=== PATIENT | male | born 1965 | race Caucasian/White ===

== ENCOUNTER 2019-10-01 22:22 | Emergency (ER) | payer MEDICARE, MEDICAID, SELFPAY ==
--- NOTE | ~2019-10-01 | XR_ITS ---
EXAMINATION: XR chest 2V DATE: 10/01/2019 23:36 INDICATION: Chest pain. TECHNIQUE: Frontal and lateral views of the chest were obtained on 3 radiographs. COMPARISON: CT abdomen and pelvis 02/18/2015 FINDINGS: The chest demonstrates clear lungs without pneumonia, pleural effusion, or pneumothorax. Th e heart size is normal. There are changes of anterior fusion procedure in cervical spine. IMPRESSION: 1. No acute cardiopulmonary disease. Reviewed, dictated and finalized at location A.
--- NOTE | 2019-10-01 22:44 | ECG_ITS ---
Measurements Intervals [place] Rate: 89 P: 255 [place]: 119 QRS: 75 QRSD: 94 T: 70 QT: 369 QTc: 450 Interpretive Statements ECTOPIC ATRIAL RHYTHM INCOMPLETE RIGHT BUNDLE BRANCH BLOCK NONSPECIFIC T-WAVE ABNORMALITY- LATERAL LEADS ABNORMAL ECG Electronically Signed On 10-03-2019 7:38:43 CDT by David Stokes D.O.
[2019-10-01 22:50] VITALS: BP 125/81; PULSE 89; RESP 16; TEMP 36.7; O2SAT 97
[2019-10-01] MEDS: ASPIRIN 81 MG CHEWABLE TABLET 324 MG PO (23:14)
[2019-10-01] MEDS: ONDANSETRON INJ 4 MG/2 ML VIAL IV PUSH (23:14)
[2019-10-01 23:23] LABS: D Dimer 0.19 mg/L (0.19-0.50); Partial Thromboplastin Time 24.5 SEC (22.3-31.6); Prothrombin Time 10.7 Seconds (9.64-11.0)
[2019-10-01 23:25] LABS: Lactic Acid 1.3 mmol/L (0.4-2.0)
[2019-10-01 23:26] LABS: BNP < 5.0 pg/mL (0-100)
[2019-10-01] MEDS: MORPHINE SULFATE 4 MG/ML INJ IV PUSH (23:32)
[2019-10-01 23:33] LABS: Alanine Aminotransferase 44 U/L (16-63); Albumin Level 3.4 g/dL (3.4-5.0); Alkaline Phosphatase 80 U/L (46-116); Anion Gap 10.8 mmol/L (7-16); Aspartate Amino Transferase 29 U/L (15-37); Bilirubin,Total 0.4 mg/dL (0.00-1.00); Blood Urea Nitrogen 18 mg/dL (7-18); CRP 0.3 mg/dL (0.0-0.9); Carbon Dioxide 30 mmol/L (21-32); Chloride 101 mmol/L (98-108); Estimated Glomerular Filt Rate > 60; Glucose 102 mg/dL (70-99); Lipase 163 U/L (73-393); Magnesium 1.8 mg/dL (1.8-2.4); Osmolality Calculated 287 mOsm/kg (285-295); Potassium 3.8 mmol/L (3.5-5.1); Sodium 138 mmol/L (136-145); Thyroid Stimulating Hormone 2.29 uIU/mL (0.36-3.74); Total Protein 7.4 g/dL (6.4-8.2); Troponin I < 0.02 ng/mL (0.00-0.056)
--- NOTE | 2019-10-01 23:35 | PC.NURSE ---
pt to xray via wheelchair
[2019-10-01 23:38] VITALS: PULSE 89
[2019-10-01] MEDS: KETOROLAC 30 MG/ML VIAL (*BKC) IV PUSH (23:58)
[2019-10-02 00:01] VITALS: BP 140/90; PULSE 93; RESP 18; TEMP 37.1; O2SAT 98
--- NOTE | 2019-10-02 00:04 | ED.CHESTPAIN ---
HPI - Chest Pain General Chief Complaint: Chest Pain Stated Complaint: chest pain Source: patient Mode of arrival: ambulatory Limitations: no limitations History of Present Illness HPI narrative: this is a 54-year-old gentleman that presents with chest pain atypical in nature with no radiation sharp with deep inspiration he rates at a 9/10 that started about 5 this afternoon in constant does not radiate to his back there is no diaphoresis no abdominal pain no nausea or vomiting no diarrhea constipation. There is no family history of heart disease patient does not have a personal history of heart disease, does have history of hyperlipidemia anxiety depression hypothyroidism. MD complaint: chest pain Onset (ago): hour(s) Timing of current episode: constant Prior episodes: No Onset: other ( With deep inspiration) Pain location: left chest Pain radiation: none Severity: moderate Pain scale (0-10): 9 Quality: sharp Relieving factors: medication-other Exacerbating factors: inspiration Related Data Home Medications Medication Instructions Recorded Confirmed cyclobenzaprine 10 mg PO TID PRN 10/01/19 10/01/19 epinephrine 0.3 ml IM PRN PRN 10/01/19 10/01/19 escitalopram oxalate 20 mg PO DAILY 10/01/19 10/01/19 hydrocodone-acetaminophen 1 tablet PO TID PRN 10/01/19 10/01/19 levothyroxine 75 mcg PO DAILY 10/01/19 10/01/19 olanzapine 20 mg PO DAILY 10/01/19 10/01/19 Allergies Allergy/AdvReac Type Severity Reaction Status Date / Time gabapentin AdvReac Intermediate Confusion Verified 09/25/17 13:24 Bumble Bee Allergy Severe Anaphylactic Uncoded 09/25/17 13:23 Shock Review of Systems Review of Systems: All systems reviewed & are unremarkable except as noted in HPI and below [facility] Past Medical History Medical History Depression HLD (hyperlipidemia) Hypothyroidism (acquired) Exam Const: General: no acute distress and alert Orientation/consciousness: patient oriented x3 HENMT: Head: normal to inspection Eyes: Conjunctivae: conjunctivae normal Pupils: Equal, round and reactive pupils present EOM: EOMs intact bilaterally Neck: Neck: normal visual inspection, no lymphadenopathy and no meningeal signs Chest: Chest palpation & inspection: normal inspection of the chest Resp: Effort & Inspection: normal respiratory effort Auscultation: clear to auscultation bilaterally Cardio: Rate: regular rate Rhythm: regular rhythm GI: Auscultation: normal bowel sounds Back/Spine/Pelvis: Back: no CVA tenderness Skin: General skin exam: normal color Rashes: no rashes Neuro: General: patient oriented x3 and moves all extremities Extrem: General: normal to inspection Course Course Emergency Course: after receiving 4 mg morphine the patient's pain level is ease to F 5/10 from a 11/30 and offered 30 mg IV Toradol. Patient is more comfortable no acute distress with some no shortness of breath no diaphoresis no nausea vomiting. Vital Signs Vital signs: Vital Signs Temperature 36.7 C 10/01/19 22:50 Pulse Rate 89 10/01/19 22:50 Respiratory Rate 16 10/01/19 22:50 Blood Pressure 125/81 10/01/19 22:50 Pulse Oximetry 97 10/01/19 22:50 Temperature 37.1 C 10/02/19 00:01 Pulse Rate 93 10/02/19 00:01 Respiratory Rate 18 10/02/19 00:01 Blood Pressure 140/90 10/02/19 00:01 Pulse Oximetry 98 10/02/19 00:01 MDM - Chest Pain Lab Data Attestation: I reviewed the patient's lab results. Result diagrams: 10/01/19 23:01 Labs: Lab Results 10/01/19 10/01/19 10/01/19 Range/Units 23:01 23:01 23:01 PT 10.7 (9.64-11.0) Seconds INR 1.0 APTT 24.5 (22.3-31.6) SEC D-Dimer 0.19 (0.19-0.50) mg/L Sodium 138 (136-145) mmol/L Potassium 3.8 (3.5-5.1) mmol/L Chloride 101 (98-108) mmol/L Carbon Dioxide 30 (21-32) mmol/L Anion Gap 10.8 (7-16) mmol/L BUN 18 (7-18) mg/dL Creatinine
[2019-10-02 00:09] VITALS: PULSE 73
[2019-10-02 00:14] LABS: Add Urine Microscopic? NO; Appearance Urine Clear (Clear); Bilirubin Urine Negative (Negative); Blood Urine Negative (Negative); Color Urine Yellow (Yellow); Glucose Urine UA Negative (Negative); Ketones Urine Negative (Negative); Leukocyte Esterase Ur Negative (Negative); Nitrate Urine Negative (Negative); Protein Urine Negative (Negative); Urobilinogen Urine 0.2 mg/dL (0.2-1.0); pH Urine 6.5 (5.0-8.0)
[2019-10-02 00:27] VITALS: BP 123/74; PULSE 78; RESP 20; TEMP 37.1; O2SAT 98
== END 2019-10-02 00:34 | disposition home or self-care (01) ==
PROVIDERS: Emergency Provider Emergency Medicine; PCP Physician Assistant
DX: R07.89 Other chest pain (principal); R09.1 Pleurisy; E78.5 Hyperlipidemia, unspecified; E03.9 Hypothyroidism, unspecified
CPT/HCPCS: 36415; 71046; 80053; 81003; 83605; 83690; 83735; 83880; 84443; 84484; 85380; 85610; 85730; 86140; 93005; 96374; 96375; 99284; A9270; J1885; J2270; J2405

== ENCOUNTER 2020-03-01 18:36 | Emergency (ER) | payer MEDICARE, MEDICAID, SELFPAY ==
--- NOTE | ~2020-03-01 | XR_ITS ---
EXAMINATION: XR foot LT 2V INDICATION: Left foot pain TECHNIQUE: Two views of the left foot are obtained. COMPARISON: 12/10/2018 FINDINGS: Previously identified orthopedic hardware has been largely removed. A retained screw fragme nt is seen in the calcaneus. 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 No acute fracture is identified. The soft tissues are unremarkable. IMPRESSION: 1. No acute osseous abnormality. Reviewed, dictated and finalized at location A. NERY OPERATOR [employer]
--- NOTE | ~2020-03-01 | XR_ITS ---
EXAMINATION: XR ankle LT 2V DATE: 03/01/2020 19:59 INDICATION: Left ankle pain TECHNIQUE: Two views of the left ankle are obtained.. COMPARISON: 12/10/2018 FINDINGS: There has been interval removal of much of the previously identified orthopedic hardware. A screw fragment persists in the calcaneus. There is severe chronic posttraumatic arthritis of the pro ximal and midfoot. No definite acute abnormality is identified. IMPRESSION: 1. No acute osseous abnormality. Reviewed, dictated and finalized at location A. UCTION OPERATOR
[2020-03-01 19:38] VITALS: BP 166/89; PULSE 82; RESP 18; TEMP 37.1; O2SAT 98
--- NOTE | 2020-03-01 20:23 | ED.LOWEXIN ---
HPI - Extremity Injury (Lower) General Chief Complaint: Extremity Injury, Lower Stated Complaint: ankle pain Source: patient Mode of arrival: ambulatory Limitations: no limitations History of Present Illness HPI Narrative: This is a 54-year-old gentleman with a history of some left ankle pain and foot pain after he inverted it approximately 1 to 2 days ago did not try anything [id number] for pain and there is some mild swelling and bruising on the lateral aspect of his left ankle and foot but has good pedal pulses and good range of note motion in his foot and ankle with a tenderness with palpation with no numbness or tingling. complaint: ankle injury and foot injury Onset (ago): day(s) Type of Injury: inversion Place: home Severity: moderate Severity scale (1-10): 6 Relieving factors: nothing Exacerbating factors: weight bearing and movement Other symptoms: none Related Data Home Medications Medication Instructions Recorded Confirmed cyclobenzaprine 10 mg PO TID PRN 10/01/19 10/01/19 epinephrine 0.3 ml IM PRN PRN 10/01/19 10/01/19 escitalopram oxalate 20 mg PO DAILY 10/01/19 10/01/19 hydrocodone-acetaminophen 1 tablet PO TID PRN 10/01/19 10/01/19 levothyroxine 75 mcg PO DAILY 10/01/19 10/01/19 olanzapine 20 mg PO DAILY 10/01/19 10/01/19 Allergies Allergy/AdvReac Type Severity Reaction Status Date / Time gabapentin AdvReac Intermediate Confusion Verified 09/25/17 13:24 Bumble Bee Allergy Severe Anaphylactic Uncoded 09/25/17 13:23 Shock Review of Systems Review of Systems: All systems reviewed & are unremarkable except as noted in HPI and below [facility] Past Medical History Medical History (Updated 03/01/20 @ 20:27 by Paul Francois MD) Depression HLD (hyperlipidemia) Hypothyroidism (acquired) Exam Const: General: no acute distress and alert Orientation/consciousness: patient oriented x3 HENMT: Head: normal to inspection Eyes: Conjunctivae: conjunctivae normal Pupils: Equal, round and reactive pupils present Neck: Neck: normal visual inspection, no lymphadenopathy and no meningeal signs Chest: Chest palpation & inspection: normal inspection of the chest Resp: Effort & Inspection: normal respiratory effort Auscultation: clear to auscultation bilaterally Cardio: Rate: regular rate Rhythm: regular rhythm GI: GI Palp: Yes Soft to palpation Auscultation: normal bowel sounds Back/Spine/Pelvis: Back: no CVA tenderness Skin: General skin exam: normal color Other: Bruising and mild swelling in the lateral malleoli of his left ankle and foot Neuro: General: patient oriented x3 Extrem: Other: tenderness in the lateral malleoli of his left ankle Psych: Mental Status: mental status grossly normal Affect: normal affect Course Course Emergency Course: patient given pain medication pain has improved, reviewed x-rays with the patient mention the were no fractures and to follow-up with primary ca Vital Signs Vital signs: Vital Signs Temperature 37.1 C 03/01/20 19:38 Pulse Rate 82 03/01/20 19:38 Respiratory Rate 18 03/01/20 19:38 Blood Pressure 166/89 H 03/01/20 19:38 Pulse Oximetry 98 03/01/20 19:38 Temperature 37.1 C 03/01/20 19:38 Pulse Rate 82 03/01/20 19:38 Respiratory Rate 18 03/01/20 19:38 Blood Pressure 166/89 H 03/01/20 19:38 Pulse Oximetry 98 03/01/20 19:38 Critical Care Time Critical Care Time Critical Care Time: No Discharge Plan Discharge Clinical Impression: Ankle sprain and strain Patient Disposition: Home, Self-Care Condition: Stable Instructions: Antibiotic Form, Ankle Sprain (ED) Additional Instructions: take medicine as prescribed and follow-up with primary care physician within 1 to 2 weeks further evaluation and treatment Prescriptions: New naproxen 500 mg tablet 500 mg PO BID Qty: 14 RF: 0 No Action cyclobenzaprine 10 mg tablet 10 mg PO TID PRN (Reason: Pain) RF: 0 hydrocodone-
[2020-03-01] MEDS: KETOROLAC (*BKC) 60 MG/2 ML VIAL IM (20:35)
== END 2020-03-01 21:00 | disposition home or self-care (01) ==
PROVIDERS: Emergency Provider Emergency Medicine; PCP Physician Assistant
DX: S93.402A Sprain of unspecified ligament of left ankle, initial encounter (principal)
CPT/HCPCS: 73600; 73620; 96372; 99283; J1885

== ENCOUNTER 2020-03-08 13:39 | Outpatient (CLI) | payer MEDICARE, MEDICAID, SELFPAY ==
--- NOTE | 2020-03-08 15:00 | NEURO_ITS ---
Impression: # Complains of numbness and weakness of upper extremities. # No Carpal Tunnel Syndrome. # No ulnar neuropathy. # Normal nerve conduction study. # Normal needle/EMG exam. # Clinical correlation recommended. Nerve Conduction Studies Anti Sensory Summary Table Stim Site NR Peak (ms) P-T Amp (?V) Site1 Site2 Delta-P (ms) Dist (cm) Roberto (m/s) Left Median Anti Sensory (2-3nd Digit) Wrist 2.9 34.9 Wrist 2-3nd Digit 2.9 14.0 48 Wrist 2.9 27.7 Wrist 2-3nd Digit 2.9 14.0 48 Right Median Anti Sensory (2-3nd Digit) Wrist 2.9 38.0 Wrist 2-3nd Digit 2.9 14.0 48 Wrist 2.9 39.5 Wrist 2-3nd Digit 2.9 14.0 48 Left Radial Anti Sensory (Base 1st Digit) Wrist 2.3 14.5 Wrist Base 1st Digit 2.3 0.0 Right Radial Anti Sensory (Base 1st Digit) Wrist 3.1 5.6 Wrist Base 1st Digit 3.1 0.0 Left Ulnar Anti Sensory (5th Digit) Wrist 2.7 41.5 Wrist 5th Digit 2.7 14.0 52 Right Ulnar Anti Sensory (5th Digit) Wrist 2.5 26.5 Wrist 5th Digit 2.5 14.0 56 Motor Summary Table Stim Site NR Onset (ms) O-P Amp (mV) Site1 Site2 Delta-0 (ms) Dist (cm) Roberto (m/s) Left Median Motor (Abd Poll Brev) Wrist 3.0 6.0 Elbow Wrist 5.2 30.0 58 Elbow 8.2 4.6 Right Median Motor (Abd Poll Brev) Wrist 3.5 2.8 Elbow Wrist 5.0 29.0 58 Elbow 8.5 1.6 Left Ulnar Motor (Abd Dig Minimi) Wrist 2.2 8.2 A Elbow Wrist 5.9 33.0 56 A Elbow 8.1 6.3 Right Ulnar Motor (Abd Dig Minimi) Wrist 2.6 4.7 A Elbow Wrist 5.5 31.0 56 A Elbow 8.1 3.9 F Wave Studies NR F-Lat (ms) L-R F-Lat (ms) Left Median (Mrkrs) (Abd Poll Brev) 28.79 0.85 Right Median (Mrkrs) (Abd Poll Brev) 29.64 0.85 Left Ulnar (Mrkrs) (Abd Dig Min) 28.23 0.12 Right Ulnar (Mrkrs) (Abd Dig Min) 28.34 0.12 EMG Side Muscle Nerve Root Ins Act Fibs Amp Dur Recrt Comment Right 1stDorInt Ulnar C8-T1 Nml Nml Nml Nml Nml Right Ext Indicis Radial (Post Int) C7-8 Nml Nml Nml Nml Nml Right Ext Digitorum Radial (Post Int) C7-8 Nml Nml Nml Nml Nml Right BrachioRad Radial C5-6 Nml Nml Nml Nml Nml Right PronatorTeres Median C6-7 Nml Nml Nml Nml Nml Right Abd Poll Brev Median C8-T1 Nml Nml Nml Nml Nml Left 1stDorInt Ulnar C8-T1 Nml Nml Nml Nml Nml Left Ext Indicis Radial (Post Int) C7-8 Nml Nml Nml Nml Nml Left Ext Digitorum Radial (Post Int) C7-8 Nml Nml Nml Nml Nml Left BrachioRad Radial C5-6 Nml Nml Nml Nml Nml Left PronatorTeres Median C6-7 Nml Nml Nml Nml Nml Left Abd Poll Brev Median C8-T1 Nml Nml Nml Nml Nml MTDD
== END 2020-03-08 13:40 | disposition home or self-care (01) ==
PROVIDERS: PCP Physician Assistant; Visit Provider Psychiatry & Neurology Neurology
DX: M62.9 Disorder of muscle, unspecified (principal)
CPT/HCPCS: 95886; 95911

== ENCOUNTER 2021-04-22 23:08 | Emergency (ER) | payer MEDICARE, MEDICAID, SELFPAY ==
--- NOTE | ~2021-04-22 | XR_ITS ---
EXAMINATION: XR chest 1V portable EXAM DATE: 04/22/2021 23:53 INDICATION: dyspnea,PUI COVID19, cough, fatigue. TECHNIQUE: Portable AP frontal chest x-ray was obtained. Comparison is made to prior examination from 10/01/2019. FINDINGS: Small amount of left basilar opacities, appearance most consistent with subsegmental atelec tasis. The lungs are otherwise clear. There are no pleural effusions. The cardiomediastinal silhoue tte is within normal limits. There is no pneumothorax suspected. The bones and soft tissues are unr emarkable. IMPRESSION: Small amount of left basilar opacities, appearance most consistent with subsegmental atel ectasis. Reviewed, dictated and finalized at location G. IT PRODUCT ANALYST IMPRESSION: Small amount of left basilar opacities, appearance most consistent with subsegmental atelectasis.
[2021-04-22 23:18] VITALS: BP 108/59; PULSE 69; RESP 18; TEMP 36.6; O2SAT 98
[2021-04-23] MEDS: SODIUM CHLORIDE 0.9% IV 1,000 ML 999 ML IV CONT (00:08)
[2021-04-23] MEDS: ACETAMINOPHEN 500 MG TABLET 1000 MG PO (00:08)
--- NOTE | 2021-04-23 00:34 | ED.GENADULT ---
HPI - General Adult General Chief complaint: Unspecified Stated complaint: SOB Time Seen by Provider: 04/23/21 00:34 Source: patient History of Present Illness HPI narrative: this is a 55-year-old gentleman presents with body aches nasal congestion with fever chills, and vaccinated for COVID currently no shortness of breath no nausea vomiting no abdominal pain no chest pain no diarrhea or constipation. Onset (ago): day(s) Severity: mild and moderate Related Data Home Medications Medication Instructions Recorded Confirmed epinephrine 0.3 ml IM PRN PRN 10/01/19 04/22/21 escitalopram oxalate 20 mg PO DAILY 10/01/19 04/22/21 levothyroxine 75 mcg PO DAILY 10/01/19 04/22/21 olanzapine 20 mg PO DAILY 10/01/19 04/22/21 lithium carbonate 150 mg capsule 150 mg PO QID 09/11/20 04/22/21 Allergies Allergy/AdvReac Type Severity Reaction Status Date / Time gabapentin AdvReac Intermediate Confusion Verified 04/22/21 23:17 Bumble Bee Allergy Severe Anaphylactic Uncoded 02/20/21 15:53 Shock Review of Systems Review of Systems: All systems reviewed & are unremarkable except as noted in HPI and below PMFSH Past Medical History Medical History Depression HLD (hyperlipidemia) Hypothyroidism (acquired) Surgical History Surgical History H/O arthrodesis Social History Social History Smoking status: Never smoker Alcohol intake: never Exam Const: General: cooperative, healthy appearing, comfortable, no acute distress and well developed HENMT: Head: normal to inspection Ears: hearing grossly normal bilaterally General nose exam: Normal external nose present Face and sinus: normal facial exam Mouth: Yes Normal oral and palatal mucosa present Throat: posterior oropharynx normal Eyes: General: appearance normal, both eyes and all related structures Conjunctivae: conjunctivae normal Sclera: sclerae normal Pupils: Equal, round and reactive pupils present Neck: Neck: normal visual inspection, full ROM, no lymphadenopathy and no meningeal signs Chest: Chest palpation & inspection: normal inspection of the chest Resp: Effort & Inspection: normal respiratory effort and able to speak in complete sentences Auscultation: clear to auscultation bilaterally Cardio: Jugular venous distension: no JVD Palpation: normal PMI Rate: regular rate Rhythm: regular rhythm GI: Inspection: normal to inspection Back/Spine/Pelvis: Back: no CVA tenderness Skin: General skin exam: normal color and no rashes or lesions noted Neuro: General: oriented to person, oriented to place and oriented to time Extrem: General: normal to inspection and full ROM Right lower extremity: normal to inspection Left lower extremity: normal to inspection Psych: Appearance: grossly normal and well kempt Course Course Emergency Course: Labs reviewed x-rays reviewed and t positive for COVID, patient received IV fluids and Tylenol. Vital Signs Vital signs: Vital Signs Temperature 36.6 C 04/22/21 23:18 Pulse Rate 69 04/22/21 23:18 Respiratory Rate 04/22/21 23:18 Blood Pressure 108/59 L 04/22/21 23:18 Pulse Oximetry 98 04/22/21 23:18 Temperature 36.6 C 04/22/21 23:18 Pulse Rate 69 04/22/21 23:18 Respiratory Rate 04/22/21 23:18 Blood Pressure 108/59 L 04/22/21 23:18 Pulse Oximetry 98 04/22/21 23:18 Medical Decision Making Vital Signs Vital Signs: Vital Signs Temperature 36.6 C 04/22/21 23:18 Pulse Rate 04/22/21 23:18 Respiratory Rate 04/22/21 23:18 Blood Pressure 108/59 L 04/22/21 23:18 Pulse Oximetry 98 04/22/21 23:18 Temperature 36.6 C 04/22/21 23:18 Pulse Rate 04/22/21 23:18 Respiratory Rate 04/22/21 23:18 Blood Pressure 108/59 L 04/22/21 23:18 Pulse Oximetry 98 04/22/21 23:18 Lab Da
[2021-04-23 00:39] LABS: Basophils Absolute Auto 0.02 K/mm3 (0.00-0.10); Basophils Percent Auto 0.4 % (0.0-1.0); Eosinophils Absolute Auto 0.23 K/mm3 (0.02-0.50); Eosinophils Percent Auto 4.2 % (1.0-6.0); Hematocrit 37.1 % (40.0-54.0); Hemoglobin 12.1 g/dL (14.0-18.0); Immature Granulocyte Absolute 0.03 K/mm3 (0.00-0.00); Immature Granulocyte Percent A 0.5 % (0.0-0.0); Immature Platelet Fraction Pct 7.9 % (1.0-7.0); Lymphocytes Absolute Auto 1.77 K/mm3 (1.10-4.50); Lymphocytes Percent Auto 32.2 % (18.0-42.0); Mean Corpuscular HGB Conc 32.6 g/dL (32.0-36.0); Mean Corpuscular Volume 95.1 fL (78.0-102.0); Mean Platelet Volume 12.4 fl (8.7-11.0); Monocytes Absolute Auto 0.73 K/mm3 (0.10-0.90); Monocytes Percent Auto 13.3 % (2.0-11.0); Neutrophils Absolute Auto 2.7 K/mm3 (1.7-7.2); Neutrophils Percent Auto 49.4 % (50.0-70.0); Red Cell Distribution Width 12.4 % (11.6-14.4); White Blood Count 5.5 K/mm3 (4.8-10.8)
[2021-04-23 01:05] LABS: Platelet Count Result 72 K/mm3 (150-420)
[2021-04-23 01:09] LABS: Influenza A QL RT-PCR Negative (Negative); Influenza B QL RT-PCR Negative (Negative); SARS-CoV-2 RNA PCR Positive (Negative)
[2021-04-23 01:16] LABS: Alanine Aminotransferase 30 U/L (16-63); Albumin Level 3.9 g/dL (3.4-5.0); Alkaline Phosphatase 135 U/L (46-116); Anion Gap 10 mmol/L (8-16); Aspartate Amino Transferase 24 U/L (15-37); Bilirubin,Total 0.3 mg/dL (0.00-1.00); Blood Urea Nitrogen 24 mg/dL (7-18); Calcium 8.8 mg/dL (8.5-10.1); Carbon Dioxide 21 mmol/L (21-32); Chloride 99 mmol/L (98-108); Estimated CRCL calculation 50 ml/min; Estimated Glomerular Filt Rate 42; Glucose 84 mg/dL (70-99); Osmolality Calculated 273 mOsm/kg (285-295); Potassium 4.2 mmol/L (3.5-5.1); Sodium 130 mmol/L (136-145); Total Protein 7.6 g/dL (6.4-8.2)
[2021-04-23 01:20] LABS: Add Urine Microscopic? NO; Appearance Urine Clear (Clear); Bilirubin Urine Negative (Negative); Blood Urine Negative (Negative); Color Urine Light Yellow (Yellow); Glucose Urine UA Negative (Negative); Ketones Urine Negative (Negative); Leukocyte Esterase Ur Negative (Negative); Nitrate Urine Negative (Negative); Protein Urine Negative (Negative); Specific Grav Ur <= 1.005 (1.010-1.020); Urobilinogen Urine 0.2 mg/dL (0.2-1.0)
[2021-04-23 01:58] VITALS: BP 110/78; PULSE 64; RESP 16; TEMP 36.7; O2SAT 99
== END 2021-04-23 02:00 | disposition home or self-care (01) ==
PROVIDERS: Emergency Provider Emergency Medicine; PCP Physician Assistant
DX: U07.1 COVID-19 (principal); E78.5 Hyperlipidemia, unspecified; E03.9 Hypothyroidism, unspecified
CPT/HCPCS: 36415; 36600; 71045; 80053; 81003; 85025; 85055; 87502; 96360; 96361; 99283; C9803; J7030; U0003; U0005

== ENCOUNTER 2021-04-30 16:12 | Inpatient (IN) | payer MEDICARE, MEDICAID, SELFPAY ==
[2021-04-30] VITALS (8 sets, daily range): BP systolic 89–111; BP diastolic 43–59; PULSE 65–79; RESP 16–22; TEMP 36.4–37.4; O2SAT 97–100; BMI 26.8
--- NOTE | ~2021-04-30 | XR_ITS ---
EXAMINATION: XR chest 1V portable DATE: 04/30/2021 18:05 INDICATION: Central chest pain. Weakness. TECHNIQUE: A single frontal view of the chest was obtained. COMPARISON: Chest single view 04/22/2021, CT abdomen and pelvis 02/18/2015 FINDINGS: There is mild atelectasis at left lung base. No pleural effusion or pneumothorax. The heart size is normal. There are changes of anterior fusion procedure in cervical spine. IMPRESSION: 1. Mild atelectasis at left lung base. Reviewed, dictated and finalized at location A. LAYER DRAINAGE
--- NOTE | ~2021-04-30 | XR_ITS ---
EXAMINATION: XR chest 1V portable DATE: 05/01/2021 16:39 INDICATION: Syncope. COVID-19 positive. TECHNIQUE: A single frontal view of the chest was obtained. COMPARISON: Chest single view 04/30/2021, CT abdomen and pelvis 02/18/2015 FINDINGS: There are airspace opacities at left lung base. No pleural effusion or pneumothorax. The he art size is normal. IMPRESSION: 1. Stable airspace opacities at left lung base, consistent with atelectasis or less likely pneumonia. Reviewed, dictated and finalized at location E. TYPE ARTIST
--- NOTE | ~2021-04-30 | CT_ITS ---
EXAMINATION: CT brain wo con EXAM DATE: 05/01/2021 10:27 INDICATION: Cognitively AMS, delayed and slurred speech, hand tremors . TECHNIQUE: Spiral CT of the head was performed without contrast. Axial, coronal and sagittal images were reviewed. The dose-length product (DLP) for this examination was 605.33 mGy-cm. The exposure w as tailored according to patient size, and iterative reconstruction (ASIR) was used as additional dos e reduction technique. There is no prior study for comparison. FINDINGS: There is no acute intraparenchymal hemorrhage. No evidence of intraparenchymal brain mass lesion. No evidence of acute infarction. There is no mass effect or midline shift. The ventricles are normal in size. There are no extra-axial collections. There are no acute calvarial fractures. T he orbits are unremarkable. Soft tissue is unremarkable. The visualized sinuses and mastoid air william ls are well aerated. IMPRESSION: No acute intracranial findings. Reviewed, dictated and finalized at location B. AI CULTURIST
--- NOTE | 2021-04-30 16:17 | ED.WEAKNESS ---
HPI - Weakness General Chief complaint: Syncope Stated complaint: AMB Time Seen by Provider: 04/30/21 16:24 Source: patient Mode of arrival: EMS Limitations: no limitations History of Present Illness HPI Narrative: 53-year-old man history of hyperlipidemia brought to the emergency department by EMS after his called 911 because he was weak and falling. Patient states that he did not lose consciousness has had several falls over the last few days due to weakness. He was diagnosed with COVID 1 week ago. He also stated that his blood oxygen levels at home were low. he states that he has been having some intermittent chest pressure over the last 2 days. He denies vomiting, diarrhea, seizures, shortness of breath. He had left calcaneal surgery 1 month ago. MD Complaint: generalized weakness and lack of energy Onset (ago): day(s) (2) Duration: constant and progressively worsening Location: generalized Migration: none Severity: moderate Quality: other (pressure) Relieving factors: none Exacerbating factors: none Context: recent illness Associated symptoms: chest pain Related Data Home Medications Medication Instructions Recorded Confirmed epinephrine 0.3 ml IM PRN PRN 10/01/19 04/30/21 escitalopram oxalate 20 mg PO DAILY 10/01/19 04/30/21 levothyroxine 75 mcg PO DAILY 10/01/19 04/30/21 olanzapine 20 mg PO DAILY 10/01/19 04/30/21 lithium carbonate 150 mg capsule 150 mg PO QID 09/11/20 04/30/21 amlodipine 5 mg PO DAILY 04/30/21 04/30/21 lisinopril 20 mg PO DAILY 04/30/21 04/30/21 Allergies Allergy/AdvReac Type Severity Reaction Status Date / Time gabapentin AdvReac Intermediate Confusion Verified 04/30/21 16:29 Bumble Bee Allergy Severe Anaphylactic Uncoded 04/30/21 16:29 Shock Review of Systems Review of Systems: All systems reviewed & are unremarkable except as noted in HPI and below Constitutional: Constitutional: Denies chills, Reports fatigue, Denies fever(s) and Reports weakness Eyes: Eyes: Denies change in vision ENT: Denies nasal congestion and Denies sore throat Cardiovascular: Cardiovascular: Reports chest pain and Denies radiating jaw, neck or arm pain Respiratory: Respiratory: Denies cough, Denies dyspnea and Denies wheezing Gastrointestinal: Gastrointestinal: Denies abdominal pain, Denies diarrhea, Denies nausea and Denies vomiting Musculoskeletal: Musculoskeletal: Reports back pain (chronic cervical pain), Reports arthralgias and Denies joint swelling Integumentary/Breasts: Skin/Breast: Denies pruritus, Denies erythema and Denies rash Neurologic: Denies vertigo, Reports dizziness, Denies syncope and Reports weakness PMFSH Past Medical History Medical History Depression HLD (hyperlipidemia) Hypothyroidism (acquired) Surgical History Surgical History H/O arthrodesis Social History Social History Smoking status: Never smoker Alcohol intake: never Exam Const: General: alert and ill appearing (mild) acutely Nutritional Appearance: well nourished Orientation/consciousness: patient oriented x3 Limitations: no limitations Other: for [id number] acute distress. HENMT: Head: normal to inspection Ears: external ears normal, TM's normal bilaterally and EAC's normal General nose exam: Normal nares present Face and sinus: normal facial exam Mouth: Yes moist mucous membranes Throat: posterior oropharynx normal Eyes: Conjunctivae: conjunctivae normal Pupils: Equal, round and reactive pupils present EOM: EOMs intact bilaterally Resp: Effort & Inspection: normal respiratory effort and not labored Auscultation: clear to auscultation bilaterally, no rales, no rhonchi and no wheezes Cardio: Rate: regular rate Rhythm: regular rhythm Heart sounds: no murmurs GI: GI Palp: Yes Soft to palpation and No Tendernes
--- NOTE | 2021-04-30 16:19 | ECG_ITS ---
Measurements Intervals [place] Rate: 66 P: 60 [place]: 172 QRS: 68 QRSD: 95 T: 41 QT: 420 QTc: 441 Interpretive Statements SINUS RHYTHM INCOMPLETE RIGHT BUNDLE BRANCH BLOCK BASELINE ARTIFACT- I, II, AVR, AVL, AVF, V1-V6 BORDERLINE ECG Electronically Signed On 04-30-2021 16:48:08 ENGLISH PROFESSOR by David Stokes D.O.
[2021-04-30] MEDS: SODIUM CHLORIDE 0.9% IV 1,000 ML 999 ML IV CONT (16:40)
[2021-04-30 16:58] LABS: Basophils Absolute Auto 0.04 K/mm3 (0.00-0.10); Basophils Percent Auto 0.3 % (0.0-1.0); Eosinophils Absolute Auto 0.57 K/mm3 (0.02-0.50); Eosinophils Percent Auto 4.2 % (1.0-6.0); Hematocrit 35.1 % (40.0-54.0); Hemoglobin 11.4 g/dL (14.0-18.0); Immature Granulocyte Absolute 0.05 K/mm3 (0.00-0.00); Immature Granulocyte Percent A 0.4 % (0.0-0.0); Lymphocytes Percent Auto 12.4 % (18.0-42.0); Mean Corpuscular HGB Conc 32.5 g/dL (32.0-36.0); Mean Corpuscular Hemoglobin 31.2 pg (27.0-31.0); Mean Corpuscular Volume 96.2 fL (78.0-102.0); Mean Platelet Volume 11.8 fl (8.7-11.0); Monocytes Percent Auto 7.3 % (2.0-11.0); Neutrophils Absolute Auto 10.4 K/mm3 (1.7-7.2); Neutrophils Percent Auto 75.4 % (50.0-70.0); Platelet Count Result 252 K/mm3 (150-420); Red Blood Count 3.65 M/mm3 (4.70-6.10); Red Cell Distribution Width 12.4 % (11.6-14.4); White Blood Count 13.7 K/mm3 (4.8-10.8)
[2021-04-30] MEDS: ASPIRIN 81 MG CHEWABLE TABLET 243 MG PO (16:58)
[2021-04-30] MEDS: ONDANSETRON INJ 4 MG/2 ML VIAL IV PUSH (16:58)
--- NOTE | 2021-04-30 17:04 | PC.NURSE ---
Pt attempted to urinate. Pt unable to at this time. Will attempt again
[2021-04-30 17:18] LABS: D Dimer 0.32 mg/L (0.19-0.50); INR 1.1; Partial Thromboplastin Time 23.4 SEC (23.90-30.70); Prothrombin Time 11.2 Seconds (9.50-12.10)
[2021-04-30 17:50] LABS: Alanine Aminotransferase 20 U/L (16-63); Albumin Level 3.8 g/dL (3.4-5.0); Alkaline Phosphatase 160 U/L (46-116); Anion Gap 11 mmol/L (8-16); Aspartate Amino Transferase 15 U/L (15-37); Bilirubin,Total 0.4 mg/dL (0.00-1.00); Blood Urea Nitrogen 40 mg/dL (7-18); Calcium 9.3 mg/dL (8.5-10.1); Carbon Dioxide 23 mmol/L (21-32); Chloride 98 mmol/L (98-108); Estimated CRCL calculation 17 ml/min; Estimated Glomerular Filt Rate 12; Glucose 92 mg/dL (70-99); Osmolality Calculated 283 mOsm/kg (285-295); Potassium 4.6 mmol/L (3.5-5.1); Sodium 132 mmol/L (136-145); Total Protein 7.3 g/dL (6.4-8.2); Troponin I 5.5 ng/L (0.00-60.4)
--- NOTE | 2021-04-30 17:58 | PC.NURSE ---
Pt stood next to stretcher to attempt to urinate. Pt still unable to urinate but RN noted less tremors and pt was able to stand longer.
[2021-04-30 18:00] LABS: Magnesium 2.5 mg/dL (1.8-2.4)
--- NOTE | 2021-04-30 18:03 | PC.NURSE ---
ERP made aware of pts elevated Cretinine level.
--- NOTE | 2021-04-30 19:13 | PC.NURSE ---
Pt provided dinner for tonight. Pt aware waiting to give report. Pts was updated on plan for admission.
[2021-04-30 19:34] LABS: Add Urine Microscopic? NO; Appearance Urine Clear (Clear); Bilirubin Urine Negative (Negative); Blood Urine Negative (Negative); Color Urine Light Yellow (Yellow); Glucose Urine UA Negative (Negative); Ketones Urine Negative (Negative); Leukocyte Esterase Ur Negative (Negative); Nitrate Urine Negative (Negative); Protein Urine Negative (Negative); Specific Grav Ur <= 1.005 (1.010-1.020); Urobilinogen Urine 0.2 mg/dL (0.2-1.0); pH Urine 5.5 (5.0-8.0)
[2021-04-30] MEDS: OLANZapine 5 MG TABLET 20 MG PO (21:15)
[2021-04-30] MEDS: BACLOFEN 10 MG TABLET PO (21:23)
[2021-04-30] MEDS: DEXTROSE 5%/0.9% SOD CHL 1,000 ML 125 ML IV CONT (21:24)
[2021-04-30] MEDS: HYDROcodone/acetaminophen (*CRX) 10-325 MG TABLET 1 TAB PO (21:24)
[2021-04-30 23:03] LABS: Basophils Absolute Auto 0.03 K/mm3 (0.00-0.10); Basophils Percent Auto 0.3 % (0.0-1.0); Eosinophils Absolute Auto 0.51 K/mm3 (0.02-0.50); Eosinophils Percent Auto 4.5 % (1.0-6.0); Hematocrit 29.5 % (40.0-54.0); Hemoglobin 9.8 g/dL (14.0-18.0); Immature Granulocyte Absolute 0.05 K/mm3 (0.00-0.00); Immature Granulocyte Percent A 0.4 % (0.0-0.0); Lymphocytes Absolute Auto 1.99 K/mm3 (1.10-4.50); Lymphocytes Percent Auto 17.7 % (18.0-42.0); Mean Corpuscular HGB Conc 33.2 g/dL (32.0-36.0); Mean Corpuscular Hemoglobin 31.4 pg (27.0-31.0); Mean Corpuscular Volume 94.6 fL (78.0-102.0); Mean Platelet Volume 11.4 fl (8.7-11.0); Neutrophils Absolute Auto 7.8 K/mm3 (1.7-7.2); Neutrophils Percent Auto 69.1 % (50.0-70.0); Platelet Count Result 212 K/mm3 (150-420); Red Blood Count 3.12 M/mm3 (4.70-6.10); Red Cell Distribution Width 12.2 % (11.6-14.4); White Blood Count 11.3 K/mm3 (4.8-10.8)
[2021-04-30 23:24] LABS: Troponin I 5.9 ng/L (0.00-60.4)
[2021-05-01] VITALS (15 sets, daily range): BP systolic 60–103; BP diastolic 38–72; PULSE 55–73; RESP 18–21; TEMP 36.1–37; O2SAT 93–99
[2021-05-01] MEDS: DEXTROSE 5%/0.9% SOD CHL 1,000 ML 125 ML IV CONT (05:38)
[2021-05-01] MEDS: LEVOTHYROXINE SODIUM 75 MCG TABLET PO (05:38)
[2021-05-01 06:54] LABS: Hemoglobin 11.3 g/dL (14.0-18.0); Red Blood Count 3.64 M/mm3 (4.70-6.10)
[2021-05-01 06:55] LABS: Basophils Percent Auto 0.4 % (0.0-1.0); Eosinophils Percent Auto 5.1 % (1.0-6.0); Hematocrit 35.1 % (40.0-54.0); Immature Granulocyte Absolute 0.04 K/mm3 (0.00-0.00); Immature Granulocyte Percent A 0.4 % (0.0-0.0); Mean Corpuscular HGB Conc 32.2 g/dL (32.0-36.0); Mean Corpuscular Volume 96.4 fL (78.0-102.0); Mean Platelet Volume 12.2 fl (8.7-11.0); Monocytes Percent Auto 7.8 % (2.0-11.0); Neutrophils Percent Auto 65.3 % (50.0-70.0); Platelet Count Result 244 K/mm3 (150-420); Red Cell Distribution Width 12.3 % (11.6-14.4)
[2021-05-01 06:56] LABS: Basophils Absolute Auto 0.04 K/mm3 (0.00-0.10); Eosinophils Absolute Auto 0.56 K/mm3 (0.02-0.50); Lymphocytes Absolute Auto 2.31 K/mm3 (1.10-4.50); Monocytes Absolute Auto 0.86 K/mm3 (0.10-0.90); Neutrophils Absolute Auto 7.2 K/mm3 (1.7-7.2)
[2021-05-01 07:01] LABS: Alanine Aminotransferase 16 U/L (16-63); Albumin Level 3.5 g/dL (3.4-5.0); Alkaline Phosphatase 153 U/L (46-116); Anion Gap 11 mmol/L (8-16); Aspartate Amino Transferase 14 U/L (15-37); Bilirubin,Total 0.4 mg/dL (0.00-1.00); Blood Urea Nitrogen 36 mg/dL (7-18); Calcium 8.9 mg/dL (8.5-10.1); Carbon Dioxide 22 mmol/L (21-32); Chloride 102 mmol/L (98-108); Estimated CRCL calculation 22 ml/min; Estimated Glomerular Filt Rate 17; Glucose 89 mg/dL (70-99); Magnesium 2.7 mg/dL (1.8-2.4); Osmolality Calculated 287 mOsm/kg (285-295); Potassium 3.7 mmol/L (3.5-5.1); Sodium 135 mmol/L (136-145); Total Protein 6.9 g/dL (6.4-8.2)
[2021-05-01] MEDS: SODIUM CHLORIDE 0.9% IV 1,000 ML 999 ML IV CONT (08:05)
[2021-05-01] MEDS: NALOXONE HCL 0.4 MG/ML VIAL IV PUSH (08:15)
[2021-05-01] MEDS: LORazepam INJ (*CRX) 2 MG/ML VIAL 1 MG IV PUSH (08:50)
[2021-05-01 09:19] LABS: Hematocrit 32.9 % (40.0-54.0); Hemoglobin 10.9 g/dL (14.0-18.0); Mean Corpuscular HGB Conc 33.1 g/dL (32.0-36.0); Mean Corpuscular Hemoglobin 31.8 pg (27.0-31.0); Mean Corpuscular Volume 95.9 fL (78.0-102.0); Mean Platelet Volume 12.4 fl (8.7-11.0); Platelet Count Result 206 K/mm3 (150-420); Red Blood Count 3.43 M/mm3 (4.70-6.10); Red Cell Distribution Width 12.3 % (11.6-14.4); White Blood Count 11.7 K/mm3 (4.8-10.8)
[2021-05-01 09:32] LABS: Alanine Aminotransferase 19 U/L (16-63); Albumin Level 3.5 g/dL (3.4-5.0); Alkaline Phosphatase 148 U/L (46-116); Anion Gap 10 mmol/L (8-16); Aspartate Amino Transferase 17 U/L (15-37); Bilirubin,Total 0.3 mg/dL (0.00-1.00); Blood Urea Nitrogen 34 mg/dL (7-18); Carbon Dioxide 22 mmol/L (21-32); Chloride 104 mmol/L (98-108); Estimated CRCL calculation 23 ml/min; Estimated Glomerular Filt Rate 17; Glucose 103 mg/dL (70-99); Osmolality Calculated 289 mOsm/kg (285-295); Potassium 4.2 mmol/L (3.5-5.1); Sodium 136 mmol/L (136-145); Total Protein 6.8 g/dL (6.4-8.2)
[2021-05-01 09:38] LABS: Magnesium 2.7 mg/dL (1.8-2.4)
[2021-05-01] MEDS: PANTOPRAZOLE SODIUM IV 40 MG VIAL IV PUSH (11:16)
[2021-05-01] MEDS: ENOXAPARIN 30 MG/0.3 ML SYRINGE SUB-Q (11:16)
[2021-05-01] MEDS: BACLOFEN 10 MG TABLET PO (13:23)
[2021-05-01 13:42] LABS: Lactic Acid Reflex 0.6 mmol/L (0.4-2.0)
[2021-05-01 13:49] LABS: NT Pro B Type Natriuretic Pept 72 pg/mL (0-125); Troponin I 5.3 ng/L (0.00-60.4)
[2021-05-01 13:57] LABS: Free T4 Free Thyroxine Reflex 1.14 ng/dL (0.76-1.46); Thyroid Stimulating Hormone Reflex 4.15 u/IU/mL (0.36-3.74)
[2021-05-01 14:24] LABS: Base Excess ABG -2.2 mmol/L (0-2); HCO3 ABG 22.5 mmol/L (23-29); Oxygen Content ABG 14.2 %vol (16.0-22.0); Oxygen Saturation ABG 94.5 % (95-97); Oxyhemoglobin 93.9 % (94-100); PCO2 ABG 38.2 mmHg (35-45); PO2 ABG 75.6 mmHg (80-90); Total Hemoglobin 10.7 g/dL (12.0-18.0); pH ABG 7.39 (7.35-7.45)
[2021-05-01 14:25] LABS: Device ROOM AIR; Modified Allen's Test Pass; Site Drawn RIGHT RADIAL
[2021-05-01 14:28] LABS: Amphetamine Screen Urine Negative (Negative); Barbiturate Screen Urine Negative (Negative); Benzodiazepines Screen Urine Negative (Negative); Cannabinoid Screen Urine Negative (Negative); Cocaine Screen Urine Negative (Negative); Methadone Screen Urine Negative (Negative); Opiate Screen Urine Positive (Negative); Phencyclidine Screen Urine Negative (Negative)
[2021-05-01 14:55] LABS: Ammonia 18 umol/L (11-32)
[2021-05-01 15:22] LABS: Vitamin B12 291 pg/mL (193-986)
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
--- NOTE | 2021-05-01 17:30 | PC.NURSE ---
Called report to [facility]. Spoke with RENUKA Chin. All questions answered.
--- NOTE | 2021-05-01 17:42 | ECG_ITS ---
Measurements Intervals [place] Rate: 69 P: [place]: 0 QRS: 71 QRSD: 103 T: 39 QT: 424 QTc: 455 Interpretive Statements SINUS OR ECTOPIC ATRIAL RHYTHM BASELINE ARTIFACT- II, III, AVL AVF, V4 BORDERLINE ECG Electronically Signed On 05-01-2021 19:49:47 CLINICAL TRIALS ASSISTANT by David Stokes D.O.
--- NOTE | 2021-05-01 18:10 | PC.NURSE ---
Report given to AAS. All questions answered. Pt assisted to stretcher for transfer to [facility] ICU Bed4.
[2021-05-03 10:06] LABS: Lithium 2.54 mmol/L (0.60-1.20)
== END 2021-05-01 18:10 | disposition short-term general hospital (02) | DRG 682 ==
LOC: CHSED 16:14 → CHS2ND 18:36
PROVIDERS: Nurse Practitioner; Nurse Practitioner Family; Admitting Provider Emergency Medicine; Emergency Provider Emergency Medicine; PCP Physician Assistant; Visit Provider Emergency Medicine
DX: N17.9 Acute kidney failure, unspecified (principal); U07.1 COVID-19; R07.89 Other chest pain; E86.1 Hypovolemia; Z98.1 Arthrodesis status; R53.1 Weakness; I95.9 Hypotension, unspecified; E83.41 Hypermagnesemia; E78.5 Hyperlipidemia, unspecified; E03.9 Hypothyroidism, unspecified; F32.A Depression, unspecified; N19 Unspecified kidney failure
CPT/HCPCS: 36415; 36600; 70450; 71045; 80053; 80178; 80307; 81003; 82140; 82607; 82805; 83605; 83735; 83880; 84439; 84443; 84484; 85025; 85027; 85380; 85610; 85730; 87040; 93005; 96361; 96374; 99285; A9270; C9113; J1650; J2060; J2310; J2405; J7030; J7042

== ENCOUNTER 2021-05-01 20:32 | Inpatient (IN) | payer MEDICARE, MEDICAID, SELFPAY ==
--- NOTE | ~2021-05-01 | US_ITS ---
EXAMINATION: US renal BI DATE: 05/02/2021 10:48 INDICATION: Acute kidney injury TECHNIQUE: Multiple ultrasound grayscale images of the kidneys were obtained. COMPARISON: 02/18/2015 FINDINGS: The right kidney measures 10.4 x 5.7 x 6.4 cm. The left kidney measures 10.5 x 5.8 x 6.2 cm. The kidn eys demonstrate normal echogenicity. There is no hydronephrosis in either kidney. No stones identifi ed. The bladder is decompressed around a Dejesus catheter which limits evaluation. IMPRESSION: 1. Normal kidneys without hydronephrosis. Reviewed, dictated and finalized at location A. DELIVERY DRIVER
--- NOTE | 2021-05-01 18:51 | PC.NURSE ---
This patient, Baljeet Herman, was admitted to Intensive Care Unit-4 at 18:51. Patient/family oriented to hospital policies and general routines including ID bracelet, bed and alarms, visiting hours, pain management, procedures, bathroom and other care routines, personal items, smoking policy, room service/diet, and visiting hours. Information on how to activate the Rapid Response Team has been discussed. Patient/Family are encouraged to report perceived risks to care and to ask questions if they do not understand what they are told or what they should do.
[2021-05-01 19:51] VITALS: BMI 20.1
[2021-05-01 20:00] VITALS: BP 116/63; PULSE 69; PULSE 88; RESP 18; TEMP 37.1; O2SAT 100
--- NOTE | 2021-05-01 20:30 | PM.IMHP ---
H&P: HPI History of Present Illness Date/Time: 05/01/21 18:30 Chief Complaint: Acute kidney injury, confusion, hypotension. Narrative: This is a 55-year-old male with history of colon cancer, hypertension, hyperlipidemia, hypothyroidism, chronic pain syndrome on long-term opiates, and bipolar disorder who is being directly admitted from the medical floor at the [facility] for further treatment and evaluation of acute kidney injury, confusion, and hypotension. He was diagnosed with COVID-19 on 04/23/2021 after presenting to an outside ER with several days body aches, congestion, fever, and chills. BUN and creatinine at that time were 24 and 1.69 respectively for which he was hydrated and discharged home. Unfortunately since that time his appetite and oral intake has been poor because everything tastes like metal. The past several days he has felt extremely weak, lightheaded, and dizzy and last evening he had a near syncopal episode and was seen again in the ER where he was found to have worsening renal function with a creatinine of 4.93. He was admitted to the medical floor and was started on IV fluids with improvement in his labs this morning but on morning rounds he was reportedly lethargic, hypotensive, and confused. He received hydrocodone along with baclofen and trazodone last evening and thus he was given a dose of Narcan and IV fluid bolus with some improvement. I was called about a possible transfer at that time and upon reviewing the patient's chart, it was felt that he would benefit from continued IV fluid rehydration and that he could probably remain at that facility. A few hours thereafter I received a phone call that a rapid response had been called on the patient due to hypotension with systolic blood pressures in the 60s and that he was going to be started on vasopressors. I was also told that his heart rate was in the 30s and their intention was to put him on temporary pacers. Dr. Waterman discussed the case with the provider from the outside facility and he accepted transfer to the ICU. I saw the patient on arrival to the ICU and he is alert and oriented x4 with the following vital signs: Temperature 98.7?, blood pressure 116/63, pulse 88, respiratory rate 18, SpO2 100% on room air. He seems mildly ill and a bit anxious. He has some tremors in the upper extremities which apparently has been evaluated by a neurologist in the past though he feels he has more tremulous than usual. With further questioning he mentions that his pain management physician has been trying to get him off of hydrocodone and that he has had a significant decrease, now taking 10 mg, 3 times a day though he continues to take baclofen 10 mg, 3 times a day. He has a history of alcohol and drug abuse but has been sober for over 12 years. he has not had a recent fever to his knowledge. He denies headache, auditory and visual changes, vertigo, focal weakness, paresthesias, chest pain, pleuritic pain, shortness of breath, abdominal pain, nausea, vomiting, diarrhea, and dysuria. He has not noticed a significant decrease in urine output. He has prescriptions for naproxen 500 mg twice daily but he denies taking more than prescribed. Review of Systems Review of Systems: 12 systems were reviewed and are negative except for as per HPI. [facility] Past Medical History Medical History (Updated 05/02/21 @ 00:06 by Britt Bhatia PA-C) Bipolar disorder Cervical radiculopathy Chronic pain syndrome Chronic prescription opiate use Colon cancer Status post partial colectomy. COVID-19 (04/24/21) Depression Hyperlipidemia Hypertension Hypothyroidism Surgical History Surgical History (Updated 05/01/21 @ 21:38 by Britt Bhatia PA-C) History of appendectomy History of arthroscopy of right shoulder History of cervical spinal surgery History of inguinal hernia repair History of nasal surgery History of partial colectomy History of repair of left rotator cuff History of
--- NOTE | 2021-05-01 20:32 | PCCCNOTE ---
Called Minoo KELLY about direct admission, confirmed Inpatient order to ICU under Sofia, Order placed
[2021-05-01] MEDS: LACTATED RINGERS 1,000 ML 100 ML IV CONT (21:15)
[2021-05-01 22:00] VITALS: PULSE 73
[2021-05-01] MEDS: HYDROcodone/acetaminophen (*CRX) 10-325 MG TABLET 1 TAB PO (22:20)
[2021-05-01] MEDS: LITHIUM CARBONATE 300 MG CAPSULE PO (22:21)
--- NOTE | 2021-05-01 22:56 | PC.NURSE ---
21:0 Patients , Amy, called. She was updated on patient's condition, and all questions answered. She will check on patient in the a.m.
--- NOTE | 2021-05-01 22:56 | PC.NURSE ---
22:30 This RN given critical lab value by Yessica GRAYSON. Discussed with charge nurse, Christopher GRAYSON, and was advised to notify physician in a.m. upon his arrival. Will continue to monitor patient's condition.
--- NOTE | 2021-05-01 23:00 | PC.NURSE ---
Addendum entered by León Durbin RN 05/02/21 00:26: 00:05 Attempted to call EFRAIN De La Torre, back as requested. No answer, but pacu nurse is aware of patient's lithium level. Will continue to monitor. Addendum entered by León Durbin RN 05/02/21 00:23: 23:45 EFRAIN De La Torre, called to discuss changing patient's fluids as well as lithium level. Requested this RN contact Dr. Waterman. This was done, and patient's lithium level discussed as well as patient being bradycardic while sleeping. No new orders at this time. Will continue to monitor patient. Original Note: 21:34 Tobacco Sprayer contacted regarding patient's home medications. New orders carried out.
[2021-05-02] VITALS (13 sets, daily range): BP systolic 94–132; BP diastolic 61–73; PULSE 51–97; RESP 14–20; TEMP 36.5–37.2; O2SAT 100
[2021-05-02] MEDS: LACTATED RINGERS 1,000 ML 100 ML IV CONT (05:01)
[2021-05-02] MEDS: HYDROcodone/acetaminophen (*CRX) 10-325 MG TABLET 1 TAB PO (05:02)
[2021-05-02] MEDS: LEVOTHYROXINE SODIUM 75 MCG TABLET PO (05:32)
--- NOTE | 2021-05-02 06:05 | ECG_ITS ---
Measurements Intervals [place] Rate: 62 P: 71 DE: 193 QRS: 77 QRSD: 101 T: 27 QT: 420 QTc: 429 Interpretive Statements SINUS RHYTHM WITH SINUS ARRHYTHMIA BORDERLINE T WAVE ABNORMALITY- INFERIOR LEADS BASELINE ARTIFACT- I, II, III, V2-V4 BORDERLINE ECG Electronically Signed On 05-02-2021 11:33:53 MATERIALS CLERK by David Stokes D.O.
--- NOTE | 2021-05-02 06:30 | PC.NURSE ---
06:00 Patient's heart rate dropped into upper 30s with irregular rhythm. EKG performed. No new orders at this time. Will continue to monitor.
[2021-05-02 06:48] LABS: Basophils Absolute Auto 0.1 K/mm3 (0.0-0.1); Basophils Percent Auto 0.4 % (0.2-1.2); Eosinophils Absolute Auto 0.5 K/mm3 (0-0.3); Hemoglobin 10.6 g/dL (14.0-18.0); Immature Granulocyte Absolute 0.05 K/mm3 (0.00-0.031); Immature Granulocyte Percent A 0.4 % (0-0.5); Lymphocytes Absolute Auto 2.49 K/mm3 (0.9-3.2); Lymphocytes Percent Auto 20.8 % (18.3-44.2); Mean Corpuscular HGB Conc 31.2 g/dl (32-36); Mean Corpuscular Hemoglobin 31.1 pg (26-34); Mean Corpuscular Volume 99.7 fl (80-100); Mean Platelet Volume 12.5 fl (7.4-10.4); Monocytes Absolute Auto 1.2 K/mm3 (0.1-0.6); Monocytes Percent Auto 10.1 % (2.6-8.5); Neutrophils Absolute Auto 7.7 K/mm3 (1.3-6.7); Neutrophils Percent Auto 64.3 % (45.5-73.1); Platelet Count Result 173 k/mm3 (150-375); Red Blood Count 3.41 M/mm3 (4.6-6.20); Red Cell Distribution Width 12.8 % (11.5-14.5)
[2021-05-02 06:59] LABS: Alanine Aminotransferase 20 U/L (4-50); Albumin Level 3.1 g/dL (3.5-5.1); Alkaline Phosphatase 118 U/L (38-126); Anion Gap 2 mmol/L (8-16); Aspartate Amino Transferase 26 U/L (17-59); Bilirubin,Total 0.3 mg/dL (0.2-1.3); Blood Urea Nitrogen 17 mg/dL (9-20); Calcium 8.8 mg/dL (8.4-10.2); Carbon Dioxide 20 mmol/L (22-30); Chloride 117 mmol/L (98-107); Creatine Kinase 42 U/L (55-170); Estimated CRCL calculation 46 ml/min; Estimated Glomerular Filt Rate 45; Glucose 103 mg/dL (65-110); Magnesium 2.3 mg/dL (1.6-2.3); Potassium 4.7 mmol/L (3.4-5.0); Sodium 139 mmol/L (137-145)
[2021-05-02 07:15] LABS: Lithium 2.1 mmol/L (0.6-1.2)
[2021-05-02 07:38] LABS: Acanthocytes 1+ (NORMAL); Ovalocytes 1+ (NORMAL); Platelet Estimate Adequate (Adequate)
--- NOTE | 2021-05-02 08:16 | PM.CNNEP ---
Assessment and Plan Assessment and plan (1) Acute renal failure: Code(s): N17.9 - Acute kidney failure, unspecified Status: Acute Assessment and Plan: The patient has acute kidney injury. By history he apparently has been dehydrated. His blood pressure was on the low side. His heart rate was also low. In addition he was taking Naprosyn at home. I suspect that most of this is pre renal. He did receive some IV fluids and his creatinine is down to 1.6 today. Will check urine electrolytes and a renal ultrasound to make sure nothing else is going on. We can also check a CPK. I agree with continuing IV fluids. He is getting LR at 150 an hour. Will continue the IV fluids and repeat labs later today. (2) [place] toxicity: Code(s): T56.891A - Toxic effect of other metals, accidental (unintentional), initial encounter Status: Acute Assessment and Plan: The patient's lithium level is high. He probably had a high creatinine at home before he went in to the emergency room in [place]. He also had a mildly high creatinine on the was when he was in the ER there. Some most likely this is retention of lithium due to the renal insufficiency. His level is 2.1 today. He does have some lethargy however he also has COVID and is dehydrated so I do not think this gives us enough indication that we should do dialysis to bring the lithium level down. Will check another level this afternoon and make sure we are okay. At this point we can check a lithium level this afternoon and see how he is doing. (3) Hypertension: Code(s): I10 - Essential (primary) hypertension Status: Acute Assessment and Plan: Blood pressure meds are on hold. (4) COVID-19: Onset Date: 04/24/21 Code(s): U07.1 - COVID-19 Status: Acute Assessment and Plan: He is not on oxygen right now. Very few symptoms. (5) Normocytic anemia: Code(s): D64.9 - Anemia, unspecified Status: Acute Assessment and Plan: Hemoglobin is on the low side This is probably from renal insufficiency plus his current illness. No need for EPO at this point. (6) Bipolar disorder: Code(s): F31.9 - Bipolar disorder, unspecified Status: Acute Assessment and Plan: On meds. Fairly well compensated. (7) Hypothyroidism: Code(s): E03.9 - Hypothyroidism, unspecified Status: Acute Assessment and Plan: He is on levothyroxine supplements (8) Chronic pain syndrome: Code(s): G89.4 - Chronic pain syndrome Status: Acute (9) Hyperlipidemia: Code(s): E78.5 - Hyperlipidemia, unspecified Status: Acute Assessment and Plan: Not on a statin at home. History of Present Illness Reason for Consult Consult date: 05/02/21 Chief Complaint Chief complaint: shock, AMS, ADILENE History of Present Illness Narrative: Radha is a very pleasant 55-year-old gentleman who has multiple medical problems including hypertension, bipolar disorder, hypothyroidism, colon cancer, hyperlipidemia, chronic pain syndrome. The patient went into started hospital because of Recurrent syncopal spells.. Also had a mild cough. He had been tested for COVID a week before that and was positive and was staying at home. His oxygen saturation home had been normal and sometimes low apparently. He was admitted. His blood pressure is a bit low. His heart rate was low as well. His creatinine was above 4 on admission. Over the next couple days he was treated supportively his creatinine came down to 3.9. His mental status continued to be suboptimal and so he was transferred to [place]. Here he was evaluated. His felt to be dehydrated. He was given some IV fluids and his creatinine improved to 1.6. His blood pressure is a little bit better. He is still a bit sleepy but can give a history. He denies any chest pain or shortness of breath. Has a little bit of a cough. His no ENT
--- NOTE | 2021-05-02 11:11 | WPDCNINT ---
Forensic Sergeant Consult Note Consult date: 05/02/21 Time Seen: 07:01 Reason for consult: Acute kidney injury, confusion, hypotension HPI: Baljeet Herman is a 55 year old male with significant past medical history of bipolar disorder, cervical radiculopathy, chronic pain syndrome, chronic opiate usage, colon cancer status post partial colectomy, COVID-19 04/24/2021, depression, hyperlipidemia, hypertension, hypothyroidism was a direct admit to the ICU from [facility] from their medical floor, for possible hypotension, acute kidney injury, near syncopal episodeor [facility] Past Medical History Medical History Bipolar disorder Cervical radiculopathy Chronic pain syndrome Chronic prescription opiate use Colon cancer Status post partial colectomy. COVID-19 (04/24/21) Depression Hyperlipidemia Hypertension Hypothyroidism Surgical History Surgical History History of appendectomy History of arthroscopy of right shoulder History of cervical spinal surgery History of inguinal hernia repair History of nasal surgery History of partial colectomy History of repair of left rotator cuff History of tonsillectomy Status post left foot surgery Family History Family History Other Cardiac arrest Cirrhosis of liver Social History Social History Social History: The patient lives in [place] with his and family. Nonsmoker. History of alcohol and drug use, clean for 12 years. 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 He designates his , Amy Herman, as his surrogate decision maker. Code status: Full code. Meds Home Medications and Allergies Home Medications Medication Instructions Recorded Confirmed Type epinephrine 0.3 ml IM PRN PRN 10/01/19 05/01/21 History escitalopram oxalate 20 mg PO DAILY 10/01/19 05/01/21 History levothyroxine 75 mcg PO DAILY 10/01/19 05/01/21 History olanzapine 20 mg PO HS 10/01/19 05/01/21 History lithium carbonate 150 mg capsule 300 mg PO BID 09/11/20 05/01/21 History baclofen 10 mg tablet 10 mg PO TID #90 tablet 01/25/21 05/01/21 Rx hydrocodone 10 mg-acetaminophen 1 tablet PO Q4-6H PRN #175 tablet 02/04/21 05/01/21 Rx 325 mg tablet albuterol sulfate [ProAir HFA] 2 puff INHALATION QID PRN #6.7 g 04/23/21 05/01/21 Rx amlodipine 5 mg PO DAILY 04/30/21 05/01/21 History lisinopril 20 mg PO DAILY 04/30/21 05/01/21 History naproxen 500 mg PO BID PRN 05/01/21 05/01/21 History Allergies Allergy/AdvReac Type Severity Reaction Status Date / Time gabapentin AdvReac Intermediate Confusion Verified 04/30/21 16:29 Bumble Bee Allergy Severe Anaphylactic Uncoded 04/30/21 16:29 Shock Vital Signs Vital Signs - 24 hr 05/01/21 20:00 05/01/21 22:00 05/02/21 00:00 Temperature 98.7 F 98.9 F Pulse Rate 88 73 55 L Pulse Rate [Monitor] 69 51 L Respiratory Rate 18 14 Blood Pressure 116/63 99/62 L Pulse Oximetry 100 100 05/02/21 02:00 05/02/21 04:00 05/02/21 06:00 Temperature 98.4 F Pulse Rate 63 67 67 Pulse Rate [Monitor] 67 Respiratory Rate 16 Blood Pressure 115/73 Pulse Oximetry 100 05/02/21 08:00 Temperature 98.4 F Pulse Rate 60 Pulse Rate [Monitor] Respiratory Rate 16 Blood Pressure 117/65 Pulse Oximetry 100 Results Labs CBC & Chem 7: 05/02/21 06:27 05/02/21 06:27 Labs: Short CBC 05/02/21 Range/Units 06:27 WBC 12.0 H (4.5-10.0) K/mm3 Hgb 10.6 L (14.0-18.0) g/dL Hct 34.0 L (42.0-52.0) % Plt Count 173 (150-375) k/mm3 [facility] 05/02/21 06:27 Sodium 139 Potassium 4.7 Chloride 117 H Carbon Dioxide 20 L BUN 17 Creatinine 1.60 H Glucose 103 Calcium 8.8 Cardiac Enzymes 05/02/21 Range/Units 06:27 Total Creatine Kinase 42 L (55-170) U/L Live
--- NOTE | 2021-05-02 11:17 | WPDNEURCNPN ---
Assessment and Plan Additional Plan 1 encephalopathy 2 acute renal injury 3 hypertension 4 acute COVID-19 5 bipolar disorder 6 chronic pain syndrome. At this stage patient is easily arousable easily recognized the physician and has no focal neurological deficit general treatment will be continued as such, CT scan of the head been done with no evidence of space-occupying lesion or bleed Consult date: 05/02/21 HPI: Baljeet Herman is a 55 year old male has been admitted to the [facility] through the emergency room, the ongoing history of 1. Answer of the colon 2. Hypertension 3. Hyperlipidemia 4. Hypothyroidism and 5. Chronic pain syndrome 6. Bipolar disorder patient was admitted directly to the medical floor from the [facility] for further treatment and evaluation for the complaints of acute kidney injury with increasing confusion and hypotension he was also diagnosed to have COVID-19 on April 23, 2021 after presenting to an outside ER with several days complained of body aches congestion fever and chills his BUN creatinine at the time was 24 and 1.69 respectively for which he was hydrated and discharged home since that time unfortunately his appetite and oral intake was poor because everything tasted like metal and over the last several days he became extremely weak lightheaded dizzy and had a near syncopal episode he was seen in the emergency room again and was found to have worsening renal function with creatinine of 4.93 and he was admitted to the medical floor started IV fluids with some improvement is lab but he was again increasing lethargic hypotensive and confused he received hydrocodone along with baclofen and trazodone evening before and also was given a dose of Narcan and IV fluids with some improvement he was transferred here from the other hospital a rapid response was called before he was transferred because of hypotensive episode when his heart rate was dropping to 30s he was accepted to be transferred to our ICU here by the time he came here he was awake alert oriented, afebrile with blood pressure stable and SpO2 100% on room air but he appeared anxious and a a with tremors of the upper extremities he is taking hydrocodone 10 mg 3 times a day though he was continued on baclofen 10 mg 3 times a day by his physician has had no recent fever or any other general symptomatology. Carries the diagnosis of bipolar disorder with cervical radiculopathy chronic pain syndrome carcinoma of the colon status post partial colectomy COVID-19 diagnosed on 05/14 and hyperlipidemia and hypertension and hypothyroidism has had multiple surgeries including appendix to dc cervical spine surgery partial collect repair of the left rotator cough and left foot surgery Review of Systems Review of Systems: All systems reviewed & are unremarkable except as noted in HPI and below PMFSH Past Medical History Medical History Bipolar disorder Cervical radiculopathy Chronic pain syndrome Chronic prescription opiate use Colon cancer Status post partial colectomy. COVID-19 (04/24/21) Depression Hyperlipidemia Hypertension Hypothyroidism Surgical History Surgical History History of appendectomy History of arthroscopy of right shoulder History of cervical spinal surgery History of inguinal hernia repair History of nasal surgery History of partial colectomy History of repair of left rotator cuff History of tonsillectomy Status post left foot surgery Family History Family History Other Cardiac arrest Cirrhosis of liver Social History Social History Social History: The patient lives in [place] with his and family. Nonsmoker. History of alcohol and drug use, clean for 12 years. 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
--- NOTE | 2021-05-02 13:44 | PM.IMPN ---
Progress Note: A&P Assessment and Plan (1) Acute renal failure: Code(s): N17.9 - Acute kidney failure, unspecified Status: Acute Assessment and Plan: Acute kidney injury likely due to hypovolemia secondary to decreased p.o. intake. Patient also on lisinopril naproxen at home which have currently on hold -appreciate nephrology following the patient -BUN and creatinine have improved significantly, patient has had adequate urine output, will continue to monitor urine output, renal function electrolytes -renal ultrasound shows normal kidneys without hydronephrosis. (2) [place] toxicity: Code(s): T56.891A - Toxic effect of other metals, accidental (unintentional), initial encounter Status: Acute Assessment and Plan: Continue levels elevated, likely related to acute kidney injury, elevated creatinine. -lithium levels 2.1 this morning, continue IV fluids -recheck lithium level this afternoon -appreciate nephrology following the patient (3) Normocytic anemia: Code(s): D64.9 - Anemia, unspecified Status: Acute Assessment and Plan: Check iron studies and monitor. (4) Hypothyroidism: Code(s): E03.9 - Hypothyroidism, unspecified Status: Acute Assessment and Plan: Continue levothyroxine. TSH today was a bit elevated 4.15 but T4 was within normal limits at 1.14. (5) Bipolar disorder: Code(s): F31.9 - Bipolar disorder, unspecified Status: Acute Assessment and Plan: Continue olanzapine at bedtime. [place] on hold as detailed above. (6) COVID-19: Onset Date: 04/24/21 Code(s): U07.1 - COVID-19 Status: Acute Assessment and Plan: Patient tested positive on 04/23/2021 after having several days of symptoms. -currently on room air with adequate O2 sats (7) Hypertension: Code(s): I10 - Essential (primary) hypertension Status: Acute Assessment and Plan: Antihypertensives on hold given soft blood pressures throughout the day. (8) Chronic pain syndrome: Code(s): G89.4 - Chronic pain syndrome Status: Acute Assessment and Plan: Patient is slightly lethargic, will hold narcotics. Decrease baclofen dose by half and switch to p.r.n. given renal failure. 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 Hold for now (10) Confusion: Code(s): R41.0 - Disorientation, unspecified Status: Acute Assessment and Plan: Likely related to infection, renal failure, and lithium toxicity. He is alert and oriented x4 at the time my evaluation. Additional Plan Code status: Full code This dictation may have been done utilizing a voice recognition system. Attempts have been made to correct errors. However, there may be uncorrected grammatical, spelling, and recognition errors present. Due to a high probability of clinically significant, life threatening deterioration, the patient required my highest level of preparedness to intervene emergently and I personally spent this critical care time directly and personally managing the patient. This critical care time included obtaining a history; examining the patient; pulse oximetry; ordering and review of studies; arranging urgent treatment with development of a management plan; evaluation of patient's response to treatment; frequent reassessment; and discussions with other providers. It was exclusive of separately billable procedures and treating other patients and teaching time. Please see Assessment and Plan section and the rest of the note for further information on patient assessment and treatment Subjective Date/time seen: 05/02/21 13:44 Interval history: 55-year-old gentleman with history of colon can
[2021-05-02] MEDS: LACTATED RINGERS 1,000 ML 150 ML IV CONT (14:19)
[2021-05-02] MEDS: ACETAMINOPHEN 325 MG TABLET 650 MG PO (21:09)
[2021-05-02] MEDS: OLANZapine 5 MG TABLET 20 MG PO (21:32)
[2021-05-03] VITALS (15 sets, daily range): BP systolic 108–167; BP diastolic 59–80; PULSE 61–101; RESP 18–22; TEMP 35.6–36.9; O2SAT 96–100
[2021-05-03] MEDS: LACTATED RINGERS 1,000 ML 150 ML IV CONT ×2 (01:32→09:11)
[2021-05-03] MEDS: LEVOTHYROXINE SODIUM 75 MCG TABLET PO (06:19)
[2021-05-03 07:39] LABS: Lithium 1.5 mmol/L (0.6-1.2)
[2021-05-03] MEDS: ACETAMINOPHEN 325 MG TABLET 650 MG PO (09:16)
--- NOTE | 2021-05-03 11:11 | PM.IMPN ---
Progress Note: A&P Assessment and Plan (1) [place] toxicity: Code(s): T56.891A - Toxic effect of other metals, accidental (unintentional), initial encounter Status: Acute (2) Confusion: Code(s): R41.0 - Disorientation, unspecified Status: Acute (3) Hypertension: Code(s): I10 - Essential (primary) hypertension Status: Acute (4) COVID-19: Onset Date: 04/24/21 Code(s): U07.1 - COVID-19 Status: Acute (5) Normocytic anemia: Code(s): D64.9 - Anemia, unspecified Status: Acute (6) Cervical radiculopathy: Code(s): M54.12 - Radiculopathy, cervical region Status: Acute (7) Bipolar disorder: Code(s): F31.9 - Bipolar disorder, unspecified Status: Acute (8) Hypothyroidism: Code(s): E03.9 - Hypothyroidism, unspecified Status: Acute (9) Chronic prescription opiate use: Code(s): Z79.891 - care home (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) use of opiate analgesic Status: Acute (10) Chronic pain syndrome: Code(s): G89.4 - Chronic pain syndrome Status: Acute (11) Acute renal failure: Code(s): N17.9 - Acute kidney failure, unspecified Status: Acute Additional Plan 05/03/21 renal function improving lithium level down trending COVID recent infection on RA hydralazine for elevated BP pt upset reports manic episode is starting and he is getting angry wants pain pill, sleep aid, olanzapine anticipate dc on home med regimen in 24-48hrs Subjective Date/time seen: 05/03/21 11:11 pt upset reports manic episode is starting and he is getting angry wants pain pill, sleep aid, olanzapine Exam Narrative: General: Patient is awake, tremulous, in no acute distress HEENT: Pupils equal and reactive, sclera is clear, moist oral mucosa Neck: Supple Respiratory: Clear to auscultation bilaterally, decreased at bases Cardiac: sinus rhythm, rate controlled Abdomen: soft, nontender, non distended. normoactive bowel sounds Extremities: No edema, no cyanosis, pedal pulses are intact Neuro: Patient is awake, alert oriented, follows simple commands, patient is tremulous Skin: Intact, warm and dry Psych: Anxious but cooperative able to be reoriented Objective Data Vital Signs Vital Signs: Vital Signs - 24 hr 05/02/21 12:00 05/02/21 14:00 05/02/21 16:00 Temperature 98 F Pulse Rate 71 65 76 Pulse Rate [Monitor] 71 Respiratory Rate 16 18 Blood Pressure 123/69 120/67 Pulse Oximetry 100 100 05/02/21 18:00 05/02/21 18:47 05/02/21 20:00 Temperature 97.7 F 98.3 F Pulse Rate 70 76 72 Pulse Rate [Monitor] 80 Respiratory Rate 16 20 Blood Pressure 116/66 126/68 Pulse Oximetry 100 100 05/02/21 22:00 05/03/21 00:00 05/03/21 02:00 Temperature 98.2 F Pulse Rate 76 77 72 Pulse Rate [Monitor] 77 Respiratory Rate 20 Blood Pressure 140/64 Pulse Oximetry 97 05/03/21 04:00 05/03/21 05:22 05/03/21 06:00 Temperature 98.4 F Pulse Rate 74 63 Pulse Rate [Monitor] 74 Respiratory Rate 18 Blood Pressure 124/59 L 152/78 H Pulse Oximetry 99 05/03/21 08:00 Temperature 98.1 F Pulse Rate 101 H Pulse Rate [Monitor] Respiratory Rate 18 Blood Pressure 167/80 H Pulse Oximetry 96 Intake/Output Intake/Output: Intake & Output 04/30/21 05/01/21 05/02/21 05/03/21 23:59 23:59 23:59 23:59 Intake Total 480 3760 2940 Output Total 1650 2130 1700 Balance -1170 1630 1240 Meds/Results Medications: Active Medications Generic Name Dose Route Start Last Admin Trade Name Freq PRN Reason Stop Dose Admin Acetaminophen 650 mg 05/01/21 21:08 05/03/21 09:16 Acetaminophen 325 Mg Tablet PO 650 mg Q4H PRN Administration Mild Pain (1-3) or Fever Hydrocodone Bitart/Acetaminophen 1 tab 05/02/21 00:13 05/02/21 05:02 Hydrocodone/Acetaminophen (*Crx) 10-325 Mg Tablet PO 1 tab Q6H PRN Administration pain (scale score 7-10) Albuterol 2 puff 05/02/21 00:13
[2021-05-03 12:14] LABS: Albumin Level 3.6 g/dL (3.5-5.1); Anion Gap 3 mmol/L (8-16); Blood Urea Nitrogen 8 mg/dL (9-20); Calcium 9.1 mg/dL (8.4-10.2); Carbon Dioxide 24 mmol/L (22-30); Chloride 108 mmol/L (98-107); Estimated CRCL calculation 60 ml/min; Estimated Glomerular Filt Rate > 60; Glucose 127 mg/dL (65-110); Phosphorus 3.3 mg/dL (2.5-4.5); Potassium 3.8 mmol/L (3.4-5.0); Sodium 135 mmol/L (137-145)
--- NOTE | 2021-05-03 12:22 | PM.PNNEP ---
Progress Note: A&P Assessment and Plan (1) Acute renal failure: Code(s): N17.9 - Acute kidney failure, unspecified Status: Acute Assessment and Plan: resolving due to several issues: pre renal factors/volume depletion hypotension NSAID use prior to admission SIMON-I use prior to admission evaluation to date: renal ultrasound normal CPK low urine electrolytes were not done creatinine continue to improve slowly wean off IVFs as oral intake improves (2) [place] toxicity: Code(s): T56.891A - Toxic effect of other metals, accidental (unintentional), initial encounter Status: Acute Assessment and Plan: slowly improving with ongoing interventions presumably due to #1 follow trend of repeat levels (3) Hypertension: Code(s): I10 - Essential (primary) hypertension Status: Acute Assessment and Plan: BP flucutationg slowly re-introduce home meds as tolerated would hold SIMON-I for now until renal function normalizes completely (4) COVID-19: Onset Date: 04/24/21 Code(s): U07.1 - COVID-19 Status: Acute Assessment and Plan: minimal symptoms no evidence of hypoxia continue supportice therapy (5) Normocytic anemia: Code(s): D64.9 - Anemia, unspecified Status: Acute Assessment and Plan: H/H on the lower side presumably from [place] and acute illness follow trend (6) Bipolar disorder: Code(s): F31.9 - Bipolar disorder, unspecified Status: Acute Assessment and Plan: appears stable Not much else to add -- will continue to follow from a distance. Subjective Date/time seen: 05/03/21 12:22 Chart reviewed - assuming care from Dr. Arizmendi; transferred out of ICU; continues to make good urine output with ongoing improvement in his renal function noted by labs today; lithium level is slowly improving as well; no apparent distress noted; no issues/events overnight or earlier this AM. Exam Narrative: General: WD/WN male in NAD Heart: normal S1 and S2; no rub Lungs: clear to auscultation Abdomen: soft, nontender, nondistended, positive bowel sounds Extremities: no cyanosis or clubbing; no edema Skin: warm and dry Objective Data Vital Signs Vital Signs: Vital Signs Temp Pulse Pulse Resp BP Pulse Ox 05/03/21 12:00 36.8 C 67 22 H 108/61 100 05/03/21 10:00 75 05/03/21 08:00 36.7 C 71 18 167/80 H 96 05/03/21 06:00 63 05/03/21 05:22 152/78 H 05/03/21 04:00 36.9 C 74 74 18 124/59 L 99 05/03/21 02:00 72 05/03/21 00:00 36.8 C 77 77 20 140/64 97 05/02/21 22:00 76 05/02/21 20:00 36.8 C 72 80 20 126/68 100 05/02/21 18:47 36.5 C 76 16 116/66 100 05/02/21 18:00 70 05/02/21 16:00 76 18 120/67 100 Intake/Output Intake/Output: Intake & Output 04/30/21 05/01/21 05/02/21 05/03/21 23:59 23:59 23:59 23:59 Intake Total 480 3760 2940 Output Total 1650 2130 2150 Balance -1170 1630 790 Meds/Results Medications: Active Medications Generic Name Dose Route Start Last Admin Trade Name Freq PRN Reason Stop Dose Admin Acetaminophen 650 mg 05/01/21 21:08 05/03/21 09:16 Acetaminophen 325 Mg Tablet PO 650 mg Q4H PRN Administration Mild Pain (1-3) or Fever Hydrocodone Bitart/Acetaminophen 1 tab 05/02/21 00:13 05/02/21 05:02 Hydrocodone/Acetaminophen (*Crx) 10-325 Mg Tablet PO 1 tab Q6H PRN Administration pain (scale score 7-10) Albuterol 2 puff 05/02/21 00:13 Albuterol Sulfate (*Sp) Aerosol 1 Puff INHALATION QID PRN shortness of breath or wheezing Baclofen 5 mg 05/02/21 00:13 Baclofen 5 Mg Tablet PO BID PRN muscle spasms Hydralazine HCl 25 mg 05/03/21 11:15 Hydralazine Hcl 25 Mg Tablet PO QID PRN Hypertension SBP > 140 Lactated Ringer's 1,000 mls @ 150 mls/hr 05/01/21 21:10 05/03/21 09:11 Lr
--- NOTE | 2021-05-03 12:22 | P.PNNP_ITS ---
Progress Note: A&P Assessment and Plan (1) Acute renal failure: Code(s): N17.9 - Acute kidney failure, unspecified Status: Acute Assessment and Plan: * resolving * due to several issues: * pre renal factors/volume depletion * hypotension * NSAID use prior to admission * SIMON-I use prior to admission * evaluation to date: * renal ultrasound normal * CPK low * urine electrolytes were not done * creatinine continue to improve * slowly wean off IVFs as oral intake improves (2) [place] toxicity: Code(s): T56.891A - Toxic effect of other metals, accidental (unintentional), initial encounter Status: Acute Assessment and Plan: * slowly improving with ongoing interventions * presumably due to #1 * follow trend of repeat levels (3) Hypertension: Code(s): I10 - Essential (primary) hypertension Status: Acute Assessment and Plan: * BP flucutationg * slowly re-introduce home meds as tolerated * would hold SIMON-I for now until renal function normalizes completely (4) COVID-19: Onset Date: 04/24/21 Code(s): U07.1 - COVID-19 Status: Acute Assessment and Plan: * minimal symptoms * no evidence of hypoxia * continue supportice therapy (5) Normocytic anemia: Code(s): D64.9 - Anemia, unspecified Status: Acute Assessment and Plan: * H/H on the lower side * presumably from [place] and acute illness * follow trend (6) Bipolar disorder: Code(s): F31.9 - Bipolar disorder, unspecified Status: Acute Assessment and Plan: * appears stable Not much else to add -- will continue to follow from a distance. Subjective Date/time seen: 05/03/21 12:22 Chart reviewed - assuming care from Dr. Arizmendi; transferred out of ICU; continues to make good urine output with ongoing improvement in his renal function noted by labs today; lithium level is slowly improving as well; no apparent distress noted; no issues/events overnight or earlier this AM. Exam Narrative: General: WD/WN male in NAD Heart: normal S1 and S2; no rub Lungs: clear to auscultation Abdomen: soft, nontender, nondistended, positive bowel sounds Extremities: no cyanosis or clubbing; no edema Skin: warm and dry Objective Data Vital Signs Vital Signs: Vital Signs Temp Pulse Pulse Resp BP Pulse Ox 05/03/21 12:00 36.8 C 67 22 H 108/61 100 05/03/21 10:00 75 05/03/21 08:00 36.7 C 71 18 167/80 H 96 05/03/21 06:00 63 05/03/21 05:22 152/78 H 05/03/21 04:00 36.9 C 74 74 18 124/59 L 99 05/03/21 02:00 72 05/03/21 00:00 36.8 C 77 77 20 140/64 97 05/02/21 22:00 76 05/02/21 20:00 36.8 C 72 80 20 126/68 100 05/02/21 18:47 36.5 C 76 16 116/66 100 05/02/21 18:00 70 05/02/21 16:00 76 18 120/67 100 Intake/Output Intake/Output: Intake & Output 04/30/21 05/01/21 05/02/21 05/03/21 23:59 23:59 23:59 23:59 Intake Total 480 3760 2940 Output Total 1650 2130 2150 Balance -1170 1630 790 Meds/Results Medications: Active Medications Generic Name Dose Route Start Last Admin Trade Name Freq PRN Reason S
[2021-05-03] MEDS: LACTATED RINGERS 1,000 ML 75 ML IV CONT (17:16)
[2021-05-03] MEDS: OLANZapine 5 MG TABLET 20 MG PO (20:10)
[2021-05-03] MEDS: MELATONIN 5 MG TABLET PO (20:10)
[2021-05-04] VITALS (8 sets, daily range): BP systolic 119–142; BP diastolic 60–72; PULSE 64–80; RESP 18–20; TEMP 36.8–36.9; O2SAT 98–100
[2021-05-04] MEDS: HYDROcodone/acetaminophen (*CRX) 10-325 MG TABLET 1 TAB PO ×2 (04:14→09:54)
[2021-05-04 05:04] LABS: Albumin Level 3.1 g/dL (3.5-5.1); Anion Gap 4 mmol/L (8-16); Blood Urea Nitrogen 8 mg/dL (9-20); Calcium 8.9 mg/dL (8.4-10.2); Carbon Dioxide 22 mmol/L (22-30); Chloride 109 mmol/L (98-107); Estimated CRCL calculation 65 ml/min; Estimated Glomerular Filt Rate > 60; Glucose 92 mg/dL (65-110); Magnesium 1.4 mg/dL (1.6-2.3); Phosphorus 3.7 mg/dL (2.5-4.5); Potassium 3.5 mmol/L (3.4-5.0); Sodium 135 mmol/L (137-145)
[2021-05-04] MEDS: LACTATED RINGERS 1,000 ML 75 ML IV CONT ×2 (06:34→08:16)
[2021-05-04] MEDS: LEVOTHYROXINE SODIUM 75 MCG TABLET PO (06:34)
[2021-05-04] MEDS: ESCITALOPRAM OXALATE 10 MG TABLET 20 MG PO (08:18)
[2021-05-04] MEDS: amLODIPine BESYLATE 5 MG TABLET PO (08:19)
[2021-05-04 09:04] LABS: Lithium 1.1 mmol/L (0.6-1.2)
--- NOTE | 2021-05-04 10:32 | PM.DS ---
DS: Admitting Diagnosis Discharge Date 05/04/21 Admitting Diagnosis (1) Acute renal failure: Code(s): N17.9 - Acute kidney failure, unspecified Status: Acute Assessment and Plan: The patient has acute renal failure, likely due to hypovolemia from dehydration due to poor oral intake. He is also on lisinopril and naproxen at home. Creatinine has improved with IV fluids. We will continue with IV fluid rehydration with close monitoring of I/O. Renal ultrasound ordered for a.m. Nephrology was consulted by the outside facility and their input is appreciated. (2) [place] toxicity: Code(s): T56.891A - Toxic effect of other metals, accidental (unintentional), initial encounter Status: Acute Assessment and Plan: Patient reports not having taken his lithium for a couple of days and despite this his level is elevated 2.0. He reportedly was showing some signs of confusion and bradycardia at the outside hospital though he is alert and oriented x4 at the time my evaluation. He is a bit fidgety, however. Will hold lithium given renal failure and continue hydration overnight. Recheck in a.m. (3) Normocytic anemia: Code(s): D64.9 - Anemia, unspecified Status: Acute Assessment and Plan: Check iron studies and monitor. (4) Hypothyroidism: Code(s): E03.9 - Hypothyroidism, unspecified Status: Acute Assessment and Plan: Continue levothyroxine. TSH today was a bit elevated 4.15 but T4 was within normal limits at 1.14. (5) Bipolar disorder: Code(s): F31.9 - Bipolar disorder, unspecified Status: Acute Assessment and Plan: Continue olanzapine at bedtime. [place] on hold as detailed above. (6) COVID-19: Onset Date: 04/24/21 Code(s): U07.1 - COVID-19 Status: Acute Assessment and Plan: Patient tested positive on 04/23/2021 after having several days of symptoms. (7) Hypertension: Code(s): I10 - Essential (primary) hypertension Status: Acute Assessment and Plan: Antihypertensives on hold given soft blood pressures throughout the day. (8) Chronic pain syndrome: Code(s): G89.4 - Chronic pain syndrome Status: Acute Assessment and Plan: Continue hydrocodone p.r.n.. Decrease baclofen dose by half and switch to p.r.n. given renal failure. (9) Chronic prescription opiate use: Code(s): Z79.891 - retirement (current) use of opiate analgesic Status: Acute Assessment and Plan: Patient has been on hydrocodone for many years and has tapered down to 10 mg 3 times daily. (10) Confusion: Code(s): R41.0 - Disorientation, unspecified Status: Acute Assessment and Plan: Likely related to infection, renal failure, and lithium toxicity. He is alert and oriented x4 at the time my evaluation. DS: Discharge Diagnosis Discharge Diagnosis (1) [place] toxicity: Code(s): T56.891A - Toxic effect of other metals, accidental (unintentional), initial encounter Status: Acute (2) Confusion: Code(s): R41.0 - Disorientation, unspecified Status: Acute (3) Hypertension: Code(s): I10 - Essential (primary) hypertension Status: Acute (4) Acute renal failure: Code(s): N17.9 - Acute kidney failure, unspecified Status: Acute (5) Hypermagnesemia: Code(s): E83.41 - Hypermagnesemia Status: Acute (6) Hyperlipidemia: Code(s): E78.5 - Hyperlipidemia, unspecified Status: Acute (7) Chronic pain syndrome: Code(s): G89.4 - Chronic pain syndrome Status: Acute (8) Chronic prescription opiate use: Code(s): Z79.891 - retirement (current) use of opiate analgesic Status: Acute (9) Hypothyroidism: Code(s): E03.9 - Hypothyroidism, unspecified Status: Acute (10) Bipolar disorder: Code(s): F31.9 - Bipolar disorder, unspecified Status: Acute (11) Norm
--- NOTE | 2021-05-04 10:34 | P.PNNP_ITS ---
Progress Note: A&P Assessment and Plan (1) Acute renal failure: Code(s): N17.9 - Acute kidney failure, unspecified Status: Acute Assessment and Plan: * resolved * due to several issues: * pre renal factors/volume depletion * hypotension * NSAID use prior to admission * SIMON-I use prior to admission * evaluation to date: * renal ultrasound normal * CPK low * urine electrolytes were not done * creatinine is now normal. * Renal will sign off. (2) [place] toxicity: Code(s): T56.891A - Toxic effect of other metals, accidental (unintentional), initial encounter Status: Acute Assessment and Plan: * Level back down to normal (3) Hypertension: Code(s): I10 - Essential (primary) hypertension Status: Acute Assessment and Plan: * BP flucutationg * slowly re-introduce home meds as tolerated * would hold SIMON-I for now until renal function normalizes completely (4) COVID-19: Onset Date: 04/24/21 Code(s): U07.1 - COVID-19 Status: Acute Assessment and Plan: * minimal symptoms * no evidence of hypoxia * continue supportice therapy (5) Normocytic anemia: Code(s): D64.9 - Anemia, unspecified Status: Acute Assessment and Plan: * H/H on the lower side * presumably from [place]IL[place] and acute illness * follow trend (6) Bipolar disorder: Code(s): F31.9 - Bipolar disorder, unspecified Status: Acute Assessment and Plan: * appears stable Subjective Date/time seen: 05/04/21 10:34 Interval history: patient feels okay. He is eager for discharge. Exam Narrative: General: WD/WN male in NAD Heart: normal S1 and S2; no rub or subcu nodules Lungs: clear to auscultation Abdomen: soft, nontender, nondistended, positive bowel sounds Extremities: no cyanosis or clubbing; no edema Skin: No rash Objective Data Vital Signs Vital Signs: Vital Signs - 24 hr 05/03/21 12:00 05/03/21 14:00 05/03/21 16:00 Temperature 36.8 C Pulse Rate 71 70 70 Respiratory Rate 22 H Blood Pressure 108/61 Pulse Oximetry 100 05/03/21 17:16 05/03/21 18:00 05/03/21 20:00 Temperature 35.6 C L Pulse Rate 72 80 75 Respiratory Rate 20 Blood Pressure 114/69 Pulse Oximetry 100 05/03/21 20:24 05/03/21 22:00 05/04/21 00:00 Temperature 36.1 C L 36.9 C Pulse Rate 81 74 76 Respiratory Rate 20 20 Blood Pressure 130/66 137/64 Pulse Oximetry 99 98 05/04/21 02:00 05/04/21 04:00 05/04/21 05:42 Temperature 36.8 C Pulse Rate 67 73 Respiratory Rate 18 Blood Pressure 142/69 H 138/65 Pulse Oximetry 100 05/04/21 06:00 05/04/21 08:00 Temperature 36.8 C Pulse Rate 64 68 Respiratory Rate 18 Blood Pressure 119/72 Pulse Oximetry 100 Intake/Output Intake/Output: Intake & Output 05/01/21 05/02/21 05/03/21 05/04/21 23:59 23:59 23:59 23:59 Intake Total 480 3760 4180 2980 Output Total 1650 2130 3550 2900 Balance -1170 1630 630 80 Meds/Results Medications:
--- NOTE | 2021-05-04 10:34 | PM.PNNEP ---
Progress Note: A&P Assessment and Plan (1) Acute renal failure: Code(s): N17.9 - Acute kidney failure, unspecified Status: Acute Assessment and Plan: resolved due to several issues: pre renal factors/volume depletion hypotension NSAID use prior to admission SIMON-I use prior to admission evaluation to date: renal ultrasound normal CPK low urine electrolytes were not done creatinine is now normal. Renal will sign off. (2) [place] toxicity: Code(s): T56.891A - Toxic effect of other metals, accidental (unintentional), initial encounter Status: Acute Assessment and Plan: Level back down to normal (3) Hypertension: Code(s): I10 - Essential (primary) hypertension Status: Acute Assessment and Plan: BP flucutationg slowly re-introduce home meds as tolerated would hold SIMON-I for now until renal function normalizes completely (4) COVID-19: Onset Date: 04/24/21 Code(s): U07.1 - COVID-19 Status: Acute Assessment and Plan: minimal symptoms no evidence of hypoxia continue supportice therapy (5) Normocytic anemia: Code(s): D64.9 - Anemia, unspecified Status: Acute Assessment and Plan: H/H on the lower side presumably from [place]IL[place] and acute illness follow trend (6) Bipolar disorder: Code(s): F31.9 - Bipolar disorder, unspecified Status: Acute Assessment and Plan: appears stable Subjective Date/time seen: 05/04/21 10:34 Interval history: patient feels okay. He is eager for discharge. Exam Narrative: General: WD/WN male in NAD Heart: normal S1 and S2; no rub or subcu nodules Lungs: clear to auscultation Abdomen: soft, nontender, nondistended, positive bowel sounds Extremities: no cyanosis or clubbing; no edema Skin: No rash Objective Data Vital Signs Vital Signs: Vital Signs - 24 hr 05/03/21 12:00 05/03/21 14:00 05/03/21 16:00 Temperature 36.8 C Pulse Rate 71 70 70 Respiratory Rate 22 H Blood Pressure 108/61 Pulse Oximetry 100 05/03/21 17:16 05/03/21 18:00 05/03/21 20:00 Temperature 35.6 C L Pulse Rate 72 80 75 Respiratory Rate 20 Blood Pressure 114/69 Pulse Oximetry 100 05/03/21 20:24 05/03/21 22:00 05/04/21 00:00 Temperature 36.1 C L 36.9 C Pulse Rate 81 74 76 Respiratory Rate 20 20 Blood Pressure 130/66 137/64 Pulse Oximetry 99 98 05/04/21 02:00 05/04/21 04:00 05/04/21 05:42 Temperature 36.8 C Pulse Rate 67 73 Respiratory Rate 18 Blood Pressure 142/69 H 138/65 Pulse Oximetry 100 05/04/21 06:00 05/04/21 08:00 Temperature 36.8 C Pulse Rate 64 68 Respiratory Rate 18 Blood Pressure 119/72 Pulse Oximetry 100 Intake/Output Intake/Output: Intake & Output 05/01/21 05/02/21 05/03/21 05/04/21 23:59 23:59 23:59 23:59 Intake Total 480 3760 4180 2980 Output Total 1650 2130 3550 2900 Balance -1170 1630 630 80 Meds/Results Medications: Active Medications Generic Name Dose Route Start Last Admin Trade Name Freq PRN Reason Stop Dose Admin Acetaminophen 650 mg 05/01/21 21:08 05/03/21 09:16 Acetaminophen 325 Mg Tablet PO 650 mg Q4H PRN Administration Mild Pain (1-3) or Fever Hydrocodone Bitart/Acetaminophen 1 tab 05/02/21 00:13 05/04/21 09:54 Hydrocodone/Acetaminophen (*Crx) 10-325 Mg Tablet PO 1 tab Q6H PRN Administration pain (scale score 7-10) Albuterol 2 puff 05/02/21 00:13 Albuterol Sulfate (*Sp) Aerosol 1 Puff INHALATION QID PRN shortness of breath or wheezing Amlodipine Besylate 5 mg 05/04/21 09:00 05/04/21 08:19 Amlodipine Besylate 5 Mg Tablet PO 5 mg DAILY PATIENCE Administration Baclofen 5 mg 05/02/21 00:13 Baclofen 5 Mg Tablet PO BID PRN muscle spasms Escitalopram Oxalate 20 mg 05/04/21 09:00 05/04/21 08:18 Escitalopram Oxalate 10 Mg Tablet PO 20 mg DAILY PATIENCE Administratio
[2021-05-04] MEDS: POTASSIUM CHLORIDE 20 MEQ PACKET (FOR LIQUID) 40 MEQ PO (10:56)
[2021-05-04] MEDS: MAGNESIUM SULF 2 GM/WATER 50ML 2 GM/50 ML BAG IVPB (10:56)
--- NOTE | 2021-05-04 13:48 | WPDNEURCNPN ---
Assessment and Plan Additional Plan tremor left more than right with negative CT scan of the head, not parkinsonian, mostly action will be treated as an outpatient Consult date: 05/04/21 HPI: Baljeet Herman is a 55 year old male with improving encephalopathy in addition to underlying acute renal insufficiency, hypertension, acute COVID ,bipolar disorder with chronic pain syndrome, developed significant action tremor Review of Systems Review of Systems: All systems reviewed & are unremarkable except as noted in HPI and below PMFSH Past Medical History Medical History Bipolar disorder Cervical radiculopathy Chronic pain syndrome Chronic prescription opiate use Colon cancer Status post partial colectomy. COVID-19 (04/24/21) Depression Hyperlipidemia Hypertension Hypothyroidism Surgical History Surgical History History of appendectomy History of arthroscopy of right shoulder History of cervical spinal surgery History of inguinal hernia repair History of nasal surgery History of partial colectomy History of repair of left rotator cuff History of tonsillectomy Status post left foot surgery Family History Family History Other Cardiac arrest Cirrhosis of liver Social History Social History Social History: The patient lives in [place] with his and family. Nonsmoker. History of alcohol and drug use, clean for 12 years. 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 He designates his , Amy Herman, as his surrogate decision maker. Code status: Full code. Meds Home Medications and Allergies Home Medications Medication Instructions Recorded Confirmed Type epinephrine 0.3 ml IM PRN PRN 10/01/19 05/01/21 History escitalopram oxalate 20 mg PO DAILY 10/01/19 05/01/21 History levothyroxine 75 mcg PO DAILY 10/01/19 05/01/21 History olanzapine 20 mg PO HS 10/01/19 05/01/21 History lithium carbonate 150 mg capsule 300 mg PO BID 09/11/20 05/01/21 History baclofen 10 mg tablet 10 mg PO TID #90 tablet 01/25/21 05/01/21 Rx hydrocodone 10 mg-acetaminophen 1 tablet PO Q4-6H PRN #175 tablet 02/04/21 05/01/21 Rx 325 mg tablet albuterol sulfate [ProAir HFA] 2 puff INHALATION QID PRN #6.7 g 04/23/21 05/01/21 Rx amlodipine 5 mg PO DAILY 04/30/21 05/01/21 History lisinopril 20 mg PO DAILY 04/30/21 05/01/21 History naproxen 500 mg PO BID PRN 05/01/21 05/01/21 History Allergies Allergy/AdvReac Type Severity Reaction Status Date / Time gabapentin AdvReac Intermediate Confusion Verified 04/30/21 16:29 Bumble Bee Allergy Severe Anaphylactic Uncoded 04/30/21 16:29 Shock Vital Signs Vital Signs - 24 hr 05/03/21 14:00 05/03/21 16:00 05/03/21 17:16 Temperature 35.6 C L Pulse Rate 70 70 72 Respiratory Rate 20 Blood Pressure 114/69 Pulse Oximetry 100 05/03/21 18:00 05/03/21 20:00 05/03/21 20:24 Temperature 36.1 C L Pulse Rate 80 75 81 Respiratory Rate 20 Blood Pressure 130/66 Pulse Oximetry 99 05/03/21 22:00 05/04/21 00:00 05/04/21 02:00 Temperature 36.9 C Pulse Rate 74 76 67 Respiratory Rate 20 Blood Pressure 137/64 Pulse Oximetry 98 05/04/21 04:00 05/04/21 05:42 05/04/21 06:00 Temperature 36.8 C Pulse Rate 73 64 Respiratory Rate 18 Blood Pressure 142/69 H 138/65 Pulse Oximetry 100 05/04/21 08:00 05/04/21 10:00 05/04/21 12:00 Temperature 36.8 C 36.8 C Pulse Rate 77 72 68 Respiratory Rate 18 18 Blood Pressure 119/72 130/64 Pulse Oximetry 100 100 Results Labs CBC & Chem 7: 05/02/21 06:27 05/04/21 04:01 Labs: BMP 05/04/21 04:01 Sodium 135 L Potassium 3.5 Chloride 109 H Carbon Dioxide 22 BUN 8 L Creatinine 1.10 Glucose 92 Calcium 8.9 Liver Function 05/04/21 Range/Units 0
== END 2021-05-04 15:30 | disposition home or self-care (01) | DRG 682 ==
LOC: ANHICU 05-02 14:51 → ANHIMU 05-04 10:31 → ANHICU 05-07 10:31 → ANHIMU 05-07 10:31
PROVIDERS: Internal Medicine; Internal Medicine Nephrology; Physician Assistant; Admitting Provider Internal Medicine; PCP Physician Assistant; Visit Provider Hospitalist
DX: N17.9 Acute kidney failure, unspecified (principal); U07.1 COVID-19; T43.592A Poisoning by other antipsychotics and neuroleptics, intentional self-harm, initial encounter; R41.0 Disorientation, unspecified; E86.0 Dehydration; E86.1 Hypovolemia; D64.9 Anemia, unspecified; F31.9 Bipolar disorder, unspecified; E03.9 Hypothyroidism, unspecified; E83.41 Hypermagnesemia; I95.9 Hypotension, unspecified; M54.12 Radiculopathy, cervical region; E78.5 Hyperlipidemia, unspecified; I10 Essential (primary) hypertension; Z79.891 Long term (current) use of opiate analgesic; Z85.038 Personal history of other malignant neoplasm of large intestine; Z90.49 Acquired absence of other specified parts of digestive tract
CPT/HCPCS: 36415; 36569; 76775; 80053; 80069; 80178; 82550; 83735; 85025; 85055; 93005; A9270; C1751; J3475; J7120

== ENCOUNTER 2021-05-20 12:09 | Observation (INO) | payer MEDICARE, MEDICAID, SELFPAY ==
[2021-05-20] VITALS (33 sets, daily range): BP systolic 110–153; BP diastolic 66–92; PULSE 59–83; RESP 12–18; TEMP 36.4–36.9; O2SAT 96–100; BMI 28.0
--- NOTE | ~2021-05-20 | XR_ITS ---
EXAMINATION: XR chest 1V EXAM DATE: 05/20/2021 14:01 INDICATION: Syncope, Sob, Dizzy For 2 Weeks. Fall . TECHNIQUE: Portable AP frontal chest x-ray was obtained. Comparison is made to prior examination from 05/01/2021. FINDINGS: The lungs are clear. There are no pleural effusions. The cardiomediastinal silhouette is within normal limits. There is no pneumothorax suspected. The bones and soft tissues are unremarkab le. Cervical fusion hardware. There is no significant interval change. IMPRESSION: No acute cardiopulmonary findings. Reviewed, dictated and finalized at location B. DRYER
--- NOTE | ~2021-05-20 | CT_ITS ---
EXAMINATION: CT brain wo con, CT cervical spine wo con EXAM DATE: 05/20/2021 13:56 INDICATION: Fall, left forehead pain, injury. Loss of consciousness. Dizziness. Colon cancer. TECHNIQUE: Spiral CT of the head was performed without contrast. Axial, coronal and sagittal images were reviewed. Spiral CT of the cervical spine was performed without contrast. Axial images were rev iewed. Coronal and sagittal reformatted images were also reviewed. The dose-length product (DLP) fo r this examination was 605.33 (accession [id number]), 419.25 (accession [id number]) mGy-cm. The exposure was tailored according to patient size, and iterative reconstruction (ASIR) was used as additional dose reduction technique. Comparison is made to prior examination from 05/01/2021. FINDINGS: HEAD CT: There is no acute intraparenchymal hemorrhage. No evidence of intraparenchymal brain mass l esion. No evidence of acute infarction. There is no mass effect or midline shift. There is no obstru ctive hydrocephalus suspected. There are no extra-axial collections. There are no acute calvarial f ractures. The orbits are unremarkable. Soft tissue is unremarkable. Mild ethmoid mucoperiosteal th ickening. CERVICAL CT: C5-7 cervical fusion. Moderate to severe C4-5 disc disease, moderate at C3-4 and C7-T1. Moderate to severe bilateral neural foraminal stenosis at C3-4 and on the left at C4-5. There is no e vidence of acute cervical fracture. The odontoid process is intact. Pre-dens space is normal. Prev ertebral soft tissue is normal. There are no soft tissue abnormalities identified. There is no disc space widening or traumatic vertebral body subluxation suspected. Vertebral body and disc heights a re well-maintained. A detailed level by level evaluation of spondylosis can be added as addendum if requested. IMPRESSION: No acute intracranial findings or cervical fracture. Reviewed, dictated and finalized at location B. POLICE IMPRESSION: No acute intracranial findings or cervical fracture.
--- NOTE | ~2021-05-20 | MR_ITS ---
EXAMINATION: MR abdomen wo/w con DATE: 05/22/2021 10:37 INDICATION: Abnormal liver function tests. Liver mass. TECHNIQUE: Magnetic resonance imaging (MRI) of the abdomen was performed without and with 18 mL Multi Carole intravenous contrast. Sequences included coronal T2-weighted FS FSE, coronal and axial FS FIEST A, axial T2-weighted FSE, coronal LAVA-flex, axial STIR FSE, axial DWI, axial dual-echo T1-weighted F SPGR, and axial LAVA. Postcontrast sequences included coronal LAVA-flex and a time course of axial LA VA. COMPARISON: Ultrasound 05/21/2021, CT abdomen and pelvis 02/18/2015 FINDINGS: There is a trace left pleural effusion. There are 1.9 and 1.0 cm hypoenhancing masses at the junction of segments VII and VIII of the liver suspicious for metastatic disease. There is a 1.4 cm hyperenha ncing mass in segment of the liver, which may be benign or less likely malignant. There are multip le masses scattered in the liver measuring up to 5 mm seen on diffusion-weighted imaging, which are i ndeterminate for metastatic disease. The gallbladder, spleen, and adrenal glands are normal. Pancreas divisum is noted. There are cysts in the kidneys measuring up to 1.1 cm on the right. There are no d ilated loops of bowel. There are no pathologically enlarged lymph nodes. There is no free intraperito garland fluid. IMPRESSION: 1. Liver masses suspicious for metastatic disease. The position of the largest mass at the liver dome makes percutaneous biopsy difficult. Reviewed, dictated and finalized at location A. PULLER
--- NOTE | ~2021-05-20 | US_ITS ---
EXAMINATION: US right upper quadrant DATE: 05/21/2021 08:17 INDICATION: Abnormal liver function tests. TECHNIQUE: Multiple grayscale and Doppler ultrasound images of the abdomen were obtained. COMPARISON: Abdomen ultrasound 04/20/15, CT abdomen and pelvis 02/18/2015 FINDINGS: The portions of the head, body, and tail of the pancreas are normal. There is a 1.2 cm hypo echoic mass in the liver. No liver surface nodularity. There is normal flow in main portal vein. The gallbladder is normal in size. No gallstones or gallbladder wall thickening. There was no sonographic Phan sign. The common duct is normal measures 5 mm. IMPRESSION: 1. 1.2 cm liver mass, which may be benign or less likely malignant. Abdomen MRI without and with cont rast is recommended. Reviewed, dictated and finalized at location A. KILN WORKER HELPER IMPRESSION: 1. 1.2 cm liver mass, which may be benign or less likely malignant. Abdomen MRI without and with contrast is recommended.
--- NOTE | 2021-05-20 12:12 | ECG_ITS ---
Measurements Intervals [place] Rate: 68 P: SC: 0 QRS: 62 QRSD: 97 T: 40 QT: 426 QTc: 454 Interpretive Statements SINUS RHYTHM FREQUENT ATRIAL PREMATURE COMPLEXES INCOMPLETE RIGHT BUNDLE BRANCH BLOCK BASELINE WANDER- AVR, AVL, AVF ABNORMAL ECG Electronically Signed On 05-20-2021 13:00:17 [employer] by David Stokes D.O.
[2021-05-20 12:37] LABS: Basophils Percent Auto 0.6 % (0.2-1.2); Eosinophils Absolute Auto 0.5 K/mm3 (0-0.3); Eosinophils Percent Auto 7.7 % (0-4.4); Hematocrit 33.8 % (42.0-52.0); Hemoglobin 11.1 g/dL (14.0-18.0); Immature Granulocyte Absolute 0.04 K/mm3 (0.00-0.031); Immature Granulocyte Percent A 0.6 % (0-0.5); Lymphocytes Percent Auto 21.7 % (18.3-44.2); Mean Corpuscular HGB Conc 32.8 g/dl (32-36); Mean Corpuscular Hemoglobin 31.5 pg (26-34); Mean Platelet Volume 11.2 fl (7.4-10.4); Monocytes Absolute Auto 0.9 K/mm3 (0.1-0.6); Monocytes Percent Auto 12.7 % (2.6-8.5); Neutrophils Absolute Auto 3.9 K/mm3 (1.3-6.7); Neutrophils Percent Auto 56.7 % (45.5-73.1); Platelet Count Result 226 k/mm3 (150-375); Red Blood Count 3.52 M/mm3 (4.6-6.20); Red Cell Distribution Width 13.2 % (11.5-14.5); White Blood Count 6.9 K/mm3 (4.5-10.0)
[2021-05-20 12:50] LABS: Alanine Aminotransferase 215 U/L (4-50); Albumin Level 4.1 g/dL (3.5-5.1); Alkaline Phosphatase 140 U/L (38-126); Anion Gap 10 mmol/L (8-16); Aspartate Amino Transferase 238 U/L (17-59); Bilirubin,Total 0.2 mg/dL (0.2-1.3); Blood Urea Nitrogen 7 mg/dL (9-20); Calcium 8.9 mg/dL (8.4-10.2); Carbon Dioxide 24 mmol/L (22-30); Chloride 104 mmol/L (98-107); Estimated CRCL calculation 101 ml/min; Estimated Glomerular Filt Rate > 60; Glucose 125 mg/dL (65-110); Potassium 3.8 mmol/L (3.4-5.0); Sodium 138 mmol/L (137-145)
[2021-05-20 12:51] LABS: Lithium 0.8 mmol/L (0.6-1.2)
[2021-05-20 13:30] LABS: Creatine Kinase 55 U/L (55-170)
--- NOTE | 2021-05-20 13:41 | ED.SYNCOPE ---
HPI - Syncope General Chief Complaint: Syncope Stated Complaint: syncope Time Seen by Provider: 05/20/21 13:09 Source: patient and EMS Mode of arrival: EMS Limitations: no limitations History of Present Illness HPI narrative: Patient is 55 years old white male came to the emergency room with his because of syncope twice today. Patient reports while trying to sit up from a recliner fell forward and was unconscious for few seconds. Patient had similar symptoms again while trying to get out of bed in the standing position. His is telling me that patient been having this passing out since he got discharged from our hospital 2 weeks ago. Currently patient main complaint is neck pain which is chronic. History of bipolar chronic pain, been managed by pain management physician. Patient denies any fever, chills, nausea, vomiting, chest pain, shortness of breath, head pain. Related Data Home Medications Medication Instructions Recorded Confirmed epinephrine 0.3 ml IM PRN PRN 10/01/19 05/01/21 escitalopram oxalate 20 mg PO DAILY 10/01/19 05/01/21 levothyroxine 75 mcg PO DAILY 10/01/19 05/01/21 olanzapine 20 mg PO HS 10/01/19 05/01/21 lithium carbonate 150 mg capsule 300 mg PO BID 09/11/20 05/01/21 amlodipine 5 mg PO DAILY 04/30/21 05/01/21 lisinopril 20 mg PO DAILY 04/30/21 05/01/21 naproxen 500 mg PO BID PRN 05/01/21 05/01/21 Allergies Allergy/AdvReac Type Severity Reaction Status Date / Time gabapentin AdvReac Intermediate Confusion Verified 04/30/21 16:29 Bumble Bee Allergy Severe Anaphylactic Uncoded 04/30/21 16:29 Shock Review of Systems Review of Systems: CONSTITUTIONAL: Denies fever, chills, or sweats. EYES: Denies visual changes, redness, or discharge. ENT: Denies rhinorrhea, congestion, sore throat, or otalgia. CARDIOVASCULAR: Denies chest pain, palpitations, or edema. RESPIRATORY: Denies cough or dyspnea. GASTROINTESTINAL: Denies abdominal pain, nausea, vomiting, or diarrhea. GENITOURINARY: Denies dysuria or hematuria. SKIN: Denies rash or itching. MUSCULOSKELETAL: Denies back pain, joint pain, or myalgia. NEUROLOGIC: Denies headache, numbness, or weakness. PSYCHIATRIC: Denies anxiety or depression. [facility] Past Medical History Medical History Bipolar disorder Cervical radiculopathy Chronic pain syndrome Chronic prescription opiate use Colon cancer Status post partial colectomy. COVID-19 (04/24/21) Depression Hyperlipidemia Hypertension Hypothyroidism Surgical History Surgical History History of appendectomy History of arthroscopy of right shoulder History of cervical spinal surgery History of inguinal hernia repair History of nasal surgery History of partial colectomy History of repair of left rotator cuff History of tonsillectomy Status post left foot surgery Family History Family History Other Cardiac arrest Cirrhosis of liver Social History Social History Social History: The patient lives in [place] with his and family. Nonsmoker. History of alcohol and drug use, clean for 12 years. 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 He designates his , Amy Herman, as his surrogate decision maker. Code status: Full code. Exam Narrative: General appearance: Well-developed, well-nourished Skin: Normal color Head: Normocephalic, nontraumatic Eyes: Clear conjunctiva ENT: Oropharynx normal, ears normal, nose normal Neck: Supple, nontender Chest and respiratory: Airway patent, no respiratory distress, no accessory muscle use Heart: Regular rate/rhythm Abdomen: Soft, nontender, no organomegaly, quiet bowel sounds Vascular: Normal peripheral pulses, normal capillary refill. Musculoskeletal: Normal range of motion, nontender back Neurologic: Alert and oriented ?3, C
[2021-05-20 13:59] LABS: Add Urine Microscopic? NO; Appearance Urine Clear (Clear); Bilirubin Urine Negative (Negative); Blood Urine Negative (Negative); Color Urine Colorless (Yellow); Glucose Urine UA Negative (Negative); Ketones Urine Negative (Negative); Leukocyte Esterase Ur Negative LEU/UL (Negative); Nitrate Urine Negative (Negative); Protein Urine Negative (Negative); Urobilinogen Urine Negative mg/dL (<2.0)
[2021-05-20 14:15] LABS: Specific Grav Ur 1.001 (1.001-1.035)
[2021-05-20 14:18] LABS: Barbiturate Screen Urine Negative (Negative); Benzodiazepines Screen Urine Negative (Negative)
[2021-05-20 14:27] LABS: Amphetamine Screen Urine Negative (Negative); Cannabinoid Screen Urine Negative (Negative); Cocaine Screen Urine Negative (Negative); Methadone Screen Urine Negative (Negative); Opiate Screen Urine Positive (Negative); Phencyclidine Screen Urine Negative (Negative)
--- NOTE | 2021-05-20 18:34 | ADMGEN ---
This patient, Baljeet Herman, was admitted to Medical Room 347-. Patient/family oriented to hospital policies and general routines including ID bracelet, bed and alarms, visiting hours, pain management, procedures, bathroom and other care routines, personal items, smoking policy, room service/diet, and visiting hours. Information on how to activate the Rapid Response Team has been discussed. Patient/Family are encouraged to report perceived risks to care and to ask questions if they do not understand what they are told or what they should do.
[2021-05-20 19:25] LABS: Hepatitis B Surface Antigen Negative (Negative)
[2021-05-20 19:31] LABS: HAV RESULT Negative (Negative); Hepatitis B Core IgM Result Negative (Negative)
[2021-05-20 19:42] LABS: Hepatitis C Virus Antibody Negative (Negative)
[2021-05-20] MEDS: SODIUM CHLORIDE 0.9% IV 1,000 ML 125 ML IV CONT (19:50)
[2021-05-20 22:04] LABS: Ethanol < 10 mg/dL (<10)
--- NOTE | 2021-05-20 23:12 | PM.IMHP ---
H&P: HPI History of Present Illness Date/Time: 05/20/21 22:30 Chief Complaint: falling out Narrative: 55-year-old male with past medical history of bipolar disorder, hypertension, chronic opiate use, and distant history of drug abuse and alcohol abuse who presented to the ER from home after several episodes of syncope. The patient had been admitted to the hospital 05/01/2021 through 05/04/2021 due to dehydration, acute kidney injury and lithium toxicity. He had had some episodes of syncope at that time due to hypotension from hypovolemia Associated with decreased oral intake from his COVID-19 infection on the 23 of April. At the outside hospital they had mention the patient had some bradycardia but during his entire stay at our facility his heart rate would only drop in the 50s while he was asleep. the patient reports that he had 3 episodes of syncope today. The 1st 1 was when he went to get up out of bed. He stood up and made 1 step he started developing tunnel vision and passed out. He hit his right forehead. He does not know how long he was out he assumes it was a couple of minutes but he did not ask his how long he was unconscious. He stated later in the day he was playing with his foster son. He was sitting in the chair and was bent forward while he was playing with a child. He again felt lightheaded and had some tunnel vision and passed out hitting his right forehead. He stated at later in the day he was waiting in the car while his was in the store. When she came out of the store he was unconscious. He states that he could actually hear his talking to him but it took him limited HER2 to respond appropriately. He denies having any loss of bowel or bladder control. He denies having any abdominal pain, nausea or vomiting. He is still on chronic pain medications with [place] but his pain management doctor has cut his [place] down to 1 tablet every 12 hours. He denies any recent alcohol use. In the ER his LFTs were noted to be elevated. He denies any recent medication changes but had been on olanzapine since June. During his last hospitalization he was mildly lithium toxic but there is resolved after IV fluid hydration and normalization of his kidney function. His lithium level today was normal. He has not had any recent travel or GI illness. He denies any fevers or chills. He denies any palpitations or chest pain. He has no evidence of arrhythmia on EKG from ER or on telemetry. orthostatic vital signs performed in the ER were negative but the patient did complain of dizziness with standing. Review of Systems Review of Systems: 12 systems were reviewed with pertinent positives and negatives per HPI. Except as documented in the HPI, all other systems were reviewed and are negative. [facility] Past Medical History Medical History Bipolar disorder Cervical radiculopathy Chronic pain syndrome Chronic prescription opiate use Colon cancer Status post partial colectomy. COVID-19 (04/24/21) Depression Hyperlipidemia Hypertension Hypothyroidism Surgical History Surgical History History of appendectomy History of arthroscopy of right shoulder History of cervical spinal surgery History of inguinal hernia repair History of nasal surgery History of partial colectomy History of repair of left rotator cuff History of tonsillectomy Status post left foot surgery Family History Family History Other Cardiac arrest Cirrhosis of liver Social History Social History (Updated 05/20/21 @ 23:26 by Anne Marie Chavez DO) Social History: The patient lives in [place] with his and family. They have 2 children who are in her 20s and they have Severo foster son who is [id number]. History of alcohol and drug use, clean for 12 years. he is currently unemployed but donato
[2021-05-20] MEDS: LITHIUM CARBONATE 300 MG CAPSULE PO (23:23)
[2021-05-20] MEDS: BACLOFEN 10 MG TABLET PO (23:23)
[2021-05-21] VITALS (13 sets, daily range): BP systolic 106–145; BP diastolic 41–83; PULSE 54–77; RESP 12–18; TEMP 36.3–36.8; O2SAT 97–99
--- NOTE | 2021-05-21 | ECHO_ITS ---
Patient Info Name: Baljeet Herman Age: 55 years : 1965 Gender: Male Ht: 72 in Wt: 207 lbs BSA: 2.20 m2 HR: 57 bpm BP: 122 / 66 mmHg Heart Rhythm: Sinus Rhythm Technical Quality: Fair Exam Date: 05/21/2021 9:39 AM Exam Location: [facility] Card Pulmonary Patient Status: Inpatient Admit Date: 05/20/2021 Staff Ordering Physician: Anne Marie Chavez DO Primer Boxer: Jovanna Saldaña RDCS Attending Provider: Marcus Zuniga MD Referring Physician: Kathy PURVIS; Exam Type: CA echo dop color flow w con Study Info Indications - syncope Complete two-dimensional, color flow and Doppler transthoracic echocardiogram is performed with contrast to opacify the left ventricle and to improve the deliniation of the left ventricle endocardial borders. Contrast/Agitated Saline Contrast/Ag. Saline: Definity Amount: 2.00 ml Administered By: Jovanna Saldaña RDCS Existing IV Access: Yes IV Access Condition: patent with no signs of infiltration Summary 1. LV size is at upper limits of normal, normal LV size thickness, normal LV systolic function, ejection fraction about 70%. Normal diastolic function. Trivial mitral regurgitation. Aortic valve appears normal without hemodynamically significant stenosis. Mild pulmonary hypertension, RVSP 44 mmHg. Sinus rhythm. Left Ventricle Left ventricular chamber dimension is mildly enlarged. Left ventricular systolic function is normal, estimated at 65-70%. There is no increased left ventricular wall thickness. The left ventricular diastolic function is normal. Right Ventricle Right ventricular chamber dimension is normal. Left Atria Left atrial chamber dimension is normal. Aortic Valve The aortic valve is normal. Pulmonic Valve The pulmonic valve is not well visualized. Mitral Valve The mitral valve has normal leaflets. There is trace mitral valve regurgitation. Tricuspid Valve The tricuspid valve leaflets are normal. Mild pulmonary hypertension, estimated pulmonary arterial systolic pressure is 44 mmHg. Pericardium/Pleural The pericardium appears epicardial fat pad. Inferior Vena Cava Normal inferior vena cava with >50% collapse upon inspiration consistent with normal right atrial pressure, 10 mmHg. Aorta The aortic root size at the sinus of Valsalva is normal. Left Ventricular Outflow Tract Name Value Normal LVOT 2D LVOT Diameter 2.01 cm LVOT Doppler LVOT Peak Gradient 5 mmHg LVOT Mean Gradient 2 mmHg LVOT VTI 19.86 cm LVOT VTI/AV VTI Ratio 0.58 LVOT Stroke Volume 62.87 ml LVOT CO 4.88 l/min LVOT CI 2.22 L/min/m2 Pulmonic Valve Name Value Normal RVOT Doppler
[2021-05-21] MEDS: IBUPROFEN 600 MG TABLET PO ×2 (03:12→20:27)
[2021-05-21] MEDS: LEVOTHYROXINE SODIUM 75 MCG TABLET PO (05:52)
[2021-05-21 07:40] LABS: Alanine Aminotransferase 199 U/L (4-50); Albumin Level 3.8 g/dL (3.5-5.1); Alkaline Phosphatase 138 U/L (38-126); Anion Gap 5 mmol/L (8-16); Aspartate Amino Transferase 158 U/L (17-59); Bilirubin,Total 0.3 mg/dL (0.2-1.3); Blood Urea Nitrogen 8 mg/dL (9-20); Calcium 8.9 mg/dL (8.4-10.2); Carbon Dioxide 27 mmol/L (22-30); Chloride 107 mmol/L (98-107); Estimated CRCL calculation 90 ml/min; Estimated Glomerular Filt Rate > 60; Glucose 103 mg/dL (65-110); Potassium 4.1 mmol/L (3.4-5.0); Sodium 139 mmol/L (137-145)
[2021-05-21] MEDS: ATORVASTATIN 40 MG TABLET PO (08:30)
[2021-05-21] MEDS: amLODIPine BESYLATE 5 MG TABLET PO (08:30)
[2021-05-21] MEDS: VENLAFAXINE HCL XR 75 MG CAP.ER.24H 150 MG PO (08:30)
[2021-05-21] MEDS: BACLOFEN 10 MG TABLET PO ×2 (08:30→17:39)
[2021-05-21] MEDS: LITHIUM CARBONATE 300 MG CAPSULE PO ×2 (08:30→17:39)
[2021-05-21] MEDS: lisinopriL 20 MG TABLET PO (08:31)
[2021-05-21] MEDS: HYDROcodone/acetaminophen (*CRX) 10-325 MG TABLET 1 TAB PO ×2 (08:39→17:39)
[2021-05-21] MEDS: PERFLUTREN LIPID MICROSPHERES 1.5 ML VIAL DILUTED TO 10 ML TOTAL VOLUME IV PUSH (10:21)
--- NOTE | 2021-05-21 10:21 | IVDEFINITY ---
Prior to administration of IV Definity the patient was educated on the risks and benefits of the imaging enhancing agent including potential adverse side effects. The patient verbalized understanding. Allergies were verified. No exclusion criteria were identified and at least one of the following inclusion criteria were met: 1) physician request, 2) patient technically difficult to image (per the [place] [employer] Echocardi[employer] guidelines of two or more segments not discernable within the apical view), or 3) questionable left ventricular function. ?
--- NOTE | 2021-05-21 12:17 | PC.NURSE ---
On 05/21/21, the student, Mor Robison, provided care and completed [facility] documentation on this patient. I have reviewed the student's documentation and agree with the findings.
--- NOTE | 2021-05-21 16:50 | PM.IMPN ---
Progress Note: A&P Assessment and Plan (1) Syncope and collapse: Code(s): R55 - Syncope and collapse Status: Acute (2) Elevated liver enzymes: Code(s): R74.8 - Abnormal levels of other serum enzymes Status: Acute (3) Chronic pain: Qualifiers: Chronic pain type: other chronic pain Qualified Code(s): G89.29 - Other chronic pain Code(s): G89.29 - Other chronic pain Status: Acute (4) Bipolar 1 disorder: Code(s): F31.9 - Bipolar disorder, unspecified Status: Acute Additional Plan the patient had heaves having recurrent syncope. Orthostatic vital signs were negative. Patient has not had any evidence of cardiac arrhythmia. He did have borderline bradycardia when he was asleep in at times of rest but is in the hospital last time. He is not bradycardic currently. Causes for syncope could be cardiac in nature versus psychogenic. He has been placed on fall precautions. He is on olanzapine which can be associated with increased syncopal events. olanzapine can also be associated with the elevated transaminases. Will hold the patient's olanzapine for the short-term. Will order right upper quadrant ultrasound of further evaluate patient's elevated LFTs. His acute hepatitis panel in the ER was negative. The patient does take [place] but is down to 2 tablets a day I would not anticipate this causing patient's elevated LFTs. gastroenterology has been consulted for further recommendations. Given the patient's relatively toe dose of [place] will continue this at this time. Will also continue his home baclofen. Will continue patient's home lithium. His lithium level is normal at this time. Patient has been admitted as observation status. 05/21/2021 Interval history: patient remains clinically stable he has no new complaints will continue to monitor have a PT OT evaluate the patient for any syncopal episode with activity, patient cardiac echo essentially normal with normal ejection fraction as well as diastolic, patient with elevated transaminase etiology uncertain possibly drug related, acute hepatitis panel is negative to further evaluate patient had a right upper quadrant ultrasound it showed 1.2 cm liver mass, which may be benign or less likely malignant. Abdomen MRI without and with contrast is recommended. to further evaluate will do the abdominal MRI. will continue to monitor and further recommendation to. Subjective Date/time seen: 05/21/21 16:50 HPI-Narrative Plan : 55-year-old male with past medical history of bipolar disorder, hypertension, chronic opiate use, and distant history of drug abuse and alcohol abuse who presented to the ER from home after several episodes of syncope. The patient had been admitted to the hospital 05/01/2021 through 05/04/2021 due to dehydration, acute kidney injury and lithium toxicity. He had had some episodes of syncope at that time due to hypotension from hypovolemia Associated with decreased oral intake from his COVID-19 infection on the 23 of April. At the outside hospital they had mention the patient had some bradycardia but during his entire stay at our facility his heart rate would only drop in the 50s while he was asleep. the patient reports that he had 3 episodes of syncope today. The 1st 1 was when he went to get up out of bed. He stood up and made 1 step he started developing tunnel vision and passed out. He hit his right forehead. He does not know how long he was out he assumes it was a couple of minutes but he did not ask his how long he was unconscious. He stated later in the day he was playing with his foster son. He was sitting in the chair and was bent forward while he was playing with a child. He again felt lightheaded and had some tunnel vision and passed out hitting his right forehead. He stated at later in the day he was waiting in the car while his was in the store. When she came out of the store he was unconscio
--- NOTE | 2021-05-21 17:49 | WPDGICN ---
Assessment and Plan Assessment and plan (1) Elevated liver enzymes: Code(s): R74.8 - Abnormal levels of other serum enzymes Status: Acute Assessment and Plan: this is a new finding and in the setting of passing out (trending down), had previous episodes with hypovolemia and also COVID infection last month noted liver lesion but probably is benign, will get MRI to confirm (no signs of cirrhosis), also get AFP level hepatitis panel negative (2) Syncope and collapse: Code(s): R55 - Syncope and collapse Status: Acute Assessment and Plan: work up by primary (3) Opiate dependence: Qualifiers: Substance use status: with unspecified opioid-induced disorder Qualified Code(s): F11.29 - Opioid dependence with unspecified opioid-induced disorder Code(s): F11.20 - Opioid dependence, uncomplicated Status: Acute (4) Bipolar 1 disorder: Code(s): F31.9 - Bipolar disorder, unspecified Status: Acute (5) Liver lesion: Code(s): K76.9 - Liver disease, unspecified Status: Acute Assessment and Plan: mri liver (6) Chronic pain: Qualifiers: Chronic pain type: other chronic pain Qualified Code(s): G89.29 - Other chronic pain Code(s): G89.29 - Other chronic pain Status: Acute GI Consult Note Consult date/time: 05/21/21 17:49 Reason for consult: elevated liver enzymes, liver lesion HPI: Baljeet Herman is a 55 year old male with past medical history of bipolar disorder on meds, hypertension, chronic opiate use, and distant history of drug abuse and alcohol abuse who came to the ER from home after several episodes of syncope. He has been admitted to the hospital 05/01/2021 through 05/04/2021 due to dehydration, acute kidney injury and lithium toxicity and had previous episodes of syncope probably due to hypotension and dehydration, also had COVID-19 infection on the 23 of April. He is been admitted this time for another episode of syncope, says that was sitting in the chair then bent forward and felt lightheaded with tunnel vision and passed out. Blood work showed transaminases in 200's which is a new finding, bili, platelets and renal function normal. He denies history of liver disease. Then had abdominal ultrasound reviewed and showed 1.2 cm liver mass, which may be benign or less likely malignant. Hepatitis panel negative Review of Systems Constitutional: Constitutional: Denies chills Eyes: Eyes: Reports no additional eye complaints ENT: Reports Normal hearing present Cardiovascular: Cardiovascular: Denies chest pain Respiratory: Respiratory: Denies dyspnea Gastrointestinal: Gastrointestinal: Denies abdominal pain and Denies nausea Genitourinary: Genitourinary: Denies dysuria Musculoskeletal: Musculoskeletal: Denies neck pain Integumentary/Breasts: Skin/Breast: Denies dry skin Neurologic: Comments: passing out Psychiatric: Psychiatric: Reports anxiety PMFSH Past Medical History Medical History (Updated 05/21/21 @ 17:55 by Jack Frias MD) Bipolar disorder Cervical radiculopathy Chronic pain syndrome Chronic prescription opiate use Colon cancer Status post partial colectomy. COVID-19 (04/24/21) Depression Hyperlipidemia Hypertension Hypothyroidism Liver lesion Surgical History Surgical History History of appendectomy History of arthroscopy of right shoulder History of cervical spinal surgery History of inguinal hernia repair History of nasal surgery History of partial colectomy History of repair of left rotator cuff History of tonsillectomy Status post left foot surgery Family History Family History Other Cardiac arrest Cirrhosis of liver Social History Social History (Updated 05/20/21 @ 23:26 by Anne Marie Chavez DO) Social History: The patient lives in [facility]
[2021-05-22] VITALS (10 sets, daily range): BP systolic 93–126; BP diastolic 53–86; PULSE 56–69; RESP 18; TEMP 35.9–36.7; O2SAT 97–99
[2021-05-22] MEDS: LEVOTHYROXINE SODIUM 75 MCG TABLET PO (06:14)
[2021-05-22] MEDS: HYDROcodone/acetaminophen (*CRX) 10-325 MG TABLET 1 TAB PO ×2 (08:35→17:08)
[2021-05-22] MEDS: LITHIUM CARBONATE 300 MG CAPSULE PO ×2 (08:36→17:09)
[2021-05-22] MEDS: VENLAFAXINE HCL XR 75 MG CAP.ER.24H 150 MG PO (08:36)
[2021-05-22] MEDS: ATORVASTATIN 40 MG TABLET PO (08:36)
[2021-05-22] MEDS: BACLOFEN 10 MG TABLET PO ×2 (08:36→17:09)
[2021-05-22] MEDS: amLODIPine BESYLATE 5 MG TABLET PO (08:36)
[2021-05-22] MEDS: lisinopriL 20 MG TABLET PO (08:36)
[2021-05-22 09:41] LABS: Hematocrit 33.3 % (42.0-52.0); Hemoglobin 10.8 g/dL (14.0-18.0); Mean Corpuscular HGB Conc 32.4 g/dl (32-36); Mean Corpuscular Hemoglobin 31.1 pg (26-34); Mean Platelet Volume 11.7 fl (7.4-10.4); Platelet Count Result 208 k/mm3 (150-375); Red Blood Count 3.47 M/mm3 (4.6-6.20); Red Cell Distribution Width 13.3 % (11.5-14.5); White Blood Count 7.5 K/mm3 (4.5-10.0)
[2021-05-22 09:47] LABS: Alanine Aminotransferase 139 U/L (4-50); Albumin Level 3.7 g/dL (3.5-5.1); Alkaline Phosphatase 113 U/L (38-126); Anion Gap 6 mmol/L (8-16); Aspartate Amino Transferase 89 U/L (17-59); Bilirubin,Total 0.4 mg/dL (0.2-1.3); Blood Urea Nitrogen 11 mg/dL (9-20); Calcium 8.8 mg/dL (8.4-10.2); Carbon Dioxide 25 mmol/L (22-30); Chloride 105 mmol/L (98-107); Estimated CRCL calculation 101 ml/min; Estimated Glomerular Filt Rate > 60; Glucose 154 mg/dL (65-110); Magnesium 1.8 mg/dL (1.6-2.3); Potassium 3.9 mmol/L (3.4-5.0); Sodium 136 mmol/L (137-145)
[2021-05-22] MEDS: LORazepam (*CRX) 1 MG TABLET PO (12:07)
--- NOTE | 2021-05-22 13:01 | PDONCCN ---
HPI - Date of Consult Date/Time: 05/22/21 13:01 Requesting Physician: Marcus Zuniga MD Primary Care Provider: Kevin Meyer, PA - Consult Narrative Reason for consult: Metastatic cancer Narrative: Baljeet Herman is a 55 year old male with history of colon cancer diagnosed 5 years ago status post resection. He has at least stage III disease with 12/08 lymph node positive for malignancy. Patient did not receive any chemotherapy treatment. Patient was seen by Dr. Medellin initially. Now he has been followed up by oncologist at [facility]. Patient now came into the hospital with history of passing out and fall. He is complaining of tiredness and fatigue. He denies any abdominal pain. Denies any melena hematochezia. No nausea vomiting. Denies any recent weight loss. Abdominal MRI showed liver masses suspicious for metastatic disease. Head CT showed came back with no intracranial findings. Denies any other complaints. Review of Systems - Review of Systems All systems reviewed & are unremarkable except as noted in HPI and bel - Neurologic Reports hearing normal [facility] Medical History: Medical History (Last Updated 05/21/21 @ 17:55 by Jack Frias MD) Bipolar disorder Cervical radiculopathy Chronic pain syndrome Chronic prescription opiate use Colon cancer Status post partial colectomy. COVID-19 Onset Date: 04/24/21 Depression Hyperlipidemia Hypertension Hypothyroidism Liver lesion Surgical History: Surgical History (Last Reviewed 05/20/21 @ 23:24 by Anne Marie Chavez DO) History of appendectomy History of arthroscopy of right shoulder History of cervical spinal surgery History of inguinal hernia repair History of nasal surgery History of partial colectomy History of repair of left rotator cuff History of tonsillectomy Status post left foot surgery Family History: Family History (Last Reviewed 05/20/21 @ 23:24 by Anne Marie Chavez DO) Other Cardiac arrest Cirrhosis of liver - Social History Social History: Social History (Last Updated 05/20/21 @ 23:26 by Anne Marie Chavez DO) Alcohol Use: Alcohol intake: never Substance Use: Substance use: current Substance use type: painkillers Last use: 05/20/21 Others: Spiritual care concerns: No Smoking Status: Smoking status: Former smoker Smoking Pack-years: Smoking packs per day: 1 Smoking cigarettes per day: 20.0 Meds Home Medications Medication Instructions Recorded Confirmed Type levothyroxine 75 mcg PO DAILY 10/01/19 05/20/21 History olanzapine 20 mg PO HS 10/01/19 05/20/21 History lithium carbonate 150 mg capsule 300 mg PO BID 09/11/20 05/20/21 History amlodipine 5 mg PO DAILY 04/30/21 05/20/21 History lisinopril 20 mg PO DAILY 04/30/21 05/20/21 History atorvastatin 40 mg DAILY 05/20/21 05/20/21 History baclofen 10 mg PO BID 05/20/21 05/20/21 History hydrocodone-acetaminophen 1 tablet PO BID PRN 05/20/21 05/20/21 History lorazepam 1 mg DAILY PRN 05/20/21 05/20/21 History venlafaxine 150 mg PO DAILY 05/20/21 05/20/21 History Allergies Allergy/AdvReac Type Severity Reaction Status Date / Time gabapentin AdvReac Intermediate Confusion Verified 04/30/21 16:29 Bumble Bee Allergy Severe Anaphylactic Uncoded 04/30/21 16:29 Shock Results - Labs CBC & Chem 7: 05/22/21 09:22 05/22/21 09:22 Labs: Short CBC 05/22/21 Range/Units 09:22 WBC 7.5 (4.5-10.0) K/mm3 Hgb 10.8 L (14.0-18.0) g/dL Hct 33.3 L (42.0-52.0) % Plt Count 208 (150-375) k/mm3 BMP 05/22/21 09:22 Sodium 136 L Potassium 3.9 Chloride 105 Carbon Dioxide 25 BUN 11 Creatinine 0.80 Glucose 154 H Calcium 8.8 Liver Function 05/22/21 Range/Units 09:22 Total Bilirubin 0.4 (0.2-1.3) mg/dL AST 89 H (17-59) U/L ALT 139 H (4-50) U/L Alkaline Phosphatase 113 (38-126) U/L Albumin 3.7 (3.5-5.1) g/dL
[2021-05-22 14:10] LABS: Carcinoembryonic Antigen 0.6 ng/mL (0.0-3.0)
--- NOTE | 2021-05-22 15:46 | PM.DS ---
DS: Admitting Diagnosis Discharge Date 05/22/2021 Admitting Diagnosis Falling out. DS: Discharge Diagnosis Discharge Diagnosis (1) Syncope and collapse: Code(s): R55 - Syncope and collapse Status: Acute (2) Elevated liver enzymes: Code(s): R74.8 - Abnormal levels of other serum enzymes Status: Acute (3) Chronic pain: Qualifiers: Chronic pain type: other chronic pain Qualified Code(s): G89.29 - Other chronic pain Code(s): G89.29 - Other chronic pain Status: Acute (4) Bipolar 1 disorder: Code(s): F31.9 - Bipolar disorder, unspecified Status: Acute DS: Summary Hospital Course Reason for hospitalization: Chief Complaint: falling out Narrative: 55-year-old male with past medical history of bipolar disorder, hypertension, chronic opiate use, and distant history of drug abuse and alcohol abuse who presented to the ER from home after several episodes of syncope. The patient had been admitted to the hospital 05/01/2021 through 05/04/2021 due to dehydration, acute kidney injury and lithium toxicity. He had had some episodes of syncope at that time due to hypotension from hypovolemia Associated with decreased oral intake from his COVID-19 infection on the 23 of April. At the outside hospital they had mention the patient had some bradycardia but during his entire stay at our facility his heart rate would only drop in the 50s while he was asleep. the patient reports that he had 3 episodes of syncope today. The 1st 1 was when he went to get up out of bed. He stood up and made 1 step he started developing tunnel vision and passed out. He hit his right forehead. He does not know how long he was out he assumes it was a couple of minutes but he did not ask his how long he was unconscious. He stated later in the day he was playing with his foster son. He was sitting in the chair and was bent forward while he was playing with a child. He again felt lightheaded and had some tunnel vision and passed out hitting his right forehead. He stated at later in the day he was waiting in the car while his was in the store. When she came out of the store he was unconscious. He states that he could actually hear his talking to him but it took him limited HER2 to respond appropriately. He denies having any loss of bowel or bladder control. He denies having any abdominal pain, nausea or vomiting. He is still on chronic pain medications with G[place] but his pain management doctor has cut his Guthrie down to 1 tablet every 12 hours. He denies any recent alcohol use. In the ER his LFTs were noted to be elevated. He denies any recent medication changes but had been on olanzapine since June. During his last hospitalization he was mildly lithium toxic but there is resolved after IV fluid hydration and normalization of his kidney function. His lithium level today was normal. He has not had any recent travel or GI illness. He denies any fevers or chills. He denies any palpitations or chest pain. He has no evidence of arrhythmia on EKG from ER or on telemetry. orthostatic vital signs performed in the ER were negative but the patient did complain of dizziness with standing. Hospital Course: the patient had heaves having recurrent syncope. Orthostatic vital signs were negative. Patient has not had any evidence of cardiac arrhythmia. He did have borderline bradycardia when he was asleep in at times of rest but is in the hospital last time. He is not bradycardic currently. Causes for syncope could be cardiac in nature versus psychogenic. He has been placed on fall precautions. He is on olanzapine which can be associated with increased syncopal events. olanzapine can also be associated with the elevated transaminases. Will hold the patient's olanzapine for the short-term. Will order right upper quadrant ultrasound of further evaluate patient's elevated LFTs. His acute hepatitis panel in the ER
--- NOTE | 2021-05-22 16:14 | PC.NURSE ---
Pt took shower today 05/22 and yesterday 05/21. Pt was sitting in shower chair the entire time during shower and an aide was in the bathroom with pt the entire time during shower. pt is a very high fall risk.
--- NOTE | 2021-05-22 16:26 | WPDGIPROGNO ---
Progress Note: A&P Assessment and Plan (1) Liver metastases: Code(s): C78.7 - Secondary malignant neoplasm of liver and intrahepatic bile duct Status: Acute Assessment and Plan: this is highly consistent with liver mets and probably could be from colon cancer- treated with surgery about 5 years ago. he was evaluated by oncology and will complete work up and potential treatment as outpatient, probably will need PET scan his GI is Dr Pitts at [facility] (2) Elevated liver enzymes: Code(s): R74.8 - Abnormal levels of other serum enzymes Status: Acute Assessment and Plan: explained by abnormal finding liver by MRI (3) Syncope and collapse: Code(s): R55 - Syncope and collapse Status: Acute (4) Bipolar 1 disorder: Code(s): F31.9 - Bipolar disorder, unspecified Status: Acute (5) Colon cancer: Code(s): C18.9 - Malignant neoplasm of colon, unspecified Status: Inactive Assessment and Plan: he says that had colonoscopy after surgery and supposedly to have another one as outpatient at [facility] but now with possible liver mets Subjective Date/time seen: 05/22/21 16:26 Interval history: MRI showed several lesions in liver consistent with metastatic disease. Patient says that had colon cancer about 5 years ago treated with surgery and did not require chemotherapy. Review of Systems Review of Systems: All systems reviewed & are unremarkable except as noted in HPI and below Exam Const: General: comfortable and no acute distress HENMT: General nose exam: Normal nares present Eyes: General: appearance normal, both eyes and all related structures Neck: Neck: no JVD Resp: Auscultation: clear to auscultation bilaterally Cardio: Rate: regular rate Rhythm: regular rhythm GI: Inspection: non-distended GI Palp: Yes Soft to palpation and No Tenderness to palpation present (GI) Auscultation: normal bowel sounds Skin: General skin exam: normal color Neuro: General: gait normal Speech: normal speech Extrem: General: normal to inspection Psych: Mental Status: mental status grossly normal Objective Data Vital Signs Vital Signs: Vital Signs - 24 hr 05/21/21 20:00 05/21/21 23:37 05/22/21 00:00 Temperature Pulse Rate 54 L 63 Respiratory Rate Blood Pressure Pulse Oximetry 98 05/22/21 00:18 05/22/21 04:00 05/22/21 06:37 Temperature 98.1 F 97.6 F Pulse Rate 57 L 56 L 60 Respiratory Rate 18 18 Blood Pressure 103/53 L 122/55 L Pulse Oximetry 99 97 05/22/21 08:15 05/22/21 11:23 05/22/21 12:00 Temperature Pulse Rate 69 64 Respiratory Rate Blood Pressure Pulse Oximetry 97 05/22/21 14:00 05/22/21 14:02 05/22/21 14:04 Temperature 96.7 F L Pulse Rate 62 61 64 Respiratory Rate 18 Blood Pressure 94/59 L 93/55 L 126/86 Pulse Oximetry 98 Intake/Output Intake/Output: Intake & Output 05/19/21 05/20/21 05/21/21 05/22/21 23:59 23:59 23:59 23:59 Intake Total 1502 1848 1910 Output Total 1700 3000 925 Balance -198 -1152 985 Meds/Results Medications: Active Medications Generic Name Dose Route Start Last Admin Trade Name Freq PRN Reason Stop Dose Admin Hydrocodone Bitart/Acetaminophen 1 tab 05/20/21 23:29 05/22/21 08:35 Hydrocodone/Acetaminophen (*Crx) 10-325 Mg Tablet PO 1 tab BID PRN Administration pain (scale score 7-10) Amlodipine Besylate 5 mg 05/21/21 09:00 05/22/21 08:36 Amlodipine Besylate 5 Mg Tablet PO 5 mg DAILY PATIENCE Administration Atorvastatin Calcium 40 mg 05/21/21 09:00 05/22/21 08:36 Atorvastatin 40 Mg Tablet PO 40 mg DAILY PATIENCE Administration Baclofen 10 mg 05/20/21 23:10 05/22/21 08:36 Baclofen 10 Mg Tablet PO 10 mg BID PATIENCE Administration Ibuprofen 600 mg 05/21/21 02:31 05/21/21 20:27 Ibuprofen 600 Mg Tablet PO 600 mg Q6H PRN Administration Pain Rated 1-3 Levothyroxine Sodium 75 mcg 05/21/21 06:30
[2021-05-22 18:51] LABS: Carcinoembryonic Antigen 0.8 ng/mL (0.0-3.0)
[2021-05-27 18:21] LABS: Alpha Fetoprotein Tumor Marker 1.9 ng/mL (<6.1)
== END 2021-05-22 18:24 | disposition home or self-care (01) ==
LOC: ANHED 16:22 → ANH3MED 17:31
PROVIDERS: Internal Medicine; Internal Medicine Gastroenterology; Internal Medicine Hematology & Oncology; Admitting Provider Internal Medicine; Emergency Provider Emergency Medicine; PCP Physician Assistant; Visit Provider Family Medicine
DX: C78.7 Secondary malignant neoplasm of liver and intrahepatic bile duct (principal); R55 Syncope and collapse; R74.8 Abnormal levels of other serum enzymes; R92.8 Other abnormal and inconclusive findings on diagnostic imaging of breast; I10 Essential (primary) hypertension; E03.9 Hypothyroidism, unspecified; M54.2 Cervicalgia; G89.29 Other chronic pain; M54.12 Radiculopathy, cervical region; F31.9 Bipolar disorder, unspecified; F11.20 Opioid dependence, uncomplicated; Z85.038 Personal history of other malignant neoplasm of large intestine; Z90.49 Acquired absence of other specified parts of digestive tract
CPT/HCPCS: 36415; 70450; 71045; 72125; 74183; 76705; 80053; 80074; 80178; 80307; 81003; 82105; 82378; 82550; 83735; 85025; 85027; 93005; 96361; 96374; 99285; A9270; A9577; C8929; G0378; J7030; Q9957

== ENCOUNTER 2021-05-31 14:37 | Outpatient (CLI) | payer MEDICARE, MEDICAID, SELFPAY ==
[2021-05-31 14:53] LABS: Basophils Absolute Auto 0.1 K/mm3 (0.0-0.1); Basophils Percent Auto 0.5 % (0.2-1.2); Eosinophils Absolute Auto 0.6 K/mm3 (0-0.3); Eosinophils Percent Auto 6.5 % (0-4.4); Hematocrit 37.1 % (42.0-52.0); Immature Granulocyte Absolute 0.02 K/mm3 (0.00-0.031); Immature Granulocyte Percent A 0.2 % (0-0.5); Lymphocytes Absolute Auto 2.22 K/mm3 (0.9-3.2); Mean Corpuscular HGB Conc 32.3 g/dl (32-36); Mean Corpuscular Hemoglobin 31.3 pg (26-34); Mean Corpuscular Volume 96.6 fl (80-100); Mean Platelet Volume 10.5 fl (7.4-10.4); Monocytes Absolute Auto 0.9 K/mm3 (0.1-0.6); Monocytes Percent Auto 10.1 % (2.6-8.5); Neutrophils Absolute Auto 5.4 K/mm3 (1.3-6.7); Neutrophils Percent Auto 58.7 % (45.5-73.1); Platelet Count Result 269 k/mm3 (150-375); Red Blood Count 3.84 M/mm3 (4.6-6.20); White Blood Count 9.2 K/mm3 (4.5-10.0)
[2021-05-31 16:03] LABS: Alanine Aminotransferase 60 U/L (4-50); Albumin Level 4.6 g/dL (3.5-5.1); Alkaline Phosphatase 119 U/L (38-126); Anion Gap 7 mmol/L (8-16); Aspartate Amino Transferase 36 U/L (17-59); Bilirubin,Total 0.5 mg/dL (0.2-1.3); Blood Urea Nitrogen 6 mg/dL (9-20); Calcium 9.2 mg/dL (8.4-10.2); Carbon Dioxide 28 mmol/L (22-30); Chloride 101 mmol/L (98-107); Estimated Glomerular Filt Rate > 60; Glucose 103 mg/dL (65-110); Potassium 3.5 mmol/L (3.4-5.0); Sodium 136 mmol/L (137-145)
== END 2021-05-31 14:38 | disposition home or self-care (01) ==
LOC: ANHLAB 14:40
PROVIDERS: PCP Physician Assistant; Visit Provider Internal Medicine Hematology & Oncology
DX: C18.9 Malignant neoplasm of colon, unspecified (principal)
CPT/HCPCS: 36415; 80053; 85025

== ENCOUNTER 2021-06-18 14:14 | Emergency (ER) | payer MEDICARE, MEDICAID, SELFPAY ==
--- NOTE | ~2021-06-18 | XR_ITS ---
EXAMINATION: XR chest 1V DATE: 06/18/2021 16:47 INDICATION: Syncope. TECHNIQUE: A single frontal view of the chest was obtained. COMPARISON: Chest single view 05/20/2021 FINDINGS: There is mild atelectasis in left lower lung zone. No pleural effusion or pneumothorax. The heart size is normal. There are changes of anterior fusion procedure in cervical spine. IMPRESSION: 1. Mild atelectasis in left lower lung zone. Reviewed, dictated and finalized at location A.
--- NOTE | ~2021-06-18 | CT_ITS ---
EXAMINATION: CT brain wo con DATE: 06/18/2021 16:44 INDICATION: Syncope. TECHNIQUE: Computed tomography (CT) of the head was performed without intravenous contrast. The mA wa s adjusted according to patient size. Iterative reconstruction technique was employed. The dose-lengt h product was 605.33 mGy-cm. COMPARISON: Head CT 05/20/2021 FINDINGS: There is no intracranial hemorrhage, acute infarction, or abnormal intracranial mass lesion . The ventricles are normal in size. The orbits are normal. There is mucosal thickening in the parana genie sinuses. The mastoid air cells are normal. IMPRESSION: 1. Normal brain. Reviewed, dictated and finalized at location A. IMPRESSION: 1. Normal brain.
[2021-06-18 14:22] VITALS: BP 136/90; PULSE 73; RESP 20; TEMP 37.6; O2SAT 100
--- NOTE | 2021-06-18 16:27 | ECG_ITS ---
Measurements Intervals [place] Rate: 60 P: 47 MA: 151 QRS: 65 QRSD: 96 T: 49 QT: 435 QTc: 437 Interpretive Statements SINUS RHYTHM POSSIBLE RIGHT VENTRICULAR CONDUCTION DELAY [RSR (QR) IN V1/V2] NONSPECIFIC T-WAVE ABNORMALITY COMPARED TO ECG 05/20/2021 12:21:27 NO SIGNIFICANT DIFFERENCE Electronically Signed On 06-18-2021 17:44:11 CDT by Paul Aguilar M.D.
--- NOTE | 2021-06-18 16:31 | ED.GENADULT ---
HPI - General Adult General Chief complaint: Unspecified Stated complaint: syncope Time Seen by Provider: 06/18/21 16:22 Source: patient Mode of arrival: ambulatory Limitations: no limitations History of Present Illness HPI narrative: Patient is a 56-year-old male brought in by family due to falling out spells at home x1 month. Patient was seen here twice for similar complaints, had a full work-up done, was diagnosed with psychogenic versus cardiogenic cause of his syncopal episodes. Family also states that patient had a full work-up at [facility], they did not find anything as the cause of his syncopal episodes. states that patient had an EEG, tilt table test, echo, CT, and MRI and still could not find what is causing syncopal episodes. Patient denies any chest pain, shortness of breath, abdominal pain, nausea, vomiting, diarrhea, diaphoresis, fever or chills. Related Data Home Medications Medication Instructions Recorded Confirmed levothyroxine 75 mcg PO DAILY 10/01/19 06/18/21 lithium carbonate 150 mg capsule 300 mg PO BID 09/11/20 06/18/21 atorvastatin 40 mg DAILY 05/20/21 06/18/21 hydrocodone-acetaminophen 1 tablet PO BID PRN 05/20/21 06/18/21 lorazepam 1 mg DAILY PRN 05/20/21 06/18/21 venlafaxine 150 mg PO DAILY 05/20/21 06/18/21 aspirin [Baby Aspirin] 81 mg PO DAILY 06/18/21 06/18/21 lamotrigine 25 mg PO DAILY 06/18/21 06/18/21 olanzapine 5 mg PO HS 06/18/21 06/18/21 Allergies Allergy/AdvReac Type Severity Reaction Status Date / Time gabapentin AdvReac Intermediate Confusion Verified 06/18/21 15:38 Bumble Bee Allergy Severe Anaphylactic Uncoded 06/18/21 15:38 Shock PMFSH Past Medical History Medical History (Updated 06/18/21 @ 18:10 by León Allen MD) Bipolar disorder Cervical radiculopathy Chronic pain syndrome Chronic prescription opiate use Colon cancer Status post partial colectomy. COVID-19 (04/24/21) Depression Hyperlipidemia Hypertension Hypothyroidism Liver lesion Liver metastases Surgical History Surgical History (Updated 05/22/21 @ 13:05 by Jorden Serrano MD) History of appendectomy History of arthroscopy of right shoulder History of cervical spinal surgery History of inguinal hernia repair History of nasal surgery History of partial colectomy History of repair of left rotator cuff History of tonsillectomy Status post left foot surgery Family History Family History Other Cardiac arrest Cirrhosis of liver Social History Social History (Updated 05/20/21 @ 23:26 by Anne Marie Chavez DO) Social History: The patient lives in [place] with his and family. They have 2 children who are in her 20s and they have Severo foster son who is [id number]. History of alcohol and drug use, clean for 12 years. 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 he has 20% disability from the [employer]. he served in the [employer] during [employer]. He designates his , Amy Herman, as his surrogate decision maker. Code status: Full code. Smoking packs per day: 1 Smoking cigarettes per day: 20.0 Smoking status: Former smoker Alcohol intake: never Substance use: current Substance use type: painkillers Last use: 05/20/21 Spiritual care concerns: No Exam Const: General: cooperative, comfortable, no acute distress, well developed, alert and awake; No confusion Orientation/consciousness: oriented to person, oriented to place, oriented to time, patient oriented x3 and No confusion Limitations: no limitations HENMT: Head: normal to inspection, normocephalic and atraumatic Ears: hearing grossly normal bilaterally, TM normal on the right and TM normal on the left General nose exam: Normal external nose present, Normal nares present and No nasal discharge present Face and sinus: normal facial exam Mouth: Yes Normal oral and palatal mucosa present, Yes lip normal, Yes tongue normal and Yes orophar
[2021-06-18 16:34] VITALS: BP 136/83; PULSE 63; PULSE 73; RESP 19; O2SAT 98
[2021-06-18 17:11] LABS: Basophils Absolute Auto 0.1 K/mm3 (0.0-0.1); Basophils Percent Auto 0.4 % (0.2-1.2); Eosinophils Absolute Auto 0.6 K/mm3 (0-0.3); Eosinophils Percent Auto 5.5 % (0-4.4); Hematocrit 37.4 % (42.0-52.0); Hemoglobin 12.1 g/dL (14.0-18.0); Immature Granulocyte Absolute 0.03 K/mm3 (0.00-0.031); Immature Granulocyte Percent A 0.3 % (0-0.5); Lymphocytes Absolute Auto 1.34 K/mm3 (0.9-3.2); Lymphocytes Percent Auto 11.6 % (18.3-44.2); Mean Corpuscular HGB Conc 32.4 g/dl (32-36); Mean Corpuscular Hemoglobin 30.9 pg (26-34); Mean Corpuscular Volume 95.4 fl (80-100); Monocytes Absolute Auto 1.5 K/mm3 (0.1-0.6); Monocytes Percent Auto 12.7 % (2.6-8.5); Neutrophils Percent Auto 69.5 % (45.5-73.1); Platelet Count Result 263 k/mm3 (150-375); Red Blood Count 3.92 M/mm3 (4.6-6.20); Red Cell Distribution Width 13.3 % (11.5-14.5); White Blood Count 11.6 K/mm3 (4.5-10.0)
[2021-06-18 17:21] LABS: Alanine Aminotransferase 327 U/L (4-50); Albumin Level 4.4 g/dL (3.5-5.1); Alkaline Phosphatase 455 U/L (38-126); Anion Gap 8 mmol/L (8-16); Aspartate Amino Transferase 202 U/L (17-59); Bilirubin,Total 3.5 mg/dL (0.2-1.3); Blood Urea Nitrogen 6 mg/dL (9-20); Calcium 9.1 mg/dL (8.4-10.2); Carbon Dioxide 24 mmol/L (22-30); Chloride 104 mmol/L (98-107); Estimated CRCL calculation 100 ml/min; Estimated Glomerular Filt Rate > 60; Glucose 120 mg/dL (65-110); Potassium 3.7 mmol/L (3.4-5.0); Sodium 136 mmol/L (137-145)
[2021-06-18 17:30] VITALS: BP 136/84; PULSE 63; RESP 19; O2SAT 98
[2021-06-18 17:33] LABS: Troponin I < 0.012 ng/mL (0.000-0.034)
[2021-06-18 18:26] VITALS: BP 141/87; PULSE 61; RESP 14; O2SAT 99
== END 2021-06-18 18:15 | disposition home or self-care (01) ==
PROVIDERS: Emergency Provider Emergency Medicine; PCP Physician Assistant
DX: R55 Syncope and collapse (principal); K76.9 Liver disease, unspecified; R74.01 Elevation of levels of liver transaminase levels; E78.5 Hyperlipidemia, unspecified; I10 Essential (primary) hypertension; E03.9 Hypothyroidism, unspecified; G89.4 Chronic pain syndrome; F31.9 Bipolar disorder, unspecified; Z86.16 Personal history of COVID-19; Z85.038 Personal history of other malignant neoplasm of large intestine; Z90.49 Acquired absence of other specified parts of digestive tract; Z79.82 Long term (current) use of aspirin; Z87.891 Personal history of nicotine dependence; R94.31 Abnormal electrocardiogram [ECG] [EKG]
CPT/HCPCS: 36415; 70450; 71045; 80053; 84484; 85025; 93005; 99284

== ENCOUNTER 2021-06-25 12:46 | Emergency (ER) | payer MEDICARE, MEDICAID, SELFPAY ==
--- NOTE | ~2021-06-25 | XR_ITS ---
EXAMINATION: XR chest 1V portable DATE: 06/25/2021 14:54 INDICATION: Syncope. TECHNIQUE: A single frontal view of the chest was obtained. COMPARISON: Chest single view 06/18/2021 FINDINGS: The chest demonstrates clear lungs without pneumonia, pleural effusion, or pneumothorax. Th e heart size is normal. There are changes of anterior fusion procedure in cervical spine. IMPRESSION: 1. No acute cardiopulmonary disease. Reviewed, dictated and finalized at location A.
--- NOTE | 2021-06-25 13:03 | ECG_ITS ---
Measurements Intervals Sims Rate: 62 P: 256 RI: 142 QRS: 71 QRSD: 90 T: 55 QT: 429 QTc: 439 Interpretive Statements ECTOPIC ATRIAL RHYTHM ABNORMAL RHYTHM ECG COMPARED TO ECG 06/18/2021 17:13:32 ECTOPIC ATRIAL RHYTHM NOW PRESENT Electronically Signed On 06-26-2021 14:16:11 CDT by Solange Fernandez M.D.
[2021-06-25 13:07] VITALS: BP 136/106; PULSE 66; RESP 18; TEMP 37.3; O2SAT 100
--- NOTE | 2021-06-25 13:28 | PC.NURSE ---
Patient just had syncopal episode in the waiting room. Pt had pulse, bradycardic upon palpation. RN obtained VS machine, pt then awoke, appeared very pale, BP 140/76 and HR 68 and regular on monitor. generating station mechanic notified for room placement.
[2021-06-25 13:29] VITALS: BP 140/76; PULSE 68; RESP 17; O2SAT 100
--- NOTE | 2021-06-25 14:00 | ED.SYNCOPE ---
HPI - Syncope General Chief Complaint: Syncope Stated Complaint: syncope Time Seen by Provider: 06/25/21 13:46 Source: patient and family Mode of arrival: ambulatory Limitations: no limitations History of Present Illness HPI narrative: 56-year-old male brought into the emergency room is calmly by his . He comes in secondary recurrent syncopal episodes. Is been going on for several weeks. Is been admitted a couple times for this with no clear-cut etiology. I she went to [facility] and was admitted there and was on EEG for 2 days with no seizure activity noted. Began having problems when he had cope with the first of the year. He has had multiple syncopal episodes some of which she is sitting or lying other episodes when he standing. Does not sound like he is ever had a Holter monitor. His states that when he passes out he gets very cold and clammy and his heart rate will drop into the 40s. Denies any chest pain or shortness of breath. Also having some problems with his liver with some lesions noted they are due to have a biopsy of his liver tomorrow. Related Data Home Medications Medication Instructions Recorded Confirmed levothyroxine 75 mcg PO DAILY 10/01/19 06/18/21 lithium carbonate 150 mg capsule 300 mg PO BID 09/11/20 06/18/21 atorvastatin 40 mg DAILY 05/20/21 06/18/21 hydrocodone-acetaminophen 1 tablet PO BID PRN 05/20/21 06/18/21 lorazepam 1 mg DAILY PRN 05/20/21 06/18/21 venlafaxine 150 mg PO DAILY 05/20/21 06/18/21 aspirin [Baby Aspirin] 81 mg PO DAILY 06/18/21 06/18/21 lamotrigine 25 mg PO DAILY 06/18/21 06/18/21 olanzapine 5 mg PO HS 06/18/21 06/18/21 Allergies Allergy/AdvReac Type Severity Reaction Status Date / Time gabapentin AdvReac Intermediate Confusion Verified 06/18/21 15:38 Bumble Bee Allergy Severe Anaphylactic Uncoded 06/18/21 15:38 Shock Review of Systems Review of Systems: CONSTITUTIONAL: Denies fever, chills, or sweats. EYES: Denies visual changes, redness, or discharge. ENT: Denies rhinorrhea, congestion, sore throat, or otalgia. CARDIOVASCULAR: Denies chest pain, palpitations, or edema. RESPIRATORY: Denies cough or dyspnea. GASTROINTESTINAL: Denies abdominal pain, nausea, vomiting, or diarrhea. GENITOURINARY: Denies dysuria or hematuria. SKIN: Denies rash or itching. MUSCULOSKELETAL: Denies back pain, joint pain, or myalgia. NEUROLOGIC: Denies headache, numbness, or weakness. PSYCHIATRIC: Denies anxiety or depression. [facility] Past Medical History Medical History Bipolar disorder Cervical radiculopathy Chronic pain syndrome Chronic prescription opiate use Colon cancer Status post partial colectomy. COVID-19 (04/24/21) Depression Hyperlipidemia Hypertension Hypothyroidism Liver lesion Liver metastases Surgical History Surgical History History of appendectomy History of arthroscopy of right shoulder History of cervical spinal surgery History of inguinal hernia repair History of nasal surgery History of partial colectomy History of repair of left rotator cuff History of tonsillectomy Status post left foot surgery Family History Family History Other Cardiac arrest Cirrhosis of liver Social History Social History Social History: The patient lives in [place] with his and family. They have 2 children who are in her 20s and they have Severo foster son who is [id number]. History of alcohol and drug use, clean for 12 years. 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 he has 20% disability from the [employer]. he served in the [employer] during [employer]. He designates his , Amy Herman, as his surrogate decision maker. Code status: Full code. Smoking packs per day: 1 Smoking cigarettes per day: 20.0 Smoking status: Form
[2021-06-25 14:28] LABS: Add Urine Microscopic? YES; Appearance Urine Clear (Clear); Bilirubin Urine Negative (Negative); Blood Urine 1+ (Negative); Color Urine Colorless (Yellow); Glucose Urine UA Negative (Negative); Ketones Urine Negative (Negative); Leukocyte Esterase Ur Negative LEU/UL (Negative); Nitrate Urine Negative (Negative); Protein Urine Negative (Negative); Urobilinogen Urine Negative mg/dL (<2.0); WBC Urine 0-3 /hpf
[2021-06-25 14:47] LABS: Basophils Absolute Auto 0.1 K/mm3 (0.0-0.1); Basophils Percent Auto 0.8 % (0.2-1.2); Eosinophils Absolute Auto 0.4 K/mm3 (0-0.3); Hematocrit 35.9 % (42.0-52.0); Hemoglobin 11.8 g/dL (14.0-18.0); Immature Granulocyte Absolute 0.04 K/mm3 (0.00-0.031); Immature Granulocyte Percent A 0.4 % (0-0.5); Lymphocytes Absolute Auto 2.33 K/mm3 (0.9-3.2); Lymphocytes Percent Auto 25.1 % (18.3-44.2); Mean Corpuscular HGB Conc 32.9 g/dl (32-36); Mean Corpuscular Hemoglobin 31.4 pg (26-34); Mean Corpuscular Volume 95.5 fl (80-100); Mean Platelet Volume 10.5 fl (7.4-10.4); Monocytes Absolute Auto 0.8 K/mm3 (0.1-0.6); Monocytes Percent Auto 8.4 % (2.6-8.5); Neutrophils Absolute Auto 5.7 K/mm3 (1.3-6.7); Neutrophils Percent Auto 61.3 % (45.5-73.1); Platelet Count Result 378 k/mm3 (150-375); Red Blood Count 3.76 M/mm3 (4.6-6.20); Red Cell Distribution Width 12.7 % (11.5-14.5); White Blood Count 9.3 K/mm3 (4.5-10.0)
[2021-06-25 14:49] LABS: Specific Grav Ur 1.001 (1.001-1.035)
[2021-06-25 14:57] LABS: Partial Thromboplastin Time 22.6 SECONDS (22.3-36.8); Prothrombin Time 12.5 Seconds (11.1-14.7)
[2021-06-25 14:58] LABS: Ammonia < 9 umol/L (9-30)
[2021-06-25 14:59] LABS: Alanine Aminotransferase 108 U/L (4-50); Albumin Level 4.2 g/dL (3.5-5.1); Alkaline Phosphatase 350 U/L (38-126); Anion Gap 8 mmol/L (8-16); Aspartate Amino Transferase 64 U/L (17-59); Bilirubin,Total 0.6 mg/dL (0.2-1.3); Blood Urea Nitrogen 10 mg/dL (9-20); Calcium 9.1 mg/dL (8.4-10.2); Carbon Dioxide 24 mmol/L (22-30); Chloride 105 mmol/L (98-107); Estimated CRCL calculation 113 ml/min; Estimated Glomerular Filt Rate > 60; Glucose 98 mg/dL (65-110); Potassium 3.6 mmol/L (3.4-5.0); Sodium 137 mmol/L (137-145)
--- NOTE | 2021-06-25 15:10 | PC.NURSE ---
Per female in pts room, had episode of passing out again and was unresponsive to her stimuli. This RN and Emerald Renee RN checked tele monitor pt was on and noted no changes during duration of stay. HR remained 60s and NSR. EDP made aware, pt continues to be on cafeteria monitor and is Alert and [place] at this time w/ VSS.
[2021-06-25 15:11] LABS: Troponin I < 0.012 ng/mL (0.000-0.034)
[2021-06-25 15:15] VITALS: BP 149/77; PULSE 63; RESP 19; O2SAT 100
[2021-06-25 16:16] VITALS: BP 135/86; PULSE 66; RESP 16
[2021-06-25 16:46] VITALS: BP 145/81; PULSE 63; RESP 16
== END 2021-06-25 16:46 | disposition home or self-care (01) ==
PROVIDERS: Emergency Medicine; Emergency Provider Emergency Medicine; PCP Physician Assistant
DX: R55 Syncope and collapse (principal); F31.9 Bipolar disorder, unspecified; G89.4 Chronic pain syndrome; E78.5 Hyperlipidemia, unspecified; I10 Essential (primary) hypertension; E03.9 Hypothyroidism, unspecified; Z85.038 Personal history of other malignant neoplasm of large intestine; Z90.49 Acquired absence of other specified parts of digestive tract; Z86.16 Personal history of COVID-19; Z87.891 Personal history of nicotine dependence
CPT/HCPCS: 36415; 71045; 80053; 81001; 82140; 84484; 85025; 85610; 85730; 93005; 99284

== ENCOUNTER 2021-06-26 08:35 | Outpatient (CLI) | payer MEDICARE, MEDICAID, SELFPAY ==
[2021-06-18 15:45] VITALS: BMI 26.8
--- NOTE | 2021-06-18 15:51 | PC.NURSE ---
Pre Radiology instructions Report to the Outpatient Waiting Room, entrance under the green pavilion located off [facility], at time 0830 on date 06/26/21. Procedure Time: 1030. One visitor will be allowed to accompany the patient into the hospital. The visitor will be instructed to remain with patient at all times or leave the building. We will allow the visitor to come back to the postoperative area when patient is ready. You and your visitor will be asked a series of questions to screen for COVID 19 for your protection. A mask is required within the hospital. Pre-procedure COVID Testing Requirements: No COVID Test needed if: (proof is required; if not received patient will have Rapid Test prior to entry)- Patient has received COVID Vaccine at least 14 days prior to procedure date or- Patient has positive COVID test result within last 90 days of procedure date. COVID Test needed if above criteria is not met Patients are to have no food or drink 6 hours prior to procedure time Driving will be restricted after the procedure, you must have a person to drive you home. Labs will be drawn in preop area and once reviewed, you will be taken to radiology area for procedure. When the procedure is completed, you will be taken to outpatient where you will be monitored for several hours. You may have one visitor in this area. Other than holding anti-coagulants, patient may take other medication(s) as scheduled. Prior to your appointment date patients are instructed to hold anti-coagulants after discussing with ordering provider to stop. If unable to discontinue anti-coagulants please notify radiologist. No aspirin or warfarin (Coumadin) for 7 days prior to the procedure. No clopidogrel (Plavix), ticagrelor (Brilinta), prasugrel (Effient) or dabigatran (Pradaxa) for 5 days prior to the procedure. No rivaroxaban (Xarelto), apixaban (Eliquis), dipyridamole (Aggrenox or Persantine) or cilostazol (Pletal) for 2 days prior to the procedure. Medications to discontinue per physician: ASPIRIN Date to take last dose: 06/18/21 Please leave all valuables, including medications, at home the day of procedure. The hospital will not accept responsibility for valuables. Wear comfortable, loose fitting clothing. Follow any additional instructions given to you from ordering provider. Telephone instructions given to and asked if any additional questions and then verbalized understanding. Patient advised to call scheduling provider office or registration scheduling [phone] if any additional questions.
[2021-06-26] VITALS (11 sets, daily range): BP systolic 113–144; BP diastolic 61–79; PULSE 57–67; RESP 14–18; TEMP 36.3; O2SAT 98–100
--- NOTE | ~2021-06-26 | US_ITS ---
EXAMINATION: US biopsy liver DATE: 06/26/2021 10:27 INDICATION: Liver mass. Malignant neoplasm of colon. TECHNIQUE: The procedure including the risks, benefits, and alternatives was discussed with the patie nt. Risks discussed included bleeding and infection. The patient understood the risks and agreed to p roceed. The skin overlying the liver was prepped and draped in usual sterile fashion. Anesthetic was administered with 1% lidocaine subcutaneously. An 18 gauge core biopsy needle was then used to obta in 4 core biopsy specimens under continuous sonographic guidance. The entry site was cleaned and dres sed. There were no immediate complications. FINDINGS: Ultrasound images demonstrate the needle in a 1.9 cm mass in right hepatic lobe. IMPRESSION: 1. Ultrasound-guided core needle biopsy of a liver mass. Reviewed, dictated and finalized at location A.
--- NOTE | 2021-06-26 11:56 | SUR.PHASEII ---
1150 rn notified by patients that patient was having a syncopal episode while in the chair. patient was arousable after about 30 seconds, vital signs stable during the event. dr wilson notified(vm left)
== END 2021-06-26 14:31 | disposition home or self-care (01) ==
PROVIDERS: PCP Physician Assistant; Referring Provider Internal Medicine Hematology & Oncology; Visit Provider Radiology Diagnostic Radiology
PROC: BF45ZZZ Ultrasonography of Liver (ICD-10-PCS; CPT 47000; principal; 2021-06-26 10:30)
DX: C18.9 Malignant neoplasm of colon, unspecified (principal)
CPT/HCPCS: 47000; 76942; 88307; 88342

== ENCOUNTER 2021-08-20 08:39 | Outpatient (CLI) | payer MEDICARE, MEDICAID, SELFPAY ==
--- NOTE | 2021-08-20 11:00 | NEURO_ITS ---
Impression: # Complains of numbness of upper and lower extremities. # Bilateral ulnar neuropathy across the elbows. # Subtle right Carpal Tunnel Syndrome. # Normal nerve conduction study in lower extremities. # Normal needle/EMG exam. Nerve Conduction Studies Anti Sensory Summary Table Stim Site NR Peak (ms) P-T Amp (?V) Site1 Site2 Delta-P (ms) Dist (cm) Roberto (m/s) Left Median Anti Sensory (2-3nd Digit) Wrist 3.0 46.7 Wrist 2-3nd Digit 3.0 14.0 47 Wrist 3.0 56.4 Wrist 2-3nd Digit 3.0 14.0 47 Right Median Anti Sensory (2-3nd Digit) Wrist 3.2 30.9 Wrist 2-3nd Digit 3.2 14.0 44 Wrist 3.1 65.5 Wrist 2-3nd Digit 3.2 14.0 44 Left Radial Anti Sensory (Base 1st Digit) Wrist 2.3 33.3 Wrist Base 1st Digit 2.3 0.0 Right Radial Anti Sensory (Base 1st Digit) Wrist 3.2 12.3 Wrist Base 1st Digit 3.2 0.0 Left Sup Fibular Anti Sensory (Ant Lat Mall) 14 cm 3.3 17.0 14 cm Ant Lat Mall 3.3 16.0 48 Right Sup Fibular Anti Sensory (Ant Lat Mall) 14 cm 3.5 13.6 14 cm Ant Lat Mall 3.5 16.0 46 Left Sural Anti Sensory (Lat Mall) Calf 3.7 10.4 Calf Lat Mall 3.7 16.0 43 Right Sural Anti Sensory (Lat Mall) Calf 3.5 6.9 Calf Lat Mall 3.5 16.0 46 Left Ulnar Anti Sensory (5th Digit) Wrist 2.8 31.8 Wrist 5th Digit 2.8 14.0 50 Right Ulnar Anti Sensory (5th Digit) Wrist 2.9 12.3 Wrist 5th Digit 2.9 14.0 48 Motor Summary Table Stim Site NR Onset (ms) O-P Amp (mV) Site1 Site2 Delta-0 (ms) Dist (cm) Roberto (m/s) Left Median Motor (Abd Poll Brev) Wrist 3.0 5.6 Elbow Wrist 5.4 30.0 56 Elbow 8.4 3.0 Right Median Motor (Abd Poll Brev) Wrist 4.1 3.6 Elbow Wrist 5.3 30.0 57 Elbow 9.4 3.0 Left Peroneal Motor (Vastus Med) Ankle 4.6 2.7 Popit Ankle 8.5 41.0 48 Popit 13.1 1.8 Right Peroneal Motor (Vastus Med) Ankle 4.3 5.1 Popit Ankle 8.4 39.0 46 Popit 12.7 2.9 Left Tibial Motor (Abd Gutierrez Brev) Ankle 4.7 0.6 Knee Ankle 10.3 45.0 44 Knee 15.0 0.7 Right Tibial Motor (Abd Gutierrez Brev) Ankle 5.0 2.3 Knee Ankle 9.6 43.0 45 Knee 14.6 2.1 Left Ulnar Motor (Abd Dig Minimi) Wrist 2.5 6.8 A Elbow Wrist 6.6 33.0 50 A Elbow 9.1 6.3 B Elbow Wrist 4.5 23.0 51 B Elbow 7.0 4.8 Right Ulnar Motor (Abd Dig Minimi) Wrist 3.0 5.6 A Elbow Wrist 6.5 31.0 48 A Elbow 9.5 4.6 B Elbow Wrist 3.4 21.0 62 B Elbow 6.4 4.6 F Wave Studies NR F-Lat (ms) L-R F-Lat (ms) Left Median (Mrkrs) (Abd Poll Brev) 30.84 0.74 Right Median (Mrkrs) (Abd Poll Brev) 31.58 0.74 Left Peroneal (Mrkrs) (EDB) 57.59 1.10 Right Peroneal (Mrkrs) (EDB) 56.49 1.10 Left Tibial (Mrkrs) (Abd Hallucis) 57.58 1.64 Right Tibial (Mrkrs) (Abd Hallucis) 55.95 1.64 Left Ulnar (Mrkrs) (Abd Dig Min) 31.15 0.17 Right Ulnar (Mrkrs) (Abd Dig Min) 30.98 0.17 EMG Side Muscle Nerve Root Ins Act Fibs Amp Dur Recrt Comment Right 1stDorInt Ulnar C8-T1 Nml Nml Nml Nml Nml Right Ext Indicis Radial (Post Int) C7-8 Nml Nml Nml Nml Nml Right Ext Digitorum Radial (Post Int) C7-8 Nml Nml Nml Nml Nml Right BrachioRad Radial C5-6 Nml Nml Nml Nml Nml Right PronatorTeres Median C6-7 Nml Nml Nml Nml Nml Right Abd
== END 2021-08-20 08:40 | disposition home or self-care (01) ==
PROVIDERS: PCP Physician Assistant; Visit Provider Psychiatry & Neurology Neurology
DX: R55 Syncope and collapse (principal); R53.1 Weakness; G62.9 Polyneuropathy, unspecified; G56.23 Lesion of ulnar nerve, bilateral upper limbs; G56.01 Carpal tunnel syndrome, right upper limb
CPT/HCPCS: 95886; 95913

== ENCOUNTER 2021-10-03 14:11 | Outpatient (CLI) | payer MEDICARE, MEDICAID, SELFPAY ==
[2021-10-03 14:47] LABS: Basophils Absolute Auto 0.1 K/mm3 (0.0-0.1); Basophils Percent Auto 0.6 % (0.2-1.2); Eosinophils Absolute Auto 0.3 K/mm3 (0-0.3); Eosinophils Percent Auto 2.7 % (0-4.4); Hematocrit 44.2 % (42.0-52.0); Immature Granulocyte Absolute 0.04 K/mm3 (0.00-0.031); Immature Granulocyte Percent A 0.3 % (0-0.5); Lymphocytes Absolute Auto 2.62 K/mm3 (0.9-3.2); Lymphocytes Percent Auto 22.4 % (18.3-44.2); Mean Corpuscular HGB Conc 33.9 g/dl (32-36); Mean Corpuscular Hemoglobin 30.2 pg (26-34); Mean Corpuscular Volume 89.1 fl (80-100); Mean Platelet Volume 10.2 fl (7.4-10.4); Monocytes Percent Auto 8.5 % (2.6-8.5); Neutrophils Absolute Auto 7.7 K/mm3 (1.3-6.7); Neutrophils Percent Auto 65.5 % (45.5-73.1); Platelet Count Result 370 k/mm3 (150-375); Red Blood Count 4.96 M/mm3 (4.6-6.20); Red Cell Distribution Width 13.2 % (11.5-14.5); White Blood Count 11.7 K/mm3 (4.5-10.0)
[2021-10-03 15:29] LABS: Alanine Aminotransferase 29 U/L (6-50); Albumin Level 4.7 g/dL (3.5-5.1); Alkaline Phosphatase 103 U/L (38-126); Anion Gap 9 mmol/L (8-16); Aspartate Amino Transferase 27 U/L (17-59); Bilirubin,Total 0.4 mg/dL (0.2-1.3); Blood Urea Nitrogen 10 mg/dL (9-20); Calcium 9.6 mg/dL (8.4-10.2); Carbon Dioxide 31 mmol/L (22-30); Chloride 98 mmol/L (98-107); Estimated Glomerular Filt Rate > 60; Glucose 153 mg/dL (65-110); Potassium 3.8 mmol/L (3.4-5.0); Sodium 138 mmol/L (137-145)
[2021-10-07 21:36] LABS: EBV Nuclear Ab Antibody >600.00 U/mL (<18.00); EBV Nuclear Ab Interpretation Past; EBV Virus Capsid Ag IgG Ab >750.00 U/mL (<18.00); EBV Virus Capsid Ag IgM Ab <36.00 U/mL (<36.00)
[2021-10-07 23:16] LABS: Vitamin D 1,25 (OH)2 Total 61 pg/mL (18-72); Vitamin D2 1,25 (OH)2 <8 pg/mL; Vitamin D3 1,25 (OH)2 61 pg/mL
[2021-10-15 15:41] LABS: Serotonin 60 ng/mL (56-244)
== END 2021-10-03 14:12 | disposition home or self-care (01) ==
PROVIDERS: PCP Physician Assistant; Visit Provider Internal Medicine Hematology & Oncology
DX: U09.9 Post COVID-19 condition, unspecified (principal); C7A.022 Malignant carcinoid tumor of the ascending colon
CPT/HCPCS: 36415; 80053; 82652; 84260; 85025; 86316; 86664; 86665

== ENCOUNTER 2021-10-24 16:27 | Emergency (ER) | payer MEDICARE, MEDICAID, SELFPAY ==
--- NOTE | 2021-10-24 16:57 | ED.GENADULT ---
HPI - General Adult General Chief complaint: Weakness Stated complaint: Sore Throat/Nausea Time Seen by Provider: 10/24/21 16:58 Mode of arrival: ambulatory Limitations: no limitations History of Present Illness HPI narrative: 56 year old male who presents to express care with complaint of being weak, having some nausea and vomiting and also sore throat worse since Thursday. Patient has history of colon cancer with metastasis to liver and recently on the 07 of October had Y90 mapping at [facility] and then had bead implants done on the . Patient states that they told him he wouldn't feel well but he reports that his appetite is decreased and his oral intake also, feels weak and has sore throat with yellow productive cough. Patient is pale grayish color with blood pressure 90/70 which patient states is decreased for him, reports that he does not feel dizzy. Patient states that he hasnot had a fever that he is aware of or any chills or sweats, does report generalized aching MD complaint: weakness, nausea and vomiting, sore throat, productive cough. Onset (ago): day(s) (increased past 2 days) Severity scale (1-10): 10 Related Data Home Medications Medication Instructions Recorded Confirmed levothyroxine 75 mcg tablet 75 mcg PO DAILY 10/01/19 10/10/21 lorazepam 1 mg tablet 1 mg DAILY PRN anxiety 05/20/21 10/10/21 aspirin 81 mg chewable tablet 81 mg PO DAILY 06/18/21 10/10/21 lamotrigine 25 mg tablet 25 mg PO DAILY 06/18/21 10/10/21 tramadol 50 mg tablet 50 mg PO Q4H PRN pain 09/12/21 10/10/21 Allergies Allergy/AdvReac Type Severity Reaction Status Date / Time gabapentin AdvReac Intermediate Confusion Verified 10/10/21 10:18 Bumble Bee Allergy Severe Anaphylactic Uncoded 10/10/21 10:18 Shock Review of Systems Review of Systems: CONSTITUTIONAL: Denies known fever, chills, or sweats. EYES: Denies visual changes, redness, or discharge. ENT: Denies rhinorrhea, congestion,positive for sore throat, no otalgia. CARDIOVASCULAR: Denies chest pain, palpitations, or edema. RESPIRATORY: Positive for productive cough denies dyspnea, reports weakness and body aches. GASTROINTESTINAL: Denies abdominal pain, nausea, vomiting, or diarrhea. GENITOURINARY: Denies dysuria or hematuria. SKIN: Denies rash or itching. MUSCULOSKELETAL: Denies back pain, joint pain, body aches NEUROLOGIC: Denies headache, numbness, or weakness. PSYCHIATRIC: Positive for anxiety or depression. All systems reviewed & are unremarkable except as noted in HPI and below PMFSH Past Medical History Medical History Bipolar disorder Cervical radiculopathy Chronic pain syndrome Chronic prescription opiate use Colon cancer Status post partial colectomy. COVID-19 (04/24/21) Depression Hyperlipidemia Hypertension Hypothyroidism Liver lesion Liver metastases Surgical History Surgical History History of appendectomy History of arthroscopy of right shoulder History of cervical spinal surgery History of inguinal hernia repair History of nasal surgery History of partial colectomy History of repair of left rotator cuff History of tonsillectomy Status post left foot surgery Family History Family History Other Cardiac arrest Cirrhosis of liver Social History Social History Social History: The patient lives in [place] with his and family. They have 2 children who are in her 20s and they have Severo foster son who is [id number]. History of alcohol and drug use, clean for 12 years. 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 he has 20% disability from the [employer]. he served in the [employer] during [employer]. He designates his , Amy Herman, as his surrogate decision maker. Code status: Full code. Smoking packs per day: 0.5 Smoking cigarettes per day: 10.
[2021-10-24 16:58] VITALS: BP 96/71; PULSE 78; RESP 20; TEMP 37.3; O2SAT 99
== END 2021-10-24 17:00 | disposition short-term general hospital (02) ==
PROVIDERS: Emergency Provider Registered Nurse; PCP Physician Assistant
DX: R53.1 Weakness (principal); J02.9 Acute pharyngitis, unspecified; R05.9 Cough, unspecified; C78.7 Secondary malignant neoplasm of liver and intrahepatic bile duct; Z85.038 Personal history of other malignant neoplasm of large intestine; E78.5 Hyperlipidemia, unspecified; I10 Essential (primary) hypertension; E03.9 Hypothyroidism, unspecified; F31.9 Bipolar disorder, unspecified; Z79.82 Long term (current) use of aspirin; Z87.891 Personal history of nicotine dependence
CPT/HCPCS: 99212; G0463

== ENCOUNTER 2021-11-15 22:51 | Emergency (ER) | payer MEDICARE, MEDICAID, SELFPAY ==
--- NOTE | ~2021-11-15 | CT_ITS ---
EXAMINATION: CT abdomen pelvis wo con DATE: 11/15/2021 23:31 INDICATION: Right flank pain TECHNIQUE: Computed tomography (CT) of the abdomen and pelvis was performed without intravenous contr ast. The dose-length product (DLP) was 275.22 mGy-cm. Automated exposure control and iterative recons truction technique were employed. COMPARISON: 02/18/2015 FINDINGS: Minimal dependent atelectasis is present in the lung bases. The heart size is normal. The l iver, spleen, pancreas, gallbladder, and adrenal glands are normal. The left kidney is unremarkable. Nonobstructing stones of the right kidney measure up to 10 mm. No pathologically enlarged abdominal o r pelvic lymph nodes are identified. There is no free intraperitoneal gas or evidence of bowel obstru ction. A moderate volume of colonic stool is present. There is mild wall thickening of the urinary bl adder. There are bilateral L5 pars defects with 4 mm of anterolisthesis of L5 on S1. IMPRESSION: 1. Nonobstructing right nephrolithiasis. 2. Mild wall thickening of the urinary bladder which could be due to incomplete distention versus cys titis. Reviewed, dictated and finalized at location A. IMPRESSION: 1. Nonobstructing right nephrolithiasis. 2. Mild wall thickening of the urinary bladder which could be due to incomplete distention versus cystitis.
[2021-11-15 22:54] VITALS: BP 130/85; PULSE 66; RESP 16; TEMP 36; O2SAT 97
--- NOTE | 2021-11-15 23:00 | ED.ABDPAIN ---
HPI - Abdominal Pain General Chief Complaint: Abdominal Pain Stated Complaint: abd pain, difficulty urinating, frequency Time Seen by Provider: 11/15/21 22:55 Source: patient and RN notes reviewed Mode of arrival: ambulatory Limitations: no limitations History of Present Illness HPI narrative: patient had a kidney stone 2 mm in size which he says is not passed yet. He still having pain in his right lower quadrant down into his groin towards his right scrotum. He states he denies any dysuria. He is having increased frequency. MD elicited complaint: abdominal pain Pertinent past history: kidney stones Onset (ago): week(s) (3) Pain Consistency: constant Location: RLQ and groin Severity: moderate Quality: aching and dull Migration to: no migration Exacerbating factors: nothing Relieving factors: movement Context: confirms history of similar episodes Associated symptoms: denies other symptoms Related Data Home Medications Medication Instructions Recorded Confirmed levothyroxine 75 mcg tablet 75 mcg PO DAILY 10/01/19 11/15/21 lorazepam 1 mg tablet 1 mg DAILY PRN anxiety 05/20/21 11/15/21 lamotrigine 25 mg tablet 25 mg PO DAILY 06/18/21 11/15/21 tramadol 50 mg tablet 50 mg PO Q4H PRN pain 09/12/21 11/15/21 amlodipine 10 mg tablet 10 mg PO DIRECTED 11/15/21 11/15/21 venlafaxine 150 mg 150 mg PO DIRECTED 11/15/21 11/15/21 capsule,extended release 24 hr Allergies Allergy/AdvReac Type Severity Reaction Status Date / Time gabapentin AdvReac Intermediate Confusion Verified 11/15/21 23:10 Bumble Bee Allergy Severe Anaphylactic Uncoded 11/07/21 09:59 Shock Review of Systems Review of Systems: All systems reviewed & are unremarkable except as noted in HPI and below Constitutional: Constitutional: Denies chills and Denies fever(s) PMFSH Past Medical History Medical History Bipolar disorder Cervical radiculopathy Chronic pain syndrome Chronic prescription opiate use Colon cancer Status post partial colectomy. COVID-19 (04/24/21) Depression Hyperlipidemia Hypertension Hypothyroidism Liver lesion Liver metastases Surgical History Surgical History History of appendectomy History of arthroscopy of right shoulder History of cervical spinal surgery History of inguinal hernia repair History of nasal surgery History of partial colectomy History of repair of left rotator cuff History of tonsillectomy Status post left foot surgery Family History Family History Other Cardiac arrest Cirrhosis of liver Social History Social History Social History: The patient lives in [place] with his and family. They have 2 children who are in her 20s and they have Severo foster son who is [id number]. History of alcohol and drug use, clean for 12 years. 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 he served in the [employer] during [employer]. He designates his , Amy Herman, as his surrogate decision maker. Code status: Full code. Smoking packs per day: 0.5 Smoking cigarettes per day: 10.0 Years smoked: 13 Smoking pack-years: 6.50 Smoking status: Former smoker Tobacco type: cigarettes Alcohol intake: never Substance use: current Substance use type: painkillers Last use: 05/20/21 Spiritual care concerns: No Exam Const: General: healthy appearing, no acute distress, alert and ill appearing chronically Nutritional Appearance: well nourished Orientation/consciousness: patient oriented x3 Limitations: no limitations HENMT: Head: normal to inspection Ears: external ears normal Eyes: Conjunctivae: conjunctivae normal Pupils: Equal, round and reactive pupils present EOM: EOMs intact bilaterally Neck: Neck: normal visual insp
[2021-11-15] MEDS: KETOROLAC 30 MG/ML VIAL (*BKC) IM (23:08)
[2021-11-15 23:15] LABS: Hematocrit 36.7 % (40.0-54.0); Hemoglobin 12.6 g/dL (14.0-18.0); Mean Corpuscular HGB Conc 34.3 g/dL (32.0-36.0); Mean Corpuscular Hemoglobin 31.1 pg (27.0-31.0); Mean Corpuscular Volume 90.6 fL (78.0-102.0); Mean Platelet Volume 10.7 fl (8.7-11.0); Platelet Count Result 256 K/mm3 (150-420); Red Blood Count 4.05 M/mm3 (4.70-6.10); Red Cell Distribution Width 12.9 % (11.6-14.4); White Blood Count 8.2 K/mm3 (4.8-10.8)
[2021-11-15 23:25] LABS: Anion Gap 6 mmol/L (8-16); Blood Urea Nitrogen 10 mg/dL (7-18); Calcium 9.1 mg/dL (8.5-10.1); Carbon Dioxide 28 mmol/L (21-32); Chloride 98 mmol/L (98-108); Estimated Glomerular Filt Rate > 60; Glucose 103 mg/dL (70-99); Osmolality Calculated 273 mOsm/kg (285-295); Potassium 3.8 mmol/L (3.5-5.1); Sodium 132 mmol/L (136-145)
[2021-11-15 23:55] LABS: Appearance Urine Clear (Clear); Bilirubin Urine Negative (Negative); Color Urine Yellow (Yellow); Glucose Urine UA Negative (Negative); Ketones Urine Trace (Negative); Leukocyte Esterase Ur 1+ (Negative); Nitrate Urine Negative (Negative); Protein Urine 1+ (Negative); Specific Grav Ur 1.015 (1.010-1.020)
[2021-11-16] LABS: Add Urine Microscopic? YES; Bacteria Urine 1+ /hpf; Blood Urine Trace-Intact (Negative); Mucus Urine Moderate /lpf; RBC Urine 0-2 /hpf (0-2); Squamous Epithelial Cell Urine Rare /hpf (Few)
[2021-11-16] MEDS: SULFAMETHOXAZOLE/TRIMETHOPRIM 800/160 MG DS TABLET 1 TAB PO (00:35)
[2021-11-16 00:37] VITALS: BP 135/89; PULSE 58; RESP 16; TEMP 36; O2SAT 97
== END 2021-11-16 00:40 | disposition home or self-care (01) ==
PROVIDERS: Emergency Provider Emergency Medicine; PCP Physician Assistant
DX: N39.0 Urinary tract infection, site not specified (principal)
CPT/HCPCS: 36415; 74176; 80048; 81001; 85027; 96372; 99284; A9270; J1885

== ENCOUNTER 2022-01-30 14:43 | Emergency (ER) | payer MEDICARE, MEDICAID, SELFPAY ==
[2022-01-30 14:44] VITALS: BP 146/85; PULSE 61; RESP 16; TEMP 36.2; O2SAT 98
[2022-01-30 14:45] VITALS: BP 146/85; PULSE 61; RESP 18; TEMP 36.2; O2SAT 98
[2022-01-30 14:57] VITALS: BP 146/85; PULSE 61; RESP 16; TEMP 36.2; O2SAT 98
--- NOTE | 2022-01-30 14:58 | ED.BACK ---
HPI - Back Pain/Injury General Chief Complaint: Back Pain/Injury Stated Complaint: Back and knee pain for 2 weeks Time Seen by Provider: 01/30/22 14:47 Source: patient Mode of arrival: ambulatory Limitations: no limitations History of Present Illness HPI Narrative: this is a 56-year-old gentleman presents with back pain it is right lower lumbar pain radiating into his right upper leg with some tingling, has good range of motion no known injuries no saddle paresthesias no fever chills no bowel or bladder dysfunction. Rates his pain about an 8/10 and tried calling his primary that has no appointment for 2 weeks. MD elicited complaint: back pain Onset (ago): week(s) Timing: intermittent Severity: moderate Pain scale (0-10): 8 Quality: aching and tingling Location: lumbar spine Radiation: right upper leg Exacerbating factors: immobilization Relieving factors: movement Related Data Home Medications Medication Instructions Recorded Confirmed levothyroxine 75 mcg tablet 75 mcg PO DAILY 10/01/19 01/30/22 venlafaxine 150 mg 150 mg PO DIRECTED 11/15/21 01/30/22 capsule,extended release 24 hr quetiapine 25 mg tablet (Seroquel) 25 mg PO HS 01/02/22 01/30/22 Allergies Allergy/AdvReac Type Severity Reaction Status Date / Time gabapentin AdvReac Intermediate Confusion Verified 01/30/22 14:54 Bumble Bee Allergy Severe Anaphylactic Uncoded 01/30/22 09:46 Shock Review of Systems Review of Systems: All systems reviewed & are unremarkable except as noted in HPI and below PMFSH Past Medical History Medical History Bipolar disorder Cervical radiculopathy Chronic pain syndrome Chronic prescription opiate use Colon cancer Status post partial colectomy. COVID-19 (04/24/21) Depression Hyperlipidemia Hypertension Hypothyroidism Liver lesion Liver metastases Surgical History Surgical History History of appendectomy History of arthroscopy of right shoulder History of cervical spinal surgery History of inguinal hernia repair History of nasal surgery History of partial colectomy History of repair of left rotator cuff History of tonsillectomy Status post left foot surgery Family History Family History Other Cardiac arrest Cirrhosis of liver Social History Social History Social History: The patient lives in [place] with his and family. They have 2 children who are in her 20s and they have Severo foster son who is [id number]. History of alcohol and drug use, clean for 12 years. 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 he has 20% disability from the [employer]. he served in the [employer] during [employer]. He designates his , Amy Herman, as his surrogate decision maker. Code status: Full code. Smoking packs per day: 0.5 Smoking cigarettes per day: 10.0 Years smoked: 13 Smoking pack-years: 6.50 Smoking status: Former smoker Tobacco type: cigarettes Alcohol intake: never Substance use: current Substance use type: painkillers Last use: 05/20/21 Spiritual care concerns: No Exam Const: General: healthy appearing Nutritional Appearance: well nourished Orientation/consciousness: patient oriented x3 Limitations: no limitations HENMT: Head: normal to inspection Face/Nose/Sinus: Normal external nose present Eyes: Conjunctivae: conjunctivae normal Pupils: Equal, round and reactive pupils present EOM: EOMs intact bilaterally Neck: Neck: normal visual inspection, no lymphadenopathy and no meningeal signs Chest: Chest palpation & inspection: normal inspection of the chest Resp: Effort & Inspection: normal respiratory effort Auscultation: clear to auscultation bilaterally Cardio: Rate: regular rate Rhythm: regular rhythm GI: Auscultation: nor
[2022-01-30] MEDS: KETOROLAC (*BKC) 60 MG/2 ML VIAL IM (15:21)
[2022-01-30] MEDS: ORPHENADRINE CITRATE 30 MG/ML 2 ML VIAL 60 MG IM (15:23)
== END 2022-01-30 15:30 | disposition home or self-care (01) ==
LOC: CHSED 15:13
PROVIDERS: Emergency Provider Emergency Medicine; PCP Physician Assistant
DX: M54.30 Sciatica, unspecified side (principal)
CPT/HCPCS: 96372; 99284; J1885; J2360

== ENCOUNTER 2022-04-02 20:40 | Emergency (ER) | payer MEDICARE, MEDICAID, SELFPAY ==
[2022-04-02 20:40] VITALS: BP 156/89; PULSE 76; RESP 18; O2SAT 99
[2022-04-02 20:49] VITALS: BP 127/79; PULSE 114; RESP 18; TEMP 36.6; O2SAT 99
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
[2022-04-02] MEDS: ORPHENADRINE CITRATE 30 MG/ML 2 ML VIAL 60 MG IM (21:16)
[2022-04-02] MEDS: KETOROLAC (*BKC) 60 MG/2 ML VIAL IM (21:17)
[2022-04-02 21:39] VITALS: BP 144/84; PULSE 78; RESP 18; O2SAT 99
== END 2022-04-02 21:48 | disposition home or self-care (01) ==
PROVIDERS: Emergency Provider Emergency Medicine; PCP Physician Assistant
DX: M54.6 Pain in thoracic spine (principal); G89.4 Chronic pain syndrome; I10 Essential (primary) hypertension; E78.5 Hyperlipidemia, unspecified; E03.9 Hypothyroidism, unspecified; F31.9 Bipolar disorder, unspecified; Z87.891 Personal history of nicotine dependence
CPT/HCPCS: 96372; 99284; J1100; J1885; J2360

== ENCOUNTER 2022-05-12 16:36 | Emergency (ER) | payer MEDICARE, MEDICAID, SELFPAY ==
--- NOTE | ~2022-05-12 | XR_ITS ---
EXAMINATION: XR elbow LT min 3V DATE: 05/12/2022 18:08 INDICATION: Left elbow injury. TECHNIQUE: 4 views of left elbow were obtained. COMPARISON: None. FINDINGS: Bone alignment is normal. No fracture. Joint spaces are normal. No elbow joint effusion. IMPRESSION: 1. No fracture. Reviewed, dictated and finalized at location A. RUMENT AND CONTROL SERVICE PERSON IMPRESSION: 1. No fracture.
--- NOTE | ~2022-05-12 | CT_ITS ---
EXAMINATION: CT brain wo con DATE: 05/12/2022 18:10 INDICATION: Head injury. TECHNIQUE: Computed tomography (CT) of the head was performed without intravenous contrast. The mA wa s adjusted according to patient size. Iterative reconstruction technique was employed. The dose-lengt h product was 605.33 mGy-cm. COMPARISON: Head CT 06/18/2021 FINDINGS: There is no intracranial hemorrhage, acute infarction, or abnormal intracranial mass lesion . The ventricles are normal in size. The orbits are normal. There is mucosal thickening in the parana genie sinuses. There is fluid in left maxillary sinus. The mastoid air cells are normal. IMPRESSION: 1. Normal brain. Reviewed, dictated and finalized at location A. LOPMENT ADMINISTRATOR IMPRESSION: 1. Normal brain.
[2022-05-12 16:36] VITALS: BP 180/97; PULSE 66; RESP 18; TEMP 36.7; O2SAT 98
[2022-05-12 16:40] VITALS: BP 180/87; PULSE 66; RESP 16; TEMP 36.6; O2SAT 97
[2022-05-12 16:54] VITALS: BP 180/97; PULSE 66; RESP 18; TEMP 36.7; O2SAT 98
--- NOTE | 2022-05-12 16:56 | ED.FALL ---
HPI - Fall General Chief Complaint: Extremity Injury, Upper Stated Complaint: left elbow pain/ fall Time Seen by Provider: 05/12/22 16:56 Source: patient Mode of arrival: ambulatory History of Present Illness HPI Narrative: 56-year-old male with bipolar 1, hypothyroidism chronic, chronic opiate use, colon cancer status post colectomy, neuroendocrine tumor of liver, was diagnosed with COVID 3 days ago and is currently on Paxil of it. He presents to the ER after a fall last night after taking Ambien when he sustained -- 2 cm laceration of the left elbow. pain left elbow with decreased range of motion -- right forehead abrasion probably related to the fall. The patient denied any loss of consciousness. he denies any neck pain. no other injuries noted no cough, sputum production or shortness of breath MD complaint: fall Onset (ago): day(s) ( fell last night) Fall from: standing Fall witnessed: no Place fall occurred: home Loss of consciousness: none Prolonged down time: no Context: tripped/slipped ( tripped over his dog.) Location of injury: head and other ( Left elbow) Location of injury - extremities: Left: elbow Related Data Home Medications Medication Instructions Recorded Confirmed levothyroxine 75 mcg tablet 75 mcg PO DAILY 10/01/19 05/12/22 venlafaxine 150 mg 150 mg PO DIRECTED 11/15/21 05/12/22 capsule,extended release 24 hr quetiapine 25 mg tablet (Seroquel) 25 mg PO HS 01/02/22 05/12/22 lorazepam 1 mg capsule,extended 1 mg PO DAILY 02/27/22 05/12/22 release 24 hr (Loreev XR) prazosin 1 mg capsule 1 mg PO DAILY 02/27/22 05/12/22 trazodone 50 mg tablet 50 mg PO HS 03/27/22 05/12/22 Allergies Allergy/AdvReac Type Severity Reaction Status Date / Time gabapentin AdvReac Intermediate Confusion Verified 05/12/22 16:49 Bumble Bee Allergy Severe Anaphylactic Uncoded 04/24/22 09:32 Shock Review of Systems Review of Systems: All systems reviewed & are unremarkable except as noted in HPI and below Constitutional: Constitutional: Reports as per HPI and Reports no additional constitutional complaints Eyes: Eyes: Reports as per HPI and Reports no additional eye complaints ENT: Reports system reviewed and no additional complaints, except as documented and Reports as per HPI Cardiovascular: Cardiovascular: Reports as per HPI and Reports no additional cardiovascular complaints Respiratory: Respiratory: Reports as per HPI and Reports no additional respiratory complaints Comments: Denied any respiratory symptoms. Gastrointestinal: Gastrointestinal: Reports as per HPI and Reports no additional gastrointestinal complaints Genitourinary: Genitourinary: Reports no additional male genitourinary complaints and Reports as per HPI Musculoskeletal: Musculoskeletal: Reports no additional musculoskeletal complaints and Reports as per HPI Comments: Left elbow pain with decreased range of motion. Integumentary/Breasts: Skin/Breast: Reports system reviewed and no additional complaints, except as docu and Reports as per HPI Comments: Left elbow laceration measuring 2 cm. Full-thickness laceration. Neurologic: Reports system reviewed and no additional complaints, except as documented and Reports as per HPI Psychiatric: Psychiatric: Reports no additional psychiatric complaints and Reports as per HPI Endocrine: Endocrine: Reports no additional endocrine complaints and Reports as per HPI Hematologic/Lymphatic: Hematologic/Lymphatic: Reports no additional hematologic/lymphatic complaints and Reports as per HPI Allergic/Immunologic: Allergic/Immunologic: Reports no additional allergic/immunologic complaints and Reports as per HPI [facility] Past Medical History Medical History Bipolar disorder Cervical radiculopathy Chronic pain syndrome Chronic prescription opiate use Colon cancer Status post partial colectomy. COVID-19 (04/24/21) Depression Hyperlipide
[2022-05-12] MEDS: TETANUS,DIPHTHERIA,AC PERTUSSIS ADULT 0.5 ML (ADACEL) IM (17:24)
[2022-05-12] MEDS: KETOROLAC 30 MG/ML VIAL (*BKC) IM (17:25)
[2022-05-12 17:30] VITALS: BP 170/80; PULSE 63; RESP 16; O2SAT 97
[2022-05-12 18:20] VITALS: BP 162/78; PULSE 69; RESP 16; TEMP 36.7; O2SAT 98
== END 2022-05-12 18:25 | disposition home or self-care (01) ==
PROVIDERS: Emergency Provider Internal Medicine Critical Care Medicine; PCP Physician Assistant
DX: S51.012A Laceration without foreign body of left elbow, initial encounter (principal); E03.9 Hypothyroidism, unspecified; E78.5 Hyperlipidemia, unspecified; I10 Essential (primary) hypertension; Z87.891 Personal history of nicotine dependence; Z85.038 Personal history of other malignant neoplasm of large intestine; Z23 Encounter for immunization; W01.0XXA Fall on same level from slipping, tripping and stumbling without subsequent striking against object, initial encounter
CPT/HCPCS: 70450; 73080; 90471; 90715; 96372; 99284; J1885

== ENCOUNTER 2022-06-20 18:38 | Emergency (ER) | payer MEDICARE, MEDICAID, SELFPAY ==
[2022-06-20 18:41] VITALS: BP 144/79; PULSE 86; RESP 18; TEMP 36.8; O2SAT 99
[2022-06-20] MEDS: NAPROXEN 250 MG TABLET 500 MG PO (19:55)
[2022-06-20] MEDS: SULFAMETHOXAZOLE/TRIMETHOPRIM 800/160 MG DS TABLET 1 TAB PO (19:56)
[2022-06-20 20:13] VITALS: BP 133/88; PULSE 66; RESP 12; O2SAT 99
--- NOTE | 2022-06-20 22:53 | PC.NURSE ---
After discharge, pt called ED c/o Itchiness and Hives. MD aware and pt instructed to take some Benadryl and come back in if his sx persisted or got any worse. Pt prescription changed from Septra to Clindamycin.
--- NOTE | 2022-06-21 06:16 | ED.UPPEXIN ---
HPI - Extremity Injury (Upper) General Chief Complaint: Extremity Injury, Upper Stated Complaint: Left elbow injury Time Seen by Provider: 06/20/22 19:18 Source: patient Mode of arrival: ambulatory Limitations: no limitations History of Present Illness HPI narrative: 57-year-old gentleman reports 2 days of increasing pain and redness to left elbow. Fell and cut this area in April of this year. Had been healing well until this point. Also reports swelling and fever. Only minimal improvement with Tylenol. Related Data Home Medications Medication Instructions Recorded Confirmed levothyroxine 75 mcg tablet 75 mcg PO DAILY 10/01/19 06/19/22 venlafaxine 150 mg 150 mg PO DIRECTED 11/15/21 06/19/22 capsule,extended release 24 hr quetiapine 25 mg tablet (Seroquel) 25 mg PO HS 01/02/22 06/19/22 lorazepam 1 mg capsule,extended 1 mg PO DAILY 02/27/22 06/19/22 release 24 hr (Loreev XR) prazosin 1 mg capsule 1 mg PO DAILY 02/27/22 06/19/22 trazodone 50 mg tablet 50 mg PO HS 03/27/22 06/19/22 Allergies Allergy/AdvReac Type Severity Reaction Status Date / Time sulfamethoxazole Allergy Hives Verified 06/20/22 22:55 [From Novra] trimethoprim [From Novra] Allergy Hives Verified 06/20/22 22:55 gabapentin AdvReac Intermediate Confusion Verified 06/20/22 19:05 Bumble Bee Allergy Severe Anaphylactic Uncoded 06/20/22 19:05 Shock Review of Systems Review of Systems: All systems reviewed & are unremarkable except as noted in HPI and below Constitutional: Constitutional: Reports chills and Denies fatigue PMFSH Past Medical History Medical History Bipolar disorder Cervical radiculopathy Chronic pain syndrome Chronic prescription opiate use Colon cancer Status post partial colectomy. COVID-19 (04/24/21) Depression Hyperlipidemia Hypertension Hypothyroidism Liver lesion Liver metastases Surgical History Surgical History History of appendectomy History of arthroscopy of right shoulder History of cervical spinal surgery History of inguinal hernia repair History of nasal surgery History of partial colectomy History of repair of left rotator cuff History of tonsillectomy Status post left foot surgery Family History Family History Other Cardiac arrest Cirrhosis of liver Social History Social History Social History: The patient lives in [place] with his and family. They have 2 children who are in her 20s and they have Severo foster son who is [id number]. History of alcohol and drug use, clean for 12 years. 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 he has 20% disability from the [employer]. he served in the [employer] during [employer]. He designates his , Amy Herman, as his surrogate decision maker. Code status: Full code. Smoking packs per day: 0.5 Smoking cigarettes per day: 10.0 Years smoked: 13 Smoking pack-years: 6.50 Smoking status: Former smoker Tobacco type: cigarettes Alcohol intake: never Substance use: current Substance use type: painkillers Last use: 05/20/21 Spiritual care concerns: No Exam Const: General: healthy appearing Nutritional Appearance: well nourished Limitations: no limitations HENMT: Head: normal to inspection Ears: external ears normal Face and sinus: normal facial exam Eyes: Conjunctivae: conjunctivae normal Neck: Neck: normal visual inspection Chest: Chest palpation & inspection: normal inspection of the chest Resp: Effort & Inspection: normal respiratory effort GI: Inspection: non-distended Back/Spine/Pelvis: Back: no CVA tenderness Skin: General skin exam: normal color Neuro: General: moves all extremities and no focal motor deficits Speech: normal speech Gait exam (Neuro): Normal gait
== END 2022-06-20 20:14 | disposition home or self-care (01) ==
PROVIDERS: Emergency Provider Family Medicine; PCP Physician Assistant
DX: M71.022 Abscess of bursa, left elbow (principal); C78.7 Secondary malignant neoplasm of liver and intrahepatic bile duct; I10 Essential (primary) hypertension; E78.5 Hyperlipidemia, unspecified; E03.9 Hypothyroidism, unspecified; G89.29 Other chronic pain; M54.12 Radiculopathy, cervical region; F31.9 Bipolar disorder, unspecified; Z85.038 Personal history of other malignant neoplasm of large intestine; Z79.891 Long term (current) use of opiate analgesic; Z87.891 Personal history of nicotine dependence
CPT/HCPCS: 99283; A9270

== ENCOUNTER 2023-05-04 09:00 | Outpatient (CLI) | payer MEDICARE, MEDICAID, SELFPAY ==
--- NOTE | ~2023-05-04 | CT_ITS ---
CT of the Abdomen and Pelvis: Indication: Carcinoid tumor Technique: 2.5 mm axial scans were obtained through the abdomen and pelvis following intravenous adm inistration of 100 cc of Omnipaque 350. Dose reduction technique was used on this scan by utilizing a utomated exposure control and iterative reconstruction technique. The dose-length product (DLP) was 1 294.83 mGy-cm. COMPARISON: 11/15/2021 Findings: Scans through the lung bases are unremarkable. There is probable fatty infiltration of liver. The spleen, pancreas, gallbladder, adrenals and left k idney are within normal limits. Stable right renal stones within a right renal cyst or focally dilate d calyx. No evidence of aortic aneurysm. No lymphadenopathy. No bowel obstruction or bowel wall thickening. There is no evidence to suggest acute appendicitis. Images through the pelvis were performed. Urinary bladder unremarkable. No pelvic mass seen. No ascit es. There are bilateral L5 pars interarticularis defects, without subluxation. Impression: No evidence for active malignancy or metastatic disease. Fatty infiltration of liver. Stable right renal stones within the right renal cyst or dilated calyx. Reviewed, dictated and finalized at location . ER [facility] Impression: No evidence for active malignancy or metastatic disease. Fatty infiltration of liver. Stable right renal stones within the right renal cyst or dilated calyx.
[2023-05-04 09:22] LABS: Estimated Glomerular Filt Rate > 60
== END 2023-05-04 09:01 | disposition home or self-care (01) ==
PROVIDERS: PCP Physician Assistant; Visit Provider Internal Medicine Hematology & Oncology
DX: C7A.022 Malignant carcinoid tumor of the ascending colon (principal)
CPT/HCPCS: 74177; Q9967

== ENCOUNTER 2023-05-17 21:23 | Emergency (ER) | payer MEDICARE, MEDICAID, SELFPAY ==
[2023-05-17 21:25] VITALS: BP 175/88; PULSE 83; RESP 20; TEMP 36.8; O2SAT 96
--- NOTE | 2023-05-17 21:27 | ED.BACK ---
HPI - Back Pain/Injury General Chief Complaint: Back Pain/Injury Stated Complaint: Back Pain Time Seen by Provider: 05/17/23 21:26 Source: patient Mode of arrival: ambulatory Limitations: no limitations History of Present Illness HPI Narrative: patient is a 57-year-old male with known lumbar spine fractures and lumbar disc disease. He has gotten shots in his lumbar spine recently. He is on pain management with Percocet 5 mg. He is here with a left-sided sciatic type pain and lower back pain. He was walking his dog in the last 24 hours and that made it worse. He typically has it on the right side. patient has not taken his lorazepam today at this point and we told him not to take it as we are going to give him Valium. MD elicited complaint: back pain Pertinent past history: prior back pain, back surgery ( Planned soon) and arthritis Onset (ago): day(s) (1) Timing: constant Severity: severe Pain scale (0-10): 8 Similar Symptoms Previously: Yes ( typically the pain is on the opposite side however) Quality: sharp Location: lumbar spine and left lower back Radiation: buttocks ( left side) and left upper leg Exacerbating factors: movement and walking Relieving factors: none Context: turning/twisting ( patient was walking the dog and the dog ran to catch a squirrel and that caused the back to worsen specifically on the left side) Associated symptoms: difficulty walking Treatments prior to arrival: cold therapy, heat therapy, NSAIDS, acetaminophen and prescription analgesics Work related injury: No Related Data Home Medications Medication Instructions Recorded Confirmed levothyroxine 75 mcg tablet 75 mcg PO DAILY 10/01/19 04/24/23 venlafaxine 150 mg 150 mg PO DIRECTED 11/15/21 04/24/23 capsule,extended release 24 hr quetiapine 25 mg tablet (Seroquel) 25 mg PO HS 01/02/22 04/24/23 lorazepam 1 mg capsule,extended 1 mg PO DAILY 02/27/22 04/24/23 release 24 hr (Loreev XR) prazosin 1 mg capsule 1 mg PO DAILY 02/27/22 04/24/23 amitriptyline 10 mg PO BID 09/11/22 04/24/23 oxycodone 5 mg tablet 5 mg PO Q6H PRN Pain, Moderate 01/29/23 04/24/23 Allergies Allergy/AdvReac Type Severity Reaction Status Date / Time sulfamethoxazole Allergy Hives Verified 04/24/23 13:26 [From ] trimethoprim [From ] Allergy Hives Verified 04/24/23 13:26 gabapentin AdvReac Intermediate Confusion Verified 04/24/23 13:26 Bumble Bee Allergy Severe Anaphylactic Uncoded 04/24/23 13:26 Shock Review of Systems Review of Systems: All systems reviewed & are unremarkable except as noted in HPI and below Constitutional: Constitutional: Reports no additional constitutional complaints Eyes: Eyes: Reports no additional eye complaints ENT: Reports system reviewed and no additional complaints, except as documented Cardiovascular: Cardiovascular: Reports no additional cardiovascular complaints Respiratory: Respiratory: Reports no additional respiratory complaints Gastrointestinal: Gastrointestinal: Reports no additional gastrointestinal complaints Genitourinary: Genitourinary: Reports no additional male genitourinary complaints Musculoskeletal: Musculoskeletal: Reports no additional musculoskeletal complaints Integumentary/Breasts: Skin/Breast: Reports system reviewed and no additional complaints, except as docu Neurologic: Reports system reviewed and no additional complaints, except as documented Psychiatric: Psychiatric: Reports no additional psychiatric complaints Endocrine: Endocrine: Reports no additional endocrine complaints Hematologic/Lymphatic: Hematologic/Lymphatic: Reports no additional hematologic/lymphatic complaints Allergic/Immunologic: Allergic/Immunologic: Reports no additional allergic/immunologic complaints PMFSH Past Medical History Medical History Bipolar disorder Cervical radiculopathy Chronic pain syndrome Chronic prescription opiate use Colon ca
[2023-05-17] MEDS: diazePAM (*CRX) 5 MG TABLET PO (21:37)
[2023-05-17] MEDS: methylPREDNISolone SOD SUCC 125 MG VIAL IM (21:37)
[2023-05-17 22:06] VITALS: BP 145/75; PULSE 82; RESP 18; O2SAT 99
== END 2023-05-17 22:06 | disposition home or self-care (01) ==
PROVIDERS: Emergency Provider Emergency Medicine; PCP Physician Assistant
DX: M54.16 Radiculopathy, lumbar region (principal); I10 Essential (primary) hypertension; E03.9 Hypothyroidism, unspecified; E78.5 Hyperlipidemia, unspecified; Z87.891 Personal history of nicotine dependence
CPT/HCPCS: 96372; 99283; A9270; J2930

== ENCOUNTER 2023-06-06 22:02 | Emergency (ER) | payer MEDICARE, MEDICAID, SELFPAY ==
--- NOTE | ~2023-06-06 | XR_ITS ---
EXAMINATION: XR chest 1V portable DATE: 06/06/2023 22:27 INDICATION: Shortness of breath, fever and body aches TECHNIQUE: frontal view of the chest was obtained. COMPARISON: Chest radiograph dated 06/25/2021 FINDINGS: Elevation left hemidiaphragm with mild left basilar atelectasis. Prominent bilateral pericardial fat pads. No other airspace opacities, pulmonary edema, pleural effusion or pneumothorax. Heart size is n ormal. Lower cervical anterior spinal fusion with anterior plate and screw fixation. IMPRESSION: 1. Elevation of the left hemidiaphragm with mild left basilar atelectasis. Reviewed, dictated and finalized at location A.
[2023-06-06 22:09] VITALS: BP 187/94; PULSE 97; RESP 20; TEMP 38.4; O2SAT 97
[2023-06-06] MEDS: ONDANSETRON INJ 4 MG/2 ML VIAL IV PUSH (22:47)
[2023-06-06] MEDS: SODIUM CHLORIDE 0.9% IV 1,000 ML 999 ML IV CONT (22:47)
[2023-06-06] MEDS: KETOROLAC 30 MG/ML VIAL (*BKC) IV PUSH (22:47)
[2023-06-06 22:54] LABS: Basophils Absolute Auto 0.03 K/mm3 (0.00-0.10); Basophils Percent Auto 0.4 % (0.0-1.0); Eosinophils Absolute Auto 0.09 K/mm3 (0.02-0.50); Eosinophils Percent Auto 1.1 % (1.0-6.0); Hematocrit 39.3 % (40.0-54.0); Immature Granulocyte Absolute 0.04 K/mm3 (0.00-0.00); Immature Granulocyte Percent A 0.5 % (0.0-0.0); Lymphocytes Absolute Auto 0.61 K/mm3 (1.10-4.50); Lymphocytes Percent Auto 7.7 % (18.0-42.0); Mean Corpuscular HGB Conc 33.1 g/dL (32-36); Mean Corpuscular Hemoglobin 31.3 pg (27.0-31.0); Mean Corpuscular Volume 94.7 fL (78.0-102.0); Mean Platelet Volume 10.2 fl (8.7-11.0); Monocytes Absolute Auto 0.68 K/mm3 (0.10-0.90); Monocytes Percent Auto 8.6 % (2.0-11.0); Neutrophils Absolute Auto 6.44 K/mm3 (1.70-7.20); Neutrophils Percent Auto 81.7 % (50.0-70.0); Platelet Count Result 190 K/mm3 (150-420); Red Blood Count 4.15 M/mm3 (4.70-6.10); White Blood Count 7.9 K/mm3 (4.8-10.8)
--- NOTE | 2023-06-06 23:00 | PC.NURSE ---
Pt c/o continued 10/10 pain after administration of IV Toradol. Dr. Francois aware. Verbal orders received for a one time dose of 2mg morphine IV push, now.
[2023-06-06 23:02] LABS: SARS-CoV-2 RNA PCR Negative (Negative)
[2023-06-06] MEDS: MORPHINE SULFATE (*CRX) 2 MG/ML INJ IV PUSH (23:04)
[2023-06-06 23:12] LABS: Alanine Aminotransferase 58 U/L (16-63); Albumin Level 3.5 g/dL (3.4-5.0); Alkaline Phosphatase 97 U/L (46-116); Anion Gap 10 mmol/L (8-16); Aspartate Amino Transferase 36 U/L (15-37); Bilirubin,Total 0.5 mg/dL (0.00-1.00); Blood Urea Nitrogen 8 mg/dL (7-18); Calcium 8.6 mg/dL (8.5-10.1); Carbon Dioxide 28 mmol/L (21-32); Chloride 102 mmol/L (98-108); Estimated CRCL calculation 73 ml/min; Estimated Glomerular Filt Rate 59; Glucose 112 mg/dL (70-99); Osmolality Calculated 289 mOsm/kg (285-295); Potassium 3.6 mmol/L (3.5-5.1); Sodium 140 mmol/L (136-145)
[2023-06-06 23:17] LABS: Influenza A QL RT-PCR Negative (Negative); Influenza B QL RT-PCR Negative (Negative); RSV RNA, RT-PCR Negative (Negative)
[2023-06-06 23:20] VITALS: RESP 18; TEMP 36.8
--- NOTE | 2023-06-06 23:22 | ED.FEVER ---
HPI - Fever General Chief Complaint: Fever Stated Complaint: Fever, Body aches Source: patient Mode of arrival: ambulatory Limitations: no limitations History of Present Illness HPI Narrative: this is a 57-year-old male presents with some cough and congestion with fever, temperature of 101? cough is nonproductive does have some weakness and has chronic back pain and is currently having pain in his lumbar spine with radiation to his right lower leg typical of his sciatica. Otherwise no chest pain, does have some nausea with no vomiting no abdominal pain no dysuria. MD elicited complaint: fever and weakness Onset (ago): hour(s) Related Data Home Medications Medication Instructions Recorded Confirmed levothyroxine 75 mcg tablet 75 mcg PO DAILY 10/01/19 05/22/23 venlafaxine 150 mg 150 mg PO DIRECTED 11/15/21 05/22/23 capsule,extended release 24 hr quetiapine 25 mg tablet (Seroquel) 25 mg PO HS 01/02/22 05/22/23 lorazepam 1 mg capsule,extended 1 mg PO DAILY 02/27/22 05/22/23 release 24 hr (Loreev XR) prazosin 1 mg capsule 1 mg PO DAILY 02/27/22 05/22/23 amitriptyline 10 mg PO BID 09/11/22 05/22/23 oxycodone 5 mg tablet 5 mg PO Q6H PRN Pain, Moderate 01/29/23 05/22/23 Allergies Allergy/AdvReac Type Severity Reaction Status Date / Time sulfamethoxazole Allergy Hives Verified 06/06/23 22:50 [From Septra] trimethoprim [From Septra] Allergy Hives Verified 06/06/23 22:50 gabapentin AdvReac Intermediate Confusion Verified 06/06/23 22:50 acetaminophen [From Tylenol] AdvReac Other Verified 06/06/23 22:50 Bumble Bee Allergy Severe Anaphylactic Uncoded 06/06/23 22:50 Shock Review of Systems Review of Systems: All systems reviewed & are unremarkable except as noted in HPI and below PMFSH Past Medical History Medical History Bipolar disorder Cervical radiculopathy Chronic pain syndrome Chronic prescription opiate use Colon cancer Status post partial colectomy. COVID-19 (04/24/21) Depression Hyperlipidemia Hypertension Hypothyroidism Liver lesion Liver metastases Surgical History Surgical History History of appendectomy History of arthroscopy of right shoulder History of cervical spinal surgery History of inguinal hernia repair History of nasal surgery History of partial colectomy History of repair of left rotator cuff History of tonsillectomy Status post left foot surgery Family History Family History Other Cardiac arrest Cirrhosis of liver Social History Social History Social History: The patient lives in [place] with his and family. They have 2 children who are in her 20s and they have Severo foster son who is [id number]. History of alcohol and drug use, clean for 12 years. 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 he has 20% disability from the [employer]. he served in the [employer] during [employer]. He designates his , Amy Herman, as his surrogate decision maker. Code status: Full code. Smoking packs per day: 0.5 Smoking cigarettes per day: 10.0 Years smoked: 13 Smoking pack-years: 6.50 Smoking status: Former smoker Tobacco type: cigarettes Alcohol intake: never Substance use: current Substance use type: painkillers Last use: 05/20/21 Spiritual care concerns: No Exam Const: General: no acute distress Nutritional Appearance: well nourished Orientation/consciousness: patient oriented x3 Limitations: no limitations HENMT: Head: normal to inspection Eyes: Conjunctivae: conjunctivae normal Pupils: Equal, round and reactive pupils present Neck: Neck: normal visual inspection, no lymphadenopathy and no meningeal signs Chest: Chest palpation & inspection: normal inspection of the chest Resp: Effort & Inspection:
[2023-06-06 23:56] VITALS: BP 141/78; PULSE 71; RESP 18; TEMP 37.4; O2SAT 97
== END 2023-06-07 00:15 | disposition home or self-care (01) ==
PROVIDERS: Emergency Provider Emergency Medicine; PCP Physician Assistant
DX: J06.9 Acute upper respiratory infection, unspecified (principal); M54.31 Sciatica, right side; I10 Essential (primary) hypertension; E78.5 Hyperlipidemia, unspecified; E03.9 Hypothyroidism, unspecified; Z87.891 Personal history of nicotine dependence; Z20.822 Contact with and (suspected) exposure to COVID-19
CPT/HCPCS: 36415; 71045; 80053; 85025; 87637; 96361; 96365; 96375; 99284; J0696; J1885; J2270; J2405; J7030

== ENCOUNTER 2023-07-27 11:41 | Emergency (ER) | payer MEDICARE, MEDICAID, SELFPAY ==
[2023-07-27 11:41] VITALS: BP 133/66; PULSE 79; RESP 18; TEMP 36.8; O2SAT 97
--- NOTE | 2023-07-27 12:05 | PC.NURSE ---
WAS ABLE TO PULL UP PT LAB WORK FROM TODAY, K+ WAS 3.0. ERP IS AWARE
[2023-07-27 12:15] VITALS: BP 133/72; PULSE 72; RESP 15; RESP 19; TEMP 36.9; O2SAT 98
--- NOTE | 2023-07-27 12:18 | ED.GENADULT ---
HPI - General Adult General Chief complaint: Recheck/Abnormal Lab/Rx Stated complaint: Low potassium Time Seen by Provider: 07/27/23 11:50 Source: patient History of Present Illness HPI narrative: PATIENT IS SCHEDULED FOR BACK SURGERY ON July, PRE UP BLOOD WORKUP TODAY SHOWED POTASSIUM OF 3.0, PATIENT WAS COLD TO GO TO THE EMERGENCY ROOM IMMEDIATELY FOR CRITICAL POTASSIUM LEVEL. PATIENT IS ASYMPTOMATIC. Related Data Home Medications Medication Instructions Recorded Confirmed levothyroxine 75 mcg tablet 75 mcg PO DAILY 10/01/19 07/24/23 venlafaxine 150 mg 150 mg PO DIRECTED 11/15/21 07/24/23 capsule,extended release 24 hr quetiapine 25 mg tablet (Seroquel) 25 mg PO HS 01/02/22 07/24/23 lorazepam 1 mg capsule,extended 1 mg PO DAILY 02/27/22 07/24/23 release 24 hr (Loreev XR) prazosin 1 mg capsule 1 mg PO DAILY 02/27/22 07/24/23 amitriptyline 10 mg PO BID 09/11/22 07/24/23 oxycodone 5 mg tablet 5 mg PO Q6H PRN Pain, Moderate 01/29/23 07/24/23 Allergies Allergy/AdvReac Type Severity Reaction Status Date / Time sulfamethoxazole Allergy Hives Verified 07/24/23 12:57 [From Septra] trimethoprim [From Septra] Allergy Hives Verified 07/24/23 12:57 gabapentin AdvReac Intermediate Confusion Verified 07/24/23 12:57 acetaminophen [From Tylenol] AdvReac Other Verified 07/24/23 12:57 Bumble Bee Allergy Severe Anaphylactic Uncoded 07/24/23 12:57 Shock Review of Systems Review of Systems: All systems reviewed & are unremarkable except as noted in HPI and below PMFSH Past Medical History Medical History Bipolar disorder Cervical radiculopathy Chronic pain syndrome Chronic prescription opiate use Colon cancer Status post partial colectomy. COVID-19 (04/24/21) Depression Hyperlipidemia Hypertension Hypothyroidism Liver lesion Liver metastases Surgical History Surgical History History of appendectomy History of arthroscopy of right shoulder History of cervical spinal surgery History of inguinal hernia repair History of nasal surgery History of partial colectomy History of repair of left rotator cuff History of tonsillectomy Status post left foot surgery Family History Family History Other Cardiac arrest Cirrhosis of liver Social History Social History Social History: The patient lives in [place] with his and family. They have 2 children who are in her 20s and they have Severo foster son who is [id number]. History of alcohol and drug use, clean for 12 years. 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 he has 20% disability from the [employer]. he served in the [employer] during [employer]. He designates his , Amy Herman, as his surrogate decision maker. Code status: Full code. Smoking packs per day: 0.5 Smoking cigarettes per day: 10.0 Years smoked: 13 Smoking pack-years: 6.50 Smoking status: Former smoker Tobacco type: cigarettes Alcohol intake: never Substance use: current Substance use type: painkillers Last use: 05/20/21 Spiritual care concerns: No Exam Narrative: GENERAL APPEARANCE: WELL-DEVELOPED, WELL-NOURISHED SKIN: NORMAL COLOR HEAD: NORMOCEPHALIC, NONTRAUMATIC EYES: CLEAR CONJUNCTIVA ENT: OROPHARYNX NORMAL, EARS NORMAL, NOSE NORMAL NECK: SUPPLE, NONTENDER CHEST AND RESPIRATORY: AIRWAY PATENT, NO RESPIRATORY DISTRESS, NO ACCESSORY MUSCLE USE HEART: REGULAR RATE/RHYTHM ABDOMEN: SOFT, NONTENDER, NO ORGANOMEGALY, QUIET BOWEL SOUNDS VASCULAR: NORMAL PERIPHERAL PULSES, NORMAL CAPILLARY REFILL. MUSCULOSKELETAL: NORMAL RANGE OF MOTION, NONTENDER BACK NEUROLOGIC: ALERT AND ORIENTED ?3, SEWER DIGGER IS NORMAL TESTED, NO GROSS MOTOR DEFICIT
[2023-07-27] MEDS: POTASSIUM CHLORIDE 20 MEQ ER TABLET 40 MEQ PO (12:24)
[2023-07-27 12:50] VITALS: BP 130/67; PULSE 70; RESP 18; O2SAT 98
== END 2023-07-27 12:50 | disposition home or self-care (01) ==
PROVIDERS: Emergency Provider Emergency Medicine; PCP Physician Assistant
DX: E87.6 Hypokalemia (principal); F31.9 Bipolar disorder, unspecified; E78.5 Hyperlipidemia, unspecified; I10 Essential (primary) hypertension; E03.9 Hypothyroidism, unspecified; Z85.038 Personal history of other malignant neoplasm of large intestine; Z85.05 Personal history of malignant neoplasm of liver; Z87.891 Personal history of nicotine dependence
CPT/HCPCS: 99283; A9270

== ENCOUNTER 2023-07-30 05:33 | Emergency (ER) | payer MEDICARE, MEDICAID, SELFPAY ==
--- NOTE | ~2023-07-30 | CT_ITS ---
Non-contrast Head CT History: Unresponsive COMPARISON: 05/12/2022 Technique: Axial non-contrast imaging of the brain was performed. Dose reduction technique was used on this scan by utilizing automated exposure control and iterative reconstruction technique. The dose -length product (DLP) was 756.67 mGy-cm. Findings: There is no evidence of intracranial hemorrhage, mass lesion, or acute infarct. Brain par enchyma appears normal. The ventricles and subarachnoid spaces are normal in size. The calvarium ap pears normal. There is mild right maxillary sinus disease. The remaining visualized paranasal sinuses and mastoid air cells are clear. Impression: No intracranial abnormality seen. Mild right maxillary sinus disease. Reviewed, dictated and finalized at location . Impression: No intracranial abnormality seen. Mild right maxillary sinus disease.
--- NOTE | ~2023-07-30 | XR_ITS ---
Portable chest x-ray Comparison: 06/06/2023 Clinical History: Unresponsive Findings: There is linear left basilar scarring or atelectasis. Right lung clear. Cardiomediastinal silhouette is stable. Bones and soft tissues are unremarkable. Impression: Linear left basilar scarring or atelectasis, otherwise clear lungs. Reviewed, dictated and finalized at location . Impression: Linear left basilar scarring or atelectasis, otherwise clear lungs.
[2023-07-30 05:33] VITALS: BP 126/80; BP 128/79; PULSE 67; PULSE 70; RESP 19; TEMP 36.6; O2SAT 93; O2SAT 94
--- NOTE | 2023-07-30 05:38 | ECG_ITS ---
SEE SCANNED COPY FOR CONFIRMED REPORT MTDD
--- NOTE | 2023-07-30 05:41 | ED.AMS ---
HPI - Altered Mental Status General Chief Complaint: Altered Mental Status Stated Complaint: unresponsive Time Seen by Provider: 07/30/23 05:38 Source: EMS Mode of arrival: EMS Limitations: altered mental status History of Present Illness HPI narrative: 48 year old male arrives to the Emergency Department via EMS. Initial EMS call heard was CPR in progress. Apparently patient was unresponsive and was performing CPR until EMS arrived. BLS unit initially assessed and turned over to ACLS unit. Patient had pulse with decreased respirations per EMS. His accu check glucose was 148. He was given Narcan 2 mg IM and 2 mg IV. Patient responds to his name and sternal rubbing on arrival. He asks where he is at and is lethargic and unable to give any history. His medication bag is reviewed and includes Zyprexa, Lorazepam, Valium, Effexor. Review of recent ED visit [07/27/23] show home meds also to include Seroquel, Amitriptyline and Oxycodone. MD complaint: altered mental status and decreased responsiveness Onset (ago): minute(s) (unknown initial onset) Severity: severe Consistency of symptoms: constant Context: change in medication (multiple medication that may cause depressed mental status) Treatments prior to arrival: IV fluid, oxygen and other (Narcan) Related Data Home Medications Medication Instructions Recorded Confirmed levothyroxine 75 mcg tablet 75 mcg PO DAILY 10/01/19 07/30/23 (Synthroid) venlafaxine 150 mg 150 mg PO DIRECTED 11/15/21 07/30/23 capsule,extended release 24 hr (Effexor XR) lorazepam 1 mg capsule,extended 1 mg PO DAILY PRN Anxiety 02/27/22 07/30/23 release 24 hr (Loreev XR) prazosin 1 mg capsule 2 mg PO DAILY 02/27/22 07/30/23 B Complex-Vitamin B12 240 mcg PO PRN PRN as needed. 07/30/23 07/30/23 amlodipine 10 mg tablet (Norvasc) 10 mg PO DAILY 07/30/23 07/30/23 diazepam 2 mg tablet (Valium) 1 mg PO PRN PRN panic and insomnia 07/30/23 07/30/23 gabapentin 100 mg capsule 200 mg PO BID 07/30/23 07/30/23 (Neurontin) lamotrigine 100 mg tablet 200 mg PO DAILY 07/30/23 07/30/23 (Lamictal) meloxicam 7.5 mg tablet 7.5 mg PO DAILY 07/30/23 07/30/23 olanzapine 10 mg tablet (Zyprexa) 12.5 mg PO HS 07/30/23 07/30/23 olanzapine 15 mg tablet (Zyprexa) 15 mg PO DAILY 07/30/23 07/30/23 potassium chloride 20 mEq oral 40 meq PO BID 07/30/23 07/30/23 packet (Klor-Con) pregabalin 75 mg capsule (Lyrica) 75 mg PO BID 07/30/23 07/30/23 rosuvastatin 20 mg tablet (Crestor) 20 mg PO DAILY 07/30/23 07/30/23 Allergies Allergy/AdvReac Type Severity Reaction Status Date / Time sulfamethoxazole Allergy Hives Verified 07/27/23 12:31 [From Novra] trimethoprim [From Septra] Allergy Hives Verified 07/27/23 12:31 gabapentin AdvReac Intermediate Confusion Verified 07/27/23 12:31 acetaminophen [From Tylenol] AdvReac Other Verified 07/27/23 12:31 Bumble Bee Allergy Severe Anaphylactic Uncoded 07/27/23 12:31 Shock Review of Systems Review of Systems: ROS unobtainable: Yes unobtainable due to medical condition and unobtainable due to mental status PMFSH Past Medical History Medical History Bipolar disorder Cervical radiculopathy Chronic pain syndrome Chronic prescription opiate use Colon cancer Status post partial colectomy. COVID-19 (04/24/21) Depression Hyperlipidemia Hypertension Hypothyroidism Liver lesion Liver metastases Surgical History Surgical History History of appendectomy History of arthroscopy of right shoulder History of cervical spinal surgery History of inguinal hernia repair History of nasal surgery History of partial colectomy History of repair of left rotator cuff History of tonsillectomy Status post left foot surgery Family History Family History Other Cardiac arrest Cirrhosis of liver Social History
[2023-07-30 05:54] LABS: Basophils Absolute Auto 0.04 K/mm3 (0.00-0.10); Basophils Percent Auto 0.7 % (0.0-1.0); Eosinophils Absolute Auto 0.27 K/mm3 (0.02-0.50); Eosinophils Percent Auto 4.9 % (1.0-6.0); Hematocrit 38.2 % (40.0-54.0); Hemoglobin 12.8 g/dL (14.0-18.0); Immature Granulocyte Absolute 0.03 K/mm3 (0.00-0.00); Immature Granulocyte Percent A 0.5 % (0.0-0.0); Lymphocytes Absolute Auto 1.19 K/mm3 (1.10-4.50); Lymphocytes Percent Auto 21.4 % (18.0-42.0); Mean Corpuscular HGB Conc 33.5 g/dL (32-36); Mean Corpuscular Hemoglobin 30.7 pg (27.0-31.0); Mean Corpuscular Volume 91.6 fL (78.0-102.0); Mean Platelet Volume 10.6 fl (8.7-11.0); Monocytes Absolute Auto 0.81 K/mm3 (0.10-0.90); Monocytes Percent Auto 14.6 % (2.0-11.0); Neutrophils Absolute Auto 3.22 K/mm3 (1.70-7.20); Neutrophils Percent Auto 57.9 % (50.0-70.0); Platelet Count Result 213 K/mm3 (150-420); Red Blood Count 4.17 M/mm3 (4.70-6.10); Red Cell Distribution Width 13.2 % (11.6-14.4); White Blood Count 5.6 K/mm3 (4.8-10.8)
[2023-07-30 06:09] LABS: Alanine Aminotransferase 80 U/L (16-63); Albumin Level 3.3 g/dL (3.4-5.0); Alkaline Phosphatase 101 U/L (46-116); Anion Gap 8 mmol/L (4-12); Aspartate Amino Transferase 53 U/L (15-37); Bilirubin,Total 0.3 mg/dL (0.00-1.00); Blood Urea Nitrogen 11 mg/dL (7-18); Calcium 8.5 mg/dL (8.5-10.1); Carbon Dioxide 31 mmol/L (21-32); Chloride 102 mmol/L (98-108); Estimated Glomerular Filt Rate > 60; Glucose 129 mg/dL (70-99); Osmolality Calculated 293 mOsm/kg (285-295); Potassium 3.3 mmol/L (3.5-5.1); Sodium 141 mmol/L (136-145); Total Protein 6.8 g/dL (6.4-8.2); Troponin I 17.7 ng/L (0.00-60.4)
[2023-07-30 06:12] LABS: Lactic Acid Reflex 0.8 mmol/L (0.4-2.0)
[2023-07-30 07:00] VITALS: PULSE 85
[2023-07-30 07:15] VITALS: BP 128/79; RESP 20; TEMP 36.9; O2SAT 94
--- NOTE | 2023-07-30 07:15 | PC.NURSE ---
report from lona fuentes. resumed care. introduced self to pt and . pt informed of need for urine. pt sitting up in cot attempting to urinate in the urinal. at bedside.
[2023-07-30 07:35] LABS: Appearance Urine Clear (Clear); Bilirubin Urine Negative (Negative); Blood Urine Negative (Negative); Color Urine Light Yellow (Yellow); Glucose Urine UA Negative (Negative); Ketones Urine Negative (Negative); Leukocyte Esterase Ur Negative (Negative); Nitrate Urine Negative (Negative); Protein Urine Negative (Negative); Specific Grav Ur 1.015 (1.010-1.020); Urobilinogen Urine 0.2 mg/dL (0.2-1.0)
[2023-07-30 07:38] LABS: Add Urine Microscopic? NO
[2023-07-30 07:41] LABS: Amphetamine Screen Urine Negative (Negative); Barbiturate Screen Urine Negative (Negative); Benzodiazepines Screen Urine Positive (Negative); Cannabinoid Screen Urine Negative (Negative); Cocaine Screen Urine Negative (Negative); Methadone Screen Urine Negative (Negative); Opiate Screen Urine Negative (Negative); Phencyclidine Screen Urine Negative (Negative)
[2023-08-25 00:53] LABS: Glucose Point of Care 126 mg/dl (65-105)
== END 2023-07-30 08:40 | disposition home or self-care (01) ==
PROVIDERS: Emergency Medicine; Emergency Provider Emergency Medicine; PCP Physician Assistant
DX: R41.82 Altered mental status, unspecified (principal); I10 Essential (primary) hypertension; E78.5 Hyperlipidemia, unspecified; E03.9 Hypothyroidism, unspecified; F31.9 Bipolar disorder, unspecified; G89.4 Chronic pain syndrome; Z85.038 Personal history of other malignant neoplasm of large intestine; Z85.05 Personal history of malignant neoplasm of liver; Z90.49 Acquired absence of other specified parts of digestive tract; Z87.891 Personal history of nicotine dependence
CPT/HCPCS: 36415; 70450; 71045; 80053; 80307; 81003; 82948; 83605; 84484; 85025; 93005; 99284

== ENCOUNTER 2023-08-14 14:12 | Inpatient (IN) | payer MEDICARE, MEDICAID, SELFPAY ==
[2023-08-14 14:15] VITALS: BMI 32.2
--- NOTE | 2023-08-14 14:15 | ADMGEN ---
This patient, Baljeet Herman, was admitted to 2nd Floor Room 204-1. Patient/family oriented to hospital policies and general routines including ID bracelet, bed and alarms, visiting hours, pain management, procedures, bathroom and other care routines, personal items, smoking policy, room service/diet, and visiting hours. Information on how to activate the Rapid Response Team has been discussed. Patient/Family are encouraged to report perceived risks to care and to ask questions if they do not understand what they are told or what they should do.
--- OUTSIDE RECORDS SUMMARY | 2023-08-14 14:20 | XMS_ITS | Clinical Summary ---
Author Name Unknown Address [address], [place] Phone Organization [facility] Address [address], [place] Phone Care Team Providers Care Piano Case And Bench Assembler Name Role Phone Unavailable Unavailable Unavailable Reason for Visit and Chief Complaint The Chief Complaint is: F/U RT SI JOIN DONE ON 05-07-22 100% 1 MONTH AND HALF AND NOW IT IS ABOUT 60% RELIEF STILL NOTHING LIKE IT WAS BEFORE NOW IT IS HURTING ABOUT THE WAIST LINE BOTH SIDES . RT SIDE IS WORSE THAN THE LEFT. ~RT KNEE CHRONIC TENDONITIS PT TWISTED IT AND HURTS INNER SIDE OF KNEE ~THE PHYSICIAN STATED THAT HE WOULD NOT BE ABLE TO DO ANY THING FOR ~NECK IS HURTING RT SIDE FEELS LIKE THERE IS A KNOT IN THERE. HAVING DIFFICULTY TURNING HEAD ~PT IS WHATING TO DISCUSS THE NEXWAVE Plan of Treatment Referrals To Diagnosis Pain Management [facility] - [address] [place] [address] - Other spondylosis, lumbosacral region Note: Bilateral L3, L4, L5 m edial branch/dorsal ramus blocks (#1) with fluoroscopy.No blood thinners. Hold ASA x 3 days. not diabetic. No PIV/Abx.Schedule following recovery from left olecranon bursa I&D.F/U in 7-10 days. Education and Decision Aids were provided during visit for: Pill Count: Patient did not bring pain medication to appointment for pill count, per policy. Advised in order to continue to safely prescribe opioids, medication must be brought to each appointment Last Documented On 3 3:18PM ; [facility] Pill Count: 74 Appropriate
--- OUTSIDE RECORDS SUMMARY | 2023-08-14 14:20 | XMS_ITS ---
Author Name Unknown Address [address] [place], [place] Phone Organization [facility] Address [address], [place] Phone Care Team Providers Care Engineer Assistant Name Role Phone Unavailable Unavailable Unavailable Plan of Treatment Referrals To Diagnosis Pain Management TOM HAMILTON MD - [facility] - [address], [place] - Other spondylosis, lumbosacral region Note: Bilateral L3, L$, L5 m edial branch blocks (#1) with Fluoroscopy.Hold ASA x 3 days. No Blood Thinners. No PIV/Abx. Education and Decision Aids were provided during visit for: Pill Count: Patient did not bring pain medication to appointment for pill count, per policy. Advised in order to continue to safely prescribe opioids, medication must be brought to each appointment Last Documented On 3 3:18PM ; [facility] Pill Count: 74 Appropriate Last Documented
--- OUTSIDE RECORDS SUMMARY | 2023-08-14 14:20 | XMS_ITS ---
Care Plan - [facility] Created on: August 14, 2023 AILEEN HERMAN : 1965 Sex: Male Author Name Unknown Address [address] [place] [address] Phone Organization [facility] Address [address] [place] [address] Phone Care Team Providers Care Benefits Counselor Name Role Phone Unavailable Unavailable Unavailable
--- OUTSIDE RECORDS SUMMARY | 2023-08-14 14:20 | XMS_ITS | Clinical Summary ---
Author Name Unknown Address [address] [place] [address] Phone Organization [facility] Address [address] [place] [address] Phone Care Team Providers Care Soft Tile Setter Name Role Phone Unavailable Unavailable Unavailable Reason for Visit and Chief Complaint CANCELLED Plan of Treatment No Plan of Treatment Recorded Assessments Includes: Assessments from this encounter No Assessments Recorded Medical Equipment - Implanted Devices Includes: Current Devices No Medical Equipment Recorded Medications Includes: Medications discussed during this encounter and other current Medications Current Medications (continue as prescribed) Ambien 10 MG Oral Tablet 05/29/2022 Provider: Diagnosis: Pregabalin 50 MG Oral Capsule 05/01/2022 Provider: Diagnosis: 50mg BID Rimegepant Sulfate 75 MG Oral Tablet Disintegrating Provider: Diagnosis: 75mg daily prn for migraine FENTON traMADol HCl 50 MG Oral Tablet 05/01/2022 Provider: Diagnosis: 1 tab po q 6 hrs prn
--- OUTSIDE RECORDS SUMMARY | 2023-08-14 14:20 | XMS_ITS | Clinical Summary ---
Author Name Unknown Address [address] [place] [address] Phone Organization [facility] Address [address] [place] [address] Phone Care Team Providers Care Billing Machine Operator Name Role Phone Unavailable Unavailable Unavailable Reason for Visit and Chief Complaint POST PROCEDURE PHONE CALL Plan of Treatment No Plan of Treatment [...]
--- OUTSIDE RECORDS SUMMARY | 2023-08-14 14:21 | XMS_ITS | Clinical Summary ---
Author Name Unknown Address [address], [place] Phone Organization [facility] Address [address], [place] Phone Care Team Providers Care Fork Assembler Name Role Phone Unavailable Unavailable Unavailable Reason for Visit and Chief Complaint The Chief Complaint is: F/U RT SI JOINT INJ DONE ON 05-07-22 95% BUTTOCK IS NOT BOTHERING HIM . ~NEW PROBLEM LOWER BACK ABOVE WAIST LINE AND NECK PAIN HAS KNOT ON IT. ~NECK HURTS INBETWEEN SHOULDER BLADES CAN NOT GO BACK WITH HIS HEAD OR SIDE TO SIDE ~LT ANKLE IS BOTHERING HIM WELL. ~STARTED TWODAYS AGO. BEEN DOING ALOT OF CLEANING RE ORANZING THINGS. NOT GETTING ENOUGH REST. ~INTERESTED IN INJECTIONS ~HAS USED LIDICAINE PATCHES ICE HEAT TRAMADOL NOT HELPING ALSO SOLANPAS AND VOLTARAN Plan of Treatment Referrals To Diagnosis Pain Management TOM HAMILTON MD - [facility] - [address] [place] [address] - Pain in left ankle and joints of left foot Note: Left ankle steroid inj ection w/ ultrasound,PErformed same day.F/U in 1 month. Education and Decision Aids were provided during visit for: Pill Count: Patient did not bring pain medication to appointment for pill count, per policy. Advised in order to continue to safely prescribe opioids, medication must be brought to each appointment Last Documented On 3 9:33AM ; [facility] Pill Count: 74 Appropriate Last Documented On 3 9:33AM ; [facility]
--- OUTSIDE RECORDS SUMMARY | 2023-08-14 14:21 | XMS_ITS | Clinical Summary ---
Author Name Unknown Address [address] [place] [address] Phone Organization [facility] Address [address] [place] [address] Phone Care Team Providers Care Assembler Movement Name Role Phone Unavailable Unavailable Unavailable Reason for Visit and Chief Complaint RX ISSUE/REFILL Plan of Treatment No Plan of Treatment [...]
[2023-08-14 14:30] VITALS: BP 149/85; PULSE 85; RESP 17; TEMP 37; O2SAT 95
--- NOTE | 2023-08-14 14:30 | PC.NURSE ---
Pt has surgical site on abdomen and three surgical sites on lower back. Per Nurse at [facility], the dressings are to only be changed if over 50% saturated. Minimal drainage noted on dressings. Assessment of incision unable to be obtained without removing dressings.
[2023-08-14] MEDS: SENNA/DOCUSATE SODIUM TABLET 1 TAB PO (17:34)
[2023-08-14] MEDS: PREGABALIN (*CRX) 50 MG CAPSULE PO (17:34)
[2023-08-14] MEDS: PREGABALIN (*CRX) 25 MG CAPSULE PO (17:34)
[2023-08-14] MEDS: POTASSIUM CHLORIDE 20 MEQ PACKET (FOR LIQUID) 40 MEQ PO (17:35)
[2023-08-14] MEDS: DOXYCYCLINE HYCLATE 100 MG TABLET PO (17:35)
[2023-08-14] MEDS: polyethylene glycoL 3350 17 GM POWD.PACK PO (17:35)
[2023-08-14] MEDS: oxyCODONE HCL (*CRX) 5 MG TAB IR PO (17:38)
[2023-08-14] MEDS: CALCIUM/VITAMIN D 250 MG/3.125 MCG (125 I.U.) TABLET 1 TABLET PO (17:55)
--- NOTE | 2023-08-14 20:17 | PC.NURSE ---
Patient sitting on side of bed visiting with his and son. Patient is alert and oriented. Able to stand and turn to look out window. Call light and belongings within reach. Nurse explained to patient and how the therapy program works. Both patient and visitors stated understanding.
[2023-08-14] MEDS: PRAZOSIN HCL 1 MG CAPSULE 2 MG PO (21:11)
[2023-08-14] MEDS: OLANZapine DISPERTAB 5 MG PO (21:12)
[2023-08-14] MEDS: ORPHENADRINE CITRATE 100 MG TABLET.ER PO (21:13)
[2023-08-14] MEDS: diazePAM (*CRX) 2 MG TABLET 1 MG PO (21:31)
[2023-08-15] MEDS: oxyCODONE HCL (*CRX) 5 MG TAB IR 10 MG PO ×4 (03:39→19:02)
[2023-08-15] MEDS: DOXYCYCLINE HYCLATE 100 MG TABLET PO ×2 (05:54→17:54)
[2023-08-15] MEDS: LEVOTHYROXINE SODIUM 75 MCG TABLET PO (05:54)
--- NOTE | 2023-08-15 06:36 | PC.NURSE ---
Patient up in mauro with brace on, using walker, stand by assist, tolerated well
--- NOTE | 2023-08-15 07:29 | PM.IMHP ---
H&P: HPI History of Present Illness Date/Time: 08/15/23 07:29 Chief Complaint: Back surgery l5-S1 Fusion Narrative: This is a 58 year old male that has had back surgery who has a past medical history of Cancer with liver Mets. Patient is a bipolar with an extensive history dealing with this. Patient is here for therapy to get stronger and pain control. Patient seen therapy and infroms me it was painful but went well . I did review some of his past notes and he is being followed by Dr. Blanco for his cancer and he has informed me he get monthly injection for this and labs . Physical therapy and occupational therapy will continue to work with him until he is safe for discharge. Review of Systems Review of Systems: back surgery and pain All systems reviewed & are unremarkable except as noted in HPI and below PMFSH Past Medical History Medical History Bipolar disorder Cervical radiculopathy Chronic pain syndrome Chronic prescription opiate use Colon cancer Status post partial colectomy. COVID-19 (04/24/21) Depression Hyperlipidemia Hypertension Hypothyroidism Liver lesion Liver metastases Surgical History Surgical History History of appendectomy History of arthroscopy of right shoulder History of cervical spinal surgery History of inguinal hernia repair History of nasal surgery History of partial colectomy History of repair of left rotator cuff History of tonsillectomy Status post left foot surgery Family History Family History Other Cardiac arrest Cirrhosis of liver Social History Social History Social History: The patient lives in [place] with his and family. They have 2 children who are in her 20s and they have Severo foster son who is [id number]. History of alcohol and drug use, clean for 12 years. 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 he has 20% disability from the [facility]. he served in the [employer] during [employer]. He designates his , Amy Herman, as his surrogate decision maker. Code status: Full code. Smoking packs per day: 0.5 Smoking cigarettes per day: 10.0 Years smoked: 13 Smoking pack-years: 6.50 Smoking status: Former smoker Tobacco type: cigarettes Alcohol intake: never Substance use: never Last use: 05/20/21 Do You Feel Safe in your Home?: Yes Lack of Transportation: No Lack of Food: Never True Current Housing: I Have Housing Concerned About Future Housing: No Difficulty Paying Gas/Electric Bills: No Difficulty Paying for Meds: No Currently Unemployed: No Education: Decline to Answer Difficulty w/ Childcare or Family Care: No Spiritual care concerns: No Meds Home Medications and Allergies Home Medications Medication Instructions Recorded Confirmed Type levothyroxine 75 mcg tablet 75 mcg PO DAILY 10/01/19 08/14/23 History (Synthroid) venlafaxine 150 mg 150 mg PO DAILY 11/15/21 08/14/23 History capsule,extended release 24 hr (Effexor XR) lorazepam 1 mg capsule,extended 1 mg PO DAILY PRN Anxiety 02/27/22 08/14/23 History release 24 hr (Loreev XR) prazosin 1 mg capsule 2 mg PO HS 02/27/22 08/14/23 History B Complex-Vitamin B12 240 mcg PO PRN PRN as needed. 07/30/23 08/14/23 History lamotrigine 100 mg tablet 200 mg PO DAILY 07/30/23 08/14/23 History (Lamictal) potassium chloride 20 mEq oral 40 meq PO BID 07/30/23 08/14/23 History packet (Klor-Con) pregabalin 75 mg capsule (Lyrica) 75 mg PO BID 07/30/23 08/14/23 History rosuvastatin 20 mg tablet (Crestor) 20 mg PO DAILY 07/30/23 08/14/23 History amlodipine 10 mg tablet 10 mg PO DAILY 08/14/23 08/14/23 History cholecalciferol (vitamin D3) 125 125 mcg PO DAILY 08/14/23 08/14/23 History mcg (5,000 unit) capsule diazepam 2
[2023-08-15 08:00] VITALS: BP 149/87; PULSE 76; RESP 18; TEMP 36.7; O2SAT 93
--- NOTE | 2023-08-15 08:45 | PC.NURSE ---
Patient ambulated out of room with walker, walked down hallway to nurses station and stated he wanted to gop for a walk. SN informed him he has not been cleared by therapy to be independent in hallway amd then escorted him for his walk.
[2023-08-15] MEDS: POTASSIUM CHLORIDE 20 MEQ PACKET (FOR LIQUID) 40 MEQ PO ×2 (08:59→17:53)
[2023-08-15] MEDS: GABAPENTIN 100 MG CAPSULE 200 MG PO ×2 (09:00→20:34)
[2023-08-15] MEDS: lamoTRIgine 100 MG TABLET 200 MG PO (09:00)
[2023-08-15] MEDS: PREGABALIN (*CRX) 25 MG CAPSULE PO ×2 (09:00→20:35)
[2023-08-15] MEDS: PREGABALIN (*CRX) 50 MG CAPSULE PO ×2 (09:00→20:34)
[2023-08-15] MEDS: VENLAFAXINE HCL XR 75 MG CAP.ER.24H 150 MG PO (09:00)
[2023-08-15] MEDS: CALCIUM/VITAMIN D 250 MG/3.125 MCG (125 I.U.) TABLET 1 TABLET PO ×2 (09:01→17:53)
[2023-08-15] MEDS: amLODIPine BESYLATE 5 MG TABLET 10 MG PO (09:01)
--- NOTE | 2023-08-15 09:20 | PC.NURSE ---
Patient up in room walking with walker independently. Reinforced fall precautions with patient
--- NOTE | 2023-08-15 11:35 | PC.NURSE ---
Patient up ambulating in room without back brace on and not using walker. Reminded patient of safety goals.
[2023-08-15 16:00] VITALS: BP 148/86; PULSE 81; RESP 18; TEMP 36.6; O2SAT 94
--- NOTE | 2023-08-15 16:00 | PC.NURSE ---
Patient ambulated to desk, back brace on, using walker. Reminded to use call light.
[2023-08-15 20:00] VITALS: PULSE 81; RESP 18; O2SAT 94
[2023-08-15] MEDS: hydrOXYzine HCL 25 MG TABLET PO (20:32)
[2023-08-15] MEDS: PRAZOSIN HCL 1 MG CAPSULE 2 MG PO (20:32)
[2023-08-15] MEDS: ORPHENADRINE CITRATE 100 MG TABLET.ER PO (20:33)
[2023-08-15] MEDS: diazePAM (*CRX) 2 MG TABLET 1 MG PO (20:33)
[2023-08-15] MEDS: OLANZapine DISPERTAB 5 MG PO (20:34)
[2023-08-16] VITALS: BP 140/82; PULSE 74; RESP 17; TEMP 36.8; O2SAT 98
[2023-08-16] MEDS: oxyCODONE HCL (*CRX) 5 MG TAB IR 10 MG PO ×5 (03:15→21:27)
[2023-08-16] MEDS: DOXYCYCLINE HYCLATE 100 MG TABLET PO (06:44)
[2023-08-16] MEDS: LEVOTHYROXINE SODIUM 75 MCG TABLET PO (06:44)
[2023-08-16 08:00] VITALS: BP 111/70; PULSE 68; RESP 16; TEMP 37; O2SAT 94
[2023-08-16] MEDS: POTASSIUM CHLORIDE 20 MEQ ER TABLET 40 MEQ PO ×2 (08:57→17:28)
[2023-08-16] MEDS: lamoTRIgine 100 MG TABLET 200 MG PO (08:58)
[2023-08-16] MEDS: GABAPENTIN 100 MG CAPSULE 200 MG PO ×2 (08:58→21:27)
[2023-08-16] MEDS: PREGABALIN (*CRX) 50 MG CAPSULE PO ×2 (08:58→21:26)
[2023-08-16] MEDS: PREGABALIN (*CRX) 25 MG CAPSULE PO ×2 (08:58→21:26)
[2023-08-16] MEDS: CALCIUM/VITAMIN D 250 MG/3.125 MCG (125 I.U.) TABLET 1 TABLET PO ×2 (08:58→17:28)
[2023-08-16] MEDS: VENLAFAXINE HCL XR 75 MG CAP.ER.24H 150 MG PO (08:58)
[2023-08-16] MEDS: amLODIPine BESYLATE 5 MG TABLET 10 MG PO (08:58)
--- NOTE | 2023-08-16 10:18 | PHAR ---
VERIFIED PT.'S HOME MED [Loreev Xr] 1 mg capsule,extended release 24hr) 1 PO DAILY PRN ANXIETY
--- NOTE | 2023-08-16 15:05 | PM.EVENT ---
Event Note Event Note Event Note: Medication adjustments made, wound care instructions clarified and Resuscitation status addressed. Patient awake and alert despite numerous medications capable of contributing to depressed level of consciousness. Patient ambulatory to the nursing station several times throughout the day. Worked well with therapy. [id number]
[2023-08-16 16:00] VITALS: BP 153/77; PULSE 87; RESP 18; TEMP 36.6; O2SAT 94
[2023-08-16] MEDS: hydrOXYzine HCL 25 MG TABLET PO ×2 (17:28→22:42)
[2023-08-16 20:00] VITALS: PULSE 87; RESP 18; O2SAT 94
[2023-08-16] MEDS: ORPHENADRINE CITRATE 100 MG TABLET.ER PO (21:26)
[2023-08-16] MEDS: PRAZOSIN HCL 1 MG CAPSULE 2 MG PO (21:27)
[2023-08-16] MEDS: OLANZapine DISPERTAB 5 MG PO (21:27)
[2023-08-17] VITALS: BP 135/63; PULSE 81; RESP 17; TEMP 37; O2SAT 97
[2023-08-17] MEDS: LEVOTHYROXINE SODIUM 75 MCG TABLET PO (05:21)
[2023-08-17] MEDS: oxyCODONE HCL (*CRX) 5 MG TAB IR 10 MG PO ×4 (05:22→19:01)
[2023-08-17 05:52] LABS: Alanine Aminotransferase 45 U/L (16-63); Albumin Level 3.1 g/dL (3.4-5.0); Alkaline Phosphatase 112 U/L (46-116); Anion Gap 8 mmol/L (4-12); Aspartate Amino Transferase 37 U/L (15-37); Bilirubin,Total 0.5 mg/dL (0.00-1.00); Blood Urea Nitrogen 10 mg/dL (7-18); Carbon Dioxide 29 mmol/L (21-32); Chloride 99 mmol/L (98-108); Glucose 106 mg/dL (70-99); Magnesium 2.1 mg/dL (1.8-2.4); Osmolality Calculated 281 mOsm/kg (285-295); Phosphorus 4.3 mg/dL (2.6-4.7); Potassium 4.5 mmol/L (3.5-5.1); Sodium 136 mmol/L (136-145); Total Protein 6.5 g/dL (6.4-8.2)
[2023-08-17 06:03] LABS: Calcium 8.8 mg/dL (8.5-10.1); Estimated CRCL calculation 94 ml/min; Estimated Glomerular Filt Rate > 60
[2023-08-17 06:22] LABS: Basophils Absolute Auto 0.08 K/mm3 (0.00-0.10); Basophils Percent Auto 1.1 % (0.0-1.0); Eosinophils Absolute Auto 0.37 K/mm3 (0.02-0.50); Eosinophils Percent Auto 4.9 % (1.0-6.0); Hematocrit 37.1 % (40.0-54.0); Hemoglobin 11.7 g/dL (14.0-18.0); Immature Granulocyte Absolute 0.17 K/mm3 (0.00-0.00); Immature Granulocyte Percent A 2.3 % (0.0-0.0); Lymphocytes Absolute Auto 1.28 K/mm3 (1.10-4.50); Lymphocytes Percent Auto 17.1 % (18.0-42.0); Mean Corpuscular HGB Conc 31.5 g/dL (32-36); Mean Corpuscular Hemoglobin 31.1 pg (27.0-31.0); Mean Corpuscular Volume 98.7 fL (78.0-102.0); Mean Platelet Volume 10.2 fl (8.7-11.0); Monocytes Absolute Auto 1.05 K/mm3 (0.10-0.90); Neutrophils Absolute Auto 4.55 K/mm3 (1.70-7.20); Neutrophils Percent Auto 60.6 % (50.0-70.0); Platelet Count Result 250 K/mm3 (150-420); Red Blood Count 3.76 M/mm3 (4.70-6.10); Red Cell Distribution Width 13.3 % (11.6-14.4); White Blood Count 7.5 K/mm3 (4.8-10.8)
[2023-08-17 08:00] VITALS: BP 144/77; PULSE 79; RESP 18; TEMP 36.2; O2SAT 94
[2023-08-17] MEDS: POTASSIUM CHLORIDE 20 MEQ ER TABLET 40 MEQ PO ×2 (08:55→17:50)
[2023-08-17] MEDS: VENLAFAXINE HCL XR 75 MG CAP.ER.24H 150 MG PO (08:55)
[2023-08-17] MEDS: PREGABALIN (*CRX) 25 MG CAPSULE PO ×2 (09:28→21:38)
[2023-08-17] MEDS: CALCIUM/VITAMIN D 250 MG/3.125 MCG (125 I.U.) TABLET 1 TABLET PO ×2 (09:28→17:50)
[2023-08-17] MEDS: lamoTRIgine 100 MG TABLET 200 MG PO (09:29)
[2023-08-17] MEDS: amLODIPine BESYLATE 5 MG TABLET 10 MG PO (09:29)
[2023-08-17] MEDS: PREGABALIN (*CRX) 50 MG CAPSULE PO ×2 (09:29→21:38)
[2023-08-17] MEDS: GABAPENTIN 100 MG CAPSULE 200 MG PO ×2 (09:30→21:38)
[2023-08-17] MEDS: hydrOXYzine HCL 25 MG TABLET PO (09:30)
[2023-08-17 16:00] VITALS: BP 151/87; PULSE 89; RESP 20; TEMP 36; O2SAT 94
[2023-08-17 20:00] VITALS: PULSE 89; RESP 20; O2SAT 94
[2023-08-17] MEDS: PRAZOSIN HCL 1 MG CAPSULE 2 MG PO (21:38)
[2023-08-17] MEDS: OLANZapine DISPERTAB 5 MG PO (21:38)
[2023-08-17] MEDS: ORPHENADRINE CITRATE 100 MG TABLET.ER PO (21:40)
[2023-08-17] MEDS: diazePAM (*CRX) 2 MG TABLET 1 MG PO (21:42)
[2023-08-17 23:59] VITALS: BP 140/68; PULSE 79; RESP 17; TEMP 36.9; O2SAT 95
[2023-08-18] MEDS: oxyCODONE HCL (*CRX) 5 MG TAB IR 10 MG PO (06:05)
[2023-08-18] MEDS: LEVOTHYROXINE SODIUM 75 MCG TABLET PO (06:05)
--- NOTE | 2023-08-18 07:51 | PM.DS ---
DS: Admitting Diagnosis Discharge Date 08/18/2023 Admitting Diagnosis Spinal fusion , Weakness DS: Discharge Diagnosis Discharge Diagnosis (1) Back pain with history of spinal surgery: Code(s): M54.9 - Dorsalgia, unspecified; Z98.890 - Other specified postprocedural states Status: Acute Assessment and Plan: Patient has bandage with drainage on abd and on back Prn pain medication Continue to work with therapy Take stool softener Follow up with neurosurgeon Weakness and dibality Weekly labs . Patient up walking by himself and anxious to leave therpay he is independant (2) Liver metastases: Code(s): C78.7 - Secondary malignant neoplasm of liver and intrahepatic bile duct Status: Acute Assessment and Plan: see#1 (3) Neuroendocrine cancer: Code(s): C7A.8 - Other malignant neuroendocrine tumors Status: Acute Assessment and Plan: Injections monthly DR Blanco is his oncologist. (4) Hypertension: Code(s): I10 - Essential (primary) hypertension Status: Acute (5) Bipolar 1 disorder: Code(s): F31.9 - Bipolar disorder, unspecified Status: Acute Assessment and Plan: continue home medication (6) Liver lesion: Code(s): K76.9 - Liver disease, unspecified Status: Acute (7) Opiate dependence: Qualifiers: Substance use status: with unspecified opioid-induced disorder Qualified Code(s): F11.29 - Opioid dependence with unspecified opioid-induced disorder Code(s): F11.20 - Opioid dependence, uncomplicated Status: Acute Assessment and Plan: PRN pain medication narcan as needed DS: Summary Hospital Course Reason for hospitalization: Swing , spinal fusion , Weakness Hospital Course: This is a 58 year old male that presented for a Swing bed originally a mod assist was seen by therapy where he was up walking to the bathroom by himself in the hallways ambulating without any assistive devices. I have examined patient today who is requesting to be discharged as he lives at home with his son and . Patient has dressed him self and his only concerns is his swollen feet although he has not been elevating them at all . I have order Amado Hose for him to wear patient was able to lift his feet onto the bed and show me. There is about 1+ edema noted. NO shortness of breath minimal amount of pain and he feel like it is bearable that he is ready for discharge. At this time I have spoke with physical theapy who is in agreement that he is safe for discharge. Time Spent with Patient Time attestation: Total time spent providing and/or coordinating discharge services: Exam Const: General: comfortable, no acute distress and uncomfortable (with movement ) Eyes: General: appearance normal, both eyes and all related structures Resp: Effort & Inspection: normal respiratory effort Auscultation: clear to auscultation bilaterally Cardio: Rate: regular rate Rhythm: regular rhythm GI: Inspection: distended Other: erythema around bandage some drainage noted on the bandage. Skin: General skin exam: normal color Extrem: General: normal to inspection Psych: Affect: normal affect Discharge Plan Discharge Attending physician on discharge: Miguel Angel Black Discharging Clinician: Norah Phelan Anticipated Discharge Date/Time: 08/18/23 07:42 Patient Disposition: Home, Self-Care Activity: july shower Diet: as tolerated and heart healthy Wound Care Instructions: follow printed instructions Discharge Instructions: Drink plenty of flids Patient Instructions: Antibiotic Form, Anterior Posterior Spinal Fusion (DC), Bipolar Disorder (DC), Weakness (DC), Lumbar Spinal Fusion (DC) Stand Alone Forms: General Discharge Information Follow-up/Referrals: UNKNOWN,DOCTOR [Primary Care Provider] - (Follow up With Dr. Saldana on the 19 of September ) Discharge Medications: New gabape
[2023-08-18 08:00] VITALS: BP 133/72; PULSE 77; RESP 18; TEMP 36.6; O2SAT 92
[2023-08-18] MEDS: polyethylene glycoL 3350 17 GM POWD.PACK PO (08:37)
[2023-08-18] MEDS: SENNA/DOCUSATE SODIUM TABLET 1 TAB PO (08:38)
[2023-08-18] MEDS: PREGABALIN (*CRX) 50 MG CAPSULE PO (08:38)
[2023-08-18] MEDS: CALCIUM/VITAMIN D 250 MG/3.125 MCG (125 I.U.) TABLET 1 TABLET PO (08:38)
[2023-08-18] MEDS: POTASSIUM CHLORIDE 20 MEQ ER TABLET 40 MEQ PO (08:38)
[2023-08-18] MEDS: GABAPENTIN 100 MG CAPSULE 200 MG PO (08:38)
[2023-08-18] MEDS: VENLAFAXINE HCL XR 75 MG CAP.ER.24H 150 MG PO (08:38)
[2023-08-18] MEDS: PREGABALIN (*CRX) 25 MG CAPSULE PO (08:39)
[2023-08-18] MEDS: amLODIPine BESYLATE 5 MG TABLET 10 MG PO (08:39)
[2023-08-18] MEDS: lamoTRIgine 100 MG TABLET 200 MG PO (08:39)
--- NOTE | 2023-08-18 11:05 | PC.NURSE ---
Discharge instructions reviewed with patient. All questions answered. Pt awaiting ride.
--- NOTE | 2023-08-25 09:07 | PC.NURSE ---
discharge call back complete, doing well, just a little sore, no questions
== END 2023-08-18 11:05 | disposition home or self-care (01) | DRG 560 ==
PROVIDERS: Nurse Practitioner; Admitting Provider Internal Medicine; Visit Provider Internal Medicine
DX: Z47.89 Encounter for other orthopedic aftercare (principal); C78.7 Secondary malignant neoplasm of liver and intrahepatic bile duct; C7A.8 Other malignant neuroendocrine tumors; Z98.1 Arthrodesis status; I10 Essential (primary) hypertension; E78.5 Hyperlipidemia, unspecified; E03.9 Hypothyroidism, unspecified; M54.12 Radiculopathy, cervical region; F31.9 Bipolar disorder, unspecified; Z79.891 Long term (current) use of opiate analgesic; Z85.038 Personal history of other malignant neoplasm of large intestine; Z87.891 Personal history of nicotine dependence
CPT/HCPCS: 36415; 80053; 83735; 84100; 85025; 97110; 97161; 97166; 97530; 97535; A9270

== ENCOUNTER 2023-12-10 12:35 | Outpatient (CLI) | payer MEDICARE, MEDICAID, SELFPAY ==
--- NOTE | ~2023-12-10 | CT_ITS ---
EXAMINATION: CT abdomen pelvis w con DATE: 12/10/2023 13:40 INDICATION: Malignant carcinoid tumor of ascending colon. TECHNIQUE: Computed tomography (CT) of the abdomen and pelvis was performed with 100 mL Omnipaque 350 intravenous contrast. Automated exposure control and iterative reconstruction technique were employe d. The dose-length product was 1192.80 mGy-cm. COMPARISON: CT abdomen and pelvis 05/04/2023 FINDINGS: The visualized portions of the lung bases demonstrate mild atelectasis. No pleural effusion . The heart size is normal. No pericardial effusion. There is volume loss of right hepatic lobe. The gallbladder, spleen, pancreas, and adrenal glands are normal. There are cysts in the kidneys measurin g up to 13 mm on the right. There are multiple stones in right kidney measuring up to 5 mm. There is an umbilical hernia containing fat. There is diverticulosis of the colon without evidence of divertic ulitis. There are changes of ileocolic anastomosis. There are no pathologically enlarged lymph nodes. There is no free intraperitoneal fluid. There are changes of anterior and posterior fusion procedure s at L5-S1. There is mild thoracic and lumbar spondylosis. There is mild chronic height loss of multi ple vertebral bodies. IMPRESSION: 1. No evidence of metastatic disease. Reviewed, dictated and finalized at location A.
== END 2023-12-10 12:36 | disposition home or self-care (01) ==
PROVIDERS: PCP Physician Assistant; Visit Provider Internal Medicine Hematology & Oncology
DX: C7A.022 Malignant carcinoid tumor of the ascending colon (principal)
CPT/HCPCS: 74177; 96372; J2353; Q9967

== ENCOUNTER 2024-07-04 09:02 | Emergency (ER) | payer MEDICARE, MEDICAID, SELFPAY ==
[2024-07-04] VITALS (10 sets, daily range): BP systolic 122–149; BP diastolic 68–91; PULSE 75–99; RESP 17–27; TEMP 36.3–36.7; O2SAT 92–100
--- NOTE | ~2024-07-04 | XR_ITS ---
CHEST RADIOGRAPH, PA AND LATERAL CLINICAL HISTORY: sob with cough times 5 days . COMPARISON: 07/30/2023 TECHNIQUE: PA and lateral views of the chest. FINDINGS The cardiomediastinal silhouette is unremarkable. Significant peribronchial thickening is identified, an interval change from prior. Likely unrelated to patient's presenting symptoms is a retro-sternal density, for which cross-section al imaging is suggested. This may simply represent pericardial fat and scar, however, cross-sectional imaging is recommended f or confirmation almost no prior cross-sectional imaging was this is far cranial. IMPRESSION: Peribronchial thickening, without focal infiltrate or effusion. Likely unrelated to patient's presenting symptoms is a retrosternal density for which cross-sectional imaging (noncontrast enhanced CT examination of the chest) is suggested for further evaluation. Reviewed, dictated and finalized at location A. IMPRESSION: Peribronchial thickening, without focal infiltrate or effusion. Likely unrelated to patient's presenting symptoms is a retrosternal density for which cross-sectional imaging (noncontrast enhanced CT examination of the ches t) is suggested for further evaluation.
--- NOTE | ~2024-07-04 | CT_ITS ---
CT Scan of the Chest without Contrast: Clinical Indication: Cough Technique: Contiguous sections were acquired throughout the chest without intravenous contrast. Dose reduction technique was used on this scan by utilizing automated exposure control and iterative recon struction technique. The dose-length product (DLP) was 218.10 mGy-cm. Findings: There is no evidence of any significant mediastinal, hilar or axillary lymphadenopathy. The mediastin al soft tissues appear normal. There is no evidence of pleural or pericardial effusion. 3 mm right upper lobe pulmonary nodule noted (axial image 53, 47). Probable minimal tree-in-bud opaci ties in the central right upper lobe. 4 mm right middle lobe pulmonary nodule present (axial image 76 ). 4 mm right lower lobe nodule present (axial image 81). Images through the upper abdomen reveal no abnormalities. Impression: Subcentimeter pulmonary nodules in the right lung, as above. Suspected minimal small airways infectio n in the central right upper lobe. Reviewed, dictated and finalized at location . Impression: Subcentimeter pulmonary nodules in the right lung, as above. Suspected minimal small airways infection in the central right upper lobe.
--- NOTE | 2024-07-04 09:10 | ECG_ITS ---
Test Date: 2024-07-04 09:25:18 Measurements Intervals [place] Rate: 82 P: 68 MI: 146 QRS: 80 QRSD: 89 T: 36 QT: 389 QTc: 456 Interpretive Statements SINUS RHYTHM POSSIBLE RIGHT VENTRICULAR CONDUCTION DELAY BORDERLINE ST-T WAVE ABNORMALITY- INFERIOR LEADS BASELINE ARTIFACT- I, II, III, AVR, AVF, V4-V6 BORDERLINE ECG No previous ECG available for comparison Electronically Signed On 07-04-2024 10:33:28 CDT by David Stokes D.O.
--- NOTE | 2024-07-04 09:14 | ED.SOB ---
HPI - SOB/Dyspnea General Chief Complaint: Shortness of Breath/Dyspnea Stated Complaint: COUGH Time Seen by Provider: 07/04/24 09:10 History of Present Illness HPI Narrative: Pt presents with cough and SOB since last night. Pt denies fever or CP. Pt says cough is productive of white sputum. Pt has no Hx of COPD or CHF but vapes and smokes cannabis. Pt has not been around anyone ill. Related Data Home Medications ?Medication ?Instructions ?Recorded ?Confirmed ?Last Taken ?Type levothyroxine 75 mcg tablet 75 mcg PO DAILY 10/01/19 02/10/24 Unknown History (Synthroid) venlafaxine 150 mg 150 mg PO DAILY 11/15/21 02/10/24 08/14/23 09:10 History capsule,extended release 24 hr (Effexor XR) lorazepam 1 mg capsule,extended 1 mg PO DAILY PRN Anxiety 02/27/22 02/10/24 Unknown History release 24 hr (Loreev XR) prazosin 1 mg capsule 2 mg PO HS 02/27/22 02/10/24 Unknown History B Complex-Vitamin B12 240 mcg PO PRN PRN as needed. 07/30/23 02/10/24 Unknown History lamotrigine 100 mg tablet 200 mg PO DAILY 07/30/23 02/10/24 Unknown History (Lamictal) potassium chloride 20 mEq oral 40 meq PO BID 07/30/23 02/10/24 Unknown History packet (Klor-Con) pregabalin 75 mg capsule (Lyrica) 75 mg PO BID 07/30/23 02/10/24 Unknown History rosuvastatin 20 mg tablet (Crestor) 20 mg PO DAILY 07/30/23 02/10/24 Unknown History amlodipine 10 mg tablet 10 mg PO DAILY 08/14/23 02/10/24 08/14/23 09:00 History cholecalciferol (vitamin D3) 125 125 mcg PO DAILY 08/14/23 02/10/24 Unknown History mcg (5,000 unit) capsule diazepam 2 mg tablet 1 mg PO HS PRN Anxiety 08/14/23 02/10/24 Unknown History epinephrine 0.3 mg/0.3 mL 0.3 mg IM ONCE PRN Anaphylaxis 08/14/23 02/10/24 Unknown History injection syringe naloxone 4 mg/actuation nasal spray 4 mg intranasal Q2-3M PRN overdose 08/14/23 02/10/24 Unknown History octreotide acetate 100 mcg/mL (1 100 mcg subcut MONTHLY 08/14/23 02/10/24 Unknown History mL) injection syringe olanzapine 5 mg tablet (Zyprexa) 5 mg PO HS 08/14/23 02/10/24 Unknown History ondansetron HCl 4 mg tablet 4 mg PO Q6H PRN Nausea 08/14/23 02/10/24 Unknown History orphenadrine citrate 100 mg 100 mg PO Q12H PRN Muscle Spasm 08/14/23 02/10/24 Unknown History tablet,extended release oxycodone 5 mg tablet 10 mg PO Q4H PRN Pain 08/14/23 02/10/24 08/14/23 09:25 History polyethylene glycol 3350 17 gram 17 g PO BID 08/14/23 02/10/24 08/14/23 09:00 History oral powder packet (Miralax) rimegepant 75 mg disintegrating 75 mg PO DAILY PRN Migraine 08/14/23 02/10/24 Unknown History tablet Headache sennosides 8.6 mg-docusate sodium 1 tablet PO BID 08/14/23 02/10/24 Unknown History 50 mg tablet (Senna with Docusate Sodium) Allergies Allergy/AdvReac Type Severity Reaction Status Date / Time sulfamethoxazole (From Allergy Hives Verified 06/17/24 12:45 Septra) trimethoprim (From Septra) Allergy Hives Verified 06/17/24 12:45 acetaminophen (From Tylenol) AdvReac Other Verified 06/17/24 12:45 Bumble Bee Allergy Severe Anaphylactic Uncoded 06/17/24 12:45 Shock Review of Systems Review of Systems: All systems reviewed & are unremarkable except as noted in HPI and below PMFSH Past Medical History Medical History Bipolar disorder Cervical radiculopathy Chronic pain syndrome Chronic prescription opiate use Colon cancer Status post partial colectomy. COVID-19 (04/24/21) Depression Hyperlipidemia Hypertension Hypothyroidism Liver lesion Liver metastases Surgical History Surgical History History of appendectomy History of arthroscopy of right shoulder History of cervical spinal surgery History of inguinal hernia repair History of nasal surgery History of partial colectomy History of repair of left rotator cuff History of tonsillectomy Status post left foot surgery Family History Family History Other Cardiac arrest Cirrhosis of liver Social History Social History Social History: The patient lives in [place] with his and family. They have 2 children who are in her 20s and they have Severo foster son who is [id number]. History of alcohol and drug use, clean for 12 years. 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 he has 20% disability from the [employer]. he served in the [employer] during [employer]. He designates his , Amy Herman, as his surrogate decision maker. Code status: Full code. Smoking packs per day: 0.5 Smoking cigarettes per day: 10.0 Years smoked: 13 Smoking pack-years: 6.50 Smoking status: Former smoker Tobacco type: cigarettes Alcohol intake: never Substance use: never Last use: 05/20/21 Do You Feel Safe in your Home?: Yes Lack of Transportation: No Lack of Food: Never True Current Housing: I Have Housing Concerned About Future Housing: No Difficulty Paying Gas/Electric Bills: No Difficulty Paying for Meds: No Currently Unemployed: No Education: Decline to Answer Difficulty w/ Childcare or Family Care: No Spiritual care concerns: No Exam Const: General: healthy appearing and no acute distress Nutritional Appearance: well nourished Orientation/consciousness: patient oriented x3 Limitations: no limitations Chest: Chest palpation & inspection: normal inspection of the chest Resp: Effort & Inspection: normal respiratory effort Auscultation: wheezes Cardio: Rate: regular rate Rhythm: regular rhythm GI: GI Palp: Yes Soft to palpation and No Tenderness to palpation present (GI) Auscultation: normal bowel sounds Skin: General skin exam: normal color Rashes: no rashes Wounds: no wounds Neuro: General: patient oriented x3, moves all extremities, no meningeal signs and no focal motor deficits Speech: normal speech Extrem: General: normal to inspection and no clubbing, cyanosis or edema Psych: Mental Status: mental status grossly normal Affect: normal affect Attitude: cooperative Course Vital Signs Vital signs: Vital Signs Temperature 97.4 F L 07/04/24 09:02 Pulse Rate 82 07/04/24 09:02 Respiratory Rate 20 07/04/24 09:02 Blood Pressure 126/80 07/04/24 09:02 Pulse Oximetry 92 07/04/24 09:02 Oxygen Delivery Room Air 07/04/24 09:02 Temperature 97.4 F L 07/04/24 09:02 Pulse Rate 78 07/04/24 09:51 Respiratory Rate 20 07/04/24 09:51 Blood Pressure 138/74 07/04/24 09:45 Pulse Oximetry 100 07/04/24 09:51 Oxygen Delivery Room Air 07/04/24 09:10 MDM - SOB/Dyspnea MDM Narrative Medical decision making narrative: Pt presents with cough and SOB. DDx includes pneumonia, COPD (although not diagnosed), chf, asthma, cad among others doubt PE as pt is wheezing. will get ekg cxr and labs. cxr shows area behind heart that needed a non contrast ct. showed nodules. pt needs to follow up with PCP for further work up and tracking of these. pt has some small airway inflammation. will put on z pack, prednisone, albuterol mdi and robitussin ac Lab Data 07/04/24 09:31 07/04/24 09:31 Labs: Lab Results 07/04/24 07/04/24 Range/Units 09:11 09:31 WBC 5.8 (4.8-10.8) K/mm3 RBC 4.65 L (4.70-6.10) M/mm3 Hgb 14.0 (14.0-18.0) g/dL Hct 41.7 (40.0-54.0) % MCV 89.7 (78.0-102.0) fL MCH 30.1 (27.0-31.0) pg MCHC 33.6 (32-36) g/dL RDW 13.7 (11.6-14.4) % Plt Count 203 (150-420) K/mm3 MPV 11.3 H (8.7-11.0) fl Immature Gran % (Auto) Not Reportable Neut % (Auto) Not Reportable Lymph % (Auto) Not Reportable [place] % (Auto) Not Reportable Eos % (Auto) Not Reportable Baso % (Auto) Not Reportable Lymph # (Auto) Not Reportable [place] # (Auto) Not Reportable Eos # (Auto) Not Reportable Baso # (Auto) Not Reportable Abs Immat Gran (auto) Not Reportable Absolute Neuts (auto) Not Reportable Absolute Nucleated RBC Not Reportable Total Counted 100 Neutrophils % (Manual) 62 (46-73) % Band Neutrophils % 0 (0-6) % Lymphocytes % (Manual) 20 (18-44) % Monocytes % (Manual) 14 H (3-9) % Eosinophils % (Manual) 4 (1-6) % Nucleated RBC % Not Reportable Abs Neuts (Manual) 3.59 (1.3-6.7) K/mm3 Abs Lymphs (Manual) 1.16 (1.1-4.5) K/mm3 Abs Monocytes (Manual) 0.81 (0.1-0.90) K/mm3 Absolute Eos (Manual) 0.23 (0.02-0.50) K/mm3 Platelet Estimate Adequate (Adequate) Schistocytes Not Reportable Sodium 143 (136-145) mmol/L Potassium 3.6 (3.5-5.1) mmol/L Chloride 104 (98-108) mmol/L Carbon Dioxide 28 (21-32) mmol/L Anion Gap 11 (4-12) mmol/L BUN 7 (7-18) mg/dL Creatinine 1.25 (0.70-1.30) mg/dL Estim Creat Clear Calc 63 ml/min Estimated GFR 59 (59 - ) Glucose 108 H (70-99) mg/dL Calculated Osmolality 295 (285-295) mOsm/kg Calcium 9.0 (8.5-10.1) mg/dL Magnesium 1.7 L (1.8-2.4) mg/dL Total Bilirubin 0.4 (0.00-1.00) mg/dL AST 26 (15-37) U/L ALT 24 (16-63) U/L Alkaline Phosphatase 136 H (46-116) U/L Troponin I 10.5 (0.00-60.4) ng/L NT-Pro-B Natriuret Pep 18 (0-125) pg/mL Total Protein 7.5 (6.4-8.2) g/dL Albumin 3.6 (3.4-5.0) g/dL Influenza A (RT-PCR) Negative (Negative) Influenza B (RT-PCR) Negative (Negative) RSV (RT-PCR) Negative (Negative) SARS-CoV-2 RNA (RT-PCR) Negative (Negative) Discharge Plan Discharge Clinical Impression: Bronchitis Patient Disposition: Home Condition: Stable Instructions: Antibiotic Form, Acute Bronchitis (ED) Patient Language: Amharic Prescriptions: New azithromycin [Zithromax Z-Lizandro] 250 mg tablet See Rx Instructions .ROUTE .COMPLEX Qty: 6 0RF Rx Instructions: For 250 mg dose pack: take 500 mg today (day 1), then 250 mg for 4 days (days 2-5) prednisone 50 mg tablet 50 mg PO DAILY Qty: 5 0RF albuterol sulfate [Ventolin HFA] 90 mcg/actuation HFA aerosol inhaler 2 puff inhalation QID PRN (Reason: shortness of breath or wheezing) Qty: 8.5 0RF codeine-guaifenesin [G Tussin AC] 10-100 mg/5 mL liquid 5 ml PO Q6H PRN (Reason: cough) Qty: 120 0RF No Action levothyroxine [Synthroid] 75 mcg tablet 75 mcg PO DAILY venlafaxine [Effexor XR] 150 mg capsule,extended release 24hr 150 mg PO DAILY B Complex-Vitamin B12 240 mcg PO PRN PRN (Reason: as needed.) Patient Comments: . Rx Instructions: dish stacker 2 chew with B2 10,000% lamotrigine [Lamictal] 100 mg tablet 200 mg PO DAILY rosuvastatin [Crestor] 20 mg tablet 20 mg PO DAILY pregabalin [Lyrica] 75 mg capsule 75 mg PO BID potassium chloride [Klor-Con] 20 mEq packet 40 meq PO BID Rx Instructions: take 2 tablets by mouth twice a day for 3 days naloxone 4 mg/actuation [place],Non-Aerosol 4 mg INTRANASAL Q2-3M PRN (Reason: overdose) Rx Instructions: spray 1 dose into ONE nostril; alternate nostrils w each dose until help arrives oxycodone 5 mg Tablet 10 mg PO Q4H PRN (Reason: Pain) olanzapine [Zyprexa] 5 mg Tablet 5 mg PO HS orphenadrine citrate 100 mg Tablet Extended Release 100 mg PO Q12H PRN (Reason: Muscle Spasm) polyethylene glycol 3350 [Miralax] 17 gram Powder In Packet 17 g PO BID sennosides-docusate sodium [Senna with Docusate Sodium] 8.6-50 mg Tablet 1 tablet PO BID cholecalciferol (vitamin D3) 125 mcg (5,000 unit) Capsule 125 mcg PO DAILY amlodipine 10 mg Tablet 10 mg PO DAILY Patient Comments: ............. epinephrine 0.3 mg/0.3 mL Syringe 0.3 mg IM ONCE PRN (Reason: Anaphylaxis) Rx Instructions: as a single dose; may repeat once octreotide acetate 100 mcg/mL (1 mL) Syringe 100 mcg SUBCUT MONTHLY Rx Instructions: every 30 days ondansetron HCl 4 mg Tablet 4 mg PO Q6H PRN (Reason: Nausea) rimegepant 75 mg Tablet,Disintegrating 75 mg PO DAILY PRN (Reason: Migraine Headache) diazepam 2 mg Tablet 1 mg PO HS PRN (Reason: Anxiety) gabapentin 100 mg Capsule 200 mg PO Q12HR Qty: 120 0RF Loreev XR 1 mg capsule,extended release 24hr 1 mg PO DAILY PRN (Reason: Anxiety) prazosin 1 mg capsule 2 mg PO HS Follow-up/Referrals: Betsy,EFRAIN Smith [Primary Care Provider] -
[2024-07-04] MEDS: IPRATROPIUM 0.5 MG/ALBUTEROL SULFATE 2.5 MG AMPUL.NEB 3 ML INHALATION ×3 (09:24→09:47)
[2024-07-04 09:36] LABS: Hematocrit 41.7 % (40.0-54.0); Mean Corpuscular HGB Conc 33.6 g/dL (32-36); Mean Corpuscular Hemoglobin 30.1 pg (27.0-31.0); Mean Corpuscular Volume 89.7 fL (78.0-102.0); Mean Platelet Volume 11.3 fl (8.7-11.0); Platelet Count Result 203 K/mm3 (150-420); Red Blood Count 4.65 M/mm3 (4.70-6.10); Red Cell Distribution Width 13.7 % (11.6-14.4); White Blood Count 5.8 K/mm3 (4.8-10.8)
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
--- OUTSIDE RECORDS SUMMARY | 2024-07-04 09:44 | XMS_ITS | Clinical Summary ---
Author Organization [facility] Facility Address [address] [address] Care Team Providers Care Social Service Agency Director Name Role Phone Kevin Meyer Primary Care Provider [phone] Allergies Active Allergy Reactions Criticality Noted Date Comments Gabapentin Other (see comments) 05/09/2015 Medications * This document contains information received from the source organization and may not represent a complete record from that organization. aspirin 81 MG tablet Take 1 tablet by mouth 1 (one) time each day Active benztropine (COGENTIN) 0.5 MG tablet Take 1 tablet by mouth 2 (two) times a day 05/04/2015 Active cyclobenzaprine (FLEXERIL) 10 MG tablet Take 1 tablet by mouth 1 (one) time each day 03/12/2015 Active divalproex (DEPAKOTE) 500 MG 24 hr tablet Take 2 tablets by mouth 1 (one) time each day Active escitalopram (LEXAPRO) 20 MG tablet Take 1 tablet by mouth 1 (one) time each day Active fenofibrate micronized (LOFIBRA) 134 MG capsule Take 1 capsule by mouth 1 (one) time each day Active HYDROcodone-kan taminophen (VICODIN) 10-300 MG per tablet Take 1 tablet by mouth every 4 (four) hours if needed Active levothyroxine (SYNTHROID, LEVOTHROID) 75 MCG tablet Take 1 tablet by mouth 1 (one) time each day 04/24/2015 Active OLANZapine (ZyPREXA) 20 MG tablet Take 1 tablet by mouth 1 (one) time each day 04/08/2015 Active Cetirizine HCl (ZyrTEC ALLERGY) 10 MG capsule Take 1 capsule by mouth 1 (one) time each day Active Active Problems Problem Noted Date Diagnosed Date Anemia 12/23/2018 Hyperlipidemia 12/23/2018 Renal stone 12/23/2018 Resolved Problems Problem Noted Date Diagnosed Date Resolved Date Chronic kidney disease stage 3 12/23/2018 12/29/2018 Immunizations Immunization Administration Dates Next Due Influenza TIV (IM) 03/08/2015 Pneumococcal Polysaccharide 03/08/2015 Family History Relation Status Comments Father Mother Social History Tobacco Use Types Packs/Day Years Used Date Smoking Tobacco: Former Cigarettes Q uit: 2008 Smokeless Tobacco: Never Comments:Smoking History Inf o:Every day Alcohol Use Standard Drinks/Week Comments Never 0 (1 standard drink = 0.6 oz pure alcohol) Alcoholic Drinks/day: Occasional social drink AUDIT-C Answer Date Recorded Frequency of Alcohol Consumption Never 01/03/2020 Average Number of Drinks Not on file 020 Frequency of Binge Drinking Not on file 12/21 Sex and Gender Information Value Date Recorded Sex Assigned at Not on file Legal Sex Male 6:10 PM EDT Gender Identity Not on file Sexual Orientation Not on file Last Filed Vital Signs Vital Sign Reading Time Taken Comments Blood Pressure 110/60 01/03/2020 11:56 AM CDT Pulse 81 01/03/2020 11:56 AM CDT Temperature 36.4 C (97.6 F) 01/03/2020 11:56 AM CDT Respiratory Rate 16 12/30/2017 11:00 AM CDT Oxygen Saturation 94% 01/03/2020 11:56 AM CDT Inhaled Oxygen Concentration - - Weight 96.2 kg (212 lb) 01/03/2020 11:56 AM CDT Height 182.9 cm (6') 01/03/2020 11:56 AM CDT Body Mass Index 28.75 01/03/2020 11:56 AM CDT Plan of Treatment Health Maintenance Due Date Last Done Comments Hepatitis B Vaccine (1 of 3 - 19+ 3-dose series) 1985 Colorectal Cancer Screening: Annual FOBT 06/17/2015 Colorectal Cancer Screening: Colonoscopy 06/17/2015 Colorectal Cancer Screening: Sigmoidoscopy 06/17/2015 Pneumococcal Vaccine: 50+ Ye ars (2 of 2 - PCV) 03/08/2016 03/08/2015 Influenza Vaccine (Season Ended) 2024 01/06/2019, 01/03/2019, 01/28/2018, Additional history exists Pneumococcal Vaccine: Peds ( 0 to 5 Years) and At-Risk Patients (6 to 49 Years) Discontinued 03/08/2015 Insurance Medicare Medicaid [place] Care Teams Social Service Agency Director Relationship Specialty Start Date End Date Kevin Meyer PA [address] [place] [address] PCP - General Internal Medicine 10/20/18
--- OUTSIDE RECORDS SUMMARY | 2024-07-04 09:44 | XMS_ITS ---
Author Organization Unknown Address [address] [place], [place] [id number] Phone Care Team Providers Care Machinery Erector Name Role Phone LIBRA AMINA Attending Unavailable SUYAPA YIN Primary Unavailable Immunization Immunization Date Status Additional Notes Code Code System pneumococcal polysaccharide PPV23 03/08/2015 Completed 33 CVX influenza, unspecified formulation 01/03/2020 Completed 88 CVX Tdap 05/12/2022 Completed 115 CVX Influenza, split virus, trivalent, preservative 03/08/2015 Completed 141 CVX Influenza, split virus, quadrivalent, PF 01/05/2014 Completed 150 CVX Influenza, split virus, quadrivalent, PF 01/28/2018 Completed 150 CVX Influenza, split virus, quadrivalent, PF 05/28/2021 Completed 150 CVX Influenza, split virus, quadrivalent, preservative 02/05/2015 Completed 158 C VX Influenza, split virus, quadrivalent, preservative 01/07/2017 Completed 158 C VX Influenza, split virus, quadrivalent, preservative 01/06/2019 Completed 158 C VX Influenza, split virus, quadrivalent, preservative 01/09/2020 Completed 158 C VX Influenza, MDCK, quadrivalen t, PF 01/09/2022 Completed 171 CVX zoster recombinant 08/28/2020 Completed 187 CVX zoster recombinant 10/30/2020 Completed 187 CVX Results CBC W/ DIFF - Collect Date/T nadia: 08/05/2023 10:34 [facility] ID: [id number] [place], [place], [id number] LOINC: 24726-7 Test Value Unit Reference Range Code Code System Flag WBC 7.5 10^3uL L=4.8 H=10.8 RBC 4.53 10^6uL L=4.60 H=6.20 L HEMOGLOBIN 14.1 g/dL L=14.0 H=18.0 718-7 LOINC HEMATOCRIT 41.5 VOL% L=42.0 H=52.0 4544-3 LOINC L MCV 91.6 fL L=80.0 H=94.0 MCH 31.1 pg L=27.0 H=32.0 MCHC 34.0 g/dL L=32.0 H=36.0 PLATELETS 242 10^3uL L=100 H=400 48989-5 LOINC RDW 13.1 % L=11.7 H=15.5 %GRAN 64.6 % L=40.0 H=70.0 46355-5 LOINC %LYMPH 18.1 % L=20.0 H=45.0 736-9 LOINC L %MONO 11.6 % L=2.0 H=10.0 46105-3 LOINC H %EOS 3.6 % L=0.0 H=6.0 713-8 LOINC %BASO 0.8 % L=0.0 H=3.0 706-2 LOINC #NEUT 4.9 10^3uL L=1.9 H=7.6 16892-5 LOINC #LYMPH 1.4 10^3uL L=0.9 H=4.9 47217-6 LOINC #MONO 0.9 10^3uL L=0.1 H=0.9 12359-9 LOINC #EOS 0.3 10^3uL L=0.0 H=0.6 712-0 LOINC #BASO 0.06 10^3uL L=0.00 H=0.10 83072-4 LOINC #IM GRANS 0.1 10^3uL L=0.0 H=7.0 06187-8 LOINC %IM GRANS 1.3 % L=0.0 H=5.0 73926-7 LOINC %NRB 0.0 L=0.0 H=0.2 36377-8 LOINC #NRB 0.000 L=0.000 H=0.012 42089-8 LOINC MANUAL DIFF NOT INDICATED RBC MORPH NOT INDICATED HGB A1C -GLYCOHEMOGLOBIN - C ollect Date/Time: 08/05/2023 10:34 [facility] ID: [id number] [place], [place], [id number] LOINC: 4548-4 Test Value Unit Reference Range Code Code System Flag HGBA1C 5.9 % 4548-4 LOINC LIVER PROFILE - Collect Date /Time: 08/05/2023 10:34 [facility] ID: [id number] [place], [place], [id number] LOINC: 09794-0 Test Value Unit Reference Range Code Code System Flag ALT 84 U/L L=9 H=72 1742-6 LOINC H AST 71 U/L L=15 H=46 1920-8 LOINC H ALKALINE PHOS 101 U/L L=38 H=126 6768-6 LOINC TOTAL PROTEIN 7.9 g/L L=6.3 H=8.2 2885-2 LOINC TOTAL BILI 0.5 mg/dL L=0.2 H=1.3 1975-2 LOINC DIRECT BILI 0.0 mg/dL L=0.0 H=0.3 1967-7 LOINC INDIRECT BILI 0.30 mg/dL L=0.00 H=1.10 1971-1 LOINC ALBUMIN 4.4 G/dL L=3.5 H=5.0 1751-7 LOINC LIPID PANEL - Collect Date/T nadia: 08/05/2023 10:34 [facility] ID: [id number] [place], [place], [id number] LOINC: 30921-7 Test Value Unit Reference Range Code Code System Flag FASTING NO CHOLESTEROL 256 mg/dL L=0 H=200 2093-3 LOINC H TRIGLYCERIDE 175 mg/dL L=0 H=150 2571-8 LOINC H HDL 52 mg/dL L=40 H=60 2085-9 LOINC LDL 156 mg/dL 2088-1 LOINC SEROTONIN - Collect Date/Lux e: 08/05/2023 10:34 [facility] ID: [id number] [place], [place], [id number] LOINC: 46060-0 Test Value Unit Reference Range Code Code System Flag Serotonin, Serum 18 31-207 37739-3 LOINC L BASIC METABOLIC PANEL - Jairo ect Date/Time: 08/05/2023 10:34 [facility] ID: [id number] [place], [place], [id number] LOINC: 00911-1 Test Value Unit Reference Range Code Code System Flag FASTING NO BUN 11 mg/dL L=7 H=20 3094-0 LOINC CREATININE 1.20 mg/dL L=0.66 H=1.25 2160-0 LOINC GLUCOSE 113 mg/dL L=74 H=106 2345-7 LOINC H CALCIUM 9.3 mg/dL L=8.3 H=10.5 52929-4 LOINC SODIUM 132 mmol/L L=132 H=144 2951-2 LOINC POTASSIUM 3.9 mmol/L L=3.5 H=5.1 2823-3 LOINC CHLORIDE 94 mmol/L L=98 H=107 2075-0 LOINC L CO2 31.0 mmol/L L=22.0 H=30.0 8-9 LOINC H ANION GAP 11 L=10 H=20 11682-8 LOINC BUN/CREAT 9.2 3097-3 LOINC AGE 58 05990-0 LOINC eGFR NON-AFR 66 ml/min eGFR AFR AMER 80 ml/min Social History Type Status Start Date End Date Code Code Syst em Smoking History Never smoker (Never Smoked) 156299684 SNOMED CT Sex Male Hospital Discharge Instructions Should you have any questions prior to discharge, please contact a member of your healthcare team. If you have left the hospital and have any questions, please contact your primary care physician. Reason For Referral No Data Found Plan of Treatment No Data Found Encounters Encounter Diagnosis Start Date Code Code Sys tem Bipolar II disorder 08/05/2023 SNOMED-C T Personal Care Team Section Performer Name Performer Role Active Date Inactive ANNAMARIA Gutierrez PCP - Primary care physician 2021-08-14
--- OUTSIDE RECORDS SUMMARY | 2024-07-04 09:44 | XMS_ITS | Clinical Summary ---
Author Organization [facility] Address [address], [place] Phone Care Team Providers Care Bingo Manager Name Role Phone Unavailable Unavailable Unavailable Reason [...] AND HURTS INNER SIDE OF KNEE ~THE PRESCRIPTIONIST STATED THAT HE WOULD NOT BE ABLE TO DO ANY THING FOR ~NECK IS HURTING RT SIDE FEELS LIKE THERE IS A KNOT IN THERE. HAVING DIFFICULTY TURNING HEAD ~PT IS WHATING TO DISCUSS THE NEXWAVE Plan of Treatment Referrals To Diagnosis Pain Management [facility] - [address] [place] [address] - Other spondylosis, lumbosacral region Note: Bilateral L3, L4, L5 m edial branch/dorsal ramus blocks (#1) with fluoroscopy.No blood thinners. Hold ASA x 3 days. not diabetic. No PIV/Abx.Schedule following recovery from left olecranon bursa I&D.F/U in 7-10 days. Last Documented On 3 2:11PM ; [facility] Education and Decision Aids were provided during visit for: Pill Count: Patient did not bring pain medication to appointment for pill count, per policy. Advised in order to continue to safely prescribe opioids, medication must be brought to each appointment Last Documented On 3 3:18PM ; [facility] Pill Count: 74 Appropriate Last Documented On 3:18PM ; [facility] Assessments Includes: Assessments from this encounter Findings - [K59.03 - Drug induced constipation] Drug-induced constipation - Last Documented On 07/03/2022 9:46AM ; [facility] - [M19.072 - Primary osteoarthritis, left ankle and foot] Osteoarthritis of left ankle - Last Documented On 07/03/2022 9:46AM ; [facility] - [M46.1 - Sacroiliitis, not elsewhere classified] Right sacroiliitis - Last Documented On 07/03/2022 9:46AM ; [facility] - [M25.519 - Pain in unspecified shoulder] Arthralgia of bilateral shoulder region - Last Documented On 07/03/2022 9:46AM ; [facility] - [M25.561 - Pain in right knee] Arthralgia of the right knee/patella/tibia/fibula - Last Documented On 07/03/2022 9:46AM ; [facility] - [M25.562 - Pain in left knee] Arthralgia of the left knee/patella/tibia/fibula - Last Documented On 07/03/2022 9:46AM ; [facility] - [M25.559 - Pain in unspecified hip] Hip pain - Last Documented On 07/03/2022 9:46AM ; [facility] - [M25.572 - Pain in left ankle and joints of left foot] Arthralgia of left ankle - Last Documented On 07/03/2022 9:46AM ; [facility] - [M25.572 - Pain in left ankle and joints of left foot] Arthralgia of the left ankle/foot - Last Documented On 07/03/2022 9:46AM ; [facility] - [M54.9 - Dorsalgia, unspecified] DORSALGIA - Last Documented On 07/03/2022 9:46AM ; [facility] - [M96.1 - Postlaminectomy syndrome, not elsewhere classified] Cervical postlaminectomy syndrome - Last Documented On 07/03/2022 9:46AM ; [facility] - [M47.892 - Other spondylosis, cervical region] Cervical spondylosis - Last Documented On 07/03/2022 9:46AM ; [facility] - [M47.897 - Other spondylosis, lumbosacral region] Lumbosacral spondylosis - Last Documented On 07/03/2022 9:46AM ; [facility] - [M54.2 - Cervicalgia] Cervicalgia - Last Documented On 07/03/2022 9:46AM ; [facility] - [M54.13 - Radiculopathy, cervicothoracic region] Cervicothoracic radiculopathy - Last Documented On 07/03/2022 9:46AM ; [facility] - [M54.17 - Radiculopathy, lumbosacral region] Lumbosacral radiculopathy - Last Documented On 07/03/2022 9:46AM ; [facility] - [M62.830 - Muscle spasm of back] Muscle spasm of back - Last Documented On 07/03/2022 9:46AM ; [facility] - [F11.20 - Opioid dependence, uncomplicated] Opioid dependence with continuous use - Last Documented On 07/03/2022 9:46AM ; [facility] - [F31.9 - Bipolar disorder, unspecified] Bipolar disorder NOS - Last Documented On 07/03/2022 9:46AM ; [facility] - [F43.12 - Post-traumatic stress disorder, chronic] Chronic post-traumatic stress disorder following combat - Last Documented On 07/03/2022 9:46AM ; [facility] - [G89.4 - Chronic pain syndrome] Chronic pain syndrome - Last Documented On 07/03/2022 9:46AM ; [facility] - [Z79.891 - correction (current) use of opiate analgesic] correction use of opiate analgesic - Last Documented On 07/03/2022 9:46AM ; [facility] Instructions Includes: Instructions from this encounter Education and Decision Aids were provided during visit for: Pill Count: Patient did not bring pain medication to appointment for pill count, per policy. Advised in order to continue to safely prescribe opioids, medication must be brought to each appointment Last Documented On 3 3:18PM ; [facility] Pill Count: 74 Appropriate Last Documented On 3 3:18PM ; [facility] Medical Equipment - Implanted Devices Includes: Current Devices No Medical Equipment Recorded Medications Includes: Medications discussed during this encounter and other current Medications Current Medications (continue as prescribed) Ambien 10 MG Oral Tablet 05/29/2022 Provider: Diagnosis: Last Documented On 05/29/2022 9:44AM By Ar COX ; [facility] Pregabalin 50 MG Oral Capsule 05/01/2022 Provider: Diagnosis: 50mg BID Last Documented On 05/01/2022 1:59PM By Frieda Britt RN ; [facility] Rimegepant Sulfate 75 MG Oral Tablet Disintegrating Provider: Diagnosis: 75mg daily prn for migraine [place] Last Documented On 05/01/2022 2:00PM By Freida Britt RN ; [facility] traMADol HCl 50 MG Oral Tablet 05/01/2022 Provider: Diagnosis: 1 tab po q 6 hrs prn Last Documented On 05/01/2022 2:01PM By Freida Britt RN ; [facility] Effexor XR 150 MG Oral Capsule Extended Release 24 Alexandra r 05/01/2022 Provider: Diagnosis: 1 daily Last Documented On 05/01/2022 2:02PM By Freida Britt RN ; [facility] rOPINIRole HCl 1 MG Oral Tablet 05/01/2022 Provider: Diagnosis: TID prn Last Documented On 05/01/2022 2:02PM By Freida Britt RN ; [facility] Prazosin HCl 1 MG Oral Capsule 05/01/2022 Provider: Diagnosis: Last Documented On 05/01/2022 1:59PM By Freida Britt RN ; [facility] QUEtiapine Fumarate 100 MG Oral Tablet 05/01/2022 Pr ovider: Diagnosis: Last Documented On 05/01/2022 1:58PM By Freida Britt RN ; [facility] Cyclobenzaprine HCl 10 MG Oral Tablet 05/01/2022 Pro vider: Diagnosis: 1 tab po TID prn for muscle spasms Last Documented On 05/01/2022 1:58PM By Freida Britt RN ; [facility] Loreev XR 1 MG Oral Capsule ER 24 Hour Sprinkle 2022 Provider: Diagnosis: Last Documented On 05/01/2022 1:35PM By Ar COX ; [facility] Venlafaxine HCl ER 150 MG Or al Capsule Extended Release 24 Hour 02/28/2021 Provider: Diagnosis: Last Documented On 02/28/2021 9:15AM By Ar COX ; [facility] Levothyroxine Sodium 75 MCG Oral Capsule 02/28/2021 Provider: Diagnosis: Last Documented On 02/28/2021 9:14AM By Ar COX ; [facility] Past Medications on file Cyclobenzaprine HCl 10 MG Oral Tablet 06/20/2022 - 06/25/2022 Provider: NALDO BETH MD Diagnosis: Dorsalgia, unspecified 1 tab po TID prn for muscle spasms Last Documented On 06/20/2022 12:32PM By Naldo Beth MD ; [facility] Medications Administered Includes: Administered Medications from this encounter No Administered Medications Recorded Vital Signs Includes: Vital Signs from this encounter Vital Name 07/02/2022 03:32P Blood Pressure Sitting R 141/88 BP Cuff Size Regular Pulse Rate-Sitting (bpm) 73 Temp-Oral (F) 98.2 Weight (lb) 207 Pain Level 7 Oxygen Saturation (%) 96 Last Documented: On 07/02/2022 3:33PM ; [facility] Results Includes: Results discussed during this encounter No Results Recorded For Specified Dates History of Present Illness Includes: History of Present Illness from this encounter HPI PHQ-9 Score: 3 Date:05-29-22BPI Score: Date:MiDAS Score: Date:SOAPP-R Score: 9 LOW Date: [id number] Location: bilateral neck,back knee ltfootQuality: deep aching, sharp with activityRadiation: neck to upper shoulder, occiput, buttock, calfSeverity: moderate to severeTiming: continuous, worse with activity, movement and weight-bearingAssociated Sx: stiffness, reduced ROM, headaches, constipation, sedation from opioidsAggravating Factors:standing, cannot walk for a long distance , turning head,Alleviating Factors. pain medication makes it tolerable since 1992 (Dr. Larry Henderson)Past Tx: surgeries x3 left ankle, oral opioids, no benefit from cyclobenzaprine, lyrica, trazadone, naproxen/ibuprofen; some benefit from baclofen, minimal benefit from topical diclofenac, left ankle steroid injections, tramadol, naproxen AILEEN HURD is a 57 year old male. - Allergy list reviewed - Problem list reviewed - Medication reconciliation performed - Medication list reviewed - Prescription Drug Monitoring Program website checked. 04-06-2021 - How much of the medication are you taking a day? 3 a day - Last dose of medication? 8 A.M - Pain comes/goes - Primary pain location Ankle left - Primary pain duration Not long medication helps tremendously - Secondary pain duration same as above - Secondary pain location Neck/ back - Pain is throbbing - Pain is dull, aching - Relieved by medication - Relieved by repositioning - Pain aggravated going down stairs - Pain aggravated going up stairs - Pain aggravated by walking - Pain aggrated by coughing/sneezing - Pain aggravated bending - Neck pain radiating to both sides - Pain radiates in left foot - Last drug screen appropriate 02-28-21 Discussion: Patient returns in follow-up stating that he continues to benefit from previous right SI joint steroid injection. Although he is 95% better his last visit he now states he is more like 40 to 50% improved. We will continue to monitor and can consider repeating SI joint steroid injections in the future if necessary as pain returns. He does understand that steroid injections are likely temporary especially in the face of chronic joint arthropathy. His complaints today however are more consistent with lumbar facet syndrome as he describes bilateral lumbosacral back pain is axial in nature worse, worse with extension or twisting. He is tender over the facets with positive facet loading maneuver bilaterally. He is known facet arthropathy on imaging examination and the possibility of medial branch blocks with progression to thermal RF ablation has been discussed with this patient in detail in the past. He would now like to proceed. He is notably limited in his ability to function and finds it difficult to keep up with his family with basic activities. He is significantly anxious with a diagnosis of PTSD which does plan to the severity of his pain, his tolerance and his perceived level of dysfunction. I do not think he is a strong candidate for opioid analgesics although he is taking tramadol chronically now for a relatively recently diagnosed liver tumor prescribed by his sole layer/oncologist. He has shown no evidence of diversion, misuse or abuse based on the [facility] website. Patient also describes significant knee pain and is requesting injections for the right knee. He also describes bilateral neck pain right greater than left and is requesting treatment for this. We discussed appropriate options including lumbar oral and/or cervical medial branch blocks with progression to thermal RF ablation. We discussed knee steroid injection, Visco supplementation injections and possible genicular nerve block with progression to thermal RF ablation. However, the patient is currently suffering from infected left likely not bursa is on chronic antibiotic therapy. He has a planned debridement of the left olecranon bursa in the near future. There is some question whether not this would require secondary closure with packing and dressing changes of the next 6 weeks which does expose them to the possibility of bacteremia making neuraxial injections a little less appropriate in the short term. However, if primary closure is performed he would be able to pursue interventional therapies much sooner. Patient will call us once he knows for certain we can then move forward. He elected began with the low back as this is the most limiting to him. We can certainly consider treatment for the neck in the future should his pain persist as well as right knee. He understands that we cannot do multiple treatments on the same day. Risk and benefits and alternatives the above treatment options were discussed in detail the patient who expressed explicit understanding and consent to proceed. Questions were elicited, asked and answered the best of our ability and to his satisfaction today. [place] prescription monitoring database was reviewed and found to be appropriate as above.Patient will follow-up in 3 months or sooner should we obtain appropriate authorization to move forward with treatment for his lumbar facet syndrome. PRIOR VISIT (05/29/22): Patient returns in follow-up after undergoing right SI joint steroid injection. Several days after the procedure will be performed our immediate postprocedure phone call, the patient indicated he is not benefiting at all from the injection. However, now states he is 95% better the right SI and complains of no pain in the right buttock. He does however complain of significant pain in the neck and low back with palpable knots. He indicates that this is related to increased activity at home (patient has apparently been participating in projects at home that involved extensive lifting carrying and moving moderate to heavy objects). He indicates that this is been going for the past 2 days. He also indicates that his anxiety levels and restless leg symptoms have been increased. He has been unable to sleep well in the evenings as a result. Combination of these few things have resulted in significant increase in his neck and low back symptoms. I've encouraged him to continue home exercises, moderate his activity to avoid excessive lifting or repetitive activities during each day but rather spread this out over the course of several days. I've encouraged him to attempt relaxation techniques at night in an effort to reduce anxiety and allow for better sleep. We discussed appropriate sleep hygiene principles as well as appropriate positioning to limit stress on the neck and low back when sleep. We discussed at length topical analgesics, massage and consideration of additional physical therapy in the future should pain persist. However, given the fact that his symptoms and only been elevated for the past couple of days I would avoid any additional interventions. I do not think any additional imaging would be necessary. We'll see him back in one month. If at that time he continues to have increased neck and low back pain he may be candidate for consideration of physical therapy and or medial branch blocks with progression to thermal radio for consideration for both the back in the neck. Of note, MRI was performed of his low back in the recent past since his last visit. This shows multilevel degenerative change but mostly mild to moderate in nature. Most prominent findings include mild to moderate facet arthropathy bilaterally at multiple levels, greatest at the lowest lumbar levels. There is some mild foraminal and central canal stenosis but this is minimal. There is no evidence of direct nerve root compression. Of note, the patient is having increased left ankle pain. He is had steroid injections of the ankle in the past with benefit. This increased pain is decreasing his ability to stand walk climb stairs. He is requesting repeat steroid injection today. Risk and benefits and alternatives the above procedure were discussed in detail the patient who expressed explicit understanding and consent to proceed. Questions were elicited, asked and answered the best of our ability to his satisfaction today. [place] prescription monitoring database was reviewed and found to be appropriate. No urine drug screen was performed today. Patient tolerated the left ankle injection under ultrasound guidance well today. PRIOR VISIT (05/01/22): Patient returns in follow-up over a year since last seen. Apparently his insurance changed to [employer] which was not accepted by this hospital and he was forced to seek care elsewhere. He was eventually seen by [facility] (Dr. Wiley) where he underwent physical therapy in the left ankle injection. He denies much benefit from ankle injection and decided that physical therapy was too uncomfortable to continue. This is after 3 to 4 visits. As a result, he discontinued treatment there and change his insurance to [facility]. Apparently he elected to return to our office for ongoing management of his chronic low back pain. However, his symptoms have somewhat changed since last seen based on our records. We will [facility] to confirm, however he now complains primarily of buttock pain with radiation to the lateral thigh with what he describes as numbness and tingling on occasion. This does not go past the knee. It is painful with her he sitting or standing. He denies significant increased pain with transitioning. He will have increased pain with weight-bearing but also with any activity. When he was last seen, he was primarily complain of axial back pain and was originally scheduled for a trial of medial branch blocks with progression to thermal RF ablation. Currently however his pain seems to localized to the right SI joint. There is evidence of significant lumbosacral degeneration on previous MRI and some neural foraminal stenosis throughout the lumbar spine secondary to facet hypertrophy, mild to moderate nature, as of March 27, 2021. Given the lack of obvious nerve root compromise on MRI from 2021, it appears more likely that the patient's pain is coming from a true sacroiliitis which is supported by examination. However, given the description of sensory change, we may need to repeat his MRI to fully evaluate for new disc injury that would result in the sudden onset of radicular symptoms in the right lower extremity. Will start with x-rays of the right hip and SI joint as well as the low back. We will consider MRI of the lumbar spine in the future depending upon results. In the meantime will schedule the patient for right SI joint steroid injection for greater control of what appears to be in acute sacroiliitis. Of note today he is grimacing throughout the entire visit and when we complete the examination he appears exceptionally painful will not sit. However, as we conclude the today's visit, he became instantly much more mobile and able to freely move without outward signs of discomfort. This has been somewhat concerned over the possibility of malingering or other psychological underlay. Regardless, he did ask for medications today but was accepting of [id number] analgesics, topical Voltaren and oral Tylenol until such time as we can get him scheduled for right SI joint injection. Additionally, x-rays of the hips and SI joint performed today were personally reviewed after the patient left the office. These were completely normal. Old x-ray from March 2021 did reveal pars defect bilaterally which could predispose the patient to spondylolisthesis and resultant foraminal or central canal stenosis. I believe MRI would be reasonable to perform as a result. We will schedule this. In the meantime I'll have him to spit in physical therapy and undergo right SI joint injection for both diagnostic and therapeutic purposes. If ineffective, depending upon MRI results, consider trial of transforaminal epidural steroid injections for possible lumbosacral radiculopathy. Of note, explained the patient once again today that given his chronic use of long-acting benzodiazepines in combination with a diagnosis of bipolar one disorder and PTSD as well as a history of constipation and other side effects from use of opioid analgesics in the past I believe he is a high risk patient for potential opioid overdose and or other complications and I would not continue him on short acting medications at this point. Of note, he has been recently diagnosed with neuroendocrine tumors and is on our treated side therapy. Apparently he was developing some pain in the right liver as a result and was put on tramadol, a continuous and chronic prescription prescribed by his oncologist. According to the patient he is used all this medication is not had refilled since March. He is not intend to have refilled either. Will continue to monitor his [place] prescription database but this does all appear to be consistent based upon the report reviewed today. Risk and benefits and alternatives the above procedures were discussed in detail with the patient who expressed explicit understanding and consent to proceed. Questions were elicited, asked and answered the best of our ability and to his satisfaction today. [place] prescription monitoring database was reviewed and found to be appropriate. PRIOR VISIT (04/11/21): Patient returns 4 to 6 weeks after initial visit to discuss imaging results and overall tolerance to opioid wean. Patient is now taking 3 hydrocodone daily since his last refill on April 06, 2021. He believes is doing well although he does note increased low back and left foot pain still writing this at approximately 8/10 in intensity. He is downgraded from cast to a boot on his left foot and is no ambulating with moderate difficulty as a result. This hasn't mildly aggravated his low back pain. Imaging of his low back pain including x-ray from March 27, 2021 which shows bilateral L5 pars defect moderate mid to lower facet joint hypertrophy and disc space height loss from L2 down. MRI also reveals degenerative disc disease from L2 through L5 including a apparently stable L4 - 5 disc bulge with small annular tear some 2018 and mild to moderate neural foraminal stenosis secondary to facet joint hypertrophy at the mid to lower levels of the spine. His pain is primarily left greater than right low back in the lumbosacral region worse with extension bending and twisting consistent with a lumbar facet syndrome. Although he is reluctant to consider interventions, today he is willing to proceed after some degree of reassurance. I recommend bilateral L3, L4, L5 medial branch blocks times 2 with progression to thermal radiofrequency ablation given his moderate to severe chronic pain resistant to aggressive conservative therapy of the past several years limiting his work tolerance, activities of daily living and functional capacity. I've also recommended cognitive behavioral therapy. He has significant psychological underlay including PTSD, anxiety and depression. He would benefit from CBT especially in conjunction with his ongoing medical management for depression. I've recommended Dr. Anne Marie Lobo in [place]. He is willing to make this drive or possibly visit via telehealth as needed to obtain this level of care. I'll see the patient back 7 to 10 days after his 1st of medial branch blocks to assess and to plan next steps. In the meantime, he does not need to refill of his opioid analgesics. These will need to be refill at a reduced dose (1 PO BID) at the time of his next refill in April. [place] prescription monitoring database was reviewed and found to be appropriate. Urine drug screen from previous visit was within normal limits. No repeat drug screen was performed today. Patient was seen today for two chronic unstable conditions of the cervical spine, 3 chronic unstable conditions of the lumbar spine, one chronic unstable condition of the left ankle, one chronic unstable condition of the major joints in the context of multiple complicating systemic pathology's (bipolar one disorder, PTSD, obstructive sleep apnea, gastritis, osteoarthritis). Multiple documents reviewed in combination with today's evaluation including outside medical records, online prescription monitoring database entries, patient self-report questionnaires, laboratory data, radiologic imaging. Significant social barriers exist to compliance resulting in limited prognosis. Patient is at high risk for physical dysfunction and morbidity in the absence of treatment. Patient is on medications with high risk of toxicity requiring frequent monitoring. PRIOR VISIT: Patient is a 65-year-old male, ex- who suffers from bipolar one disorder and PTSD but has been treated chronically for bilateral neck, low back and left ankle pain since 1992. Although he is had a single steroid injection of the left ankle, he is been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 exposure. He may benefit from consideration of genicular nerve blocks of the right knee prior to undergoing water cooled thermal RF ablation here as well. Patient is open to all treatment options. He will call shortly after undergoing left olecranon bursa debridement. If this is closed primarily may be able to move forward quickly with consideration of treatment for low back pain. However, if he is going to have to leave this open packet we would wish to hold off until this is fully healed. He expressed understanding and agreement. Risk and benefits and alternatives the procedure were discussed in detail the patient who expressed explicit understanding and consent to proceed. Questions were elicited, asked and answered the best of our ability and to his satisfaction today. [place] prescription monitoring database was reviewed and found to be appropriate. Plan StartCited - Other spondylosis, lumbosacral region Referral: Pain Management Instructions: Bilateral L3, L4, L5 medial branch/dorsal ramus blocks (#1) with fluoroscopy. No blood thinners. Hold ASA x 3 days. not diabetic. No PIV/Abx. Schedule following recovery from left olecranon bursa I&D. F/U in 7-10 days. EndCited Practice Management Use of tobacco assessment performed Falls risk assessment not documented system reason Review of medications documented; Standardized depression screening: negative for symptoms and for adult impression and score one. A total of 42 minutes were spent on this patient's evaluation, as above, with greater than 50% of this time spent in direct [id number] counseling and coordination of care. Results of this interaction were communicated directly to the patient's referring and/or primary care provider. All imaging studies and test results discussed in the above document were personally reviewed and evaluated by the performing provider. For all patients on acute or chronic opioids, ongoing need for opioid analgesia is assessed at each visit with consideration of discontinuation or wean to lowest effective dose when possible and appropriate. Contents of this document have been edited for correctness, but may be subject to typographical or bindery machine setter/set up operator errors. Verify all diagnoses, medications, dosages, and patient instructions with patient and/or the originator of this document. Health Reminders - Assess Tobacco Use satisfied 07/02/2022. - Depression Screening satisfied 07/02/2022. - Follow up plan for Depression Screening satisfied 07/02/2022.
--- OUTSIDE RECORDS SUMMARY | 2024-07-04 09:44 | XMS_ITS ---
Author Organization Unknown Address [address] [place] [phone] Phone Care Team Providers Care Gericare Aide Teacher Name Role Phone ROBBIE CEJA Attending Unavailable SUYAPA YIN Primary Unavailable Immunization [...] CVX zoster recombinant 10/30/2020 Completed 187 CVX Social History Type Status Start Date End Date Code Code Syst em Smoking History Never smoker (Never Smoked) [id number] SNOMED CT Sex Male Hospital Discharge Instructions Should you have any questions prior to discharge, please contact a member of your healthcare team. If you have left the hospital and have any questions, please contact your primary care physician. Reason For Referral No Data Found Plan of Treatment No Data Found Encounters Encounter Diagnosis Start Date Code Code Sys tem Sprain of sacroiliac joint, initial encounter 06/25/19 24 SNOMED-CT Personal Care Team Section Performer Name Performer Role Active Date Inactive ANNAMARIA Gutierrez PCP - Primary care physician 2021-08-14
--- OUTSIDE RECORDS SUMMARY | 2024-07-04 09:44 | XMS_ITS | Clinical Summary ---
Author Organization [facility] Address [address] [place] [address] Phone Care Team Providers Care Veneer Puller Name Role Phone Unavailable Unavailable Unavailable Reason [...] On 05/29/2022 9:44AM By Ar COX ; [facility] Pregabalin 50 MG Oral Capsule 05/01/2022 Provider: Diagnosis: 50mg BID Last Documented On 05/01/2022 1:59PM By Freida Britt RN ; [facility] Rimegepant Sulfate 75 MG Oral Tablet Disintegrating Provider: Diagnosis: 75mg daily prn for migraine [place] Last Documented On 05/01/2022 2:00PM By Freida Britt RN ; [facility] traMADol HCl 50 MG Oral Tablet 05/01/2022 Provider: Diagnosis: 1 tab po q 6 hrs prn Last Documented On 05/01/2022 2:01PM By Freida Britt RN ; [facility] Effexor XR 150 MG Oral Capsule Extended Release 24 Alexandra r 05/01/2022 Provider: Diagnosis: 1 daily Last Documented On 05/01/2022 2:02PM By Freida Britt RN ; [facility] rOPINIRole HCl 1 MG Oral Tablet 05/01/2022 Provider: Diagnosis: TID prn Last Documented On 05/01/2022 2:02PM By Freida Britt RN ; [facility] Prazosin HCl 1 MG Oral Capsule 05/01/2022 Provider: Diagnosis: Last Documented On 05/01/2022 1:59PM By Freida Britt RN ; [facility] QUEtiapine Fumarate 100 MG Oral Tablet 05/01/2022 Pr ovider: Diagnosis: Last Documented On 05/01/2022 1:58PM By Freida Britt RN ; [facility] Cyclobenzaprine HCl 10 MG Oral Tablet 05/01/2022 Pro vider: Diagnosis: 1 tab po TID prn for muscle spasms Last Documented On 05/01/2022 1:58PM By Freida Britt RN ; [facility] Loreev XR 1 MG Oral Capsule ER 24 Hour Sprinkle 2022 Provider: Diagnosis: Last Documented On 05/01/2022 1:35PM By Ar COX ; [facility] Venlafaxine HCl ER 150 MG Or al Capsule Extended Release 24 Hour 02/28/2021 Provider: Diagnosis: Last Documented On 02/28/2021 9:15AM By Ar COX ; [facility] Levothyroxine Sodium 75 MCG Oral Capsule 02/28/2021 Provider: Diagnosis: Last Documented On 02/28/2021 9:14AM By Ar COX ; [facility] Past Medications on file Cyclobenzaprine HCl 10 MG Oral Tablet 06/20/2022 - 06/25/2022 Provider: NALDO BETH MD Diagnosis: Dorsalgia, unspecified 1 tab po TID prn for muscle spasms Last Documented On 06/20/2022 12:32PM By Naldo Beth MD ; [facility] Medications Administered Includes: Administered Medications from this encounter No Administered Medications Recorded Results Includes: Results discussed during this encounter No Results Recorded For Specified Dates History of Present Illness Includes: History of Present Illness from this encounter No History of Present Illness Recorded Social History Description Last Updated Tobacco non-user 02/28/2021 Last Documented On 3 1:08PM ; [facility] No recent change in sleep 02/28/2021 Last Documented On 3 1:08PM ; [facility] [PHQ-2] Patient Health Questionnaire 2 i tem total score: 8 (Scale: 0-6) 02/28/2021 Last Documented On 3 1:08PM ; [facility] Difficulty walking 02/28/2021 Last Documented On 3 1:08PM ; [facility] No consumption of alcohol 02/28/2021 Last Documented On 3 1:08PM ; [facility] Not using drugs 02/28/2021 Last Documented On 3 1:08PM ; [facility] Smoking Status Unknown Procedures and Surgical History Surgical History Last Updated No Pacemaker 02/28/2021 Last Documented On 3 1:08PM ; [facility] Medical History Includes: Medical History addressed during this encounter Description Last Updated Blood pressure was high 02/28/2021 Last Documented On 3 1:08PM ; [facility] Hypertension 02/28/2021 Last Documented On 3 1:08PM ; [facility] No exposure to a contagious disease 11/2020 Last Documented On 3 1:08PM ; [facility] No previous psychiatric treatment 2020 Last Documented On 3 1:08PM ; [facility] Not taking OTC medications 02/28/2021 Last Documented On 3 1:08PM ; [facility] Taking medication for high blood pressur e 02/28/2021 Last Documented On 3 1:08PM ; [facility] property caretaker 02/28/2021 Last Documented On 3 1:08PM ; [facility] Currently wearing eyeglasses 02/28/2021 Last Documented On 3 1:08PM ; [facility] Injection/Nerve blocks 02/28/2021 Last Documented On 3 1:08PM ; [facility] Moderate to severe pain 02/28/2021 Last Documented On 3 1:08PM ; [facility] No Pain Pump 02/28/2021 Last Documented On 3 1:08PM ; [facility] No Spinal cord stimulator 02/28/2021 Last Documented On 3 1:08PM ; [facility] Other method: 02/28/2021 Last Documented On 3 1:08PM ; [facility] Physical therapy 02/28/2021 Last Documented On 3 1:08PM ; [facility] Please list all illnesses/co nditions you have been diagnosed with: Bi polar manic depressed colon cancer 02/28/2021 Last Documented On 3 1:08PM ; [facility] Please list all surgeries: Dec colos gabby Apr 2015 ankle Jan 2021 ankle 02/28/2021 Last Documented On 3 1:08PM ; [facility] Surgery 02/28/2021 Last Documented On 3 1:08PM ; [facility] Uses a cane for support 02/28/2021 Last Documented On 3 1:08PM ; [facility] Uses a Knee Brace 02/28/2021 Last Documented On 3 1:08PM ; [facility] Family History Includes: Family History addressed during this encounter Description Last Updated Fraternal history of Arthritis 1 Last Documented On 3 1:08PM ; [facility] Maternal history of family history of is chemic heart disease 02/28/2021 Last Documented On 3 1:08PM ; [facility] Reported family history of seizures 11/2020 Last Documented On 3 1:08PM ; [facility] Review of Systems Includes: Review of Systems from this encounter No Review of Systems Recorded Mental Status Includes: Mental Status from this encounter No Mental Status Recorded Functional Status Includes: Functional Status from this encounter No Functional Status Recorded Physical Exam Includes: Physical Exam from this encounter No Physical Exam Recorded Allergies Includes: Active Allergies Substance Type Reaction Onset Date Resolved Date Statu s Gabapentin Allergy 05/01/2022 Active Last Documented On 07/02/2022 3:31PM ; [facility] Note: Blurred vision BEES Allergy 05/01/2022 Active Last Documented On 3 3:31PM ; [facility] Bactrim Allergy Skin Rashes / Eruption of skin 3 Active Last Documented On 3 3:31PM ; [facility] Encounters Encounter Provider Location Date Check-In Time Check-Out Time Diagnosis POST PROCEDURE PHONE CALL NALDO BETH MD 08/01/2022 1:07PM 11:59PM Insurance Includes: Active Insurance Policies Plan Name Member ID Group # Subscriber Relationship Effect vini Dates 1 - [facility] [id number] AILEEN HURD Self 2 - MEDICAID OF [place] MEDICARE SECOND [id number] AILEEN HURD Self Clinical Notes Includes: Clinical Notes from this encounter * Progress note Date Encounter Last Documented by 08/01/2022 POST PROCEDURE PHONE CALL Last d ocumented on 08/01/2022; 1:10 PM, Freida Britt RN; [facility] Top of Document Post-Procedural Patient Screening Questionnaire Date of Procedure: 07/30/22 Procedure:Bilateral L3, L4, L5 medial branch block 1. How have you felt since your last procedure? Pain decreased to 3-4 from 10 the day of procedure and pain has remained low since. Improved Same Worse 2. Pain level prior to procedure? 09/29 3. Pain level currently? 06/30 4. How long after procedure did symptoms begin? Denies Same pain but worse New Symptoms ? If new, describe: Improving Staying the same Getting worse 5. Any post procedure issues with injection? Denies Heat Swelling Soreness Redness Streaking Injection site pain Bleeding Discharge/Drainage 6. Are you experiencing new numbness in the groin or saddle area? Yes No 7.New loss of bowel or bladder control? Yes No 8. Are you having any of the following symptoms? Denies Fever Chills Night Sweats Rigors/Shaking Chills Headaches Neck Stiffness Sensitivity to sound New muscle pain/Stiffness Weakness Nausea Vomiting Diarrhea Dizziness Rash Flushing Mood Irritability Blood Pressure changes Blood sugar changes Completed by Eli Britt RN on 08/01/22 Current Medication - Ambien 10 MG Oral [...] Past Medical/Surgical History Reported: Surgery, Injection/Nerve blocks, property caretaker, 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 seizures Maternal: Ischemic heart disease Fraternal: Arthritis Health Reminders - Assess Need for CT Lung Screen satisfied 08/01/2022. - Assess Tobacco Use satisfied 08/01/2022.
--- OUTSIDE RECORDS SUMMARY | 2024-07-04 09:44 | XMS_ITS | Encounter Summary ---
Author Organization [facility] Healthcare Address [address] [place] [address] Care Team Providers Care Data Processing Manager Name Role Phone Kevin Meyer Primary Care Provider [phone] Kevin Meyer Unavailable [phone] Benja Esetban MD Unavailable [phone] Samy Bravo MD PhD Unavailable [phone] Vivian Horn RN Unavailable [phone] Encounter Details Date Type Department Care Team (Late st Contact Info) Description 09/04/2020 Telephone [facility] [address] [place] [address] Dorothy Case, RT Social History Tobacco Use Types Packs/Day Years Used Date Smoking Tobacco: Former Cigarettes 0.5 23 1 985 - 2008 Smokeless Tobacco: Never Comments:Ecig (no nicotine) Alcohol Use Standard Drinks/Week Comments No 0 (1 standard drink = 0.6 oz pure alcohol) Pt used to drink heavily > 10 years ago. Humiliation, Afraid, Rape, and Kick questionnair e Answer Date Recorded Within the last year, have y ou been afraid of your partner or ex-partner? Patient declined 04/03/2020 Within the last year, have y ou been humiliated or emotionally abused in other ways by your partner or ex-partner? Patient declined 04/03/2020 Within the last year, have y ou been kicked, hit, slapped, or otherwise physically hurt by your partner or ex-partner? Patient declined 04/03/2020 Within the last year, have y ou been raped or forced to have any kind of sexual activity by your partner or ex-partner? Patient declined 04/03/2020 Social Connection and Isolation Panel [NHANES] A nswer Date Recorded In a typical week, how many times do you talk on the phone with family, friends, or neighbors? Patient declined 04/03/2020 How often do you get togethe r with friends or relatives? Patient declined 04/03/2020 How often do you attend jewish or restoration serv ices? Patient declined 04/03/2020 Do you belong to any clubs o r organizations such as jewish groups, unions, fraternal or athletic groups, or school groups? Patient declined 04/03/2020 How often do you attend meet ings of the clubs or organizations you belong to? Patient declined 04/03/2020 Are you , , di vorced, , never , or living with a partner? Patient declined 04/03/2020 Overall Financial Resource Strain (CARDIA) Answe r Date Recorded How hard is it for you to pa y for the very basics like food, housing, medical care, and heating? Patient declined 04/03/2020 PHQ-2 Answer Date Recorded PHQ-2 Total Score 4 04/03/2020 [facility] - Occupational Stress Questionnaire Answer Date Recorded Do you feel stress - tense, restless, nervous, or anxious, or unable to sleep at night because your mind is troubled all the time - these days? Patient declined 04/03/2020 Exercise Vital Sign Answer Date Recorde d On average, how many days pe r week do you engage in moderate to strenuous exercise (like a brisk walk)? Patient declined On average, how many minutes do you engage in exercise at this level? Patient declined 04/03/2020 Hunger Vital Sign Answer Date Recorded Within the past 12 months, y ou worried that your food would run out before you got the money to buy more. Patient declined Within the past 12 months, t he food you bought just didn't last and you didn't have money to get more. Patient declined 02/2021 PRAPARE - Transportation Answer Date Re corded In the past 12 months, has l ack of transportation kept you from medical appointments or from getting medications? Patient declined 04/03/2020 In the past 12 months, has l ack of transportation kept you from meetings, work, or from getting things needed for daily living? Patient declined 04/03/2020 Housing Stability Vital Sign Answer Conner e Recorded In the last 12 months, was t here a time when you were not able to pay the mortgage or rent on time? Patient refused 04/03/19 21 Number of Places Lived in the Last Year Not on f ile 04/03/2020 In the last 12 months, was t here a time when you did not have a steady place to sleep or slept in a group home (including now)? 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 SCHOOL CROSSING GUARD Gender Identity Male 03/26/2021 11:53 AM SCHOOL CROSSING GUARD Sexual Orientation Choose not to disclose 2021 11:53 AM SCHOOL CROSSING GUARD Occupation Industry Job Start Date Job End Date disabled Not on file Not on file Not on file documented as of this encounter Plan of Treatment Not on file documented as of this encounter Visit Diagnoses Not on filedocumented in this encounter Care Teams Data Processing Manager Relationship Specialty Start Date End Date Kevin Meyer PA [address] [place] [address] PCP - General 03/23/19 Kevin Meyer PA [address] [place] [address] 03/23/19 Benja Esteban MD [address] [place] [address] Medical Oncologist/Public Health Microbiologist Hematology and Oncology 02/28/20 Samy Bravo MD PhD [address] [place] [address] Resident Psychiatry 05/31/20 09/17/20 Vivian Horn, RN [address] [address] [employer] Outpatient Cushion Gum Applicator 02/01/21 02/28/21 documented as of this encounter
--- OUTSIDE RECORDS SUMMARY | 2024-07-04 09:45 | XMS_ITS | Encounter Summary ---
Author Organization [facility] Address [address] [place] [address] Phone Care Team Providers Care Cottage Master Name Role Phone Kevin Meyer Primary Care Provider [phone] Amy Allen APRN, HOME ENERGY CONSULTANT SUPERVISOR Unavailable + [phone] Dawit MARISCAL MD, Courtney Unavailable [phone] Brad Bone MD Unavailable [phone] Vanda Jimenez APRN, HOME ENERGY CONSULTANT SUPERVISOR Unavailable Min Mario MD Unavailable Encounter Details Date Type Department Care Team (Late st Contact Info) Description 06/30/2024 Results Follow-Up [facility] [address] [place] [address] Min Mario MD [address], [address] [address] Social History Tobacco Use Types Packs/Day Years Used Date Smoking Tobacco: Former Cigarettes Q uit: 05/09/2007 Smokeless Tobacco: Never Alcohol Use Standard Drinks/Week Comments No 0 (1 standard drink = 0.6 oz pur e alcohol) Sexually Active Control Partners Comments Not Currently Female Sex and Gender Information Value Date Recorded Sex Assigned at Not on file Legal Sex Male 10:27 PM CDT Gender Identity Not on file Sexual Orientation Not on file documented as of this encounter Progress Notes * Min Mario MD - 06/30/2024 3:37 PM CDT Urine culture 06/23/2024 = mixed growth. KUB 06/24/2024 = no stone seen per official report. Await CT urogram as I saw possible right renal stones. documented in this encounter Plan of Treatment Upcoming Encounters Date Type Department Care Team (Late st Contact Info) Description 07/15/2024 9:30 AM CDT Appointment [facility] [address] [place] [phone] Min Mario MD [address] [facility] [address] [place] [address] Discharge Disposition: Discharged to home or Selfcare 07/21/2024 9:30 AM CDT Procedure Visit [facility] [address] [place] [phone] Min Mario MD [address] [facility] [address] [place] [address] documented as of this encounter Visit Diagnoses Not on filedocumented in this encounter Care Teams Cottage Master Relationship Specialty Start Date End Date Kevin Meyer PAC [address] [place] [id number] PCP - General Physician Sheetfed Press Operator 07/15/17 Amy Allen, SCAFFOLDING HELPER, HOME ENERGY CONSULTANT SUPERVISOR [address] [facility] [place] [facility] [place] [address] [place] [address] Nurse Practitioner Cardiology 01/27/23 Merlene Pastor III, MD [address] [place] [address] Consulting Physician Urology 10/28/21 Brad Bone MD [address] [place] [address] Consulting Physician Neurology 09/04/22 Vanda Jimenez APRN, HOME ENERGY CONSULTANT SUPERVISOR [address] [place] [address] Nurse Practitioner Advanced Practice Nurse 07/31/22 Min Mario MD [address] [address] Consulting Physician Urology 12/17/23 documented as of this encounter
--- OUTSIDE RECORDS SUMMARY | 2024-07-04 09:45 | XMS_ITS ---
Author Organization [facility] Address [address] [place] [address] Phone Care Team Providers Care Railroad Crossing Protection Maintainer Name Role Phone Flaquitamike Kevin LU Primary Care Provider [phone] Amy Allen APRN, PUNCH FINISHER Unavailable + [phone] Dawit MARISCAL MD, Courtney Unavailable [phone] Brad Bone MD Unavailable [phone] Vanda Jimenez APRN, PUNCH FINISHER Unavailable Min Mario MD Unavailable Jose Chronic Condition Monitoring Status:Enrolled (Active) Start date:04/20/2024 Enrollment date:04/20/2024 Related social drivers of health:Intimate Partner Violence, Social Connections, Alcohol Use, Tobacco Use, Financial Resource Strain,Depression, Stress, Physical Activity, Food Insecurity, Transportation Needs, Housing Stability, Utilities Continued Care and Services Coordination
--- OUTSIDE RECORDS SUMMARY | 2024-07-04 09:45 | XMS_ITS | Encounter Summary ---
Author Organization [facility] Address [address] [facility] [address] [place] [address] Phone Care Team Providers Care Certified Ophthalmic Technician Name Role Phone Kevin Meyer Primary Care Provider [phone] Kevin Meyer Primary Care Provider [phone] Kevin Meyer Unavailable [phone] Benja Esteban MD Unavailable [phone] Samy Bravo MD PhD Unavailable [phone] Vivian Horn RN Unavailable [phone] Encounter Details Date Type Department Care Team (Late st Contact Info) Description 05/20/2017 Orders Only [facility] ProviderEstefania MD [address] [place] [address] Social History Tobacco Use Types Packs/Day Years Used Date Smoking Tobacco: Former Smokeless Tobacco: Never Alcohol Use Standard Drinks/Week Comments No 0 (1 standard drink = 0.6 oz pur e alcohol) Sex and Gender Information Value Date Recorded Sex Assigned at Not on file Legal Sex Male 3:25 AM ENGINEERING MANAGER ELECTRONICS Gender Identity Male 03/26/2021 11:53 AM ENGINEERING MANAGER ELECTRONICS Sexual Orientation Choose not to disclose 2021 11:53 AM ENGINEERING MANAGER ELECTRONICS documented as of this encounter Plan of Treatment Not on file documented as of this encounter Procedures Procedure Name Priority Date/Time Associated Diagnosis Comments DISCHARGE LABORATORY CUMULATIVE REPORT 05/20/2017 12:00 AM ENGINEERING MANAGER ELECTRONICS documented in this encounter Results * DISCHARGE LABORATORY CUMULATIVE REPORT (05/20/2017 12:00 AM ENGINEERING MANAGER ELECTRONICS) Narrative 05/20/2017 12:00 AM ENGINEERING MANAGER ELECTRONICS Ordered by an unspecified provider. us Historical Provider LAB BLOOD ORDERABLES Elena l Result documented in this encounter Visit Diagnoses Not on filedocumented in this encounter Care Teams Certified Ophthalmic Technician Relationship Specialty Start Date End Date Kevin Meyer PA [address] [place] [address] PCP - General 08/13/16 03/22/19 Kevin Meyer PA [address] [place] [address] PCP - General 03/23/19 Kevin Meyer PA [address] [place] [address] 03/23/19 Benja Esteban MD [address] [place] [address] Medical Oncologist/Brass Buffer Hematology and Oncology 02/28/20 Samy Bravo MD PhD [address] [place] [address] Resident Psychiatry 05/31/20 09/17/20 Vivian Horn, RN [address] [address] SHOP Outpatient Metal Container Maker 02/01/21 02/28/21 documented as of this encounter
--- OUTSIDE RECORDS SUMMARY | 2024-07-04 09:45 | XMS_ITS | Encounter Summary ---
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) Social History Tobacco Use Types Packs/Day Years Used Date Smoking Tobacco: Former Cigarettes 0.5 20 0 05/12/1987 - 05/12/2007 Smokeless Tobacco: Never Alcohol Use Standard Drinks/Week Comments Not Currently 0 (1 standard drink = 0.6 oz pur e alcohol) Sex and Gender Information Value Date Recorded Sex Assigned at Not on file Legal Sex Male 10:45 PM CDT Gender Identity Not on file Sexual Orientation Not on file documented as of this encounter Plan of Treatment Upcoming Encounters Date Type Department Care Team (Late st Contact Info) Description 07/05/2024 2:15 PM CDT Office Visit [facility] Oncology and Hematology [address] [place] [address] Jorden Serrano MD [address] [place] [address] documented as of this encounter Visit Diagnoses Diagnosis Benign hypertension Essential hypertension, benign 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
--- OUTSIDE RECORDS SUMMARY | 2024-07-04 09:45 | XMS_ITS | Clinical Summary ---
Author Organization [facility] Address [address] [place] [address] Phone Care Team Providers Care Boarding Kennel Or Cattery Operator Name Role Phone Kevin Meyer Primary Care Provider [phone] Amy Allen APRN, SOLDERING MACHINE OPERATOR AUTOMATIC Unavailable + [phone] Dawit MARISCAL MD, Courtney Unavailable [phone] Brad Bone MD Unavailable [phone] Vanda Jimenez APRN, SOLDERING MACHINE OPERATOR AUTOMATIC Unavailable Min Mario MD Unavailable Allergies Active Allergy Reactions Criticality Noted Date Comments Acetaminophen Other (see Comments) High 07/02/2022 Patient requires vicoprofen due to history of liver cancer Bee Venom Anaphylaxis High 05/09/2015 Gabapentin Other (see Comments) 05/09/2015 Blurred vision Ibuprofen Other (see Comments) 12/17/2023 Doesn't remember what happens when he takes it Sulfamethoxazole-Trimet hoprim Rash,Hives 06/23/2022 Medications venlafaxine (EFFEXOR-XR) 150 MG CAPSULE SR 24 HR Take 150 mg by mouth daily. Active levothyroxine (SYNTHROID) 75 MCG Tablet Take 1 Tablet by mouth every morning. 90 Tablet 07/26/19 22 Active EPINEPHrine (EPIPEN) 0.3 MG/0.3ML Solution Auto-injector INJECT 0.3 MILLILITER (0.3 MG) BY INTRAMUSCULAR ROUTE ONCE NEEDED FOR ANAPHYLAXIS 09/24/19 Active Nurtec 75 MG TABLET DISPERSIBLE TAKE 1 TABLET ONCE NEEDED FOR MIGRAINE HEADACHE A SINGLE DOSE MAX OF 1 PER DAY 09/24/19 22 Active prazosin (MINIPRESS) 2 MG Capsule nightly. 05/05/19 23 Active diazePAM (VALIUM) 2 MG Tablet Take 1 mg by mouth nightly. 02/04/20 23 Active amLODIPine (NORVASC) 2.5 MG Tablet Take 1 Tablet by mouth daily. 90 Tablet 3 02/19/20 23 Active Additional Information Patient taking differently: 10 mgOralNIGHTLY, Reported on 06/23/2024 pregabalin (LYRICA) 75 MG Capsule Take 75 mg by mouth every morning. Active LORazepam ER (Loreev XR) 1 MG Capsule ER 24 Hour SprinkleIndica tions:Anxiety Take 1 Capsule by mouth every morning. Indications: Feeling Anxious 12/17/19 22 Active octreotide (SandoSTATIN) 100 MCG/ML Solution 100 mcg by Intravenous route every 30 days. Active oxyCODONE (ROXICODONE) 5 MG Tablet Take 5 mg by mouth every 6 hours as needed for Pain. 02/18/20 23 Active ondansetron (Zofran) 4 MG Tablet Take 1 Tablet by mouth every 6 hours as needed for Nausea - 1st line. 15 Tablet 1 12/28/19 24 Active Vraylar 1.5 MG Capsule Active hydroCHLOROthi azide 25 MG Tablet Take 25 mg by mouth. 12/23/19 24 Active OLANZapine (ZYPREXA) 5 MG Tablet nightly. 01/05/20 24 Active modafinil (PROVIGIL) 100 MG Tablet Active ondansetron (Zofran) 4 MG Tablet Take 1 Tablet by mouth every 4 hours as needed for Nausea - 1st line. 60 Tablet 1 01/25/20 24 Active pantoprazole (PROTONIX) 40 MG Tablet Delayed Response TAKE 1 TABLET BY MOUTH DAILY. 90 Tablet 1 06/23/19 25 Active pantoprazole (PROTONIX) 40 MG Tablet Delayed Response Take 1 Tablet by mouth daily. 90 Tablet 1 12/28/19 24 2024 Discontinued cephALEXin (KEFLEX) 500 MG Capsule Take 1 Capsule by mouth 3 times daily for 7 days. 21 Capsule 06/24/19 25 2024 Active Problems Problem Noted Date Diagnosed Date Chest pain 02/19/2023 Fatigue due to excessive exertion 02/19/2023 Abnormal echocardiogram 02/19/2023 Neuroendocrine carcinoma metastatic to liver 06/2021 Primary hypertension 07/24/2021 Syncope 07/22/2021 Anxiety 07/22/2021 Pneumonia due to COVID-19 virus 07/22/2021 Carcinoid tumor 07/22/2021 Liver lesion 07/22/2021 Hypothyroid 07/22/2021 Bipolar 1 disorder 05/14/2015 Posttraumatic stress disorder 05/14/2015 Marijuana abuse 05/14/2015 Encounters Date Type Department Care Team Description 06/30/2024 Results Follow-Up [facility] PHYSICIAN [facility] UROLOGY [address] [place] [address] Min Mario MD 06/30/2024 Results Follow-Up [facility] UROLOGY [address] [place] [address] Min Mario MD 06/23/2024 9:30 AM CDT Office Visit [facility] UROLOGY [address] [place] [address] Min Mario MD Kidney stone (Primary Dx); Urinary tract infection with hematuria, site unspecified; Acute cystitis with hematuria Discharge Disposition: Discharged to home or Selfcare 06/22/[facility] [place] [address] Vanda Jimenez APRN, JUANCHO Medication Refill 06/22/2024 Travel 06/20/2024 8:35 AM CDT - 06/20/2024 11:59 PM CDT Hospital Encounter [facility] Diagnostic Radiology [address] [place] [address] Min Mario MD Discharge Disposition: Discharged to home or Selfcare 06/20/2024 Travel 06/10/2024 Telephone [facility] - Gastroenter[facility] [address] [place] [address] Vanda Jimenez APRN, SOLDERING MACHINE OPERATOR AUTOMATIC from Last 3 Months Immunizations Immunization Administration Dates Next Due H1N1 Flu, Unspecified Formulation 06/04/2009 Influenza Vaccine less than 3 yrs 03/08/2015 Influenza Vaccine, MDCK,quad rivalent, pres free 01/09/2022 Influenza Vaccine, Quadrivalent, PF 10/2021,01/03/2019,01/28/2018,2013 Influenza Vaccine,unspecifie d Formulation 01/03/2020,04/29/2013,02/05/2012,2010,01/22/2010,12/13/2008,12/24/2006 Influenza, Injectable, Quadrivalent 12/21,01/06/2019,01/07/2017,2014 Influenza, Seasonal, Injecta ble, Undefined 03/08/2015 Pneumococcal Vaccine Adult - 23 Valent 03/08/2015 TB Skin Test 06/04/2015,05/27/2015,05/25/2015 TDAP Vaccine 05/12/2022,04/29/2013 Zoster Vaccine Recombinant 10/30/2020,08/28/2020 Zoster, Unspecified Formulation 08/28/2020 Family History Medical History Relation Name Comments Asthma Mother Congestive Heart Failure Mother Heart Attack Mother Relation Name Status Comments Father Mother Social History Tobacco Use Types Packs/Day Years Used Date Smoking Tobacco: Former Cigarettes Q uit: 05/09/2007 Smokeless Tobacco: Never Tobacco Cessation:Counseling Given: Not Answered Alcohol Use Standard Drinks/Week Comments No 0 [...] Sign Reading Time Taken Comments Blood Pressure 116/73 06/23/2024 9:24 AM CDT Pulse 77 06/23/2024 9:24 AM CDT Temperature 36 C (96.8 F) 01/12/2024 8:32 AM CDT Respiratory Rate 14 06/23/2024 9:24 AM CDT Oxygen Saturation 96% 06/23/2024 9:24 AM CDT Inhaled Oxygen Concentration - - Weight 89.4 kg (197 lb) 06/23/2024 9:24 AM CDT Height 182.9 cm (6') 06/23/2024 9:24 AM CDT Body Mass Index 26.72 06/23/2024 9:24 AM CDT Plan of Treatment Upcoming Encounters Date Type Department Care Team (Late st Contact Info) Description 07/15/2024 9:30 AM CDT Appointment [facility] [address] [place] [address] Min Mario MD #[address] [address] Discharge Disposition: Discharged to home or Selfcare 07/21/2024 9:30 AM CDT Procedure Visit [facility] UROLOGY #[address] [place] [address] Min Mario MD #[address] [address] Health Maintenance Due Date Last Done Comments Hepatitis C Virus (HCV) Screening 1966 SARS-COV-2 Immunization (#1) 06/17/1971 Hepatitis B Immunization (1 of 3 - 19+ 3-dose series) 1985 Pneumococcal Immunization (50+ years) (2 of 2 - PCV) 03/08/2016 03/08/2015 Cologuard 2016 Immunochemical Fecal Occult Blood 2016 PSA Discussion 2021 Influenza Immunization (Season Ended) 2024 01/09/2022, 05/28/2021, 01/09/2020, Additional history exists Colonoscopy 08/06/2025 08/06/2022, 07/08/2021 Colorectal Cancer Screening 08/06/2025 Td Immunization Every 10 Years (Adults With 1 Tdap) 05/12/2032 05/12/2022, 04/29/2013 Respiratory Syncytial Virus (RSV) Immunization (Adult) (1 - 1-dose 75+ series) 2041 08/06/2022, 07/08/2021 Pneumococcal Immunization Combined Discontinued 03/08/2015 Zoster Immunization Completed 10/30/2020, 08/28/2020, 08/28/2020 DTaP/Tdap/Td Immunization Discontinued 05/12/2022, 09/2013 TdaP Immunization Discontinued 05/12/2022, 04/29/2013 Meningococcal Immunization (ACWY) Aged Out No longer eligible based on patient's age to complete this topic Rotavirus Immunization Aged Out No lo nger eligible based on patient's age to complete this topic Procedures Procedure Name Priority Date/Time Associated Diagnosis Comments CULTURE, URINE Routine 06/23/2024 10:11 AM CDT Kidney stone POCT UA AUTOMATED W/O MICRO Routine 06/23/2024 9:24 AM CDT Kidney stone XR ABDOMEN KUB FLAT PLATE Routine 06/20/2024 8:48 AM CDT Kidney stone from Last 3 Months Results * CULTURE, URINE (06/23/2024 10:11 AM CDT) Pathologist [facility] CULTURE RESULTS Mixed Growth of One or More Distal Urethral Contaminants 06/24/2024 11:25 PM CDT [facility] Culture URINE SPECIMEN OBTAINED BY CLEAN CATCH PROCEDURE / Unknown Non-Phlebotomy Collection / Unknown 06/23/2024 10:11 AM CDT 06/23/2024 10:11 AM CDT us Min Mario MD MICROBIOLOGY - GENERAL ORDERABLE S Final Result [facility] [address] [place] [address], * (ABNORMAL) POCT UA AUTOMATED W/O MICRO (06/23/2024 9:24 AM CDT) POC UA SPECIFIC GRAVITY 1.020 URINE PH 7.0 5.0 - 9.0 POC URINE LEUKOCYTES 75 /uL(A) Negative Malgorzata/uL POC URINE NITRITE Positive(A) Negative POC URINE PROTEIN Trace(A) Negative mg/dL POC URINE GLUCOSE Norm Negative, Norm mg/dL POC URINE KETONE Negative Negative mg/dL POC URINE UROBILINOGEN Norm Norm, 0.2 E.U./dL (mg/dL), 1 E.U./dL (mg/dL) POC URINE BILIRUBIN Negative Negative mg/dL POC URINE BLOOD INSTRUMENT 250 Jose Antonio/uL(A) Negative Jose Antonio/uL POC URINE COLOR [place] POC URINE CLARITY Clear Urine 06/23/2024 9:24 AM CDT us Min Mario MD POINT OF CARE TESTING (MANUAL) F inal Result * XR ABDOMEN KUB FLAT PLATE (06/20/2024 8:48 AM CDT) Anatomical Region Laterality Modality Abdomen N/A Digital Radiogra phy 06/24/2024 10:4 3 PM CDT Impressions 06/24/2024 10:45 PM CDT IMPRESSION: No acute abnormality Narrative 06/24/2024 10:45 PM CDT EXAM DESCRIPTION: XR ABDOMEN KUB FLAT PLATE REASON FOR STUDY: Left low back pain with urinary frequency x 2 months worse x 2 weeks- Hx colon cancer with mets to liver with radiation bead treatment, appendectomy, cholecystectomy TECHNIQUE: 2 radiographic view of the abdomen. COMPARISON: None FINDINGS: BOWEL: Nonobstructive gas pattern. SOFT TISSUES: No abnormal calcifications. LINES/TUBES: None. BONES: No acute osseous abnormality. Surgical fusion at L5-S1 is noted. THIS IS AN ELECTRONICALLY VERIFIED FINAL REPORT 06/24/2024 10:43 PM - Electronically signed by Iker Curiel M.D. KH: [email or web address] Report ID: [id number] Reading Location: [id number] Procedure Note Iker Curiel MD - 06/24/2024 EXAM DESCRIPTION: XR ABDOMEN KUB FLAT PLATE REASON FOR STUDY: Left low back pain with urinary frequency x 2 months worse x 2 weeks- Hx colon cancer with mets to liver with radiation bead treatment, appendectomy, cholecystectomy TECHNIQUE: 2 radiographic view of the abdomen. COMPARISON: None FINDINGS: BOWEL: Nonobstructive gas pattern. SOFT TISSUES: No abnormal calcifications. LINES/TUBES: None. BONES: No acute osseous abnormality. Surgical fusion at L5-S1 is noted. THIS IS AN ELECTRONICALLY VERIFIED FINAL REPORT 06/24/2024 10:43 PM - Electronically signed by Iker Curiel M.D. KH: [id number] Report ID: [id number] Reading Location: [place] [address] IMPRESSION: No acute abnormality Min Mario MD IMG DIAGNOSTIC ORDERABLES Final Result from Last 3 Months Insurance [place], [place] [id number] MEDICARE C [employer] [place] Advance Directives * Full Code (Latest Code Status on File) Date Activated Date Inactivated Comments 07/22/2021 11:01 PM 07/24/2021 6:15 PM CPR-Full Oralia tment: FULL ARREST: Attempt Resuscitation/CPR wit intubation and mechanical ventilation. PRE-ARREST: Use entire range of life support measures to stabilize the patient. * Full Code Date Activated Date Inactivated Comments 05/24/2015 3:30 PM 06/07/2015 12:16 PM Full Code: FULL ARREST: Attempt Resuscitation/CPR and use intubation and mechanical ventilation as indicated. PRE-ARREST: Use all measures to stabilize patient. * Full Code Date Activated Date Inactivated Comments 05/09/2015 10:22 PM 05/23/2015 8:02 AM Full Code: FULL ARREST: Attempt Resuscitation/CPR and use intubation and mechanical ventilation as indicated. PRE-ARREST: Use all measures to stabilize patient. Care Teams Boarding Kennel Or Cattery Operator Relationship Specialty Start Date End Date Kevin Meyer PAC [address] [place] [place] [address] PCP - General Physician Reclamation Furnace Operator 07/15/17 Amy Allen, BILINGUAL BRANCH MANAGER, SOLDERING MACHINE OPERATOR AUTOMATIC [address]2 [facility], [address] [place] [address] Nurse Practitioner Cardiology 01/27/23 Merlene Pastor III, MD #2 [place] [address] Consulting Physician Urology 10/28/21 Brad Bone MD #2 [place] [address] Consulting Physician Neurology 09/04/22 Vanda Jimenez APRN, SOLDERING MACHINE OPERATOR AUTOMATIC #2 [place] [address] Nurse Practitioner Advanced Practice Nurse 07/31/22 Min Mario MD #[address] [address] Consulting Physician Urology 12/17/23
--- OUTSIDE RECORDS SUMMARY | 2024-07-04 09:45 | XMS_ITS | CONTINUITY OF CARE DOCUMENT ---
Author Name linda mckeon Address Unknown Organization [facility] Address [address] [place] [address] [address] [place] [address] Phone [phone] Care Team Providers Care Travel Agent Name Role Phone Marlo HERNANDES, Eli Unavailable BETSY REYNA MD Unavailable [phone] INSURANCE PROVIDERS Payer name Policy type / Coverage type [place] red republican ID [employer] AND FAMILY SERVICES Medicaid 0 [id number] [place] Medicare [id number]
--- OUTSIDE RECORDS SUMMARY | 2024-07-04 09:45 | XMS_ITS | Encounter Summary ---
Author Organization [facility] Address [address] [facility] [place] [address] Phone Care Team Providers Care Shingle Trimmer Name Role Phone Kevin Meyer Primary Care Provider [phone] Amy Allen APRN, FOOD SERVICE DRIVER Unavailable + [phone] Dawit MARISCAL MD, Courtney Unavailable [phone] Brad Bone MD Unavailable [phone] Vanda Jimenez APRN, FOOD SERVICE DRIVER Unavailable Min Mario MD Unavailable Reason for Visit * Reason Comments Medication Refill Encounter Details Date Type Department Care Team (Late st Contact Info) Description 06/22/2024 Refill [facility] #2 [place] [address] Vanda Jimenez APRN, FOOD SERVICE DRIVER [address] [place] [address] Medication Refill Social History Tobacco Use Types Packs/Day Years [...] on file documented as of this encounter Miscellaneous Notes * Telephone Encounter - Raisa Rader RN - 06/22/2024 12:52 PM CDT Medication [facility] and [facility] standing order for pediatric and adult patients. documented in this encounter Plan of Treatment Upcoming Encounters Date Type Department Care Team (Late st Contact Info) Description 07/15/2024 9:30 AM CDT Appointment [facility] [address] [place] [address] Min Mario MD #2 [facility] [address] [place] [address] Discharge Disposition: Discharged to home or Selfcare 07/21/2024 9:30 AM CDT Procedure Visit [facility] UR[facility]Y #2 [place] [address] Min Mario MD #2 [facility] [address] [place] [address] documented as of this encounter Visit Diagnoses Not on filedocumented in this encounter Care Teams Shingle Trimmer Relationship Specialty Start Date End Date Kevin Meyer PAC [address] [place] [address] PCP - General Physician Manager Chemistry 07/15/17 Amy Allen APRN, FOOD SERVICE DRIVER #[facility] [address] [place] [address] Nurse Practitioner Cardiology 01/27/23 Merlene Pastor III, MD #2 [place] [address] Consulting Physician Urology 10/28/21 Brad Bone MD #2 [place] [address] Consulting Physician Neurology 09/04/22 Vanda Jimenez APRN, FOOD SERVICE DRIVER #[address] [place] [address] Nurse Practitioner Advanced Practice Nurse 07/31/22 Min Mario MD #[address] [address] Consulting Physician Urology 12/17/23 documented as of this encounter
--- OUTSIDE RECORDS SUMMARY | 2024-07-04 09:45 | XMS_ITS | Encounter Summary ---
Author Organization [facility] Address [address] [place] [address] Phone Care Team Providers Care Flume Maker Name Role Phone Kevin Meyer Primary Care Provider [phone] Amy Allen APRN, JOINER APPRENTICE Unavailable + [phone] Dawit MARISCAL MD, Courtney Unavailable [phone] Brad Bone MD Unavailable [phone] Vanda Jiemnez APRN, JOINER APPRENTICE Unavailable Min Mario MD Unavailable Encounter Details Date Type Department Care Team (Late st Contact Info) Description 06/30/2024 Results Follow-Up [facility] [address] [place] [address] Min Mario MD #[address], [address] [address] Social History Tobacco Use Types Packs/Day Years [...] Notes * Min Mario MD - 06/30/2024 3:36 PM CDT Urine culture 06/23/2024 = mixed growth. KUB 06/24/2024 = no stone seen per official report. Await CT urogram as I saw possible right renal stones. documented in this encounter Miscellaneous Notes * Telephone Encounter - Min Mario MD - 06/30/2024 3:35 PM CDT Urine culture 06/23/2024 = mixed growth. KUB 06/24/2024 = no stone seen per official report. Await CT urogram as I saw possible right renal stones. documented in this encounter Plan of Treatment Upcoming Encounters Date Type Department Care Team (Late st Contact Info) Description 07/15/2024 9:30 AM CDT Appointment [facility] [address] [place] [address] Min Mario MD #[address] [address] Discharge Disposition: Discharged to home or Selfcare 07/21/2024 9:30 AM CDT Procedure Visit [facility] [address] [place] [address] Min Maroi MD #[address] [address] documented as of this encounter Visit Diagnoses Not on filedocumented in this encounter Care Teams Flume Maker Relationship Specialty Start Date End Date Kevin Meyer, [facility] [address] [place] [address] PCP - General Physician Inspector [employer] 07/15/17 Amy Allen APRN, JOINER APPRENTICE #2 [facility] [address] [place] [address] Nurse Practitioner Cardiology 01/27/23 Merlene Pastor III, MD #[address] [place] [address] Consulting Physician Urology 10/28/21 Brad Bone MD [address] [place] [address] Consulting Physician Neurology 09/04/22 Vanda Jimenez APRN, JOINER APPRENTICE #[address] [place] [address] Nurse Practitioner Advanced Practice Nurse 07/31/22 Min Mario MD #[address] [address] Consulting Physician Urology 12/17/23 documented as of this encounter
--- OUTSIDE RECORDS SUMMARY | 2024-07-04 09:45 | XMS_ITS ---
Author Organization Unknown Address [address] [place], [place] [id number] Phone Care Team Providers Care Community Relations Officer Name Role Phone TONYA Forrest Attending Unavailable SUYAPA YIN Primary Unavailable Immunization [...] CBC W/ DIFF - Collect Date/T nadia: 01/26/2023 15:30 [facility] ID: [id number] [address] [place], [place], [id number] LOINC: 78125-6 Test Value Unit Reference Range Code Code System Flag WBC 10.1 10^3uL L=4.8 H=10.8 RBC 4.22 10^6uL L=4.60 H=6.20 L HEMOGLOBIN 13.5 g/dL L=14.0 H=18.0 718-7 LOINC L HEMATOCRIT 39.3 VOL% L=42.0 H=52.0 4544-3 LOINC L MCV 93.1 fL L=80.0 H=94.0 MCH 32.0 pg L=27.0 H=32.0 MCHC 34.4 g/dL L=32.0 H=36.0 PLATELETS 227 10^3uL L=100 H=400 58448-4 LOINC RDW 12.7 % L=11.7 H=15.5 %GRAN 72.5 % L=40.0 H=70.0 88996-2 LOINC H %LYMPH 12.1 % L=20.0 H=45.0 736-9 LOINC L %MONO 11.1 % L=2.0 H=10.0 35546-1 LOINC H %EOS 3.2 % L=0.0 H=6.0 713-8 LOINC %BASO 0.5 % L=0.0 H=3.0 706-2 LOINC #NEUT 7.3 10^3uL L=1.9 H=7.6 58674-7 LOINC #LYMPH 1.2 10^3uL L=0.9 H=4.9 70181-1 LOINC #MONO 1.1 10^3uL L=0.1 H=0.9 03171-6 LOINC H #EOS 0.3 10^3uL L=0.0 H=0.6 712-0 LOINC #BASO 0.05 10^3uL L=0.00 H=0.10 31864-7 LOINC #IM GRANS 0.1 10^3uL L=0.0 H=7.0 16034-3 LOINC %IM GRANS 0.6 % L=0.0 H=5.0 40866-3 LOINC %NRB 0.0 L=0.0 H=0.2 39182-4 LOINC #NRB 0.000 L=0.000 H=0.012 80449-0 LOINC MANUAL DIFF NOT INDICATED RBC MORPH NOT INDICATED COMPREHENSIVE METABOLIC PANE L - Collect Date/Time: 01/26/2023 15:30 [facility] ID: [id number] [address] [place], [place], [id number] LOINC: 76083-7 Test Value Unit Reference Range Code Code System Flag FASTING UNKNOWN BUN 11 mg/dL L=7 H=20 3094-0 LOINC CREATININE 1.20 mg/dL L=0.66 H=1.25 2160-0 LOINC GLUCOSE 97 mg/dL L=74 H=106 2345-7 LOINC SODIUM 131 mmol/L L=132 H=144 2951-2 LOINC L POTASSIUM 4.0 mmol/L L=3.5 H=5.1 2823-3 LOINC CHLORIDE 95 mmol/L L=98 H=107 2075-0 LOINC L CO2 27.0 mmol/L L=22.0 H=30.0 2028-9 LOINC ANION GAP 13 L=10 H=20 44359-6 LOINC OSMOLALITY 271 mOs/kG L=280 H=296 60277-7 LOINC L BUN/CREAT 9.2 3097-3 LOINC CALCIUM 9.4 mg/dL L=8.3 H=10.5 10863-0 LOINC AST 29 U/L L=15 H=46 1920-8 LOINC ALT 33 U/L L=9 H=72 1742-6 LOINC ALKALINE PHOS 115 U/L L=38 H=126 6768-6 LOINC TOTAL BILI 0.6 mg/dL L=0.2 H=1.3 1975-2 LOINC ALBUMIN 4.5 G/dL L=3.5 H=5.0 1751-7 LOINC TOTAL PROTEIN 8.1 g/L L=6.3 H=8.2 2885-2 LOINC A/G RATIO 1.3 09376-7 LOINC AGE 57 [address]-5 LOINC eGFR NON-AFR 67 ml/min eGFR AFR AMER 81 ml/min URINALYSIS w/Microscopy/C&S if indicated - Collect Date/Time: 01/26/2023 14:34 [facility] ID: [id number] [address] [place], [place], [id number] LOINC: 38492-7 Test Value Unit Reference Range Code Code System Flag UR SOURCE UNKNOWN 73846-3 LOINC COLOR LT YELLOW YELLOW 5778-6 LOINC CLARITY CLEAR CLEAR 47531-0 LOINC SPEC GRAVITY <=1.005 1.000-1.030 5811-5 LOINC PH 5.5 5.0 - 6.5 5803-2 LOINC LEUK EST NEGATIVE NEGATIVE 5799-2 LOINC NITRATE NEGATIVE NEGATIVE PROTEIN NEGATIVE NEGATIVE 5804-0 LOINC GLUCOSE NEGATIVE NEGATIVE 90704-0 LOINC KETONES NEGATIVE NEGATIVE 33014-2 LOINC UROBILINOGEN 0.2 NEGATIVE 5818-0 LOINC BILIRUBIN NEGATIVE NEGATIVE 25083-0 LOINC BLOOD NEGATIVE NEGATIVE 53025-8 LOINC WBC 0-2 0 - 2 76473-9 LOINC RBC 0-2 0 - 2 56524-0 LOINC EPITHELIAL RARE RARE-FEW 88778-5 LOINC BACTERIA NONE SEEN NONE SEEN 89233-5 LOINC MUCUS NONE SEEN NONE SEEN 8247-9 LOINC YEAST NOT PRESENT NOT PRESENT 04337-6 LOINC CASTS NONE SEEN 05548-4 LOINC CRYSTALS NONE SEEN 07852-3 LOINC CULTURE? NO 8251-1 LOINC DIAGNOSIS N/A CT ABD/PEL W/ CONTRAST - Com pleted: 01/26/2023 16:32 LOINC: 51264-6 EXAM DESCRIPTION: CT ABD/PEL W/ CONTRAST REASON FOR STUDY: hx of tumors on liver back pain today hx of appendix, hernia and removal of cancer mass in abdomen no radiation or chemo Duration: today TECHNIQUE: CT scan of the abdomen and pelvis performed with intravenous and without oral contrast using helical scanning technique with dynamic intravenous contrast injection. Reconstructed coronal and sagittal MPR images reviewed. All images stored on PACS. Automated exposure control was used as a dose optimization technique for this examination. CONTRAST TYPE/DOSE: 100 of [id number] injected via lac COMPARISON: None available on PACS at the time of interpretation. REFERENCE: Per ACR white paper recommendations, unless otherwise specified no follow-up imaging is recommended for incidental renal and adrenal lesions per consensus recommendations based on imaging criteria. Further lab evaluation could be pursued based on clinical findings. FINDINGS: LOWER CHEST: Mild dependent atelectasis. Visualized portions of the lungs are otherwise clear. LIVER: There are linear hyperdensities segment 7 of the liver corresponding to area attributed to post embolization change on prior CT report dated 10/06/2022. There is a 4 mm hypodense focus at the posterior aspect segment 7. No other focal liver lesion is evident. GALLBLADDER: Unremarkable. BILE DUCTS: No intrahepatic or extrahepatic ductal dilatation. SPLEEN: Normal size. No focal lesions. PANCREAS: Partially fatty replaced. No identified cystic or solid masses. No significant calcifications. No adjacent inflammation or peripancreatic fluid collections. Pancreatic duct not dilated. ADRENALS: Normal. KIDNEYS/URINARY TRACT: There is a 1.1 cm hypodense cystic focus at the inferior polar region of the right kidney with adjacent parenchymal calcification measuring 10 mm. There are small subcentimeter cysts at the inferior polar region of the left kidney. No other focal renal lesion is evident. There is mild nonspecific perinephric fat stranding bilaterally. No hydronephrosis or ureterolithiasis is evident. Urinary bladder is unremarkable. GI: There are few scattered diverticula within the large bowel without adjacent inflammation to suggest diverticulitis. Appendix appears to be absent. Small bowel appears within normal limits. PERITONEUM: No ascites or free air. RETROPERITONEUM: No mass or adenopathy. REPRODUCTIVE: No significant abnormality. VASCULATURE: No abdominal aortic aneurysm. MUSCULOSKELETAL: No suspicious abnormality identified. OTHER: No other abnormality. IMPRESSION: 1. Evidence of acute intra-or intrapelvic abnormality. 2. Right renal cyst with adjacent calculus or complex cystic lesion. This appears similar to previous exam dated 10/06/2022 by description. However, images were unavailable in PACs for comparison at the time of interpretation. 3. Linear hyperdensities in the right lobe of the liver in segment 7 in keeping with history of prior embolization. 4. Mild colonic diverticulosis. THIS IS AN ELECTRONICALLY VERIFIED FINAL REPORT 01/26/2023 4:50 PM - Electronically signed by Paul Wetzel M.D., D.O. Paul Wetzel M.D., D.O. MW: [id number] Report ID: [id number] Reading Location: [id number] Social History Type Status Start Date End Date Code Code Syst em Smoking History Never smoker (Never Smoked) 821969251 SNOMED CT Sex Male Hospital Discharge Instructions Should you have any questions prior to discharge, please contact a member of your healthcare team. If you have left the hospital and have any questions, please contact your primary care physician. Reason For Referral No Data Found Plan of Treatment No Data Found Encounters Encounter Diagnosis Start Date Code Code Sys tem Low back pain, unspecified 01/26/2023 S NOMED-CT Personal Care Team Section Performer Name Performer Role Active Date Inactive Da ANNAMARIA Murphy PCP - Primary care physician 2021-08-14 Imaging Narrative Notes
--- OUTSIDE RECORDS SUMMARY | 2024-07-04 09:45 | XMS_ITS | Clinical Summary ---
Author Organization [facility] Address [address] [place] [address] Care Team Providers Care Assembler Flexible Leads Name Role Phone Kevin Meyer Primary Care Provider [phone] Source Comments [facility],non-owned Affiliates and Associated Physician Practices is amultiple site organization consisting of ambulatory clinics and hospital sitesin [place], [place], [place] and [place]. This disclosure is being madepursuant to the Care Everywhere program and may not contain all information available regarding this patient. Last updated 17.[facility] Allergies Active Allergy Reactions Criticality Noted Date Comments Bee Venom Anaphylaxis High 06/22/2006 Gabapentin Vision Changes 08/07/2021 Blurred vision Medications * Be aware that medications may not be up to date on this document. Alwaysverify current medications with the patient. levothyroxine (SYNTHROID) 75 MCG tablet Take 1 (one) tablet by mouth once daily Active amLODIPine (NORVASC) 10 MG tablet Take 10 mg by mouth once daily 2 Active lamoTRIgine (LAMICTAL) 50 MG TABS Take 50 mg by mouth at bedtime 2 Active LORazepam (ATIVAN) 0.5 MG tablet Take 0.5 mg by mouth as needed 2 Active NURTEC 75 MG tablet Take 75 mg by mouth as needed One tablet daily, every 2 to 3 days 2 Active traMADol (ULTRAM) 50 MG tablet Take 1 (one) tablet by mouth every 6 hours as needed 2 Active venlafaxine XR 24hr (EFFEXOR XR) 150 MG capsule Take 1 (one) capsule by mouth once daily 1 Active OCTREOTIDE ACETATE IJ 1 Dose by Injection route every 30 days Active ondansetron (ZOFRAN) 4 MG tablet Take 1 (one) tablet by mouth every 6 hours as needed for Nausea/Vomiting 30 tablet 2 Active Additional Information Patient not taking.Reported on 01/15/2022 LORazepam ER (Loreev XR) 1 MG CS24 Take 1 mg by mouth once daily 2 Active QUEtiapine (SEROquel) 100 MG tablet Take 1 (one) tablet by mouth at bedtime Active prazosin (Minipress) 1 MG capsule Take 1 (one) capsule by mouth at bedtime Active traZODone (Desyrel) 25 mg TABS Take 1 (one) Half Tablet by mouth at bedtime Active pregabalin (Lyrica) 75 MG capsule Take 1 (one) capsule by mouth 2 times daily Active rOPINIRole (Requip) 1 MG tablet Take 0.5 (one-half) tablet by mouth at bedtime 3 Active Social History Tobacco Use Types Packs/Day Years Used Date Smoking Tobacco: Former Cigarettes Q uit: 12/22/2007 Smokeless Tobacco: Never Tobacco Cessation:Counseling Given: Not Answered Alcohol Use Standard Drinks/Week Comments Not Currently 0 (1 standard drink = 0.6 oz pur e alcohol) h/o alcoholism -- quit 2014 AUDIT-C Answer Date Recorded Q1: How often do you have a drink containing alc ohol? Never 10/15/2021 Average Number of Drinks Not on file 022 Q3: How often do you have si x or more drinks on one occasion? Never 10/15/2021 Sex and Gender Information Value Date Recorded Sex Assigned at Not on file Legal Sex Male 4:24 AM MACHINE CLERICAL VERIFIER Gender Identity Not on file Sexual Orientation Not on file Last Filed Vital Signs Vital Sign Reading Time Taken Comments Blood Pressure 134/79 04/23/2022 1:34 PM MACHINE CLERICAL VERIFIER Pulse 62 04/23/2022 1:34 PM MACHINE CLERICAL VERIFIER Temperature 36.4 C (97.5 F) 04/23/2022 1:34 PM MACHINE CLERICAL VERIFIER Respiratory Rate 18 10/15/2021 6:45 PM CDT Oxygen Saturation 100% 04/23/2022 1:34 PM MACHINE CLERICAL VERIFIER Inhaled Oxygen Concentration - - Weight 94.3 kg (208 lb) 04/23/2022 1:34 PM MACHINE CLERICAL VERIFIER Height 182.9 cm (6') 10/15/2021 7:20 AM CDT Body Mass Index 28.21 10/15/2021 7:20 AM CDT Plan of Treatment Health Maintenance Due Date Last Done Comments COLOGUARD (AGES 45-75) - COLON CA SCREENING 1966 COLON MONITORING 1966 COLONOSCOPY - COLON CA SCREENING 1966 CT COLONOGRAPHY - COLON CA SCREENING 1966 Colorectal Cancer Screening 1966 FIT - COLON CA SCREENING 1966 FLEX SIG - COLON CA SCREENING 1966 LIPID TESTING 1966 HIV SCREENING 1981 HEPATITIS C SCREENING 06/11/1984 DTAP/TDAP/TD VACCINES (1 - Tdap) 1985 HEPATITIS B VACCINE (1 of 3 - 19+ 3-dose series) 1985 PNEUMOCOCCAL VACCINE 50+ (1 of 1 - PCV) 2016 ZOSTER VACCINE (1 of 2) 2016 COVID-19 VACCINE (1 - season) 2023 DEPRESSION SCREENING 03/23/2024 MEDICARE AWV CALENDAR YEAR 2024 INFLUENZA VACCINE (Season Ended) 2024 05/28/2021, 01/09/2020, 01/03/2020, Additional history exists SCREENING FOR DIABETES 04/23/2025 04/23/2022, 2021 HIB VACCINE Aged Out No longer eligi ble based on patient's age to complete this topic HPV VACCINE Aged Out No longer eligi ble based on patient's age to complete this topic MENINGOCOCCAL (Group B) VACCINE SHARED DECISION-MAKING Aged Out No longer eligible based on patient's age to complete this topic MENINGOCOCCAL GROUPS A/C/Y/W VACCINE Aged Out No longer eligible based on patient's age to complete this topic Procedures Procedure Name Priority Date/Time Associated Diagnosis Comments COMPREHENSIVE METABOLIC PANEL Routine 04/23/2022 11:02 AM MACHINE CLERICAL VERIFIER Neuroendocrine carcinoma metastatic to liver from Last 3 Months or Most Recently Relevant to Health Maintenance Results * (ABNORMAL) COMPREHENSIVE METABOLIC PANEL (04/23/2022 11:02 AM [facility]) BUN 14 7 - 26 mg/dL 04/23/2022 11:56 AM [facility] Creatinine 0.81 0.71 - 1.16 mg/dL 04/23/2022 11:56 AM [facility] Sodium 136 136 - 145 mmol/L 04/23/2022 11:56 AM [facility] Potassium 3.9 3.5 - 4.5 mmol/L 04/23/2022 11:56 AM [facility] Chloride 102 98 - 107 mmol/L 04/23/2022 11:56 AM [facility] CO2 23 22 - 29 mmol/L 04/23/2022 11:56 AM [facility] Glucose 117(H) 70 - 115 mg/dL 04/23/2022 11:56 AM [facility] Calcium 9.1 8.4 - 10.2 mg/dL 04/23/2022 11:56 AM [facility] Protein Total 7.0 6.0 - 8.3 g/dL 04/23/2022 11:56 AM [facility] Albumin 3.8 3.4 - 5.0 g/dL 04/23/2022 11:56 AM [facility] Bilirubin Total 0.4 0.2 - 1.2 mg/dL 04/23/2022 11:56 AM [facility] Alkaline Phosphatase 112 40 - 150 U/L 04/23/2022 11:56 AM [facility] ALT 62(H) 5 - 55 U/L 04/23/2022 11:56 AM [facility] AST 31 5 - 34 U/L 04/23/2022 11:56 AM [facility] Anion Gap 15 8 - 18 04/23/2022 11:56 AM [facility] BUN/Creatinine Ratio 17 7 - 23 04/23/2022 11:56 AM [facility] Osmolality Calculated 284 270 - 300 mOsm/kg 04/23/2022 11:56 AM [facility] Albumin/Globulin Ratio 1.2 1.1 - 2.3 04/23/2022 11:56 AM MACHINE CLERICAL VERIFIER [facility] eGFR by CKD-EPI >90 >=90 mL/min/1.7 3 m2 04/23/2022 11:56 AM [facility] Blood BLOOD SPECIMEN / Unknown Lab Venipuncture / Unknown 04/23/2022 11:02 AM MACHINE CLERICAL VERIFIER 04/23/2022 11:31 AM MACHINE CLERICAL VERIFIER Blair Le MD LAB - CHEMISTRY ORDERABLES Final Result [facility] [address] [place] [address], [facility] [phone] from Last 3 Months or Most Recently Relevant to Health Maintenance Insurance MEDICAID - OUT OF STATE MEDICAID - [place] UHC MANAGED MEDICARE ADV Care Teams Assembler Flexible Leads Relationship Specialty Start Date End Date Kevin Meyer PA [address] [place] [address] PCP - General 06/28/21
--- OUTSIDE RECORDS SUMMARY | 2024-07-04 09:45 | XMS_ITS | Clinical Summary ---
Author Organization [facility] naima [facility] Address [address] [place] [address] Care Team Providers Care Physical Medicine Teacher Name Role Phone Kevin Meyer Primary Care Provider [phone] Allergies Active Allergy Reactions Criticality Noted Date Comments Bee Venom Protein (Honey Bee) Anaphylaxis High 06/22 Venom-Honey Bee Anaphylaxis High 05/09/2015 Medications levothyroxine 75 mcg tablet Take 75 mcg by mouth daily. Active EPINEPHrine (EPIPEN) 0.3 mg/0.3 mL Auto-Injector INJECT 0.3 MILLILITER (0.3 MG) BY INTRAMUSCULAR ROUTE ONCE NEEDED FOR ANAPHYLAXIS 2 Active rimegepant (Nurtec ODT) 75 mg Tablet, Rapid Dissolve Take 75 mg by mouth. 2 Active LORazepam (Loreev XR) 1 mg Capsule, Sust. Release 24HR Loreev XR 1 mg capsule,extended release 2 Active venlafaxine (EFFEXOR XR) 150 mg Extended Release 24 hour capsule Take 150 mg by mouth daily. 1 Active diazePAM (VALIUM) 2 mg tablet Take 1 mg by mouth 1 time daily as needed. 3 Active OLANZapine (ZyPREXA) 2.5 mg tablet 4 Active Vraylar 1.5 mg Capsule capsule Take 1.5 mg by mouth daily. 4 Active naloxone (NARCAN) 4 mg/spray Jerome, Non-Aerosol EMERGENCY USE ONLY: Administer 1 spray (4 mg) in one nostril one time. May repeat in alternating nostrils every 2-3 min until responsive or EMS arrives. 2 Each 3 4 Active modafiniL (PROVIGIL) 100 mg Tablet Take 100 mg by mouth daily. 4 Active potassium chloride (KLOR-CON M20) 20 mEq Extended Release tablet TAKE 1 TABLET BY MOUTH DAILY. 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 Max Daily Amount: 20 mg 90 Tablet 5 Active Active Problems Problem Noted Date Diagnosed Date Malignant carcinoid tumor 07/01/2021 Overview (07/10/2021): 2014 - Had resection of a large carcinoid tumor of ascending colon with lymph node involvement and end-to-end anastomosis. He was not given any adjuvant treatment. 06/2021 - Metastatic low-grade neuroendocrine tumor status post ultrasound-guided liver biopsy done on June 26, 2021 that showed 1.9 cm mass in the right hepatic lobe. 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 I explained that he will need PET neuroendocrine tumor scan to assess the true extent of disease spread. Should he have limited disease only, he may be a candidate for cryoablation or radiofrequency ablation. If he has significant disease burden, he will be a candidate for PRRT therapy, but unfortunately it is not offered at [facility] and he will have to go to [facility] cancer perrin. He thinks that his insurance may not be accepted at [facility] but we will try and get an appointment there. He has no signs or symptoms of carcinoid syndrome at this time. Once the liver directed therapy is completed, he may be a candidate for Sandostatin injections monthly which can be done locally through Dr. Serrano's office. I did not give him a follow-up appointment as he will follow-up with Dr. Serrano. Reassured him that with minimal tumor burden, his overall prognosis is decent. They both verbalized understanding of today's discussion, were satisfied with the office visit, and had no further questions. 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) 06/21/2024 Orders Only [facility] - [place] [address] [place] [id number] Jorden Serrano MD 06/20/2024 Orders Only [facility] - [place] [address] [place] [id number] Jorden Serrano MD Benign hypertension; 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) 06/08/2024 External Device Data STL ABSTRACTION Provider, Abstract 06/06/2024 Orders Only [facility] - [place] [address] [place] [address] Jorden Serrano MD Benign hypertension; 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) 06/03/2024 Refill [facility] - [place] [address] [place] [id number] Jorden Serrano MD 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) 05/31/2024 External Device Data STL ABSTRACTION Provider, Abstract 05/31/2024 External Device Data STL ABSTRACTION Provider, Abstract 05/28/2024 External Device Data STL ABSTRACTION Provider, Abstract 05/27/2024 External Device Data STL ABSTRACTION Provider, Abstract 05/23/2024 Orders Only [facility] [place] [address] [place] [id number] Jorden Serrano MD Benign hypertension; 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) 05/17/2024 External Device Data STL ABSTRACTION Provider, Abstract 05/09/2024 Refill [facility] [address] [place] [phone] Jorden Serrano MD 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) 05/09/2024 Orders Only [facility] [address] [place] [address] Jorden Serrano MD Benign hypertension; 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) 05/03/2024 External Device Data STL ABSTRACTION Provider, Abstract 04/25/2024 Orders Only [facility] [address] [place] [id number] Jorden Serrano MD Benign hypertension; 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) 04/11/2024 Orders Only [facility] [place] [address] [place] [phone] Jorden Serrano MD Benign hypertension; 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) 04/07/2024 Refill [facility] [address] [place] [id number] Jorden Serrano MD 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) from Last 3 Months Family History Medical History Relation Name Comments No Known Problems Other Relation Name Status Comments Other Social History Tobacco Use Types Packs/Day Years Used Date Smoking Tobacco: Former Cigarettes 0.5 20 0 05/12/1987 - 05/12/2007 Smokeless Tobacco: Never Tobacco Cessation:Counseling Given: Not [...] Sign Reading Time Taken Comments Blood Pressure 117/63 03/08/2024 9:09 AM CLINICAL OPERATIONS LEADER Pulse 81 03/08/2024 9:09 AM CLINICAL OPERATIONS LEADER Temperature 36.6 C (97.8 F) 03/08/2024 9:09 AM CLINICAL OPERATIONS LEADER Respiratory Rate 16 03/08/2024 9:09 AM CLINICAL OPERATIONS LEADER Oxygen Saturation 96% 03/08/2024 9:09 AM CLINICAL OPERATIONS LEADER Inhaled Oxygen Concentration - - Weight 95.3 kg (210 lb) 03/08/2024 9:09 AM CLINICAL OPERATIONS LEADER Height 182.9 cm (6') 12/05/2021 8:44 AM CDT Body Mass Index 28.48 12/05/2021 8:44 AM CDT Plan of Treatment Upcoming Encounters Date Type Department Care Team (Late st Contact Info) Description 07/05/2024 2:15 PM CDT Office Visit [facility] [address] [facility] [address] [place] [address] Jorden Serrano MD [address] [facility] [address] [place] [address] Health Maintenance Due Date Last Done Comments Pre-Diabetes and Diabetes Screening 1965 HEPATITIS B VACCINES (1 of 3 - 19+ 3-dose series) 1985 INFLUENZA VACCINE (#1) 2023 2, 05/28/2021, 05/28/2021, Additional history exists DTAP/TDAP/TD VACCINES (3 - T d or Tdap) 05/12/2032 05/12/2022, 04/29/2013 ZOSTER VACCINE Completed 10/30/2020, 08/28/2020 COLORECTAL SCREENING Discontinued 07/02/2021, 11/18/2017, 01/04/2016, Additional history exists Colorectal Cancer Screening Discontinued Abdominal Aortic Aneurysm (A AA) Screening Completed 10/06/2022, 05/30/2022, 10/24/2021 FIT-DNA Q 3 years Discontinued FIT/FOBT Q 1 year Discontinued Flex Sig/CT Colonography Q 5 years Discontinued Procedures Procedure Name Priority Date/Time Associated Diagnosis Comments COMPREHENSIVE METABOLIC PANEL Routine 06/17/2024 4:21 PM CDT CBC MIXED CELL DIFFERENTIAL Routine 06/17/2024 7:40 AM CDT HX COLONOSCOPY Routine 07/02/2021 from Last 3 Months or Most Recently Relevant to Health Maintenance Results * COMPREHENSIVE METABOLIC PANEL (06/17/2024 4:21 PM CDT) Blood Jorden Serrano MD CHEMISTRY ORDERABLES Final Resu lt * CBC MIXED CELL DIFFERENTIAL (06/17/2024 7:40 AM CDT) Blood Jorden Serrano MD HEMATOLOGY ORDERABLES Final Res ult * HX COLONOSCOPY (07/02/2021) us Abstract Provider GENERIC SURGICAL HISTORY Final Result from Last 3 Months or Most Recently Relevant to Health Maintenance Insurance MEDICAID [place] [address] [id number] Care Teams Physical Medicine Teacher Relationship Specialty Start Date End Date Kevin Meyer PA [address] [place] [address] PCP - General Physician Rn Peritoneal Dialysis 05/31/21
--- OUTSIDE RECORDS SUMMARY | 2024-07-04 09:45 | XMS_ITS | Clinical Summary ---
Author Organization 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 traMADol HCl 50 MG Oral Tablet 05/01/2022 Provider: Diagnosis: 1 tab po q 6 hrs prn Last Documented On 05/01/2022 2:01PM By Freida Britt RN ; [facility] Effexor XR 150 MG Oral Capsule Extended Release 24 Alexandra r 05/01/2022 Provider: Diagnosis: 1 daily Last Documented On 05/01/2022 2:02PM By Freida Britt RN ; [facility] rOPINIRole HCl 1 MG Oral Tablet 05/01/2022 Provider: Diagnosis: TID prn Last Documented On 05/01/2022 2:02PM By Freida Britt RN ; [facility] Prazosin HCl 1 MG Oral Capsule 05/01/2022 Provider: Diagnosis: Last Documented On 05/01/2022 1:59PM By Freida Britt RN ; [facility] QUEtiapine Fumarate 100 MG Oral Tablet 05/01/2022 Pr ovider: Diagnosis: Last Documented On 05/01/2022 1:58PM By Freida Britt RN ; [facility] Cyclobenzaprine HCl 10 MG Oral Tablet 05/01/2022 Pro vider: Diagnosis: 1 tab po TID prn for muscle spasms Last Documented On 05/01/2022 1:58PM By Freida Britt RN ; [facility] Loreev XR 1 MG Oral Capsule ER 24 Hour Sprinkle 2022 Provider: Diagnosis: Last Documented On 05/01/2022 1:35PM By Ar COX ; [facility] Venlafaxine HCl ER 150 MG Or al Capsule Extended Release 24 Hour 02/28/2021 Provider: Diagnosis: Last Documented On 02/28/2021 9:15AM By Ar COX ; [facility] Levothyroxine Sodium 75 MCG Oral Capsule 02/28/2021 Provider: Diagnosis: Last Documented On 02/28/2021 9:14AM By Ar COX ; [facility] Past Medications on file Cyclobenzaprine HCl 10 MG Oral Tablet 06/20/2022 - 06/25/2022 Provider: NALDO BETH MD Diagnosis: Dorsalgia, unspecified 1 tab po TID prn for muscle spasms Last Documented On 06/20/2022 12:32PM By Naldo Beth MD ; [facility] Medications Administered Includes: Administered Medications from this encounter No Administered Medications Recorded Results Includes: Results discussed during this encounter No Results Recorded For Specified Dates History of Present Illness Includes: History of Present Illness from this encounter HPI Patient presented today to the waiting room with frequent dry heaving and retching although afebrile. He claims that this is related to his diffuse all over pain. Given his demeanor and given his obvious extremities, there is little I can offer him today to treat his underlying symptoms. He is not a candidate for opioids in my opinion given history of significant psychological comorbidities and elevated risk of abuse/misuse. However, he is getting significant number of opioids through his oncologist as well as multiple other sources including upwards of 145 tablets in the last 30 days from multiple sources (he is getting this refilled several times through on orthopedist in [place], [place] as well as an oncologist in [place], [place]) and has refilled at multiple pharmacies despite being under in agreement with us advising against both. Of note, his last refill was just 2 days ago for total 30 tablets from his oncologist. Certainly, he states that these medications do not help him at all even though he continues to seek them out and refill them taking at least 4-5 tabs peer day. As a result, my concern this is either medication seeking secondary to uncontrolled pain related to his cancer diagnosis or an active opioid toxicity (although there is no evidence of respiratory depression or sedation) versus an active opioid abuse cycle with doctor shopping. Either way, I recommended the patient be seen in the emergency department to rule out any acute viral or other infectious pathology vs opioid toxicity or a worsening of his underlying liver diagnosis. Recommend the patient follow-up with his oncologist to further evaluate his liver tumor diagnosis on his overall symptoms including severe nausea and vomiting and uncontrolled diffuse pain. Recommend continued evaluation through his psychiatrist for his psychological comorbidities as well as his elevated risk of opioid abuse or addiction. I recommend against focal interventional therapies until the above issues have stabilized. Therefore, I refer the patient back to his oncologist and will defer to this physician regarding the continuation of his opioids. I will subsequently discharge the patient for my clinic at this time. Of note, despite complaints of severe diffuse head to toe pain, he indicates today that the lumbar medial branch blocks are provided him several weeks ago, from which he is following up, helped him tremendously. Certainly his current presentation completely belies any evidence of progressive improvement and I do not believe that continuing to address focal low back pain is going to have a significant impact on his overall level of function, pain control or result in reduced opioid consumption. Given his high risk status, the violation of his opioid agreement, his continued access to large amounts of opioid analgesics from multiple physicians and filled at multiple pharmacies despite my recommendations against the the above has me concerned about an ongoing prescription opioid abuse cycle. Given his display today and continued pressure for any kind of pain control ' with pain behaviors and subjective symptoms far out of proportion to any underlying findings on imaging or exam, I am highly concerned about this patient's ongoing opioid use and continue to recommend against treatment of his chronic pain with these medications. However, he has an apparent liver diagnosis as well as an orthopedic diagnosis all which other physicians think warrant continued opioid use. As a result, I will defer to them as I have a different opinion. Regardless, it is very little else I can offer him to our office until his other issues have become stabilized. As above, will discharge the patient at this time defer him to his oncologist on orthopedist for additional evaluation treatment. Social History Description Last Updated Tobacco non-user 02/28/2021 Last Documented On 3 2:32PM ; [facility] No recent change in sleep 02/28/2021 Last Documented On 3 2:32PM ; [facility] [PHQ-2] Patient Health Questionnaire 2 i tem total score: 8 (Scale: 0-6) 02/28/2021 Last Documented On 3 2:32PM ; [facility] Difficulty walking 02/28/2021 Last Documented On 3 2:32PM ; [facility] No consumption of alcohol 02/28/2021 Last Documented On 3 2:32PM ; [facility] Not using drugs 02/28/2021 Last Documented On 3 2:32PM ; [facility] Smoking Status Unknown Procedures and Surgical History Surgical History Last Updated No Pacemaker 02/28/2021 Last Documented On 3 2:32PM ; [facility] Medical History Includes: Medical History addressed during this encounter Description Last Updated Blood pressure was high 02/28/2021 Last Documented On 3 2:32PM ; [facility] Hypertension 02/28/2021 Last Documented On 3 2:32PM ; [facility] No exposure to a contagious disease 11/2020 Last Documented On 3 2:32PM ; [facility] No previous psychiatric treatment 2020 Last Documented On 3 2:32PM ; [facility] Not taking OTC medications 02/28/2021 Last Documented On 3 2:32PM ; [facility] Taking medication for high blood pressur e 02/28/2021 Last Documented On 3 2:32PM ; 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 Other method: 02/28/2021 Last Documented On 3 2:32PM ; [facility] Physical therapy 02/28/2021 Last Documented On 3 2:32PM ; [facility] Please list all illnesses/co nditions you have been diagnosed with: Bi polar manic depressed colon cancer 02/28/2021 Last Documented On 3 2:32PM ; [facility] Please list all surgeries: Dec colos gabby Apr 2015 ankle Jan 2021 ankle 02/28/2021 Last Documented On 3 2:32PM ; [facility] Surgery 02/28/2021 Last Documented On 3 2:32PM ; [facility] Uses a cane for support 02/28/2021 Last Documented On 3 2:32PM ; [facility] Uses a Knee Brace 02/28/2021 Last Documented On 3 2:32PM ; [facility] Family History Includes: Family History addressed during this encounter Description Last Updated Fraternal history of Arthritis 1 Last Documented On 3 2:32PM ; [facility] Maternal history of family history of is chemic heart disease 02/28/2021 Last Documented On 3 2:32PM ; [facility] Reported family history of seizures 11/2020 Last Documented On 3 2:32PM ; [facility] Review of Systems Includes: [...] Active Last Documented On 07/02/2022 3:31PM ; [facility] Note: Blurred vision BEES Allergy 05/01/2022 Active Last Documented On 3 3:31PM ; [facility] Bactrim Allergy Skin Rashes / Eruption of skin 3 Active Last Documented On 3 3:31PM ; [facility] Encounters Encounter Provider Location Date Check-In Time Check-Out Time Diagnosis CANCELLED NALDO BETH MD [facility] 08/13/2022 2:15PM 11:59PM Insurance Includes: Active Insurance Policies Plan Name Member ID Group # Subscriber Relationship Effect vini Dates 1 - [facility] [id number] AILEEN HURD Self 2 - [employer] [place] MED[employer]ARE [employer]OND [id number] AILEEN HURD Self Clinical Notes Includes: Clinical Notes from this encounter * Progress note Date Encounter Last Documented by 08/13/2022 CANCELLED Last documented on 11/07/2022; 2:40 PM, NALDO BETH MD; [facility] History of Present Illness Patient presented today to the waiting room with frequent dry heaving and retching although afebrile. He claims that this is related to his diffuse all over pain. Given his demeanor and given his obvious extremities, there is little I can offer him today to treat his underlying symptoms. He is not a candidate for opioids in my opinion given history of significant psychological comorbidities and elevated risk of abuse/misuse. However, he is getting significant number of opioids through his oncologist as well as multiple other sources including upwards of 145 tablets in the last 30 days from multiple sources (he is getting this refilled several times through on orthopedist in [place], [place] as well as an oncologist in [place], [place]) and has refilled at multiple pharmacies despite being under in agreement with us advising against both. Of note, his last refill was just 2 days ago for total 30 tablets from his oncologist. Certainly, he states that these medications do not help him at all even though he continues to seek them out and refill them taking at least 4-5 tabs peer day. As a result, my concern this is either medication seeking secondary to uncontrolled pain related to his cancer diagnosis or an active opioid toxicity (although there is no evidence of respiratory depression or sedation) versus an active opioid abuse cycle with doctor shopping. Either way, I recommended the patient be seen in the emergency department to rule out any acute viral or other infectious pathology vs opioid toxicity or a worsening of his underlying liver diagnosis. Recommend the patient follow-up with his oncologist to further evaluate his liver tumor diagnosis on his overall symptoms including severe nausea and vomiting and uncontrolled diffuse pain. Recommend continued evaluation through his psychiatrist for his psychological comorbidities as well as his elevated risk of opioid abuse or addiction. I recommend against focal interventional therapies until the above issues have stabilized. Therefore, I refer the patient back to his oncologist and will defer to this physician regarding the continuation of his opioids. I will subsequently discharge the patient for my clinic at this time. Of note, despite complaints of severe diffuse head to toe pain, he indicates today that the lumbar medial branch blocks are provided him several weeks ago, from which he is following up, helped him tremendously. Certainly his current presentation completely belies any evidence of progressive improvement and I do not believe that continuing to address focal low back pain is going to have a significant impact on his overall level of function, pain control or result in reduced opioid consumption. Given his high risk status, the violation of his opioid agreement, his continued access to large amounts of opioid analgesics from multiple physicians and filled at multiple pharmacies despite my recommendations against the the above has me concerned about an ongoing prescription opioid abuse cycle. Given his display today and continued pressure for any kind of pain control ' with pain behaviors and subjective symptoms far out of proportion to any underlying findings on imaging or exam, I am highly concerned about this patient's ongoing opioid use and continue to recommend against treatment of his chronic pain with these medications. However, he has an apparent liver diagnosis as well as an orthopedic diagnosis all which other physicians think warrant continued opioid use. As a result, I will defer to them as I have a different opinion. Regardless, it is very little else I can offer him to our office until his other issues have become stabilized. As above, will discharge the patient at this time defer him to his oncologist on orthopedist for additional evaluation treatment. 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 - Assess Tobacco Use satisfied 08/13/2022.
--- OUTSIDE RECORDS SUMMARY | 2024-07-04 09:46 | XMS_ITS | Clinical Summary ---
Author Organization [facility] Address [address] [place] [address] Care Team Providers Care Manager Plant Name Role Phone Kevin Meyer Primary Care Provider [phone] Kevin Meyer Unavailable [phone] Benja Esteban MD Unavailable [phone] Allergies Active Allergy Reactions Criticality Noted Date Comments Acetaminophen Other (See comments) High 07/02/2022 Patient requires vicoprofen due to history of liver cancer Patient requires vicoprofen due to history of liver cancer Gabapentin Vision changes Medium Blurred Ibuprofen Other (See comments) Low 11/18/2023 Doesn't remember what happens when he takes it Sulfamethoxazole-Trimet hoprim Hives,Rash Medium 06/23/2022 Venom-Honey Bee Anaphylaxis High Medications EPINEPHrine (EPIPEN 2-ROSENDO) 0.3 mg/0.3 mL auto-injection syringeIndicat ions:Anaphylax is EpiPen 2-Rosendo 0.3 mg/0.3 mL injection, auto-injector INJECT 0.3 MILLILITER (0.3 MG) BY INTRAMUSCULAR ROUTE ONCE NEEDED FOR ANAPHYLAXIS Active levothyroxine (SYNTHROID, LEVOTHROID) 75 mcg tabletIndicati ons:hypothyroi dism Take 1 tablet (75 mcg total) 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 before breakfast Active venlafaxine XR (EFFEXOR-XR) 150 mg 24 hr capsuleIndicat ions:major depressive disorder Take 1 capsule (150 mg total) by mouth daily with breakfast 30 capsule 11 1 Active oxyCODONE (ROXICODONE) 5 mg immediate release tabletIndicati ons:Pain Take 1 tablet (5 mg total) by mouth every 6 (six) hours as needed for pain 30 tablet 1 Active hydroCHLOROthi azide (HYDRODIURIL) 25 mg tablet Take by mouth daily 4 Active ondansetron (ZOFRAN) 4 mg tablet Take 1 tablet (4 mg total) by mouth every 8 (eight) hours as needed [address] (PROTONIX) 40 mg EC tablet Take 1 tablet (40 mg total) by mouth daily 4 Active prazosin (MINIPRESS) 2 mg capsule Take 1 capsule (2 mg total) by mouth nightly 4 Active pregabalin (LYRICA) 75 mg capsule Take 1 capsule (75 mg total) by mouth 2 (two) times a day 4 Active calcium carbonate-joao min D3 1,500 mg (600mg elemental) -800 unit per tablet Take 600 mg by mouth 2 (two) times a day 4 Active cyanocobalamin (Vitamin B-12) 1,000 mcg tablet Take 1 tablet (1,000 mcg total) by mouth daily 4 Active fluticasone propionate (FLONASE) 50 mcg/actuation nasal spray fluticasone propionate 50 mcg/actuation nasal spray,suspension SPRAY 1 SPRAY BY INTRANASAL ROUTE EVERY DAY Active modafiniL (PROVIGIL) 100 mg tablet Take 1 tablet (100 mg total) by mouth daily 4 Active octreotide (SandoSTATIN) 100 mcg/mL injection Infuse 1 mL (100 mcg total) into a venous catheter every 30 (thirty) days Active potassium chloride ER 20 mEq CR tablet Take 1 tablet (20 mEq total) by mouth daily 4 Active amLODIPine (NORVASC) 10 mg tablet 4 Active Loreev XR 1 mg capsule,extend ed release 24hr daily 4 Active OLANZapine (ZyPREXA) 5 mg tablet Take 1 tablet (5 mg total) by mouth nightly 4 Active cariprazine (Vraylar) 1.5 mg capsule capsule Take 1 capsule (1.5 mg total) by mouth daily Active diazePAM (VALIUM) 2 mg tablet Take 0.5 tablets (1 mg total) by mouth nightly as needed for anxiety Active oxyCODONE (ROXICODONE) 5 mg immediate release tabletIndicati ons:Pain Take 1 tablet (5 mg total) by mouth every 8 (eight) hours as needed for pain 20 tablet 4 Active Active Problems Problem Noted Date Diagnosed Date Knee pain 02/13/2021 Malignant neoplasm of colon 02/13/2021 Essential hypertension 01/16/2021 Cervical radiculopathy 01/15/2021 Personal history of other ma lignant neoplasm of large intestine 12/17/2020 Overview (12/17/2020): Added automatically from request for surgery [id number] 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/13/2020 Overview (12/13/2020): Added automatically from request for surgery [id number] Malignant carcinoid tumor of the ileum Stimulant use disorder 05/31/2020 Severe alcohol use disorder 05/31/2020 PTSD (post-traumatic stress disorder) 05/31/2020 Chronic bilateral low back pain without sciatica 04/07/2020 Assessment & Plan (05/04/2020 12:54 PM SPORTS PHYSIOTHERAPIST): - flexeril 10mg TID PRN - [place] 10mg q4 PRN - lidocaine patch daily - avoid IV ketorelac and NSAIDs with starting lithium - heating packs Assessment & Plan (05/03/2020 9:56 AM SPORTS PHYSIOTHERAPIST): - flexeril 10mg TID PRN - [place] 10mg q4 PRN - lidocaine patch daily - avoid IV ketorelac and NSAIDs with starting lithium - heating packs Assessment & Plan (05/02/2020 11:56 AM SPORTS PHYSIOTHERAPIST): - flexeril 10mg TID PRN - [place] 10mg q4 PRN - lidocaine patch daily - avoid IV ketorelac and NSAIDs with starting lithium - heating packs Assessment & Plan (05/01/2020 10:58 AM SPORTS PHYSIOTHERAPIST): - flexeril 10mg TID PRN - [place] 10mg q4 PRN - lidocaine patch daily - avoid IV ketorelac and NSAIDs with starting lithium - heating pads Assessment & Plan (04/30/2020 12:17 PM SPORTS PHYSIOTHERAPIST): - flexeril 10mg TID PRN - [place] 10mg q4 PRN - lidocaine patch daily - avoid IV ketorelac and NSAIDs with starting lithium - heating pads Assessment & Plan (04/28/2020 8:01 AM SPORTS PHYSIOTHERAPIST): - flexeril 10mg TID PRN - [place] 10mg q4 PRN - lidocaine patch daily - avoid IV ketorelac and NSAIDs with starting lithium - heating pads Assessment & Plan (04/27/2020 8:47 AM SPORTS PHYSIOTHERAPIST): - flexeril 10mg TID PRN - [place] 10mg q4 PRN - lidocaine patch daily - avoid IV ketorelac and NSAIDs given ADILENE - heating pads Assessment & Plan (04/26/2020 10:11 AM SPORTS PHYSIOTHERAPIST): - flexeril 10mg TID PRN - [place] 10mg q4 PRN - lidocaine patch daily - avoid IV ketorelac and NSAIDs given ADILENE - heating pads Assessment & Plan (04/25/2020 9:45 AM SPORTS PHYSIOTHERAPIST): - flexeril 10mg TID PRN - [place] 10mg q4 PRN - lidocaine patch daily - avoid IV ketorelac and NSAIDs given ADILENE - heating pads Assessment & Plan (04/24/2020 9:49 AM SPORTS PHYSIOTHERAPIST): - flexeril 10mg TID PRN - [place] 10mg q4 PRN - lidocaine patch daily - avoid IV ketorelac and NSAIDs given ADILENE - heating pads Assessment & Plan (04/23/2020 10:21 AM SPORTS PHYSIOTHERAPIST): - flexeril 10mg TID PRN - [place] 10mg q4 PRN - lidocaine patch daily - avoid IV ketorelac and NSAIDs given ADILENE - heating pads Assessment & Plan (04/21/2020 8:38 AM SPORTS PHYSIOTHERAPIST): - flexeril 10mg TID PRN - [place] 10mg q4 PRN - lidocaine patch daily - avoid IV ketorelac and NSAIDs given ADILENE - heating pads Assessment & Plan (04/20/2020 12:05 PM SPORTS PHYSIOTHERAPIST): - flexeril 10mg TID PRN - [place] 10mg q4 PRN - lidocaine patch daily - avoid IV ketorelac and NSAIDs given ADILENE - heating pads Assessment & Plan (04/19/2020 9:46 AM SPORTS PHYSIOTHERAPIST): - flexeril 10mg TID PRN - NOR[place] 10mg q4 PRN - lidocaine patch daily - avoid IV ketorelac and NSAIDs given ADILENE - heating pads Assessment & Plan (04/18/2020 10:09 AM SPORTS PHYSIOTHERAPIST): - flexeril 10mg TID PRN - [place] 10mg q4 PRN - lidocaine patch daily - avoid IV ketorelac and NSAIDs given ADILENE - heating pads Assessment & Plan (04/17/2020 9:31 AM SPORTS PHYSIOTHERAPIST): - flexeril 10mg TID PRN - [place] 10mg q4 PRN - lidocaine patch daily - avoid IV ketorelac and NSAIDs given ADILENE - heating pads Assessment & Plan (04/16/2020 11:51 AM SPORTS PHYSIOTHERAPIST): - flexeril 10mg TID PRN - [place] 10mg q4 PRN - lidocaine patch daily - avoid IV ketorelac and NSAIDs given ADILENE - heating pads Assessment & Plan (04/14/2020 9:57 AM SPORTS PHYSIOTHERAPIST): - flexeril 10mg TID PRN - NORCO 10mg q4 PRN - lidocaine patch daily - avoid IV ketorelac and NSAIDs given ADILENE - heating pads Assessment & Plan (04/10/2020 10:04 PM SPORTS PHYSIOTHERAPIST): - flexeril 10mg TID PRN - [place] 10mg q4 PRN - lidocaine patch daily - avoid IV ketorelac and NSAIDs given ADILENE - heating pads Assessment & Plan (04/08/2020 3:23 PM SPORTS PHYSIOTHERAPIST): Patient endorsing exacerbation of chronic back pain and left ankle pain (had previous traumatic injury, required surgery). No other red flag symptoms/signs. Reports he has received injections in the past. No weakness on exam, just some limitations 2/2 pain. Negative passive leg raise bilaterally, just c/o tightness in back and buttock. Some lumbar and sacral tenderness with paraspinal tenderness as well. -Continue PRN norco, flexeril; IV ketorolac x 1 on 04/08 for pain, will try and limit use to avoid ADILENE -Lidocaine patch to back -PT Assessment & Plan (04/07/2020 6:23 AM SPORTS PHYSIOTHERAPIST): Patient endorsing exacerbation of chronic back pain and left ankle pain (had previous traumatic injury, required surgery). No other red flag symptoms/signs. Reports he has received injections in the past -Continue PRN norco, flexeril -Lidocaine patch to back -PT Depressive disorder 04/03/2020 Assessment & Plan (05/04/2020 12:54 PM SPORTS PHYSIOTHERAPIST): 54yo M with reported history of bipolar depression/PTSD here with recurrent depressive episode and SI. 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 FOT goal directed and logical. Olanzapine started and titrated up to 20mg nightly. Venlafaxine XR was started cross tapered with Escitalopram (discontinued 04/11) and was titrated up to 150mg daily 04/11. Current medication regimen will be continued, no active SI. Tolerating ECT without major complications, side effects of mild headache and muscle pain. On exam patient with improved mood and more bright. Plan to discharge patient 05/04. [place] augmentation started with moderate improvements seen in depressive symptoms with ECT, titrated to 300 mg BID with level 0.6. - Continue OLANZapine, 20 mg, oral, Nightly, for depression - Continue Venlafaxine XR 150 mg PO daily, for depression - Continue lithium to 300 mg BID - [place] level 0.6 on 05/03 - This is lower than typical target range, but since being used as augmentation, and being cautious with concurrent ECT, will continue lithium 300 mg BID at discharge, especially since ECT will be continued on a maintenance basis. - ECT MWF, restarted 04/13, for refractory depression - patient interested in continuing maintenance at discharge, so have messaged billing and scheduling to arrange this. Letter provided to patient stating that he needs to return weekly for procedure. - Plan for discharge home after ECT today 05/04 Assessment & Plan (05/03/2020 9:56 AM SPORTS PHYSIOTHERAPIST): 54yo M with reported history of bipolar depression/PTSD here with recurrent depressive episode and SI. 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 FOT goal directed and logical. Olanzapine started and titrated up to 20mg nightly. Venlafaxine XR was started cross tapered with Escitalopram (discontinued 04/11) and was titrated up to 150mg daily 04/11. Current medication regimen will be continued, no active SI. Tolerating ECT without major complications, side effects of mild headache and muscle pain. On exam patient with improved mood and more bright. Plan to discharge patient 05/04. [place] augmentation started with moderate improvements seen in depressive symptoms with ECT, titrated to 300 mg BID with level 0.6. - Continue OLANZapine, 20 mg, oral, Nightly, for depression - Continue Venlafaxine XR 150 mg PO daily, for depression - Continue lithium to 300 mg BID - [place] level 0.6 on 05/03 - This is lower than typical target range, but since being used as augmentation, and being cautious with concurrent ECT, will continue lithium 300 mg BID at discharge, especially since ECT will be continued on a maintenance basis. - ECT MWF, restarted 04/13, for refractory depression - patient interested in continuing maintenance at discharge, so have messaged billing and scheduling to arrange this - Plan for discharge home after ECT Thursday 05/04 with family (needs transportation arranged as he has a foster child and family cannot leave [place] without permission) Assessment & Plan (05/02/2020 11:56 AM SPORTS PHYSIOTHERAPIST): 54yo M with reported history of bipolar depression/PTSD here with recurrent depressive episode and SI. 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 On exam patient was remains restricted. FOT goal directed and logical. Olanzapine started and titrated up to 20mg nightly. Venlafaxine XR was started cross tapered with Escitalopram (discontinued 04/11) and was titrated up to 150mg daily 04/11. Current medication regimen will be continued, no active SI. Tolerating ECT without major complications, side effects of mild headache and muscle pain. Plan to discharge patient 05/04. Starting lithium augmentation with only moderate improvements seen in depressive symptoms with ECT, plan to titrate as able this week. - Continue OLANZapine, 20 mg, oral, Nightly, for depression - Continue Venlafaxine XR 150 mg PO daily, for depression - Continue lithium to 300 mg BID, lithium level tomorrow morning (cautious with lithium in combination with ECT) - ECT MWF, restarted 04/13, for refractory depression - Plan for discharge home after ECT Thursday 05/04 with family (needs transportation arranged as he has a foster child and family cannot leave [place] without permission) Assessment & Plan (05/01/2020 10:58 AM SPORTS PHYSIOTHERAPIST): 54yo M with reported history of bipolar depression/PTSD here with recurrent depressive episode and SI. 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 On exam patient was remains restricted. FOT goal directed and logical. Passive SI, though continues reporting fewer thoughts of suicide and improvements in mood. Earlier this admission had Depakote down titrated and discontinued. Olanzapine started and titrated up to 20mg nightly. Venlafaxine XR was started cross tapered with Escitalopram (discontinued 04/11) and was titrated up to 150mg daily 04/11. Current medication regimen will be continued, no active SI, has had decreased mood and affect more flat and dysthymic, ECT team increased the charge to 100% with some improvements, will continue to monitor. Tolerating ECT without major complications, side effects of mild headache and muscle pain. Plan to discharge patient 2. Starting lithium augmentation with only moderate improvements seen in depressive symptoms with ECT, plan to titrate as able this week. - Continue OLANZapine, 20 mg, oral, Nightly, for depression - Continue Venlafaxine XR 150 mg PO daily, for depression - Increase lithium to 300 mg BID - ECT MWF, restarted 04/13, for refractory depression - Plan for discharge home after ECT Thursday with family Assessment & Plan (04/30/2020 12:17 PM SPORTS PHYSIOTHERAPIST): 54yo M with reported history of bipolar depression/PTSD here with recurrent depressive episode and SI. 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 On exam patient was remains restricted. FOT goal directed and logical. Passive SI, though continues reporting fewer thoughts of suicide and improvements in mood. Earlier this admission had Depakote down titrated and discontinued. Olanzapine started and titrated up to 20mg nightly. Venlafaxine XR was started cross tapered with Escitalopram (discontinued 04/11) and was titrated up to 150mg daily 04/11. Current medication regimen will be continued, no active SI, has had decreased mood and affect more flat and dysthymic, ECT team increased the charge to 100% with some improvements, will continue to monitor. Tolerating ECT without major complications, side effects of mild headache and muscle pain. Plan to discharge patient 05/04. Starting lithium augmentation with only moderate improvements seen in depressive symptoms with ECT, plan to up titrate next week. - Continue OLANZapine, 20 mg, oral, Nightly, for depression - Continue Venlafaxine XR 150 mg PO daily, for depression - Start lithium 300mg, increase to 300 mg BID tonight - ECT MWF, restarted 04/13, for refractory depression - Plan for discharge home after ECT Thursday with family Assessment & Plan (04/28/2020 8:02 AM SPORTS PHYSIOTHERAPIST): 54yo M with reported history of bipolar depression/PTSD here with recurrent depressive episode and SI. 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 On exam patient was remains restricted. FOT goal directed and logical. Passive SI, though continues reporting fewer thoughts of suicide and improvements in mood. Earlier this admission had Depakote down titrated and discontinued. Olanzapine started and titrated up to 20mg nightly. Venlafaxine XR was started cross tapered with Escitalopram (discontinued 04/11) and was titrated up to 150mg daily 04/11. Current medication regimen will be continued, no active SI, has had decreased mood and affect more flat and dysthymic, ECT team increased the charge to 100% with some improvements, will continue to monitor. Tolerating ECT without major complications, side effects of mild headache and muscle pain. Plan to discharge patient 05/04. Starting lithium augmentation with only moderate improvements seen in depressive symptoms with ECT, plan to up titrate next week. - Continue OLANZapine, 20 mg, oral, Nightly, for depression - Continue Venlafaxine XR 150 mg PO daily, for depression - Start lithium 300mg nightly - ECT MW, restarted 04/13, for refractory depression Assessment & Plan (04/27/2020 8:47 AM SPORTS PHYSIOTHERAPIST): 54yo M with reported history of bipolar depression/PTSD here with recurrent depressive episode and SI. 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 On exam patient was remains restricted. FOT goal directed and logical. Passive SI, though continues reporting fewer thoughts of suicide and improvements in mood. Earlier this admission had Depakote down titrated and discontinued. Olanzapine started and titrated up to 20mg nightly. Venlafaxine XR was started cross tapered with Escitalopram (discontinued 04/11) and was titrated up to 150mg daily 04/11. Current medication regimen will be continued, no active SI, has had decreased mood and affect more flat and dysthymic, ECT team increased the charge to 100% with only minimal improvements, will continue to monitor. Will not be starting lithium augmentation with patient's chronic back pain and likely NSAID use in the future. Tolerating ECT without major complications, side effects of mild headache and muscle pain. Plan to discharge patient 05/04. - Continue OLANZapine, 20 mg, oral, Nightly, for depression - Continue Venlafaxine XR 150 mg PO daily, for depression - ECT MWF, restarted 04/13, for refractory depression Assessment & Plan (04/26/2020 10:11 AM SPORTS PHYSIOTHERAPIST): 54yo M with reported history of bipolar depression/PTSD here with recurrent depressive episode and SI. 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 On exam patient was restricted and flat. FOT goal directed and logical. Passive SI, though continues reporting fewer thoughts of suicide and improvements in mood. Earlier this admission had Depakote down titrated and discontinued. Olanzapine started and titrated up to 20mg nightly. Venlafaxine XR was started cross tapered with Escitalopram (discontinued 04/11) and was titrated up to 150mg daily 04/11. Current medication regimen will be continued, no active SI, has had decreased mood and affect more flat and dysthymic, ECT team increased the charge to 100% with only minimal improvements, will continue to monitor. Li augmentation has been discussed with patient, he is amenable to trying this if indicated later this week if further stabilization of mood and effect isn't seen. Tolerating ECT without major complications, side effects of mild headache and muscle pain. - Continue OLANZapine, 20 mg, oral, Nightly, for depression - Continue Venlafaxine XR 150 mg PO daily, for depression - ECT MWF, restarted 04/13, for refractory depression Assessment & Plan (04/25/2020 9:47 AM SPORTS PHYSIOTHERAPIST): 54yo M with reported history of bipolar depression/PTSD here with recurrent depressive episode and SI. 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 On exam patient was restricted and flat. FOT goal directed and logical. Passive SI, though continues reporting fewer thoughts of suicide and improvements in mood. Earlier this admission had Depakote down titrated and discontinued. Olanzapine started and titrated up to 20mg nightly. Venlafaxine XR was started cross tapered with Escitalopram (discontinued 04/11) and was titrated up to 150mg daily 04/11. Current medication regimen will be continued, no active SI, has had decreased mood and affect more flat and dysthymic, ECT team increased the charge to 100% with only minimal improvements, will continue to monitor. Li augmentation has been discussed with patient, he is amenable to trying this if indicated later this week if further stabilization of mood and effect isn't seen. Tolerating ECT without major complications, side effects of mild headache and muscle pain. - Continue OLANZapine, 20 mg, oral, Nightly, for depression - Continue Venlafaxine XR 150 mg PO daily, for depression - ECT MWF, restarted 04/13, for refractory depression Assessment & Plan (04/24/2020 9:48 AM SPORTS PHYSIOTHERAPIST): 54yo M with reported history of bipolar depression/PTSD here with recurrent depressive episode and SI. 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 On exam patient was restricted, not as flat as previous days. FOT goal directed and logical. Passive SI, though reporting fewer thoughts of suicide and improvements in mood. Earlier this admission had Depakote down titrated and discontinued. Olanzapine started and titrated up to 20mg nightly. Venlafaxine XR was started cross tapered with Escitalopram (discontinued 04/11) and was titrated up to 150mg daily 04/11. Current medication regimen will be continued, no active SI, has had decreased mood and affect more flat and dysthymic, ECT team increased the charge to 100% with only minimal improvements, will continue to monitor. Consider medication changes and addition of lithium on 04/23 if patient does not improve with further ECT. Li augmentation has been discussed with patient, he is amenable to trying this if indicated later this week. Will plan on starting lithium at the end of this week and up titrating medication before he is discharged. Tolerating ECT without major complications, side effects of mild headache and muscle pain. - Continue OLANZapine, 20 mg, oral, Nightly, for depression - Continue Venlafaxine XR 150 mg PO daily, for depression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 hyperthyroidism for several years. He is currently treated on levothyroxine 75 mcg daily. - Repeat TFT tests in 6 weeks - continue levothyroxine 75 mcg daily Assessment & Plan (04/18/2020 10:09 AM SPORTS PHYSIOTHERAPIST): Patient carries a diagnosis of hyperthyroidism for several years. He is currently treated on levothyroxine 75 mcg daily. - Repeat TFT tests in 6 weeks - continue levothyroxine 75 mcg daily Assessment & Plan (04/17/2020 9:31 AM SPORTS PHYSIOTHERAPIST): Patient carries a diagnosis of hyperthyroidism for several years. He is currently treated on levothyroxine 75 mcg daily. - Repeat TFT tests in 6 weeks - continue levothyroxine 75 mcg daily Assessment & Plan (04/16/2020 11:51 AM SPORTS PHYSIOTHERAPIST): Patient carries a diagnosis of hyperthyroidism for several years. He is currently treated on levothyroxine 75 mcg daily. - Repeat TFT tests in 6 weeks - continue levothyroxine 75 mcg daily Assessment & Plan (04/14/2020 9:57 AM SPORTS PHYSIOTHERAPIST): Patient carries a diagnosis of hyperthyroidism for several years. He is currently treated on levothyroxine 75 mcg daily. - Repeat TFT tests in 6 weeks - continue levothyroxine 75 mcg daily Assessment & Plan (04/10/2020 3:25 PM SPORTS PHYSIOTHERAPIST): 04/02: TSH 6.49, T4 WNL at 1.38 Continue synthroid 75mcg; repeat TFTs 6-8 weeks Assessment & Plan (04/08/2020 3:17 PM SPORTS PHYSIOTHERAPIST): 04/02: TSH 6.49, T4 WNL at 1.38 Continue synthroid 75mcg; repeat TFTs 6-8 weeks Assessment & Plan (04/07/2020 6:16 AM SPORTS PHYSIOTHERAPIST): 04/02: TSH 6.49, T4 WNL at 1.38 Continue synthroid 75mcg; repeat TFTs 6-8 weeks Assessment & Plan (04/10/2020 9:35 PM SPORTS PHYSIOTHERAPIST): Patient carries a diagnosis of hyperthyroidism for several years. He is currently treated on levothyroxine 75 mcg daily. - Repeat TFT tests in 6 weeks - continue levothyroxine 75 mcg daily Hyperlipemia 04/03/2020 Assessment & Plan (05/04/2020 12:55 PM SPORTS PHYSIOTHERAPIST): Has a stated history of hyperlipidemia has been stably treated with atorvastatin 40 mg daily for many years. Patient's LDL low on lipid panel. Notable elevated triglycerides but not fasting sample. - atorvastatin 40 mg daily - fenofibrate 145mg daily Assessment & Plan (05/03/2020 9:56 AM SPORTS PHYSIOTHERAPIST): Has a stated history of hyperlipidemia has been stably treated with atorvastatin 40 mg daily for many years. Patient's LDL low on lipid panel. Notable elevated triglycerides but not fasting sample. - atorvastatin 40 mg daily - fenofibrate 145mg daily Assessment & Plan (05/02/2020 11:57 AM SPORTS PHYSIOTHERAPIST): Has a stated history of hyperlipidemia has been stably treated with atorvastatin 40 mg daily for many years. Patient's LDL low on lipid panel. Notable elevated triglycerides but not fasting sample. - atorvastatin 40 mg daily - fenofibrate 145mg daily Assessment & Plan (05/01/2020 10:58 AM SPORTS PHYSIOTHERAPIST): Has a stated history of hyperlipidemia has been stably treated with atorvastatin 40 mg daily for many years. Patient's LDL low on lipid panel. Notable elevated triglycerides but not fasting sample. - atorvastatin 40 mg daily - tricor 145mg daily Assessment & Plan (04/30/2020 12:17 PM SPORTS PHYSIOTHERAPIST): Has a stated history of hyperlipidemia has been stably treated with atorvastatin 40 mg daily for many years. Patient's LDL low on lipid panel. Notable elevated triglycerides but not fasting sample. - atorvastatin 40 mg daily - tricor 145mg daily Assessment & Plan (04/28/2020 8:01 AM SPORTS PHYSIOTHERAPIST): Has a stated history of hyperlipidemia has been stably treated with atorvastatin 40 mg daily for many years. Patient's LDL low on lipid panel. Notable elevated triglycerides but not fasting sample. - atorvastatin 40 mg daily - tricor 145mg daily Assessment & Plan (04/27/2020 8:47 AM SPORTS PHYSIOTHERAPIST): Has a stated history of hyperlipidemia has been stably treated with atorvastatin 40 mg daily for many years. Patient's LDL low on lipid panel. Notable elevated triglycerides but not fasting sample. - atorvastatin 40 mg daily - tricor 145mg daily Assessment & Plan (04/26/2020 10:11 AM SPORTS PHYSIOTHERAPIST): Has a stated history of hyperlipidemia has been stably treated with atorvastatin 40 mg daily for many years. Patient's LDL low on lipid panel. Notable elevated triglycerides but not fasting sample. - atorvastatin 40 mg daily - tricor 145mg daily Assessment & Plan (04/25/2020 9:45 AM SPORTS PHYSIOTHERAPIST): Has a stated history of hyperlipidemia has been stably treated with atorvastatin 40 mg daily for many years. Patient's LDL low on lipid panel. Notable elevated triglycerides but not fasting sample. Increased to 80mg daily on 04/08 iso of concern for NSTEMI. Last hospitalist note says to Continue 40mg - Decreased atorvastatin 80->40 mg daily - tricor 145mg daily Assessment & Plan (04/24/2020 9:48 AM SPORTS PHYSIOTHERAPIST): Has a stated history of hyperlipidemia has been stably treated with atorvastatin 40 mg daily for many years. Patient's LDL low on lipid panel. Notable elevated triglycerides but not fasting sample. Increased to 80mg daily on 04/08 iso of concern for NSTEMI. Last hospitalist note says to Continue 40mg - Decreased atorvastatin 80->40 mg daily - tricor 145mg daily Assessment & Plan (04/23/2020 10:21 AM SPORTS PHYSIOTHERAPIST): Has a stated history of hyperlipidemia has been stably treated with atorvastatin 40 mg daily for many years. Patient's LDL low on lipid panel. Notable elevated triglycerides but not fasting sample. Increased to 80mg daily on 04/08 iso of concern for NSTEMI. Last hospitalist note says to Continue 40mg - Decreased atorvastatin 80->40 mg daily - tricor 145mg daily Assessment & Plan (04/21/2020 8:38 AM SPORTS PHYSIOTHERAPIST): Has a stated history of hyperlipidemia has been stably treated with atorvastatin 40 mg daily for many years. Patient's LDL low on lipid panel. Notable elevated triglycerides but not fasting sample. Increased to 80mg daily on 04/08 iso of concern for NSTEMI. Last hospitalist note says to Continue 40mg - Decreased atorvastatin 80->40 mg daily - tricor 145mg daily Assessment & Plan (04/20/2020 12:05 PM SPORTS PHYSIOTHERAPIST): Has a stated history of hyperlipidemia has been stably treated with atorvastatin 40 mg daily for many years. Patient's LDL low on lipid panel. Notable elevated triglycerides but not fasting sample. Increased to 80mg daily on 1/17 iso of concern for NSTEMI. Last hospitalist note says to Continue 40mg - Decreased atorvastatin 80->40 mg daily - tricor 145mg daily Assessment & Plan (04/19/2020 9:46 AM SPORTS PHYSIOTHERAPIST): Has a stated history of hyperlipidemia has been stably treated with atorvastatin 40 mg daily for many years. Patient's LDL low on lipid panel. Notable elevated triglycerides but not fasting sample. Increased to 80mg daily on 04/08 iso of concern for NSTEMI. Last hospitalist note says to Continue 40mg - Decreased atorvastatin 80->40 mg daily - tricor 145mg daily Assessment & Plan (04/18/2020 10:09 AM SPORTS PHYSIOTHERAPIST): Has a stated history of hyperlipidemia has been stably treated with atorvastatin 40 mg daily for many years. Patient's LDL low on lipid panel. Notable elevated triglycerides but not fasting sample. Increased to 80mg daily on 04/08 iso of concern for NSTEMI. Last hospitalist note says to Continue 40mg - Decreased atorvastatin 80->40 mg daily - tricor 145mg daily Assessment & Plan (04/17/2020 9:31 AM SPORTS PHYSIOTHERAPIST): Has a stated history of hyperlipidemia has been stably treated with atorvastatin 40 mg daily for many years. Patient's LDL low on lipid panel. Notable elevated triglycerides but not fasting sample. Increased to 80mg daily on 04/08 iso of concern for NSTEMI. Last hospitalist note says to Continue 40mg - Decrease atorvastatin 80->40 mg daily - tricor 145mg daily Assessment & Plan (04/16/2020 11:51 AM SPORTS PHYSIOTHERAPIST): Has a stated history of hyperlipidemia has been stably treated with atorvastatin 40 mg daily for many years. Patient's LDL low on lipid panel. Notable elevated triglycerides but not fasting sample. Increased to 80mg daily on 04/08 iso of concern for NSTEMI. Last hospitalist note says to Continue 40mg - Decrease atorvastatin 80->40 mg daily - tricor 145mg daily Assessment & Plan (04/14/2020 9:56 AM SPORTS PHYSIOTHERAPIST): Has a stated history of hyperlipidemia has been stably treated with atorvastatin 40 mg daily for many years. Patient's LDL low on lipid panel. Notable elevated triglycerides but not fasting sample. Increased to 80mg daily on 04/08 iso of concern for NSTEMI. Last hospitalist note says to Continue 40mg - Decrease atorvastatin 80->40 mg daily - tricor 145mg daily Assessment & Plan (04/13/2020 9:46 AM SPORTS PHYSIOTHERAPIST): Has a stated history of hyperlipidemia has been stably treated with atorvastatin 40 mg daily for many years. Patient's LDL low on lipid panel. Notable elevated triglycerides but not fasting sample. Increased to 80mg daily on 04/08 iso of concern for NSTEMI. Last hospitalist note says to Continue 40mg - Decrease atorvastatin 80->40 mg daily - tricor 145mg daily Assessment & Plan (04/10/2020 3:25 PM SPORTS PHYSIOTHERAPIST): Continue atorvastatin 40 Assessment & Plan (04/08/2020 3:17 PM SPORTS PHYSIOTHERAPIST): Continue atorvastatin 40 Assessment & Plan (04/07/2020 6:15 AM SPORTS PHYSIOTHERAPIST): Continue atorvastatin 40 Assessment & Plan (04/12/2020 9:03 AM SPORTS PHYSIOTHERAPIST): Has a stated history of hyperlipidemia has been stably treated with atorvastatin 40 mg daily for many years. Patient's LDL low on lipid panel. Notable elevated triglycerides but not fasting sample. Increased to 80mg daily on 04/08 iso of concern for NSTEMI. Last hospitalist note says to Continue 40mg - Decrease atorvastatin 80->40 mg daily - discontinue omega 3 fish oil - tricor 145mg daily Umbilical hernia without obstruction and without gangrene 08/31/2018 Overview (08/31/2018): Added automatically from request for surgery [id number] Assessment & Plan (09/06/2018 12:49 PM CDT): The procedure along with the risks, benefits, and post operative period was discussed with the patient and his significant other, to which they agree. Will schedule with concurrent ventral incisional hernia. History of removal of retained hardware 01/23/20 16 History of surgery 01/23/2016 Fracture of calcaneus 07/25/2015 Fracture of navicular bone of foot 05/15/2015 Mass of colon 12/22/2013 Overview (06/26/2016): Mass of colon Severe episode of recurrent major depressive disorder, without psychotic features Resolved Problems Problem Noted Date Diagnosed Date Resolved Date Gallstones 03/10/2024 04/08/2024 ADILENE (acute kidney injury) 04/10/2020 Assessment & Plan (05/04/2020 12:55 PM SPORTS PHYSIOTHERAPIST): Cr 1.3 -> 1.22 resolving. Baseline <1. - encourage fluids - avoid nephrotoxic meds Assessment & Plan (05/03/2020 9:56 AM SPORTS PHYSIOTHERAPIST): Cr 1.3 -> 1.22 resolving. Baseline <1. - encourage fluids - avoid nephrotoxic meds Assessment & Plan (05/02/2020 11:57 AM SPORTS PHYSIOTHERAPIST): Cr 1.3 -> 1.22 resolving. Baseline <1. - encourage fluids - avoid nephrotoxic meds Assessment & Plan (05/01/2020 10:58 AM SPORTS PHYSIOTHERAPIST): Cr 1.3 -> 1.22 resolving. Baseline <1. - encourage fluids - avoid nephrotoxic meds Assessment & Plan (04/19/2020 9:46 AM SPORTS PHYSIOTHERAPIST): Cr 1.3 -> 1.22 resolving. Baseline <1. - encourage fluids - avoid nephrotoxic meds Assessment & Plan (04/18/2020 10:09 AM SPORTS PHYSIOTHERAPIST): Cr 1.3 -> 1.22 resolving. Baseline <1. - encourage fluids - avoid nephrotoxic meds Assessment & Plan (04/16/2020 11:51 AM SPORTS PHYSIOTHERAPIST): Cr 1.3 -> 1.22 resolving. Baseline <1. - encourage fluids - avoid nephrotoxic meds Assessment & Plan (04/14/2020 9:57 AM SPORTS PHYSIOTHERAPIST): Cr 1.3 -> 1.22 resolving. Baseline <1. - encourage fluids - avoid nephrotoxic meds Assessment & Plan (04/13/2020 9:47 AM SPORTS PHYSIOTHERAPIST): Cr 1.3 -> 1.22 resolving. Baseline <1. - encourage fluids - avoid nephrotoxic meds Assessment & Plan (04/12/2020 9:04 AM SPORTS PHYSIOTHERAPIST): Cr 1.3 -> 1.22 resolving. Baseline <1. - encourage fluids - avoid nephrotoxic meds Diarrhea 04/10/2020 04/20/2020 Assessment & Plan (05/04/2020 12:55 PM SPORTS PHYSIOTHERAPIST): Patient recently had constipation, was treated with BID miralax and senna- docusate. Was having diarrhea last week so scheduled bowel regimen discontinued. - discontinued daily senna-docusate - miralax PRN Assessment & Plan (05/03/2020 9:56 AM SPORTS PHYSIOTHERAPIST): Patient recently had constipation, was treated with BID miralax and senna- docusate. Was having diarrhea last week so scheduled bowel regimen discontinued. - discontinued daily senna-docusate - miralax PRN Assessment & Plan (05/01/2020 10:59 AM SPORTS PHYSIOTHERAPIST): Patient recently had constipation, was treated with BID miralax and senna- docusate. Was having diarrhea last week so scheduled bowel regimen discontinued. - discontinued daily senna-docusate - miralax PRN Assessment & Plan (04/19/2020 9:47 AM SPORTS PHYSIOTHERAPIST): Patient recently had constipation, was treated with BID miralax and senna- docusate. Was having diarrhea last week so scheduled bowel regimen discontinued. - discontinued daily senna-docusate - miralax PRN Assessment & Plan (04/16/2020 11:52 AM SPORTS PHYSIOTHERAPIST): Patient recently had constipation, was treated with BID miralax and senna- docusate. Was having diarrhea last week so scheduled bowel regimen discontinued. - discontinue daily senna-docusate - miralax PRN Assessment & Plan (04/14/2020 9:57 AM SPORTS PHYSIOTHERAPIST): Patient recently had constipation, was treated with BID miralax and senna- docusate. Endorsing nonbloody diarrhea for last 2 days. - discontinue daily senna-docusate - miralax PRN Assessment & Plan (04/10/2020 10:09 PM SPORTS PHYSIOTHERAPIST): Patient recently had constipation, was treated with BID miralax and senna- docusate. Endorsing nonbloody diarrhea for last 2 days. - discontinue daily senna-docusate - miralax PRN Ventral hernia without obstr uction or gangrene 08/31/2018 04/20/2020 Overview (08/31/2018): Added automatically from request for surgery [id number] Assessment & Plan (09/06/2018 12:51 PM CDT): The procedure along with the risks, benefits, and post operative period were discussed with the patient and his significant other who agree. 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 Gallstones (Primary Dx) from Last 3 Months Immunizations Immunization Administration Dates Next Due Influenza, Quadrivalent, Spl it, Intramuscular 01/09/2020,01/09/2020,01/06/2019,01/06,01/06/2019,01/07/2017,01/07/2017 ,01/07/2017,02/05/2015,02/05/2015,01/21 Influenza, Quadrivalent, Spl it, Preservative Free, Intramuscular 01/03/2019,01/28/2018,01/28/2018,01/28,01/05/2014 Influenza, Trivalent, IM (MDV) 03/08/2015,2014 Influenza, Unspecified 01/03/2020,01/03/2020, Pneumococcal Polysaccharide PPV23 03/08/2015,,03/08/2015 ZOSTER Recombinant 08/28/2020 Zoster, unspecified 08/28/2020 Surgical History Surgery Date Site/Laterality Comments OTHER SURGICAL HISTORY cervical disc surgery OTHER SURGICAL HISTORY Bilateral rotary cuff X2 OTHER SURGICAL HISTORY R knee X2 orthoscopy TONSILLECTOMY OTHER SURGICAL HISTORY 03/23/2013 - 03/22/2014 [place] Lap R colectomy APPENDECTOMY RIGHT COLECTOMY 01/03/2014 COLONOSCOPY 01/04/2016 POLYPECTOMY FOOT SURGERY Left Reconstruction of fracture SEPTOPLASTY HERNIA REPAIR 08/21/2018 - 09/19/2018 x2 KNEE SURGERY Left FLUORO GUIDED INJECTION ANKL E LEFT 09/06/2020 Left OTHER SURGICAL HISTORY Cancerous Tumors removed from liver CHOLECYSTECTOMY 03/11/2024 Medical History Medical History Date Comments Disorder of thyroid 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 Never been admitted, in ICU, or on a vent related to this Smoking previous Nephrolithiasis Depression Sleep apnea last sleep study 2015; Patient cannot get used to CPAP Hard to intubate 03/10/2019 limited mouth o pening, limited mandibular protrusion and protruding incisors/overbit - video laryngoscopy used Family History Medical History Relation Name Comments Bipolar disorder Brother Cirrhosis Father Heart failure Half-Sister Alcohol abuse Mother Asthma Mother Heart attack Mother Lung cancer Other 1 Family history of Cancer, lung; Asthma Other 2 Family history of Asthma; Coronary artery disease Other 3 Fami ly history of Coronary artery disease; Anesthesia problems Neg Hx Relation Name Status Comments Brother Father Half-Sister Mother Other 1 Other 2 Other 3 Social History Tobacco Use Types Packs/Day Years Used Date Smoking Tobacco: Former Cigarettes 0.5 23 1 985 - 2008 Smokeless Tobacco: Never Tobacco Cessation:Counseling Given: Not Answered Comments:Ecig (no nicotine) Alcohol Use Standard Drinks/Week [...] ex-partner? Patient declined 04/03/2020 Social Connection and Isolat ion Panel [NHANES] Answer Date Recorded In a typical week, how many times do you talk on the phone with family, friends, or neighbors? Three times a week 02/01/2021 How often do you get togethe r with friends or relatives? Three times a week 02/01/2021 How often do you attend [facility] or spiritism services? More than 4 times per year 02/01/2021 Do you belong to any clubs o r organizations such as zoroastrian groups, unions, fraternal or athletic groups, or school groups? No 02/01/2021 How often do you attend meet ings of the clubs or organizations you belong to? Never 02/01/2021 Are you , , di vorced, , never , or living with a partner? 02/01/2021 AUDIT-C Answer Date Recorded Frequency of Alcohol Consumption Not on file 03/10/2024 Q2: How many drinks containi ng alcohol do you have on a typical day when you are drinking? Patient does not drink Frequency of Binge Drinking Not on file 02/20 Overall Financial Resource Strain (CARDIA) Answe r Date Recorded How hard is it for you to pa y for the very basics like food, housing, medical care, and heating? Not very hard 02/01/2021 PHQ-2 Answer Date Recorded PHQ-2 Total Score 4 04/03/2020 [facility] [place] [facility] - Occupational Stress [...] you got the money to buy more. Never true 02/02/20 21 Within the past 12 months, t he food you bought just didn't last and you didn't have money to get more. Never true 02/01/2021 PRAPARE - Transportation Answer Date Re corded In the past 12 months, has l ack of transportation kept you from medical appointments or from getting medications? No 01/21 In the past 12 months, has l ack of transportation kept you from meetings, work, or from getting things needed for daily living? No 02/01/2021 Housing Stability Vital Sign Answer Conner e Recorded In the last 12 months, was t here a time when you were not able to pay the mortgage or rent on time? No 02/01/2021 In the last 12 months, how many places have you lived? 1 02/01/2021 In the last 12 months, was t here a time when you did not have a steady place to sleep or slept in a longterm (including now)? No 02/01/2021 Personal Safety Answer Date Recorded Have you ever been in or are you currently in a harmful physical or emotional relationship or is someone making you feel afraid or unsafe? Denies 03/11/2024 Sex and Gender Information Value Date Recorded Sex Assigned at Not on file Legal Sex Male 3:25 AM SPORTS PHYSIOTHERAPIST Gender Identity Male 03/26/2021 11:53 AM SPORTS PHYSIOTHERAPIST Sexual Orientation Choose not to disclose 2021 11:53 AM SPORTS PHYSIOTHERAPIST Occupation Industry Job Start Date Job End Date disabled Not on file Not on file Not on file Obstetrics History Last Filed Vital Signs Vital Sign Reading Time Taken Comments Blood Pressure 126/74 04/06/2024 9:02 AM SPORTS PHYSIOTHERAPIST Pulse 68 04/06/2024 9:02 AM SPORTS PHYSIOTHERAPIST Temperature 36.2 C (97.1 F) 04/06/2024 9:02 AM SPORTS PHYSIOTHERAPIST Respiratory Rate 16 03/11/2024 4:45 PM SPORTS PHYSIOTHERAPIST Oxygen Saturation 95% 04/06/2024 9:02 AM SPORTS PHYSIOTHERAPIST Inhaled Oxygen Concentration - - Weight 97.3 kg (214 lb 9.6 oz) 04/06/2024 9:02 A M SPORTS PHYSIOTHERAPIST Height 182.9 cm (6') 04/06/2024 9:02 AM SPORTS PHYSIOTHERAPIST Body Mass Index 29.1 04/06/2024 9:02 AM SPORTS PHYSIOTHERAPIST Plan of Treatment Health Maintenance Due Date Last Done Comments Hepatitis C Screening 1966 Hepatitis B Screening 1984 Regular Well Visit/Exam 18-64 1984 Pneumococcal vaccine <65 (3 of 3 - PCV) 03/08/2016 03/08/2015, 03/08/2015, 03/08/2015 Depression Screening 04/03/2021 04/03/2020, 04/03/19 21 Prostate Cancer Screening-PSA 12/19/2021 12/20/2019, 12/29/2018 Influenza Vaccine (#1) 2023 2, 05/28/2021, 01/09/2020, Additional history exists Colon Cancer Screening-Colonoscopy 11/19/2027 11/18/2017, 11/26/2016, 01/04/2016, Additional history exists DTaP/Tdap/Td Vaccine (3 - Td or Tdap) 05/12/2032 05/12/2022, 04/29/2013 Colon Cancer Screening-CT Colonography Discontinued 11/18/2017, 11/26/2016, 01/04/2016, Additional history exists Colon Cancer Screening-DNA Stool Discontinued 11/18/2017, 11/26/2016, 01/04/2016, Additional history exists Colon Cancer Screening-FIT Discontinued 11/18, 11/26/2016, 01/04/2016, Additional history exists Colon Cancer Screening-Sigmoidoscopy Discontinued 11/18/2017, 11/26/2016, 01/04/2016, Additional history exists Zoster Vaccine Completed 10/30/2020, 10/2020, 08/28/2020 Medical Devices Implanted Type Area Corporate [employer] Analyst Device Identifier Shelf Expiration Date Model / Serial / Lot [employer] Inc/Eda Gallego [id number] Ventralight St Sepra 4.5in Uncoated Monofilament Lightweight - [id number] Implanted:Qty: 1 on 09/09/2018 by Xavier Aviles MD at [facility] N/A: Abdomen [employer] Inc/C R Bard 12/19/2019 [id number] / / [id number] Really Simple Inc [id number] Mini Ignite Power Mix Injectable Graft 4ml Synthetic Tissue - [id number] - [id number] Implanted:Qty: 1 on 01/29/2021 by Don Kevin MD at [facility] Advanced [facility] [employer] 07/08/2023 [id number] / [id number] / [employer] [id number] Medline Unite 7mm 6.5mm 80mm 16mm Cannulated Color Coded Headless - [id number] Implanted:Qty: 1 on 01/29/2021 by Don Kevin MD at [facility] Left: Foot Medline [employer] [id number] / / Med[employer] Inc [id number] Medline Unite 6.5mm 90mm 16mm Cannulated Color Coded Headless - [id number] Implanted:Qty: 1 on 01/29/2021 by Don Kevin MD at [facility] Left: Foot [employer] [id number] / / [employer] [id number] Screw Bone L50mm Od4.5mm Foot Ankle Cannulated Color Coded Osteotomy - [id number] Implanted:Qty: 1 on 01/29/2021 by Don Kevin MD at [facility] Advanced [facility] Left: Foot [employer] [id number] / / 20x20 Nitnol Staple Implanted:Qty: 1 on 01/29/2021 by Don Kevin MD at [facility] Left: Foot [employer] Inc Description:[id number] [employer] Inc [id number] Bit 3.3mm Drill Cannulated Ao Quick Connect Color Coded - [id number] Implanted:Qty: 1 on 01/29/2021 by Don Kevin MD at [facility] Left: Foot [employer] [id number] / / Procedures Procedure Name Priority Date/Time Associated Diagnosis Comments PSA SCREEN Routine 12/20/2019 2:31 PM CDT COLONOSCOPY 11/18/2017 7:41 AM CDT from Last 3 Months or Most Recently Relevant to Health Maintenance Results * PSA screen (12/20/2019 2:31 PM CDT) PSA-Total 0.53 <=3.90 ng/mL YULY HUNTER ([place]) Comment: Interpretive Data AGE SEX REFERENCE INTERVAL 0 minutes-150 years Female None 0 minutes-49 years Male None 50-59 years Male 0-3.90 60-69 years Male 0-5.40 70-79 years Male 0-6.20 80-150 years Male 0-6.20 Current interpretive data last revised 2018. Testing performed by: [facility], [address] [place], [place] [id number]., [facility] Blood specimen (specimen) 12/20/2019 2:31 PM CDT 12/20/2019 6:54 PM CDT us Raoul Best MD LAB BLOOD ORDERABLES Final Re sult YULY ELSA (SAIMA) [facility] [place] [address] * COLONOSCOPY (11/18/2017 7:41 AM CDT) Anatomical Region Laterality Modality Other Narrative Procedure Note Alexander Pitts MD - 11/18/2017 7:41 AM CDT [facility] Patient Name: Baljeet Herman Procedure Date: 11/18/2017 7:41 AM Date of : 1965 Admit Type: Outpatient Age: 52 Gender: Male Attending MD: Alexander Ptits MD Room: [facility] ENDOSCOPY ROOM 2 Note Status: Finalized Patient Profile: 52 WM, h/o carcinoid colon cancer. had recent issues with constipation. Procedure: Colonoscopy Indications: High risk colon cancer surveillance: Personalhistory of colon cancer Referring MD: EFRAIN Burris Providers: Alexander Pitts MD Impression: - The entire examined colon is normal. - No specimens collected. Recommendation: - Discharge patient to home. - Repeat colonoscopy in 3 years for surveillance. Medicines: Monitored Anesthesia Care Complications: No immediate complications. Estimated Blood Loss: Estimated blood loss: none. Procedure: Pre-Anesthesia Assessment: - Prior to the procedure, a History and Physical was performed, and patient medications and allergieswere reviewed. The patient's tolerance of previous anesthesia was also reviewed. The risks and benefitsof the procedure and the sedation options and riskswere discussed with the patient. All questions were answered, and informed consent was obtained. Prior Anticoagulants: The patient has taken no previous anticoagulant or antiplatelet agents. ASA Grade Assessment: II - A patient with mild systemicdisease. After reviewing the risks and benefits, the patientwas deemed in satisfactory condition to undergo the procedure. The benefits, risks and alternatives of theprocedure and sedation were discussed and informed consent was obtained. All questions were answered. Please referto the signed informed consent document in the medical record. The scope was passed under direct vision.The Pediatric Colonoscope PCF-H190L [id number] was introduced through the anus and advanced to the the anastomosis. The colonoscopy was performed without difficulty. The patient tolerated the procedurewell. The quality of the bowel preparation was good. Findings: The perianal and digital rectal examinations were normal. The anastomosis site appeared normal and intact. The colon (entire examined portion) appeared normal. Retroflexion in the rectum showed small hemorrhoids. Electronically signed by Alexander Pitts M.D. Alexander Pitts MD 11/18/2017 8:53:35 AM Number of Addenda: 0 Note Initiated On: 11/18/2017 7:41 AM Procedure Code(s): --- Professional --- G0105, Colorectal cancer screening; colonoscopy on individual at high risk Diagnosis Code(s): --- Professional --- Z85.038, Personal history of other malignant neoplasm of largeintestine CPT copyright 2017 [employer]. All rights reserved. The codes documented in this report are preliminary and upon broach operator reviewmay be revised to meet current compliance requirements. Recognized by the [employer] for promoting quality in endoscopy Alexander Pitts MD ENDOSCOPY PROCEDURES Final Result from Last 3 Months or Most Recently Relevant to Health Maintenance Insurance MEDICARE IDPA IDPA [facility] MEDICARE ADVANTAGE [facility] MEDICARE ADVANTAGE IDPA Advance Directives For more information, please contact: [phone] Documents on File Type Date Recorded Patient Plane Captain Expl anation ADVANCE DIRECTIVE 03/10/2019 8:47 AM John r of Lime Supervisor-Medical * Full Code (Latest Code Status on File) Date Activated Date Inactivated Comments 01/29/2021 3:28 PM 01/31/2021 2:51 PM * Full Code Date Activated Date Inactivated Comments 05/31/2020 6:09 AM 06/01/2020 4:56 AM * Full Code Date Activated Date Inactivated Comments 05/24/2020 6:14 AM 05/25/2020 4:56 AM * Full Code Date Activated Date Inactivated Comments 05/17/2020 5:58 AM 05/18/2020 4:56 AM * Full Code Date Activated Date Inactivated Comments 05/10/2020 9:14 AM 05/11/2020 5:01 AM Care Teams Manager Plant Relationship Specialty Start Date End Date Kevin Meyer PA [address] [place] [address] PCP - General 03/23/19 Kevin Meyer PA [address] [place] [address] 03/23/19 Benja Esteban MD [address] [place] [address] Medical Oncologist/Endoscopy Tech Hematology and Oncology 02/28/20
--- OUTSIDE RECORDS SUMMARY | 2024-07-04 09:46 | XMS_ITS ---
Author Organization Unknown Address [address] [place] [phone] Phone Care Team Providers Care Net Coordinator Name Role Phone VIOLIN REPAIRER PHYLLIS Attending Unavailable SUYAPA YIN Primary Unavailable Immunization [...] zoster recombinant 10/30/2020 Completed 187 CVX Results MRI UE JOINT WO CONTRAST - C ompleted: 02/18/2023 14:18 LOINC: ADDENDUM REPORT: ADDENDUM: This addendum report supersedes the original report dated 02/18/2023. The purpose of this exam is to correct the laterality of the technique and impression. TECHNIQUE: Multiplanar, multisequence MRI of the left elbow was performed without contrast. IMPRESSION: ? ? Mild to moderate olecranon bursitis with dorsal soft tissue defect and induration of the surrounding subcutaneous tissues. Findings raise suspicion for septic bursitis. There is extension down to the olecranon with a focal area of abnormal marrow signal at the margin, suspicious for acute osteomyelitis. ? ? Mild insertional left triceps tendinopathy. ? ? Small right elbow effusion. ? ? Focal enlargement increased signal of the ulnar nerve as it courses through the cubital tunnel, which can be associated with ulnar neuropathy. END OF ADDENDUM REPORT EXAM DESCRIPTION: MRI UE JOINT WO CONTRAST REASON FOR STUDY: Left elbow MRI wo contrast. S/P left elbow bursal surgery in June 2022; wound took c.3 months to heal and everything seemed normal until the pt was awakened from his sleep 2-3 wks ago by intense left elbow pain; joint area is puffy, erythematic, warm to the touch, and very sensitive, now; provider concerned regarding possible osteomyelitis. No non-nosocomial trauma noted. Duration: 2-3 weeks. Previous Surgery: BURSA REMOVED c.7 MONTHS AGO. TECHNIQUE: Multiplanar, multisequence MRI of the right elbow was performed without contrast. COMPARISON: None available FINDINGS: On this non-arthrographic evaluation, the ulnar collateral, radial collateral, lateral ulnar collateral and annular ligaments are intact. There are no fractures. Alignment is normal. The joint spaces are normal. Small elbow effusion is present. The biceps and brachialis tendons are intact. There is no evidence of bicipitoradial bursitis. There is mild insertional triceps tendinopathy. The common flexor and common extensor tendon origins are normal. There is focal enlargement increased signal of the ulnar nerve as it courses through the cubital tunnel. The median and radial nerves appear normal in course and morphology. There is [id number] olecranon bursitis with a dorsal soft tissue defect. There is induration of the surrounding subcutaneous tissues. There is extension down to the olecranon with a focal area of abnormal marrow signal at the margin. IMPRESSION: ? ? Mild to moderate olecranon bursitis with dorsal soft tissue defect and induration of the surrounding subcutaneous tissues. Findings raise suspicion for septic bursitis. There is extension down to the olecranon with a focal area of abnormal marrow signal at the margin, suspicious for acute osteomyelitis. ? ? Mild insertional right triceps tendinopathy. ? ? Small right elbow effusion. ? ? Focal enlargement increased signal of the ulnar nerve as it courses through the cubital tunnel, which can be associated with ulnar neuropathy. THIS IS AN ELECTRONICALLY VERIFIED FINAL REPORT 02/18/2023 2:15 PM - Electronically signed by Paul Valencia M.D. MF: [email or web address] Report ID: [id number] Reading Location: [id number] THIS IS AN ELECTRONICALLY VERIFIED FINAL REPORT 02/26/2023 10:28 AM ? Addendum Electronically signed by Paul Valencia M.D. MF: [email or web address] Report ID: [id number] Reading Location: [id number] Social History Type Status Start Date End Date Code Code Syst em Smoking History Never smoker (Never Smoked) [id number] SNOMED CT Sex Male Hospital Discharge Instructions Should you have any questions prior to discharge, please contact a member of your healthcare team. If you have left the hospital and have any questions, please contact your primary care physician. Reason For Referral No Data Found Plan of Treatment No Data Found Encounters Encounter Diagnosis Start Date Code Code Sys tem Osteomyelitis, unspecified 02/18/2023 S NOMED-CT Personal Care Team Section Performer Name Performer Role Active Date Inactive ANNAMARIA Gutierrez PCP - Primary care physician 2021-08-14 Imaging Narrative Notes
--- OUTSIDE RECORDS SUMMARY | 2024-07-04 09:46 | XMS_ITS | Encounter Summary ---
Author Organization [facility] Address [address] [place] [place] [address] Phone Care Team Providers Care Ring Sewer Name Role Phone Kevin Meyer Primary Care Provider [phone] Amy Allen APRN, INSIGHTS STRATEGIST Unavailable + [phone] Dawit MARISCAL MD, Courtney Unavailable [phone] Brad Bone MD Unavailable [phone] Vanda Jimenez APRN, INSIGHTS STRATEGIST Unavailable Min Mario MD Unavailable Encounter Details Date Type Department Care Team (Latest Contact Info) Description 02/25/2023 Transcribe Orders [facility] Preop[facility]Pac[facility] [address] [place] [address] Tavo Polo MD PhD #[address] [place] [address] Abnormal echocardiogram (Primary Dx); Preprocedural cardiovascular examination Social History Tobacco Use Types Packs/Day Years [...] Info) Description 07/15/2024 9:30 AM CDT [facility]ointment [facility] [address] [place] [address] Min Mario MD #[address] [address] Discharge Disposition: Discharged to home or Selfcare 07/21/2024 9:30 AM CDT Procedure Visit [facility] #[address] [place] [address] Min Mario MD #[address] [address] documented as of this encounter Results * (ABNORMAL) BASIC METABOLIC PANEL W/ CALCIUM TOTAL (04/16/2023 3:23 PM STAMP ANALYST) SODIUM 137 136 - 145 mmol/L 04/16/2023 5:06 PM [facility] POTASSIUM 3.5 3.5 - 5.1 mmol/L 04/16/2023 5:06 PM STAMP ANALYST [facility] CHLORIDE 100 98 - 107 mmol/L 04/16/2023 5:06 PM STAMP ANALYST [facility] CO2, VENOUS 29 22 - 30 mmol/L 04/16/2023 5:06 PM STAMP ANALYST [facility] ANION GAP 11.5 <18.0 mmol/L 04/16/2023 5:06 PM [facility] GLUCOSE 92 70 - 99 mg/dL 04/16/2023 5:06 PM [facility] BUN 7(L) 8 - 26 mg/dL 04/16/2023 5:06 PM [facility] CREATININE, BLOOD 1.00 0.70 - 1.30 mg/dL 04/16/2023 5:06 PM [facility] BUN/CREATININE RATIO 7(L) 12 - 20 ratio 04/16/2023 5:06 PM [facility] CALCIUM 9.1 8.7 - 10.5 mg/dL 04/16/2023 5:06 PM [facility] IS THE PATIENT REQUIRED TO BE FASTING? No 04/16/2023 5:06 PM STAMP ANALYST [facility] GFR, ESTIMATED >60 >=60 04/16/2023 5:06 PM [facility] Comment: Creatinine Clearance is the preferred criteria for selecting drug dose adjustments in renally impaired patients. The GFR is provided as additional pertinent clinical information. GFR is reported in mL/min/1.73 sq m. Calculation based on the Chronic Kidney Disease Epidemiology Collaboration (CKD- EPI) equation refit without adjustment for race. GFR, EST. >60 >=60 024 5:06 PM [facility] GFR, EST. NONAFRICAN >60 >=60 04/16/2023 5:06 PM [facility] Blood Venipuncture / Unknown 04/16/2023 3:23 PM STAMP ANALYST 04/16/2023 4:25 PM STAMP ANALYST us Tavo Polo MD PhD CHEMISTRY ORDERABLES Final Result [facility] [address] [place] [address] documented in this encounter Visit Diagnoses Diagnosis Abnormal echocardiogram- Primary Nonspecific (abnormal) findings on radiological and other examination of other intrathoracic organs Preprocedural cardiovascular examination Pre-operative cardiovascular examination documented in this encounter Care Teams Ring Sewer Relationship Specialty Start Date End Date Kevin Meyer PAC [address] [place] [address] PCP - General Physician Satellite Dish Technician 07/15/17 Amy Allen APRN, INSIGHTS STRATEGIST #[facility] [address] [place] [address] Nurse Practitioner Cardiology 01/27/23 Merlene Pastor III, MD #[address] [place] [address] Consulting Physician Urology 10/28/21 Brad Bone MD [address] [place] [id number] Consulting Physician Neurology 09/04/22 Vanda Jimenez APRN, INSIGHTS STRATEGIST [address] [place] [address] Nurse Practitioner Advanced Practice Nurse 07/31/22 Min Mario MD #[address] [address] Consulting Physician Urology 12/17/23 documented as of this encounter
--- OUTSIDE RECORDS SUMMARY | 2024-07-04 09:46 | XMS_ITS ---
Care Plan - [facility] Created on: July 04, 2024 AILEEN HERMAN Sujatha : 1965 Sex: Male Author Organization [facility] Address [address] [place] [address] Phone Care Team Providers Care Sales And Service Associate Name Role Phone Unavailable Unavailable Unavailable
--- OUTSIDE RECORDS SUMMARY | 2024-07-04 09:46 | XMS_ITS | Clinical Summary ---
Author Organization [facility] Address [address] [place] [address] Phone Care Team Providers Care Leaf Binner Name Role Phone Unavailable Unavailable Unavailable Reason [...] On 05/29/2022 9:44AM By Ar COX ; [facility] Pregabalin 50 MG Oral Capsule 05/01/2022 Provider: Diagnosis: 50mg BID Last Documented On 05/01/2022 1:59PM By Freida Britt RN ; [facility] Rimegepant Sulfate 75 MG Oral Tablet Disintegrating Provider: Diagnosis: 75mg daily prn for migraine FENTON Last Documented On 05/01/2022 2:00PM By Freida Britt RN ; [facility] traMADol HCl 50 MG Oral Tablet 05/01/2022 Provider: Diagnosis: 1 tab po q 6 hrs prn Last Documented On 05/01/2022 2:01PM By Freida Britt RN ; [facility] Effexor XR 150 MG Oral Capsule Extended Release 24 Alexandra r 05/01/2022 Provider: Diagnosis: 1 daily Last Documented On 05/01/2022 2:02PM By Freida Britt RN ; [facility] rOPINIRole HCl 1 MG Oral Tablet 05/01/2022 Provider: Diagnosis: TID prn Last Documented On 05/01/2022 2:02PM By Freida Britt RN ; [facility] Prazosin HCl 1 MG Oral Capsule 05/01/2022 Provider: Diagnosis: Last Documented On 05/01/2022 1:59PM By Freida Britt RN ; [facility] QUEtiapine Fumarate 100 MG Oral Tablet 05/01/2022 Pr ovider: Diagnosis: Last Documented On 05/01/2022 1:58PM By Freida Britt RN ; [facility] Cyclobenzaprine HCl 10 MG Oral Tablet 05/01/2022 Pro vider: Diagnosis: 1 tab po TID prn for muscle spasms Last Documented On 05/01/2022 1:58PM By Freida Britt RN ; [facility] Loreev XR 1 MG Oral Capsule ER 24 Hour Sprinkle 2022 Provider: Diagnosis: Last Documented On 05/01/2022 1:35PM By Ar COX ; [facility] Venlafaxine HCl ER 150 MG Or al Capsule Extended Release 24 Hour 02/28/2021 Provider: Diagnosis: Last Documented On 02/28/2021 9:15AM By Ar COX ; [facility] Levothyroxine Sodium 75 MCG Oral Capsule 02/28/2021 Provider: Diagnosis: Last Documented On 02/28/2021 9:14AM By Ar COX ; [facility] Past Medications on file Cyclobenzaprine HCl 10 MG Oral Tablet 06/20/2022 - 06/25/2022 Provider: NALDO BETH MD Diagnosis: Dorsalgia, unspecified 1 tab po TID prn for muscle spasms Last Documented On 06/20/2022 12:32PM By Naldo Beth MD ; [facility] Medications Administered Includes: Administered Medications from this encounter No Administered Medications Recorded Results Includes: Results discussed during this encounter No Results Recorded For Specified Dates History of Present Illness Includes: History of Present Illness from this encounter LOTTIE HURD is a 57 year old male. Pharmacy name:~location: [facility]. Social History Description Last Updated Tobacco non-user 02/28/2021 Last Documented On 11:01AM ; [facility] No recent change in sleep 02/28/2021 Last Documented On 3 11:01AM ; [facility] [PHQ-2] Patient Health Questionnaire 2 i tem total score: 8 (Scale: 0-6) 02/28/2021 Last Documented On 3 11:01AM ; [facility] Difficulty walking 02/28/2021 Last Documented On 3 11:01AM ; [facility] No consumption of alcohol 02/28/2021 Last Documented On 3 11:01AM ; [facility] Not using drugs 02/28/2021 Last Documented On 3 11:01AM ; [facility] Smoking Status Unknown Procedures and Surgical History Surgical History Last Updated No Pacemaker 02/28/2021 Last Documented On 3 11:01AM ; [facility] Medical History Includes: Medical History addressed during this encounter Description Last Updated Blood pressure was high 02/28/2021 Last Documented On 3 11:01AM ; [facility] Hypertension 02/28/2021 Last Documented On 3 11:01AM ; [facility] No exposure to a contagious disease 11/2020 Last Documented On 3 11:01AM ; [facility] No previous psychiatric treatment 2020 Last Documented On 3 11:01AM ; [facility] Not taking OTC medications 02/28/2021 Last Documented On 3 11:01AM ; [facility] Taking medication for high blood pressur e 02/28/2021 Last Documented On 3 11:01AM ; [facility] progressive care unit registered nurse 02/28/2021 Last Documented On 3 11:01AM ; [facility] Currently wearing eyeglasses 02/28/2021 Last Documented On 3 11:01AM ; [facility] Injection/Nerve blocks 02/28/2021 Last Documented On 3 11:01AM ; [facility] Moderate to severe pain 02/28/2021 Last Documented On 3 11:01AM ; [facility] No Pain Pump 02/28/2021 Last Documented On 3 11:01AM ; [facility] No Spinal cord stimulator 02/28/2021 Last Documented On 3 11:01AM ; [facility] Other method: 02/28/2021 Last Documented On 3 11:01AM ; [facility] Physical therapy 02/28/2021 Last Documented On 3 11:01AM ; [facility] Please list all illnesses/co nditions you have been diagnosed with: Bi polar manic depressed colon cancer 02/28/2021 Last Documented On 3 11:01AM ; [facility] Please list all surgeries: Dec colos gabby Apr 2015 ankle Jan 2021 ankle 02/28/2021 Last Documented On 3 11:01AM ; [facility] Surgery 02/28/2021 Last Documented On 3 11:01AM ; [facility] Uses a cane for support 02/28/2021 Last Documented On 3 11:01AM ; [facility] Uses a Knee Brace 02/28/2021 Last Documented On 3 11:01AM ; [facility] Family History Includes: Family History addressed during this encounter Description Last Updated Fraternal history of Arthritis Last Documented On 3 11:01AM ; [facility] Maternal history of family history of is chemic heart disease 02/28/2021 Last Documented On 3 11:01AM ; [facility] Reported family history of seizures 11/2020 Last Documented On 3 11:01AM ; [facility] Review of Systems Includes: Review of Systems [...] Active Last Documented On 07/02/2022 3:31PM ; [facility] Note: Blurred vision BEES Allergy 05/01/2022 Active Last Documented On 3 3:31PM ; [facility] Bactrim Allergy Skin Rashes / Eruption of skin 3 Active Last Documented On 3 3:31PM ; [facility] Encounters Encounter Provider Location Date Check-In Time Check-Out Time Diagnosis RX ISSUE/REFILL NALDO BETH MD 06/19/2022 11:01AM 11:59PM Insurance Includes: Active Insurance Policies Plan Name Member ID Group # Subscriber Relationship Effect vini Dates 1 - [facility] [id number] AILEEN HURD Self 2 - [employer] [place] MEDICARE SECOND [id number] AILEEN HURD Self Clinical Notes Includes: Clinical Notes from this encounter * Progress note Date Encounter Last Documented by 06/19/2022 RX ISSUE/REFILL Last documented on 06/19/2022; 5:11 PM, NALDO BETH MD; [facility] Chief Complaint Phone Call - Chief Concern: reason for call: Patient called into the office c/o increased pain in the neck and shoulders and now new pain in bilateral knees. Patient reports this pain as tense muscles almost. He has in the past taken Flexeril and this has helped. He is wanting to know if he could try this again? He is also using, Voltaren gel, Ice, and Tramadol, but they are no longer working for the pain. Next f/u apt is on 07/02/22 pt phone # for return call: [phone] date/initials: 06/19/22. History of Present Illness AILEEN HURD is a 57 year old male. Pharmacy name:~location: [facility]. Current Medication - Ambien 10 MG Oral [...] Past Medical/Surgical History Reported: Surgery, Injection/Nerve blocks, progressive care unit registered nurse, 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 total score: 8 (Scale: 0-6). Allergies - BEES - Gabapentin Family History Reported family history of seizures Maternal: Ischemic heart disease Fraternal: Arthritis Plan StartCited - Other *CARMEN yes patient can try flexeril of not . EndCited Health Reminders - Assess Tobacco Use satisfied 06/19/2022.
--- OUTSIDE RECORDS SUMMARY | 2024-07-04 09:46 | XMS_ITS | Encounter Summary ---
Author Organization [facility] Address [facility] [place] [address] Care Team Providers Care Felt Hooker Name Role Phone None, Provider Primary Care Provider Kevin Hassan Primary Care Provider [phone] Encounter Details Date Type Department Care Team (Late st Contact Info) Description 08/28/2018 Abstract [facility] CONVERSION [address] [place] [address] , Generic Conversion, Social History Tobacco Use Types Packs/Day Years Used Date Smoking Tobacco: Never Assessed Sex and Gender Information Value Date Recorded Sex Assigned at Male 06/30/2024 12:49 PM CDT Legal Sex Male 7:14 PM CDT Gender Identity Not on file Sexual Orientation Not on file documented as of this encounter Plan of Treatment Upcoming Encounters Date Type Department Care Team (Latest Contact Info) Description 08/03/2024 10:00 AM CDT Hospital Encounter [facility] [place] [address] [id number] Daniela Henderson MD [facility] [address] [place] [address] 08/03/2024 10:00 AM CDT - 08/03/2024 10:20 AM CDT Surgery [facility] [place] [address] [id number] Daniela Henderson MD [facility] [address] [place] [address] INJECTION TRIGGER POINT - LEFT HARDWARE BLOCKS [id number] 09/01/2024 2:20 PM CDT Office Visit [facility] - [facility] [address] [facility], [address] [place] [address] Mando Rojas MD [address] [place] [address] Scheduled Procedures Name Priority Associated Diagnoses Date/Ti me INJECTION TRIGGER POINT Z98.1 (ICD-10-CM) - S/P lumbar spinal fusion T85.848D (ICD-10-CM) - Pain from implanted hardware, subsequent encounter 08/03/2024 10:00 AM CDT documented as of this encounter Visit Diagnoses Not on filedocumented in this encounter Additional Health Concerns Infection Onset Date Last Indicated Resolved Time MRSA Comment:First negative 07/07/22 Second negative 07/27/23 04/08/2018 04/08/2018 08/11/2023 9:17 A M CDT COVID-19 Rule Out 05/25/2021 05/25/2021 05/25/2021 9:39 PM DITCH CLEANER COVID-19 Rule Out 03/03/2023 03/03/2023 03/04/2023 7:03 PM DITCH CLEANER documented as of this encounter Care Teams Felt Hooker Relationship Specialty Start Date End Date None, Provider, PCP - General 01/10/20 05/27/21 Kevin Meyer PA [address] [place] [address] PCP - General PHYSICIAN TALENT DEVELOPMENT DIRECTOR 05/28/21 documented as of this encounter
--- OUTSIDE RECORDS SUMMARY | 2024-07-04 09:46 | XMS_ITS | Referral Summary ---
Author Organization [facility] Address [address] [place] [address] Care Team Providers Care Component Lab Tech Name Role Phone Kevin Meyer Primary Care Provider [phone] Kevin Meyer Unavailable [phone] Benja Esteban MD Unavailable [phone] Encounters Date Type Department Care Team Description 04/06/2024 9:25 AM DIRECTOR FINANCIAL PLANNING Office Visit [address] [place] [address] EyersKatherine NP Gallstones (Primary Dx) from Last 3 Months Allergies Active Allergy Reactions Criticality Noted Date [...] 1 tablet (75 mcg total) by mouth insurance broker before breakfast Active venlafaxine XR (EFFEXOR-XR) 150 [...] (12/17/2020): Added automatically from request for surgery [id number] 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/13/2020 Overview (12/13/2020): Added automatically from request for surgery [id number] 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 Stimulant use disorder 05/31/2020 Severe alcohol use disorder 05/31/2020 PTSD (post-traumatic stress disorder) 05/31/2020 Chronic bilateral low back pain without sciatica 04/07/2020 Assessment & Plan (05/04/2020 12:54 PM DIRECTOR FINANCIAL PLANNING): - flexeril 10mg TID PRN - [place] 10mg q4 PRN - lidocaine patch daily - avoid IV ketorelac and NSAIDs with starting lithium - heating packs Assessment & Plan (05/03/2020 9:56 AM DIRECTOR FINANCIAL PLANNING): - flexeril 10mg TID PRN - [place] 10mg q4 PRN - lidocaine patch daily - avoid IV ketorelac and NSAIDs with starting lithium - heating packs Assessment & Plan (05/02/2020 11:56 AM DIRECTOR FINANCIAL PLANNING): - flexeril 10mg TID PRN - [place] 10mg q4 PRN - lidocaine patch daily - avoid IV ketorelac and NSAIDs with starting lithium - heating packs Assessment & Plan (05/01/2020 10:58 AM DIRECTOR FINANCIAL PLANNING): - flexeril 10mg TID PRN - NORCO 10mg q4 PRN - lidocaine patch daily - avoid IV ketorelac and NSAIDs with starting lithium - heating pads Assessment & Plan (04/30/2020 12:17 PM DIRECTOR FINANCIAL PLANNING): - flexeril 10mg TID PRN - NORCO 10mg q4 PRN - lidocaine patch daily - avoid IV ketorelac and NSAIDs with starting lithium - heating pads Assessment & Plan (04/28/2020 8:01 AM DIRECTOR FINANCIAL PLANNING): - flexeril 10mg TID PRN - NORCO 10mg q4 PRN - lidocaine patch daily - avoid IV ketorelac and NSAIDs with starting lithium - heating pads Assessment & Plan (04/27/2020 8:47 AM DIRECTOR FINANCIAL PLANNING): - flexeril 10mg TID PRN - NORCO 10mg q4 PRN - lidocaine patch daily - avoid IV ketorelac and NSAIDs given ADILENE - heating pads Assessment & Plan (04/26/2020 10:11 AM DIRECTOR FINANCIAL PLANNING): - flexeril 10mg TID PRN - NOR[place] 10mg q4 PRN - lidocaine patch daily - avoid IV ketorelac and NSAIDs given ADILENE - heating pads Assessment & Plan (04/25/2020 9:45 AM DIRECTOR FINANCIAL PLANNING): - flexeril 10mg TID PRN - NOR[place] 10mg q4 PRN - lidocaine patch daily - avoid IV ketorelac and NSAIDs given ADILENE - heating pads Assessment & Plan (04/24/2020 9:49 AM DIRECTOR FINANCIAL PLANNING): - flexeril 10mg TID PRN - [place] 10mg q4 PRN - lidocaine patch daily - avoid IV ketorelac and NSAIDs given [place]ILENE - heating pads Assessment & Plan (04/23/2020 10:21 AM DIRECTOR FINANCIAL PLANNING): - flexeril 10mg TID PRN - NORCO 10mg q4 PRN - lidocaine patch daily - avoid IV ketorelac and NSAIDs given ADILENE - heating pads Assessment & Plan (04/21/2020 8:38 AM DIRECTOR FINANCIAL PLANNING): - flexeril 10mg TID PRN - NORCO 10mg q4 PRN - lidocaine patch daily - avoid IV ketorelac and NSAIDs given ADILENE - heating pads Assessment & Plan (04/20/2020 12:05 PM DIRECTOR FINANCIAL PLANNING): - flexeril 10mg TID PRN - NOR[place] 10mg q4 PRN - lidocaine patch daily - avoid IV ketorelac and NSAIDs given ADILENE - heating pads Assessment & Plan (04/19/2020 9:46 AM DIRECTOR FINANCIAL PLANNING): - flexeril 10mg TID PRN - [place] 10mg q4 PRN - lidocaine patch daily - avoid IV ketorelac and NSAIDs given ADILENE - heating pads Assessment & Plan (04/18/2020 10:09 AM DIRECTOR FINANCIAL PLANNING): - flexeril 10mg TID PRN - NORCO 10mg q4 PRN - lidocaine patch daily - avoid IV ketorelac and NSAIDs given ADILENE - heating pads Assessment & Plan (04/17/2020 9:31 AM DIRECTOR FINANCIAL PLANNING): - flexeril 10mg TID PRN - NOR[place] 10mg q4 PRN - lidocaine patch daily - avoid IV ketorelac and NSAIDs given ADILENE - heating pads Assessment & Plan (04/16/2020 11:51 AM DIRECTOR FINANCIAL PLANNING): - flexeril 10mg TID PRN - NORCO 10mg q4 PRN - lidocaine patch daily - avoid IV ketorelac and NSAIDs given ADILENE - heating pads Assessment & Plan (04/14/2020 9:57 AM DIRECTOR FINANCIAL PLANNING): - flexeril 10mg TID PRN - NORCO 10mg q4 PRN - lidocaine patch daily - avoid IV ketorelac and NSAIDs given ADILENE - heating pads Assessment & Plan (04/10/2020 10:04 PM DIRECTOR FINANCIAL PLANNING): - flexeril 10mg TID PRN - NORCO 10mg q4 PRN - lidocaine patch daily - avoid IV ketorelac and NSAIDs given ADILENE - heating pads Assessment & Plan (04/08/2020 3:23 PM DIRECTOR FINANCIAL PLANNING): Patient endorsing exacerbation of chronic back pain [...] -PT Assessment & Plan (04/07/2020 6:23 AM DIRECTOR FINANCIAL PLANNING): Patient endorsing exacerbation of chronic back pain and left ankle pain (had previous traumatic injury, required surgery). No other red flag symptoms/signs. Reports he has received injections in the past -Continue PRN norco, flexeril -Lidocaine patch to back -PT Depressive disorder 04/03/2020 Assessment & Plan (05/04/2020 12:54 PM DIRECTOR FINANCIAL PLANNING): 54yo M with reported history of bipolar [...] more bright. Plan to discharge patient 05/04. Bronson augmentation started with moderate improvements seen in depressive symptoms with ECT, titrated to 300 mg BID with level 0.6. - Continue OLANZapine, 20 mg, oral, Nightly, for depression - Continue Venlafaxine XR 150 mg PO daily, for depression - Continue lithium to 300 mg BID - Bronson level 0.6 on 05/03 - This is [...] 05/04 Assessment & Plan (05/03/2020 9:56 AM DIRECTOR FINANCIAL PLANNING): 54yo M with reported history of bipolar [...] more bright. Plan to discharge patient 05/04. Bronson augmentation started with moderate improvements seen in depressive symptoms with ECT, titrated to 300 mg BID with level 0.6. - Continue OLANZapine, 20 mg, oral, Nightly, for depression - Continue Venlafaxine XR 150 mg PO daily, for depression - Continue lithium to 300 mg BID - Bronson level 0.6 on 05/03 - This is [...] permission) Assessment & Plan (05/02/2020 11:56 AM DIRECTOR FINANCIAL PLANNING): 54yo M with reported history of bipolar [...] permission) Assessment & Plan (05/01/2020 10:58 AM DIRECTOR FINANCIAL PLANNING): 54yo M with reported history of bipolar [...] family Assessment & Plan (04/30/2020 12:17 PM DIRECTOR FINANCIAL PLANNING): 54yo M with reported history of bipolar [...] family Assessment & Plan (04/28/2020 8:02 AM DIRECTOR FINANCIAL PLANNING): 54yo M with reported history of bipolar [...] - Start lithium 300mg nightly - ECT MWF, restarted 04/13, for refractory depression Assessment & Plan (04/27/2020 8:47 AM DIRECTOR FINANCIAL PLANNING): 54yo M with reported history of bipolar [...] depression Assessment & Plan (04/26/2020 10:11 AM DIRECTOR FINANCIAL PLANNING): 54yo M with reported history of bipolar [...] depression Assessment & Plan (04/25/2020 9:47 AM DIRECTOR FINANCIAL PLANNING): 54yo M with reported history of bipolar [...] depression Assessment & Plan (04/24/2020 9:48 AM DIRECTOR FINANCIAL PLANNING): 54yo M with reported history of bipolar [...] depression Assessment & Plan (04/23/2020 10:21 AM DIRECTOR FINANCIAL PLANNING): 54yo M with reported history of bipolar [...] medication changes and addition of lithium on 2 if patient does not improve with further [...] depression Assessment & Plan (04/21/2020 8:36 AM DIRECTOR FINANCIAL PLANNING): 54yo M with reported history of bipolar [...] depression Assessment & Plan (04/20/2020 12:05 PM DIRECTOR FINANCIAL PLANNING): 54yo M with reported history of bipolar [...] depression Assessment & Plan (04/19/2020 9:48 AM DIRECTOR FINANCIAL PLANNING): 54yo M with reported history of bipolar [...] depression Assessment & Plan (04/18/2020 10:08 AM DIRECTOR FINANCIAL PLANNING): 54yo M with reported history of bipolar [...] depression Assessment & Plan (04/17/2020 9:32 AM DIRECTOR FINANCIAL PLANNING): 54yo M with reported history of bipolar [...] depression Assessment & Plan (04/16/2020 11:49 AM DIRECTOR FINANCIAL PLANNING): 54yo M with reported history of bipolar [...] depression Assessment & Plan (04/14/2020 9:56 AM DIRECTOR FINANCIAL PLANNING): 54yo M with reported history of bipolar [...] depression Assessment & Plan (04/13/2020 9:46 AM DIRECTOR FINANCIAL PLANNING): 54yo M with reported history of bipolar [...] for ECT by cardiology, no diagnosis of ischemia/MD, no focal wall movement abnormalities on echo, [...] procedure Assessment & Plan (04/10/2020 3:25 PM DIRECTOR FINANCIAL PLANNING): Presented to ED 04/02 with suicidal ideation, depression. Initially admitted to psychiatry for medication adjustment, received ECT x1 04/06 -Continue current meds: lexapro 5, effexor 112.5, olanzapine 20mg QHS - If COVID test is negative, transfer to Psychiatry floor. Assessment & Plan (04/08/2020 3:24 PM DIRECTOR FINANCIAL PLANNING): Presented to ED 04/02 with suicidal ideation, depression. Initially admitted to psychiatry for medication adjustment, received ECT x1 04/06 -Psych consulted upon transfer to medicine but are following only peripherally over the weekend -Continue current meds: lexapro 5, effexor 112.5, olanzapine 20mg QHS -Psychiatry recommending discontinuing suicide precautions with 1:1 sitter Assessment & Plan (04/07/2020 6:14 AM DIRECTOR FINANCIAL PLANNING): Presented to ED 04/02 with suicidal ideation, depression. Initially admitted to psychiatry for medication adjustment, received ECT x1 04/06 -Psych c/s upon transfer -Continue current meds: lexapro 5, effexor 112.5, olanzapine 20mg QHS -Suicide precautions, 1:1 sitter Assessment & Plan (04/12/2020 9:11 AM DIRECTOR FINANCIAL PLANNING): 54yo M with reported history of bipolar [...] for ECT by cardiology, no diagnosis of ischemia/MD, no focal wall movement abnormalities on echo, [...] midnight Assessment & Plan (04/03/2020 2:04 PM DIRECTOR FINANCIAL PLANNING): 54yo M with reported history of bipolar [...] interested in ECT, will facilitate transfer to [facility] to facilitate ECT consult Uptitrate SSRI and otherwise continue home depakote and zyprexa (pt reports taking these medications daily for past several yrs) PRNs agitation and comfort Milieu, supportive, and group therapy Apprec SW intervention Obtain collateral Full code Dispo: home with GERD (gastroesophageal reflux disease) Assessment & Plan (05/04/2020 12:54 PM DIRECTOR FINANCIAL PLANNING): Patient has a long history of GERD. - Protonix 40 mg daily Assessment & Plan (05/03/2020 9:56 AM DIRECTOR FINANCIAL PLANNING): Patient has a long history of GERD. - Protonix 40 mg daily Assessment & Plan (05/02/2020 11:57 AM DIRECTOR FINANCIAL PLANNING): Patient has a long history of GERD. - Protonix 40 mg daily Assessment & Plan (05/01/2020 10:58 AM DIRECTOR FINANCIAL PLANNING): Patient has a long history of GERD. - Protonix 40 mg daily Assessment & Plan (04/30/2020 12:17 PM DIRECTOR FINANCIAL PLANNING): Patient has a long history of GERD. - Protonix 40 mg daily Assessment & Plan (04/28/2020 8:00 AM DIRECTOR FINANCIAL PLANNING): Patient has a long history of GERD. -Protonix 40 mg daily Assessment & Plan (04/27/2020 8:47 AM DIRECTOR FINANCIAL PLANNING): Patient has a long history of GERD. -Protonix 40 mg daily Assessment & Plan (04/26/2020 10:11 AM DIRECTOR FINANCIAL PLANNING): Patient has a long history of GERD. -Protonix 40 mg daily Assessment & Plan (04/25/2020 9:45 AM DIRECTOR FINANCIAL PLANNING): Patient has a long history of GERD. -Protonix 40 mg daily Assessment & Plan (04/24/2020 9:48 AM DIRECTOR FINANCIAL PLANNING): Patient has a long history of GERD. -Protonix 40 mg daily Assessment & Plan (04/23/2020 10:21 AM DIRECTOR FINANCIAL PLANNING): Patient has a long history of GERD. -Protonix 40 mg daily Assessment & Plan (04/21/2020 8:37 AM DIRECTOR FINANCIAL PLANNING): Patient has a long history of GERD. -Protonix 40 mg daily Assessment & Plan (04/20/2020 12:05 PM DIRECTOR FINANCIAL PLANNING): Patient has a long history of GERD. -Protonix 40 mg daily Assessment & Plan (04/19/2020 9:46 AM DIRECTOR FINANCIAL PLANNING): Patient has a long history of GERD. -Protonix 40 mg daily Assessment & Plan (04/18/2020 10:09 AM DIRECTOR FINANCIAL PLANNING): Patient has a long history of GERD. -Protonix 40 mg daily Assessment & Plan (04/17/2020 9:31 AM DIRECTOR FINANCIAL PLANNING): Patient has a long history of GERD. -Protonix 40 mg daily Assessment & Plan (04/16/2020 11:51 AM DIRECTOR FINANCIAL PLANNING): Patient has a long history of GERD. -Protonix 40 mg daily Assessment & Plan (04/14/2020 9:56 AM DIRECTOR FINANCIAL PLANNING): Patient has a long history of GERD. -Protonix 40 mg daily Assessment & Plan (04/10/2020 3:25 PM DIRECTOR FINANCIAL PLANNING): Continue pantoprazole Assessment & Plan (04/08/2020 3:17 PM DIRECTOR FINANCIAL PLANNING): Continue pantoprazole Assessment & Plan (04/07/2020 6:15 AM DIRECTOR FINANCIAL PLANNING): Continue pantoprazole Assessment & Plan (04/03/2020 5:54 PM DIRECTOR FINANCIAL PLANNING): Patient has a long history of GERD. -Protonix 40 mg daily Hypothyroidism 04/03/2020 Assessment & Plan (05/04/2020 12:54 PM DIRECTOR FINANCIAL PLANNING): Patient carries a diagnosis of hypothyroidism for several years. He is currently treated on levothyroxine 75 mcg daily. - Repeat TFT tests in 6 weeks - continue levothyroxine 75 mcg daily Assessment & Plan (05/03/2020 9:56 AM DIRECTOR FINANCIAL PLANNING): Patient carries a diagnosis of hypothyroidism for several years. He is currently treated on levothyroxine 75 mcg daily. - Repeat TFT tests in 6 weeks - continue levothyroxine 75 mcg daily Assessment & Plan (05/02/2020 11:57 AM DIRECTOR FINANCIAL PLANNING): Patient carries a diagnosis of hyperthyroidism for several years. He is currently treated on levothyroxine 75 mcg daily. - Repeat TFT tests in 6 weeks - continue levothyroxine 75 mcg daily Assessment & Plan (05/01/2020 10:58 AM DIRECTOR FINANCIAL PLANNING): Patient carries a diagnosis of hyperthyroidism for several years. He is currently treated on levothyroxine 75 mcg daily. - Repeat TFT tests in 6 weeks - continue levothyroxine 75 mcg daily Assessment & Plan (04/30/2020 12:17 PM DIRECTOR FINANCIAL PLANNING): Patient carries a diagnosis of hyperthyroidism for several years. He is currently treated on levothyroxine 75 mcg daily. - Repeat TFT tests in 6 weeks - continue levothyroxine 75 mcg daily Assessment & Plan (04/28/2020 8:00 AM DIRECTOR FINANCIAL PLANNING): Patient carries a diagnosis of hyperthyroidism for several years. He is currently treated on levothyroxine 75 mcg daily. - Repeat TFT tests in 6 weeks - continue levothyroxine 75 mcg daily Assessment & Plan (04/27/2020 8:47 AM DIRECTOR FINANCIAL PLANNING): Patient carries a diagnosis of hyperthyroidism for several years. He is currently treated on levothyroxine 75 mcg daily. - Repeat TFT tests in 6 weeks - continue levothyroxine 75 mcg daily Assessment & Plan (04/26/2020 10:11 AM DIRECTOR FINANCIAL PLANNING): Patient carries a diagnosis of hyperthyroidism for several years. He is currently treated on levothyroxine 75 mcg daily. - Repeat TFT tests in 6 weeks - continue levothyroxine 75 mcg daily Assessment & Plan (04/25/2020 9:45 AM DIRECTOR FINANCIAL PLANNING): Patient carries a diagnosis of hyperthyroidism for several years. He is currently treated on levothyroxine 75 mcg daily. - Repeat TFT tests in 6 weeks - continue levothyroxine 75 mcg daily Assessment & Plan (04/24/2020 9:48 AM DIRECTOR FINANCIAL PLANNING): Patient carries a diagnosis of hyperthyroidism for several years. He is currently treated on levothyroxine 75 mcg daily. - Repeat TFT tests in 6 weeks - continue levothyroxine 75 mcg daily Assessment & Plan (04/23/2020 10:21 AM DIRECTOR FINANCIAL PLANNING): Patient carries a diagnosis of hyperthyroidism for several years. He is currently treated on levothyroxine 75 mcg daily. - Repeat TFT tests in 6 weeks - continue levothyroxine 75 mcg daily Assessment & Plan (04/21/2020 8:37 AM DIRECTOR FINANCIAL PLANNING): Patient carries a diagnosis of hyperthyroidism for several years. He is currently treated on levothyroxine 75 mcg daily. - Repeat TFT tests in 6 weeks - continue levothyroxine 75 mcg daily Assessment & Plan (04/20/2020 12:05 PM DIRECTOR FINANCIAL PLANNING): Patient carries a diagnosis of hyperthyroidism for several years. He is currently treated on levothyroxine 75 mcg daily. - Repeat TFT tests in 6 weeks - continue levothyroxine 75 mcg daily Assessment & Plan (04/19/2020 9:46 AM DIRECTOR FINANCIAL PLANNING): Patient carries a diagnosis of hyperthyroidism for several years. He is currently treated on levothyroxine 75 mcg daily. - Repeat TFT tests in 6 weeks - continue levothyroxine 75 mcg daily Assessment & Plan (04/18/2020 10:09 AM DIRECTOR FINANCIAL PLANNING): Patient carries a diagnosis of hyperthyroidism for several years. He is currently treated on levothyroxine 75 mcg daily. - Repeat TFT tests in 6 weeks - continue levothyroxine 75 mcg daily Assessment & Plan (04/17/2020 9:31 AM DIRECTOR FINANCIAL PLANNING): Patient carries a diagnosis of hyperthyroidism for several years. He is currently treated on levothyroxine 75 mcg daily. - Repeat TFT tests in 6 weeks - continue levothyroxine 75 mcg daily Assessment & Plan (04/16/2020 11:51 AM DIRECTOR FINANCIAL PLANNING): Patient carries a diagnosis of hyperthyroidism for several years. He is currently treated on levothyroxine 75 mcg daily. - Repeat TFT tests in 6 weeks - continue levothyroxine 75 mcg daily Assessment & Plan (04/14/2020 9:57 AM DIRECTOR FINANCIAL PLANNING): Patient carries a diagnosis of hyperthyroidism for several years. He is currently treated on levothyroxine 75 mcg daily. - Repeat TFT tests in 6 weeks - continue levothyroxine 75 mcg daily Assessment & Plan (04/10/2020 3:25 PM DIRECTOR FINANCIAL PLANNING): 04/02: TSH 6.49, T4 WNL at 1.38 Continue synthroid 75mcg; repeat TFTs 6-8 weeks Assessment & Plan (04/08/2020 3:17 PM DIRECTOR FINANCIAL PLANNING): 04/02: TSH 6.49, T4 WNL at 1.38 Continue synthroid 75mcg; repeat TFTs 6-8 weeks Assessment & Plan (04/07/2020 6:16 AM DIRECTOR FINANCIAL PLANNING): 04/02: TSH 6.49, T4 WNL at 1.38 Continue synthroid 75mcg; repeat TFTs 6-8 weeks Assessment & Plan (04/10/2020 9:35 PM DIRECTOR FINANCIAL PLANNING): Patient carries a diagnosis of hyperthyroidism for several years. He is currently treated on levothyroxine 75 mcg daily. - Repeat TFT tests in 6 weeks - continue levothyroxine 75 mcg daily Hyperlipemia 04/03/2020 Assessment & Plan (05/04/2020 12:55 PM DIRECTOR FINANCIAL PLANNING): Has a stated history of hyperlipidemia has been stably treated with atorvastatin 40 mg daily for many years. Patient's LDL low on lipid panel. Notable elevated triglycerides but not fasting sample. - atorvastatin 40 mg daily - fenofibrate 145mg daily Assessment & Plan (05/03/2020 9:56 AM DIRECTOR FINANCIAL PLANNING): Has a stated history of hyperlipidemia has been stably treated with atorvastatin 40 mg daily for many years. Patient's LDL low on lipid panel. Notable elevated triglycerides but not fasting sample. - atorvastatin 40 mg daily - fenofibrate 145mg daily Assessment & Plan (05/02/2020 11:57 AM DIRECTOR FINANCIAL PLANNING): Has a stated history of hyperlipidemia has been stably treated with atorvastatin 40 mg daily for many years. Patient's LDL low on lipid panel. Notable elevated triglycerides but not fasting sample. - atorvastatin 40 mg daily - fenofibrate 145mg daily Assessment & Plan (05/01/2020 10:58 AM DIRECTOR FINANCIAL PLANNING): Has a stated history of hyperlipidemia has been stably treated with atorvastatin 40 mg daily for many years. Patient's LDL low on lipid panel. Notable elevated triglycerides but not fasting sample. - atorvastatin 40 mg daily - tricor 145mg daily Assessment & Plan (04/30/2020 12:17 PM DIRECTOR FINANCIAL PLANNING): Has a stated history of hyperlipidemia has been stably treated with atorvastatin 40 mg daily for many years. Patient's LDL low on lipid panel. Notable elevated triglycerides but not fasting sample. - atorvastatin 40 mg daily - tricor 145mg daily Assessment & Plan (04/28/2020 8:01 AM DIRECTOR FINANCIAL PLANNING): Has a stated history of hyperlipidemia has been stably treated with atorvastatin 40 mg daily for many years. Patient's LDL low on lipid panel. Notable elevated triglycerides but not fasting sample. - atorvastatin 40 mg daily - tricor 145mg daily Assessment & Plan (04/27/2020 8:47 AM DIRECTOR FINANCIAL PLANNING): Has a stated history of hyperlipidemia has been stably treated with atorvastatin 40 mg daily for many years. Patient's LDL low on lipid panel. Notable elevated triglycerides but not fasting sample. - atorvastatin 40 mg daily - tricor 145mg daily Assessment & Plan (04/26/2020 10:11 AM DIRECTOR FINANCIAL PLANNING): Has a stated history of hyperlipidemia has been stably treated with atorvastatin 40 mg daily for many years. Patient's LDL low on lipid panel. Notable elevated triglycerides but not fasting sample. - atorvastatin 40 mg daily - tricor 145mg daily Assessment & Plan (04/25/2020 9:45 AM DIRECTOR FINANCIAL PLANNING): Has a stated history of hyperlipidemia has [...] daily Assessment & Plan (04/24/2020 9:48 AM DIRECTOR FINANCIAL PLANNING): Has a stated history of hyperlipidemia has [...] daily Assessment & Plan (04/23/2020 10:21 AM DIRECTOR FINANCIAL PLANNING): Has a stated history of hyperlipidemia has [...] daily Assessment & Plan (04/21/2020 8:38 AM DIRECTOR FINANCIAL PLANNING): Has a stated history of hyperlipidemia has [...] daily Assessment & Plan (04/20/2020 12:05 PM DIRECTOR FINANCIAL PLANNING): Has a stated history of hyperlipidemia has [...] daily Assessment & Plan (04/19/2020 9:46 AM DIRECTOR FINANCIAL PLANNING): Has a stated history of hyperlipidemia has [...] daily Assessment & Plan (04/18/2020 10:09 AM DIRECTOR FINANCIAL PLANNING): Has a stated history of hyperlipidemia has [...] daily Assessment & Plan (04/17/2020 9:31 AM DIRECTOR FINANCIAL PLANNING): Has a stated history of hyperlipidemia has [...] daily Assessment & Plan (04/16/2020 11:51 AM DIRECTOR FINANCIAL PLANNING): Has a stated history of hyperlipidemia has [...] daily Assessment & Plan (04/14/2020 9:56 AM DIRECTOR FINANCIAL PLANNING): Has a stated history of hyperlipidemia has [...] daily Assessment & Plan (04/13/2020 9:46 AM DIRECTOR FINANCIAL PLANNING): Has a stated history of hyperlipidemia has [...] daily Assessment & Plan (04/10/2020 3:25 PM DIRECTOR FINANCIAL PLANNING): Continue atorvastatin 40 Assessment & Plan (04/08/2020 3:17 PM DIRECTOR FINANCIAL PLANNING): Continue atorvastatin 40 Assessment & Plan (04/07/2020 6:15 AM DIRECTOR FINANCIAL PLANNING): Continue atorvastatin 40 Assessment & Plan (04/12/2020 9:03 AM DIRECTOR FINANCIAL PLANNING): Has a stated history of hyperlipidemia has [...] (08/31/2018): Added automatically from request for surgery [id number] Assessment & Plan (09/06/2018 12:49 PM CDT): [...] 04/10/2020 Assessment & Plan (05/04/2020 12:55 PM DIRECTOR FINANCIAL PLANNING): Cr 1.3 -> 1.22 resolving. Baseline <1. - encourage fluids - avoid nephrotoxic meds Assessment & Plan (05/03/2020 9:56 AM DIRECTOR FINANCIAL PLANNING): Cr 1.3 -> 1.22 resolving. Baseline <1. - encourage fluids - avoid nephrotoxic meds Assessment & Plan (05/02/2020 11:57 AM DIRECTOR FINANCIAL PLANNING): Cr 1.3 -> 1.22 resolving. Baseline <1. - encourage fluids - avoid nephrotoxic meds Assessment & Plan (05/01/2020 10:58 AM DIRECTOR FINANCIAL PLANNING): Cr 1.3 -> 1.22 resolving. Baseline <1. - encourage fluids - avoid nephrotoxic meds Assessment & Plan (04/19/2020 9:46 AM DIRECTOR FINANCIAL PLANNING): Cr 1.3 -> 1.22 resolving. Baseline <1. - encourage fluids - avoid nephrotoxic meds Assessment & Plan (04/18/2020 10:09 AM DIRECTOR FINANCIAL PLANNING): Cr 1.3 -> 1.22 resolving. Baseline <1. - encourage fluids - avoid nephrotoxic meds Assessment & Plan (04/16/2020 11:51 AM DIRECTOR FINANCIAL PLANNING): Cr 1.3 -> 1.22 resolving. Baseline <1. - encourage fluids - avoid nephrotoxic meds Assessment & Plan (04/14/2020 9:57 AM DIRECTOR FINANCIAL PLANNING): Cr 1.3 -> 1.22 resolving. Baseline <1. - encourage fluids - avoid nephrotoxic meds Assessment & Plan (04/13/2020 9:47 AM DIRECTOR FINANCIAL PLANNING): Cr 1.3 -> 1.22 resolving. Baseline <1. - encourage fluids - avoid nephrotoxic meds Assessment & Plan (04/12/2020 9:04 AM DIRECTOR FINANCIAL PLANNING): Cr 1.3 -> 1.22 resolving. Baseline <1. - encourage fluids - avoid nephrotoxic meds Diarrhea 04/10/2020 04/20/2020 Assessment & Plan (05/04/2020 12:55 PM DIRECTOR FINANCIAL PLANNING): Patient recently had constipation, was treated with BID miralax and senna- docusate. Was having diarrhea last week so scheduled bowel regimen discontinued. - discontinued daily senna-docusate - miralax PRN Assessment & Plan (05/03/2020 9:56 AM DIRECTOR FINANCIAL PLANNING): Patient recently had constipation, was treated with BID miralax and senna- docusate. Was having diarrhea last week so scheduled bowel regimen discontinued. - discontinued daily senna-docusate - miralax PRN Assessment & Plan (05/01/2020 10:59 AM DIRECTOR FINANCIAL PLANNING): Patient recently had constipation, was treated with BID miralax and senna- docusate. Was having diarrhea last week so scheduled bowel regimen discontinued. - discontinued daily senna-docusate - miralax PRN Assessment & Plan (04/19/2020 9:47 AM DIRECTOR FINANCIAL PLANNING): Patient recently had constipation, was treated with BID miralax and senna- docusate. Was having diarrhea last week so scheduled bowel regimen discontinued. - discontinued daily senna-docusate - miralax PRN Assessment & Plan (04/16/2020 11:52 AM DIRECTOR FINANCIAL PLANNING): Patient recently had constipation, was treated with BID miralax and senna- docusate. Was having diarrhea last week so scheduled bowel regimen discontinued. - discontinue daily senna-docusate - miralax PRN Assessment & Plan (04/14/2020 9:57 AM DIRECTOR FINANCIAL PLANNING): Patient recently had constipation, was treated with BID miralax and senna- docusate. Endorsing nonbloody diarrhea for last 2 days. - discontinue daily senna-docusate - miralax PRN Assessment & Plan (04/10/2020 10:09 PM DIRECTOR FINANCIAL PLANNING): Patient recently had constipation, was treated with BID miralax and senna- docusate. Endorsing nonbloody diarrhea for last 2 days. - discontinue daily senna-docusate - miralax PRN Ventral hernia without obstr uction or gangrene 08/31/2018 04/20/2020 Overview (08/31/2018): Added automatically from request for surgery [id number] Assessment & Plan (09/06/2018 12:51 PM CDT): The procedure along with the risks, benefits, and post operative period were discussed with the patient and his significant other who agree. Fracture of navicular bone of foot 05/16/2015 04/20/2020 Immunizations Immunization Administration Dates Next Due Influenza, Quadrivalent, Spl it, Intramuscular 01/09/2020,01/09/2020,01/06/2019,01/06,01/06/2019,01/07/2017,01/07/2017 ,01/07/2017,02/05/2015,02/05/2015,01/21 Influenza, Quadrivalent, Spl it, Preservative Free, Intramuscular 01/03/2019,01/28/2018,01/28/2018,01/28,01/05/2014 Influenza, Trivalent, IM (MDV) 03/08/2015,2014 Influenza, Unspecified 01/03/2020,01/03/2020, Pneumococcal Polysaccharide PPV23 03/08/2015,,03/08/2015 ZOSTER Recombinant 08/28/2020 Zoster, unspecified 08/28/2020 Social History Tobacco Use Types Packs/Day Years Used Date Smoking Tobacco: Former Cigarettes 0.5 23 1 985 - 2007 Smokeless Tobacco: Never Tobacco Cessation:Counseling Given: Not [...] week 02/01/2021 How often do you attend chur ch or sabianist services? More than 4 times per year 02/01/2021 Do you belong to any clubs o r organizations such as pentecostalism groups, unions, fraternal or athletic groups, or [...] Date Recorded PHQ-2 Total Score 4 04/03/2020 [facility] - Occupational Stress [...] place to sleep or slept in a jail (including now)? No 02/01/2021 Personal Safety Answer Date Recorded Have you ever been in or are you currently in a harmful physical or emotional relationship or is someone making you feel afraid or unsafe? Denies 03/11/2024 Sex and Gender Information Value Date Recorded Sex Assigned at Not on file Legal Sex Male 3:25 AM DIRECTOR FINANCIAL PLANNING Gender Identity Male 03/26/2021 11:53 AM DIRECTOR FINANCIAL PLANNING Sexual Orientation Choose not to disclose 2021 11:53 AM DIRECTOR FINANCIAL PLANNING Occupation Industry Job Start Date Job End Date disabled Not on file Not on file Not on file Last Filed Vital Signs Vital Sign Reading Time Taken Comments Blood Pressure 126/74 04/06/2024 9:02 AM DIRECTOR FINANCIAL PLANNING Pulse 68 04/06/2024 9:02 AM DIRECTOR FINANCIAL PLANNING Temperature 36.2 C (97.1 F) 04/06/2024 9:02 AM DIRECTOR FINANCIAL PLANNING Respiratory Rate 16 03/11/2024 4:45 PM DIRECTOR FINANCIAL PLANNING Oxygen Saturation 95% 04/06/2024 9:02 AM DIRECTOR FINANCIAL PLANNING Inhaled Oxygen Concentration - - Weight 97.3 kg (214 lb 9.6 oz) 04/06/2024 9:02 A M DIRECTOR FINANCIAL PLANNING Height 182.9 cm (6') 04/06/2024 9:02 AM DIRECTOR FINANCIAL PLANNING Body Mass Index 29.1 04/06/2024 9:02 AM DIRECTOR FINANCIAL PLANNING Plan of Treatment Not on file Medical Devices Implanted Type Area Director Airport Device Identifier Shelf Expiration Date Model / Serial / Lot [employer]/C R Bard [id number] Ventralight St Sepra 4.5in Uncoated Monofilament Lightweight - [id number] Implanted:Qty: 1 on 09/09/2018 by Xavier Aviles MD at [facility] N/A: Abdomen [employer]/C R Bard 12/19/2019 [id number] / / [id number] Terrajoule [id number] Mini Ignite Power Mix Injectable Graft 4ml Synthetic Tissue - [id number] - [id number] Implanted:Qty: 1 on 01/29/2021 by Don Kevin MD at [facility] Terrajoule 07/08/2023 [id number] / [id number] / Essential Medical [id number] [employer] Unite 7mm 6.5mm 80mm 16mm Cannulated Color Coded Headless - [id number] Implanted:Qty: 1 on 01/29/2021 by Don Kevin MD at [facility] Left: Foot Medline Sal[employer] [id number] / / [employer] [id number] Medline Unite 6.5mm 90mm 16mm Cannulated Color Coded Headless - [id number] Implanted:Qty: 1 on 01/29/2021 by Don Kevin MD at [facility] Left: Foot [employer] [id number] / / [employer] [id number] Screw Bone L50mm Od4.5mm Foot Ankle Cannulated Color Coded Osteotomy - [id number] Implanted:Qty: 1 on 01/29/2021 by Don Kevin MD at [facility] Left: Foot [employer] [id number] / / 20x20 Nitnol Staple Implanted:Qty: 1 on 01/29/2021 by Don Kevin MD at [facility] Left: Foot [employer] Description:[id number] [employer] [id number] Bit 3.3mm Drill Cannulated Ao Quick Connect Color Coded - [id number] Implanted:Qty: 1 on 01/29/2021 by Don Kevin MD at [facility] Left: Foot [employer] [id number] / / Procedures Procedure Name Priority Date/Time Associated Diagnosis Comments PSA SCREEN Routine 12/20/2019 2:31 PM CDT COLONOSCOPY 11/18/2017 7:41 AM CDT from Last 3 Months or Most Recently Relevant to Health Maintenance Results * PSA screen (12/20/2019 2:31 PM CDT) PSA-Total 0.53 <=3.90 ng/mL YULY HUNTER (SAIMA) Comment: Interpretive Data AGE SEX REFERENCE INTERVAL 0 minutes-150 years Female None 0 minutes-49 years Male None 50-59 years Male 0-3.90 60-69 years Male 0-5.40 70-79 years Male 0-6.20 80-150 years Male 0-6.20 Current interpretive data last revised 2018. Testing performed by: [facility], [address] [place] [address], [place]., [address] Blood specimen (specimen) 12/20/2019 2:31 PM CDT 12/20/2019 6:54 PM CDT us Raoul Best MD LAB BLOOD ORDERABLES Final Re sult YULY [facility]) 1 [facility] Department of Laboratories [place], [place] [id number] * COLONOSCOPY (11/18/2017 7:41 AM CDT) Anatomical Region Laterality Modality Other Narrative Procedure Note Alexander Pitts MD - 11/18/2017 7:41 AM CDT [facility] Patient Name: Baljeet Herman Procedure Date: 11/18/2017 7:41 AM Date of : 1965 Admit Type: Outpatient Age: 52 Gender: Male Attending MD: Alexander Pitts MD Room: [facility] ENDOSCOPY ROOM 2 Note Status: Finalized Patient [...] passed under direct vision.The Pediatric Colonoscope PCF-H190L [id number] was introduced through the anus and advanced [...] malignant neoplasm of largeintestine CPT copyright 2017 [employer]. All rights reserved. The codes documented in this report are preliminary and upon director of manufacturing reviewmay be revised to meet current compliance requirements. Recognized by the [place] [employer] for promoting quality in endoscopy Alexander Pitts MD ENDOSCOPY PROCEDURES Final Result from Last 3 Months or Most Recently Relevant to Health Maintenance Insurance MEDICARE IDPA IDAZ [facility] MEDICARE ADVANTAGE [facility] MEDICARE ADVANTAGE IDPA Advance Directives For more information, please contact: [phone] Documents on File Type Date Recorded Patient Community Coordinator For [employer] Expl anation ADVANCE DIRECTIVE 03/10/2019 8:47 AM [employer] * Full Code (Latest Code Status on [...] 9:14 AM 05/11/2020 5:01 AM Care Teams Component Lab Tech Relationship Specialty Start Date End Date Kevin Meyer PA [address] [place] [address] PCP - General 03/23/19 Kevin Meyer PA [address] [place] [address] 03/23/19 Benja Esteban MD [address] [place] [address] Medical Oncologist/Travel Guide Hematology and Oncology 02/28/20
--- OUTSIDE RECORDS SUMMARY | 2024-07-04 09:47 | XMS_ITS ---
Author Organization [facility] Address [address] [place] [address] Phone Care Team Providers Care Connection Worker Name Role Phone Unavailable Unavailable Unavailable Plan of Treatment Referrals To Diagnosis Pain Management TOM BETH MD - [address] [id number] - Other spondylosis, lumbosacral region Note: Bilateral L3, L$, L5 m edial branch blocks (#1) with Fluoroscopy.Hold ASA x 3 days. No Blood Thinners. No PIV/Abx. Last Documented On 2 10:49AM ; [facility] Psychologist Anne Marie Lobo MD Chronic pain s yndrome Note: Evaluation: CBT/OBT fo r Chronic Pain Syndrome, PTSD, Depression w/ Anxiety on meds Last Documented On 2 1:51PM ; [facility] Pain Management [address] [address] - Sacroiliitis, not elsewhere classified Note: Right SI joint steroid injection with fluoroscopy.Not diabetic. No blood thinners. No hold ASA/NSAIDs.F/U in 2 weeks. Last Documented On 3 2:48PM ; [facility] Pain Management TOM BETH MD - [address] [id number] - Pain in left ankle and joints of left foot Note: Left ankle steroid inj ection w/ ultrasound,PErformed same day.F/U in 1 month. Last Documented On 3 2:49PM ; [facility] Pain Management [facility] - [address] [place] [address] - Other spondylosis, lumbosacral region Note: Bilateral L3, L4, L5 m edial branch/dorsal ramus blocks (#1) with fluoroscopy.No blood thinners. Hold ASA x 3 days. not diabetic. No PIV/Abx.Schedule following recovery from left olecranon bursa I&D.F/U in 7-10 days. Last Documented On 3 2:11PM ; [facility] Education and Decision Aids were provided during visit for: Pill Count: Patient did not bring pain medication to appointment for pill count, per policy. Advised in order to continue to safely prescribe opioids, medication must be brought to each appointment Last Documented On 3 3:18PM ; [facility] Pill Count: 74 Appropriate Last Documented On 3 3:18PM ; [facility] Pill Count: Patient did not bring pain medication to appointment for pill count, per policy. Advised in order to continue to safely prescribe opioids, medication must be brought to each appointment Last Documented On 3 9:33AM ; [facility] Pill Count: 74 Appropriate Last Documented On 3 9:33AM ; [facility] Pill Count: Patient did not bring pain medication to appointment for pill count, per policy. Advised in order to continue to safely prescribe opioids, medication must be brought to each appointment Last Documented On 3 1:18PM ; [facility] Pill Count: 74 Appropriate Last Documented On 3 1:18PM ; [facility] Pill Count: Patient did not bring pain medication to appointment for pill count, per policy. Advised in order to continue to safely prescribe opioids, medication must be brought to each appointment Last Documented On 2 8:14AM ; [facility] Pill Count: 74 Appropriate Last Documented On 2 8:18AM ; [facility] Pill Count: Patient did not bring pain medication to appointment for pill count, per policy. Advised in order to continue to safely prescribe opioids, medication must be brought to each appointment Last Documented On 1 9:21AM ; [facility] Assessments Includes: Assessments for all patient encounters Findings Encounter Date Arthralgia of bilateral shou lder region PAIN MANAGEMENT FOLLOW UP with TOM BETH MD 07/02/2022 Last Documented On 3 9:46AM ; [facility] Arthralgia of left ankle PAIN MANAGEMENT FOLLOW UP with TOM BETH MD 07/02/2022 Last Documented On 3 9:46AM ; [facility] Arthralgia of the left ankle/foot PAIN M ANAGEMENT FOLLOW UP with TOM BETH MD 07/02/2022 Last Documented On 3 9:46AM ; [facility] Arthralgia of the left knee/patella/tibia/fibula PAIN MANAGEMENT FOLLOW UP with TOM BETH MD 07/02/2022 Last Documented On 3 9:46AM ; [facility] Arthralgia of the right knee/patella/tibia/fibula PAIN MANAGEMENT FOLLOW UP with TOM BETH MD 07/02/2022 Last Documented On 3 9:46AM ; [facility] Bipolar disorder NOS PAIN MANAGEMENT FOLLOW UP w phillip BETH MD 07/02/2022 Last Documented On 3 9:46AM ; [facility] Cervical postlaminectomy syndrome PAIN M ANAGEMENT FOLLOW UP with TOM BETH MD 07/02/2022 Last Documented On 3 9:46AM ; [facility] Cervical spondylosis PAIN MANAGEMENT FOLLOW UP w phillip BETH MD 07/02/2022 Last Documented On 3 9:46AM ; [facility] Cervicalgia PAIN MANAGEMENT FOLLOW UP with Natalie BETH MD 07/02/2022 Last Documented On 3 9:46AM ; [facility] Cervicothoracic radiculopathy PAIN MANAG EMENT FOLLOW UP with TOM BETH MD 07/02/2022 Last Documented On 3 9:46AM ; [facility] Chronic pain syndrome PAIN MANAGEMENT FOLLOW UP with TOM BETH MD 07/02/2022 Last Documented On 3 9:46AM ; [facility] Chronic post-traumatic stres s disorder following combat PAIN MANAGEMENT FOLLOW UP with TOM BETH MD 07/02/2022 Last Documented On 3 9:46AM ; [facility] DORSALGIA PAIN MANAGEMENT FOLLOW UP with Natalie BETH MD 07/02/2022 Last Documented On 3 9:46AM ; [facility] Drug-induced constipation PAIN MANAGEMENT FOLLOW UP with TOM BETH MD 07/02/2022 Last Documented On 3 9:46AM ; [facility] Hip pain PAIN MANAGEMENT FOLLOW UP with Natalie BETH MD 07/02/2022 Last Documented On 3 9:46AM ; [facility] custodial use of opiate analgesic PAIN M ANAGEMENT FOLLOW UP with TOM BETH MD 07/02/2022 Last Documented On 3 9:46AM ; [facility] Lumbosacral radiculopathy PAIN MANAGEMENT FOLLOW UP with TOM BETH MD 07/02/2022 Last Documented On 3 9:46AM ; [facility] Lumbosacral spondylosis PAIN MANAGEMENT FOLLOW U P with TOM BETH MD 07/02/2022 Last Documented On 3 9:46AM ; [facility] Muscle spasm of back PAIN MANAGEMENT FOLLOW UP w phillip BETH MD 07/02/2022 Last Documented On 3 9:46AM ; [facility] Opioid dependence with continuous use PA IN MANAGEMENT FOLLOW UP with TOM BETH MD 07/02/2022 Last Documented On 3 9:46AM ; [facility] Osteoarthritis of left ankle PAIN MANAGE MENT FOLLOW UP with TOM BETH MD 07/02/2022 Last Documented On 3 9:46AM ; [facility] Right sacroiliitis PAIN MANAGEMENT FOLLOW UP wit donato BETH MD 07/02/2022 Last Documented On 3 9:46AM ; [facility] Arthralgia of bilateral shou lder region PAIN MANAGEMENT FOLLOW UP with TOM BETH MD 05/29/2022 Last Documented On 3 1:45PM ; [facility] Arthralgia of left ankle PAIN MANAGEMENT FOLLOW UP with TOM BETH MD 05/29/2022 Last Documented On 3 1:45PM ; [facility] Arthralgia of the left ankle/foot PAIN M ANAGEMENT FOLLOW UP with TOM BETH MD 05/29/2022 Last Documented On 3 1:45PM ; [facility] Arthralgia of the left knee/patella/tibia/fibula PAIN MANAGEMENT FOLLOW UP with TOM BETH MD 05/29/2022 Last Documented On 3 1:45PM ; [facility] Arthralgia of the right knee/patella/tibia/fibula PAIN MANAGEMENT FOLLOW UP with TOM BETH MD 05/29/2022 Last Documented On 3 1:45PM ; [facility] Bipolar disorder NOS PAIN MANAGEMENT FOLLOW UP w phillip BETH MD 05/29/2022 Last Documented On 3 1:45PM ; [facility] Cervical postlaminectomy syndrome PAIN M ANAGEMENT FOLLOW UP with TOM BETH MD 05/29/2022 Last Documented On 3 1:45PM ; [facility] Cervical spondylosis PAIN MANAGEMENT FOLLOW UP w phillip BETH MD 05/29/2022 Last Documented On 3 1:45PM ; [facility] Cervicalgia PAIN MANAGEMENT FOLLOW UP with Natalie BETH MD 05/29/2022 Last Documented On 3 1:45PM ; [facility] Cervicothoracic radiculopathy PAIN MANAG EMENT FOLLOW UP with TOM BETH MD 05/29/2022 Last Documented On 3 1:45PM ; [facility] Chronic pain syndrome PAIN MANAGEMENT FOLLOW UP with TOM BETH MD 05/29/2022 Last Documented On 3 1:45PM ; [facility] Chronic post-traumatic stres s disorder following combat PAIN MANAGEMENT FOLLOW UP with TOM BETH MD 05/29/2022 Last Documented On 3 1:45PM ; [facility] DORSALGIA PAIN MANAGEMENT FOLLOW UP with Natalie BETH MD 05/29/2022 Last Documented On 3 1:45PM ; [facility] Drug-induced constipation PAIN MANAGEMENT FOLLOW UP with TOM BETH MD 05/29/2022 Last Documented On 3 1:45PM ; [facility] Hip pain PAIN MANAGEMENT FOLLOW UP with Natalie BETH MD 05/29/2022 Last Documented On 3 1:45PM ; [facility] custodial use of opiate analgesic PAIN M ANAGEMENT FOLLOW UP with TOM BETH MD 05/29/2022 Last Documented On 3 1:45PM ; [facility] Lumbosacral radiculopathy PAIN MANAGEMENT FOLLOW UP with TOM BETH MD 05/29/2022 Last Documented On 3 1:45PM ; [facility] Lumbosacral spondylosis PAIN MANAGEMENT FOLLOW U P with TOM BETH MD 05/29/2022 Last Documented On 3 1:45PM ; [facility] Muscle spasm of back PAIN MANAGEMENT FOLLOW UP w phillip BETH MD 05/29/2022 Last Documented On 3 1:45PM ; [facility] Opioid dependence with continuous use PA IN MANAGEMENT FOLLOW UP with TOM BETH MD 05/29/2022 Last Documented On 3 1:45PM ; [facility] Osteoarthritis of left ankle PAIN MANAGE MENT FOLLOW UP with TOM BETH MD 05/29/2022 Last Documented On 3 1:45PM ; [facility] Right sacroiliitis PAIN MANAGEMENT FOLLOW UP vishal BETH MD 05/29/2022 Last Documented On 3 1:45PM ; [facility] Arthralgia of bilateral shou lder region PAIN MANAGEMENT FOLLOW UP with TOM BETH MD 05/01/2022 Last Documented On 3 5:46PM ; [facility] Arthralgia of the left ankle/foot PAIN M ANAGEMENT FOLLOW UP with TOM BETH MD 05/01/2022 Last Documented On 3 5:46PM ; [facility] Arthralgia of the left knee/patella/tibia/fibula PAIN MANAGEMENT FOLLOW UP with TOM BETH MD 05/01/2022 Last Documented On 3 5:46PM ; [facility] Arthralgia of the right knee/patella/tibia/fibula PAIN MANAGEMENT FOLLOW UP with TOM BETH MD 05/01/2022 Last Documented On 3 5:46PM ; [facility] Bipolar disorder NOS PAIN MANAGEMENT FOLLOW UP w phillip BETH MD 05/01/2022 Last Documented On 3 5:46PM ; [facility] Cervical postlaminectomy syndrome PAIN M ANAGEMENT FOLLOW UP with TOM BETH MD 05/01/2022 Last Documented On 3 5:46PM ; [facility] Cervical spondylosis PAIN MANAGEMENT FOLLOW UP w phillip BETH MD 05/01/2022 Last Documented On 3 5:46PM ; [facility] Cervicalgia PAIN MANAGEMENT FOLLOW UP with Natalie BETH MD 05/01/2022 Last Documented On 3 5:46PM ; [facility] Cervicothoracic radiculopathy PAIN MANAG EMENT FOLLOW UP with TOM BETH MD 05/01/2022 Last Documented On 3 5:46PM ; [facility] Chronic pain syndrome PAIN MANAGEMENT FOLLOW UP with TOM BETH MD 05/01/2022 Last Documented On 3 5:46PM ; [facility] Chronic post-traumatic stres s disorder following combat PAIN MANAGEMENT FOLLOW UP with TOM BETH MD 05/01/2022 Last Documented On 3 5:46PM ; [facility] DORSALGIA PAIN MANAGEMENT FOLLOW UP with Natalie BETH MD 05/01/2022 Last Documented On 3 5:46PM ; [facility] Drug-induced constipation PAIN MANAGEMENT FOLLOW UP with TOM BETH MD 05/01/2022 Last Documented On 3 5:46PM ; [facility] Hip pain PAIN MANAGEMENT FOLLOW UP with Natalie BETH MD 05/01/2022 Last Documented On 3 5:46PM ; [facility] 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 PAIN M ANAGEMENT FOLLOW UP with TOM BETH MD 05/01/2022 Last Documented On 3 5:46PM ; [facility] Lumbosacral radiculopathy PAIN MANAGEMENT FOLLOW UP with TOM BETH MD 05/01/2022 Last Documented On 3 5:46PM ; [facility] Lumbosacral spondylosis PAIN MANAGEMENT FOLLOW U P with TOM BETH MD 05/01/2022 Last Documented On 3 5:46PM ; [facility] Muscle spasm of back PAIN MANAGEMENT FOLLOW UP w ith TOM BETH MD 05/01/2022 Last Documented On 3 5:46PM ; [facility] Opioid dependence with continuous use PA IN MANAGEMENT FOLLOW UP with TOM BETH MD 05/01/2022 Last Documented On 3 5:46PM ; [facility] Right sacroiliitis PAIN MANAGEMENT FOLLOW UP wit h TOM BETH MD 05/01/2022 Last Documented On 3 5:46PM ; [facility] Arthralgia of bilateral shou lder region PAIN MANAGEMENT FOLLOW UP with TOM BETH MD 04/11/2021 Last Documented On 2 9:22AM ; [facility] Arthralgia of the left ankle/foot PAIN M ANAGEMENT FOLLOW UP with TOM BETH MD 04/11/2021 Last Documented On 2 9:22AM ; [facility] Arthralgia of the left knee/patella/tibia/fibula PAIN MANAGEMENT FOLLOW UP with TOM BETH MD 04/11/2021 Last Documented On 2 9:22AM ; [facility] Arthralgia of the right knee/patella/tibia/fibula PAIN MANAGEMENT FOLLOW UP with TOM BETH MD 04/11/2021 Last Documented On 2 9:22AM ; [facility] Bipolar disorder NOS PAIN MANAGEMENT FOLLOW UP w phillip BETH MD 04/11/2021 Last Documented On 2 9:22AM ; [facility] Cervical postlaminectomy syndrome PAIN M ANAGEMENT FOLLOW UP with TOM BETH MD 04/11/2021 Last Documented On 2 9:22AM ; [facility] Cervical spondylosis PAIN MANAGEMENT FOLLOW UP w phillip BETH MD 04/11/2021 Last Documented On 2 9:22AM ; [facility] Cervicalgia PAIN MANAGEMENT FOLLOW UP with Natalie BETH MD 04/11/2021 Last Documented On 2 9:22AM ; [facility] Cervicothoracic radiculopathy PAIN MANAG EMENT FOLLOW UP with TOM BETH MD 04/11/2021 Last Documented On 2 9:22AM ; [facility] Chronic pain syndrome PAIN MANAGEMENT FOLLOW UP with TOM BETH MD 04/11/2021 Last Documented On 2 9:22AM ; [facility] Chronic post-traumatic stres s disorder following combat PAIN MANAGEMENT FOLLOW UP with TOM BETH MD 04/11/2021 Last Documented On 2 9:22AM ; [facility] DORSALGIA PAIN MANAGEMENT FOLLOW UP with Natalie BETH MD 04/11/2021 Last Documented On 2 9:22AM ; [facility] Drug-induced constipation PAIN MANAGEMENT FOLLOW UP with TOM BETH MD 04/11/2021 Last Documented On 2 9:22AM ; [facility] 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 PAIN M ANAGEMENT FOLLOW UP with TOM BETH MD 04/11/2021 Last Documented On 2 9:22AM ; [facility] Lumbosacral radiculopathy PAIN MANAGEMENT FOLLOW UP with TOM BETH MD 04/11/2021 Last Documented On 2 9:22AM ; [facility] Lumbosacral spondylosis PAIN MANAGEMENT FOLLOW U P with TOM BETH MD 04/11/2021 Last Documented On 2 9:22AM ; [facility] Muscle spasm of back PAIN MANAGEMENT FOLLOW UP w phillip BETH MD 04/11/2021 Last Documented On 2 9:22AM ; [facility] Opioid dependence with continuous use PA IN MANAGEMENT FOLLOW UP with TOM BETH MD 04/11/2021 Last Documented On 2 9:22AM ; [facility] Arthralgia of bilateral shou lder region PAIN MANAGEMENT NEW CONSULT with TOM BETH MD 02/28/2021 Last Documented On 1 1:01PM ; [facility] Arthralgia of the left ankle/foot PAIN M ANAGEMENT NEW CONSULT with TOM BETH MD 02/28/2021 Last Documented On 1 1:01PM ; [facility] Arthralgia of the left knee/patella/tibia/fibula PAIN MANAGEMENT NEW CONSULT with TOM BETH MD 02/28/2021 Last Documented On 1 1:01PM ; [facility] Arthralgia of the right knee/patella/tibia/fibula PAIN MANAGEMENT NEW CONSULT with TOM BETH MD 02/28/2021 Last Documented On 1 1:01PM ; [facility] Bipolar disorder NOS PAIN MANAGEMENT NEW CONSULT with TOM BETH MD 02/28/2021 Last Documented On 1 1:01PM ; [facility] Cervical postlaminectomy syndrome PAIN M ANAGEMENT NEW CONSULT with TOM BETH MD 02/28/2021 Last Documented On 1 1:01PM ; [facility] Cervical spondylosis PAIN MANAGEMENT NEW CONSULT with TOM BETH MD 02/28/2021 Last Documented On 1 1:01PM ; [facility] Cervicalgia PAIN MANAGEMENT NEW CONSULT with TOM BETH MD 02/28/2021 Last Documented On 1 1:01PM ; [facility] Cervicothoracic radiculopathy PAIN MANAG EMENT NEW CONSULT with TOM BETH MD 02/28/2021 Last Documented On 1 1:01PM ; [facility] Chronic pain syndrome PAIN MANAGEMENT NEW CONSUL T with TOM BETH MD 02/28/2021 Last Documented On 1 1:01PM ; [facility] Chronic post-traumatic stres s disorder following combat PAIN MANAGEMENT NEW CONSULT with TOM BETH MD 02/28/2021 Last Documented On 1 1:01PM ; [facility] DORSALGIA PAIN MANAGEMENT NEW CONSULT with TOM BETH MD 02/28/2021 Last Documented On 1 1:01PM ; [facility] Drug-induced constipation PAIN MANAGEMEN T NEW CONSULT with TOM BETH MD 02/28/2021 Last Documented On 1 1:01PM ; [facility] custodial use of opiate analgesic PAIN M ANAGEMENT NEW CONSULT with TOM BETH MD 02/28/2021 Last Documented On 1 1:01PM ; [facility] Lumbosacral radiculopathy PAIN MANAGEMEN T NEW CONSULT with TOM BETH MD 02/28/2021 Last Documented On 1 1:01PM ; [facility] Lumbosacral spondylosis PAIN MANAGEMENT NEW CONS ULT with TOM BETH MD 02/28/2021 Last Documented On 1 1:01PM ; [facility] Muscle spasm of back PAIN MANAGEMENT NEW CONSULT with TOM BETH MD 02/28/2021 Last Documented On 1 1:01PM ; [facility] Opioid dependence with continuous use PA IN MANAGEMENT NEW CONSULT with TOM BETH MD 02/28/2021 Last Documented On 1 1:01PM ; [facility] Instructions Includes: Instructions for all patient encounters Education and Decision Aids were provided during visit for: Pill Count: Patient did not bring pain medication to appointment for pill count, per policy. Advised in order to continue to safely prescribe opioids, medication must be brought to each appointment Last Documented On 3 3:18PM ; [facility] Pill Count: 74 Appropriate Last Documented On 3 3:18PM ; [facility] [facility] Pill Count: Patient did not bring pain medication to appointment for pill count, per policy. Advised in order to continue to safely prescribe opioids, medication must be brought to each appointment Last Documented On 3 9:33AM ; [facility] Pill Count: 74 Appropriate Last Documented On 3 9:33AM ; [facility] Pill Count: Patient did not bring pain medication to appointment for pill count, per policy. Advised in order to continue to safely prescribe opioids, medication must be brought to each appointment Last Documented On 3 1:18PM ; [facility] Pill Count: 74 Appropriate Last Documented On 3 1:18PM ; [facility] Pill Count: Patient did not bring pain medication to appointment for pill count, per policy. Advised in order to continue to safely prescribe opioids, medication must be brought to each appointment Last Documented On 2 8:14AM ; [facility] Pill Count: 74 Appropriate Last Documented On 2 8:18AM ; [facility] Pill Count: Patient did not bring pain medication to appointment for pill count, per policy. Advised in order to continue to safely prescribe opioids, medication must be brought to each appointment Last Documented On 1 9:21AM ; [facility] Medical Equipment - Implanted Devices Includes: Current and historical Devices No Medical Equipment Recorded Medications Includes: Current and historical Medications Current Medications (continue as prescribed) Ambien 10 MG Oral Tablet 05/29/2022 Provider: Diagnosis: Last Documented On 05/29/2022 9:44AM By Ar COX ; [facility] Pregabalin 50 MG Oral Capsule 05/01/2022 Provider: Diagnosis: 50mg BID Last Documented On 05/01/2022 1:59PM By Freida Britt RN ; [facility] Rimegepant Sulfate 75 MG Oral Tablet Disintegrating Provider: Diagnosis: 75mg daily prn for migraine [place] Last Documented On 05/01/2022 2:00PM By Freida Britt RN ; [facility] traMADol HCl 50 MG Oral Tablet 05/01/2022 Provider: Diagnosis: 1 tab po q 6 hrs prn Last Documented On 05/01/2022 2:01PM By Freida Britt RN ; [facility] Effexor XR 150 MG Oral Capsule Extended Release 24 Alexandra r 05/01/2022 Provider: Diagnosis: 1 daily Last Documented On 05/01/2022 2:02PM By Freida Britt RN ; [facility] rOPINIRole HCl 1 MG Oral Tablet 05/01/2022 Provider: Diagnosis: TID prn Last Documented On 05/01/2022 2:02PM By Freida Britt RN ; [facility] Prazosin HCl 1 MG Oral Capsule 05/01/2022 Provider: Diagnosis: Last Documented On 05/01/2022 1:59PM By Freida Britt RN ; [facility] QUEtiapine Fumarate 100 MG Oral Tablet 05/01/2022 Pr ovider: Diagnosis: Last Documented On 05/01/2022 1:58PM By Freida Britt RN ; [facility] Cyclobenzaprine HCl 10 MG Oral Tablet 05/01/2022 Pro vider: Diagnosis: 1 tab po TID prn for muscle spasms Last Documented On 05/01/2022 1:58PM By Freida Britt RN ; [facility] Loreev XR 1 MG Oral Capsule ER 24 Hour Sprinkle 2022 Provider: Diagnosis: Last Documented On 05/01/2022 1:35PM By Ar COX ; [facility] Venlafaxine HCl ER 150 MG Or al Capsule Extended Release 24 Hour 02/28/2021 Provider: Diagnosis: Last Documented On 02/28/2021 9:15AM By Ar COX ; [facility] Levothyroxine Sodium 75 MCG Oral Capsule 02/28/2021 Provider: Diagnosis: Last Documented On 02/28/2021 9:14AM By Ar COX ; [facility] Past Medications on file Cyclobenzaprine HCl 10 MG Oral Tablet 06/20/2022 - 06/25/2022 Provider: TOM BETH MD Diagnosis: Dorsalgia, unspecified 1 tab po TID prn for muscle spasms Last Documented On 06/20/2022 12:32PM By Tom Beth MD ; [facility] traZODone HCl 50 MG Oral Tablet 05/01/2022 - Provider: Diagnosis: 1 tab po at HS Last Documented On 05/29/2022 9:44AM By Ar COX ; [facility] HYDROcodone-Acetaminophen 10 -325 MG Oral Tablet 05/02/2021 - 05/01/2022 Provider: TOM BETH MD Diagnosis: Chronic pain syndrome 1 po q 6-8 hours prn/max 2 tabs per 24 hours Last Documented On 05/01/2022 1:36PM By Ar COX ; [facility] HYDROcodone-Acetaminophen 10 -325 MG Oral Tablet 04/02/2021 - 05/01/2021 Provider: JACOB SCHAFER [facility] Diagnosis: Chronic pain syndrome 1 po q 6-8 hours prn/max 3 per 24 hours Last Documented On 05/02/2021 7:22AM By Tom Beth MD ; [facility] Atorvastatin Calcium 40 MG Oral Tablet 02/28/2021 - Provider: Diagnosis: Last Documented On 05/01/2022 1:34PM By Ar COX ; [facility] Cressey Carbonate 300 MG Oral Tablet 02/28/2021 - 11/2022 Provider: Diagnosis: Last Documented On 05/01/2022 1:35PM By Ar COX ; [facility] amLODIPine Besylate 5 MG Oral Tablet 02/28/2021 - 11/2022 Provider: Diagnosis: Last Documented On 05/01/2022 1:34PM By Ar COX ; [facility] Lisinopril 20 MG Oral Tablet 02/28/2021 - 05/01/2022 P rovider: Diagnosis: Last Documented On 05/01/2022 1:35PM By Ar COX ; [facility] Baclofen 10 MG Oral Tablet 02/28/2021 - 05/01/2022 Pro vider: Diagnosis: Last Documented On 05/01/2022 1:34PM By Ar COX ; [facility] HYDROcodone-Acetaminophen 10-325 MG Oral Tablet 02/28/2021 - 05/01/2022 Provider: Diagnosis: 1 every 4 to 6 hrs as needed Last Documented On 05/01/2022 1:34PM By Ar COX ; [facility] LORazepam 1 MG Oral Tablet 02/28/2021 - 05/01/2022 Pro vider: Diagnosis: 1-3 daily as needed Last Documented On 05/01/2022 1:35PM By Ar COX ; [facility] Adult Aspirin EC Low Strengt h 81 MG Oral Tablet Delayed Release 02/28/2021 - 05/01/2022 Provider: Diagnosis: Last Documented On 05/01/2022 1:34PM By Ar COX ; [facility] HYDROcodone-Acetaminophen 10 -325 MG Oral Tablet 02/28/2021 - 04/02/2021 Provider: TOM BETH MD Diagnosis: Chronic pain syndrome One tablet every 4-6 hours f our times a day as needed pain, max 4 per day Last Documented On 2 5:26PM By JACOB SCHAF[facility] ; [facility] OLANZapine 20 MG Oral Tablet 02/28/2021 - 05/01/2022 P rovider: Diagnosis: 1 hs Last Documented On 05/01/2022 1:36PM By Ar COX ; [facility] Medications Administered Includes: Administered Medications in patient's chart Medications Administered Diagnosis Date Pro vider Sensorcaine 0.5% IJ SOLN 05/29/2022 GABINO BETH MD administered by Dr. Beth Last Documented On 3 11:16AM By Candie Parada RN ; [facility] dexAMETHasone Sodium Phosphate 10 MG/ML IJ SOLN 05/29/2022 TOM BETH MD administered by Dr. Beth Last Documented On 3 11:15AM By Candie Parada RN ; [facility] Sodium Chloride 0.9% IJ SOLN 05/29/2022 TOM BETH MD administered by Dr. Beth for local Last Documented On 3 11:14AM By Candie Parada RN ; [facility] Xylocaine 1% IJ SOLN 05/29/2022 TOM BETH MD administered by Dr. Beth for local Last Documented On 3 11:13AM By Candie Parada RN ; [facility] Results Includes: Results from 07/05/2023 through 07/04/2024 No Results Recorded For Specified Dates History of Present Illness History of Present Illness not supported for this document type No History of Present Illness Recorded Social History Description Last Updated Tobacco non-user 02/28/2021 Last Documented On 1 1:01PM ; [facility] No recent change in sleep 02/28/2021 Last Documented On 1 1:01PM ; [facility] [PHQ-2] Patient Health Questionnaire 2 i tem total score: 8 (Scale: 0-6) 02/28/2021 Last Documented On 1 1:01PM ; [facility] Difficulty walking 02/28/2021 Last Documented On 1 1:01PM ; [facility] No consumption of alcohol 02/28/2021 Last Documented On 1 1:01PM ; [facility] Not using drugs 02/28/2021 Last Documented On 1 1:01PM ; [facility] Smoking Status Unknown Procedures and Surgical History Surgical History Last Updated No Pacemaker 02/28/2021 Last Documented On 1 1:01PM ; [facility] Medical History Includes: Medical History in patient's chart Description Last Updated Blood pressure was high 02/28/2021 Last Documented On 1 1:01PM ; [facility] Hypertension 02/28/2021 Last Documented On 1 1:01PM ; [facility] No exposure to a contagious disease 11/2020 Last Documented On 1 1:01PM ; [facility] No previous psychiatric treatment 2020 Last Documented On 1 1:01PM ; [facility] Not taking OTC medications 02/28/2021 Last Documented On 1 1:01PM ; [facility] Taking medication for high blood pressur e 02/28/2021 Last Documented On 1 1:01PM ; [facility] vision care associate 02/28/2021 Last Documented On 1 1:01PM ; [facility] Currently wearing eyeglasses 02/28/2021 Last Documented On 1 1:01PM ; [facility] Injection/Nerve blocks 02/28/2021 Last Documented On 1 1:01PM ; [facility] Moderate to severe pain 02/28/2021 Last Documented On 1 1:01PM ; [facility] No Pain Pump 02/28/2021 Last Documented On 1 1:01PM ; [facility] No Spinal cord stimulator 02/28/2021 Last Documented On 1 1:01PM ; [facility] Other method: 02/28/2021 Last Documented On 1 1:01PM ; [facility] Physical therapy 02/28/2021 Last Documented On 1 1:01PM ; [facility] Please list all illnesses/co nditions you have been diagnosed with: Bi polar manic depressed colon cancer 02/28/2021 Last Documented On 1 1:01PM ; [facility] Please list all surgeries: Dec colos gabby Apr 2015 ankle Jan 2021 ankle 02/28/2021 Last Documented On 1 1:01PM ; [facility] Surgery 02/28/2021 Last Documented On 1 1:01PM ; [facility] Uses a cane for support 02/28/2021 Last Documented On 1 1:01PM ; [facility] Uses a Knee Brace 02/28/2021 Last Documented On 1 1:01PM ; [facility] Family History Includes: Family History in patient's chart Description Last Updated Fraternal history of Arthritis Last Documented On 1 1:01PM ; [facility] Maternal history of family history of is chemic heart disease 02/28/2021 Last Documented On 1 1:01PM ; [facility] Reported family history of seizures 11/2020 Last Documented On 1 1:01PM ; [facility] Review of Systems Review of Systems not supported for this document type No Review of Systems Recorded Mental Status No Mental Status Recorded Functional Status No Functional Status Recorded Physical Exam Physical Exam not supported for this document type No Physical Exam Recorded Allergies Includes: Active, inactive, and resolved Allergies Substance Type Reaction Onset Date Resolved Date Statu s Gabapentin Allergy 05/01/2022 Active Last Documented On 07/02/2022 3:31PM ; [facility] Note: Blurred vision BEES Allergy 05/01/2022 Active Last Documented On 3 3:31PM ; [facility] Bactrim Allergy Skin Rashes / Eruption of skin 3 Active Last Documented On 3 3:31PM ; [facility] Insurance Includes: Active Insurance Policies Plan Name Member ID Group # Subscriber Relationship Effect vini Dates 1 - [facility] [id number] AILEEN HURD Self 2 - [employer] [place] [employer] [id number] AILEEN Serrano Clinical Notes Includes: Signed Clinical Notes starting from 04/11/2022 No Clinical Notes Recorded
--- OUTSIDE RECORDS SUMMARY | 2024-07-04 09:47 | XMS_ITS | Clinical Summary ---
Author Organization [facility] Address [address] [place] [address] Phone Care Team Providers Care Waiter/Waitress First Class Name Role Phone Unavailable Unavailable Unavailable Reason [...] HEAT TRAMADOL NOT HELPING ALSO SOLANPAS AND VOLTABBY Plan of Treatment Referrals To Diagnosis Pain Management TOM BEHT MD - [facility] - [address] [place] [address] - Pain in left ankle and joints of left foot Note: Left ankle steroid inj ection w/ ultrasound,PErformed same day.F/U in 1 month. Last Documented On 3 2:49PM ; [facility] Education and Decision Aids were provided during visit for: Pill Count: Patient did not bring pain medication to appointment for pill count, per policy. Advised in order to continue to safely prescribe opioids, medication must be brought to each appointment Last Documented On 3 9:33AM ; [facility] Pill Count: 74 Appropriate Last Documented On 3 9:33AM ; [facility] Assessments Includes: Assessments from this encounter Findings - [K59.03 - Drug induced constipation] Drug-induced constipation - Last Documented On 05/29/2022 1:45PM ; [facility] - [M19.072 - Primary osteoarthritis, left ankle and foot] Osteoarthritis of left ankle - Last Documented On 05/29/2022 1:45PM ; [facility] - [M46.1 - Sacroiliitis, not elsewhere classified] Right sacroiliitis - Last Documented On 05/29/2022 1:45PM ; [facility] - [M25.519 - Pain in unspecified shoulder] Arthralgia of bilateral shoulder region - Last Documented On 05/29/2022 1:45PM ; [facility] - [M25.561 - Pain in right knee] Arthralgia of the right knee/patella/tibia/fibula - Last Documented On 05/29/2022 1:45PM ; [facility] - [M25.562 - Pain in left knee] Arthralgia of the left knee/patella/tibia/fibula - Last Documented On 05/29/2022 1:45PM ; [facility] - [M25.559 - Pain in unspecified hip] Hip pain - Last Documented On 05/29/2022 1:45PM ; [facility] - [M25.572 - Pain in left ankle and joints of left foot] Arthralgia of left ankle - Last Documented On 05/29/2022 1:45PM ; [facility] - [M25.572 - Pain in left ankle and joints of left foot] Arthralgia of the left ankle/foot - Last Documented On 05/29/2022 1:45PM ; [facility] - [M54.9 - Dorsalgia, unspecified] DORSALGIA - Last Documented On 05/29/2022 1:45PM ; [facility] - [M96.1 - Postlaminectomy syndrome, not elsewhere classified] Cervical postlaminectomy syndrome - Last Documented On 05/29/2022 1:45PM ; [facility] - [M47.892 - Other spondylosis, cervical region] Cervical spondylosis - Last Documented On 05/29/2022 1:45PM ; [facility] - [M47.897 - Other spondylosis, lumbosacral region] Lumbosacral spondylosis - Last Documented On 05/29/2022 1:45PM ; [facility] - [M54.2 - Cervicalgia] Cervicalgia - Last Documented On 05/29/2022 1:45PM ; [facility] - [M54.13 - Radiculopathy, cervicothoracic region] Cervicothoracic radiculopathy - Last Documented On 05/29/2022 1:45PM ; [facility] - [M54.17 - Radiculopathy, lumbosacral region] Lumbosacral radiculopathy - Last Documented On 05/29/2022 1:45PM ; [facility] - [M62.830 - Muscle spasm of back] Muscle spasm of back - Last Documented On 05/29/2022 1:45PM ; [facility] - [F11.20 - Opioid dependence, uncomplicated] Opioid dependence with continuous use - Last Documented On 05/29/2022 1:45PM ; [facility] - [F31.9 - Bipolar disorder, unspecified] Bipolar disorder NOS - Last Documented On 05/29/2022 1:45PM ; [facility] - [F43.12 - Post-traumatic stress disorder, chronic] Chronic post-traumatic stress disorder following combat - Last Documented On 05/29/2022 1:45PM ; [facility] - [G89.4 - Chronic pain syndrome] Chronic pain syndrome - Last Documented On 05/29/2022 1:45PM ; [facility] - [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 Advised in order to continue to safely prescribe opioids, medication must be brought to each appointment Last Documented On 9:33AM ; [facility] Pill Count: 74 Appropriate Last Documented On 9:33AM ; [facility] Medical Equipment - Implanted Devices Includes: Current Devices No Medical Equipment Recorded Medications Includes: Medications discussed during this encounter and other current Medications Discontinued / Stopped on this date on 05/01/2022 traZODone HCl 50 MG Oral Tablet Provider: Diagnosis: Last Documented On 05/29/2022 9:44AM By Ar COX ; [facility] Current Medications (continue as prescribed) Ambien 10 MG Oral Tablet 05/29/2022 Provider: Diagnosis: Last Documented On 05/29/2022 9:44AM By Ar COX ; [facility] Pregabalin 50 MG Oral Capsule 05/01/2022 Provider: Diagnosis: 50mg BID Last Documented On 05/01/2022 1:59PM By Freida Britt RN ; [facility] Rimegepant Sulfate 75 MG Oral Tablet Disintegrating Provider: Diagnosis: 75mg daily prn for migraine [place] Last Documented On 05/01/2022 2:00PM By Freida Britt RN ; [facility] traMADol HCl 50 MG Oral Tablet 05/01/2022 Provider: Diagnosis: 1 tab po q 6 hrs prn Last Documented On 05/01/2022 2:01PM By Freida Britt RN ; [facility] Effexor XR 150 MG Oral Capsule Extended Release 24 Alexandra r 05/01/2022 Provider: Diagnosis: 1 daily Last Documented On 05/01/2022 2:02PM By Freida Britt RN ; [facility] rOPINIRole HCl 1 MG Oral Tablet 05/01/2022 Provider: Diagnosis: TID prn Last Documented On 05/01/2022 2:02PM By Freida Britt RN ; [facility] Prazosin HCl 1 MG Oral Capsule 05/01/2022 Provider: Diagnosis: Last Documented On 05/01/2022 1:59PM By Freida Britt RN ; [facility] QUEtiapine Fumarate 100 MG Oral Tablet 05/01/2022 Pr ovider: Diagnosis: Last Documented On 05/01/2022 1:58PM By Freida Britt RN ; [facility] Cyclobenzaprine HCl 10 MG Oral Tablet 05/01/2022 Pro vider: Diagnosis: 1 tab po TID prn for muscle spasms Last Documented On 05/01/2022 1:58PM By Freida Britt RN ; [facility] Loreev XR 1 MG Oral Capsule ER 24 Hour Sprinkle 2022 Provider: Diagnosis: Last Documented On 05/01/2022 1:35PM By Ar COX ; [facility] Venlafaxine HCl ER 150 MG Or al Capsule Extended Release 24 Hour 02/28/2021 Provider: Diagnosis: Last Documented On 02/28/2021 9:15AM By Ar COX ; [facility] Levothyroxine Sodium 75 MCG Oral Capsule 02/28/2021 Provider: Diagnosis: Last Documented On 02/28/2021 9:14AM By Ar COX ; [facility] Past Medications on file Cyclobenzaprine HCl 10 MG Oral Tablet 06/20/2022 - 06/25/2022 Provider: TOM BETH MD Diagnosis: Dorsalgia, unspecified 1 tab po TID prn for muscle spasms Last Documented On 06/20/2022 12:32PM By Tom Beth MD ; [facility] Medications Administered Includes: Administered Medications from this encounter Medications Administered Diagnosis Date Pro vider Sensorcaine 0.5% IJ SOLN 05/29/2022 GABINO BETH MD administered by Dr. Beth Last Documented On 3 11:16AM By Candie Parada RN ; [facility] dexAMETHasone Sodium Phosphate 10 MG/ML IJ SOLN 05/29/2022 TOM BETH MD administered by Dr. Beth Last Documented On 3 11:15AM By Candie Parada RN ; [facility] Sodium Chloride 0.9% IJ SOLN 05/29/2022 TOM BETH MD administered by Dr. Beth for local Last Documented On 3 11:14AM By Candie Parada RN ; [facility] Xylocaine 1% IJ SOLN 05/29/2022 TOM BETH MD administered by Dr. Beth for local Last Documented On 3 11:13AM By Candie Parada RN ; [facility] Vital Signs Includes: Vital Signs from this encounter Vital Name 05/29/2022 09:44A Blood Pressure Sitting L 118/70 BP Cuff Size Regular Pulse Rate-Sitting (bpm) 67 Pulse Rhythm Regular Temp-Oral (F) 98.2 Weight (lb) .2 Pain Level 8 Oxygen Saturation (%) 93 Last Documented: On 05/29/2022 9:46AM ; [facility] Results Includes: Results discussed during this encounter No Results Recorded For Specified Dates History of Present Illness Includes: History of Present Illness from this encounter HPI PHQ-9 Score: 3 Date:05-29-22BPI Score: Date:MiDAS Score: Date:SOAPP-R Score: 9 LOW Date: 33-73-80Tthl Location: bilateral neck,back knee ltfootQuality: deep aching, [...] injections, tramadol, naproxen AILEEN HURD is a 56 year old male. - Allergy list reviewed [...] appropriate 02-28-21 Discussion: Patient returns in follow-up after undergoing right [...] of our ability to his satisfaction today. [place] prescription monitoring database was reviewed and found to be appropriate. No urine drug screen was performed today. Patient tolerated the left ankle injection under ultrasound guidance well today. PRIOR VISIT (05/01/22): Patient returns in follow-up over a year since last seen. Apparently his insurance changed to [employer] which was not accepted by this hospital [...] treatment there and change his insurance to [facility]. Apparently he elected to return to our office for ongoing management of his chronic low back pain. However, his symptoms have somewhat changed since last seen based on our records. We will obtain records from [facility] to confirm, however he now complains [...] for medications today but was accepting of [id number] analgesics, topical Voltaren and oral Tylenol until [...] refilled either. Will continue to monitor his [place] prescription database but this does all appear to be consistent based upon the report reviewed today. Risk and benefits and alternatives the above procedures were discussed in detail with the patient who expressed explicit understanding and consent to proceed. Questions were elicited, asked and answered the best of our ability and to his satisfaction today. [place] prescription monitoring database was reviewed and found [...] I've recommended Dr. Anne Marie Lobo in [place]. He is willing to make this drive [...] time of his next refill in April. [place] prescription monitoring database was reviewed and found [...] of his medications. UDS was performed today. [place] prescription monitoring database was reviewed and found [...] Tobacco non-user 02/28/2021 Last Documented On 3 9:32AM ; [facility] No recent change in sleep 02/28/2021 Last Documented On 3 9:32AM ; [facility] [PHQ-2] Patient Health Questionnaire 2 i tem total score: 8 (Scale: 0-6) 02/28/2021 Last Documented On 3 9:32AM ; [facility] Difficulty walking 02/28/2021 Last Documented On 3 9:32AM ; [facility] No consumption of alcohol 02/28/2021 Last Documented On 3 9:32AM ; [facility] Not using drugs 02/28/2021 Last Documented On 3 9:32AM ; [facility] Smoking Status Unknown Procedures and Surgical History Includes: Procedures from this encounter Procedures Code Diagnosis Performing Provider Service L ocation Service Date walker Last Documented On 3 9:33AM ; [facility] use of tobacco assessment performed 1000F Last Documented On 3 9:33AM ; [facility] falls risk assessment not documented [place] 3288F Last Documented On 3 9:33AM ; [facility] review of medications documented 1160F Last Documented On 3 9:33AM ; [facility] assessment of suicide risk performed Last Documented On 3 9:33AM ; [facility] screening for adult depression: impressi on and score seven Last Documented On 3 9:33AM ; [facility] standardized depression screening: posit vini for symptoms Last Documented On 3 9:33AM ; [facility] Clinical summary provided to patient Last Documented On 3 9:33AM ; [facility] SOAPP-R: total score 15 Last Documented On 3 9:33AM ; [facility] SOAPP-R: total score 9 Last Documented On 3 9:33AM ; [facility] Surgical History Last Updated No Pacemaker 02/28/2021 Last Documented On 3 9:32AM ; [facility] Medical History Includes: Medical History addressed during this encounter Description Last Updated Blood pressure was high 02/28/2021 Last Documented On 3 9:32AM ; [facility] Hypertension 02/28/2021 Last Documented On 3 9:32AM ; [facility] No exposure to a contagious disease 11/2020 Last Documented On 3 9:32AM ; [facility] No previous psychiatric treatment 2020 Last Documented On 3 9:32AM ; [facility] Not taking OTC medications 02/28/2021 Last Documented On 3 9:32AM ; [facility] Taking medication for high blood pressur e 02/28/2021 Last Documented On 3 9:32AM ; [facility] 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 Last Documented On 3 9:32AM ; [facility] Currently wearing eyeglasses 02/28/2021 Last Documented On 3 9:32AM ; [facility] Injection/Nerve blocks 02/28/2021 Last Documented On 3 9:32AM ; [facility] Moderate to severe pain 02/28/2021 Last Documented On 3 9:32AM ; [facility] No Pain Pump 02/28/2021 Last Documented On 3 9:32AM ; [facility] No Spinal cord stimulator 02/28/2021 Last Documented On 3 9:32AM ; [facility] Other method: 02/28/2021 Last Documented On 3 9:32AM ; [facility] Physical therapy 02/28/2021 Last Documented On 3 9:32AM ; [facility] Please list all illnesses/co nditions you have been diagnosed with: Bi polar manic depressed colon cancer 02/28/2021 Last Documented On 3 9:32AM ; [facility] Please list all surgeries: Dec frances pierre Apr 2015 ankle Jan 2021 ankle 02/28/2021 Last Documented On 3 9:32AM ; [facility] Surgery 02/28/2021 Last Documented On 3 9:32AM ; [facility] Uses a cane for support 02/28/2021 Last Documented On 3 9:32AM ; [facility] Uses a Knee Brace 02/28/2021 Last Documented On 3 9:32AM ; [facility] Family History Includes: Family History addressed during this encounter Description Last Updated Fraternal history of Arthritis Last Documented On 3 9:32AM ; [facility] Maternal history of family history of is chemic heart disease 02/28/2021 Last Documented On 3 9:32AM ; [facility] Reported family history of seizures 11/2020 Last Documented On 3 9:32AM ; [facility] Review of Systems Includes: Review of Systems [...] Active Last Documented On 07/02/2022 3:31PM ; [facility] Note: Blurred vision BEES Allergy 05/01/2022 Active Last Documented On 3 3:31PM ; [facility] Bactrim Allergy Skin Rashes / Eruption of skin 3 Active Last Documented On 3 3:31PM ; [facility] Encounters Encounter Provider Location Date Check-In Time Check-Out Time Diagnosis PAIN MANAGEMENT FOLLOW UP TOM BETH MD [facility] 023 9:31AM 10:27AM Cervical Spondylosis,Bipola r Disorder Nos,Chronic Pain Syndrome,Cervicalg ia,Postlaminectomy Syndrome Cervical,Opioid Dependence Continuous,Arthral nicolle - Knee / Patella / Tibia / Fibula Right,Arthralgia - Knee / Patella / Tibia / Fibula Left,Arthralgia - Ankle / Foot Left,Spondylosis Lumbosacral Region,Radiculopat hy of Cervicothoracic Region,Radiculopat hy of Lumbosacral Region,Sacroiliiti s Right,Arthralgia - Shoulder Region Bilateral,Constipa tion Drug-induced,Chron ic Post-traumatic Stress Disorder Following Combat,Muscle Spasm of Back,Hip Pain, Unspecified,Cdc Associate Use of Opiate Analgesic,Dorsalgi a,Arthralgia - Left Ankle,Osteoarthrit is Ankle Left Insurance Includes: Active Insurance Policies Plan Name Member ID Group # Subscriber Relationship Effect vini Dates 1 - [facility] [id number] AILEEN Serrano 2 - [employer] [place] MED[employer]ARE SECOND [id number] AILEEN Serrano Clinical Notes Includes: Clinical Notes from this encounter * Progress note Date Encounter Last Documented by 05/29/2022 PAIN MANAGEMENT FOLLOW UP Last d ocumented on 05/29/2022; 1:45 PM, TOM BETH MD; [facility] Chief Complaint The Chief Complaint is: F/U RT SI JOINT INJ DONE ON 05-07-22 95% BUTTOCK IS NOT BOTHERING HIM . NEW PROBLEM LOWER BACK ABOVE WAIST LINE AND NECK PAIN HAS KNOT ON IT. NECK HURTS INBETWEEN SHOULDER BLADES CAN NOT GO BACK WITH HIS HEAD OR SIDE TO SIDE LT ANKLE IS BOTHERING HIM WELL. STARTED TWO DAYS AGO. BEEN DOING ALOT OF CLEANING RE ORANZING THINGS. NOT GETTING ENOUGH REST. INTERESTED IN INJECTIONS HAS USED LIDICAINE PATCHES ICE HEAT TRAMADOL NOT HELPING ALSO SOLANPAS AND VOLTARAN. History of Present Illness PHQ-9 Score: 3 [...] injections, tramadol, naproxen AILEEN HURD is a 56 year old male. - Allergy list reviewed [...] appropriate 02-28-21 Discussion: Patient returns in follow-up after undergoing right [...] of our ability to his satisfaction today. [place] prescription monitoring database was reviewed and found to be appropriate. No urine drug screen was performed today. Patient tolerated the left ankle injection under ultrasound guidance well today. PRIOR VISIT (05/01/22): Patient returns in follow-up over a year since last seen. Apparently his insurance changed to [employer] which was not accepted by this hospital [...] treatment there and change his insurance to [facility]. Apparently he elected to return to our office for ongoing management of his chronic low back pain. However, his symptoms have somewhat changed since last seen based on our records. We will obtain records from [facility] to confirm, however he now complains [...] for medications today but was accepting of kwdn-xkz-aibigur analgesics, topical Voltaren and oral Tylenol until [...] refilled either. Will continue to monitor his [place] prescription database but this does all appear to be consistent based upon the report reviewed today. Risk and benefits and alternatives the above procedures were discussed in detail with the patient who expressed explicit understanding and consent to proceed. Questions were elicited, asked and answered the best of our ability and to his satisfaction today. [place] prescription monitoring database was reviewed and found [...] I've recommended Dr. Anne Marie Lobo in [place]. He is willing to make this drive [...] time of his next refill in April. [place] prescription monitoring database was reviewed and found [...] of his medications. UDS was performed today. 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 Physical Findings - Vitals taken 05/29/2022 09:44 am BP-Sitting L 118/70 mmHg BP Cuff Size Regular Pulse Rate-Sitting 67 bpm Pulse Rhythm Regular Temp-Oral 98.2 F Weight 0 lbs 3.2 oz Pain Level 8 Oxygen Saturation 93 % Psychiatric: PHQ9 score:: Value PHQ9 score: [...] in all extremities. No focal neurologic deficit. [id number] normal bilaterally. Babinski downgoing. Psych: No apparent [...] syndrome] Chronic pain syndrome - [Z79.891 - intermediate (current) use of opiate analgesic] intermediate use of opiate analgesic Therapy - Other Administered 5 mL of Xylocaine 1 % on 05/29/22 09:30a, administered by Dr. Beth for local Administered 5 mL of Sodium Chloride 0.9 % on 05/29/22 09:30a, administered by Dr. Beth for local Administered 1 mL of Dexamethasone Sodium Phosphate 10 MG/ML on 05/29/22 09:30a, administered by Dr. Beth Administered 5 mL of Sensorcaine 0.5 % on 05/29/22 09:30a, administered by Dr. Beth - Assessment of suicide risk performed - Clinical summary provided to patient. - Walker. Counseling/Education - Pill Count: Patient did not bring pain medication to appointment for pill count, per policy. Advised in order to continue to safely prescribe opioids, medication must be brought to each appointment - Pill Count: 74 Appropriate Appropriate wound care, activity restrictions and post-operative instructions were reviewed with the patient and provided in written form at time of discharge. Discussed Continue current opioid therapy with intention to wean to a 4 to 6 week holiday. Patient is tolerating wean well with no evidence of withdrawal. Pain is only moderately aggravated and possibly due to increased activity. Recommend cognitive behavioral therapy. Made this referral today. Recommend medial branch blocks to lower lumbar spine with progression to thermal radiofrequency ablation for improved pain control. Patient will follow-up 7 to 10 days after her initial blocks to discuss results. Patient is due for his next refill mid April. At that time we will reduce him to 2 tablets per day. Current dose of medication is improving function, reducing pain. Risks, benefits and alternatives to opioid analgesics were discussed in detail once again today. Plan StartCited - Pain in left ankle and joints of left foot Referral: Pain Management Instructions: Left ankle steroid injection w/ ultrasound, PErformed same day. F/U in 1 month. EndCited Practice Management Use of tobacco assessment performed Falls risk assessment not documented system reason Review of medications documented; Standardized depression screening: positive for symptoms and for adult impression and score seven. A total of 42 minutes were spent on this patient's evaluation, as above, with greater than 50% of this time spent in direct [id number] counseling and coordination of care. Results of [...] but may be subject to typographical or airflight attendants supervisor errors. Verify all diagnoses, medications, dosages, and patient instructions with patient and/or the originator of this document. Health Reminders - Assess Tobacco Use satisfied 05/29/2022. - Depression Screening satisfied 05/29/2022. - Follow up plan for Depression Screening satisfied 05/29/2022. User Defined 1 LEFT INTRA-ARTICULAR ANKLE STEROID INJECTION UNDER ULTRASOUND GUIDANCE: INFORMED CONSENT: The procedure was described in detail to the patient. Potential benefits, alternatives to the procedure (including doing nothing) and risks associated with the procedure were explained, which included but was not limited to possible serious local or systemic infection, vascular injury, bleeding/bruising, nerve injury leading to altered sensation, numbness, pain and/or paresis/paralysis, deformity, decreased mobility, allergic reaction to medication and/or increase in or failure to treat pain. The patient has also had an explanation of the side effects of corticosteroid including risk of immunosuppression, adrenal supression or elevation of blood pressure and/or blood sugars. Allergies were confirmed. Questions were elicited and the patient has had an opportunity to have all questions answered both on the day of initial consultation and again today. The patient wishes to proceed, believes that the potential for benefit outweighs risk of harm, and has voluntarily signed a procedure specific consent form. DESCRIPTIONS OF PROCEDURE: The patient was placed in the supine position with legs slightly flexed at the knee and made comfortable with pillows under the head, knee and ankles, with the affected extremity additionally flexed at 45 degrees. The region of the lateral malleolus of the LEFT ankle was identified using the linear ultrasound transducer in both the transverse axial and longitudinal views. All major nerves and vessels within the space were identified using colorflow doppler and avoided. Area was cleansed with alcohol, prepared with a 3ml chloraprep applicator and draped in the typical sterile fashion using strict aseptic technique, which was also utilized throughout. No more than 3 mls of 0.5% Lidocaine was used to anesthetize the injection site via infiltration with a 27g 1.25 inch needle after negative aspiration. Following this, a 25 g, 1.25 -inch beveled needle was advanced in plane in the axial position until the appropriate joint space was entered under ultrasound guidance. No parasthesia was elicited. After negative aspiration, a 3ml solution containing 10 mg dexamethasone in 0.5% PF bupivacaine was injected without difficulty. Injectate was visualized entering the appropriate tissue plane under live ultrasonography. The needle was withdrawn completely intact. Sterile bandage was applied. The patient appeared to tolerate the procedure well with no evidence of complication. Images were saved to the patient's chart. Patient was evaluated for an appropriate period of time after the procedure with no evidence of complications and eventually discharged under their own power with instructions to monitor for signs of infection (including but not limited to fever, chills, night sweats, increased pain or reduced motility, redness, swelling, warmth, pain or discharge at the site) and to report immediately to our office or the nearest ED if after hours should these signs and/or symptoms develop. Appropriate post-procedural instructions regarding wound care and activity restrictions, including instructions to avoid stairs/climbing or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
--- OUTSIDE RECORDS SUMMARY | 2024-07-04 09:47 | XMS_ITS | Clinical Summary ---
Author Organization [facility] Address [facility] [place] [address] Care Team Providers Care Radiation Oncology Nurse Name Role Phone Kevin Meyer Primary Care Provider Allergies Active Allergy Reactions Criticality Noted Date Comments Acetaminophen Other (see comment) High 07/02/2022 Patient requires vicoprofen due to history of liver cancer Bee Venom Anaphylaxis High 06/22/2006 Ibuprofen Unknown 11/18/2023 Sulfamethoxazole-Trimet hoprim Hives,Rash Low 06/23/2022 Medications levothyroxine 75 MCG tabletIndications: hypothyroidism Take 1 tablet (75 mcg total) by mouth daily. Indications: hypothyroidism Active rimegepant (NURTEC) 75 MG disintegrating tabletIndications: migraines Nurtec ODT 75 mg disintegrating tablet TAKE 1 TABLET ONCE NEEDED FOR MIGRAINE HEADACHE A SINGLE DOSE MAX OF 1 PER DAY 08/28/19 22 Active venlafaxine XR (EFFEXOR-XR) 150 MG 24 hr capsuleIndications :depression Take 1 capsule (150 mg total) by mouth daily. Indications: depression 05/05/19 23 Active LORazepam ER (LOREEV XR) 1 MG Capsule ER 24 Hour SprinkleIndication s:anxiety/insomnia Take 1 tablet by mouth daily. Indications: anxiety/insomnia 05/05/19 23 Active EPINEPHrine 0.3 MG/0.3ML injectionIndicatio ns:anaphylaxis INJECT 0.3 MILLILITER (0.3 MG) BY INTRAMUSCULAR ROUTE ONCE NEEDED FOR ANAPHYLAXIS Active ondansetron (ZOFRAN-ODT) 4 MG disintegrating tabletIndications: nausea Take 1 tablet (4 mg total) by mouth. Indications: nausea 09/02/19 23 Active octreotide (SANDOSTATIN) 100 MCG/ML SolutionIndication s:antidiarrheal Inject 1 mL (100 mcg total) into the vein every 30 (thirty) days. Indications: antidiarrheal Active DIAZEPAM ORIndications:anxi ety Take 1 mg by mouth nightly as needed. Indications: anxiety 11/04/19 23 Active amLODIPine (NORVASC) 10 MG tabletIndications: hypertension Take 1 tablet (10 mg total) by mouth daily. Indications: hypertension 02/19/20 23 Active pregabalin (LYRICA) 75 MG capsuleIndications :nerve pain Take 1 capsule (75 mg total) by mouth 2 (two) times daily. Indications: nerve pain 03/03/20 23 Active prazosin (MINIPRESS) 2 MG capsule Take 1 capsule (2 mg total) by mouth nightly at bedtime. 04/01/19 24 Active OLANZapine (ZYPREXA) 5 MG tablet Take 1 tablet (5 mg total) by mouth nightly at bedtime. Active oxyCODONE immediate release (ROXICODONE) 5 MG immediate release tabletIndications: Acute Pain < 7 Day Supply Take 2 tablets (10 mg total) by mouth every 4 (four) hours as needed for Pain. Indications: Acute Pain < 7 Day Supply 50 tablet 08/13/19 24 Active calcium, elemental, 600 MG tabletIndications: S/P lumbar fusion Take 1 tablet (600 mg total) by mouth 2 (two) times daily. 60 tablet 4 08/14/19 24 Active vitamin D3, cholecalciferol, 125 mcg capsuleIndications :S/P lumbar fusion Take 1 capsule (5,000 Units total) by mouth daily. 30 capsule 4 08/14/19 24 Active VRAYLAR 1.5 MG capsule Take 1 capsule (1.5 mg total) by mouth daily. 09/17/19 24 Active modafinil (PROVIGIL) 100 MG tablet Take 1 tablet (100 mg total) by mouth daily. 09/30/19 24 Active hydroCHLOROthiazid e (HYDRODIURIL) 25 MG tablet Take 1 tablet (25 mg total) by mouth every morning. 12/23/19 24 Active pantoprazole EC (PROTONIX) 40 MG tablet Take 1 tablet (40 mg total) by mouth daily. 12/28/19 24 Active methylPREDNISolone , ROSENDO, (MEDROL DOSEPAK) 4 MG tabletIndications: S/P lumbar spinal fusion,Fall Follow package directions 1 each 05/18/19 25 Active Active Problems Problem Noted Date Diagnosed Date 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 Lumbar spine instability 08/10/2023 Degenerative disc disease, lumbar 08/10/2023 Spondylolisthesis of lumbar region 08/10/2023 S/P lumbar fusion 08/10/2023 Other osteomyelitis of left ulna (CMS/HCC HHS/HC C) 03/13/2023 Complex tear of medial menis cus of right knee as current injury, subsequent encounter 10/08/2022 Unspecified open wound of left elbow, subsequent encounter 08/11/2022 Septic olecranon bursitis of left elbow 06/24/19 23 Syncope 05/25/2021 Encounters Date Type Department Care Team Description 06/30/2024 1:40 PM CDT [facility] [address], [address] [place] [phone] Mando Rojas MD Follow Up 06/30/2024 12:58 PM CDT - 06/30/2024 11:59 PM CDT Hospital Encounter [facility] [place] [address] Mando Rojas MD Discharge Disposition: Home or Self Care (Routine Discharge) 06/30/2024 Travel 05/19/2024 10:51 AM 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, [address] [place] [address] Mando Rojas MD FYI 05/19/2024 Travel 05/18/2024 [facility] [address], [address] [place] [phone] Jennifer Huang APRN 05/18/2024 Telephone [facility] [place] [facility] [address], [address] [place] [phone] Mando Rojas MD Question from Last 3 Months Immunizations Immunization Administration Dates Next Due Fluzone 6 Months+ Quad (0.5 mL Prefilled Syringe ) 05/28/2021 Family History Medical History Relation Comments Rheumatoid Arthritis Brother 1 Asthma Brother 2 Cirrhosis Father Asthma Mother Heart Disease Mother Hypertension Mother Asthma Sister 1 Relation Status Comments Brother 1 Alive Brother 2 Alive Father Mother Sister 1 Alive Sister 2 Alive Social History Tobacco Use Types Packs/Day Years Used Date Smoking Tobacco: Former Cigarettes 1 24 1 984 - 04/24/2007 Smokeless Tobacco: Former Tobacco Cessation:Counseling Given: Not Answered Comments:No tabbacco use since 2007 Alcohol Use Standard Drinks/Week Comments Not Currently 0 (1 standard drink = 0.6 oz pur e alcohol) Former drinker OASIS D0700: Social Isolation Answer Da te Recorded Frequency of experiencing loneliness or isolatio n Never 04/01/2023 OASIS A1250: Transportation Answer Date Recorded Lack of Transportation (Medical) No 04/01/2023 Lack of Transportation (Non-Medical) No 04/01/2023 Patient Unable or Declines to Respond No 04/01/2023 OASIS B1300: Health Literacy Answer Conner e Recorded Frequency of needing help to read materials from doctor or pharmacy Never 04/01/2023 B1300 Health Literacy Answer Date Recor ded How often do you need to hav e someone help you when you read instructions, pamphlets, or other written material from your doctor or pharmacy? Never 08/10/2023 [facility] Utilities Answer Date Recorded In the past 12 months has th e electric, gas, oil, or water company threatened to shut off services in your home? No 08/10/2023 Humiliation, Afraid, Rape, and Kick questionnair e Answer Date Recorded Within the last year, have y ou been afraid of your partner or ex-partner? No 08/10/2023 Within the last year, have y ou been humiliated or emotionally abused in other ways by your partner or ex-partner? No Within the last year, have y ou been kicked, hit, slapped, or otherwise physically hurt by your partner or ex-partner? No 08/10/2023 Within the last year, have y ou been raped or forced to have any kind of sexual activity by your partner or ex-partner? No 08/10/2023 Overall Financial Resource Strain (CARDIA) Answe r Date Recorded How hard is it for you to pa y for the very basics like food, housing, medical care, and heating? Not hard at all 08/10/2023 [facility] - Occupational Stress Questionnaire Answer Date Recorded Do you feel stress - tense, restless, nervous, or anxious, or unable to sleep at night because your mind is troubled all the time - these days? Not at all 08/10/2023 Exercise Vital Sign Answer Date Recorde d On average, how many days pe r week do you engage in moderate to strenuous exercise (like a brisk walk)? 0 days 08/10/2023 On average, how many minutes do you engage in exercise at this level? 0 min 08/10/2023 Hunger Vital Sign Answer Date Recorded Within the past 12 months, y ou worried that your food would run out before you got the money to buy more. Never true 08/10/19 Within the past 12 months, t he food you bought just didn't last and you didn't have money to get more. Never true 08/10/2023 PRAPARE - Transportation Answer Date Re corded In the past 12 months, has l ack of transportation kept you from medical appointments or from getting medications? No 07/22 In the past 12 months, has l ack of transportation kept you from meetings, work, or from getting things needed for daily living? No 08/10/2023 Housing Stability Vital Sign Answer Conner e Recorded In the last 12 months, was t here a time when you were not able to pay the mortgage or rent on time? No 08/10/2023 In the past 12 months, how m any times have you moved where you were living? 1 08/10/2023 At any time in the past 12 m [facility], were you homeless or living in a long-term (including now)? No 08/10/2023 Sex and Gender Information Value Date Recorded Sex Assigned at Male 06/30/2024 12:49 PM CDT Legal Sex Male 7:14 PM CDT Gender Identity Not on file Sexual Orientation Not on file Last Filed Vital Signs Vital Sign Reading Time Taken Comments Blood Pressure 146/86 06/30/2024 1:52 PM CDT Pulse 72 06/30/2024 1:28 PM CDT Temperature 36.6 C (97.8 F) 06/30/2024 1:28 PM CDT Respiratory Rate 16 06/30/2024 1:28 PM CDT Oxygen Saturation 97% 06/30/2024 1:28 PM CDT Inhaled Oxygen Concentration - - Weight 90.7 kg (200 lb) 06/30/2024 1:28 PM CDT Height 182.9 cm (6') 06/30/2024 1:28 PM CDT Body Mass Index 27.12 06/30/2024 1:28 PM CDT Plan of Treatment Upcoming Encounters Date Type Department Care Team (Latest Contact Info) Description 08/03/2024 10:00 AM CDT Hospital Encounter [facility] [place] [address] [id number] Daniela Henderson MD [address] [address] 08/03/2024 10:00 AM CDT - 08/03/2024 10:20 AM CDT Surgery [facility] [place] [place] [address] [id number] Daniela Henderson MD [address] [address] INJECTION TRIGGER POINT - LEFT HARDWARE BLOCKS L5-S1 09/01/2024 2:20 PM CDT Office Visit [facility] - [address], [address] [place] [phone] Mando Rojas MD [address] [place] [address] Scheduled Procedures Name Priority Associated Diagnoses Date/Ti me INJECTION TRIGGER POINT Z98.1 (ICD-10-CM) - S/P lumbar spinal fusion T85.848D (ICD-10-CM) - Pain from implanted hardware, subsequent encounter 08/03/2024 10:00 AM CDT Health Maintenance Due Date Last Done Comments Colorectal Cancer Screening Colonoscopy (10 Years) 1966 Annual Physical 1969 Hepatitis B Vaccines (1 of 3 - 19+ 3-dose series) 1985 COVID-19 Vaccine (2023-2 5 season) 2023 PHQ-2 (Physician [place]) 03/23/2024 DTaP, Tdap and Td Vaccines ( 3 - Td or Tdap) 05/12/2032 05/12/2022, 04/29/2013 Pneumococcal Vaccine: Pediatrics (0 to 5 Years) and At-Risk Patients (6 to 49 Years) Aged Out 03/08/2015 No longer eligible b ased on patient's age to complete this topic Zoster Vaccines Completed 10/30/2020, 08/28/2020, 08/28/2020 Hepatitis C Completed 09/04/2022 Meningococcal B Vaccine Aged Out No l onger eligible based on patient's age to complete this topic Meningococcal Vaccine Aged Out No ricky jarrett eligible based on patient's age to complete this topic RSV Immunizations Under 20 Months Aged Out No longer eligible b ased on patient's age to complete this topic Goals Goal Patient Goal Type Associated Problems Recent Progress Patient-Stated? Author Family - family caregiver with be involved in care transitions and discharge planning Lifestyle No Oscar Dietrich, RN Medical Devices Implanted Type Area Arts Education Teacher Device Identifier Shelf Expiration Date Model / Serial / Lot Putty [place] Matrix Dbm/Dbf Bone l - [id number] Implanted:Qty : 1 on 08/10/2023 by Mando Rojas MD at [facility] Bone N/A: Spine Lumbar [employer] [id number] 06/09/2025 [id number] / [id number] / . Putty Noemy Matrix Dbm/Dbf Bone [facility] - [id number] Implanted:Qty : 1 on 08/10/2023 by Mando Rojas MD at [facility] Bone N/A: Spine Lumbar [employer] [id number] 06/18/2025 [id number] / [id number] / . Medtronic Anteralign Spinal System Ls Spacer Implanted:Qty : 1 on 08/10/2023 by Mando Rojas MD at [facility] Cage N/A: Spine Lumbar [employer] [id number] 08/02/2029 [id number] / / [id number] Description:L5-S1 37 Mm Plate Implanted:Qty : 1 on 08/10/2023 by Mando Rojas MD at [facility] Plate N/A: Spine Lumbar [employer] . [id number] / / . 4.75 X 30 Mm Rods Implanted:Qty : 2 on 08/10/2023 by Mando Rojas MD at [facility] Andres N/A: Spine Lumbar [employer] . [id number] / / . 7.5 X 40 Mm Screws Implanted:Qty : 4 on 08/10/2023 by Mando Rojas MD at [facility] Screw N/A: Spine Lumbar [employer] . [id number] / / . 6.5 X 30 Mm Screw Implanted:Qty : 4 on 08/10/2023 by Mando Rojas MD at [facility] Screw N/A: Spine Lumbar [employer] . [id number] / / . Graft Soft Tissue 4x4cm [employer] Allograft - [id number] Implanted:Qty : 1 on 08/10/2023 by Mando Rojas MD at [facility] Tissue N/A: Spine Lumbar [employer] 01/20/2028 [id number] / [id number] / Voyager Set Screws Implanted:Qty : 4 on 08/10/2023 by Mando Rojas MD at [facility] N/A: Spine Lumbar [employer] . [id number] / / . Procedures Procedure Name Priority Date/Time Associated Diagnosis Comments XR LUMB SPINE AP+LAT ONLY Routine 06/30/2024 1:15 PM CDT S/P lumbar spinal fusion XR LUMB SPINE AP+LAT ONLY Routine 05/19/2024 11:04 AM DERMATOLOGY SALES REPRESENTATIVE S/P lumbar spinal fusion Fall from Last 3 Months Results * XR LUMB SPINE AP+LAT ONLY (06/30/2024 1:15 PM CDT) Only the most recent of2 resultswithin the time period is included. Anatomical Region Laterality Modality Spine Radiographic Taylor ging 06/30/2024 1:26 PM CDT Impressions 06/30/2024 1:27 PM CDT IMPRESSION: Stable postoperative appearance Ordered By: MANDO ROJAS Interpreted By: Yuriy Childs MD, 06/30/2024 1:26 PM Narrative 06/30/2024 1:27 PM CDT [facility] [address] [place], [place] [address] 2 VIEWS OF THE LUMBAR SPINE Clinical History: Postop fusion Comparison: May 19, 2024 2 views of the lumbar spine demonstrate posterior and anterior interbody fusion of the L5-S1 level. Overall, the hardware is unchanged from previous. There is no evidence of component failure. Normal alignment is evident throughout. The spinous processes are normally aligned. Procedure Note Yuriy Childs MD - 06/30/[address] [address] 2 VIEWS OF THE LUMBAR SPINE Clinical History: Postop fusion Comparison: May 19, 2024 2 views of the lumbar spine demonstrate posterior and anterior interbodyfusion of the L5-S1 level. Overall, the hardware is unchanged fromprevious. There is no evidence of component failure. Normal alignment isevident throughout. The spinous processes are normally aligned. IMPRESSION: Stable postoperative appearance Ordered By: MANDO ROJAS Interpreted By: Yuriy Childs MD, 06/30/2024 1:26 PM Mando Rojas MD GENERAL IMAGING Final Resul t from Last 3 Months Insurance MEDICAID DEPT OF [address] Advance Directives Documents on File Type Date Recorded Patient Hotel Staff Member Expl anation Advance Directives and Living Will 11/14/2022 3:10 PM 03/10/19 DURABLE POW ER OF [employer]ALLOW [employer]ER FOR HEALTH CARE * Full Code (Latest Code Status on File) Date Activated Date Inactivated Comments 08/10/2023 4:08 PM 08/14/2023 3:20 PM * Full Code Date Activated Date Inactivated Comments 03/27/2023 5:58 PM 04/17/2023 9:27 AM * Full Code Date Activated Date Inactivated Comments 03/07/2023 1:56 PM 03/17/2023 10:32 AM * Full Code Date Activated Date Inactivated Comments 05/25/2021 9:34 PM 05/29/2021 7:00 PM Care Teams Radiation Oncology Nurse Relationship Specialty Start Date End Date Kevin Meyer PA [address] [place] [address] PCP - General PHYSICIAN STUDIO CONTROL OPERATOR 05/28/21
--- OUTSIDE RECORDS SUMMARY | 2024-07-04 09:47 | XMS_ITS ---
Author Organization [facility] Address [address] [place] [address] Care Team Providers Care Batch Records Clerk Name Role Phone Kevin Meyer Primary Care Provider [phone] Kevin Meyer Unavailable [phone] Benja Esteban MD Unavailable [phone] Active Problems Problem Noted Date Diagnosed Date Knee pain 02/13/2021 Malignant neoplasm of colon 02/13/2021 Essential hypertension 01/16/2021 Cervical radiculopathy 01/15/2021 Personal history of other ma lignant neoplasm of large intestine 12/17/2020 Overview (12/17/2020): Added automatically from request for surgery [id number] 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/13/2020 Overview (12/13/2020): Added automatically from request for surgery [id number] Malignant carcinoid tumor of the ileum Stimulant use disorder 05/31/2020 Severe alcohol use disorder 05/31/2020 PTSD (post-traumatic stress disorder) 05/31/2020 Chronic bilateral low back pain without sciatica 04/07/2020 Assessment & Plan (05/04/2020 12:54 PM FIREARMS MODEL MAKER): - flexeril 10mg TID PRN - [place]land 10mg q4 PRN - lidocaine patch daily - avoid IV ketorelac and NSAIDs with starting lithium - heating packs Assessment & Plan (05/03/2020 9:56 AM FIREARMS MODEL MAKER): - flexeril 10mg TID PRN - [place]land 10mg q4 PRN - lidocaine patch daily - avoid IV ketorelac and NSAIDs with starting lithium - heating packs Assessment & Plan (05/02/2020 11:56 AM FIREARMS MODEL MAKER): - flexeril 10mg TID PRN - [place]land 10mg q4 PRN - lidocaine patch daily - avoid IV ketorelac and NSAIDs with starting lithium - heating packs Assessment & Plan (05/01/2020 10:58 AM FIREARMS MODEL MAKER): - flexeril 10mg TID PRN - NORCO 10mg q4 PRN - lidocaine patch daily - avoid IV ketorelac and NSAIDs with starting lithium - heating pads Assessment & Plan (04/30/2020 12:17 PM FIREARMS MODEL MAKER): - flexeril 10mg TID PRN - NORCO 10mg q4 PRN - lidocaine patch daily - avoid IV ketorelac and NSAIDs with starting lithium - heating pads Assessment & Plan (04/28/2020 8:01 AM FIREARMS MODEL MAKER): - flexeril 10mg TID PRN - NORCO 10mg q4 PRN - lidocaine patch daily - avoid IV ketorelac and NSAIDs with starting lithium - heating pads Assessment & Plan (04/27/2020 8:47 AM FIREARMS MODEL MAKER): - flexeril 10mg TID PRN - NORCO 10mg q4 PRN - lidocaine patch daily - avoid IV ketorelac and NSAIDs given ADILENE - heating pads Assessment & Plan (04/26/2020 10:11 AM FIREARMS MODEL MAKER): - flexeril 10mg TID PRN - NORCO 10mg q4 PRN - lidocaine patch daily - avoid IV ketorelac and NSAIDs given ADILENE - heating pads Assessment & Plan (04/25/2020 9:45 AM FIREARMS MODEL MAKER): - flexeril 10mg TID PRN - NORCO 10mg q4 PRN - lidocaine patch daily - avoid IV ketorelac and NSAIDs given ADILENE - heating pads Assessment & Plan (04/24/2020 9:49 AM FIREARMS MODEL MAKER): - flexeril 10mg TID PRN - NORCO 10mg q4 PRN - lidocaine patch daily - avoid IV ketorelac and NSAIDs given ADILENE - heating pads Assessment & Plan (04/23/2020 10:21 AM FIREARMS MODEL MAKER): - flexeril 10mg TID PRN - NORCO 10mg q4 PRN - lidocaine patch daily - avoid IV ketorelac and NSAIDs given ADILENE - heating pads Assessment & Plan (04/21/2020 8:38 AM FIREARMS MODEL MAKER): - flexeril 10mg TID PRN - NORCO 10mg q4 PRN - lidocaine patch daily - avoid IV ketorelac and NSAIDs given ADILENE - heating pads Assessment & Plan (04/20/2020 12:05 PM FIREARMS MODEL MAKER): - flexeril 10mg TID PRN - NORCO 10mg q4 PRN - lidocaine patch daily - avoid IV ketorelac and NSAIDs given ADILENE - heating pads Assessment & Plan (04/19/2020 9:46 AM FIREARMS MODEL MAKER): - flexeril 10mg TID PRN - NORCO 10mg q4 PRN - lidocaine patch daily - avoid IV ketorelac and NSAIDs given ADILENE - heating pads Assessment & Plan (04/18/2020 10:09 AM FIREARMS MODEL MAKER): - flexeril 10mg TID PRN - NORCO 10mg q4 PRN - lidocaine patch daily - avoid IV ketorelac and NSAIDs given ADILENE - heating pads Assessment & Plan (04/17/2020 9:31 AM FIREARMS MODEL MAKER): - flexeril 10mg TID PRN - NORCO 10mg q4 PRN - lidocaine patch daily - avoid IV ketorelac and NSAIDs given ADILENE - heating pads Assessment & Plan (04/16/2020 11:51 AM FIREARMS MODEL MAKER): - flexeril 10mg TID PRN - NORCO 10mg q4 PRN - lidocaine patch daily - avoid IV ketorelac and NSAIDs given ADILENE - heating pads Assessment & Plan (04/14/2020 9:57 AM FIREARMS MODEL MAKER): - flexeril 10mg TID PRN - NORCO 10mg q4 PRN - lidocaine patch daily - avoid IV ketorelac and NSAIDs given ADILENE - heating pads Assessment & Plan (04/10/2020 10:04 PM FIREARMS MODEL MAKER): - flexeril 10mg TID PRN - NORCO 10mg q4 PRN - lidocaine patch daily - avoid IV ketorelac and NSAIDs given ADILENE - heating pads Assessment & Plan (04/08/2020 3:23 PM FIREARMS MODEL MAKER): Patient endorsing exacerbation of chronic back pain [...] -PT Assessment & Plan (04/07/2020 6:23 AM FIREARMS MODEL MAKER): Patient endorsing exacerbation of chronic back pain and left ankle pain (had previous traumatic injury, required surgery). No other red flag symptoms/signs. Reports he has received injections in the past -Continue PRN norco, flexeril -Lidocaine patch to back -PT Depressive disorder 04/03/2020 Assessment & Plan (05/04/2020 12:54 PM FIREARMS MODEL MAKER): 54yo M with reported history of bipolar [...] more bright. Plan to discharge patient 05/04. Conception augmentation started with moderate improvements seen in depressive symptoms with ECT, titrated to 300 mg BID with level 0.6. - Continue OLANZapine, 20 mg, oral, Nightly, for depression - Continue Venlafaxine XR 150 mg PO daily, for depression - Continue lithium to 300 mg BID - Conception level 0.6 on 05/03 - This is [...] 05/04 Assessment & Plan (05/03/2020 9:56 AM FIREARMS MODEL MAKER): 54yo M with reported history of bipolar [...] more bright. Plan to discharge patient 05/04. Conception augmentation started with moderate improvements seen in depressive symptoms with ECT, titrated to 300 mg BID with level 0.6. - Continue OLANZapine, 20 mg, oral, Nightly, for depression - Continue Venlafaxine XR 150 mg PO daily, for depression - Continue lithium to 300 mg BID - Conception level 0.6 on 05/03 - This is [...] permission) Assessment & Plan (05/02/2020 11:56 AM FIREARMS MODEL MAKER): 54yo M with reported history of bipolar [...] permission) Assessment & Plan (05/01/2020 10:58 AM FIREARMS MODEL MAKER): 54yo M with reported history of bipolar [...] family Assessment & Plan (04/30/2020 12:17 PM FIREARMS MODEL MAKER): 54yo M with reported history of bipolar [...] and muscle pain. Plan to discharge patient 2/. Starting lithium augmentation with only moderate improvements [...] family Assessment & Plan (04/28/2020 8:02 AM FIREARMS MODEL MAKER): 54yo M with reported history of bipolar [...] and muscle pain. Plan to discharge patient 2/. Starting lithium augmentation with only moderate improvements seen in depressive symptoms with ECT, plan to up titrate next week. - Continue OLANZapine, 20 mg, oral, Nightly, for depression - Continue Venlafaxine XR 150 mg PO daily, for depression - Start lithium 300mg nightly - ECT MWF, restarted 04/13, for refractory depression Assessment & Plan (04/27/2020 8:47 AM FIREARMS MODEL MAKER): 54yo M with reported history of bipolar [...] depression Assessment & Plan (04/26/2020 10:11 AM FIREARMS MODEL MAKER): 54yo M with reported history of bipolar [...] depression Assessment & Plan (04/25/2020 9:47 AM FIREARMS MODEL MAKER): 54yo M with reported history of bipolar [...] depression Assessment & Plan (04/24/2020 9:48 AM FIREARMS MODEL MAKER): 54yo M with reported history of bipolar [...] depression Assessment & Plan (04/23/2020 10:21 AM FIREARMS MODEL MAKER): 54yo M with reported history of bipolar [...] depression Assessment & Plan (04/21/2020 8:36 AM FIREARMS MODEL MAKER): 54yo M with reported history of bipolar [...] depression Assessment & Plan (04/20/2020 12:05 PM FIREARMS MODEL MAKER): 54yo M with reported history of bipolar [...] depression Assessment & Plan (04/19/2020 9:48 AM FIREARMS MODEL MAKER): 54yo M with reported history of bipolar [...] depression Assessment & Plan (04/18/2020 10:08 AM FIREARMS MODEL MAKER): 54yo M with reported history of bipolar [...] depression Assessment & Plan (04/17/2020 9:32 AM FIREARMS MODEL MAKER): 54yo M with reported history of bipolar [...] depression Assessment & Plan (04/16/2020 11:49 AM FIREARMS MODEL MAKER): 54yo M with reported history of bipolar [...] depression Assessment & Plan (04/14/2020 9:56 AM FIREARMS MODEL MAKER): 54yo M with reported history of bipolar [...] depression Assessment & Plan (04/13/2020 9:46 AM FIREARMS MODEL MAKER): 54yo M with reported history of bipolar [...] for ECT by cardiology, no diagnosis of ischemia/CO, no focal wall movement abnormalities on echo, [...] procedure Assessment & Plan (04/10/2020 3:25 PM FIREARMS MODEL MAKER): Presented to ED 04/02 with suicidal ideation, depression. Initially admitted to psychiatry for medication adjustment, received ECT x1 04/06 -Continue current meds: lexapro 5, effexor 112.5, olanzapine 20mg QHS - If COVID test is negative, transfer to Psychiatry floor. Assessment & Plan (04/08/2020 3:24 PM FIREARMS MODEL MAKER): Presented to ED 04/02 with suicidal ideation, depression. Initially admitted to psychiatry for medication adjustment, received ECT x1 04/06 -Psych consulted upon transfer to medicine but are following only peripherally over the weekend -Continue current meds: lexapro 5, effexor 112.5, olanzapine 20mg QHS -Psychiatry recommending discontinuing suicide precautions with 1:1 sitter Assessment & Plan (04/07/2020 6:14 AM FIREARMS MODEL MAKER): Presented to ED 04/02 with suicidal ideation, depression. Initially admitted to psychiatry for medication adjustment, received ECT x1 04/06 -Psych c/s upon transfer -Continue current meds: lexapro 5, effexor 112.5, olanzapine 20mg QHS -Suicide precautions, 1:1 sitter Assessment & Plan (04/12/2020 9:11 AM FIREARMS MODEL MAKER): 54yo M with reported history of bipolar [...] for ECT by cardiology, no diagnosis of ischemia/CO, no focal wall movement abnormalities on echo, [...] midnight Assessment & Plan (04/03/2020 2:04 PM FIREARMS MODEL MAKER): 54yo M with reported history of bipolar [...] interested in ECT, will facilitate transfer to Main to facilitate ECT consult Uptitrate SSRI and otherwise continue home depakote and zyprexa (pt reports taking these medications daily for past several yrs) PRNs agitation and comfort Milieu, supportive, and group therapy Apprec SW intervention Obtain collateral Full code Dispo: home with GERD (gastroesophageal reflux disease) Assessment & Plan (05/04/2020 12:54 PM FIREARMS MODEL MAKER): Patient has a long history of GERD. - Protonix 40 mg daily Assessment & Plan (05/03/2020 9:56 AM FIREARMS MODEL MAKER): Patient has a long history of GERD. - Protonix 40 mg daily Assessment & Plan (05/02/2020 11:57 AM FIREARMS MODEL MAKER): Patient has a long history of GERD. - Protonix 40 mg daily Assessment & Plan (05/01/2020 10:58 AM FIREARMS MODEL MAKER): Patient has a long history of GERD. - Protonix 40 mg daily Assessment & Plan (04/30/2020 12:17 PM FIREARMS MODEL MAKER): Patient has a long history of GERD. - Protonix 40 mg daily Assessment & Plan (04/28/2020 8:00 AM FIREARMS MODEL MAKER): Patient has a long history of GERD. -Protonix 40 mg daily Assessment & Plan (04/27/2020 8:47 AM FIREARMS MODEL MAKER): Patient has a long history of GERD. -Protonix 40 mg daily Assessment & Plan (04/26/2020 10:11 AM FIREARMS MODEL MAKER): Patient has a long history of GERD. -Protonix 40 mg daily Assessment & Plan (04/25/2020 9:45 AM FIREARMS MODEL MAKER): Patient has a long history of GERD. -Protonix 40 mg daily Assessment & Plan (04/24/2020 9:48 AM FIREARMS MODEL MAKER): Patient has a long history of GERD. -Protonix 40 mg daily Assessment & Plan (04/23/2020 10:21 AM FIREARMS MODEL MAKER): Patient has a long history of GERD. -Protonix 40 mg daily Assessment & Plan (04/21/2020 8:37 AM FIREARMS MODEL MAKER): Patient has a long history of GERD. -Protonix 40 mg daily Assessment & Plan (04/20/2020 12:05 PM FIREARMS MODEL MAKER): Patient has a long history of GERD. -Protonix 40 mg daily Assessment & Plan (04/19/2020 9:46 AM FIREARMS MODEL MAKER): Patient has a long history of GERD. -Protonix 40 mg daily Assessment & Plan (04/18/2020 10:09 AM FIREARMS MODEL MAKER): Patient has a long history of GERD. -Protonix 40 mg daily Assessment & Plan (04/17/2020 9:31 AM FIREARMS MODEL MAKER): Patient has a long history of GERD. -Protonix 40 mg daily Assessment & Plan (04/16/2020 11:51 AM FIREARMS MODEL MAKER): Patient has a long history of GERD. -Protonix 40 mg daily Assessment & Plan (04/14/2020 9:56 AM FIREARMS MODEL MAKER): Patient has a long history of GERD. -Protonix 40 mg daily Assessment & Plan (04/10/2020 3:25 PM FIREARMS MODEL MAKER): Continue pantoprazole Assessment & Plan (04/08/2020 3:17 PM FIREARMS MODEL MAKER): Continue pantoprazole Assessment & Plan (04/07/2020 6:15 AM FIREARMS MODEL MAKER): Continue pantoprazole Assessment & Plan (04/03/2020 5:54 PM FIREARMS MODEL MAKER): Patient has a long history of GERD. -Protonix 40 mg daily Hypothyroidism 04/03/2020 Assessment & Plan (05/04/2020 12:54 PM FIREARMS MODEL MAKER): Patient carries a diagnosis of hypothyroidism for several years. He is currently treated on levothyroxine 75 mcg daily. - Repeat TFT tests in 6 weeks - continue levothyroxine 75 mcg daily Assessment & Plan (05/03/2020 9:56 AM FIREARMS MODEL MAKER): Patient carries a diagnosis of hypothyroidism for several years. He is currently treated on levothyroxine 75 mcg daily. - Repeat TFT tests in 6 weeks - continue levothyroxine 75 mcg daily Assessment & Plan (05/02/2020 11:57 AM FIREARMS MODEL MAKER): Patient carries a diagnosis of hyperthyroidism for several years. He is currently treated on levothyroxine 75 mcg daily. - Repeat TFT tests in 6 weeks - continue levothyroxine 75 mcg daily Assessment & Plan (05/01/2020 10:58 AM FIREARMS MODEL MAKER): Patient carries a diagnosis of hyperthyroidism for several years. He is currently treated on levothyroxine 75 mcg daily. - Repeat TFT tests in 6 weeks - continue levothyroxine 75 mcg daily Assessment & Plan (04/30/2020 12:17 PM FIREARMS MODEL MAKER): Patient carries a diagnosis of hyperthyroidism for several years. He is currently treated on levothyroxine 75 mcg daily. - Repeat TFT tests in 6 weeks - continue levothyroxine 75 mcg daily Assessment & Plan (04/28/2020 8:00 AM FIREARMS MODEL MAKER): Patient carries a diagnosis of hyperthyroidism for several years. He is currently treated on levothyroxine 75 mcg daily. - Repeat TFT tests in 6 weeks - continue levothyroxine 75 mcg daily Assessment & Plan (04/27/2020 8:47 AM FIREARMS MODEL MAKER): Patient carries a diagnosis of hyperthyroidism for several years. He is currently treated on levothyroxine 75 mcg daily. - Repeat TFT tests in 6 weeks - continue levothyroxine 75 mcg daily Assessment & Plan (04/26/2020 10:11 AM FIREARMS MODEL MAKER): Patient carries a diagnosis of hyperthyroidism for several years. He is currently treated on levothyroxine 75 mcg daily. - Repeat TFT tests in 6 weeks - continue levothyroxine 75 mcg daily Assessment & Plan (04/25/2020 9:45 AM FIREARMS MODEL MAKER): Patient carries a diagnosis of hyperthyroidism for several years. He is currently treated on levothyroxine 75 mcg daily. - Repeat TFT tests in 6 weeks - continue levothyroxine 75 mcg daily Assessment & Plan (04/24/2020 9:48 AM FIREARMS MODEL MAKER): Patient carries a diagnosis of hyperthyroidism for several years. He is currently treated on levothyroxine 75 mcg daily. - Repeat TFT tests in 6 weeks - continue levothyroxine 75 mcg daily Assessment & Plan (04/23/2020 10:21 AM FIREARMS MODEL MAKER): Patient carries a diagnosis of hyperthyroidism for several years. He is currently treated on levothyroxine 75 mcg daily. - Repeat TFT tests in 6 weeks - continue levothyroxine 75 mcg daily Assessment & Plan (04/21/2020 8:37 AM FIREARMS MODEL MAKER): Patient carries a diagnosis of hyperthyroidism for several years. He is currently treated on levothyroxine 75 mcg daily. - Repeat TFT tests in 6 weeks - continue levothyroxine 75 mcg daily Assessment & Plan (04/20/2020 12:05 PM FIREARMS MODEL MAKER): Patient carries a diagnosis of hyperthyroidism for several years. He is currently treated on levothyroxine 75 mcg daily. - Repeat TFT tests in 6 weeks - continue levothyroxine 75 mcg daily Assessment & Plan (04/19/2020 9:46 AM FIREARMS MODEL MAKER): Patient carries a diagnosis of hyperthyroidism for several years. He is currently treated on levothyroxine 75 mcg daily. - Repeat TFT tests in 6 weeks - continue levothyroxine 75 mcg daily Assessment & Plan (04/18/2020 10:09 AM FIREARMS MODEL MAKER): Patient carries a diagnosis of hyperthyroidism for several years. He is currently treated on levothyroxine 75 mcg daily. - Repeat TFT tests in 6 weeks - continue levothyroxine 75 mcg daily Assessment & Plan (04/17/2020 9:31 AM FIREARMS MODEL MAKER): Patient carries a diagnosis of hyperthyroidism for several years. He is currently treated on levothyroxine 75 mcg daily. - Repeat TFT tests in 6 weeks - continue levothyroxine 75 mcg daily Assessment & Plan (04/16/2020 11:51 AM FIREARMS MODEL MAKER): Patient carries a diagnosis of hyperthyroidism for several years. He is currently treated on levothyroxine 75 mcg daily. - Repeat TFT tests in 6 weeks - continue levothyroxine 75 mcg daily Assessment & Plan (04/14/2020 9:57 AM FIREARMS MODEL MAKER): Patient carries a diagnosis of hyperthyroidism for several years. He is currently treated on levothyroxine 75 mcg daily. - Repeat TFT tests in 6 weeks - continue levothyroxine 75 mcg daily Assessment & Plan (04/10/2020 3:25 PM FIREARMS MODEL MAKER): 04/02: TSH 6.49, T4 WNL at 1.38 Continue synthroid 75mcg; repeat TFTs 6-8 weeks Assessment & Plan (04/08/2020 3:17 PM FIREARMS MODEL MAKER): 04/02: TSH 6.49, T4 WNL at 1.38 Continue synthroid 75mcg; repeat TFTs 6-8 weeks Assessment & Plan (04/07/2020 6:16 AM FIREARMS MODEL MAKER): 04/02: TSH 6.49, T4 WNL at 1.38 Continue synthroid 75mcg; repeat TFTs 6-8 weeks Assessment & Plan (04/10/2020 9:35 PM FIREARMS MODEL MAKER): Patient carries a diagnosis of hyperthyroidism for several years. He is currently treated on levothyroxine 75 mcg daily. - Repeat TFT tests in 6 weeks - continue levothyroxine 75 mcg daily Hyperlipemia 04/03/2020 Assessment & Plan (05/04/2020 12:55 PM FIREARMS MODEL MAKER): Has a stated history of hyperlipidemia has been stably treated with atorvastatin 40 mg daily for many years. Patient's LDL low on lipid panel. Notable elevated triglycerides but not fasting sample. - atorvastatin 40 mg daily - fenofibrate 145mg daily Assessment & Plan (05/03/2020 9:56 AM FIREARMS MODEL MAKER): Has a stated history of hyperlipidemia has been stably treated with atorvastatin 40 mg daily for many years. Patient's LDL low on lipid panel. Notable elevated triglycerides but not fasting sample. - atorvastatin 40 mg daily - fenofibrate 145mg daily Assessment & Plan (05/02/2020 11:57 AM FIREARMS MODEL MAKER): Has a stated history of hyperlipidemia has been stably treated with atorvastatin 40 mg daily for many years. Patient's LDL low on lipid panel. Notable elevated triglycerides but not fasting sample. - atorvastatin 40 mg daily - fenofibrate 145mg daily Assessment & Plan (05/01/2020 10:58 AM FIREARMS MODEL MAKER): Has a stated history of hyperlipidemia has been stably treated with atorvastatin 40 mg daily for many years. Patient's LDL low on lipid panel. Notable elevated triglycerides but not fasting sample. - atorvastatin 40 mg daily - tricor 145mg daily Assessment & Plan (04/30/2020 12:17 PM FIREARMS MODEL MAKER): Has a stated history of hyperlipidemia has been stably treated with atorvastatin 40 mg daily for many years. Patient's LDL low on lipid panel. Notable elevated triglycerides but not fasting sample. - atorvastatin 40 mg daily - tricor 145mg daily Assessment & Plan (04/28/2020 8:01 AM FIREARMS MODEL MAKER): Has a stated history of hyperlipidemia has been stably treated with atorvastatin 40 mg daily for many years. Patient's LDL low on lipid panel. Notable elevated triglycerides but not fasting sample. - atorvastatin 40 mg daily - tricor 145mg daily Assessment & Plan (04/27/2020 8:47 AM FIREARMS MODEL MAKER): Has a stated history of hyperlipidemia has been stably treated with atorvastatin 40 mg daily for many years. Patient's LDL low on lipid panel. Notable elevated triglycerides but not fasting sample. - atorvastatin 40 mg daily - tricor 145mg daily Assessment & Plan (04/26/2020 10:11 AM FIREARMS MODEL MAKER): Has a stated history of hyperlipidemia has been stably treated with atorvastatin 40 mg daily for many years. Patient's LDL low on lipid panel. Notable elevated triglycerides but not fasting sample. - atorvastatin 40 mg daily - tricor 145mg daily Assessment & Plan (04/25/2020 9:45 AM FIREARMS MODEL MAKER): Has a stated history of hyperlipidemia has [...] daily Assessment & Plan (04/24/2020 9:48 AM FIREARMS MODEL MAKER): Has a stated history of hyperlipidemia has [...] daily Assessment & Plan (04/23/2020 10:21 AM FIREARMS MODEL MAKER): Has a stated history of hyperlipidemia has [...] daily Assessment & Plan (04/21/2020 8:38 AM FIREARMS MODEL MAKER): Has a stated history of hyperlipidemia has [...] daily Assessment & Plan (04/20/2020 12:05 PM FIREARMS MODEL MAKER): Has a stated history of hyperlipidemia has [...] daily Assessment & Plan (04/19/2020 9:46 AM FIREARMS MODEL MAKER): Has a stated history of hyperlipidemia has [...] daily Assessment & Plan (04/18/2020 10:09 AM FIREARMS MODEL MAKER): Has a stated history of hyperlipidemia has [...] daily Assessment & Plan (04/17/2020 9:31 AM FIREARMS MODEL MAKER): Has a stated history of hyperlipidemia has [...] daily Assessment & Plan (04/16/2020 11:51 AM FIREARMS MODEL MAKER): Has a stated history of hyperlipidemia has [...] daily Assessment & Plan (04/14/2020 9:56 AM FIREARMS MODEL MAKER): Has a stated history of hyperlipidemia has [...] daily Assessment & Plan (04/13/2020 9:46 AM FIREARMS MODEL MAKER): Has a stated history of hyperlipidemia has [...] daily Assessment & Plan (04/10/2020 3:25 PM FIREARMS MODEL MAKER): Continue atorvastatin 40 Assessment & Plan (04/08/2020 3:17 PM FIREARMS MODEL MAKER): Continue atorvastatin 40 Assessment & Plan (04/07/2020 6:15 AM FIREARMS MODEL MAKER): Continue atorvastatin 40 Assessment & Plan (04/12/2020 9:03 AM FIREARMS MODEL MAKER): Has a stated history of hyperlipidemia has [...] (08/31/2018): Added automatically from request for surgery [id number] Assessment & Plan (09/06/2018 12:49 PM CDT): The procedure along with the risks, benefits, and post operative period was discussed with the patient and his significant other, to which they agree. Will schedule with concurrent ventral incisional hernia. History of removal of retained hardware 01/23/20 History of surgery 01/23/2016 Fracture of calcaneus 07/25/2015 Fracture of navicular bone of foot 05/15/2015 Mass of colon 12/22/2013 Overview (06/26/2016): Mass of colon Severe episode of recurrent major depressive disorder, without psychotic features Current Treatment and Therapy Plans No current plan information found. Other Current Plans ECT THERAPY PLAN* Plan Start Date:04/06/2020 Plan Provider:Libia Gonzalez MD Linked Problems Depressive disorder Treatment Medications No medications scheduled. Past Treatment and Therapy Plans No past plan information found. Lifetime Dose Tracking * Chemical Lifetime Dose Automatic Entry Manual Entr y Fluoro Time 61.13 minutes 61.13 minutes 0 minutes Air kerma at the reference point (Ka,r) 1.58 mGy 1 .58 mGy 0 mGy DLP 704 mGycm 704 mGycm 0 mGycm Resolved Problems Problem Noted Date Diagnosed Date Resolved Date Gallstones 03/10/2024 04/08/2024 ADILENE (acute kidney injury) 04/10/2020 Assessment & Plan (05/04/2020 12:55 PM FIREARMS MODEL MAKER): Cr 1.3 -> 1.22 resolving. Baseline <1. - encourage fluids - avoid nephrotoxic meds Assessment & Plan (05/03/2020 9:56 AM FIREARMS MODEL MAKER): Cr 1.3 -> 1.22 resolving. Baseline <1. - encourage fluids - avoid nephrotoxic meds Assessment & Plan (05/02/2020 11:57 AM [employer]): Cr 1.3 -> 1.22 resolving. Baseline <1. - encourage fluids - avoid nephrotoxic meds Assessment & Plan (05/01/2020 10:58 AM [employer]): Cr 1.3 -> 1.22 resolving. Baseline <1. - encourage fluids - avoid nephrotoxic meds Assessment & Plan (04/19/2020 9:46 AM [employer]): Cr 1.3 -> 1.22 resolving. Baseline <1. - encourage fluids - avoid nephrotoxic meds Assessment & Plan (04/18/2020 10:09 AM [employer]): Cr 1.3 -> 1.22 resolving. Baseline <1. - encourage fluids - avoid nephrotoxic meds Assessment & Plan (04/16/2020 11:51 AM [employer]): Cr 1.3 -> 1.22 resolving. Baseline <1. - encourage fluids - avoid nephrotoxic meds Assessment & Plan (04/14/2020 9:57 AM [employer]): Cr 1.3 -> 1.22 resolving. Baseline <1. - encourage fluids - avoid nephrotoxic meds Assessment & Plan (04/13/2020 9:47 AM [employer]): Cr 1.3 -> 1.22 resolving. Baseline <1. - encourage fluids - avoid nephrotoxic meds Assessment & Plan (04/12/2020 9:04 AM [employer]): Cr 1.3 -> 1.22 resolving. Baseline <1. - encourage fluids - avoid nephrotoxic meds Diarrhea 04/10/2020 04/20/2020 Assessment & Plan (05/04/2020 12:55 PM [employer]): Patient recently had constipation, was treated with BID miralax and senna- docusate. Was having diarrhea last week so scheduled bowel regimen discontinued. - discontinued daily senna-docusate - miralax PRN Assessment & Plan (05/03/2020 9:56 AM [employer]): Patient recently had constipation, was treated with BID miralax and senna- docusate. Was having diarrhea last week so scheduled bowel regimen discontinued. - discontinued daily senna-docusate - miralax PRN Assessment & Plan (05/01/2020 10:59 AM [employer]): Patient recently had constipation, was treated with BID miralax and senna- docusate. Was having diarrhea last week so scheduled bowel regimen discontinued. - discontinued daily senna-docusate - miralax PRN Assessment & Plan (04/19/2020 9:47 AM [employer]): Patient recently had constipation, was treated with BID miralax and senna- docusate. Was having diarrhea last week so scheduled bowel regimen discontinued. - discontinued daily senna-docusate - miralax PRN Assessment & Plan (04/16/2020 11:52 AM [employer]): Patient recently had constipation, was treated with BID miralax and senna- docusate. Was having diarrhea last week so scheduled bowel regimen discontinued. - discontinue daily senna-docusate - miralax PRN Assessment & Plan (04/14/2020 9:57 AM [employer]): Patient recently had constipation, was treated with BID miralax and senna- docusate. Endorsing nonbloody diarrhea for last 2 days. - discontinue daily senna-docusate - miralax PRN Assessment & Plan (04/10/2020 10:09 PM [employer]): Patient recently had constipation, was treated with BID miralax and senna- docusate. Endorsing nonbloody diarrhea for last 2 days. - discontinue daily senna-docusate - miralax PRN Ventral hernia without obstr uction or gangrene 08/31/2018 04/20/2020 Overview (08/31/2018): Added automatically from request for surgery [id number] Assessment & Plan (09/06/2018 12:51 PM CDT): The procedure along with the risks, benefits, and post operative period were discussed with the patient and his significant other who agree. Fracture of navicular bone of foot 05/16/2015 04/20/2020
[2024-07-04 09:54] LABS: Band Neutrophils Percent 0 % (0-6); Lymphocytes Absolute Manual 1.16 K/mm3 (1.1-4.5); Lymphocytes Percent Manual 20 % (18-44); Monocytes Absolute Manual 0.81 K/mm3 (0.1-0.90); Monocytes Percent Manual 14 % (3-9); Neutrophils Absolute Manual 3.59 K/mm3 (1.3-6.7); Neutrophils Percent Manual 62 % (46-73); Total Cells Counted 100
[2024-07-04 09:55] LABS: Eosinophils Absolute Manual 0.23 K/mm3 (0.02-0.50); Eosinophils Percent Manual 4 % (1-6); Platelet Estimate Adequate (Adequate)
--- NOTE | 2024-07-04 09:56 | PC.NURSE ---
Pt leaves with Radiology for CXR
[2024-07-04 09:58] LABS: Alanine Aminotransferase 24 U/L (16-63); Albumin Level 3.6 g/dL (3.4-5.0); Alkaline Phosphatase 136 U/L (46-116); Anion Gap 11 mmol/L (4-12); Aspartate Amino Transferase 26 U/L (15-37); Bilirubin,Total 0.4 mg/dL (0.00-1.00); Blood Urea Nitrogen 7 mg/dL (7-18); Carbon Dioxide 28 mmol/L (21-32); Chloride 104 mmol/L (98-108); Estimated CRCL calculation 63 ml/min; Estimated Glomerular Filt Rate 59; Glucose 108 mg/dL (70-99); Magnesium 1.7 mg/dL (1.8-2.4); NT Pro B Type Natriuretic Pept 18 pg/mL (0-125); Osmolality Calculated 295 mOsm/kg (285-295); Potassium 3.6 mmol/L (3.5-5.1); Sodium 143 mmol/L (136-145); Total Protein 7.5 g/dL (6.4-8.2); Troponin I 10.5 ng/L (0.00-60.4)
[2024-07-04 09:59] LABS: Influenza A QL RT-PCR Negative (Negative); Influenza B QL RT-PCR Negative (Negative); RSV RNA, RT-PCR Negative (Negative); SARS-CoV-2 RNA PCR Negative (Negative)
--- NOTE | 2024-07-04 10:03 | PC.NURSE ---
Pt returns from Xray
--- NOTE | 2024-07-04 11:20 | PC.NURSE ---
Pt leaves with radiology to CT scan
--- NOTE | 2024-07-04 11:35 | PC.NURSE ---
Pt returns from CT scan
--- OUTSIDE RECORDS SUMMARY | 2024-07-04 11:39 | XMS_ITS ---
Author Organization Unknown Address [address] [place], [place] [id number] Phone Care Team Providers Care Irish Moss Operator Name Role Phone LIBRA AMINA Attending Unavailable [...] DIFF - Collect Date/T nadia: 08/05/2023 10:34 [facility] ID: [id number] [place], [place], [id number] LOINC: 67329-0 Test Value Unit Reference Range Code Code System Flag WBC 7.5 10^3uL L=4.8 H=10.8 RBC 4.53 10^6uL L=4.60 H=6.20 L HEMOGLOBIN 14.1 g/dL L=14.0 H=18.0 718-7 LOINC HEMATOCRIT 41.5 VOL% L=42.0 H=52.0 4544-3 LOINC L MCV 91.6 fL L=80.0 H=94.0 MCH 31.1 pg L=27.0 H=32.0 MCHC 34.0 g/dL L=32.0 H=36.0 PLATELETS 242 10^3uL L=100 H=400 05987-0 LOINC RDW 13.1 % L=11.7 H=15.5 %GRAN 64.6 % L=40.0 H=70.0 56635-4 LOINC %LYMPH 18.1 % L=20.0 H=45.0 736-9 LOINC L %MONO 11.6 % L=2.0 H=10.0 15034-9 LOINC H %EOS 3.6 % L=0.0 H=6.0 713-8 LOINC %BASO 0.8 % L=0.0 H=3.0 706-2 LOINC #NEUT 4.9 10^3uL L=1.9 H=7.6 96240-7 LOINC #LYMPH 1.4 10^3uL L=0.9 H=4.9 06969-6 LOINC #MONO 0.9 10^3uL L=0.1 H=0.9 50238-9 LOINC #EOS 0.3 10^3uL L=0.0 H=0.6 712-0 LOINC #BASO 0.06 10^3uL L=0.00 H=0.10 95617-0 LOINC #IM GRANS 0.1 10^3uL L=0.0 H=7.0 40785-7 LOINC %IM GRANS 1.3 % L=0.0 H=5.0 90067-6 LOINC %NRB 0.0 L=0.0 H=0.2 96180-2 LOINC #NRB 0.000 L=0.000 H=0.012 83126-4 LOINC MANUAL DIFF NOT INDICATED RBC MORPH NOT INDICATED HGB A1C -GLYCOHEMOGLOBIN - C ollect Date/Time: 08/05/2023 10:34 [facility] ID: [id number] [place], [id number] LOINC: 4548-4 Test Value Unit Reference Range Code Code System Flag HGBA1C 5.9 % 4548-4 LOINC LIVER PROFILE - Collect Date /Time: 08/05/2023 10:34 [facility] ID: [id number] [place] [address], [id number] LOINC: 76538-8 Test Value Unit Reference Range Code Code System Flag ALT 84 U/L L=9 H=72 1742-6 LOINC H AST 71 U/L L=15 H=46 1920-8 LOINC H ALKALINE PHOS 101 U/L L=38 H=126 6768-6 LOINC TOTAL PROTEIN 7.9 g/L L=6.3 H=8.2 2885-2 LOINC TOTAL BILI 0.5 mg/dL L=0.2 H=1.3 1975-2 LOINC DIRECT BILI 0.0 mg/dL L=0.0 H=0.3 1967-7 LOINC INDIRECT BILI 0.30 mg/dL L=0.00 H=1.10 1970-1 LOINC ALBUMIN 4.4 G/dL L=3.5 H=5.0 175-7 LOINC LIPID PANEL - Collect Date/T nadia: 08/05/2023 10:34 [facility] ID: [id number] [place], [id number] LOINC: 18973-7 Test Value Unit Reference Range Code Code System Flag FASTING NO CHOLESTEROL 256 mg/dL L=0 H=200 3-3 LOINC H TRIGLYCERIDE 175 mg/dL L=0 H=150 2571-8 LOINC H HDL 52 mg/dL L=40 H=60 5-9 LOINC LDL 156 mg/dL 2088-1 LOINC SEROTONIN - Collect Date/Lux e: 08/05/2023 10:34 [facility] ID: [id number] [place], [place], [id number] LOINC: 85863-6 Test Value Unit Reference Range Code Code System Flag Serotonin, Serum 18 31-207 40651-5 LOINC L BASIC METABOLIC PANEL - Jairo ect Date/Time: 08/05/2023 10:34 [facility] ID: [id number] [place], [place], [id number] LOINC: 51369-9 Test Value Unit Reference Range Code Code System Flag FASTING NO BUN 11 mg/dL L=7 H=20 3094-0 LOINC CREATININE 1.20 mg/dL L=0.66 H=1.25 2160-0 LOINC GLUCOSE 113 mg/dL L=74 H=106 2345-7 LOINC H CALCIUM 9.3 mg/dL L=8.3 H=10.5 10121-0 LOINC SODIUM 132 mmol/L L=132 H=144 2951-2 LOINC POTASSIUM 3.9 mmol/L L=3.5 H=5.1 2823-3 LOINC CHLORIDE 94 mmol/L L=98 H=107 2075-0 LOINC L CO2 31.0 mmol/L L=22.0 H=30.0 2028-9 LOINC H ANION GAP 11 L=10 H=20 81091-4 LOINC BUN/CREAT 9.2 3097-3 LOINC AGE 58 93142-3 LOINC eGFR NON-AFR 66 ml/min eGFR AFR AMER 80 ml/min Social History Type Status Start Date End Date Code Code Syst em Smoking History Never smoker (Never Smoked) [id number] SNOMED CT Sex Male Hospital Discharge Instructions [...]
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
--- OUTSIDE RECORDS SUMMARY | 2024-07-04 11:39 | XMS_ITS ---
Author Organization Unknown Address [address] [place] [phone] Phone Care Team Providers Care Door Paneler Name Role Phone ROBBIE CEJA Attending Unavailable [...] em Smoking History Never smoker (Never Smoked) [id number] SNOMED CT Sex Male Hospital Discharge Instructions [...]
--- OUTSIDE RECORDS SUMMARY | 2024-07-04 11:40 | XMS_ITS ---
Author Organization Unknown Address [address] [place], [place] [id number] Phone Care Team Providers Care Process Treater Name Role Phone TONYA Forrest Attending Unavailable [...] DIFF - Collect Date/T nadia: 01/26/2023 15:30 [facility] ID: [id number] [address] [place], [place], [id number] LOINC: 69276-3 Test Value Unit Reference Range Code Code System Flag WBC 10.1 10^3uL L=4.8 H=10.8 RBC 4.22 10^6uL L=4.60 H=6.20 L HEMOGLOBIN 13.5 g/dL L=14.0 H=18.0 718-7 LOINC L HEMATOCRIT 39.3 VOL% L=42.0 H=52.0 4544-3 LOINC L MCV 93.1 fL L=80.0 H=94.0 MCH 32.0 pg L=27.0 H=32.0 MCHC 34.4 g/dL L=32.0 H=36.0 PLATELETS 227 10^3uL L=100 H=400 96157-4 LOINC RDW 12.7 % L=11.7 H=15.5 %GRAN 72.5 % L=40.0 H=70.0 84071-9 LOINC H %LYMPH 12.1 % L=20.0 H=45.0 736-9 LOINC L %MONO 11.1 % L=2.0 H=10.0 20647-9 LOINC H %EOS 3.2 % L=0.0 H=6.0 713-8 LOINC %BASO 0.5 % L=0.0 H=3.0 706-2 LOINC #NEUT 7.3 10^3uL L=1.9 H=7.6 76261-2 LOINC #LYMPH 1.2 10^3uL L=0.9 H=4.9 35597-7 LOINC #MONO 1.1 10^3uL L=0.1 H=0.9 46219-9 LOINC H #EOS 0.3 10^3uL L=0.0 H=0.6 712-0 LOINC #BASO 0.05 10^3uL L=0.00 H=0.10 67092-4 LOINC #IM GRANS 0.1 10^3uL L=0.0 H=7.0 10894-2 LOINC %IM GRANS 0.6 % L=0.0 H=5.0 64216-8 LOINC %NRB 0.0 L=0.0 H=0.2 73153-3 LOINC #NRB 0.000 L=0.000 H=0.012 76186-3 LOINC MANUAL DIFF NOT INDICATED RBC MORPH NOT INDICATED COMPREHENSIVE METABOLIC PANE L - Collect Date/Time: 01/26/2023 15:30 [facility] ID: [id number] [address] [place], [place], [id number] LOINC: 23950-7 Test Value Unit Reference Range Code Code [...] 2028-9 LOINC ANION GAP 13 L=10 H=20 00866-3 LOINC OSMOLALITY 271 mOs/kG L=280 H=296 14491-7 LOINC L BUN/CREAT 9.2 3097-3 LOINC CALCIUM 9.4 mg/dL L=8.3 H=10.5 52170-6 LOINC AST 29 U/L L=15 H=46 1920-8 LOINC ALT 33 U/L L=9 H=72 1742-6 LOINC ALKALINE PHOS 115 U/L L=38 H=126 6768-6 LOINC TOTAL BILI 0.6 mg/dL L=0.2 H=1.3 1975-2 LOINC ALBUMIN 4.5 G/dL L=3.5 H=5.0 1751-7 LOINC TOTAL PROTEIN 8.1 g/L L=6.3 H=8.2 2885-2 LOINC A/G RATIO 1.3 49906-7 LOINC AGE 57 50195-5 LOINC eGFR NON-AFR 67 ml/min eGFR AFR AMER 81 ml/min URINALYSIS w/Microscopy/C&S if indicated - Collect Date/Time: 01/26/2023 14:34 [facility] ID: [id number] [address] [place], [place], [id number] LOINC: 86199-4 Test Value Unit Reference Range Code Code System Flag UR SOURCE UNKNOWN 16300-0 LOINC COLOR LT YELLOW YELLOW 5778-6 LOINC CLARITY CLEAR CLEAR 48803-3 LOINC SPEC GRAVITY <=1.005 1.000-1.030 5811-5 LOINC PH 5.5 5.0 - 6.5 5803-2 LOINC LEUK EST NEGATIVE NEGATIVE 5799-2 LOINC NITRATE NEGATIVE NEGATIVE PROTEIN NEGATIVE NEGATIVE 5804-0 LOINC GLUCOSE NEGATIVE NEGATIVE 50821-9 LOINC KETONES NEGATIVE NEGATIVE 60791-3 LOINC UROBILINOGEN 0.2 NEGATIVE 5818-0 LOINC BILIRUBIN NEGATIVE NEGATIVE 55871-6 LOINC BLOOD NEGATIVE NEGATIVE 71603-5 LOINC WBC 0-2 0 - 2 82553-8 LOINC RBC 0-2 0 - 2 26859-5 LOINC EPITHELIAL RARE RARE-FEW 21496-6 LOINC BACTERIA NONE SEEN NONE SEEN 24004-3 LOINC MUCUS NONE SEEN NONE SEEN 8247-9 LOINC YEAST NOT PRESENT NOT PRESENT 73148-9 LOINC CASTS NONE SEEN 28587-6 LOINC CRYSTALS NONE SEEN 28796-3 LOINC CULTURE? NO 8251-1 LOINC DIAGNOSIS N/A CT ABD/PEL W/ CONTRAST - Com pleted: 01/26/2023 16:32 LOINC: 20405-4 EXAM DESCRIPTION: CT ABD/PEL W/ CONTRAST REASON [...] for this examination. CONTRAST TYPE/DOSE: 100 of [id number] injected via lac COMPARISON: None available on [...] Wetzel M.D., D.O. MW: RAMIRO Report ID: [id number] Reading Location: [id number] Social History Type Status Start Date End Date Code Code Syst em Smoking History Never smoker (Never Smoked) 023932520 SNOMED CT Sex Male Hospital Discharge Instructions [...]
--- OUTSIDE RECORDS SUMMARY | 2024-07-04 11:40 | XMS_ITS ---
Author Organization [facility] Address [address] [place] [address] Phone Care Team Providers Care Manager Wound Care Name Role Phone [place] Kevin LU Primary Care Provider [phone] Amy Allen APRN, CAR SUPERVISOR Unavailable + [phone] Dawit MARISCAL MD, Courtney Unavailable [phone] Brad Bone MD Unavailable [phone] Vanda Jimenez APRN, CAR SUPERVISOR Unavailable Min Mario MD Unavailable Jose Chronic Condition Monitoring Status:Enrolled (Active) Start date:04/20/2024 Enrollment date:04/20/2024 Related social drivers of health:Intimate Partner Violence, Social Connections, Alcohol Use, Tobacco Use, Financial Resource Strain,Depression, Stress, Physical Activity, Food Insecurity, Transportation Needs, Housing Stability, Utilities Continued Care and Services Coordination
--- OUTSIDE RECORDS SUMMARY | 2024-07-04 11:40 | XMS_ITS | Clinical Summary ---
Author Organization [facility] Facility Address [address] [address] Care Team Providers Care Malted Milk Mixer Name Role Phone Kevin Meyer Primary Care Provider [phone] Allergies Active Allergy Reactions Criticality Noted Date [...] 03/08/2015 Insurance Medicare Medicaid [place] Care Teams Malted Milk Mixer Relationship Specialty Start Date End Date Kevin Meyer PA [address] [place] [address] PCP - General Internal Medicine 10/20/18
--- OUTSIDE RECORDS SUMMARY | 2024-07-04 11:40 | XMS_ITS | Encounter Summary ---
Author Organization [facility] Healthcare Address [address] [place] [address] Care Team Providers Care Skeins Yarn Examiner Name Role Phone Kevin Meyer Primary Care Provider [phone] Kevin Meyer Unavailable [phone] Benja Esteban MD Unavailable [phone] Samy Bravo MD PhD Unavailable [phone] Vivian Horn RN Unavailable [phone] Encounter Details Date Type Department Care Team (Late st Contact Info) Description 09/04/2020 Telephone [facility] [address] [place] [address] Dorothy Case, RT Social History [...] declined 04/03/2020 How often do you attend mu-ism or yazidism serv ices? Patient declined 04/03/2020 Do you belong to any clubs o r organizations such as mu-ism groups, unions, fraternal or athletic groups, or [...] Date Recorded PHQ-2 Total Score 4 04/03/2020 [facility] - Occupational Stress [...] place to sleep or slept in a residential (including now)? 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 Gender Identity Male 03/26/2021 11:53 AM CARD DEALER Sexual Orientation Choose not to disclose 2021 11:53 AM CARD DEALER Occupation Industry Job Start Date Job End Date disabled Not on file Not on file Not on file documented as of this encounter Plan of Treatment Not on file documented as of this encounter Visit Diagnoses Not on filedocumented in this encounter Care Teams Skeins Yarn Examiner Relationship Specialty Start Date End Date Kevin Meyer PA [address] [place] [address] PCP - General 03/23/19 Kevin Meyer PA [address] [place] [address] 03/23/19 Benja Esteban MD [address] [place] [address] Medical Oncologist/Earth Science Faculty Member Hematology and Oncology 02/28/20 Samy Bravo MD PhD [address] [place] [address] Resident Psychiatry 05/31/20 09/17/20 Vivian Horn, RN [address] [address] [facility] Outpatient Veneer Production Machine Operator 02/01/21 02/28/21 documented as of this encounter
--- OUTSIDE RECORDS SUMMARY | 2024-07-04 11:40 | XMS_ITS | Clinical Summary ---
Author Organization [facility] Address [address] [place] [address] Phone Care Team Providers Care Mechanical Maintenance Engineer Name Role Phone Unavailable Unavailable Unavailable [...] On 05/29/2022 9:44AM By Ar COX ; [facility] Pregabalin 50 MG Oral Capsule 05/01/2022 Provider: Diagnosis: 50mg BID Last Documented On 05/01/2022 1:59PM By Freida Britt RN ; [facility] Rimegepant Sulfate 75 MG Oral Tablet Disintegrating Provider: Diagnosis: 75mg daily prn for migraine [place] Last Documented On 05/01/2022 2:00PM By Freida Britt RN ; [facility] traMADol HCl 50 MG Oral Tablet 05/01/2022 Provider: Diagnosis: 1 tab po q 6 hrs prn Last Documented On 05/01/2022 2:01PM By Freida Britt RN ; [facility] Effexor XR 150 MG Oral Capsule Extended Release 24 Alexandra r 05/01/2022 Provider: Diagnosis: 1 daily Last Documented On 05/01/2022 2:02PM By Freida Britt RN ; [facility] rOPINIRole HCl 1 MG Oral Tablet 05/01/2022 Provider: Diagnosis: TID prn Last Documented On 05/01/2022 2:02PM By Freida Britt RN ; [facility] Prazosin HCl 1 MG Oral Capsule 05/01/2022 Provider: Diagnosis: Last Documented On 05/01/2022 1:59PM By Freida Britt RN ; [facility] QUEtiapine Fumarate 100 MG Oral Tablet 05/01/2022 Pr ovider: Diagnosis: Last Documented On 05/01/2022 1:58PM By Freida Britt RN ; [facility] Cyclobenzaprine HCl 10 MG Oral Tablet 05/01/2022 Pro vider: Diagnosis: 1 tab po TID prn for muscle spasms Last Documented On 05/01/2022 1:58PM By Freida Britt RN ; [facility] Loreev XR 1 MG Oral Capsule ER 24 Hour Sprinkle 2022 Provider: Diagnosis: Last Documented On 05/01/2022 1:35PM By Ar COX ; [facility] Venlafaxine HCl ER 150 MG Or al Capsule Extended Release 24 Hour 02/28/2021 Provider: Diagnosis: Last Documented On 02/28/2021 9:15AM By Ar COX ; [facility] Levothyroxine Sodium 75 MCG Oral Capsule 02/28/2021 Provider: Diagnosis: Last Documented On 02/28/2021 9:14AM By Ar COX ; [facility] Past Medications on file Cyclobenzaprine HCl 10 MG Oral Tablet 06/20/2022 - 06/25/2022 Provider: NALDO BETH MD Diagnosis: Dorsalgia, unspecified 1 tab po TID prn for muscle spasms Last Documented On 06/20/2022 12:32PM By Naldo Beth MD ; [facility] Medications Administered Includes: Administered Medications from this [...] refilled several times through on orthopedist in [place], [place] as well as an oncologist in [place], [place]) and has refilled at multiple pharmacies [...] Documented On 3 2:32PM ; [facility] No recent change in sleep 02/28/2021 Last Documented On 3 2:32PM ; [facility] [PHQ-2] Patient Health Questionnaire 2 i tem total score: 8 (Scale: 0-6) 02/28/2021 Last Documented On 3 2:32PM ; [facility] Difficulty walking 02/28/2021 Last Documented On 3 2:32PM ; [facility] No consumption of alcohol 02/28/2021 Last Documented On 3 2:32PM ; [facility] Not using drugs 02/28/2021 Last Documented On 3 2:32PM ; [facility] Smoking Status Unknown Procedures and Surgical History Surgical History Last Updated No Pacemaker 02/28/2021 Last Documented On 3 2:32PM ; [facility] Medical History Includes: Medical History addressed during this encounter Description Last Updated Blood pressure was high 02/28/2021 Last Documented On 3 2:32PM ; [facility] Hypertension 02/28/2021 Last Documented On 3 2:32PM ; [facility] No exposure to a contagious disease 11/2020 Last Documented On 3 2:32PM ; [facility] No previous psychiatric treatment 2020 Last Documented On 3 2:32PM ; [facility] Not taking OTC medications 02/28/2021 Last Documented On 3 2:32PM ; [facility] Taking medication for high blood pressur e 02/28/2021 Last Documented On 3 2:32PM ; [facility] 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 02/28/2021 Last Documented On 3 2:32PM ; [facility] Currently wearing eyeglasses 02/28/2021 Last Documented On 3 2:32PM ; [facility] Injection/Nerve blocks 02/28/2021 Last Documented On 3 2:32PM ; [facility] Moderate to severe pain 02/28/2021 Last Documented On 3 2:32PM ; [facility] No Pain Pump 02/28/2021 Last Documented On 3 2:32PM ; [facility] No Spinal cord stimulator 02/28/2021 Last Documented On 3 2:32PM ; [facility] Other method: 02/28/2021 Last Documented On 3 2:32PM ; [facility] Physical therapy 02/28/2021 Last Documented On 3 2:32PM ; [facility] Please list all illnesses/co nditions you have been diagnosed with: Bi polar manic depressed colon cancer 02/28/2021 Last Documented On 3 2:32PM ; [facility] Please list all surgeries: Dec colos gabby Apr 2015 ankle Jan 2021 ankle 02/28/2021 Last Documented On 3 2:32PM ; [facility] Surgery 02/28/2021 Last Documented On 3 2:32PM ; [facility] Uses a cane for support 02/28/2021 Last Documented On 3 2:32PM ; [facility] Uses a Knee Brace 02/28/2021 Last Documented On 3 2:32PM ; [facility] Family History Includes: Family History addressed during this encounter Description Last Updated Fraternal history of Arthritis 1 Last Documented On 3 2:32PM ; [facility] Maternal history of family history of is chemic heart disease 02/28/2021 Last Documented On 3 2:32PM ; [facility] Reported family history of seizures 11/2020 Last Documented On 3 2:32PM ; [facility] Review of Systems Includes: Review of Systems [...] Active Last Documented On 07/02/2022 3:31PM ; [facility] Note: Blurred vision BEES Allergy 05/01/2022 Active Last Documented On 3 3:31PM ; [facility] Bactrim Allergy Skin Rashes / Eruption of skin 3 Active Last Documented On 3 3:31PM ; [facility] Encounters Encounter Provider Location Date Check-In Time Check-Out Time Diagnosis CANCELLED NALDO BETH MD [facility] 08/13/2022 2:15PM 11:59PM Insurance Includes: Active Insurance Policies Plan Name Member ID Group # Subscriber Relationship Effect vini Dates 1 - [facility] [id number] AILEEN HURD Self 2 - [employer] [place] MED[employer]ARE SECOND [id number] AILEEN HURD Self Clinical Notes Includes: Clinical Notes from this encounter * Progress note Date Encounter Last Documented by 08/13/2022 CANCELLED Last documented on 11/07/2022; 2:40 PM, NALDO BETH MD; [facility] History of Present Illness Patient presented today [...] refilled several times through on orthopedist in [place], [place] as well as an oncologist in [place], [place]) and has refilled at multiple pharmacies [...] Past Medical/Surgical History Reported: Surgery, Injection/Nerve blocks, 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
--- OUTSIDE RECORDS SUMMARY | 2024-07-04 11:40 | XMS_ITS | Data Portability ---
Author Organization [facility] DONNElvia Address [address] [place] [address] Care Team Providers Care Manager School Name Role Phone ANNAMARIA MEYER Primary Care Provider Assessment No assessment recorded. Plan of Treatment Reminders Order Date Submit Date Provider Last Modified By Organization Details Last Modified Time Details Appointments None recorded. Lab influenza virus A + B + SARS-CoV-2 (COVID19) Ag panel, rapid IA, upper respiratory specimen 2024 025 [facility] In-Office Order, Internal Use Only DO Not Attach Compendium DO Not Attach Compendium, Do Not Delete/merge, [id number] 15:53:08 influenza virus A + B + SARS-CoV-2 (COVID19) Ag panel, rapid IA, upper respiratory specimen 2023 024 [facility] In-Office Order, Internal Use Only DO Not Attach Compendium DO Not Attach Compendium, Do Not Delete/merge, [id number] 13:15:00 influenza virus A + B + SARS-CoV-2 (COVID19) Ag panel, rapid IA, upper respiratory specimen 2023 024 [facility] In-Office Order, Internal Use Only DO Not Attach Compendium DO Not Attach Compendium, Do Not Delete/merge, [id number] 11:20:24 HbA1c (hemoglobin A1c), blood 2023 024 [facility] In-Office Order, Internal Use Only DO Not Attach Compendium DO Not Attach Compendium, Do Not Delete/merge, [id number] 12:30:08 Referral None recorded. Procedures None recorded. Surgeries None recorded. Imaging None recorded. Medication Orders Tamiflu 75 mg capsule 2024 025 [facility] Martines [facility], [address], [place], [address], 5 15:50:16 hydrocortis one 2.5 % topical cream 2024 025 adam Martines [facility], [address], [place], [address], 5 15:48:51 hydrochloro thiazide 25 mg tablet 2023 024 [facility] Martines [facility], [address], [place], [address], 4 11:17:07 amlodipine 10 mg tablet 2023 024 [facility] Samson Bobbi [facility], [address], [place], [address], 4 10:57:45 EpiPen 2-Lizandro 0.3 mg/0.3 mL injection, auto-inject or 2023 024 [facility] Williamlatonia Bobbi [facility], [address], [place], [address], 4 12:14:33 Patient TargetsNo targets recorded. Patient Instructions Encounter Date Encounter Id Patient Instructions Last Modified By Organization Details Last Modified Time 05/19/2023 [id number] A healthy lifestyle: care instructions jnanney Not available 05/19/2023 12:14:23 abnormal weight gain: care instructions jnanney Not available 05/19/2023 12:14:23 07/14/2023 [id number] cough: care instructions jnanney Not available 07/14/2023 10:47:43 12/23/2023 [id number] A healthy lifestyle: care instructions jnanney Not available 12/23/2023 11:13:35 leg and ankle edema: care instructions jnanney Not available 12/23/2023 11:13:35 learning about high blood pressure jnanney Not available 12/23/2023 11:16:11 05/02/2024 [id number] hemorrhoids: car e instructions jnanney Not available 05/02/2024 15:48:51 A healthy lifestyle: care instructions jnanney Not available 05/02/2024 15:48:51 upper respirator y infection (cold): care instructions jnanney Not available 05/02/2024 15:48:51 Reason for Referral None Reported. Results Created Date Observation Date Name Description Value Unit Range Abnormal Flag Note LastModifiedBy Organization Detail LastModifiedTime 05/19/19 24 05/19/2023 HbA1c (hemo globi n A1c), blood HbA1c 6.1 Not Available In-Office Order Internal Use Only DO Not Attach Compendium DO Not Attach Compendium, Do Not Delete/merge, [id number] 05/19/2023 12:14:03 07/14/19 24 07/14/2023 influ ester virus A + B + SARS- CoV-2 (COVI D19) Ag panel , rapid IA, upper respi rator y speci men Flu A negati ve Not Available In-Office Order Internal Use Only DO Not Attach Compendium DO Not Attach Compendium, Do Not Delete/merge, [id number] 07/14/2023 10:46:50 07/14/19 24 07/14/2023 influ ester virus A + B + SARS- CoV-2 (COVI D19) Ag panel , rapid IA, upper respi rator y speci men Flu B negati ve Not Available In-Office Order Internal Use Only DO Not Attach Compendium DO Not Attach Compendium, Do Not Delete/merge, [id number] 07/14/2023 10:46:50 07/14/19 24 07/14/2023 influ ester virus A + B + SARS- CoV-2 (COVI D19) Ag panel , rapid IA, upper respi rator y speci men Rapid SARS CoV 2 Ag, QL IA, respiratory specimen negati ve Not Available In-Office Order Internal Use Only DO Not Attach Compendium DO Not Attach Compendium, Do Not Delete/merge, [id number] 07/14/2023 10:46:50 07/27/19 24 07/27/2023 Proth rombi n time (PT) prothrombin time (PT) 10.2 text: 10.2 - 12.9 sec PROTI ME 10.2 10.2 - 12.9 SEC 07/26 10:03 AM CDT [facility] Not Available Not Available 05/02/2024 15:05:20 07/27/19 24 07/27/2023 Proth rombi n time (PT) INR in platelet poor plasma by coagulation assay 0.9 INR 0.9 07/26 10:03 AM CDT [facility] Not Available Not Available 05/02/2024 15:05:20 07/27/19 24 07/27/2023 aPTT in Plate let poor plasm a by Coagu latio n assay APTT in platelet poor plasma by coagulation assay 30.4 text: 25.1 - 36.5 sec PTT 30.4 25.1 - 36.5 SEC 07/26 10:03 AM CDT [facility] Not Available Not Available 05/02/2024 15:05:20 07/27/19 24 08/10/2023 Blood type and Indir ect antib remigio scree n panel - Blood ABO and Rh group panel - blood A POSITI VE ABO/R H A POSIT MAYELIN 07/26 10:31 AM CDT [facility] Not Available Not Available 05/02/2024 15:05:20 07/27/19 24 08/10/2023 Blood type and Indir ect antib remigio scree n panel - Blood blood group antibody screen [presence] in serum or plasma NEGATI VE ANTIB REMIGIO SCREE N NEGAT MAYELIN 07/26 10:31 AM CDT [facility] Not Available Not Available 05/02/2024 15:05:20 07/27/19 24 08/10/2023 Blood type and Indir ect antib remigio scree n panel - Blood specimen expiration date of blood 2023,2 359 SAMPL E EXPIR ATION 08/12 ,2359 08/09 7:26 AM CDT [facility] Not Available Not Available 05/02/2024 15:05:20 07/27/19 24 08/10/2023 Blood type and Indir ect antib remigio scree n panel - Blood blood bank comment NO HISTOR Y OF TRANSF USIONS ,PREGN LUIS OR ANTIBO DIES, NEW SPECIM EN NOT NEEDED BB COMME NT NO HISTO RY OF TRANS FUSIO NS,NJ EGNAN CY OR ANTIB ODIES , NEW SPECI MEN NOT NEEDE D 08/09 7:26 AM CDT [facility] Not Available Not Available 05/02/2024 15:05:20 07/27/19 24 07/27/2023 Basic metab olic 2000 panel - Serum or Plasm a glucose [mass/volume ] in serum or plasma 118 text: 70 - 99 mg/dL high GLUCO SE 118 (H) 70 - 99 MG/DL 07/26 10:19 AM CDT [facility] Not Available Not Available 05/02/2024 15:05:20 07/27/19 24 07/27/2023 Basic metab olic 2000 panel - Serum or Plasm a urea nitrogen [mass/volume ] in serum or plasma 11 text: 7 - 18 mg/dL BUN 11 7 - 18 MG/DL 07/26 10:19 AM CDT [facility] Not Available Not Available 05/02/2024 15:05:20 07/27/19 24 07/27/2023 Basic metab olic 2000 panel - Serum or Plasm a creatinine [mass/volume ] in serum or plasma 1.05 text: 0.7 - 1.3 mg/dL CREAT ININE S/P/B 1.05 0.7 - 1.3 MG/DL 07/26 10:19 AM CDT [facility] Not Available Not Available 05/02/2024 15:05:20 07/27/19 24 07/27/2023 Basic metab olic 2000 panel - Serum or Plasm a sodium [moles/volum e] in serum or plasma 136 text: 136 - 145 mmol/L SODIU M S/P/B 136 136 - 145 MMOL/ L 07/26 10:19 AM CDT [facility] Not Available Not Available 05/02/2024 15:05:20 07/27/19 24 07/27/2023 Basic metab olic 1999 panel - Serum or Plasm a potassium [moles/volum e] in serum or plasma 3 text: 3.5 - 5.1 mmol/L critical low POTAS SIUM S/P/B 3.0 (LL) 3.5 - 5.1 MMOL/ L 07/26 10:19 AM CDT [facility] Not Available Not Available 05/02/2024 15:05:20 07/27/19 24 07/27/2023 Basic metab olic 1999 panel - Serum or Plasm a chloride [moles/volum e] in serum or plasma 103 text: 100 - 108 mmol/L CHLOR MATTHEW S/P/B 103 100 - 108 MMOL/ L 07/26 10:19 AM T [facility] Not Available Not Available 05/02/2024 15:05:20 07/27/19 24 07/27/2023 Basic metab olic 1999 panel - Serum or Plasm a carbon dioxide, total [moles/volum e] in serum or plasma 26.2 text: 21 - 32 mmol/L CO2 26.2 21 - 32 MMOL/ L 07/26 10:19 AM T [facility] Not Available Not Available 05/02/2024 15:05:20 07/27/19 24 07/27/2023 Basic metab olic 1999 panel - Serum or Plasm a calcium [mass/volume ] in serum or plasma 9.2 text: 8.5 - 10.1 mg/dL CALCI UM S/P/B 9.2 8.5 - 10.1 MG/DL 07/26 10:19 AM CDT [facility] Not Available Not Available 05/02/2024 15:05:20 07/27/19 24 07/27/2023 Basic metab olic 2000 panel - Serum or Plasm a anion gap in serum or plasma 6.8 text: 5 - 15 mmol/L ANION GAP 6.8 5 - 15 MMOL/ L 07/26 10:19 AM CDT [facility] Not Available Not Available 05/02/2024 15:05:20 07/27/19 24 07/27/2023 Basic metab olic 2000 panel - Serum or Plasm a urea nitrogen/cre atinine [mass ratio] in serum or plasma 10.5 low: 6high: 26 BUN CREAT ININE RATIO 10.5 6 - 26 07/26 10:19 AM CDT [facility] Not Available Not Available 05/02/2024 15:05:20 07/27/19 24 07/27/2023 Basic metab olic 2000 panel - Serum or Plasm a glomerular filtration rate/1.73 sq M.predicted [volume rate/area] in serum, plasma or blood by creatinine-b ased formula (CKD-epi 2020) 83 text: >90 mL/min /1.73 M2 low GFR ESTIM ATE 83 (L) >90 ML/NC N/1.7 3 M2 07/26 10:19 AM CDT [facility] Not Available Not Available 05/02/2024 15:05:20 07/27/19 24 07/27/2023 Basic metab olic 2000 panel - Serum or Plasm a interpretati on and review of laboratory results Abnorm al Not Available Not Available 15:05:20 07/27/19 24 07/27/2023 CBC W Auto Diffe renti al panel - Blood leukocytes [#/volume] in blood by automated count 7.42 text: 4.5 - 11.0 x10'3/ uL WBC 7.42 4.5 - 11.0 x10'3 /uL 07/26 9:40 AM CDT [facility] Not Available Not Available 05/02/2024 15:05:20 07/27/19 24 07/27/2023 CBC W Auto Diffe renti al panel - Blood erythrocytes [#/volume] in blood by automated count 4.11 text: 4.70 - 6.10 x10'6/ uL low RBC 4.11 (L) 4.70 - 6.10 x10'6 /uL 07/26 9:40 AM CDT [facility] Not Available Not Available 05/02/2024 15:05:20 07/27/19 24 07/27/2023 CBC W Auto Diffe renti al panel - Blood hemoglobin [mass/volume ] in blood 13 text: 14.0 - 18.0 g/dL low HGB 13.0 (L) 14.0 - 18.0 G/DL 07/26 9:40 AM CDT [facility] Not Available Not Available 05/02/2024 15:05:20 07/27/19 24 07/27/2023 CBC W Auto Diffe renti al panel - Blood hematocrit [volume fraction] of blood 38.2 % low: 43%hig h: 54% low HCT 38.2 (L) 43.0 - 54.0 % 07/26 9:40 AM CDT [facility] Not Available Not Available 05/02/2024 15:05:20 07/27/19 24 07/27/2023 CBC W Auto Diffe renti al panel - Blood MCV [entitic volume] 92.9 text: 80.0 - 94.0 fL MCV 92.9 80.0 - 94.0 FL 07/26 9:40 AM CDT [facility] Not Available Not Available 05/02/2024 15:05:20 07/27/19 24 07/27/2023 CBC W Auto Diffe renti al panel - Blood MCH [entitic mass] 31.6 pg low: 27pghi gh: 31pg high MCH 31.6 (H) 27.0 - 31.0 PG 07/26 9:40 AM CDT [facility] Not Available Not Available 05/02/2024 15:05:20 07/27/19 24 07/27/2023 CBC W Auto Diffe renti al panel - Blood MCHC [mass/volume ] 34 text: 32.0 - 36.0 g/dL MCHC 34.0 32.0 - 36.0 G/DL 07/26 9:40 AM CDT [facility] Not Available Not Available 05/02/2024 15:05:20 07/27/19 24 07/27/2023 CBC W Auto Diffe renti al panel - Blood erythrocyte distribution width [entitic volume] by automated count 13.4 % low: 11.5%h igh: 14.5% RDW 13.4 11.5 - 14.5 % 07/26 9:40 AM CDT [facility] Not Available Not Available 05/02/2024 15:05:20 07/27/19 24 07/27/2023 CBC W Auto Diffe renti al panel - Blood platelets [#/volume] in blood 213 text: 130 - 400 x10'3/ uL PLT 213 130 - 400 x10'3 /uL 07/26 9:40 AM CDT [facility] Not Available Not Available 05/02/2024 15:05:20 07/27/19 24 07/27/2023 CBC W Auto Diffe renti al panel - Blood platelet mean volume [entitic volume] in blood 10.7 text: 9.3 - 12.2 fL MPV 10.7 9.3 - 12.2 FL 07/26 9:40 AM CDT [facility] Not Available Not Available 05/02/2024 15:05:20 07/27/19 24 07/27/2023 CBC W Auto Diffe renti al panel - Blood differential cell count method - blood AUTOMA TEETEE DIFFER ENTIAL DIFFE RENTI AL TYPE AUTOM ATED DIFFE RENTI AL 07/26 9:40 AM CDT [facility] Not Available Not Available 05/02/2024 15:05:20 07/27/19 24 07/27/2023 CBC W Auto Diffe renti al panel - Blood neutrophils/ 100 leukocytes in blood by automated count 67.6 % NEUTR OPHIL S % 67.6 % 07/26 9:40 AM CDT [facility] Not Available Not Available 05/02/2024 15:05:20 07/27/19 24 07/27/2023 CBC W Auto Diffe renti al panel - Blood lymphocytes/ 100 leukocytes in blood by automated count 16.6 % LYMPH OCYTE S % 16.6 % 07/26 9:40 AM CDT [facility] Not Available Not Available 05/02/2024 15:05:20 07/27/19 24 07/27/2023 CBC W Auto Diffe renti al panel - Blood monocytes/10 0 leukocytes in blood by automated count 11.9 % MONOC YTES % 11.9 % 07/26 9:40 AM CDT [facility] Not Available Not Available 05/02/2024 15:05:20 07/27/19 24 07/27/2023 CBC W Auto Diffe renti al panel - Blood eosinophils/ 100 leukocytes in blood by automated count 3 % EOSIN OPHIL S 3.0 % 07/26 9:40 AM CDT [facility] Not Available Not Available 05/02/2024 15:05:20 07/27/19 24 07/27/2023 CBC W Auto Diffe renti al panel - Blood basophils/10 0 leukocytes in blood by automated count 0.5 % BASOP HILS 0.5 % 07/26 9:40 AM CDT [facility] Not Available Not Available 05/02/2024 15:05:20 07/27/19 24 07/27/2023 CBC W Auto Diffe renti al panel - Blood immature granulocytes /100 leukocytes in blood by automated count 0.4 % IMMAT URE GRANS % 0.4 % 07/26 9:40 AM CDT [facility] Not Available Not Available 05/02/2024 15:05:20 07/27/19 24 07/27/2023 CBC W Auto Diffe renti al panel - Blood neutrophils [#/volume] in blood 5.02 text: 1.80 - 7.70 x10'3/ uL ABS. NEUTR OPHIL S 5.02 1.80 - 7.70 x10'3 /uL 07/26 9:40 AM CDT [facility] Not Available Not Available 05/02/2024 15:05:20 07/27/19 24 07/27/2023 CBC W Auto Diffe renti al panel - Blood lymphocytes [#/volume] in blood 1.23 text: 1.00 - 4.80 x10'3/ uL ABS. LYMPH OCYTE S 1.23 1.00 - 4.80 x10'3 /uL 07/26 9:40 AM CDT [facility] Not Available Not Available 05/02/2024 15:05:20 07/27/19 24 07/27/2023 CBC W Auto Diffe renti al panel - Blood monocytes [#/volume] in blood 0.88 text: 0.30 - 0.82 x10'3/ uL high ABS. MONOC YTES 0.88 (H) 0.30 - 0.82 x10'3 /uL 07/26 9:40 AM CDT [facility] Not Available Not Available 05/02/2024 15:05:20 07/27/19 24 07/27/2023 CBC W Auto Diffe renti al panel - Blood eosinophils [#/volume] in blood 0.22 text: 0.04 - 0.54 x10'3/ uL ABS. EOSIN OPHIL S 0.22 0.04 - 0.54 x10'3 /uL 07/26 9:40 AM CDT [facility] Not Available Not Available 05/02/2024 15:05:20 07/27/19 24 07/27/2023 CBC W Auto Diffe renti al panel - Blood basophils [#/volume] in blood 0.04 text: 0.01 - 0.08 x10'3/ uL ABS. BASOP HILS 0.04 0.01 - 0.08 x10'3 /uL 07/26 9:40 AM CDT [facility] Not Available Not Available 05/02/2024 15:05:20 07/27/19 24 07/27/2023 CBC W Auto Diffe renti al panel - Blood immature granulocytes [#/volume] in blood 0.03 text: 0.00 - 0.49 x10'3/ uL ABS. IMMAT URE GRANU LOCYT ES 0.03 0.00 - 0.49 x10'3 /uL 07/26 9:40 AM CDT [facility] Not Available Not Available 05/02/2024 15:05:20 07/27/19 24 07/27/2023 CBC W Auto Diffe renti al panel - Blood interpretati on and review of laboratory results Abnorm al Not Available Not Available 15:05:20 07/27/19 24 07/28/2023 Methi cilli n resis tant Staph yloco ccus aureu s [Pres ence] in Speci men by Organ is speci fic cultu re specimen source identified NASAL SPEC DESCR IPTIO N NASAL 07/26 8:46 AM CDT [facility] Not Available Not Available 05/02/2024 15:05:20 07/27/19 24 07/28/2023 Methi cilli n resis tant Staph yloco ccus aureu s [Pres ence] in Speci men by Organ is speci fic cultu re service comment NO SPECIA L REQUES T SPECI AL REQUE STS NO SPECI AL REQUE ST 07/26 8:46 AM CDT [facility] Not Available Not Available 05/02/2024 15:05:20 07/27/19 24 07/28/2023 Methi cilli n resis tant Staph yloco ccus aureu s [Pres ence] in Speci men by Organ is speci fic cultu re bacteria identified in specimen by culture NO METHIC ILLIN RESIST ANT STAPHY LOCOCC US AUREUS ISOLAT ED CULTU RE RESUL T NO METHI CILLI N RESIS TANT STAPH YLOCO CCUS AUREU S ISOLA TEETEE 07/27 6:49 AM T [facility] Not Available Not Available 05/02/2024 15:05:20 07/27/19 24 07/27/2023 Urina lysis compl ete W Refle x Cultu re panel - Urine collection method - specimen URINE CLEAN CATCH Speci men Type URINE CLEAN CATCH 07/26 8:50 AM CDT [facility] Not Available Not Available 05/02/2024 15:05:20 07/27/19 24 07/27/2023 Urina lysis compl ete W Refle x Cultu re panel - Urine color of urine COLORL ESS COLOR (U) COLOR LESS 07/26 9:17 AM T [facility] Not Available Not Available 05/02/2024 15:05:20 07/27/19 24 07/27/2023 Urina lysis compl ete W Refle x Cultu re panel - Urine clarity of urine CLEAR TRANS PAREN CY CLEAR 07/26 9:17 AM [facility] Not Available Not Available 05/02/2024 15:05:20 07/27/19 24 07/27/2023 Urina lysis compl ete W Refle x Cultu re panel - Urine specific gravity of urine 1.001 low: 1.001h igh: 1.03 SPECI FIC GRAVI TY (U) 1.001 1.001 - 1.030 07/26 9:17 AM T [facility] Not Available Not Available 05/02/2024 15:05:20 07/27/19 24 07/27/2023 Urina lysis compl ete W Refle x Cultu re panel - Urine pH of urine 6.5 low: 5high: 9 U PH 6.5 5.0 - 9.0 07/26 9:17 AM [facility] Not Available Not Available 05/02/2024 15:05:20 07/27/19 24 07/27/2023 Urina lysis compl ete W Refle x Cultu re panel - Urine leukocytes [#/volume] in urine by test strip NEGATI VE text: negati ve LEUKO CYTES (U) NEGAT MAYELIN NEGAT MAYELIN 07/26 9:17 AM [facility] Not Available Not Available 05/02/2024 15:05:20 07/27/19 24 07/27/2023 Urina lysis compl ete W Refle x Cultu re panel - Urine nitrite [presence] in urine NEGATI VE text: negati ve NITRI CECILIA NEGAT MAYELIN NEGAT MAYELIN 07/26 9:17 AM [facility] Not Available Not Available 05/02/2024 15:05:20 07/27/19 24 07/27/2023 Urina lysis compl ete W Refle x Cultu re panel - Urine protein [mass/volume ] in urine by test strip NEGATI VE text: <30 mg/dL PROTE IN RANDO M (U) NEGAT MAYELIN <30 MG/DL 07/26 9:17 AM [facility] Not Available Not Available 05/02/2024 15:05:20 07/27/19 24 07/27/2023 Urina lysis compl ete W Refle x Cultu re panel - Urine glucose [mass/volume ] in urine NORMAL text: normal mg/dL GLUCO SE (U) PRANAV L PRANAV L MG/DL 07/26 9:17 AM [facility] Not Available Not Available 05/02/2024 15:05:20 07/27/19 24 07/27/2023 Urina lysis compl ete W Refle x Cultu re panel - Urine ketones [mass/volume ] in urine by test strip NEGATI VE text: negati ve mg/dL KETON ES MG/DL (U) NEGAT MAYELIN NEGAT MAYELIN MG/DL 07/26 9:17 AM [facility] Not Available Not Available 05/02/2024 15:05:20 07/27/19 24 07/27/2023 Urina lysis compl ete W Refle x Cultu re panel - Urine urobilinogen [units/volum e] in urine by test strip NORMAL text: normal mg/dL UROBI LINOG EN PRANAV L PRANAV L MG/DL 07/26 9:17 AM T [facility] Not Available Not Available 05/02/2024 15:05:20 07/27/19 24 07/27/2023 Urina lysis compl ete W Refle x Cultu re panel - Urine bilirubin.to aaliyah [mass/volume ] in urine NEGATI VE text: negati ve mg/dL BILIR UBIN (U) NEGAT MAYELIN NEGAT MAYELIN MG/DL 07/26 9:17 AM [facility] Not Available Not Available 05/02/2024 15:05:20 07/27/19 24 07/27/2023 Urina lysis compl ete W Refle x Cultu re panel - Urine erythrocytes [#/volume] in urine by automated test strip NEGATI VE text: negati ve BLOOD (U) NEGAT MAYELIN NEGAT MAYELIN 07/26 9:17 AM [facility] Not Available Not Available 05/02/2024 15:05:20 07/27/19 24 07/27/2023 Urina lysis compl ete W Refle x Cultu re panel - Urine service comment CULTUR E IS NOT INDICA TEETEE CULTU RE & SENSI TIVIT Y INDIC ATED? CULTU RE IS NOT INDIC ATED 07/26 9:17 AM [facility] Not Available Not Available 05/02/2024 15:05:20 07/27/19 24 07/27/2023 Urina lysis compl ete W Refle x Cultu re panel - Urine leukocytes [#/area] in urine sediment by microscopy high power field <1 text: <6 /hpf WBC/H PF <1 <6 /HPF 07/26 9:17 AM CDT [facility] Not Available Not Available 05/02/2024 15:05:20 07/27/19 24 07/27/2023 Urina lysis compl ete W Refle x Cultu re panel - Urine erythrocytes [#/area] in urine sediment by microscopy high power field <1 text: <6 /hpf RBC/H PF <1 <6 /HPF 07/26 9:17 AM CDT [facility] Not Available Not Available 05/02/2024 15:05:20 08/05/19 24 08/05/2023 Basic metab olic 2000 panel - Serum or Plasm a fasting NO FASTI NG NO Not Available Not Available 06/28/2024 18:45:08 08/05/19 24 08/05/2023 Basic metab olic 2000 panel - Serum or Plasm a urea nitrogen [mass/volume ] in serum or plasma 11 mg/dL low: 7mg/dL high: 20mg/d L BUN 11 mg/dL L=7 H=20 3094- 0 LOINC Not Available Not Available 06/28/2024 18:45:08 08/05/19 24 08/05/2023 Basic metab olic 2000 panel - Serum or Plasm a creatinine [mass/volume ] in serum or plasma 1.2 mg/dL low: 0.66mg /dLhig h: 1.25mg /dL CREAT ININE 1.20 mg/dL L=0.6 6 H=1.2 5 2160- 0 LOINC Not Available Not Available 06/28/2024 18:45:08 08/05/19 24 08/05/2023 Basic metab olic 2000 panel - Serum or Plasm a glucose [mass/volume ] in serum or plasma 113 mg/dL low: 74mg/d Lhigh: 106mg/ dL high GLUCO SE 113 mg/dL L=74 H=106 2345- 7 LOINC H Not Available Not Available 06/28/2024 18:45:08 08/05/19 24 08/05/2023 Basic metab olic 2000 panel - Serum or Plasm a calcium [mass/volume ] in serum or plasma 9.3 mg/dL low: 8.3mg/ dLhigh : 10.5mg /dL CALCI UM 9.3 mg/dL L=8.3 H=10. 5 05119 -6 LOINC Not Available Not Available 06/28/2024 18:45:08 08/05/19 24 08/05/2023 Basic [facility] 1999 panel - Serum or Plasm a sodium [moles/volum e] in serum or plasma 132 mmol/ L low: 132mmo l/Lhig h: 144mmo l/L SODIU M 132 mmol/ L L=132 H=144 2951- 2 LOINC Not Available Not Available 06/28/2024 18:45:08 08/05/19 24 08/05/2023 [facility] 1999 panel - Serum or Plasm a potassium [moles/volum e] in serum or plasma 3.9 mmol/ L low: 3.5mmo l/Lhig h: 5.1mmo l/L POTAS SIUM 3.9 mmol/ L L=3.5 H=5.1 2823- 3 LOINC Not Available Not Available 06/28/2024 18:45:08 08/05/19 24 08/05/2023 [facility] 1999 panel - Serum or Plasm a chloride [moles/volum e] in serum or plasma 94 mmol/ L low: 98mmol /Lhigh : 107mmo l/L low CHLOR MATTHEW 94 mmol/ L L=98 H=107 2074- 0 LOINC L Not Available Not Available 06/28/2024 18:45:08 08/05/19 24 08/05/2023 [facility] 1999 panel - Serum or Plasm a carbon dioxide, total [moles/volum e] in serum or plasma 31 mmol/ L low: 22mmol /Lhigh : 30mmol /L high CO2 31.0 mmol/ L L=22. 0 H=30. 0 2027- 9 LOINC H Not Available Not Available 06/28/2024 18:45:08 08/05/19 24 08/05/2023 [facility] 1999 panel - Serum or Plasm a anion gap in serum or plasma by calculation 11 low: 10high : 20 ANION GAP 11 L=10 H=20 93547 -3 LOINC Not Available Not Available 06/28/2024 18:45:08 08/05/19 24 08/05/2023 [facility] 2000 panel - Serum or Plasm a urea nitrogen/cre atinine [mass ratio] in serum or plasma 9.2 BUN/C REAT 9.2 3097- 3 LOINC Not Available Not Available 06/28/2024 18:45:08 08/05/19 24 08/05/2023 Basic metab olic 2000 panel - Serum or Plasm a age - reported 58 AGE 58 45812 -7 LOINC Not Available Not Available 06/28/2024 18:45:08 08/05/19 24 08/05/2023 Basic metab olic 2000 panel - Serum or Plasm a eGFR non-afr 66 mL/mi n eGFR NON-A FR 66 ml/mi n Not Available Not Available 06/28/2024 18:45:08 08/05/19 24 08/05/2023 Basic metab olic 2000 panel - Serum or Plasm a eGFR afr amer 80 mL/mi n eGFR AFR AMER 80 ml/mi n Not Available Not Available 06/28/2024 18:45:08 08/05/19 24 08/05/2023 Serot onin [Mass /volu me] in Serum serotonin [mass/volume ] in serum 18 low Serot onin, Serum 18 31-20 7 15143 -9 LOINC L Not Available Not Available 06/28/2024 18:45:08 08/05/19 24 08/05/2023 Lipid panel with direc t LDL - Serum or Plasm a fasting NO FASTI NG NO Not Available Not Available 06/28/2024 18:45:08 08/05/19 24 08/05/2023 Lipid panel with direc t LDL - Serum or Plasm a cholesterol [mass/volume ] in serum or plasma 256 mg/dL low: 0mg/dL high: 200mg/ dL high JEY STERO L 256 mg/dL L=0 H=200 3- 3 LOINC H Not Available Not Available 06/28/2024 18:45:08 08/05/19 24 08/05/2023 Lipid panel with direc t LDL - Serum or Plasm a triglyceride [mass/volume ] in serum or plasma 175 mg/dL low: 0mg/dL high: 150mg/ dL high TRIGL YCERI DE 175 mg/dL L=0 H=150 2571- 8 LOINC H Not Available Not Available 06/28/2024 18:45:08 08/05/19 24 08/05/2023 Lipid panel with direc t LDL - Serum or Plasm a cholesterol in HDL [mass/volume ] in serum or plasma 52 mg/dL low: 40mg/d Lhigh: 60mg/d L HDL 52 mg/dL L=40 H=60 LOINC Not Available Not Available 06/28/2024 18:45:08 08/05/19 24 08/05/2023 Lipid panel with direc t LDL - Serum or Plasm a cholesterol in LDL [mass/volume ] in serum or plasma 156 mg/dL LDL 156 mg/dL LOINC Not Available Not Available 06/28/2024 18:45:08 08/05/19 24 08/05/2023 Hepat ic funct ion 2000 panel - Serum or Plasm a alanine aminotransfe rase [enzymatic activity/vol ume] in serum or plasma 84 U/L low: 9U/Lhi gh: 72U/L high ALT 84 U/L L=9 H=72 1742- 6 LOINC H Not Available Not Available 06/28/2024 18:45:08 08/05/19 24 08/05/2023 Hepat ic funct ion 1999 panel - Serum or Plasm a aspartate aminotransfe rase [enzymatic activity/vol ume] in serum or plasma 71 U/L low: 15U/Lh igh: 46U/L high AST 71 U/L L=15 H=46 1920- 8 LOINC H Not Available Not Available 06/28/2024 18:45:08 08/05/19 24 08/05/2023 Hepat ic funct ion 2000 panel - Serum or Plasm a alkaline phosphatase [enzymatic activity/vol ume] in serum or plasma 101 U/L low: 38U/Lh igh: 126U/L ALKAL INE PHOS 101 U/L L=38 H=126 6768- 6 LOINC Not Available Not Available 06/28/2024 18:45:08 08/05/19 24 08/05/2023 Hepat ic funct ion 1999 panel - Serum or Plasm a protein [mass/volume ] in serum or plasma 7.9 g/L low: 6.3g/L high: 8.2g/L TOTAL PROTE IN 7.9 g/L L=6.3 H=8.2 2885- 2 LOINC Not Available Not Available 06/28/2024 18:45:08 08/05/19 24 08/05/2023 Hepat ic funct ion 2000 panel - Serum or Plasm a bilirubin.to aaliyah [mass/volume ] in serum or plasma 0.5 mg/dL low: 0.2mg/ dLhigh : 1.3mg/ dL TOTAL BILI 0.5 mg/dL L=0.2 H=1.3 1975- 2 LOINC Not Available Not Available 06/28/2024 18:45:08 08/05/19 24 08/05/2023 Hepat ic funct ion 2000 panel - Serum or Plasm a bilirubin.di rect [mass/volume ] in serum or plasma 0 mg/dL low: 0mg/dL high: 0.3mg/ dL DIREC T BILI 0.0 mg/dL L=0.0 H=0.3 1967- 7 LOINC Not Available Not Available 06/28/2024 18:45:08 08/05/19 24 08/05/2023 Hepat ic funct ion 2000 panel - Serum or Plasm a bilirubin.in direct [mass/volume ] in serum or plasma 0.3 mg/dL low: 0mg/dL high: 1.1mg/ dL INDIR ECT BILI 0.30 mg/dL L=0.0 0 H=1.1 0 1970- LOINC Not Available Not Available 06/28/2024 18:45:08 08/05/19 24 08/05/2023 Hepat ic funct ion 2000 panel - Serum or Plasm a albumin [mass/volume ] in serum or plasma 4.4 g/dL low: 3.5g/d Lhigh: 5g/dL ALBUM IN 4.4 G/dL L=3.5 H=5.0 175- 7 LOINC Not Available Not Available 06/28/2024 18:45:08 08/05/19 24 08/05/2023 Hemog lobin A1c/H emogl obin. total in Blood hemoglobin A1C/hemoglob in.total in blood 5.9 % HGBA1 C 5.9 % 4548- 4 LOINC Not Available Not Available 06/28/2024 18:45:08 08/05/19 24 08/05/2023 CBC W Refle x Manua l Diffe renti al panel - Blood WBC 7.5 10^3u L low: 4.810^ 3uLhig h: 10.810 ^3uL WBC 7.5 10^3u L L=4.8 H=10. 8 Not Available Not Available 06/28/2024 18:45:08 08/05/19 24 08/05/2023 CBC W Refle x Manua l Diffe renti al panel - Blood RBC 4.53 10^6u L low: 4.610^ 6uLhig h: 6.210^ 6uL low RBC 4.53 10^6u L L=4.6 0 H=6.2 0 L Not Available Not Available 06/28/2024 18:45:08 08/05/19 24 08/05/2023 CBC W Refle x Manua l Diffe renti al panel - Blood hemoglobin [mass/volume ] in blood 14.1 g/dL low: 14g/dL high: 18g/dL HEMOG LOBIN 14.1 g/dL L=14. 0 H=18. 0 718-7 LOINC Not Available Not Available 06/28/2024 18:45:08 08/05/19 24 08/05/2023 CBC W Refle x Manua l Diffe renti al panel - Blood hematocrit [volume fraction] of blood by automated count 41.5 vol% low: 42vol% high: 52vol% low HEMAT OCRIT 41.5 VOL% L=42. 0 H=52. 0 4544- 3 LOINC L Not Available Not Available 06/28/2024 18:45:08 08/05/19 24 08/05/2023 CBC W Refle x Manua l Diffe renti al panel - Blood MCV 91.6 fL low: 80fLhi gh: 94fL MCV 91.6 fL L=80. 0 H=94. 0 Not Available Not Available 06/28/2024 18:45:08 08/05/19 24 08/05/2023 CBC W Refle x Manua l Diffe renti al panel - Blood MCH 31.1 pg low: 27pghi gh: 32pg MCH 31.1 pg L=27. 0 H=32. 0 Not Available Not Available 06/28/2024 18:45:08 08/05/19 24 08/05/2023 CBC W Refle x Manua l Diffe renti al panel - Blood MCHC 34 g/dL low: 32g/dL high: 36g/dL MCHC 34.0 g/dL L=32. 0 H=36. 0 Not Available Not Available 06/28/2024 18:45:08 08/05/19 24 08/05/2023 CBC W Refle x Manua l Diffe renti al panel - Blood transfuse leukocyte-po or platelets units [#] 242 10^3u L low: 70309^ 3uLhig h: 82779^ 3uL PLATE LETS 242 10^3u L L=100 H=400 49324 -5 LOINC Not Available Not Available 06/28/2024 18:45:08 08/05/19 24 08/05/2023 CBC W Refle x Manua l Diffe renti al panel - Blood RDW 13.1 % low: 11.7%h igh: 15.5% RDW 13.1 % L=11. 7 H=15. 5 Not Available Not Available 06/28/2024 18:45:08 08/05/19 24 08/05/2023 CBC W Refle x Manua l Diffe renti al panel - Blood granulocytes /leukocytes in blood by automated count 64.6 % low: 40%hig h: 70% %GRAN 64.6 % L=40. 0 H=70. 0 15051 -1 LOINC Not Available Not Available 06/28/2024 18:45:08 08/05/19 24 08/05/2023 CBC W Refle x Manua l Diffe renti al panel - Blood lymphocytes/ leukocytes in blood by automated count 18.1 % low: 20%hig h: 45% low %LYMP H 18.1 % L=20. 0 H=45. 0 736-9 LOINC L Not Available Not Available 06/28/2024 18:45:08 08/05/19 24 08/05/2023 CBC W Refle x Manua l Diffe renti al panel - Blood monocytes [#/volume] in blood 11.6 % low: 2%high : 10% high %MONO 11.6 % L=2.0 H=10. 0 44906 -6 LOINC H Not Available Not Available 06/28/2024 18:45:08 08/05/19 24 08/05/2023 CBC W Refle x Manua l Diffe renti al panel - Blood eosinophils/ leukocytes in blood by automated count 3.6 % low: 0%high : 6% %EOS 3.6 % L=0.0 H=6.0 713-8 LOINC Not Available Not Available 06/28/2024 18:45:08 08/05/19 24 08/05/2023 CBC W Refle x Manua l Diffe renti al panel - Blood basophils/le ukocytes in blood by automated count 0.8 % low: 0%high : 3% %BASO 0.8 % L=0.0 H=3.0 706-2 LOINC Not Available Not Available 06/28/2024 18:45:08 08/05/19 24 08/05/2023 CBC W Refle x Manua l Diffe renti al panel - Blood neutrophils [#/volume] in blood 4.9 10^3u L low: 1.910^ 3uLhig h: 7.610^ 3uL #NEUT 4.9 10^3u L L=1.9 H=7.6 78762 -4 LOINC Not Available Not Available 06/28/2024 18:45:08 08/05/19 24 08/05/2023 CBC W Refle x Manua l Diffe renti al panel - Blood lymphocytes [#/volume] in blood 1.4 10^3u L low: 0.910^ 3uLhig h: 4.910^ 3uL #LYMP H 1.4 10^3u L L=0.9 H=4.9 78265 -7 LOINC Not Available Not Available 06/28/2024 18:45:08 08/05/19 24 08/05/2023 CBC W Refle x Manua l Diffe renti al panel - Blood monocytes [#/volume] in blood 0.9 10^3u L low: 0.110^ 3uLhig h: 0.910^ 3uL #MONO 0.9 10^3u L L=0.1 H=0.9 00522 -6 LOINC Not Available Not Available 06/28/2024 18:45:08 08/05/19 24 08/05/2023 CBC W Refle x Manua l Diffe renti al panel - Blood eosinophils [#/volume] in blood by manual count 0.3 10^3u L low: 010^3u Lhigh: 0.610^ 3uL #EOS 0.3 10^3u L L=0.0 H=0.6 712-0 LOINC Not Available Not Available 06/28/2024 18:45:08 08/05/19 24 08/05/2023 CBC W Refle x Manua l Diffe renti al panel - Blood basophils [#/volume] in blood 0.06 10^3u L low: 010^3u Lhigh: 0.110^ 3uL #BASO 0.06 10^3u L L=0.0 0 H=0.1 0 49475 -0 LOINC Not Available Not Available 06/28/2024 18:45:08 08/05/19 24 08/05/2023 CBC W Refle x Manua l Diffe renti al panel - Blood immature granulocytes [#/volume] in blood 0.1 10^3u L low: 010^3u Lhigh: 710^3u L #IM GRANS 0.1 10^3u L L=0.0 H=7.0 28292 -1 LOINC Not Available Not Available 06/28/2024 18:45:08 08/05/19 24 08/05/2023 CBC W Refle x Manua l Diffe renti al panel - Blood immature granulocytes /leukocytes in blood 1.3 % low: 0%high : 5% %IM GRANS 1.3 % L=0.0 H=5.0 55501 -7 LOINC Not Available Not Available 06/28/2024 18:45:08 08/05/19 24 08/05/2023 CBC W Refle x Manua l Diffe renti al panel - Blood urate [mass/volume ] in 24 hour urine 0.0 low: 0high: 0.2 %NRB 0.0 L=0.0 H=0.2 89451 -1 LOINC Not Available Not Available 06/28/2024 18:45:08 08/05/19 24 08/05/2023 CBC W Refle x Manua l Diffe renti al panel - Blood urate [mass/volume ] in 24 hour urine 0.000 low: 0high: 0.012 #NRB 0.000 L=0.0 00 H=0.0 12 67219 -1 LOINC Not Available Not Available 06/28/2024 18:45:08 08/05/19 24 08/05/2023 CBC W Refle x Manua l Diffe renti al panel - Blood manual diff NOT INDICA TEETEE MANUA L DIFF NOT INDIC ATED Not Available Not Available 06/28/2024 18:45:08 08/05/19 24 08/05/2023 CBC W Refle x Manua l Diffe renti al panel - Blood RBC morph NOT INDICA TEETEE RBC MORPH NOT INDIC ATED Not Available Not Available 06/28/2024 18:45:08 08/10/19 24 08/10/2023 Basic metab olic 2000 panel - Serum or Plasm a glucose [mass/volume ] in serum or plasma 118 text: 70 - 99 mg/dL high GLUCO SE 118 (H) 70 - 99 MG/DL 08/09 6:57 AM CDT [facility] Not Available Not Available 05/02/2024 15:03:19 08/10/19 24 08/10/2023 Basic metab olic 2000 panel - Serum or Plasm a urea nitrogen [mass/volume ] in serum or plasma 17 text: 7 - 18 mg/dL BUN 17 7 - 18 MG/DL 08/09 6:57 AM CDT [facility] Not Available Not Available 05/02/2024 15:03:19 08/10/19 24 08/10/2023 Basic metab olic 2000 panel - Serum or Plasm a creatinine [mass/volume ] in serum or plasma 1.38 text: 0.7 - 1.3 mg/dL high CREAT ININE S/P/B 1.38 (H) 0.7 - 1.3 MG/DL 08/09 6:57 AM CDT [facility] Not Available Not Available 05/02/2024 15:03:19 08/10/19 24 08/10/2023 Basic metab olic 1999 panel - Serum or Plasm a sodium [moles/volum e] in serum or plasma 139 text: 136 - 145 mmol/L SODIU M S/P/B 139 136 - 145 MMOL/ L 08/09 6:57 AM CDT [facility] Not Available Not Available 05/02/2024 15:03:19 08/10/19 24 08/10/2023 Basic metab olic 1999 panel - Serum or Plasm a potassium [moles/volum e] in serum or plasma 3.2 text: 3.5 - 5.1 mmol/L low POTAS SIUM S/P/B 3.2 (L) 3.5 - 5.1 MMOL/ L 08/09 6:57 AM CDT [facility] Not Available Not Available 05/02/2024 15:03:19 08/10/19 24 08/10/2023 Basic metab olic 1999 panel - Serum or Plasm a chloride [moles/volum e] in serum or plasma 107 text: 100 - 108 mmol/L CHLOR MATTHEW S/P/B 107 100 - 108 MMOL/ L 08/09 6:57 AM CDT [facility] Not Available Not Available 05/02/2024 15:03:19 08/10/19 24 08/10/2023 Basic metab olic 1999 panel - Serum or Plasm a carbon dioxide, total [moles/volum e] in serum or plasma 27.5 text: 21 - 32 mmol/L CO2 27.5 21 - 32 MMOL/ L 08/09 6:57 AM CDT [facility] Not Available Not Available 05/02/2024 15:03:19 08/10/19 24 08/10/2023 Basic metab olic 2000 panel - Serum or Plasm a calcium [mass/volume ] in serum or plasma 9.4 text: 8.5 - 10.1 mg/dL CALCI UM S/P/B 9.4 8.5 - 10.1 MG/DL 08/09 6:57 AM CDT [facility] Not Available Not Available 05/02/2024 15:03:08/10/19 24 08/10/2023 Basic metab olic 2000 panel - Serum or Plasm a anion gap in serum or plasma 4.5 text: 5 - 15 mmol/L low ANION GAP 4.5 (L) 5 - 15 MMOL/ L 08/09 6:57 AM CDT [facility] Not Available Not Available 05/02/2024 15:03:08/10/19 24 08/10/2023 Basic metab olic 2000 panel - Serum or Plasm a urea nitrogen/cre atinine [mass ratio] in serum or plasma 12.3 low: 6high: 26 BUN CREAT ININE RATIO 12.3 6 - 26 08/09 6:57 AM CDT [facility] Not Available Not Available 05/02/2024 15:03:08/10/19 24 08/10/2023 Basic metab olic 2000 panel - Serum or Plasm a glomerular filtration rate/1.73 sq M.predicted [volume rate/area] in serum, plasma or blood by creatinine-b ased formula (CKD-epi 2020) 60 text: >90 mL/min /1.73 M2 low GFR ESTIM ATE 60 (L) >90 ML/NC N/1.7 3 M2 08/09 6:57 AM T [facility] Not Available Not Available 05/02/2024 15:03:08/10/19 24 08/10/2023 Basic metab olic 2000 panel - Serum or Plasm a interpretati on and review of laboratory results Abnorm al Not Available Not Available 15:03:08/11/19 24 08/11/2023 CBC W Auto Diffe amy al panel - Blood leukocytes [#/volume] in blood by automated count 18.57 text: 4.5 - 11.0 x10'3/ uL high WBC 18.57 (H) 4.5 - 11.0 x10'3 /uL 08/10 9:12 AM CDT [facility] Not Available Not Available 05/02/2024 15:03:19 08/11/19 24 08/11/2023 CBC W Auto Diffe renti al panel - Blood erythrocytes [#/volume] in blood by automated count 3.88 text: 4.70 - 6.10 x10'6/ uL low RBC 3.88 (L) 4.70 - 6.10 x10'6 /uL 08/10 9:12 AM CDT [facility] Not Available Not Available 05/02/2024 15:03:19 08/11/19 24 08/11/2023 CBC W Auto Diffe renti al panel - Blood hemoglobin [mass/volume ] in blood 12.1 text: 14.0 - 18.0 g/dL low HGB 12.1 (L) 14.0 - 18.0 G/DL 08/10 9:12 AM CDT [facility] Not Available Not Available 05/02/2024 15:03:19 08/11/19 24 08/11/2023 CBC W Auto Diffe renti al panel - Blood hematocrit [volume fraction] of blood 36.7 % low: 43%hig h: 54% low HCT 36.7 (L) 43.0 - 54.0 % 08/10 9:12 AM CDT [facility] Not Available Not Available 05/02/2024 15:03:19 08/11/19 24 08/11/2023 CBC W Auto Diffe renti al panel - Blood MCV [entitic volume] 94.6 text: 80.0 - 94.0 fL high MCV 94.6 (H) 80.0 - 94.0 FL 08/10 9:12 AM CDT [facility] Not Available Not Available 05/02/2024 15:03:19 08/11/19 24 08/11/2023 CBC W Auto Diffe renti al panel - Blood MCH [entitic mass] 31.2 pg low: 27pghi gh: 31pg high MCH 31.2 (H) 27.0 - 31.0 PG 08/10 9:12 AM CDT [facility] Not Available Not Available 05/02/2024 15:03:19 08/11/19 24 08/11/2023 CBC W Auto Diffe renti al panel - Blood MCHC [mass/volume ] 33 text: 32.0 - 36.0 g/dL MCHC 33.0 32.0 - 36.0 G/DL 08/10 9:12 AM CDT [facility] Not Available Not Available 05/02/2024 15:03:08/11/19 24 08/11/2023 CBC W Auto Diffe renti al panel - Blood erythrocyte distribution width [entitic volume] by automated count 13.7 % low: 11.5%h igh: 14.5% RDW 13.7 11.5 - 14.5 % 08/10 9:12 AM CDT [facility] Not Available Not Available 05/02/2024 15:03:19 08/11/19 24 08/11/2023 CBC W Auto Diffe renti al panel - Blood platelets [#/volume] in blood 225 text: 130 - 400 x10'3/ uL PLT 225 130 - 400 x10'3 /uL 08/10 9:12 AM CDT [facility] Not Available Not Available 05/02/2024 15:03:19 08/11/19 24 08/11/2023 CBC W Auto Diffe renti al panel - Blood platelet mean volume [entitic volume] in blood 10.7 text: 9.3 - 12.2 fL MPV 10.7 9.3 - 12.2 FL 08/10 9:12 AM T [facility] Not Available Not Available 05/02/2024 15:03:19 08/11/19 24 08/11/2023 CBC W Auto Diffe renti al panel - Blood differential cell count method - blood MANUAL DIFFER ENTIAL DIFFE RENTI AL TYPE MANUA L DIFFE RENTI AL 08/10 9:36 AM CDT [facility] Not Available Not Available 05/02/2024 15:03:19 08/11/19 24 08/11/2023 CBC W Auto Diffe renti al panel - Blood segmented neutrophils/ 100 leukocytes in blood by manual count 85 % SEG NEUTR OPHIL S 85 % 08/10 9:36 AM CDT [facility] Not Available Not Available 05/02/2024 15:03:19 08/11/19 24 08/11/2023 CBC W Auto Diffe renti al panel - Blood lymphocytes/ 100 leukocytes in blood by manual count 5 % LYMPH OCYTE S 5 % 08/10 9:36 AM CDT [facility] Not Available Not Available 05/02/2024 15:03:19 08/11/19 24 08/11/2023 CBC W Auto Diffe renti al panel - Blood monocytes/10 0 leukocytes in blood by manual count 10 % MONOC YTES 10 % 08/10 9:36 AM CDT [facility] Not Available Not Available 05/02/2024 15:03:19 08/11/19 24 08/11/2023 CBC W Auto Diffe renti al panel - Blood neutrophils [#/volume] in blood 15.78 text: 1.80 - 7.70 x10'3/ uL high ABS. NEUTR OPHIL S 15.78 (H) 1.80 - 7.70 x10'3 /uL 08/10 9:36 AM CDT [facility] Not Available Not Available 05/02/2024 15:03:19 08/11/19 24 08/11/2023 CBC W Auto Diffe renti al panel - Blood lymphocytes [#/volume] in blood 0.93 text: 1.00 - 4.80 x10'3/ uL low ABS. LYMPH OCYTE S 0.93 (L) 1.00 - 4.80 x10'3 /uL 08/10 9:36 AM CDT [facility] Not Available Not Available 05/02/2024 15:03:19 08/11/19 24 08/11/2023 CBC W Auto Diffe renti al panel - Blood monocytes [#/volume] in blood 1.86 text: 0.30 - 0.82 x10'3/ uL high ABS. MONOC YTES 1.86 (H) 0.30 - 0.82 x10'3 /uL 08/10 9:36 AM CDT [facility] Not Available Not Available 05/02/2024 15:03:19 08/11/19 24 08/11/2023 CBC W Auto Diffe renti al panel - Blood erythrocytes [morphology] in blood by automated count RBC MORPHO LOGY APPEAR S NORMAL . SLIDE REVIEW ED. RBC MORPH OLOGY RBC MORPH OLOGY APPEA LACEY ROCK L. SLIDE REVIE WED. 08/10 9:36 AM CDT [facility] Not Available Not Available 05/02/2024 15:03:19 08/11/19 24 08/11/2023 CBC W Auto Diffe renti al panel - Blood platelets [#/volume] in blood by automated count ADEQUA TE PLT EST. ADEQU ATE 08/10 9:36 AM CDT [facility] Not Available Not Available 05/02/2024 15:03:19 08/11/19 24 08/11/2023 CBC W Auto Diffe renti al panel - Blood interpretati on and review of laboratory results Abnorm al Not Available Not Available 15:03:19 08/11/19 24 08/11/2023 Basic metab olic 2000 panel - Serum or Plasm a glucose [mass/volume ] in serum or plasma 110 text: 70 - 99 mg/dL high GLUCO SE 110 (H) 70 - 99 MG/DL 08/10 9:45 AM CDT [facility] Not Available Not Available 05/02/2024 15:03:19 08/11/19 24 08/11/2023 Basic metab olic 2000 panel - Serum or Plasm a urea nitrogen [mass/volume ] in serum or plasma 17 text: 7 - 18 mg/dL BUN 17 7 - 18 MG/DL 08/10 9:45 AM CDT [facility] Not Available Not Available 05/02/2024 15:03:19 08/11/19 24 08/11/2023 Basic metab olic 1999 panel - Serum or Plasm a creatinine [mass/volume ] in serum or plasma 1.43 text: 0.7 - 1.3 mg/dL high CREAT ININE S/P/B 1.43 (H) 0.7 - 1.3 MG/DL 08/10 9:45 AM CDT [facility] Not Available Not Available 05/02/2024 15:03:19 08/11/19 24 08/11/2023 Basic metab olic 1999 panel - Serum or Plasm a sodium [moles/volum e] in serum or plasma 131 text: 136 - 145 mmol/L low SODIU M S/P/B 131 (L) 136 - 145 MMOL/ L 08/10 9:45 AM CDT [facility] Not Available Not Available 05/02/2024 15:03:19 08/11/19 24 08/11/2023 Basic metab olic 2000 panel - Serum or Plasm a potassium [moles/volum e] in serum or plasma 4 text: 3.5 - 5.1 mmol/L POTAS SIUM S/P/B 4.0 3.5 - 5.1 MMOL/ L 08/10 9:45 AM CDT [facility] Not Available Not Available 05/02/2024 15:03:19 08/11/19 24 08/11/2023 Basic metab olic 1999 panel - Serum or Plasm a chloride [moles/volum e] in serum or plasma 100 text: 100 - 108 mmol/L CHLOR MATTHEW S/P/B 100 100 - 108 MMOL/ L 08/10 9:45 AM CDT [facility] Not Available Not Available 05/02/2024 15:03:19 08/11/19 24 08/11/2023 Basic metab olic 1999 panel - Serum or Plasm a carbon dioxide, total [moles/volum e] in serum or plasma 27.6 text: 21 - 32 mmol/L CO2 27.6 21 - 32 MMOL/ L 08/10 9:45 AM CDT [facility] Not Available Not Available 05/02/2024 15:03:19 08/11/19 24 08/11/2023 Basic metab olic 1999 panel - Serum or Plasm a calcium [mass/volume ] in serum or plasma 8.5 text: 8.5 - 10.1 mg/dL CALCI UM S/P/B 8.5 8.5 - 10.1 MG/DL 08/10 9:45 AM CDT [facility] Not Available Not Available 05/02/2024 15:03:19 08/11/19 24 08/11/2023 Basic metab olic 1999 panel - Serum or Plasm a anion gap in serum or plasma 3.4 text: 5 - 15 mmol/L low ANION GAP 3.4 (L) 5 - 15 MMOL/ L 08/10 9:45 AM T [facility] Not Available Not Available 05/02/2024 15:03:19 08/11/19 24 08/11/2023 Basic metab olic 1999 panel - Serum or Plasm a urea nitrogen/cre atinine [mass ratio] in serum or plasma 11.9 low: 6high: 26 BUN CREAT ININE RATIO 11.9 6 - 26 08/10 9:45 AM CDT [facility] Not Available Not Available 05/02/2024 15:03:19 08/11/19 24 08/11/2023 Basic metab olic 1999 panel - Serum or Plasm a glomerular filtration rate/1.73 sq M.predicted [volume rate/area] in serum, plasma or blood by creatinine-b ased formula (CKD-epi 2020) 57 text: >90 mL/min /1.73 M2 low GFR ESTIM ATE 57 (L) >90 ML/NC N/1.7 3 M2 08/10 9:45 AM CDT [facility] Not Available Not Available 05/02/2024 15:03:19 08/11/19 24 08/11/2023 Basic metab olic 2000 panel - Serum or Plasm a interpretati on and review of laboratory results Abnorm al Not Available Not Available 15:03:19 08/12/19 24 08/15/2023 Bacte patrizia ident ified in Speci men by Respi rator y cultu re specimen source identified SPUTUM , EXPECT ORATED SPEC DESCR IPTIO N SPUTU M, EXPEC TORAT ED 08/11 3:29 PM CDT [facility] Not Available Not Available 05/02/2024 15:03:19 08/12/19 24 08/15/2023 Bacte patrizia ident ified in Speci men by Respi rator y cultu re service comment NO SPECIA L REQUES T SPECI AL REQUE STS NO SPECI AL REQUE ST 08/11 3:29 PM CDT [facility] Not Available Not Available 05/02/2024 15:03:19 08/12/19 24 08/15/2023 Bacte patrizia ident ified in Speci men by Respi rator y cultu re microscopic observation [identifier] in specimen by gram stain MANY WHITE BLOOD CELLS SEEN GRAM STAIN RESUL T MANY WHITE BLOOD CELLS SEEN 08/11 6:19 PM CDT [facility] Not Available Not Available 05/02/2024 15:03:19 08/12/19 24 08/15/2023 Bacte patrizia ident ified in Speci men by Respi rator y cultu re microscopic observation [identifier] in specimen by gram stain MANY EPITHE LIAL CELLS SEEN GRAM STAIN RESUL T MANY EPITH ELIAL CELLS SEEN 08/11 6:19 PM CDT [facility] Not Available Not Available 05/02/2024 15:03:19 08/12/19 24 08/15/2023 Bacte patrizia ident ified in Speci men by Respi rator y cultu re microscopic observation [identifier] in specimen by gram stain MODERA TE YEAST GRAM STAIN RESUL T MODER ATE YEAST 08/11 6:19 PM CDT [facility] Not Available Not Available 05/02/2024 15:03:19 08/12/19 24 08/15/2023 Bacte patrizia ident ified in Speci men by Respi rator y cultu re microscopic observation [identifier] in specimen by gram stain MANY MIXED BACTER IAL TIKA GRAM STAIN RESUL T MANY MIXED BACTE RIAL TIKA 08/11 6:19 PM CDT [facility] Not Available Not Available 05/02/2024 15:03:19 08/12/19 24 08/15/2023 Bacte patrizia ident ified in Speci men by Respi rator y cultu re bacteria identified in specimen by culture LIGHT GROWTH OF NORMAL TIKA PRESEN T CULTU RE RESUL T LIGHT GROWT H OF PRANAV L TIKA PRESE NT 08/14 2:11 PM CDT [facility] Not Available Not Available 05/02/2024 15:03:19 08/12/19 24 08/15/2023 Bacte patrizia ident ified in Speci men by Respi rator y cultu re bacteria identified in specimen by culture LIGHT GROWTH OF CANDID A TROPIC BRITTNEY SUSCEP TIBILT Y NOT ROUTIN YAQUELIN PERFOR MED. SAVING ISOLAT E FOR 5 DAYS. CONTAC T MICROB IOLOGY DEPART MENT IF FURTHE R WORKUP IS INDICA TEETEE. abnormal CULTU RE RESUL T LIGHT GROWT H OF LOVE DA TROPI CALIS SUSCE PTIBI LTY NOT ROUTI ROCHELLE PERFO RMED. SAVIN G ISOLA TE FOR [address] MICRO BIOLO GY DEPAR TMENT IF FURTH ER ABIMAEL P IS INDIC ATED. (A) 08/14 2:11 PM CDT [facility] Not Available Not Available 05/02/2024 15:03:19 08/12/19 24 08/15/2023 Bacte patrizia ident ified in Speci men by Respi rator y cultu re interpretati on and review of laboratory results Abnorm al Not Available Not Available 15:03:19 08/12/19 24 08/13/2023 Methi cilli n resis tant Staph yloco ccus aureu s [Pres ence] in Speci men by Organ ism speci fic cultu re specimen source identified NASAL SPEC DESCR IPTIO N NASAL 08/11 1:47 PM CDT [facility] Not Available Not Available 05/02/2024 15:03:19 08/12/19 24 08/13/2023 Methi cilli n resis tant Staph yloco ccus aureu s [Pres ence] in Speci men by Organ is speci fic cultu re service comment NO SPECIA L REQUES T SPECI AL REQUE STS NO SPECI AL REQUE ST 08/11 1:47 PM CDT [facility] Not Available Not Available 05/02/2024 15:03:19 08/12/19 24 08/13/2023 Methi cilli n resis tant Staph yloco ccus aureu s [Pres ence] in Speci men by Organ ism speci fic cultu re bacteria identified in specimen by culture NO METHIC ILLIN RESIST ANT STAPHY LOCOCC US AUREUS ISOLAT ED CULTU RE RESUL T NO METHI CILLI N RESIS TANT STAPH YLOCO CCUS AUREU S ISOLA TEETEE 08/12 1:13 PM CDT [facility] Not Available Not Available 05/02/2024 15:03:19 08/12/19 24 08/12/2023 Proca lcito denise [Mass /volu me] in Serum or Plasm a procalcitoni n [mass/volume ] in serum or plasma 0.09 text: <0.5 NG/mL Proca lcito denise 0.09 <0.5 NG/ML 08/11 12:53 PM CDT [facility] Not Available Not Available 05/02/2024 15:03:19 08/12/19 24 08/12/2023 Basic metab olic 2000 panel - Serum or Plasm a glucose [mass/volume ] in serum or plasma 158 text: 70 - 99 mg/dL high GLUCO SE 158 (H) 70 - 99 MG/DL 08/11 10:04 AM [facility] Not Available Not Available 05/02/2024 15:03:19 08/12/19 24 08/12/2023 Basic metab olic 1999 panel - Serum or Plasm a urea nitrogen [mass/volume ] in serum or plasma 14 text: 7 - 18 mg/dL BUN 14 7 - 18 MG/DL 08/11 10:04 AM [facility] Not Available Not Available 05/02/2024 15:03:19 08/12/19 24 08/12/2023 Basic metab olic 1999 panel - Serum or Plasm a creatinine [mass/volume ] in serum or plasma 1.19 text: 0.7 - 1.3 mg/dL CREAT ININE S/P/B 1.19 0.7 - 1.3 MG/DL 08/11 10:04 AM [facility] Not Available Not Available 05/02/2024 15:03:19 08/12/19 24 08/12/2023 Basic metab olic 1999 panel - Serum or Plasm a sodium [moles/volum e] in serum or plasma 133 text: 136 - 145 mmol/L low SODIU M S/P/B 133 (L) 136 - 145 MMOL/ L 08/11 10:04 AM [facility] Not Available Not Available 05/02/2024 15:03:19 08/12/19 24 08/12/2023 Basic metab olic 1999 panel - Serum or Plasm a potassium [moles/volum e] in serum or plasma 3.8 text: 3.5 - 5.1 mmol/L POTAS SIUM S/P/B 3.8 3.5 - 5.1 MMOL/ L 08/11 10:04 AM [facility] Not Available Not Available 05/02/2024 15:03:19 08/12/19 24 08/12/2023 Basic metab olic 1999 panel - Serum or Plasm a chloride [moles/volum e] in serum or plasma 100 text: 100 - 108 mmol/L CHLOR MATTHEW S/P/B 100 100 - 108 MMOL/ L 08/11 10:04 AM T [facility] Not Available Not Available 05/02/2024 15:03:19 08/12/19 24 08/12/2023 Basic metab olic 1999 panel - Serum or Plasm a carbon dioxide, total [moles/volum e] in serum or plasma 29.6 text: 21 - 32 mmol/L CO2 29.6 21 - 32 MMOL/ L 08/11 10:04 AM T [facility] Not Available Not Available 05/02/2024 15:03:08/12/19 24 08/12/2023 Basic metab olic 1999 panel - Serum or Plasm a calcium [mass/volume ] in serum or plasma 8.6 text: 8.5 - 10.1 mg/dL CALCI UM S/P/B 8.6 8.5 - 10.1 MG/DL 08/11 10:04 AM [facility] Not Available Not Available 05/02/2024 15:03:19 08/12/19 24 08/12/2023 Basic metab olic 2000 panel - Serum or Plasm a anion gap in serum or plasma 3.4 text: 5 - 15 mmol/L low ANION GAP 3.4 (L) 5 - 15 MMOL/ L 08/11 10:04 AM [facility] Not Available Not Available 05/02/2024 15:03:08/12/19 24 08/12/2023 Basic metab olic 2000 panel - Serum or Plasm a urea nitrogen/cre atinine [mass ratio] in serum or plasma 11.8 low: 6high: 26 BUN CREAT ININE RATIO 11.8 6 - 26 08/11 10:04 AM [facility] Not Available Not Available 05/02/2024 15:03:19 08/12/19 24 08/12/2023 Basic metab olic 2000 panel - Serum or Plasm a glomerular filtration rate/1.73 sq M.predicted [volume rate/area] in serum, plasma or blood by creatinine-b ased formula (CKD-epi 2020) 71 text: >90 mL/min /1.73 M2 low GFR ESTIM ATE 71 (L) >90 ML/NC N/1.7 3 M2 08/11 10:04 AM CDT [facility] Not Available Not Available 05/02/2024 15:03:08/12/19 24 08/12/2023 Basic metab olic 2000 panel - Serum or Plasm a interpretati on and review of laboratory results Abnorm al Not Available Not Available 15:03:08/12/19 24 08/12/2023 CBC W Auto Diffe renti al panel - Blood leukocytes [#/volume] in blood by automated count 13.68 text: 4.5 - 11.0 x10'3/ uL high WBC 13.68 (H) 4.5 - 11.0 x10'3 /uL 08/11 9:47 AM CDT [facility] Not Available Not Available 05/02/2024 15:03:08/12/19 24 08/12/2023 CBC W Auto Diffe renti al panel - Blood erythrocytes [#/volume] in blood by automated count 3.6 text: 4.70 - 6.10 x10'6/ uL low RBC 3.60 (L) 4.70 - 6.10 x10'6 /uL 08/11 9:47 AM CDT [facility] Not Available Not Available 05/02/2024 15:03:08/12/19 24 08/12/2023 CBC W Auto Diffe renti al panel - Blood hemoglobin [mass/volume ] in blood 11.4 text: 14.0 - 18.0 g/dL low HGB 11.4 (L) 14.0 - 18.0 G/DL 08/11 9:47 AM CDT [facility] Not Available Not Available 05/02/2024 15:03:19 08/12/19 24 08/12/2023 CBC W Auto Diffe renti al panel - Blood hematocrit [volume fraction] of blood 34.5 % low: 43%hig h: 54% low HCT 34.5 (L) 43.0 - 54.0 % 08/11 9:47 AM CDT [facility] Not Available Not Available 05/02/2024 15:03:19 08/12/19 24 08/12/2023 CBC W Auto Diffe renti al panel - Blood MCV [entitic volume] 95.8 text: 80.0 - 94.0 fL high MCV 95.8 (H) 80.0 - 94.0 FL 08/11 9:47 AM CDT [facility] Not Available Not Available 05/02/2024 15:03:08/12/19 24 08/12/2023 CBC W Auto Diffe renti al panel - Blood MCH [entitic mass] 31.7 pg low: 27pghi gh: 31pg high MCH 31.7 (H) 27.0 - 31.0 PG 08/11 9:47 AM CDT [facility] Not Available Not Available 05/02/2024 15:03:08/12/19 24 08/12/2023 CBC W Auto Diffe renti al panel - Blood MCHC [mass/volume ] 33 text: 32.0 - 36.0 g/dL MCHC 33.0 32.0 - 36.0 G/DL 08/11 9:47 AM CDT [facility] Not Available Not Available 05/02/2024 15:03:19 08/12/19 24 08/12/2023 CBC W Auto Diffe renti al panel - Blood erythrocyte distribution width [entitic volume] by automated count 13.7 % low: 11.5%h igh: 14.5% RDW 13.7 11.5 - 14.5 % 08/11 9:47 AM CDT [facility] Not Available Not Available 05/02/2024 15:03:19 08/12/19 24 08/12/2023 CBC W Auto Diffe renti al panel - Blood platelets [#/volume] in blood 190 text: 130 - 400 x10'3/ uL PLT 190 130 - 400 x10'3 /uL 08/11 9:47 AM CDT [facility] Not Available Not Available 05/02/2024 15:03:19 08/12/19 24 08/12/2023 CBC W Auto Diffe renti al panel - Blood platelet mean volume [entitic volume] in blood 10.8 text: 9.3 - 12.2 fL MPV 10.8 9.3 - 12.2 FL 08/11 9:47 AM CDT [facility] Not Available Not Available 05/02/2024 15:03:19 08/12/19 24 08/12/2023 CBC W Auto Diffe renti al panel - Blood differential cell count method - blood AUTOMA TEETEE DIFFER ENTIAL DIFFE RENTI AL TYPE AUTOM ATED DIFFE RENTI AL 08/11 9:47 AM CDT [facility] Not Available Not Available 05/02/2024 15:03:19 08/12/19 24 08/12/2023 CBC W Auto Diffe renti al panel - Blood neutrophils/ 100 leukocytes in blood by automated count 78.6 % NEUTR OPHIL S % 78.6 % 08/11 9:47 AM CDT [facility] Not Available Not Available 05/02/2024 15:03:19 08/12/19 24 08/12/2023 CBC W Auto Diffe renti al panel - Blood lymphocytes/ 100 leukocytes in blood by automated count 9.9 % LYMPH OCYTE S % 9.9 % 08/11 9:47 AM CDT [facility] Not Available Not Available 05/02/2024 15:03:19 08/12/19 24 08/12/2023 CBC W Auto Diffe renti al panel - Blood monocytes/10 0 leukocytes in blood by automated count 9.7 % MONOC YTES % 9.7 % 08/11 9:47 AM CDT [facility] Not Available Not Available 05/02/2024 15:03:19 08/12/19 24 08/12/2023 CBC W Auto Diffe renti al panel - Blood eosinophils/ 100 leukocytes in blood by automated count 0.8 % EOSIN OPHIL S 0.8 % 08/11 9:47 AM CDT [facility] Not Available Not Available 05/02/2024 15:03:19 08/12/19 24 08/12/2023 CBC W Auto Diffe renti al panel - Blood basophils/10 0 leukocytes in blood by automated count 0.4 % BASOP HILS 0.4 % 08/11 9:47 AM CDT [facility] Not Available Not Available 05/02/2024 15:03:19 08/12/19 24 08/12/2023 CBC W Auto Diffe renti al panel - Blood immature granulocytes /100 leukocytes in blood by automated count 0.6 % IMMAT URE GRANS % 0.6 % 08/11 9:47 AM CDT [facility] Not Available Not Available 05/02/2024 15:03:19 08/12/19 24 08/12/2023 CBC W Auto Diffe renti al panel - Blood neutrophils [#/volume] in blood 10.75 text: 1.80 - 7.70 x10'3/ uL high ABS. NEUTR OPHIL S 10.75 (H) 1.80 - 7.70 x10'3 /uL 08/11 9:47 AM CDT [facility] Not Available Not Available 05/02/2024 15:03:19 08/12/19 24 08/12/2023 CBC W Auto Diffe renti al panel - Blood lymphocytes [#/volume] in blood 1.35 text: 1.00 - 4.80 x10'3/ uL ABS. LYMPH OCYTE S 1.35 1.00 - 4.80 x10'3 /uL 08/11 9:47 AM CDT [facility] Not Available Not Available 05/02/2024 15:03:19 08/12/19 24 08/12/2023 CBC W Auto Diffe renti al panel - Blood monocytes [#/volume] in blood 1.33 text: 0.30 - 0.82 x10'3/ uL high ABS. MONOC YTES 1.33 (H) 0.30 - 0.82 x10'3 /uL 08/11 9:47 AM CDT [facility] Not Available Not Available 05/02/2024 15:03:19 08/12/19 24 08/12/2023 CBC W Auto Diffe renti al panel - Blood eosinophils [#/volume] in blood 0.11 text: 0.04 - 0.54 x10'3/ uL ABS. EOSIN OPHIL S 0.11 0.04 - 0.54 x10'3 /uL 08/11 9:47 AM CDT [facility] Not Available Not Available 05/02/2024 15:03:19 08/12/1908/12/2023 CBC W Auto Diffe renti al panel - Blood basophils [#/volume] in blood 0.06 text: 0.01 - 0.08 x10'3/ uL ABS. BASOP HILS 0.06 0.01 - 0.08 x10'3 /uL 08/11 9:47 AM CDT [facility] Not Available Not Available 05/02/2024 15:03:19 08/12/19 24 08/12/2023 CBC W Auto Diffe renti al panel - Blood immature granulocytes [#/volume] in blood 0.08 text: 0.00 - 0.49 x10'3/ uL ABS. IMMAT URE GRANU LOCYT ES 0.08 0.00 - 0.49 x10'3 /uL 08/11 9:47 AM CDT [facility] Not Available Not Available 05/02/2024 15:03:08/12/19 24 08/12/2023 CBC W Auto Diffe renti al panel - Blood interpretati on and review of laboratory results Abnorm al Not Available Not Available 15:03:19 08/13/19 24 08/13/2023 CBC W Auto Diffe renti al panel - Blood leukocytes [#/volume] in blood by automated count 9.44 text: 4.5 - 11.0 x10'3/ uL WBC 9.44 4.5 - 11.0 x10'3 /uL 08/12 7:29 AM CDT [facility] Not Available Not Available 05/02/2024 15:03:08/13/19 24 08/13/2023 CBC W Auto Diffe renti al panel - Blood erythrocytes [#/volume] in blood by automated count 3.39 text: 4.70 - 6.10 x10'6/ uL low RBC 3.39 (L) 4.70 - 6.10 x10'6 /uL 08/12 7:29 AM CDT [facility] Not Available Not Available 05/02/2024 15:03:08/13/19 24 08/13/2023 CBC W Auto Diffe renti al panel - Blood hemoglobin [mass/volume ] in blood 10.7 text: 14.0 - 18.0 g/dL low HGB 10.7 (L) 14.0 - 18.0 G/DL 08/12 7:29 AM CDT [facility] Not Available Not Available 05/02/2024 15:03:08/13/19 24 08/13/2023 CBC W Auto Diffe renti al panel - Blood hematocrit [volume fraction] of blood 32.5 % low: 43%hig h: 54% low HCT 32.5 (L) 43.0 - 54.0 % 08/12 7:29 AM CDT [facility] Not Available Not Available 05/02/2024 15:03:19 08/13/19 24 08/13/2023 CBC W Auto Diffe renti al panel - Blood MCV [entitic volume] 95.9 text: 80.0 - 94.0 fL high MCV 95.9 (H) 80.0 - 94.0 FL 08/12 7:29 AM CDT [facility] Not Available Not Available 05/02/2024 15:03:19 08/13/19 24 08/13/2023 CBC W Auto Diffe renti al panel - Blood MCH [entitic mass] 31.6 pg low: 27pghi gh: 31pg high MCH 31.6 (H) 27.0 - 31.0 PG 08/12 7:29 AM CDT [facility] Not Available Not Available 05/02/2024 15:03:19 08/13/19 24 08/13/2023 CBC W Auto Diffe renti al panel - Blood MCHC [mass/volume ] 32.9 text: 32.0 - 36.0 g/dL MCHC 32.9 32.0 - 36.0 G/DL 08/12 7:29 AM CDT [facility] Not Available Not Available 05/02/2024 15:03:19 08/13/19 24 08/13/2023 CBC W Auto Diffe renti al panel - Blood erythrocyte distribution width [entitic volume] by automated count 13.6 % low: 11.5%h igh: 14.5% RDW 13.6 11.5 - 14.5 % 08/12 7:29 AM CDT [facility] Not Available Not Available 05/02/2024 15:03:19 08/13/19 24 08/13/2023 CBC W Auto Diffe renti al panel - Blood platelets [#/volume] in blood 169 text: 130 - 400 x10'3/ uL PLT 169 130 - 400 x10'3 /uL 08/12 7:29 AM CDT [facility] Not Available Not Available 05/02/2024 15:03:19 08/13/19 24 08/13/2023 CBC W Auto Diffe renti al panel - Blood platelet mean volume [entitic volume] in blood 11.1 text: 9.3 - 12.2 fL MPV 11.1 9.3 - 12.2 FL 08/12 7:29 AM CDT [facility] Not Available Not Available 05/02/2024 15:03:19 08/13/19 24 08/13/2023 CBC W Auto Diffe renti al panel - Blood differential cell count method - blood AUTOMA TEETEE DIFFER ENTIAL DIFFE RENTI AL TYPE AUTOM ATED DIFFE RENTI AL 08/12 7:29 AM CDT [facility] Not Available Not Available 05/02/2024 15:03:19 08/13/19 24 08/13/2023 CBC W Auto Diffe renti al panel - Blood neutrophils/ 100 leukocytes in blood by automated count 71.9 % NEUTR OPHIL S % 71.9 % 08/12 7:29 AM CDT [facility] Not Available Not Available 05/02/2024 15:03:19 08/13/19 24 08/13/2023 CBC W Auto Diffe renti al panel - Blood lymphocytes/ 100 leukocytes in blood by automated count 10.9 % LYMPH OCYTE S % 10.9 % 08/12 7:29 AM CDT [facility] Not Available Not Available 05/02/2024 15:03:19 08/13/19 24 08/13/2023 CBC W Auto Diffe renti al panel - Blood monocytes/10 0 leukocytes in blood by automated count 13.1 % MONOC YTES % 13.1 % 08/12 7:29 AM T [facility] Not Available Not Available 05/02/2024 15:03:19 08/13/19 24 08/13/2023 CBC W Auto Diffe renti al panel - Blood eosinophils/ 100 leukocytes in blood by automated count 2.8 % EOSIN OPHIL S 2.8 % 08/12 7:29 AM CDT [facility] Not Available Not Available 05/02/2024 15:03:19 08/13/19 24 08/13/2023 CBC W Auto Diffe renti al panel - Blood basophils/10 0 leukocytes in blood by automated count 0.5 % BASOP HILS 0.5 % 08/12 7:29 AM CDT [facility] Not Available Not Available 05/02/2024 15:03:19 08/13/19 24 08/13/2023 CBC W Auto Diffe renti al panel - Blood immature granulocytes /100 leukocytes in blood by automated count 0.8 % IMMAT URE GRANS % 0.8 % 08/12 7:29 AM CDT [facility] Not Available Not Available 05/02/2024 15:03:19 08/13/19 24 08/13/2023 CBC W Auto Diffe renti al panel - Blood neutrophils [#/volume] in blood 6.78 text: 1.80 - 7.70 x10'3/ uL ABS. NEUTR OPHIL S 6.78 1.80 - 7.70 x10'3 /uL 08/12 7:29 AM CDT [facility] Not Available Not Available 05/02/2024 15:03:19 08/13/19 24 08/13/2023 CBC W Auto Diffe renti al panel - Blood lymphocytes [#/volume] in blood 1.03 text: 1.00 - 4.80 x10'3/ uL ABS. LYMPH OCYTE S 1.03 1.00 - 4.80 x10'3 /uL 08/12 7:29 AM CDT [facility] Not Available Not Available 05/02/2024 15:03:19 08/13/19 24 08/13/2023 CBC W Auto Diffe renti al panel - Blood monocytes [#/volume] in blood 1.24 text: 0.30 - 0.82 x10'3/ uL high ABS. MONOC YTES 1.24 (H) 0.30 - 0.82 x10'3 /uL 08/12 7:29 AM CDT [facility] Not Available Not Available 05/02/2024 15:03:19 08/13/19 24 08/13/2023 CBC W Auto Diffe renti al panel - Blood eosinophils [#/volume] in blood 0.26 text: 0.04 - 0.54 x10'3/ uL ABS. EOSIN OPHIL S 0.26 0.04 - 0.54 x10'3 /uL 08/12 7:29 AM CDT [facility] Not Available Not Available 05/02/2024 15:03:19 08/13/19 24 08/13/2023 CBC W Auto Diffe renti al panel - Blood basophils [#/volume] in blood 0.05 text: 0.01 - 0.08 x10'3/ uL ABS. BASOP HILS 0.05 0.01 - 0.08 x10'3 /uL 08/12 7:29 AM CDT [facility] Not Available Not Available 05/02/2024 15:03:19 08/13/19 24 08/13/2023 CBC W Auto Diffe renti al panel - Blood immature granulocytes [#/volume] in blood 0.08 text: 0.00 - 0.49 x10'3/ uL ABS. IMMAT URE GRANU LOCYT ES 0.08 0.00 - 0.49 x10'3 /uL 08/12 7:29 AM CDT [facility] Not Available Not Available 05/02/2024 15:03:19 08/13/19 24 08/13/2023 CBC W Auto Diffe renti al panel - Blood interpretati on and review of laboratory results Abnorm al Not Available Not Available 15:03:19 08/13/19 24 08/13/2023 Basic metab olic 2000 panel - Serum or Plasm a glucose [mass/volume ] in serum or plasma 103 text: 70 - 99 mg/dL high GLUCO SE 103 (H) 70 - 99 MG/DL 08/12 8:01 AM CDT [facility] Not Available Not Available 05/02/2024 15:03:19 08/13/19 24 08/13/2023 Basic metab olic 1999 panel - Serum or Plasm a urea nitrogen [mass/volume ] in serum or plasma 9 text: 7 - 18 mg/dL BUN 9 7 - 18 MG/DL 08/12 8:01 AM T [facility] Not Available Not Available 05/02/2024 15:03:19 08/13/19 24 08/13/2023 Basic metab olic 1999 panel - Serum or Plasm a creatinine [mass/volume ] in serum or plasma 0.87 text: 0.7 - 1.3 mg/dL CREAT ININE S/P/B 0.87 0.7 - 1.3 MG/DL 08/12 8:01 AM [facility] Not Available Not Available 05/02/2024 15:03:19 08/13/19 24 08/13/2023 Basic metab olic 1999 panel - Serum or Plasm a sodium [moles/volum e] in serum or plasma 139 text: 136 - 145 mmol/L SODIU M S/P/B 139 136 - 145 MMOL/ L 08/12 8:01 AM [facility] Not Available Not Available 05/02/2024 15:03:19 08/13/19 24 08/13/2023 Basic metab olic 1999 panel - Serum or Plasm a potassium [moles/volum e] in serum or plasma 3.6 text: 3.5 - 5.1 mmol/L POTAS SIUM S/P/B 3.6 3.5 - 5.1 MMOL/ L 08/12 8:01 AM [facility] Not Available Not Available 05/02/2024 15:03:19 08/13/19 24 08/13/2023 Basic metab olic 2000 panel - Serum or Plasm a chloride [moles/volum e] in serum or plasma 106 text: 100 - 108 mmol/L CHLOR MATTHEW S/P/B 106 100 - 108 MMOL/ L 08/12 8:01 AM T [facility] Not Available Not Available 05/02/2024 15:03:19 08/13/19 24 08/13/2023 Basic metab olic 2000 panel - Serum or Plasm a carbon dioxide, total [moles/volum e] in serum or plasma 28.5 text: 21 - 32 mmol/L CO2 28.5 21 - 32 MMOL/ L 08/12 8:01 AM [facility] Not Available Not Available 05/02/2024 15:03:19 08/13/19 24 08/13/2023 Basic metab olic 1999 panel - Serum or Plasm a calcium [mass/volume ] in serum or plasma 8.5 text: 8.5 - 10.1 mg/dL CALCI UM S/P/B 8.5 8.5 - 10.1 MG/DL 08/12 8:01 AM [facility] Not Available Not Available 05/02/2024 15:03:19 08/13/19 24 08/13/2023 Basic metab olic 2000 panel - Serum or Plasm a anion gap in serum or plasma 4.5 text: 5 - 15 mmol/L low ANION GAP 4.5 (L) 5 - 15 MMOL/ L 08/12 8:01 AM [facility] Not Available Not Available 05/02/2024 15:03:19 08/13/19 24 08/13/2023 Basic metab olic 1999 panel - Serum or Plasm a urea nitrogen/cre atinine [mass ratio] in serum or plasma 10.4 low: 6high: 26 BUN CREAT ININE RATIO 10.4 6 - 26 08/12 8:01 AM [facility] Not Available Not Available 05/02/2024 15:03:19 08/13/19 24 08/13/2023 Basic metab olic 2000 panel - Serum or Plasm a glomerular filtration rate/1.73 sq M.predicted [volume rate/area] in serum, plasma or blood by creatinine-b ased formula (CKD-epi 2020) text: >90 mL/min /1.73 M2 GFR ESTIM ATE >90 >90 ML/NC N/1.7 3 M2 08/12 8:01 AM CDT [facility] Not Available Not Available 05/02/2024 15:03:19 08/13/19 24 08/13/2023 Basic metab olic 2000 panel - Serum or Plasm a interpretati on and review of laboratory results Abnorm al Not Available Not Available 15:03:19 08/14/1908/14/2023 CBC W Auto Diffe renti al panel - Blood leukocytes [#/volume] in blood by automated count 8.56 text: 4.5 - 11.0 x10'3/ uL WBC 8.56 4.5 - 11.0 x10'3 /uL 08/13 5:55 AM CDT [facility] Not Available Not Available 05/02/2024 15:03:20 08/14/1908/14/2023 CBC W Auto Diffe renti al panel - Blood erythrocytes [#/volume] in blood by automated count 3.35 text: 4.70 - 6.10 x10'6/ uL low RBC 3.35 (L) 4.70 - 6.10 x10'6 /uL 08/13 5:55 AM CDT [facility] Not Available Not Available 05/02/2024 15:03:20 08/14/1908/14/2023 CBC W Auto Diffe renti al panel - Blood hemoglobin [mass/volume ] in blood 10.3 text: 14.0 - 18.0 g/dL low HGB 10.3 (L) 14.0 - 18.0 G/DL 08/13 5:55 AM CDT [facility] Not Available Not Available 05/02/2024 15:03:20 08/14/19 24 08/14/2023 CBC W Auto Diffe renti al panel - Blood hematocrit [volume fraction] of blood 32 % low: 43%hig h: 54% low HCT 32.0 (L) 43.0 - 54.0 % 08/13 5:55 AM CDT [facility] Not Available Not Available 05/02/2024 15:03:20 08/14/19 24 08/14/2023 CBC W Auto Diffe renti al panel - Blood MCV [entitic volume] 95.5 text: 80.0 - 94.0 fL high MCV 95.5 (H) 80.0 - 94.0 FL 08/13 5:55 AM CDT [facility] Not Available Not Available 05/02/2024 15:03:20 08/14/19 24 08/14/2023 CBC W Auto Diffe renti al panel - Blood MCH [entitic mass] 30.7 pg low: 27pghi gh: 31pg MCH 30.7 27.0 - 31.0 PG 08/13 5:55 AM CDT [facility] Not Available Not Available 05/02/2024 15:03:20 08/14/19 24 08/14/2023 CBC W Auto Diffe renti al panel - Blood MCHC [mass/volume ] 32.2 text: 32.0 - 36.0 g/dL MCHC 32.2 32.0 - 36.0 G/DL 08/13 5:55 AM CDT [facility] Not Available Not Available 05/02/2024 15:03:20 08/14/19 24 08/14/2023 CBC W Auto Diffe renti al panel - Blood erythrocyte distribution width [entitic volume] by automated count 13.4 % low: 11.5%h igh: 14.5% RDW 13.4 11.5 - 14.5 % 08/13 5:55 AM CDT [facility] Not Available Not Available 05/02/2024 15:03:20 08/14/19 24 08/14/2023 CBC W Auto Diffe renti al panel - Blood platelets [#/volume] in blood 205 text: 130 - 400 x10'3/ uL PLT 205 130 - 400 x10'3 /uL 08/13 5:55 AM CDT [facility] Not Available Not Available 05/02/2024 15:03:20 08/14/19 24 08/14/2023 CBC W Auto Diffe renti al panel - Blood platelet mean volume [entitic volume] in blood 11.1 text: 9.3 - 12.2 fL MPV 11.1 9.3 - 12.2 FL 08/13 5:55 AM CDT [facility] Not Available Not Available 05/02/2024 15:03:20 08/14/19 24 08/14/2023 CBC W Auto Diffe renti al panel - Blood differential cell count method - blood AUTOMA TEETEE DIFFER ENTIAL DIFFE RENTI AL TYPE AUTOM ATED DIFFE RENTI AL 08/13 5:55 AM CDT [facility] Not Available Not Available 05/02/2024 15:03:20 08/14/19 24 08/14/2023 CBC W Auto Diffe renti al panel - Blood neutrophils/ 100 leukocytes in blood by automated count 68.1 % NEUTR OPHIL S % 68.1 % 08/13 5:55 AM CDT [facility] Not Available Not Available 05/02/2024 15:03:20 08/14/19 24 08/14/2023 CBC W Auto Diffe renti al panel - Blood lymphocytes/ 100 leukocytes in blood by automated count 13.1 % LYMPH OCYTE S % 13.1 % 08/13 5:55 AM CDT [facility] Not Available Not Available 05/02/2024 15:03:20 08/14/19 24 08/14/2023 CBC W Auto Diffe renti al panel - Blood monocytes/10 0 leukocytes in blood by automated count 12.9 % MONOC YTES % 12.9 % 08/13 5:55 AM CDT [facility] Not Available Not Available 05/02/2024 15:03:20 08/14/19 24 08/14/2023 CBC W Auto Diffe renti al panel - Blood eosinophils/ 100 leukocytes in blood by automated count 3.9 % EOSIN OPHIL S 3.9 % 08/13 5:55 AM CDT [facility] Not Available Not Available 05/02/2024 15:03:20 08/14/19 24 08/14/2023 CBC W Auto Diffe renti al panel - Blood basophils/10 0 leukocytes in blood by automated count 0.6 % BASOP HILS 0.6 % 08/13 5:55 AM CDT [facility] Not Available Not Available 05/02/2024 15:03:20 08/14/19 24 08/14/2023 CBC W Auto Diffe renti al panel - Blood immature granulocytes /100 leukocytes in blood by automated count 1.4 % IMMAT URE GRANS % 1.4 % 08/13 5:55 AM CDT [facility] Not Available Not Available 05/02/2024 15:03:20 08/14/19 24 08/14/2023 CBC W Auto Diffe renti al panel - Blood neutrophils [#/volume] in blood 5.84 text: 1.80 - 7.70 x10'3/ uL ABS. NEUTR OPHIL S 5.84 1.80 - 7.70 x10'3 /uL 08/13 5:55 AM CDT [facility] Not Available Not Available 05/02/2024 15:03:20 08/14/19 24 08/14/2023 CBC W Auto Diffe renti al panel - Blood lymphocytes [#/volume] in blood 1.12 text: 1.00 - 4.80 x10'3/ uL ABS. LYMPH OCYTE S 1.12 1.00 - 4.80 x10'3 /uL 08/13 5:55 AM CDT [facility] Not Available Not Available 05/02/2024 15:03:20 08/14/19 24 08/14/2023 CBC W Auto Diffe renti al panel - Blood monocytes [#/volume] in blood 1.1 text: 0.30 - 0.82 x10'3/ uL high ABS. MONOC YTES 1.10 (H) 0.30 - 0.82 x10'3 /uL 08/13 5:55 AM CDT [facility] Not Available Not Available 05/02/2024 15:03:20 08/14/19 24 08/14/2023 CBC W Auto Diffe renti al panel - Blood eosinophils [#/volume] in blood 0.33 text: 0.04 - 0.54 x10'3/ uL ABS. EOSIN OPHIL S 0.33 0.04 - 0.54 x10'3 /uL 08/13 5:55 AM CDT [facility] Not Available Not Available 05/02/2024 15:03:20 08/14/19 24 08/14/2023 CBC W Auto Diffe renti al panel - Blood basophils [#/volume] in blood 0.05 text: 0.01 - 0.08 x10'3/ uL ABS. BASOP HILS 0.05 0.01 - 0.08 x10'3 /uL 08/13 5:55 AM CDT [facility] Not Available Not Available 05/02/2024 15:03:20 08/14/19 24 08/14/2023 CBC W Auto Diffe renti al panel - Blood immature granulocytes [#/volume] in blood 0.12 text: 0.00 - 0.49 x10'3/ uL ABS. IMMAT URE GRANU LOCYT ES 0.12 0.00 - 0.49 x10'3 /uL 08/13 5:55 AM CDT [facility] Not Available Not Available 05/02/2024 15:03:20 08/14/19 24 08/14/2023 CBC W Auto Diffe renti al panel - Blood interpretati on and review of laboratory results Abnorm al Not Available Not Available 15:03:20 08/14/19 24 08/14/2023 Basic metab olic 2000 panel - Serum or Plasm a glucose [mass/volume ] in serum or plasma 122 text: 70 - 99 mg/dL high GLUCO SE 122 (H) 70 - 99 MG/DL 08/13 6:07 AM [facility] Not Available Not Available 05/02/2024 15:03:20 08/14/19 24 08/14/2023 Basic metab olic 1999 panel - Serum or Plasm a urea nitrogen [mass/volume ] in serum or plasma 6 text: 7 - 18 mg/dL low BUN 6 (L) 7 - 18 MG/DL 08/13 6:07 AM [facility] Not Available Not Available 05/02/2024 15:03:20 08/14/19 24 08/14/2023 Basic metab olic 1999 panel - Serum or Plasm a creatinine [mass/volume ] in serum or plasma 0.84 text: 0.7 - 1.3 mg/dL CREAT ININE S/P/B 0.84 0.7 - 1.3 MG/DL 08/13 6:07 AM [facility] Not Available Not Available 05/02/2024 15:03:20 08/14/19 24 08/14/2023 Basic metab olic 1999 panel - Serum or Plasm a sodium [moles/volum e] in serum or plasma 138 text: 136 - 145 mmol/L SODIU M S/P/B 138 136 - 145 MMOL/ L 08/13 6:07 AM [facility] Not Available Not Available 05/02/2024 15:03:20 08/14/19 24 08/14/2023 Basic metab olic 1999 panel - Serum or Plasm a potassium [moles/volum e] in serum or plasma 3.2 text: 3.5 - 5.1 mmol/L low POTAS SIUM S/P/B 3.2 (L) 3.5 - 5.1 MMOL/ L 08/13 6:07 AM [facility] Not Available Not Available 05/02/2024 15:03:20 08/14/19 24 08/14/2023 Basic metab olic 1999 panel - Serum or Plasm a chloride [moles/volum e] in serum or plasma 106 text: 100 - 108 mmol/L CHLOR MATTHEW S/P/B 106 100 - 108 MMOL/ L 08/13 6:07 AM T [facility] Not Available Not Available 05/02/2024 15:03:20 08/14/19 24 08/14/2023 Basic metab olic 1999 panel - Serum or Plasm a carbon dioxide, total [moles/volum e] in serum or plasma 29 text: 21 - 32 mmol/L CO2 29.0 21 - 32 MMOL/ L 08/13 6:07 AM T [facility] Not Available Not Available 05/02/2024 15:03:20 08/14/19 24 08/14/2023 Basic metab olic 1999 panel - Serum or Plasm a calcium [mass/volume ] in serum or plasma 8.3 text: 8.5 - 10.1 mg/dL low CALCI UM S/P/B 8.3 (L) 8.5 - 10.1 MG/DL 08/13 6:07 AM T [facility] Not Available Not Available 05/02/2024 15:03:20 08/14/19 24 08/14/2023 Basic metab olic 2000 panel - Serum or Plasm a anion gap in serum or plasma 3 text: 5 - 15 mmol/L low ANION GAP 3.0 (L) 5 - 15 MMOL/ L 08/13 6:07 AM T [facility] Not Available Not Available 05/02/2024 15:03:20 08/14/19 24 08/14/2023 Basic metab olic 2000 panel - Serum or Plasm a urea nitrogen/cre atinine [mass ratio] in serum or plasma 7.2 low: 6high: 26 BUN CREAT ININE RATIO 7.2 6 - 26 08/13 6:07 AM T [facility] Not Available Not Available 05/02/2024 15:03:20 08/14/19 24 08/14/2023 Basic metab olic 2000 panel - Serum or Plasm a glomerular filtration rate/1.73 sq M.predicted [volume rate/area] in serum, plasma or blood by creatinine-b ased formula (CKD-epi 2020) text: >90 mL/min /1.73 M2 GFR ESTIM ATE >90 >90 ML/NC N/1.7 3 M2 08/13 6:07 AM CDT [facility] Not Available Not Available 05/02/2024 15:03:20 08/14/19 24 08/14/2023 Basic metab olic 1999 panel - Serum or Plasm a interpretati on and review of laboratory results Abnorm al Not Available Not Available 15:03:20 12/23/19 24 12/23/2023 influ ester virus A + B + SARS- CoV-2 (COVI D19) Ag panel , rapid IA, upper respi rator y speci men Flu A negati ve Not Available In-Office Order Internal Use Only DO Not Attach Compendium DO Not Attach Compendium, Do Not Delete/merge, [id number] 12/23/2023 10:55:08 12/23/19 24 12/23/2023 influ ester virus A + B + SARS- CoV-2 (COVI D19) Ag panel , rapid IA, upper respi rator y speci men Flu B negati ve Not Available In-Office Order Internal Use Only DO Not Attach Compendium DO Not Attach Compendium, Do Not Delete/merge, [id number] 12/23/2023 10:55:08 12/23/19 24 12/23/2023 influ ester virus A + B + SARS- CoV-2 (COVI D19) Ag panel , rapid IA, upper respi rator y speci men Rapid SARS CoV 2 Ag, QL IA, respiratory specimen negati ve Not Available In-Office Order Internal Use Only DO Not Attach Compendium DO Not Attach Compendium, Do Not Delete/merge, [id number] 12/23/2023 10:55:08 05/02/19 25 05/02/2024 influ ester virus A + B + SARS- CoV-2 (COVI D19) Ag panel , rapid IA, upper respi rator y speci men Flu A positi ve Not Available In-Office Order Internal Use Only DO Not Attach Compendium DO Not Attach Compendium, Do Not Delete/merge, [id number] 05/02/2024 15:31:49 05/02/19 25 05/02/2024 influ ester virus A + B + SARS- CoV-2 (COVI D19) Ag panel , rapid IA, upper respi rator y speci men Flu B negati ve Not Available In-Office Order Internal Use Only DO Not Attach Compendium DO Not Attach Compendium, Do Not Delete/merge, [id number] 05/02/2024 15:31:49 05/02/19 25 05/02/2024 influ ester virus A + B + SARS- CoV-2 (COVI D19) Ag panel , rapid IA, upper respi rator y speci men Rapid SARS CoV 2 Ag, QL IA, respiratory specimen negati ve Not Available In-Office Order Internal Use Only DO Not Attach Compendium DO Not Attach Compendium, Do Not Delete/merge, [id number] 05/02/2024 15:31:49 06/24/19 25 06/25/2024 Bacte patrizia ident ified in Urine by Cultu re bacteria identified in urine by culture Mixed Growth of One or More Distal Urethr al Contam inants CULTU RE RESUL TS Mixed Growt h of One or More Dista l Ureth ral Conta minan ts 06/24 11:25 PM CDT [facility] Not Available Not Available 06/28/2024 18:44:41 05/04/19 24 05/04/2023 CT, abdom en + pelvi s, w/ contr ast No observ ation record ed. [place] [id number], [place], [address], 05/04/2023 11:53:04 06/07/19 24 06/06/2023 XR, chest , 2 view No observ [facility]ion [facility] [address] [facility], [place], [address], 06/08/2023 09:37:54 09/19/19 24 09/18/2023 XR, lumba r spine No observ ation record ed. [facility] [address] [place], [address], 09/21/2023 08:39:20 10/08/19 24 10/08/2023 XR, knee No observ ation record ed. [facility] [address] [place] [address], [id number], 10/08/2023 13:34:05 10/08/19 24 10/08/2023 XR, knee No observ ation record ed. [facility] [address] [place] [address], [id number], 10/08/2023 13:34:14 10/23/19 24 10/23/2023 MRI, knee, w/o contr ast No observ ation record ed. [facility] (Radiology) [facility], [place], [address], 10/23/2023 16:59:19 10/23/19 24 10/23/2023 MRI, knee, w/o contr ast No observ ation record ed. [facility] [address], [place], [address], 10/23/2023 16:59:04 11/18/19 24 11/18/2023 XR, lumba r spine [place], [address], 11/19/2023 08:50:15 12/04/19 24 11/30/2023 XR, lumba r spine No observ ation record ed. [facility] [address] [place], [address], 12/04/2023 17:31:11 12/10/19 24 12/10/2023 CT, abdom en + pelvi s, w/ contr ast No observ ation record ed. [facility] [address], [place], [address], 12/11/2023 13:59:56 05/19/19 25 05/19/2024 XR, lumba r spine [place], [address], 05/19/2024 15:20:09 07/01/19 25 06/30/2024 XR, lumba r spine No observ ation record ed. [facility] [address] [facility], [place], [address], 06/30/2024 14:46:06 Result Notes None recorded. Problems Name Problem SNOMED Code Status Onset Date Resolution Date Notes Provider Name and Address Organization Details Recorded Time Hyperlipid emia 82259206 Active Not Available [facility] 2 19:37:17 Mass of colon 364492816 Active 2013 Not Available [facility] 2 19:37:17 Fracture of navicular 111842890 Active 2015 Not Available [facility] 2 19:37:17 History of surgery 759632546 Active 2015 Not Available [facility] 2 19:37:17 Cervical radiculopa thy 78193978 Active 2020 Not Available [facility] 2 19:37:17 Essential hypertensi on 70811018 Active 2020 Not Available [facility] 2 19:37:17 Gastritis 9310038 Active Not Available [facility] 2 19:37:17 Knee pain Active Not Available [facility] 2 19:37:17 Strain of knee 581479577812 Active Not Available [facility] 2 19:37:17 Kidney stone 60240804 Active Not Available [facility] 2 19:37:17 Swollen abdomen 95697972 Active Not Available [facility] 2 19:37:17 Hypoalbumi nemia 421111236 Active Not Available [facility] 19:37:17 Vitamin D deficiency 23961372 Active Not Available [facility] 19:37:17 Hypothyroi dism 02992902 Active Not Available [facility] 19:37:17 Laboratory test result abnormal 808542675 Active Not Available [facility] 19:37:17 Hypersomni a 74538036 Active Not Available [facility] 19:37:17 Fracture of calcaneus 841807380 Active 2015 Not Available [facility] 19:37:17 Obstructiv e sleep apnea syndrome 09920306 Active Not Available [facility] 19:37:17 Malignant tumor of colon 163520884 Active Not Available [facility] 19:37:17 Anemia 153676800 Active Not Available [facility] 19:37:17 Notes:Some problems listed i n Documents: #[id number], #[id number] could not be added to this patient's chart. Please review these documents and add these problems to the patient's chart manually as needed. Problem Notes None recorded. Procedures Surgical History Date Name Laterality Status Provider Name and Address Organization Details Recorded Time 023 procedure on elbow completed Lola Bernard MA [place] - [facility] 01/12/2023 11:32:30 020 Suture/Staple removal completed Annamaria Meyer PA-C Attn: Accounting,[address] [place], [address], [facility] - [facility] 01/23/2020 16:02:27 Other completed Pat Tolliver RN [place] - [facility] 10/24/2015 15:42:10 procedure on liver completed Sunita Wing [place] - [facility] 02/03/2022 11:12:11 Appendectomy completed Gita Quiles [place] - [facility] 04/18/2014 16:06:29 Gastrointestinal Surgery completed Gita Quiles [place] - [facility] 04/18/2014 16:06:29 Other completed Gita Quiles MA [place] - [facility] 04/18/2014 16:06:29 Knee Surgery completed Gita Quiles MA [facility] 04/18/2014 16:06:29 Tonsillectomy completed Gita Quiles MA [place] - [facility] 04/18/2014 16:06:29 Imaging Results Imaging Date Name Status LastModified by Organiz ation Details LastModified Time 05/04/2023 CT, abdomen + pelvis, w/ contrast completed [facility] [address], [place], [address], 05/04/2023 11:53:04 06/06/2023 XR, chest, 2 view completed [facility] [address] [place], [address], 06/08/2023 09:37:54 09/18/2023 XR, lumbar spine completed [facility]: Pulmonology [address] [facility], [place], [address], 09/21/2023 08:39:20 10/08/2023 XR, knee completed [facility] [address] [place] [address], [id number], 10/08/2023 13:34:05 10/08/2023 XR, knee completed [facility] [address] [place] [address], [id number], 10/08/2023 13:34:14 10/23/2023 MRI, knee, w/o contrast completed [facility] (Radiology) [place], [address], 10/23/2023 16:59:19 10/23/2023 MRI, knee, w/o contrast completed [facility] [place], [address], 10/23/2023 16:59:04 11/18/2023 XR, lumbar [place], [address], 11/19/2023 08:50:15 11/30/2023 XR, lumbar spine completed [address], [address], 12/04/2023 17:31:11 12/10/2023 CT, abdomen + pelvis, w/ contrast completed [facility] [address], [place], [address], 12/11/2023 13:59:56 05/19/2024 XR, [place], [address], 05/19/2024 15:20:09 06/30/2024 XR, lumbar spine completed [facility]: Pulmonology [address] [place] [address], [id number], 06/30/2024 14:46:06 Procedure Notes None recorded. Medical Equipment None Reported. Allergies Allergen ID Allergen Name Allergen Category Reaction Reaction Severity Criticality Documentation Date Start Date Code Code System Note Provider Name and Address Organization Details Recorded Time 426709 honey bee venom medicatio n Not available Not available Not available 10/20/2017 55161 7 RxNorm Not Available Not Available Not Available 273506 honey bee venom environme nt Not available Not available Not available 08/26/2018 93346 7 RxNorm Not Available Not Available Not Available 536187 Bactrim medicatio n hives Not available low 08/19/2022 01917 9 RxNorm Not Available Not Available Not Available 49020 gabapenti n medicatio n other Not available low 04/18/2014 59532 RxNorm visio n probl ems Not Available Not Available Not Available Medications Name Sig Start Date Stop Date Status Note LastModified by Organization Details LastModified Time ondansetr on hcl 4 mg tabs 06/25 completed Not Available Not Available Not Available hydrocort isone 2.5 % crea 06/25 completed Not Available Not Available Not Available clindamyc in hcl 300 mg caps 10/20 completed Not Available Not Available Not Available omeprazol e 20 mg cpdr 10/20 completed Not Available Not Available Not Available cyclobenz aprine hydrochlo ride 10 mg tabs 05/26 completed Not Available Not Available Not Available nortripty line hcl 25 mg caps 06/25 completed Not Available Not Available Not Available olanzapin e 10 mg tabs 06/25 completed Not Available Not Available Not Available fenofibra te micronize d 134 mg caps 05/26 completed Not Available Not Available Not Available amoxicill in/clavul anate potassium 875-125 mg tabs 06/25 completed Not Available Not Available Not Available ciproflox acin hydrochlo ride 500 mgtabs 06/07 completed Not Available Not Available Not Available escitalop sujit oxalate 20 mg tabs 05/04 completed Not Available Not Available Not Available peg 3350/elec trolytes 240 gm solr 06/25 completed Not Available Not Available Not Available levothyro xine sodium 75 mcg tabs 05/26 completed Not Available Not Available Not Available escitalop sujit oxalate 10 mg tabs 05/26 completed Not Available Not Available Not Available hydrocodo ne/acetam inophen 10-325 mg tabs 01/08 completed Not Available Not Available Not Available erythromy kevin base 500 mg tabs 06/25 completed Not Available Not Available Not Available lovastati n 20 mg tabs 06/25 completed Not Available Not Available Not Available dicyclomi ne hcl 10 mg caps 06/25 completed Not Available Not Available Not Available sulfameth oxazole/t rimethopr im ds 800-160 mg tabs 07/06 completed Not Available Not Available Not Available azithromy kevin 250 mg tabs 05/04 completed Not Available Not Available Not Available neomycin sulfate 500 mg tabs 06/25 completed Not Available Not Available Not Available olanzapin e 20 mg tabs 05/26 completed Not Available Not Available Not Available benztropi ne mesylate 0.5 mg tabs 05/26 completed Not Available Not Available Not Available atorvasta tin calcium 40 mg tabs 10/29 completed Not Available Not Available Not Available levofloxa kevin 500 mg tabs 10/29 completed Not Available Not Available Not Available meloxicam 15 mg tabs 12/08 completed Not Available Not Available Not Available cyclobenz aprine hcl 10 mg tabs 05/26 completed Not Available Not Available Not Available epinephri ne 0.3 mg/0.3ml soaj 05/26 completed Not Available Not Available Not Available sertralin e hcl 100 mg tabs active Not Available Not Available Not Available lyrica 75 mg caps 01/12 completed Not Available Not Available Not Available omeprazol e 40 mg cpdr 10/29 completed Not Available Not Available Not Available levothyro xine sodium 50 mcg tabs 05/13 completed Not Available Not Available Not Available oxycodone /acetamin ophen 5-325 mg tabs 06/25 completed Not Available Not Available Not Available diclofena c sodium dr 75 mg tbec 06/25 completed Not Available Not Available Not Available diclofena c sodium 1 % gel 05/26 completed Not Available Not Available Not Available atorvasta tin calcium 20 mg tabs 06/25 completed Not Available Not Available Not Available benztropi ne mesylate 1 mg tabs 06/25 completed Not Available Not Available Not Available hydroxyzi ne pamoate 25 mg caps 06/25 completed Not Available Not Available Not Available tamsulosi n hcl 0.4 mg caps active Not Available Not Available Not Available naproxen 500 mg tabs 06/25 completed Not Available Not Available Not Available prednison e 20 mg tabs 05/26 completed Not Available Not Available Not Available megestrol acetate 40 mg/ml susp 06/25 completed Not Available Not Available Not Available divalproe x sodium er 500 mg tb24 05/26 completed Not Available Not Available Not Available ibuprofen 600 mg tabs 06/25 completed Not Available Not Available Not Available hydrocodo ne/acetam inophen 5-325 mgtabs 07/06 completed Not Available Not Available Not Available tramadol hcl 50 mg tabs 05/26 completed Not Available Not Available Not Available trazodone hcl 50 mg tabs active Not Available Not Available Not Available zolpidem tartrate 5 mg tabs active Not Available Not Available No t Available loperamid e hcl 2 mg caps 06/25 completed Not Available Not Available Not Available mupirocin 2 % oint 07/06 completed Not Available Not Available Not Available cyclobenz aprine 10 mg tablet Take 1 tablet 3 times a day by oral route. 01/12 completed Not Available Not Available Not Available dicloxaci llin 500 mg capsule TAKE 1 CAPSULE BY MOUTH 4 TIMES DAILY FOR 10 DAYS 09/30 completed Not Available Not Available Not Available atorvasta tin 40 mg tablet TAKE 1 TABLET DAILY 06/19 completed Not Available Not Available Not Available methocarb aidan 500 mg tablet TAKE 2 TABLETS BY MOUTH EVERY 6 HOURS 01/12 completed Not Available Not Available Not Available hydrocodo ne 7.5 mg-ibupro fen 200 mg tablet TAKE 1 TABLET BY MOUTH EVERY 6 HOURS NEEDED FOR MODERATE PAIN MAX 4 PER DAY 01/12 completed Not Available Not Available Not Available venlafaxi ne ER 75 mg capsule,e xtended release 24 hr 02/03 completed taking 150mg Not Available Not Available Not Available atorvasta tin 20 mg tablet Take 1 tablet(s ) EVERY NIGHT by oral route. 06/25 completed Not Available Not Available Not Available benztropi ne 0.5 mg tablet TAKE ONE TABLET BY MOUTH ONCE DAILY AT BEDTIME. 01/08 completed Not Available Not Available Not Available lamotrigi ne 200 mg tablet Take 1 tablet twice a day by oral route. active Not Available Not Available No t Available ropinirol e 1 mg tablet Take 1 tablet(s ) 3 times a day by oral route as needed for 30 days. 01/12 completed Not Available Not Available Not Available clindamyc in HCl 300 mg capsule Take 1 capsule every 6 hours by oral route for 10 days. 05/19 completed Not Available Not Available Not Available trazodone 50 mg tablet 01/12 completed Not Available Not Available Not Available cetirizin e 10 mg tablet Take 10 mg by oral route. 01/08 completed Not Available Not Available Not Available azithromy kevin 250 mg tablet 02/03 completed Not Available Not Available Not Available amitripty line 75 mg tablet active Not Available Not Available No t Available tizanidin e 4 mg tablet TAKE 1 TABLET BY MOUTH EVERY 6 HOURS NEEDED FOR MUSCLE SPASMS 01/12 completed Not Available Not Available Not Available hydrocodo ne 5 mg-acetam inophen 325 mg tablet TAKE 1 TABLET BY MOUTH EVERY 8 HOURS NEEDED 04/10 completed Not Available Not Available Not Available prazosin 1 mg capsule 01/12 completed Not Available Not Available Not Available ondansetr on HCl 8 mg tablet Take 1 tablet twice a day by oral route as needed for 10 days. 06/24 completed Not Available Not Available Not Available meloxicam 15 mg tablet 01/08 completed Not Available Not Available Not Available lisinopri l 20 mg tablet Take 1 tablet every day by oral route for 90 days. 06/05 completed Not Available Not Available Not Available ondansetr on HCl 4 mg tablet active Not Available Not Available No t Available prednison e 20 mg tablet 01/08 completed Not Available Not Available Not Available Viagra 50 mg tablet Take 1 tablet as needed by oral route. active Dr. Jorgensen Not Available Not Available Not Available gabapenti n 400 mg capsule Take 1 capsule 3 times a day by oral route. active Patient is not taking. Not Available Not Available Not Available olanzapin e 5 mg tablet TAKE 1 TABLET BY MOUTH EVERY DAY AT BEDTIME active Not Available Not Available No t Available venlafaxi ne ER 150 mg capsule,e xtended release 24 hr Take 1 capsule every day by oral route for 90 days. active Not Available Not Available No t Available cyanocoba sheldon (vit B-12) 1,000 mcg tablet TAKE 1 TABLET BY MOUTH EVERY DAY active Not Available Not Available No t Available olanzapin e 10 mg tablet active Not Available Not Available Not Available lithium carbonate ER 300 mg tablet,ex tended release Take 1 tablet 3 times a day by oral route for 90 days. 06/20 completed Not Available Not Available Not Available amlodipin e 2.5 mg tablet 07/13 completed Not Available Not Available Not Available amlodipin e 5 mg tablet Take 1 tablet every day by oral route for 90 days. active Not Available Not Available No t Available Tamiflu 75 mg capsule Take 1 capsule twice a day by oral route for 5 days. 2024 active Not Available Not Available Not Avai lable sulfameth oxazole 800 mg-trimet hoprim 160 mg tablet 02/03 completed Not Available Not Available Not Available olanzapin e 2.5 mg tablet active Not Available Not Available Not Available hydrocodo ne 10 mg-acetam inophen 325 mg tablet TAKE 1 TABLET BY MOUTH EVERY 6-8 HOURS NEEDED. MAX 2 TABS PER 24 HOURS 02/03 completed Not Available Not Available Not Available omeprazol e 40 mg capsule,d elayed release TAKE 1 CAPSULE BY MOUTH ONCE DAILY 01/12 completed Not Available Not Available Not Available aspirin 81 mg tablet,de layed release Take 81 mg by oral route. 02/03 completed Not Available Not Available Not Available tramadol 50 mg tablet TAKE 1 TABLET BY MOUTH EVERY 6 HOURS NEEDED FOR PAIN 01/12 completed Not Available Not Available Not Available vancomyci n 1,000 mg intraveno us injection 05/19 completed Not Available Not Available Not Available quetiapin e 100 mg tablet 05/19 completed Not Available Not Available Not Available amitripty line 50 mg tablet 01/12 completed Not Available Not Available Not Available fenofibra te micronize d 134 mg capsule TAKE 1 CAPSULE BY MOUTH DAILY 01/08 completed Not Available Not Available Not Available Depo-Medr ol 80 mg/mL suspensio n for injection Take 1 mL by injectio n route. 05/19 completed Not Available Not Available Not Available lamotrigi ne 25 mg tablet TAKE 1 TABLET BY MOUTH ONCE DAILY 05/19 completed Not Available Not Available Not Available levothyro xine 75 mcg tablet TAKE 1 TABLET BY MOUTH DAILY. 2024 active Not Available Not Available Not Avai lable risperido ne 2 mg tablet 05/19 completed Not Available Not Available Not Available meloxicam 7.5 mg tablet TAKE 1 TABLET BY MOUTH DAILY active Not Available Not Available No t Available oxycodone -acetamin ophen 5 mg-325 mg tablet TAKE 1 TABLET BY MOUTH 4 TIMES DAILY NEEDED FOR PAIN 05/19 completed Not Available Not Available Not Available potassium chloride ER 20 mEq tablet,ex tended release(p art/cryst ) TAKE 1 TABLET BY MOUTH EVERY DAY active Not Available Not Available No t Available amitripty line 25 mg tablet 01/12 completed Not Available Not Available Not Available lorazepam 0.5 mg tablet 02/03 completed Not Available Not Available Not Available oxycodone -acetamin ophen 10 mg-325 mg tablet 05/19 completed Not Available Not Available Not Available tamsulosi n 0.4 mg capsule Take 1 capsule every day by oral route. 02/03 completed Not Available Not Available Not Available diazepam 2 mg tablet active Not Available Not Available Not Available baclofen 10 mg tablet 06/24 completed Not Available Not Available Not Available amlodipin e 10 mg tablet TAKE 1 TABLET BY MOUTH EVERY DAY active Not Available Not Available No t Available lithium carbonate 300 mg capsule TAKE 1 CAPSULE BY MOUTH TWICE DAILY 06/19 completed Not Available Not Available Not Available benzonata te 100 mg capsule Take 1 capsule 3 times a day by oral route as needed for 30 days. 02/03 completed Not Available Not Available Not Available doxycycli ne monohydra te 100 mg capsule 05/19 completed Not Available Not Available Not Available levothyro xine 50 mcg tablet TAKE 1 TABLET BY MOUTH DAILY. 06/02 completed Not Available Not Available Not Available pantopraz ole 40 mg tablet,de layed release active Not Available Not Available Not Available Cipro 500 mg tablet Take 1 tablet every 12 hours by oral route for 10 days. 02/24 completed Not Available Not Available Not Available dexametha sone 4 mg tablet active Not Available Not Available Not Available divalproe x ER 500 mg tablet,ex tended release 24 hr TAKE 2 TABLETS ONCE DAILY 01/07 completed Not Available Not Available Not Available naproxen 500 mg tablet,de layed release 01/12 completed Not Available Not Available Not Available polymyxin B sulfate 10,000 unit-trim ethoprim 1 mg/mL eye drops INSTILL 1 DROP INTO AFFECTED EYE(S) BY OPHTHALM IC ROUTE EVERY 6 HOURS 06/19 completed Not Available Not Available Not Available orphenadr ine citrate ER 100 mg tablet,ex tended release TAKE 1 TABLET BY MOUTH EVERY 12 HOURS 04/10 completed Not Available Not Available Not Available omeprazol e 20 mg capsule,d elayed release 01/08 completed Not Available Not Available Not Available hydrocort isone 2.5 % topical cream APPLY A THIN LAYER TO THE AFFECTED AREA(S) BY TOPICAL ROUTE 2 TIMES PER DAY 2024 active Not Available Not Available Not Avai lable olanzapin e 15 mg tablet 05/19 completed Not Available Not Available Not Available hydrochlo rothiazid e 25 mg tablet Take 1 tablet every day by oral route for 90 days. active Not Available Not Available No t Available mupirocin 2 % topical ointment APPLY A SMALL AMOUNT TO THE AFFECTED AREA BY TOPICAL ROUTE 3 TIMES PER DAY 07/06 completed Not Available Not Available Not Available diclofena c sodium 50 mg tablet,de layed release TAKE 1 TABLET BY MOUTH EVERY 8 HOURS 05/19 completed Not Available Not Available Not Available mirtazapi ne 15 mg tablet 02/03 completed Not Available Not Available Not Available gabapenti n 100 mg capsule active Patient is not taking. Not Available Not Available Not Available vancomyci n 10 gram intraveno us solution 05/19 completed Not Available Not Available Not Available lorazepam 1 mg tablet Take 1 tablet 3 times a day by oral route as needed for 30 days. 07/17 completed PRN Not Available Not Available Not Available epinephri ne 0.3 mg/0.3 mL injection , auto-inje ctor INJECT 0.3 MILLILIT ER (0.3 MG) BY INTRAMUS CULAR ROUTE ONCE NEEDED FOR ANAPHYLA XIS active Not Available Not Available No t Available ibuprofen 600 mg tablet TAKE 1 TABLET BY MOUTH FOUR TIMES DAILY NEEDED 04/10 completed Not Available Not Available Not Available levofloxa kevin 500 mg tablet TAKE 1 TABLET BY MOUTH EVERY DAY 07/13 completed Not Available Not Available Not Available lovastati n 20 mg tablet TAKE ONE TABLET BY MOUTH EVERY EVENING 06/25 completed Not Available Not Available Not Available zolpidem 10 mg tablet 01/12 completed Not Available Not Available Not Available methylpre dnisolone 4 mg tablets in a dose pack FOLLOW PACKAGE DIRECTIO NS active Not Available Not Available No t Available albuterol sulfate HFA 90 mcg/actua tion aerosol inhaler USE 2 PUFFS BY MOUTH 4 TIMES A DAY NEEDED FOR SHORTNES S OF BREATH OR WHEEZING 06/24 completed Not Available Not Available Not Available Vitamin D2 1,250 mcg (50,000 unit) capsule TAKE ONE CAPSULE BY MOUTH EVERY WEEK 10/20 completed Not Available Not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 12/23/2023 10:45:46 12/24/2023 14:25:59 Nasal congestion 82923577 R09.81 Edema of l ower extremity 949957039 R60.0 Bilious vomiting 1424846 2 R11.14 Overweight 210205165 E66 .3 Essential hypertension 84013131 I10 [id number] Rivka Jamison MA [facility] [address] [place] [address] 05/02/2024 15:00:28 05/09/2024 10:11:53 Overweight 729662464 E66.3 External hemorrhoids 239 62989 K64.4 Upper resp iratory infection 18677382 J00 Influenza caused by Influenza A virus 050493438 J09.X2 [id number] Rivka Jamison MA [facility] [address] [place] [address] 06/29/2024 10:27:54 06/29/2024 15:52:34 Active or passive immunization 577682802 Z23 Health Concerns Section Related Observation LastModified by Organization Detai ls LastModified Time None Recorded Concern Status LastModified by Organization Details LastModified Time None Recorded Advance Directives Directive None Recorded Payers Encounter Date Sequence Insurance Name Policy Number Policy Beavers Covered Member ID Beavers Member ID Guarantor Name 05/19/2023 2 [place]ARE OR MEDICARE REPLACEMENT PRIMARY) Baljeet Virgil [id number] Baljeet Virgil 05/19/2023 1 [facility] (MEDICARE REPLACEMENT/AD VANTAGE - HMO) [id number] Baljeet L Virgil [id number] Baljeet Virgil 07/14/2023 2 [place] REPLACEMENT PRIMARY) Baljeet Virgil [id number] Baljeet Virgil 07/14/2023 1 [facility] (MEDICARE REPLACEMENT/AD VANTAGE - HMO) [id number] Baljeet L Virgil [id number] Baljeet Virgil 12/23/2023 2 [place]IC[place] REPLACEMENT PRIMARY) Baljeet Virgil [id number] Baljeet Virgil 12/23/2023 1 [employer] (MEDICARE REPLACEMENT/AD VANTAGE - HMO) [id number] Baljeet L Virgil [id number] Baljeet Virgil 05/02/2024 2 [place] OR MEDICARE REPLACEMENT PRIMARY) Baljeet Virgil [id number] Baljeet Virgil 05/02/2024 1 [employer] (MEDICARE REPLACEMENT/AD VANTAGE - HMO) [id number] Baljeet L Virgil [id number] Baljeet Virgil 06/29/2024 2 [place] OR MEDICARE REPLACEMENT PRIMARY) Baljeet Virgil [id number] Baljeet Virgil 06/29/2024 1 [facility] (MEDICARE REPLACEMENT/AD VANTAGE - HMO) [id number] Baljeet L Virgil [id number] Baljeet Virgil Notes Date Note Type Note Provider Name and Address Organization Details Recorded Time 05/19/2023 text/html swelling and gaining weight...drinking alot of soda...and eats too much...always thirsty... Annamaria Meyer PA-C Attn: Accounting,[address] [facility], [place], [address], [facility] [place] 05/19/2023 12:17:53 07/14/2023 text/html having spinal surgery on august 09...needs clearance Annamaria Meyer PA-C Attn: Accounting,[address] [facility], [place], [address], [facility] - [facility] 07/14/2023 11:00:06 12/23/2023 text/html surgery in July o n his back...since then has had leg swelling off/on...also vomiting dry heaves then lots of yellow... Annamaria Meyer PA-C Attn: Accounting,[address] [facility], [place], [address], [facility] - [facility] 12/23/2023 11:16:28 05/02/2024 text/html cough hard to breathe 3 days..... high fever 101 also weak and achy also hemorrhoids bleeding.. Rivka Jamison MA [facility] [place] [facility] [place] 05/03/2024 14:20:29
--- OUTSIDE RECORDS SUMMARY | 2024-07-04 11:40 | XMS_ITS | Encounter Summary ---
Author Organization [facility] Address [address] [facility] [address] [place] [address] Phone Care Team Providers Care Safety Investigator/Cause Analyst Name Role Phone Kevin Meyer Primary Care Provider [phone] Kevin Meyer Primary Care Provider [phone] Kevin Meyer Unavailable [phone] Benja Esteban MD Unavailable [phone] Samy Bravo MD PhD Unavailable [phone] Vivian Horn RN Unavailable [phone] Encounter Details Date Type Department Care Team (Late st Contact Info) Description 05/20/2017 Orders Only [facility] ProviderEstefania MD [address] [place] [address] Social History Tobacco Use Types Packs/Day Years Used Date Smoking Tobacco: Former Smokeless Tobacco: Never Alcohol Use Standard Drinks/Week Comments No 0 (1 standard drink = 0.6 oz pur e alcohol) Sex and Gender Information Value Date Recorded Sex Assigned at Not on file Legal Sex Male 3:25 AM SALES ADMINISTRATION MANAGER Gender Identity Male 03/26/2021 11:53 AM SALES ADMINISTRATION MANAGER Sexual Orientation Choose not to disclose 2021 11:53 AM SALES ADMINISTRATION MANAGER documented as of this encounter Plan of Treatment Not on file documented as of this encounter Procedures Procedure Name Priority Date/Time Associated Diagnosis Comments DISCHARGE LABORATORY CUMULATIVE REPORT 05/20/2017 12:00 AM SALES ADMINISTRATION MANAGER documented in this encounter Results * DISCHARGE LABORATORY CUMULATIVE REPORT (05/20/2017 12:00 AM SALES ADMINISTRATION MANAGER) Narrative 05/20/2017 12:00 AM SALES ADMINISTRATION MANAGER Ordered by an unspecified provider. us Historical Provider LAB BLOOD ORDERABLES Elena l Result documented in this encounter Visit Diagnoses Not on filedocumented in this encounter Care Teams Safety Investigator/Cause Analyst Relationship Specialty Start Date End Date Kevin Meyer PA [address] [place] [address] PCP - General 08/13/16 03/22/19 Kevin Meyer PA [address] [place] [address] PCP - General 03/23/19 Kevin Meyer PA [address] [place] [address] 03/23/19 Benja Esteban MD [address] [place] [address] Medical Oncologist/Cost Coordinator Hematology and Oncology 02/28/20 Samy Bravo MD PhD [address] [place] [address] Resident Psychiatry 05/31/20 09/17/20 Vivian Horn, RN [address] [address] [facility] Outpatient Office System Analyst 02/01/21 02/28/21 documented as of this encounter
--- OUTSIDE RECORDS SUMMARY | 2024-07-04 11:40 | XMS_ITS | CONTINUITY OF CARE DOCUMENT ---
Author Name linda mckeon Address Unknown Organization [facility] Address [address] [place] [address] [address] [place] [address] Phone [phone] Care Team Providers Care Diesel Plant Operator Name Role Phone Marlo HERNANDES, Eli Unavailable BETSY REYNA MD Unavailable [phone] INSURANCE PROVIDERS Payer name Policy type / Coverage type [place] red democrat [employer] Medicaid 0 [id number] [place] [employer] Medicare [id number]
--- OUTSIDE RECORDS SUMMARY | 2024-07-04 11:40 | XMS_ITS | Clinical Summary ---
Author Organization [facility] Address [address] [place] [address] Phone Care Team Providers Care Safemaker Name Role Phone Unavailable Unavailable Unavailable Reason [...] On 05/29/2022 9:44AM By Ar COX ; [facility] Pregabalin 50 MG Oral Capsule 05/01/2022 Provider: Diagnosis: 50mg BID Last Documented On 05/01/2022 1:59PM By Freida Britt RN ; [facility] Rimegepant Sulfate 75 MG Oral Tablet Disintegrating Provider: Diagnosis: 75mg daily prn for migraine [place] Last Documented On 05/01/2022 2:00PM By Freida Britt RN ; [facility] traMADol HCl 50 MG Oral Tablet 05/01/2022 Provider: Diagnosis: 1 tab po q 6 hrs prn Last Documented On 05/01/2022 2:01PM By Freida Britt RN ; [facility] Effexor XR 150 MG Oral Capsule Extended Release 24 Alexandra r 05/01/2022 Provider: Diagnosis: 1 daily Last Documented On 05/01/2022 2:02PM By Freida Britt RN ; [facility] rOPINIRole HCl 1 MG Oral Tablet 05/01/2022 Provider: Diagnosis: TID prn Last Documented On 05/01/2022 2:02PM By Freida Britt RN ; [facility] Prazosin HCl 1 MG Oral Capsule 05/01/2022 Provider: Diagnosis: Last Documented On 05/01/2022 1:59PM By Freida Britt RN ; [facility] QUEtiapine Fumarate 100 MG Oral Tablet 05/01/2022 Pr ovider: Diagnosis: Last Documented On 05/01/2022 1:58PM By Freida Britt RN ; [facility] Cyclobenzaprine HCl 10 MG Oral Tablet 05/01/2022 Pro vider: Diagnosis: 1 tab po TID prn for muscle spasms Last Documented On 05/01/2022 1:58PM By Freida Britt RN ; [facility] Loreev XR 1 MG Oral Capsule ER 24 Hour Sprinkle 2022 Provider: Diagnosis: Last Documented On 05/01/2022 1:35PM By Ar COX ; [facility] Venlafaxine HCl ER 150 MG Or al Capsule Extended Release 24 Hour 02/28/2021 Provider: Diagnosis: Last Documented On 02/28/2021 9:15AM By Ar COX ; [facility] Levothyroxine Sodium 75 MCG Oral Capsule 02/28/2021 Provider: Diagnosis: Last Documented On 02/28/2021 9:14AM By Ar COX ; [facility] Past Medications on file Cyclobenzaprine HCl 10 MG Oral Tablet 06/20/2022 - 06/25/2022 Provider: NALDO BETH MD Diagnosis: Dorsalgia, unspecified 1 tab po TID prn for muscle spasms Last Documented On 06/20/2022 12:32PM By Naldo Beth MD ; [facility] Medications Administered Includes: Administered Medications from this encounter No Administered Medications Recorded Results Includes: Results discussed during this encounter No Results Recorded For Specified Dates History of Present Illness Includes: History of Present Illness from this encounter No History of Present Illness Recorded Social History Description Last Updated Tobacco non-user 02/28/2021 Last Documented On 3 1:08PM ; [facility] No recent change in sleep 02/28/2021 Last Documented On 3 1:08PM ; [facility] [PHQ-2] Patient Health Questionnaire 2 i tem total score: 8 (Scale: 0-6) 02/28/2021 Last Documented On 3 1:08PM ; [facility] Difficulty walking 02/28/2021 Last Documented On 3 1:08PM ; [facility] No consumption of alcohol 02/28/2021 Last Documented On 3 1:08PM ; [facility] Not using drugs 02/28/2021 Last Documented On 3 1:08PM ; [facility] Smoking Status Unknown Procedures and Surgical History Surgical History Last Updated No Pacemaker 02/28/2021 Last Documented On 3 1:08PM ; [facility] Medical History Includes: Medical History addressed during this encounter Description Last Updated Blood pressure was high 02/28/2021 Last Documented On 3 1:08PM ; [facility] Hypertension 02/28/2021 Last Documented On 3 1:08PM ; [facility] No exposure to a contagious disease 11/2020 Last Documented On 3 1:08PM ; [facility] No previous psychiatric treatment 2020 Last Documented On 3 1:08PM ; [facility] Not taking OTC medications 02/28/2021 Last Documented On 3 1:08PM ; [facility] Taking medication for high blood pressur e 02/28/2021 Last Documented On 3 1:08PM ; [facility]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 Last Documented On 3 1:08PM ; [facility] Currently wearing eyeglasses 02/28/2021 Last Documented On 3 1:08PM ; [facility] Injection/Nerve blocks 02/28/2021 Last Documented On 3 1:08PM ; [facility] Moderate to severe pain 02/28/2021 Last Documented On 3 1:08PM ; [facility] No Pain Pump 02/28/2021 Last Documented On 3 1:08PM ; [facility] No Spinal cord stimulator 02/28/2021 Last Documented On 3 1:08PM ; [facility] Other method: 02/28/2021 Last Documented On 3 1:08PM ; [facility] Physical therapy 02/28/2021 Last Documented On 3 1:08PM ; [facility] Please list all illnesses/co nditions you have been diagnosed with: Bi polar manic depressed colon cancer 02/28/2021 Last Documented On 3 1:08PM ; [facility] Please list all surgeries: Dec colos gabby Apr 2015 ankle Jan 2021 ankle 02/28/2021 Last Documented On 3 1:08PM ; [facility] Surgery 02/28/2021 Last Documented On 3 1:08PM ; [facility] Uses a cane for support 02/28/2021 Last Documented On 3 1:08PM ; [facility] Uses a Knee Brace 02/28/2021 Last Documented On 3 1:08PM ; [facility] Family History Includes: Family History addressed during this encounter Description Last Updated Fraternal history of Arthritis 1 Last Documented On 3 1:08PM ; [facility] Maternal history of family history of is chemic heart disease 02/28/2021 Last Documented On 3 1:08PM ; [facility] Reported family history of seizures 11/2020 Last Documented On 3 1:08PM ; [facility] Review of Systems Includes: Review [...] Active Last Documented On 07/02/2022 3:31PM ; [facility] Note: Blurred vision BEES Allergy 05/01/2022 Active Last Documented On 3 3:31PM ; [facility] Bactrim Allergy Skin Rashes / Eruption of skin 3 Active Last Documented On 3 3:31PM ; [facility] Encounters Encounter Provider Location Date Check-In Time Check-Out Time Diagnosis POST PROCEDURE PHONE CALL NALDO BETH MD 08/01/2022 1:07PM 11:59PM Insurance Includes: Active Insurance Policies Plan Name Member ID Group # Subscriber Relationship Effect vini Dates 1 - [facility] [id number] AILEEN HURD Self 2 - [place] MED[place] SECOND [id number] AILEEN HURD Self Clinical Notes Includes: Clinical Notes from this encounter * Progress note Date Encounter Last Documented by 08/01/2022 POST PROCEDURE PHONE CALL Last d ocumented on 08/01/2022; 1:10 PM, Freida Britt RN; [facility] Top of Document Post-Procedural [...] Medical/Surgical History Reported: 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
--- OUTSIDE RECORDS SUMMARY | 2024-07-04 11:41 | XMS_ITS | Encounter Summary ---
Author Organization [facility] Address [address] [place] [address] Phone Care Team Providers Care Funeral Home Attendant Name Role Phone Kevin Meyer Primary Care Provider [phone] Amy Allen APRN, CHILD ATTENDANT Unavailable + [phone] Dawit MARISCAL MD, Courtney Unavailable [phone] Brad Bone MD Unavailable [phone] Vanda Jimenez APRN, CHILD ATTENDANT Unavailable Min Mario MD Unavailable Encounter Details Date Type Department Care Team (Late st Contact Info) Description 06/30/2024 Results Follow-Up [facility] #[address] [place] [address] Min Mario MD #[address], [address] [address] Social History Tobacco Use Types Packs/Day Years [...] 07/15/2024 9:30 AM CDT Appointment [facility] [address] [place] [address] Min Mario MD #2 [facility] [address] [place] [address] Discharge Disposition: Discharged to home or Selfcare 07/21/2024 9:30 AM CDT Procedure Visit [facility] #2 [place] [phone] Min Mario MD #2 [facility] [address] [place] [address] documented as of this encounter Visit Diagnoses Not on filedocumented in this encounter Care Teams Funeral Home Attendant Relationship Specialty Start Date End Date Kevin Meyer PAC [address] [place] [id number] PCP - General Physician Investment Fund Manager 07/15/17 Amy Allen, SUPERVISOR FIREWORKS ASSEMBLY, CHILD ATTENDANT #2 [facility], [facility] [address] [place] [address] Nurse Practitioner Cardiology 01/27/23 Merlene Pastor III, MD #2 [place] [address] Consulting Physician Urology 10/28/21 Brad Bone MD #2 [place] [address] Consulting Physician Neurology 09/04/22 Vanda Jimenez APRN, CHILD ATTENDANT #2 [place] [address] Nurse Practitioner Advanced Practice Nurse 07/31/22 Min Mario MD #[address] [address] Consulting Physician Urology 12/17/23 documented as of this encounter
--- OUTSIDE RECORDS SUMMARY | 2024-07-04 11:41 | XMS_ITS ---
Care Plan - [facility] Created on: July 04, 2024 AILEEN HERMAN Sujatha : 1965 Sex: Male Author Organization [facility] Address [address] [place] [address] Phone Care Team Providers Care Milk Condenser Name Role Phone Unavailable Unavailable Unavailable
--- OUTSIDE RECORDS SUMMARY | 2024-07-04 11:41 | XMS_ITS | Encounter Summary ---
Author Organization [facility] Address [facility] [place] [address] Care Team Providers Care Director Surface Transportation Name Role Phone None, Provider Primary Care Provider Kevin Hassan Primary Care Provider Encounter Details Date Type Department Care Team (Late st Contact Info) Description 08/28/2018 Abstract [facility] CONVERSION [address] [place] [address] , Generic Conversion, Social History [...] Description 08/03/2024 10:00 AM CDT Hospital Encounter [facility] Interventional [place] [address] [id number] Daniela Henderson MD [address] [facility] [address] [place] [address] 08/03/2024 10:00 AM CDT - 08/03/2024 10:20 AM CDT Surgery [facility] [place] [address] [id number] Daniela Henderson MD [address] [facility] [address] [place] [address] INJECTION TRIGGER POINT - LEFT HARDWARE BLOCKS L5-S1 09/01/2024 2:20 PM CDT Office Visit [facility] Multispecialty Care - [facility] [address] [facility], [address] [place] [address] Mando Rojas MD [address] [place] [address] Scheduled Procedures Name Priority Associated Diagnoses Date/Ti [...] Rule Out 05/25/2021 05/25/2021 05/25/2021 9:39 PM TROMPER COVID-19 Rule Out 03/03/2023 03/03/2023 03/04/2023 7:03 PM TROMPER documented as of this encounter Care Teams Director Surface Transportation Relationship Specialty Start Date End Date None, Provider, PCP - General 01/10/20 05/27/21 Kevin Meyer PA [address] [place] [address] PCP - General PHYSICIAN DIRECTOR OPERATING 05/28/21 documented as of this encounter
--- OUTSIDE RECORDS SUMMARY | 2024-07-04 11:41 | XMS_ITS | Clinical Summary ---
Author Organization [facility] Address [address] [facility] [place] [address] Care Team Providers Care Mycology Teacher Name Role Phone Kevin Meyer Primary Care Provider [phone] Source Comments [facility],non-owned Affiliates and Associated Physician Practices is amultiple site organization consisting of ambulatory clinics and hospital sitesin [place], [place], [place] and [place]. This disclosure is being madepursuant to the Care Everywhere program and may not contain all information available regarding this patient. Last updated 17.[facility] Allergies Active Allergy Reactions Criticality Noted Date [...] on file Legal Sex Male 4:24 AM RN CLINICAL DOCUMENTATION SPECIALIST Gender Identity Not on file Sexual Orientation Not on file Last Filed Vital Signs Vital Sign Reading Time Taken Comments Blood Pressure 134/79 04/23/2022 1:34 PM RN CLINICAL DOCUMENTATION SPECIALIST Pulse 62 04/23/2022 1:34 PM RN CLINICAL DOCUMENTATION SPECIALIST Temperature 36.4 C (97.5 F) 04/23/2022 1:34 PM RN CLINICAL DOCUMENTATION SPECIALIST Respiratory Rate 18 10/15/2021 6:45 PM CDT Oxygen Saturation 100% 04/23/2022 1:34 PM RN CLINICAL DOCUMENTATION SPECIALIST Inhaled Oxygen Concentration - - Weight 94.3 kg (208 lb) 04/23/2022 1:34 PM RN CLINICAL DOCUMENTATION SPECIALIST Height 182.9 cm (6') 10/15/2021 7:20 AM [...] COMPREHENSIVE METABOLIC PANEL Routine 04/23/2022 11:02 AM RN CLINICAL DOCUMENTATION SPECIALIST Neuroendocrine carcinoma metastatic to liver from Last 3 Months or Most Recently Relevant to Health Maintenance Results * (ABNORMAL) COMPREHENSIVE METABOLIC PANEL (04/23/2022 11:02 AM [facility]) BUN 14 7 - 26 mg/dL 04/23/2022 11:56 AM [facility] Creatinine 0.81 0.71 - 1.16 mg/dL 04/23/2022 11:56 AM [facility] Sodium 136 136 - 145 mmol/L 04/23/2022 11:56 AM [facility] Potassium 3.9 3.5 - 4.5 mmol/L 04/23/2022 11:56 AM [facility] Chloride 102 98 - 107 mmol/L 04/23/2022 11:56 AM [facility] CO2 23 22 - 29 mmol/L 04/23/2022 11:56 AM [facility] Glucose 117(H) 70 - 115 mg/dL 04/23/2022 11:56 AM [facility] Calcium 9.1 8.4 - 10.2 mg/dL 04/23/2022 11:56 AM [facility] Protein Total 7.0 6.0 - 8.3 g/dL 04/23/2022 11:56 AM [facility] Albumin 3.8 3.4 - 5.0 g/dL 04/23/2022 11:56 AM [facility] Bilirubin Total 0.4 0.2 - 1.2 mg/dL 04/23/2022 11:56 AM [facility] Alkaline Phosphatase 112 40 - 150 U/L 04/23/2022 11:56 AM [facility] ALT 62(H) 5 - 55 U/L 04/23/2022 11:56 AM [facility] AST 31 5 - 34 U/L 04/23/2022 11:56 AM [facility] Anion Gap 15 8 - 18 04/23/2022 11:56 AM [facility] BUN/Creatinine Ratio 17 7 - 23 04/23/2022 11:56 AM [facility] Osmolality Calculated 284 270 - 300 mOsm/kg 04/23/2022 11:56 AM [facility] Albumin/Globulin Ratio 1.2 1.1 - 2.3 04/23/2022 11:56 AM RN CLINICAL DOCUMENTATION SPECIALIST [facility] eGFR by CKD-EPI >90 >=90 mL/min/1.7 3 m2 04/23/2022 11:56 AM [facility] Blood BLOOD SPECIMEN / Unknown Lab Venipuncture / Unknown 04/23/2022 11:02 AM RN CLINICAL DOCUMENTATION SPECIALIST 04/23/2022 11:31 AM RN CLINICAL DOCUMENTATION SPECIALIST Blair Le MD LAB - CHEMISTRY ORDERABLES Final Result [facility] [address] [place] [address], [facility] [phone] from Last 3 Months or Most Recently Relevant to Health Maintenance Insurance MEDICAID - OUT OF STATE MEDICAID [place] UHC MANAGED MEDICARE ADV Care Teams Mycology Teacher Relationship Specialty Start Date End Date Kevin Meyer PA [address] [place] [address] PCP - General 06/28/21
--- OUTSIDE RECORDS SUMMARY | 2024-07-04 11:41 | XMS_ITS | Clinical Summary ---
Author Organization [facility] naima [facility] Address [address] [place] [address] Care Team Providers Care Beauty Parlor Cleaner Name Role Phone Kevin Meyer Primary Care Provider [phone] Allergies Active Allergy Reactions Criticality Noted Date [...] daily. 4 Active naloxone (NARCAN) 4 mg/spray Preston, Non-Aerosol EMERGENCY USE ONLY: Administer 1 spray [...] but unfortunately it is not offered at [facility] and he will have to go to [facility] cancer sturgis. 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) 06/21/2024 Orders Only [facility] Oncology and Hematology - [place] [address] [place] [phone] Jorden Serrano MD 06/20/2024 Orders Only [facility] Oncology and Hematology - [place] [address] [place] [phone] Jorden Serrano MD Benign hypertension; 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) 06/08/2024 External Device Data STL ABSTRACTION Provider, Abstract 06/06/2024 Orders Only [facility] Oncology and Hematology - [place] [address] [place] [address] Jorden Serrano MD Benign hypertension; 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) 06/03/2024 Refill [facility] Oncology and Hematology - [address] [place] [address] Jorden Serrano MD 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) 05/31/2024 External Device Data STL ABSTRACTION Provider, Abstract 05/31/2024 External Device Data STL ABSTRACTION Provider, Abstract 05/28/2024 External Device Data STL ABSTRACTION Provider, Abstract 05/27/2024 External Device Data STL ABSTRACTION Provider, Abstract 05/23/2024 Orders Only [facility] Oncology and Hematology [place] [address] [place] [phone] Jorden Serrano MD Benign hypertension; 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) 05/17/2024 External Device Data STL ABSTRACTION Provider, Abstract 05/09/2024 Refill [facility] Oncology and Hematology [facility] [address] [place] [address] Jorden Serrano MD 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) 05/09/2024 Orders Only [facility] Oncology and Hematology [facility] [address] [place] [address] Jorden Serrano MD Benign hypertension; 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) 05/03/2024 External Device Data STL ABSTRACTION Provider, Abstract 04/25/2024 Orders Only [facility] Oncology and Hematology [facility] [address] [place] [address] Jorden Serrano MD Benign hypertension; 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) 04/11/2024 Orders Only [facility] Oncology and Hematology [place] [address] [place] [address] Jorden Serrano MD Benign hypertension; 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) 04/07/2024 Refill [facility] Oncology and Hematology [facility] [address] [place] [address] Jorden Serrano MD Malignant carcinoid tumor of [...] Comments Blood Pressure 117/63 03/08/2024 9:09 AM MANAGER OF ENGINEERING Pulse 81 03/08/2024 9:09 AM MANAGER OF ENGINEERING Temperature 36.6 C (97.8 F) 03/08/2024 9:09 AM MANAGER OF ENGINEERING Respiratory Rate 16 03/08/2024 9:09 AM MANAGER OF ENGINEERING Oxygen Saturation 96% 03/08/2024 9:09 AM MANAGER OF ENGINEERING Inhaled Oxygen Concentration - - Weight 95.3 kg (210 lb) 03/08/2024 9:09 AM MANAGER OF ENGINEERING Height 182.9 cm (6') 12/05/2021 8:44 AM CDT Body Mass Index 28.48 12/05/2021 8:44 AM CDT Plan of Treatment Upcoming Encounters Date Type Department Care Team (Late st Contact Info) Description 07/05/2024 2:15 PM CDT Office Visit [facility] Oncology and Hematology [facility] [address] [facility] [address] [place] [address] Jorden Serrano MD [address] [facility] [address] [place] [address] Health Maintenance Due Date Last [...] Relevant to Health Maintenance Insurance MEDICAID [place] [address] [id number] Care Teams Beauty Parlor Cleaner Relationship Specialty Start Date End Date Kevin Meyer PA [address] [place] [address] PCP - General Physician Occupational Therapist Per Diem 05/31/21
--- OUTSIDE RECORDS SUMMARY | 2024-07-04 11:41 | XMS_ITS | Encounter Summary ---
Author Organization [facility] Address [address] [place] [address] Phone Care Team Providers Care Crm Manager Name Role Phone Kevin Meyer Primary Care Provider [phone] Amy Allen APRN, CITY WELLNESS COORDINATOR Unavailable + [phone] Dawit MARISCAL MD, Courtney Unavailable [phone] Brad Bone MD Unavailable [phone] Vanda Jimenez APRN, CITY WELLNESS COORDINATOR Unavailable Min Mario MD Unavailable Encounter Details Date Type Department Care Team (Late st Contact Info) Description 06/30/2024 Results Follow-Up [facility] #[address] [place] [address] Min Mario MD #[address], [address] [address] Social History Tobacco Use Types Packs/Day Years [...] 07/15/2024 9:30 AM CDT Appointment [facility] CT [address] [place] [address] Min Mario MD #[address] [address] Discharge Disposition: Discharged to home or Selfcare 07/21/2024 9:30 AM CDT Procedure Visit [facility] #2 [place] [address] Min Mario MD #[address] [address] documented as of this encounter Visit Diagnoses Not on filedocumented in this encounter Care Teams Crm Manager Relationship Specialty Start Date End Date Kevin Meyer, [facility] [address] [place] [address] PCP - General Physician Medical Accounting Clerk 07/15/17 Amy Allen APRN, CITY WELLNESS COORDINATOR #2 [facility] [address] [place] [address] Nurse Practitioner Cardiology 01/27/23 Merlene Pastor III, MD #2 [place] [address] Consulting Physician Urology 10/28/21 Brad Bone MD #2 [place] [address] Consulting Physician Neurology 09/04/22 Vanda Jimenez APRN, CITY WELLNESS COORDINATOR #2 [place] [address] Nurse Practitioner Advanced Practice Nurse 07/31/22 Min Mario MD #[address] [address] Consulting Physician Urology 12/17/23 documented as of this encounter
--- OUTSIDE RECORDS SUMMARY | 2024-07-04 11:41 | XMS_ITS | Clinical Summary ---
Author Organization [facility] Address [address] [place] [address] Phone Care Team Providers Care Maintenance Controller Name Role Phone Unavailable Unavailable Unavailable Reason [...] On 05/29/2022 9:44AM By Ar COX ; [facility] Pregabalin 50 MG Oral Capsule 05/01/2022 Provider: Diagnosis: 50mg BID Last Documented On 05/01/2022 1:59PM By Freida Britt RN ; [facility] Rimegepant Sulfate 75 MG Oral Tablet Disintegrating Provider: Diagnosis: 75mg daily prn for migraine [place] Last Documented On 05/01/2022 2:00PM By Freida Britt RN ; [facility] traMADol HCl 50 MG Oral Tablet 05/01/2022 Provider: Diagnosis: 1 tab po q 6 hrs prn Last Documented On 05/01/2022 2:01PM By Freida Britt RN ; [facility] Effexor XR 150 MG Oral Capsule Extended Release 24 Alexandra r 05/01/2022 Provider: Diagnosis: 1 daily Last Documented On 05/01/2022 2:02PM By Freida Britt RN ; [facility] rOPINIRole HCl 1 MG Oral Tablet 05/01/2022 Provider: Diagnosis: TID prn Last Documented On 05/01/2022 2:02PM By Freida Britt RN ; [facility] Prazosin HCl 1 MG Oral Capsule 05/01/2022 Provider: Diagnosis: Last Documented On 05/01/2022 1:59PM By Freida Britt RN ; [facility] QUEtiapine Fumarate 100 MG Oral Tablet 05/01/2022 Pr ovider: Diagnosis: Last Documented On 05/01/2022 1:58PM By Freida Britt RN ; [facility] Cyclobenzaprine HCl 10 MG Oral Tablet 05/01/2022 Pro vider: Diagnosis: 1 tab po TID prn for muscle spasms Last Documented On 05/01/2022 1:58PM By Freida Britt RN ; [facility] Loreev XR 1 MG Oral Capsule ER 24 Hour Sprinkle 2022 Provider: Diagnosis: Last Documented On 05/01/2022 1:35PM By Ar COX ; [facility] Venlafaxine HCl ER 150 MG Or al Capsule Extended Release 24 Hour 02/28/2021 Provider: Diagnosis: Last Documented On 02/28/2021 9:15AM By Ar COX ; [facility] Levothyroxine Sodium 75 MCG Oral Capsule 02/28/2021 Provider: Diagnosis: Last Documented On 02/28/2021 9:14AM By Ar COX ; [facility] Past Medications on file Cyclobenzaprine HCl 10 MG Oral Tablet 06/20/2022 - 06/25/2022 Provider: NALDO BETH MD Diagnosis: Dorsalgia, unspecified 1 tab po TID prn for muscle spasms Last Documented On 06/20/2022 12:32PM By Naldo Beth MD ; [facility] Medications Administered Includes: Administered Medications from this encounter No Administered Medications Recorded Results Includes: Results discussed during this encounter No Results Recorded For Specified Dates History of Present Illness Includes: History of Present Illness from this encounter LOTTIE HURD is a 57 year old male. Pharmacy name:~location: [facility]. Social History Description Last Updated Tobacco non-user 02/28/2021 Last Documented On 11:01AM ; [facility] No recent change in sleep 02/28/2021 Last Documented On 3 11:01AM ; [facility] [PHQ-2] Patient Health Questionnaire 2 i tem total score: 8 (Scale: 0-6) 02/28/2021 Last Documented On 3 11:01AM ; [facility] Difficulty walking 02/28/2021 Last Documented On 3 11:01AM ; [facility] No consumption of alcohol 02/28/2021 Last Documented On 3 11:01AM ; [facility] Not using drugs 02/28/2021 Last Documented On 3 11:01AM ; [facility] Smoking Status Unknown Procedures and Surgical History Surgical History Last Updated No Pacemaker 02/28/2021 Last Documented On 3 11:01AM ; [facility] Medical History Includes: Medical History addressed during this encounter Description Last Updated Blood pressure was high 02/28/2021 Last Documented On 3 11:01AM ; [facility] Hypertension 02/28/2021 Last Documented On 3 11:01AM ; [facility] No exposure to a contagious disease 11/2020 Last Documented On 3 11:01AM ; [facility] No previous psychiatric treatment 2020 Last Documented On 3 11:01AM ; [facility] Not taking OTC medications 02/28/2021 Last Documented On 3 11:01AM ; [facility] Taking medication for high blood pressur e 02/28/2021 Last Documented On 3 11:01AM ; [facility]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 Last Documented On 3 11:01AM ; [facility] Currently wearing eyeglasses 02/28/2021 Last Documented On 3 11:01AM ; [facility] Injection/Nerve blocks 02/28/2021 Last Documented On 3 11:01AM ; [facility] Moderate to severe pain 02/28/2021 Last Documented On 3 11:01AM ; [facility] No Pain Pump 02/28/2021 Last Documented On 3 11:01AM ; [facility] No Spinal cord stimulator 02/28/2021 Last Documented On 3 11:01AM ; [facility] Other method: 02/28/2021 Last Documented On 3 11:01AM ; [facility] Physical therapy 02/28/2021 Last Documented On 3 11:01AM ; [facility] Please list all illnesses/co nditions you have been diagnosed with: Bi polar manic depressed colon cancer 02/28/2021 Last Documented On 3 11:01AM ; [facility] Please list all surgeries: Dec colos gabby Apr 2015 ankle Jan 2021 ankle 02/28/2021 Last Documented On 3 11:01AM ; [facility] Surgery 02/28/2021 Last Documented On 3 11:01AM ; [facility] Uses a cane for support 02/28/2021 Last Documented On 3 11:01AM ; [facility] Uses a Knee Brace 02/28/2021 Last Documented On 3 11:01AM ; [facility] Family History Includes: Family History addressed during this encounter Description Last Updated Fraternal history of Arthritis Last Documented On 3 11:01AM ; [facility] Maternal history of family history of is chemic heart disease 02/28/2021 Last Documented On 3 11:01AM ; [facility] Reported family history of seizures 11/2020 Last Documented On 3 11:01AM ; [facility] Review of Systems Includes: Review of [...] Active Last Documented On 07/02/2022 3:31PM ; [facility] Note: Blurred vision BEES Allergy 05/01/2022 Active Last Documented On 3 3:31PM ; [facility] Bactrim Allergy Skin Rashes / Eruption of skin 3 Active Last Documented On 3 3:31PM ; [facility] Encounters Encounter Provider Location Date Check-In Time Check-Out Time Diagnosis RX ISSUE/REFILL NALDO BETH MD 06/19/2022 11:01AM 11:59PM Insurance Includes: Active Insurance Policies Plan Name Member ID Group # Subscriber Relationship Effect vini Dates 1 - [facility] [id number] AILEEN HURD Self 2 - [place] MEDICARE SECOND [id number] AILEEN HURD Self Clinical Notes Includes: Clinical Notes from this encounter * Progress note Date Encounter Last Documented by 06/19/2022 RX ISSUE/REFILL Last documented on 06/19/2022; 5:11 PM, NALDO BETH MD; [facility] Chief Complaint Phone Call - Chief [...] 07/02/22 pt phone # for return call: [phone] date/initials: 06/19/22. History of Present Illness AILEEN HURD is a 57 year old male. Pharmacy name:~location: [facility]. 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
--- OUTSIDE RECORDS SUMMARY | 2024-07-04 11:41 | XMS_ITS | Clinical Summary ---
Author Organization [facility] Address [address] [place] [address] Phone Care Team Providers Care Forklift Material Handler Name Role Phone Kevin Meyer Primary Care Provider [phone] Amy Allen APRN, BUDDER Unavailable + [phone] Dawit MARISCAL MD, Courtney Unavailable [phone] Brad Bone MD Unavailable [phone] Vanda Jimenez APRN, BUDDER Unavailable Min Mario MD Unavailable Allergies Active [...] Department Care Team Description 06/30/2024 Results Follow-Up [facility] UROLOG[facility] #2 [place] [address] Min Mario MD 06/30/2024 Results Follow-Up [facility] UROLOGY #2 [place] [address] Min Mario MD 06/23/2024 9:30 AM CDT Office Visit [facility] UROLOGY #2 [place] [address] Min Mario MD Kidney stone (Primary Dx); Urinary tract infection with hematuria, site unspecified; Acute cystitis with hematuria Discharge Disposition: Discharged to home or Selfcare 06/22/2024 [facility] [place] [address] Vanda Jimenez APRN, JUANCHO Medication Refill 06/22/2024 Travel 06/20/2024 8:35 AM CDT - 06/20/2024 11:59 PM CDT Hospital Encounter [facility] Diagnostic Radiology [address] [place] [address] Min Mario MD Discharge Disposition: Discharged to home or Selfcare 06/20/2024 Travel 06/10/2024 Telephone [facility] #[address] [place] [address] Vanda Jimenez APRN, BUDDER from Last 3 Months Immunizations Immunization Administration [...] 9:30 AM CDT Appointment [facility] [address] [place] [address] Min Mario MD #[address] [address] Discharge Disposition: Discharged to home or Selfcare 07/21/2024 9:30 AM CDT Procedure Visit [facility] UROLOGY #2 [place] [address] Min Mario MD #[address] [address] Health Maintenance Due Date Last Done Comments [...] CULTURE, URINE (06/23/2024 10:11 AM CDT) Pathologist [facility] CULTURE RESULTS Mixed Growth of One or More Distal Urethral Contaminants 06/24/2024 11:25 PM CDT [facility] Culture URINE SPECIMEN OBTAINED BY CLEAN CATCH PROCEDURE / Unknown Non-Phlebotomy Collection / Unknown 06/23/2024 10:11 AM CDT 06/23/2024 10:11 AM CDT us Min Mario MD MICROBIOLOGY - GENERAL ORDERABLE S Final Result [facility] [address] [place] [address], * (ABNORMAL) POCT UA AUTOMATED W/O MICRO [...] Antonio/uL(A) Negative Jose Antonio/uL POC URINE COLOR [place] POC URINE CLARITY Clear Urine 06/23/2024 9:24 [...] Iker Curiel M.D. KH: BHUMIKA Report ID: [id number] Reading Location: [id number] Procedure Note Iker Curiel MD - 06/24/2024 [...] Iker Curiel M.D. KH: BHUMIKA Report ID: [id number] Reading Location: [place] [address] IMPRESSION: No acute abnormality Min Mario MD IMG DIAGNOSTIC ORDERABLES Final Result from Last 3 Months Insurance MEDICAID [place] MEDICARE C [employer] [place]ID [place] Advance Directives [...] all measures to stabilize patient. Care Teams Forklift Material Handler Relationship Specialty Start Date End Date Kevin Meyer PAC [address] [place] [address] PCP - General Physician Awning Frame Maker 07/15/17 Amy Allen, PRINCIPAL ACCOUNTS CLERK, BUDDER #2 [facility], [address] [place] [address] Nurse Practitioner Cardiology 01/27/23 Merlene Pastor III, MD #2 [place] [address] Consulting Physician Urology 10/28/21 Brad Bone MD #2 [place] [address] Consulting Physician Neurology 09/04/22 Vanda Jimenez APRN, BUDDER #2 [place] [address] Nurse Practitioner Advanced Practice Nurse 07/31/22 Min Mario MD #[address] [address] Consulting Physician Urology 12/17/23
--- OUTSIDE RECORDS SUMMARY | 2024-07-04 11:41 | XMS_ITS ---
Author Organization Unknown Address [address] [place] [id number] Phone Care Team Providers Care Meter Supervisor Name Role Phone RELIEF DOCKING MASTER PHYLLIS Attending Unavailable SUYAPA YIN Primary Unavailable [...] normal in course and morphology. There is xiwa-lo-iwdpqyoc olecranon bursitis with a dorsal soft tissue [...] Paul Valencia M.D. MF: [email or web address] Report ID: [id number] Reading Location: [id number] THIS IS AN ELECTRONICALLY VERIFIED FINAL REPORT 02/26/2023 10:28 AM ? Addendum Electronically signed by Paul Valencia M.D. MF: CLEMENTE Report ID: [id number] Reading Location: [id number] Social History Type Status Start Date End Date Code Code Syst em Smoking History Never smoker (Never Smoked) [id number] SNOMED CT Sex Male Hospital Discharge Instructions [...]
--- OUTSIDE RECORDS SUMMARY | 2024-07-04 11:41 | XMS_ITS | Encounter Summary ---
Author Organization [facility] Address [address] [place] [address] Care Team Providers Care Bonding Machine Setter Name Role Phone Kevin Meyer Primary Care Provider [phone] Encounter Details Date Type Department Care Team (Late Contact Info) Description 07/04/2024 Orders Only [facility] Oncology and Hematology [facility] [address] [place] [address] Jorden Serrano MD [facility] [address] [place] [address] Benign hypertension; Malignant carcinoid tumor of [...] Description 07/05/2024 2:15 PM CDT Office Visit [facility] Oncology and Hematology [address] [place] [address] Jorden Serrano MD [address] [place] [address] documented as of this encounter Visit Diagnoses Diagnosis Benign hypertension Essential hypertension, benign 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
--- OUTSIDE RECORDS SUMMARY | 2024-07-04 11:41 | XMS_ITS | Encounter Summary ---
Author Organization [facility] Address [address] [facility] [place] [address] Phone Care Team Providers Care Maintenance Clerk Name Role Phone Kevin Meyer Primary Care Provider [phone] Amy Allen APRN, HUMAN RESOURCE PROFESSIONAL Unavailable + [phone] Dawit MARISCAL MD, Courtney Unavailable [phone] Brad Bone MD Unavailable [phone] Vanda Jimenez APRN, HUMAN RESOURCE PROFESSIONAL Unavailable Min Mario MD Unavailable Encounter Details Date Type Department Care Team (Latest Contact Info) Description 02/25/2023 [facility] 1 [place] [address] Tavo Polo MD PhD #2 [place] [address] Abnormal echocardiogram (Primary Dx); Preprocedural [...] Info) Description 07/15/2024 9:30 AM CDT [facility] [address] [place] [address] Min Mario MD #[address] [address] Discharge Disposition: Discharged to home or Selfcare 07/21/2024 9:30 AM CDT Procedure Visit [facility] UROLOGY #2 [place] [address] Min Mario MD #[address] [address] documented as of this encounter Results * (ABNORMAL) BASIC METABOLIC PANEL W/ CALCIUM TOTAL (04/16/2023 3:23 PM BEHAVIORAL HEALTH CLINICIAN) SODIUM 137 136 - 145 mmol/L 04/16/2023 5:06 PM [facility] POTASSIUM 3.5 3.5 - 5.1 mmol/L 04/16/2023 5:06 PM BEHAVIORAL HEALTH CLINICIAN [facility] CHLORIDE 100 98 - 107 mmol/L 04/16/2023 5:06 PM BEHAVIORAL HEALTH CLINICIAN [facility] CO2, VENOUS 29 22 - 30 mmol/L 04/16/2023 5:06 PM BEHAVIORAL HEALTH CLINICIAN [facility] ANION GAP 11.5 <18.0 mmol/L 04/16/2023 5:06 PM [facility] GLUCOSE 92 70 - 99 mg/dL 04/16/2023 5:06 PM [facility] BUN 7(L) 8 - 26 mg/dL 04/16/2023 5:06 PM [facility] CREATININE, BLOOD 1.00 0.70 - 1.30 mg/dL 04/16/2023 5:06 PM [facility] BUN/CREATININE RATIO 7(L) 12 - 20 ratio 04/16/2023 5:06 PM [facility] CALCIUM 9.1 8.7 - 10.5 mg/dL 04/16/2023 5:06 PM [facility] IS THE PATIENT REQUIRED TO BE FASTING? No 04/16/2023 5:06 PM BEHAVIORAL HEALTH CLINICIAN [facility] GFR, ESTIMATED >60 >=60 04/16/2023 5:06 PM [facility] Comment: Creatinine Clearance is the preferred criteria for selecting drug dose adjustments in renally impaired patients. The GFR is provided as additional pertinent clinical information. GFR is reported in mL/min/1.73 sq m. Calculation based on the Chronic Kidney Disease Epidemiology Collaboration (CKD- EPI) equation refit without adjustment for race. GFR, EST. >60 >=60 024 5:06 PM [facility] GFR, EST. NONAFRICAN >60 >=60 04/16/2023 5:06 PM [facility] Blood Venipuncture / Unknown 04/16/2023 3:23 PM BEHAVIORAL HEALTH CLINICIAN 04/16/2023 4:25 PM BEHAVIORAL HEALTH CLINICIAN us Tavo Polo MD PhD CHEMISTRY ORDERABLES Final Result [facility] #1 [place] [address] documented in this encounter Visit Diagnoses Diagnosis Abnormal echocardiogram- Primary Nonspecific (abnormal) findings on radiological and other examination of other intrathoracic organs Preprocedural cardiovascular examination Pre-operative cardiovascular examination documented in this encounter Care Teams Maintenance Clerk Relationship Specialty Start Date End Date Kevin Meyer PAC [address] [place] [address] PCP - General Physician Medical Scientific Liaison 07/15/17 Amy Allen APRN, HUMAN RESOURCE PROFESSIONAL #2 [facility] [address] [place] [address] Nurse Practitioner Cardiology 01/27/23 Merlene Pastor III, MD #2 [place] [address] Consulting Physician Urology 10/28/21 Brad Bone MD #2 [place] [address] Consulting Physician Neurology 09/04/22 Vanda Jimenez APRN, HUMAN RESOURCE PROFESSIONAL #2 [place] [address] Nurse Practitioner Advanced Practice Nurse 07/31/22 Min Mario MD #[address] [address] Consulting Physician Urology 12/17/23 documented as of this encounter
--- OUTSIDE RECORDS SUMMARY | 2024-07-04 11:41 | XMS_ITS | Encounter Summary ---
Author Organization [facility] Address [address] [facility] [place] [place] [address] Phone Care Team Providers Care Helper Marble Finisher Name Role Phone Kevin Meyer Primary Care Provider [phone] Amy Allen APRN, MANAGER ELIGIBILITY Unavailable + [phone] Dawit MARISCAL MD, Courtney Unavailable [phone] Brad Bone MD Unavailable [phone] Vanda Jimenez APRN, MANAGER ELIGIBILITY Unavailable Min Mario MD Unavailable Reason for Visit * Reason Comments Medication Refill Encounter Details Date Type Department Care Team (Late st Contact Info) Description 06/22/2024 Refill [facility] #2 [place] [address] Vanda Jimenez APRN, MANAGER ELIGIBILITY #2 [place] [address] Medication Refill Social History Tobacco Use Types [...] PM CDT Medication refilled and signed [facility] medication standing order for pediatric and adult patients. documented in this encounter Plan of Treatment Upcoming Encounters Date Type Department Care Team (Late st Contact Info) Description 07/15/2024 9:30 AM CDT Appointment [facility] [address] [place] [address] Min Mario MD #2 [facility] [address] [place] [address] Discharge Disposition: Discharged to home or Selfcare 07/21/2024 9:30 AM CDT Procedure Visit [facility] GROUP UROLOGY #2 [place] [address] Min Mario MD #2 [facility] [address] [place] [address] documented as of this encounter Visit Diagnoses Not on filedocumented in this encounter Care Teams Helper Marble Finisher Relationship Specialty Start Date End Date Kevin Meyer PAC [address] [place] [address] PCP - General Physician Equipment Hire Manager 07/15/17 Amy Allen APRN, MANAGER ELIGIBILITY #2 [facility] [address] [place] [address] Nurse Practitioner Cardiology 01/27/23 Merlene Pastor III, MD #2 [place] [address] Consulting Physician Urology 10/28/21 Brad Bone MD #2 [place] [address] Consulting Physician Neurology 09/04/22 Vanda Jimenez APRN, MANAGER ELIGIBILITY #2 [place] [address] Nurse Practitioner Advanced Practice Nurse 07/31/22 Min Mario MD #[address] [address] Consulting Physician Urology 12/17/23 documented as of this encounter
--- OUTSIDE RECORDS SUMMARY | 2024-07-04 11:42 | XMS_ITS | Clinical Summary ---
Author Organization [facility] Address [facility] [place] [address] Care Team Providers Care Sole Leveler Machine Name Role Phone Kevin Meyer Primary Care Provider [phone] Allergies Active Allergy Reactions Criticality Noted Date [...] Description 06/30/2024 1:40 PM CDT [facility] [address], [address] [place] [address] Mando Rojas MD Follow Up 06/30/2024 12:58 PM CDT - 06/30/2024 11:59 PM CDT Hospital Encounter [facility] [place] [address] Mando Rojas MD Discharge Disposition: Home or Self Care (Routine Discharge) 06/30/2024 Travel 05/19/2024 10:51 AM COMMERCIAL PILOT - 05/19/2024 11:59 PM COMMERCIAL PILOT Hospital Encounter [facility] [address] [place] [address] Manod Rojas MD Discharge Disposition: Home or Self Care (Routine Discharge) 05/19/2024 [facility]phone [facility] [address] [facility], [address] [place] [address] Mando Rojas MD FYI 05/19/2024 Travel 05/18/2024 Orders Only [facility] [address] [facility], [address] [place] [address] Jennifer Huang APRN 05/18/2024 Telephone [facility] [address] [facility], [address] [place] [address] Mando Rojas MD Question from Last 3 [...] from your doctor or pharmacy? Never 08/10/2023 [facility] Utilities Answer Date Recorded In the past [...] and heating? Not hard at all 08/10/2023 [facility] [place] of Occupat ional Health - Occupational Stress [...] any time in the past 12 m [facility], were you homeless or living in a fci (including now)? No 08/10/2023 Sex and Gender [...] Description 08/03/2024 10:00 AM CDT Hospital Encounter [facility] [place]ventional [place] [address] [phone] Daniela Henderson MD [address] [address] 08/03/2024 10:00 AM CDT - 08/03/2024 10:20 AM CDT Surgery [facility] [place] [address] [phone] Daniela Henderson MD [address] [address] INJECTION TRIGGER POINT - LEFT HARDWARE BLOCKS L5-S1 09/01/2024 2:20 PM CDT Office Visit [facility] Medical Group Multispecialty Care - [address], [address] [place] [address] Manod Rojas MD 3 [place] [address] Scheduled Procedures Name Priority Associated Diagnoses Date/Ti me INJECTION TRIGGER POINT Z98.1 (ICD-10-CM) - S/P lumbar spinal fusion T85.848D (ICD-10-CM) - Pain from implanted hardware, subsequent encounter 08/03/2024 10:00 AM CDT Health Maintenance Due Date Last Done Comments Colorectal Cancer Screening Colonoscopy (10 Years) 1966 Annual Physical 1969 Hepatitis B Vaccines (1 of 3 - 19+ 3-dose series) 1985 Pneumococcal Vaccine: 50+ Years (2 of 2 - PCV) 2016 03/08/2015 COVID-19 Vaccine ( - 2023-2 5 season) 2023 PHQ-2 (Physician [place]) 03/23/2024 DTaP, Tdap and Td Vaccines ( 3 - Td or Tdap) 05/12/2032 05/12/2022, 04/29/2013 Zoster Vaccines Completed 10/30/2020, 08/28/2020, 08/28/2020 Hepatitis [...] Dietrich, RN Medical Devices Implanted Type Area Claim Clinician Device Identifier Shelf Expiration Date Model / Serial / Lot Putty Noemy Matrix Dbm/Dbf Bone 3ml - [id number] Implanted:Qty : 1 on 08/10/2023 by Mando Rojas MD at [facility] Bone N/A: Spine Lumbar [employer] [id number] 06/09/2025 [id number] / [id number] / . Putty [place] Matrix Dbm/Dbf Bone [facility] - [id number] Implanted:Qty : 1 on 08/10/2023 by Mando Rojas MD at [facility] Bone N/A: Spine Lumbar [employer] [id number] 06/18/2025 [id number] / [id number] / . Medtronic Anteralign Spinal System Ls Spacer Implanted:Qty : 1 on 08/10/2023 by Mando Rojas MD at [facility] Cage N/A: Spine Lumbar [employer] [id number] 08/02/2029 [id number] / / [id number] Description:L5-S1 37 Mm Plate Implanted:Qty : 1 on 08/10/2023 by Mando Rojas MD at [facility] Plate N/A: Spine Lumbar [employer] . [id number] / / . 4.75 X 30 Mm Rods Implanted:Qty : 2 on 08/10/2023 by Mando Rojas MD at [facility] Andres N/A: Spine Lumbar [employer] . [id number] / / . 7.5 X 40 Mm Screws Implanted:Qty : 4 on 08/10/2023 by Mando Rojas MD at [facility] Screw N/A: Spine Lumbar [employer] . [id number] / / . 6.5 X 30 Mm Screw Implanted:Qty : 4 on 08/10/2023 by Mando Rojas MD at [facility] Screw N/A: Spine Lumbar [employer] . [id number] / / . Graft Soft Tissue 4x4cm [facility] Allograft - [id number] Implanted:Qty : 1 on 08/10/2023 by Mando Rojas MD at [facility] Tissue N/A: Spine Lumbar [employer] 01/20/2028 [id number] / [id number] / Voyager Set Screws Implanted:Qty : 4 on 08/10/2023 by Mando Rojas MD at [facility] N/A: Spine Lumbar [employer] . [id number] / / . Procedures Procedure Name Priority Date/Time Associated Diagnosis Comments XR LUMB SPINE AP+LAT ONLY Routine 06/30/2024 1:15 PM CDT S/P lumbar spinal fusion XR LUMB SPINE AP+LAT ONLY Routine 05/19/2024 11:04 AM COMMERCIAL PILOT S/P lumbar spinal fusion Fall from Last [...] 1:26 PM Narrative 06/30/2024 1:27 PM CDT [place] [facility] 1 [place], [place] [address] 2 VIEWS OF THE LUMBAR SPINE Clinical History: Postop fusion Comparison: May 19, 2024 2 views of the lumbar spine demonstrate posterior and anterior interbody fusion of the L5-S1 level. Overall, the hardware is unchanged from previous. There is no evidence of component failure. Normal alignment is evident throughout. The spinous processes are normally aligned. Procedure Note Yuriy Childs MD - 06/30/2024 [facility] [address] [place], [place] [address] 2 VIEWS OF THE LUMBAR SPINE Clinical [...] t from Last 3 Months Insurance MEDICAID 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
--- OUTSIDE RECORDS SUMMARY | 2024-07-04 11:42 | XMS_ITS | Referral Summary ---
Author Organization [facility], formerly [facility] Address [address] [place] [address] Care Team Providers Care Skydiving Instructor Name Role Phone Kevin Meyer Primary Care Provider [phone] Kevin Meyer Unavailable [phone] Benja Esteban MD Unavailable [phone] Encounters Date Type Department Care Team Description 04/06/2024 9:25 AM LAMINATED P[employer]ICS ASSEMBLER AND [employer]UER Office Visit [address] [place] [address] EyersKatherine NP Gallstones (Primary Dx) [...] 1 tablet (75 mcg total) by mouth scene painter before breakfast Active venlafaxine XR (EFFEXOR-XR) 150 [...] (12/17/2020): Added automatically from request for surgery [id number] 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/13/2020 Overview (12/13/2020): Added automatically from request for surgery [id number] 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 Stimulant use disorder 05/31/2020 Severe alcohol use disorder 05/31/2020 PTSD (post-traumatic stress disorder) 05/31/2020 Chronic bilateral low back pain without sciatica 04/07/2020 Assessment & Plan (05/04/2020 12:54 PM LAMINATED PLASTICS ASSEMBLER AND GLUER): - flexeril 10mg TID PRN - [place] 10mg q4 PRN - lidocaine patch daily - avoid IV ketorelac and NSAIDs with starting lithium - heating packs Assessment & Plan (05/03/2020 9:56 AM LAMINATED PLASTICS ASSEMBLER AND GLUER): - flexeril 10mg TID PRN - [place] 10mg q4 PRN - lidocaine patch daily - avoid IV ketorelac and NSAIDs with starting lithium - heating packs Assessment & Plan (05/02/2020 11:56 AM LAMINATED PLASTICS ASSEMBLER AND GLUER): - flexeril 10mg TID PRN - [place] 10mg q4 PRN - lidocaine patch daily - avoid IV ketorelac and NSAIDs with starting lithium - heating packs Assessment & Plan (05/01/2020 10:58 AM LAMINATED PLASTICS ASSEMBLER AND GLUER): - flexeril 10mg TID PRN - NORCO 10mg q4 PRN - lidocaine patch daily - avoid IV ketorelac and NSAIDs with starting lithium - heating pads Assessment & Plan (04/30/2020 12:17 PM LAMINATED PLASTICS ASSEMBLER AND GLUER): - flexeril 10mg TID PRN - NORCO 10mg q4 PRN - lidocaine patch daily - avoid IV ketorelac and NSAIDs with starting lithium - heating pads Assessment & Plan (04/28/2020 8:01 AM LAMINATED PLASTICS ASSEMBLER AND GLUER): - flexeril 10mg TID PRN - NORCO 10mg q4 PRN - lidocaine patch daily - avoid IV ketorelac and NSAIDs with starting lithium - heating pads Assessment & Plan (04/27/2020 8:47 AM LAMINATED PLASTICS ASSEMBLER AND GLUER): - flexeril 10mg TID PRN - NORCO 10mg q4 PRN - lidocaine patch daily - avoid IV ketorelac and NSAIDs given ADILENE - heating pads Assessment & Plan (04/26/2020 10:11 AM LAMINATED PLASTICS ASSEMBLER AND GLUER): - flexeril 10mg TID PRN - NORCO 10mg q4 PRN - lidocaine patch daily - avoid IV ketorelac and NSAIDs given ADILENE - heating pads Assessment & Plan (04/25/2020 9:45 AM LAMINATED PLASTICS ASSEMBLER AND GLUER): - flexeril 10mg TID PRN - NORCO 10mg q4 PRN - lidocaine patch daily - avoid IV ketorelac and NSAIDs given ADILENE - heating pads Assessment & Plan (04/24/2020 9:49 AM LAMINATED PLASTICS ASSEMBLER AND GLUER): - flexeril 10mg TID PRN - NORCO 10mg q4 PRN - lidocaine patch daily - avoid IV ketorelac and NSAIDs given ADILENE - heating pads Assessment & Plan (04/23/2020 10:21 AM LAMINATED PLASTICS ASSEMBLER AND GLUER): - flexeril 10mg TID PRN - NORCO 10mg q4 PRN - lidocaine patch daily - avoid IV ketorelac and NSAIDs given ADILENE - heating pads Assessment & Plan (04/21/2020 8:38 AM LAMINATED PLASTICS ASSEMBLER AND GLUER): - flexeril 10mg TID PRN - NORCO 10mg q4 PRN - lidocaine patch daily - avoid IV ketorelac and NSAIDs given ADILENE - heating pads Assessment & Plan (04/20/2020 12:05 PM LAMINATED PLASTICS ASSEMBLER AND GLUER): - flexeril 10mg TID PRN - NORCO 10mg q4 PRN - lidocaine patch daily - avoid IV ketorelac and NSAIDs given ADILENE - heating pads Assessment & Plan (04/19/2020 9:46 AM LAMINATED PLASTICS ASSEMBLER AND GLUER): - flexeril 10mg TID PRN - NORCO 10mg q4 PRN - lidocaine patch daily - avoid IV ketorelac and NSAIDs given ADILENE - heating pads Assessment & Plan (04/18/2020 10:09 AM LAMINATED PLASTICS ASSEMBLER AND GLUER): - flexeril 10mg TID PRN - NORCO 10mg q4 PRN - lidocaine patch daily - avoid IV ketorelac and NSAIDs given ADILENE - heating pads Assessment & Plan (04/17/2020 9:31 AM LAMINATED PLASTICS ASSEMBLER AND GLUER): - flexeril 10mg TID PRN - NORCO 10mg q4 PRN - lidocaine patch daily - avoid IV ketorelac and NSAIDs given ADILENE - heating pads Assessment & Plan (04/16/2020 11:51 AM LAMINATED PLASTICS ASSEMBLER AND GLUER): - flexeril 10mg TID PRN - NORCO 10mg q4 PRN - lidocaine patch daily - avoid IV ketorelac and NSAIDs given ADILENE - heating pads Assessment & Plan (04/14/2020 9:57 AM LAMINATED PLASTICS ASSEMBLER AND GLUER): - flexeril 10mg TID PRN - NORCO 10mg q4 PRN - lidocaine patch daily - avoid IV ketorelac and NSAIDs given ADILENE - heating pads Assessment & Plan (04/10/2020 10:04 PM LAMINATED PLASTICS ASSEMBLER AND GLUER): - flexeril 10mg TID PRN - NORCO 10mg q4 PRN - lidocaine patch daily - avoid IV ketorelac and NSAIDs given ADILENE - heating pads Assessment & Plan (04/08/2020 3:23 PM LAMINATED PLASTICS ASSEMBLER AND GLUER): Patient endorsing exacerbation of chronic back pain [...] -PT Assessment & Plan (04/07/2020 6:23 AM LAMINATED PLASTICS ASSEMBLER AND GLUER): Patient endorsing exacerbation of chronic back pain and left ankle pain (had previous traumatic injury, required surgery). No other red flag symptoms/signs. Reports he has received injections in the past -Continue PRN norco, flexeril -Lidocaine patch to back -PT Depressive disorder 04/03/2020 Assessment & Plan (05/04/2020 12:54 PM LAMINATED PLASTICS ASSEMBLER AND GLUER): 54yo M with reported history of bipolar [...] more bright. Plan to discharge patient 05/04. Picacho augmentation started with moderate improvements seen in depressive symptoms with ECT, titrated to 300 mg BID with level 0.6. - Continue OLANZapine, 20 mg, oral, Nightly, for depression - Continue Venlafaxine XR 150 mg PO daily, for depression - Continue lithium to 300 mg BID - Picacho level 0.6 on 05/03 - This is [...] 05/04 Assessment & Plan (05/03/2020 9:56 AM LAMINATED PLASTICS ASSEMBLER AND GLUER): 54yo M with reported history of bipolar [...] more bright. Plan to discharge patient 05/04. Picacho augmentation started with moderate improvements seen in depressive symptoms with ECT, titrated to 300 mg BID with level 0.6. - Continue OLANZapine, 20 mg, oral, Nightly, for depression - Continue Venlafaxine XR 150 mg PO daily, for depression - Continue lithium to 300 mg BID - [place] level 0.6 on 05/03 - This is [...] permission) Assessment & Plan (05/02/2020 11:56 AM LAMINATED PLASTICS ASSEMBLER AND GLUER): 54yo M with reported history of bipolar [...] permission) Assessment & Plan (05/01/2020 10:58 AM LAMINATED PLASTICS ASSEMBLER AND GLUER): 54yo M with reported history of bipolar [...] family Assessment & Plan (04/30/2020 12:17 PM LAMINATED PLASTICS ASSEMBLER AND GLUER): 54yo M with reported history of bipolar [...] family Assessment & Plan (04/28/2020 8:02 AM LAMINATED PLASTICS ASSEMBLER AND GLUER): 54yo M with reported history of bipolar [...] depression Assessment & Plan (04/27/2020 8:47 AM LAMINATED PLASTICS ASSEMBLER AND GLUER): 54yo M with reported history of bipolar [...] depression Assessment & Plan (04/26/2020 10:11 AM LAMINATED PLASTICS ASSEMBLER AND GLUER): 54yo M with reported history of bipolar [...] depression Assessment & Plan (04/25/2020 9:47 AM LAMINATED PLASTICS ASSEMBLER AND GLUER): 54yo M with reported history of bipolar [...] depression Assessment & Plan (04/24/2020 9:48 AM LAMINATED PLASTICS ASSEMBLER AND GLUER): 54yo M with reported history of bipolar [...] depression Assessment & Plan (04/23/2020 10:21 AM LAMINATED PLASTICS ASSEMBLER AND GLUER): 54yo M with reported history of bipolar [...] depression Assessment & Plan (04/21/2020 8:36 AM LAMINATED PLASTICS ASSEMBLER AND GLUER): 54yo M with reported history of bipolar [...] depression Assessment & Plan (04/20/2020 12:05 PM LAMINATED PLASTICS ASSEMBLER AND GLUER): 54yo M with reported history of bipolar [...] depression Assessment & Plan (04/19/2020 9:48 AM LAMINATED PLASTICS ASSEMBLER AND GLUER): 54yo M with reported history of bipolar [...] depression Assessment & Plan (04/18/2020 10:08 AM LAMINATED PLASTICS ASSEMBLER AND GLUER): 54yo M with reported history of bipolar [...] depression Assessment & Plan (04/17/2020 9:32 AM LAMINATED PLASTICS ASSEMBLER AND GLUER): 54yo M with reported history of bipolar [...] depression Assessment & Plan (04/16/2020 11:49 AM LAMINATED PLASTICS ASSEMBLER AND GLUER): 54yo M with reported history of bipolar [...] depression Assessment & Plan (04/14/2020 9:56 AM LAMINATED PLASTICS ASSEMBLER AND GLUER): 54yo M with reported history of bipolar [...] depression Assessment & Plan (04/13/2020 9:46 AM LAMINATED PLASTICS ASSEMBLER AND GLUER): 54yo M with reported history of bipolar [...] for ECT by cardiology, no diagnosis of ischemia/AL, no focal wall movement abnormalities on echo, [...] procedure Assessment & Plan (04/10/2020 3:25 PM LAMINATED PLASTICS ASSEMBLER AND GLUER): Presented to ED 04/02 with suicidal ideation, depression. Initially admitted to psychiatry for medication adjustment, received ECT x1 04/06 -Continue current meds: lexapro 5, effexor 112.5, olanzapine 20mg QHS - If COVID test is negative, transfer to Psychiatry floor. Assessment & Plan (04/08/2020 3:24 PM LAMINATED PLASTICS ASSEMBLER AND GLUER): Presented to ED 04/02 with suicidal ideation, depression. Initially admitted to psychiatry for medication adjustment, received ECT x1 04/06 -Psych consulted upon transfer to medicine but are following only peripherally over the weekend -Continue current meds: lexapro 5, effexor 112.5, olanzapine 20mg QHS -Psychiatry recommending discontinuing suicide precautions with 1:1 sitter Assessment & Plan (04/07/2020 6:14 AM LAMINATED PLASTICS ASSEMBLER AND GLUER): Presented to ED 04/02 with suicidal ideation, depression. Initially admitted to psychiatry for medication adjustment, received ECT x1 04/06 -Psych c/s upon transfer -Continue current meds: lexapro 5, effexor 112.5, olanzapine 20mg QHS -Suicide precautions, 1:1 sitter Assessment & Plan (04/12/2020 9:11 AM LAMINATED PLASTICS ASSEMBLER AND GLUER): 54yo M with reported history of bipolar [...] for ECT by cardiology, no diagnosis of ischemia/AL, no focal wall movement abnormalities on echo, [...] midnight Assessment & Plan (04/03/2020 2:04 PM LAMINATED PLASTICS ASSEMBLER AND GLUER): 54yo M with reported history of bipolar [...] interested in ECT, will facilitate transfer to [facility] to facilitate ECT consult Uptitrate SSRI and otherwise continue home depakote and zyprexa (pt reports taking these medications daily for past several yrs) PRNs agitation and comfort Milieu, supportive, and group therapy Apprec SW intervention Obtain collateral Full code Dispo: home with GERD (gastroesophageal reflux disease) Assessment & Plan (05/04/2020 12:54 PM LAMINATED PLASTICS ASSEMBLER AND GLUER): Patient has a long history of GERD. - Protonix 40 mg daily Assessment & Plan (05/03/2020 9:56 AM LAMINATED PLASTICS ASSEMBLER AND GLUER): Patient has a long history of GERD. - Protonix 40 mg daily Assessment & Plan (05/02/2020 11:57 AM LAMINATED PLASTICS ASSEMBLER AND GLUER): Patient has a long history of GERD. - Protonix 40 mg daily Assessment & Plan (05/01/2020 10:58 AM LAMINATED PLASTICS ASSEMBLER AND GLUER): Patient has a long history of GERD. - Protonix 40 mg daily Assessment & Plan (04/30/2020 12:17 PM LAMINATED PLASTICS ASSEMBLER AND GLUER): Patient has a long history of GERD. - Protonix 40 mg daily Assessment & Plan (04/28/2020 8:00 AM LAMINATED PLASTICS ASSEMBLER AND GLUER): Patient has a long history of GERD. -Protonix 40 mg daily Assessment & Plan (04/27/2020 8:47 AM LAMINATED PLASTICS ASSEMBLER AND GLUER): Patient has a long history of GERD. -Protonix 40 mg daily Assessment & Plan (04/26/2020 10:11 AM LAMINATED PLASTICS ASSEMBLER AND GLUER): Patient has a long history of GERD. -Protonix 40 mg daily Assessment & Plan (04/25/2020 9:45 AM LAMINATED PLASTICS ASSEMBLER AND GLUER): Patient has a long history of GERD. -Protonix 40 mg daily Assessment & Plan (04/24/2020 9:48 AM LAMINATED PLASTICS ASSEMBLER AND GLUER): Patient has a long history of GERD. -Protonix 40 mg daily Assessment & Plan (04/23/2020 10:21 AM LAMINATED PLASTICS ASSEMBLER AND GLUER): Patient has a long history of GERD. -Protonix 40 mg daily Assessment & Plan (04/21/2020 8:37 AM LAMINATED PLASTICS ASSEMBLER AND GLUER): Patient has a long history of GERD. -Protonix 40 mg daily Assessment & Plan (04/20/2020 12:05 PM LAMINATED PLASTICS ASSEMBLER AND GLUER): Patient has a long history of GERD. -Protonix 40 mg daily Assessment & Plan (04/19/2020 9:46 AM LAMINATED PLASTICS ASSEMBLER AND GLUER): Patient has a long history of GERD. -Protonix 40 mg daily Assessment & Plan (04/18/2020 10:09 AM LAMINATED PLASTICS ASSEMBLER AND GLUER): Patient has a long history of GERD. -Protonix 40 mg daily Assessment & Plan (04/17/2020 9:31 AM LAMINATED PLASTICS ASSEMBLER AND GLUER): Patient has a long history of GERD. -Protonix 40 mg daily Assessment & Plan (04/16/2020 11:51 AM LAMINATED PLASTICS ASSEMBLER AND GLUER): Patient has a long history of GERD. -Protonix 40 mg daily Assessment & Plan (04/14/2020 9:56 AM LAMINATED PLASTICS ASSEMBLER AND GLUER): Patient has a long history of GERD. -Protonix 40 mg daily Assessment & Plan (04/10/2020 3:25 PM LAMINATED PLASTICS ASSEMBLER AND GLUER): Continue pantoprazole Assessment & Plan (04/08/2020 3:17 PM LAMINATED PLASTICS ASSEMBLER AND GLUER): Continue pantoprazole Assessment & Plan (04/07/2020 6:15 AM LAMINATED PLASTICS ASSEMBLER AND GLUER): Continue pantoprazole Assessment & Plan (04/03/2020 5:54 PM LAMINATED PLASTICS ASSEMBLER AND GLUER): Patient has a long history of GERD. -Protonix 40 mg daily Hypothyroidism 04/03/2020 Assessment & Plan (05/04/2020 12:54 PM LAMINATED PLASTICS ASSEMBLER AND GLUER): Patient carries a diagnosis of hypothyroidism for several years. He is currently treated on levothyroxine 75 mcg daily. - Repeat TFT tests in 6 weeks - continue levothyroxine 75 mcg daily Assessment & Plan (05/03/2020 9:56 AM LAMINATED PLASTICS ASSEMBLER AND GLUER): Patient carries a diagnosis of hypothyroidism for several years. He is currently treated on levothyroxine 75 mcg daily. - Repeat TFT tests in 6 weeks - continue levothyroxine 75 mcg daily Assessment & Plan (05/02/2020 11:57 AM LAMINATED PLASTICS ASSEMBLER AND GLUER): Patient carries a diagnosis of hyperthyroidism for several years. He is currently treated on levothyroxine 75 mcg daily. - Repeat TFT tests in 6 weeks - continue levothyroxine 75 mcg daily Assessment & Plan (05/01/2020 10:58 AM LAMINATED PLASTICS ASSEMBLER AND GLUER): Patient carries a diagnosis of hyperthyroidism for several years. He is currently treated on levothyroxine 75 mcg daily. - Repeat TFT tests in 6 weeks - continue levothyroxine 75 mcg daily Assessment & Plan (04/30/2020 12:17 PM LAMINATED PLASTICS ASSEMBLER AND GLUER): Patient carries a diagnosis of hyperthyroidism for several years. He is currently treated on levothyroxine 75 mcg daily. - Repeat TFT tests in 6 weeks - continue levothyroxine 75 mcg daily Assessment & Plan (04/28/2020 8:00 AM LAMINATED PLASTICS ASSEMBLER AND GLUER): Patient carries a diagnosis of hyperthyroidism for several years. He is currently treated on levothyroxine 75 mcg daily. - Repeat TFT tests in 6 weeks - continue levothyroxine 75 mcg daily Assessment & Plan (04/27/2020 8:47 AM LAMINATED PLASTICS ASSEMBLER AND GLUER): Patient carries a diagnosis of hyperthyroidism for several years. He is currently treated on levothyroxine 75 mcg daily. - Repeat TFT tests in 6 weeks - continue levothyroxine 75 mcg daily Assessment & Plan (04/26/2020 10:11 AM LAMINATED PLASTICS ASSEMBLER AND GLUER): Patient carries a diagnosis of hyperthyroidism for several years. He is currently treated on levothyroxine 75 mcg daily. - Repeat TFT tests in 6 weeks - continue levothyroxine 75 mcg daily Assessment & Plan (04/25/2020 9:45 AM LAMINATED PLASTICS ASSEMBLER AND GLUER): Patient carries a diagnosis of hyperthyroidism for several years. He is currently treated on levothyroxine 75 mcg daily. - Repeat TFT tests in 6 weeks - continue levothyroxine 75 mcg daily Assessment & Plan (04/24/2020 9:48 AM LAMINATED PLASTICS ASSEMBLER AND GLUER): Patient carries a diagnosis of hyperthyroidism for several years. He is currently treated on levothyroxine 75 mcg daily. - Repeat TFT tests in 6 weeks - continue levothyroxine 75 mcg daily Assessment & Plan (04/23/2020 10:21 AM LAMINATED PLASTICS ASSEMBLER AND GLUER): Patient carries a diagnosis of hyperthyroidism for several years. He is currently treated on levothyroxine 75 mcg daily. - Repeat TFT tests in 6 weeks - continue levothyroxine 75 mcg daily Assessment & Plan (04/21/2020 8:37 AM LAMINATED PLASTICS ASSEMBLER AND GLUER): Patient carries a diagnosis of hyperthyroidism for several years. He is currently treated on levothyroxine 75 mcg daily. - Repeat TFT tests in 6 weeks - continue levothyroxine 75 mcg daily Assessment & Plan (04/20/2020 12:05 PM LAMINATED PLASTICS ASSEMBLER AND GLUER): Patient carries a diagnosis of hyperthyroidism for several years. He is currently treated on levothyroxine 75 mcg daily. - Repeat TFT tests in 6 weeks - continue levothyroxine 75 mcg daily Assessment & Plan (04/19/2020 9:46 AM LAMINATED PLASTICS ASSEMBLER AND GLUER): Patient carries a diagnosis of hyperthyroidism for several years. He is currently treated on levothyroxine 75 mcg daily. - Repeat TFT tests in 6 weeks - continue levothyroxine 75 mcg daily Assessment & Plan (04/18/2020 10:09 AM LAMINATED PLASTICS ASSEMBLER AND GLUER): Patient carries a diagnosis of hyperthyroidism for several years. He is currently treated on levothyroxine 75 mcg daily. - Repeat TFT tests in 6 weeks - continue levothyroxine 75 mcg daily Assessment & Plan (04/17/2020 9:31 AM LAMINATED PLASTICS ASSEMBLER AND GLUER): Patient carries a diagnosis of hyperthyroidism for several years. He is currently treated on levothyroxine 75 mcg daily. - Repeat TFT tests in 6 weeks - continue levothyroxine 75 mcg daily Assessment & Plan (04/16/2020 11:51 AM LAMINATED PLASTICS ASSEMBLER AND GLUER): Patient carries a diagnosis of hyperthyroidism for several years. He is currently treated on levothyroxine 75 mcg daily. - Repeat TFT tests in 6 weeks - continue levothyroxine 75 mcg daily Assessment & Plan (04/14/2020 9:57 AM LAMINATED PLASTICS ASSEMBLER AND GLUER): Patient carries a diagnosis of hyperthyroidism for several years. He is currently treated on levothyroxine 75 mcg daily. - Repeat TFT tests in 6 weeks - continue levothyroxine 75 mcg daily Assessment & Plan (04/10/2020 3:25 PM LAMINATED PLASTICS ASSEMBLER AND GLUER): 04/02: TSH 6.49, T4 WNL at 1.38 Continue synthroid 75mcg; repeat TFTs 6-8 weeks Assessment & Plan (04/08/2020 3:17 PM LAMINATED PLASTICS ASSEMBLER AND GLUER): 04/02: TSH 6.49, T4 WNL at 1.38 Continue synthroid 75mcg; repeat TFTs 6-8 weeks Assessment & Plan (04/07/2020 6:16 AM LAMINATED PLASTICS ASSEMBLER AND GLUER): 04/02: TSH 6.49, T4 WNL at 1.38 Continue synthroid 75mcg; repeat TFTs 6-8 weeks Assessment & Plan (04/10/2020 9:35 PM LAMINATED PLASTICS ASSEMBLER AND GLUER): Patient carries a diagnosis of hyperthyroidism for several years. He is currently treated on levothyroxine 75 mcg daily. - Repeat TFT tests in 6 weeks - continue levothyroxine 75 mcg daily Hyperlipemia 04/03/2020 Assessment & Plan (05/04/2020 12:55 PM LAMINATED PLASTICS ASSEMBLER AND GLUER): Has a stated history of hyperlipidemia has been stably treated with atorvastatin 40 mg daily for many years. Patient's LDL low on lipid panel. Notable elevated triglycerides but not fasting sample. - atorvastatin 40 mg daily - fenofibrate 145mg daily Assessment & Plan (05/03/2020 9:56 AM LAMINATED PLASTICS ASSEMBLER AND GLUER): Has a stated history of hyperlipidemia has been stably treated with atorvastatin 40 mg daily for many years. Patient's LDL low on lipid panel. Notable elevated triglycerides but not fasting sample. - atorvastatin 40 mg daily - fenofibrate 145mg daily Assessment & Plan (05/02/2020 11:57 AM LAMINATED PLASTICS ASSEMBLER AND GLUER): Has a stated history of hyperlipidemia has been stably treated with atorvastatin 40 mg daily for many years. Patient's LDL low on lipid panel. Notable elevated triglycerides but not fasting sample. - atorvastatin 40 mg daily - fenofibrate 145mg daily Assessment & Plan (05/01/2020 10:58 AM LAMINATED PLASTICS ASSEMBLER AND GLUER): Has a stated history of hyperlipidemia has been stably treated with atorvastatin 40 mg daily for many years. Patient's LDL low on lipid panel. Notable elevated triglycerides but not fasting sample. - atorvastatin 40 mg daily - tricor 145mg daily Assessment & Plan (04/30/2020 12:17 PM LAMINATED PLASTICS ASSEMBLER AND GLUER): Has a stated history of hyperlipidemia has been stably treated with atorvastatin 40 mg daily for many years. Patient's LDL low on lipid panel. Notable elevated triglycerides but not fasting sample. - atorvastatin 40 mg daily - tricor 145mg daily Assessment & Plan (04/28/2020 8:01 AM LAMINATED PLASTICS ASSEMBLER AND GLUER): Has a stated history of hyperlipidemia has been stably treated with atorvastatin 40 mg daily for many years. Patient's LDL low on lipid panel. Notable elevated triglycerides but not fasting sample. - atorvastatin 40 mg daily - tricor 145mg daily Assessment & Plan (04/27/2020 8:47 AM LAMINATED PLASTICS ASSEMBLER AND GLUER): Has a stated history of hyperlipidemia has been stably treated with atorvastatin 40 mg daily for many years. Patient's LDL low on lipid panel. Notable elevated triglycerides but not fasting sample. - atorvastatin 40 mg daily - tricor 145mg daily Assessment & Plan (04/26/2020 10:11 AM LAMINATED PLASTICS ASSEMBLER AND GLUER): Has a stated history of hyperlipidemia has been stably treated with atorvastatin 40 mg daily for many years. Patient's LDL low on lipid panel. Notable elevated triglycerides but not fasting sample. - atorvastatin 40 mg daily - tricor 145mg daily Assessment & Plan (04/25/2020 9:45 AM LAMINATED PLASTICS ASSEMBLER AND GLUER): Has a stated history of hyperlipidemia has [...] daily Assessment & Plan (04/24/2020 9:48 AM LAMINATED PLASTICS ASSEMBLER AND GLUER): Has a stated history of hyperlipidemia has [...] daily Assessment & Plan (04/23/2020 10:21 AM LAMINATED PLASTICS ASSEMBLER AND GLUER): Has a stated history of hyperlipidemia has [...] daily Assessment & Plan (04/21/2020 8:38 AM LAMINATED PLASTICS ASSEMBLER AND GLUER): Has a stated history of hyperlipidemia has [...] daily Assessment & Plan (04/20/2020 12:05 PM LAMINATED PLASTICS ASSEMBLER AND GLUER): Has a stated history of hyperlipidemia has [...] daily Assessment & Plan (04/19/2020 9:46 AM LAMINATED PLASTICS ASSEMBLER AND GLUER): Has a stated history of hyperlipidemia has [...] daily Assessment & Plan (04/18/2020 10:09 AM LAMINATED PLASTICS ASSEMBLER AND GLUER): Has a stated history of hyperlipidemia has [...] daily Assessment & Plan (04/17/2020 9:31 AM LAMINATED PLASTICS ASSEMBLER AND GLUER): Has a stated history of hyperlipidemia has [...] daily Assessment & Plan (04/16/2020 11:51 AM LAMINATED PLASTICS ASSEMBLER AND GLUER): Has a stated history of hyperlipidemia has [...] daily Assessment & Plan (04/14/2020 9:56 AM LAMINATED PLASTICS ASSEMBLER AND GLUER): Has a stated history of hyperlipidemia has [...] daily Assessment & Plan (04/13/2020 9:46 AM LAMINATED PLASTICS ASSEMBLER AND GLUER): Has a stated history of hyperlipidemia has [...] daily Assessment & Plan (04/10/2020 3:25 PM LAMINATED PLASTICS ASSEMBLER AND GLUER): Continue atorvastatin 40 Assessment & Plan (04/08/2020 3:17 PM LAMINATED PLASTICS ASSEMBLER AND GLUER): Continue atorvastatin 40 Assessment & Plan (04/07/2020 6:15 AM LAMINATED PLASTICS ASSEMBLER AND GLUER): Continue atorvastatin 40 Assessment & Plan (04/12/2020 9:03 AM LAMINATED PLASTICS ASSEMBLER AND GLUER): Has a stated history of hyperlipidemia has [...] (08/31/2018): Added automatically from request for surgery [id number] Assessment & Plan (09/06/2018 12:49 PM CDT): [...] 04/10/2020 Assessment & Plan (05/04/2020 12:55 PM LAMINATED P[employer] ASSEM[employer]ER AND GLUER): Cr 1.3 -> 1.22 resolving. Baseline <1. - encourage fluids - avoid nephrotoxic meds Assessment & Plan (05/03/2020 9:56 AM LAMINATED PLAST[employer] ASSEMBLER AND GLUER): Cr 1.3 -> 1.22 resolving. Baseline <1. - encourage fluids - avoid nephrotoxic meds Assessment & Plan (05/02/2020 11:57 AM LAMINATED PLASTICS ASSEMBLER AND GLUER): Cr 1.3 -> 1.22 resolving. Baseline <1. - encourage fluids - avoid nephrotoxic meds Assessment & Plan (05/01/2020 10:58 AM LAMINATED PLAST[employer] ASSEMBLER AND GLUER): Cr 1.3 -> 1.22 resolving. Baseline <1. - encourage fluids - avoid nephrotoxic meds Assessment & Plan (04/19/2020 9:46 AM LAMINATED P[employer] ASSEMBLER AND GLUER): Cr 1.3 -> 1.22 resolving. Baseline <1. - encourage fluids - avoid nephrotoxic meds Assessment & Plan (04/18/2020 10:09 AM LAMINATED PLAST[employer] ASSEMBLER AND GLUER): Cr 1.3 -> 1.22 resolving. Baseline <1. - encourage fluids - avoid nephrotoxic meds Assessment & Plan (04/16/2020 11:51 AM LAMINATED P[employer] ASSEMBLER AND GLUER): Cr 1.3 -> 1.22 resolving. Baseline <1. - encourage fluids - avoid nephrotoxic meds Assessment & Plan (04/14/2020 9:57 AM LAMINATED P[employer] ASSEM[employer]ER AND GLUER): Cr 1.3 -> 1.22 resolving. Baseline <1. - encourage fluids - avoid nephrotoxic meds Assessment & Plan (04/13/2020 9:47 AM LAMINATED P[employer] ASSEMBLER AND GLUER): Cr 1.3 -> 1.22 resolving. Baseline <1. - encourage fluids - avoid nephrotoxic meds Assessment & Plan (04/12/2020 9:04 AM LAMIN[employer] P[employer] ASSEM[employer]ER AND GLUER): Cr 1.3 -> 1.22 resolving. Baseline <1. - encourage fluids - avoid nephrotoxic meds Diarrhea 04/10/2020 04/20/2020 Assessment & Plan (05/04/2020 12:55 PM [employer]UER): Patient recently had constipation, was treated with BID miralax and senna- docusate. Was having diarrhea last week so scheduled bowel regimen discontinued. - discontinued daily senna-docusate - miralax PRN Assessment & Plan (05/03/2020 9:56 AM LAMIN[employer] P[employer] ASSEM[employer]ER [employer] GLUER): Patient recently had constipation, was treated with BID miralax and senna- docusate. Was having diarrhea last week so scheduled bowel regimen discontinued. - discontinued daily senna-docusate - miralax PRN Assessment & Plan (05/01/2020 10:59 AM LAMIN[employer] P[employer] ASSEMBLER AND GLUER): Patient recently had constipation, was treated with BID miralax and senna- docusate. Was having diarrhea last week so scheduled bowel regimen discontinued. - discontinued daily senna-docusate - miralax PRN Assessment & Plan (04/19/2020 9:47 AM LAMINATED P[employer] ASSEMBLER AND GLUER): Patient recently had constipation, was treated with BID miralax and senna- docusate. Was having diarrhea last week so scheduled bowel regimen discontinued. - discontinued daily senna-docusate - miralax PRN Assessment & Plan (04/16/2020 11:52 AM LAMINATED PLAST[employer] ASSEMBLER AND GLUER): Patient recently had constipation, was treated with BID miralax and senna- docusate. Was having diarrhea last week so scheduled bowel regimen discontinued. - discontinue daily senna-docusate - miralax PRN Assessment & Plan (04/14/2020 9:57 AM LAMIN[employer] P[employer] ASSEMBLER AND GLUER): Patient recently had constipation, was treated with BID miralax and senna- docusate. Endorsing nonbloody diarrhea for last 2 days. - discontinue daily senna-docusate - miralax PRN Assessment & Plan (04/10/2020 10:09 PM LAMINATED P[employer] ASSEMBLER [employer] GLUER): Patient recently had constipation, was treated with BID miralax and senna- docusate. Endorsing nonbloody diarrhea for last 2 days. - discontinue daily senna-docusate - miralax PRN Ventral hernia without obstr uction or gangrene 08/31/2018 04/20/2020 Overview (08/31/2018): Added automatically from request for surgery [id number] Assessment & Plan (09/06/2018 12:51 PM CDT): [...] often do you attend chur ch or methodist services? More than 4 times per year 02/01/2021 Do you belong to any clubs o r organizations such as baptist groups, unions, fraternal or athletic groups, or [...] Date Recorded PHQ-2 Total Score 4 04/03/2020 [facility] - [...] place to sleep or slept in a assisted (including now)? No 02/01/2021 Personal Safety Answer Date Recorded Have you ever been in or are you currently in a harmful physical or emotional relationship or is someone making you feel afraid or unsafe? Denies 03/11/2024 Sex and Gender Information Value Date Recorded Sex Assigned at Not on file Legal Sex Male 3:25 AM LAMINATED P[employer] AS[employer]ER AND GLUER Gender Identity Male 03/26/2021 11:53 AM [employer] P[employer] AS[employer]ER [employer] GLUER Sexual Orientation Choose not to disclose 2021 11:53 AM L[employer]IN[employer] P[employer] ASSEM[employer]ER [employer] GLUER Occupation Industry Job Start Date Job End Date disabled Not on file Not on file Not on file Last Filed Vital Signs Vital Sign Reading Time Taken Comments Blood Pressure 126/74 04/06/2024 9:02 AM L[employer]IN[employer] AS[employer]ER [employer]UER Pulse 68 04/06/2024 9:02 AM [employer] AS[employer]ER [employer] GLUER Temperature 36.2 C (97.1 F) 04/06/2024 9:02 AM L[employer] AS[employer]ER [employer] GLUER Respiratory Rate 16 03/11/2024 4:45 PM [employer]ER [employer] GLUER Oxygen Saturation 95% 04/06/2024 9:02 AM L[employer] P[employer] AS[employer]ER [employer] GLUER Inhaled Oxygen Concentration - - Weight 97.3 kg (214 lb 9.6 oz) 04/06/2024 9:02 A M [employer] Height 182.9 cm (6') 04/06/2024 9:02 AM [employer]UER Body Mass Index 29.1 04/06/2024 9:02 AM [employer]UER Plan of Treatment Not on file Medical Devices Implanted Type Area Community Service Officer Coordinator Device Identifier Shelf Expiration Date Model / Serial / Lot [employer]/C R Bard [id number] Ventralight St Sepra 4.5in Uncoated Monofilament Lightweight - [id number] Implanted:Qty: 1 on 09/09/2018 by Xavier Aviles MD at [facility] N/A: Abdomen [employer]/C R Bard 12/19/2019 [id number] / / [id number] [email or web address] [id number] Mini Ignite Power Mix Injectable Graft 4ml Synthetic Tissue - [id number] - [id number] Implanted:Qty: 1 on 01/29/2021 by Don Kevin MD at [facility] [email or web address] 07/08/2023 [id number] / [id number] / [employer] [id number] [employer] Unite 7mm 6.5mm 80mm 16mm Cannulated Color Coded Headless - [id number] Implanted:Qty: 1 on 01/29/2021 by Don Kevin MD at [facility] Left: Foot Medline [employer] [id number] / / [employer] [id number] Medline Unite 6.5mm 90mm 16mm Cannulated Color Coded Headless - [id number] Implanted:Qty: 1 on 01/29/2021 by Don Kevin MD at [facility] Left: Foot [employer] [id number] / / [employer] [id number] Screw Bone L50mm Od4.5mm Foot Ankle Cannulated Color Coded Osteotomy - [id number] Implanted:Qty: 1 on 01/29/2021 by Don Kevin MD at [facility] Left: Foot Media [employer] [id number] / / 20x20 Nitnol Staple Implanted:Qty: 1 on 01/29/2021 by Don Kevin MD at [facility] Left: Foot [employer] Description:[id number] Media [employer] [id number] Bit 3.3mm Drill Cannulated Ao Quick Connect Color Coded - [id number] Implanted:Qty: 1 on 01/29/2021 by Don Kevin MD at [facility] Left: Foot [employer] [id number] / / Procedures Procedure Name Priority Date/Time [...] data last revised 2018. Testing performed by: [facility], [address] [place] [address], [place]., [address] Blood specimen (specimen) 12/20/2019 2:31 PM CDT 12/20/2019 6:54 PM CDT us Raoul Best MD LAB BLOOD ORDERABLES Final Re sult YULY [facility] [place]) [facility] Department of Laboratories [place], [place] [id number] * COLONOSCOPY (11/18/2017 7:41 AM CDT) Anatomical Region Laterality Modality Other Narrative Procedure Note Alexander Pitts MD - 11/18/2017 7:41 AM CDT [facility] Patient Name: Baljeet Herman Procedure Date: 11/18/2017 7:41 AM Date of : 1965 Admit Type: Outpatient Age: 52 Gender: Male Attending MD: Alexander Pitts MD Room: [facility] ENDOSCOPY ROOM 2 Note Status: [...] passed under direct vision.The Pediatric Colonoscope PCF-H190L [id number] was introduced through the anus and advanced [...] malignant neoplasm of largeintestine CPT copyright 2017 [employer]. All rights reserved. The codes documented in this report are preliminary and upon steamboat inspector reviewmay be revised to meet current compliance requirements. Recognized by the [employer] for promoting quality in endoscopy Alexander Pitts MD ENDOSCOPY PROCEDURES Final Result from Last 3 Months or Most Recently Relevant to Health Maintenance Insurance MEDICARE IDPA IDNV [facility] [place] [address] [facility] [place] [address] IDPA Advance Directives For more information, please contact: [phone] Documents on File Type Date Recorded Patient Hitcher Expl anation ADVANCE DIRECTIVE 03/10/2019 8:47 AM John r of Staffing Mgr-Medical * Full Code (Latest Code Status on [...] 9:14 AM 05/11/2020 5:01 AM Care Teams Skydiving Instructor Relationship Specialty Start Date End Date Kevin Meyer PA [address] [place] [address] PCP - General 03/23/19 Kevin Meyer PA [address] [place] [address] 03/23/19 Benja Esteban MD [address] [place] [address] Medical Oncologist/Auto Overhauler Hematology and Oncology 02/28/20
--- OUTSIDE RECORDS SUMMARY | 2024-07-04 11:42 | XMS_ITS | Clinical Summary ---
Author Organization [facility] Address [address] [place] [address] Phone Care Team Providers Care Mattress Renovator Name Role Phone Unavailable Unavailable Unavailable Reason [...] Diagnosis Pain Management TOM BETH MD - [facility] - [address] [place] [address] - Pain in left ankle and joints of left foot Note: Left ankle steroid inj ection w/ ultrasound,PErformed same day.F/U in 1 month. Last Documented On 3 2:49PM ; [facility] Education and Decision Aids were provided during visit for: Pill Count: Patient did not bring pain medication to appointment for pill count, per policy. Advised in order to continue to safely prescribe opioids, medication must be brought to each appointment Last Documented On 3 9:33AM ; [facility] Pill Count: 74 Appropriate Last Documented On 3 9:33AM ; [facility] Assessments Includes: Assessments from this encounter Findings - [K59.03 - Drug induced constipation] Drug-induced constipation - Last Documented On 05/29/2022 1:45PM ; [facility] - [M19.072 - Primary osteoarthritis, left ankle and foot] Osteoarthritis of left ankle - Last Documented On 05/29/2022 1:45PM ; [facility] - [M46.1 - Sacroiliitis, not elsewhere classified] Right sacroiliitis - Last Documented On 05/29/2022 1:45PM ; [facility] - [M25.519 - Pain in unspecified shoulder] Arthralgia of bilateral shoulder region - Last Documented On 05/29/2022 1:45PM ; [facility] - [M25.561 - Pain in right knee] Arthralgia of the right knee/patella/tibia/fibula - Last Documented On 05/29/2022 1:45PM ; [facility] - [M25.562 - Pain in left knee] Arthralgia of the left knee/patella/tibia/fibula - Last Documented On 05/29/2022 1:45PM ; [facility] - [M25.559 - Pain in unspecified hip] Hip pain - Last Documented On 05/29/2022 1:45PM ; [facility] - [M25.572 - Pain in left ankle and joints of left foot] Arthralgia of left ankle - Last Documented On 05/29/2022 1:45PM ; [facility] - [M25.572 - Pain in left ankle and joints of left foot] Arthralgia of the left ankle/foot - Last Documented On 05/29/2022 1:45PM ; [facility] - [M54.9 - Dorsalgia, unspecified] DORSALGIA - Last Documented On 05/29/2022 1:45PM ; [facility] - [M96.1 - Postlaminectomy syndrome, not elsewhere classified] Cervical postlaminectomy syndrome - Last Documented On 05/29/2022 1:45PM ; [facility] - [M47.892 - Other spondylosis, cervical region] Cervical spondylosis - Last Documented On 05/29/2022 1:45PM ; [facility] - [M47.897 - Other spondylosis, lumbosacral region] Lumbosacral spondylosis - Last Documented On 05/29/2022 1:45PM ; [facility] - [M54.2 - Cervicalgia] Cervicalgia - Last Documented On 05/29/2022 1:45PM ; [facility] - [M54.13 - Radiculopathy, cervicothoracic region] Cervicothoracic radiculopathy - Last Documented On 05/29/2022 1:45PM ; [facility] - [M54.17 - Radiculopathy, lumbosacral region] Lumbosacral radiculopathy - Last Documented On 05/29/2022 1:45PM ; [facility] - [M62.830 - Muscle spasm of back] Muscle spasm of back - Last Documented On 05/29/2022 1:45PM ; [facility] - [F11.20 - Opioid dependence, uncomplicated] Opioid dependence with continuous use - Last Documented On 05/29/2022 1:45PM ; [facility] - [F31.9 - Bipolar disorder, unspecified] Bipolar disorder NOS - Last Documented On 05/29/2022 1:45PM ; [facility] - [F43.12 - Post-traumatic stress disorder, chronic] Chronic post-traumatic stress disorder following combat - Last Documented On 05/29/2022 1:45PM ; [facility] - [G89.4 - Chronic pain syndrome] Chronic pain syndrome - Last Documented On 05/29/2022 1:45PM ; [facility] - [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 Advised in order to continue to safely prescribe opioids, medication must be brought to each appointment Last Documented On 9:33AM ; [facility] Pill Count: 74 Appropriate Last Documented On 9:33AM ; [facility] Medical Equipment - Implanted Devices Includes: Current Devices No Medical Equipment Recorded Medications Includes: Medications discussed during this encounter and other current Medications Discontinued / Stopped on this date on 05/01/2022 traZODone HCl 50 MG Oral Tablet Provider: Diagnosis: Last Documented On 05/29/2022 9:44AM By Ar COX ; [facility] Current Medications (continue as prescribed) Ambien 10 MG Oral Tablet 05/29/2022 Provider: Diagnosis: Last Documented On 05/29/2022 9:44AM By Ar COX ; [facility] Pregabalin 50 MG Oral Capsule 05/01/2022 Provider: Diagnosis: 50mg BID Last Documented On 05/01/2022 1:59PM By Freida Britt RN ; [facility] Rimegepant Sulfate 75 MG Oral Tablet Disintegrating Provider: Diagnosis: 75mg daily prn for migraine [place] Last Documented On 05/01/2022 2:00PM By Freida Britt RN ; [facility] traMADol HCl 50 MG Oral Tablet 05/01/2022 Provider: Diagnosis: 1 tab po q 6 hrs prn Last Documented On 05/01/2022 2:01PM By Freida Britt RN ; [facility] Effexor XR 150 MG Oral Capsule Extended Release 24 Alexandra r 05/01/2022 Provider: Diagnosis: 1 daily Last Documented On 05/01/2022 2:02PM By Freida Britt RN ; [facility] rOPINIRole HCl 1 MG Oral Tablet 05/01/2022 Provider: Diagnosis: TID prn Last Documented On 05/01/2022 2:02PM By Freida Britt RN ; [facility] Prazosin HCl 1 MG Oral Capsule 05/01/2022 Provider: Diagnosis: Last Documented On 05/01/2022 1:59PM By Freida Britt RN ; [facility] QUEtiapine Fumarate 100 MG Oral Tablet 05/01/2022 Pr ovider: Diagnosis: Last Documented On 05/01/2022 1:58PM By Freida Britt RN ; [facility] Cyclobenzaprine HCl 10 MG Oral Tablet 05/01/2022 Pro vider: Diagnosis: 1 tab po TID prn for muscle spasms Last Documented On 05/01/2022 1:58PM By Freida Britt RN ; [facility] Loreev XR 1 MG Oral Capsule ER 24 Hour Sprinkle 2022 Provider: Diagnosis: Last Documented On 05/01/2022 1:35PM By Ar COX ; [facility] Venlafaxine HCl ER 150 MG Or al Capsule Extended Release 24 Hour 02/28/2021 Provider: Diagnosis: Last Documented On 02/28/2021 9:15AM By Ar COX ; [facility] Levothyroxine Sodium 75 MCG Oral Capsule 02/28/2021 Provider: Diagnosis: Last Documented On 02/28/2021 9:14AM By Ar COX ; [facility] Past Medications on file Cyclobenzaprine HCl 10 MG Oral Tablet 06/20/2022 - 06/25/2022 Provider: TOM BETH MD Diagnosis: Dorsalgia, unspecified 1 tab po TID prn for muscle spasms Last Documented On 06/20/2022 12:32PM By Tom Beth MD ; [facility] Medications Administered Includes: Administered Medications from this encounter Medications Administered Diagnosis Date Pro vider Sensorcaine 0.5% IJ SOLN 05/29/2022 GABINO BETH MD administered by Dr. Beth Last Documented On 3 11:16AM By Candie Parada RN ; [facility] dexAMETHasone Sodium Phosphate 10 MG/ML IJ SOLN 05/29/2022 TOM BETH MD administered by Dr. Beth Last Documented On 3 11:15AM By Candie Parada RN ; [facility] Sodium Chloride 0.9% IJ SOLN 05/29/2022 TOM BETH MD administered by Dr. Beth for local Last Documented On 3 11:14AM By Candie Parada RN ; [facility] Xylocaine 1% IJ SOLN 05/29/2022 TOM BETH MD administered by Dr. Beth for local Last Documented On 3 11:13AM By Candie Parada RN ; [facility] Vital Signs Includes: Vital Signs from this encounter Vital Name 05/29/2022 09:44A Blood Pressure Sitting L 118/70 BP Cuff Size Regular Pulse Rate-Sitting (bpm) 67 Pulse Rhythm Regular Temp-Oral (F) 98.2 Weight (lb) .2 Pain Level 8 Oxygen Saturation (%) 93 Last Documented: On 05/29/2022 9:46AM ; [facility] Results Includes: Results discussed during this encounter No Results Recorded For Specified Dates History of Present Illness Includes: History of Present Illness from this encounter HPI PHQ-9 Score: 3 Date:05-29-22BPI Score: Date:MiDAS Score: Date:SOAPP-R Score: 9 LOW Date: 21-92-83Sbkh Location: bilateral neck,back knee ltfootQuality: deep aching, [...] last seen. Apparently his insurance changed to [employer] which was not accepted by this hospital [...] treatment there and change his insurance to [facility]. Apparently he elected to return to our office for ongoing management of his chronic low back pain. However, his symptoms have somewhat changed since last seen based on our records. We will obtain records from [facility] to confirm, however he now complains [...] for medications today but was accepting of nufy-[id number]-[id number] analgesics, topical Voltaren and oral Tylenol until [...] I've recommended Dr. Anne Marie Lobo in [place]. He is willing to make this drive [...] 02/28/2021 Last Documented On 3 9:32AM ; [facility] No recent change in sleep 02/28/2021 Last Documented On 3 9:32AM ; [facility] [PHQ-2] Patient Health Questionnaire 2 i tem total score: 8 (Scale: 0-6) 02/28/2021 Last Documented On 3 9:32AM ; [facility] Difficulty walking 02/28/2021 Last Documented On 3 9:32AM ; [facility] No consumption of alcohol 02/28/2021 Last Documented On 3 9:32AM ; [facility] Not using drugs 02/28/2021 Last Documented On 3 9:32AM ; [facility] Smoking Status Unknown Procedures and Surgical History Includes: Procedures from this encounter Procedures Code Diagnosis Performing Provider Service L ocation Service Date walker Last Documented On 3 9:33AM ; [facility] use of tobacco assessment performed 1000F Last Documented On 3 9:33AM ; [facility] falls risk assessment [place] [address]288[place] Last Documented On 3 9:33AM ; [facility] review of medications documented 1160F Last Documented On 3 9:33AM ; [facility] assessment of suicide risk performed Last Documented On 3 9:33AM ; [facility] screening for adult depression: impressi on and score seven Last Documented On 3 9:33AM ; [facility] standardized depression screening: posit vini for symptoms Last Documented On 3 9:33AM ; [facility] Clinical summary provided to patient Last Documented On 3 9:33AM ; [facility] SOAPP-R: total score 15 Last Documented On 3 9:33AM ; [facility] SOAPP-R: total score 9 Last Documented On 3 9:33AM ; [facility] Surgical History Last Updated No Pacemaker 02/28/2021 Last Documented On 3 9:32AM ; [facility] Medical History Includes: Medical History addressed during this encounter Description Last Updated Blood pressure was high 02/28/2021 Last Documented On 3 9:32AM ; [facility] Hypertension 02/28/2021 Last Documented On 3 9:32AM ; [facility] No exposure to a contagious disease 11/2020 Last Documented On 3 9:32AM ; [facility] No previous psychiatric treatment 2020 Last Documented On 3 9:32AM ; [facility] Not taking OTC medications 02/28/2021 Last Documented On 3 9:32AM ; [facility] Taking medication for high blood pressur e 02/28/2021 Last Documented On 3 9:32AM ; [facility] manager care management 02/28/2021 Last Documented On 3 9:32AM ; [facility] Currently wearing eyeglasses 02/28/2021 Last Documented On 3 9:32AM ; [facility] Injection/Nerve blocks 02/28/2021 Last Documented On 3 9:32AM ; [facility] Moderate to severe pain 02/28/2021 Last Documented On 3 9:32AM ; [facility] No Pain Pump 02/28/2021 Last Documented On 3 9:32AM ; [facility] No Spinal cord stimulator 02/28/2021 Last Documented On 3 9:32AM ; [facility] Other method: 02/28/2021 Last Documented On 3 9:32AM ; [facility] Physical therapy 02/28/2021 Last Documented On 3 9:32AM ; [facility] Please list all illnesses/co nditions you have been diagnosed with: Bi polar manic depressed colon cancer 02/28/2021 Last Documented On 3 9:32AM ; [facility] Please list all surgeries: Dec frances pierre Apr 2015 ankle Jan 2021 ankle 02/28/2021 Last Documented On 3 9:32AM ; [facility] Surgery 02/28/2021 Last Documented On 3 9:32AM ; [facility] Uses a cane for support 02/28/2021 Last Documented On 3 9:32AM ; [facility] Uses a Knee Brace 02/28/2021 Last Documented On 3 9:32AM ; [facility] Family History Includes: Family History addressed during this encounter Description Last Updated Fraternal history of Arthritis Last Documented On 3 9:32AM ; [facility] Maternal history of family history of is chemic heart disease 02/28/2021 Last Documented On 3 9:32AM ; [facility] Reported family history of seizures 11/2020 Last Documented On 3 9:32AM ; [facility] Review of Systems Includes: [...] Last Documented On 07/02/2022 3:31PM ; [facility] Note: Blurred vision BEES Allergy 05/01/2022 Active Last Documented On 3 3:31PM ; [facility] Bactrim Allergy Skin Rashes / Eruption of skin 3 Active Last Documented On 3 3:31PM ; [facility] Encounters Encounter Provider Location Date Check-In Time Check-Out Time Diagnosis PAIN MANAGEMENT FOLLOW UP TOM BETH MD [facility] 023 9:31AM 10:27AM Cervical Spondylosis,Bipola r [...] Disorder Following Combat,Muscle Spasm of Back,Hip Pain, Unspecified,Shackler Use of Opiate Analgesic,Dorsalgi a,Arthralgia - Left Ankle,Osteoarthrit is Ankle Left Insurance Includes: Active Insurance Policies Plan Name Member ID Group # Subscriber Relationship Effect vini Dates 1 - [facility] [id number] AILEEN Serrano 2 - [employer] OF [place] MED[employer]ARE SECOND [id number] AILEEN Serrano Clinical Notes Includes: Clinical Notes from this encounter * Progress note Date Encounter Last Documented by 05/29/2022 PAIN MANAGEMENT FOLLOW UP Last d ocumented on 05/29/2022; 1:45 PM, TOM BETH MD; [facility] Chief Complaint The Chief Complaint is: F/U [...] last seen. Apparently his insurance changed to [employer] which was not accepted by this hospital [...] treatment there and change his insurance to [facility]. Apparently he elected to return to our office for ongoing management of his chronic low back pain. However, his symptoms have somewhat changed since last seen based on our records. We will obtain records from [facility] to confirm, however he now complains [...] for medications today but was accepting of xgla-ivb-[id number] analgesics, topical Voltaren and oral Tylenol until [...] I've recommended Dr. Anne Marie Lobo in [place]. He is willing to make this drive [...] Past Medical/Surgical History Reported: Surgery, Injection/Nerve blocks, manager care management, 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 in all extremities. No focal neurologic deficit. Vole-bq-povx normal bilaterally. Babinski downgoing. Psych: No apparent [...] syndrome] Chronic pain syndrome - [Z79.891 - FDC (current) use of opiate analgesic] [employer]DC use of opiate analgesic Therapy - Other [...] 50% of this time spent in direct [id number]-[id number] counseling and coordination of care. Results of [...] but may be subject to typographical or line construction engineer errors. Verify all diagnoses, medications, dosages, and [...]
--- OUTSIDE RECORDS SUMMARY | 2024-07-04 11:42 | XMS_ITS | Clinical Summary ---
Author Organization [facility] Address [address] [place] [address] Care Team Providers Care Refuse Collector Supervisor Name Role Phone Kevin Meyer Primary Care Provider [phone] Kevin Meyer Unavailable [phone] Benja Esteban MD Unavailable [phone] Allergies Active Allergy Reactions Criticality Noted [...] 1 tablet (75 mcg total) by mouth glove cuffer before breakfast Active venlafaxine XR (EFFEXOR-XR) 150 [...] (12/17/2020): Added automatically from request for surgery [id number] 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/13/2020 Overview (12/13/2020): Added automatically from request for surgery [id number] Malignant carcinoid tumor of the ileum Stimulant use disorder 05/31/2020 Severe alcohol use disorder 05/31/2020 PTSD (post-traumatic stress disorder) 05/31/2020 Chronic bilateral low back pain without sciatica 04/07/2020 Assessment & Plan (05/04/2020 12:54 PM INTERSTATE BUS DRIVER): - flexeril 10mg TID PRN - [place] 10mg q4 PRN - lidocaine patch daily - avoid IV ketorelac and NSAIDs with starting lithium - heating packs Assessment & Plan (05/03/2020 9:56 AM INTERSTATE BUS DRIVER): - flexeril 10mg TID PRN - [place] 10mg q4 PRN - lidocaine patch daily - avoid IV ketorelac and NSAIDs with starting lithium - heating packs Assessment & Plan (05/02/2020 11:56 AM INTERSTATE BUS DRIVER): - flexeril 10mg TID PRN - [place] 10mg q4 PRN - lidocaine patch daily - avoid IV ketorelac and NSAIDs with starting lithium - heating packs Assessment & Plan (05/01/2020 10:58 AM INTERSTATE BUS DRIVER): - flexeril 10mg TID PRN - NORCO 10mg q4 PRN - lidocaine patch daily - avoid IV ketorelac and NSAIDs with starting lithium - heating pads Assessment & Plan (04/30/2020 12:17 PM INTERSTATE BUS DRIVER): - flexeril 10mg TID PRN - NORCO 10mg q4 PRN - lidocaine patch daily - avoid IV ketorelac and NSAIDs with starting lithium - heating pads Assessment & Plan (04/28/2020 8:01 AM INTERSTATE BUS DRIVER): - flexeril 10mg TID PRN - NORCO 10mg q4 PRN - lidocaine patch daily - avoid IV ketorelac and NSAIDs with starting lithium - heating pads Assessment & Plan (04/27/2020 8:47 AM INTERSTATE BUS DRIVER): - flexeril 10mg TID PRN - NORCO 10mg q4 PRN - lidocaine patch daily - avoid IV ketorelac and NSAIDs given ADILENE - heating pads Assessment & Plan (04/26/2020 10:11 AM INTERSTATE BUS DRIVER): - flexeril 10mg TID PRN - NORCO 10mg q4 PRN - lidocaine patch daily - avoid IV ketorelac and NSAIDs given ADILENE - heating pads Assessment & Plan (04/25/2020 9:45 AM INTERSTATE BUS DRIVER): - flexeril 10mg TID PRN - NORCO 10mg q4 PRN - lidocaine patch daily - avoid IV ketorelac and NSAIDs given ADILENE - heating pads Assessment & Plan (04/24/2020 9:49 AM INTERSTATE BUS DRIVER): - flexeril 10mg TID PRN - NORCO 10mg q4 PRN - lidocaine patch daily - avoid IV ketorelac and NSAIDs given ADILENE - heating pads Assessment & Plan (04/23/2020 10:21 AM INTERSTATE BUS DRIVER): - flexeril 10mg TID PRN - NORCO 10mg q4 PRN - lidocaine patch daily - avoid IV ketorelac and NSAIDs given ADILENE - heating pads Assessment & Plan (04/21/2020 8:38 AM INTERSTATE BUS DRIVER): - flexeril 10mg TID PRN - NORCO 10mg q4 PRN - lidocaine patch daily - avoid IV ketorelac and NSAIDs given ADILENE - heating pads Assessment & Plan (04/20/2020 12:05 PM INTERSTATE BUS DRIVER): - flexeril 10mg TID PRN - NORCO 10mg q4 PRN - lidocaine patch daily - avoid IV ketorelac and NSAIDs given ADILENE - heating pads Assessment & Plan (04/19/2020 9:46 AM INTERSTATE BUS DRIVER): - flexeril 10mg TID PRN - NORCO 10mg q4 PRN - lidocaine patch daily - avoid IV ketorelac and NSAIDs given ADILENE - heating pads Assessment & Plan (04/18/2020 10:09 AM INTERSTATE BUS DRIVER): - flexeril 10mg TID PRN - NORCO 10mg q4 PRN - lidocaine patch daily - avoid IV ketorelac and NSAIDs given ADILENE - heating pads Assessment & Plan (04/17/2020 9:31 AM INTERSTATE BUS DRIVER): - flexeril 10mg TID PRN - NORCO 10mg q4 PRN - lidocaine patch daily - avoid IV ketorelac and NSAIDs given ADILENE - heating pads Assessment & Plan (04/16/2020 11:51 AM INTERSTATE BUS DRIVER): - flexeril 10mg TID PRN - NORCO 10mg q4 PRN - lidocaine patch daily - avoid IV ketorelac and NSAIDs given ADILENE - heating pads Assessment & Plan (04/14/2020 9:57 AM INTERSTATE BUS DRIVER): - flexeril 10mg TID PRN - NORCO 10mg q4 PRN - lidocaine patch daily - avoid IV ketorelac and NSAIDs given ADILENE - heating pads Assessment & Plan (04/10/2020 10:04 PM INTERSTATE BUS DRIVER): - flexeril 10mg TID PRN - NORCO 10mg q4 PRN - lidocaine patch daily - avoid IV ketorelac and NSAIDs given ADILENE - heating pads Assessment & Plan (04/08/2020 3:23 PM INTERSTATE BUS DRIVER): Patient endorsing exacerbation of chronic back pain [...] -PT Assessment & Plan (04/07/2020 6:23 AM INTERSTATE BUS DRIVER): Patient endorsing exacerbation of chronic back pain and left ankle pain (had previous traumatic injury, required surgery). No other red flag symptoms/signs. Reports he has received injections in the past -Continue PRN norco, flexeril -Lidocaine patch to back -PT Depressive disorder 04/03/2020 Assessment & Plan (05/04/2020 12:54 PM INTERSTATE BUS DRIVER): 54yo M with reported history of bipolar [...] more bright. Plan to discharge patient 05/04. Susank augmentation started with moderate improvements seen in depressive symptoms with ECT, titrated to 300 mg BID with level 0.6. - Continue OLANZapine, 20 mg, oral, Nightly, for depression - Continue Venlafaxine XR 150 mg PO daily, for depression - Continue lithium to 300 mg BID - Susank level 0.6 on 05/03 - This is [...] 05/04 Assessment & Plan (05/03/2020 9:56 AM INTERSTATE BUS DRIVER): 54yo M with reported history of bipolar [...] more bright. Plan to discharge patient 05/04. Susank augmentation started with moderate improvements seen in depressive symptoms with ECT, titrated to 300 mg BID with level 0.6. - Continue OLANZapine, 20 mg, oral, Nightly, for depression - Continue Venlafaxine XR 150 mg PO daily, for depression - Continue lithium to 300 mg BID - Susank level 0.6 on 05/03 - This is [...] permission) Assessment & Plan (05/02/2020 11:56 AM INTERSTATE BUS DRIVER): 54yo M with reported history of bipolar [...] permission) Assessment & Plan (05/01/2020 10:58 AM INTERSTATE BUS DRIVER): 54yo M with reported history of bipolar [...] family Assessment & Plan (04/30/2020 12:17 PM INTERSTATE BUS DRIVER): 54yo M with reported history of bipolar [...] family Assessment & Plan (04/28/2020 8:02 AM INTERSTATE BUS DRIVER): 54yo M with reported history of bipolar [...] depression Assessment & Plan (04/27/2020 8:47 AM INTERSTATE BUS DRIVER): 54yo M with reported history of bipolar [...] depression Assessment & Plan (04/26/2020 10:11 AM INTERSTATE BUS DRIVER): 54yo M with reported history of bipolar [...] depression Assessment & Plan (04/25/2020 9:47 AM INTERSTATE BUS DRIVER): 54yo M with reported history of bipolar [...] depression Assessment & Plan (04/24/2020 9:48 AM INTERSTATE BUS DRIVER): 54yo M with reported history of bipolar [...] depression Assessment & Plan (04/23/2020 10:21 AM INTERSTATE BUS DRIVER): 54yo M with reported history of bipolar [...] depression Assessment & Plan (04/21/2020 8:36 AM INTERSTATE BUS DRIVER): 54yo M with reported history of bipolar [...] depression Assessment & Plan (04/20/2020 12:05 PM INTERSTATE BUS DRIVER): 54yo M with reported history of bipolar [...] depression Assessment & Plan (04/19/2020 9:48 AM INTERSTATE BUS DRIVER): 54yo M with reported history of bipolar [...] depression Assessment & Plan (04/18/2020 10:08 AM INTERSTATE BUS DRIVER): 54yo M with reported history of bipolar [...] depression Assessment & Plan (04/17/2020 9:32 AM INTERSTATE BUS DRIVER): 54yo M with reported history of bipolar [...] depression Assessment & Plan (04/16/2020 11:49 AM INTERSTATE BUS DRIVER): 54yo M with reported history of bipolar [...] depression Assessment & Plan (04/14/2020 9:56 AM INTERSTATE BUS DRIVER): 54yo M with reported history of bipolar [...] depression Assessment & Plan (04/13/2020 9:46 AM INTERSTATE BUS DRIVER): 54yo M with reported history of bipolar [...] for ECT by cardiology, no diagnosis of ischemia/[place], no focal wall movement abnormalities on echo, [...] procedure Assessment & Plan (04/10/2020 3:25 PM INTERSTATE BUS DRIVER): Presented to ED 04/02 with suicidal ideation, depression. Initially admitted to psychiatry for medication adjustment, received ECT x1 04/06 -Continue current meds: lexapro 5, effexor 112.5, olanzapine 20mg QHS - If COVID test is negative, transfer to Psychiatry floor. Assessment & Plan (04/08/2020 3:24 PM INTERSTATE BUS DRIVER): Presented to ED 04/02 with suicidal ideation, depression. Initially admitted to psychiatry for medication adjustment, received ECT x1 04/06 -Psych consulted upon transfer to medicine but are following only peripherally over the weekend -Continue current meds: lexapro 5, effexor 112.5, olanzapine 20mg QHS -Psychiatry recommending discontinuing suicide precautions with 1:1 sitter Assessment & Plan (04/07/2020 6:14 AM INTERSTATE BUS DRIVER): Presented to ED 04/02 with suicidal ideation, depression. Initially admitted to psychiatry for medication adjustment, received ECT x1 04/06 -Psych c/s upon transfer -Continue current meds: lexapro 5, effexor 112.5, olanzapine 20mg QHS -Suicide precautions, 1:1 sitter Assessment & Plan (04/12/2020 9:11 AM INTERSTATE BUS DRIVER): 54yo M with reported history of bipolar [...] for ECT by cardiology, no diagnosis of ischemia/[place], no focal wall movement abnormalities on echo, [...] midnight Assessment & Plan (04/03/2020 2:04 PM INTERSTATE BUS DRIVER): 54yo M with reported history of bipolar [...] interested in ECT, will facilitate transfer to [facility] to facilitate ECT consult Uptitrate SSRI and otherwise continue home depakote and zyprexa (pt reports taking these medications daily for past several yrs) PRNs agitation and comfort Milieu, supportive, and group therapy Apprec intervention Obtain collateral Full code Dispo: home with GERD (gastroesophageal reflux disease) Assessment & Plan (05/04/2020 12:54 PM INTERSTATE BUS DRIVER): Patient has a long history of GERD. - Protonix 40 mg daily Assessment & Plan (05/03/2020 9:56 AM INTERSTATE BUS DRIVER): Patient has a long history of GERD. - Protonix 40 mg daily Assessment & Plan (05/02/2020 11:57 AM INTERSTATE BUS DRIVER): Patient has a long history of GERD. - Protonix 40 mg daily Assessment & Plan (05/01/2020 10:58 AM INTERSTATE BUS DRIVER): Patient has a long history of GERD. - Protonix 40 mg daily Assessment & Plan (04/30/2020 12:17 PM INTERSTATE BUS DRIVER): Patient has a long history of GERD. - Protonix 40 mg daily Assessment & Plan (04/28/2020 8:00 AM INTERSTATE BUS DRIVER): Patient has a long history of GERD. -Protonix 40 mg daily Assessment & Plan (04/27/2020 8:47 AM INTERSTATE BUS DRIVER): Patient has a long history of GERD. -Protonix 40 mg daily Assessment & Plan (04/26/2020 10:11 AM INTERSTATE BUS DRIVER): Patient has a long history of GERD. -Protonix 40 mg daily Assessment & Plan (04/25/2020 9:45 AM INTERSTATE BUS DRIVER): Patient has a long history of GERD. -Protonix 40 mg daily Assessment & Plan (04/24/2020 9:48 AM INTERSTATE BUS DRIVER): Patient has a long history of GERD. -Protonix 40 mg daily Assessment & Plan (04/23/2020 10:21 AM INTERSTATE BUS DRIVER): Patient has a long history of GERD. -Protonix 40 mg daily Assessment & Plan (04/21/2020 8:37 AM INTERSTATE BUS DRIVER): Patient has a long history of GERD. -Protonix 40 mg daily Assessment & Plan (04/20/2020 12:05 PM INTERSTATE BUS DRIVER): Patient has a long history of GERD. -Protonix 40 mg daily Assessment & Plan (04/19/2020 9:46 AM INTERSTATE BUS DRIVER): Patient has a long history of GERD. -Protonix 40 mg daily Assessment & Plan (04/18/2020 10:09 AM INTERSTATE BUS DRIVER): Patient has a long history of GERD. -Protonix 40 mg daily Assessment & Plan (04/17/2020 9:31 AM INTERSTATE BUS DRIVER): Patient has a long history of GERD. -Protonix 40 mg daily Assessment & Plan (04/16/2020 11:51 AM INTERSTATE BUS DRIVER): Patient has a long history of GERD. -Protonix 40 mg daily Assessment & Plan (04/14/2020 9:56 AM INTERSTATE BUS DRIVER): Patient has a long history of GERD. -Protonix 40 mg daily Assessment & Plan (04/10/2020 3:25 PM INTERSTATE BUS DRIVER): Continue pantoprazole Assessment & Plan (04/08/2020 3:17 PM INTERSTATE BUS DRIVER): Continue pantoprazole Assessment & Plan (04/07/2020 6:15 AM INTERSTATE BUS DRIVER): Continue pantoprazole Assessment & Plan (04/03/2020 5:54 PM INTERSTATE BUS DRIVER): Patient has a long history of GERD. -Protonix 40 mg daily Hypothyroidism 04/03/2020 Assessment & Plan (05/04/2020 12:54 PM INTERSTATE BUS DRIVER): Patient carries a diagnosis of hypothyroidism for several years. He is currently treated on levothyroxine 75 mcg daily. - Repeat TFT tests in 6 weeks - continue levothyroxine 75 mcg daily Assessment & Plan (05/03/2020 9:56 AM INTERSTATE BUS DRIVER): Patient carries a diagnosis of hypothyroidism for several years. He is currently treated on levothyroxine 75 mcg daily. - Repeat TFT tests in 6 weeks - continue levothyroxine 75 mcg daily Assessment & Plan (05/02/2020 11:57 AM INTERSTATE BUS DRIVER): Patient carries a diagnosis of hyperthyroidism for several years. He is currently treated on levothyroxine 75 mcg daily. - Repeat TFT tests in 6 weeks - continue levothyroxine 75 mcg daily Assessment & Plan (05/01/2020 10:58 AM INTERSTATE BUS DRIVER): Patient carries a diagnosis of hyperthyroidism for several years. He is currently treated on levothyroxine 75 mcg daily. - Repeat TFT tests in 6 weeks - continue levothyroxine 75 mcg daily Assessment & Plan (04/30/2020 12:17 PM INTERSTATE BUS DRIVER): Patient carries a diagnosis of hyperthyroidism for several years. He is currently treated on levothyroxine 75 mcg daily. - Repeat TFT tests in 6 weeks - continue levothyroxine 75 mcg daily Assessment & Plan (04/28/2020 8:00 AM INTERSTATE BUS DRIVER): Patient carries a diagnosis of hyperthyroidism for several years. He is currently treated on levothyroxine 75 mcg daily. - Repeat TFT tests in 6 weeks - continue levothyroxine 75 mcg daily Assessment & Plan (04/27/2020 8:47 AM INTERSTATE BUS DRIVER): Patient carries a diagnosis of hyperthyroidism for several years. He is currently treated on levothyroxine 75 mcg daily. - Repeat TFT tests in 6 weeks - continue levothyroxine 75 mcg daily Assessment & Plan (04/26/2020 10:11 AM INTERSTATE BUS DRIVER): Patient carries a diagnosis of hyperthyroidism for several years. He is currently treated on levothyroxine 75 mcg daily. - Repeat TFT tests in 6 weeks - continue levothyroxine 75 mcg daily Assessment & Plan (04/25/2020 9:45 AM INTERSTATE BUS DRIVER): Patient carries a diagnosis of hyperthyroidism for several years. He is currently treated on levothyroxine 75 mcg daily. - Repeat TFT tests in 6 weeks - continue levothyroxine 75 mcg daily Assessment & Plan (04/24/2020 9:48 AM INTERSTATE BUS DRIVER): Patient carries a diagnosis of hyperthyroidism for several years. He is currently treated on levothyroxine 75 mcg daily. - Repeat TFT tests in 6 weeks - continue levothyroxine 75 mcg daily Assessment & Plan (04/23/2020 10:21 AM INTERSTATE BUS DRIVER): Patient carries a diagnosis of hyperthyroidism for several years. He is currently treated on levothyroxine 75 mcg daily. - Repeat TFT tests in 6 weeks - continue levothyroxine 75 mcg daily Assessment & Plan (04/21/2020 8:37 AM INTERSTATE BUS DRIVER): Patient carries a diagnosis of hyperthyroidism for several years. He is currently treated on levothyroxine 75 mcg daily. - Repeat TFT tests in 6 weeks - continue levothyroxine 75 mcg daily Assessment & Plan (04/20/2020 12:05 PM INTERSTATE BUS DRIVER): Patient carries a diagnosis of hyperthyroidism for several years. He is currently treated on levothyroxine 75 mcg daily. - Repeat TFT tests in 6 weeks - continue levothyroxine 75 mcg daily Assessment & Plan (04/19/2020 9:46 AM INTERSTATE BUS DRIVER): Patient carries a diagnosis of hyperthyroidism for several years. He is currently treated on levothyroxine 75 mcg daily. - Repeat TFT tests in 6 weeks - continue levothyroxine 75 mcg daily Assessment & Plan (04/18/2020 10:09 AM INTERSTATE BUS DRIVER): Patient carries a diagnosis of hyperthyroidism for several years. He is currently treated on levothyroxine 75 mcg daily. - Repeat TFT tests in 6 weeks - continue levothyroxine 75 mcg daily Assessment & Plan (04/17/2020 9:31 AM INTERSTATE BUS DRIVER): Patient carries a diagnosis of hyperthyroidism for several years. He is currently treated on levothyroxine 75 mcg daily. - Repeat TFT tests in 6 weeks - continue levothyroxine 75 mcg daily Assessment & Plan (04/16/2020 11:51 AM INTERSTATE BUS DRIVER): Patient carries a diagnosis of hyperthyroidism for several years. He is currently treated on levothyroxine 75 mcg daily. - Repeat TFT tests in 6 weeks - continue levothyroxine 75 mcg daily Assessment & Plan (04/14/2020 9:57 AM INTERSTATE BUS DRIVER): Patient carries a diagnosis of hyperthyroidism for several years. He is currently treated on levothyroxine 75 mcg daily. - Repeat TFT tests in 6 weeks - continue levothyroxine 75 mcg daily Assessment & Plan (04/10/2020 3:25 PM INTERSTATE BUS DRIVER): 04/02: TSH 6.49, T4 WNL at 1.38 Continue synthroid 75mcg; repeat TFTs 6-8 weeks Assessment & Plan (04/08/2020 3:17 PM INTERSTATE BUS DRIVER): 04/02: TSH 6.49, T4 WNL at 1.38 Continue synthroid 75mcg; repeat TFTs 6-8 weeks Assessment & Plan (04/07/2020 6:16 AM INTERSTATE BUS DRIVER): 04/02: TSH 6.49, T4 WNL at 1.38 Continue synthroid 75mcg; repeat TFTs 6-8 weeks Assessment & Plan (04/10/2020 9:35 PM INTERSTATE BUS DRIVER): Patient carries a diagnosis of hyperthyroidism for several years. He is currently treated on levothyroxine 75 mcg daily. - Repeat TFT tests in 6 weeks - continue levothyroxine 75 mcg daily Hyperlipemia 04/03/2020 Assessment & Plan (05/04/2020 12:55 PM INTERSTATE BUS DRIVER): Has a stated history of hyperlipidemia has been stably treated with atorvastatin 40 mg daily for many years. Patient's LDL low on lipid panel. Notable elevated triglycerides but not fasting sample. - atorvastatin 40 mg daily - fenofibrate 145mg daily Assessment & Plan (05/03/2020 9:56 AM INTERSTATE BUS DRIVER): Has a stated history of hyperlipidemia has been stably treated with atorvastatin 40 mg daily for many years. Patient's LDL low on lipid panel. Notable elevated triglycerides but not fasting sample. - atorvastatin 40 mg daily - fenofibrate 145mg daily Assessment & Plan (05/02/2020 11:57 AM INTERSTATE BUS DRIVER): Has a stated history of hyperlipidemia has been stably treated with atorvastatin 40 mg daily for many years. Patient's LDL low on lipid panel. Notable elevated triglycerides but not fasting sample. - atorvastatin 40 mg daily - fenofibrate 145mg daily Assessment & Plan (05/01/2020 10:58 AM INTERSTATE BUS DRIVER): Has a stated history of hyperlipidemia has been stably treated with atorvastatin 40 mg daily for many years. Patient's LDL low on lipid panel. Notable elevated triglycerides but not fasting sample. - atorvastatin 40 mg daily - tricor 145mg daily Assessment & Plan (04/30/2020 12:17 PM INTERSTATE BUS DRIVER): Has a stated history of hyperlipidemia has been stably treated with atorvastatin 40 mg daily for many years. Patient's LDL low on lipid panel. Notable elevated triglycerides but not fasting sample. - atorvastatin 40 mg daily - tricor 145mg daily Assessment & Plan (04/28/2020 8:01 AM INTERSTATE BUS DRIVER): Has a stated history of hyperlipidemia has been stably treated with atorvastatin 40 mg daily for many years. Patient's LDL low on lipid panel. Notable elevated triglycerides but not fasting sample. - atorvastatin 40 mg daily - tricor 145mg daily Assessment & Plan (04/27/2020 8:47 AM INTERSTATE BUS DRIVER): Has a stated history of hyperlipidemia has been stably treated with atorvastatin 40 mg daily for many years. Patient's LDL low on lipid panel. Notable elevated triglycerides but not fasting sample. - atorvastatin 40 mg daily - tricor 145mg daily Assessment & Plan (04/26/2020 10:11 AM INTERSTATE BUS DRIVER): Has a stated history of hyperlipidemia has been stably treated with atorvastatin 40 mg daily for many years. Patient's LDL low on lipid panel. Notable elevated triglycerides but not fasting sample. - atorvastatin 40 mg daily - tricor 145mg daily Assessment & Plan (04/25/2020 9:45 AM INTERSTATE BUS DRIVER): Has a stated history of hyperlipidemia has [...] daily Assessment & Plan (04/24/2020 9:48 AM INTERSTATE BUS DRIVER): Has a stated history of hyperlipidemia has [...] daily Assessment & Plan (04/23/2020 10:21 AM INTERSTATE BUS DRIVER): Has a stated history of hyperlipidemia has [...] daily Assessment & Plan (04/21/2020 8:38 AM INTERSTATE BUS DRIVER): Has a stated history of hyperlipidemia has [...] daily Assessment & Plan (04/20/2020 12:05 PM INTERSTATE BUS DRIVER): Has a stated history of hyperlipidemia has [...] daily Assessment & Plan (04/19/2020 9:46 AM INTERSTATE BUS DRIVER): Has a stated history of hyperlipidemia has [...] daily Assessment & Plan (04/18/2020 10:09 AM INTERSTATE BUS DRIVER): Has a stated history of hyperlipidemia has [...] daily Assessment & Plan (04/17/2020 9:31 AM INTERSTATE BUS DRIVER): Has a stated history of hyperlipidemia has [...] daily Assessment & Plan (04/16/2020 11:51 AM INTERSTATE BUS DRIVER): Has a stated history of hyperlipidemia has [...] daily Assessment & Plan (04/14/2020 9:56 AM INTERSTATE BUS DRIVER): Has a stated history of hyperlipidemia has [...] daily Assessment & Plan (04/13/2020 9:46 AM INTERSTATE BUS DRIVER): Has a stated history of hyperlipidemia has [...] daily Assessment & Plan (04/10/2020 3:25 PM INTERSTATE BUS DRIVER): Continue atorvastatin 40 Assessment & Plan (04/08/2020 3:17 PM INTERSTATE BUS DRIVER): Continue atorvastatin 40 Assessment & Plan (04/07/2020 6:15 AM INTERSTATE BUS DRIVER): Continue atorvastatin 40 Assessment & Plan (04/12/2020 9:03 AM INTERSTATE BUS DRIVER): Has a stated history of hyperlipidemia has [...] (08/31/2018): Added automatically from request for surgery [id number] Assessment & Plan (09/06/2018 12:49 PM CDT): [...] 04/10/2020 Assessment & Plan (05/04/2020 12:55 PM INTERSTATE BUS DRIVER): Cr 1.3 -> 1.22 resolving. Baseline <1. - encourage fluids - avoid nephrotoxic meds Assessment & Plan (05/03/2020 9:56 AM INTERSTATE BUS DRIVER): Cr 1.3 -> 1.22 resolving. Baseline <1. - encourage fluids - avoid nephrotoxic meds Assessment & Plan (05/02/2020 11:57 AM INTERSTATE BUS DRIVER): Cr 1.3 -> 1.22 resolving. Baseline <1. - encourage fluids - avoid nephrotoxic meds Assessment & Plan (05/01/2020 10:58 AM INTERSTATE BUS DRIVER): Cr 1.3 -> 1.22 resolving. Baseline <1. - encourage fluids - avoid nephrotoxic meds Assessment & Plan (04/19/2020 9:46 AM INTERSTATE BUS DRIVER): Cr 1.3 -> 1.22 resolving. Baseline <1. - encourage fluids - avoid nephrotoxic meds Assessment & Plan (04/18/2020 10:09 AM INTERSTATE BUS DRIVER): Cr 1.3 -> 1.22 resolving. Baseline <1. - encourage fluids - avoid nephrotoxic meds Assessment & Plan (04/16/2020 11:51 AM INTERSTATE BUS DRIVER): Cr 1.3 -> 1.22 resolving. Baseline <1. - encourage fluids - avoid nephrotoxic meds Assessment & Plan (04/14/2020 9:57 AM INTERSTATE BUS DRIVER): Cr 1.3 -> 1.22 resolving. Baseline <1. - encourage fluids - avoid nephrotoxic meds Assessment & Plan (04/13/2020 9:47 AM INTERSTATE BUS DRIVER): Cr 1.3 -> 1.22 resolving. Baseline <1. - encourage fluids - avoid nephrotoxic meds Assessment & Plan (04/12/2020 9:04 AM INTERSTATE BUS DRIVER): Cr 1.3 -> 1.22 resolving. Baseline <1. - encourage fluids - avoid nephrotoxic meds Diarrhea 04/10/2020 04/20/2020 Assessment & Plan (05/04/2020 12:55 PM INTERSTATE BUS DRIVER): Patient recently had constipation, was treated with BID miralax and senna- docusate. Was having diarrhea last week so scheduled bowel regimen discontinued. - discontinued daily senna-docusate - miralax PRN Assessment & Plan (05/03/2020 9:56 AM INTERSTATE BUS DRIVER): Patient recently had constipation, was treated with BID miralax and senna- docusate. Was having diarrhea last week so scheduled bowel regimen discontinued. - discontinued daily senna-docusate - miralax PRN Assessment & Plan (05/01/2020 10:59 AM INTERSTATE BUS DRIVER): Patient recently had constipation, was treated with BID miralax and senna- docusate. Was having diarrhea last week so scheduled bowel regimen discontinued. - discontinued daily senna-docusate - miralax PRN Assessment & Plan (04/19/2020 9:47 AM INTERSTATE BUS DRIVER): Patient recently had constipation, was treated with BID miralax and senna- docusate. Was having diarrhea last week so scheduled bowel regimen discontinued. - discontinued daily senna-docusate - miralax PRN Assessment & Plan (04/16/2020 11:52 AM INTERSTATE BUS DRIVER): Patient recently had constipation, was treated with BID miralax and senna- docusate. Was having diarrhea last week so scheduled bowel regimen discontinued. - discontinue daily senna-docusate - miralax PRN Assessment & Plan (04/14/2020 9:57 AM INTERSTATE BUS DRIVER): Patient recently had constipation, was treated with BID miralax and senna- docusate. Endorsing nonbloody diarrhea for last 2 days. - discontinue daily senna-docusate - miralax PRN Assessment & Plan (04/10/2020 10:09 PM INTERSTATE BUS DRIVER): Patient recently had constipation, was treated with BID miralax and senna- docusate. Endorsing nonbloody diarrhea for last 2 days. - discontinue daily senna-docusate - miralax PRN Ventral hernia without obstr uction or gangrene 08/31/2018 04/20/2020 Overview (08/31/2018): Added automatically from request for surgery [id number] Assessment & Plan (09/06/2018 12:51 PM CDT): The procedure along with the risks, benefits, and post operative period were discussed with the patient and his significant other who agree. Fracture of navicular bone of foot 05/16/2015 04/20/2020 Encounters Date Type Department Care Team Description 04/06/2024 9:25 AM INTERSTATE BUS DRIVER Office Visit [address] [place] [address] Eyers, Katherine, CARDIOVASCULAR RN Gallstones (Primary Dx) from Last 3 Months [...] week 02/01/2021 How often do you attend [facility] or synagogue services? More than 4 times per year 02/01/2021 Do you belong to any clubs o r organizations such as oriental orthodox groups, unions, fraternal or athletic groups, or [...] Date Recorded PHQ-2 Total Score 4 04/03/2020 [facility] Occupat ional [facility] - Occupational Stress [...] or slept in a residential (including now)? No 02/01/2021 Personal Safety Answer Date Recorded Have you ever been in or are you currently in a harmful physical or emotional relationship or is someone making you feel afraid or unsafe? Denies 03/11/2024 Sex and Gender Information Value Date Recorded Sex Assigned at Not on file Legal Sex Male 3:25 AM INTERSTATE BUS DRIVER Gender Identity Male 03/26/2021 11:53 AM INTERSTATE BUS DRIVER Sexual Orientation Choose not to disclose 2021 11:53 AM INTERSTATE BUS DRIVER Occupation Industry Job Start Date Job End Date disabled Not on file Not on file Not on file Obstetrics History Last Filed Vital Signs Vital Sign Reading Time Taken Comments Blood Pressure 126/74 04/06/2024 9:02 AM INTERSTATE BUS DRIVER Pulse 68 04/06/2024 9:02 AM INTERSTATE BUS DRIVER Temperature 36.2 C (97.1 F) 04/06/2024 9:02 AM INTERSTATE BUS DRIVER Respiratory Rate 16 03/11/2024 4:45 PM INTERSTATE BUS DRIVER Oxygen Saturation 95% 04/06/2024 9:02 AM INTERSTATE BUS DRIVER Inhaled Oxygen Concentration - - Weight 97.3 kg (214 lb 9.6 oz) 04/06/2024 9:02 A M INTERSTATE BUS DRIVER Height 182.9 cm (6') 04/06/2024 9:02 AM INTERSTATE BUS DRIVER Body Mass Index 29.1 04/06/2024 9:02 AM INTERSTATE BUS DRIVER Plan of Treatment Health Maintenance Due Date [...] 10/2020, 08/28/2020 Medical Devices Implanted Type Area Manager Telemarketing Device Identifier Shelf Expiration Date Model / Serial / Lot [employer]/Eda Gallego [id number] Ventralight St Sepra 4.5in Uncoated Monofilament Lightweight - [id number] Implanted:Qty: 1 on 09/09/2018 by Xavier Aviles MD at [facility] N/A: Abdomen [employer] Inc/C R Bard 12/19/2019 [id number] / / [id number] [employer] Inc [id number] Mini Ignite Power Mix Injectable Graft 4ml Synthetic Tissue - [id number] - [id number] Implanted:Qty: 1 on 01/29/2021 by Don Kevin MD at [facility] Warranty Life 07/08/2023 [id number] / [id number] / [employer] [id number] Medline Unite 7mm 6.5mm 80mm 16mm Cannulated Color Coded Headless - [id number] Implanted:Qty: 1 on 01/29/2021 by Don Kevin MD at [facility] Left: Foot Medline [employer] [id number] / / [employer] [id number] Medline Unite 6.5mm 90mm 16mm Cannulated Color Coded Headless - [id number] Implanted:Qty: 1 on 01/29/2021 by Don Kevin MD at [facility] Left: Foot [employer] [id number] / / [employer] [id number] Screw Bone L50mm Od4.5mm Foot Ankle Cannulated Color Coded Osteotomy - [id number] Implanted:Qty: 1 on 01/29/2021 by Don Kevin MD at [facility] Left: Foot [employer] [id number] / / 20x20 Nitnol Staple Implanted:Qty: 1 on 01/29/2021 by Don Kevin MD at [facility] Left: Foot [employer] Description:[id number] [employer] [id number] Bit 3.3mm Drill Cannulated Ao Quick Connect Color Coded - [id number] Implanted:Qty: 1 on 01/29/2021 by Don Kevin MD at [facility] Left: Foot [employer] [id number] / / Procedures Procedure Name Priority Date/Time Associated Diagnosis Comments PSA SCREEN Routine 12/20/2019 2:31 PM CDT COLONOSCOPY 11/18/2017 7:41 AM CDT from Last 3 Months or Most Recently Relevant to Health Maintenance Results * PSA screen (12/20/2019 2:31 PM CDT) PSA-Total 0.53 <=3.90 ng/mL YULY HUNTER ([place]) Comment: Interpretive Data AGE SEX REFERENCE INTERVAL 0 minutes-150 years Female None 0 minutes-49 years Male None 50-59 years Male 0-3.90 60-69 years Male 0-5.40 70-79 years Male 0-6.20 80-150 years Male 0-6.20 Current interpretive data last revised 2018. Testing performed by: [facility], [address] [place] [address]., [facility] Blood specimen (specimen) 12/20/2019 2:31 PM CDT 12/20/2019 6:54 PM CDT us Raoul Best MD LAB BLOOD ORDERABLES Final Re sult YULY ELSA ([place]) [facility] [place] [address] * COLONOSCOPY (11/18/2017 7:41 AM CDT) Anatomical Region Laterality Modality Other Narrative Procedure Note Alexander Pitts MD - 11/18/2017 7:41 AM CDT [facility] Patient Name: Baljeet Herman Procedure Date: 11/18/2017 7:41 AM Date of : 1965 Admit Type: Outpatient Age: 52 Gender: Male Attending MD: Alexander Pitts MD [facility] 2 Note Status: Finalized [...] passed under direct vision.The Pediatric Colonoscope PCF-H190L [id number] was introduced through the anus and advanced [...] malignant neoplasm of largeintestine CPT copyright 2017 [employer] [place] [employer]. All rights reserved. The codes documented in this report are preliminary and upon boiler fireman reviewmay be revised to meet current compliance requirements. Recognized by the [place] [employer] for promoting quality in endoscopy Alexander Pitts MD ENDOSCOPY PROCEDURES Final Result from Last 3 Months or Most Recently Relevant to Health Maintenance Insurance MEDICARE IDPA IDPA [facility] MEDICARE ADVANTAGE [facility]IC[facility] ADVANTAGE IDPA Advance Directives For more information, please contact: [phone] Documents on File Type Date Recorded Patient Transportation Broker Expl anation ADVANCE DIRECTIVE 03/10/2019 8:47 AM [employer] * Full Code (Latest Code Status on [...] 9:14 AM 05/11/2020 5:01 AM Care Teams Refuse Collector Supervisor Relationship Specialty Start Date End Date Kevin Meyer PA [address] [place] [address] PCP - General 03/23/19 Kevin Meyer PA [address] [place] [address] 03/23/19 Benja Esteban MD [address] [place] [address] Medical Oncologist/Shopper'S Aide Hematology and Oncology 02/28/20
--- OUTSIDE RECORDS SUMMARY | 2024-07-04 11:42 | XMS_ITS ---
Author Organization [facility] Address [address] [place] [address] Care Team Providers Care Media Marketing Coordinator Name Role Phone Kevin Meyer Primary Care Provider [phone] Kevin Meyer Unavailable [phone] Benja Esteban MD Unavailable [phone] Active Problems Problem Noted Date Diagnosed Date Knee pain 02/13/2021 Malignant neoplasm of colon 02/13/2021 Essential hypertension 01/16/2021 Cervical radiculopathy 01/15/2021 Personal history of other ma lignant neoplasm of large intestine 12/17/2020 Overview (12/17/2020): Added automatically from request for surgery [id number] 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/13/2020 Overview (12/13/2020): Added automatically from request for surgery [id number] Malignant carcinoid tumor of the ileum Stimulant use disorder 05/31/2020 Severe alcohol use disorder 05/31/2020 PTSD (post-traumatic stress disorder) 05/31/2020 Chronic bilateral low back pain without sciatica 04/07/2020 Assessment & Plan (05/04/2020 12:54 PM GASOLINE TRUCK CRANE OPERATOR): - flexeril 10mg TID PRN - [place] 10mg q4 PRN - lidocaine patch daily - avoid IV ketorelac and NSAIDs with starting lithium - heating packs Assessment & Plan (05/03/2020 9:56 AM GASOLINE TRUCK CRANE OPERATOR): - flexeril 10mg TID PRN - [place] 10mg q4 PRN - lidocaine patch daily - avoid IV ketorelac and NSAIDs with starting lithium - heating packs Assessment & Plan (05/02/2020 11:56 AM GASOLINE TRUCK CRANE OPERATOR): - flexeril 10mg TID PRN - [place] 10mg q4 PRN - lidocaine patch daily - avoid IV ketorelac and NSAIDs with starting lithium - heating packs Assessment & Plan (05/01/2020 10:58 AM GASOLINE TRUCK CRANE OPERATOR): - flexeril 10mg TID PRN - NORCO 10mg q4 PRN - lidocaine patch daily - avoid IV ketorelac and NSAIDs with starting lithium - heating pads Assessment & Plan (04/30/2020 12:17 PM GASOLINE TRUCK CRANE OPERATOR): - flexeril 10mg TID PRN - NORCO 10mg q4 PRN - lidocaine patch daily - avoid IV ketorelac and NSAIDs with starting lithium - heating pads Assessment & Plan (04/28/2020 8:01 AM GASOLINE TRUCK CRANE OPERATOR): - flexeril 10mg TID PRN - NORCO 10mg q4 PRN - lidocaine patch daily - avoid IV ketorelac and NSAIDs with starting lithium - heating pads Assessment & Plan (04/27/2020 8:47 AM GASOLINE TRUCK CRANE OPERATOR): - flexeril 10mg TID PRN - NORCO 10mg q4 PRN - lidocaine patch daily - avoid IV ketorelac and NSAIDs given ADILENE - heating pads Assessment & Plan (04/26/2020 10:11 AM GASOLINE TRUCK CRANE OPERATOR): - flexeril 10mg TID PRN - NORCO 10mg q4 PRN - lidocaine patch daily - avoid IV ketorelac and NSAIDs given ADILENE - heating pads Assessment & Plan (04/25/2020 9:45 AM GASOLINE TRUCK CRANE OPERATOR): - flexeril 10mg TID PRN - NORCO 10mg q4 PRN - lidocaine patch daily - avoid IV ketorelac and NSAIDs given ADILENE - heating pads Assessment & Plan (04/24/2020 9:49 AM GASOLINE TRUCK CRANE OPERATOR): - flexeril 10mg TID PRN - NORCO 10mg q4 PRN - lidocaine patch daily - avoid IV ketorelac and NSAIDs given ADILENE - heating pads Assessment & Plan (04/23/2020 10:21 AM GASOLINE TRUCK CRANE OPERATOR): - flexeril 10mg TID PRN - NORCO 10mg q4 PRN - lidocaine patch daily - avoid IV ketorelac and NSAIDs given ADILENE - heating pads Assessment & Plan (04/21/2020 8:38 AM GASOLINE TRUCK CRANE OPERATOR): - flexeril 10mg TID PRN - NORCO 10mg q4 PRN - lidocaine patch daily - avoid IV ketorelac and NSAIDs given ADILENE - heating pads Assessment & Plan (04/20/2020 12:05 PM GASOLINE TRUCK CRANE OPERATOR): - flexeril 10mg TID PRN - NORCO 10mg q4 PRN - lidocaine patch daily - avoid IV ketorelac and NSAIDs given ADILENE - heating pads Assessment & Plan (04/19/2020 9:46 AM GASOLINE TRUCK CRANE OPERATOR): - flexeril 10mg TID PRN - NORCO 10mg q4 PRN - lidocaine patch daily - avoid IV ketorelac and NSAIDs given ADILENE - heating pads Assessment & Plan (04/18/2020 10:09 AM GASOLINE TRUCK CRANE OPERATOR): - flexeril 10mg TID PRN - NORCO 10mg q4 PRN - lidocaine patch daily - avoid IV ketorelac and NSAIDs given ADILENE - heating pads Assessment & Plan (04/17/2020 9:31 AM GASOLINE TRUCK CRANE OPERATOR): - flexeril 10mg TID PRN - NORCO 10mg q4 PRN - lidocaine patch daily - avoid IV ketorelac and NSAIDs given ADILENE - heating pads Assessment & Plan (04/16/2020 11:51 AM GASOLINE TRUCK CRANE OPERATOR): - flexeril 10mg TID PRN - NORCO 10mg q4 PRN - lidocaine patch daily - avoid IV ketorelac and NSAIDs given ADILENE - heating pads Assessment & Plan (04/14/2020 9:57 AM GASOLINE TRUCK CRANE OPERATOR): - flexeril 10mg TID PRN - NORCO 10mg q4 PRN - lidocaine patch daily - avoid IV ketorelac and NSAIDs given ADILENE - heating pads Assessment & Plan (04/10/2020 10:04 PM GASOLINE TRUCK CRANE OPERATOR): - flexeril 10mg TID PRN - NORCO 10mg q4 PRN - lidocaine patch daily - avoid IV ketorelac and NSAIDs given ADILENE - heating pads Assessment & Plan (04/08/2020 3:23 PM GASOLINE TRUCK CRANE OPERATOR): Patient endorsing exacerbation of chronic back pain [...] -PT Assessment & Plan (04/07/2020 6:23 AM GASOLINE TRUCK CRANE OPERATOR): Patient endorsing exacerbation of chronic back pain and left ankle pain (had previous traumatic injury, required surgery). No other red flag symptoms/signs. Reports he has received injections in the past -Continue PRN norco, flexeril -Lidocaine patch to back -PT Depressive disorder 04/03/2020 Assessment & Plan (05/04/2020 12:54 PM GASOLINE TRUCK CRANE OPERATOR): 54yo M with reported history of bipolar [...] more bright. Plan to discharge patient 05/04. [place] augmentation started with moderate improvements seen in depressive symptoms with ECT, titrated to 300 mg BID with level 0.6. - Continue OLANZapine, 20 mg, oral, Nightly, for depression - Continue Venlafaxine XR 150 mg PO daily, for depression - Continue lithium to 300 mg BID - [place] level 0.6 on 05/03 - This is [...] 05/04 Assessment & Plan (05/03/2020 9:56 AM GASOLINE TRUCK CRANE OPERATOR): 54yo M with reported history of bipolar [...] more bright. Plan to discharge patient 05/04. [place] augmentation started with moderate improvements seen in depressive symptoms with ECT, titrated to 300 mg BID with level 0.6. - Continue OLANZapine, 20 mg, oral, Nightly, for depression - Continue Venlafaxine XR 150 mg PO daily, for depression - Continue lithium to 300 mg BID - [place] level 0.6 on 05/03 - This is [...] permission) Assessment & Plan (05/02/2020 11:56 AM GASOLINE TRUCK CRANE OPERATOR): 54yo M with reported history of bipolar [...] permission) Assessment & Plan (05/01/2020 10:58 AM GASOLINE TRUCK CRANE OPERATOR): 54yo M with reported history of bipolar [...] family Assessment & Plan (04/30/2020 12:17 PM GASOLINE TRUCK CRANE OPERATOR): 54yo M with reported history of bipolar [...] family Assessment & Plan (04/28/2020 8:02 AM GASOLINE TRUCK CRANE OPERATOR): 54yo M with reported history of bipolar [...] depression Assessment & Plan (04/27/2020 8:47 AM GASOLINE TRUCK CRANE OPERATOR): 54yo M with reported history of bipolar [...] depression Assessment & Plan (04/26/2020 10:11 AM GASOLINE TRUCK CRANE OPERATOR): 54yo M with reported history of bipolar [...] depression Assessment & Plan (04/25/2020 9:47 AM GASOLINE TRUCK CRANE OPERATOR): 54yo M with reported history of bipolar [...] depression Assessment & Plan (04/24/2020 9:48 AM GASOLINE TRUCK CRANE OPERATOR): 54yo M with reported history of bipolar [...] depression Assessment & Plan (04/23/2020 10:21 AM GASOLINE TRUCK CRANE OPERATOR): 54yo M with reported history of bipolar [...] depression Assessment & Plan (04/21/2020 8:36 AM GASOLINE TRUCK CRANE OPERATOR): 54yo M with reported history of bipolar [...] depression Assessment & Plan (04/20/2020 12:05 PM GASOLINE TRUCK CRANE OPERATOR): 54yo M with reported history of bipolar [...] depression Assessment & Plan (04/19/2020 9:48 AM GASOLINE TRUCK CRANE OPERATOR): 54yo M with reported history of bipolar [...] depression Assessment & Plan (04/18/2020 10:08 AM GASOLINE TRUCK CRANE OPERATOR): 54yo M with reported history of bipolar [...] depression Assessment & Plan (04/17/2020 9:32 AM GASOLINE TRUCK CRANE OPERATOR): 54yo M with reported history of bipolar [...] depression Assessment & Plan (04/16/2020 11:49 AM GASOLINE TRUCK CRANE OPERATOR): 54yo M with reported history of bipolar [...] depression Assessment & Plan (04/14/2020 9:56 AM GASOLINE TRUCK CRANE OPERATOR): 54yo M with reported history of bipolar [...] depression Assessment & Plan (04/13/2020 9:46 AM GASOLINE TRUCK CRANE OPERATOR): 54yo M with reported history of bipolar [...] for ECT by cardiology, no diagnosis of ischemia/SD, no focal wall movement abnormalities on echo, [...] procedure Assessment & Plan (04/10/2020 3:25 PM GASOLINE TRUCK CRANE OPERATOR): Presented to ED 04/02 with suicidal ideation, depression. Initially admitted to psychiatry for medication adjustment, received ECT x1 04/06 -Continue current meds: lexapro 5, effexor 112.5, olanzapine 20mg QHS - If COVID test is negative, transfer to Psychiatry floor. Assessment & Plan (04/08/2020 3:24 PM GASOLINE TRUCK CRANE OPERATOR): Presented to ED 04/02 with suicidal ideation, depression. Initially admitted to psychiatry for medication adjustment, received ECT x1 04/06 -Psych consulted upon transfer to medicine but are following only peripherally over the weekend -Continue current meds: lexapro 5, effexor 112.5, olanzapine 20mg QHS -Psychiatry recommending discontinuing suicide precautions with 1:1 sitter Assessment & Plan (04/07/2020 6:14 AM GASOLINE TRUCK CRANE OPERATOR): Presented to ED 04/02 with suicidal ideation, depression. Initially admitted to psychiatry for medication adjustment, received ECT x1 04/06 -Psych c/s upon transfer -Continue current meds: lexapro 5, effexor 112.5, olanzapine 20mg QHS -Suicide precautions, 1:1 sitter Assessment & Plan (04/12/2020 9:11 AM GASOLINE TRUCK CRANE OPERATOR): 54yo M with reported history of bipolar [...] for ECT by cardiology, no diagnosis of ischemia/SD, no focal wall movement abnormalities on echo, [...] midnight Assessment & Plan (04/03/2020 2:04 PM GASOLINE TRUCK CRANE OPERATOR): 54yo M with reported history of bipolar [...] disease) Assessment & Plan (05/04/2020 12:54 PM GASOLINE TRUCK CRANE OPERATOR): Patient has a long history of GERD. - Protonix 40 mg daily Assessment & Plan (05/03/2020 9:56 AM GASOLINE TRUCK CRANE OPERATOR): Patient has a long history of GERD. - Protonix 40 mg daily Assessment & Plan (05/02/2020 11:57 AM GASOLINE TRUCK CRANE OPERATOR): Patient has a long history of GERD. - Protonix 40 mg daily Assessment & Plan (05/01/2020 10:58 AM GASOLINE TRUCK CRANE OPERATOR): Patient has a long history of GERD. - Protonix 40 mg daily Assessment & Plan (04/30/2020 12:17 PM GASOLINE TRUCK CRANE OPERATOR): Patient has a long history of GERD. - Protonix 40 mg daily Assessment & Plan (04/28/2020 8:00 AM GASOLINE TRUCK CRANE OPERATOR): Patient has a long history of GERD. -Protonix 40 mg daily Assessment & Plan (04/27/2020 8:47 AM GASOLINE TRUCK CRANE OPERATOR): Patient has a long history of GERD. -Protonix 40 mg daily Assessment & Plan (04/26/2020 10:11 AM GASOLINE TRUCK CRANE OPERATOR): Patient has a long history of GERD. -Protonix 40 mg daily Assessment & Plan (04/25/2020 9:45 AM GASOLINE TRUCK CRANE OPERATOR): Patient has a long history of GERD. -Protonix 40 mg daily Assessment & Plan (04/24/2020 9:48 AM GASOLINE TRUCK CRANE OPERATOR): Patient has a long history of GERD. -Protonix 40 mg daily Assessment & Plan (04/23/2020 10:21 AM GASOLINE TRUCK CRANE OPERATOR): Patient has a long history of GERD. -Protonix 40 mg daily Assessment & Plan (04/21/2020 8:37 AM GASOLINE TRUCK CRANE OPERATOR): Patient has a long history of GERD. -Protonix 40 mg daily Assessment & Plan (04/20/2020 12:05 PM GASOLINE TRUCK CRANE OPERATOR): Patient has a long history of GERD. -Protonix 40 mg daily Assessment & Plan (04/19/2020 9:46 AM GASOLINE TRUCK CRANE OPERATOR): Patient has a long history of GERD. -Protonix 40 mg daily Assessment & Plan (04/18/2020 10:09 AM GASOLINE TRUCK CRANE OPERATOR): Patient has a long history of GERD. -Protonix 40 mg daily Assessment & Plan (04/17/2020 9:31 AM GASOLINE TRUCK CRANE OPERATOR): Patient has a long history of GERD. -Protonix 40 mg daily Assessment & Plan (04/16/2020 11:51 AM GASOLINE TRUCK CRANE OPERATOR): Patient has a long history of GERD. -Protonix 40 mg daily Assessment & Plan (04/14/2020 9:56 AM GASOLINE TRUCK CRANE OPERATOR): Patient has a long history of GERD. -Protonix 40 mg daily Assessment & Plan (04/10/2020 3:25 PM GASOLINE TRUCK CRANE OPERATOR): Continue pantoprazole Assessment & Plan (04/08/2020 3:17 PM GASOLINE TRUCK CRANE OPERATOR): Continue pantoprazole Assessment & Plan (04/07/2020 6:15 AM GASOLINE TRUCK CRANE OPERATOR): Continue pantoprazole Assessment & Plan (04/03/2020 5:54 PM GASOLINE TRUCK CRANE OPERATOR): Patient has a long history of GERD. -Protonix 40 mg daily Hypothyroidism 04/03/2020 Assessment & Plan (05/04/2020 12:54 PM GASOLINE TRUCK CRANE OPERATOR): Patient carries a diagnosis of hypothyroidism for several years. He is currently treated on levothyroxine 75 mcg daily. - Repeat TFT tests in 6 weeks - continue levothyroxine 75 mcg daily Assessment & Plan (05/03/2020 9:56 AM GASOLINE TRUCK CRANE OPERATOR): Patient carries a diagnosis of hypothyroidism for several years. He is currently treated on levothyroxine 75 mcg daily. - Repeat TFT tests in 6 weeks - continue levothyroxine 75 mcg daily Assessment & Plan (05/02/2020 11:57 AM GASOLINE TRUCK CRANE OPERATOR): Patient carries a diagnosis of hyperthyroidism for several years. He is currently treated on levothyroxine 75 mcg daily. - Repeat TFT tests in 6 weeks - continue levothyroxine 75 mcg daily Assessment & Plan (05/01/2020 10:58 AM GASOLINE TRUCK CRANE OPERATOR): Patient carries a diagnosis of hyperthyroidism for several years. He is currently treated on levothyroxine 75 mcg daily. - Repeat TFT tests in 6 weeks - continue levothyroxine 75 mcg daily Assessment & Plan (04/30/2020 12:17 PM GASOLINE TRUCK CRANE OPERATOR): Patient carries a diagnosis of hyperthyroidism for several years. He is currently treated on levothyroxine 75 mcg daily. - Repeat TFT tests in 6 weeks - continue levothyroxine 75 mcg daily Assessment & Plan (04/28/2020 8:00 AM GASOLINE TRUCK CRANE OPERATOR): Patient carries a diagnosis of hyperthyroidism for several years. He is currently treated on levothyroxine 75 mcg daily. - Repeat TFT tests in 6 weeks - continue levothyroxine 75 mcg daily Assessment & Plan (04/27/2020 8:47 AM GASOLINE TRUCK CRANE OPERATOR): Patient carries a diagnosis of hyperthyroidism for several years. He is currently treated on levothyroxine 75 mcg daily. - Repeat TFT tests in 6 weeks - continue levothyroxine 75 mcg daily Assessment & Plan (04/26/2020 10:11 AM GASOLINE TRUCK CRANE OPERATOR): Patient carries a diagnosis of hyperthyroidism for several years. He is currently treated on levothyroxine 75 mcg daily. - Repeat TFT tests in 6 weeks - continue levothyroxine 75 mcg daily Assessment & Plan (04/25/2020 9:45 AM GASOLINE TRUCK CRANE OPERATOR): Patient carries a diagnosis of hyperthyroidism for several years. He is currently treated on levothyroxine 75 mcg daily. - Repeat TFT tests in 6 weeks - continue levothyroxine 75 mcg daily Assessment & Plan (04/24/2020 9:48 AM GASOLINE TRUCK CRANE OPERATOR): Patient carries a diagnosis of hyperthyroidism for several years. He is currently treated on levothyroxine 75 mcg daily. - Repeat TFT tests in 6 weeks - continue levothyroxine 75 mcg daily Assessment & Plan (04/23/2020 10:21 AM GASOLINE TRUCK CRANE OPERATOR): Patient carries a diagnosis of hyperthyroidism for several years. He is currently treated on levothyroxine 75 mcg daily. - Repeat TFT tests in 6 weeks - continue levothyroxine 75 mcg daily Assessment & Plan (04/21/2020 8:37 AM GASOLINE TRUCK CRANE OPERATOR): Patient carries a diagnosis of hyperthyroidism for several years. He is currently treated on levothyroxine 75 mcg daily. - Repeat TFT tests in 6 weeks - continue levothyroxine 75 mcg daily Assessment & Plan (04/20/2020 12:05 PM GASOLINE TRUCK CRANE OPERATOR): Patient carries a diagnosis of hyperthyroidism for several years. He is currently treated on levothyroxine 75 mcg daily. - Repeat TFT tests in 6 weeks - continue levothyroxine 75 mcg daily Assessment & Plan (04/19/2020 9:46 AM GASOLINE TRUCK CRANE OPERATOR): Patient carries a diagnosis of hyperthyroidism for several years. He is currently treated on levothyroxine 75 mcg daily. - Repeat TFT tests in 6 weeks - continue levothyroxine 75 mcg daily Assessment & Plan (04/18/2020 10:09 AM GASOLINE TRUCK CRANE OPERATOR): Patient carries a diagnosis of hyperthyroidism for several years. He is currently treated on levothyroxine 75 mcg daily. - Repeat TFT tests in 6 weeks - continue levothyroxine 75 mcg daily Assessment & Plan (04/17/2020 9:31 AM GASOLINE TRUCK CRANE OPERATOR): Patient carries a diagnosis of hyperthyroidism for several years. He is currently treated on levothyroxine 75 mcg daily. - Repeat TFT tests in 6 weeks - continue levothyroxine 75 mcg daily Assessment & Plan (04/16/2020 11:51 AM GASOLINE TRUCK CRANE OPERATOR): Patient carries a diagnosis of hyperthyroidism for several years. He is currently treated on levothyroxine 75 mcg daily. - Repeat TFT tests in 6 weeks - continue levothyroxine 75 mcg daily Assessment & Plan (04/14/2020 9:57 AM GASOLINE TRUCK CRANE OPERATOR): Patient carries a diagnosis of hyperthyroidism for several years. He is currently treated on levothyroxine 75 mcg daily. - Repeat TFT tests in 6 weeks - continue levothyroxine 75 mcg daily Assessment & Plan (04/10/2020 3:25 PM GASOLINE TRUCK CRANE OPERATOR): 04/02: TSH 6.49, T4 WNL at 1.38 Continue synthroid 75mcg; repeat TFTs 6-8 weeks Assessment & Plan (04/08/2020 3:17 PM GASOLINE TRUCK CRANE OPERATOR): 04/02: TSH 6.49, T4 WNL at 1.38 Continue synthroid 75mcg; repeat TFTs 6-8 weeks Assessment & Plan (04/07/2020 6:16 AM GASOLINE TRUCK CRANE OPERATOR): 04/02: TSH 6.49, T4 WNL at 1.38 Continue synthroid 75mcg; repeat TFTs 6-8 weeks Assessment & Plan (04/10/2020 9:35 PM GASOLINE TRUCK CRANE OPERATOR): Patient carries a diagnosis of hyperthyroidism for several years. He is currently treated on levothyroxine 75 mcg daily. - Repeat TFT tests in 6 weeks - continue levothyroxine 75 mcg daily Hyperlipemia 04/03/2020 Assessment & Plan (05/04/2020 12:55 PM GASOLINE TRUCK CRANE OPERATOR): Has a stated history of hyperlipidemia has been stably treated with atorvastatin 40 mg daily for many years. Patient's LDL low on lipid panel. Notable elevated triglycerides but not fasting sample. - atorvastatin 40 mg daily - fenofibrate 145mg daily Assessment & Plan (05/03/2020 9:56 AM GASOLINE TRUCK CRANE OPERATOR): Has a stated history of hyperlipidemia has been stably treated with atorvastatin 40 mg daily for many years. Patient's LDL low on lipid panel. Notable elevated triglycerides but not fasting sample. - atorvastatin 40 mg daily - fenofibrate 145mg daily Assessment & Plan (05/02/2020 11:57 AM GASOLINE TRUCK CRANE OPERATOR): Has a stated history of hyperlipidemia has been stably treated with atorvastatin 40 mg daily for many years. Patient's LDL low on lipid panel. Notable elevated triglycerides but not fasting sample. - atorvastatin 40 mg daily - fenofibrate 145mg daily Assessment & Plan (05/01/2020 10:58 AM GASOLINE TRUCK CRANE OPERATOR): Has a stated history of hyperlipidemia has been stably treated with atorvastatin 40 mg daily for many years. Patient's LDL low on lipid panel. Notable elevated triglycerides but not fasting sample. - atorvastatin 40 mg daily - tricor 145mg daily Assessment & Plan (04/30/2020 12:17 PM GASOLINE TRUCK CRANE OPERATOR): Has a stated history of hyperlipidemia has been stably treated with atorvastatin 40 mg daily for many years. Patient's LDL low on lipid panel. Notable elevated triglycerides but not fasting sample. - atorvastatin 40 mg daily - tricor 145mg daily Assessment & Plan (04/28/2020 8:01 AM GASOLINE TRUCK CRANE OPERATOR): Has a stated history of hyperlipidemia has been stably treated with atorvastatin 40 mg daily for many years. Patient's LDL low on lipid panel. Notable elevated triglycerides but not fasting sample. - atorvastatin 40 mg daily - tricor 145mg daily Assessment & Plan (04/27/2020 8:47 AM GASOLINE TRUCK CRANE OPERATOR): Has a stated history of hyperlipidemia has been stably treated with atorvastatin 40 mg daily for many years. Patient's LDL low on lipid panel. Notable elevated triglycerides but not fasting sample. - atorvastatin 40 mg daily - tricor 145mg daily Assessment & Plan (04/26/2020 10:11 AM GASOLINE TRUCK CRANE OPERATOR): Has a stated history of hyperlipidemia has been stably treated with atorvastatin 40 mg daily for many years. Patient's LDL low on lipid panel. Notable elevated triglycerides but not fasting sample. - atorvastatin 40 mg daily - tricor 145mg daily Assessment & Plan (04/25/2020 9:45 AM GASOLINE TRUCK CRANE OPERATOR): Has a stated history of hyperlipidemia has [...] daily Assessment & Plan (04/24/2020 9:48 AM GASOLINE TRUCK CRANE OPERATOR): Has a stated history of hyperlipidemia has [...] daily Assessment & Plan (04/23/2020 10:21 AM GASOLINE TRUCK CRANE OPERATOR): Has a stated history of hyperlipidemia has [...] daily Assessment & Plan (04/21/2020 8:38 AM GASOLINE TRUCK CRANE OPERATOR): Has a stated history of hyperlipidemia has [...] daily Assessment & Plan (04/20/2020 12:05 PM GASOLINE TRUCK CRANE OPERATOR): Has a stated history of hyperlipidemia has [...] daily Assessment & Plan (04/19/2020 9:46 AM GASOLINE TRUCK CRANE OPERATOR): Has a stated history of hyperlipidemia has [...] daily Assessment & Plan (04/18/2020 10:09 AM GASOLINE TRUCK CRANE OPERATOR): Has a stated history of hyperlipidemia has [...] daily Assessment & Plan (04/17/2020 9:31 AM GASOLINE TRUCK CRANE OPERATOR): Has a stated history of hyperlipidemia has [...] daily Assessment & Plan (04/16/2020 11:51 AM GASOLINE TRUCK CRANE OPERATOR): Has a stated history of hyperlipidemia has [...] daily Assessment & Plan (04/14/2020 9:56 AM GASOLINE TRUCK CRANE OPERATOR): Has a stated history of hyperlipidemia has [...] daily Assessment & Plan (04/13/2020 9:46 AM GASOLINE TRUCK CRANE OPERATOR): Has a stated history of hyperlipidemia has [...] daily Assessment & Plan (04/10/2020 3:25 PM GASOLINE TRUCK CRANE OPERATOR): Continue atorvastatin 40 Assessment & Plan (04/08/2020 3:17 PM GASOLINE TRUCK CRANE OPERATOR): Continue atorvastatin 40 Assessment & Plan (04/07/2020 6:15 AM GASOLINE TRUCK CRANE OPERATOR): Continue atorvastatin 40 Assessment & Plan (04/12/2020 9:03 AM GASOLINE TRUCK CRANE OPERATOR): Has a stated history of hyperlipidemia has [...] (08/31/2018): Added automatically from request for surgery [id number] Assessment & Plan (09/06/2018 12:49 PM CDT): [...] 04/10/2020 Assessment & Plan (05/04/2020 12:55 PM GASOLINE TRUCK CRANE OPERATOR): Cr 1.3 -> 1.22 resolving. Baseline <1. - encourage fluids - avoid nephrotoxic meds Assessment & Plan (05/03/2020 9:56 AM GASOLINE TRUCK CRANE OPERATOR): Cr 1.3 -> 1.22 resolving. Baseline <1. - encourage fluids - avoid nephrotoxic meds Assessment & Plan (05/02/2020 11:57 AM GASOLINE TRUCK CRANE OPERATOR): Cr 1.3 -> 1.22 resolving. Baseline <1. - encourage fluids - avoid nephrotoxic meds Assessment & Plan (05/01/2020 10:58 AM GASOLINE TRUCK CRANE OPERATOR): Cr 1.3 -> 1.22 resolving. Baseline <1. - encourage fluids - avoid nephrotoxic meds Assessment & Plan (04/19/2020 9:46 AM GASOLINE TRUCK CRANE OPERATOR): Cr 1.3 -> 1.22 resolving. Baseline <1. - encourage fluids - avoid nephrotoxic meds Assessment & Plan (04/18/2020 10:09 AM GASOLINE TRUCK CRANE OPERATOR): Cr 1.3 -> 1.22 resolving. Baseline <1. - encourage fluids - avoid nephrotoxic meds Assessment & Plan (04/16/2020 11:51 AM GASOLINE TRUCK CRANE OPERATOR): Cr 1.3 -> 1.22 resolving. Baseline <1. - encourage fluids - avoid nephrotoxic meds Assessment & Plan (04/14/2020 9:57 AM GASOLINE TRUCK CRANE OPERATOR): Cr 1.3 -> 1.22 resolving. Baseline <1. - encourage fluids - avoid nephrotoxic meds Assessment & Plan (04/13/2020 9:47 AM GASOLINE TRUCK CRANE OPERATOR): Cr 1.3 -> 1.22 resolving. Baseline <1. - encourage fluids - avoid nephrotoxic meds Assessment & Plan (04/12/2020 9:04 AM [employer] OPERATOR): Cr 1.3 -> 1.22 resolving. Baseline <1. - encourage fluids - avoid nephrotoxic meds Diarrhea 04/10/2020 04/20/2020 Assessment & Plan (05/04/2020 12:55 PM [employer] OPERATOR): Patient recently had constipation, was treated with BID miralax and senna- docusate. Was having diarrhea last week so scheduled bowel regimen discontinued. - discontinued daily senna-docusate - miralax PRN Assessment & Plan (05/03/2020 9:56 AM [employer] OPERATOR): Patient recently had constipation, was treated with BID miralax and senna- docusate. Was having diarrhea last week so scheduled bowel regimen discontinued. - discontinued daily senna-docusate - miralax PRN Assessment & Plan (05/01/2020 10:59 AM [employer] OPERATOR): Patient recently had constipation, was treated with BID miralax and senna- docusate. Was having diarrhea last week so scheduled bowel regimen discontinued. - discontinued daily senna-docusate - miralax PRN Assessment & Plan (04/19/2020 9:47 AM [employer] OPERATOR): Patient recently had constipation, was treated with BID miralax and senna- docusate. Was having diarrhea last week so scheduled bowel regimen discontinued. - discontinued daily senna-docusate - miralax PRN Assessment & Plan (04/16/2020 11:52 AM [employer] OPERATOR): Patient recently had constipation, was treated with BID miralax and senna- docusate. Was having diarrhea last week so scheduled bowel regimen discontinued. - discontinue daily senna-docusate - miralax PRN Assessment & Plan (04/14/2020 9:57 AM [employer] OPERATOR): Patient recently had constipation, was treated with BID miralax and senna- docusate. Endorsing nonbloody diarrhea for last 2 days. - discontinue daily senna-docusate - miralax PRN Assessment & Plan (04/10/2020 10:09 PM [employer] OPERATOR): Patient recently had constipation, was treated with BID miralax and senna- docusate. Endorsing nonbloody diarrhea for last 2 days. - discontinue daily senna-docusate - miralax PRN Ventral hernia without obstr uction or gangrene 08/31/2018 04/20/2020 Overview (08/31/2018): Added automatically from request for surgery [id number] Assessment & Plan (09/06/2018 12:51 PM CDT): The procedure along with the risks, benefits, and post operative period were discussed with the patient and his significant other who agree. Fracture of navicular bone of foot 05/16/2015 04/20/2020
--- OUTSIDE RECORDS SUMMARY | 2024-07-04 11:42 | XMS_ITS ---
Author Organization [facility] Address [address] [place] [address] Phone Care Team Providers [employer] Information Clerk Name Role Phone Unavailable Unavailable Unavailable Plan of Treatment Referrals To Diagnosis Pain Management TOM BETH MD - [address] [address] - Other spondylosis, lumbosacral region Note: Bilateral L3, L$, L5 m edial branch blocks (#1) with Fluoroscopy.Hold ASA x 3 days. No Blood Thinners. No PIV/Abx. Last Documented On 2 10:49AM ; [facility] Psychologist Anne Marie Lobo MD Chronic pain s yndrome Note: Evaluation: CBT/OBT fo r Chronic Pain Syndrome, PTSD, Depression w/ Anxiety on meds Last Documented On 2 1:51PM ; [facility] Pain Management [address] [address] - Sacroiliitis, not elsewhere classified Note: Right SI joint steroid injection with fluoroscopy.Not diabetic. No blood thinners. No hold ASA/NSAIDs.F/U in 2 weeks. Last Documented On 3 2:48PM ; [facility] Pain Management TOM BETH MD - [address] [id number] - Pain in left ankle and joints of left foot Note: Left ankle steroid inj ection w/ ultrasound,PErformed same day.F/U in 1 month. Last Documented On 3 2:49PM ; [facility] Pain Management [facility] - [address] [place] [address] - Other spondylosis, lumbosacral region Note: Bilateral L3, L4, L5 m edial branch/dorsal ramus blocks (#1) with fluoroscopy.No blood thinners. Hold ASA x 3 days. not diabetic. No PIV/Abx.Schedule following recovery from left olecranon bursa I&D.F/U in 7-10 days. Last Documented On 3 2:11PM ; [facility] Education and Decision Aids were provided during visit for: Pill Count: Patient did not bring pain medication to appointment for pill count, per policy. Advised in order to continue to safely prescribe opioids, medication must be brought to each appointment Last Documented On 3 3:18PM ; [facility] Pill Count: 74 Appropriate Last Documented On 3 3:18PM ; [facility] Pill Count: Patient did not bring pain medication to appointment for pill count, per policy. Advised in order to continue to safely prescribe opioids, medication must be brought to each appointment Last Documented On 3 9:33AM ; [facility] Pill Count: 74 Appropriate Last Documented On 3 9:33AM ; [facility] Pill Count: Patient did not bring pain medication to appointment for pill count, per policy. Advised in order to continue to safely prescribe opioids, medication must be brought to each appointment Last Documented On 3 1:18PM ; [facility] Pill Count: 74 Appropriate Last Documented On 3 1:18PM ; [facility] Pill Count: Patient did not bring pain medication to appointment for pill count, per policy. Advised in order to continue to safely prescribe opioids, medication must be brought to each appointment Last Documented On 2 8:14AM ; [facility] Pill Count: 74 Appropriate Last Documented On 2 8:18AM ; [facility] Pill Count: Patient did not bring pain medication to appointment for pill count, per policy. Advised in order to continue to safely prescribe opioids, medication must be brought to each appointment Last Documented On 1 9:21AM ; [facility] Assessments Includes: Assessments for all patient encounters Findings Encounter Date Arthralgia of bilateral shou lder region PAIN MANAGEMENT FOLLOW UP with TOM BETH MD 07/02/2022 Last Documented On 3 9:46AM ; [facility] Arthralgia of left ankle PAIN MANAGEMENT FOLLOW UP with TOM BETH MD 07/02/2022 Last Documented On 3 9:46AM ; [facility] Arthralgia of the left ankle/foot PAIN M ANAGEMENT FOLLOW UP with TOM BETH MD 07/02/2022 Last Documented On 3 9:46AM ; [facility] Arthralgia of the left knee/patella/tibia/fibula PAIN MANAGEMENT FOLLOW UP with TOM BETH MD 07/02/2022 Last Documented On 3 9:46AM ; [facility] Arthralgia of the right knee/patella/tibia/fibula PAIN MANAGEMENT FOLLOW UP with TOM BETH MD 07/02/2022 Last Documented On 3 9:46AM ; [facility] Bipolar disorder NOS PAIN MANAGEMENT FOLLOW UP w phillip BETH MD 07/02/2022 Last Documented On 3 9:46AM ; [facility] Cervical postlaminectomy syndrome PAIN M ANAGEMENT FOLLOW UP with TOM BETH MD 07/02/2022 Last Documented On 3 9:46AM ; [facility] Cervical spondylosis PAIN MANAGEMENT FOLLOW UP w phillip BETH MD 07/02/2022 Last Documented On 3 9:46AM ; [facility] Cervicalgia PAIN MANAGEMENT FOLLOW UP with Natalie BETH MD 07/02/2022 Last Documented On 3 9:46AM ; [facility] Cervicothoracic radiculopathy PAIN MANAG EMENT FOLLOW UP with TOM BETH MD 07/02/2022 Last Documented On 3 9:46AM ; [facility] Chronic pain syndrome PAIN MANAGEMENT FOLLOW UP with TOM BETH MD 07/02/2022 Last Documented On 3 9:46AM ; [facility] Chronic post-traumatic stres s disorder following combat PAIN MANAGEMENT FOLLOW UP with TOM BETH MD 07/02/2022 Last Documented On 3 9:46AM ; [facility] DORSALGIA PAIN MANAGEMENT FOLLOW UP with Natalie BETH MD 07/02/2022 Last Documented On 3 9:46AM ; [facility] Drug-induced constipation PAIN MANAGEMENT FOLLOW UP with TOM BETH MD 07/02/2022 Last Documented On 3 9:46AM ; [facility] Hip pain PAIN MANAGEMENT FOLLOW UP with Natalie BETH MD 07/02/2022 Last Documented On 3 9:46AM ; [facility] longterm use of opiate analgesic PAIN M ANAGEMENT FOLLOW UP with TOM BETH MD 07/02/2022 Last Documented On 3 9:46AM ; [facility] Lumbosacral radiculopathy PAIN MANAGEMENT FOLLOW UP with TOM BETH MD 07/02/2022 Last Documented On 3 9:46AM ; [facility] Lumbosacral spondylosis PAIN MANAGEMENT FOLLOW U P with TOM BETH MD 07/02/2022 Last Documented On 3 9:46AM ; [facility] Muscle spasm of back PAIN MANAGEMENT FOLLOW UP w phillip BETH MD 07/02/2022 Last Documented On 3 9:46AM ; [facility] Opioid dependence with continuous use PA IN MANAGEMENT FOLLOW UP with TOM BETH MD 07/02/2022 Last Documented On 3 9:46AM ; [facility] Osteoarthritis of left ankle PAIN MANAGE MENT FOLLOW UP with TOM BETH MD 07/02/2022 Last Documented On 3 9:46AM ; [facility] Right sacroiliitis PAIN MANAGEMENT FOLLOW UP wit donato BETH MD 07/02/2022 Last Documented On 3 9:46AM ; [facility] Arthralgia of bilateral shou lder region PAIN MANAGEMENT FOLLOW UP with TOM BETH MD 05/29/2022 Last Documented On 3 1:45PM ; [facility] Arthralgia of left ankle PAIN MANAGEMENT FOLLOW UP with TOM BETH MD 05/29/2022 Last Documented On 3 1:45PM ; [facility] Arthralgia of the left ankle/foot PAIN M ANAGEMENT FOLLOW UP with TOM BETH MD 05/29/2022 Last Documented On 3 1:45PM ; [facility] Arthralgia of the left knee/patella/tibia/fibula PAIN MANAGEMENT FOLLOW UP with TOM BETH MD 05/29/2022 Last Documented On 3 1:45PM ; [facility] Arthralgia of the right knee/patella/tibia/fibula PAIN MANAGEMENT FOLLOW UP with TOM BETH MD 05/29/2022 Last Documented On 3 1:45PM ; [facility] Bipolar disorder NOS PAIN MANAGEMENT FOLLOW UP w phillip BETH MD 05/29/2022 Last Documented On 3 1:45PM ; [facility] Cervical postlaminectomy syndrome PAIN M ANAGEMENT FOLLOW UP with TOM BETH MD 05/29/2022 Last Documented On 3 1:45PM ; [facility] Cervical spondylosis PAIN MANAGEMENT FOLLOW UP w phillip BETH MD 05/29/2022 Last Documented On 3 1:45PM ; [facility] Cervicalgia PAIN MANAGEMENT FOLLOW UP with Natalie BETH MD 05/29/2022 Last Documented On 3 1:45PM ; [facility] Cervicothoracic radiculopathy PAIN MANAG EMENT FOLLOW UP with TOM BETH MD 05/29/2022 Last Documented On 3 1:45PM ; [facility] Chronic pain syndrome PAIN MANAGEMENT FOLLOW UP with TOM BETH MD 05/29/2022 Last Documented On 3 1:45PM ; [facility] Chronic post-traumatic stres s disorder following combat PAIN MANAGEMENT FOLLOW UP with TOM BETH MD 05/29/2022 Last Documented On 3 1:45PM ; [facility] DORSALGIA PAIN MANAGEMENT FOLLOW UP with Natalie BETH MD 05/29/2022 Last Documented On 3 1:45PM ; [facility] Drug-induced constipation PAIN MANAGEMENT FOLLOW UP with TOM BTEH MD 05/29/2022 Last Documented On 3 1:45PM ; [facility] Hip pain PAIN MANAGEMENT FOLLOW UP with Natalie BETH MD 05/29/2022 Last Documented On 3 1:45PM ; [facility] longterm use of opiate analgesic PAIN M ANAGEMENT FOLLOW UP with TOM BETH MD 05/29/2022 Last Documented On 3 1:45PM ; [facility] Lumbosacral radiculopathy PAIN MANAGEMENT FOLLOW UP with TOM BETH MD 05/29/2022 Last Documented On 3 1:45PM ; [facility] Lumbosacral spondylosis PAIN MANAGEMENT FOLLOW U P with TOM BETH MD 05/29/2022 Last Documented On 3 1:45PM ; [facility] Muscle spasm of back PAIN MANAGEMENT FOLLOW UP w phillip BETH MD 05/29/2022 Last Documented On 3 1:45PM ; [facility] Opioid dependence with continuous use PA IN MANAGEMENT FOLLOW UP with TOM BETH MD 05/29/2022 Last Documented On 3 1:45PM ; [facility] Osteoarthritis of left ankle PAIN MANAGE MENT FOLLOW UP with TOM BETH MD 05/29/2022 Last Documented On 3 1:45PM ; [facility] Right sacroiliitis PAIN MANAGEMENT FOLLOW UP vishal BETH MD 05/29/2022 Last Documented On 3 1:45PM ; [facility] Arthralgia of bilateral shou lder region PAIN MANAGEMENT FOLLOW UP with TOM BETH MD 05/01/2022 Last Documented On 3 5:46PM ; [facility] Arthralgia of the left ankle/foot PAIN M ANAGEMENT FOLLOW UP with TOM BETH MD 05/01/2022 Last Documented On 3 5:46PM ; [facility] Arthralgia of the left knee/patella/tibia/fibula PAIN MANAGEMENT FOLLOW UP with TOM BETH MD 05/01/2022 Last Documented On 3 5:46PM ; [facility] Arthralgia of the right knee/patella/tibia/fibula PAIN MANAGEMENT FOLLOW UP with TOM BETH MD 05/01/2022 Last Documented On 3 5:46PM ; [facility] Bipolar disorder NOS PAIN MANAGEMENT FOLLOW UP w phillip BETH MD 05/01/2022 Last Documented On 3 5:46PM ; [facility] Cervical postlaminectomy syndrome PAIN M ANAGEMENT FOLLOW UP with TOM BETH MD 05/01/2022 Last Documented On 3 5:46PM ; [facility] Cervical spondylosis PAIN MANAGEMENT FOLLOW UP w phillip BETH MD 05/01/2022 Last Documented On 3 5:46PM ; [facility] Cervicalgia PAIN MANAGEMENT FOLLOW UP with Natalie BETH MD 05/01/2022 Last Documented On 3 5:46PM ; [facility] Cervicothoracic radiculopathy PAIN MANAG EMENT FOLLOW UP with TOM BETH MD 05/01/2022 Last Documented On 3 5:46PM ; [facility] Chronic pain syndrome PAIN MANAGEMENT FOLLOW UP with TOM BETH MD 05/01/2022 Last Documented On 3 5:46PM ; [facility] Chronic post-traumatic stres s disorder following combat PAIN MANAGEMENT FOLLOW UP with TOM BETH MD 05/01/2022 Last Documented On 3 5:46PM ; [facility] DORSALGIA PAIN MANAGEMENT FOLLOW UP with Natalie BETH MD 05/01/2022 Last Documented On 3 5:46PM ; [facility] Drug-induced constipation PAIN MANAGEMENT FOLLOW UP with TOM BETH MD 05/01/2022 Last Documented On 3 5:46PM ; [facility] Hip pain PAIN MANAGEMENT FOLLOW UP with Natalie BETH MD 05/01/2022 Last Documented On 3 5:46PM ; [facility] 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 PAIN M ANAGEMENT FOLLOW UP with TOM BETH MD 05/01/2022 Last Documented On 3 5:46PM ; [facility] Lumbosacral radiculopathy PAIN MANAGEMENT FOLLOW UP with TOM BETH MD 05/01/2022 Last Documented On 3 5:46PM ; [facility] Lumbosacral spondylosis PAIN MANAGEMENT FOLLOW U P with TOM BETH MD 05/01/2022 Last Documented On 3 5:46PM ; [facility] Muscle spasm of back PAIN MANAGEMENT FOLLOW UP w ith TOM BETH MD 05/01/2022 Last Documented On 3 5:46PM ; [facility] Opioid dependence with continuous use PA IN MANAGEMENT FOLLOW UP with TOM BETH MD 05/01/2022 Last Documented On 3 5:46PM ; [facility] Right sacroiliitis PAIN MANAGEMENT FOLLOW UP wit h TOM BETH MD 05/01/2022 Last Documented On 3 5:46PM ; [facility] Arthralgia of bilateral shou lder region PAIN MANAGEMENT FOLLOW UP with TOM BETH MD 04/11/2021 Last Documented On 2 9:22AM ; [facility] Arthralgia of the left ankle/foot PAIN M ANAGEMENT FOLLOW UP with TOM BETH MD 04/11/2021 Last Documented On 2 9:22AM ; [facility] Arthralgia of the left knee/patella/tibia/fibula PAIN MANAGEMENT FOLLOW UP with TOM BETH MD 04/11/2021 Last Documented On 2 9:22AM ; [facility] Arthralgia of the right knee/patella/tibia/fibula PAIN MANAGEMENT FOLLOW UP with TOM BETH MD 04/11/2021 Last Documented On 2 9:22AM ; [facility] Bipolar disorder NOS PAIN MANAGEMENT FOLLOW UP w phillip BETH MD 04/11/2021 Last Documented On 2 9:22AM ; [facility] Cervical postlaminectomy syndrome PAIN M ANAGEMENT FOLLOW UP with TOM BETH MD 04/11/2021 Last Documented On 2 9:22AM ; [facility] Cervical spondylosis PAIN MANAGEMENT FOLLOW UP w phillip BETH MD 04/11/2021 Last Documented On 2 9:22AM ; [facility] Cervicalgia PAIN MANAGEMENT FOLLOW UP with Natalie BETH MD 04/11/2021 Last Documented On 2 9:22AM ; [facility] Cervicothoracic radiculopathy PAIN MANAG EMENT FOLLOW UP with TOM BETH MD 04/11/2021 Last Documented On 2 9:22AM ; [facility] Chronic pain syndrome PAIN MANAGEMENT FOLLOW UP with TOM BETH MD 04/11/2021 Last Documented On 2 9:22AM ; [facility] Chronic post-traumatic stres s disorder following combat PAIN MANAGEMENT FOLLOW UP with TOM BETH MD 04/11/2021 Last Documented On 2 9:22AM ; [facility] DORSALGIA PAIN MANAGEMENT FOLLOW UP with Natalie BETH MD 04/11/2021 Last Documented On 2 9:22AM ; [facility] Drug-induced constipation PAIN MANAGEMENT FOLLOW UP with TOM BETH MD 04/11/2021 Last Documented On 2 9:22AM ; [facility] 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 PAIN M ANAGEMENT FOLLOW UP with TOM BETH MD 04/11/2021 Last Documented On 2 9:22AM ; [facility] Lumbosacral radiculopathy PAIN MANAGEMENT FOLLOW UP with TOM BETH MD 04/11/2021 Last Documented On 2 9:22AM ; [facility] Lumbosacral spondylosis PAIN MANAGEMENT FOLLOW U P with TOM BETH MD 04/11/2021 Last Documented On 2 9:22AM ; [facility] Muscle spasm of back PAIN MANAGEMENT FOLLOW UP w phillip BETH MD 04/11/2021 Last Documented On 2 9:22AM ; [facility] Opioid dependence with continuous use PA IN MANAGEMENT FOLLOW UP with TOM BETH MD 04/11/2021 Last Documented On 2 9:22AM ; [facility] Arthralgia of bilateral shou lder region PAIN MANAGEMENT NEW CONSULT with TOM BETH MD 02/28/2021 Last Documented On 1 1:01PM ; [facility] Arthralgia of the left ankle/foot PAIN M ANAGEMENT NEW CONSULT with TOM BETH MD 02/28/2021 Last Documented On 1 1:01PM ; [facility] Arthralgia of the left knee/patella/tibia/fibula PAIN MANAGEMENT NEW CONSULT with TOM BETH MD 02/28/2021 Last Documented On 1 1:01PM ; [facility] Arthralgia of the right knee/patella/tibia/fibula PAIN MANAGEMENT NEW CONSULT with TOM BETH MD 02/28/2021 Last Documented On 1 1:01PM ; [facility] Bipolar disorder NOS PAIN MANAGEMENT NEW CONSULT with TOM BETH MD 02/28/2021 Last Documented On 1 1:01PM ; [facility] Cervical postlaminectomy syndrome PAIN M ANAGEMENT NEW CONSULT with TOM BETH MD 02/28/2021 Last Documented On 1 1:01PM ; [facility] Cervical spondylosis PAIN MANAGEMENT NEW CONSULT with TOM BETH MD 02/28/2021 Last Documented On 1 1:01PM ; [facility] Cervicalgia PAIN MANAGEMENT NEW CONSULT with TOM BETH MD 02/28/2021 Last Documented On 1 1:01PM ; [facility] Cervicothoracic radiculopathy PAIN MANAG EMENT NEW CONSULT with TOM BETH MD 02/28/2021 Last Documented On 1 1:01PM ; [facility] Chronic pain syndrome PAIN MANAGEMENT NEW CONSUL T with TOM BETH MD 02/28/2021 Last Documented On 1 1:01PM ; [facility] Chronic post-traumatic stres s disorder following combat PAIN MANAGEMENT NEW CONSULT with TOM BETH MD 02/28/2021 Last Documented On 1 1:01PM ; [facility] DORSALGIA PAIN MANAGEMENT NEW CONSULT with TOM BETH MD 02/28/2021 Last Documented On 1 1:01PM ; [facility] Drug-induced constipation PAIN MANAGEMEN T NEW CONSULT with TOM BETH MD 02/28/2021 Last Documented On 1 1:01PM ; [facility] longterm use of opiate analgesic PAIN M ANAGEMENT NEW CONSULT with TOM BETH MD 02/28/2021 Last Documented On 1 1:01PM ; [facility] Lumbosacral radiculopathy PAIN MANAGEMEN T NEW CONSULT with TOM EBTH MD 02/28/2021 Last Documented On 1 1:01PM ; [facility] Lumbosacral spondylosis PAIN MANAGEMENT NEW CONS ULT with TOM BETH MD 02/28/2021 Last Documented On 1 1:01PM ; [facility] Muscle spasm of back PAIN MANAGEMENT NEW CONSULT with TOM BETH MD 02/28/2021 Last Documented On 1 1:01PM ; [facility] Opioid dependence with continuous use PA IN MANAGEMENT NEW CONSULT with TOM BETH MD 02/28/2021 Last Documented On 1 1:01PM ; [facility] Instructions Includes: Instructions for all patient encounters Education and Decision Aids were provided during visit for: Pill Count: Patient did not bring pain medication to appointment for pill count, per policy. Advised in order to continue to safely prescribe opioids, medication must be brought to each appointment Last Documented On 3 3:18PM ; [facility] Pill Count: 74 Appropriate Last Documented On 3 3:18PM ; [facility] Pill Count: Patient did not bring pain medication to appointment for pill count, per policy. Advised in order to continue to safely prescribe opioids, medication must be brought to each appointment Last Documented On 3 9:33AM ; [facility] Pill Count: 74 Appropriate Last Documented On 3 9:33AM ; [facility] Pill Count: Patient did not bring pain medication to appointment for pill count, per policy. Advised in order to continue to safely prescribe opioids, medication must be brought to each appointment Last Documented On 3 1:18PM ; [facility] Pill Count: 74 Appropriate Last Documented On 3 1:18PM ; [facility] Pill Count: Patient did not bring pain medication to appointment for pill count, per policy. Advised in order to continue to safely prescribe opioids, medication must be brought to each appointment Last Documented On 2 8:14AM ; [facility] Pill Count: 74 Appropriate Last Documented On 2 8:18AM ; [facility] Pill Count: Patient did not bring pain medication to appointment for pill count, per policy. Advised in order to continue to safely prescribe opioids, medication must be brought to each appointment Last Documented On 1 9:21AM ; [facility] Medical Equipment - Implanted Devices Includes: Current and historical Devices No Medical Equipment Recorded Medications Includes: Current and historical Medications Current Medications (continue as prescribed) Ambien 10 MG Oral Tablet 05/29/2022 Provider: Diagnosis: Last Documented On 05/29/2022 9:44AM By Ar COX ; [facility] Pregabalin 50 MG Oral Capsule 05/01/2022 Provider: Diagnosis: 50mg BID Last Documented On 05/01/2022 1:59PM By Freida Britt RN ; [facility] Rimegepant Sulfate 75 MG Oral Tablet Disintegrating Provider: Diagnosis: 75mg daily prn for migraine [place] Last Documented On 05/01/2022 2:00PM By Freida Britt RN ; [facility] traMADol HCl 50 MG Oral Tablet 05/01/2022 Provider: Diagnosis: 1 tab po q 6 hrs prn Last Documented On 05/01/2022 2:01PM By Freida Britt RN ; [facility] Effexor XR 150 MG Oral Capsule Extended Release 24 Alexandra r 05/01/2022 Provider: Diagnosis: 1 daily Last Documented On 05/01/2022 2:02PM By Freida Britt RN ; [facility] rOPINIRole HCl 1 MG Oral Tablet 05/01/2022 Provider: Diagnosis: TID prn Last Documented On 05/01/2022 2:02PM By Freida Britt RN ; [facility] Prazosin HCl 1 MG Oral Capsule 05/01/2022 Provider: Diagnosis: Last Documented On 05/01/2022 1:59PM By Freida Britt RN ; [facility] QUEtiapine Fumarate 100 MG Oral Tablet 05/01/2022 Pr ovider: Diagnosis: Last Documented On 05/01/2022 1:58PM By Freida Britt RN ; [facility] Cyclobenzaprine HCl 10 MG Oral Tablet 05/01/2022 Pro vider: Diagnosis: 1 tab po TID prn for muscle spasms Last Documented On 05/01/2022 1:58PM By Freida Britt RN ; [facility] Loreev XR 1 MG Oral Capsule ER 24 Hour Sprinkle 2022 Provider: Diagnosis: Last Documented On 05/01/2022 1:35PM By Ar COX ; [facility] Venlafaxine HCl ER 150 MG Or al Capsule Extended Release 24 Hour 02/28/2021 Provider: Diagnosis: Last Documented On 02/28/2021 9:15AM By Ar COX ; [facility] Levothyroxine Sodium 75 MCG Oral Capsule 02/28/2021 Provider: Diagnosis: Last Documented On 02/28/2021 9:14AM By Ar COX ; [facility] Past Medications on file Cyclobenzaprine HCl 10 MG Oral Tablet 06/20/2022 - 06/25/2022 Provider: TOM BETH MD Diagnosis: Dorsalgia, unspecified 1 tab po TID prn for muscle spasms Last Documented On 06/20/2022 12:32PM By Tom Beth MD ; [facility] traZODone HCl 50 MG Oral Tablet 05/01/2022 - Provider: Diagnosis: 1 tab po at HS Last Documented On 05/29/2022 9:44AM By Ar COX ; [facility] HYDROcodone-Acetaminophen 10 -325 MG Oral Tablet 05/02/2021 - 05/01/2022 Provider: TOM BETH MD Diagnosis: Chronic pain syndrome 1 po q 6-8 hours prn/max 2 tabs per 24 hours Last Documented On 05/01/2022 1:36PM By Ar COX ; [facility] HYDROcodone-Acetaminophen 10 -325 MG Oral Tablet 04/02/2021 - 05/01/2021 Provider: JACOB SCHAFER BANNER Diagnosis: Chronic pain syndrome 1 po q 6-8 hours prn/max 3 per 24 hours Last Documented On 05/02/2021 7:22AM By Tom Beth MD ; [facility] Atorvastatin Calcium 40 MG Oral Tablet 02/28/2021 - Provider: Diagnosis: Last Documented On 05/01/2022 1:34PM By Ar COX ; [facility] [place] Carbonate 300 MG Oral Tablet 02/28/2021 - 11/2022 Provider: Diagnosis: Last Documented On 05/01/2022 1:35PM By Ar COX ; [facility] amLODIPine Besylate 5 MG Oral Tablet 02/28/2021 - 11/2022 Provider: Diagnosis: Last Documented On 05/01/2022 1:34PM By Ar COX ; [facility] Lisinopril 20 MG Oral Tablet 02/28/2021 - 05/01/2022 P rovider: Diagnosis: Last Documented On 05/01/2022 1:35PM By Ar COX ; [facility] Baclofen 10 MG Oral Tablet 02/28/2021 - 05/01/2022 Pro vider: Diagnosis: Last Documented On 05/01/2022 1:34PM By Ar COX ; [facility] HYDROcodone-Acetaminophen 10-325 MG Oral Tablet 02/28/2021 - 05/01/2022 Provider: Diagnosis: 1 every 4 to 6 hrs as needed Last Documented On 05/01/2022 1:34PM By Ar COX ; [facility] LORazepam 1 MG Oral Tablet 02/28/2021 - 05/01/2022 Pro vider: Diagnosis: 1-3 daily as needed Last Documented On 05/01/2022 1:35PM By Ar COX ; [facility] Adult Aspirin EC Low Strengt h 81 MG Oral Tablet Delayed Release 02/28/2021 - 05/01/2022 Provider: Diagnosis: Last Documented On 05/01/2022 1:34PM By Ar COX ; [facility] HYDROcodone-Acetaminophen 10 -325 MG Oral Tablet 02/28/2021 - 04/02/2021 Provider: TOM BETH MD Diagnosis: Chronic pain syndrome One tablet every 4-6 hours f our times a day as needed pain, max 4 per day Last Documented On 2 5:26PM By JACOB SCHAFER BANNER ; [facility] OLANZapine 20 MG Oral Tablet 02/28/2021 - 05/01/2022 P rovider: Diagnosis: 1 hs Last Documented On 05/01/2022 1:36PM By Ar COX ; [facility] Medications Administered Includes: Administered Medications in patient's chart Medications Administered Diagnosis Date Pro vider Sensorcaine 0.5% IJ SOLN 05/29/2022 GABINO BETH MD administered by Dr. Beth Last Documented On 3 11:16AM By Candie Parada RN ; [facility] dexAMETHasone Sodium Phosphate 10 MG/ML IJ SOLN 05/29/2022 TOM BETH MD administered by Dr. Beth Last Documented On 3 11:15AM By Candie Parada RN ; [facility] Sodium Chloride 0.9% IJ SOLN 05/29/2022 TOM BETH MD administered by Dr. Beth for local Last Documented On 3 11:14AM By Candie Parada RN ; [facility] Xylocaine 1% IJ SOLN 05/29/2022 TOM BETH MD administered by Dr. Beth for local Last Documented On 3 11:13AM By Candie Parada RN ; [facility] Results Includes: Results from 07/05/2023 through 07/04/2024 No Results Recorded For Specified Dates History of Present Illness History of Present Illness not supported for this document type No History of Present Illness Recorded Social History Description Last Updated Tobacco non-user 02/28/2021 Last Documented On 1 1:01PM ; [facility] No recent change in sleep 02/28/2021 Last Documented On 1 1:01PM ; [facility] [PHQ-2] Patient Health Questionnaire 2 i tem total score: 8 (Scale: 0-6) 02/28/2021 Last Documented On 1 1:01PM ; [facility] Difficulty walking 02/28/2021 Last Documented On 1 1:01PM ; [facility] No consumption of alcohol 02/28/2021 Last Documented On 1 1:01PM ; [facility] Not using drugs 02/28/2021 Last Documented On 1 1:01PM ; [facility] Smoking Status Unknown Procedures and Surgical History Surgical History Last Updated No Pacemaker 02/28/2021 Last Documented On 1 1:01PM ; [facility] Medical History Includes: Medical History in patient's chart Description Last Updated Blood pressure was high 02/28/2021 Last Documented On 1 1:01PM ; [facility] Hypertension 02/28/2021 Last Documented On 1 1:01PM ; [facility] No exposure to a contagious disease 11/2020 Last Documented On 1 1:01PM ; 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 Moderate to severe pain 02/28/2021 Last Documented On 1 1:01PM ; [facility] No Pain Pump 02/28/2021 Last Documented On 1 1:01PM ; [facility] No Spinal cord stimulator 02/28/2021 Last Documented On 1 1:01PM ; [facility] Other method: 02/28/2021 Last Documented On 1 1:01PM ; [facility] Physical therapy 02/28/2021 Last Documented On 1 1:01PM ; [facility] Please list all illnesses/co nditions you have been diagnosed with: Bi polar manic depressed colon cancer 02/28/2021 Last Documented On 1 1:01PM ; [facility] Please list all surgeries: Dec colos gabby Apr 2015 ankle Jan 2021 ankle 02/28/2021 Last Documented On 1 1:01PM ; [facility] Surgery 02/28/2021 Last Documented On 1 1:01PM ; [facility] Uses a cane for support 02/28/2021 Last Documented On 1 1:01PM ; [facility] Uses a Knee Brace 02/28/2021 Last Documented On 1 1:01PM ; [facility] Family History Includes: Family History in patient's chart Description Last Updated Fraternal history of Arthritis Last Documented On 1 1:01PM ; [facility] Maternal history of family history of is chemic heart disease 02/28/2021 Last Documented On 1 1:01PM ; [facility] Reported family history of seizures 11/2020 Last Documented On 1 1:01PM ; [facility] Review of Systems Review of Systems not [...] Active Last Documented On 07/02/2022 3:31PM ; [facility] Note: Blurred vision BEES Allergy 05/01/2022 Active Last Documented On 3 3:31PM ; [facility] Bactrim Allergy Skin Rashes / Eruption of skin 3 Active Last Documented On 3 3:31PM ; [facility] Insurance Includes: Active Insurance Policies Plan Name Member ID Group # Subscriber Relationship Effect vini Dates 1 - [facility] [id number] AILEEN HURD Self 2 - MEDICAID OF [place] MEDICARE SECOND [id number] AILEEN Serrano Clinical Notes Includes: Signed Clinical Notes starting from 04/11/2022 No Clinical Notes Recorded
== END 2024-07-04 12:13 | disposition home or self-care (01) ==
PROVIDERS: Emergency Provider Emergency Medicine; PCP Physician Assistant
DX: J40 Bronchitis, not specified as acute or chronic (principal); I10 Essential (primary) hypertension; E03.9 Hypothyroidism, unspecified; E78.5 Hyperlipidemia, unspecified; Z85.038 Personal history of other malignant neoplasm of large intestine; Z87.891 Personal history of nicotine dependence; Z20.822 Contact with and (suspected) exposure to COVID-19
CPT/HCPCS: 36415; 71046; 71250; 80053; 83735; 83880; 84484; 85025; 87040; 87637; 93005; 94640; 99284

== ENCOUNTER 2024-09-22 09:01 | Emergency (ER) | payer MEDICARE, MEDICAID, SELFPAY ==
[2024-09-22] VITALS (27 sets, daily range): BP systolic 112–143; BP diastolic 70–84; PULSE 53–72; RESP 9–24; TEMP 36.1–36.3; O2SAT 92–100
--- NOTE | ~2024-09-22 | CT_ITS ---
EXAMINATION: CTA chest PE protocol DATE: 09/22/2024 11:09 INDICATION: Shortness of breath with elevated d-dimer. TECHNIQUE: Computed tomography (CT) pulmonary angiogram of the chest was performed with 100 mL Omnipa que-350 intravenous contrast. Additional 3D reconstructions utilizing coronal maximum intensity proje ction (MIP) were performed. Automated exposure control and iterative reconstruction technique were em ployed. The dose-length product was 293.22 mGy-cm. COMPARISON: None FINDINGS: No pulmonary embolism. Minimal dependent atelectasis in both lungs. Mild elevation the left hemidiaph ragm with small region of anterior basilar atelectasis in the left lower lobe and mild discoid atelec tasis in the lingula. No pneumonia, pulmonary edema, pleural effusion or pneumothorax. Indeterminate 4 mm nodules at the superior segment of the right lower lobe. The couple additional 2 mm nodules in t he right upper and right lower lobes. Heart size is normal. No pericardial effusion. Thoracic aorta i s normal in caliber with no dissection. There is reflux of a small amount of contrast into the inferi or vena cava and hepatic veins which can be seen with tricuspid regurgitation. A few small nonobstruc ting renal stones measuring up to 4 mm at the visualized upper pole of the right kidney. Mild to mode rate thoracic spondylosis with minimal anterior wedging of a few mid thoracic vertebral bodies. Parti ally visualized plate and screw fixation for C6-C7 anterior spinal fusion. IMPRESSION: 1. No pulmonary embolism or other acute cardiopulmonary disease. 2. Mild elevation left hemidiaphragm with associated mild left basilar atelectasis. 3. A few small pulmonary nodules the largest measuring 4 mm in the right lower lobe nodule. If the pa tient is low risk for lung cancer, no follow-up is needed. If the patient is high risk (i.e., history of smoking or asbestos or significant radiation exposure), optional follow-up chest CT could be cons idered at 12 months. 4. Nonobstructing right nephrolithiasis. Reviewed, dictated and finalized at location B. IMPRESSION: 1. No pulmonary embolism or other acute cardiopulmonary disease. 2. Mild elevation left hemidiaphragm with associated mild left basilar atelecta sis. 3. A few small pulmonary nodules the largest measuring 4 mm in the right lower lobe nodule. If the patient is low risk for lung cancer, no follow-up is needed . If the patient is high risk (i.e., history of smoking or asbestos or signific ant radiation exposure), optional follow-up chest CT could be considered at 12 months. 4. Nonobstructing right nephrolithiasis.
--- NOTE | ~2024-09-22 | XR_ITS ---
CHEST RADIOGRAPH CLINICAL HISTORY: shortness of breath . COMPARISON: 07/04/2024 TECHNIQUE: Single portable view of the chest. FINDINGS The cardiomediastinal silhouette is unremarkable. The lungs are clear. IMPRESSION: No focal infiltrate or effusion. Reviewed, dictated and finalized at location A.
--- NOTE | ~2024-09-22 | CT_ITS ---
EXAMINATION: CT brain wo con DATE: 09/22/2024 10:05 INDICATION: Syncope TECHNIQUE: Computed tomography (CT) of the head was performed without intravenous contrast. Sagittal and coronal reconstructions were performed. The mA was adjusted according to patient size. Iterative reconstruction technique was employed. The dose-length product was 681.00 mGy-cm. COMPARISON: head CT dated 07/30/2023 FINDINGS: No acute intracranial hemorrhage, acute infarction or abnormal extra axial fluid collection. Ventricl es are normal and symmetric. No mass/mass effect. Minimal mucoperiosteal thickening the bilateral eth moid sinuses. The orbits and mastoid air cells are normal. IMPRESSION: 1. Normal brain. No acute intracranial process. Reviewed, dictated and finalized at location B.
--- OUTSIDE RECORDS SUMMARY | 2024-09-22 09:06 | XMS_ITS | Clinical Summary ---
Author Organization [facility] Facility Address [address] [address] Care Team Providers Care Boiler Control Room Operator Name Role Phone Kevin Meyer Primary Care Provider [phone] Allergies Active Allergy Reactions Criticality Noted Date [...] 03/08/2015 Insurance Medicare Medicaid [place] Care Teams Boiler Control Room Operator Relationship Specialty Start Date End Date Kevin Meyer PA [address] [place] [address] PCP - General Internal Medicine 10/20/18
--- OUTSIDE RECORDS SUMMARY | 2024-09-22 09:06 | XMS_ITS ---
Author Organization Unknown Address [address] [place] [phone] Phone Care Team Providers Care Help Desk Agent Name Role Phone ROBBIE CEJA Attending Unavailable [...] em Smoking History Never smoker (Never Smoked) [id number] SNOMED CT Sex Male Hospital Discharge Instructions [...]
--- OUTSIDE RECORDS SUMMARY | 2024-09-22 09:06 | XMS_ITS ---
Author Organization Unknown Address [address] [place], [place] [id number] Phone Care Team Providers Care Highway Patrol Officer Name Role Phone LIBRA AMINA Attending Unavailable [...] DIFF - Collect Date/T nadia: 08/05/2023 10:34 [facility] ID: [id number] [address] [place], [place], [id number] LOINC: 24807-6 Test Value Unit Reference Range Code Code System Flag WBC 7.5 10^3uL L=4.8 H=10.8 RBC 4.53 10^6uL L=4.60 H=6.20 L HEMOGLOBIN 14.1 g/dL L=14.0 H=18.0 718-7 LOINC HEMATOCRIT 41.5 VOL% L=42.0 H=52.0 4544-3 LOINC L MCV 91.6 fL L=80.0 H=94.0 MCH 31.1 pg L=27.0 H=32.0 MCHC 34.0 g/dL L=32.0 H=36.0 PLATELETS 242 10^3uL L=100 H=400 24022-3 LOINC RDW 13.1 % L=11.7 H=15.5 %GRAN 64.6 % L=40.0 H=70.0 92862-3 LOINC %LYMPH 18.1 % L=20.0 H=45.0 736-9 LOINC L %MONO 11.6 % L=2.0 H=10.0 45558-6 LOINC H %EOS 3.6 % L=0.0 H=6.0 713-8 LOINC %BASO 0.8 % L=0.0 H=3.0 706-2 LOINC #NEUT 4.9 10^3uL L=1.9 H=7.6 99229-0 LOINC #LYMPH 1.4 10^3uL L=0.9 H=4.9 09547-0 LOINC #MONO 0.9 10^3uL L=0.1 H=0.9 06653-1 LOINC #EOS 0.3 10^3uL L=0.0 H=0.6 712-0 LOINC #BASO 0.06 10^3uL L=0.00 H=0.10 35144-5 LOINC #IM GRANS 0.1 10^3uL L=0.0 H=7.0 45591-5 LOINC %IM GRANS 1.3 % L=0.0 H=5.0 89082-0 LOINC %NRB 0.0 L=0.0 H=0.2 65515-8 LOINC #NRB 0.000 L=0.000 H=0.012 06824-8 LOINC MANUAL DIFF NOT INDICATED RBC MORPH NOT INDICATED HGB A1C -GLYCOHEMOGLOBIN - C ollect Date/Time: 08/05/2023 10:34 [facility] ID: [id number] [place], [place], [id number] LOINC: 4548-4 Test Value Unit Reference Range Code Code System Flag HGBA1C 5.9 % 4548-4 LOINC LIVER PROFILE - Collect Date /Time: 08/05/2023 10:34 [facility] ID: [id number] [place], [place], [id number] LOINC: 82624-4 Test Value Unit Reference Range Code Code [...] PANEL - Collect Date/T nadia: 08/05/2023 10:34 [facility] ID: [id number] [place], [place], [id number] LOINC: 87877-3 Test Value Unit Reference Range Code Code System Flag FASTING NO CHOLESTEROL 256 mg/dL L=0 H=200 2093-3 LOINC H TRIGLYCERIDE 175 mg/dL L=0 H=150 2571-8 LOINC H HDL 52 mg/dL L=40 H=60 2085-9 LOINC LDL 156 mg/dL 2088-1 LOINC SEROTONIN - Collect Date/Lux e: 08/05/2023 10:34 [facility] ID: [id number] [place], [place], [id number] LOINC: 29868-4 Test Value Unit Reference Range Code Code System Flag Serotonin, Serum 18 31-207 24381-1 LOINC L BASIC METABOLIC PANEL - Jairo ect Date/Time: 08/05/2023 10:34 [facility] ID: [id number] [place], [place], [id number] LOINC: 12538-4 Test Value Unit Reference Range Code Code System Flag FASTING NO BUN 11 mg/dL L=7 H=20 3094-0 LOINC CREATININE 1.20 mg/dL L=0.66 H=1.25 2160-0 LOINC GLUCOSE 113 mg/dL L=74 H=106 2345-7 LOINC H CALCIUM 9.3 mg/dL L=8.3 H=10.5 46749-7 LOINC SODIUM 132 mmol/L L=132 H=144 2951-2 LOINC POTASSIUM 3.9 mmol/L L=3.5 H=5.1 2823-3 LOINC CHLORIDE 94 mmol/L L=98 H=107 2075-0 LOINC L CO2 31.0 mmol/L L=22.0 H=30.0 8-9 LOINC H ANION GAP 11 L=10 H=20 91422-0 LOINC BUN/CREAT 9.2 3097-3 LOINC AGE 58 76402-6 LOINC eGFR NON-AFR 66 ml/min eGFR AFR AMER 80 ml/min Social History Type Status Start Date End Date Code Code Syst em Smoking History Never smoker (Never Smoked) [id number] SNOMED CT Sex Male Hospital Discharge Instructions [...]
--- OUTSIDE RECORDS SUMMARY | 2024-09-22 09:07 | XMS_ITS | Encounter Summary ---
Author Organization [facility] [employer] Address [address] [place] [address] Care Team Providers Care Hairspring Inspector Name Role Phone Kevin Meyer Primary Care Provider [phone] Encounter Details Date Type Department Care Team ([facility] Contact Info) Description 09/21/2024 Orders Only [facility] Oncology and Hematology [facility] [address] [place] [address] Jorden Serrano MD [address] [place], [place] [address] [address] [place] [phone] Social History Tobacco Use Types Packs/Day Years [...] Encounters Date Type Department Care Team (Late Contact Info) Description 10/11/2024 2:15 PM CDT Office Visit [facility] Oncology and Hematology [facility] [address] [place] [address] Jorden Serrano MD [facility] [employer] [address] [place] [phone] documented as of this encounter Procedures Procedure Name Priority Date/Time Associated Diagnosis Comments SEROTONIN LEVEL Routine 09/09/2024 7:14 AM CDT documented in this encounter Results * SEROTONIN LEVEL (09/09/2024 7:14 AM CDT) Blood us Jorden Serrano MD CHEMISTRY ORDERABLES Final Resu lt documented in this encounter Visit Diagnoses Not on filedocumented in this encounter Care Teams Hairspring Inspector Relationship Specialty Start Date End Date Kevin Meyer PA [address] [place] [address] PCP - General Physician Customs Investigator 05/31/21 documented as of this encounter
--- OUTSIDE RECORDS SUMMARY | 2024-09-22 09:07 | XMS_ITS | Encounter Summary ---
Author Organization [facility] Address [facility] [place] [address] Care Team Providers Care Senior Director Finance Name Role Phone None, Provider Primary Care Provider Kevin Hassan Primary Care Provider [phone] Encounter Details Date Type Department Care Team (Late st Contact Info) Description 08/28/2018 Abstract [facility] CONVERSION [address] [place] [address] , Generic Conversion, Social History Tobacco Use [...] Department Care Team (Latest Contact Info) Description 11/17/2024 1:[address] [facility] [place] [address] Mando Rojas MD [address] [place], [place] [address] 11/30/2024 7:30 AM CDT Hospital Encounter [facility] [place] [address] Mando Rojas MD [address] [place] [address] 11/30/2024 7:30 AM CDT - 11/30/2024 9:32 AM CDT [facility] [place] [address] Mando Rojas MD [address] [place] [address] REMOVAL OF BILATERAL LUMBAR 5- SACRAL 1 POSTERIOR SPINAL HARDWARE 12/14/2024 1:40 PM CDT Office Visit [facility] - [facility] [address] [facility], [address] [place] [address] Jennifer Huang APRN [address] [facility] [address] [place] [address] Scheduled Procedures Name Priority Associated Diagnoses Date/Ti me LAMINECTOMY DECOMPRESSION PAIN FROM IMPLANTED HARDWARE, STATUS POST LUMBAR FUSION T84.84, Z98.1 11/30/2024 7:30 AM CDT documented as of this encounter Visit Diagnoses Not on filedocumented in this encounter Additional Health Concerns Infection Onset Date Last Indicated Resolved Time MRSA Comment:First negative 07/07/22 Second negative 07/27/23 04/08/2018 04/08/2018 08/11/2023 9:17 A M CDT COVID-19 Rule Out 05/25/2021 05/25/2021 05/25/2021 9:39 PM DENTAL ASSISTING INSTRUCTOR COVID-19 Rule Out 03/03/2023 03/03/2023 03/04/2023 7:03 PM DENTAL ASSISTING INSTRUCTOR documented as of this encounter Care Teams Senior Director Finance Relationship Specialty Start Date End Date None, Provider, PCP - General 01/10/20 05/27/21 Kevin Meyer PA PCP - General PHYSICIAN DEBURR TECHNICIAN 05/28/21 documented as of this encounter
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
--- OUTSIDE RECORDS SUMMARY | 2024-09-22 09:07 | XMS_ITS | Data Portability ---
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 15:58:53 11/13/2016 17:31:27 Malignant tumor of colon 179489930 C18.9 Anemia 427724165 D64.9 [id number] Oscar Felipe MD [facility] [address] [place] [address] 05/04/2017 13:58:22 05/04/2017 15:50:22 Bipolar disorder 82304077 F31.0 Cellulitis of external nose 82206258 J34.0 [id number] Oscar Felipe MD [facility] [address] [place] [address] 05/08/2017 14:00:22 05/08/2017 15:22:46 Cellulitis of external nose 89549299 J34.0 [id number] Oscar Felipe MD [facility] [address] [place] [address] 07/06/2017 10:59:57 07/06/2017 11:33:53 Primary hypertriglyceridemia 989046238 E78.1 Localized abdominal distention 092055489 R14.0 [id number] Oscar Felipe MD [facility] [address] [place] [address] 07/09/2017 16:44:12 07/14/2017 16:32:18 Primary hypertriglyceridemia 523449561 E78.1 [id number] Oscar Felipe MD [facility] [address] [place] [address] 08/10/2017 16:56:33 08/10/2017 17:33:53 Gastroesophageal reflux disease without esophagitis 595772303 K21.9 Non-neoplastic nevus 195 709747 I78.1 [id number] Oscar Felipe MD [facility] [address] [place] [address] 08/13/2017 16:32:52 08/18/2017 14:08:43 Non-neoplastic nevus 633885419 I78.1 [id number] Oscar Felipe MD [facility] [address] [place] [address] 10/20/2017 16:28:44 10/20/2017 17:42:02 Syncope and collapse 822033852 R55 [id number] Oscar Felipe MD [facility] [address] [place] [address] 11/13/2017 11:01:00 11/13/2017 11:59:40 Melanocytic nevus of skin 006967208 D22.9 [id number] Oscar Felipe MD [facility] [address] [place] [address] 11/26/2017 15:32:22 11/26/2017 17:17:06 Serum creatinine above reference range 814776431 R79.89 [id number] Annamaria Meyer PA-C [facility] [address] [place] [address] 12/08/2017 14:05:38 12/08/2017 14:39:09 Osteoarthritis 304414374 M15.0 Screening for malignant neoplasm of prostate 155195180 Z12.5 Anaphylaxis 76199735 Z87 .482 [id number] Annamaria Meyer PA-C [facility] [address] [place] [address] 12/15/2017 14:08:41 12/15/2017 14:46:05 Pain in right knee 9892569769 81824 M25.561 Low back pain 297203379 M54.5 [id number] Annamaria Meyer PA-C [facility] [address] [place] [address] 12/22/2017 15:21:56 12/22/2017 16:28:25 Lumbar radiculopathy 382921446 M54.16 Sprain of knee 73122243 S83.411D [id number] Annamaria Meyer PA-C [facility] [address] [place] [address] 01/28/2018 15:05:38 01/28/2018 16:27:11 Administration of influenza vaccine 25695914 Z23 Lumbar radiculopathy 128 889964 M54.16 Lumbosacra l radiculopathy 2892626 M54.17 Arthropath y of knee joint 364043454 M12.027 [id number] LETICIA French [address] [place] [address] 05/13/2018 16:46:39 05/13/2018 17:46:35 Hypothyroidism 26819029 E03.0 [id number] Annamaria Meyer PA-C [facility] [address] [place] [address] 05/31/2018 14:46:37 06/01/2018 12:09:13 Hyperlipidemia 45736807 E78.5 Obstructiv e sleep apnea syndrome 94859948 G47.33 Acquired hypothyroidism 144345154 E00.0 Acute bron chitis with bronchospasm 95460860 J20.9 [id number] Annamaria Meyer PA-C [facility] [address] [place] [address] 08/26/2018 14:10:18 08/26/2018 15:28:04 Hernia of anterior abdominal wall 152289594 K43.9 [id number] Annamaria Meyer PA-C [facility] [address] [place] [address] 12/14/2018 11:48:07 12/14/2018 13:47:59 Prediabetes 385099456 R73.03 [id number] Annamaria Meyer PA-C [facility] [address] [place] [address] 03/03/2019 14:42:37 03/03/2019 16:07:52 Fracture of calcaneus 159887734 S92.002D Hypothyroidism 27769736 E03.0 Obstructiv e sleep apnea syndrome 49391180 G47.33 [id number] Annamaria Meyer PA-C [facility] [address] [place] [address] 03/28/2019 13:12:56 03/29/2019 10:05:12 Diabetes mellitus screening 258076788 Z13.1 [id number] Annamaria Meyer PA-C [facility] [address] [place] [address] 05/27/2019 14:45:11 05/27/2019 15:58:09 Increased frequency of urination 001469569 R35.0 Psychogeni c polydipsia 15641057 F63.89 [id number] Annamaria Meyer PA-C [facility] [address] [place] [address] 06/08/2019 15:27:23 06/08/2019 17:13:45 Nodule of subcutaneous tissue of abdominal wall 4074502997 9615464 R22.2 Lumbago with sciatica 20 2456833 M54.41 Pain in right knee 98079 80604 97423 M25.406 [id number] Annamaria Meyer PA-C [facility] [address] [place] [address] 06/28/2019 10:59:11 06/29/2019 08:38:51 Complex regional pain syndrome of knee 812860117 G90.369 [id number] Annamaria Meyer PA-C [facility] [address] [place] [address] 11/09/2019 10:17:31 11/25/2019 03:46:56 [id number] Annamaria Meyer PA-C [facility] [address] [place] [address] 11/10/2019 10:05:04 11/10/2019 17:11:29 Pain in finger of right hand 7684249746 09049 M79.010 [id number] Oscar Felipe MD [facility] [address] [place] [address] 01/09/2020 15:54:12 01/09/2020 17:47:34 Adult health examination 798070276 Z00.00 [id number] Oscar Felipe MD [facility] [address] [place] [address] 01/18/2020 12:10:21 01/19/2020 15:30:37 Non-neoplastic nevus 771738036 I78.1 [id number] Oscar Felipe MD [facility] [address] [place] [address] 01/23/2020 15:41:36 01/23/2020 17:00:44 Non-neoplastic nevus 367762945 I78.1 [id number] Oscar Felipe MD [facility] [address] [place] [address] 02/07/2020 09:48:26 02/07/2020 15:47:26 Pain in left knee 6886938664 54480 M25.562 Pain of le ft ankle joint 7663039336 2827442 M25.572 Ankle pain 082395831 M25 .674 [id number] Oscar Felipe MD [facility] [address] [place] [address] 02/20/2020 16:34:18 02/20/2020 20:47:31 Gynecomastia 0870899 N62 [id number] Annamaria Meyer PA-C [facility] [address] [place] [address] 05/25/2020 12:19:21 05/25/2020 16:41:10 Chronic depression 497604586 F34.1 [place] monitoring 01016 7000 Z51.81 Mixed hyperlipidemia 267 329460 E78.2 [id number] Annamaria Meyer PA-C [facility] [address] [place] [address] 01/07/2021 15:24:02 01/07/2021 16:32:16 Hypothyroidism 94532977 E03.0 Hyperlipidemia 19192735 E78.2 Obstructiv e sleep apnea syndrome 98103431 G47.33 Generalize d anxiety disorder 25566104 F41.1 Polyuria 53580676 R35.81 [id number] Annamaria Meyer PA-C [facility] [address] [place] [address] 01/15/2021 13:56:04 01/15/2021 14:39:10 Essential hypertension 35241088 I10 Cervical radiculopathy 08152730 M54.12 [id number] Annamaria Meyer PA-C [facility] [address] [place] [address] 05/06/2021 14:19:17 05/06/2021 15:18:44 Essential hypertension 21444465 I10 Bipolar I disorder 39695 6008 F31.9 [id number] Oscar Felipe MD [facility] [address] [place] [address] 05/20/2021 12:22:01 05/20/2021 15:23:43 Syncope and collapse 432843802 R55 [id number] Oscar Felipe MD [facility] [address] [place] [address] 06/05/2021 15:54:08 06/05/2021 16:28:11 Hyperlipidemia 07278238 E78.2 Hypothyroidism 11556988 E03.0 Malignant tumor of colon 952040929 C18.9 [id number] Oscar Felipe MD [facility] [address] [place] [address] 07/17/2021 11:18:38 07/17/2021 14:57:25 Syncope and collapse 382321840 R55 [id number] Annamaria Meyer PA-C [facility] [address] [place] [address] 10/29/2021 11:03:41 10/29/2021 12:23:04 Primary insomnia 9042388 F51.01 [id number] Annamaria Meyer PA-C [facility] [address] [place] [address] 02/03/2022 11:01:12 02/03/2022 11:40:04 Right side sciatica 4480467173 33010 M54.31 Pain of ri ght knee joint 4777743241 89191 M25.561 Overweight 075533408 E66 .3 [id number] Annamaria Meyer PA-C [facility] [address] [place] [address] 03/10/2022 10:55:54 03/10/2022 11:15:22 Restless legs 11069605 G25.81 [id number] Annamaria Meyer PA-C [facility] [address] [place] [address] 04/10/2022 14:51:50 04/14/2022 11:47:28 Cervical radiculopathy 29143116 M54.12 Lumbar radiculopathy 128 022221 M54.16 [id number] MD Ck BROWNE ([employer]) [address] [place] [address] 05/09/2022 12:24:02 05/13/2022 13:29:22 Essential hypertension 27245517 I10 - BP elevated today- Follow up with PCP for further monitoring and management Acute uppe r respiratory infection 85214046 J06.9 - Discussed supportive care at home with emphasis on maintainin g adequate hydration- Provided anticipato ry guidance for when to call office and/or seek emergency treatment- f/u COVID, flu test- Follow up as needed Body mass index 25-29 - overweight 923045498 Z68.28 - Discussed healthy behaviors, including eating a balanced diet and incorporat ing regular physical activity into day Abnormal i nvoluntary movement 909522505 R25.9 - Recommende d patient follow up with his neurologis t about right toe spasms/inv oluntary movements [id number] Annamaria Meyer PA-C [facility] [address] [place] [address] 08/19/2022 15:06:47 08/20/2022 14:33:06 Cervical radiculopathy 79044236 M54.12 Essential hypertension 31228940 I10 Pain of ri ght knee joint 4076806519 60472 M25.800 [id number] Oscar Felipe MD [facility] [address] [place] [address] 09/30/2022 14:05:16 10/01/2022 10:18:00 Pain of toe of right foot 1603265486 11444 M79.292 [id number] Annamaria Meyer PA-C [facility] [address] [place] [address] 01/12/2023 11:17:11 01/19/2023 14:24:39 Essential hypertension 59100770 I10 Disorder o f pericardium 35344527 I31.8 Overweight 885860564 E66 .3 [id number] Annamaria Meyer PA-C [facility] [address] [place] [address] 02/16/2023 11:12:33 02/17/2023 15:31:56 Pain of left elbow joint 2618759014 3105483 M25.522 increase to 800 tid ibuprophen [id number] Annamaria Meyer PA-C [facility] [address] [place] [address] 05/19/2023 11:08:06 05/20/2023 09:18:15 Allergic reaction to wasp sting 097523184 T63.461A Abnormal weight gain 161 066000 R63.5 Excessive thirst 2988772 7 R63.1 Overweight 625413702 E66 .3 Mixed anxi ety and depressive disorder 448493692 F41.8 [id number] Oscar Felipe MD [facility] [address] [place] [address] 07/14/2023 10:37:00 07/23/2023 11:41:03 Cough 02325219 R05.9 Lumbar radiculopathy 128 502480 M54.16 Pre-surger y evaluation 657871031 Z01.818 Essential hypertension 46742141 I10 Mixed anxi ety and depressive disorder 054089307 F41.8 cont current meds [id number] Annamaria Meyer PA-C [facility] [address] [place] [address] 12/23/2023 10:45:46 12/24/2023 14:25:59 Nasal congestion 55543087 R09.81 Edema of l ower extremity 419205659 R60.0 Bilious vomiting 0972729 2 R11.14 Overweight 178698984 E66 .3 Essential hypertension 21177031 I10 [id number] Oscar Felipe MD [facility] [address] [place] [address] 05/02/2024 15:00:28 05/09/2024 10:11:53 Overweight 152111702 E66.3 External hemorrhoids 239 71460 K64.4 Upper resp iratory infection 89148908 J00 Influenza caused by Influenza A virus 216107533 J09.X2 [id number] Oscar Felipe MD [facility] [address] [place] [address] 06/29/2024 10:27:54 06/29/2024 15:52:34 Active or passive immunization 307177668 Z23 [id number] Oscar Felipe MD [facility] [address] [place] [address] 08/22/2024 16:52:11 08/23/2024 10:52:34 Primary hypothyroidism 54961524 E03.9 Overweight in adulthood with body mass index of 25 or more but less than 30 757661903 E66.3 Z68.26 [id number] Oscar Felipe MD [facility] [address] [place] [address] 09/13/2024 18:55:52 09/14/2024 16:14:24 Essential hypertension 95750773 I10 controlled Hypothyroidism 39819138 E03.0 Overweight in adulthood with body mass index of 25 or more but less than 30 925141981 E66.3 Z68.25 Health Concerns Section Related Observation LastModified by Organization Detai ls LastModified Time None Recorded Concern Status LastModified by Organization Details LastModified Time None Recorded Advance Directives Directive None Recorded Payers Insurance Date Sequence Insurance Name Policy Number Policy Beavers Covered Member ID Beavers Member ID Guarantor Name 05/02/2024 2 [place] Baljeet Herman [id number] Baljeet Herman 08/21/2024 [place] [facility] Baljeet Herman [id number] Baljeet Herman 05/02/2024 1 [employer] [place] (MEDICARE REPLACEMENT HMO) Baljeet Herman [id number] Baljeet Herman 08/21/2024 2 [place] WHEN MED[place] OR [place]IC[place] REPLACEMENT PRIMARY) Baljeet Herman [id number] Baljeet Herman 05/02/2024 1 [place] Baljeet Herman [id number] Baljeet Herman 05/02/2024 [place] [facility] Baljeet Solares Virgil [id number] Baljeet Virgil 05/02/2024 1 [facility] ([facility]/[place] - HMO) Baljeet Herman [id number] Baljeet Virgil 05/02/2024 [place] [facility] Baljeet Solares Virgil [id number] Baljeet Virgil 09/10/2024 1 [facility] (MEDICARE REPLACEMENT/ADVA NTAGE - HMO) [id number] Baljeet Gonzalezas [id number] Baljeet Herman Notes Date Note Type Note Provider Name and Address Organization Details Recorded Time 12/23/2023 text/html surgery in July o n his back...since then has had leg swelling off/on...also vomiting dry heaves then lots of yellow... Annamaria Meyer PA-C Attn: Accounting,[address] [facility], [place], [address], [place] 12/23/2023 11:16:28 05/02/2024 text/html cough hard to breathe 3 days..... high fever 101 also weak and achy also hemorrhoids bleeding.. Rivka Jamison MA [facility], [place] - [place] 05/03/2024 14:20:29 08/22/2024 text/html discuss thyroid levels... Annamaria Meyer PA-C Attn: [employer] [facility], [place], [address], [facility] - [place] 08/22/2024 17:16:44 09/13/2024 text/html possible exposur e to PFAS which could be contributory to liver and thyroid disease...also experiencing locked fingers on rt hand.. Annamaria Meyer PA-C Attn: [employer]ing,[address] [facility], [place], [address], [facility] - [place] 09/13/2024 19:46:12
--- OUTSIDE RECORDS SUMMARY | 2024-09-22 09:07 | XMS_ITS | Clinical Summary ---
Author Organization [facility] Address [address] [place] [address] Phone Care Team Providers Care Play Therapist Name Role Phone Kevin Meyer Primary Care Provider [phone] Amy Allen APRN, HEAD WAITRESS Unavailable + [phone] Dawit MARISCAL MD, Courtney Unavailable [phone] Brad Bone MD Unavailable [phone] Vanda Jimenez APRN, HEAD WAITRESS Unavailable Min Mario MD Unavailable Allergies Active [...] Tablet by mouth every morning. 90 Tablet Active EPINEPHrine (EPIPEN) 0.3 MG/0.3ML Solution Auto-injector INJECT 0.3 MILLILITER (0.3 MG) BY INTRAMUSCULAR ROUTE ONCE NEEDED FOR ANAPHYLAXIS 2 Active Nurtec 75 MG TABLET DISPERSIBLE TAKE 1 TABLET ONCE NEEDED FOR MIGRAINE HEADACHE A SINGLE DOSE MAX OF 1 PER DAY 2 Active prazosin (MINIPRESS) 2 MG Capsule nightly. 3 Active diazePAM (VALIUM) 2 MG Tablet Take 1 mg by mouth nightly. 3 Active amLODIPine (NORVASC) 2.5 MG Tablet Take 1 Tablet by mouth daily. 90 Tablet 3 3 Active Additional Information Patient taking differently: 10 mgOralNIGHTLY, Reported on 07/21/2024 pregabalin (LYRICA) 75 MG Capsule Take 75 mg by mouth every morning. Active LORazepam ER (Loreev XR) 1 MG Capsule ER 24 Hour SprinkleIndicat ions:Anxiety Take 1 Capsule by mouth every morning. Indications: Feeling Anxious 2 Active octreotide (SandoSTATIN) 100 MCG/ML Solution 100 mcg by Intravenous route every 30 days. Active oxyCODONE (ROXICODONE) 5 MG Tablet Take 5 mg by mouth every 6 hours as needed for Pain. 3 Active ondansetron (Zofran) 4 MG Tablet Take 1 Tablet by mouth every 6 hours as needed for Nausea - 1st line. 15 Tablet 1 4 Active Vraylar 1.5 MG Capsule Active hydroCHLOROthia zide 25 MG Tablet Take 25 mg by mouth. 4 Active OLANZapine (ZYPREXA) 5 MG Tablet nightly. 4 Active modafinil (PROVIGIL) 100 MG Tablet Active ondansetron (Zofran) 4 MG Tablet Take 1 Tablet by mouth every 4 hours as needed for Nausea - 1st line. 60 Tablet 1 4 Active pantoprazole (PROTONIX) 40 MG Tablet Delayed Response TAKE 1 TABLET BY MOUTH DAILY. 90 Tablet 1 5 Active Active Problems Problem Noted Date [...] Encounters Date Type Department Care Team Description 07/21/2024 9:30 AM CDT Procedure Visit [facility] [address] [place] [address] Min Mario MD Kidney stone (Primary Dx); Urinary tract infection with hematuria, site unspecified; Acute cystitis with hematuria; Prostate cancer screening Discharge Disposition: Discharged to home or Selfcare 07/21/2024 Telephone [facility] [address] [place] [phone] Anne Marie Osborne RN Hypertension 07/19/2024 Travel 07/15/2024 8:27 AM CDT - 07/15/2024 11:59 PM CDT Hospital Encounter [facility] [address] [place] [address] Min Mario MD Discharge Disposition: Discharged to home or Selfcare 07/13/2024 Travel 06/30/2024 Results Follow-Up [facility] [address] [place] [address] Min Mario MD CULTURE, URINE, CT UROGRAPHY WO/W CONTRAST 06/30/2024 Results Follow-Up [facility] [address] [place] [address] Min Mario MD XR ABDOMEN KUB FLAT PLATE 06/23/2024 9:30 AM CDT Office Visit [facility] [address] [place] [address] Min Mario MD Kidney stone (Primary Dx); Urinary tract infection with hematuria, site unspecified; Acute cystitis with hematuria Discharge Disposition: Discharged to home or Selfcare from Last 3 Months Immunizations Immunization Administration Dates Next Due H1N1 Flu, Unspecified Formulation 06/04/2009 Influenza Vaccine less than 3 yrs 03/08/2015 Influenza Vaccine, MDCK,quad rivalent, pres free 01/09/2022 Influenza Vaccine, Quadrivalent, PF 03/0 10/2021,01/03/2019,01/28/2018,2013 Influenza Vaccine,unspecifie d Formulation 01/03/2020,04/29/2013,02/05/2012,2010,01/22/2010,12/13/2008,12/24/2006 Influenza, [...] Sign Reading Time Taken Comments Blood Pressure 139/79 07/21/2024 9:54 AM CDT Pulse 70 07/21/2024 9:54 AM CDT Temperature 36 C (96.8 F) 01/12/2024 8:32 AM CDT Respiratory Rate 14 07/21/2024 9:54 AM CDT Oxygen Saturation 99% 07/21/2024 9:54 AM CDT Inhaled Oxygen Concentration - - Weight 89.4 kg (197 lb) 07/21/2024 9:54 AM CDT Height 182.9 cm (6') 07/21/2024 9:54 AM CDT Body Mass Index 26.72 07/21/2024 9:54 AM CDT Plan of Treatment Upcoming Encounters Date Type Department Care Team (Late st Contact Info) Description 02/02/2025 10:15 AM FOOD CART ATTENDANT Office Visit [facility] [address] [place] [address] Min Mario MD [address], [address] [address] Health Maintenance Due Date Last Done Comments Hepatitis C Virus (HCV) Screening 1966 SARS-COV-2 Immunization (#1) 06/17/1971 Hepatitis B Immunization (1 of 3 - 19+ 3-dose series) 1985 Cologuard 06/17/2011 Immunochemical Fecal Occult Blood 06/17/2011 Pneumococcal Immunization (50+ years) (2 of 2 - PCV) 03/08/2016 03/08/2015 PSA Discussion 2021 Influenza Immunization (Season Ended) 2024 01/09/2022, 05/28/2021, 01/09/2020, Additional history exists Colonoscopy 08/06/2025 08/06/2022, 07/08/2021 Colorectal Cancer Screening 08/06/2025 Td Immunization Every 10 Years (Adults With 1 Tdap) 05/12/2032 05/12/2022, 04/29/2013 Respiratory Syncytial Virus (RSV) Immunization (Adult) (1 - 1-dose 75+ series) 2041 Pneumococcal Immunization Combined Discontinued 03/08/2015 Zoster Immunization Completed 10/30/2020, 08/28/2020, 08/28/2020 DTaP/Tdap/Td Immunization Discontinued 05/12/2022, 09/2013 TdaP Immunization Discontinued 05/12/2022, 04/29/2013 Human Papillomavirus (HPV) Immunization Aged Out No longer eligible based on patient's age to complete this topic Meningococcal Immunization (ACWY) Aged Out No longer eligible based on patient's age to complete this topic Rotavirus Immunization Aged Out No lo nger eligible based on patient's age to complete this topic Procedures Procedure Name Priority Date/Time Associated Diagnosis Comments POCT UA AUTOMATED W/O MICRO Routine 07/21/2024 9:58 AM CDT Kidney stone Urinary tract infection with hematuria, site unspecified Acute cystitis with hematuria CYSTOURETHROSCOPY Routine 07/21/2024 9:3 0 AM CDT Urinary tract infection with hematuria, site unspecified CT UROGRAPHY WO/W CONTRAST Routine 07/15/2024 9:29 AM CDT Acute cystitis with hematuria POCT CREATININE Routine 07/15/2024 9:02 AM CDT CULTURE, URINE Routine 06/23/2024 10:11 AM CDT Kidney stone POCT UA AUTOMATED W/O MICRO Routine 06/23/2024 9:24 AM CDT Kidney stone from Last 3 Months Results * (ABNORMAL) POCT UA AUTOMATED W/O MICRO (07/21/2024 9:58 AM CDT) Only the most recent of2 resultswithin the time period is included. POC UA SPECIFIC GRAVITY 1.010 URINE PH 7.0 5.0 - 9.0 POC URINE LEUKOCYTES Negative Negative Malgorzata/uL POC URINE NITRITE Negative Negative POC URINE PROTEIN Negative Negative mg/dL POC URINE GLUCOSE Norm Negative, Norm mg/dL POC URINE KETONE Negative Negative mg/dL POC URINE UROBILINOGEN Norm Norm, 0.2 E.U./dL (mg/dL), 1 E.U./dL (mg/dL) POC URINE BILIRUBIN Negative Negative mg/dL POC URINE BLOOD INSTRUMENT 250 Jose Antonio/uL(A) Negative Jose Antonio/uL POC URINE COLOR Yellow POC URINE CLARITY Clear Urine 07/21/2024 9:58 AM CDT us Min Mario MD POINT OF CARE TESTING (MANUAL) F inal Result * CYSTOURETHROSCOPY (07/21/2024 9:30 AM CDT) Narrative Min Mario MD - 07/21/2024 9:30 AM CDT Min Mario MD 07/21/2024 10:18 AM Office cystoscopy 07/21/2024 Genitalia were prepped and draped in a sterile fashion. Flexible cystourethroscopy was performed. Penile and bulbous urethra looked normal. The external sphincter was intact. Prostatic urethra was about 2 cm with an open bladder neck. Bladder looked normal with no tumors, stones or diverticula. Both ureteral orifices were normal. The cystoscope was removed. He tolerated the procedure well. us Min Mario MD MA - SURGERY Final Result * CT UROGRAPHY WO/W CONTRAST (07/15/2024 9:29 AM CDT) Anatomical Region Laterality Modality , Abdomen N/A Computed Tomogra phy 07/21/2024 12:1 3 PM CDT Impressions 07/21/2024 12:16 PM CDT IMPRESSION: No acute findings in the abdomen or pelvis. Bilateral nonobstructing renal stones. Low-attenuation lesions in the kidneys are unchanged since 12/10/2023 and are likely cysts with hemorrhagic or proteinaceous products. Attention on follow-up Narrative 07/21/2024 12:16 PM CDT EXAM DESCRIPTION: CT UROGRAPHY WO/W CONTRAST REASON FOR STUDY: Right flank pain x 3-4 weeks, UTI, acute cystitis with hematuria. 06/24/23 UA + blood. Hx of renal stones and cyst 11/2023. Hx lithotripsy 2014. Hx of HTN, colon surgery, cholecystectomy, liver lesion, and lumbar fusion. TECHNIQUE: Precontrast images of the abdomen. Abdomen and pelvis images with intravenous and without oral contrast using helical scanning technique with dynamic intravenous contrast injection. Corticomedullary, nephrographic, excretory phase images were acquired. Reconstructed coronal and sagittal MPR images reviewed. All images stored on PACS. Automated exposure control was used as a dose optimization technique for this examination. CONTRAST TYPE/DOSE: 100mL of IOPAMIDOL 76 % IV SOLN injected via Intravenous COMPARISON: 12/10/2023, 10/06/2022, 04/09/2014. FINDINGS: URINARY TRACT: KIDNEYS: There multiple nonobstructing stones in the upper pole of the right kidney, measuring up to 4 mm.. There is a 2 mm stone at the lower pole of the left kidney that is nonobstructing. No hydroureteronephrosis. Low attenuation circumscribed lesions in the lower pole left kidney on image 78 of series 3 measuring 1 cm and on image 80 measuring 5 mm are not well seen on the noncontrast images and are technically indeterminate by density on the postcontrast images but do not significantly change in density between phases and are likely cysts with hemorrhagic or proteinaceous products. Furthermore, they appear unchanged in size since 12/10/[address] abdomen pelvis. Similar focus in the upper pole of the right kidney is also unchanged. URETERS AND BLADDER: No suspicious filling defects within the opacified portions of the renal collecting systems, ureters or urinary bladder with significant portions of the proximal to mid right ureter, majority of the left ureter and urinary bladder non opacified by contrast. ABDOMEN/PELVIS: LOWER CHEST: Stable 3 mm right middle lobe pulmonary nodule LIVER: Linear areas of calcific density are redemonstrated in the right adriana liver, by report related to prior embolization GALLBLADDER: Absent BILE DUCTS: No intrahepatic or extrahepatic ductal dilatation. SPLEEN: Normal size. No focal lesions. PANCREAS: No identified cystic or solid masses. No significant calcifications. No adjacent inflammation or peripancreatic fluid collections. Pancreatic duct not dilated. ADRENALS: Normal. GI: Scattered colonic diverticuli without evidence of acute diverticulitis. Redemonstrated mild low attenuation within the ascending and proximal transverse colonic wall, likely sequela of prior infectious or inflammatory process. Postoperative changes are again seen at the cecum, unchanged. The visualized distal esophagus is unremarkable. The stomach appears unremarkable. Small bowel course and caliber are normal and there is no wall thickening. PERITONEUM: No ascites or free air. RETROPERITONEUM: No mass or adenopathy. REPRODUCTIVE: Calcifications are present within the prostate. Unchanged mild prostatomegaly. VASCULATURE: Mild athero sclerotic calcification without aneurysm.. No flow-limiting stenosis is seen. No venous thrombosis identified MUSCULOSKELETAL: Stable tiny sclerotic foci in the right iliac bone in right inferior pubic ramus. Anterior discectomy and fusion with combined posterior instrumented fusion at L5-S1. No aggressive bone lesion or acute fracture is seen.. Unchanged L4 on L5 and L3 on L4 retrolisthesis. Multiple chronic Schmorl's nodes. No aggressive bone lesion or acute fracture. OTHER: No other abnormality. THIS IS AN ELECTRONICALLY VERIFIED FINAL REPORT 07/21/2024 12:13 PM - Electronically signed by Brandon Smith M.D. MZ: CAROLYN Report ID: [id number] Reading Location: [id number] Procedure Note Brandon Smith MD - 07/21/2024 EXAM DESCRIPTION: CT UROGRAPHY WO/W CONTRAST REASON FOR STUDY: Right flank pain x 3-4 weeks, UTI, acute cystitis with hematuria. 06/24/23 UA + blood. Hx of renal stones and cyst 11/2023. Hx lithotripsy 2014. Hx of HTN, colon surgery, cholecystectomy, liver lesion, and lumbar fusion. TECHNIQUE: Precontrast images of the abdomen. Abdomen and pelvis images with intravenous and without oral contrast using helical scanning technique with dynamic intravenous contrast injection. Corticomedullary, nephrographic, excretory phase images were acquired. Reconstructed coronal and sagittal MPR images reviewed. All images stored on PACS. Automated exposure control was used as a dose optimization technique for this examination. CONTRAST TYPE/DOSE: 100mL of IOPAMIDOL 76 % IV SOLN injected via Intravenous COMPARISON: 12/10/2023, 10/06/2022, 04/09/2014. FINDINGS: URINARY TRACT: KIDNEYS: There multiple nonobstructing stones in the upper pole of the right kidney, measuring up to 4 mm.. There is a 2 mm stone at the lower pole of the left kidney that is nonobstructing. No hydroureteronephrosis. Low attenuation circumscribed lesions in the lower pole left kidney on image 78 of series 3 measuring 1 cm and on image 80 measuring 5 mm are not well seen on the noncontrast images and are technically indeterminate by density on the postcontrast images but do not significantly change in density between phases and are likely cysts with hemorrhagic or proteinaceous products. Furthermore, they appear unchanged in size since 12/10/[address] abdomen pelvis. Similar focus in the upper pole of the right kidney is also unchanged. URETERS AND BLADDER: No suspicious filling defects within the opacified portions of the renal collecting systems, ureters or urinary bladder with significant portions of the proximal to mid right ureter, majority of the left ureter and urinary bladder non opacified by contrast. ABDOMEN/PELVIS: LOWER CHEST: Stable 3 mm right middle lobe pulmonary nodule LIVER: Linear areas of calcific density are redemonstrated in the right adriana liver, by report related to prior embolization GALLBLADDER: Absent BILE DUCTS: No intrahepatic or extrahepatic ductal dilatation. SPLEEN: Normal size. No focal lesions. PANCREAS: No identified cystic or solid masses. No significant calcifications. No adjacent inflammation or peripancreatic fluid collections. Pancreatic duct not dilated. ADRENALS: Normal. GI: Scattered colonic diverticuli without evidence of acute diverticulitis. Redemonstrated mild low attenuation within the ascending and proximal transverse colonic wall, likely sequela of prior infectious or inflammatory process. Postoperative changes are again seen at the cecum, unchanged. The visualized distal esophagus is unremarkable. The stomach appears unremarkable. Small bowel course and caliber are normal and there is no wall thickening. PERITONEUM: No ascites or free air. RETROPERITONEUM: No mass or adenopathy. REPRODUCTIVE: Calcifications are present within the prostate. Unchanged mild prostatomegaly. VASCULATURE: Mild athero sclerotic calcification without aneurysm.. No flow-limiting stenosis is seen. No venous thrombosis identified MUSCULOSKELETAL: Stable tiny sclerotic foci in the right iliac bone in right inferior pubic ramus. Anterior discectomy and fusion with combined posterior instrumented fusion at L5-S1. No aggressive bone lesion or acute fracture is seen.. Unchanged L4 on L5 and L3 on L4 retrolisthesis. Multiple chronic Schmorl's nodes. No aggressive bone lesion or acute fracture. OTHER: No other abnormality. THIS IS AN ELECTRONICALLY VERIFIED FINAL REPORT 07/21/2024 12:13 PM - Electronically signed by Brandon Smith M.D. MZ: CAROLYN Report ID: [id number] Reading Location: [id number] IMPRESSION: No acute findings in the abdomen or pelvis. Bilateral nonobstructing renal stones. Low-attenuation lesions in the kidneys are unchanged since 12/10/2023 and are likely cysts with hemorrhagic or proteinaceous products. Attention on follow-up Min Mario MD [facility] CT ORDERABLES Final Result * POCT Creatinine (07/15/2024 9:02 AM CDT) CREATININE - POCT 1.2 0.6 - 1.3 mg/dL 07/15/2024 9:04 AM CDT [facility] Blood 07/15/2024 9:02 AM CDT 07/15/2024 9:04 AM CDT us None Provider POINT OF CARE TESTING Final Resu lt [facility] [place] [address] * CULTURE, URINE (06/23/2024 10:11 AM CDT) CULTURE RESULTS Mixed Growth of One or More Distal Urethral Contaminants 06/24/2024 11:25 PM CDT [facility] Culture URINE SPECIMEN OBTAINED BY CLEAN CATCH PROCEDURE / Unknown Non-Phlebotomy Collection / Unknown 06/23/2024 10:11 AM CDT 06/23/2024 10:11 AM CDT us Min Mario MD MICROBIOLOGY - GENERAL ORDERABLE S Final Result [facility] [address] [place] [address], [place] from Last 3 Months Insurance MEDICAID [place] MEDICARE C [facility] Advance Directives * Full Code (Latest Code [...] all measures to stabilize patient. Care Teams Play Therapist Relationship Specialty Start Date End Date Kevin Meyer [facility] [address] [place] [address] PCP - General Physician Parts Analyst 07/15/17 Amy Allen APRN, HEAD WAITRESS [address] [address] Nurse Practitioner Cardiology 01/27/23 Merlene Pastor III, MD [address] [place] [address] Consulting Physician Urology 10/28/21 Brad Bone MD [address] [place] [id number] Consulting Physician Neurology 09/04/22 Vanda Jimenez APRN, HEAD WAITRESS [address] [place] [address] Nurse Practitioner Advanced Practice Nurse 07/31/22 Min Mario MD [address] [address] Consulting Physician Urology 12/17/23
--- OUTSIDE RECORDS SUMMARY | 2024-09-22 09:07 | XMS_ITS | Encounter Summary ---
Author Organization [facility] Address [address] [place] [address] Phone Care Team Providers Care Care Assistant Name Role Phone Kevin Meyer Primary Care Provider [phone] Amy Allen APRN, JUNIOR LINUX SYSTEMS ADMINISTRATOR Unavailable + [phone] Dawit MARISCAL MD, Courtney Unavailable [phone] Brad Bone MD Unavailable [phone] Vanda Jimenez APRN, JUNIOR LINUX SYSTEMS ADMINISTRATOR Unavailable Min Mario MD Unavailable Reason for Visit * Reason Comments Medication Refill Encounter Details Date Type Department Care Team (Late st Contact Info) Description 06/22/2024 Refill [facility] [address] [place] [address] Vanda Jimenez APRN, JUNIOR LINUX SYSTEMS ADMINISTRATOR [address] [place] [address] Medication Refill Social History Tobacco Use Types [...] PM CDT Medication [facility] and [facility] medication standing order for pediatric and adult patients. documented in this encounter Plan of Treatment Upcoming Encounters Date Type Department Care Team (Late st Contact Info) Description 02/02/2025 10:15 AM EMERGENCY CARE TECH Office Visit [facility] [address] [place] [address] Min Mario MD #[address] [address] documented as of this encounter Visit Diagnoses Not on filedocumented in this encounter Care Teams Care Assistant Relationship Specialty Start Date End Date Kevin Meyer PAC [address] [place] [address] PCP - General Physician Otr Truck Driver 07/15/17 Amy Allen APRN, JUNIOR LINUX SYSTEMS ADMINISTRATOR #2 [facility] [address] [place] [address] Nurse Practitioner Cardiology 01/27/23 Merlene Pastor III, MD [address] [place] [address] Consulting Physician Urology 10/28/21 Bard Bone MD [address] [place] [id number] Consulting Physician Neurology 09/04/22 Vanda Jimenez APRN, JUANCHO [address] [place] [address] Nurse Practitioner Advanced Practice Nurse 07/31/22 Min Mario MD #[address] [address] Consulting Physician Urology 12/17/23 documented as of this encounter
--- OUTSIDE RECORDS SUMMARY | 2024-09-22 09:07 | XMS_ITS ---
Author Organization [facility] Address [address] [place] [address] Phone Care Team Providers Care Towel Distributor Name Role Phone [employer] Kevin LU Primary Care Provider [phone] Amy Allen APRN, GRINDER OUTSIDE DIAMETER Unavailable + [phone] Dawit MARISCAL MD, Courtney Unavailable [phone] Brad Bone MD Unavailable [phone] Vanda Jimenez APRN, GRINDER OUTSIDE DIAMETER Unavailable Min Mario MD Unavailable Jose Chronic Condition Monitoring Status:Enrolled (Active) Start date:04/20/2024 Enrollment date:04/20/2024 Related social drivers of health:Intimate Partner Violence, Social Connections, Alcohol Use, Tobacco Use, Financial Resource Strain,Depression, Stress, Physical Activity, Food Insecurity, Transportation Needs, Housing Stability, Utilities Continued Care and Services Coordination
--- OUTSIDE RECORDS SUMMARY | 2024-09-22 09:07 | XMS_ITS | Encounter Summary ---
Author Organization [facility] Address [address] [place] [address] Care Team Providers Care Proof Coins Inspector Name Role Phone Kevin Meyer Primary Care Provider [phone] Kevin Meyer Unavailable [phone] Benja Esteban MD Unavailable [phone] Samy Bravo MD PhD Unavailable [phone] Vivian Horn RN Unavailable +[phone] Encounter Details Date Type Department Care Team (Late st Contact Info) Description 09/04/2020 Telephone [facility] [address] [place] [address] Dorothy Case, RT Social History [...] declined 04/03/2020 How often do you attend sikhism or mormon serv ices? Patient declined 04/03/2020 Do you belong to any clubs o r organizations such as sikhism groups, unions, fraternal or athletic groups, or [...] Date Recorded PHQ-2 Total Score 4 04/03/2020 [facility] - Occupational [...] place to sleep or slept in a correction (including now)? 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 PIT INSPECTOR Gender Identity Male 03/26/2021 11:53 AM PIT INSPECTOR Sexual Orientation Choose not to disclose 2021 11:53 AM PIT INSPECTOR Occupation Industry Job Start Date Job End Date disabled Not on file Not on file Not on file documented as of this encounter Plan of Treatment Not on file documented as of this encounter Visit Diagnoses Not on filedocumented in this encounter Care Teams Proof Coins Inspector Relationship Specialty Start Date End Date Kevin Meyer PA [address] [place] [address] PCP - General 03/23/19 Kevin Meyer PA [address] [place] [address] 03/23/19 Benja Esteban MD [address] [place] [address] Medical Oncologist/[facility] Hematology and Oncology 02/28/20 Samy Bravo MD PhD [address] [place] [address] Resident Psychiatry 05/31/20 09/17/20 Vivian Horn, RN [address] [address] SHOP Outpatient Electric Stop Installer 02/01/21 02/28/21 documented as of this encounter
--- OUTSIDE RECORDS SUMMARY | 2024-09-22 09:07 | XMS_ITS | Clinical Summary ---
Author Organization [facility] Address [address] [place] [address] Care Team Providers Care Blood Coordinator Name Role Phone Kevin Meyer Primary Care Provider [phone] Source Comments [facility],non-owned Affiliates and Associated Physician Practices is amultiple site organization consisting of ambulatory clinics and hospital sitesin [place] and [place]. This disclosure is being madepursuant to the Care Everywhere program and may not contain all information available regarding this patient. Last updated 17.[facility] Allergies Active Allergy Reactions Criticality Noted Date [...] on file Legal Sex Male 4:24 AM FINANCIAL SYSTEMS ADMINISTRATOR Gender Identity Not on file Sexual Orientation Not on file Last Filed Vital Signs Vital Sign Reading Time Taken Comments Blood Pressure 134/79 04/23/2022 1:34 PM FINANCIAL SYSTEMS ADMINISTRATOR Pulse 62 04/23/2022 1:34 PM FINANCIAL SYSTEMS ADMINISTRATOR Temperature 36.4 C (97.5 F) 04/23/2022 1:34 PM FINANCIAL SYSTEMS ADMINISTRATOR Respiratory Rate 18 10/15/2021 6:45 PM CDT Oxygen Saturation 100% 04/23/2022 1:34 PM FINANCIAL SYSTEMS ADMINISTRATOR Inhaled Oxygen Concentration - - Weight 94.3 kg (208 lb) 04/23/2022 1:34 PM FINANCIAL SYSTEMS ADMINISTRATOR Height 182.9 cm (6') 10/15/2021 7:20 AM [...] 01/03/2020, Additional history exists SCREENING FOR DIABETES 09/04/2025 3, 09/04/2022, 06/23/2022, Additional history exists HIB VACCINE Aged Out No longer eligi [...] COMPREHENSIVE METABOLIC PANEL Routine 04/23/2022 11:02 AM FINANCIAL SYSTEMS ADMINISTRATOR Neuroendocrine carcinoma metastatic to liver from Last 3 Months or Most Recently Relevant to Health Maintenance Results * (ABNORMAL) COMPREHENSIVE METABOLIC PANEL (04/23/2022 11:02 AM [facility]) BUN 14 7 - 26 mg/dL 04/23/2022 11:56 AM [facility] Creatinine 0.81 0.71 - 1.16 mg/dL 04/23/2022 11:56 AM [facility] Sodium 136 136 - 145 mmol/L 04/23/2022 11:56 AM [facility] Potassium 3.9 3.5 - 4.5 mmol/L 04/23/2022 11:56 AM [facility] Chloride 102 98 - 107 mmol/L 04/23/2022 11:56 AM [facility] CO2 23 22 - 29 mmol/L 04/23/2022 11:56 AM [facility] Glucose 117(H) 70 - 115 mg/dL 04/23/2022 11:56 AM [facility] Calcium 9.1 8.4 - 10.2 mg/dL 04/23/2022 11:56 AM [facility] Protein Total 7.0 6.0 - 8.3 g/dL 04/23/2022 11:56 AM [facility] Albumin 3.8 3.4 - 5.0 g/dL 04/23/2022 11:56 AM [facility] Bilirubin Total 0.4 0.2 - 1.2 mg/dL 04/23/2022 11:56 AM [facility] Alkaline Phosphatase 112 40 - 150 U/L 04/23/2022 11:56 AM [facility] ALT 62(H) 5 - 55 U/L 04/23/2022 11:56 AM [facility] AST 31 5 - 34 U/L 04/23/2022 11:56 AM [facility] Anion Gap 15 8 - 18 04/23/2022 11:56 AM [facility] BUN/Creatinine Ratio 17 7 - 23 04/23/2022 11:56 AM [facility] Osmolality Calculated 284 270 - 300 mOsm/kg 04/23/2022 11:56 AM [facility] Albumin/Globulin Ratio 1.2 1.1 - 2.3 04/23/2022 11:56 AM FINANCIAL SYSTEMS ADMINISTRATOR [facility] eGFR by CKD-EPI >90 >=90 mL/min/1.7 3 m2 04/23/2022 11:56 AM [facility] Blood BLOOD SPECIMEN / Unknown Lab Venipuncture / Unknown 04/23/2022 11:02 AM FINANCIAL SYSTEMS ADMINISTRATOR 04/23/2022 11:31 AM FINANCIAL SYSTEMS ADMINISTRATOR Blair Le MD LAB - CHEMISTRY ORDERABLES Final Result [facility] [address] [place] [address], [facility] [phone] from Last 3 Months or Most Recently Relevant to Health Maintenance Insurance MEDICAID - OUT OF STATE MEDICAID - [place] UHC MANAGED MEDICARE ADV Care Teams Blood Coordinator Relationship Specialty Start Date End Date Kevin Meyer PA [address] [place] [address] PCP - General 06/28/21
--- OUTSIDE RECORDS SUMMARY | 2024-09-22 09:07 | XMS_ITS ---
Author Organization Unknown Address [address] [place] [phone] Phone Care Team Providers Care Customer Service Representative Teacher Name Role Phone COMPOSING ROOM MACHINIST PHYLLIS Attending Unavailable SUYAPA YIN Primary Unavailable [...] normal in course and morphology. There is qcfd-ha-kegsnlfo olecranon bursitis with a dorsal soft tissue [...] Paul Valencia M.D. MF: [email or web address] Report ID: [id number] Reading Location: [id number] THIS IS AN ELECTRONICALLY VERIFIED FINAL REPORT 02/26/2023 10:28 AM ? Addendum Electronically signed by Paul Valencia M.D. MF: CLEMENTE Report ID: [id number] Reading Location: [id number] Social History Type Status Start Date End Date Code Code Syst em Smoking History Never smoker (Never Smoked) 559182597 SNOMED CT Sex Male Hospital Discharge Instructions [...]
--- OUTSIDE RECORDS SUMMARY | 2024-09-22 09:07 | XMS_ITS ---
Author Organization Unknown Address [address] [place], [place] [id number] Phone Care Team Providers Care Gravity Manager Name Role Phone TONYA Forrest Attending Unavailable [...] DIFF - Collect Date/T nadia: 01/26/2023 15:30 [facility] ID: [id number] [place], [place], [id number] LOINC: 93744-9 Test Value Unit Reference Range Code Code System Flag WBC 10.1 10^3uL L=4.8 H=10.8 RBC 4.22 10^6uL L=4.60 H=6.20 L HEMOGLOBIN 13.5 g/dL L=14.0 H=18.0 718-7 LOINC L HEMATOCRIT 39.3 VOL% L=42.0 H=52.0 4544-3 LOINC L MCV 93.1 fL L=80.0 H=94.0 MCH 32.0 pg L=27.0 H=32.0 MCHC 34.4 g/dL L=32.0 H=36.0 PLATELETS 227 10^3uL L=100 H=400 88071-2 LOINC RDW 12.7 % L=11.7 H=15.5 %GRAN 72.5 % L=40.0 H=70.0 50609-0 LOINC H %LYMPH 12.1 % L=20.0 H=45.0 736-9 LOINC L %MONO 11.1 % L=2.0 H=10.0 41499-0 LOINC H %EOS 3.2 % L=0.0 H=6.0 713-8 LOINC %BASO 0.5 % L=0.0 H=3.0 706-2 LOINC #NEUT 7.3 10^3uL L=1.9 H=7.6 38634-1 LOINC #LYMPH 1.2 10^3uL L=0.9 H=4.9 95819-2 LOINC #MONO 1.1 10^3uL L=0.1 H=0.9 22939-7 LOINC H #EOS 0.3 10^3uL L=0.0 H=0.6 712-0 LOINC #BASO 0.05 10^3uL L=0.00 H=0.10 71904-2 LOINC #IM GRANS 0.1 10^3uL L=0.0 H=7.0 86007-7 LOINC %IM GRANS 0.6 % L=0.0 H=5.0 95215-7 LOINC %NRB 0.0 L=0.0 H=0.2 34713-1 LOINC #NRB 0.000 L=0.000 H=0.012 42643-8 LOINC MANUAL DIFF NOT INDICATED RBC MORPH NOT INDICATED COMPREHENSIVE METABOLIC PANE L - Collect Date/Time: 01/26/2023 15:30 [facility] ID: [id number] [address] [place], [place], [id number] LOINC: 99639-1 Test Value Unit Reference Range Code Code [...] 2028-9 LOINC ANION GAP 13 L=10 H=20 89870-3 LOINC OSMOLALITY 271 mOs/kG L=280 H=296 88165-4 LOINC L BUN/CREAT 9.2 3097-3 LOINC CALCIUM 9.4 mg/dL L=8.3 H=10.5 02591-7 LOINC AST 29 U/L L=15 H=46 1920-8 LOINC ALT 33 U/L L=9 H=72 1742-6 LOINC ALKALINE PHOS 115 U/L L=38 H=126 6768-6 LOINC TOTAL BILI 0.6 mg/dL L=0.2 H=1.3 1975-2 LOINC ALBUMIN 4.5 G/dL L=3.5 H=5.0 1751-7 LOINC TOTAL PROTEIN 8.1 g/L L=6.3 H=8.2 2885-2 LOINC A/G RATIO 1.3 58021-1 LOINC AGE 57 41985-0 LOINC eGFR NON-AFR 67 ml/min eGFR AFR AMER 81 ml/min URINALYSIS w/Microscopy/C&S if indicated - Collect Date/Time: 01/26/2023 14:34 [facility] ID: [id number] [address] [place], [place], [id number] LOINC: 36972-9 Test Value Unit Reference Range Code Code System Flag UR SOURCE UNKNOWN 15760-4 LOINC COLOR LT YELLOW YELLOW 5778-6 LOINC CLARITY CLEAR CLEAR 66730-2 LOINC SPEC GRAVITY <=1.005 1.000-1.030 5811-5 LOINC PH 5.5 5.0 - 6.5 5803-2 LOINC LEUK EST NEGATIVE NEGATIVE 5799-2 LOINC NITRATE NEGATIVE NEGATIVE PROTEIN NEGATIVE NEGATIVE 5804-0 LOINC GLUCOSE NEGATIVE NEGATIVE 94357-1 LOINC KETONES NEGATIVE NEGATIVE 59418-8 LOINC UROBILINOGEN 0.2 NEGATIVE 5818-0 LOINC BILIRUBIN NEGATIVE NEGATIVE 47620-9 LOINC BLOOD NEGATIVE NEGATIVE 18899-4 LOINC WBC 0-2 0 - 2 79801-5 LOINC RBC 0-2 0 - 2 63951-1 LOINC EPITHELIAL RARE RARE-FEW 11082-5 LOINC BACTERIA NONE SEEN NONE SEEN 40054-1 LOINC MUCUS NONE SEEN NONE SEEN 8247-9 LOINC YEAST NOT PRESENT NOT PRESENT 46792-1 LOINC CASTS NONE SEEN 41042-9 LOINC CRYSTALS NONE SEEN 10261-6 LOINC CULTURE? NO 8251-1 LOINC DIAGNOSIS N/A CT ABD/PEL W/ CONTRAST - Com pleted: 01/26/2023 16:32 LOINC: 08201-3 EXAM DESCRIPTION: CT ABD/PEL W/ CONTRAST REASON [...] for this examination. CONTRAST TYPE/DOSE: 100 of injected via lac COMPARISON: None available on [...] Wetzel M.D., D.O. MW: RAMIRO Report ID: [id number] Reading Location: [id number] Social History Type Status Start Date End Date Code Code Syst em Smoking History Never smoker (Never Smoked) 427643566 SNOMED CT Sex Male Hospital Discharge Instructions [...]
--- OUTSIDE RECORDS SUMMARY | 2024-09-22 09:07 | XMS_ITS | Encounter Summary ---
Author Organization [facility] Address [address] [place] [address] Care Team Providers Care Project Developer Name Role Phone Kevin Meyer Primary Care Provider [phone] Reason for Visit * Reason Onset Date Comments Pre-op Surgery/Cosmetic 09/21/2024 Pre-Op I nstructions/Education Encounter Details Date Type Department Care Team (Late st Contact Info) Description 09/21/2024 Telephone [facility] [address], [address] [place] [phone] Mando Rojas MD [address] [place] [address] Pre-op Surgery/Cosmetic (Pre-Op Instructions/Educatio n) Social History Tobacco Use Types Packs/Day Years Used Date Smoking Tobacco: Former Cigarettes 1 24 1 984 - 04/24/2007 Smokeless Tobacco: Former Comments:No tabbacco use sin ce 2007 Alcohol Use Standard Drinks/Week Comments Not [...] from your doctor or pharmacy? Never 08/10/2023 [facility] Utilities Answer Date Recorded In the past 12 months has e [employer], gas, oil, or water [employer] threatened to shut off services in your [...] and heating? Not hard at all 08/10/2023 [facility] Occup[facility] ional [facility] - Occupational Stress [...] money to buy more. Never true 08/10/19 24 Within the past 12 months, t he [...] any time in the past 12 m [facility], were you homeless or living in a skilled nursing (including now)? No 08/10/2023 Sex and Gender Information Value Date Recorded Sex Assigned at Male 06/30/2024 12:49 PM CDT Legal Sex Male 7:14 PM CDT Gender Identity Not on file Sexual Orientation Not on file documented as of this encounter Functional Status * Are you deaf or do you have serious difficulty hearing Answer Date of Assessment Author Status No 08/10/2023 2:58 PM [facility] Leonora Vanessa RN Active * Are you blind or do you have serious difficulty seeing, even when wearing glasses? Answer Date of Assessment Author Status No 08/10/2023 2:58 PM [facility]OT Leonora Vanessa RN Active * Do you have serious difficulty walking or climbing stairs? Answer Date of Assessment Author Status No 08/10/2023 2:58 PM [facility]OOT Leonora Vanessa RN Active * Do you have difficulty dressing or bathing? Answer Date of Assessment Author Status No 08/10/2023 2:58 PM MINOOT Leonora Vanessa RN Active * Because of a physical, mental, or emotional condition, do you have difficulty doing errands alone such as visiting a doctor's office or shopping? Answer Date of Assessment Author Status No 08/10/2023 2:58 PM [facility] Leonora Vanessa RN Active documented as of this encounter Mental Status * Because of a physical, mental, or emotional condition, do you have serious difficulty concentrating, remembering, or making decisions? Answer Entry Date Author Status No 08/10/2023 2:58 PM CDT Leonora Vanessa RN Active documented in this encounter Progress Notes * Jeanine Leiva RN - 09/21/2024 3:31 PM CDT 09/21/2024 - Copy of Pre-Op Instructions/Education sent through my chart to patient -Pre-Op instructions including but not limited to: - Nothing to eat or drink after midnight prior to day of surgery - Aspirin/Aspiring containing medications, NSAID's, blood thinners, is to be stopped 7 days prior to surgery (with permission) - Multivitamins, fish oil, phentermine, or ozempic/mounjaro is to be stopped 7 days prior to surgery (with permission) - Metformin is to be stopped 48 hours prior to surgery (with permission) - Pre-Anesthesia appointment date/time/place - Pre-Op appointment date/time/place - Brace/Collar fitting date/time/place if applicable - Post-Op appointment date/time/place - Fusion patients are to start 1200 mg calcium and 5000 units (125mcg) daily - If ALIF patient - Dr. Bledsoe's office will be calling them with appointment Amy (on HIPAA) verbalized understanding and had no further questions or concerns at this time. documented in this encounter Plan of Treatment Upcoming Encounters Date Type Department Care Team (Latest Contact Info) Description 11/17/2024 1:00 PM CDT [facility]ointment [facility] [address] Mando Rojas MD [address] [place] [address] 11/30/2024 7:30 AM CDT Hospital Encounter [facility] [place] [address] Mando Rojas MD [address] [place] [address] 11/30/2024 7:30 AM CDT - 11/30/2024 9:32 AM CDT Surgery [facility] [place] [address] Mando Rojas MD [address] [place] [address] REMOVAL OF BILATERAL LUMBAR 5- SACRAL 1 POSTERIOR SPINAL HARDWARE 12/14/2024 1:40 PM CDT Office Visit [facility] [address], [address] [place] [address] Jennifer Huang, GAYATHRI [address] [facility] [address] [place] [address] Scheduled Procedures Name Priority Associated Diagnoses Date/Ti me LAMINECTOMY DECOMPRESSION PAIN FROM IMPLANTED HARDWARE, STATUS POST LUMBAR FUSION T84.84, Z98.1 11/30/2024 7:30 AM CDT documented as of this encounter Goals Goal Patient Goal Type Associated Problems Recent Progress Patient-Stated? Author Family - family caregiver with be involved in care transitions and discharge planning Lifestyle No Oscar Wilkerson RN Autogenerated Goal Care Plan Autogenerated Problem No Maal Parker RN documented as of this encounter Visit Diagnoses Not on filedocumented in this encounter Additional Health Concerns Active Problems Noted Date Diagnosed Date Autogenerated Problem 09/21/2024 documented as of this encounter Care Teams Project Developer Relationship Specialty Start Date End Date Kevin Meyer PA PCP - General PHYSICIAN BILLER 05/28/21 documented as of this encounter
--- OUTSIDE RECORDS SUMMARY | 2024-09-22 09:07 | XMS_ITS | Encounter Summary ---
Author Organization [facility] Address [address] [facility] [address] [place] [address] Phone Care Team Providers Care Manager Chemical Name Role Phone Kevin Meyer Primary Care Provider Kevin Meyer Primary Care Provider [phone] Kevin Meyer Unavailable [phone] Benja Esteban MD Unavailable [phone] Samy Bravo MD PhD Unavailable [phone] Vivian Horn RN Unavailable [phone] Encounter Details Date Type Department Care Team (Late st Contact Info) Description 05/20/2017 Orders Only [facility] ProviderEstefania MD [address] [place] [address] Social History Tobacco Use Types Packs/Day Years Used Date Smoking Tobacco: Former Smokeless Tobacco: Never Alcohol Use Standard Drinks/Week Comments No 0 (1 standard drink = 0.6 oz pur e alcohol) Sex and Gender Information Value Date Recorded Sex Assigned at Not on file Legal Sex Male 3:25 AM BEHAVIORAL HEALTH TECHNICIAN Gender Identity Male 03/26/2021 11:53 AM BEHAVIORAL HEALTH TECHNICIAN Sexual Orientation Choose not to disclose 2021 11:53 AM BEHAVIORAL HEALTH TECHNICIAN documented as of this encounter Plan of Treatment Not on file documented as of this encounter Procedures Procedure Name Priority Date/Time Associated Diagnosis Comments DISCHARGE LABORATORY CUMULATIVE REPORT 05/20/2017 12:00 AM BEHAVIORAL HEALTH TECHNICIAN documented in this encounter Results * DISCHARGE LABORATORY CUMULATIVE REPORT (05/20/2017 12:00 AM BEHAVIORAL HEALTH TECHNICIAN) Narrative 05/20/2017 12:00 AM BEHAVIORAL HEALTH TECHNICIAN Ordered by an unspecified provider. us Historical Provider LAB BLOOD ORDERABLES Elena l Result documented in this encounter Visit Diagnoses Not on filedocumented in this encounter Care Teams Manager Chemical Relationship Specialty Start Date End Date Kevin Meyer PA [address] [place] [address] PCP - General 08/13/16 03/22/19 Kevin Meyer PA [address] [place] [address] PCP - General 03/23/19 Kevin Meyer PA [address] [place] [address] 03/23/19 Benja Esteban MD [address] [place] [address] Medical Oncologist/Permit Technician Hematology and Oncology 02/28/20 Samy Bravo MD PhD [address] [place] [address] Resident Psychiatry 05/31/20 09/17/20 Vivian Horn, RN [address] [address] [place] Outpatient Fire Battalion Chief 02/01/21 02/28/21 documented as of this encounter
--- OUTSIDE RECORDS SUMMARY | 2024-09-22 09:07 | XMS_ITS | Clinical Summary ---
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 Active EPINEPHrine (EPIPEN) 0.3 mg/0.3 mL Auto-Injector INJECT 0.3 MILLILITER (0.3 MG) BY INTRAMUSCULAR ROUTE ONCE NEEDED FOR ANAPHYLAXIS Active rimegepant (Nurtec ODT) 75 mg Tablet, Rapid Dissolve Take 75 mg by mouth. 022 Active LORazepam (Loreev XR) 1 mg Capsule, Sust. Release 24HR Loreev XR 1 mg capsule,extended release 022 Active venlafaxine (EFFEXOR XR) 150 mg Extended Release 24 hour capsule Take 150 mg by mouth daily. 021 Active diazePAM (VALIUM) 2 mg tablet Take 1 mg by mouth 1 time daily as needed. 023 Active OLANZapine (ZyPREXA) 2.5 mg tablet 024 Active Vraylar 1.5 mg Capsule capsule Take 1.5 mg by mouth daily. 024 Active naloxone (NARCAN) 4 mg/spray [place], Non-Aerosol EMERGENCY USE ONLY: Administer 1 spray (4 mg) in one nostril one time. May repeat in alternating nostrils every 2-3 min until responsive or EMS arrives. 2 Each 3 06/27/2 024 Active modafiniL (PROVIGIL) 100 mg Tablet Take 100 mg by mouth daily. 024 Active albuterol sulfate HFA 90 mcg/actuation aerosol inhaler 2 Puffs by See Admin Instructions route see administration instructions. Active azithromycin (ZITHROMAX) 250 mg tablet Take 250 mg by mouth daily. Active codeine phosphate/gua ifenesin (CODEINE-GUAI FENESIN ORAL) Take by mouth every 6 hours as needed for Other (See Comment) (cough). Active oxyCODONE (ROXICODONE) 5 mg tabletIndicat ions:Malignan t carcinoid tumor of ascending colon (CMS/HCC) Take 1 Tablet (5 mg) by mouth every 6 hours as needed for Pain. Max Daily Amount: 20 mg 90 Tablet 025 Active cyanocobalami n 1,000 mcg Tablet Take 1 tablet by mouth every other day. 45 Tablet 1 025 Active potassium CHLORIDE (K-DUR,KLOR-C ON M20) 20 mEq Extended Release tablet TAKE 1 TABLET BY MOUTH EVERY DAY 90 Tablet 1 025 Active potassium chloride (KLOR-CON M20) 20 mEq Extended Release tablet TAKE 1 TABLET BY MOUTH DAILY. 90 Tablet 1 024 2024 Discontinued Vitamin B-12 1,000 mcg Tablet TAKE 1 TABLET BY MOUTH EVERY DAY 90 Tablet 1 024 2024 Discontinued oxyCODONE (ROXICODONE) 5 mg tabletIndicat ions:Malignan t carcinoid tumor of ascending colon (CMS/HCC) Take 1 Tablet (5 mg) by mouth every 6 hours as needed for Pain. 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 He thinks that his insurance may not be accepted at [facility] but we will try and [...] Encounters Date Type Department Care Team Description 09/21/2024 Orders Only [facility] Oncology and Hematology - [address] [place] [address] Jorden Serrano MD 09/16/2024 Orders Only [facility] Oncology and Hematology - [address] [place] [address] Jorden Serrano MD 09/13/2024 External Device Data STL ABSTRACTION Provider, Abstract 09/10/2024 [facility] Oncology and Hematology - [place] [address] [place] [address] Jorden Serrano MD 09/01/2024 Refill [facility] Oncology and Hematology - [address] [place] [id number] Jorden Serrano MD 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) 08/19/2024 Orders Only [facility] Oncology and Hematology - [address] [place] [id number] Jorden Serrano MD 08/16/2024 Orders Only [facility] Oncology and Hematology - [address] Jorden Serrano MD 08/15/2024 Orders Only [facility] Oncology and Hematology - [address] Jorden Serrano MD Benign hypertension; 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) 08/10/2024 External Device Data STL ABSTRACTION Provider, Abstract 08/09/2024 External Device Data STL ABSTRACTION Provider, Abstract 08/02/2024 Refill [facility] Oncology and Hematology - [address] Jorden Serrano MD 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) 08/01/2024 Orders Only [facility] Oncology and Hematology - [address] [place] [id number] Jorden Serrano MD Benign hypertension; 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) 07/18/2024 Orders Only [facility] Oncology and Hematology - [address] [place] [address] Jorden Serrano MD Benign hypertension; 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) 07/07/2024 Orders Only [facility] Oncology and Hematology - [address] [place] [address] Jorden Serrano MD 07/05/2024 2:15 PM CDT Office Visit [facility] Oncology and Hematology [facility] [address] [place] [address] Jorden Serrano MD 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) (Primary Dx) 07/04/2024 Orders Only [facility] Oncology and Hematology [facility] [address] [place] [address] Jorden Serrano MD Benign hypertension; [...] Sign Reading Time Taken Comments Blood Pressure 117/70 07/05/2024 2:14 PM CDT Pulse 70 07/05/2024 2:14 PM CDT Temperature 35.9 C (96.6 F) 07/05/2024 2:14 PM CDT Respiratory Rate 15 07/05/2024 2:14 PM CDT Oxygen Saturation 96% 07/05/2024 2:14 PM CDT Inhaled Oxygen Concentration - - Weight 87.7 kg (193 lb 6.4 oz) 07/05/2024 2:14 P M CDT Height 182.9 cm (6') 12/05/2021 8:44 AM CDT Body Mass Index 26.23 12/05/2021 8:44 AM CDT Plan of Treatment Upcoming Encounters Date Type Department Care Team (Late st Contact Info) Description 10/11/2024 2:15 PM CDT Office Visit [facility] Oncology and Hematology [address] [place] [address] Jorden Serrano MD [address] [facility] [address] [place] [address] Health Maintenance Due Date Last Done Comments Pre-Diabetes and Diabetes Screening 1965 HEPATITIS B VACCINES (1 of 3 - 19+ 3-dose series) 1985 INFLUENZA VACCINE (#1) 2024 2, 05/28/2021, 05/28/2021, Additional history exists DTAP/TDAP/TD [...] Associated Diagnosis Comments COMPREHENSIVE METABOLIC PANEL Routine 09/09/2024 2:06 PM CDT BASIC METABOLIC PANEL Routine 09/09/2024 1:48 PM CDT CBC WITH DIFFERENTIAL Routine 09/09/2024 1:45 PM CDT SEROTONIN LEVEL Routine 09/09/2024 7:14 AM CDT CBC WITH DIFFERENTIAL Routine 08/12/2024 4:19 PM CDT COMPREHENSIVE METABOLIC PANEL Routine 08/12/2024 10:36 AM CDT HX COLONOSCOPY Routine 07/02/2021 from Last 3 Months or Most Recently Relevant to Health Maintenance Results * COMPREHENSIVE METABOLIC PANEL (09/09/2024 2:06 PM CDT) Only the most recent of2 resultswithin the time period is included. Blood Jorden Serrano MD CHEMISTRY ORDERABLES Final Resu lt * BASIC METABOLIC PANEL (09/09/2024 1:48 PM CDT) Blood Jorden Serrano MD CHEMISTRY ORDERABLES Final Resu lt * CBC WITH DIFFERENTIAL (09/09/2024 1:45 PM CDT) Only the most recent of2 resultswithin the time period is included. Blood Jorden Serrano MD HEMATOLOGY ORDERABLES Final Res ult * SEROTONIN LEVEL (09/09/2024 7:14 AM CDT) Blood Jorden Serrano MD CHEMISTRY ORDERABLES Final Resu lt * HX COLONOSCOPY (07/02/2021) Abstract Provider GENERIC SURGICAL HISTORY Final Result from Last 3 Months or Most Recently Relevant to Health Maintenance Insurance MEDICAID [place] [facility] [id number] Care Teams Gerentological Physiotherapist Relationship Specialty Start Date End Date Kevin Meyer PA [address] [place] [address] PCP - General Physician Neon Pumper 05/31/21
--- OUTSIDE RECORDS SUMMARY | 2024-09-22 09:07 | XMS_ITS | Encounter Summary ---
Author Organization [facility] Address [address] [facility] [place] [address] Phone Care Team Providers Care Ceo And Co Founder Name Role Phone Kevin Meyer Primary Care Provider [phone] Amy Allen APRN, EXTRUDING PRESS ADJUSTER Unavailable + [phone] Dawit MARISCAL MD, Courtney Unavailable [phone] Brad Bone MD Unavailable [phone] Vanda Jimenez APRN, EXTRUDING PRESS ADJUSTER Unavailable Min Mario MD Unavailable Encounter Details Date Type Department Care Team (Latest Contact Info) Description 02/25/2023 Transcribe [facility] Preop[facility]Pac[facility] [address] [place] [address] Tavo Polo MD PhD [address] [place] [address] Abnormal echocardiogram (Primary Dx); Preprocedural [...] st Contact Info) Description 02/02/2025 10:15 AM DRAW BENCH OPERATOR Office Visit [facility] [address] [place] [address] Min Mario MD [address], [facility] [address] [place] [address] documented as of this encounter Results * (ABNORMAL) BASIC METABOLIC PANEL W/ CALCIUM TOTAL (04/16/2023 3:23 PM DRAW BENCH OPERATOR) SODIUM 137 136 - 145 mmol/L 04/16/2023 5:06 PM [facility] POTASSIUM 3.5 3.5 - 5.1 mmol/L 04/16/2023 5:06 PM [facility] CHLORIDE 100 98 - 107 mmol/L 04/16/2023 5:06 PM [facility] CO2, VENOUS 29 22 - 30 mmol/L 04/16/2023 5:06 PM [facility] ANION GAP 11.5 <18.0 mmol/L 04/16/2023 5:06 PM [facility] GLUCOSE 92 70 - 99 mg/dL 04/16/2023 5:06 PM [facility] BUN 7(L) 8 - 26 mg/dL 04/16/2023 5:06 PM [facility] CREATININE, BLOOD 1.00 0.70 - 1.30 mg/dL 04/16/2023 5:06 PM [facility] BUN/CREATININE RATIO 7(L) 12 - 20 ratio 04/16/2023 5:06 PM [facility] CALCIUM 9.1 8.7 - 10.5 mg/dL 04/16/2023 5:06 PM [facility] IS THE PATIENT REQUIRED TO BE FASTING? No 04/16/2023 5:06 PM DRAW BENCH OPERATOR [facility] GFR, ESTIMATED >60 >=60 04/16/2023 5:06 PM DRAW BENCH OPERATOR [facility] Comment: Creatinine Clearance is the preferred criteria for selecting drug dose adjustments in renally impaired patients. The GFR is provided as additional pertinent clinical information. GFR is reported in mL/min/1.73 sq m. Calculation based on the Chronic Kidney Disease Epidemiology Collaboration (CKD- EPI) equation refit without adjustment for race. GFR, EST. >60 >=60 024 5:06 PM DRAW BENCH OPERATOR [facility] GFR, EST. NONAFRICAN >60 >=60 04/16/2023 5:06 PM DRAW BENCH OPERATOR [facility] Blood Venipuncture / Unknown 04/16/2023 3:23 PM DRAW BENCH OPERATOR 04/16/2023 4:25 PM DRAW BENCH OPERATOR Tavo Polo MD PhD CHEMISTRY ORDERABLES Final Result [facility] [address] [place] [address] documented in this encounter Visit Diagnoses Diagnosis Abnormal echocardiogram- Primary Nonspecific (abnormal) findings on radiological and other examination of other intrathoracic organs Preprocedural cardiovascular examination Pre-operative cardiovascular examination documented in this encounter Care Teams Ceo And Co Founder Relationship Specialty Start Date End Date Kevin Meyer PAC [address] [place] [address] PCP - General Physician Optimization Engineer 07/15/17 Amy Allen APRN, EXTRUDING PRESS ADJUSTER [address] [facility] [address] [place] [address] Nurse Practitioner Cardiology 01/27/23 Merlene Pastor III, MD [address] [place] [address] Consulting Physician Urology 10/28/21 Brad Bone MD [address] [place] [address] Consulting Physician Neurology 09/04/22 Vanda Jimenez APRN, EXTRUDING PRESS ADJUSTER [address] [place] [address] Nurse Practitioner Advanced Practice Nurse 07/31/22 Min Mario MD #[address] [address] Consulting Physician Urology 12/17/23 documented as of this encounter
--- OUTSIDE RECORDS SUMMARY | 2024-09-22 09:07 | XMS_ITS | Encounter Summary ---
Author Organization [facility] Address [address] [place] [address] Care Team Providers Care Car Rental Agent Name Role Phone Kevin Meyer Primary Care Provider [phone] Reason for Visit * Reason Onset Date Comments Prior Authorization 09/22/2024 Encounter Details Date Type Department Care Team (Late st Contact Info) Description 09/22/2024 Telephone [facility] Multispecialty Care - [facility] [address] [facility], [address] [place] [address] Mando Rojas MD [address] [place] [address] Prior Authorization Social History Tobacco Use Types Packs/Day Years [...] from your doctor or pharmacy? Never 08/10/2023 [facility] Utilities Answer Date Recorded In the [...] and heating? Not hard at all 08/10/2023 [facility] [place] of Occupat ional Health - Occupational Stress [...] any time in the past 12 m [facility], were you homeless or living in a long term (including now)? No 08/10/2023 Sex and Gender Information Value Date Recorded Sex Assigned at Male 06/30/2024 12:49 PM CDT Legal Sex Male 7:14 PM CDT Gender Identity Not on file Sexual Orientation Not on file documented as of this encounter Functional Status * Are you deaf or do you have serious difficulty hearing Answer Date of Assessment Author Status No 08/10/2023 2:58 PM CDT Leonora Vanessa RN Active * Are you [...] Progress Notes * Jeanine Leiva RN - 09/22/2024 8:20 AM CDT 09/22/2024 - [facility] Medicare Replacement - Primary Auth/Case # [id number] - Pending - All requested medical and imaging documentation as well as any injection records, physical therapy, and materials used uploaded with authorization. CPT Code: 94791 Dx Code: T84.84XD documented in this encounter Plan of Treatment Upcoming Encounters Date Type Department Care Team (Latest Contact Info) Description 11/17/2024 1:[address] [facility] [place] [address] Mando Rojas MD [address] [place] [address] 11/30/2024 7:30 AM CDT Hospital Encounter [facility] [place] [address] Mando Rojas MD [address] [place], [place] [address] 11/30/2024 7:30 AM CDT - 11/30/2024 9:32 AM CDT Surgery [facility] [place], [place] [id number] Mando Rojas MD [address] [place] [address] REMOVAL OF BILATERAL LUMBAR 5- SACRAL 1 POSTERIOR SPINAL HARDWARE 12/14/2024 1:40 PM CDT Office Visit [facility] Multispecialty Care - [facility] [address] [facility], [address] [place] [address] SalOumarJennifer Sujatha SERVER SECURITY ADMINISTRATOR [address] [facility] [address] [place] [address] Scheduled Procedures Name Priority Associated Diagnoses Date/Ti [...] Autogenerated Goal Care Plan Autogenerated Problem No Mala Parker RN documented as of this encounter Visit Diagnoses Not on filedocumented in this encounter Additional Health Concerns Active Problems Noted Date Diagnosed Date Autogenerated Problem 09/21/2024 documented as of this encounter Care Teams Car Rental Agent Relationship Specialty Start Date End Date Kevin Meyer PA PCP - General PHYSICIAN MOBILE EQUIPMENT MECHANIC 05/28/21 documented as of this encounter
--- OUTSIDE RECORDS SUMMARY | 2024-09-22 09:07 | XMS_ITS | Encounter Summary ---
Author Organization [facility] Address [facility] [place] [address] Care Team Providers Care Petrographer Name Role Phone Kevin Meyer Primary Care Provider [phone] Encounter Details Date Type Department Care Team (Latest Contact Info) Description 09/21/2024 [place] [facility] Message Enc [facility] Multispecialty Care - [facility] [address] [facility], [address] [place] [id number] Pari, [facility] Provider Pre-Op Instructions/Educat ion Social History Tobacco Use Types Packs/Day Years [...] and heating? Not hard at all 08/10/2023 [facility] of Occupat ional Health - [...] any time in the past 12 m [facility], were you homeless or living in [...] PM CDT Leonora Vanessa RN Active * Do you have serious difficulty walking or climbing stairs? Answer Date of Assessment Author Status No 08/10/2023 2:58 PM CDT Leonora Vanessa RN Active * Do you have difficulty dressing or bathing? Answer Date of Assessment Author Status No 08/10/2023 2:58 PM CDT Leonora Vanessa RN Active * Because of a physical, mental, or emotional condition, do you have difficulty doing errands alone such as visiting a doctor's office or shopping? Answer Date of Assessment Author Status No 08/10/2023 2:58 PM CDT Leonora Vanessa RN Active documented as of this encounter Mental Status * Because of a physical, mental, or emotional condition, do you have serious difficulty concentrating, remembering, or making decisions? Answer Entry Date Author Status No 08/10/2023 2:58 PM CDT Leonora Vanessa RN Active documented in this encounter Plan of Treatment Upcoming Encounters Date Type Department Care Team (Latest Contact Info) Description 11/17/2024 1:[address] [facility] [place] [address] Mando Rojas MD 3 [facility] [place] [facility] [address] 11/30/2024 7:30 AM CDT Hospital Encounter [facility] [place] [address] Mando Rojas MD 3 [facility] [address] 11/30/2024 7:30 AM CDT - 11/30/2024 9:[address] [place] [address] Mando Rojas MD 3 [facility] [address] REMOVAL OF BILATERAL LUMBAR 5- SACRAL 1 POSTERIOR SPINAL HARDWARE 12/14/2024 1:40 PM CDT Office Visit [facility] Multispecialty Care - [facility] [address], [address] [place] [address] Jennifer Huang APRN [address] [facility] [address] [place] [address] Scheduled Procedures Name Priority Associated Diagnoses Date/Ti me LAMINECTOMY DECOMPRESSION PAIN FROM IMPLANTED HARDWARE, STATUS POST LUMBAR FUSION T84.84, Z98.1 11/30/2024 7:30 AM CDT documented as of this encounter Goals Goal Patient Goal Type Associated Problems Recent Progress Patient-Stated? Author Family - family caregiver with be involved in care transitions and discharge planning Lifestyle No Oscar Wilkerson, RN Autogenerated Goal Care Plan Autogenerated Problem No Mala Parker RN documented as of this encounter Visit Diagnoses Not on filedocumented in this encounter Additional Health Concerns Active Problems Noted Date Diagnosed Date Autogenerated Problem 09/21/2024 documented as of this encounter Care Teams Petrographer Relationship Specialty Start Date End Date Kevin Meyer PA PCP - General PHYSICIAN GOVERNMENT RELATIONS DIRECTOR 05/28/21 documented as of this encounter
--- OUTSIDE RECORDS SUMMARY | 2024-09-22 09:08 | XMS_ITS ---
Author Organization [facility] Address [address] [place] [address] Care Team Providers Care All Round Butcher Name Role Phone Kevin Meyer Primary Care Provider [phone] Kevin Meyer Unavailable [phone] Benja Esteban MD Unavailable [phone] Active Problems Problem Noted Date Diagnosed Date Knee pain 02/13/2021 Malignant neoplasm of colon 02/13/2021 Essential hypertension 01/16/2021 Cervical radiculopathy 01/15/2021 Personal history of other ma lignant neoplasm of large intestine 12/17/2020 Overview (12/17/2020): Added automatically from request for surgery [id number] 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/13/2020 Overview (12/13/2020): Added automatically from request for surgery [id number] Malignant carcinoid tumor of the ileum Stimulant use disorder 05/31/2020 Severe alcohol use disorder 05/31/2020 PTSD (post-traumatic stress disorder) 05/31/2020 Chronic bilateral low back pain without sciatica 04/07/2020 Assessment & Plan (05/04/2020 12:54 PM PERINATAL DIRECTOR): - flexeril 10mg TID PRN - [place] 10mg q4 PRN - lidocaine patch daily - avoid IV ketorelac and NSAIDs with starting lithium - heating packs Assessment & Plan (05/03/2020 9:56 AM PERINATAL DIRECTOR): - flexeril 10mg TID PRN - [place] 10mg q4 PRN - lidocaine patch daily - avoid IV ketorelac and NSAIDs with starting lithium - heating packs Assessment & Plan (05/02/2020 11:56 AM PERINATAL DIRECTOR): - flexeril 10mg TID PRN - [place] 10mg q4 PRN - lidocaine patch daily - avoid IV ketorelac and NSAIDs with starting lithium - heating packs Assessment & Plan (05/01/2020 10:58 AM PERINATAL DIRECTOR): - flexeril 10mg TID PRN - NORCO 10mg q4 PRN - lidocaine patch daily - avoid IV ketorelac and NSAIDs with starting lithium - heating pads Assessment & Plan (04/30/2020 12:17 PM PERINATAL DIRECTOR): - flexeril 10mg TID PRN - NORCO 10mg q4 PRN - lidocaine patch daily - avoid IV ketorelac and NSAIDs with starting lithium - heating pads Assessment & Plan (04/28/2020 8:01 AM PERINATAL DIRECTOR): - flexeril 10mg TID PRN - NORCO 10mg q4 PRN - lidocaine patch daily - avoid IV ketorelac and NSAIDs with starting lithium - heating pads Assessment & Plan (04/27/2020 8:47 AM PERINATAL DIRECTOR): - flexeril 10mg TID PRN - NORCO 10mg q4 PRN - lidocaine patch daily - avoid IV ketorelac and NSAIDs given ADILENE - heating pads Assessment & Plan (04/26/2020 10:11 AM PERINATAL DIRECTOR): - flexeril 10mg TID PRN - NORCO 10mg q4 PRN - lidocaine patch daily - avoid IV ketorelac and NSAIDs given ADILENE - heating pads Assessment & Plan (04/25/2020 9:45 AM PERINATAL DIRECTOR): - flexeril 10mg TID PRN - NORCO 10mg q4 PRN - lidocaine patch daily - avoid IV ketorelac and NSAIDs given ADILENE - heating pads Assessment & Plan (04/24/2020 9:49 AM PERINATAL DIRECTOR): - flexeril 10mg TID PRN - NORCO 10mg q4 PRN - lidocaine patch daily - avoid IV ketorelac and NSAIDs given ADILENE - heating pads Assessment & Plan (04/23/2020 10:21 AM PERINATAL DIRECTOR): - flexeril 10mg TID PRN - NORCO 10mg q4 PRN - lidocaine patch daily - avoid IV ketorelac and NSAIDs given ADILENE - heating pads Assessment & Plan (04/21/2020 8:38 AM PERINATAL DIRECTOR): - flexeril 10mg TID PRN - NORCO 10mg q4 PRN - lidocaine patch daily - avoid IV ketorelac and NSAIDs given ADILENE - heating pads Assessment & Plan (04/20/2020 12:05 PM PERINATAL DIRECTOR): - flexeril 10mg TID PRN - NORCO 10mg q4 PRN - lidocaine patch daily - avoid IV ketorelac and NSAIDs given ADILENE - heating pads Assessment & Plan (04/19/2020 9:46 AM PERINATAL DIRECTOR): - flexeril 10mg TID PRN - NORCO 10mg q4 PRN - lidocaine patch daily - avoid IV ketorelac and NSAIDs given ADILENE - heating pads Assessment & Plan (04/18/2020 10:09 AM PERINATAL DIRECTOR): - flexeril 10mg TID PRN - NORCO 10mg q4 PRN - lidocaine patch daily - avoid IV ketorelac and NSAIDs given ADILENE - heating pads Assessment & Plan (04/17/2020 9:31 AM PERINATAL DIRECTOR): - flexeril 10mg TID PRN - NORCO 10mg q4 PRN - lidocaine patch daily - avoid IV ketorelac and NSAIDs given ADILENE - heating pads Assessment & Plan (04/16/2020 11:51 AM PERINATAL DIRECTOR): - flexeril 10mg TID PRN - NORCO 10mg q4 PRN - lidocaine patch daily - avoid IV ketorelac and NSAIDs given ADILENE - heating pads Assessment & Plan (04/14/2020 9:57 AM PERINATAL DIRECTOR): - flexeril 10mg TID PRN - NORCO 10mg q4 PRN - lidocaine patch daily - avoid IV ketorelac and NSAIDs given ADILENE - heating pads Assessment & Plan (04/10/2020 10:04 PM PERINATAL DIRECTOR): - flexeril 10mg TID PRN - NORCO 10mg q4 PRN - lidocaine patch daily - avoid IV ketorelac and NSAIDs given ADILENE - heating pads Assessment & Plan (04/08/2020 3:23 PM PERINATAL DIRECTOR): Patient endorsing exacerbation of chronic back pain [...] -PT Assessment & Plan (04/07/2020 6:23 AM PERINATAL DIRECTOR): Patient endorsing exacerbation of chronic back pain and left ankle pain (had previous traumatic injury, required surgery). No other red flag symptoms/signs. Reports he has received injections in the past -Continue PRN norco, flexeril -Lidocaine patch to back -PT Depressive disorder 04/03/2020 Assessment & Plan (05/04/2020 12:54 PM PERINATAL DIRECTOR): 54yo M with reported history of bipolar [...] more bright. Plan to discharge patient 05/04. [place] augmentation started with moderate improvements seen in depressive symptoms with ECT, titrated to 300 mg BID with level 0.6. - Continue OLANZapine, 20 mg, oral, Nightly, for depression - Continue Venlafaxine XR 150 mg PO daily, for depression - Continue lithium to 300 mg BID - [place] level 0.6 on 05/03 - This is [...] 05/04 Assessment & Plan (05/03/2020 9:56 AM PERINATAL DIRECTOR): 54yo M with reported history of bipolar [...] more bright. Plan to discharge patient 05/04. [place] augmentation started with moderate improvements seen in depressive symptoms with ECT, titrated to 300 mg BID with level 0.6. - Continue OLANZapine, 20 mg, oral, Nightly, for depression - Continue Venlafaxine XR 150 mg PO daily, for depression - Continue lithium to 300 mg BID - [place] level 0.6 on 05/03 - This is [...] permission) Assessment & Plan (05/02/2020 11:56 AM PERINATAL DIRECTOR): 54yo M with reported history of bipolar [...] permission) Assessment & Plan (05/01/2020 10:58 AM PERINATAL DIRECTOR): 54yo M with reported history of bipolar [...] family Assessment & Plan (04/30/2020 12:17 PM PERINATAL DIRECTOR): 54yo M with reported history of bipolar [...] family Assessment & Plan (04/28/2020 8:02 AM PERINATAL DIRECTOR): 54yo M with reported history of bipolar [...] depression Assessment & Plan (04/27/2020 8:47 AM PERINATAL DIRECTOR): 54yo M with reported history of bipolar [...] depression Assessment & Plan (04/26/2020 10:11 AM PERINATAL DIRECTOR): 54yo M with reported history of bipolar [...] depression Assessment & Plan (04/25/2020 9:47 AM PERINATAL DIRECTOR): 54yo M with reported history of bipolar [...] depression Assessment & Plan (04/24/2020 9:48 AM PERINATAL DIRECTOR): 54yo M with reported history of bipolar [...] depression Assessment & Plan (04/23/2020 10:21 AM PERINATAL DIRECTOR): 54yo M with reported history of bipolar [...] depression Assessment & Plan (04/21/2020 8:36 AM PERINATAL DIRECTOR): 54yo M with reported history of bipolar [...] depression Assessment & Plan (04/20/2020 12:05 PM PERINATAL DIRECTOR): 54yo M with reported history of bipolar [...] depression Assessment & Plan (04/19/2020 9:48 AM PERINATAL DIRECTOR): 54yo M with reported history of bipolar [...] depression Assessment & Plan (04/18/2020 10:08 AM PERINATAL DIRECTOR): 54yo M with reported history of bipolar [...] depression Assessment & Plan (04/17/2020 9:32 AM PERINATAL DIRECTOR): 54yo M with reported history of bipolar [...] depression Assessment & Plan (04/16/2020 11:49 AM PERINATAL DIRECTOR): 54yo M with reported history of bipolar [...] depression Assessment & Plan (04/14/2020 9:56 AM PERINATAL DIRECTOR): 54yo M with reported history of bipolar [...] depression Assessment & Plan (04/13/2020 9:46 AM PERINATAL DIRECTOR): 54yo M with reported history of bipolar [...] for ECT by cardiology, no diagnosis of ischemia/[place], no focal wall movement abnormalities on echo, [...] procedure Assessment & Plan (04/10/2020 3:25 PM PERINATAL DIRECTOR): Presented to ED 04/02 with suicidal ideation, depression. Initially admitted to psychiatry for medication adjustment, received ECT x1 04/06 -Continue current meds: lexapro 5, effexor 112.5, olanzapine 20mg QHS - If COVID test is negative, transfer to Psychiatry floor. Assessment & Plan (04/08/2020 3:24 PM PERINATAL DIRECTOR): Presented to ED 04/02 with suicidal ideation, depression. Initially admitted to psychiatry for medication adjustment, received ECT x1 04/06 -Psych consulted upon transfer to medicine but are following only peripherally over the weekend -Continue current meds: lexapro 5, effexor 112.5, olanzapine 20mg QHS -Psychiatry recommending discontinuing suicide precautions with 1:1 sitter Assessment & Plan (04/07/2020 6:14 AM PERINATAL DIRECTOR): Presented to ED 04/02 with suicidal ideation, depression. Initially admitted to psychiatry for medication adjustment, received ECT x1 04/06 -Psych c/s upon transfer -Continue current meds: lexapro 5, effexor 112.5, olanzapine 20mg QHS -Suicide precautions, 1:1 sitter Assessment & Plan (04/12/2020 9:11 AM PERINATAL DIRECTOR): 54yo M with reported history of bipolar [...] for ECT by cardiology, no diagnosis of ischemia/[place], no focal wall movement abnormalities on echo, [...] midnight Assessment & Plan (04/03/2020 2:04 PM PERINATAL DIRECTOR): 54yo M with reported history of bipolar [...] disease) Assessment & Plan (05/04/2020 12:54 PM PERINATAL DIRECTOR): Patient has a long history of GERD. - Protonix 40 mg daily Assessment & Plan (05/03/2020 9:56 AM PERINATAL DIRECTOR): Patient has a long history of GERD. - Protonix 40 mg daily Assessment & Plan (05/02/2020 11:57 AM PERINATAL DIRECTOR): Patient has a long history of GERD. - Protonix 40 mg daily Assessment & Plan (05/01/2020 10:58 AM PERINATAL DIRECTOR): Patient has a long history of GERD. - Protonix 40 mg daily Assessment & Plan (04/30/2020 12:17 PM PERINATAL DIRECTOR): Patient has a long history of GERD. - Protonix 40 mg daily Assessment & Plan (04/28/2020 8:00 AM PERINATAL DIRECTOR): Patient has a long history of GERD. -Protonix 40 mg daily Assessment & Plan (04/27/2020 8:47 AM PERINATAL DIRECTOR): Patient has a long history of GERD. -Protonix 40 mg daily Assessment & Plan (04/26/2020 10:11 AM PERINATAL DIRECTOR): Patient has a long history of GERD. -Protonix 40 mg daily Assessment & Plan (04/25/2020 9:45 AM PERINATAL DIRECTOR): Patient has a long history of GERD. -Protonix 40 mg daily Assessment & Plan (04/24/2020 9:48 AM PERINATAL DIRECTOR): Patient has a long history of GERD. -Protonix 40 mg daily Assessment & Plan (04/23/2020 10:21 AM PERINATAL DIRECTOR): Patient has a long history of GERD. -Protonix 40 mg daily Assessment & Plan (04/21/2020 8:37 AM PERINATAL DIRECTOR): Patient has a long history of GERD. -Protonix 40 mg daily Assessment & Plan (04/20/2020 12:05 PM PERINATAL DIRECTOR): Patient has a long history of GERD. -Protonix 40 mg daily Assessment & Plan (04/19/2020 9:46 AM PERINATAL DIRECTOR): Patient has a long history of GERD. -Protonix 40 mg daily Assessment & Plan (04/18/2020 10:09 AM PERINATAL DIRECTOR): Patient has a long history of GERD. -Protonix 40 mg daily Assessment & Plan (04/17/2020 9:31 AM PERINATAL DIRECTOR): Patient has a long history of GERD. -Protonix 40 mg daily Assessment & Plan (04/16/2020 11:51 AM PERINATAL DIRECTOR): Patient has a long history of GERD. -Protonix 40 mg daily Assessment & Plan (04/14/2020 9:56 AM PERINATAL DIRECTOR): Patient has a long history of GERD. -Protonix 40 mg daily Assessment & Plan (04/10/2020 3:25 PM PERINATAL DIRECTOR): Continue pantoprazole Assessment & Plan (04/08/2020 3:17 PM PERINATAL DIRECTOR): Continue pantoprazole Assessment & Plan (04/07/2020 6:15 AM PERINATAL DIRECTOR): Continue pantoprazole Assessment & Plan (04/03/2020 5:54 PM PERINATAL DIRECTOR): Patient has a long history of GERD. -Protonix 40 mg daily Hypothyroidism 04/03/2020 Assessment & Plan (05/04/2020 12:54 PM PERINATAL DIRECTOR): Patient carries a diagnosis of hypothyroidism for several years. He is currently treated on levothyroxine 75 mcg daily. - Repeat TFT tests in 6 weeks - continue levothyroxine 75 mcg daily Assessment & Plan (05/03/2020 9:56 AM PERINATAL DIRECTOR): Patient carries a diagnosis of hypothyroidism for several years. He is currently treated on levothyroxine 75 mcg daily. - Repeat TFT tests in 6 weeks - continue levothyroxine 75 mcg daily Assessment & Plan (05/02/2020 11:57 AM PERINATAL DIRECTOR): Patient carries a diagnosis of hyperthyroidism for several years. He is currently treated on levothyroxine 75 mcg daily. - Repeat TFT tests in 6 weeks - continue levothyroxine 75 mcg daily Assessment & Plan (05/01/2020 10:58 AM PERINATAL DIRECTOR): Patient carries a diagnosis of hyperthyroidism for several years. He is currently treated on levothyroxine 75 mcg daily. - Repeat TFT tests in 6 weeks - continue levothyroxine 75 mcg daily Assessment & Plan (04/30/2020 12:17 PM PERINATAL DIRECTOR): Patient carries a diagnosis of hyperthyroidism for several years. He is currently treated on levothyroxine 75 mcg daily. - Repeat TFT tests in 6 weeks - continue levothyroxine 75 mcg daily Assessment & Plan (04/28/2020 8:00 AM PERINATAL DIRECTOR): Patient carries a diagnosis of hyperthyroidism for several years. He is currently treated on levothyroxine 75 mcg daily. - Repeat TFT tests in 6 weeks - continue levothyroxine 75 mcg daily Assessment & Plan (04/27/2020 8:47 AM PERINATAL DIRECTOR): Patient carries a diagnosis of hyperthyroidism for several years. He is currently treated on levothyroxine 75 mcg daily. - Repeat TFT tests in 6 weeks - continue levothyroxine 75 mcg daily Assessment & Plan (04/26/2020 10:11 AM PERINATAL DIRECTOR): Patient carries a diagnosis of hyperthyroidism for several years. He is currently treated on levothyroxine 75 mcg daily. - Repeat TFT tests in 6 weeks - continue levothyroxine 75 mcg daily Assessment & Plan (04/25/2020 9:45 AM PERINATAL DIRECTOR): Patient carries a diagnosis of hyperthyroidism for several years. He is currently treated on levothyroxine 75 mcg daily. - Repeat TFT tests in 6 weeks - continue levothyroxine 75 mcg daily Assessment & Plan (04/24/2020 9:48 AM PERINATAL DIRECTOR): Patient carries a diagnosis of hyperthyroidism for several years. He is currently treated on levothyroxine 75 mcg daily. - Repeat TFT tests in 6 weeks - continue levothyroxine 75 mcg daily Assessment & Plan (04/23/2020 10:21 AM PERINATAL DIRECTOR): Patient carries a diagnosis of hyperthyroidism for several years. He is currently treated on levothyroxine 75 mcg daily. - Repeat TFT tests in 6 weeks - continue levothyroxine 75 mcg daily Assessment & Plan (04/21/2020 8:37 AM PERINATAL DIRECTOR): Patient carries a diagnosis of hyperthyroidism for several years. He is currently treated on levothyroxine 75 mcg daily. - Repeat TFT tests in 6 weeks - continue levothyroxine 75 mcg daily Assessment & Plan (04/20/2020 12:05 PM PERINATAL DIRECTOR): Patient carries a diagnosis of hyperthyroidism for several years. He is currently treated on levothyroxine 75 mcg daily. - Repeat TFT tests in 6 weeks - continue levothyroxine 75 mcg daily Assessment & Plan (04/19/2020 9:46 AM PERINATAL DIRECTOR): Patient carries a diagnosis of hyperthyroidism for several years. He is currently treated on levothyroxine 75 mcg daily. - Repeat TFT tests in 6 weeks - continue levothyroxine 75 mcg daily Assessment & Plan (04/18/2020 10:09 AM PERINATAL DIRECTOR): Patient carries a diagnosis of hyperthyroidism for several years. He is currently treated on levothyroxine 75 mcg daily. - Repeat TFT tests in 6 weeks - continue levothyroxine 75 mcg daily Assessment & Plan (04/17/2020 9:31 AM PERINATAL DIRECTOR): Patient carries a diagnosis of hyperthyroidism for several years. He is currently treated on levothyroxine 75 mcg daily. - Repeat TFT tests in 6 weeks - continue levothyroxine 75 mcg daily Assessment & Plan (04/16/2020 11:51 AM PERINATAL DIRECTOR): Patient carries a diagnosis of hyperthyroidism for several years. He is currently treated on levothyroxine 75 mcg daily. - Repeat TFT tests in 6 weeks - continue levothyroxine 75 mcg daily Assessment & Plan (04/14/2020 9:57 AM PERINATAL DIRECTOR): Patient carries a diagnosis of hyperthyroidism for several years. He is currently treated on levothyroxine 75 mcg daily. - Repeat TFT tests in 6 weeks - continue levothyroxine 75 mcg daily Assessment & Plan (04/10/2020 3:25 PM PERINATAL DIRECTOR): 04/02: TSH 6.49, T4 WNL at 1.38 Continue synthroid 75mcg; repeat TFTs 6-8 weeks Assessment & Plan (04/08/2020 3:17 PM PERINATAL DIRECTOR): 04/02: TSH 6.49, T4 WNL at 1.38 Continue synthroid 75mcg; repeat TFTs 6-8 weeks Assessment & Plan (04/07/2020 6:16 AM PERINATAL DIRECTOR): 04/02: TSH 6.49, T4 WNL at 1.38 Continue synthroid 75mcg; repeat TFTs 6-8 weeks Assessment & Plan (04/10/2020 9:35 PM PERINATAL DIRECTOR): Patient carries a diagnosis of hyperthyroidism for several years. He is currently treated on levothyroxine 75 mcg daily. - Repeat TFT tests in 6 weeks - continue levothyroxine 75 mcg daily Hyperlipemia 04/03/2020 Assessment & Plan (05/04/2020 12:55 PM PERINATAL DIRECTOR): Has a stated history of hyperlipidemia has been stably treated with atorvastatin 40 mg daily for many years. Patient's LDL low on lipid panel. Notable elevated triglycerides but not fasting sample. - atorvastatin 40 mg daily - fenofibrate 145mg daily Assessment & Plan (05/03/2020 9:56 AM PERINATAL DIRECTOR): Has a stated history of hyperlipidemia has been stably treated with atorvastatin 40 mg daily for many years. Patient's LDL low on lipid panel. Notable elevated triglycerides but not fasting sample. - atorvastatin 40 mg daily - fenofibrate 145mg daily Assessment & Plan (05/02/2020 11:57 AM PERINATAL DIRECTOR): Has a stated history of hyperlipidemia has been stably treated with atorvastatin 40 mg daily for many years. Patient's LDL low on lipid panel. Notable elevated triglycerides but not fasting sample. - atorvastatin 40 mg daily - fenofibrate 145mg daily Assessment & Plan (05/01/2020 10:58 AM PERINATAL DIRECTOR): Has a stated history of hyperlipidemia has been stably treated with atorvastatin 40 mg daily for many years. Patient's LDL low on lipid panel. Notable elevated triglycerides but not fasting sample. - atorvastatin 40 mg daily - tricor 145mg daily Assessment & Plan (04/30/2020 12:17 PM PERINATAL DIRECTOR): Has a stated history of hyperlipidemia has been stably treated with atorvastatin 40 mg daily for many years. Patient's LDL low on lipid panel. Notable elevated triglycerides but not fasting sample. - atorvastatin 40 mg daily - tricor 145mg daily Assessment & Plan (04/28/2020 8:01 AM PERINATAL DIRECTOR): Has a stated history of hyperlipidemia has been stably treated with atorvastatin 40 mg daily for many years. Patient's LDL low on lipid panel. Notable elevated triglycerides but not fasting sample. - atorvastatin 40 mg daily - tricor 145mg daily Assessment & Plan (04/27/2020 8:47 AM PERINATAL DIRECTOR): Has a stated history of hyperlipidemia has been stably treated with atorvastatin 40 mg daily for many years. Patient's LDL low on lipid panel. Notable elevated triglycerides but not fasting sample. - atorvastatin 40 mg daily - tricor 145mg daily Assessment & Plan (04/26/2020 10:11 AM PERINATAL DIRECTOR): Has a stated history of hyperlipidemia has been stably treated with atorvastatin 40 mg daily for many years. Patient's LDL low on lipid panel. Notable elevated triglycerides but not fasting sample. - atorvastatin 40 mg daily - tricor 145mg daily Assessment & Plan (04/25/2020 9:45 AM PERINATAL DIRECTOR): Has a stated history of hyperlipidemia has [...] daily Assessment & Plan (04/24/2020 9:48 AM PERINATAL DIRECTOR): Has a stated history of hyperlipidemia has [...] daily Assessment & Plan (04/23/2020 10:21 AM PERINATAL DIRECTOR): Has a stated history of hyperlipidemia has [...] daily Assessment & Plan (04/21/2020 8:38 AM PERINATAL DIRECTOR): Has a stated history of hyperlipidemia has [...] daily Assessment & Plan (04/20/2020 12:05 PM PERINATAL DIRECTOR): Has a stated history of hyperlipidemia has [...] daily Assessment & Plan (04/19/2020 9:46 AM PERINATAL DIRECTOR): Has a stated history of hyperlipidemia has [...] daily Assessment & Plan (04/18/2020 10:09 AM PERINATAL DIRECTOR): Has a stated history of hyperlipidemia has [...] daily Assessment & Plan (04/17/2020 9:31 AM PERINATAL DIRECTOR): Has a stated history of hyperlipidemia has [...] daily Assessment & Plan (04/16/2020 11:51 AM PERINATAL DIRECTOR): Has a stated history of hyperlipidemia has [...] daily Assessment & Plan (04/14/2020 9:56 AM PERINATAL DIRECTOR): Has a stated history of hyperlipidemia has [...] daily Assessment & Plan (04/13/2020 9:46 AM PERINATAL DIRECTOR): Has a stated history of hyperlipidemia has [...] daily Assessment & Plan (04/10/2020 3:25 PM PERINATAL DIRECTOR): Continue atorvastatin 40 Assessment & Plan (04/08/2020 3:17 PM PERINATAL DIRECTOR): Continue atorvastatin 40 Assessment & Plan (04/07/2020 6:15 AM PERINATAL DIRECTOR): Continue atorvastatin 40 Assessment & Plan (04/12/2020 9:03 AM PERINATAL DIRECTOR): Has a stated history of hyperlipidemia has [...] (08/31/2018): Added automatically from request for surgery [id number] Assessment & Plan (09/06/2018 12:49 PM CDT): [...] 04/10/2020 Assessment & Plan (05/04/2020 12:55 PM PERINATAL DIRECTOR): Cr 1.3 -> 1.22 resolving. Baseline <1. - encourage fluids - avoid nephrotoxic meds Assessment & Plan (05/03/2020 9:56 AM PERINATAL DIRECTOR): Cr 1.3 -> 1.22 resolving. Baseline <1. - encourage fluids - avoid nephrotoxic meds Assessment & Plan (05/02/2020 11:57 AM PERINATAL DIRECTOR): Cr 1.3 -> 1.22 resolving. Baseline <1. - encourage fluids - avoid nephrotoxic meds Assessment & Plan (05/01/2020 10:58 AM PERINATAL DIRECTOR): Cr 1.3 -> 1.22 resolving. Baseline <1. - encourage fluids - avoid nephrotoxic meds Assessment & Plan (04/19/2020 9:46 AM PERINATAL DIRECTOR): Cr 1.3 -> 1.22 resolving. Baseline <1. - encourage fluids - avoid nephrotoxic meds Assessment & Plan (04/18/2020 10:09 AM PERINATAL DIRECTOR): Cr 1.3 -> 1.22 resolving. Baseline <1. - encourage fluids - avoid nephrotoxic meds Assessment & Plan (04/16/2020 11:51 AM PERINATAL DIRECTOR): Cr 1.3 -> 1.22 resolving. Baseline <1. - encourage fluids - avoid nephrotoxic meds Assessment & Plan (04/14/2020 9:57 AM PERINATAL DIRECTOR): Cr 1.3 -> 1.22 resolving. Baseline <1. - encourage fluids - avoid nephrotoxic meds Assessment & Plan (04/13/2020 9:47 AM PERINATAL DIRECTOR): Cr 1.3 -> 1.22 resolving. Baseline <1. - encourage fluids - avoid nephrotoxic meds Assessment & Plan (04/12/2020 9:04 AM PERINATAL DIRECTOR): Cr 1.3 -> 1.22 resolving. Baseline <1. - encourage fluids - avoid nephrotoxic meds Diarrhea 04/10/2020 04/20/2020 Assessment & Plan (05/04/2020 12:55 PM PERINATAL DIRECTOR): Patient recently had constipation, was treated with BID miralax and senna- docusate. Was having diarrhea last week so scheduled bowel regimen discontinued. - discontinued daily senna-docusate - miralax PRN Assessment & Plan (05/03/2020 9:56 AM PERINATAL DIRECTOR): Patient recently had constipation, was treated with BID miralax and senna- docusate. Was having diarrhea last week so scheduled bowel regimen discontinued. - discontinued daily senna-docusate - miralax PRN Assessment & Plan (05/01/2020 10:59 AM PERINATAL DIRECTOR): Patient recently had constipation, was treated with BID miralax and senna- docusate. Was having diarrhea last week so scheduled bowel regimen discontinued. - discontinued daily senna-docusate - miralax PRN Assessment & Plan (04/19/2020 9:47 AM PERINATAL DIRECTOR): Patient recently had constipation, was treated with BID miralax and senna- docusate. Was having diarrhea last week so scheduled bowel regimen discontinued. - discontinued daily senna-docusate - miralax PRN Assessment & Plan (04/16/2020 11:52 AM PERINATAL DIRECTOR): Patient recently had constipation, was treated with BID miralax and senna- docusate. Was having diarrhea last week so scheduled bowel regimen discontinued. - discontinue daily senna-docusate - miralax PRN Assessment & Plan (04/14/2020 9:57 AM PERINATAL DIRECTOR): Patient recently had constipation, was treated with BID miralax and senna- docusate. Endorsing nonbloody diarrhea for last 2 days. - discontinue daily senna-docusate - miralax PRN Assessment & Plan (04/10/2020 10:09 PM PERINATAL DIRECTOR): Patient recently had constipation, was treated with BID miralax and senna- docusate. Endorsing nonbloody diarrhea for last 2 days. - discontinue daily senna-docusate - miralax PRN Ventral hernia without obstr uction or gangrene 08/31/2018 04/20/2020 Overview (08/31/2018): Added automatically from request for surgery [id number] Assessment & Plan (09/06/2018 12:51 PM CDT): The procedure along with the risks, benefits, and post operative period were discussed with the patient and his significant other who agree. Fracture of navicular bone of foot 05/16/2015 04/20/2020
--- OUTSIDE RECORDS SUMMARY | 2024-09-22 09:08 | XMS_ITS | Referral Summary ---
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 Active venlafaxine XR (EFFEXOR-XR) 150 [...] (12/17/2020): Added automatically from request for surgery [id number] 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/13/2020 Overview (12/13/2020): Added automatically from request for surgery [id number] Malignant carcinoid tumor of the ileum Stimulant use disorder 05/31/2020 Severe alcohol use disorder 05/31/2020 PTSD (post-traumatic stress disorder) 05/31/2020 Chronic bilateral low back pain without sciatica 04/07/2020 Assessment & Plan (05/04/2020 12:54 PM STOCK LIFTER): - flexeril 10mg TID PRN - [place] 10mg q4 PRN - lidocaine patch daily - avoid IV ketorelac and NSAIDs with starting lithium - heating packs Assessment & Plan (05/03/2020 9:56 AM STOCK LIFTER): - flexeril 10mg TID PRN - [place] 10mg q4 PRN - lidocaine patch daily - avoid IV ketorelac and NSAIDs with starting lithium - heating packs Assessment & Plan (05/02/2020 11:56 AM STOCK LIFTER): - flexeril 10mg TID PRN - [place] 10mg q4 PRN - lidocaine patch daily - avoid IV ketorelac and NSAIDs with starting lithium - heating packs Assessment & Plan (05/01/2020 10:58 AM STOCK LIFTER): - flexeril 10mg TID PRN - NORCO 10mg q4 PRN - lidocaine patch daily - avoid IV ketorelac and NSAIDs with starting lithium - heating pads Assessment & Plan (04/30/2020 12:17 PM STOCK LIFTER): - flexeril 10mg TID PRN - NORCO 10mg q4 PRN - lidocaine patch daily - avoid IV ketorelac and NSAIDs with starting lithium - heating pads Assessment & Plan (04/28/2020 8:01 AM STOCK LIFTER): - flexeril 10mg TID PRN - NORCO 10mg q4 PRN - lidocaine patch daily - avoid IV ketorelac and NSAIDs with starting lithium - heating pads Assessment & Plan (04/27/2020 8:47 AM STOCK LIFTER): - flexeril 10mg TID PRN - NORCO 10mg q4 PRN - lidocaine patch daily - avoid IV ketorelac and NSAIDs given ADILENE - heating pads Assessment & Plan (04/26/2020 10:11 AM STOCK LIFTER): - flexeril 10mg TID PRN - NORCO 10mg q4 PRN - lidocaine patch daily - avoid IV ketorelac and NSAIDs given ADILENE - heating pads Assessment & Plan (04/25/2020 9:45 AM STOCK LIFTER): - flexeril 10mg TID PRN - NORCO 10mg q4 PRN - lidocaine patch daily - avoid IV ketorelac and NSAIDs given ADILENE - heating pads Assessment & Plan (04/24/2020 9:49 AM STOCK LIFTER): - flexeril 10mg TID PRN - NORCO 10mg q4 PRN - lidocaine patch daily - avoid IV ketorelac and NSAIDs given [place]ILENE - heating pads Assessment & Plan (04/23/2020 10:21 AM STOCK LIFTER): - flexeril 10mg TID PRN - NORCO 10mg q4 PRN - lidocaine patch daily - avoid IV ketorelac and NSAIDs given ADILENE - heating pads Assessment & Plan (04/21/2020 8:38 AM STOCK LIFTER): - flexeril 10mg TID PRN - NORCO 10mg q4 PRN - lidocaine patch daily - avoid IV ketorelac and NSAIDs given ADILENE - heating pads Assessment & Plan (04/20/2020 12:05 PM STOCK LIFTER): - flexeril 10mg TID PRN - NORCO 10mg q4 PRN - lidocaine patch daily - avoid IV ketorelac and NSAIDs given ADILENE - heating pads Assessment & Plan (04/19/2020 9:46 AM STOCK LIFTER): - flexeril 10mg TID PRN - NORCO 10mg q4 PRN - lidocaine patch daily - avoid IV ketorelac and NSAIDs given ADILENE - heating pads Assessment & Plan (04/18/2020 10:09 AM STOCK LIFTER): - flexeril 10mg TID PRN - NORCO 10mg q4 PRN - lidocaine patch daily - avoid IV ketorelac and NSAIDs given ADILENE - heating pads Assessment & Plan (04/17/2020 9:31 AM STOCK LIFTER): - flexeril 10mg TID PRN - NORCO 10mg q4 PRN - lidocaine patch daily - avoid IV ketorelac and NSAIDs given ADILENE - heating pads Assessment & Plan (04/16/2020 11:51 AM STOCK LIFTER): - flexeril 10mg TID PRN - NORCO 10mg q4 PRN - lidocaine patch daily - avoid IV ketorelac and NSAIDs given ADILENE - heating pads Assessment & Plan (04/14/2020 9:57 AM STOCK LIFTER): - flexeril 10mg TID PRN - NORCO 10mg q4 PRN - lidocaine patch daily - avoid IV ketorelac and NSAIDs given ADILENE - heating pads Assessment & Plan (04/10/2020 10:04 PM STOCK LIFTER): - flexeril 10mg TID PRN - NORCO 10mg q4 PRN - lidocaine patch daily - avoid IV ketorelac and NSAIDs given ADILENE - heating pads Assessment & Plan (04/08/2020 3:23 PM STOCK LIFTER): Patient endorsing exacerbation of chronic back pain [...] -PT Assessment & Plan (04/07/2020 6:23 AM STOCK LIFTER): Patient endorsing exacerbation of chronic back pain and left ankle pain (had previous traumatic injury, required surgery). No other red flag symptoms/signs. Reports he has received injections in the past -Continue PRN norco, flexeril -Lidocaine patch to back -PT Depressive disorder 04/03/2020 Assessment & Plan (05/04/2020 12:54 PM STOCK LIFTER): 54yo M with reported history of bipolar [...] more bright. Plan to discharge patient 05/04. [place] augmentation started with moderate improvements seen in depressive symptoms with ECT, titrated to 300 mg BID with level 0.6. - Continue OLANZapine, 20 mg, oral, Nightly, for depression - Continue Venlafaxine XR 150 mg PO daily, for depression - Continue lithium to 300 mg BID - [place] level 0.6 on 05/03 - This is [...] 05/04 Assessment & Plan (05/03/2020 9:56 AM STOCK LIFTER): 54yo M with reported history of bipolar [...] more bright. Plan to discharge patient 05/04. [place] augmentation started with moderate improvements seen in depressive symptoms with ECT, titrated to 300 mg BID with level 0.6. - Continue OLANZapine, 20 mg, oral, Nightly, for depression - Continue Venlafaxine XR 150 mg PO daily, for depression - Continue lithium to 300 mg BID - [place] level 0.6 on 05/03 - This is [...] permission) Assessment & Plan (05/02/2020 11:56 AM STOCK LIFTER): 54yo M with reported history of bipolar [...] permission) Assessment & Plan (05/01/2020 10:58 AM STOCK LIFTER): 54yo M with reported history of bipolar [...] family Assessment & Plan (04/30/2020 12:17 PM STOCK LIFTER): 54yo M with reported history of bipolar [...] family Assessment & Plan (04/28/2020 8:02 AM STOCK LIFTER): 54yo M with reported history of bipolar [...] depression Assessment & Plan (04/27/2020 8:47 AM STOCK LIFTER): 54yo M with reported history of bipolar [...] depression Assessment & Plan (04/26/2020 10:11 AM STOCK LIFTER): 54yo M with reported history of bipolar [...] depression Assessment & Plan (04/25/2020 9:47 AM STOCK LIFTER): 54yo M with reported history of bipolar [...] depression Assessment & Plan (04/24/2020 9:48 AM STOCK LIFTER): 54yo M with reported history of bipolar [...] depression Assessment & Plan (04/23/2020 10:21 AM STOCK LIFTER): 54yo M with reported history of bipolar [...] depression Assessment & Plan (04/21/2020 8:36 AM STOCK LIFTER): 54yo M with reported history of bipolar [...] depression Assessment & Plan (04/20/2020 12:05 PM STOCK LIFTER): 54yo M with reported history of bipolar [...] depression Assessment & Plan (04/19/2020 9:48 AM STOCK LIFTER): 54yo M with reported history of bipolar [...] depression Assessment & Plan (04/18/2020 10:08 AM STOCK LIFTER): 54yo M with reported history of bipolar [...] depression Assessment & Plan (04/17/2020 9:32 AM STOCK LIFTER): 54yo M with reported history of bipolar [...] depression Assessment & Plan (04/16/2020 11:49 AM STOCK LIFTER): 54yo M with reported history of bipolar [...] depression Assessment & Plan (04/14/2020 9:56 AM STOCK LIFTER): 54yo M with reported history of bipolar [...] depression Assessment & Plan (04/13/2020 9:46 AM STOCK LIFTER): 54yo M with reported history of bipolar [...] for ECT by cardiology, no diagnosis of ischemia/NM, no focal wall movement abnormalities on echo, [...] procedure Assessment & Plan (04/10/2020 3:25 PM STOCK LIFTER): Presented to ED 04/02 with suicidal ideation, depression. Initially admitted to psychiatry for medication adjustment, received ECT x1 04/06 -Continue current meds: lexapro 5, effexor 112.5, olanzapine 20mg QHS - If COVID test is negative, transfer to Psychiatry floor. Assessment & Plan (04/08/2020 3:24 PM STOCK LIFTER): Presented to ED 04/02 with suicidal ideation, depression. Initially admitted to psychiatry for medication adjustment, received ECT x1 04/06 -Psych consulted upon transfer to medicine but are following only peripherally over the weekend -Continue current meds: lexapro 5, effexor 112.5, olanzapine 20mg QHS -Psychiatry recommending discontinuing suicide precautions with 1:1 sitter Assessment & Plan (04/07/2020 6:14 AM STOCK LIFTER): Presented to ED 04/02 with suicidal ideation, depression. Initially admitted to psychiatry for medication adjustment, received ECT x1 04/06 -Psych c/s upon transfer -Continue current meds: lexapro 5, effexor 112.5, olanzapine 20mg QHS -Suicide precautions, 1:1 sitter Assessment & Plan (04/12/2020 9:11 AM STOCK LIFTER): 54yo M with reported history of bipolar [...] for ECT by cardiology, no diagnosis of ischemia/NM, no focal wall movement abnormalities on echo, [...] midnight Assessment & Plan (04/03/2020 2:04 PM STOCK LIFTER): 54yo M with reported history of bipolar [...] ECT, will facilitate transfer to [facility] to facilitate ECT consult Uptitrate SSRI and otherwise continue home depakote and zyprexa (pt reports taking these medications daily for past several yrs) PRNs agitation and comfort Milieu, supportive, and group therapy Apprec intervention Obtain collateral Full code Dispo: home with GERD (gastroesophageal reflux disease) Assessment & Plan (05/04/2020 12:54 PM STOCK LIFTER): Patient has a long history of GERD. - Protonix 40 mg daily Assessment & Plan (05/03/2020 9:56 AM STOCK LIFTER): Patient has a long history of GERD. - Protonix 40 mg daily Assessment & Plan (05/02/2020 11:57 AM STOCK LIFTER): Patient has a long history of GERD. - Protonix 40 mg daily Assessment & Plan (05/01/2020 10:58 AM STOCK LIFTER): Patient has a long history of GERD. - Protonix 40 mg daily Assessment & Plan (04/30/2020 12:17 PM STOCK LIFTER): Patient has a long history of GERD. - Protonix 40 mg daily Assessment & Plan (04/28/2020 8:00 AM STOCK LIFTER): Patient has a long history of GERD. -Protonix 40 mg daily Assessment & Plan (04/27/2020 8:47 AM STOCK LIFTER): Patient has a long history of GERD. -Protonix 40 mg daily Assessment & Plan (04/26/2020 10:11 AM STOCK LIFTER): Patient has a long history of GERD. -Protonix 40 mg daily Assessment & Plan (04/25/2020 9:45 AM STOCK LIFTER): Patient has a long history of GERD. -Protonix 40 mg daily Assessment & Plan (04/24/2020 9:48 AM STOCK LIFTER): Patient has a long history of GERD. -Protonix 40 mg daily Assessment & Plan (04/23/2020 10:21 AM STOCK LIFTER): Patient has a long history of GERD. -Protonix 40 mg daily Assessment & Plan (04/21/2020 8:37 AM STOCK LIFTER): Patient has a long history of GERD. -Protonix 40 mg daily Assessment & Plan (04/20/2020 12:05 PM STOCK LIFTER): Patient has a long history of GERD. -Protonix 40 mg daily Assessment & Plan (04/19/2020 9:46 AM STOCK LIFTER): Patient has a long history of GERD. -Protonix 40 mg daily Assessment & Plan (04/18/2020 10:09 AM STOCK LIFTER): Patient has a long history of GERD. -Protonix 40 mg daily Assessment & Plan (04/17/2020 9:31 AM STOCK LIFTER): Patient has a long history of GERD. -Protonix 40 mg daily Assessment & Plan (04/16/2020 11:51 AM STOCK LIFTER): Patient has a long history of GERD. -Protonix 40 mg daily Assessment & Plan (04/14/2020 9:56 AM STOCK LIFTER): Patient has a long history of GERD. -Protonix 40 mg daily Assessment & Plan (04/10/2020 3:25 PM STOCK LIFTER): Continue pantoprazole Assessment & Plan (04/08/2020 3:17 PM STOCK LIFTER): Continue pantoprazole Assessment & Plan (04/07/2020 6:15 AM STOCK LIFTER): Continue pantoprazole Assessment & Plan (04/03/2020 5:54 PM STOCK LIFTER): Patient has a long history of GERD. -Protonix 40 mg daily Hypothyroidism 04/03/2020 Assessment & Plan (05/04/2020 12:54 PM STOCK LIFTER): Patient carries a diagnosis of hypothyroidism for several years. He is currently treated on levothyroxine 75 mcg daily. - Repeat TFT tests in 6 weeks - continue levothyroxine 75 mcg daily Assessment & Plan (05/03/2020 9:56 AM STOCK LIFTER): Patient carries a diagnosis of hypothyroidism for several years. He is currently treated on levothyroxine 75 mcg daily. - Repeat TFT tests in 6 weeks - continue levothyroxine 75 mcg daily Assessment & Plan (05/02/2020 11:57 AM STOCK LIFTER): Patient carries a diagnosis of hyperthyroidism for several years. He is currently treated on levothyroxine 75 mcg daily. - Repeat TFT tests in 6 weeks - continue levothyroxine 75 mcg daily Assessment & Plan (05/01/2020 10:58 AM STOCK LIFTER): Patient carries a diagnosis of hyperthyroidism for several years. He is currently treated on levothyroxine 75 mcg daily. - Repeat TFT tests in 6 weeks - continue levothyroxine 75 mcg daily Assessment & Plan (04/30/2020 12:17 PM STOCK LIFTER): Patient carries a diagnosis of hyperthyroidism for several years. He is currently treated on levothyroxine 75 mcg daily. - Repeat TFT tests in 6 weeks - continue levothyroxine 75 mcg daily Assessment & Plan (04/28/2020 8:00 AM STOCK LIFTER): Patient carries a diagnosis of hyperthyroidism for several years. He is currently treated on levothyroxine 75 mcg daily. - Repeat TFT tests in 6 weeks - continue levothyroxine 75 mcg daily Assessment & Plan (04/27/2020 8:47 AM STOCK LIFTER): Patient carries a diagnosis of hyperthyroidism for several years. He is currently treated on levothyroxine 75 mcg daily. - Repeat TFT tests in 6 weeks - continue levothyroxine 75 mcg daily Assessment & Plan (04/26/2020 10:11 AM STOCK LIFTER): Patient carries a diagnosis of hyperthyroidism for several years. He is currently treated on levothyroxine 75 mcg daily. - Repeat TFT tests in 6 weeks - continue levothyroxine 75 mcg daily Assessment & Plan (04/25/2020 9:45 AM STOCK LIFTER): Patient carries a diagnosis of hyperthyroidism for several years. He is currently treated on levothyroxine 75 mcg daily. - Repeat TFT tests in 6 weeks - continue levothyroxine 75 mcg daily Assessment & Plan (04/24/2020 9:48 AM STOCK LIFTER): Patient carries a diagnosis of hyperthyroidism for several years. He is currently treated on levothyroxine 75 mcg daily. - Repeat TFT tests in 6 weeks - continue levothyroxine 75 mcg daily Assessment & Plan (04/23/2020 10:21 AM STOCK LIFTER): Patient carries a diagnosis of hyperthyroidism for several years. He is currently treated on levothyroxine 75 mcg daily. - Repeat TFT tests in 6 weeks - continue levothyroxine 75 mcg daily Assessment & Plan (04/21/2020 8:37 AM STOCK LIFTER): Patient carries a diagnosis of hyperthyroidism for several years. He is currently treated on levothyroxine 75 mcg daily. - Repeat TFT tests in 6 weeks - continue levothyroxine 75 mcg daily Assessment & Plan (04/20/2020 12:05 PM STOCK LIFTER): Patient carries a diagnosis of hyperthyroidism for several years. He is currently treated on levothyroxine 75 mcg daily. - Repeat TFT tests in 6 weeks - continue levothyroxine 75 mcg daily Assessment & Plan (04/19/2020 9:46 AM STOCK LIFTER): Patient carries a diagnosis of hyperthyroidism for several years. He is currently treated on levothyroxine 75 mcg daily. - Repeat TFT tests in 6 weeks - continue levothyroxine 75 mcg daily Assessment & Plan (04/18/2020 10:09 AM STOCK LIFTER): Patient carries a diagnosis of hyperthyroidism for several years. He is currently treated on levothyroxine 75 mcg daily. - Repeat TFT tests in 6 weeks - continue levothyroxine 75 mcg daily Assessment & Plan (04/17/2020 9:31 AM STOCK LIFTER): Patient carries a diagnosis of hyperthyroidism for several years. He is currently treated on levothyroxine 75 mcg daily. - Repeat TFT tests in 6 weeks - continue levothyroxine 75 mcg daily Assessment & Plan (04/16/2020 11:51 AM STOCK LIFTER): Patient carries a diagnosis of hyperthyroidism for several years. He is currently treated on levothyroxine 75 mcg daily. - Repeat TFT tests in 6 weeks - continue levothyroxine 75 mcg daily Assessment & Plan (04/14/2020 9:57 AM STOCK LIFTER): Patient carries a diagnosis of hyperthyroidism for several years. He is currently treated on levothyroxine 75 mcg daily. - Repeat TFT tests in 6 weeks - continue levothyroxine 75 mcg daily Assessment & Plan (04/10/2020 3:25 PM STOCK LIFTER): 04/02: TSH 6.49, T4 WNL at 1.38 Continue synthroid 75mcg; repeat TFTs 6-8 weeks Assessment & Plan (04/08/2020 3:17 PM STOCK LIFTER): 04/02: TSH 6.49, T4 WNL at 1.38 Continue synthroid 75mcg; repeat TFTs 6-8 weeks Assessment & Plan (04/07/2020 6:16 AM STOCK LIFTER): 04/02: TSH 6.49, T4 WNL at 1.38 Continue synthroid 75mcg; repeat TFTs 6-8 weeks Assessment & Plan (04/10/2020 9:35 PM STOCK LIFTER): Patient carries a diagnosis of hyperthyroidism for several years. He is currently treated on levothyroxine 75 mcg daily. - Repeat TFT tests in 6 weeks - continue levothyroxine 75 mcg daily Hyperlipemia 04/03/2020 Assessment & Plan (05/04/2020 12:55 PM STOCK LIFTER): Has a stated history of hyperlipidemia has been stably treated with atorvastatin 40 mg daily for many years. Patient's LDL low on lipid panel. Notable elevated triglycerides but not fasting sample. - atorvastatin 40 mg daily - fenofibrate 145mg daily Assessment & Plan (05/03/2020 9:56 AM STOCK LIFTER): Has a stated history of hyperlipidemia has been stably treated with atorvastatin 40 mg daily for many years. Patient's LDL low on lipid panel. Notable elevated triglycerides but not fasting sample. - atorvastatin 40 mg daily - fenofibrate 145mg daily Assessment & Plan (05/02/2020 11:57 AM STOCK LIFTER): Has a stated history of hyperlipidemia has been stably treated with atorvastatin 40 mg daily for many years. Patient's LDL low on lipid panel. Notable elevated triglycerides but not fasting sample. - atorvastatin 40 mg daily - fenofibrate 145mg daily Assessment & Plan (05/01/2020 10:58 AM STOCK LIFTER): Has a stated history of hyperlipidemia has been stably treated with atorvastatin 40 mg daily for many years. Patient's LDL low on lipid panel. Notable elevated triglycerides but not fasting sample. - atorvastatin 40 mg daily - tricor 145mg daily Assessment & Plan (04/30/2020 12:17 PM STOCK LIFTER): Has a stated history of hyperlipidemia has been stably treated with atorvastatin 40 mg daily for many years. Patient's LDL low on lipid panel. Notable elevated triglycerides but not fasting sample. - atorvastatin 40 mg daily - tricor 145mg daily Assessment & Plan (04/28/2020 8:01 AM STOCK LIFTER): Has a stated history of hyperlipidemia has been stably treated with atorvastatin 40 mg daily for many years. Patient's LDL low on lipid panel. Notable elevated triglycerides but not fasting sample. - atorvastatin 40 mg daily - tricor 145mg daily Assessment & Plan (04/27/2020 8:47 AM STOCK LIFTER): Has a stated history of hyperlipidemia has been stably treated with atorvastatin 40 mg daily for many years. Patient's LDL low on lipid panel. Notable elevated triglycerides but not fasting sample. - atorvastatin 40 mg daily - tricor 145mg daily Assessment & Plan (04/26/2020 10:11 AM STOCK LIFTER): Has a stated history of hyperlipidemia has been stably treated with atorvastatin 40 mg daily for many years. Patient's LDL low on lipid panel. Notable elevated triglycerides but not fasting sample. - atorvastatin 40 mg daily - tricor 145mg daily Assessment & Plan (04/25/2020 9:45 AM STOCK LIFTER): Has a stated history of hyperlipidemia has [...] daily Assessment & Plan (04/24/2020 9:48 AM STOCK LIFTER): Has a stated history of hyperlipidemia has [...] daily Assessment & Plan (04/23/2020 10:21 AM STOCK LIFTER): Has a stated history of hyperlipidemia has [...] daily Assessment & Plan (04/21/2020 8:38 AM STOCK LIFTER): Has a stated history of hyperlipidemia has [...] daily Assessment & Plan (04/20/2020 12:05 PM STOCK LIFTER): Has a stated history of hyperlipidemia has [...] daily Assessment & Plan (04/19/2020 9:46 AM STOCK LIFTER): Has a stated history of hyperlipidemia has [...] daily Assessment & Plan (04/18/2020 10:09 AM STOCK LIFTER): Has a stated history of hyperlipidemia has [...] daily Assessment & Plan (04/17/2020 9:31 AM STOCK LIFTER): Has a stated history of hyperlipidemia has [...] daily Assessment & Plan (04/16/2020 11:51 AM STOCK LIFTER): Has a stated history of hyperlipidemia has [...] daily Assessment & Plan (04/14/2020 9:56 AM STOCK LIFTER): Has a stated history of hyperlipidemia has [...] daily Assessment & Plan (04/13/2020 9:46 AM STOCK LIFTER): Has a stated history of hyperlipidemia has [...] daily Assessment & Plan (04/10/2020 3:25 PM STOCK LIFTER): Continue atorvastatin 40 Assessment & Plan (04/08/2020 3:17 PM STOCK LIFTER): Continue atorvastatin 40 Assessment & Plan (04/07/2020 6:15 AM STOCK LIFTER): Continue atorvastatin 40 Assessment & Plan (04/12/2020 9:03 AM STOCK LIFTER): Has a stated history of hyperlipidemia has [...] (08/31/2018): Added automatically from request for surgery [id number] Assessment & Plan (09/06/2018 12:49 PM CDT): [...] 04/10/2020 Assessment & Plan (05/04/2020 12:55 PM STOCK LIFTER): Cr 1.3 -> 1.22 resolving. Baseline <1. - encourage fluids - avoid nephrotoxic meds Assessment & Plan (05/03/2020 9:56 AM STOCK LIFTER): Cr 1.3 -> 1.22 resolving. Baseline <1. - encourage fluids - avoid nephrotoxic meds Assessment & Plan (05/02/2020 11:57 AM STOCK LIFTER): Cr 1.3 -> 1.22 resolving. Baseline <1. - encourage fluids - avoid nephrotoxic meds Assessment & Plan (05/01/2020 10:58 AM STOCK LIFTER): Cr 1.3 -> 1.22 resolving. Baseline <1. - encourage fluids - avoid nephrotoxic meds Assessment & Plan (04/19/2020 9:46 AM STOCK LIFTER): Cr 1.3 -> 1.22 resolving. Baseline <1. - encourage fluids - avoid nephrotoxic meds Assessment & Plan (04/18/2020 10:09 AM STOCK LIFTER): Cr 1.3 -> 1.22 resolving. Baseline <1. - encourage fluids - avoid nephrotoxic meds Assessment & Plan (04/16/2020 11:51 AM STOCK LIFTER): Cr 1.3 -> 1.22 resolving. Baseline <1. - encourage fluids - avoid nephrotoxic meds Assessment & Plan (04/14/2020 9:57 AM STOCK LIFTER): Cr 1.3 -> 1.22 resolving. Baseline <1. - encourage fluids - avoid nephrotoxic meds Assessment & Plan (04/13/2020 9:47 AM STOCK LIFTER): Cr 1.3 -> 1.22 resolving. Baseline <1. - encourage fluids - avoid nephrotoxic meds Assessment & Plan (04/12/2020 9:04 AM STOCK LIFTER): Cr 1.3 -> 1.22 resolving. Baseline <1. - encourage fluids - avoid nephrotoxic meds Diarrhea 04/10/2020 04/20/2020 Assessment & Plan (05/04/2020 12:55 PM STOCK LIFTER): Patient recently had constipation, was treated with BID miralax and senna- docusate. Was having diarrhea last week so scheduled bowel regimen discontinued. - discontinued daily senna-docusate - miralax PRN Assessment & Plan (05/03/2020 9:56 AM STOCK LIFTER): Patient recently had constipation, was treated with BID miralax and senna- docusate. Was having diarrhea last week so scheduled bowel regimen discontinued. - discontinued daily senna-docusate - miralax PRN Assessment & Plan (05/01/2020 10:59 AM STOCK LIFTER): Patient recently had constipation, was treated with BID miralax and senna- docusate. Was having diarrhea last week so scheduled bowel regimen discontinued. - discontinued daily senna-docusate - miralax PRN Assessment & Plan (04/19/2020 9:47 AM STOCK LIFTER): Patient recently had constipation, was treated with BID miralax and senna- docusate. Was having diarrhea last week so scheduled bowel regimen discontinued. - discontinued daily senna-docusate - miralax PRN Assessment & Plan (04/16/2020 11:52 AM STOCK LIFTER): Patient recently had constipation, was treated with BID miralax and senna- docusate. Was having diarrhea last week so scheduled bowel regimen discontinued. - discontinue daily senna-docusate - miralax PRN Assessment & Plan (04/14/2020 9:57 AM STOCK LIFTER): Patient recently had constipation, was treated with BID miralax and senna- docusate. Endorsing nonbloody diarrhea for last 2 days. - discontinue daily senna-docusate - miralax PRN Assessment & Plan (04/10/2020 10:09 PM STOCK LIFTER): Patient recently had constipation, was treated with BID miralax and senna- docusate. Endorsing nonbloody diarrhea for last 2 days. - discontinue daily senna-docusate - miralax PRN Ventral hernia without obstr uction or gangrene 08/31/2018 04/20/2020 Overview (08/31/2018): Added automatically from request for surgery [id number] Assessment & Plan (09/06/2018 12:51 PM CDT): [...] do you attend [facility] or yazidi services? More than 4 times per year 02/01/2021 Do you belong to any clubs o r organizations such as sikh groups, unions, fraternal or athletic groups, or [...] Date Recorded PHQ-2 Total Score 4 04/03/2020 [facility] - Occupational Stress [...] place to sleep or slept in a [place] health care facility (including now)? No 02/01/2021 Personal Safety Answer Date Recorded Have you ever been in or are you currently in a harmful physical or emotional relationship or is someone making you feel afraid or unsafe? Denies 03/11/2024 Sex and Gender Information Value Date Recorded Sex Assigned at Not on file Legal Sex Male 3:25 AM STOCK LIFTER Gender Identity Male 03/26/2021 11:53 AM STOCK LIFTER Sexual Orientation Choose not to disclose 2021 11:53 AM STOCK LIFTER Occupation Industry Job Start Date Job End Date disabled Not on file Not on file Not on file Last Filed Vital Signs Vital Sign Reading Time Taken Comments Blood Pressure 126/74 04/06/2024 9:02 AM STOCK LIFTER Pulse 68 04/06/2024 9:02 AM STOCK LIFTER Temperature 36.2 C (97.1 F) 04/06/2024 9:02 AM STOCK LIFTER Respiratory Rate 16 03/11/2024 4:45 PM STOCK LIFTER Oxygen Saturation 95% 04/06/2024 9:02 AM STOCK LIFTER Inhaled Oxygen Concentration - - Weight 97.3 kg (214 lb 9.6 oz) 04/06/2024 9:02 A M STOCK LIFTER Height 182.9 cm (6') 04/06/2024 9:02 AM STOCK LIFTER Body Mass Index 29.1 04/06/2024 9:02 AM STOCK LIFTER Plan of Treatment Not on file Medical Devices Implanted Type Area Landman Device Identifier Shelf Expiration Date Model / Serial / Lot [employer]/C R Bard [id number] Ventralight St Sepra 4.5in Uncoated Monofilament Lightweight - [id number] Implanted:Qty: 1 on 09/09/2018 by Xavier Aviles MD at [facility] N/A: Abdomen [employer]/C R Bard 12/19/2019 [id number] / / [id number] [employer] [id number] Mini Ignite Power Mix Injectable Graft 4ml Synthetic Tissue - [id number] - [id number] Implanted:Qty: 1 on 01/29/2021 by Don Kevin MD at [facility] [employer] 07/08/2023 [id number] / [id number] / [employer] [id number] Medline Unite 7mm 6.5mm 80mm 16mm Cannulated Color Coded Headless - [id number] Implanted:Qty: 1 on 01/29/2021 by Don Kevin MD at [facility] Left: Foot [employer] [id number] / / [employer] [id number] Medline Unite 6.5mm 90mm 16mm Cannulated Color Coded Headless - [id number] Implanted:Qty: 1 on 01/29/2021 by Don eKvin MD at [facility] Medicine Left: Foot [employer] [id number] / / Medline [employer] [id number] Screw Bone L50mm Od4.5mm Foot Ankle Cannulated Color Coded Osteotomy - [id number] Implanted:Qty: 1 on 01/29/2021 by Don Kevin MD at [facility] Left: Foot [employer] [id number] / / 20x20 Nitnol Staple Implanted:Qty: 1 on 01/29/2021 by Don Kevin MD at [facility] Left: Foot [employer] Description:[id number] [employer] [id number] 3.3mm Drill Cannulated Ao Quick Connect Color Coded - [id number] Implanted:Qty: 1 on 01/29/2021 by Don Kevin MD at [facility] Left: Foot [employer] [id number] / / Procedures Procedure Name Priority Date/Time [...] last revised 2018. Testing performed by: [facility], [address] [place] [address], [place] [address] Blood specimen (specimen) 12/20/2019 2:31 PM CDT 12/20/2019 6:54 PM CDT us Raoul Best MD LAB BLOOD ORDERABLES Final Re sult YULY HUNTER SAIMA 1 [facility] Department [place] [address] * COLONOSCOPY (11/18/2017 7:41 AM CDT) Anatomical Region Laterality Modality Other Narrative Procedure Note Alexander Pitts MD - 11/18/2017 7:41 AM CDT [facility] Patient Name: Baljeet Herman Procedure Date: 11/18/2017 7:41 AM Date of : 1965 Admit Type: Outpatient Age: 52 Gender: Male Attending MD: Alexander Pitts MD Room: [facility] ENDOSCOPY ROOM 2 Note Status: Finalized Patient [...] passed under direct vision.The Pediatric Colonoscope PCF-H190L [id number] was introduced through the anus and advanced [...] malignant neoplasm of largeintestine CPT copyright 2017 [employer]. All rights reserved. The codes documented in this report are preliminary and upon skoog machine operator reviewmay be revised to meet current compliance requirements. 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
--- OUTSIDE RECORDS SUMMARY | 2024-09-22 09:08 | XMS_ITS | Clinical Summary ---
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/2020 Overview (12/13/2020): Added automatically from request for surgery [id number] Malignant carcinoid tumor of the ileum Stimulant use disorder 05/31/2020 Severe alcohol use disorder 05/31/2020 PTSD (post-traumatic stress disorder) 05/31/2020 Chronic bilateral low back pain without sciatica 04/07/2020 Assessment & Plan (05/04/2020 12:54 PM ORNAMENTAL MACHINE OPERATOR): - flexeril 10mg TID PRN - Reading 10mg q4 PRN - lidocaine patch daily - avoid IV ketorelac and NSAIDs with starting lithium - heating packs Assessment & Plan (05/03/2020 9:56 AM ORNAMENTAL MACHINE OPERATOR): - flexeril 10mg TID PRN - Reading 10mg q4 PRN - lidocaine patch daily - avoid IV ketorelac and NSAIDs with starting lithium - heating packs Assessment & Plan (05/02/2020 11:56 AM ORNAMENTAL MACHINE OPERATOR): - flexeril 10mg TID PRN - Reading 10mg q4 PRN - lidocaine patch daily - avoid IV ketorelac and NSAIDs with starting lithium - heating packs Assessment & Plan (05/01/2020 10:58 AM ORNAMENTAL MACHINE OPERATOR): - flexeril 10mg TID PRN - NORCO 10mg q4 PRN - lidocaine patch daily - avoid IV ketorelac and NSAIDs with starting lithium - heating pads Assessment & Plan (04/30/2020 12:17 PM ORNAMENTAL MACHINE OPERATOR): - flexeril 10mg TID PRN - NORCO 10mg q4 PRN - lidocaine patch daily - avoid IV ketorelac and NSAIDs with starting lithium - heating pads Assessment & Plan (04/28/2020 8:01 AM ORNAMENTAL MACHINE OPERATOR): - flexeril 10mg TID PRN - NORCO 10mg q4 PRN - lidocaine patch daily - avoid IV ketorelac and NSAIDs with starting lithium - heating pads Assessment & Plan (04/27/2020 8:47 AM ORNAMENTAL MACHINE OPERATOR): - flexeril 10mg TID PRN - NORCO 10mg q4 PRN - lidocaine patch daily - avoid IV ketorelac and NSAIDs given ADILENE - heating pads Assessment & Plan (04/26/2020 10:11 AM ORNAMENTAL MACHINE OPERATOR): - flexeril 10mg TID PRN - NORCO 10mg q4 PRN - lidocaine patch daily - avoid IV ketorelac and NSAIDs given ADILENE - heating pads Assessment & Plan (04/25/2020 9:45 AM ORNAMENTAL MACHINE OPERATOR): - flexeril 10mg TID PRN - NORCO 10mg q4 PRN - lidocaine patch daily - avoid IV ketorelac and NSAIDs given ADILENE - heating pads Assessment & Plan (04/24/2020 9:49 AM ORNAMENTAL MACHINE OPERATOR): - flexeril 10mg TID PRN - NORCO 10mg q4 PRN - lidocaine patch daily - avoid IV ketorelac and NSAIDs given ADILENE - heating pads Assessment & Plan (04/23/2020 10:21 AM ORNAMENTAL MACHINE OPERATOR): - flexeril 10mg TID PRN - NORCO 10mg q4 PRN - lidocaine patch daily - avoid IV ketorelac and NSAIDs given ADILENE - heating pads Assessment & Plan (04/21/2020 8:38 AM ORNAMENTAL MACHINE OPERATOR): - flexeril 10mg TID PRN - NORCO 10mg q4 PRN - lidocaine patch daily - avoid IV ketorelac and NSAIDs given DAILENE - heating pads Assessment & Plan (04/20/2020 12:05 PM ORNAMENTAL MACHINE OPERATOR): - flexeril 10mg TID PRN - NORCO 10mg q4 PRN - lidocaine patch daily - avoid IV ketorelac and NSAIDs given ADILENE - heating pads Assessment & Plan (04/19/2020 9:46 AM ORNAMENTAL MACHINE OPERATOR): - flexeril 10mg TID PRN - NORCO 10mg q4 PRN - lidocaine patch daily - avoid IV ketorelac and NSAIDs given ADILENE - heating pads Assessment & Plan (04/18/2020 10:09 AM ORNAMENTAL MACHINE OPERATOR): - flexeril 10mg TID PRN - NORCO 10mg q4 PRN - lidocaine patch daily - avoid IV ketorelac and NSAIDs given ADILENE - heating pads Assessment & Plan (04/17/2020 9:31 AM ORNAMENTAL MACHINE OPERATOR): - flexeril 10mg TID PRN - NORCO 10mg q4 PRN - lidocaine patch daily - avoid IV ketorelac and NSAIDs given ADILENE - heating pads Assessment & Plan (04/16/2020 11:51 AM ORNAMENTAL MACHINE OPERATOR): - flexeril 10mg TID PRN - NORCO 10mg q4 PRN - lidocaine patch daily - avoid IV ketorelac and NSAIDs given ADILENE - heating pads Assessment & Plan (04/14/2020 9:57 AM ORNAMENTAL MACHINE OPERATOR): - flexeril 10mg TID PRN - NORCO 10mg q4 PRN - lidocaine patch daily - avoid IV ketorelac and NSAIDs given ADILENE - heating pads Assessment & Plan (04/10/2020 10:04 PM ORNAMENTAL MACHINE OPERATOR): - flexeril 10mg TID PRN - NORCO 10mg q4 PRN - lidocaine patch daily - avoid IV ketorelac and NSAIDs given ADILENE - heating pads Assessment & Plan (04/08/2020 3:23 PM ORNAMENTAL MACHINE OPERATOR): Patient endorsing exacerbation of chronic back [...] -PT Assessment & Plan (04/07/2020 6:23 AM ORNAMENTAL MACHINE OPERATOR): Patient endorsing exacerbation of chronic back pain and left ankle pain (had previous traumatic injury, required surgery). No other red flag symptoms/signs. Reports he has received injections in the past -Continue PRN norco, flexeril -Lidocaine patch to back -PT Depressive disorder 04/03/2020 Assessment & Plan (05/04/2020 12:54 PM ORNAMENTAL MACHINE OPERATOR): 54yo M with reported history of [...] more bright. Plan to discharge patient 05/04. Jennings augmentation started with moderate improvements seen in depressive symptoms with ECT, titrated to 300 mg BID with level 0.6. - Continue OLANZapine, 20 mg, oral, Nightly, for depression - Continue Venlafaxine XR 150 mg PO daily, for depression - Continue lithium to 300 mg BID - Jennings level 0.6 on 05/03 - This is [...] 05/04 Assessment & Plan (05/03/2020 9:56 AM ORNAMENTAL MACHINE OPERATOR): 54yo M with reported history of [...] more bright. Plan to discharge patient 05/04. Jennings augmentation started with moderate improvements seen in depressive symptoms with ECT, titrated to 300 mg BID with level 0.6. - Continue OLANZapine, 20 mg, oral, Nightly, for depression - Continue Venlafaxine XR 150 mg PO daily, for depression - Continue lithium to 300 mg BID - Jennings level 0.6 on 05/03 - This is [...] permission) Assessment & Plan (05/02/2020 11:56 AM ORNAMENTAL MACHINE OPERATOR): 54yo M with reported history of [...] permission) Assessment & Plan (05/01/2020 10:58 AM ORNAMENTAL MACHINE OPERATOR): 54yo M with reported history of [...] family Assessment & Plan (04/30/2020 12:17 PM ORNAMENTAL MACHINE OPERATOR): 54yo M with reported history of [...] family Assessment & Plan (04/28/2020 8:02 AM ORNAMENTAL MACHINE OPERATOR): 54yo M with reported history of [...] depression Assessment & Plan (04/27/2020 8:47 AM ORNAMENTAL MACHINE OPERATOR): 54yo M with reported history of [...] depression Assessment & Plan (04/26/2020 10:11 AM ORNAMENTAL MACHINE OPERATOR): 54yo M with reported history of [...] depression Assessment & Plan (04/25/2020 9:47 AM ORNAMENTAL MACHINE OPERATOR): 54yo M with reported history of [...] depression Assessment & Plan (04/24/2020 9:48 AM ORNAMENTAL MACHINE OPERATOR): 54yo M with reported history of [...] depression Assessment & Plan (04/23/2020 10:21 AM ORNAMENTAL MACHINE OPERATOR): 54yo M with reported history of [...] depression Assessment & Plan (04/21/2020 8:36 AM ORNAMENTAL MACHINE OPERATOR): 54yo M with reported history of [...] depression Assessment & Plan (04/20/2020 12:05 PM ORNAMENTAL MACHINE OPERATOR): 54yo M with reported history of [...] depression Assessment & Plan (04/19/2020 9:48 AM ORNAMENTAL MACHINE OPERATOR): 54yo M with reported history of [...] depression Assessment & Plan (04/18/2020 10:08 AM ORNAMENTAL MACHINE OPERATOR): 54yo M with reported history of [...] depression Assessment & Plan (04/17/2020 9:32 AM ORNAMENTAL MACHINE OPERATOR): 54yo M with reported history of [...] depression Assessment & Plan (04/16/2020 11:49 AM ORNAMENTAL MACHINE OPERATOR): 54yo M with reported history of [...] depression Assessment & Plan (04/14/2020 9:56 AM ORNAMENTAL MACHINE OPERATOR): 54yo M with reported history of [...] depression Assessment & Plan (04/13/2020 9:46 AM ORNAMENTAL MACHINE OPERATOR): 54yo M with reported history of [...] procedure Assessment & Plan (04/10/2020 3:25 PM ORNAMENTAL MACHINE OPERATOR): Presented to ED 04/02 with suicidal ideation, depression. Initially admitted to psychiatry for medication adjustment, received ECT x1 04/06 -Continue current meds: lexapro 5, effexor 112.5, olanzapine 20mg QHS - If COVID test is negative, transfer to Psychiatry floor. Assessment & Plan (04/08/2020 3:24 PM ORNAMENTAL MACHINE OPERATOR): Presented to ED 04/02 with suicidal ideation, depression. Initially admitted to psychiatry for medication adjustment, received ECT x1 04/06 -Psych consulted upon transfer to medicine but are following only peripherally over the weekend -Continue current meds: lexapro 5, effexor 112.5, olanzapine 20mg QHS -Psychiatry recommending discontinuing suicide precautions with 1:1 sitter Assessment & Plan (04/07/2020 6:14 AM ORNAMENTAL MACHINE OPERATOR): Presented to ED 04/02 with suicidal ideation, depression. Initially admitted to psychiatry for medication adjustment, received ECT x1 04/06 -Psych c/s upon transfer -Continue current meds: lexapro 5, effexor 112.5, olanzapine 20mg QHS -Suicide precautions, 1:1 sitter Assessment & Plan (04/12/2020 9:11 AM ORNAMENTAL MACHINE OPERATOR): 54yo M with reported history of [...] midnight Assessment & Plan (04/03/2020 2:04 PM ORNAMENTAL MACHINE OPERATOR): 54yo M with reported history of [...] interested in ECT, will facilitate transfer to [facility] to facilitate ECT consult Uptitrate SSRI and otherwise continue home depakote and zyprexa (pt reports taking these medications daily for past several yrs) PRNs agitation and comfort Milieu, supportive, and group therapy Apprec intervention Obtain collateral Full code Dispo: home with GERD (gastroesophageal reflux disease) Assessment & Plan (05/04/2020 12:54 PM ORNAMENTAL MACHINE OPERATOR): Patient has a long history of GERD. - Protonix 40 mg daily Assessment & Plan (05/03/2020 9:56 AM ORNAMENTAL MACHINE OPERATOR): Patient has a long history of GERD. - Protonix 40 mg daily Assessment & Plan (05/02/2020 11:57 AM ORNAMENTAL MACHINE OPERATOR): Patient has a long history of GERD. - Protonix 40 mg daily Assessment & Plan (05/01/2020 10:58 AM ORNAMENTAL MACHINE OPERATOR): Patient has a long history of GERD. - Protonix 40 mg daily Assessment & Plan (04/30/2020 12:17 PM ORNAMENTAL MACHINE OPERATOR): Patient has a long history of GERD. - Protonix 40 mg daily Assessment & Plan (04/28/2020 8:00 AM ORNAMENTAL MACHINE OPERATOR): Patient has a long history of GERD. -Protonix 40 mg daily Assessment & Plan (04/27/2020 8:47 AM ORNAMENTAL MACHINE OPERATOR): Patient has a long history of GERD. -Protonix 40 mg daily Assessment & Plan (04/26/2020 10:11 AM ORNAMENTAL MACHINE OPERATOR): Patient has a long history of GERD. -Protonix 40 mg daily Assessment & Plan (04/25/2020 9:45 AM ORNAMENTAL MACHINE OPERATOR): Patient has a long history of GERD. -Protonix 40 mg daily Assessment & Plan (04/24/2020 9:48 AM ORNAMENTAL MACHINE OPERATOR): Patient has a long history of GERD. -Protonix 40 mg daily Assessment & Plan (04/23/2020 10:21 AM ORNAMENTAL MACHINE OPERATOR): Patient has a long history of GERD. -Protonix 40 mg daily Assessment & Plan (04/21/2020 8:37 AM ORNAMENTAL MACHINE OPERATOR): Patient has a long history of GERD. -Protonix 40 mg daily Assessment & Plan (04/20/2020 12:05 PM ORNAMENTAL MACHINE OPERATOR): Patient has a long history of GERD. -Protonix 40 mg daily Assessment & Plan (04/19/2020 9:46 AM ORNAMENTAL MACHINE OPERATOR): Patient has a long history of GERD. -Protonix 40 mg daily Assessment & Plan (04/18/2020 10:09 AM ORNAMENTAL MACHINE OPERATOR): Patient has a long history of GERD. -Protonix 40 mg daily Assessment & Plan (04/17/2020 9:31 AM ORNAMENTAL MACHINE OPERATOR): Patient has a long history of GERD. -Protonix 40 mg daily Assessment & Plan (04/16/2020 11:51 AM ORNAMENTAL MACHINE OPERATOR): Patient has a long history of GERD. -Protonix 40 mg daily Assessment & Plan (04/14/2020 9:56 AM ORNAMENTAL MACHINE OPERATOR): Patient has a long history of GERD. -Protonix 40 mg daily Assessment & Plan (04/10/2020 3:25 PM ORNAMENTAL MACHINE OPERATOR): Continue pantoprazole Assessment & Plan (04/08/2020 3:17 PM ORNAMENTAL MACHINE OPERATOR): Continue pantoprazole Assessment & Plan (04/07/2020 6:15 AM ORNAMENTAL MACHINE OPERATOR): Continue pantoprazole Assessment & Plan (04/03/2020 5:54 PM ORNAMENTAL MACHINE OPERATOR): Patient has a long history of GERD. -Protonix 40 mg daily Hypothyroidism 04/03/2020 Assessment & Plan (05/04/2020 12:54 PM ORNAMENTAL MACHINE OPERATOR): Patient carries a diagnosis of hypothyroidism for several years. He is currently treated on levothyroxine 75 mcg daily. - Repeat TFT tests in 6 weeks - continue levothyroxine 75 mcg daily Assessment & Plan (05/03/2020 9:56 AM ORNAMENTAL MACHINE OPERATOR): Patient carries a diagnosis of hypothyroidism for several years. He is currently treated on levothyroxine 75 mcg daily. - Repeat TFT tests in 6 weeks - continue levothyroxine 75 mcg daily Assessment & Plan (05/02/2020 11:57 AM ORNAMENTAL MACHINE OPERATOR): Patient carries a diagnosis of hyperthyroidism for several years. He is currently treated on levothyroxine 75 mcg daily. - Repeat TFT tests in 6 weeks - continue levothyroxine 75 mcg daily Assessment & Plan (05/01/2020 10:58 AM ORNAMENTAL MACHINE OPERATOR): Patient carries a diagnosis of hyperthyroidism for several years. He is currently treated on levothyroxine 75 mcg daily. - Repeat TFT tests in 6 weeks - continue levothyroxine 75 mcg daily Assessment & Plan (04/30/2020 12:17 PM ORNAMENTAL MACHINE OPERATOR): Patient carries a diagnosis of hyperthyroidism for several years. He is currently treated on levothyroxine 75 mcg daily. - Repeat TFT tests in 6 weeks - continue levothyroxine 75 mcg daily Assessment & Plan (04/28/2020 8:00 AM ORNAMENTAL MACHINE OPERATOR): Patient carries a diagnosis of hyperthyroidism for several years. He is currently treated on levothyroxine 75 mcg daily. - Repeat TFT tests in 6 weeks - continue levothyroxine 75 mcg daily Assessment & Plan (04/27/2020 8:47 AM ORNAMENTAL MACHINE OPERATOR): Patient carries a diagnosis of hyperthyroidism for several years. He is currently treated on levothyroxine 75 mcg daily. - Repeat TFT tests in 6 weeks - continue levothyroxine 75 mcg daily Assessment & Plan (04/26/2020 10:11 AM ORNAMENTAL MACHINE OPERATOR): Patient carries a diagnosis of hyperthyroidism for several years. He is currently treated on levothyroxine 75 mcg daily. - Repeat TFT tests in 6 weeks - continue levothyroxine 75 mcg daily Assessment & Plan (04/25/2020 9:45 AM ORNAMENTAL MACHINE OPERATOR): Patient carries a diagnosis of hyperthyroidism for several years. He is currently treated on levothyroxine 75 mcg daily. - Repeat TFT tests in 6 weeks - continue levothyroxine 75 mcg daily Assessment & Plan (04/24/2020 9:48 AM ORNAMENTAL MACHINE OPERATOR): Patient carries a diagnosis of hyperthyroidism for several years. He is currently treated on levothyroxine 75 mcg daily. - Repeat TFT tests in 6 weeks - continue levothyroxine 75 mcg daily Assessment & Plan (04/23/2020 10:21 AM ORNAMENTAL MACHINE OPERATOR): Patient carries a diagnosis of hyperthyroidism for several years. He is currently treated on levothyroxine 75 mcg daily. - Repeat TFT tests in 6 weeks - continue levothyroxine 75 mcg daily Assessment & Plan (04/21/2020 8:37 AM ORNAMENTAL MACHINE OPERATOR): Patient carries a diagnosis of hyperthyroidism for several years. He is currently treated on levothyroxine 75 mcg daily. - Repeat TFT tests in 6 weeks - continue levothyroxine 75 mcg daily Assessment & Plan (04/20/2020 12:05 PM ORNAMENTAL MACHINE OPERATOR): Patient carries a diagnosis of hyperthyroidism for several years. He is currently treated on levothyroxine 75 mcg daily. - Repeat TFT tests in 6 weeks - continue levothyroxine 75 mcg daily Assessment & Plan (04/19/2020 9:46 AM ORNAMENTAL MACHINE OPERATOR): Patient carries a diagnosis of hyperthyroidism for several years. He is currently treated on levothyroxine 75 mcg daily. - Repeat TFT tests in 6 weeks - continue levothyroxine 75 mcg daily Assessment & Plan (04/18/2020 10:09 AM ORNAMENTAL MACHINE OPERATOR): Patient carries a diagnosis of hyperthyroidism for several years. He is currently treated on levothyroxine 75 mcg daily. - Repeat TFT tests in 6 weeks - continue levothyroxine 75 mcg daily Assessment & Plan (04/17/2020 9:31 AM ORNAMENTAL MACHINE OPERATOR): Patient carries a diagnosis of hyperthyroidism for several years. He is currently treated on levothyroxine 75 mcg daily. - Repeat TFT tests in 6 weeks - continue levothyroxine 75 mcg daily Assessment & Plan (04/16/2020 11:51 AM ORNAMENTAL MACHINE OPERATOR): Patient carries a diagnosis of hyperthyroidism for several years. He is currently treated on levothyroxine 75 mcg daily. - Repeat TFT tests in 6 weeks - continue levothyroxine 75 mcg daily Assessment & Plan (04/14/2020 9:57 AM ORNAMENTAL MACHINE OPERATOR): Patient carries a diagnosis of hyperthyroidism for several years. He is currently treated on levothyroxine 75 mcg daily. - Repeat TFT tests in 6 weeks - continue levothyroxine 75 mcg daily Assessment & Plan (04/10/2020 3:25 PM ORNAMENTAL MACHINE OPERATOR): 04/02: TSH 6.49, T4 WNL at 1.38 Continue synthroid 75mcg; repeat TFTs 6-8 weeks Assessment & Plan (04/08/2020 3:17 PM ORNAMENTAL MACHINE OPERATOR): 04/02: TSH 6.49, T4 WNL at 1.38 Continue synthroid 75mcg; repeat TFTs 6-8 weeks Assessment & Plan (04/07/2020 6:16 AM ORNAMENTAL MACHINE OPERATOR): 04/02: TSH 6.49, T4 WNL at 1.38 Continue synthroid 75mcg; repeat TFTs 6-8 weeks Assessment & Plan (04/10/2020 9:35 PM ORNAMENTAL MACHINE OPERATOR): Patient carries a diagnosis of hyperthyroidism for several years. He is currently treated on levothyroxine 75 mcg daily. - Repeat TFT tests in 6 weeks - continue levothyroxine 75 mcg daily Hyperlipemia 04/03/2020 Assessment & Plan (05/04/2020 12:55 PM ORNAMENTAL MACHINE OPERATOR): Has a stated history of hyperlipidemia has been stably treated with atorvastatin 40 mg daily for many years. Patient's LDL low on lipid panel. Notable elevated triglycerides but not fasting sample. - atorvastatin 40 mg daily - fenofibrate 145mg daily Assessment & Plan (05/03/2020 9:56 AM ORNAMENTAL MACHINE OPERATOR): Has a stated history of hyperlipidemia has been stably treated with atorvastatin 40 mg daily for many years. Patient's LDL low on lipid panel. Notable elevated triglycerides but not fasting sample. - atorvastatin 40 mg daily - fenofibrate 145mg daily Assessment & Plan (05/02/2020 11:57 AM ORNAMENTAL MACHINE OPERATOR): Has a stated history of hyperlipidemia has been stably treated with atorvastatin 40 mg daily for many years. Patient's LDL low on lipid panel. Notable elevated triglycerides but not fasting sample. - atorvastatin 40 mg daily - fenofibrate 145mg daily Assessment & Plan (05/01/2020 10:58 AM ORNAMENTAL MACHINE OPERATOR): Has a stated history of hyperlipidemia has been stably treated with atorvastatin 40 mg daily for many years. Patient's LDL low on lipid panel. Notable elevated triglycerides but not fasting sample. - atorvastatin 40 mg daily - tricor 145mg daily Assessment & Plan (04/30/2020 12:17 PM ORNAMENTAL MACHINE OPERATOR): Has a stated history of hyperlipidemia has been stably treated with atorvastatin 40 mg daily for many years. Patient's LDL low on lipid panel. Notable elevated triglycerides but not fasting sample. - atorvastatin 40 mg daily - tricor 145mg daily Assessment & Plan (04/28/2020 8:01 AM ORNAMENTAL MACHINE OPERATOR): Has a stated history of hyperlipidemia has been stably treated with atorvastatin 40 mg daily for many years. Patient's LDL low on lipid panel. Notable elevated triglycerides but not fasting sample. - atorvastatin 40 mg daily - tricor 145mg daily Assessment & Plan (04/27/2020 8:47 AM ORNAMENTAL MACHINE OPERATOR): Has a stated history of hyperlipidemia has been stably treated with atorvastatin 40 mg daily for many years. Patient's LDL low on lipid panel. Notable elevated triglycerides but not fasting sample. - atorvastatin 40 mg daily - tricor 145mg daily Assessment & Plan (04/26/2020 10:11 AM ORNAMENTAL MACHINE OPERATOR): Has a stated history of hyperlipidemia has been stably treated with atorvastatin 40 mg daily for many years. Patient's LDL low on lipid panel. Notable elevated triglycerides but not fasting sample. - atorvastatin 40 mg daily - tricor 145mg daily Assessment & Plan (04/25/2020 9:45 AM ORNAMENTAL MACHINE OPERATOR): Has a stated history of hyperlipidemia [...] daily Assessment & Plan (04/24/2020 9:48 AM ORNAMENTAL MACHINE OPERATOR): Has a stated history of hyperlipidemia [...] daily Assessment & Plan (04/23/2020 10:21 AM ORNAMENTAL MACHINE OPERATOR): Has a stated history of hyperlipidemia [...] daily Assessment & Plan (04/21/2020 8:38 AM ORNAMENTAL MACHINE OPERATOR): Has a stated history of hyperlipidemia [...] daily Assessment & Plan (04/20/2020 12:05 PM ORNAMENTAL MACHINE OPERATOR): Has a stated history of hyperlipidemia [...] daily Assessment & Plan (04/19/2020 9:46 AM ORNAMENTAL MACHINE OPERATOR): Has a stated history of hyperlipidemia [...] daily Assessment & Plan (04/18/2020 10:09 AM ORNAMENTAL MACHINE OPERATOR): Has a stated history of hyperlipidemia [...] daily Assessment & Plan (04/17/2020 9:31 AM ORNAMENTAL MACHINE OPERATOR): Has a stated history of hyperlipidemia [...] daily Assessment & Plan (04/16/2020 11:51 AM ORNAMENTAL MACHINE OPERATOR): Has a stated history of hyperlipidemia [...] daily Assessment & Plan (04/14/2020 9:56 AM ORNAMENTAL MACHINE OPERATOR): Has a stated history of hyperlipidemia [...] daily Assessment & Plan (04/13/2020 9:46 AM ORNAMENTAL MACHINE OPERATOR): Has a stated history of hyperlipidemia [...] daily Assessment & Plan (04/10/2020 3:25 PM ORNAMENTAL MACHINE OPERATOR): Continue atorvastatin 40 Assessment & Plan (04/08/2020 3:17 PM ORNAMENTAL MACHINE OPERATOR): Continue atorvastatin 40 Assessment & Plan (04/07/2020 6:15 AM ORNAMENTAL MACHINE OPERATOR): Continue atorvastatin 40 Assessment & Plan (04/12/2020 9:03 AM ORNAMENTAL MACHINE OPERATOR): Has a stated history of hyperlipidemia [...] (08/31/2018): Added automatically from request for surgery [id number] Assessment & Plan (09/06/2018 12:49 PM CDT): [...] 04/10/2020 Assessment & Plan (05/04/2020 12:55 PM ORNAMENTAL MACHINE OPERATOR): Cr 1.3 -> 1.22 resolving. Baseline <1. - encourage fluids - avoid nephrotoxic meds Assessment & Plan (05/03/2020 9:56 AM ORNAMENTAL MACHINE OPERATOR): Cr 1.3 -> 1.22 resolving. Baseline <1. - encourage fluids - avoid nephrotoxic meds Assessment & Plan (05/02/2020 11:57 AM ORNAMENTAL MACHINE OPERATOR): Cr 1.3 -> 1.22 resolving. Baseline <1. - encourage fluids - avoid nephrotoxic meds Assessment & Plan (05/01/2020 10:58 AM ORNAMENTAL MACHINE OPERATOR): Cr 1.3 -> 1.22 resolving. Baseline <1. - encourage fluids - avoid nephrotoxic meds Assessment & Plan (04/19/2020 9:46 AM ORNAMENTAL MACHINE OPERATOR): Cr 1.3 -> 1.22 resolving. Baseline <1. - encourage fluids - avoid nephrotoxic meds Assessment & Plan (04/18/2020 10:09 AM ORNAMENTAL MACHINE OPERATOR): Cr 1.3 -> 1.22 resolving. Baseline <1. - encourage fluids - avoid nephrotoxic meds Assessment & Plan (04/16/2020 11:51 AM ORNAMENTAL MACHINE OPERATOR): Cr 1.3 -> 1.22 resolving. Baseline <1. - encourage fluids - avoid nephrotoxic meds Assessment & Plan (04/14/2020 9:57 AM ORNAMENTAL MACHINE OPERATOR): Cr 1.3 -> 1.22 resolving. Baseline <1. - encourage fluids - avoid nephrotoxic meds Assessment & Plan (04/13/2020 9:47 AM ORNAMENTAL MACHINE OPERATOR): Cr 1.3 -> 1.22 resolving. Baseline <1. - encourage fluids - avoid nephrotoxic meds Assessment & Plan (04/12/2020 9:04 AM ORNAMENTAL MACHINE OPERATOR): Cr 1.3 -> 1.22 resolving. Baseline <1. - encourage fluids - avoid nephrotoxic meds Diarrhea 04/10/2020 04/20/2020 Assessment & Plan (05/04/2020 12:55 PM ORNAMENTAL MACHINE OPERATOR): Patient recently had constipation, was treated with BID miralax and senna- docusate. Was having diarrhea last week so scheduled bowel regimen discontinued. - discontinued daily senna-docusate - miralax PRN Assessment & Plan (05/03/2020 9:56 AM ORNAMENTAL MACHINE OPERATOR): Patient recently had constipation, was treated with BID miralax and senna- docusate. Was having diarrhea last week so scheduled bowel regimen discontinued. - discontinued daily senna-docusate - miralax PRN Assessment & Plan (05/01/2020 10:59 AM ORNAMENTAL MACHINE OPERATOR): Patient recently had constipation, was treated with BID miralax and senna- docusate. Was having diarrhea last week so scheduled bowel regimen discontinued. - discontinued daily senna-docusate - miralax PRN Assessment & Plan (04/19/2020 9:47 AM ORNAMENTAL MACHINE OPERATOR): Patient recently had constipation, was treated with BID miralax and senna- docusate. Was having diarrhea last week so scheduled bowel regimen discontinued. - discontinued daily senna-docusate - miralax PRN Assessment & Plan (04/16/2020 11:52 AM ORNAMENTAL MACHINE OPERATOR): Patient recently had constipation, was treated with BID miralax and senna- docusate. Was having diarrhea last week so scheduled bowel regimen discontinued. - discontinue daily senna-docusate - miralax PRN Assessment & Plan (04/14/2020 9:57 AM ORNAMENTAL MACHINE OPERATOR): Patient recently had constipation, was treated with BID miralax and senna- docusate. Endorsing nonbloody diarrhea for last 2 days. - discontinue daily senna-docusate - miralax PRN Assessment & Plan (04/10/2020 10:09 PM ORNAMENTAL MACHINE OPERATOR): Patient recently had constipation, was treated with BID miralax and senna- docusate. Endorsing nonbloody diarrhea for last 2 days. - discontinue daily senna-docusate - miralax PRN Ventral hernia without obstr uction or gangrene 08/31/2018 04/20/2020 Overview (08/31/2018): Added automatically from request for surgery [id number] Assessment & Plan (09/06/2018 12:51 PM CDT): [...] week 02/01/2021 How often do you attend [facility] or jain services? More than 4 times per year 02/01/2021 Do you belong to any clubs o r organizations such as muslim groups, unions, fraternal or athletic groups, or [...] Date Recorded PHQ-2 Total Score 4 04/03/2020 [facility] - Occupational [...] place to sleep or slept in a usp (including now)? No 02/01/2021 Personal Safety Answer Date Recorded Have you ever been in or are you currently in a harmful physical or emotional relationship or is someone making you feel afraid or unsafe? Denies 03/11/2024 Sex and Gender Information Value Date Recorded Sex Assigned at Not on file Legal Sex Male 3:25 AM ORNAMENTAL MACHINE OPERATOR Gender Identity Male 03/26/2021 11:53 AM ORNAMENTAL MACHINE OPERATOR Sexual Orientation Choose not to disclose 2021 11:53 AM ORNAMENTAL MACHINE OPERATOR Occupation Industry Job Start Date Job End Date disabled Not on file Not on file Not on file Obstetrics History Last Filed Vital Signs Vital Sign Reading Time Taken Comments Blood Pressure 126/74 04/06/2024 9:02 AM ORNAMENTAL MACHINE OPERATOR Pulse 68 04/06/2024 9:02 AM ORNAMENTAL MACHINE OPERATOR Temperature 36.2 C (97.1 F) 04/06/2024 9:02 AM ORNAMENTAL MACHINE OPERATOR Respiratory Rate 16 03/11/2024 4:45 PM ORNAMENTAL MACHINE OPERATOR Oxygen Saturation 95% 04/06/2024 9:02 AM ORNAMENTAL MACHINE OPERATOR Inhaled Oxygen Concentration - - Weight 97.3 kg (214 lb 9.6 oz) 04/06/2024 9:02 A M ORNAMENTAL MACHINE OPERATOR Height 182.9 cm (6') 04/06/2024 9:02 AM ORNAMENTAL MACHINE OPERATOR Body Mass Index 29.1 04/06/2024 9:02 AM ORNAMENTAL MACHINE OPERATOR Plan of Treatment Health Maintenance Due Date Last Done Comments Hepatitis C Screening 1966 Hepatitis B Screening 1984 Regular Well Visit/Exam 18-64 1984 Pneumococcal vaccine <65 (3 of 3 - PCV) 03/08/2016 03/08/2015, 03/08/2015, 03/08/2015 Depression Screening 04/03/2021 04/03/2020, 04/03/19 21 Prostate Cancer Screening-PSA 12/19/2021 12/20/2019, 12/29/2018 Influenza Vaccine (Season Ended) 2024 01/09/2022, 05/28/2021, 01/09/2020, Additional history exists Colon Cancer [...] 10/2020, 08/28/2020 Medical Devices Implanted Type Area Stakes Player Device Identifier Shelf Expiration Date Model / Serial / Lot Davol Inc/C R [id number] Ventralight St Sepra 4.5in Uncoated Monofilament Lightweight - [id number] Implanted:Qty: 1 on 09/09/2018 by Xavier Aviles MD at [facility] N/A: Abdomen [employer]ol Inc/C R 12/19/2019 [id number] / / [id number] [employer] Inc [id number] Mini Ignite Power Mix Injectable Graft 4ml Synthetic Tissue - [id number] - [id number] Implanted:Qty: 1 on 01/29/2021 by Don Kevin MD at [facility] [employer] Inc 07/08/2023 [id number] / [id number] / [employer] [id number] Medline Unite 7mm 6.5mm 80mm 16mm Cannulated Color Coded Headless - [id number] Implanted:Qty: 1 on 01/29/2021 by Don Kevin MD at [facility] Left: Foot [employer] [id number] / / Medline Film Fresh Inc [id number] Medline Unite 6.5mm 90mm 16mm Cannulated Color Coded Headless - [id number] Implanted:Qty: 1 on 01/29/2021 by Don Kevin MD at [facility] Left: Foot [employer] [id number] / / Medline [employer] Inc [id number] Screw Bone L50mm Od4.5mm Foot Ankle Cannulated Color Coded Osteotomy - [id number] Implanted:Qty: 1 on 01/29/2021 by Don Kevin MD at [facility] Left: Foot [employer] [id number] / / 20x20 Nitnol Staple Implanted:Qty: 1 on 01/29/2021 by Don Kevin MD at [facility] Left: Foot [employer] Description:[id number] [employer] [id number] Bit 3.3mm Drill Cannulated Ao Quick Connect Color Coded - [id number] Implanted:Qty: 1 on 01/29/2021 by Don Kevin MD at [facility] Left: Foot [employer] [id number] / / Procedures Procedure Name Priority Date/Time Associated Diagnosis Comments PSA SCREEN Routine 12/20/2019 2:31 PM CDT COLONOSCOPY 11/18/2017 7:41 AM CDT from Last 3 Months or Most Recently Relevant to Health Maintenance Results * PSA screen (12/20/2019 2:31 PM CDT) PSA-Total 0.53 <=3.90 ng/mL YULY ELSA (SHELBY) Comment: Interpretive Data AGE SEX REFERENCE INTERVAL 0 minutes-150 years Female None 0 minutes-49 years Male None 50-59 years Male 0-3.90 60-69 years Male 0-5.40 70-79 years Male 0-6.20 80-150 years Male 0-6.20 Current interpretive data last revised 2018. Testing performed by: [facility], [address] [place] [address], [place]., [address] Blood specimen (specimen) 12/20/2019 2:31 PM CDT 12/20/2019 6:54 PM CDT Raoul Best MD LAB BLOOD ORDERABLES Final Re sult YULY ELSA (SHELBY) 1 [facility] Department [place] [address] * COLONOSCOPY (11/18/2017 7:41 AM CDT) Anatomical Region Laterality Modality Other Narrative Procedure Note Alexander Pitts MD - 11/18/2017 7:41 AM CDT [facility] Patient Name: Baljeet Herman Procedure Date: 11/18/2017 7:41 AM Date of : 1965 Admit Type: Outpatient Age: 52 Gender: Male Attending MD: Alexander Pitts MD Room: [facility] ENDOSCOPY ROOM 2 Note Status: Finalized Patient [...] passed under direct vision.The Pediatric Colonoscope [id number]-[id number] was introduced through the anus and advanced [...] malignant neoplasm of largeintestine CPT copyright 2017 [employer]. All rights reserved. The codes documented in this report are preliminary and upon color control operator reviewmay be revised to meet current compliance requirements. Recognized by the [employer] for promoting quality in endoscopy Alexander Pitts MD ENDOSCOPY PROCEDURES Final Result from Last 3 Months or Most Recently Relevant to Health Maintenance Insurance MEDICARE IDPA IDPA [facility] MEDICARE ADVANTAGE [facility] MEDICARE ADVANTAGE IDPA Advance Directives For more information, please contact: [phone] Documents on File Type Date Recorded Patient Grassroots Organizer Expl anation ADVANCE DIRECTIVE 03/10/2019 8:47 AM [employer]-Medical * Full Code (Latest Code Status on [...] 9:14 AM 05/11/2020 5:01 AM Care Teams Corrugator Helper Relationship Specialty Start Date End Date Kevin Meyer [place] [address] [place] [address] PCP - General 03/23/19 Kevin Meyer [place] [address] [place] [address] 03/23/19 Benja Esteban MD [address] [place] [address] Medical Oncologist/Carbon Paper Coating Supervisor Hematology and Oncology 02/28/20
--- OUTSIDE RECORDS SUMMARY | 2024-09-22 09:08 | XMS_ITS | Clinical Summary ---
Author Organization [facility] Address [facility] [place] [address] Care Team Providers Care Electronic Publisher Name Role Phone Kevin Meyer Primary Care Provider [phone] Allergies Active Allergy Reactions Criticality Noted Date [...] mg total) by mouth. Indications: nausea 09/02/19 Active octreotide (SANDOSTATIN) 100 MCG/ML SolutionIndication s:antidiarrheal Inject 1 mL (100 mcg total) into the vein every 30 (thirty) days. Indications: antidiarrheal Active DIAZEPAM ORIndications:anxi ety Take 1 mg by mouth nightly as needed. Indications: anxiety 11/04/19 Active amLODIPine (NORVASC) 10 MG tabletIndications: hypertension Take 1 tablet (10 mg total) by mouth daily. Indications: hypertension 02/19/20 Active pregabalin (LYRICA) 75 MG capsuleIndications :nerve pain Take 1 capsule (75 mg total) by mouth 2 (two) times daily. Indications: nerve pain 03/03/20 Active prazosin (MINIPRESS) 2 MG capsule Take [...] total) by mouth daily. 12/28/19 24 Active albuterol sulfate HFA 108 (90 Base) MCG/ACT inhaler 2 puffs by Other route. 07/05/19 25 Active Active Problems Problem Noted Date Diagnosed Date 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 Lumbar spine instability 08/10/2023 Degenerative disc disease, lumbar 08/10/2023 Spondylolisthesis of lumbar region 08/10/2023 S/P lumbar fusion 08/10/2023 Other osteomyelitis of left ulna (CMS/[facility] HHS/HC C) 03/13/2023 Complex tear of medial menis cus of right knee as current injury, subsequent encounter 10/08/2022 Unspecified open wound of left elbow, subsequent encounter 08/11/2022 Septic olecranon bursitis of left elbow 06/24/19 23 Syncope 05/25/2021 Encounters Date Type Department Care Team Description 09/22/[address], [address] [place] [address] Mando Rojas MD Prior Authorization 09/21/[address], [address] [place] [address] Mando Rojas MD Pre-op Surgery/Cosmetic (Pre-Op Instructions/Educati on) 09/21/2024 Creditable Message Enc [address], [address] [place] [address] [facility] Provider Pre-Op Instructions/Educati on 09/20/[address], [address] [place] [address] Mando Rojas MD Schedule Surgery 09/07/2024 Telephone [facility] [address], [address] [place] [address] Mando Rojas MD Schedule Surgery 09/01/2024 2:20 PM CDT [facility] Emergency Department - [address], [address] [place] [address] Mando Rojas MD Follow Up 09/01/2024 12:37 PM CDT - 09/01/2024 11:59 PM CDT Hospital Encounter [facility] [address] [place] [address] Mando Rojas MD Discharge Disposition: Home or Self Care (Routine Discharge) 09/01/2024 Travel 08/09/2024 Telephone [facility] Emergency Department - [address], [address] [place] [address] Mando Rojas MD Concerns 07/28/2024 2:40 PM CDT - 07/28/2024 3:00 PM CDT Surgery [facility] [place] [address] [phone] Daniela Henderson MD INJECTION TRIGGER POINT - LEFT HARDWARE BLOCKS L5-S1 07/28/2024 1:56 PM CDT - 07/28/2024 3:13 PM CDT Hospital Encounter [facility] [place] [address] [phone] Daniela Henderson MD Discharge Disposition: Home or Self Care (Routine Discharge) 07/28/2024 Travel 07/26/2024 Telephone [facility] [place] [address] [phone] Elizabeth Bonilla, RN Follow Up Call 07/26/2024 Telephone [facility] [place] [address] [phone] Elizabeth Bonilla RN Question 07/18/2024 Telephone [facility] [place] [address] [phone] Buffy Argueta RN Follow Up (/) 06/30/2024 1:40 PM CDT Office Visit [facility] Multispecialty Care - [facility] [address] [facility] [facility], [address] [place] [address] Mando Rojas MD Follow Up 06/30/2024 12:58 PM CDT - 06/30/2024 11:59 PM CDT Hospital Encounter [facility] Diagnostic [place] [address] Mando Rojas MD Discharge Disposition: Home or Self Care (Routine Discharge) 06/30/2024 Travel from Last 3 Months Immunizations Immunization Administration [...] 04/24/2007 Smokeless Tobacco: Former Tobacco Cessation:Counseling Given: No Comments:No tabbacco use since 2007 Alcohol Use [...] from your doctor or pharmacy? Never 08/10/2023 [facility] Utilities Answer Date Recorded In the past 12 months has [facility] [employer], gas, oil, or water [employer] threatened to shut off services in your [...] and heating? Not hard at all 08/10/2023 [facility] [place] [facility] Occupat ional Health - Occupational Stress [...] any time in the past 12 m [facility], were you homeless or living in a custodial (including now)? No 08/10/2023 Sex and Gender Information Value Date Recorded Sex Assigned at Male 06/30/2024 12:49 PM CDT Legal Sex Male 7:14 PM CDT Gender Identity Not on file Sexual Orientation Not on file Last Filed Vital Signs Vital Sign Reading Time Taken Comments Blood Pressure 127/77 09/01/2024 2:34 PM CDT Pulse 64 09/01/2024 2:34 PM CDT Temperature 36.9 C (98.4 F) 09/01/2024 2:34 PM CDT Respiratory Rate 16 07/28/2024 3:03 PM CDT Oxygen Saturation 99% 09/01/2024 2:34 PM CDT Inhaled Oxygen Concentration - - Weight 84.6 kg (186 lb 6.4 oz) 09/01/2024 2:34 P M CDT Height 182.9 cm (6') 09/01/2024 2:34 PM CDT Body Mass Index 25.28 09/01/2024 2:34 PM CDT Plan of Treatment Upcoming Encounters Date Type Department Care Team (Latest Contact Info) Description 11/17/2024 1:[address] [facility] [place] [address] Mando Rojas MD [address] [place] [address] 11/30/2024 7:30 AM CDT Hospital Encounter [facility] [place] [address] Mando Rojas MD [address] [place] [address] 11/30/2024 7:30 AM CDT - 11/30/2024 9:32 AM CDT Surgery [facility] [place] [address] Mando Rojas MD [address] [place] [address] REMOVAL OF BILATERAL LUMBAR 5- SACRAL 1 POSTERIOR SPINAL HARDWARE 12/14/2024 1:40 PM CDT Office Visit [facility] Medical Group Multispecialty Care - [address], [address] [place] [address] Jennifer Huang APRN [address] [facility] [address] [place] [address] Scheduled Procedures Name Priority Associated Diagnoses Date/Ti me LAMINECTOMY DECOMPRESSION PAIN FROM IMPLANTED HARDWARE, STATUS POST LUMBAR FUSION T84.84, Z98.1 11/30/2024 7:30 AM CDT Health Maintenance Due Date Last Done Comments Colorectal Cancer Screening Colonoscopy (10 Years) 1966 Annual Physical 1969 Hepatitis B Vaccines (1 of 3 - 19+ 3-dose series) 1985 Pneumococcal Vaccine: 50+ Years (2 of 2 - PCV) 2016 03/08/2015 COVID-19 Vaccine (2023-2 5 season) 2023 PHQ-2 (Physician [place]) 03/23/2024 DTaP, Tdap and Td Vaccines ( [...] Plan Autogenerated Problem No Mala Parker RN Medical Devices Implanted Type Area Fire Engine Pump Operator Device Identifier Shelf Expiration Date Model / Serial / Lot Putty Noemy Matrix Dbm/Dbf Bone 3ml - [id number] Implanted:Qty : 1 on 08/10/2023 by Mando Rojas MD at [facility] N/A: Spine Lumbar [employer] [id number] 06/09/2025 [id number] / [id number] / . Putty Noemy Matrix Dbm/Dbf Bone 3ml - [id number] Implanted:Qty : 1 on 08/10/2023 by Mando Rojas MD at [facility] N/A: Spine Lumbar [employer] [id number] 06/18/2025 [id number] / [id number] / . Medtronic Anteralign Spinal System Ls Spacer Implanted:Qty : 1 on 08/10/2023 by [facility] [place] N/A: Spine Lumbar [employer] [id number] 08/02/2029 [id number] / / [id number] Description:L5-S1 37 Mm Plate Implanted:Qty : 1 on 08/10/2023 by Mando Rojas MD at [facility] Plate N/A: Spine Lumbar [employer] . [id number] / / . 4.75 X 30 Mm Rods Implanted:Qty : 2 on 08/10/2023 by Mando Rojas MD at [facility] Andres N/A: Spine Lumbar [employer] . [id number] / / . 7.5 X 40 Mm Screws Implanted:Qty : 4 on 08/10/2023 by Mando Rojas MD at [facility] Screw N/A: Spine Lumbar [employer] . [id number] / / . 6.5 X 30 Mm Screw Implanted:Qty : 4 on 08/10/2023 by Mando Rojas MD at [facility] Screw N/A: Spine Lumbar [employer] . [id number] / / . Graft Soft Tissue 4x4cm [facility] Allograft - [id number] Implanted:Qty : 1 on 08/10/2023 by Mando Rojas MD at [facility] Tissue N/A: Spine Lumbar NUTECH 01/20/2028 [id number] / [id number] / Voyager Set Screws Implanted:Qty : 4 on 08/10/2023 by Mando Rojas MD at [facility] N/A: Spine Lumbar [employer] . [id number] / / . Procedures Procedure Name Priority Date/Time Associated Diagnosis Comments CT LUMB SPINE WO CON Routine 09/01/2024 12:53 PM CDT S/P lumbar spinal fusion Pain from implanted hardware, subsequent encounter INJECTION TRIGGER POINT 07/28/2024 2:51 PM CDT Z98.1 (ICD-10-CM) - S/P lumbar spinal fusion T85.848D (ICD-10-CM) - Pain from implanted hardware, subsequent encounter XR PAIN CLINIC C-ARM Today 07/28/2024 1:58 PM CDT XR LUMB SPINE AP+LAT ONLY Routine 06/30/2024 1:15 PM CDT S/P lumbar spinal fusion from Last 3 Months Results * CT LUMB SPINE WO CON (09/01/2024 12:53 PM CDT) Anatomical Region Laterality Modality Spine Computed Tomogra phy 09/08/2024 2:26 PM CDT Impressions 09/08/2024 2:33 PM CDT IMPRESSION: Postsurgical change of the lumbar spine without evidence of hardware consultation. No appreciated osseous bridging. Referred By: MANDO ROJAS Interpreted By: Sandra Maldonado DO, 09/08/2024 2:26 PM Narrative 09/08/2024 2:33 PM [address] [address] [address] LUMB SPINE WO CON: 09/01/2024 12:37 PM HISTORY: Assess for fusion. Back pain. History of lumbar fusion. COMPARISON: CT lumbar spine 04/17/2022, lumbar radiographs 06/30/2024 and 04/29/2024 TECHNIQUE: Axial images of the lumbar spine were obtained with multiplanar reformats. Soft tissue and bone windows were displayed. A dose lowering technique was utilized for this procedure which may include but is not limited to dose reduction techniques, automated exposure control, and/or the use of iterative reconstruction in accordance with ALARA principle. FINDINGS: Morphology: There is no fracture or suspicious lesion. Vertebral heights are within normal limits. Anterior and posterior fusion at L5-S1 with interbody spacer. Multilevel Schmorl's nodes. Bilateral L5 pars defects. Alignment: Alignment is within normal limits. Disc Levels: Mild multilevel spondylosis without significant osseous canal stenosis or foraminal narrowing. Disc bulge at L2-3 causing at least mild canal stenosis. Other: The paraspinous soft tissues and visualized portions of the retroperitoneum are unremarkable. Procedure Note Sandra Maldonado DO - 09/08/2024 [place] [id number] [place] [address] CT LUMB SPINE WO CON: 09/01/2024 12:37 PM HISTORY: Assess for fusion. Back pain. History of lumbar fusion. COMPARISON: CT lumbar spine 04/17/2022, lumbar radiographs 06/30/2024 and04/29/2024 TECHNIQUE: Axial images of the lumbar spine were obtained with multiplanarreformats. Soft tissue and bone windows were displayed. A dose loweringtechnique was utilized for this procedure which may include but is notlimited to dose reduction techniques, automated exposure control, and/orthe use of iterative reconstruction in accordance with ALARA principle. FINDINGS: Morphology: There is no fracture or suspicious lesion. Vertebral heightsare within normal limits. Anterior and posterior fusion at L5-S1 withinterbody spacer. Multilevel Schmorl's nodes. Bilateral L5 parsdefects. Alignment: Alignment is within normal limits. Disc Levels: Mild multilevel spondylosis without significant osseous canalstenosis or foraminal narrowing. Disc bulge at L2-3 causing at least mildcanal stenosis. Other: The paraspinous soft tissues and visualized portions of theretroperitoneum are unremarkable. IMPRESSION: Postsurgical change of the lumbar spine without evidence of hardwareconsultation. No appreciated osseous bridging. Referred By: MANDO ROJAS Interpreted By: Sandra Maldonado DO, 09/08/2024 2:26 PM us Mando Rojas MD CT Final Resul t * XR PAIN CLINIC C-ARM (07/28/2024 1:58 PM CDT) Narrative Radiology, Technologist - 07/28/2024 1:58 PM CDT This report does not contain a radiologist's interpretation. Please review associated procedure and/or operative report. Daniela Henderson MD GENERAL IMAGING Final Result * XR LUMB SPINE AP+LAT ONLY (06/30/2024 1:15 PM CDT) Anatomical Region Laterality Modality Spine Radiographic Taylor ging 06/30/2024 1:26 PM CDT Impressions 06/30/2024 1:27 PM CDT IMPRESSION: Stable postoperative appearance Ordered By: MANDO ROJAS Interpreted By: Yuriy Childs MD, 06/30/2024 1:26 PM Narrative 06/30/2024 1:27 PM CDT [place] [id number] 2 VIEWS OF THE LUMBAR SPINE Clinical History: Postop fusion Comparison: May 19, 2024 2 views of the lumbar spine demonstrate posterior and anterior interbody fusion of the L5-S1 level. Overall, the hardware is unchanged from previous. There is no evidence of component failure. Normal alignment is evident throughout. The spinous processes are normally aligned. Procedure Note Yuriy Childs MD - 06/30/2024 [place] [id number] 2 VIEWS OF THE LUMBAR SPINE Clinical [...] Final Resul t from Last 3 Months Additional Health Concerns Active Problems Noted Date Diagnosed Date Autogenerated Problem 09/21/2024 Insurance MEDICAID DEPT OF [address] Advance Directives Documents on File Type Date Recorded Patient Electronics Engineer Expl anation Advance Directives and Living Will 11/14/2022 3:10 PM 03/10/19 DURABLE POW ER OF LICENSED ELECTRICIAN FOR HEALTH CARE * Full Code (Latest [...] 9:34 PM 05/29/2021 7:00 PM Care Teams Electronic Publisher Relationship Specialty Start Date End Date Kevin Meyer PA PCP - General PHYSICIAN CONTAINER WASHER 05/28/21
--- NOTE | 2024-09-22 09:09 | ECG_ITS ---
Test Date: 2024-09-22 09:13:50 Measurements Intervals [place] Rate: 61 P: 80 [place]: 186 QRS: 82 QRSD: 94 T: 66 QT: 422 QTc: 428 Interpretive Statements SINUS RHYTHM Compared to ECG 07/04/2024 09:25:18 No significant changes Electronically Signed On 09-26-2024 22:36:39 CDT by Mary Chaudhari M.D.
[2024-09-22] MEDS: IPRATROPIUM 0.5 MG/ALBUTEROL SULFATE 2.5 MG AMPUL.NEB 3 ML INHALATION ×2 (09:27→11:40)
[2024-09-22] MEDS: ONDANSETRON INJ 4 MG/2 ML VIAL IV PUSH (09:28)
[2024-09-22] MEDS: SODIUM CHLORIDE 0.9% IV 1,000 ML 999 ML IV CONT (09:28)
[2024-09-22 09:36] LABS: Hematocrit 43.0 % (40.0-54.0); Hemoglobin 14.4 g/dL (14.0-18.0); Immature Granulocyte Percent A 0.4 % (0.0-0.0); Lymphocytes Absolute Auto 1.64 K/mm3 (1.10-4.50); Mean Corpuscular HGB Conc 33.5 g/dL (32-36); Mean Corpuscular Hemoglobin 31.3 pg (27.0-31.0); Mean Corpuscular Volume 93.5 fL (78.0-102.0); Nucleated Red Blood Cells Absolute Auto 0.00 K/mm3 (0.00-0.00); Nucleated Red Blood Cells Perc 0.0 % (0-0.0); Platelet Count Result 241 K/mm3 (150-420); Red Blood Count 4.60 M/mm3 (4.70-6.10); White Blood Count 8.2 K/mm3 (4.8-10.8)
--- OUTSIDE RECORDS SUMMARY | 2024-09-22 09:44 | XMS_ITS | Clinical Summary ---
Author Organization [facility] Address [address] [place] [address] Phone Care Team Providers Care Frontload Driver Name Role Phone Kevin Meyer Primary Care Provider [phone] Amy Allen APRN, CPC CODER Unavailable + [phone] Dawit MARISCAL MD, Courtney Unavailable [phone] Brad Bone MD Unavailable [phone] Vanda Jimenez APRN, CPC CODER Unavailable Min Mario MD Unavailable Allergies Active [...] Description 07/21/2024 9:30 AM CDT Procedure Visit [facility] [address] [place] [address] Min Mario MD Kidney stone (Primary Dx); Urinary tract infection with hematuria, site unspecified; Acute cystitis with hematuria; Prostate cancer screening Discharge Disposition: Discharged to home or Selfcare 07/21/2024 Telephone [facility] [address] [place] [address] [phone] Anne Marie Osborne RN Hypertension 07/19/2024 Travel 07/15/2024 8:27 AM CDT - 07/15/2024 11:59 PM CDT Hospital Encounter [facility] [address] [place] [address] Min Mario MD Discharge Disposition: Discharged to home or Selfcare 07/13/2024 Travel 06/30/2024 Results Follow-Up [facility] [address] [place] [address] Min Mario MD CULTURE, URINE, CT UROGRAPHY WO/W CONTRAST 06/30/2024 Results Follow-Up [facility] [address] [place] [address] Min Mario MD XR ABDOMEN KUB FLAT PLATE 06/23/2024 9:30 AM CDT Office Visit [facility] [address] [place] [address] Min Mario MD Kidney stone (Primary Dx); [...] st Contact Info) Description 02/02/2025 10:15 AM DIRECTOR APPOINTMENT Office Visit [facility] [address] [place] [address] Min Mario MD #[address], [address] [address] Health Maintenance Due Date Last Done Comments [...] the procedure well. us Min Mario MD [place] - SURGERY Final Result * CT UROGRAPHY [...] Brandon Smith M.D. MZ: CAROLYN Report ID: [id number] Reading Location: [id number] Procedure Note Brandon Smith MD - 07/21/2024 [...] Brandon Smith M.D. MZ: CAROLYN Report ID: [id number] Reading Location: [id number] IMPRESSION: No acute findings in the abdomen or pelvis. Bilateral nonobstructing renal stones. Low-attenuation lesions in the kidneys are unchanged since 12/10/2023 and are likely cysts with hemorrhagic or proteinaceous products. Attention on follow-up Min Mario MD [facility] ORDERABLES Final Result * POCT Creatinine (07/15/2024 9:02 AM CDT) CREATININE - POCT 1.2 0.6 - 1.3 mg/dL 07/15/2024 9:04 AM CDT [facility] Blood 07/15/2024 9:02 AM CDT 07/15/2024 9:04 AM CDT us None Provider POINT OF CARE TESTING Final Resu lt [facility] [address] [place] [address] * CULTURE, URINE (06/23/2024 10:11 AM CDT) CULTURE RESULTS Mixed Growth of One or More Distal Urethral Contaminants 06/24/2024 11:25 PM CDT [facility] Culture URINE SPECIMEN OBTAINED BY CLEAN CATCH PROCEDURE / Unknown Non-Phlebotomy Collection / Unknown 06/23/2024 10:11 AM CDT 06/23/2024 10:11 AM CDT us Min Mario MD MICROBIOLOGY - GENERAL ORDERABLE S Final Result [facility] [address] [place] [address], [place] from Last 3 Months Insurance MEDICAID [place] MEDICARE C [facility] Advance Directives * Full Code (Latest Code [...] all measures to stabilize patient. Care Teams Frontload Driver Relationship Specialty Start Date End Date Kevin Meyer [facility] [address] [place] [address] PCP - General Physician Senior Applications Developer 07/15/17 Amy Allen APRN, CPC CODER [address] [address] Nurse Practitioner Cardiology 01/27/23 Merlene Pastor III, MD [address]2 [place] [address] Consulting Physician Urology 10/28/21 Brad Bone MD #2 [place] [phone] Consulting Physician Neurology 09/04/22 Vanda Jimenez APRN, CPC CODER #[address] [place] [address] Nurse Practitioner Advanced Practice Nurse 07/31/22 Min Mario MD #[address] [address] Consulting Physician Urology 12/17/23
--- OUTSIDE RECORDS SUMMARY | 2024-09-22 09:44 | XMS_ITS | Clinical Summary ---
Author Organization [facility] naima [facility] Address [address] [place] [address] Care Team Providers Care Commission Specialist Name Role Phone Kevin Meyer Primary Care Provider [phone] Allergies Active Allergy Reactions Criticality Noted Date [...] daily. 024 Active naloxone (NARCAN) 4 mg/spray Elbert, Non-Aerosol EMERGENCY USE ONLY: Administer 1 spray [...] but unfortunately it is not offered at [facility] and he will have to go to [facility]. He thinks that his insurance may not be accepted at [facility] but we will try and get an [...] Department Care Team Description 09/21/2024 Orders Only [facility] Oncology and Hematology - [place] [address] [place] [address] Jorden Serrano MD 09/16/2024 Orders Only [facility] Oncology and Hematology - [place] [address] [place] [address] Jorden Serrano MD 09/13/2024 External Device Data STL ABSTRACTION Provider, Abstract 09/10/2024 [facility] Oncology and Hematology - [place] [address] [place] [address] Jorden Serrano MD 09/01/2024 Refill [facility] Oncology and Hematology - [place] [address] [place] [phone] Jorden Serrano MD 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) 08/19/2024 Orders Only [facility] Oncology and Hematology - [place] [address] [place] [phone] Jorden Serrano MD 08/16/2024 Orders Only [facility] Oncology and Hematology - [place] [address] Jorden Serrano MD 08/15/2024 Orders Only [facility] Oncology and Hematology - [place] [address] Joredn Serrano MD Benign hypertension; 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) 08/10/2024 External Device Data STL ABSTRACTION Provider, Abstract 08/09/2024 External Device Data STL ABSTRACTION Provider, Abstract 08/02/2024 Refill [facility] Oncology and Hematology - [place] [address] Jorden Serrano MD 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) 08/01/2024 Orders Only [facility] Oncology and Hematology - [place] [address] [place] [phone] Jorden Serrano MD Benign hypertension; 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 [address] [place] [address] Jorden Serrano MD Benign hypertension; [...] Description 10/11/2024 2:15 PM CDT Office Visit [facility] Oncology and Hematology [place] [address] [place] [address] Jorden Serrano MD [address] [facility] [address] [place] [address] Health Maintenance Due Date Last Done [...] Relevant to Health Maintenance Insurance MEDICAID [facility] [id number] Care Teams Commission Specialist Relationship Specialty Start Date End Date Kevin Meyer PA [address] [place] [address] PCP - General Physician Service Writer Advisor 05/31/21
--- OUTSIDE RECORDS SUMMARY | 2024-09-22 09:44 | XMS_ITS | Encounter Summary ---
Author Organization [facility] Address [address] [facility] [address] [facility] [place] [address] Phone Care Team Providers Care General Matcher Name Role Phone Kevin Meyer Primary Care Provider [phone] Amy Allen APRN, HEMODIALYSIS RN Unavailable + [phone] Dawit MARISCAL MD, Courtney Unavailable [phone] Brad Bone MD Unavailable [phone] Vanda Jimenez APRN, HEMODIALYSIS RN Unavailable Min Mario MD Unavailable Reason for Visit * Reason Comments Medication Refill Encounter Details Date Type Department Care Team (Late st Contact Info) Description 06/22/2024 Refill [facility] [place] [address] Vanda Jimenez APRN, HEMODIALYSIS RN #[address] [place] [address] Medication Refill Social History Tobacco Use Types [...] PM CDT Medication refilled and signed per [facility] chronic medication standing order for pediatric and adult patients. documented in this encounter Plan of Treatment Upcoming Encounters Date Type Department Care Team (Late st Contact Info) Description 02/02/2025 10:15 AM STOCK GRADER Office Visit ON LICENSE OF [facility] #[address] [place] [address] Min Mario MD #[address] [address] documented as of this encounter Visit Diagnoses Not on filedocumented in this encounter Care Teams General Matcher Relationship Specialty Start Date End Date Kevin Meyer PAC [address] [place] [address] PCP - General Physician Web Coordinator 07/15/17 Amy Allen APRN, HEMODIALYSIS RN #2 [facility] [address] [place] [address] Nurse Practitioner Cardiology 01/27/23 Merlene Pastor III, MD #2 [place] [address] Consulting Physician Urology 10/28/21 Brad Bone MD #2 [place] [address] Consulting Physician Neurology 09/04/22 Vanda Jimenez APRN, JUANCHO [address] [place] [address] Nurse Practitioner Advanced Practice Nurse 07/31/22 Min Mario MD #[address] [address] Consulting Physician Urology 12/17/23 documented as of this encounter
--- OUTSIDE RECORDS SUMMARY | 2024-09-22 09:45 | XMS_ITS | Encounter Summary ---
Author Organization [facility] Address [address] [place] [address] Care Team Providers Care Furniture Delivery Driver Name Role Phone Kevin Meyer Primary Care Provider [phone] Reason for Visit * Reason Onset Date Comments Pre-op Surgery/Cosmetic 09/21/2024 Pre-Op I nstructions/Education Encounter Details Date Type Department Care Team (Late st Contact Info) Description 09/21/2024 Telephone [facility] Multispecialty Care - [facility] [address], [address] [place] [phone] Mando Rojas MD [address] [place] [address] Pre-op Surgery/Cosmetic (Pre-Op Instructions/Educatio n) Social History [...] from your doctor or pharmacy? Never 08/10/2023 [facility] Utilities Answer Date Recorded In the past 12 months has e [employer], gas, oil, or water [employer] threatened to shut off services in your [...] and heating? Not hard at all 08/10/2023 [facility] Occupat ional Health - Occupational Stress [...] any time in the past 12 m [facility], were you homeless or living in a retirement (including now)? No 08/10/2023 Sex and Gender [...] Info) Description 11/17/2024 1:00 PM CDT [facility]ointment [facility] [place] [address] Mando Rojas MD [address] [place] [address] 11/30/2024 7:30 AM CDT Hospital Encounter [facility] [place] [address] Mando Rojas MD [address] [place] [address] 11/30/2024 7:30 AM CDT - 11/30/2024 9:32 AM CDT Surgery [facility] [place] [address] Mando Rojas MD [address] [place] [address] REMOVAL OF BILATERAL LUMBAR 5- SACRAL 1 POSTERIOR SPINAL HARDWARE 12/14/2024 1:40 PM CDT Office Visit [facility] Multispecialty Care - [facility] [address], [address] [place] [address] Jennifer Huang, GAYATHRI [address] [facility] [address] [place] [address] Scheduled Procedures Name Priority Associated Diagnoses Date/Ti [...] documented as of this encounter Care Teams Furniture Delivery Driver Relationship Specialty Start Date End Date Kevin Meyer PA PCP - General PHYSICIAN TOW OPERATOR 05/28/21 documented as of this encounter
--- OUTSIDE RECORDS SUMMARY | 2024-09-22 09:45 | XMS_ITS ---
Author Organization Unknown Address [address] [place] [phone] Phone Care Team Providers Care Associate Professor Plant Pathology Name Role Phone TONYA Forrest Attending Unavailable [...] DIFF - Collect Date/T nadia: 01/26/2023 15:30 [facility] ID: [id number] [address] [place], [place], [id number] LOINC: 32166-3 Test Value Unit Reference Range Code Code System Flag WBC 10.1 10^3uL L=4.8 H=10.8 RBC 4.22 10^6uL L=4.60 H=6.20 L HEMOGLOBIN 13.5 g/dL L=14.0 H=18.0 718-7 LOINC L HEMATOCRIT 39.3 VOL% L=42.0 H=52.0 4544-3 LOINC L MCV 93.1 fL L=80.0 H=94.0 MCH 32.0 pg L=27.0 H=32.0 MCHC 34.4 g/dL L=32.0 H=36.0 PLATELETS 227 10^3uL L=100 H=400 22819-2 LOINC RDW 12.7 % L=11.7 H=15.5 %GRAN 72.5 % L=40.0 H=70.0 05992-7 LOINC H %LYMPH 12.1 % L=20.0 H=45.0 736-9 LOINC L %MONO 11.1 % L=2.0 H=10.0 82031-9 LOINC H %EOS 3.2 % L=0.0 H=6.0 713-8 LOINC %BASO 0.5 % L=0.0 H=3.0 706-2 LOINC #NEUT 7.3 10^3uL L=1.9 H=7.6 25158-0 LOINC #LYMPH 1.2 10^3uL L=0.9 H=4.9 24687-3 LOINC #MONO 1.1 10^3uL L=0.1 H=0.9 32686-8 LOINC H #EOS 0.3 10^3uL L=0.0 H=0.6 712-0 LOINC #BASO 0.05 10^3uL L=0.00 H=0.10 87280-9 LOINC #IM GRANS 0.1 10^3uL L=0.0 H=7.0 71649-6 LOINC %IM GRANS 0.6 % L=0.0 H=5.0 98940-1 LOINC %NRB 0.0 L=0.0 H=0.2 71036-3 LOINC #NRB 0.000 L=0.000 H=0.012 08636-1 LOINC MANUAL DIFF NOT INDICATED RBC MORPH NOT INDICATED COMPREHENSIVE METABOLIC PANE L - Collect Date/Time: 01/26/2023 15:30 [facility] ID: [id number] [address] [place], [place], [id number] LOINC: 46343-6 Test Value Unit Reference Range Code Code [...] 2028-9 LOINC ANION GAP 13 L=10 H=20 43227-5 LOINC OSMOLALITY 271 mOs/kG L=280 H=296 36457-6 LOINC L BUN/CREAT 9.2 3097-3 LOINC CALCIUM 9.4 mg/dL L=8.3 H=10.5 64934-7 LOINC AST 29 U/L L=15 H=46 1920-8 LOINC ALT 33 U/L L=9 H=72 1742-6 LOINC ALKALINE PHOS 115 U/L L=38 H=126 6768-6 LOINC TOTAL BILI 0.6 mg/dL L=0.2 H=1.3 1975-2 LOINC ALBUMIN 4.5 G/dL L=3.5 H=5.0 1751-7 LOINC TOTAL PROTEIN 8.1 g/L L=6.3 H=8.2 2885-2 LOINC A/G RATIO 1.3 09348-1 LOINC AGE 57 88393-1 LOINC eGFR NON-AFR 67 ml/min eGFR AFR AMER 81 ml/min URINALYSIS w/Microscopy/C&S if indicated - Collect Date/Time: 01/26/2023 14:34 [facility] ID: [id number] [address] [place] [address], [id number] LOINC: 32046-7 Test Value Unit Reference Range Code Code System Flag UR SOURCE UNKNOWN 24674-1 LOINC COLOR LT YELLOW YELLOW 5778-6 LOINC CLARITY CLEAR CLEAR 37523-2 LOINC SPEC GRAVITY <=1.005 1.000-1.030 5811-5 LOINC PH 5.5 5.0 - 6.5 5803-2 LOINC LEUK EST NEGATIVE NEGATIVE 5799-2 LOINC NITRATE NEGATIVE NEGATIVE PROTEIN NEGATIVE NEGATIVE 5804-0 LOINC GLUCOSE NEGATIVE NEGATIVE 07050-1 LOINC KETONES NEGATIVE NEGATIVE 34575-9 LOINC UROBILINOGEN 0.2 NEGATIVE 5818-0 LOINC BILIRUBIN NEGATIVE NEGATIVE 99806-3 LOINC BLOOD NEGATIVE NEGATIVE 83683-1 LOINC WBC 0-2 0 - 2 87850-6 LOINC RBC 0-2 0 - 2 40549-1 LOINC EPITHELIAL RARE RARE-FEW 89479-4 LOINC BACTERIA NONE SEEN NONE SEEN 20590-3 LOINC MUCUS NONE SEEN NONE SEEN 8247-9 LOINC YEAST NOT PRESENT NOT PRESENT 72365-8 LOINC CASTS NONE SEEN 86717-6 LOINC CRYSTALS NONE SEEN 70907-7 LOINC CULTURE? NO 8251-1 LOINC DIAGNOSIS N/A CT ABD/PEL W/ CONTRAST - Com pleted: 01/26/2023 16:32 LOINC: 05817-9 EXAM DESCRIPTION: CT ABD/PEL W/ CONTRAST REASON [...] for this examination. CONTRAST TYPE/DOSE: 100 of [id number] injected via lac COMPARISON: None available on [...] Wetzel M.D., D.O. MW: RAMIRO Report ID: [id number] Reading Location: [id number] Social History Type Status Start Date End Date Code Code Syst em Smoking History Never smoker (Never Smoked) 996867475 SNOMED CT Sex Male Hospital Discharge Instructions [...]
--- OUTSIDE RECORDS SUMMARY | 2024-09-22 09:45 | XMS_ITS ---
Author Organization Unknown Address [address] [place] [phone] Phone Care Team Providers Care Marine Specialist Name Role Phone ROBBIE CEJA Attending Unavailable [...] em Smoking History Never smoker (Never Smoked) [id number] SNOMED CT Sex Male Hospital Discharge Instructions [...]
--- OUTSIDE RECORDS SUMMARY | 2024-09-22 09:45 | XMS_ITS ---
Author Organization Unknown Address [address] [place], [place] [phone] Phone Care Team Providers Care Reinsurance Analyst Name Role Phone LIBRA AMINA Attending Unavailable [...] DIFF - Collect Date/T nadia: 08/05/2023 10:34 [facility] ID: [id number] [place], [place], [id number] LOINC: 26428-7 Test Value Unit Reference Range Code Code System Flag WBC 7.5 10^3uL L=4.8 H=10.8 RBC 4.53 10^6uL L=4.60 H=6.20 L HEMOGLOBIN 14.1 g/dL L=14.0 H=18.0 718-7 LOINC HEMATOCRIT 41.5 VOL% L=42.0 H=52.0 4544-3 LOINC L MCV 91.6 fL L=80.0 H=94.0 MCH 31.1 pg L=27.0 H=32.0 MCHC 34.0 g/dL L=32.0 H=36.0 PLATELETS 242 10^3uL L=100 H=400 64105-2 LOINC RDW 13.1 % L=11.7 H=15.5 %GRAN 64.6 % L=40.0 H=70.0 57406-1 LOINC %LYMPH 18.1 % L=20.0 H=45.0 736-9 LOINC L %MONO 11.6 % L=2.0 H=10.0 31271-3 LOINC H %EOS 3.6 % L=0.0 H=6.0 713-8 LOINC %BASO 0.8 % L=0.0 H=3.0 706-2 LOINC #NEUT 4.9 10^3uL L=1.9 H=7.6 06851-6 LOINC #LYMPH 1.4 10^3uL L=0.9 H=4.9 97701-4 LOINC #MONO 0.9 10^3uL L=0.1 H=0.9 50097-0 LOINC #EOS 0.3 10^3uL L=0.0 H=0.6 712-0 LOINC #BASO 0.06 10^3uL L=0.00 H=0.10 25282-6 LOINC #IM GRANS 0.1 10^3uL L=0.0 H=7.0 00976-6 LOINC %IM GRANS 1.3 % L=0.0 H=5.0 00970-5 LOINC %NRB 0.0 L=0.0 H=0.2 37076-0 LOINC #NRB 0.000 L=0.000 H=0.012 57283-6 LOINC MANUAL DIFF NOT INDICATED RBC MORPH NOT INDICATED HGB A1C -GLYCOHEMOGLOBIN - C ollect Date/Time: 08/05/2023 10:34 [facility] ID: [id number] [place], [place], [id number] LOINC: 4548-4 Test Value Unit Reference Range Code Code System Flag HGBA1C 5.9 % 4548-4 LOINC LIVER PROFILE - Collect Date /Time: 08/05/2023 10:34 [facility] ID: [id number] [place], [place], [id number] LOINC: 77681-6 Test Value Unit Reference Range Code Code [...] PANEL - Collect Date/T nadia: 08/05/2023 10:34 [facility] ID: [id number] [place], [place], [id number] LOINC: 84253-4 Test Value Unit Reference Range Code Code System Flag FASTING NO CHOLESTEROL 256 mg/dL L=0 H=200 2093-3 LOINC H TRIGLYCERIDE 175 mg/dL L=0 H=150 2571-8 LOINC H HDL 52 mg/dL L=40 H=60 2085-9 LOINC LDL 156 mg/dL 9-1 LOINC SEROTONIN - Collect Date/Lux e: 08/05/2023 10:34 [facility] ID: [id number] [place], [place], [id number] LOINC: 14524-0 Test Value Unit Reference Range Code Code System Flag Serotonin, Serum 18 31-207 85321-9 LOINC L BASIC METABOLIC PANEL - Jairo ect Date/Time: 08/05/2023 10:34 [facility] ID: [id number] [place], [place], [id number] LOINC: 33422-7 Test Value Unit Reference Range Code Code System Flag FASTING NO BUN 11 mg/dL L=7 H=20 3094-0 LOINC CREATININE 1.20 mg/dL L=0.66 H=1.25 2160-0 LOINC GLUCOSE 113 mg/dL L=74 H=106 2345-7 LOINC H CALCIUM 9.3 mg/dL L=8.3 H=10.5 96020-2 LOINC SODIUM 132 mmol/L L=132 H=144 2951-2 LOINC POTASSIUM 3.9 mmol/L L=3.5 H=5.1 2823-3 LOINC CHLORIDE 94 mmol/L L=98 H=107 2075-0 LOINC L CO2 31.0 mmol/L L=22.0 H=30.0 8-9 LOINC H ANION GAP 11 L=10 H=20 83190-9 LOINC BUN/CREAT 9.2 3097-3 LOINC AGE 58 [address]63-1 LOINC eGFR NON-AFR 66 ml/min eGFR AFR AMER 80 ml/min Social History Type Status Start Date End Date Code Code Syst em Smoking History Never smoker (Never Smoked) [id number] SNOMED CT Sex Male Hospital Discharge Instructions [...]
--- OUTSIDE RECORDS SUMMARY | 2024-09-22 09:45 | XMS_ITS | Encounter Summary ---
Author Organization [facility] Address [facility] [place] [address] Care Team Providers Care Burning Plant Operator Name Role Phone None, Provider Primary Care Provider Kevin Hassan Primary Care Provider [phone] Encounter Details Date Type Department Care Team (Late st Contact Info) Description 08/28/2018 Abstract [facility] CONVERSION [address] [place] [address] , Generic Conversion, Social History Tobacco Use [...] CDT Appointment [facility] [place] [address] Mando Rojas MD [address] [place], [place] [address] 11/30/2024 7:30 AM CDT Hospital Encounter [facility] [place] [address] Mando Rojas MD 3 [facility] [place] [address] 11/30/2024 7:30 AM CDT - 11/30/2024 9:[address] [facility] [place] [address] Mando Rojas MD 3 [place] [address] REMOVAL OF BILATERAL LUMBAR 5- SACRAL 1 POSTERIOR SPINAL HARDWARE 12/14/2024 1:40 PM CDT Office Visit [facility] Multispecialty Care - [facility] [address] [facility], [address] [place] [address] Jennifer Huang APRN [address] [facility] [address] [place] [address] Scheduled Procedures Name Priority Associated Diagnoses Date/Ti [...] Rule Out 05/25/2021 05/25/2021 05/25/2021 9:39 PM METAL FURNITURE GLAZIER COVID-19 Rule Out 03/03/2023 03/03/2023 03/04/2023 7:03 PM METAL FURNITURE GLAZIER documented as of this encounter Care Teams Burning Plant Operator Relationship Specialty Start Date End Date None, Provider, PCP - General 01/10/20 05/27/21 Kevin Meyer PA PCP - General PHYSICIAN BUILDING EQUIPMENT OPERATOR 05/28/21 documented as of this encounter
--- OUTSIDE RECORDS SUMMARY | 2024-09-22 09:45 | XMS_ITS | Encounter Summary ---
Author Organization [facility] Address [address] [facility] [place] [address] Phone Care Team Providers Care Pleater Name Role Phone Kevin Meyer Primary Care Provider [phone] Amy Allen APRN, CARDIAC TECHNOLOGIST Unavailable + [phone] Dawit MARISCAL MD, Courtney Unavailable [phone] Brad Bone MD Unavailable [phone] Vanda Jimenez APRN, CARDIAC TECHNOLOGIST Unavailable Min Mario MD Unavailable Encounter Details Date Type Department Care Team (Latest Contact Info) Description 02/25/2023 Transcribe [facility] [address] [place] [address] Tavo Polo MD PhD #2 [place] [address] Abnormal echocardiogram (Primary Dx); Preprocedural [...] st Contact Info) Description 02/02/2025 10:15 AM SATELLITE SPECIALIST Office Visit [facility] [address] [place] [phone] Min Mario MD #[address], [facility] [address] [place] [address] documented as of this encounter Results * (ABNORMAL) BASIC METABOLIC PANEL W/ CALCIUM TOTAL (04/16/2023 3:23 PM SATELLITE SPECIALIST) SODIUM 137 136 - 145 mmol/L 04/16/2023 5:[address] [facility] POTASSIUM 3.5 3.5 - 5.1 mmol/L 04/16/2023 5:[address] [facility] CHLORIDE 100 98 - 107 mmol/L 04/16/2023 5:[address] [facility] CO2, VENOUS 29 22 - 30 mmol/L 04/16/2023 5:[address] [facility] ANION GAP 11.5 <18.0 mmol/L 04/16/2023 5:[address] [facility] GLUCOSE 92 70 - 99 mg/dL 04/16/2023 5:[address] [facility] BUN 7(L) 8 - 26 mg/dL 04/16/2023 5:[address] [facility] CREATININE, BLOOD 1.00 0.70 - 1.30 mg/dL 04/16/2023 5:[address] [facility] BUN/CREATININE RATIO 7(L) 12 - 20 ratio 04/16/2023 5:[address] [facility] CALCIUM 9.1 8.7 - 10.5 mg/dL 04/16/2023 5:[address] [facility] IS THE PATIENT REQUIRED TO BE FASTING? No 04/16/2023 5:06 PM SATELLITE SPECIALIST [facility] GFR, ESTIMATED >60 >=60 04/16/2023 5:06 PM SATELLITE SPECIALIST [facility] Comment: Creatinine Clearance is the preferred criteria for selecting drug dose adjustments in renally impaired patients. The GFR is provided as additional pertinent clinical information. GFR is reported in mL/min/1.73 sq m. Calculation based on the Chronic Kidney Disease Epidemiology Collaboration (CKD- EPI) equation refit without adjustment for race. GFR, EST. >60 >=60 024 5:06 PM SATELLITE SPECIALIST [facility] GFR, EST. NONAFRICAN >60 >=60 04/16/2023 5:06 PM SATELLITE SPECIALIST [facility] Blood Venipuncture / Unknown 04/16/2023 3:23 PM SATELLITE SPECIALIST 04/16/2023 4:25 PM SATELLITE SPECIALIST Tavo Polo MD PhD CHEMISTRY ORDERABLES Final Result [facility] #[address] [place] [address] documented in this encounter Visit Diagnoses Diagnosis Abnormal echocardiogram- Primary Nonspecific (abnormal) findings on radiological and other examination of other intrathoracic organs Preprocedural cardiovascular examination Pre-operative cardiovascular examination documented in this encounter Care Teams Pleater Relationship Specialty Start Date End Date Kevin Meyer PAC [address] [place] [address] PCP - General Physician Bottle Machine Operator 07/15/17 Amy Allen APRN, CARDIAC TECHNOLOGIST #2 [facility] [address] [place] [address] Nurse Practitioner Cardiology 01/27/23 Merlene Pastor III, MD #2 [place] [address] Consulting Physician Urology 10/28/21 Brad Bone MD #[address] [place] [address] Consulting Physician Neurology 09/04/22 Vanda Jimenez APRN, CARDIAC TECHNOLOGIST [address] [place] [address] Nurse Practitioner Advanced Practice Nurse 07/31/22 Min Mario MD #[address] [address] Consulting Physician Urology 12/17/23 documented as of this encounter
--- OUTSIDE RECORDS SUMMARY | 2024-09-22 09:45 | XMS_ITS | Clinical Summary ---
Author Organization [facility] Address [address] [address] Care Team Providers Care Mattress Spring Encaser Name Role Phone Kevin Meyer Primary Care Provider [phone] Allergies Active Allergy Reactions Criticality Noted Date [...] 03/08/2015 Insurance Medicare Medicaid [place] Care Teams Mattress Spring Encaser Relationship Specialty Start Date End Date Kevin Meyer PA [address] [place] [address] PCP - General Internal Medicine 10/20/18
--- OUTSIDE RECORDS SUMMARY | 2024-09-22 09:45 | XMS_ITS | Encounter Summary ---
Author Organization [facility] Address [facility] [place] [address] Care Team Providers Care Rod Filler Name Role Phone Kevin Meyer Primary Care Provider [phone] Encounter Details Date Type Department Care Team (Latest Contact Info) Description 09/21/2024 VoulezVousDiner Message Enc [facility] Medical Group Multispecialty Care - [facility] [address] [facility], [address] [place] [id number] Pari, [facility] Provider Pre-Op Instructions/Educat ion Social History Tobacco [...] from your doctor or pharmacy? Never 08/10/2023 [facility] Utilities Answer Date Recorded In [...] and heating? Not hard at all 08/10/2023 [facility] - Occupational [...] any time in the past 12 m [facility], were you homeless or living in [...] PM CDT Appointment [facility] [place] [address] Mando Rojas MD [address] [place] [address] 11/30/2024 7:30 AM CDT Hospital Encounter [facility] [place] [address] Mando Rojas MD 3 [place] [address] 11/30/2024 7:30 AM CDT - 11/30/2024 9:[address] [place] [address] Mando Rojas MD 3 [place] [address] REMOVAL OF BILATERAL LUMBAR 5- SACRAL 1 POSTERIOR SPINAL HARDWARE 12/14/2024 1:40 PM CDT Office Visit [facility] Medical Group Multispecialty Care - [facility] [address], [address] [place] [phone] Jennifer Huang APRN 3 [facility] [address] [place] [address] Scheduled Procedures Name Priority Associated Diagnoses Date/Ti [...] documented as of this encounter Care Teams Rod Filler Relationship Specialty Start Date End Date Kevin Meyer PA PCP - General PHYSICIAN ADULT DAY CARE WORKER 05/28/21 documented as of this encounter
--- OUTSIDE RECORDS SUMMARY | 2024-09-22 09:45 | XMS_ITS | Encounter Summary ---
Author Organization [facility] Address [address] [place] [address] Care Team Providers Care Jitterbug Operator Name Role Phone Kevin Meyer Primary Care Provider [phone] Reason for Visit * Reason Onset Date Comments Prior Authorization 09/22/2024 Encounter Details Date Type Department Care Team (Late st Contact Info) Description 09/22/2024 Telephone [facility] Medical Group Multispecialty Care - [facility] [address] [facility], [address] [place] [address] Mando Rojas MD 3 [place] [address] Prior Authorization Social History Tobacco Use Types [...] from your doctor or pharmacy? Never 08/10/2023 [facility] Utilities Answer Date Recorded In the past [...] and heating? Not hard at all 08/10/2023 [facility] Occupat ional Health - Occupational Stress [...] any time in the past 12 m [facility], were you homeless or living in a assisted (including now)? No 08/10/2023 Sex and Gender [...] CDT 09/22/2024 - [facility] Medicare Replacement - Primary Auth/Case # [id number] - Pending - All requested medical and imaging documentation as well as any injection records, physical therapy, and materials used uploaded with authorization. CPT Code: 14982 Dx Code: T84.84XD documented in this encounter Plan of Treatment Upcoming Encounters Date Type Department Care Team (Latest Contact Info) Description 11/17/2024 1:[address] [place] [address] Mando Rojas MD 3 [place] [address] 11/30/2024 7:30 AM CDT Hospital Encounter [facility] [place] [address] Mando Rojas MD 3 [place], [place] [address] 11/30/2024 7:30 AM CDT - 11/30/2024 9:32 AM CDT Surgery [place], [place] [id number] Mando Rojas MD 3 [place] [address] REMOVAL OF BILATERAL LUMBAR 5- SACRAL 1 POSTERIOR SPINAL HARDWARE 12/14/2024 1:40 PM CDT Office Visit [facility] Medical Group Multispecialty Care - [facility] [address] [facility], [address] [place] [address] SalOumarJennifer Sujatha LAND DEGRADATION ANALYST 3 [facility] [address] [place] [address] Scheduled Procedures Name Priority Associated Diagnoses Date/Ti [...] documented as of this encounter Care Teams Jitterbug Operator Relationship Specialty Start Date End Date Kevin Meyer PA PCP - General PHYSICIAN PUBLIC HEALTH EDUCATOR 05/28/21 documented as of this encounter
--- OUTSIDE RECORDS SUMMARY | 2024-09-22 09:45 | XMS_ITS ---
Author Organization Unknown Address [address] [place] [id number] Phone Care Team Providers Care Pharmaceutical Process Engineer Name Role Phone PLASTERER ROUGH PHYLLIS Attending Unavailable SUYAPA YIN Primary Unavailable [...] normal in course and morphology. There is ykcy-cn-yqtenlit olecranon bursitis with a dorsal soft tissue [...] 2:15 PM - Electronically signed by Paul Vlaencia M.D. MF: [email or web address] Report ID: [id number] Reading Location: [id number] THIS IS AN ELECTRONICALLY VERIFIED FINAL REPORT 02/26/2023 10:28 AM ? Addendum Electronically signed by Paul Valencia M.D. MF: [email or web address] Report ID: [id number] Reading Location: [id number] Social History Type Status Start Date End Date Code Code Syst em Smoking History Never smoker (Never Smoked) [id number] SNOMED CT Sex Male Hospital Discharge Instructions [...]
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
--- OUTSIDE RECORDS SUMMARY | 2024-09-22 09:46 | XMS_ITS | Clinical Summary ---
Author Organization [facility] Address [facility] [place] [address] Care Team Providers Care Aircraft Air Conditioning Mechanic Name Role Phone Kevin Meyer Primary Care Provider [phone] Allergies Active Allergy Reactions Criticality Noted Date [...] fusion 08/10/2023 Other osteomyelitis of left ulna (CMS/[facility]/HC C) 03/13/2023 Complex tear of medial menis cus of right knee as current injury, subsequent encounter 10/08/2022 Unspecified open wound of left elbow, subsequent encounter 08/11/2022 Septic olecranon bursitis of left elbow 06/24/19 23 Syncope 05/25/2021 Encounters Date Type Department Care Team Description 09/22/[address], [address] [place] [address] Mando Rojas MD Prior Authorization 09/21/[address], [address] [place] [address] Mando Rojas MD Pre-op Surgery/Cosmetic (Pre-Op Instructions/Educati on) 09/21/2024 [employer] Message Enc [address], [address] [place] [address] [facility] Provider Pre-Op Instructions/Educati on 09/20/[address], [address] [place] [address] Mando Rojas MD Schedule Surgery 09/07/2024 [facility] [address] [place] [address] Mando Rojas MD Schedule Surgery 09/01/2024 2:20 PM CDT [facility] - [address], [address] [place] [address] Mando Rojas MD Follow Up 09/01/2024 12:37 PM CDT - 09/01/2024 11:59 PM CDT Hospital Encounter [facility] [address] [place] [address] Mando Rojas MD Discharge Disposition: Home or Self Care (Routine Discharge) 09/01/2024 Travel 08/09/2024 [facility]phone [facility] - [address], [address] [place] [address] Mando Rojas MD Concerns 07/28/2024 2:40 PM CDT - 07/28/2024 3:00 PM CDT Surgery [facility] [place] [address] [id number] Daniela Henderson MD INJECTION TRIGGER POINT - LEFT HARDWARE BLOCKS L5-S1 07/28/2024 1:56 PM CDT - 07/28/2024 3:13 PM CDT Hospital Encounter [facility] [place] [address] [id number] Daniela Henderson MD Discharge Disposition: Home or Self Care (Routine Discharge) 07/28/2024 Travel 07/26/2024 Telephone [facility] [place] [address] [id number] Elizabeth Bonilla, RN Follow Up Call 07/26/2024 Telephone [facility] [place] [address] [id number] Elizabeth Bonilla RN Question 07/18/2024 Telephone [facility] [place] [address] [id number] Buffy Argueta RN Follow Up (/) 06/30/2024 1:40 PM CDT Office Visit [facility] - [facility] [address], [address] [place] [address] Mando Rojas MD Follow Up 06/30/2024 12:58 PM CDT - 06/30/2024 11:59 PM CDT Hospital Encounter [facility] [place] [address] Mando Rojas MD Discharge Disposition: Home or [...] from your doctor or pharmacy? Never 08/10/2023 [facility] Utilities Answer Date Recorded In the past 12 months has [facility] [employer], gas, oil, or water [employer] threatened to shut off services in your [...] and heating? Not hard at all 08/10/2023 [facility] [place] of Occupat ional Health - Occupational Stress [...] any time in the past 12 m [facility], were you homeless or living in a penitentiary (including now)? No 08/10/2023 Sex and Gender [...] PM CDT Appointment [facility] [place] [address] Mando Rojas MD [address] [place] [address] 11/30/2024 7:30 AM CDT Hospital Encounter [facility] [place] [address] Mando Rojas MD [address] [place] [address] 11/30/2024 7:30 AM CDT - 11/30/2024 9:32 AM CDT Surgery [facility] [place] [address] Mando Rojas MD [address] [place] [address] REMOVAL OF BILATERAL LUMBAR 5- SACRAL 1 POSTERIOR SPINAL HARDWARE 12/14/2024 1:40 PM CDT Office Visit [facility] Multispecialty Care - [address], [address] [place] [address] Jennifer Huang APRN [address] [facility] [address] [place] [address] Scheduled Procedures Name Priority Associated Diagnoses Date/Ti [...] Vaccine (2023-2 5 season) 2023 PHQ-2 (Physician [place]) 03/23/2024 DTaP, Tdap and Td Vaccines ( [...] Parker RN Medical Devices Implanted Type Area Core Analyst Device Identifier Shelf Expiration Date Model / Serial / Lot Putty Noemy Matrix Dbm/Dbf Bone 3ml - [id number] Implanted:Qty : 1 on 08/10/2023 by Mando Rojas MD at Health system N/A: Spine Lumbar [employer] [id number] 06/09/2025 [id number] / [id number] / . Putty Noemy Matrix Dbm/Dbf Bone 3ml - [id number] Implanted:Qty : 1 on 08/10/2023 by Mando Rojas MD at Health system N/A: Spine Lumbar [employer] [id number] 06/18/2025 [id number] / [id number] / . Medtronic Anteralign Spinal System Ls Spacer Implanted:Qty : 1 on 08/10/2023 by [facility] C[facility] N/A: Spine Lumbar [employer] [id number] 08/02/2029 [id number] / / [id number] Description:L5-S1 37 Mm Plate Implanted:Qty : 1 on 08/10/2023 by Mando Rojas MD at [facility] Plate N/A: Spine Lumbar [employer] . [id number] / / . 4.75 X 30 Mm Rods Implanted:Qty : 2 on 08/10/2023 by Mando Rojas MD at [facility] Andres N/A: Spine Lumbar [employer] . [id number] / / . 7.5 X 40 Mm Screws Implanted:Qty : 4 on 08/10/2023 by Mando Rojas MD at [facility] Screw N/A: Spine Lumbar [employer] . [id number] / / . 6.5 X 30 Mm Screw Implanted:Qty : 4 on 08/10/2023 by Mando Rojas MD at [facility] Screw N/A: Spine Lumbar [employer] . [id number] / / . Graft Soft Tissue 4x4cm [facility] Allograft - [id number] Implanted:Qty : 1 on 08/10/2023 by Mando Rojas MD at [facility] Tissue N/A: Spine Lumbar [employer] 01/20/2028 [id number] / [id number] / Voyager Set Screws Implanted:Qty : 4 on 08/10/2023 by Mando Rojas MD at [facility] N/A: Spine Lumbar [employer] . [id number] / / . Procedures Procedure Name Priority [...] 2:26 PM Narrative 09/08/2024 2:33 PM CDT [address] [address] [place] LUMB SPINE WO CON: 09/01/2024 12:37 [...] Sandra Maldonado DO - 09/08/2024 [address] [place] [address] CT LUMB SPINE WO CON: 09/01/2024 12:37 [...] 1:26 PM Narrative 06/30/2024 1:27 PM CDT [place] [id number] 2 VIEWS OF THE LUMBAR SPINE Clinical History: Postop fusion Comparison: May 19, 2024 2 views of the lumbar spine demonstrate posterior and anterior interbody fusion of the L5-S1 level. Overall, the hardware is unchanged from previous. There is no evidence of component failure. Normal alignment is evident throughout. The spinous processes are normally aligned. Procedure Note Yuriy Childs MD - 06/30/2024 [place] [id number] 2 VIEWS OF THE LUMBAR SPINE Clinical [...] Autogenerated Problem 09/21/2024 Insurance MEDICAID DEPT OF [address] Advance Directives Documents on File Type Date Recorded Patient Electric Blanket Packer Expl anation Advance Directives and Living Will 11/14/2022 3:10 PM 03/10/19 DURABLE POW ER OF THREADING MACHINE SETTER FOR HEALTH CARE * Full Code (Latest [...] 9:34 PM 05/29/2021 7:00 PM Care Teams Aircraft Air Conditioning Mechanic Relationship Specialty Start Date End Date Kevin Meyer PA PCP - General PHYSICIAN FLAT FOLDING MACHINE OPERATOR 05/28/21
--- OUTSIDE RECORDS SUMMARY | 2024-09-22 09:46 | XMS_ITS | Encounter Summary ---
Author Organization [facility] [employer] Address [address] [place] [address] Care Team Providers Care Supervisor Accounts Receivable Name Role Phone Kevin Meyer Primary Care Provider [phone] Encounter Details Date Type Department Care Team ([facility] Contact Info) Description 09/21/2024 Orders Only [facility] Oncology and Hematology [facility] [address] [place] [address] Jorden Serrano MD [address] [place], [place] [address] [address] [place] [address] Social History Tobacco Use Types Packs/Day [...] Description 10/11/2024 2:15 PM CDT Office Visit [facility] Oncology and Hematology [facility] [address] [place] [address] Jorden Serrano MD [facility] [employer] [address] [place] [phone] documented as of this encounter Procedures Procedure Name Priority Date/Time Associated Diagnosis Comments SEROTONIN LEVEL Routine 09/09/2024 7:14 AM CDT documented in this encounter Results * SEROTONIN LEVEL (09/09/2024 7:14 AM CDT) Blood us Jorden Serrano MD CHEMISTRY ORDERABLES Final Resu lt documented in this encounter Visit Diagnoses Not on filedocumented in this encounter Care Teams Supervisor Accounts Receivable Relationship Specialty Start Date End Date Kevin Meyer PA [address] [place] [address] PCP - General Physician Metal Fitters And Machinists 05/31/21 documented as of this encounter
--- OUTSIDE RECORDS SUMMARY | 2024-09-22 09:46 | XMS_ITS | Clinical Summary ---
Author Organization [facility] Address [address] [facility] [place] [address] Care Team Providers Care Air Traffic Control Specialist Center Name Role Phone Kevin Meyer Primary Care Provider Source Comments [facility],non-owned Affiliates and Associated Physician Practices is amultiple site organization consisting of ambulatory clinics and hospital sitesin [place], [place], [place] and [place]. This disclosure is being madepursuant to the Care Everywhere program and may not contain all information available regarding this patient. Last updated 17.[facility] Allergies Active Allergy Reactions Criticality Noted [...] on file Legal Sex Male 4:24 AM GUIDE DOG INSTRUCTOR Gender Identity Not on file Sexual Orientation Not on file Last Filed Vital Signs Vital Sign Reading Time Taken Comments Blood Pressure 134/79 04/23/2022 1:34 PM GUIDE DOG INSTRUCTOR Pulse 62 04/23/2022 1:34 PM GUIDE DOG INSTRUCTOR Temperature 36.4 C (97.5 F) 04/23/2022 1:34 PM GUIDE DOG INSTRUCTOR Respiratory Rate 18 10/15/2021 6:45 PM CDT Oxygen Saturation 100% 04/23/2022 1:34 PM GUIDE DOG INSTRUCTOR Inhaled Oxygen Concentration - - Weight 94.3 kg (208 lb) 04/23/2022 1:34 PM GUIDE DOG INSTRUCTOR Height 182.9 cm (6') 10/15/2021 7:20 AM [...] COMPREHENSIVE METABOLIC PANEL Routine 04/23/2022 11:02 AM GUIDE DOG INSTRUCTOR Neuroendocrine carcinoma metastatic to liver from Last 3 Months or Most Recently Relevant to Health Maintenance Results * (ABNORMAL) COMPREHENSIVE METABOLIC PANEL (04/23/2022 11:02 AM [facility]) BUN 14 7 - 26 mg/dL 04/23/2022 11:56 AM [facility] Creatinine 0.81 0.71 - 1.16 mg/dL 04/23/2022 11:56 AM [facility] Sodium 136 136 - 145 mmol/L 04/23/2022 11:56 AM [facility] Potassium 3.9 3.5 - 4.5 mmol/L 04/23/2022 11:56 AM [facility] Chloride 102 98 - 107 mmol/L 04/23/2022 11:56 AM [facility] CO2 23 22 - 29 mmol/L 04/23/2022 11:56 AM [facility] Glucose 117(H) 70 - 115 mg/dL 04/23/2022 11:56 AM [facility] Calcium 9.1 8.4 - 10.2 mg/dL 04/23/2022 11:56 AM [facility] Protein Total 7.0 6.0 - 8.3 g/dL 04/23/2022 11:56 AM [facility] Albumin 3.8 3.4 - 5.0 g/dL 04/23/2022 11:56 AM [facility] Bilirubin Total 0.4 0.2 - 1.2 mg/dL 04/23/2022 11:56 AM [facility] Alkaline Phosphatase 112 40 - 150 U/L 04/23/2022 11:56 AM [facility] ALT 62(H) 5 - 55 U/L 04/23/2022 11:56 AM [facility] AST 31 5 - 34 U/L 04/23/2022 11:56 AM [facility] Anion Gap 15 8 - 18 04/23/2022 11:56 AM [facility] BUN/Creatinine Ratio 17 7 - 23 04/23/2022 11:56 AM [facility] Osmolality Calculated 284 270 - 300 mOsm/kg 04/23/2022 11:56 AM [facility] Albumin/Globulin Ratio 1.2 1.1 - 2.3 04/23/2022 11:56 AM GUIDE DOG INSTRUCTOR [facility] eGFR by CKD-EPI >90 >=90 mL/min/1.7 3 m2 04/23/2022 11:56 AM [facility] Blood BLOOD SPECIMEN / Unknown Lab Venipuncture / Unknown 04/23/2022 11:02 AM GUIDE DOG INSTRUCTOR 04/23/2022 11:31 AM GUIDE DOG INSTRUCTOR Blair Le MD LAB - CHEMISTRY ORDERABLES Final Result [facility] [address] [place] [address], [facility] [phone] from Last 3 Months or Most Recently Relevant to Health Maintenance Insurance MEDICAID - OUT OF STATE MEDICAID - [place] UHC MANAGED MEDICARE ADV Care Teams Air Traffic Control Specialist Center Relationship Specialty Start Date End Date Kevin Meyer PA [address] [place] [address] PCP - General 06/28/21
[2024-09-22 09:50] LABS: INR 0.9; Partial Thromboplastin Time 23.5 Sec (23.9-30.70); Prothrombin Time 10.3 Seconds (9.50-12.1)
[2024-09-22 09:51] LABS: Alanine Aminotransferase 24 U/L (6-50); Albumin Level 4.1 g/dL (3.5-5.1); Alkaline Phosphatase 93 U/L (38-126); Anion Gap 2 mmol/L (4-12); Aspartate Amino Transferase 26 U/L (17-59); Bilirubin,Total 0.5 mg/dL (0.2-1.3); Blood Urea Nitrogen 11 mg/dL (9-20); Calcium 9.1 mg/dL (8.4-10.2); Carbon Dioxide 27 mmol/L (22-30); Chloride 109 mmol/L (98-107); Estimated CRCL calculation 76 ml/min; Estimated Glomerular Filt Rate > 60; Glucose 103 mg/dL (65-110); Magnesium 1.9 mg/dL (1.6-2.3); Osmolality Calculated 285 mOsm/kg (285-295); Potassium 3.6 mmol/L (3.4-5.0); Sodium 138 mmol/L (137-145); Total Protein 6.8 g/dL (6.3-8.2)
[2024-09-22 10:03] LABS: NT Pro B Type Natriuretic Pept < 20 pg/mL (19.9-100); Troponin I < 0.012 ng/mL (0.000-0.034)
[2024-09-22 10:04] LABS: Add Urine Microscopic? NO; Appearance Urine Clear (Clear); Glucose Urine UA Negative (Negative); Leukocyte Esterase Ur Negative LEU/UL (Negative); Nitrate Urine Negative (Negative); Specific Grav Ur <= 1.005 (1.010-1.020)
[2024-09-22 10:11] LABS: Influenza A QL RT-PCR Negative (Negative); Influenza B QL RT-PCR Negative (Negative); RSV RNA, RT-PCR Negative (Negative); SARS-CoV-2 RNA PCR Negative (Negative)
--- NOTE | 2024-09-22 11:43 | ED_ITS ---
HPI - Syncope General Chief Complaint: Syncope Stated Complaint: syncope Source: patient Mode of arrival: ambulatory Limitations: no limitations History of Present Illness HPI narrative: this is a 59-year-old male with a history of carcinoid tumor followed by Oncology that presents with a syncopal episode has had these in the past with no bladder or bowel dysfunction no tongue biting no postictal event. Patient has been having shortness of breath is a vapor and has a history of hypertension. The patient has cough and mild congestion with no fever chills no chest pain no abdominal pain no dysuria or hematuria no flank pain. MD complaint: loss of consciousness Onset (ago): hour(s) -: second(s) Related Data Home Medications ?Medication ?Instructions ?Recorded ?Confirmed ?Last Taken ?Type levothyroxine 75 mcg tablet 75 mcg PO DAILY 10/01/19 02/10/24 Unknown History (Synthroid) venlafaxine 150 mg 150 mg PO DAILY 11/15/21 02/10/24 08/14/23 09:10 History capsule,extended release 24 hr (Effexor XR) lorazepam 1 mg capsule,extended 1 mg PO DAILY PRN Anxiety 02/27/22 02/10/24 Unknown History release 24 hr (Loreev XR) prazosin 1 mg capsule 2 mg PO HS 02/27/22 02/10/24 Unknown History B Complex-Vitamin B12 240 mcg PO PRN PRN as needed. 07/30/23 02/10/24 Unknown History lamotrigine 100 mg tablet 200 mg PO DAILY 07/30/23 02/10/24 Unknown History (Lamictal) pregabalin 75 mg capsule (Lyrica) 75 mg PO BID 07/30/23 02/10/24 Unknown History rosuvastatin 20 mg tablet (Crestor) 20 mg PO DAILY 07/30/23 02/10/24 Unknown History amlodipine 10 mg tablet 10 mg PO DAILY 08/14/23 02/10/24 08/14/23 09:00 History cholecalciferol (vitamin D3) 125 125 mcg PO DAILY 08/14/23 02/10/24 Unknown History mcg (5,000 unit) capsule diazepam 2 mg tablet 1 mg PO HS PRN Anxiety 08/14/23 02/10/24 Unknown History epinephrine 0.3 mg/0.3 mL 0.3 mg IM ONCE PRN Anaphylaxis 08/14/23 02/10/24 Unknown History injection syringe naloxone 4 mg/actuation nasal spray 4 mg intranasal Q2-3M PRN overdose 08/14/23 02/10/24 Unknown History octreotide acetate 100 mcg/mL (1 100 mcg subcut MONTHLY 08/14/23 02/10/24 Unknown History mL) injection syringe olanzapine 5 mg tablet (Zyprexa) 5 mg PO HS 08/14/23 02/10/24 Unknown History ondansetron HCl 4 mg tablet 4 mg PO Q6H PRN Nausea 08/14/23 02/10/24 Unknown History orphenadrine citrate 100 mg 100 mg PO Q12H PRN Muscle Spasm 08/14/23 02/10/24 Unknown History tablet,extended release oxycodone 5 mg tablet 10 mg PO Q4H PRN Pain 08/14/23 02/10/24 08/14/23 09:25 History polyethylene glycol 3350 17 gram 17 g PO BID 08/14/23 02/10/24 08/14/23 09:00 History oral powder packet (Miralax) rimegepant 75 mg disintegrating 75 mg PO DAILY PRN Migraine 08/14/23 02/10/24 Unknown History tablet Headache cariprazine 3 mg capsule (Vraylar) 3 mg PO Q24H 08/12/24 08/12/24 Unknown History cyanocobalamin (vitamin B-12) 1,000 mcg PO DAILY 08/12/24 08/12/24 Unknown History 1,000 mcg tablet meloxicam 7.5 mg tablet 7.5 mg PO DAILY 08/12/24 08/12/24 Unknown History modafinil 100 mg tablet 100 mg PO DAILY 08/12/24 08/12/24 Unknown History Allergies Allergy/AdvReac Type Severity Reaction Status Date / Time sulfamethoxazole (From Allergy Hives Verified 09/22/24 09:12 Sept) trimethoprim (From ) Allergy Hives Verified 09/22/24 09:12 acetaminophen (From Tylenol) AdvReac Other Verified 09/22/24 09:12 ibuprofen AdvReac Unknown Verified 09/22/24 09:12 Bumble Bee Allergy Severe Anaphylactic Uncoded 09/22/24 09:12 Shock Review of Systems 2 Review of Systems: All systems reviewed & are unremarkable except as noted in HPI and below PMFSH Past Medical History Medical History Liver metastases Liver lesion Hypertension Colon cancer Status post partial colectomy. Bipolar disorder Hypothyroidism Chronic prescription opiate use Chronic pain syndrome Hyperlipidemia COVID-19 (04/24/21) Cervical radiculopathy Depression Surgical History Surgical History History of nasal surgery History of tonsillectomy History of partial colectomy History of inguinal hernia repair Status post left foot surgery History of cervical spinal surgery History of repair of left rotator cuff History of arthroscopy of right shoulder History of appendectomy Family History Family History Other Cardiac arrest Cirrhosis of liver Social History Social History Social History: The patient lives in [place] with his and family. They have 2 children who are in her 20s and they have Severo foster son who is [id number]. History of alcohol and drug use, clean for 12 years. 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 he has 20% disability from the [employer]. he served in the [employer] during [employer]. He designates his , Amy Herman, as his surrogate decision maker. Code status: Full code. Smoking packs per day: 0.5 Smoking cigarettes per day: 10.0 Years smoked: 13 Smoking pack-years: 6.50 Smoking status: Former smoker Tobacco type: cigarettes Alcohol intake: never Substance use: never Last use: 05/20/21 Do You Feel Safe in your Home?: Yes Lack of Transportation: No Lack of Food: Never True Current Housing: I Have Housing Concerned About Future Housing: No Difficulty Paying Gas/Electric Bills: No Difficulty Paying for Meds: No Currently Unemployed: No Education: Decline to Answer Difficulty w/ Childcare or Family Care: No Spiritual care concerns: No Exam 2 Const: General: no acute distress Nutritional Appearance: well nourished Orientation/consciousness: patient oriented x3 Limitations: no limitations HENMT: Head: normal to inspection Eyes: Conjunctivae: conjunctivae normal Pupils: Equal, round and reactive pupils present Neck: Neck: normal visual inspection and no lymphadenopathy Chest: Chest palpation & inspection: normal inspection of the chest Resp: Effort & Inspection: normal respiratory effort Auscultation: clear to auscultation bilaterally Cardio: Rate: regular rate Rhythm: regular rhythm GI: GI Palp: Yes Soft to palpation Auscultation: normal bowel sounds : General: Yes bladder normal to palpation Urinary Catheter: Urinary Catheter: patent and draining Back/Spine/Pelvis: Back: no CVA tenderness Skin: General skin exam: normal color Rashes: no rashes Neuro: General: patient oriented x3, moves all extremities, no meningeal signs and no focal motor deficits Extrem: General: normal to inspection Psych: Mental Status: mental status grossly normal Course Course Emergency Course: Patient had DuoNebs x2 had x-ray of the chest performed which shows no acute and abnormalities, CT scan performed of the brain with no acute abnormalities. The patient had EKG that was performed that showed a normal sinus rhythm labs performed with no acute abnormalities. Patient had an elevated D-dimer and subsequently a CTA of the chest was performed which shows no pulmonary embolism. Patient Maki monitor and his blood pressure 138/78 with a heart rate of 58 and O2 sats of 97% on room air. Vital Signs Vital signs: Vital Signs Temperature 36.3 C L 09/22/24 09:01 Pulse Rate 56 L 09/22/24 09:01 Respiratory Rate 20 09/22/24 09:01 Blood Pressure 121/79 09/22/24 09:01 Pulse Oximetry 97 09/22/24 09:01 Oxygen Delivery Room Air 09/22/24 09:01 Temperature 36.3 C L 09/22/24 09:01 Pulse Rate 58 L 09/22/24 11:41 Respiratory Rate 20 09/22/24 11:41 Blood Pressure 138/78 09/22/24 09:31 Pulse Oximetry 97 09/22/24 11:41 Oxygen Delivery Room Air 09/22/24 09:05 MDM - Syncope Lab Data 09/22/24 09:30 09/22/24 09:30 Labs: Lab Results 09/22/24 09/22/24 09/22/24 Range/Units 09:18 09:19 09:30 WBC 8.2 (4.8-10.8) K/mm3 RBC 4.60 L (4.70-6.10) M/mm3 Hgb 14.4 (14.0-18.0) g/dL Hct 43.0 (40.0-54.0) % MCV 93.5 (78.0-102.0) fL MCH 31.3 H (27.0-31.0) pg MCHC 33.5 (32-36) g/dL RDW 13.6 (11.6-14.4) % Plt Count 241 (150-420) K/mm3 MPV 11.1 H (8.7-11.0) fl Immature Gran % (Auto) 0.4 H (0.0-0.0) % Neut % (Auto) 68.5 (50.0-70.0) % Lymph % (Auto) 20.1 (18.0-42.0) % [place] % (Auto) 9.4 (2.0-11.0) % Eos % (Auto) 1.1 (1.0-6.0) % Baso % (Auto) 0.5 (0.0-1.0) % Lymph # (Auto) 1.64 (1.10-4.50) K/mm3 [place] # (Auto) 0.77 (0.10-0.90) K/mm3 Eos # (Auto) 0.09 (0.02-0.50) K/mm3 Baso # (Auto) 0.04 (0.00-0.10) K/mm3 Abs Immat Gran (auto) 0.03 H (0.00-0.00) K/mm3 Absolute Neuts (auto) 5.60 (1.70-7.20) K/mm3 Absolute Nucleated RBC 0.00 (0.00-0.00) K/mm3 Nucleated RBC % 0.0 (0-0.0) % PT 10.3 (9.50-12.1) Seconds INR 0.9 APTT 23.5 L (23.9-30.70) Sec D-Dimer 1.36 H (0.19-0.50) mg/L Sodium 138 (137-145) mmol/L Potassium 3.6 (3.4-5.0) mmol/L Chloride 109 H (98-107) mmol/L Carbon Dioxide 27 (22-30) mmol/L Anion Gap 2 L (4-12) mmol/L BUN 11 (9-20) mg/dL Creatinine 1.03 (0.7-1.3) mg/dL Estim Creat Clear Calc 76 ml/min Estimated GFR > 60 (59 - ) Glucose 103 (65-110) mg/dL POC Capillary Glucose 107 H (65-105) mg/dl Calculated Osmolality 285 (285-295) mOsm/kg Lactic Acid 1.2 (0.4-2.0) mmol/L Calcium 9.1 (8.4-10.2) mg/dL Magnesium 1.9 (1.6-2.3) mg/dL Total Bilirubin 0.5 (0.2-1.3) mg/dL AST 26 (17-59) U/L ALT 24 (6-50) U/L Alkaline Phosphatase 93 (38-126) U/L Troponin I < 0.012 (0.000-0.034) ng/mL NT-Pro-B Natriuret Pep < 20 (19.9-100) pg/mL Total Protein 6.8 (6.3-8.2) g/dL Albumin 4.1 (3.5-5.1) g/dL Urine Color Light yellow (Yellow) Urine Appearance Clear (Clear) Urine pH 6.5 (5.0-8.0) Ur Specific [place] <= 1.005 L (1.010-1.020) Urine Protein Negative (Negative) Urine Glucose (UA) Negative (Negative) Urine Ketones Negative (Negative) Ur Blood (Man) Negative (Negative) Urine Nitrate Negative (Negative) Urine Bilirubin Negative (Negative) Urine Urobilinogen 0.2 (0.2-1.0) mg/dL Leukocyte Esterase Rfl Negative (Negative) [place]/UL Influenza A (RT-PCR) Negative (Negative) Influenza B (RT-PCR) Negative (Negative) RSV (RT-PCR) Negative (Negative) SARS-CoV-2 RNA (RT-PCR) Negative (Negative) Critical Care Time Critical Care Time Critical Care Time: No Discharge Plan Discharge Clinical Impression: Acute upper respiratory infection, Vasovagal syndrome Patient Disposition: Home Condition: Stable Instructions: Antibiotic Form, Upper Respiratory Infection (ED), Near Syncope (ED) Additional Instructions: advised patient to take medication as prescribed and to follow with primary care physician within 1 week for further evaluation and treatment. Patient Language: Bolivian Prescriptions: New levofloxacin 500 mg tablet 500 mg PO DAILY Qty: 7 0RF ProAir RespiClick 90 mcg/actuation aerosol powdr breath activated 2 inh inhalation QID PRN (Reason: shortness of breath or wheezing) Qty: 1 0RF prednisone 20 mg tablet 20 mg PO DAILY 5 Days Qty: 5 0RF No Action levothyroxine [Synthroid] 75 mcg tablet 75 mcg PO DAILY venlafaxine [Effexor XR] 150 mg capsule,extended release 24hr 150 mg PO DAILY B Complex-Vitamin B12 240 mcg PO PRN PRN (Reason: as needed.) Patient Comments: . 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,000% lamotrigine [Lamictal] 100 mg tablet 200 mg PO DAILY rosuvastatin [Crestor] 20 mg tablet 20 mg PO DAILY pregabalin [Lyrica] 75 mg capsule 75 mg PO BID naloxone 4 mg/actuation [place],Non-Aerosol 4 mg INTRANASAL Q2-3M PRN (Reason: overdose) Rx Instructions: spray 1 dose into ONE nostril; alternate nostrils w each dose until help arrives oxycodone 5 mg Tablet 10 mg PO Q4H PRN (Reason: Pain) olanzapine [Zyprexa] 5 mg Tablet 5 mg PO HS orphenadrine citrate 100 mg Tablet Extended Release 100 mg PO Q12H PRN (Reason: Muscle Spasm) polyethylene glycol 3350 [Miralax] 17 gram Powder In Packet 17 g PO BID cholecalciferol (vitamin D3) 125 mcg (5,000 unit) Capsule 125 mcg PO DAILY amlodipine 10 mg Tablet 10 mg PO DAILY Patient Comments: ............. epinephrine 0.3 mg/0.3 mL Syringe 0.3 mg IM ONCE PRN (Reason: Anaphylaxis) Rx Instructions: as a single dose; may repeat once octreotide acetate 100 mcg/mL (1 mL) Syringe 100 mcg SUBCUT MONTHLY Rx Instructions: every 30 days ondansetron HCl 4 mg Tablet 4 mg PO Q6H PRN (Reason: Nausea) rimegepant 75 mg Tablet,Disintegrating 75 mg PO DAILY PRN (Reason: Migraine Headache) diazepam 2 mg Tablet 1 mg PO HS PRN (Reason: Anxiety) albuterol sulfate [Ventolin HFA] 90 mcg/actuation HFA aerosol inhaler 2 puff inhalation QID PRN (Reason: shortness of breath or wheezing) Qty: 8.5 0RF Patient Comments: . Loreev XR 1 mg capsule,extended release 24hr 1 mg PO DAILY PRN (Reason: Anxiety) prazosin 1 mg capsule 2 mg PO HS Vraylar 3 mg capsule 3 mg PO Q24H cyanocobalamin (vitamin B-12) 1,000 mcg tablet 1,000 mcg PO DAILY meloxicam 7.5 mg tablet 7.5 mg PO DAILY modafinil 100 mg tablet 100 mg PO DAILY Follow-up/Referrals: Betsy,EFRAIN Smith [Primary Care Provider] -
== END 2024-09-22 12:10 | disposition home or self-care (01) ==
PROVIDERS: Emergency Provider Emergency Medicine; PCP Physician Assistant
DX: J06.9 Acute upper respiratory infection, unspecified (principal); R55 Syncope and collapse; I10 Essential (primary) hypertension; E78.5 Hyperlipidemia, unspecified; Z87.891 Personal history of nicotine dependence; Z85.038 Personal history of other malignant neoplasm of large intestine; Z20.822 Contact with and (suspected) exposure to COVID-19
CPT/HCPCS: 36415; 70450; 71045; 71275; 80053; 81003; 82948; 83605; 83735; 83880; 84484; 85025; 85380; 85610; 85730; 87637; 93005; 94640; 96361; 96374; 99284; J2405; J7030; Q9967

== ENCOUNTER 2024-10-04 09:43 | Outpatient (CLI) | payer MEDICARE, MEDICAID, SELFPAY ==
--- NOTE | ~2024-10-04 | CT_ITS ---
CT of the Abdomen and Pelvis: Indication: Ascending colonic tumor Technique: 2.5 mm axial scans were obtained through the abdomen and pelvis following intravenous adm inistration of 100 cc of Omnipaque 350. Dose reduction technique was used on this scan by utilizing a utomated exposure control and iterative reconstruction technique. The dose-length product (DLP) was 6 22.64 mGy-cm. COMPARISON: 12/10/2023 Findings: Scans through the lung bases demonstrate 8mm nodule in the medial left lower lobe, not see n on prior exam (axial image 17) is a 3 mm right middle lobe nodule (axial image 5). There is a 4 mm right lower lobe nodule medially (axial image 18).. The liver, spleen, pancreas, adrenals and left kidney are within normal limits. Nonobstructing right renal stones present, measuring up to 5 mm. Gallbladder absent. No evidence of aortic aneurysm. No l ymphadenopathy. No bowel obstruction or bowel wall thickening. There is no evidence to suggest acute appendicitis. Images through the pelvis were performed. Urinary bladder unremarkable. No pelvic mass seen. No ascit es. Impression: New 8 mm medial left lower lobe nodule, indeterminate. Metastatic lesion is not excluded given histor y. Additional tiny right pulmonary nodules, as above, indeterminate. No evidence of active malignancy or metastatic disease in the abdomen or pelvis otherwise. Nonobstructing right nephrolithiasis. Reviewed, dictated and finalized at location . Impression: New 8 mm medial left lower lobe nodule, indeterminate. Metastatic lesion is not excluded given history. Additional tiny right pulmonary nodules, as above, ind eterminate. No evidence of active malignancy or metastatic disease in the abdomen or pelvis otherwise. Nonobstructing right nephrolithiasis.
--- OUTSIDE RECORDS SUMMARY | 2024-10-04 09:58 | XMS_ITS ---
Author Organization Unknown Address [address] [place], [place] [phone] Phone Care Team Providers Care Outdoor Adventure Instructor Name Role Phone LIBRA AMINA Attending Unavailable [...] DIFF - Collect Date/T nadia: 08/05/2023 10:34 [facility] ID: [id number] [place], [place], [id number] LOINC: 99886-1 Test Value Unit Reference Range Code Code System Flag WBC 7.5 10^3uL L=4.8 H=10.8 RBC 4.53 10^6uL L=4.60 H=6.20 L HEMOGLOBIN 14.1 g/dL L=14.0 H=18.0 718-7 LOINC HEMATOCRIT 41.5 VOL% L=42.0 H=52.0 4544-3 LOINC L MCV 91.6 fL L=80.0 H=94.0 MCH 31.1 pg L=27.0 H=32.0 MCHC 34.0 g/dL L=32.0 H=36.0 PLATELETS 242 10^3uL L=100 H=400 70229-8 LOINC RDW 13.1 % L=11.7 H=15.5 %GRAN 64.6 % L=40.0 H=70.0 16252-0 LOINC %LYMPH 18.1 % L=20.0 H=45.0 736-9 LOINC L %MONO 11.6 % L=2.0 H=10.0 25981-9 LOINC H %EOS 3.6 % L=0.0 H=6.0 713-8 LOINC %BASO 0.8 % L=0.0 H=3.0 706-2 LOINC #NEUT 4.9 10^3uL L=1.9 H=7.6 22731-8 LOINC #LYMPH 1.4 10^3uL L=0.9 H=4.9 63828-4 LOINC #MONO 0.9 10^3uL L=0.1 H=0.9 52074-2 LOINC #EOS 0.3 10^3uL L=0.0 H=0.6 712-0 LOINC #BASO 0.06 10^3uL L=0.00 H=0.10 16047-3 LOINC #IM GRANS 0.1 10^3uL L=0.0 H=7.0 48745-1 LOINC %IM GRANS 1.3 % L=0.0 H=5.0 43507-6 LOINC %NRB 0.0 L=0.0 H=0.2 31720-5 LOINC #NRB 0.000 L=0.000 H=0.012 18678-4 LOINC MANUAL DIFF NOT INDICATED RBC MORPH NOT INDICATED HGB A1C -GLYCOHEMOGLOBIN - C ollect Date/Time: 08/05/2023 10:34 [facility] ID: [id number] [place], [id number] LOINC: 4548-4 Test Value Unit Reference Range Code Code System Flag HGBA1C 5.9 % 4548-4 LOINC LIVER PROFILE - Collect Date /Time: 08/05/2023 10:34 [facility] ID: [id number] [place], [id number] LOINC: 34144-3 Test Value Unit Reference Range Code Code System Flag ALT 84 U/L L=9 H=72 1742-6 LOINC H AST 71 U/L L=15 H=46 1920-8 LOINC H ALKALINE PHOS 101 U/L L=38 H=126 6768-6 LOINC TOTAL PROTEIN 7.9 g/L L=6.3 H=8.2 2885-2 LOINC TOTAL BILI 0.5 mg/dL L=0.2 H=1.3 1974-2 LOINC DIRECT BILI 0.0 mg/dL L=0.0 H=0.3 1967-7 LOINC INDIRECT BILI 0.30 mg/dL L=0.00 H=1.10 1970-1 LOINC ALBUMIN 4.4 G/dL L=3.5 H=5.0 175-7 LOINC LIPID PANEL - Collect Date/T nadia: 08/05/2023 10:34 [facility] ID: [id number] [place], [id number] LOINC: 32936-9 Test Value Unit Reference Range Code Code System Flag FASTING NO CHOLESTEROL 256 mg/dL L=0 H=200 2092-3 LOINC H TRIGLYCERIDE 175 mg/dL L=0 H=150 2571-8 LOINC H HDL 52 mg/dL L=40 H=60 2084-9 LOINC LDL 156 mg/dL 2088-1 LOINC SEROTONIN - Collect Date/Lux e: 08/05/2023 10:34 [facility] ID: [id number] [place], [id number] LOINC: 14920-2 Test Value Unit Reference Range Code Code System Flag Serotonin, Serum 18 31-207 76061-4 LOINC L BASIC METABOLIC PANEL - Jairo ect Date/Time: 08/05/2023 10:34 [facility] ID: [id number] [place], [id number] LOINC: 41274-5 Test Value Unit Reference Range Code Code System Flag FASTING NO BUN 11 mg/dL L=7 H=20 3094-0 LOINC CREATININE 1.20 mg/dL L=0.66 H=1.25 2160-0 LOINC GLUCOSE 113 mg/dL L=74 H=106 2345-7 LOINC H CALCIUM 9.3 mg/dL L=8.3 H=10.5 88946-5 LOINC SODIUM 132 mmol/L L=132 H=144 2951-2 LOINC POTASSIUM 3.9 mmol/L L=3.5 H=5.1 2823-3 LOINC CHLORIDE 94 mmol/L L=98 H=107 2075-0 LOINC L CO2 31.0 mmol/L L=22.0 H=30.0 2028-9 LOINC H ANION GAP 11 L=10 H=20 11804-1 LOINC BUN/CREAT 9.2 3097-3 LOINC AGE 58 02959-6 LOINC eGFR NON-AFR 66 ml/min eGFR AFR AMER 80 ml/min Social History Type Status Start Date End Date Code Code Syst em Smoking History Never smoker (Never Smoked) 510973988 SNOMED CT Sex Male Hospital Discharge Instructions [...]
--- OUTSIDE RECORDS SUMMARY | 2024-10-04 09:58 | XMS_ITS ---
Author Organization Unknown Address [address] [place] [phone] Phone Care Team Providers Care Insurance Appraiser Name Role Phone ROBBIE CEJA Attending Unavailable [...] em Smoking History Never smoker (Never Smoked) [id number] SNOMED CT Sex Male Hospital Discharge Instructions [...]
--- OUTSIDE RECORDS SUMMARY | 2024-10-04 09:58 | XMS_ITS | Clinical Summary ---
Author Organization [facility] Facility Address [address] [address] Care Team Providers Care Director [facility] Name Role Phone Kevin Meyer Primary Care Provider [phone] Allergies Active Allergy Reactions Criticality Noted Date [...] 2 - PCV) 03/08/2016 03/08/2015 Influenza Vaccine (#1) 2024 9, 01/03/2019, 01/28/2018, Additional history exists Pneumococcal Vaccine: Peds ( 0 to 5 Years) and At-Risk Patients (6 to 49 Years) Discontinued 03/08/2015 Insurance Medicare Medicaid [place] Care Teams Director Community Center Relationship Specialty Start Date End Date Kevin Meyer PA [address] [place] [address] PCP - General Internal Medicine 10/20/18
--- OUTSIDE RECORDS SUMMARY | 2024-10-04 09:59 | XMS_ITS | Data Portability ---
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 Hypothyroidism 61600188 E03.0 Malignant tumor of colon 644392064 C18.9 [id number] Oscar Felipe MD [facility] [address] [place] [address] 07/17/2021 11:18:38 07/17/2021 14:57:25 Syncope and collapse 130727725 R55 [id number] Annamaria Meyer PA-C [facility] [address] [place] [address] 10/29/2021 11:03:41 10/29/2021 12:23:04 Primary insomnia 4620865 F51.01 [id number] Annamaria Meyer PA-C [facility] [address] [place] [address] 02/03/2022 11:01:12 02/03/2022 11:40:04 Right side sciatica 3448294985 86700 M54.31 Pain of ri ght knee joint 0099392361 47021 M25.561 Overweight 408190260 E66 .3 [id number] Annamaria Meyer PA-C [facility] [address] [place] [address] 03/10/2022 10:55:54 03/10/2022 11:15:22 Restless legs 59545743 G25.81 [id number] Annamaria Meyer PA-C [facility] [address] [place] [address] 04/10/2022 14:51:50 04/14/2022 11:47:28 Cervical radiculopathy 07208647 M54.12 Lumbar radiculopathy 128 302239 M54.16 [id number] SHAYY JOHNSON MD [facility] (MANAGER OF TRAINING AND DEVELOPMENT) [address] [place] [address] 05/09/2022 12:24:02 05/13/2022 13:29:22 Essential hypertension 68317936 I10 - BP elevated today- Follow up with PCP for further monitoring and management Acute uppe r respiratory infection 45155433 J06.9 - Discussed supportive care at home with emphasis on maintainin g adequate hydration- Provided anticipato ry guidance for when to call office and/or seek emergency treatment- f/u COVID, flu test- Follow up as needed Body mass index 25-29 - overweight 779210779 Z68.28 - Discussed healthy behaviors, including eating a balanced diet and incorporat ing regular physical activity into day Abnormal i nvoluntary movement 620869147 R25.9 - Recommende d patient follow up with his neurologis t about right toe spasms/inv oluntary movements [id number] Annamaria Meyer PA-C [facility] [address] [place] [address] 08/19/2022 15:06:47 08/20/2022 14:33:06 Cervical radiculopathy 27207611 M54.12 Essential hypertension 10480381 I10 Pain of ri ght knee joint 4431697994 42303 M25.718 [id number] Oscar Felipe MD [facility] [address] [place] [address] 09/30/2022 14:05:16 10/01/2022 10:18:00 Pain of toe of right foot 1776831617 18712 M79.974 [id number] Annamaria Meyer PA-C [facility] [address] [place] [address] 01/12/2023 11:17:11 01/19/2023 14:24:39 Essential hypertension 91274688 I10 Disorder o f pericardium 86117608 I31.8 Overweight 253763309 E66 .3 [id number] Annamaria Meyer PA-C [facility] [address] [place] [address] 02/16/2023 11:12:33 02/17/2023 15:31:56 Pain of left elbow joint 8626888201 5730658 M25.522 increase to 800 tid ibuprophen 1401248 Annamaria Meyer PA-C [facility] [address] [place] [address] 05/19/2023 11:08:06 05/20/2023 09:18:15 Allergic reaction to wasp sting 166658525 T63.461A Abnormal weight gain 161 544850 R63.5 Excessive thirst 3956472 7 R63.1 Overweight 344103587 E66 .3 Mixed anxi ety and depressive disorder 392991031 F41.8 [id number] Oscar Felipe MD [facility] [address] [place] [address] 07/14/2023 10:37:00 07/23/2023 11:41:03 Cough 81635173 R05.9 Lumbar radiculopathy 128 298607 M54.16 Pre-surger y evaluation 491295744 Z01.818 Essential hypertension 77668435 I10 Mixed anxi ety and depressive disorder 527973292 F41.8 cont current meds [id number] Annamaria Meyer PA-C [facility] [address] [place] [address] 12/23/2023 10:45:46 12/24/2023 14:25:59 Nasal congestion 26368881 R09.81 Edema of l ower extremity 886635060 R60.0 Bilious vomiting 3442958 2 R11.14 Overweight 909937554 E66 .3 Essential hypertension 59827177 I10 [id number] Oscar Felipe MD [facility] [address] [place] [address] 05/02/2024 15:00:28 05/09/2024 10:11:53 Overweight 660411316 E66.3 External hemorrhoids 239 15569 K64.4 Upper resp iratory infection 97581805 J00 Influenza caused by Influenza A virus 574925101 J09.X2 [id number] Oscar Felipe MD [facility] [address] [place] [address] 06/29/2024 10:27:54 06/29/2024 15:52:34 Active or passive immunization 737741763 Z23 [id number] Oscar Felipe MD [facility] [address] [place] [address] 08/22/2024 16:52:11 08/23/2024 10:52:34 Primary hypothyroidism 45862216 E03.9 Overweight in adulthood with body mass index of 25 or more but less than 30 314713909 E66.3 Z68.26 [id number] Oscar Felipe MD [facility] [address] [place] [address] 09/13/2024 18:55:52 09/14/2024 16:14:24 Essential hypertension 91168548 I10 controlled Hypothyroidism 02059295 E03.0 Overweight in adulthood with body mass index of 25 or more but less than 30 032090004 E66.3 Z68.25 Health Concerns Section Related Observation LastModified by Organization Detai ls LastModified Time None Recorded Concern Status LastModified by Organization Details LastModified Time None Recorded Advance Directives Directive None Recorded Payers Insurance Date Sequence Insurance Name Policy Number Policy Beavers Covered Member ID Beavers Member ID Guarantor Name 05/02/2024 2 [place] Baljeet Herman [id number] Baljeet Herman 08/21/2024 [place] [facility] Baljeet Herman [id number] Baljeet Herman 05/02/[address] [facility] (MEDICARE REPLACEMENT HMO) Baljeet Herman [id number] Baljeet Herman 08/21/2024 2 [place] WHEN MEDICARE OR MEDICARE REPLACEMENT PRIMARY) Baljeet Herman [id number] Baljeet Herman 05/02/2024 1 [place] Baljeet Herman [id number] Baljeet Herman 05/02/2024 [place] [facility] - FQ Baljeet Solares Virgil [id number] Baljeet Virgil 05/02/2024 1 [employer] (MEDICARE REPLACEMENT/ADVA NTAGE - HMO) Baljeet Virgil [id number] Baljeet Virgil 05/02/2024 [place] - [facility] - FQ Baljeet Solares Virgil [id number] Baljeet Virgil 09/10/2024 1 [facility] (MEDICARE REPLACEMENT/ADVA NTAGE - HMO) [id number] Baljeet Solares Virgil [id number] Baljeet Herman Notes Date Note Type Note Provider Name and Address Organization Details Recorded Time 12/23/2023 text/html surgery in July o n his back...since then has had leg swelling off/on...also vomiting dry heaves then lots of yellow... Annamaria Meyer PA-C Attn: Accounting, [address], [place], [address] [place] [address], [facility] - [place] 12/23/2023 11:16:28 05/02/2024 text/html cough hard to breathe 3 days..... high fever 101 also weak and achy also hemorrhoids bleeding.. Rivka Jamison MA [facility], [place] - [facility] 05/03/2024 14:20:29 08/22/2024 text/html discuss thyroid levels... 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 Annamaria Meyer PA-C Attn: Accounting[address] [place], [address], [place] 09/13/2024 19:46:12
--- OUTSIDE RECORDS SUMMARY | 2024-10-04 09:59 | XMS_ITS | Encounter Summary ---
Author Organization [facility] Address [address] [facility] [address] [place] [address] Phone Care Team Providers Care Powerhouse Attendant Name Role Phone Kevin Meyer Primary Care Provider [phone] Kevin Meyer Primary Care Provider [phone] Kevin Meyer Unavailable [phone] Benja Esteban MD Unavailable [phone] Samy Bravo MD PhD Unavailable [phone] Vivian Horn RN Unavailable [phone] Encounter Details Date Type Department Care Team (Late st Contact Info) Description 05/20/2017 Orders Only [facility] ProviderEstefania MD [address] [place] [address] Social History Tobacco Use Types Packs/Day Years Used Date Smoking Tobacco: Former Smokeless Tobacco: Never Alcohol Use Standard Drinks/Week Comments No 0 (1 standard drink = 0.6 oz pur e alcohol) Sex and Gender Information Value Date Recorded Sex Assigned at Not on file Legal Sex Male 3:25 AM ORDER BOOKER Gender Identity Male 03/26/2021 11:53 AM ORDER BOOKER Sexual Orientation Choose not to disclose 2021 11:53 AM ORDER BOOKER documented as of this encounter Plan of Treatment Not on file documented as of this encounter Procedures Procedure Name Priority Date/Time Associated Diagnosis Comments DISCHARGE LABORATORY CUMULATIVE REPORT 05/20/2017 12:00 AM ORDER BOOKER documented in this encounter Results * DISCHARGE LABORATORY CUMULATIVE REPORT (05/20/2017 12:00 AM ORDER BOOKER) Narrative 05/20/2017 12:00 AM ORDER BOOKER Ordered by an unspecified provider. us Historical Provider LAB BLOOD ORDERABLES Elena l Result documented in this encounter Visit Diagnoses Not on filedocumented in this encounter Care Teams Powerhouse Attendant Relationship Specialty Start Date End Date Kevin Meyer PA [address] [place] [address] PCP - General 08/13/16 03/22/19 Kevin Meyer PA [address] [place] [address] PCP - General 03/23/19 Kevin Meyer PA [address] [place] [address] 03/23/19 Benja Esteban MD [address] [place] [address] Medical Oncologist/Auto Air Conditioning Mechanic Hematology and Oncology 02/28/20 Samy Bravo MD PhD [address] [place] [address] Resident Psychiatry 05/31/20 09/17/20 Vivian Horn, RN [address] [address] SHOP Outpatient Oncology Rep Specialist 02/01/21 02/28/21 documented as of this encounter
--- OUTSIDE RECORDS SUMMARY | 2024-10-04 09:59 | XMS_ITS | Encounter Summary ---
Author Organization [facility] Address [facility] [place] [address] Care Team Providers Care Thermal Cutter Helper Name Role Phone Kevin Meyer Primary Care Provider [phone] Encounter Details Date Type Department Care Team (Latest Contact Info) Description 09/21/2024 [employer] Message Enc [facility] Medical Group Multispecialty Care - [facility] [address] [facility], [address] [place] [address] Pari, [facility] Provider Pre-Op Instructions/Educat ion Social History Tobacco [...] from your doctor or pharmacy? Never 08/10/2023 [facility] Utilities Answer Date Recorded In [...] and heating? Not hard at all 08/10/2023 [facility] - [...] No 08/10/2023 Housing Stability Vital Sign Answer Conenr e Recorded In the last 12 months, was t here a time when you were not able to pay the mortgage or rent on time? No 08/10/2023 In the past 12 months, how m any times have you moved where you were living? 1 08/10/2023 At any time in the past [address] [facility], were you homeless or living in a longterm (including now)? No 08/10/2023 Sex and Gender [...] PM CDT Appointment [facility] [place] [address] Mando Rojas MD [address] [facility] [place] [address] 11/30/2024 7:30 AM CDT Hospital Encounter [facility] [place] [place] [address] Mando Rojas MD 3 [facility] [place] [address] 11/30/2024 7:30 AM CDT - 11/30/2024 9:[address] [place] [address] Mando Rojas MD 3 [facility] [place] [address] REMOVAL OF BILATERAL LUMBAR 5- SACRAL 1 POSTERIOR SPINAL HARDWARE 12/14/2024 1:40 PM CDT Office Visit [facility] Medical Group Multispecialty Care - [facility] [address], [address] [place] [address] Jennifer Huang APRN 3 [facility] [address] [place] [address] Scheduled Procedures Name Priority Associated Diagnoses Date/Ti [...] documented as of this encounter Care Teams Thermal Cutter Helper Relationship Specialty Start Date End Date Kevin Meyer PA PCP - General PHYSICIAN DRY PAN OPERATOR 05/28/21 documented as of this encounter
--- OUTSIDE RECORDS SUMMARY | 2024-10-04 09:59 | XMS_ITS ---
Author Organization Unknown Address [address] [place], [place] [id number] Phone Care Team Providers Care Vertica Architect Name Role Phone TONYA Forrest Attending Unavailable [...] DIFF - Collect Date/T nadia: 01/26/2023 15:30 [facility] ID: [id number] [address] [place], [place], [id number] LOINC: 63681-0 Test Value Unit Reference Range Code Code System Flag WBC 10.1 10^3uL L=4.8 H=10.8 RBC 4.22 10^6uL L=4.60 H=6.20 L HEMOGLOBIN 13.5 g/dL L=14.0 H=18.0 718-7 LOINC L HEMATOCRIT 39.3 VOL% L=42.0 H=52.0 4544-3 LOINC L MCV 93.1 fL L=80.0 H=94.0 MCH 32.0 pg L=27.0 H=32.0 MCHC 34.4 g/dL L=32.0 H=36.0 PLATELETS 227 10^3uL L=100 H=400 85585-0 LOINC RDW 12.7 % L=11.7 H=15.5 %GRAN 72.5 % L=40.0 H=70.0 00731-9 LOINC H %LYMPH 12.1 % L=20.0 H=45.0 736-9 LOINC L %MONO 11.1 % L=2.0 H=10.0 41674-1 LOINC H %EOS 3.2 % L=0.0 H=6.0 713-8 LOINC %BASO 0.5 % L=0.0 H=3.0 706-2 LOINC #NEUT 7.3 10^3uL L=1.9 H=7.6 71459-0 LOINC #LYMPH 1.2 10^3uL L=0.9 H=4.9 35886-1 LOINC #MONO 1.1 10^3uL L=0.1 H=0.9 41067-7 LOINC H #EOS 0.3 10^3uL L=0.0 H=0.6 712-0 LOINC #BASO 0.05 10^3uL L=0.00 H=0.10 71889-8 LOINC #IM GRANS 0.1 10^3uL L=0.0 H=7.0 32999-5 LOINC %IM GRANS 0.6 % L=0.0 H=5.0 53338-6 LOINC %NRB 0.0 L=0.0 H=0.2 59788-0 LOINC #NRB 0.000 L=0.000 H=0.012 22628-9 LOINC MANUAL DIFF NOT INDICATED RBC MORPH NOT INDICATED COMPREHENSIVE METABOLIC PANE L - Collect Date/Time: 01/26/2023 15:30 [facility] ID: [id number] [address] [place], [place], [id number] LOINC: 96807-0 Test Value Unit Reference Range Code Code [...] 2028-9 LOINC ANION GAP 13 L=10 H=20 47186-4 LOINC OSMOLALITY 271 mOs/kG L=280 H=296 41307-2 LOINC L BUN/CREAT 9.2 3097-3 LOINC CALCIUM 9.4 mg/dL L=8.3 H=10.5 53526-0 LOINC AST 29 U/L L=15 H=46 1920-8 LOINC ALT 33 U/L L=9 H=72 1742-6 LOINC ALKALINE PHOS 115 U/L L=38 H=126 6768-6 LOINC TOTAL BILI 0.6 mg/dL L=0.2 H=1.3 1975-2 LOINC ALBUMIN 4.5 G/dL L=3.5 H=5.0 1751-7 LOINC TOTAL PROTEIN 8.1 g/L L=6.3 H=8.2 2885-2 LOINC A/G RATIO 1.3 04690-8 LOINC AGE 57 [address]-1 LOINC eGFR NON-AFR 67 ml/min eGFR AFR AMER 81 ml/min URINALYSIS w/Microscopy/C&S if indicated - Collect Date/Time: 01/26/2023 14:34 [facility] ID: [id number] [address] [place] [address], [id number] LOINC: 15179-1 Test Value Unit Reference Range Code Code System Flag UR SOURCE UNKNOWN 76143-5 LOINC COLOR LT YELLOW YELLOW 5778-6 LOINC CLARITY CLEAR CLEAR 46034-8 LOINC SPEC GRAVITY <=1.005 1.000-1.030 5811-5 LOINC PH 5.5 5.0 - 6.5 5803-2 LOINC LEUK EST NEGATIVE NEGATIVE 5799-2 LOINC NITRATE NEGATIVE NEGATIVE PROTEIN NEGATIVE NEGATIVE 5804-0 LOINC GLUCOSE NEGATIVE NEGATIVE 25480-6 LOINC KETONES NEGATIVE NEGATIVE 88113-0 LOINC UROBILINOGEN 0.2 NEGATIVE 5818-0 LOINC BILIRUBIN NEGATIVE NEGATIVE 25225-4 LOINC BLOOD NEGATIVE NEGATIVE 70754-0 LOINC WBC 0-2 0 - 2 08730-2 LOINC RBC 0-2 0 - 2 34684-1 LOINC EPITHELIAL RARE RARE-FEW 27785-7 LOINC BACTERIA NONE SEEN NONE SEEN 22164-9 LOINC MUCUS NONE SEEN NONE SEEN 8247-9 LOINC YEAST NOT PRESENT NOT PRESENT 12390-6 LOINC CASTS NONE SEEN 42239-6 LOINC CRYSTALS NONE SEEN 63810-2 LOINC CULTURE? NO 8251-1 LOINC DIAGNOSIS N/A CT ABD/PEL W/ CONTRAST - Com pleted: 01/26/2023 16:32 LOINC: 85586-2 EXAM DESCRIPTION: CT ABD/PEL W/ CONTRAST REASON [...] for this examination. CONTRAST TYPE/DOSE: 100 of [id number] injected via lac COMPARISON: None available on [...] Wetzel M.D., D.O. MW: RAMIRO Report ID: [id number] Reading Location: [id number] Social History Type Status Start Date End Date Code Code Syst em Smoking History Never smoker (Never Smoked) 976435971 SNOMED CT Sex Male Hospital Discharge Instructions [...]
--- OUTSIDE RECORDS SUMMARY | 2024-10-04 09:59 | XMS_ITS | Encounter Summary ---
Author Organization [facility] Address [address] [place] [place] [address] Phone Care Team Providers Care String Winding Machine Operator Name Role Phone Kevin Meyer Primary Care Provider [phone] Amy Allen APRN, FURNACE ROOM SUPERVISOR Unavailable [phone] Dawit MARISCAL MD, Courtney Unavailable [phone] Brad Bone MD Unavailable [phone] Vanda Jimenez APRN, FURNACE ROOM SUPERVISOR Unavailable Min Mario MD Unavailable Reason for Visit * Reason Comments Medication Refill Encounter Details Date Type Department Care Team (Late st Contact Info) Description 06/22/2024 Refill [facility] - G[facility]enter[facility] [address] [place] [address] Vanda Jimenez APRN, FURNACE ROOM SUPERVISOR [address] [place] [address] Medication Refill Social History Tobacco Use Types [...] PM CDT Medication refilled and signed per [facility] chronic medication standing order for pediatric and adult patients. documented in this encounter Plan of Treatment Upcoming Encounters Date Type Department Care Team (Late st Contact Info) Description 02/02/2025 10:15 AM TIRE MOLD ENGRAVER Office Visit [facility] [address] [place] [address] Min Mario MD [address] [address] documented as of this encounter Visit Diagnoses Not on filedocumented in this encounter Care Teams String Winding Machine Operator Relationship Specialty Start Date End Date Kevin Meyer PAC [address] [place] [address] PCP - General Physician Orchestra Director 07/15/17 Amy Allen APRN, FURNACE ROOM SUPERVISOR [address] [facility] [address] [place] [address] Nurse Practitioner Cardiology 01/27/23 09/29/24 Merlene Pastor III, MD [address] [place] [address] Consulting Physician Urology 10/28/21 Brad Bone MD [address] [place] [address] Consulting Physician Neurology 09/04/22 Vanda Jimenez APRN, FURNACE ROOM SUPERVISOR [address] [place] [address] Nurse Practitioner Advanced Practice Nurse 07/31/22 Min Mario MD #[address] [address] Consulting Physician Urology 12/17/23 documented as of this encounter
--- OUTSIDE RECORDS SUMMARY | 2024-10-04 09:59 | XMS_ITS | Clinical Summary ---
Author Organization [facility] Address [address] [place] [address] Phone Care Team Providers Care Shop Tech Name Role Phone Kevin Meyer Primary Care Provider [phone] Dawit MARISCAL MD, Courtney Unavailable [phone] Brad Bone MD Unavailable [phone] Vanda Jimenez APRN, BIOMATHEMATICIAN Unavailable Min Mario MD Unavailable Allergies Active [...] Tablet by mouth every morning. 90 Tablet 2 Active EPINEPHrine (EPIPEN) 0.3 MG/0.3ML Solution Auto-injector [...] Description 07/21/2024 9:30 AM CDT Procedure Visit [facility] [address] [place] [address] Min Mario MD Kidney stone (Primary Dx); Urinary tract infection with hematuria, site unspecified; Acute cystitis with hematuria; Prostate cancer screening Discharge Disposition: Discharged to home or Selfcare 07/21/2024 Telephone [facility] [address] [place] [address] Anne Marie Osborne RN Hypertension 07/19/2024 Travel 07/15/2024 8:27 AM CDT - 07/15/2024 11:59 PM CDT Hospital Encounter [facility] [address] [place] [address] Min Mario MD Discharge Disposition: Discharged to home or Selfcare 07/13/2024 Travel from Last 3 Months Immunizations Immunization Administration Dates Next Due H1N1 Flu, Unspecified Formulation 06/04/2009 Influenza Vaccine less than 3 yrs 03/08/2015 Influenza Vaccine, MDCK,quad rivalent, pres free 01/09/2022 Influenza Vaccine, Quadrivalent, PF 03/10/2021,01/03/2019,01/28/2018,2013 Influenza Vaccine,unspecifie d Formulation 01/03/2020,04/29/2013,02/05/2012,2010,01/22/2010,12/13/2008,12/24/2006 Influenza, Injectable, [...] st Contact Info) Description 02/02/2025 10:15 AM SURVEILLANCE SENSOR OPERATOR Office Visit [facility] [address] [place] [phone] Min Mario MD [address] [address] Health Maintenance Due Date Last Done Comments Hepatitis C Virus (HCV) Screening 1965 SARS-COV-2 Immunization (#1) 06/17/1971 Hepatitis B Immunization (1 of 3 - 19+ 3-dose series) 1985 Cologuard 06/17/2011 Immunochemical Fecal Occult Blood 06/17/2011 Pneumococcal Immunization (50+ years) (2 of 2 - PCV) 03/08/2016 03/08/2015 PSA Discussion 2021 Influenza Immunization (#1) 11/21/202412/22, 05/28/2021, 01/09/2020, Additional history exists Colonoscopy 08/06/2025 [...] POCT CREATININE Routine 07/15/2024 9:02 AM CDT from Last 3 Months Results * (ABNORMAL) POCT UA AUTOMATED W/O MICRO (07/21/2024 9:58 AM CDT) POC UA SPECIFIC GRAVITY 1.010 URINE PH [...] the procedure well. us Min Mario MD NM - SURGERY Final Result * CT UROGRAPHY [...] Brandon Smith M.D. MZ: CAROLYN Report ID: [id number] Reading Location: [id number] Procedure Note Brandon Smith MD - 07/21/2024 [...] Electronically signed by Brandon Smith M.D. MZ: MZ Report ID: [id number] Reading Location: [id number] IMPRESSION: No acute findings in the abdomen or pelvis. Bilateral nonobstructing renal stones. Low-attenuation lesions in the kidneys are unchanged since 12/10/2023 and are likely cysts with hemorrhagic or proteinaceous products. Attention on follow-up us Min Mario MD IMG CT ORDERABLES Final Result * POCT Creatinine (07/15/2024 9:02 AM CDT) CREATININE - POCT 1.2 0.6 - 1.3 mg/dL 07/15/2024 9:04 AM CDT [facility] Blood 07/15/2024 9:02 AM CDT 07/15/2024 9:04 AM CDT us None Provider POINT OF CARE TESTING Final Resu lt [facility] [address] [place] [address] from Last 3 Months Insurance MEDICAID [place] MEDICARE C [facility] MEDICAID [place] Advance Directives * Full Code [...] all measures to stabilize patient. Care Teams Shop Tech Relationship Specialty Start Date End Date Kevin Meyer, TABITHA [address] [place] [address] PCP - General Physician Motor Coach Chauffeur 07/15/17 Merlene Pastor III, MD [address] [place] [address] Consulting Physician Urology 10/28/21 Brad Bone MD [address] [place] [address] Consulting Physician Neurology 09/04/22 Vanda Jimenez APRN, BIOMATHEMATICIAN [address] [place] [address] Nurse Practitioner Advanced Practice Nurse 07/31/22 Min Mario MD [address] [address] Consulting Physician Urology 12/17/23
--- OUTSIDE RECORDS SUMMARY | 2024-10-04 09:59 | XMS_ITS | Encounter Summary ---
Author Organization [facility] Address [facility] [place] [address] Care Team Providers Care Peanut Grader Name Role Phone None, Provider Primary Care Provider Kevin Hassan Primary Care Provider [phone] Encounter Details Date Type Department Care Team (Late st Contact Info) Description 08/28/2018 Abstract [facility] [address] [place] [address] , Generic Conversion, Social History Tobacco Use [...] PM CDT Appointment [facility] [place] [address] Mando Rojas MD [address] [place], [place] [address] 11/30/2024 7:30 AM CDT Hospital Encounter [facility] [place] [address] Mando Rojas MD 3 [place] [address] 11/30/2024 7:30 AM CDT - 11/30/2024 9:32 AM CDT Surgery [facility] [place] [address] Mando Rojas MD [address] [place] [address] REMOVAL OF BILATERAL LUMBAR 5- SACRAL 1 POSTERIOR SPINAL HARDWARE 12/14/2024 1:40 PM CDT Office Visit [facility] Multispecialty Care - [facility] [address] [place] [address] Jennifer Huang APRN [address] [facility] [address] [place] [address] Scheduled Procedures Name Priority Associated Diagnoses Date/Ti [...] Rule Out 05/25/2021 05/25/2021 05/25/2021 9:39 PM ESTERS AND EMULSIFIERS SUPERVISOR COVID-19 Rule Out 03/03/2023 03/03/2023 03/04/2023 7:03 PM ESTERS AND EMULSIFIERS SUPERVISOR documented as of this encounter Care Teams Peanut Grader Relationship Specialty Start Date End Date None, Provider, PCP - General 01/10/20 05/27/21 Kevin Meyer PA PCP - General PHYSICIAN LUGGAGE REPAIRER 05/28/21 documented as of this encounter
--- OUTSIDE RECORDS SUMMARY | 2024-10-04 09:59 | XMS_ITS | Clinical Summary ---
Author Organization [facility] Address [address] [place] [address] Care Team Providers Care Performing Artist Name Role Phone Kevin Meyer Primary Care Provider [phone] Source Comments [facility],non-owned Affiliates and Associated Physician Practices is amultiple site organization consisting of ambulatory clinics and hospital sitesin [place] and [place]. This disclosure is being madepursuant to the Care Everywhere program and may not contain all information available regarding this patient. Last updated 17.[facility] Allergies Active Allergy Reactions Criticality Noted Date [...] on file Legal Sex Male 4:24 AM DUCTFIXING PLUMBER Gender Identity Not on file Sexual Orientation Not on file Last Filed Vital Signs Vital Sign Reading Time Taken Comments Blood Pressure 134/79 04/23/2022 1:34 PM DUCTFIXING PLUMBER Pulse 62 04/23/2022 1:34 PM DUCTFIXING PLUMBER Temperature 36.4 C (97.5 F) 04/23/2022 1:34 PM DUCTFIXING PLUMBER Respiratory Rate 18 10/15/2021 6:45 PM CDT Oxygen Saturation 100% 04/23/2022 1:34 PM DUCTFIXING PLUMBER Inhaled Oxygen Concentration - - Weight 94.3 kg (208 lb) 04/23/2022 1:34 PM DUCTFIXING PLUMBER Height 182.9 cm (6') 10/15/2021 7:20 AM [...] MEDICARE AWV CALENDAR YEAR 2024 INFLUENZA VACCINE (#1) 2024 2, 01/09/2020, 01/03/2020, Additional history exists SCREENING FOR [...] COMPREHENSIVE METABOLIC PANEL Routine 04/23/2022 11:02 AM DUCTFIXING PLUMBER Neuroendocrine carcinoma metastatic to liver from Last 3 Months or Most Recently Relevant to Health Maintenance Results * (ABNORMAL) COMPREHENSIVE METABOLIC PANEL (04/23/2022 11:02 AM [facility]) BUN 14 7 - 26 mg/dL 04/23/2022 11:56 AM [facility] Creatinine 0.81 0.71 - 1.16 mg/dL 04/23/2022 11:56 AM [facility] Sodium 136 136 - 145 mmol/L 04/23/2022 11:56 AM [facility] Potassium 3.9 3.5 - 4.5 mmol/L 04/23/2022 11:56 AM [facility] Chloride 102 98 - 107 mmol/L 04/23/2022 11:56 AM [facility] CO2 23 22 - 29 mmol/L 04/23/2022 11:56 AM [facility] Glucose 117(H) 70 - 115 mg/dL 04/23/2022 11:56 AM [facility] Calcium 9.1 8.4 - 10.2 mg/dL 04/23/2022 11:56 AM [facility] Protein Total 7.0 6.0 - 8.3 g/dL 04/23/2022 11:56 AM [facility] Albumin 3.8 3.4 - 5.0 g/dL 04/23/2022 11:56 AM [facility] Bilirubin Total 0.4 0.2 - 1.2 mg/dL 04/23/2022 11:56 AM [facility] Alkaline Phosphatase 112 40 - 150 U/L 04/23/2022 11:56 AM [facility] ALT 62(H) 5 - 55 U/L 04/23/2022 11:56 AM [facility] AST 31 5 - 34 U/L 04/23/2022 11:56 AM [facility] Anion Gap 15 8 - 18 04/23/2022 11:56 AM [facility] BUN/Creatinine Ratio 17 7 - 23 04/23/2022 11:56 AM [facility] Osmolality Calculated 284 270 - 300 mOsm/kg 04/23/2022 11:56 AM [facility] Albumin/Globulin Ratio 1.2 1.1 - 2.3 04/23/2022 11:56 AM DUCTFIXING PLUMBER [facility] eGFR by CKD-EPI >90 >=90 mL/min/1.7 3 m2 04/23/2022 11:56 AM [facility] Blood BLOOD SPECIMEN / Unknown Lab Venipuncture / Unknown 04/23/2022 11:02 AM DUCTFIXING PLUMBER 04/23/2022 11:31 AM DUCTFIXING PLUMBER Blair Le MD LAB - CHEMISTRY ORDERABLES Final Result [facility] [address] [place] [address], [facility] [phone] from Last 3 Months or Most Recently Relevant to Health Maintenance Insurance MEDICAID - OUT OF STATE MEDICAID - [place] UHC MANAGED MEDICARE ADV Care Teams Performing Artist Relationship Specialty Start Date End Date Kevin Meyer PA [address] [place] [address] PCP - General 06/28/21
--- OUTSIDE RECORDS SUMMARY | 2024-10-04 09:59 | XMS_ITS | Clinical Summary ---
Author Organization [facility] n[facility] Address [address] [address] Care Team Providers Care Hospitality Team Member Name Role Phone Kevin Meyer Primary Care Provider [phone] Allergies Active Allergy Reactions Criticality Noted Date [...] daily. 024 Active naloxone (NARCAN) 4 mg/spray [place], Non-Aerosol EMERGENCY USE ONLY: Administer 1 spray [...] needed for Other (See Comment) (cough). Active cyanocobalami n 1,000 mcg Tablet Take 1 tablet by mouth every other day. 45 Tablet 1 025 Active potassium CHLORIDE (K-DUR,KLOR-C ON M20) 20 mEq Extended Release tablet TAKE 1 TABLET BY MOUTH EVERY DAY 90 Tablet 1 025 Active oxyCODONE (ROXICODONE) 5 mg tabletIndicat ions:Malignan t carcinoid tumor of ascending colon (CMS/HCC) Take 1 Tablet (5 mg) by mouth every 6 hours as needed for Pain. Max Daily Amount: 20 mg 48 Tablet 025 Active potassium chloride (KLOR-CON M20) 20 [...] but unfortunately it is not offered at [facility] and he will have to go to [facility]. 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) 09/21/2024 Orders Only [facility] Oncology and Hematology - [address] [place] [address] Jorden Serrano MD 09/16/2024 Orders Only [facility] Oncology and Hematology - [address] [place] [address] Jorden Serrano MD 09/13/2024 External Device Data [facility] ABSTRACTION Provider, Abstract 09/10/2024 Refill [facility] Oncology and Hematology - [address] Jorden Serrano MD 09/01/2024 Refill [facility] Oncology and Hematology - [address] [place] [address] Jorden Serrano MD 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) 08/19/2024 Orders Only [facility] Oncology and Hematology - [address] [place] [address] Jorden Serrano MD 08/16/2024 Orders Only [facility] Oncology and Hematology - [address] [place] [address] Jorden Serrano MD 08/15/2024 Orders Only [facility] Oncology and Hematology - [address] [place] [address] Jorden Serrano MD Benign hypertension; 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) 08/10/2024 External Device Data [facility] ABSTRACTION Provider, Abstract 08/09/2024 External Device Data [facility] ABSTRACTION Provider, Abstract 08/02/2024 Refill [facility] Oncology and Hematology - [address] [place] [address] Jorden Serrano MD 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) 08/01/2024 Orders Only [facility] Oncology and Hematology - [address] [place] [address] Jorden Serrano MD Benign hypertension; 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) 07/18/2024 Orders Only [facility] Oncology and Hematology - [address] [place] [address] Jorden Serrano MD Benign hypertension; 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) 07/07/2024 Orders Only [facility] Oncology and Hematology [facility] [address] [place] [address] Jorden Serrano MD 07/05/2024 2:15 PM CDT Office Visit [facility] Oncology and Hematology [facility] [address] [place] [address] Jorden Serrano MD 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) (Primary Dx) from Last 3 Months Family History Medical [...] Description 10/11/2024 2:15 PM CDT Office Visit [facility] Oncology and Hematology [facility] [address] [place] [address] Jorden Serrano MD [address] [facility] [address] [place] [address] Health Maintenance Due Date Last Done Comments Pre-Diabetes and Diabetes Screening 1965 HEPATITIS B VACCINES (1 of 3 - 19+ 3-dose series) 1985 [place]) Preventative Visit/Annual Wellness Visit 03/23/2024 INFLUENZA VACCINE (#1) 2024 , 05/28/2021, 05/28/2021, Additional history exists DTAP/TDAP/TD VACCINES [...] resultswithin the time period is included. Blood us Jorden Serrano MD CHEMISTRY ORDERABLES [...] Relevant to Health Maintenance Insurance [place]ICAID [place] [facility] [id number] Care Teams Hospitality Team Member Relationship Specialty Start Date End Date Kevin Meyer PA [address] [place] [address] PCP - General Physician Director Of Women'S Services 05/31/21
--- OUTSIDE RECORDS SUMMARY | 2024-10-04 09:59 | XMS_ITS | Encounter Summary ---
Author Organization [facility] Address [address] [place] [address] Care Team Providers Care Social Studies Teacher Name Role Phone Kevin Meyer Primary Care Provider [phone] Kevin Meyer Unavailable [phone] Benja Esteban MD Unavailable [phone] Samy Bravo MD PhD Unavailable [phone] Vivian Horn RN Unavailable [phone] Encounter Details Date Type Department Care Team (Late st Contact Info) Description 09/04/2020 Telephone [facility] [address] [place] [address] Dorothy Case, RT Social History [...] declined 04/03/2020 How often do you attend hindu or advent serv ices? Patient declined 04/03/2020 Do you belong to any clubs o r organizations such as hindu groups, unions, fraternal or athletic groups, or [...] or slept in a jail (including now)? 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 MACHINE TECH Gender Identity Male 03/26/2021 11:53 AM MACHINE TECH Sexual Orientation Choose not to disclose 2021 11:53 AM MACHINE TECH Occupation Industry Job Start Date Job End Date disabled Not on file Not on file Not on file documented as of this encounter Plan of Treatment Not on file documented as of this encounter Visit Diagnoses Not on filedocumented in this encounter Care Teams Social Studies Teacher Relationship Specialty Start Date End Date Kevin Meyer PA [address] [place] [address] PCP - General 03/23/19 Kevin Meyer PA [address] [place] [address] 03/23/19 Benja Esteban MD [address] [place] [address] Medical Oncologist/Shingle Weaver Hematology and Oncology 02/28/20 Samy Bravo MD PhD [address] [place] [address] Resident Psychiatry 05/31/20 09/17/20 Vivian Horn, RN [address] [address] [facility]OP Outpatient Physical Therapist Aide 02/01/21 02/28/21 documented as of this encounter
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
--- OUTSIDE RECORDS SUMMARY | 2024-10-04 09:59 | XMS_ITS ---
Author Organization Unknown Address [address] [place] [address] [phone] Phone Care Team Providers Care Billing Analyst Name Role Phone BUSINESS SERVICES MANAGER PHYLLIS Attending Unavailable SUYAPA YIN Primary Unavailable [...] normal in course and morphology. There is knnw-[id number] olecranon bursitis with a dorsal soft tissue [...] Paul Valencia M.D. MF: CLEMENTE Report ID: [id number] Reading Location: [id number] THIS IS AN ELECTRONICALLY VERIFIED FINAL REPORT 02/26/2023 10:28 AM ? Addendum Electronically signed by Paul Valencia M.D. MF: CLEMENTE Report ID: [id number] Reading Location: [id number] Social History Type Status Start Date End Date Code Code Syst em Smoking History Never smoker (Never Smoked) [id number] SNOMED CT Sex Male Hospital Discharge Instructions [...]
--- OUTSIDE RECORDS SUMMARY | 2024-10-04 10:00 | XMS_ITS | Clinical Summary ---
Author Organization 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 Phone Kevin Meyer Primary Care Provider [phone] Allergies Active Allergy Reactions Criticality Noted Date [...] fusion 08/10/2023 Other osteomyelitis of left ulna (CMS/[facility] HHS/HC C) 03/13/2023 Complex tear of medial menis cus of right knee as current injury, subsequent encounter 10/08/2022 Unspecified open wound of left elbow, subsequent encounter 08/11/2022 Septic olecranon bursitis of left elbow 06/24/19 23 Syncope 05/25/2021 Encounters Date Type Department Care Team Description 09/30/2024 Telephone [facility] - [address], [address] [place] [phone] Mando Rojas MD Medication Information (Aspirin) 09/22/2024 Telephone [facility] - [address], [address] [place] [address] Mando Rojas MD Prior Authorization 09/21/2024 Telephone [facility] - [address], [address] [place] [address] Mando Rojas MD Pre-op Surgery/Cosmetic (Pre-Op Instructions/Educati on) 09/21/2024 [employer] Message Enc [address], [address] [place] [address] [facility] Provider Pre-Op Instructions/Educati on 09/20/2024 Telephone [facility] - [facility] [address] [facility], [address] [place] [address] Mando Rojas MD Schedule Surgery 09/07/2024 [facility] [address] [facility], [address] [place] [address] Mando Rojas MD Schedule Surgery 09/01/2024 2:20 PM CDT [facility] [address] [facility], [address] [place] [address] Mando Rojas MD Follow Up 09/01/2024 12:37 PM CDT - 09/01/2024 11:59 PM CDT Hospital Encounter [facility] [address] [place] [address] Mando Rojas MD Discharge Disposition: Home or Self Care (Routine Discharge) 09/01/2024 Travel 08/09/2024 [facility] [address] [facility], [address] [place] [address] Mando Rojas MD Concerns 07/28/2024 2:40 PM CDT - 07/28/2024 3:00 PM CDT Surgery [facility] Inter[facility] [place] [address] [id number] Daniela Henderson MD INJECTION TRIGGER POINT - LEFT HARDWARE BLOCKS L5-S1 07/28/2024 1:56 PM CDT - 07/28/2024 3:13 PM CDT Hospital Encounter [facility] [place] [address] [id number] Daniela Henderson MD Discharge Disposition: Home or Self Care (Routine Discharge) 07/28/2024 Travel 07/26/2024 Telephone [facility] [place] [address] [id number] Elizabeth Bonilla, RN Follow Up Call 07/26/2024 Telephone [facility] [place] [address] [id number] Elizabeth Bonilla, RN Question 07/18/2024 Telephone [facility] [place] [address] [id number] Buffy Argueta RN Follow Up (/) from Last 3 Months Immunizations Immunization Administration [...] from your doctor or pharmacy? Never 08/10/[address] [facility] Utilities Answer Date Recorded In [...] and heating? Not hard at all 08/10/2023 [facility] ional [facility] - Occupational Stress [...] any time in the past 12 m [facility], were you homeless or living in a fpc (including now)? No 08/10/2023 Sex and Gender [...] CDT Appointment [facility] [address] Mando Rojas MD 3 [facility] [place] [address] 11/30/2024 7:30 AM CDT Hospital Encounter [facility] [place] [address] Mando Rojas MD 3 [place] [address] 11/30/2024 7:30 AM CDT - 11/30/2024 9:32 AM CDT Surgery [facility] [place] [address] Mando Rojas MD 3 [place] [address] REMOVAL OF BILATERAL LUMBAR 5- SACRAL 1 POSTERIOR SPINAL HARDWARE 12/14/2024 1:40 PM CDT Office Visit [facility] Multispecialty Care - [facility] [address] [facility], [address] [place] [address] Jennifer Huang, GAYATHRI [address] [facility] [address] [place] [address] Scheduled Procedures Name Priority Associated Diagnoses Date/Ti [...] - 2023-2 5 season) 2023 PHQ-2 (Physician Three Affiliated) 03/23/2024 DTaP, Tdap and Td Vaccines ( [...] Parker RN Medical Devices Implanted Type Area Carcass Splitter Device Identifier Shelf Expiration Date Model / Serial / Lot Putty Noemy Matrix Dbm/Dbf Bone 3ml - [id number] Implanted:Qty : 1 on 08/10/2023 by Mando Rojas MD at [facility] Bone N/A: Spine Lumbar [employer] [id number] 06/09/2025 [id number] / [id number] / . Putty Noemy Matrix Dbm/Dbf Bone 3ml - [id number] Implanted:Qty : 1 on 08/10/2023 by Mando Rojas MD at [facility] Bone N/A: Spine Lumbar [employer] [id number] 06/18/2025 [id number] / [id number] / . Medtronic Anteralign Spinal System Ls Spacer Implanted:Qty : 1 on 08/10/2023 by Mando Rojas MD at [facility] Cage N/A: Spine Lumbar [employer] [id number] 08/02/2029 [id number] / / [id number] Description:L5-S1 37 Mm Plate Implanted:Qty : 1 on 08/10/2023 by Mando Rojas MD at [facility] Plate N/A: Spine Lumbar [employer] . [id number] / / . 4.75 X 30 Mm Rods Implanted:Qty : 2 on 08/10/2023 by Mando Rojas MD at [facility] Andres N/A: Spine Lumbar [employer] . [id number] / / . 7.5 X 40 Mm Screws Implanted:Qty : 4 on 08/10/2023 by Mando Rojas MD at [facility] Screw N/A: Spine Lumbar [employer] . [id number] / / . 6.5 X 30 Mm Screw Implanted:Qty : 4 on 08/10/2023 by Mando Rojas MD at [facility] Screw N/A: Spine Lumbar [employer] . [id number] / / . Graft Soft Tissue 4x4cm Nushield Allograft - [id number] Implanted:Qty : 1 on 08/10/2023 by Mando Rojas MD at [facility] Tissue N/A: Spine Lumbar [employer] 01/20/2028 [id number] / [id number] / Voyager Set Screws Implanted:Qty : 4 on 08/10/2023 by Mando Rojas MD at [facility] N/A: Spine Lumbar [employer] . [id number] / / . Procedures Procedure Name Priority Date/Time Associated Diagnosis Comments CT LUMB SPINE WO CON Routine 09/01/2024 12:53 PM CDT S/P lumbar spinal fusion Pain from implanted hardware, subsequent encounter INJECTION TRIGGER POINT 07/28/2024 2:51 PM CDT Z98.1 (ICD-10-CM) - S/P lumbar spinal fusion T85.848D (ICD-10-CM) - Pain from implanted hardware, subsequent encounter XR [facility] Today 07/28/2024 1:58 PM CDT from Last 3 Months Results * CT [...] 2:26 PM Narrative 09/08/2024 2:[address] PM [address] [address] [place] LUMB SPINE WO CON: 09/01/2024 12:37 [...] Procedure Note Sandra Maldonado DO - 09/08/[address] [address] [place] LUMB SPINE WO CON: 09/01/2024 12:37 [...] By: Sandra Maldonado DO, 09/08/2024 2:[address] Final Resul t * XR PAIN CLINIC C-ARM (07/28/2024 1:58 PM CDT) Narrative Radiology, Technologist - 07/28/2024 1:58 PM CDT This report does not contain a radiologist's interpretation. Please review associated procedure and/or operative report. 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
--- OUTSIDE RECORDS SUMMARY | 2024-10-04 10:00 | XMS_ITS ---
Author Organization [facility] Address [address] [place] [address] Care Team Providers Care Floor Finisher Name Role Phone Kevin Meyer Primary Care Provider [phone] Kevin Meyer Unavailable [phone] Benja Esteban MD Unavailable [phone] Active Problems Problem Noted Date Diagnosed Date Knee pain 02/13/2021 Malignant neoplasm of colon 02/13/2021 Essential hypertension 01/16/2021 Cervical radiculopathy 01/15/2021 Personal history of other ma lignant neoplasm of large intestine 12/17/2020 Overview (12/17/2020): Added automatically from request for surgery [id number] 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/13/2020 Overview (12/13/2020): Added automatically from request for surgery [id number] Malignant carcinoid tumor of the ileum Stimulant use disorder 05/31/2020 Severe alcohol use disorder 05/31/2020 PTSD (post-traumatic stress disorder) 05/31/2020 Chronic bilateral low back pain without sciatica 04/07/2020 Assessment & Plan (05/04/2020 12:54 PM DRUM REEL CUTTER): - flexeril 10mg TID PRN - [place] 10mg q4 PRN - lidocaine patch daily - avoid IV ketorelac and NSAIDs with starting lithium - heating packs Assessment & Plan (05/03/2020 9:56 AM DRUM REEL CUTTER): - flexeril 10mg TID PRN - [place] 10mg q4 PRN - lidocaine patch daily - avoid IV ketorelac and NSAIDs with starting lithium - heating packs Assessment & Plan (05/02/2020 11:56 AM DRUM REEL CUTTER): - flexeril 10mg TID PRN - [place] 10mg q4 PRN - lidocaine patch daily - avoid IV ketorelac and NSAIDs with starting lithium - heating packs Assessment & Plan (05/01/2020 10:58 AM DRUM REEL CUTTER): - flexeril 10mg TID PRN - [place]CO 10mg q4 PRN - lidocaine patch daily - avoid IV ketorelac and NSAIDs with starting lithium - heating pads Assessment & Plan (04/30/2020 12:17 PM DRUM REEL CUTTER): - flexeril 10mg TID PRN - NORCO 10mg q4 PRN - lidocaine patch daily - avoid IV ketorelac and NSAIDs with starting lithium - heating pads Assessment & Plan (04/28/2020 8:01 AM DRUM REEL CUTTER): - flexeril 10mg TID PRN - NORCO 10mg q4 PRN - lidocaine patch daily - avoid IV ketorelac and NSAIDs with starting lithium - heating pads Assessment & Plan (04/27/2020 8:47 AM DRUM REEL CUTTER): - flexeril 10mg TID PRN - NORCO 10mg q4 PRN - lidocaine patch daily - avoid IV ketorelac and NSAIDs given ADILENE - heating pads Assessment & Plan (04/26/2020 10:11 AM DRUM REEL CUTTER): - flexeril 10mg TID PRN - NORCO 10mg q4 PRN - lidocaine patch daily - avoid IV ketorelac and NSAIDs given ADILENE - heating pads Assessment & Plan (04/25/2020 9:45 AM DRUM REEL CUTTER): - flexeril 10mg TID PRN - NORCO 10mg q4 PRN - lidocaine patch daily - avoid IV ketorelac and NSAIDs given ADILENE - heating pads Assessment & Plan (04/24/2020 9:49 AM DRUM REEL CUTTER): - flexeril 10mg TID PRN - NORCO 10mg q4 PRN - lidocaine patch daily - avoid IV ketorelac and NSAIDs given [place]ILENE - heating pads Assessment & Plan (04/23/2020 10:21 AM DRUM REEL CUTTER): - flexeril 10mg TID PRN - [place] 10mg q4 PRN - lidocaine patch daily - avoid IV ketorelac and NSAIDs given [place]ENE - heating pads Assessment & Plan (04/21/2020 8:38 AM DRUM REEL CUTTER): - flexeril 10mg TID PRN - NOR[place] 10mg q4 PRN - lidocaine patch daily - avoid IV ketorelac and NSAIDs given ADILENE - heating pads Assessment & Plan (04/20/2020 12:05 PM DRUM REEL CUTTER): - flexeril 10mg TID PRN - NORCO 10mg q4 PRN - lidocaine patch daily - avoid IV ketorelac and NSAIDs given ADILENE - heating pads Assessment & Plan (04/19/2020 9:46 AM DRUM REEL CUTTER): - flexeril 10mg TID PRN - NORCO 10mg q4 PRN - lidocaine patch daily - avoid IV ketorelac and NSAIDs given ADILENE - heating pads Assessment & Plan (04/18/2020 10:09 AM DRUM REEL CUTTER): - flexeril 10mg TID PRN - NORCO 10mg q4 PRN - lidocaine patch daily - avoid IV ketorelac and NSAIDs given ADILENE - heating pads Assessment & Plan (04/17/2020 9:31 AM DRUM REEL CUTTER): - flexeril 10mg TID PRN - NORCO 10mg q4 PRN - lidocaine patch daily - avoid IV ketorelac and NSAIDs given ADILENE - heating pads Assessment & Plan (04/16/2020 11:51 AM DRUM REEL CUTTER): - flexeril 10mg TID PRN - NORCO 10mg q4 PRN - lidocaine patch daily - avoid IV ketorelac and NSAIDs given ADILENE - heating pads Assessment & Plan (04/14/2020 9:57 AM DRUM REEL CUTTER): - flexeril 10mg TID PRN - NORCO 10mg q4 PRN - lidocaine patch daily - avoid IV ketorelac and NSAIDs given ADILENE - heating pads Assessment & Plan (04/10/2020 10:04 PM DRUM REEL CUTTER): - flexeril 10mg TID PRN - NORCO 10mg q4 PRN - lidocaine patch daily - avoid IV ketorelac and NSAIDs given [place]ILENE - heating pads Assessment & Plan (04/08/2020 3:23 PM DRUM REEL CUTTER): Patient endorsing exacerbation of chronic back pain [...] -PT Assessment & Plan (04/07/2020 6:23 AM DRUM REEL CUTTER): Patient endorsing exacerbation of chronic back pain and left ankle pain (had previous traumatic injury, required surgery). No other red flag symptoms/signs. Reports he has received injections in the past -Continue PRN norco, flexeril -Lidocaine patch to back -PT Depressive disorder 04/03/2020 Assessment & Plan (05/04/2020 12:54 PM DRUM REEL CUTTER): 54yo M with reported history of bipolar [...] more bright. Plan to discharge patient 05/04. [place] augmentation started with moderate improvements seen in depressive symptoms with ECT, titrated to 300 mg BID with level 0.6. - Continue OLANZapine, 20 mg, oral, Nightly, for depression - Continue Venlafaxine XR 150 mg PO daily, for depression - Continue lithium to 300 mg BID - [place] level 0.6 on 05/03 - This is [...] 05/04 Assessment & Plan (05/03/2020 9:56 AM DRUM REEL CUTTER): 54yo M with reported history of bipolar [...] more bright. Plan to discharge patient 05/04. [place] augmentation started with moderate improvements seen in depressive symptoms with ECT, titrated to 300 mg BID with level 0.6. - Continue OLANZapine, 20 mg, oral, Nightly, for depression - Continue Venlafaxine XR 150 mg PO daily, for depression - Continue lithium to 300 mg BID - [place] level 0.6 on 05/03 - This is [...] permission) Assessment & Plan (05/02/2020 11:56 AM DRUM REEL CUTTER): 54yo M with reported history of bipolar [...] permission) Assessment & Plan (05/01/2020 10:58 AM DRUM REEL CUTTER): 54yo M with reported history of bipolar [...] family Assessment & Plan (04/30/2020 12:17 PM DRUM REEL CUTTER): 54yo M with reported history of bipolar [...] family Assessment & Plan (04/28/2020 8:02 AM DRUM REEL CUTTER): 54yo M with reported history of bipolar [...] depression Assessment & Plan (04/27/2020 8:47 AM DRUM REEL CUTTER): 54yo M with reported history of bipolar [...] depression Assessment & Plan (04/26/2020 10:11 AM DRUM REEL CUTTER): 54yo M with reported history of bipolar [...] depression Assessment & Plan (04/25/2020 9:47 AM DRUM REEL CUTTER): 54yo M with reported history of bipolar [...] depression Assessment & Plan (04/24/2020 9:48 AM DRUM REEL CUTTER): 54yo M with reported history of bipolar [...] depression Assessment & Plan (04/23/2020 10:21 AM DRUM REEL CUTTER): 54yo M with reported history of bipolar [...] depression Assessment & Plan (04/21/2020 8:36 AM DRUM REEL CUTTER): 54yo M with reported history of bipolar [...] depression Assessment & Plan (04/20/2020 12:05 PM DRUM REEL CUTTER): 54yo M with reported history of bipolar [...] depression Assessment & Plan (04/19/2020 9:48 AM DRUM REEL CUTTER): 54yo M with reported history of bipolar [...] depression Assessment & Plan (04/18/2020 10:08 AM DRUM REEL CUTTER): 54yo M with reported history of bipolar [...] depression Assessment & Plan (04/17/2020 9:32 AM DRUM REEL CUTTER): 54yo M with reported history of bipolar [...] depression Assessment & Plan (04/16/2020 11:49 AM DRUM REEL CUTTER): 54yo M with reported history of bipolar [...] depression Assessment & Plan (04/14/2020 9:56 AM DRUM REEL CUTTER): 54yo M with reported history of bipolar [...] depression Assessment & Plan (04/13/2020 9:46 AM DRUM REEL CUTTER): 54yo M with reported history of bipolar [...] for ECT by cardiology, no diagnosis of ischemia/[place], no focal wall movement abnormalities on echo, [...] procedure Assessment & Plan (04/10/2020 3:25 PM DRUM REEL CUTTER): Presented to ED 04/02 with suicidal ideation, depression. Initially admitted to psychiatry for medication adjustment, received ECT x1 04/06 -Continue current meds: lexapro 5, effexor 112.5, olanzapine 20mg QHS - If COVID test is negative, transfer to Psychiatry floor. Assessment & Plan (04/08/2020 3:24 PM DRUM REEL CUTTER): Presented to ED 04/02 with suicidal ideation, depression. Initially admitted to psychiatry for medication adjustment, received ECT x1 04/06 -Psych consulted upon transfer to medicine but are following only peripherally over the weekend -Continue current meds: lexapro 5, effexor 112.5, olanzapine 20mg QHS -Psychiatry recommending discontinuing suicide precautions with 1:1 sitter Assessment & Plan (04/07/2020 6:14 AM DRUM REEL CUTTER): Presented to ED 04/02 with suicidal ideation, depression. Initially admitted to psychiatry for medication adjustment, received ECT x1 04/06 -Psych c/s upon transfer -Continue current meds: lexapro 5, effexor 112.5, olanzapine 20mg QHS -Suicide precautions, 1:1 sitter Assessment & Plan (04/12/2020 9:11 AM DRUM REEL CUTTER): 54yo M with reported history of bipolar [...] for ECT by cardiology, no diagnosis of ischemia/[place], no focal wall movement abnormalities on echo, [...] midnight Assessment & Plan (04/03/2020 2:04 PM DRUM REEL CUTTER): 54yo M with reported history of bipolar [...] disease) Assessment & Plan (05/04/2020 12:54 PM DRUM REEL CUTTER): Patient has a long history of GERD. - Protonix 40 mg daily Assessment & Plan (05/03/2020 9:56 AM DRUM REEL CUTTER): Patient has a long history of GERD. - Protonix 40 mg daily Assessment & Plan (05/02/2020 11:57 AM DRUM REEL CUTTER): Patient has a long history of GERD. - Protonix 40 mg daily Assessment & Plan (05/01/2020 10:58 AM DRUM REEL CUTTER): Patient has a long history of GERD. - Protonix 40 mg daily Assessment & Plan (04/30/2020 12:17 PM DRUM REEL CUTTER): Patient has a long history of GERD. - Protonix 40 mg daily Assessment & Plan (04/28/2020 8:00 AM DRUM REEL CUTTER): Patient has a long history of GERD. -Protonix 40 mg daily Assessment & Plan (04/27/2020 8:47 AM DRUM REEL CUTTER): Patient has a long history of GERD. -Protonix 40 mg daily Assessment & Plan (04/26/2020 10:11 AM DRUM REEL CUTTER): Patient has a long history of GERD. -Protonix 40 mg daily Assessment & Plan (04/25/2020 9:45 AM DRUM REEL CUTTER): Patient has a long history of GERD. -Protonix 40 mg daily Assessment & Plan (04/24/2020 9:48 AM DRUM REEL CUTTER): Patient has a long history of GERD. -Protonix 40 mg daily Assessment & Plan (04/23/2020 10:21 AM DRUM REEL CUTTER): Patient has a long history of GERD. -Protonix 40 mg daily Assessment & Plan (04/21/2020 8:37 AM DRUM REEL CUTTER): Patient has a long history of GERD. -Protonix 40 mg daily Assessment & Plan (04/20/2020 12:05 PM DRUM REEL CUTTER): Patient has a long history of GERD. -Protonix 40 mg daily Assessment & Plan (04/19/2020 9:46 AM DRUM REEL CUTTER): Patient has a long history of GERD. -Protonix 40 mg daily Assessment & Plan (04/18/2020 10:09 AM DRUM REEL CUTTER): Patient has a long history of GERD. -Protonix 40 mg daily Assessment & Plan (04/17/2020 9:31 AM DRUM REEL CUTTER): Patient has a long history of GERD. -Protonix 40 mg daily Assessment & Plan (04/16/2020 11:51 AM DRUM REEL CUTTER): Patient has a long history of GERD. -Protonix 40 mg daily Assessment & Plan (04/14/2020 9:56 AM DRUM REEL CUTTER): Patient has a long history of GERD. -Protonix 40 mg daily Assessment & Plan (04/10/2020 3:25 PM DRUM REEL CUTTER): Continue pantoprazole Assessment & Plan (04/08/2020 3:17 PM DRUM REEL CUTTER): Continue pantoprazole Assessment & Plan (04/07/2020 6:15 AM DRUM REEL CUTTER): Continue pantoprazole Assessment & Plan (04/03/2020 5:54 PM DRUM REEL CUTTER): Patient has a long history of GERD. -Protonix 40 mg daily Hypothyroidism 04/03/2020 Assessment & Plan (05/04/2020 12:54 PM DRUM REEL CUTTER): Patient carries a diagnosis of hypothyroidism for several years. He is currently treated on levothyroxine 75 mcg daily. - Repeat TFT tests in 6 weeks - continue levothyroxine 75 mcg daily Assessment & Plan (05/03/2020 9:56 AM DRUM REEL CUTTER): Patient carries a diagnosis of hypothyroidism for several years. He is currently treated on levothyroxine 75 mcg daily. - Repeat TFT tests in 6 weeks - continue levothyroxine 75 mcg daily Assessment & Plan (05/02/2020 11:57 AM DRUM REEL CUTTER): Patient carries a diagnosis of hyperthyroidism for several years. He is currently treated on levothyroxine 75 mcg daily. - Repeat TFT tests in 6 weeks - continue levothyroxine 75 mcg daily Assessment & Plan (05/01/2020 10:58 AM DRUM REEL CUTTER): Patient carries a diagnosis of hyperthyroidism for several years. He is currently treated on levothyroxine 75 mcg daily. - Repeat TFT tests in 6 weeks - continue levothyroxine 75 mcg daily Assessment & Plan (04/30/2020 12:17 PM DRUM REEL CUTTER): Patient carries a diagnosis of hyperthyroidism for several years. He is currently treated on levothyroxine 75 mcg daily. - Repeat TFT tests in 6 weeks - continue levothyroxine 75 mcg daily Assessment & Plan (04/28/2020 8:00 AM DRUM REEL CUTTER): Patient carries a diagnosis of hyperthyroidism for several years. He is currently treated on levothyroxine 75 mcg daily. - Repeat TFT tests in 6 weeks - continue levothyroxine 75 mcg daily Assessment & Plan (04/27/2020 8:47 AM DRUM REEL CUTTER): Patient carries a diagnosis of hyperthyroidism for several years. He is currently treated on levothyroxine 75 mcg daily. - Repeat TFT tests in 6 weeks - continue levothyroxine 75 mcg daily Assessment & Plan (04/26/2020 10:11 AM DRUM REEL CUTTER): Patient carries a diagnosis of hyperthyroidism for several years. He is currently treated on levothyroxine 75 mcg daily. - Repeat TFT tests in 6 weeks - continue levothyroxine 75 mcg daily Assessment & Plan (04/25/2020 9:45 AM DRUM REEL CUTTER): Patient carries a diagnosis of hyperthyroidism for several years. He is currently treated on levothyroxine 75 mcg daily. - Repeat TFT tests in 6 weeks - continue levothyroxine 75 mcg daily Assessment & Plan (04/24/2020 9:48 AM DRUM REEL CUTTER): Patient carries a diagnosis of hyperthyroidism for several years. He is currently treated on levothyroxine 75 mcg daily. - Repeat TFT tests in 6 weeks - continue levothyroxine 75 mcg daily Assessment & Plan (04/23/2020 10:21 AM DRUM REEL CUTTER): Patient carries a diagnosis of hyperthyroidism for several years. He is currently treated on levothyroxine 75 mcg daily. - Repeat TFT tests in 6 weeks - continue levothyroxine 75 mcg daily Assessment & Plan (04/21/2020 8:37 AM DRUM REEL CUTTER): Patient carries a diagnosis of hyperthyroidism for several years. He is currently treated on levothyroxine 75 mcg daily. - Repeat TFT tests in 6 weeks - continue levothyroxine 75 mcg daily Assessment & Plan (04/20/2020 12:05 PM DRUM REEL CUTTER): Patient carries a diagnosis of hyperthyroidism for several years. He is currently treated on levothyroxine 75 mcg daily. - Repeat TFT tests in 6 weeks - continue levothyroxine 75 mcg daily Assessment & Plan (04/19/2020 9:46 AM DRUM REEL CUTTER): Patient carries a diagnosis of hyperthyroidism for several years. He is currently treated on levothyroxine 75 mcg daily. - Repeat TFT tests in 6 weeks - continue levothyroxine 75 mcg daily Assessment & Plan (04/18/2020 10:09 AM DRUM REEL CUTTER): Patient carries a diagnosis of hyperthyroidism for several years. He is currently treated on levothyroxine 75 mcg daily. - Repeat TFT tests in 6 weeks - continue levothyroxine 75 mcg daily Assessment & Plan (04/17/2020 9:31 AM DRUM REEL CUTTER): Patient carries a diagnosis of hyperthyroidism for several years. He is currently treated on levothyroxine 75 mcg daily. - Repeat TFT tests in 6 weeks - continue levothyroxine 75 mcg daily Assessment & Plan (04/16/2020 11:51 AM DRUM REEL CUTTER): Patient carries a diagnosis of hyperthyroidism for several years. He is currently treated on levothyroxine 75 mcg daily. - Repeat TFT tests in 6 weeks - continue levothyroxine 75 mcg daily Assessment & Plan (04/14/2020 9:57 AM DRUM REEL CUTTER): Patient carries a diagnosis of hyperthyroidism for several years. He is currently treated on levothyroxine 75 mcg daily. - Repeat TFT tests in 6 weeks - continue levothyroxine 75 mcg daily Assessment & Plan (04/10/2020 3:25 PM DRUM REEL CUTTER): 04/02: TSH 6.49, T4 WNL at 1.38 Continue synthroid 75mcg; repeat TFTs 6-8 weeks Assessment & Plan (04/08/2020 3:17 PM DRUM REEL CUTTER): 04/02: TSH 6.49, T4 WNL at 1.38 Continue synthroid 75mcg; repeat TFTs 6-8 weeks Assessment & Plan (04/07/2020 6:16 AM DRUM REEL CUTTER): 04/02: TSH 6.49, T4 WNL at 1.38 Continue synthroid 75mcg; repeat TFTs 6-8 weeks Assessment & Plan (04/10/2020 9:35 PM DRUM REEL CUTTER): Patient carries a diagnosis of hyperthyroidism for several years. He is currently treated on levothyroxine 75 mcg daily. - Repeat TFT tests in 6 weeks - continue levothyroxine 75 mcg daily Hyperlipemia 04/03/2020 Assessment & Plan (05/04/2020 12:55 PM DRUM REEL CUTTER): Has a stated history of hyperlipidemia has been stably treated with atorvastatin 40 mg daily for many years. Patient's LDL low on lipid panel. Notable elevated triglycerides but not fasting sample. - atorvastatin 40 mg daily - fenofibrate 145mg daily Assessment & Plan (05/03/2020 9:56 AM DRUM REEL CUTTER): Has a stated history of hyperlipidemia has been stably treated with atorvastatin 40 mg daily for many years. Patient's LDL low on lipid panel. Notable elevated triglycerides but not fasting sample. - atorvastatin 40 mg daily - fenofibrate 145mg daily Assessment & Plan (05/02/2020 11:57 AM DRUM REEL CUTTER): Has a stated history of hyperlipidemia has been stably treated with atorvastatin 40 mg daily for many years. Patient's LDL low on lipid panel. Notable elevated triglycerides but not fasting sample. - atorvastatin 40 mg daily - fenofibrate 145mg daily Assessment & Plan (05/01/2020 10:58 AM DRUM REEL CUTTER): Has a stated history of hyperlipidemia has been stably treated with atorvastatin 40 mg daily for many years. Patient's LDL low on lipid panel. Notable elevated triglycerides but not fasting sample. - atorvastatin 40 mg daily - tricor 145mg daily Assessment & Plan (04/30/2020 12:17 PM DRUM REEL CUTTER): Has a stated history of hyperlipidemia has been stably treated with atorvastatin 40 mg daily for many years. Patient's LDL low on lipid panel. Notable elevated triglycerides but not fasting sample. - atorvastatin 40 mg daily - tricor 145mg daily Assessment & Plan (04/28/2020 8:01 AM DRUM REEL CUTTER): Has a stated history of hyperlipidemia has been stably treated with atorvastatin 40 mg daily for many years. Patient's LDL low on lipid panel. Notable elevated triglycerides but not fasting sample. - atorvastatin 40 mg daily - tricor 145mg daily Assessment & Plan (04/27/2020 8:47 AM DRUM REEL CUTTER): Has a stated history of hyperlipidemia has been stably treated with atorvastatin 40 mg daily for many years. Patient's LDL low on lipid panel. Notable elevated triglycerides but not fasting sample. - atorvastatin 40 mg daily - tricor 145mg daily Assessment & Plan (04/26/2020 10:11 AM DRUM REEL CUTTER): Has a stated history of hyperlipidemia has been stably treated with atorvastatin 40 mg daily for many years. Patient's LDL low on lipid panel. Notable elevated triglycerides but not fasting sample. - atorvastatin 40 mg daily - tricor 145mg daily Assessment & Plan (04/25/2020 9:45 AM DRUM REEL CUTTER): Has a stated history of hyperlipidemia has [...] daily Assessment & Plan (04/24/2020 9:48 AM DRUM REEL CUTTER): Has a stated history of hyperlipidemia has [...] daily Assessment & Plan (04/23/2020 10:21 AM DRUM REEL CUTTER): Has a stated history of hyperlipidemia has [...] daily Assessment & Plan (04/21/2020 8:38 AM DRUM REEL CUTTER): Has a stated history of hyperlipidemia has [...] daily Assessment & Plan (04/20/2020 12:05 PM DRUM REEL CUTTER): Has a stated history of hyperlipidemia has [...] daily Assessment & Plan (04/19/2020 9:46 AM DRUM REEL CUTTER): Has a stated history of hyperlipidemia has [...] daily Assessment & Plan (04/18/2020 10:09 AM DRUM REEL CUTTER): Has a stated history of hyperlipidemia has [...] daily Assessment & Plan (04/17/2020 9:31 AM DRUM REEL CUTTER): Has a stated history of hyperlipidemia has [...] daily Assessment & Plan (04/16/2020 11:51 AM DRUM REEL CUTTER): Has a stated history of hyperlipidemia has [...] daily Assessment & Plan (04/14/2020 9:56 AM DRUM REEL CUTTER): Has a stated history of hyperlipidemia has [...] daily Assessment & Plan (04/13/2020 9:46 AM DRUM REEL CUTTER): Has a stated history of hyperlipidemia has [...] daily Assessment & Plan (04/10/2020 3:25 PM DRUM REEL CUTTER): Continue atorvastatin 40 Assessment & Plan (04/08/2020 3:17 PM DRUM REEL CUTTER): Continue atorvastatin 40 Assessment & Plan (04/07/2020 6:15 AM DRUM REEL CUTTER): Continue atorvastatin 40 Assessment & Plan (04/12/2020 9:03 AM DRUM REEL CUTTER): Has a stated history of hyperlipidemia has [...] (08/31/2018): Added automatically from request for surgery [id number] Assessment & Plan (09/06/2018 12:49 PM CDT): [...] 04/10/2020 Assessment & Plan (05/04/2020 12:55 PM DRUM REEL CUTTER): Cr 1.3 -> 1.22 resolving. Baseline <1. - encourage fluids - avoid nephrotoxic meds Assessment & Plan (05/03/2020 9:56 AM DRUM REEL CUTTER): Cr 1.3 -> 1.22 resolving. Baseline <1. - encourage fluids - avoid nephrotoxic meds Assessment & Plan (05/02/2020 11:57 AM DRUM REEL CUTTER): Cr 1.3 -> 1.22 resolving. Baseline <1. - encourage fluids - avoid nephrotoxic meds Assessment & Plan (05/01/2020 10:58 AM DRUM REEL CUTTER): Cr 1.3 -> 1.22 resolving. Baseline <1. - encourage fluids - avoid nephrotoxic meds Assessment & Plan (04/19/2020 9:46 AM DRUM REEL CUTTER): Cr 1.3 -> 1.22 resolving. Baseline <1. - encourage fluids - avoid nephrotoxic meds Assessment & Plan (04/18/2020 10:09 AM DRUM REEL CUTTER): Cr 1.3 -> 1.22 resolving. Baseline <1. - encourage fluids - avoid nephrotoxic meds Assessment & Plan (04/16/2020 11:51 AM DRUM REEL CUTTER): Cr 1.3 -> 1.22 resolving. Baseline <1. - encourage fluids - avoid nephrotoxic meds Assessment & Plan (04/14/2020 9:57 AM DRUM REEL CUTTER): Cr 1.3 -> 1.22 resolving. Baseline <1. - encourage fluids - avoid nephrotoxic meds Assessment & Plan (04/13/2020 9:47 AM DRUM REEL CUTTER): Cr 1.3 -> 1.22 resolving. Baseline <1. - encourage fluids - avoid nephrotoxic meds Assessment & Plan (04/12/2020 9:04 AM DRUM REEL CUTTER): Cr 1.3 -> 1.22 resolving. Baseline <1. - encourage fluids - avoid nephrotoxic meds Diarrhea 04/10/2020 04/20/2020 Assessment & Plan (05/04/2020 12:55 PM DRUM REEL CUTTER): Patient recently had constipation, was treated with BID miralax and senna- docusate. Was having diarrhea last week so scheduled bowel regimen discontinued. - discontinued daily senna-docusate - miralax PRN Assessment & Plan (05/03/2020 9:56 AM DRUM REEL CUTTER): Patient recently had constipation, was treated with BID miralax and senna- docusate. Was having diarrhea last week so scheduled bowel regimen discontinued. - discontinued daily senna-docusate - miralax PRN Assessment & Plan (05/01/2020 10:59 AM DRUM REEL CUTTER): Patient recently had constipation, was treated with BID miralax and senna- docusate. Was having diarrhea last week so scheduled bowel regimen discontinued. - discontinued daily senna-docusate - miralax PRN Assessment & Plan (04/19/2020 9:47 AM DRUM REEL CUTTER): Patient recently had constipation, was treated with BID miralax and senna- docusate. Was having diarrhea last week so scheduled bowel regimen discontinued. - discontinued daily senna-docusate - miralax PRN Assessment & Plan (04/16/2020 11:52 AM DRUM REEL CUTTER): Patient recently had constipation, was treated with BID miralax and senna- docusate. Was having diarrhea last week so scheduled bowel regimen discontinued. - discontinue daily senna-docusate - miralax PRN Assessment & Plan (04/14/2020 9:57 AM [employer]): Patient recently had constipation, was treated with BID miralax and senna- docusate. Endorsing nonbloody diarrhea for last 2 days. - discontinue daily senna-docusate - miralax PRN Assessment & Plan (04/10/2020 10:09 PM [employer]): Patient recently had constipation, was treated with BID miralax and senna- docusate. Endorsing nonbloody diarrhea for last 2 days. - discontinue daily senna-docusate - miralax PRN Ventral hernia without obstr uction or gangrene 08/31/2018 04/20/2020 Overview (08/31/2018): Added automatically from request for surgery [id number] Assessment & Plan (09/06/2018 12:51 PM CDT): The procedure along with the risks, benefits, and post operative period were discussed with the patient and his significant other who agree. Fracture of navicular bone of foot 05/16/2015 04/20/2020
--- OUTSIDE RECORDS SUMMARY | 2024-10-04 10:00 | XMS_ITS | Clinical Summary ---
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 teacher before breakfast Active venlafaxine XR (EFFEXOR-XR) 150 [...] (12/17/2020): Added automatically from request for surgery [id number] 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/13/2020 Overview (12/13/2020): Added automatically from request for surgery [id number] Malignant carcinoid tumor of the ileum Stimulant use disorder 05/31/2020 Severe alcohol use disorder 05/31/2020 PTSD (post-traumatic stress disorder) 05/31/2020 Chronic bilateral low back pain without sciatica 04/07/2020 Assessment & Plan (05/04/2020 12:54 PM GROVE WORKER): - flexeril 10mg TID PRN - Pitcher 10mg q4 PRN - lidocaine patch daily - avoid IV ketorelac and NSAIDs with starting lithium - heating packs Assessment & Plan (05/03/2020 9:56 AM GROVE WORKER): - flexeril 10mg TID PRN - Pitcher 10mg q4 PRN - lidocaine patch daily - avoid IV ketorelac and NSAIDs with starting lithium - heating packs Assessment & Plan (05/02/2020 11:56 AM GROVE WORKER): - flexeril 10mg TID PRN - Pitcher 10mg q4 PRN - lidocaine patch daily - avoid IV ketorelac and NSAIDs with starting lithium - heating packs Assessment & Plan (05/01/2020 10:58 AM GROVE WORKER): - flexeril 10mg TID PRN - NORCO 10mg q4 PRN - lidocaine patch daily - avoid IV ketorelac and NSAIDs with starting lithium - heating pads Assessment & Plan (04/30/2020 12:17 PM GROVE WORKER): - flexeril 10mg TID PRN - NORCO 10mg q4 PRN - lidocaine patch daily - avoid IV ketorelac and NSAIDs with starting lithium - heating pads Assessment & Plan (04/28/2020 8:01 AM GROVE WORKER): - flexeril 10mg TID PRN - NORCO 10mg q4 PRN - lidocaine patch daily - avoid IV ketorelac and NSAIDs with starting lithium - heating pads Assessment & Plan (04/27/2020 8:47 AM GROVE WORKER): - flexeril 10mg TID PRN - NORCO 10mg q4 PRN - lidocaine patch daily - avoid IV ketorelac and NSAIDs given ADILENE - heating pads Assessment & Plan (04/26/2020 10:11 AM GROVE WORKER): - flexeril 10mg TID PRN - NORCO 10mg q4 PRN - lidocaine patch daily - avoid IV ketorelac and NSAIDs given ADILENE - heating pads Assessment & Plan (04/25/2020 9:45 AM GROVE WORKER): - flexeril 10mg TID PRN - NORCO 10mg q4 PRN - lidocaine patch daily - avoid IV ketorelac and NSAIDs given ADILENE - heating pads Assessment & Plan (04/24/2020 9:49 AM GROVE WORKER): - flexeril 10mg TID PRN - NORCO 10mg q4 PRN - lidocaine patch daily - avoid IV ketorelac and NSAIDs given ADILENE - heating pads Assessment & Plan (04/23/2020 10:21 AM GROVE WORKER): - flexeril 10mg TID PRN - NORCO 10mg q4 PRN - lidocaine patch daily - avoid IV ketorelac and NSAIDs given ADILENE - heating pads Assessment & Plan (04/21/2020 8:38 AM GROVE WORKER): - flexeril 10mg TID PRN - NORCO 10mg q4 PRN - lidocaine patch daily - avoid IV ketorelac and NSAIDs given ADILENE - heating pads Assessment & Plan (04/20/2020 12:05 PM GROVE WORKER): - flexeril 10mg TID PRN - NORCO 10mg q4 PRN - lidocaine patch daily - avoid IV ketorelac and NSAIDs given ADILENE - heating pads Assessment & Plan (04/19/2020 9:46 AM GROVE WORKER): - flexeril 10mg TID PRN - NORCO 10mg q4 PRN - lidocaine patch daily - avoid IV ketorelac and NSAIDs given ADILENE - heating pads Assessment & Plan (04/18/2020 10:09 AM GROVE WORKER): - flexeril 10mg TID PRN - NORCO 10mg q4 PRN - lidocaine patch daily - avoid IV ketorelac and NSAIDs given ADILENE - heating pads Assessment & Plan (04/17/2020 9:31 AM GROVE WORKER): - flexeril 10mg TID PRN - NORCO 10mg q4 PRN - lidocaine patch daily - avoid IV ketorelac and NSAIDs given ADILENE - heating pads Assessment & Plan (04/16/2020 11:51 AM GROVE WORKER): - flexeril 10mg TID PRN - NORCO 10mg q4 PRN - lidocaine patch daily - avoid IV ketorelac and NSAIDs given ADILENE - heating pads Assessment & Plan (04/14/2020 9:57 AM GROVE WORKER): - flexeril 10mg TID PRN - NORCO 10mg q4 PRN - lidocaine patch daily - avoid IV ketorelac and NSAIDs given ADILENE - heating pads Assessment & Plan (04/10/2020 10:04 PM GROVE WORKER): - flexeril 10mg TID PRN - NORCO 10mg q4 PRN - lidocaine patch daily - avoid IV ketorelac and NSAIDs given ADILENE - heating pads Assessment & Plan (04/08/2020 3:23 PM GROVE WORKER): Patient endorsing exacerbation of chronic back pain [...] -PT Assessment & Plan (04/07/2020 6:23 AM GROVE WORKER): Patient endorsing exacerbation of chronic back pain and left ankle pain (had previous traumatic injury, required surgery). No other red flag symptoms/signs. Reports he has received injections in the past -Continue PRN norco, flexeril -Lidocaine patch to back -PT Depressive disorder 04/03/2020 Assessment & Plan (05/04/2020 12:54 PM GROVE WORKER): 54yo M with reported history of bipolar [...] more bright. Plan to discharge patient 05/04. [place] augmentation started with moderate improvements seen in depressive symptoms with ECT, titrated to 300 mg BID with level 0.6. - Continue OLANZapine, 20 mg, oral, Nightly, for depression - Continue Venlafaxine XR 150 mg PO daily, for depression - Continue lithium to 300 mg BID - [place] level 0.6 on 05/03 - This is [...] 05/04 Assessment & Plan (05/03/2020 9:56 AM GROVE WORKER): 54yo M with reported history of bipolar [...] more bright. Plan to discharge patient 05/04. [place] augmentation started with moderate improvements seen in depressive symptoms with ECT, titrated to 300 mg BID with level 0.6. - Continue OLANZapine, 20 mg, oral, Nightly, for depression - Continue Venlafaxine XR 150 mg PO daily, for depression - Continue lithium to 300 mg BID - [place] level 0.6 on 05/03 - This is [...] permission) Assessment & Plan (05/02/2020 11:56 AM GROVE WORKER): 54yo M with reported history of bipolar [...] permission) Assessment & Plan (05/01/2020 10:58 AM GROVE WORKER): 54yo M with reported history of bipolar [...] family Assessment & Plan (04/30/2020 12:17 PM GROVE WORKER): 54yo M with reported history of bipolar [...] family Assessment & Plan (04/28/2020 8:02 AM GROVE WORKER): 54yo M with reported history of bipolar [...] depression Assessment & Plan (04/27/2020 8:47 AM GROVE WORKER): 54yo M with reported history of bipolar [...] depression Assessment & Plan (04/26/2020 10:11 AM GROVE WORKER): 54yo M with reported history of bipolar [...] depression Assessment & Plan (04/25/2020 9:47 AM GROVE WORKER): 54yo M with reported history of bipolar [...] depression Assessment & Plan (04/24/2020 9:48 AM GROVE WORKER): 54yo M with reported history of bipolar [...] depression Assessment & Plan (04/23/2020 10:21 AM GROVE WORKER): 54yo M with reported history of bipolar [...] depression Assessment & Plan (04/21/2020 8:36 AM GROVE WORKER): 54yo M with reported history of bipolar [...] depression Assessment & Plan (04/20/2020 12:05 PM GROVE WORKER): 54yo M with reported history of bipolar [...] depression Assessment & Plan (04/19/2020 9:48 AM GROVE WORKER): 54yo M with reported history of bipolar [...] depression Assessment & Plan (04/18/2020 10:08 AM GROVE WORKER): 54yo M with reported history of bipolar [...] depression Assessment & Plan (04/17/2020 9:32 AM GROVE WORKER): 54yo M with reported history of bipolar [...] depression Assessment & Plan (04/16/2020 11:49 AM GROVE WORKER): 54yo M with reported history of bipolar [...] depression Assessment & Plan (04/14/2020 9:56 AM GROVE WORKER): 54yo M with reported history of bipolar [...] depression Assessment & Plan (04/13/2020 9:46 AM GROVE WORKER): 54yo M with reported history of bipolar [...] for ECT by cardiology, no diagnosis of ischemia/MA, no focal wall movement abnormalities on echo, [...] procedure Assessment & Plan (04/10/2020 3:25 PM GROVE WORKER): Presented to ED 04/02 with suicidal ideation, depression. Initially admitted to psychiatry for medication adjustment, received ECT x1 04/06 -Continue current meds: lexapro 5, effexor 112.5, olanzapine 20mg QHS - If COVID test is negative, transfer to Psychiatry floor. Assessment & Plan (04/08/2020 3:24 PM GROVE WORKER): Presented to ED 04/02 with suicidal ideation, depression. Initially admitted to psychiatry for medication adjustment, received ECT x1 04/06 -Psych consulted upon transfer to medicine but are following only peripherally over the weekend -Continue current meds: lexapro 5, effexor 112.5, olanzapine 20mg QHS -Psychiatry recommending discontinuing suicide precautions with 1:1 sitter Assessment & Plan (04/07/2020 6:14 AM GROVE WORKER): Presented to ED 04/02 with suicidal ideation, depression. Initially admitted to psychiatry for medication adjustment, received ECT x1 04/06 -Psych c/s upon transfer -Continue current meds: lexapro 5, effexor 112.5, olanzapine 20mg QHS -Suicide precautions, 1:1 sitter Assessment & Plan (04/12/2020 9:11 AM GROVE WORKER): 54yo M with reported history of bipolar [...] for ECT by cardiology, no diagnosis of ischemia/MA, no focal wall movement abnormalities on echo, [...] midnight Assessment & Plan (04/03/2020 2:04 PM GROVE WORKER): 54yo M with reported history of bipolar [...] disease) Assessment & Plan (05/04/2020 12:54 PM GROVE WORKER): Patient has a long history of GERD. - Protonix 40 mg daily Assessment & Plan (05/03/2020 9:56 AM GROVE WORKER): Patient has a long history of GERD. - Protonix 40 mg daily Assessment & Plan (05/02/2020 11:57 AM GROVE WORKER): Patient has a long history of GERD. - Protonix 40 mg daily Assessment & Plan (05/01/2020 10:58 AM GROVE WORKER): Patient has a long history of GERD. - Protonix 40 mg daily Assessment & Plan (04/30/2020 12:17 PM GROVE WORKER): Patient has a long history of GERD. - Protonix 40 mg daily Assessment & Plan (04/28/2020 8:00 AM GROVE WORKER): Patient has a long history of GERD. -Protonix 40 mg daily Assessment & Plan (04/27/2020 8:47 AM GROVE WORKER): Patient has a long history of GERD. -Protonix 40 mg daily Assessment & Plan (04/26/2020 10:11 AM GROVE WORKER): Patient has a long history of GERD. -Protonix 40 mg daily Assessment & Plan (04/25/2020 9:45 AM GROVE WORKER): Patient has a long history of GERD. -Protonix 40 mg daily Assessment & Plan (04/24/2020 9:48 AM GROVE WORKER): Patient has a long history of GERD. -Protonix 40 mg daily Assessment & Plan (04/23/2020 10:21 AM GROVE WORKER): Patient has a long history of GERD. -Protonix 40 mg daily Assessment & Plan (04/21/2020 8:37 AM GROVE WORKER): Patient has a long history of GERD. -Protonix 40 mg daily Assessment & Plan (04/20/2020 12:05 PM GROVE WORKER): Patient has a long history of GERD. -Protonix 40 mg daily Assessment & Plan (04/19/2020 9:46 AM GROVE WORKER): Patient has a long history of GERD. -Protonix 40 mg daily Assessment & Plan (04/18/2020 10:09 AM GROVE WORKER): Patient has a long history of GERD. -Protonix 40 mg daily Assessment & Plan (04/17/2020 9:31 AM GROVE WORKER): Patient has a long history of GERD. -Protonix 40 mg daily Assessment & Plan (04/16/2020 11:51 AM GROVE WORKER): Patient has a long history of GERD. -Protonix 40 mg daily Assessment & Plan (04/14/2020 9:56 AM GROVE WORKER): Patient has a long history of GERD. -Protonix 40 mg daily Assessment & Plan (04/10/2020 3:25 PM GROVE WORKER): Continue pantoprazole Assessment & Plan (04/08/2020 3:17 PM GROVE WORKER): Continue pantoprazole Assessment & Plan (04/07/2020 6:15 AM GROVE WORKER): Continue pantoprazole Assessment & Plan (04/03/2020 5:54 PM GROVE WORKER): Patient has a long history of GERD. -Protonix 40 mg daily Hypothyroidism 04/03/2020 Assessment & Plan (05/04/2020 12:54 PM GROVE WORKER): Patient carries a diagnosis of hypothyroidism for several years. He is currently treated on levothyroxine 75 mcg daily. - Repeat TFT tests in 6 weeks - continue levothyroxine 75 mcg daily Assessment & Plan (05/03/2020 9:56 AM GROVE WORKER): Patient carries a diagnosis of hypothyroidism for several years. He is currently treated on levothyroxine 75 mcg daily. - Repeat TFT tests in 6 weeks - continue levothyroxine 75 mcg daily Assessment & Plan (05/02/2020 11:57 AM GROVE WORKER): Patient carries a diagnosis of hyperthyroidism for several years. He is currently treated on levothyroxine 75 mcg daily. - Repeat TFT tests in 6 weeks - continue levothyroxine 75 mcg daily Assessment & Plan (05/01/2020 10:58 AM GROVE WORKER): Patient carries a diagnosis of hyperthyroidism for several years. He is currently treated on levothyroxine 75 mcg daily. - Repeat TFT tests in 6 weeks - continue levothyroxine 75 mcg daily Assessment & Plan (04/30/2020 12:17 PM GROVE WORKER): Patient carries a diagnosis of hyperthyroidism for several years. He is currently treated on levothyroxine 75 mcg daily. - Repeat TFT tests in 6 weeks - continue levothyroxine 75 mcg daily Assessment & Plan (04/28/2020 8:00 AM GROVE WORKER): Patient carries a diagnosis of hyperthyroidism for several years. He is currently treated on levothyroxine 75 mcg daily. - Repeat TFT tests in 6 weeks - continue levothyroxine 75 mcg daily Assessment & Plan (04/27/2020 8:47 AM GROVE WORKER): Patient carries a diagnosis of hyperthyroidism for several years. He is currently treated on levothyroxine 75 mcg daily. - Repeat TFT tests in 6 weeks - continue levothyroxine 75 mcg daily Assessment & Plan (04/26/2020 10:11 AM GROVE WORKER): Patient carries a diagnosis of hyperthyroidism for several years. He is currently treated on levothyroxine 75 mcg daily. - Repeat TFT tests in 6 weeks - continue levothyroxine 75 mcg daily Assessment & Plan (04/25/2020 9:45 AM GROVE WORKER): Patient carries a diagnosis of hyperthyroidism for several years. He is currently treated on levothyroxine 75 mcg daily. - Repeat TFT tests in 6 weeks - continue levothyroxine 75 mcg daily Assessment & Plan (04/24/2020 9:48 AM GROVE WORKER): Patient carries a diagnosis of hyperthyroidism for several years. He is currently treated on levothyroxine 75 mcg daily. - Repeat TFT tests in 6 weeks - continue levothyroxine 75 mcg daily Assessment & Plan (04/23/2020 10:21 AM GROVE WORKER): Patient carries a diagnosis of hyperthyroidism for several years. He is currently treated on levothyroxine 75 mcg daily. - Repeat TFT tests in 6 weeks - continue levothyroxine 75 mcg daily Assessment & Plan (04/21/2020 8:37 AM GROVE WORKER): Patient carries a diagnosis of hyperthyroidism for several years. He is currently treated on levothyroxine 75 mcg daily. - Repeat TFT tests in 6 weeks - continue levothyroxine 75 mcg daily Assessment & Plan (04/20/2020 12:05 PM GROVE WORKER): Patient carries a diagnosis of hyperthyroidism for several years. He is currently treated on levothyroxine 75 mcg daily. - Repeat TFT tests in 6 weeks - continue levothyroxine 75 mcg daily Assessment & Plan (04/19/2020 9:46 AM GROVE WORKER): Patient carries a diagnosis of hyperthyroidism for several years. He is currently treated on levothyroxine 75 mcg daily. - Repeat TFT tests in 6 weeks - continue levothyroxine 75 mcg daily Assessment & Plan (04/18/2020 10:09 AM GROVE WORKER): Patient carries a diagnosis of hyperthyroidism for several years. He is currently treated on levothyroxine 75 mcg daily. - Repeat TFT tests in 6 weeks - continue levothyroxine 75 mcg daily Assessment & Plan (04/17/2020 9:31 AM GROVE WORKER): Patient carries a diagnosis of hyperthyroidism for several years. He is currently treated on levothyroxine 75 mcg daily. - Repeat TFT tests in 6 weeks - continue levothyroxine 75 mcg daily Assessment & Plan (04/16/2020 11:51 AM GROVE WORKER): Patient carries a diagnosis of hyperthyroidism for several years. He is currently treated on levothyroxine 75 mcg daily. - Repeat TFT tests in 6 weeks - continue levothyroxine 75 mcg daily Assessment & Plan (04/14/2020 9:57 AM GROVE WORKER): Patient carries a diagnosis of hyperthyroidism for several years. He is currently treated on levothyroxine 75 mcg daily. - Repeat TFT tests in 6 weeks - continue levothyroxine 75 mcg daily Assessment & Plan (04/10/2020 3:25 PM GROVE WORKER): 04/02: TSH 6.49, T4 WNL at 1.38 Continue synthroid 75mcg; repeat TFTs 6-8 weeks Assessment & Plan (04/08/2020 3:17 PM GROVE WORKER): 04/02: TSH 6.49, T4 WNL at 1.38 Continue synthroid 75mcg; repeat TFTs 6-8 weeks Assessment & Plan (04/07/2020 6:16 AM GROVE WORKER): 04/02: TSH 6.49, T4 WNL at 1.38 Continue synthroid 75mcg; repeat TFTs 6-8 weeks Assessment & Plan (04/10/2020 9:35 PM GROVE WORKER): Patient carries a diagnosis of hyperthyroidism for several years. He is currently treated on levothyroxine 75 mcg daily. - Repeat TFT tests in 6 weeks - continue levothyroxine 75 mcg daily Hyperlipemia 04/03/2020 Assessment & Plan (05/04/2020 12:55 PM GROVE WORKER): Has a stated history of hyperlipidemia has been stably treated with atorvastatin 40 mg daily for many years. Patient's LDL low on lipid panel. Notable elevated triglycerides but not fasting sample. - atorvastatin 40 mg daily - fenofibrate 145mg daily Assessment & Plan (05/03/2020 9:56 AM GROVE WORKER): Has a stated history of hyperlipidemia has been stably treated with atorvastatin 40 mg daily for many years. Patient's LDL low on lipid panel. Notable elevated triglycerides but not fasting sample. - atorvastatin 40 mg daily - fenofibrate 145mg daily Assessment & Plan (05/02/2020 11:57 AM GROVE WORKER): Has a stated history of hyperlipidemia has been stably treated with atorvastatin 40 mg daily for many years. Patient's LDL low on lipid panel. Notable elevated triglycerides but not fasting sample. - atorvastatin 40 mg daily - fenofibrate 145mg daily Assessment & Plan (05/01/2020 10:58 AM GROVE WORKER): Has a stated history of hyperlipidemia has been stably treated with atorvastatin 40 mg daily for many years. Patient's LDL low on lipid panel. Notable elevated triglycerides but not fasting sample. - atorvastatin 40 mg daily - tricor 145mg daily Assessment & Plan (04/30/2020 12:17 PM GROVE WORKER): Has a stated history of hyperlipidemia has been stably treated with atorvastatin 40 mg daily for many years. Patient's LDL low on lipid panel. Notable elevated triglycerides but not fasting sample. - atorvastatin 40 mg daily - tricor 145mg daily Assessment & Plan (04/28/2020 8:01 AM GROVE WORKER): Has a stated history of hyperlipidemia has been stably treated with atorvastatin 40 mg daily for many years. Patient's LDL low on lipid panel. Notable elevated triglycerides but not fasting sample. - atorvastatin 40 mg daily - tricor 145mg daily Assessment & Plan (04/27/2020 8:47 AM GROVE WORKER): Has a stated history of hyperlipidemia has been stably treated with atorvastatin 40 mg daily for many years. Patient's LDL low on lipid panel. Notable elevated triglycerides but not fasting sample. - atorvastatin 40 mg daily - tricor 145mg daily Assessment & Plan (04/26/2020 10:11 AM GROVE WORKER): Has a stated history of hyperlipidemia has been stably treated with atorvastatin 40 mg daily for many years. Patient's LDL low on lipid panel. Notable elevated triglycerides but not fasting sample. - atorvastatin 40 mg daily - tricor 145mg daily Assessment & Plan (04/25/2020 9:45 AM GROVE WORKER): Has a stated history of hyperlipidemia has [...] daily Assessment & Plan (04/24/2020 9:48 AM GROVE WORKER): Has a stated history of hyperlipidemia has [...] daily Assessment & Plan (04/23/2020 10:21 AM GROVE WORKER): Has a stated history of hyperlipidemia has [...] daily Assessment & Plan (04/21/2020 8:38 AM GROVE WORKER): Has a stated history of hyperlipidemia has [...] daily Assessment & Plan (04/20/2020 12:05 PM GROVE WORKER): Has a stated history of hyperlipidemia has [...] daily Assessment & Plan (04/19/2020 9:46 AM GROVE WORKER): Has a stated history of hyperlipidemia has [...] daily Assessment & Plan (04/18/2020 10:09 AM GROVE WORKER): Has a stated history of hyperlipidemia has [...] daily Assessment & Plan (04/17/2020 9:31 AM GROVE WORKER): Has a stated history of hyperlipidemia has [...] daily Assessment & Plan (04/16/2020 11:51 AM GROVE WORKER): Has a stated history of hyperlipidemia has [...] daily Assessment & Plan (04/14/2020 9:56 AM GROVE WORKER): Has a stated history of hyperlipidemia has [...] daily Assessment & Plan (04/13/2020 9:46 AM GROVE WORKER): Has a stated history of hyperlipidemia has [...] daily Assessment & Plan (04/10/2020 3:25 PM GROVE WORKER): Continue atorvastatin 40 Assessment & Plan (04/08/2020 3:17 PM GROVE WORKER): Continue atorvastatin 40 Assessment & Plan (04/07/2020 6:15 AM GROVE WORKER): Continue atorvastatin 40 Assessment & Plan (04/12/2020 9:03 AM GROVE WORKER): Has a stated history of hyperlipidemia has [...] (08/31/2018): Added automatically from request for surgery [id number] Assessment & Plan (09/06/2018 12:49 PM CDT): [...] 04/10/2020 Assessment & Plan (05/04/2020 12:55 PM GROVE WORKER): Cr 1.3 -> 1.22 resolving. Baseline <1. - encourage fluids - avoid nephrotoxic meds Assessment & Plan (05/03/2020 9:56 AM GROVE WORKER): Cr 1.3 -> 1.22 resolving. Baseline <1. - encourage fluids - avoid nephrotoxic meds Assessment & Plan (05/02/2020 11:57 AM GROVE WORKER): Cr 1.3 -> 1.22 resolving. Baseline <1. - encourage fluids - avoid nephrotoxic meds Assessment & Plan (05/01/2020 10:58 AM GROVE WORKER): Cr 1.3 -> 1.22 resolving. Baseline <1. - encourage fluids - avoid nephrotoxic meds Assessment & Plan (04/19/2020 9:46 AM GROVE WORKER): Cr 1.3 -> 1.22 resolving. Baseline <1. - encourage fluids - avoid nephrotoxic meds Assessment & Plan (04/18/2020 10:09 AM GROVE WORKER): Cr 1.3 -> 1.22 resolving. Baseline <1. - encourage fluids - avoid nephrotoxic meds Assessment & Plan (04/16/2020 11:51 AM GROVE WORKER): Cr 1.3 -> 1.22 resolving. Baseline <1. - encourage fluids - avoid nephrotoxic meds Assessment & Plan (04/14/2020 9:57 AM GROVE WORKER): Cr 1.3 -> 1.22 resolving. Baseline <1. - encourage fluids - avoid nephrotoxic meds Assessment & Plan (04/13/2020 9:47 AM GROVE WORKER): Cr 1.3 -> 1.22 resolving. Baseline <1. - encourage fluids - avoid nephrotoxic meds Assessment & Plan (04/12/2020 9:04 AM GROVE WORKER): Cr 1.3 -> 1.22 resolving. Baseline <1. - encourage fluids - avoid nephrotoxic meds Diarrhea 04/10/2020 04/20/2020 Assessment & Plan (05/04/2020 12:55 PM GROVE WORKER): Patient recently had constipation, was treated with BID miralax and senna- docusate. Was having diarrhea last week so scheduled bowel regimen discontinued. - discontinued daily senna-docusate - miralax PRN Assessment & Plan (05/03/2020 9:56 AM GROVE WORKER): Patient recently had constipation, was treated with BID miralax and senna- docusate. Was having diarrhea last week so scheduled bowel regimen discontinued. - discontinued daily senna-docusate - miralax PRN Assessment & Plan (05/01/2020 10:59 AM GROVE WORKER): Patient recently had constipation, was treated with BID miralax and senna- docusate. Was having diarrhea last week so scheduled bowel regimen discontinued. - discontinued daily senna-docusate - miralax PRN Assessment & Plan (04/19/2020 9:47 AM GROVE WORKER): Patient recently had constipation, was treated with BID miralax and senna- docusate. Was having diarrhea last week so scheduled bowel regimen discontinued. - discontinued daily senna-docusate - miralax PRN Assessment & Plan (04/16/2020 11:52 AM GROVE WORKER): Patient recently had constipation, was treated with BID miralax and senna- docusate. Was having diarrhea last week so scheduled bowel regimen discontinued. - discontinue daily senna-docusate - miralax PRN Assessment & Plan (04/14/2020 9:57 AM GROVE WORKER): Patient recently had constipation, was treated with BID miralax and senna- docusate. Endorsing nonbloody diarrhea for last 2 days. - discontinue daily senna-docusate - miralax PRN Assessment & Plan (04/10/2020 10:09 PM GROVE WORKER): Patient recently had constipation, was treated with BID miralax and senna- docusate. Endorsing nonbloody diarrhea for last 2 days. - discontinue daily senna-docusate - miralax PRN Ventral hernia without obstr uction or gangrene 08/31/2018 04/20/2020 Overview (08/31/2018): Added automatically from request for surgery [id number] Assessment & Plan (09/06/2018 12:51 PM CDT): [...] week 02/01/2021 How often do you attend [facility] or mormonism services? More than 4 times per year 02/01/2021 Do you belong to any clubs o r organizations such as orthodox groups, unions, fraternal or athletic groups, [...] Date Recorded PHQ-2 Total Score 4 04/03/2020 [facility] - Occupational [...] place to sleep or slept in a snf (including now)? No 02/01/2021 Personal Safety Answer Date Recorded Have you ever been in or are you currently in a harmful physical or emotional relationship or is someone making you feel afraid or unsafe? Denies 03/11/2024 Sex and Gender Information Value Date Recorded Sex Assigned at Not on file Legal Sex Male 3:25 AM GROVE WORKER Gender Identity Male 03/26/2021 11:53 AM GROVE WORKER Sexual Orientation Choose not to disclose 2021 11:53 AM GROVE WORKER Occupation Industry Job Start Date Job End Date disabled Not on file Not on file Not on file Obstetrics History Last Filed Vital Signs Vital Sign Reading Time Taken Comments Blood Pressure 126/74 04/06/2024 9:02 AM GROVE WORKER Pulse 68 04/06/2024 9:02 AM GROVE WORKER Temperature 36.2 C (97.1 F) 04/06/2024 9:02 AM GROVE WORKER Respiratory Rate 16 03/11/2024 4:45 PM GROVE WORKER Oxygen Saturation 95% 04/06/2024 9:02 AM GROVE WORKER Inhaled Oxygen Concentration - - Weight 97.3 kg (214 lb 9.6 oz) 04/06/2024 9:02 A M GROVE WORKER Height 182.9 cm (6') 04/06/2024 9:02 AM GROVE WORKER Body Mass Index 29.1 04/06/2024 9:02 AM GROVE WORKER Plan of Treatment Health Maintenance Due Date [...] 10/2020, 08/28/2020 Medical Devices Implanted Type Area Feed Project Engineer Device Identifier Shelf Expiration Date Model / Serial / Lot [employer]/C R Bard [id number] Ventralight St Sepra 4.5in Uncoated Monofilament Lightweight - [id number] Implanted:Qty: 1 on 09/09/2018 by Xavier Aviles MD at [facility] N/A: Abdomen [employer]/C R 12/19/2019 [id number] / / [id number] [employer] [id number] Mini Ignite Power Mix Injectable Graft 4ml Synthetic Tissue - [id number] - [id number] Implanted:Qty: 1 on 01/29/2021 by Don Kevin MD at [facility] [employer] 07/08/2023 [id number] / [id number] / [employer] [id number] Medline Unite 7mm 6.5mm 80mm 16mm Cannulated Color Coded Headless - [id number] Implanted:Qty: 1 on 01/29/2021 by Don Kevin MD at [facility] Left: Foot [employer] [id number] / / Medline [employer] [id number] Medline Unite 6.5mm 90mm 16mm Cannulated Color Coded Headless - [id number] Implanted:Qty: 1 on 01/29/2021 by Don Kevin MD at [facility] Left: Foot [employer] [id number] / / Medline [employer] [id number] Screw Bone L50mm Od4.5mm Foot Ankle Cannulated Color Coded Osteotomy - [id number] Implanted:Qty: 1 on 01/29/2021 by Don Kevin MD at [facility] Left: Foot [employer] [id number] / / 20x20 Nitnol Staple Implanted:Qty: 1 on 01/29/2021 by Don Kevin MD at [facility] Left: Foot [employer] Description:[id number] [employer] [id number] Bit 3.3mm Drill Cannulated Ao Quick Connect Color Coded - [id number] Implanted:Qty: 1 on 01/29/2021 by Don Kevin MD at [facility] Left: Foot [employer] [id number] / / Procedures Procedure Name Priority Date/Time Associated Diagnosis Comments PSA SCREEN Routine 12/20/2019 2:31 PM CDT COLONOSCOPY 11/18/2017 7:41 AM CDT from Last 3 Months or Most Recently Relevant to Health Maintenance Results * PSA screen (12/20/2019 2:31 PM CDT) PSA-Total 0.53 <=3.90 ng/mL YULY ELSA (CALCIUM) Comment: Interpretive Data AGE SEX REFERENCE INTERVAL 0 minutes-150 years Female None 0 minutes-49 years Male None 50-59 years Male 0-3.90 60-69 years Male 0-5.40 70-79 years Male 0-6.20 80-150 years Male 0-6.20 Current interpretive data last revised 2018. Testing performed by: [facility], [address] [place] [address], [place] [address] Blood specimen (specimen) 12/20/2019 2:31 PM CDT 12/20/2019 6:54 PM CDT Raoul Best MD LAB BLOOD ORDERABLES Final Re sult YULY ELSA (SAIMA) 1 [facility] Department [place] [address] * COLONOSCOPY (11/18/2017 7:41 AM CDT) Anatomical Region Laterality Modality Other Narrative Procedure Note Alexander Pitts MD - 11/18/2017 7:41 AM CDT [facility] Patient Name: Baljeet Herman Procedure Date: 11/18/2017 7:41 AM Date of : 1965 Admit Type: Outpatient Age: 52 Gender: Male Attending MD: Alexander Pitts MD Room: ON LICENSE OF [facility] ENDOSCOPY ROOM 2 Note Status: [...] passed under direct vision.The Pediatric Colonoscope PCF-H190L [id number] was introduced through the anus and advanced [...] malignant neoplasm of largeintestine CPT copyright 2017 [employer]. All rights reserved. The codes documented in this report are preliminary and upon collar tailor reviewmay be revised to meet current compliance requirements. Recognized by the [employer] for promoting quality in endoscopy Alexander Pitts MD ENDOSCOPY PROCEDURES Final Result from Last 3 Months or Most Recently Relevant to Health Maintenance Insurance MEDICARE IDPA IDPA [facility] MEDIC[facility] Address: [facility] [address] [place] [address] [facility] MEDIC[facility] Address: [address] [address] [place] [address] IDPA Advance Directives For more information, please contact: [phone] Documents on File Type Date Recorded Patient Hospital Educator Expl anation ADVANCE DIRECTIVE 03/10/2019 8:47 AM [employer]-Medical * Full Code (Latest Code Status on [...] 9:14 AM 05/11/2020 5:01 AM Care Teams Admin Prog Coord Relationship Specialty Start Date End Date Kevin Meyer PA [address] [place] [address] PCP - General 03/23/19 Kevin Meyer PA [address] [place] [address] 03/23/19 Benja Esteban MD [address] [place] [address] Medical Oncologist/Plaster Maker Hematology and Oncology 02/28/20
--- OUTSIDE RECORDS SUMMARY | 2024-10-04 10:00 | XMS_ITS | Encounter Summary ---
Author Organization [facility] Address [address] [facility] [place] [address] Phone Care Team Providers Care Administrative Resources Associate Name Role Phone Kevin Meyer Primary Care Provider [phone] Amy Allen APRN, BOOT TURNER Unavailable + [phone] Dawit MARISCAL MD, Courtney Unavailable [phone] Brad Bone MD Unavailable [phone] Vanda Jimenez APRN, BOOT TURNER Unavailable Min Mario MD Unavailable Encounter Details Date Type Department Care Team (Latest Contact Info) Description 02/25/2023 Transcribe Orders [facility] Preop/Pacu II [address] [place] [address] Tavo Polo MD PhD [address] [place] [address] Abnormal echocardiogram (Primary Dx); Preprocedural [...] st Contact Info) Description 02/02/2025 10:15 AM BEAD WRAPPER Office Visit [facility] [address] [place] [phone] Min Mario MD [address], [facility] [address] [place] [address] documented as of this encounter Results * (ABNORMAL) BASIC METABOLIC PANEL W/ CALCIUM TOTAL (04/16/2023 3:23 PM BEAD WRAPPER) SODIUM 137 136 - 145 mmol/L 04/16/2023 5:06 PM [facility] POTASSIUM 3.5 3.5 - 5.1 mmol/L 04/16/2023 5:06 PM [facility] CHLORIDE 100 98 - 107 mmol/L 04/16/2023 5:06 PM [facility] CO2, VENOUS 29 22 - 30 mmol/L 04/16/2023 5:06 PM [facility] ANION GAP 11.5 <18.0 mmol/L 04/16/2023 5:06 PM [facility] GLUCOSE 92 70 - 99 mg/dL 04/16/2023 5:06 PM [facility] BUN 7(L) 8 - 26 mg/dL 04/16/2023 5:06 PM [facility] CREATININE, BLOOD 1.00 0.70 - 1.30 mg/dL 04/16/2023 5:06 PM [facility] BUN/CREATININE RATIO 7(L) 12 - 20 ratio 04/16/2023 5:06 PM [facility] CALCIUM 9.1 8.7 - 10.5 mg/dL 04/16/2023 5:06 PM [facility] IS THE PATIENT REQUIRED TO BE FASTING? No 04/16/2023 5:06 PM BEAD WRAPPER [facility] GFR, ESTIMATED >60 >=60 04/16/2023 5:06 PM BEAD WRAPPER [facility] Comment: Creatinine Clearance is the preferred criteria for selecting drug dose adjustments in renally impaired patients. The GFR is provided as additional pertinent clinical information. GFR is reported in mL/min/1.73 sq m. Calculation based on the Chronic Kidney Disease Epidemiology Collaboration (CKD- EPI) equation refit without adjustment for race. GFR, EST. >60 >=60 024 5:06 PM BEAD WRAPPER [facility] GFR, EST. NONAFRICAN >60 >=60 04/16/2023 5:06 PM BEAD WRAPPER [facility] Blood Venipuncture / Unknown 04/16/2023 3:23 PM BEAD WRAPPER 04/16/2023 4:25 PM BEAD WRAPPER Tavo Polo MD PhD CHEMISTRY ORDERABLES Final Result [facility] [address] [place] [address] documented in this encounter Visit Diagnoses Diagnosis Abnormal echocardiogram- Primary Nonspecific (abnormal) findings on radiological and other examination of other intrathoracic organs Preprocedural cardiovascular examination Pre-operative cardiovascular examination documented in this encounter Care Teams Administrative Resources Associate Relationship Specialty Start Date End Date Kevin Meyer PAC [address] [place] [address] PCP - General Physician Crib Attendant 07/15/17 Amy Allen APRN, BOOT TURNER [address] [address] Nurse Practitioner Cardiology 01/27/23 09/29/24 Merlene Pastor III, MD [address] [place] [address] Consulting Physician Urology 10/28/21 Brad Bone MD [address] [place] [phone] Consulting Physician Neurology 09/04/22 Vanda Jimenez APRN, BOOT TURNER [address] [place] [address] Nurse Practitioner Advanced Practice Nurse 07/31/22 Min Mario MD [address] [address] Consulting Physician Urology 12/17/23 documented as of this encounter
--- OUTSIDE RECORDS SUMMARY | 2024-10-04 10:00 | XMS_ITS | Referral Summary ---
Author Organization [facility] al Address [address] [place] [address] Care Team Providers Care Research Methods Instructor Name Role Phone Kevin Meyer Primary Care Provider [phone] Kevin Meyer Unavailable [phone] Benja Esteban MD Unavailable [phone] Allergies Active Allergy Reactions Criticality Noted [...] 1 tablet (75 mcg total) by mouth snuff grinder and screener before breakfast Active venlafaxine XR (EFFEXOR-XR) 150 [...] (12/17/2020): Added automatically from request for surgery [id number] 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/13/2020 Overview (12/13/2020): Added automatically from request for surgery [id number] Malignant carcinoid tumor of the ileum Stimulant use disorder 05/31/2020 Severe alcohol use disorder 05/31/2020 PTSD (post-traumatic stress disorder) 05/31/2020 Chronic bilateral low back pain without sciatica 04/07/2020 Assessment & Plan (05/04/2020 12:54 PM POURER OFF): - flexeril 10mg TID PRN - [place] 10mg q4 PRN - lidocaine patch daily - avoid IV ketorelac and NSAIDs with starting lithium - heating packs Assessment & Plan (05/03/2020 9:56 AM POURER OFF): - flexeril 10mg TID PRN - [place] 10mg q4 PRN - lidocaine patch daily - avoid IV ketorelac and NSAIDs with starting lithium - heating packs Assessment & Plan (05/02/2020 11:56 AM POURER OFF): - flexeril 10mg TID PRN - [place] 10mg q4 PRN - lidocaine patch daily - avoid IV ketorelac and NSAIDs with starting lithium - heating packs Assessment & Plan (05/01/2020 10:58 AM POURER OFF): - flexeril 10mg TID PRN - [place] 10mg q4 PRN - lidocaine patch daily - avoid IV ketorelac and NSAIDs with starting lithium - heating pads Assessment & Plan (04/30/2020 12:17 PM POURER OFF): - flexeril 10mg TID PRN - [place] 10mg q4 PRN - lidocaine patch daily - avoid IV ketorelac and NSAIDs with starting lithium - heating pads Assessment & Plan (04/28/2020 8:01 AM POURER OFF): - flexeril 10mg TID PRN - [place] 10mg q4 PRN - lidocaine patch daily - avoid IV ketorelac and NSAIDs with starting lithium - heating pads Assessment & Plan (04/27/2020 8:47 AM POURER OFF): - flexeril 10mg TID PRN - [place] 10mg q4 PRN - lidocaine patch daily - avoid IV ketorelac and NSAIDs given ADILENE - heating pads Assessment & Plan (04/26/2020 10:11 AM POURER OFF): - flexeril 10mg TID PRN - [place] 10mg q4 PRN - lidocaine patch daily - avoid IV ketorelac and NSAIDs given ADILENE - heating pads Assessment & Plan (04/25/2020 9:45 AM POURER OFF): - flexeril 10mg TID PRN - [place] 10mg q4 PRN - lidocaine patch daily - avoid IV ketorelac and NSAIDs given ADILENE - heating pads Assessment & Plan (04/24/2020 9:49 AM POURER OFF): - flexeril 10mg TID PRN - [place] 10mg q4 PRN - lidocaine patch daily - avoid IV ketorelac and NSAIDs given [place]ILENE - heating pads Assessment & Plan (04/23/2020 10:21 AM POURER OFF): - flexeril 10mg TID PRN - [place] 10mg q4 PRN - lidocaine patch daily - avoid IV ketorelac and NSAIDs given ADILENE - heating pads Assessment & Plan (04/21/2020 8:38 AM POURER OFF): - flexeril 10mg TID PRN - [place] 10mg q4 PRN - lidocaine patch daily - avoid IV ketorelac and NSAIDs given ADILENE - heating pads Assessment & Plan (04/20/2020 12:05 PM POURER OFF): - flexeril 10mg TID PRN - [place] 10mg q4 PRN - lidocaine patch daily - avoid IV ketorelac and NSAIDs given ADILENE - heating pads Assessment & Plan (04/19/2020 9:46 AM POURER OFF): - flexeril 10mg TID PRN - [place] 10mg q4 PRN - lidocaine patch daily - avoid IV ketorelac and NSAIDs given ADILENE - heating pads Assessment & Plan (04/18/2020 10:09 AM POURER OFF): - flexeril 10mg TID PRN - [place] 10mg q4 PRN - lidocaine patch daily - avoid IV ketorelac and NSAIDs given ADILENE - heating pads Assessment & Plan (04/17/2020 9:31 AM POURER OFF): - flexeril 10mg TID PRN - [place] 10mg q4 PRN - lidocaine patch daily - avoid IV ketorelac and NSAIDs given ADILENE - heating pads Assessment & Plan (04/16/2020 11:51 AM POURER OFF): - flexeril 10mg TID PRN - [place] 10mg q4 PRN - lidocaine patch daily - avoid IV ketorelac and NSAIDs given ADILENE - heating pads Assessment & Plan (04/14/2020 9:57 AM POURER OFF): - flexeril 10mg TID PRN - [place] 10mg q4 PRN - lidocaine patch daily - avoid IV ketorelac and NSAIDs given ADILENE - heating pads Assessment & Plan (04/10/2020 10:04 PM POURER OFF): - flexeril 10mg TID PRN - [place] 10mg q4 PRN - lidocaine patch daily - avoid IV ketorelac and NSAIDs given ADILENE - heating pads Assessment & Plan (04/08/2020 3:23 PM POURER OFF): Patient endorsing exacerbation of chronic back pain [...] -PT Assessment & Plan (04/07/2020 6:23 AM POURER OFF): Patient endorsing exacerbation of chronic back pain and left ankle pain (had previous traumatic injury, required surgery). No other red flag symptoms/signs. Reports he has received injections in the past -Continue PRN norco, flexeril -Lidocaine patch to back -PT Depressive disorder 04/03/2020 Assessment & Plan (05/04/2020 12:54 PM POURER OFF): 54yo M with reported history of bipolar [...] more bright. Plan to discharge patient 05/04. [place] augmentation started with moderate improvements seen in depressive symptoms with ECT, titrated to 300 mg BID with level 0.6. - Continue OLANZapine, 20 mg, oral, Nightly, for depression - Continue Venlafaxine XR 150 mg PO daily, for depression - Continue lithium to 300 mg BID - [place] level 0.6 on 05/03 - This is [...] 05/04 Assessment & Plan (05/03/2020 9:56 AM POURER OFF): 54yo M with reported history of bipolar [...] more bright. Plan to discharge patient 05/04. [place] augmentation started with moderate improvements seen in depressive symptoms with ECT, titrated to 300 mg BID with level 0.6. - Continue OLANZapine, 20 mg, oral, Nightly, for depression - Continue Venlafaxine XR 150 mg PO daily, for depression - Continue lithium to 300 mg BID - [place] level 0.6 on 05/03 - This is [...] permission) Assessment & Plan (05/02/2020 11:56 AM POURER OFF): 54yo M with reported history of bipolar [...] permission) Assessment & Plan (05/01/2020 10:58 AM POURER OFF): 54yo M with reported history of bipolar [...] family Assessment & Plan (04/30/2020 12:17 PM POURER OFF): 54yo M with reported history of bipolar [...] family Assessment & Plan (04/28/2020 8:02 AM POURER OFF): 54yo M with reported history of bipolar [...] depression Assessment & Plan (04/27/2020 8:47 AM POURER OFF): 54yo M with reported history of bipolar [...] depression Assessment & Plan (04/26/2020 10:11 AM POURER OFF): 54yo M with reported history of bipolar [...] depression Assessment & Plan (04/25/2020 9:47 AM POURER OFF): 54yo M with reported history of bipolar [...] depression Assessment & Plan (04/24/2020 9:48 AM POURER OFF): 54yo M with reported history of bipolar [...] depression Assessment & Plan (04/23/2020 10:21 AM POURER OFF): 54yo M with reported history of bipolar [...] depression Assessment & Plan (04/21/2020 8:36 AM POURER OFF): 54yo M with reported history of bipolar [...] depression Assessment & Plan (04/20/2020 12:05 PM POURER OFF): 54yo M with reported history of bipolar [...] depression Assessment & Plan (04/19/2020 9:48 AM POURER OFF): 54yo M with reported history of bipolar [...] depression Assessment & Plan (04/18/2020 10:08 AM POURER OFF): 54yo M with reported history of bipolar [...] depression Assessment & Plan (04/17/2020 9:32 AM POURER OFF): 54yo M with reported history of bipolar [...] depression Assessment & Plan (04/16/2020 11:49 AM POURER OFF): 54yo M with reported history of bipolar [...] depression Assessment & Plan (04/14/2020 9:56 AM POURER OFF): 54yo M with reported history of bipolar [...] depression Assessment & Plan (04/13/2020 9:46 AM POURER OFF): 54yo M with reported history of bipolar [...] procedure Assessment & Plan (04/10/2020 3:25 PM POURER OFF): Presented to ED 04/02 with suicidal ideation, depression. Initially admitted to psychiatry for medication adjustment, received ECT x1 04/06 -Continue current meds: lexapro 5, effexor 112.5, olanzapine 20mg QHS - If COVID test is negative, transfer to Psychiatry floor. Assessment & Plan (04/08/2020 3:24 PM POURER OFF): Presented to ED 04/02 with suicidal ideation, depression. Initially admitted to psychiatry for medication adjustment, received ECT x1 04/06 -Psych consulted upon transfer to medicine but are following only peripherally over the weekend -Continue current meds: lexapro 5, effexor 112.5, olanzapine 20mg QHS -Psychiatry recommending discontinuing suicide precautions with 1:1 sitter Assessment & Plan (04/07/2020 6:14 AM POURER OFF): Presented to ED 04/02 with suicidal ideation, depression. Initially admitted to psychiatry for medication adjustment, received ECT x1 04/06 -Psych c/s upon transfer -Continue current meds: lexapro 5, effexor 112.5, olanzapine 20mg QHS -Suicide precautions, 1:1 sitter Assessment & Plan (04/12/2020 9:11 AM POURER OFF): 54yo M with reported history of bipolar [...] midnight Assessment & Plan (04/03/2020 2:04 PM POURER OFF): 54yo M with reported history of bipolar [...] ECT, will facilitate transfer to [facility] to facilitate ECT consult Uptitrate SSRI and otherwise continue home depakote and zyprexa (pt reports taking these medications daily for past several yrs) PRNs agitation and comfort Milieu, supportive, and group therapy Apprec intervention Obtain collateral Full code Dispo: home with GERD (gastroesophageal reflux disease) Assessment & Plan (05/04/2020 12:54 PM POURER OFF): Patient has a long history of GERD. - Protonix 40 mg daily Assessment & Plan (05/03/2020 9:56 AM POURER OFF): Patient has a long history of GERD. - Protonix 40 mg daily Assessment & Plan (05/02/2020 11:57 AM POURER OFF): Patient has a long history of GERD. - Protonix 40 mg daily Assessment & Plan (05/01/2020 10:58 AM POURER OFF): Patient has a long history of GERD. - Protonix 40 mg daily Assessment & Plan (04/30/2020 12:17 PM POURER OFF): Patient has a long history of GERD. - Protonix 40 mg daily Assessment & Plan (04/28/2020 8:00 AM POURER OFF): Patient has a long history of GERD. -Protonix 40 mg daily Assessment & Plan (04/27/2020 8:47 AM POURER OFF): Patient has a long history of GERD. -Protonix 40 mg daily Assessment & Plan (04/26/2020 10:11 AM POURER OFF): Patient has a long history of GERD. -Protonix 40 mg daily Assessment & Plan (04/25/2020 9:45 AM POURER OFF): Patient has a long history of GERD. -Protonix 40 mg daily Assessment & Plan (04/24/2020 9:48 AM POURER OFF): Patient has a long history of GERD. -Protonix 40 mg daily Assessment & Plan (04/23/2020 10:21 AM POURER OFF): Patient has a long history of GERD. -Protonix 40 mg daily Assessment & Plan (04/21/2020 8:37 AM POURER OFF): Patient has a long history of GERD. -Protonix 40 mg daily Assessment & Plan (04/20/2020 12:05 PM POURER OFF): Patient has a long history of GERD. -Protonix 40 mg daily Assessment & Plan (04/19/2020 9:46 AM POURER OFF): Patient has a long history of GERD. -Protonix 40 mg daily Assessment & Plan (04/18/2020 10:09 AM POURER OFF): Patient has a long history of GERD. -Protonix 40 mg daily Assessment & Plan (04/17/2020 9:31 AM POURER OFF): Patient has a long history of GERD. -Protonix 40 mg daily Assessment & Plan (04/16/2020 11:51 AM POURER OFF): Patient has a long history of GERD. -Protonix 40 mg daily Assessment & Plan (04/14/2020 9:56 AM POURER OFF): Patient has a long history of GERD. -Protonix 40 mg daily Assessment & Plan (04/10/2020 3:25 PM POURER OFF): Continue pantoprazole Assessment & Plan (04/08/2020 3:17 PM POURER OFF): Continue pantoprazole Assessment & Plan (04/07/2020 6:15 AM POURER OFF): Continue pantoprazole Assessment & Plan (04/03/2020 5:54 PM POURER OFF): Patient has a long history of GERD. -Protonix 40 mg daily Hypothyroidism 04/03/2020 Assessment & Plan (05/04/2020 12:54 PM POURER OFF): Patient carries a diagnosis of hypothyroidism for several years. He is currently treated on levothyroxine 75 mcg daily. - Repeat TFT tests in 6 weeks - continue levothyroxine 75 mcg daily Assessment & Plan (05/03/2020 9:56 AM POURER OFF): Patient carries a diagnosis of hypothyroidism for several years. He is currently treated on levothyroxine 75 mcg daily. - Repeat TFT tests in 6 weeks - continue levothyroxine 75 mcg daily Assessment & Plan (05/02/2020 11:57 AM POURER OFF): Patient carries a diagnosis of hyperthyroidism for several years. He is currently treated on levothyroxine 75 mcg daily. - Repeat TFT tests in 6 weeks - continue levothyroxine 75 mcg daily Assessment & Plan (05/01/2020 10:58 AM POURER OFF): Patient carries a diagnosis of hyperthyroidism for several years. He is currently treated on levothyroxine 75 mcg daily. - Repeat TFT tests in 6 weeks - continue levothyroxine 75 mcg daily Assessment & Plan (04/30/2020 12:17 PM POURER OFF): Patient carries a diagnosis of hyperthyroidism for several years. He is currently treated on levothyroxine 75 mcg daily. - Repeat TFT tests in 6 weeks - continue levothyroxine 75 mcg daily Assessment & Plan (04/28/2020 8:00 AM POURER OFF): Patient carries a diagnosis of hyperthyroidism for several years. He is currently treated on levothyroxine 75 mcg daily. - Repeat TFT tests in 6 weeks - continue levothyroxine 75 mcg daily Assessment & Plan (04/27/2020 8:47 AM POURER OFF): Patient carries a diagnosis of hyperthyroidism for several years. He is currently treated on levothyroxine 75 mcg daily. - Repeat TFT tests in 6 weeks - continue levothyroxine 75 mcg daily Assessment & Plan (04/26/2020 10:11 AM POURER OFF): Patient carries a diagnosis of hyperthyroidism for several years. He is currently treated on levothyroxine 75 mcg daily. - Repeat TFT tests in 6 weeks - continue levothyroxine 75 mcg daily Assessment & Plan (04/25/2020 9:45 AM POURER OFF): Patient carries a diagnosis of hyperthyroidism for several years. He is currently treated on levothyroxine 75 mcg daily. - Repeat TFT tests in 6 weeks - continue levothyroxine 75 mcg daily Assessment & Plan (04/24/2020 9:48 AM POURER OFF): Patient carries a diagnosis of hyperthyroidism for several years. He is currently treated on levothyroxine 75 mcg daily. - Repeat TFT tests in 6 weeks - continue levothyroxine 75 mcg daily Assessment & Plan (04/23/2020 10:21 AM POURER OFF): Patient carries a diagnosis of hyperthyroidism for several years. He is currently treated on levothyroxine 75 mcg daily. - Repeat TFT tests in 6 weeks - continue levothyroxine 75 mcg daily Assessment & Plan (04/21/2020 8:37 AM POURER OFF): Patient carries a diagnosis of hyperthyroidism for several years. He is currently treated on levothyroxine 75 mcg daily. - Repeat TFT tests in 6 weeks - continue levothyroxine 75 mcg daily Assessment & Plan (04/20/2020 12:05 PM POURER OFF): Patient carries a diagnosis of hyperthyroidism for several years. He is currently treated on levothyroxine 75 mcg daily. - Repeat TFT tests in 6 weeks - continue levothyroxine 75 mcg daily Assessment & Plan (04/19/2020 9:46 AM POURER OFF): Patient carries a diagnosis of hyperthyroidism for several years. He is currently treated on levothyroxine 75 mcg daily. - Repeat TFT tests in 6 weeks - continue levothyroxine 75 mcg daily Assessment & Plan (04/18/2020 10:09 AM POURER OFF): Patient carries a diagnosis of hyperthyroidism for several years. He is currently treated on levothyroxine 75 mcg daily. - Repeat TFT tests in 6 weeks - continue levothyroxine 75 mcg daily Assessment & Plan (04/17/2020 9:31 AM POURER OFF): Patient carries a diagnosis of hyperthyroidism for several years. He is currently treated on levothyroxine 75 mcg daily. - Repeat TFT tests in 6 weeks - continue levothyroxine 75 mcg daily Assessment & Plan (04/16/2020 11:51 AM POURER OFF): Patient carries a diagnosis of hyperthyroidism for several years. He is currently treated on levothyroxine 75 mcg daily. - Repeat TFT tests in 6 weeks - continue levothyroxine 75 mcg daily Assessment & Plan (04/14/2020 9:57 AM POURER OFF): Patient carries a diagnosis of hyperthyroidism for several years. He is currently treated on levothyroxine 75 mcg daily. - Repeat TFT tests in 6 weeks - continue levothyroxine 75 mcg daily Assessment & Plan (04/10/2020 3:25 PM POURER OFF): 04/02: TSH 6.49, T4 WNL at 1.38 Continue synthroid 75mcg; repeat TFTs 6-8 weeks Assessment & Plan (04/08/2020 3:17 PM POURER OFF): 04/02: TSH 6.49, T4 WNL at 1.38 Continue synthroid 75mcg; repeat TFTs 6-8 weeks Assessment & Plan (04/07/2020 6:16 AM POURER OFF): 04/02: TSH 6.49, T4 WNL at 1.38 Continue synthroid 75mcg; repeat TFTs 6-8 weeks Assessment & Plan (04/10/2020 9:35 PM POURER OFF): Patient carries a diagnosis of hyperthyroidism for several years. He is currently treated on levothyroxine 75 mcg daily. - Repeat TFT tests in 6 weeks - continue levothyroxine 75 mcg daily Hyperlipemia 04/03/2020 Assessment & Plan (05/04/2020 12:55 PM POURER OFF): Has a stated history of hyperlipidemia has been stably treated with atorvastatin 40 mg daily for many years. Patient's LDL low on lipid panel. Notable elevated triglycerides but not fasting sample. - atorvastatin 40 mg daily - fenofibrate 145mg daily Assessment & Plan (05/03/2020 9:56 AM POURER OFF): Has a stated history of hyperlipidemia has been stably treated with atorvastatin 40 mg daily for many years. Patient's LDL low on lipid panel. Notable elevated triglycerides but not fasting sample. - atorvastatin 40 mg daily - fenofibrate 145mg daily Assessment & Plan (05/02/2020 11:57 AM POURER OFF): Has a stated history of hyperlipidemia has been stably treated with atorvastatin 40 mg daily for many years. Patient's LDL low on lipid panel. Notable elevated triglycerides but not fasting sample. - atorvastatin 40 mg daily - fenofibrate 145mg daily Assessment & Plan (05/01/2020 10:58 AM POURER OFF): Has a stated history of hyperlipidemia has been stably treated with atorvastatin 40 mg daily for many years. Patient's LDL low on lipid panel. Notable elevated triglycerides but not fasting sample. - atorvastatin 40 mg daily - tricor 145mg daily Assessment & Plan (04/30/2020 12:17 PM POURER OFF): Has a stated history of hyperlipidemia has been stably treated with atorvastatin 40 mg daily for many years. Patient's LDL low on lipid panel. Notable elevated triglycerides but not fasting sample. - atorvastatin 40 mg daily - tricor 145mg daily Assessment & Plan (04/28/2020 8:01 AM POURER OFF): Has a stated history of hyperlipidemia has been stably treated with atorvastatin 40 mg daily for many years. Patient's LDL low on lipid panel. Notable elevated triglycerides but not fasting sample. - atorvastatin 40 mg daily - tricor 145mg daily Assessment & Plan (04/27/2020 8:47 AM POURER OFF): Has a stated history of hyperlipidemia has been stably treated with atorvastatin 40 mg daily for many years. Patient's LDL low on lipid panel. Notable elevated triglycerides but not fasting sample. - atorvastatin 40 mg daily - tricor 145mg daily Assessment & Plan (04/26/2020 10:11 AM POURER OFF): Has a stated history of hyperlipidemia has been stably treated with atorvastatin 40 mg daily for many years. Patient's LDL low on lipid panel. Notable elevated triglycerides but not fasting sample. - atorvastatin 40 mg daily - tricor 145mg daily Assessment & Plan (04/25/2020 9:45 AM POURER OFF): Has a stated history of hyperlipidemia has [...] daily Assessment & Plan (04/24/2020 9:48 AM POURER OFF): Has a stated history of hyperlipidemia has [...] daily Assessment & Plan (04/23/2020 10:21 AM POURER OFF): Has a stated history of hyperlipidemia has [...] daily Assessment & Plan (04/21/2020 8:38 AM POURER OFF): Has a stated history of hyperlipidemia has [...] daily Assessment & Plan (04/20/2020 12:05 PM POURER OFF): Has a stated history of hyperlipidemia has [...] daily Assessment & Plan (04/19/2020 9:46 AM POURER OFF): Has a stated history of hyperlipidemia has [...] daily Assessment & Plan (04/18/2020 10:09 AM POURER OFF): Has a stated history of hyperlipidemia has [...] daily Assessment & Plan (04/17/2020 9:31 AM POURER OFF): Has a stated history of hyperlipidemia has [...] daily Assessment & Plan (04/16/2020 11:51 AM POURER OFF): Has a stated history of hyperlipidemia has [...] daily Assessment & Plan (04/14/2020 9:56 AM POURER OFF): Has a stated history of hyperlipidemia has [...] daily Assessment & Plan (04/13/2020 9:46 AM POURER OFF): Has a stated history of hyperlipidemia has [...] daily Assessment & Plan (04/10/2020 3:25 PM POURER OFF): Continue atorvastatin 40 Assessment & Plan (04/08/2020 3:17 PM POURER OFF): Continue atorvastatin 40 Assessment & Plan (04/07/2020 6:15 AM POURER OFF): Continue atorvastatin 40 Assessment & Plan (04/12/2020 9:03 AM POURER OFF): Has a stated history of hyperlipidemia has [...] (08/31/2018): Added automatically from request for surgery [id number] Assessment & Plan (09/06/2018 12:49 PM CDT): [...] 04/10/2020 Assessment & Plan (05/04/2020 12:55 PM POURER OFF): Cr 1.3 -> 1.22 resolving. Baseline <1. - encourage fluids - avoid nephrotoxic meds Assessment & Plan (05/03/2020 9:56 AM POURER OFF): Cr 1.3 -> 1.22 resolving. Baseline <1. - encourage fluids - avoid nephrotoxic meds Assessment & Plan (05/02/2020 11:57 AM POURER OFF): Cr 1.3 -> 1.22 resolving. Baseline <1. - encourage fluids - avoid nephrotoxic meds Assessment & Plan (05/01/2020 10:58 AM POURER OFF): Cr 1.3 -> 1.22 resolving. Baseline <1. - encourage fluids - avoid nephrotoxic meds Assessment & Plan (04/19/2020 9:46 AM POURER OFF): Cr 1.3 -> 1.22 resolving. Baseline <1. - encourage fluids - avoid nephrotoxic meds Assessment & Plan (04/18/2020 10:09 AM POURER OFF): Cr 1.3 -> 1.22 resolving. Baseline <1. - encourage fluids - avoid nephrotoxic meds Assessment & Plan (04/16/2020 11:51 AM POURER OFF): Cr 1.3 -> 1.22 resolving. Baseline <1. - encourage fluids - avoid nephrotoxic meds Assessment & Plan (04/14/2020 9:57 AM POURER OFF): Cr 1.3 -> 1.22 resolving. Baseline <1. - encourage fluids - avoid nephrotoxic meds Assessment & Plan (04/13/2020 9:47 AM POURER OFF): Cr 1.3 -> 1.22 resolving. Baseline <1. - encourage fluids - avoid nephrotoxic meds Assessment & Plan (04/12/2020 9:04 AM POURER OFF): Cr 1.3 -> 1.22 resolving. Baseline <1. - encourage fluids - avoid nephrotoxic meds Diarrhea 04/10/2020 04/20/2020 Assessment & Plan (05/04/2020 12:55 PM POURER OFF): Patient recently had constipation, was treated with BID miralax and senna- docusate. Was having diarrhea last week so scheduled bowel regimen discontinued. - discontinued daily senna-docusate - miralax PRN Assessment & Plan (05/03/2020 9:56 AM POURER OFF): Patient recently had constipation, was treated with BID miralax and senna- docusate. Was having diarrhea last week so scheduled bowel regimen discontinued. - discontinued daily senna-docusate - miralax PRN Assessment & Plan (05/01/2020 10:59 AM POURER OFF): Patient recently had constipation, was treated with BID miralax and senna- docusate. Was having diarrhea last week so scheduled bowel regimen discontinued. - discontinued daily senna-docusate - miralax PRN Assessment & Plan (04/19/2020 9:47 AM POURER OFF): Patient recently had constipation, was treated with BID miralax and senna- docusate. Was having diarrhea last week so scheduled bowel regimen discontinued. - discontinued daily senna-docusate - miralax PRN Assessment & Plan (04/16/2020 11:52 AM POURER OFF): Patient recently had constipation, was treated with BID miralax and senna- docusate. Was having diarrhea last week so scheduled bowel regimen discontinued. - discontinue daily senna-docusate - miralax PRN Assessment & Plan (04/14/2020 9:57 AM POURER OFF): Patient recently had constipation, was treated with BID miralax and senna- docusate. Endorsing nonbloody diarrhea for last 2 days. - discontinue daily senna-docusate - miralax PRN Assessment & Plan (04/10/2020 10:09 PM POURER OFF): Patient recently had constipation, was treated with BID miralax and senna- docusate. Endorsing nonbloody diarrhea for last 2 days. - discontinue daily senna-docusate - miralax PRN Ventral hernia without obstr uction or gangrene 08/31/2018 04/20/2020 Overview (08/31/2018): Added automatically from request for surgery [id number] Assessment & Plan (09/06/2018 12:51 PM CDT): [...] week 02/01/2021 How often do you attend [facility] or jewish services? More than 4 times per year 02/01/2021 Do you belong to any clubs o r organizations such as voodoo groups, unions, fraternal or athletic groups, or [...] Date Recorded PHQ-2 Total Score 4 04/03/2020 [facility] [...] place to sleep or slept in a long term (including now)? No 02/01/2021 Personal Safety Answer Date Recorded Have you ever been in or are you currently in a harmful physical or emotional relationship or is someone making you feel afraid or unsafe? Denies 03/11/2024 Sex and Gender Information Value Date Recorded Sex Assigned at Not on file Legal Sex Male 3:25 AM POURER OFF Gender Identity Male 03/26/2021 11:53 AM POURER OFF Sexual Orientation Choose not to disclose 2021 11:53 AM POURER OFF Occupation Industry Job Start Date Job End Date disabled Not on file Not on file Not on file Last Filed Vital Signs Vital Sign Reading Time Taken Comments Blood Pressure 126/74 04/06/2024 9:02 AM POURER OFF Pulse 68 04/06/2024 9:02 AM POURER OFF Temperature 36.2 C (97.1 F) 04/06/2024 9:02 AM POURER OFF Respiratory Rate 16 03/11/2024 4:45 PM POURER OFF Oxygen Saturation 95% 04/06/2024 9:02 AM POURER OFF Inhaled Oxygen Concentration - - Weight 97.3 kg (214 lb 9.6 oz) 04/06/2024 9:02 A M POURER OFF Height 182.9 cm (6') 04/06/2024 9:02 AM POURER OFF Body Mass Index 29.1 04/06/2024 9:02 AM POURER OFF Plan of Treatment Not on file Medical Devices Implanted Type Area Tape Cutting Machine Operator Device Identifier Shelf Expiration Date Model / Serial / Lot [employer]/C R Bard [id number] Ventralight St Sepra 4.5in Uncoated Monofilament Lightweight - [id number] Implanted:Qty: 1 on 09/09/2018 by Xavier Aviles MD at [facility] N/A: Abdomen [employer] Bard 12/19/2019 [id number] / / [id number] [employer] [id number] Mini Ignite Power Mix Injectable Graft 4ml Synthetic Tissue - [id number] - [id number] Implanted:Qty: 1 on 01/29/2021 by Don Kevin MD at [facility] [employer] 07/08/2023 [id number] / [id number] / [employer] [id number] Medline Unite 7mm 6.5mm 80mm 16mm Cannulated Color Coded Headless - [id number] Implanted:Qty: 1 on 01/29/2021 by Don Kevin MD at [facility] Left: Foot [employer] [id number] / / [employer] [id number] Medline Unite 6.5mm 90mm 16mm Cannulated Color Coded Headless - [id number] Implanted:Qty: 1 on 01/29/2021 by Don Kevin MD at [facility] Medicine Left: Foot [employer] [id number] / / Medline [employer] [id number] Screw Bone L50mm Od4.5mm Foot Ankle Cannulated Color Coded Osteotomy - [id number] Implanted:Qty: 1 on 01/29/2021 by Don Kevin MD at [facility] Left: Foot [employer] [id number] / / 20x20 Nitnol Staple Implanted:Qty: 1 on 01/29/2021 by Don Kevin MD at [facility] Left: Foot [employer] Description:[id number] [employer] [id number] Bit 3.3mm Drill Cannulated Ao Quick Connect Color Coded - [id number] Implanted:Qty: 1 on 01/29/2021 by Don Kevin MD at [facility] Left: Foot [employer] [id number] / / Procedures Procedure Name Priority Date/Time [...] data last revised 2018. Testing performed by: [facility], [address] [place] [address], [place]., [address] Blood specimen (specimen) 12/20/2019 2:31 PM CDT 12/20/2019 6:54 PM CDT us Raoul Best MD LAB BLOOD ORDERABLES Final Re sult YULY HUNTER SAIMA [facility] [place] [address] * COLONOSCOPY (11/18/2017 7:41 AM CDT) Anatomical Region Laterality Modality Other Narrative Procedure Note Alexander Pitts MD - 11/18/2017 7:41 AM CDT [facility] Patient Name: Baljeet Herman Procedure Date: 11/18/2017 7:41 AM Date of : 1965 Admit Type: Outpatient Age: 52 Gender: Male Attending MD: Alexander Pitts MD Room: [facility]COPY ROOM 2 Note Status: Finalized [...] passed under direct vision.The Pediatric Colonoscope PCF-H190L [id number] was introduced through the anus and advanced [...] malignant neoplasm of largeintestine CPT copyright 2017 [employer]. All rights reserved. The codes documented in this report are preliminary and upon elevator dispatcher reviewmay be revised to meet current compliance requirements. Recognized by the [place] [employer] for promoting quality in endoscopy Alexander Pitts MD ENDOSCOPY PROCEDURES Final Result from Last 3 Months or Most Recently Relevant to Health Maintenance Insurance MEDICARE IDPA IDPA [facility] MEDICARE ADVANTAGE [facility] MEDICARE ADVANTAGE IDPA Advance Directives For more information, please contact: [phone] Documents on File Type Date Recorded Patient Database Design Analyst Expl anation ADVANCE DIRECTIVE 03/10/2019 8:47 AM John [employer] [facility] [employer] * Full Code (Latest Code Status on [...] 9:14 AM 05/11/2020 5:01 AM Care Teams Research Methods Instructor Relationship Specialty Start Date End Date Kevin Meyer PA [address] [place] [address] PCP - General 03/23/19 Kevin Meyer PA [address] [place] [address] 03/23/19 Benja Esteban MD [address] [place] [address] Medical Oncologist/Visualization Developer Hematology and Oncology 02/28/20
== END 2024-10-04 09:44 | disposition home or self-care (01) ==
PROVIDERS: PCP Physician Assistant; Visit Provider Internal Medicine Hematology & Oncology
DX: C7A.022 Malignant carcinoid tumor of the ascending colon (principal); R91.8 Other nonspecific abnormal finding of lung field; N20.0 Calculus of kidney
CPT/HCPCS: 74177; Q9967

== ENCOUNTER 2024-10-20 11:57 | Emergency (ER) | payer MEDICARE, MEDICAID, SELFPAY ==
--- NOTE | ~2024-10-20 | CT_ITS ---
EXAMINATION: CT diagnostic chest wo con DATE: 10/20/2024 14:42 INDICATION: rule out metastasis TECHNIQUE: Computed tomography (CT) of the chest was performed without intravenous contrast. Addition al 3D reconstructions utilizing coronal maximum intensity projection (MIP) were performed. Automated exposure control and iterative reconstruction technique were employed. The dose-length product was 30 7.73 mGy-cm. COMPARISON: 09/22/2024 and 07/04/2024 FINDINGS: Mild left basilar atelectasis along the elevated left hemidiaphragm. Interval decrease in size of a p reviously 4 mm, currently to a 3 mm nodule at the superior segment of the right lower lobe. No interv al change in a few additional 3 mm or smaller nodules in the right upper, middle and lower lobes. No pneumonia, pulmonary edema, pleural effusion or pneumothorax. Heart size is normal. Small of atherosc lerotic coronary artery calcific lesion. No pericardial effusion. Thoracic aorta is normal in caliber . No pathologically enlarged thoracic lymphadenopathy. And mild bilateral gynecomastia. Mild upper th oracic levoscoliosis with mild to moderate thoracic spondylosis. Suggestion of old healed sternal and manubrial fracture deformities. Anterior plate-screw fixation for a C5-C7 anterior spinal fusion mor e completely visualized on the patternmaker apprentice metal topogram. Chronic reticular pattern of increased attenuation in the posterior right hepatic lobe represent dystrophic calcification or sequela prior embolization. Co rrelate with clinical history. IMPRESSION: 1. No change to slight decrease in size of a few 3 mm or smaller pulmonary nodules in the right lung. If the patient is low risk for lung cancer, no follow-up is needed. If the patient is high risk (i.e ., history of smoking or asbestos or significant radiation exposure), optional follow-up chest CT cou ld be considered at 12 months. 2. Persistent mild elevation left hemidiaphragm with associated mild left basilar atelectasis. Reviewed, dictated and finalized at location A. IMPRESSION: 1. No change to slight decrease in size of a few 3 mm or smaller pulmonary nodu les in the right lung. If the patient is low risk for lung cancer, no follow-up is needed. If the patient is high risk (i.e., history of smoking or asbestos o r significant radiation exposure), optional follow-up chest CT could be conside red at 12 months. 2. Persistent mild elevation left hemidiaphragm with associated mild left basil ar atelectasis.
--- NOTE | ~2024-10-20 | XR_ITS ---
XR chest 1V portable 10/20/2024 12:28 Indication: Cough Procedure: AP portable chest Comparison: Comparison to multiple prior studies sequentially, with oldest reviewed study dated 06/05. Findings: Heart size normal. Left basilar atelectasis/scarring. No focal pneumonia, edema, pleural ef fusion or pneumothorax. Impression: 1: No acute cardiopulmonary disease. Reviewed, dictated and finalized at location B. Impression: 1: No acute cardiopulmonary disease.
[2024-10-20 11:58] VITALS: BP 165/88; PULSE 75; RESP 18; TEMP 36.4; O2SAT 100
--- OUTSIDE RECORDS SUMMARY | 2024-10-20 12:00 | XMS_ITS | Clinical Summary ---
Author Organization [facility] Address [address] [place] [address] Care Team Providers Care Ventilation Equipment Tender Name Role Phone Keivn Meyer Primary Care Provider [phone] Kevin Meyer Unavailable [phone] Benja Esteban MD Unavailable [phone] Allergies Active Allergy Reactions Criticality Noted [...] 1 tablet (75 mcg total) by mouth hospice nurse before breakfast Active venlafaxine XR (EFFEXOR-XR) 150 [...] (12/17/2020): Added automatically from request for surgery [id number] 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/13/2020 Overview (12/13/2020): Added automatically from request for surgery [id number] Malignant carcinoid tumor of the ileum Stimulant use disorder 05/31/2020 Severe alcohol use disorder 05/31/2020 PTSD (post-traumatic stress disorder) 05/31/2020 Chronic bilateral low back pain without sciatica 04/07/2020 Assessment & Plan (05/04/2020 12:54 PM EMT PARAMEDIC): - flexeril 10mg TID PRN - [place] 10mg q4 PRN - lidocaine patch daily - avoid IV ketorelac and NSAIDs with starting lithium - heating packs Assessment & Plan (05/03/2020 9:56 AM EMT PARAMEDIC): - flexeril 10mg TID PRN - [place] 10mg q4 PRN - lidocaine patch daily - avoid IV ketorelac and NSAIDs with starting lithium - heating packs Assessment & Plan (05/02/2020 11:56 AM EMT PARAMEDIC): - flexeril 10mg TID PRN - [place] 10mg q4 PRN - lidocaine patch daily - avoid IV ketorelac and NSAIDs with starting lithium - heating packs Assessment & Plan (05/01/2020 10:58 AM EMT PARAMEDIC): - flexeril 10mg TID PRN - NORCO 10mg q4 PRN - lidocaine patch daily - avoid IV ketorelac and NSAIDs with starting lithium - heating pads Assessment & Plan (04/30/2020 12:17 PM EMT PARAMEDIC): - flexeril 10mg TID PRN - NORCO 10mg q4 PRN - lidocaine patch daily - avoid IV ketorelac and NSAIDs with starting lithium - heating pads Assessment & Plan (04/28/2020 8:01 AM EMT PARAMEDIC): - flexeril 10mg TID PRN - NORCO 10mg q4 PRN - lidocaine patch daily - avoid IV ketorelac and NSAIDs with starting lithium - heating pads Assessment & Plan (04/27/2020 8:47 AM EMT PARAMEDIC): - flexeril 10mg TID PRN - NORCO 10mg q4 PRN - lidocaine patch daily - avoid IV ketorelac and NSAIDs given ADILENE - heating pads Assessment & Plan (04/26/2020 10:11 AM EMT PARAMEDIC): - flexeril 10mg TID PRN - NORCO 10mg q4 PRN - lidocaine patch daily - avoid IV ketorelac and NSAIDs given ADILENE - heating pads Assessment & Plan (04/25/2020 9:45 AM EMT PARAMEDIC): - flexeril 10mg TID PRN - NORCO 10mg q4 PRN - lidocaine patch daily - avoid IV ketorelac and NSAIDs given ADILENE - heating pads Assessment & Plan (04/24/2020 9:49 AM EMT PARAMEDIC): - flexeril 10mg TID PRN - NORCO 10mg q4 PRN - lidocaine patch daily - avoid IV ketorelac and NSAIDs given ADILENE - heating pads Assessment & Plan (04/23/2020 10:21 AM EMT PARAMEDIC): - flexeril 10mg TID PRN - NORCO 10mg q4 PRN - lidocaine patch daily - avoid IV ketorelac and NSAIDs given ADILENE - heating pads Assessment & Plan (04/21/2020 8:38 AM EMT PARAMEDIC): - flexeril 10mg TID PRN - NORCO 10mg q4 PRN - lidocaine patch daily - avoid IV ketorelac and NSAIDs given ADILENE - heating pads Assessment & Plan (04/20/2020 12:05 PM EMT PARAMEDIC): - flexeril 10mg TID PRN - NORCO 10mg q4 PRN - lidocaine patch daily - avoid IV ketorelac and NSAIDs given ADILENE - heating pads Assessment & Plan (04/19/2020 9:46 AM EMT PARAMEDIC): - flexeril 10mg TID PRN - NORCO 10mg q4 PRN - lidocaine patch daily - avoid IV ketorelac and NSAIDs given ADILENE - heating pads Assessment & Plan (04/18/2020 10:09 AM EMT PARAMEDIC): - flexeril 10mg TID PRN - NORCO 10mg q4 PRN - lidocaine patch daily - avoid IV ketorelac and NSAIDs given ADILENE - heating pads Assessment & Plan (04/17/2020 9:31 AM EMT PARAMEDIC): - flexeril 10mg TID PRN - NORCO 10mg q4 PRN - lidocaine patch daily - avoid IV ketorelac and NSAIDs given ADILENE - heating pads Assessment & Plan (04/16/2020 11:51 AM EMT PARAMEDIC): - flexeril 10mg TID PRN - NORCO 10mg q4 PRN - lidocaine patch daily - avoid IV ketorelac and NSAIDs given ADILENE - heating pads Assessment & Plan (04/14/2020 9:57 AM EMT PARAMEDIC): - flexeril 10mg TID PRN - NORCO 10mg q4 PRN - lidocaine patch daily - avoid IV ketorelac and NSAIDs given ADILENE - heating pads Assessment & Plan (04/10/2020 10:04 PM EMT PARAMEDIC): - flexeril 10mg TID PRN - NORCO 10mg q4 PRN - lidocaine patch daily - avoid IV ketorelac and NSAIDs given ADILENE - heating pads Assessment & Plan (04/08/2020 3:23 PM EMT PARAMEDIC): Patient endorsing exacerbation of chronic back pain [...] -PT Assessment & Plan (04/07/2020 6:23 AM EMT PARAMEDIC): Patient endorsing exacerbation of chronic back pain and left ankle pain (had previous traumatic injury, required surgery). No other red flag symptoms/signs. Reports he has received injections in the past -Continue PRN norco, flexeril -Lidocaine patch to back -PT Depressive disorder 04/03/2020 Assessment & Plan (05/04/2020 12:54 PM EMT PARAMEDIC): 54yo M with reported history of bipolar [...] more bright. Plan to discharge patient 05/04. [place] augmentation started with moderate improvements seen in depressive symptoms with ECT, titrated to 300 mg BID with level 0.6. - Continue OLANZapine, 20 mg, oral, Nightly, for depression - Continue Venlafaxine XR 150 mg PO daily, for depression - Continue lithium to 300 mg BID - [place] level 0.6 on 05/03 - This is [...] 05/04 Assessment & Plan (05/03/2020 9:56 AM EMT PARAMEDIC): 54yo M with reported history of bipolar [...] more bright. Plan to discharge patient 05/04. [place] augmentation started with moderate improvements seen in depressive symptoms with ECT, titrated to 300 mg BID with level 0.6. - Continue OLANZapine, 20 mg, oral, Nightly, for depression - Continue Venlafaxine XR 150 mg PO daily, for depression - Continue lithium to 300 mg BID - [place] level 0.6 on 05/03 - This is [...] permission) Assessment & Plan (05/02/2020 11:56 AM EMT PARAMEDIC): 54yo M with reported history of bipolar [...] permission) Assessment & Plan (05/01/2020 10:58 AM EMT PARAMEDIC): 54yo M with reported history of bipolar [...] family Assessment & Plan (04/30/2020 12:17 PM EMT PARAMEDIC): 54yo M with reported history of bipolar [...] family Assessment & Plan (04/28/2020 8:02 AM EMT PARAMEDIC): 54yo M with reported history of bipolar [...] depression Assessment & Plan (04/27/2020 8:47 AM EMT PARAMEDIC): 54yo M with reported history of bipolar [...] depression Assessment & Plan (04/26/2020 10:11 AM EMT PARAMEDIC): 54yo M with reported history of bipolar [...] depression Assessment & Plan (04/25/2020 9:47 AM EMT PARAMEDIC): 54yo M with reported history of bipolar [...] depression Assessment & Plan (04/24/2020 9:48 AM EMT PARAMEDIC): 54yo M with reported history of bipolar [...] depression Assessment & Plan (04/23/2020 10:21 AM EMT PARAMEDIC): 54yo M with reported history of bipolar [...] depression Assessment & Plan (04/21/2020 8:36 AM EMT PARAMEDIC): 54yo M with reported history of bipolar [...] depression Assessment & Plan (04/20/2020 12:05 PM EMT PARAMEDIC): 54yo M with reported history of bipolar [...] depression Assessment & Plan (04/19/2020 9:48 AM EMT PARAMEDIC): 54yo M with reported history of bipolar [...] depression Assessment & Plan (04/18/2020 10:08 AM EMT PARAMEDIC): 54yo M with reported history of bipolar [...] depression Assessment & Plan (04/17/2020 9:32 AM EMT PARAMEDIC): 54yo M with reported history of bipolar [...] depression Assessment & Plan (04/16/2020 11:49 AM EMT PARAMEDIC): 54yo M with reported history of bipolar [...] depression Assessment & Plan (04/14/2020 9:56 AM EMT PARAMEDIC): 54yo M with reported history of bipolar [...] depression Assessment & Plan (04/13/2020 9:46 AM EMT PARAMEDIC): 54yo M with reported history of bipolar [...] for ECT by cardiology, no diagnosis of ischemia/UT, no focal wall movement abnormalities on echo, [...] procedure Assessment & Plan (04/10/2020 3:25 PM EMT PARAMEDIC): Presented to ED 04/02 with suicidal ideation, depression. Initially admitted to psychiatry for medication adjustment, received ECT x1 04/06 -Continue current meds: lexapro 5, effexor 112.5, olanzapine 20mg QHS - If COVID test is negative, transfer to Psychiatry floor. Assessment & Plan (04/08/2020 3:24 PM EMT PARAMEDIC): Presented to ED 04/02 with suicidal ideation, depression. Initially admitted to psychiatry for medication adjustment, received ECT x1 04/06 -Psych consulted upon transfer to medicine but are following only peripherally over the weekend -Continue current meds: lexapro 5, effexor 112.5, olanzapine 20mg QHS -Psychiatry recommending discontinuing suicide precautions with 1:1 sitter Assessment & Plan (04/07/2020 6:14 AM EMT PARAMEDIC): Presented to ED 04/02 with suicidal ideation, depression. Initially admitted to psychiatry for medication adjustment, received ECT x1 04/06 -Psych c/s upon transfer -Continue current meds: lexapro 5, effexor 112.5, olanzapine 20mg QHS -Suicide precautions, 1:1 sitter Assessment & Plan (04/12/2020 9:11 AM EMT PARAMEDIC): 54yo M with reported history of bipolar [...] for ECT by cardiology, no diagnosis of ischemia/UT, no focal wall movement abnormalities on echo, [...] midnight Assessment & Plan (04/03/2020 2:04 PM EMT PARAMEDIC): 54yo M with reported history of bipolar [...] interested in ECT, will facilitate transfer to [facility] to facilitate ECT consult Uptitrate SSRI and otherwise continue home depakote and zyprexa (pt reports taking these medications daily for past several yrs) PRNs agitation and comfort Milieu, supportive, and group therapy Apprec intervention Obtain collateral Full code Dispo: home with GERD (gastroesophageal reflux disease) Assessment & Plan (05/04/2020 12:54 PM EMT PARAMEDIC): Patient has a long history of GERD. - Protonix 40 mg daily Assessment & Plan (05/03/2020 9:56 AM EMT PARAMEDIC): Patient has a long history of GERD. - Protonix 40 mg daily Assessment & Plan (05/02/2020 11:57 AM EMT PARAMEDIC): Patient has a long history of GERD. - Protonix 40 mg daily Assessment & Plan (05/01/2020 10:58 AM EMT PARAMEDIC): Patient has a long history of GERD. - Protonix 40 mg daily Assessment & Plan (04/30/2020 12:17 PM EMT PARAMEDIC): Patient has a long history of GERD. - Protonix 40 mg daily Assessment & Plan (04/28/2020 8:00 AM EMT PARAMEDIC): Patient has a long history of GERD. -Protonix 40 mg daily Assessment & Plan (04/27/2020 8:47 AM EMT PARAMEDIC): Patient has a long history of GERD. -Protonix 40 mg daily Assessment & Plan (04/26/2020 10:11 AM EMT PARAMEDIC): Patient has a long history of GERD. -Protonix 40 mg daily Assessment & Plan (04/25/2020 9:45 AM EMT PARAMEDIC): Patient has a long history of GERD. -Protonix 40 mg daily Assessment & Plan (04/24/2020 9:48 AM EMT PARAMEDIC): Patient has a long history of GERD. -Protonix 40 mg daily Assessment & Plan (04/23/2020 10:21 AM EMT PARAMEDIC): Patient has a long history of GERD. -Protonix 40 mg daily Assessment & Plan (04/21/2020 8:37 AM EMT PARAMEDIC): Patient has a long history of GERD. -Protonix 40 mg daily Assessment & Plan (04/20/2020 12:05 PM EMT PARAMEDIC): Patient has a long history of GERD. -Protonix 40 mg daily Assessment & Plan (04/19/2020 9:46 AM EMT PARAMEDIC): Patient has a long history of GERD. -Protonix 40 mg daily Assessment & Plan (04/18/2020 10:09 AM EMT PARAMEDIC): Patient has a long history of GERD. -Protonix 40 mg daily Assessment & Plan (04/17/2020 9:31 AM EMT PARAMEDIC): Patient has a long history of GERD. -Protonix 40 mg daily Assessment & Plan (04/16/2020 11:51 AM EMT PARAMEDIC): Patient has a long history of GERD. -Protonix 40 mg daily Assessment & Plan (04/14/2020 9:56 AM EMT PARAMEDIC): Patient has a long history of GERD. -Protonix 40 mg daily Assessment & Plan (04/10/2020 3:25 PM EMT PARAMEDIC): Continue pantoprazole Assessment & Plan (04/08/2020 3:17 PM EMT PARAMEDIC): Continue pantoprazole Assessment & Plan (04/07/2020 6:15 AM EMT PARAMEDIC): Continue pantoprazole Assessment & Plan (04/03/2020 5:54 PM EMT PARAMEDIC): Patient has a long history of GERD. -Protonix 40 mg daily Hypothyroidism 04/03/2020 Assessment & Plan (05/04/2020 12:54 PM EMT PARAMEDIC): Patient carries a diagnosis of hypothyroidism for several years. He is currently treated on levothyroxine 75 mcg daily. - Repeat TFT tests in 6 weeks - continue levothyroxine 75 mcg daily Assessment & Plan (05/03/2020 9:56 AM EMT PARAMEDIC): Patient carries a diagnosis of hypothyroidism for several years. He is currently treated on levothyroxine 75 mcg daily. - Repeat TFT tests in 6 weeks - continue levothyroxine 75 mcg daily Assessment & Plan (05/02/2020 11:57 AM EMT PARAMEDIC): Patient carries a diagnosis of hyperthyroidism for several years. He is currently treated on levothyroxine 75 mcg daily. - Repeat TFT tests in 6 weeks - continue levothyroxine 75 mcg daily Assessment & Plan (05/01/2020 10:58 AM EMT PARAMEDIC): Patient carries a diagnosis of hyperthyroidism for several years. He is currently treated on levothyroxine 75 mcg daily. - Repeat TFT tests in 6 weeks - continue levothyroxine 75 mcg daily Assessment & Plan (04/30/2020 12:17 PM EMT PARAMEDIC): Patient carries a diagnosis of hyperthyroidism for several years. He is currently treated on levothyroxine 75 mcg daily. - Repeat TFT tests in 6 weeks - continue levothyroxine 75 mcg daily Assessment & Plan (04/28/2020 8:00 AM EMT PARAMEDIC): Patient carries a diagnosis of hyperthyroidism for several years. He is currently treated on levothyroxine 75 mcg daily. - Repeat TFT tests in 6 weeks - continue levothyroxine 75 mcg daily Assessment & Plan (04/27/2020 8:47 AM EMT PARAMEDIC): Patient carries a diagnosis of hyperthyroidism for several years. He is currently treated on levothyroxine 75 mcg daily. - Repeat TFT tests in 6 weeks - continue levothyroxine 75 mcg daily Assessment & Plan (04/26/2020 10:11 AM EMT PARAMEDIC): Patient carries a diagnosis of hyperthyroidism for several years. He is currently treated on levothyroxine 75 mcg daily. - Repeat TFT tests in 6 weeks - continue levothyroxine 75 mcg daily Assessment & Plan (04/25/2020 9:45 AM EMT PARAMEDIC): Patient carries a diagnosis of hyperthyroidism for several years. He is currently treated on levothyroxine 75 mcg daily. - Repeat TFT tests in 6 weeks - continue levothyroxine 75 mcg daily Assessment & Plan (04/24/2020 9:48 AM EMT PARAMEDIC): Patient carries a diagnosis of hyperthyroidism for several years. He is currently treated on levothyroxine 75 mcg daily. - Repeat TFT tests in 6 weeks - continue levothyroxine 75 mcg daily Assessment & Plan (04/23/2020 10:21 AM EMT PARAMEDIC): Patient carries a diagnosis of hyperthyroidism for several years. He is currently treated on levothyroxine 75 mcg daily. - Repeat TFT tests in 6 weeks - continue levothyroxine 75 mcg daily Assessment & Plan (04/21/2020 8:37 AM EMT PARAMEDIC): Patient carries a diagnosis of hyperthyroidism for several years. He is currently treated on levothyroxine 75 mcg daily. - Repeat TFT tests in 6 weeks - continue levothyroxine 75 mcg daily Assessment & Plan (04/20/2020 12:05 PM EMT PARAMEDIC): Patient carries a diagnosis of hyperthyroidism for several years. He is currently treated on levothyroxine 75 mcg daily. - Repeat TFT tests in 6 weeks - continue levothyroxine 75 mcg daily Assessment & Plan (04/19/2020 9:46 AM EMT PARAMEDIC): Patient carries a diagnosis of hyperthyroidism for several years. He is currently treated on levothyroxine 75 mcg daily. - Repeat TFT tests in 6 weeks - continue levothyroxine 75 mcg daily Assessment & Plan (04/18/2020 10:09 AM EMT PARAMEDIC): Patient carries a diagnosis of hyperthyroidism for several years. He is currently treated on levothyroxine 75 mcg daily. - Repeat TFT tests in 6 weeks - continue levothyroxine 75 mcg daily Assessment & Plan (04/17/2020 9:31 AM EMT PARAMEDIC): Patient carries a diagnosis of hyperthyroidism for several years. He is currently treated on levothyroxine 75 mcg daily. - Repeat TFT tests in 6 weeks - continue levothyroxine 75 mcg daily Assessment & Plan (04/16/2020 11:51 AM EMT PARAMEDIC): Patient carries a diagnosis of hyperthyroidism for several years. He is currently treated on levothyroxine 75 mcg daily. - Repeat TFT tests in 6 weeks - continue levothyroxine 75 mcg daily Assessment & Plan (04/14/2020 9:57 AM EMT PARAMEDIC): Patient carries a diagnosis of hyperthyroidism for several years. He is currently treated on levothyroxine 75 mcg daily. - Repeat TFT tests in 6 weeks - continue levothyroxine 75 mcg daily Assessment & Plan (04/10/2020 3:25 PM EMT PARAMEDIC): 04/02: TSH 6.49, T4 WNL at 1.38 Continue synthroid 75mcg; repeat TFTs 6-8 weeks Assessment & Plan (04/08/2020 3:17 PM EMT PARAMEDIC): 04/02: TSH 6.49, T4 WNL at 1.38 Continue synthroid 75mcg; repeat TFTs 6-8 weeks Assessment & Plan (04/07/2020 6:16 AM EMT PARAMEDIC): 04/02: TSH 6.49, T4 WNL at 1.38 Continue synthroid 75mcg; repeat TFTs 6-8 weeks Assessment & Plan (04/10/2020 9:35 PM EMT PARAMEDIC): Patient carries a diagnosis of hyperthyroidism for several years. He is currently treated on levothyroxine 75 mcg daily. - Repeat TFT tests in 6 weeks - continue levothyroxine 75 mcg daily Hyperlipemia 04/03/2020 Assessment & Plan (05/04/2020 12:55 PM EMT PARAMEDIC): Has a stated history of hyperlipidemia has been stably treated with atorvastatin 40 mg daily for many years. Patient's LDL low on lipid panel. Notable elevated triglycerides but not fasting sample. - atorvastatin 40 mg daily - fenofibrate 145mg daily Assessment & Plan (05/03/2020 9:56 AM EMT PARAMEDIC): Has a stated history of hyperlipidemia has been stably treated with atorvastatin 40 mg daily for many years. Patient's LDL low on lipid panel. Notable elevated triglycerides but not fasting sample. - atorvastatin 40 mg daily - fenofibrate 145mg daily Assessment & Plan (05/02/2020 11:57 AM EMT PARAMEDIC): Has a stated history of hyperlipidemia has been stably treated with atorvastatin 40 mg daily for many years. Patient's LDL low on lipid panel. Notable elevated triglycerides but not fasting sample. - atorvastatin 40 mg daily - fenofibrate 145mg daily Assessment & Plan (05/01/2020 10:58 AM EMT PARAMEDIC): Has a stated history of hyperlipidemia has been stably treated with atorvastatin 40 mg daily for many years. Patient's LDL low on lipid panel. Notable elevated triglycerides but not fasting sample. - atorvastatin 40 mg daily - tricor 145mg daily Assessment & Plan (04/30/2020 12:17 PM EMT PARAMEDIC): Has a stated history of hyperlipidemia has been stably treated with atorvastatin 40 mg daily for many years. Patient's LDL low on lipid panel. Notable elevated triglycerides but not fasting sample. - atorvastatin 40 mg daily - tricor 145mg daily Assessment & Plan (04/28/2020 8:01 AM EMT PARAMEDIC): Has a stated history of hyperlipidemia has been stably treated with atorvastatin 40 mg daily for many years. Patient's LDL low on lipid panel. Notable elevated triglycerides but not fasting sample. - atorvastatin 40 mg daily - tricor 145mg daily Assessment & Plan (04/27/2020 8:47 AM EMT PARAMEDIC): Has a stated history of hyperlipidemia has been stably treated with atorvastatin 40 mg daily for many years. Patient's LDL low on lipid panel. Notable elevated triglycerides but not fasting sample. - atorvastatin 40 mg daily - tricor 145mg daily Assessment & Plan (04/26/2020 10:11 AM EMT PARAMEDIC): Has a stated history of hyperlipidemia has been stably treated with atorvastatin 40 mg daily for many years. Patient's LDL low on lipid panel. Notable elevated triglycerides but not fasting sample. - atorvastatin 40 mg daily - tricor 145mg daily Assessment & Plan (04/25/2020 9:45 AM EMT PARAMEDIC): Has a stated history of hyperlipidemia has [...] daily Assessment & Plan (04/24/2020 9:48 AM EMT PARAMEDIC): Has a stated history of hyperlipidemia has [...] daily Assessment & Plan (04/23/2020 10:21 AM EMT PARAMEDIC): Has a stated history of hyperlipidemia has [...] daily Assessment & Plan (04/21/2020 8:38 AM EMT PARAMEDIC): Has a stated history of hyperlipidemia has [...] daily Assessment & Plan (04/20/2020 12:05 PM EMT PARAMEDIC): Has a stated history of hyperlipidemia has [...] daily Assessment & Plan (04/19/2020 9:46 AM EMT PARAMEDIC): Has a stated history of hyperlipidemia has [...] daily Assessment & Plan (04/18/2020 10:09 AM EMT PARAMEDIC): Has a stated history of hyperlipidemia has [...] daily Assessment & Plan (04/17/2020 9:31 AM EMT PARAMEDIC): Has a stated history of hyperlipidemia has [...] daily Assessment & Plan (04/16/2020 11:51 AM EMT PARAMEDIC): Has a stated history of hyperlipidemia has [...] daily Assessment & Plan (04/14/2020 9:56 AM EMT PARAMEDIC): Has a stated history of hyperlipidemia has [...] daily Assessment & Plan (04/13/2020 9:46 AM EMT PARAMEDIC): Has a stated history of hyperlipidemia has [...] daily Assessment & Plan (04/10/2020 3:25 PM EMT PARAMEDIC): Continue atorvastatin 40 Assessment & Plan (04/08/2020 3:17 PM EMT PARAMEDIC): Continue atorvastatin 40 Assessment & Plan (04/07/2020 6:15 AM EMT PARAMEDIC): Continue atorvastatin 40 Assessment & Plan (04/12/2020 9:03 AM EMT PARAMEDIC): Has a stated history of hyperlipidemia has [...] (08/31/2018): Added automatically from request for surgery [id number] Assessment & Plan (09/06/2018 12:49 PM CDT): [...] 04/10/2020 Assessment & Plan (05/04/2020 12:55 PM EMT PARAMEDIC): Cr 1.3 -> 1.22 resolving. Baseline <1. - encourage fluids - avoid nephrotoxic meds Assessment & Plan (05/03/2020 9:56 AM EMT PARAMEDIC): Cr 1.3 -> 1.22 resolving. Baseline <1. - encourage fluids - avoid nephrotoxic meds Assessment & Plan (05/02/2020 11:57 AM EMT PARAMEDIC): Cr 1.3 -> 1.22 resolving. Baseline <1. - encourage fluids - avoid nephrotoxic meds Assessment & Plan (05/01/2020 10:58 AM EMT PARAMEDIC): Cr 1.3 -> 1.22 resolving. Baseline <1. - encourage fluids - avoid nephrotoxic meds Assessment & Plan (04/19/2020 9:46 AM EMT PARAMEDIC): Cr 1.3 -> 1.22 resolving. Baseline <1. - encourage fluids - avoid nephrotoxic meds Assessment & Plan (04/18/2020 10:09 AM EMT PARAMEDIC): Cr 1.3 -> 1.22 resolving. Baseline <1. - encourage fluids - avoid nephrotoxic meds Assessment & Plan (04/16/2020 11:51 AM EMT PARAMEDIC): Cr 1.3 -> 1.22 resolving. Baseline <1. - encourage fluids - avoid nephrotoxic meds Assessment & Plan (04/14/2020 9:57 AM EMT PARAMEDIC): Cr 1.3 -> 1.22 resolving. Baseline <1. - encourage fluids - avoid nephrotoxic meds Assessment & Plan (04/13/2020 9:47 AM EMT PARAMEDIC): Cr 1.3 -> 1.22 resolving. Baseline <1. - encourage fluids - avoid nephrotoxic meds Assessment & Plan (04/12/2020 9:04 AM EMT PARAMEDIC): Cr 1.3 -> 1.22 resolving. Baseline <1. - encourage fluids - avoid nephrotoxic meds Diarrhea 04/10/2020 04/20/2020 Assessment & Plan (05/04/2020 12:55 PM EMT PARAMEDIC): Patient recently had constipation, was treated with BID miralax and senna- docusate. Was having diarrhea last week so scheduled bowel regimen discontinued. - discontinued daily senna-docusate - miralax PRN Assessment & Plan (05/03/2020 9:56 AM EMT PARAMEDIC): Patient recently had constipation, was treated with BID miralax and senna- docusate. Was having diarrhea last week so scheduled bowel regimen discontinued. - discontinued daily senna-docusate - miralax PRN Assessment & Plan (05/01/2020 10:59 AM EMT PARAMEDIC): Patient recently had constipation, was treated with BID miralax and senna- docusate. Was having diarrhea last week so scheduled bowel regimen discontinued. - discontinued daily senna-docusate - miralax PRN Assessment & Plan (04/19/2020 9:47 AM EMT PARAMEDIC): Patient recently had constipation, was treated with BID miralax and senna- docusate. Was having diarrhea last week so scheduled bowel regimen discontinued. - discontinued daily senna-docusate - miralax PRN Assessment & Plan (04/16/2020 11:52 AM EMT PARAMEDIC): Patient recently had constipation, was treated with BID miralax and senna- docusate. Was having diarrhea last week so scheduled bowel regimen discontinued. - discontinue daily senna-docusate - miralax PRN Assessment & Plan (04/14/2020 9:57 AM EMT PARAMEDIC): Patient recently had constipation, was treated with BID miralax and senna- docusate. Endorsing nonbloody diarrhea for last 2 days. - discontinue daily senna-docusate - miralax PRN Assessment & Plan (04/10/2020 10:09 PM EMT PARAMEDIC): Patient recently had constipation, was treated with BID miralax and senna- docusate. Endorsing nonbloody diarrhea for last 2 days. - discontinue daily senna-docusate - miralax PRN Ventral hernia without obstr uction or gangrene 08/31/2018 04/20/2020 Overview (08/31/2018): Added automatically from request for surgery [id number] Assessment & Plan (09/06/2018 12:51 PM CDT): [...] week 02/01/2021 How often do you attend [facility] or amish services? More than 4 times per year 02/01/2021 Do you belong to any clubs o r organizations such as yazidi groups, unions, fraternal or athletic groups, or [...] Date Recorded PHQ-2 Total Score 4 04/03/2020 [facility] - Occupational Stress [...] place to sleep or slept in a senior care (including now)? No 02/01/2021 Personal Safety Answer Date Recorded Have you ever been in or are you currently in a harmful physical or emotional relationship or is someone making you feel afraid or unsafe? Denies 03/11/2024 Sex and Gender Information Value Date Recorded Sex Assigned at Not on file Legal Sex Male 3:25 AM EMT PARAMEDIC Gender Identity Male 03/26/2021 11:53 AM EMT PARAMEDIC Sexual Orientation Choose not to disclose 2021 11:53 AM EMT PARAMEDIC Occupation Industry Job Start Date Job End Date disabled Not on file Not on file Not on file Obstetrics History Last Filed Vital Signs Vital Sign Reading Time Taken Comments Blood Pressure 126/74 04/06/2024 9:02 AM EMT PARAMEDIC Pulse 68 04/06/2024 9:02 AM EMT PARAMEDIC Temperature 36.2 C (97.1 F) 04/06/2024 9:02 AM EMT PARAMEDIC Respiratory Rate 16 03/11/2024 4:45 PM EMT PARAMEDIC Oxygen Saturation 95% 04/06/2024 9:02 AM EMT PARAMEDIC Inhaled Oxygen Concentration - - Weight 97.3 kg (214 lb 9.6 oz) 04/06/2024 9:02 A M EMT PARAMEDIC Height 182.9 cm (6') 04/06/2024 9:02 AM EMT PARAMEDIC Body Mass Index 29.1 04/06/2024 9:02 AM EMT PARAMEDIC Plan of Treatment Health Maintenance Due Date Last Done Comments Hepatitis C Screening 1965 Hepatitis B Screening 1984 Regular Well Visit/Exam 18-64 1984 Pneumococcal vaccine <65 (3 of 3 - PCV) 03/08/2016 03/08/2015, 03/08/2015, 03/08/2015 Depression Screening 04/03/2021 04/03/2020, 04/03/19 21 Prostate Cancer Screening-PSA 12/19/2021 12/20/2019, 12/29/2018 Influenza Vaccine (#1) 2024 2, 05/28/2021, 01/09/2020, Additional history exists Colon [...] 10/2020, 08/28/2020 Medical Devices Implanted Type Area Labor Law Professor Device Identifier Shelf Expiration Date Model / Serial / Lot [employer]ol Inc/C R Bard [id number] Ventralight St Sepra 4.5in Uncoated Monofilament Lightweight - [id number] Implanted:Qty: 1 on 09/09/2018 by Xavier Aviles MD at [facility] N/A: Abdomen [employer] Inc/C R 12/19/2019 [id number] / / [id number] Clouder[employer] Inc [id number] Mini Ignite Power Mix Injectable Graft 4ml Synthetic Tissue - [id number] - [id number] Implanted:Qty: 1 on 01/29/2021 by Don Kevin MD at [facility] [employer] Inc 07/08/2023 [id number] / [id number] / [employer] [id number] Medline Unite 7mm 6.5mm 80mm 16mm Cannulated Color Coded Headless - [id number] Implanted:Qty: 1 on 01/29/2021 by Don Kevin MD at [facility] Left: Foot [employer] [id number] / / Medline Dark[employer] Inc [id number] Medline Unite 6.5mm 90mm 16mm Cannulated Color Coded Headless - [id number] Implanted:Qty: 1 on 01/29/2021 by Don Kevin MD at [facility] Left: Foot [employer] [id number] / / Medline [employer] [id number] Screw Bone L50mm Od4.5mm Foot Ankle Cannulated Color Coded Osteotomy - [id number] Implanted:Qty: 1 on 01/29/2021 by Don Kevin MD at [facility] Left: Foot [employer] [id number] / / 20x20 Nitnol Staple Implanted:Qty: 1 on 01/29/2021 by Don Kevin MD at [facility] Left: Foot [employer] Description:[id number] [employer] [id number] Bit 3.3mm Drill Cannulated Ao Quick Connect Color Coded - [id number] Implanted:Qty: 1 on 01/29/2021 by Don Kevin MD at [facility] Left: Foot [employer] [id number] / / Procedures Procedure Name Priority Date/Time Associated Diagnosis Comments PSA SCREEN Routine 12/20/2019 2:31 PM CDT COLONOSCOPY 11/18/2017 7:41 AM CDT from Last 3 Months or Most Recently Relevant to Health Maintenance Results * PSA screen (12/20/2019 2:31 PM CDT) PSA-Total 0.53 <=3.90 ng/mL [facility] ([place]) Comment: Interpretive Data AGE SEX REFERENCE INTERVAL 0 minutes-150 years Female None 0 minutes-49 years Male None 50-59 years Male 0-3.90 60-69 years Male 0-5.40 70-79 years Male 0-6.20 80-150 years Male 0-6.20 Current interpretive data last revised 2018. Testing performed by: [facility], [address] [place] [address], [place]., [address] Blood specimen (specimen) 12/20/2019 2:31 PM CDT 12/20/2019 6:54 PM CDT Raoul Best MD LAB BLOOD ORDERABLES Final Re sult [facility] ([place]) [facility] [place] [address] * COLONOSCOPY (11/18/2017 7:41 AM CDT) Anatomical Region Laterality Modality Other Narrative Procedure Note Alexander Pitts MD - 11/18/2017 7:41 AM CDT [facility] Patient Name: Baljeet Herman Procedure Date: 11/18/2017 7:41 AM Date of : 1965 Admit Type: Outpatient Age: 52 Gender: Male Attending MD: Alexadner Pitts MD Room: [facility] ENDOSCOPY [...] passed under direct vision.The Pediatric Colonoscope [id number] was introduced through the anus and advanced [...] malignant neoplasm of largeintestine CPT copyright 2017 [employer]. All rights reserved. The codes documented in this report are preliminary and upon financial services director reviewmay be revised to meet current compliance requirements. Recognized by the [employer] for promoting quality in endoscopy Alexander Pitts MD ENDOSCOPY PROCEDURES Final Result from Last 3 Months or Most Recently Relevant to Health Maintenance Insurance MEDICARE IDPA IDPA [facility] MEDICARE ADVANTAGE [facility] Address: [facility] [address] [place] [address] [facility] MEDICARE ADVANTAGE [facility]IC[facility] Address: [address] [address] [place] [address] IDPA Advance Directives For more information, please contact: [phone] Documents on File Type Date Recorded Patient Ethernet Network Architect Expl anation ADVANCE DIRECTIVE 03/10/2019 8:47 AM John r of Paper Machine Operator-Medical * Full Code (Latest Code Status on [...] 9:14 AM 05/11/2020 5:01 AM Care Teams Ventilation Equipment Tender Relationship Specialty Start Date End Date Kevin Meyer PA [address] [place] [address] PCP - General 03/23/19 Kevin Meyer PA [address] [place] [address] 03/23/19 Benja Esteban MD [address] [place] [address] Medical Oncologist/Crt Hematology and Oncology 02/28/20
--- OUTSIDE RECORDS SUMMARY | 2024-10-20 12:00 | XMS_ITS | Encounter Summary ---
Author Organization [facility] Healthcare Address [address] [place] [address] Care Team Providers Care Wet Pan Mixer Name Role Phone Kevin Meyer Primary Care Provider [phone] Kevin Meyer Unavailable [phone] Benja Esteban MD Unavailable [phone] Samy Bravo MD PhD Unavailable [phone] Vivian Horn RN Unavailable [phone] Encounter Details Date Type Department Care Team (Late st Contact Info) Description 09/04/2020 Telephone [facility] [address] [place] [address] Dorothy Case, RT Social History [...] declined 04/03/2020 How often do you attend gnosticist or nondenominational serv ices? Patient declined 04/03/2020 Do you belong to any clubs o r organizations such as gnosticist groups, unions, fraternal or athletic groups, or [...] slept in a long term (including now)? 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 SANITATION TECHNICIAN Gender Identity Male 03/26/2021 11:53 AM SANITATION TECHNICIAN Sexual Orientation Choose not to disclose 2021 11:53 AM SANITATION TECHNICIAN Occupation Industry Job Start Date Job End Date disabled Not on file Not on file Not on file documented as of this encounter Plan of Treatment Not on file documented as of this encounter Visit Diagnoses Not on filedocumented in this encounter Care Teams Wet Pan Mixer Relationship Specialty Start Date End Date Kevin Meyer PA [address] [place] [address] PCP - General 03/23/19 Kevin Meyer PA [address] [place] [address] 03/23/19 Benja Esteban MD [address] [place] [address] Medical Oncologist/Speech Communication Instructor Hematology and Oncology 02/28/20 Samy Bravo MD PhD [address] [place] [address] Resident Psychiatry 05/31/20 09/17/20 Vivian Horn, RN [address] [address] [facility] Outpatient Electroencephalographic Technician 02/01/21 02/28/21 documented as of this encounter
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
--- OUTSIDE RECORDS SUMMARY | 2024-10-20 12:00 | XMS_ITS | Clinical Summary ---
Author Organization [facility] Facility Address [address] [address] Care Team Providers Care Pre Fabricator Name Role Phone Kevin Meyer Primary Care Provider [phone] Allergies Active Allergy Reactions Criticality Noted Date [...] 03/08/2015 Insurance Medicare Medicaid [place] Care Teams Pre Fabricator Relationship Specialty Start Date End Date Kevin Meyer PA [address] [place] [address] PCP - General Internal Medicine 10/20/18
--- OUTSIDE RECORDS SUMMARY | 2024-10-20 12:00 | XMS_ITS | Clinical Summary ---
Author Organization [facility] Address [address] [place] [address] Care Team Providers Care Skating Rink Manager Name Role Phone Kevin Meyer Primary Care Provider [phone] Allergies Active Allergy Reactions Criticality Noted Date Comments Bee Venom Protein (Honey Bee) Anaphylaxis High 06/22 Venom-Honey Bee Anaphylaxis High 05/09/2015 Medications levothyroxine 75 mcg tablet Take 75 mcg by mouth daily. Active EPINEPHrine (EPIPEN) 0.3 mg/0.3 mL Auto-Injector INJECT 0.3 MILLILITER (0.3 MG) BY INTRAMUSCULAR ROUTE ONCE NEEDED FOR ANAPHYLAXIS 09/24/19 22 Active rimegepant (Nurtec ODT) 75 mg Tablet, Rapid Dissolve Take 75 mg by mouth. 08/28/19 22 Active LORazepam (Loreev XR) 1 mg Capsule, Sust. Release 24HR Loreev XR 1 mg capsule,extended release 11/25/19 22 Active venlafaxine (EFFEXOR XR) 150 mg Extended Release 24 hour capsule Take 150 mg by mouth daily. 06/01/19 21 Active diazePAM (VALIUM) 2 mg tablet Take 1 mg by mouth 1 time daily as needed. 11/04/19 23 Active OLANZapine (ZyPREXA) 2.5 mg tablet 05/14/19 24 Active Vraylar 1.5 mg Capsule capsule Take 1.5 mg by mouth daily. 09/17/19 24 Active naloxone (NARCAN) 4 mg/spray [place], Non-Aerosol EMERGENCY USE ONLY: Administer 1 spray (4 mg) in one nostril one time. May repeat in alternating nostrils every 2-3 min until responsive or EMS arrives. 2 Each 3 09/17/19 24 Active modafiniL (PROVIGIL) 100 mg Tablet Take 100 mg by mouth daily. 09/30/19 24 Active albuterol sulfate HFA 90 mcg/actuation aerosol inhaler 2 Puffs by See Admin Instructions route see administration instructions. 07/05/19 25 Active azithromycin (ZITHROMAX) 250 mg tablet Take 250 mg by mouth daily. Active codeine phosphate/guai fenesin (CODEINE-GUAIF ENESIN ORAL) Take by mouth every 6 hours as needed for Other (See Comment) (cough). Active cyanocobalamin 1,000 mcg Tablet Take 1 tablet by mouth every other day. 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 Max Daily Amount: 20 mg 90 Tablet 09/02/19 25 025 Discontin ued(Reord er) Active Problems Problem Noted Date Diagnosed Date [...] but unfortunately it is not offered at [facility] and he will have to go to [facility]. He thinks that his insurance may not be accepted at [facility] but we will try and get an [...] Encounters Date Type Department Care Team Description 10/12/[address] [facility] Oncology and Hematology - [address] [place] [address] Jorden Serrano MD 10/11/2024 2:15 PM CDT Office Visit 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 Oncology and Hematology - [address] [facility] [place] [address] oJrden Serrano MD 10/05/[address] [facility] Oncology and Hematology - [address] [place] [address] Jorden Serrano MD 10/04/[address] [facility] Oncology and Hematology - [address] [place] [phone] Jorden Serrano MD 09/30/[address] 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 Oncology and Hematology - [address] [place] [phone] Jorden Serrano MD 09/16/[address] [facility] Oncology and Hematology - [address] Jorden Serrano MD 09/13/2024 External Device Data STL ABSTRACTION Provider, Abstract 09/10/[address] [facility] Oncology and Hematology - [address] [place] [phone] Jorden Serrano MD 09/01/[address] 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 Oncology and Hematology - [address] Jorden Serrano MD 08/16/[address] [facility] Oncology and Hematology - [address] [place] [address] Jorden Serrano MD 08/15/[address] 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 Oncology and Hematology [facility] [address] [place] [address] Jorden Serrano MD Benign hypertension; [...] Sign Reading Time Taken Comments Blood Pressure 118/65 10/11/2024 2:15 PM CDT Pulse 65 10/11/2024 2:15 PM CDT Temperature 36.5 C (97.7 F) 10/11/2024 2:15 PM CDT Respiratory Rate 16 10/11/2024 2:15 PM CDT Oxygen Saturation 97% 10/11/2024 2:15 PM CDT Inhaled Oxygen Concentration - - Weight 83.5 kg (184 lb) 10/11/2024 2:15 PM CDT Height 182.9 cm (6') 12/05/2021 8:44 AM CDT Body Mass Index 24.95 12/05/2021 8:44 AM CDT Plan of Treatment Upcoming Encounters Date Type Department Care Team (Late st Contact Info) Description 02/06/2025 3:45 PM PRODUCTION CONTROLLER Office Visit [facility] Oncology and Hematology [facility] [address] [place] [address] Jorden Serrano MD [address] [facility] [address] [place] [address] Health Maintenance Due Date Last Done Comments HEPATITIS B VACCINES (1 of 3 - [...] Procedure Name Priority Date/Time Associated Diagnosis Comments CBC WITH DIFFERENTIAL Routine 10/04/2024 3:55 PM CDT CHROMOGRANIN A Routine 10/04/2024 2:18 PM CDT SEROTONIN LEVEL Routine 10/04/2024 1:42 PM CDT COMPREHENSIVE METABOLIC PANEL Routine 10/04/2024 8:[address] ABDOMEN PELVIS W CONTRAST Routine 10/04/2024 8:40 AM CDT COMPREHENSIVE METABOLIC PANEL Routine 09/09/2024 2:06 PM [...] Recently Relevant to Health Maintenance Results * CBC WITH DIFFERENTIAL (10/04/2024 3:55 PM CDT) Only the most recent of3 resultswithin the time period is included. Blood Jorden Serrano MD HEMATOLOGY ORDERABLES Final Res ult * CHROMOGRANIN A (10/04/2024 2:18 PM CDT) Blood Jorden Serrano MD CHEMISTRY ORDERABLES Final Resu lt * SEROTONIN LEVEL (10/04/2024 1:42 PM CDT) Only the most recent of2 resultswithin the time period is included. Blood Result [facility] Jorden Serrano MD CHEMISTRY ORDERABLES Final Resu lt * COMPREHENSIVE METABOLIC PANEL (10/04/2024 8:45 AM CDT) Only the most recent of3 resultswithin the time period is included. Blood Jorden Serrano MD CHEMISTRY ORDERABLES Final Resu lt * CT ABDOMEN PELVIS W CONTRAST (10/04/2024 8:40 AM CDT) Anatomical Region Laterality Modality Abdomen Computed Tomogra phy Result [facility] Jorden Serrano MD CT ORDERABLES Final Result * BASIC METABOLIC PANEL (09/09/2024 1:48 PM CDT) Blood Jorden Serrano MD CHEMISTRY ORDERABLES Final Resu lt * HX COLONOSCOPY (07/02/2021) Abstract Provider GENERIC SURGICAL HISTORY Final Result from Last 3 Months or Most Recently Relevant to Health Maintenance Insurance [place]ID [place] [facility] [id number] Care Teams Skating Rink Manager Relationship Specialty Start Date End Date Kevin Meyer PA [address] [place] [address] PCP - General Physician Web Content Coordinator 05/31/21
--- OUTSIDE RECORDS SUMMARY | 2024-10-20 12:00 | XMS_ITS | Encounter Summary ---
Author Organization [facility] Address [address] [facility] [address] [place] [address] Phone Care Team Providers Care Inventory Control Associate Name Role Phone Kevin Meyer Primary Care Provider [phone] Kevin Meyer Primary Care Provider [phone] Kevin Meyer Unavailable [phone] Benja Esteban MD Unavailable [phone] Samy Bravo MD PhD Unavailable [phone] Vivian Horn RN Unavailable [phone] Encounter Details Date Type Department Care Team (Late st Contact Info) Description 05/20/2017 Orders Only [facility] ProviderEstefania MD [address] [place] [address] Social History Tobacco Use Types Packs/Day Years Used Date Smoking Tobacco: Former Smokeless Tobacco: Never Alcohol Use Standard Drinks/Week Comments No 0 (1 standard drink = 0.6 oz pur e alcohol) Sex and Gender Information Value Date Recorded Sex Assigned at Not on file Legal Sex Male 3:25 AM ACCELERATOR TECHNICIAN Gender Identity Male 03/26/2021 11:53 AM ACCELERATOR TECHNICIAN Sexual Orientation Choose not to disclose 2021 11:53 AM ACCELERATOR TECHNICIAN documented as of this encounter Plan of Treatment Not on file documented as of this encounter Procedures Procedure Name Priority Date/Time Associated Diagnosis Comments DISCHARGE LABORATORY CUMULATIVE REPORT 05/20/2017 12:00 AM ACCELERATOR TECHNICIAN documented in this encounter Results * DISCHARGE LABORATORY CUMULATIVE REPORT (05/20/2017 12:00 AM ACCELERATOR TECHNICIAN) Narrative 05/20/2017 12:00 AM ACCELERATOR TECHNICIAN Ordered by an unspecified provider. us Historical Provider LAB BLOOD ORDERABLES Elena l Result documented in this encounter Visit Diagnoses Not on filedocumented in this encounter Care Teams Inventory Control Associate Relationship Specialty Start Date End Date Kevin Meyer PA [address] [place] [address] PCP - General 08/13/16 03/22/19 Kevin Meyer PA [address] [place] [address] PCP - General 03/23/19 Kevin Meyer PA [address] [place] [address] 03/23/19 Benja Esteban MD [address] [place] [address] Medical Oncologist/Front Office Representative Hematology and Oncology 02/28/20 Samy Bravo MD PhD [address] [place] [address] Resident Psychiatry 05/31/20 09/17/20 Vivian Horn, RN [address] [address] SHOP Outpatient Parachute Packer 02/01/21 02/28/21 documented as of this encounter
--- OUTSIDE RECORDS SUMMARY | 2024-10-20 12:00 | XMS_ITS ---
Author Organization [facility] Address [address] [place] [address] Phone Care Team Providers Care Manager Field Name Role Phone Kevin Meyer Primary Care Provider [phone] Dawit MARISCAL MD, Courtney Unavailable [phone] Brad Bone MD Unavailable [phone] Vanda Jimenez APRN, LICENSED MASSAGE PRACTITIONER Unavailable Min Mario MD Unavailable OnCserge Chronic Condition Monitoring Status:Enrolled (Active) Start date:04/20/2024 Enrollment date:04/20/2024 Related social drivers of health:Intimate Partner Violence, Social Connections, Alcohol Use, Tobacco Use, Financial Resource Strain,Depression, Stress, Physical Activity, Food Insecurity, Transportation Needs, Housing Stability, Utilities Continued Care and Services Coordination
--- OUTSIDE RECORDS SUMMARY | 2024-10-20 12:00 | XMS_ITS | Encounter Summary ---
Author Organization [facility] Address [address] [facility] [place] [address] Phone Care Team Providers Care Casing Builder Name Role Phone Kevin Meyer Primary Care Provider [phone] Amy Allen APRN, SAP BW ARCHITECT Unavailable + [phone] Dawit MARISCAL MD, Courtney Unavailable [phone] Brad Bone MD Unavailable [phone] Vanda Jimenez APRN, SAP BW ARCHITECT Unavailable Min Mario MD Unavailable Reason for Visit * Reason Comments Medication Refill Encounter Details Date Type Department Care Team (Late st Contact Info) Description 06/22/2024 Refill [facility] - G[facility]enterology [facility] [address] [place] [address] Vanda Jimenez APRN, SAP BW ARCHITECT [address] [place] [address] Medication Refill Social History Tobacco Use Types [...] PM CDT Medication refilled and signed per [facility] chronic medication standing order for pediatric and adult patients. documented in this encounter Plan of Treatment Upcoming Encounters Date Type Department Care Team (Late st Contact Info) Description 02/02/2025 10:15 AM COMMISSION SALES ASSOCIATE Office Visit [facility] [address] [place] [address] Min Mario MD #[address] [address] documented as of this encounter Visit Diagnoses Not on filedocumented in this encounter Care Teams Casing Builder Relationship Specialty Start Date End Date Kevin Meyer PAC [address] [place] [address] PCP - General Physician Valance Cutter 07/15/17 Amy Allen APRN, SAP BW ARCHITECT [address]2 [facility] [address] [place] [address] Nurse Practitioner Cardiology 01/27/23 09/29/24 Merlene Pastor III, MD [address] [place] [address] Consulting Physician Urology 10/28/21 Brad Bone MD [address] [place] [address] Consulting Physician Neurology 09/04/22 Vanda Jimenez APRN, SAP BW ARCHITECT [address] [place] [address] Nurse Practitioner Advanced Practice Nurse 07/31/22 Min Mario MD #[address] [address] Consulting Physician Urology 12/17/23 documented as of this encounter
--- OUTSIDE RECORDS SUMMARY | 2024-10-20 12:00 | XMS_ITS | Encounter Summary ---
Author Organization [facility] Address [address] [facility] [place] [address] Phone Care Team Providers Care Body Builder Name Role Phone Kevin Meyer Primary Care Provider [phone] Amy Allen APRN, CNC MAINTENANCE TECHNICIAN Unavailable + [phone] Dawit MARISCAL MD, Courtney Unavailable [phone] Brad Bone MD Unavailable [phone] Vanda Jimenez APRN, CNC MAINTENANCE TECHNICIAN Unavailable Min Mario MD Unavailable Encounter Details Date Type Department Care Team (Latest Contact Info) Description 02/25/2023 [facility] [address] [place] [address] Tavo Polo MD PhD [address] [place] [address] Abnormal echocardiogram (Primary Dx); Preprocedural [...] st Contact Info) Description 02/02/2025 10:15 AM FURNITURE ARRANGER Office Visit [facility] [address] [place] [address] Min Mario MD [address] [facility] [address] [place] [address] documented as of this encounter Results * (ABNORMAL) BASIC METABOLIC PANEL W/ CALCIUM TOTAL (04/16/2023 3:23 PM FURNITURE ARRANGER) SODIUM 137 136 - 145 mmol/L 04/16/2023 5:06 PM [facility] POTASSIUM 3.5 3.5 - 5.1 mmol/L 04/16/2023 5:06 PM [facility] CHLORIDE 100 98 - 107 mmol/L 04/16/2023 5:06 PM [facility] CO2, VENOUS 29 22 - 30 mmol/L 04/16/2023 5:06 PM [facility] ANION GAP 11.5 <18.0 mmol/L 04/16/2023 5:06 PM [facility] GLUCOSE 92 70 - 99 mg/dL 04/16/2023 5:06 PM [facility] BUN 7(L) 8 - 26 mg/dL 04/16/2023 5:06 PM [facility] CREATININE, BLOOD 1.00 0.70 - 1.30 mg/dL 04/16/2023 5:06 PM [facility] BUN/CREATININE RATIO 7(L) 12 - 20 ratio 04/16/2023 5:06 PM [facility] CALCIUM 9.1 8.7 - 10.5 mg/dL 04/16/2023 5:06 PM [facility] IS THE PATIENT REQUIRED TO BE FASTING? No 04/16/2023 5:06 PM FURNITURE ARRANGER [facility] GFR, ESTIMATED >60 >=60 04/16/2023 5:06 PM FURNITURE ARRANGER [facility] Comment: Creatinine Clearance is the preferred criteria for selecting drug dose adjustments in renally impaired patients. The GFR is provided as additional pertinent clinical information. GFR is reported in mL/min/1.73 sq m. Calculation based on the Chronic Kidney Disease Epidemiology Collaboration (CKD- EPI) equation refit without adjustment for race. GFR, EST. >60 >=60 024 5:06 PM FURNITURE ARRANGER [facility] GFR, EST. NONAFRICAN >60 >=60 04/16/2023 5:06 PM FURNITURE ARRANGER [facility] Blood Venipuncture / Unknown 04/16/2023 3:23 PM FURNITURE ARRANGER 04/16/2023 4:25 PM FURNITURE ARRANGER Tavo Polo MD PhD CHEMISTRY ORDERABLES Final Result [facility] [place] [address] documented in this encounter Visit Diagnoses Diagnosis Abnormal echocardiogram- Primary Nonspecific (abnormal) findings on radiological and other examination of other intrathoracic organs Preprocedural cardiovascular examination Pre-operative cardiovascular examination documented in this encounter Care Teams Body Builder Relationship Specialty Start Date End Date Kevin Meyer PAC [address] [place] [address] PCP - General Physician Cigar Wrapper Tender Automatic 07/15/17 Amy Allen APRN, CNC MAINTENANCE TECHNICIAN #[address] [address] Nurse Practitioner Cardiology 01/27/23 09/29/24 Merlene Pastor III, MD #[address] [place] [address] Consulting Physician Urology 10/28/21 Brad Bone MD #[address] [place] [address] Consulting Physician Neurology 09/04/22 Vanda Jimenez APRN, CNC MAINTENANCE TECHNICIAN [address] [place] [address] Nurse Practitioner Advanced Practice Nurse 07/31/22 Min Mario MD #[address] [address] Consulting Physician Urology 12/17/23 documented as of this encounter
--- OUTSIDE RECORDS SUMMARY | 2024-10-20 12:00 | XMS_ITS | Clinical Summary ---
Author Organization [facility] Address [address] [place] [address] Phone Care Team Providers Care Second Hand Name Role Phone Kevin Meyer Primary Care Provider [phone] Dawit MARISCAL MD, Courtney Unavailable [phone] Brad Bone MD Unavailable [phone] Vanda Jimenez APRN, PARKING LOT ATTENDANT AND CASHIER Unavailable Min Mario MD Unavailable Allergies Active [...] Description 07/21/2024 9:30 AM CDT Procedure Visit [facility] [address] [place] [address] Min Mario MD Kidney stone (Primary Dx); Urinary tract infection with hematuria, site unspecified; Acute cystitis with hematuria; Prostate cancer screening Discharge Disposition: Discharged to home or Selfcare 07/21/2024 Telephone [facility] [address] [place] [address] Anne Marie Osborne, RN Hypertension from Last 3 Months Immunizations Immunization Administration [...] st Contact Info) Description 02/02/2025 10:15 AM DISTRICT BRANCH MANAGER Office Visit [facility] [address] [place] [address] Min Mario MD [address] [address] Health Maintenance Due Date Last Done Comments [...] Urinary tract infection with hematuria, site unspecified from Last 3 Months Results * (ABNORMAL) [...] was removed. He tolerated the procedure well. Min Mario MD [place] - SURGERY Final Result from Last 3 Months Insurance MEDICAID [place] MEDICARE C [employer] MEDICAID [place] Advance Directives * Full Code (Latest Code [...] all measures to stabilize patient. Care Teams Second Hand Relationship Specialty Start Date End Date Kevin Meyer PAC [address] [place] [address] PCP - General Physician Kettle Chipper 07/15/17 Merlene Pastor III, MD [address] [place] [address] Consulting Physician Urology 10/28/21 Brad Bone MD [address] [place] [address] Consulting Physician Neurology 09/04/22 Vanda Jimenez APRN, PARKING LOT ATTENDANT AND CASHIER [address] [place] [address] Nurse Practitioner Advanced Practice Nurse 07/31/22 Min Mario MD [address] [facility] [address] [address] Consulting Physician Urology 12/17/23
--- OUTSIDE RECORDS SUMMARY | 2024-10-20 12:01 | XMS_ITS | Clinical Summary ---
Author Organization [facility] Address [address] [facility] [place] [address] Care Team Providers Care Radiation Safety Officer Name Role Phone Kevin Meyer Primary Care Provider [phone] Source Comments [facility],non-owned Affiliates and Associated Physician Practices is amultiple site organization consisting of ambulatory clinics and hospital sitesin [place], [place] and [place]. This disclosure is being madepursuant to the Care Everywhere program and may not contain all information available regarding this patient. Last updated 17.[facility] Allergies Active Allergy Reactions Criticality Noted [...] on file Legal Sex Male 4:24 AM FIELD CLINICAL ENGINEER Gender Identity Not on file Sexual Orientation Not on file Last Filed Vital Signs Vital Sign Reading Time Taken Comments Blood Pressure 134/79 04/23/2022 1:34 PM FIELD CLINICAL ENGINEER Pulse 62 04/23/2022 1:34 PM FIELD CLINICAL ENGINEER Temperature 36.4 C (97.5 F) 04/23/2022 1:34 PM FIELD CLINICAL ENGINEER Respiratory Rate 18 10/15/2021 6:45 PM CDT Oxygen Saturation 100% 04/23/2022 1:34 PM FIELD CLINICAL ENGINEER Inhaled Oxygen Concentration - - Weight 94.3 kg (208 lb) 04/23/2022 1:34 PM FIELD CLINICAL ENGINEER Height 182.9 cm (6') 10/15/2021 7:20 AM [...] COMPREHENSIVE METABOLIC PANEL Routine 04/23/2022 11:02 AM FIELD CLINICAL ENGINEER Neuroendocrine carcinoma metastatic to liver from Last 3 Months or Most Recently Relevant to Health Maintenance Results * (ABNORMAL) COMPREHENSIVE METABOLIC PANEL (04/23/2022 11:02 AM [facility]) BUN 14 7 - 26 mg/dL 04/23/2022 11:56 AM [facility] Creatinine 0.81 0.71 - 1.16 mg/dL 04/23/2022 11:56 AM [facility] Sodium 136 136 - 145 mmol/L 04/23/2022 11:56 AM [facility] Potassium 3.9 3.5 - 4.5 mmol/L 04/23/2022 11:56 AM [facility] Chloride 102 98 - 107 mmol/L 04/23/2022 11:56 AM [facility] CO2 23 22 - 29 mmol/L 04/23/2022 11:56 AM [facility] Glucose 117(H) 70 - 115 mg/dL 04/23/2022 11:56 AM [facility] Calcium 9.1 8.4 - 10.2 mg/dL 04/23/2022 11:56 AM [facility] Protein Total 7.0 6.0 - 8.3 g/dL 04/23/2022 11:56 AM [facility] Albumin 3.8 3.4 - 5.0 g/dL 04/23/2022 11:56 AM [facility] Bilirubin Total 0.4 0.2 - 1.2 mg/dL 04/23/2022 11:56 AM [facility] Alkaline Phosphatase 112 40 - 150 U/L 04/23/2022 11:56 AM [facility] ALT 62(H) 5 - 55 U/L 04/23/2022 11:56 AM [facility] AST 31 5 - 34 U/L 04/23/2022 11:56 AM [facility] Anion Gap 15 8 - 18 04/23/2022 11:56 AM [facility] BUN/Creatinine Ratio 17 7 - 23 04/23/2022 11:56 AM [facility] Osmolality Calculated 284 270 - 300 mOsm/kg 04/23/2022 11:56 AM [facility] Albumin/Globulin Ratio 1.2 1.1 - 2.3 04/23/2022 11:56 AM FIELD CLINICAL ENGINEER [facility] eGFR by CKD-EPI >90 >=90 mL/min/1.7 3 m2 04/23/2022 11:56 AM [facility] Blood BLOOD SPECIMEN / Unknown Lab Venipuncture / Unknown 04/23/2022 11:02 AM FIELD CLINICAL ENGINEER 04/23/2022 11:31 AM FIELD CLINICAL ENGINEER Blair Le MD LAB - CHEMISTRY ORDERABLES Final Result [facility] [address] [place] [address], [facility] [phone] from Last 3 Months or Most Recently Relevant to Health Maintenance Insurance MEDICAID - OUT OF STATE MEDICAID - [place] UHC MANAGED MEDICARE ADV Care Teams Radiation Safety Officer Relationship Specialty Start Date End Date Kevin Meyer PA [address] [place] [address] PCP - General 06/28/21
--- OUTSIDE RECORDS SUMMARY | 2024-10-20 12:01 | XMS_ITS ---
Author Organization [facility] Address [address] [place] [address] Care Team Providers Care Services Rep Name Role Phone Kevin Meyer Primary Care Provider [phone] Kevin Meyer Unavailable [phone] Benja Esteban MD Unavailable [phone] Active Problems Problem Noted Date Diagnosed Date Knee pain 02/13/2021 Malignant neoplasm of colon 02/13/2021 Essential hypertension 01/16/2021 Cervical radiculopathy 01/15/2021 Personal history of other ma lignant neoplasm of large intestine 12/17/2020 Overview (12/17/2020): Added automatically from request for surgery [id number] 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/13/2020 Overview (12/13/2020): Added automatically from request for surgery [id number] Malignant carcinoid tumor of the ileum Stimulant use disorder 05/31/2020 Severe alcohol use disorder 05/31/2020 PTSD (post-traumatic stress disorder) 05/31/2020 Chronic bilateral low back pain without sciatica 04/07/2020 Assessment & Plan (05/04/2020 12:54 PM MATERIALS SUPERVISOR): - flexeril 10mg TID PRN - [place] 10mg q4 PRN - lidocaine patch daily - avoid IV ketorelac and NSAIDs with starting lithium - heating packs Assessment & Plan (05/03/2020 9:56 AM MATERIALS SUPERVISOR): - flexeril 10mg TID PRN - [place] 10mg q4 PRN - lidocaine patch daily - avoid IV ketorelac and NSAIDs with starting lithium - heating packs Assessment & Plan (05/02/2020 11:56 AM MATERIALS SUPERVISOR): - flexeril 10mg TID PRN - [place] 10mg q4 PRN - lidocaine patch daily - avoid IV ketorelac and NSAIDs with starting lithium - heating packs Assessment & Plan (05/01/2020 10:58 AM MATERIALS SUPERVISOR): - flexeril 10mg TID PRN - NORCO 10mg q4 PRN - lidocaine patch daily - avoid IV ketorelac and NSAIDs with starting lithium - heating pads Assessment & Plan (04/30/2020 12:17 PM MATERIALS SUPERVISOR): - flexeril 10mg TID PRN - NORCO 10mg q4 PRN - lidocaine patch daily - avoid IV ketorelac and NSAIDs with starting lithium - heating pads Assessment & Plan (04/28/2020 8:01 AM MATERIALS SUPERVISOR): - flexeril 10mg TID PRN - NORCO 10mg q4 PRN - lidocaine patch daily - avoid IV ketorelac and NSAIDs with starting lithium - heating pads Assessment & Plan (04/27/2020 8:47 AM MATERIALS SUPERVISOR): - flexeril 10mg TID PRN - NORCO 10mg q4 PRN - lidocaine patch daily - avoid IV ketorelac and NSAIDs given ADILENE - heating pads Assessment & Plan (04/26/2020 10:11 AM MATERIALS SUPERVISOR): - flexeril 10mg TID PRN - NORCO 10mg q4 PRN - lidocaine patch daily - avoid IV ketorelac and NSAIDs given ADILENE - heating pads Assessment & Plan (04/25/2020 9:45 AM MATERIALS SUPERVISOR): - flexeril 10mg TID PRN - NORCO 10mg q4 PRN - lidocaine patch daily - avoid IV ketorelac and NSAIDs given ADILENE - heating pads Assessment & Plan (04/24/2020 9:49 AM MATERIALS SUPERVISOR): - flexeril 10mg TID PRN - [place]CO 10mg q4 PRN - lidocaine patch daily - avoid IV ketorelac and NSAIDs given ADILENE - heating pads Assessment & Plan (04/23/2020 10:21 AM MATERIALS SUPERVISOR): - flexeril 10mg TID PRN - NOR[place] 10mg q4 PRN - lidocaine patch daily - avoid IV ketorelac and NSAIDs given ADILENE - heating pads Assessment & Plan (04/21/2020 8:38 AM MATERIALS SUPERVISOR): - flexeril 10mg TID PRN - [place] 10mg q4 PRN - lidocaine patch daily - avoid IV ketorelac and NSAIDs given ADILENE - heating pads Assessment & Plan (04/20/2020 12:05 PM MATERIALS SUPERVISOR): - flexeril 10mg TID PRN - [place] 10mg q4 PRN - lidocaine patch daily - avoid IV ketorelac and NSAIDs given ADILENE - heating pads Assessment & Plan (04/19/2020 9:46 AM MATERIALS SUPERVISOR): - flexeril 10mg TID PRN - NORCO 10mg q4 PRN - lidocaine patch daily - avoid IV ketorelac and NSAIDs given ADILENE - heating pads Assessment & Plan (04/18/2020 10:09 AM MATERIALS SUPERVISOR): - flexeril 10mg TID PRN - NORCO 10mg q4 PRN - lidocaine patch daily - avoid IV ketorelac and NSAIDs given ADILENE - heating pads Assessment & Plan (04/17/2020 9:31 AM MATERIALS SUPERVISOR): - flexeril 10mg TID PRN - NORCO 10mg q4 PRN - lidocaine patch daily - avoid IV ketorelac and NSAIDs given ADILENE - heating pads Assessment & Plan (04/16/2020 11:51 AM MATERIALS SUPERVISOR): - flexeril 10mg TID PRN - NORCO 10mg q4 PRN - lidocaine patch daily - avoid IV ketorelac and NSAIDs given ADILENE - heating pads Assessment & Plan (04/14/2020 9:57 AM MATERIALS SUPERVISOR): - flexeril 10mg TID PRN - NORCO 10mg q4 PRN - lidocaine patch daily - avoid IV ketorelac and NSAIDs given ADILENE - heating pads Assessment & Plan (04/10/2020 10:04 PM MATERIALS SUPERVISOR): - flexeril 10mg TID PRN - NORCO 10mg q4 PRN - lidocaine patch daily - avoid IV ketorelac and NSAIDs given ADILENE - heating pads Assessment & Plan (04/08/2020 3:23 PM MATERIALS SUPERVISOR): Patient endorsing exacerbation of chronic back pain [...] -PT Assessment & Plan (04/07/2020 6:23 AM MATERIALS SUPERVISOR): Patient endorsing exacerbation of chronic back pain and left ankle pain (had previous traumatic injury, required surgery). No other red flag symptoms/signs. Reports he has received injections in the past -Continue PRN norco, flexeril -Lidocaine patch to back -PT Depressive disorder 04/03/2020 Assessment & Plan (05/04/2020 12:54 PM MATERIALS SUPERVISOR): 54yo M with reported history of bipolar [...] more bright. Plan to discharge patient 05/04. [place] augmentation started with moderate improvements seen in depressive symptoms with ECT, titrated to 300 mg BID with level 0.6. - Continue OLANZapine, 20 mg, oral, Nightly, for depression - Continue Venlafaxine XR 150 mg PO daily, for depression - Continue lithium to 300 mg BID - [place] level 0.6 on 05/03 - This is [...] 05/04 Assessment & Plan (05/03/2020 9:56 AM MATERIALS SUPERVISOR): 54yo M with reported history of bipolar [...] more bright. Plan to discharge patient 05/04. [place] augmentation started with moderate improvements seen in depressive symptoms with ECT, titrated to 300 mg BID with level 0.6. - Continue OLANZapine, 20 mg, oral, Nightly, for depression - Continue Venlafaxine XR 150 mg PO daily, for depression - Continue lithium to 300 mg BID - [place] level 0.6 on 05/03 - This is [...] permission) Assessment & Plan (05/02/2020 11:56 AM MATERIALS SUPERVISOR): 54yo M with reported history of bipolar [...] permission) Assessment & Plan (05/01/2020 10:58 AM MATERIALS SUPERVISOR): 54yo M with reported history of bipolar [...] family Assessment & Plan (04/30/2020 12:17 PM MATERIALS SUPERVISOR): 54yo M with reported history of bipolar [...] family Assessment & Plan (04/28/2020 8:02 AM MATERIALS SUPERVISOR): 54yo M with reported history of bipolar [...] depression Assessment & Plan (04/27/2020 8:47 AM MATERIALS SUPERVISOR): 54yo M with reported history of bipolar [...] depression Assessment & Plan (04/26/2020 10:11 AM MATERIALS SUPERVISOR): 54yo M with reported history of bipolar [...] depression Assessment & Plan (04/25/2020 9:47 AM MATERIALS SUPERVISOR): 54yo M with reported history of bipolar [...] depression Assessment & Plan (04/24/2020 9:48 AM MATERIALS SUPERVISOR): 54yo M with reported history of bipolar [...] depression Assessment & Plan (04/23/2020 10:21 AM MATERIALS SUPERVISOR): 54yo M with reported history of bipolar [...] depression Assessment & Plan (04/21/2020 8:36 AM MATERIALS SUPERVISOR): 54yo M with reported history of bipolar [...] depression Assessment & Plan (04/20/2020 12:05 PM MATERIALS SUPERVISOR): 54yo M with reported history of bipolar [...] depression Assessment & Plan (04/19/2020 9:48 AM MATERIALS SUPERVISOR): 54yo M with reported history of bipolar [...] depression Assessment & Plan (04/18/2020 10:08 AM MATERIALS SUPERVISOR): 54yo M with reported history of bipolar [...] depression Assessment & Plan (04/17/2020 9:32 AM MATERIALS SUPERVISOR): 54yo M with reported history of bipolar [...] depression Assessment & Plan (04/16/2020 11:49 AM MATERIALS SUPERVISOR): 54yo M with reported history of bipolar [...] depression Assessment & Plan (04/14/2020 9:56 AM MATERIALS SUPERVISOR): 54yo M with reported history of bipolar [...] depression Assessment & Plan (04/13/2020 9:46 AM MATERIALS SUPERVISOR): 54yo M with reported history of bipolar [...] procedure Assessment & Plan (04/10/2020 3:25 PM MATERIALS SUPERVISOR): Presented to ED 04/02 with suicidal ideation, depression. Initially admitted to psychiatry for medication adjustment, received ECT x1 04/06 -Continue current meds: lexapro 5, effexor 112.5, olanzapine 20mg QHS - If COVID test is negative, transfer to Psychiatry floor. Assessment & Plan (04/08/2020 3:24 PM MATERIALS SUPERVISOR): Presented to ED 04/02 with suicidal ideation, depression. Initially admitted to psychiatry for medication adjustment, received ECT x1 04/06 -Psych consulted upon transfer to medicine but are following only peripherally over the weekend -Continue current meds: lexapro 5, effexor 112.5, olanzapine 20mg QHS -Psychiatry recommending discontinuing suicide precautions with 1:1 sitter Assessment & Plan (04/07/2020 6:14 AM MATERIALS SUPERVISOR): Presented to ED 04/02 with suicidal ideation, depression. Initially admitted to psychiatry for medication adjustment, received ECT x1 04/06 -Psych c/s upon transfer -Continue current meds: lexapro 5, effexor 112.5, olanzapine 20mg QHS -Suicide precautions, 1:1 sitter Assessment & Plan (04/12/2020 9:11 AM MATERIALS SUPERVISOR): 54yo M with reported history of bipolar [...] midnight Assessment & Plan (04/03/2020 2:04 PM MATERIALS SUPERVISOR): 54yo M with reported history of bipolar [...] disease) Assessment & Plan (05/04/2020 12:54 PM MATERIALS SUPERVISOR): Patient has a long history of GERD. - Protonix 40 mg daily Assessment & Plan (05/03/2020 9:56 AM MATERIALS SUPERVISOR): Patient has a long history of GERD. - Protonix 40 mg daily Assessment & Plan (05/02/2020 11:57 AM MATERIALS SUPERVISOR): Patient has a long history of GERD. - Protonix 40 mg daily Assessment & Plan (05/01/2020 10:58 AM MATERIALS SUPERVISOR): Patient has a long history of GERD. - Protonix 40 mg daily Assessment & Plan (04/30/2020 12:17 PM MATERIALS SUPERVISOR): Patient has a long history of GERD. - Protonix 40 mg daily Assessment & Plan (04/28/2020 8:00 AM MATERIALS SUPERVISOR): Patient has a long history of GERD. -Protonix 40 mg daily Assessment & Plan (04/27/2020 8:47 AM MATERIALS SUPERVISOR): Patient has a long history of GERD. -Protonix 40 mg daily Assessment & Plan (04/26/2020 10:11 AM MATERIALS SUPERVISOR): Patient has a long history of GERD. -Protonix 40 mg daily Assessment & Plan (04/25/2020 9:45 AM MATERIALS SUPERVISOR): Patient has a long history of GERD. -Protonix 40 mg daily Assessment & Plan (04/24/2020 9:48 AM MATERIALS SUPERVISOR): Patient has a long history of GERD. -Protonix 40 mg daily Assessment & Plan (04/23/2020 10:21 AM MATERIALS SUPERVISOR): Patient has a long history of GERD. -Protonix 40 mg daily Assessment & Plan (04/21/2020 8:37 AM MATERIALS SUPERVISOR): Patient has a long history of GERD. -Protonix 40 mg daily Assessment & Plan (04/20/2020 12:05 PM MATERIALS SUPERVISOR): Patient has a long history of GERD. -Protonix 40 mg daily Assessment & Plan (04/19/2020 9:46 AM MATERIALS SUPERVISOR): Patient has a long history of GERD. -Protonix 40 mg daily Assessment & Plan (04/18/2020 10:09 AM MATERIALS SUPERVISOR): Patient has a long history of GERD. -Protonix 40 mg daily Assessment & Plan (04/17/2020 9:31 AM MATERIALS SUPERVISOR): Patient has a long history of GERD. -Protonix 40 mg daily Assessment & Plan (04/16/2020 11:51 AM MATERIALS SUPERVISOR): Patient has a long history of GERD. -Protonix 40 mg daily Assessment & Plan (04/14/2020 9:56 AM MATERIALS SUPERVISOR): Patient has a long history of GERD. -Protonix 40 mg daily Assessment & Plan (04/10/2020 3:25 PM MATERIALS SUPERVISOR): Continue pantoprazole Assessment & Plan (04/08/2020 3:17 PM MATERIALS SUPERVISOR): Continue pantoprazole Assessment & Plan (04/07/2020 6:15 AM MATERIALS SUPERVISOR): Continue pantoprazole Assessment & Plan (04/03/2020 5:54 PM MATERIALS SUPERVISOR): Patient has a long history of GERD. -Protonix 40 mg daily Hypothyroidism 04/03/2020 Assessment & Plan (05/04/2020 12:54 PM MATERIALS SUPERVISOR): Patient carries a diagnosis of hypothyroidism for several years. He is currently treated on levothyroxine 75 mcg daily. - Repeat TFT tests in 6 weeks - continue levothyroxine 75 mcg daily Assessment & Plan (05/03/2020 9:56 AM MATERIALS SUPERVISOR): Patient carries a diagnosis of hypothyroidism for several years. He is currently treated on levothyroxine 75 mcg daily. - Repeat TFT tests in 6 weeks - continue levothyroxine 75 mcg daily Assessment & Plan (05/02/2020 11:57 AM MATERIALS SUPERVISOR): Patient carries a diagnosis of hyperthyroidism for several years. He is currently treated on levothyroxine 75 mcg daily. - Repeat TFT tests in 6 weeks - continue levothyroxine 75 mcg daily Assessment & Plan (05/01/2020 10:58 AM MATERIALS SUPERVISOR): Patient carries a diagnosis of hyperthyroidism for several years. He is currently treated on levothyroxine 75 mcg daily. - Repeat TFT tests in 6 weeks - continue levothyroxine 75 mcg daily Assessment & Plan (04/30/2020 12:17 PM MATERIALS SUPERVISOR): Patient carries a diagnosis of hyperthyroidism for several years. He is currently treated on levothyroxine 75 mcg daily. - Repeat TFT tests in 6 weeks - continue levothyroxine 75 mcg daily Assessment & Plan (04/28/2020 8:00 AM MATERIALS SUPERVISOR): Patient carries a diagnosis of hyperthyroidism for several years. He is currently treated on levothyroxine 75 mcg daily. - Repeat TFT tests in 6 weeks - continue levothyroxine 75 mcg daily Assessment & Plan (04/27/2020 8:47 AM MATERIALS SUPERVISOR): Patient carries a diagnosis of hyperthyroidism for several years. He is currently treated on levothyroxine 75 mcg daily. - Repeat TFT tests in 6 weeks - continue levothyroxine 75 mcg daily Assessment & Plan (04/26/2020 10:11 AM MATERIALS SUPERVISOR): Patient carries a diagnosis of hyperthyroidism for several years. He is currently treated on levothyroxine 75 mcg daily. - Repeat TFT tests in 6 weeks - continue levothyroxine 75 mcg daily Assessment & Plan (04/25/2020 9:45 AM MATERIALS SUPERVISOR): Patient carries a diagnosis of hyperthyroidism for several years. He is currently treated on levothyroxine 75 mcg daily. - Repeat TFT tests in 6 weeks - continue levothyroxine 75 mcg daily Assessment & Plan (04/24/2020 9:48 AM MATERIALS SUPERVISOR): Patient carries a diagnosis of hyperthyroidism for several years. He is currently treated on levothyroxine 75 mcg daily. - Repeat TFT tests in 6 weeks - continue levothyroxine 75 mcg daily Assessment & Plan (04/23/2020 10:21 AM MATERIALS SUPERVISOR): Patient carries a diagnosis of hyperthyroidism for several years. He is currently treated on levothyroxine 75 mcg daily. - Repeat TFT tests in 6 weeks - continue levothyroxine 75 mcg daily Assessment & Plan (04/21/2020 8:37 AM MATERIALS SUPERVISOR): Patient carries a diagnosis of hyperthyroidism for several years. He is currently treated on levothyroxine 75 mcg daily. - Repeat TFT tests in 6 weeks - continue levothyroxine 75 mcg daily Assessment & Plan (04/20/2020 12:05 PM MATERIALS SUPERVISOR): Patient carries a diagnosis of hyperthyroidism for several years. He is currently treated on levothyroxine 75 mcg daily. - Repeat TFT tests in 6 weeks - continue levothyroxine 75 mcg daily Assessment & Plan (04/19/2020 9:46 AM MATERIALS SUPERVISOR): Patient carries a diagnosis of hyperthyroidism for several years. He is currently treated on levothyroxine 75 mcg daily. - Repeat TFT tests in 6 weeks - continue levothyroxine 75 mcg daily Assessment & Plan (04/18/2020 10:09 AM MATERIALS SUPERVISOR): Patient carries a diagnosis of hyperthyroidism for several years. He is currently treated on levothyroxine 75 mcg daily. - Repeat TFT tests in 6 weeks - continue levothyroxine 75 mcg daily Assessment & Plan (04/17/2020 9:31 AM MATERIALS SUPERVISOR): Patient carries a diagnosis of hyperthyroidism for several years. He is currently treated on levothyroxine 75 mcg daily. - Repeat TFT tests in 6 weeks - continue levothyroxine 75 mcg daily Assessment & Plan (04/16/2020 11:51 AM MATERIALS SUPERVISOR): Patient carries a diagnosis of hyperthyroidism for several years. He is currently treated on levothyroxine 75 mcg daily. - Repeat TFT tests in 6 weeks - continue levothyroxine 75 mcg daily Assessment & Plan (04/14/2020 9:57 AM MATERIALS SUPERVISOR): Patient carries a diagnosis of hyperthyroidism for several years. He is currently treated on levothyroxine 75 mcg daily. - Repeat TFT tests in 6 weeks - continue levothyroxine 75 mcg daily Assessment & Plan (04/10/2020 3:25 PM MATERIALS SUPERVISOR): 04/02: TSH 6.49, T4 WNL at 1.38 Continue synthroid 75mcg; repeat TFTs 6-8 weeks Assessment & Plan (04/08/2020 3:17 PM MATERIALS SUPERVISOR): 04/02: TSH 6.49, T4 WNL at 1.38 Continue synthroid 75mcg; repeat TFTs 6-8 weeks Assessment & Plan (04/07/2020 6:16 AM MATERIALS SUPERVISOR): 04/02: TSH 6.49, T4 WNL at 1.38 Continue synthroid 75mcg; repeat TFTs 6-8 weeks Assessment & Plan (04/10/2020 9:35 PM MATERIALS SUPERVISOR): Patient carries a diagnosis of hyperthyroidism for several years. He is currently treated on levothyroxine 75 mcg daily. - Repeat TFT tests in 6 weeks - continue levothyroxine 75 mcg daily Hyperlipemia 04/03/2020 Assessment & Plan (05/04/2020 12:55 PM MATERIALS SUPERVISOR): Has a stated history of hyperlipidemia has been stably treated with atorvastatin 40 mg daily for many years. Patient's LDL low on lipid panel. Notable elevated triglycerides but not fasting sample. - atorvastatin 40 mg daily - fenofibrate 145mg daily Assessment & Plan (05/03/2020 9:56 AM MATERIALS SUPERVISOR): Has a stated history of hyperlipidemia has been stably treated with atorvastatin 40 mg daily for many years. Patient's LDL low on lipid panel. Notable elevated triglycerides but not fasting sample. - atorvastatin 40 mg daily - fenofibrate 145mg daily Assessment & Plan (05/02/2020 11:57 AM MATERIALS SUPERVISOR): Has a stated history of hyperlipidemia has been stably treated with atorvastatin 40 mg daily for many years. Patient's LDL low on lipid panel. Notable elevated triglycerides but not fasting sample. - atorvastatin 40 mg daily - fenofibrate 145mg daily Assessment & Plan (05/01/2020 10:58 AM MATERIALS SUPERVISOR): Has a stated history of hyperlipidemia has been stably treated with atorvastatin 40 mg daily for many years. Patient's LDL low on lipid panel. Notable elevated triglycerides but not fasting sample. - atorvastatin 40 mg daily - tricor 145mg daily Assessment & Plan (04/30/2020 12:17 PM MATERIALS SUPERVISOR): Has a stated history of hyperlipidemia has been stably treated with atorvastatin 40 mg daily for many years. Patient's LDL low on lipid panel. Notable elevated triglycerides but not fasting sample. - atorvastatin 40 mg daily - tricor 145mg daily Assessment & Plan (04/28/2020 8:01 AM MATERIALS SUPERVISOR): Has a stated history of hyperlipidemia has been stably treated with atorvastatin 40 mg daily for many years. Patient's LDL low on lipid panel. Notable elevated triglycerides but not fasting sample. - atorvastatin 40 mg daily - tricor 145mg daily Assessment & Plan (04/27/2020 8:47 AM MATERIALS SUPERVISOR): Has a stated history of hyperlipidemia has been stably treated with atorvastatin 40 mg daily for many years. Patient's LDL low on lipid panel. Notable elevated triglycerides but not fasting sample. - atorvastatin 40 mg daily - tricor 145mg daily Assessment & Plan (04/26/2020 10:11 AM MATERIALS SUPERVISOR): Has a stated history of hyperlipidemia has been stably treated with atorvastatin 40 mg daily for many years. Patient's LDL low on lipid panel. Notable elevated triglycerides but not fasting sample. - atorvastatin 40 mg daily - tricor 145mg daily Assessment & Plan (04/25/2020 9:45 AM MATERIALS SUPERVISOR): Has a stated history of hyperlipidemia has [...] daily Assessment & Plan (04/24/2020 9:48 AM MATERIALS SUPERVISOR): Has a stated history of hyperlipidemia has [...] daily Assessment & Plan (04/23/2020 10:21 AM MATERIALS SUPERVISOR): Has a stated history of hyperlipidemia has [...] daily Assessment & Plan (04/21/2020 8:38 AM MATERIALS SUPERVISOR): Has a stated history of hyperlipidemia has [...] daily Assessment & Plan (04/20/2020 12:05 PM MATERIALS SUPERVISOR): Has a stated history of hyperlipidemia has [...] daily Assessment & Plan (04/19/2020 9:46 AM MATERIALS SUPERVISOR): Has a stated history of hyperlipidemia has [...] daily Assessment & Plan (04/18/2020 10:09 AM MATERIALS SUPERVISOR): Has a stated history of hyperlipidemia has [...] daily Assessment & Plan (04/17/2020 9:31 AM MATERIALS SUPERVISOR): Has a stated history of hyperlipidemia has [...] daily Assessment & Plan (04/16/2020 11:51 AM MATERIALS SUPERVISOR): Has a stated history of hyperlipidemia has [...] daily Assessment & Plan (04/14/2020 9:56 AM MATERIALS SUPERVISOR): Has a stated history of hyperlipidemia has [...] daily Assessment & Plan (04/13/2020 9:46 AM MATERIALS SUPERVISOR): Has a stated history of hyperlipidemia has [...] daily Assessment & Plan (04/10/2020 3:25 PM MATERIALS SUPERVISOR): Continue atorvastatin 40 Assessment & Plan (04/08/2020 3:17 PM MATERIALS SUPERVISOR): Continue atorvastatin 40 Assessment & Plan (04/07/2020 6:15 AM MATERIALS SUPERVISOR): Continue atorvastatin 40 Assessment & Plan (04/12/2020 9:03 AM MATERIALS SUPERVISOR): Has a stated history of hyperlipidemia has [...] (08/31/2018): Added automatically from request for surgery [id number] Assessment & Plan (09/06/2018 12:49 PM CDT): [...] 04/10/2020 Assessment & Plan (05/04/2020 12:55 PM MATERIALS SUPERVISOR): Cr 1.3 -> 1.22 resolving. Baseline <1. - encourage fluids - avoid nephrotoxic meds Assessment & Plan (05/03/2020 9:56 AM MATERIALS SUPERVISOR): Cr 1.3 -> 1.22 resolving. Baseline <1. - encourage fluids - avoid nephrotoxic meds Assessment & Plan (05/02/2020 11:57 AM MATERIALS SUPERVISOR): Cr 1.3 -> 1.22 resolving. Baseline <1. - encourage fluids - avoid nephrotoxic meds Assessment & Plan (05/01/2020 10:58 AM MATERIALS SUPERVISOR): Cr 1.3 -> 1.22 resolving. Baseline <1. - encourage fluids - avoid nephrotoxic meds Assessment & Plan (04/19/2020 9:46 AM MATERIALS SUPERVISOR): Cr 1.3 -> 1.22 resolving. Baseline <1. - encourage fluids - avoid nephrotoxic meds Assessment & Plan (04/18/2020 10:09 AM MATERIALS SUPERVISOR): Cr 1.3 -> 1.22 resolving. Baseline <1. - encourage fluids - avoid nephrotoxic meds Assessment & Plan (04/16/2020 11:51 AM MATERIALS SUPERVISOR): Cr 1.3 -> 1.22 resolving. Baseline <1. - encourage fluids - avoid nephrotoxic meds Assessment & Plan (04/14/2020 9:57 AM MATERIALS SUPERVISOR): Cr 1.3 -> 1.22 resolving. Baseline <1. - encourage fluids - avoid nephrotoxic meds Assessment & Plan (04/13/2020 9:47 AM MATERIALS SUPERVISOR): Cr 1.3 -> 1.22 resolving. Baseline <1. - encourage fluids - avoid nephrotoxic meds Assessment & Plan (04/12/2020 9:04 AM MATERIALS SUPERVISOR): Cr 1.3 -> 1.22 resolving. Baseline <1. - encourage fluids - avoid nephrotoxic meds Diarrhea 04/10/2020 04/20/2020 Assessment & Plan (05/04/2020 12:55 PM MATERIALS SUPERVISOR): Patient recently had constipation, was treated with BID miralax and senna- docusate. Was having diarrhea last week so scheduled bowel regimen discontinued. - discontinued daily senna-docusate - miralax PRN Assessment & Plan (05/03/2020 9:56 AM MATERIALS SUPERVISOR): Patient recently had constipation, was treated with BID miralax and senna- docusate. Was having diarrhea last week so scheduled bowel regimen discontinued. - discontinued daily senna-docusate - miralax PRN Assessment & Plan (05/01/2020 10:59 AM MATERIALS SUPERVISOR): Patient recently had constipation, was treated with BID miralax and senna- docusate. Was having diarrhea last week so scheduled bowel regimen discontinued. - discontinued daily senna-docusate - miralax PRN Assessment & Plan (04/19/2020 9:47 AM MATERIALS SUPERVISOR): Patient recently had constipation, was treated with BID miralax and senna- docusate. Was having diarrhea last week so scheduled bowel regimen discontinued. - discontinued daily senna-docusate - miralax PRN Assessment & Plan (04/16/2020 11:52 AM MATERIALS SUPERVISOR): Patient recently had constipation, was treated with BID miralax and senna- docusate. Was having diarrhea last week so scheduled bowel regimen discontinued. - discontinue daily senna-docusate - miralax PRN Assessment & Plan (04/14/2020 9:57 AM MATERIALS SUPERVISOR): Patient recently had constipation, was treated with BID miralax and senna- docusate. Endorsing nonbloody diarrhea for last 2 days. - discontinue daily senna-docusate - miralax PRN Assessment & Plan (04/10/2020 10:09 PM MATERIALS SUPERVISOR): Patient recently had constipation, was treated with BID miralax and senna- docusate. Endorsing nonbloody diarrhea for last 2 days. - discontinue daily senna-docusate - miralax PRN Ventral hernia without obstr uction or gangrene 08/31/2018 04/20/2020 Overview (08/31/2018): Added automatically from request for surgery [id number] Assessment & Plan (09/06/2018 12:51 PM CDT): The procedure along with the risks, benefits, and post operative period were discussed with the patient and his significant other who agree. Fracture of navicular bone of foot 05/16/2015 04/20/2020
--- OUTSIDE RECORDS SUMMARY | 2024-10-20 12:01 | XMS_ITS | Referral Summary ---
Author Organization [facility] al Address [address] [place] [address] Care Team Providers Care Computer Systems Support Specialist Name Role Phone Kevin Meyer Primary Care Provider [phone] Kevin Meyer Unavailable [phone] Benja Esteban MD Unavailable [phone] Allergies Active Allergy Reactions Criticality Noted [...] 1 tablet (75 mcg total) by mouth buttonhole maker hand before breakfast Active venlafaxine XR (EFFEXOR-XR) 150 [...] (12/17/2020): Added automatically from request for surgery [id number] 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/13/2020 Overview (12/13/2020): Added automatically from request for surgery [id number] Malignant carcinoid tumor of the ileum Stimulant use disorder 05/31/2020 Severe alcohol use disorder 05/31/2020 PTSD (post-traumatic stress disorder) 05/31/2020 Chronic bilateral low back pain without sciatica 04/07/2020 Assessment & Plan (05/04/2020 12:54 PM MECHANIC'S ASSISTANT): - flexeril 10mg TID PRN - [place] 10mg q4 PRN - lidocaine patch daily - avoid IV ketorelac and NSAIDs with starting lithium - heating packs Assessment & Plan (05/03/2020 9:56 AM MECHANIC'S ASSISTANT): - flexeril 10mg TID PRN - [place] 10mg q4 PRN - lidocaine patch daily - avoid IV ketorelac and NSAIDs with starting lithium - heating packs Assessment & Plan (05/02/2020 11:56 AM MECHANIC'S ASSISTANT): - flexeril 10mg TID PRN - [place] 10mg q4 PRN - lidocaine patch daily - avoid IV ketorelac and NSAIDs with starting lithium - heating packs Assessment & Plan (05/01/2020 10:58 AM MECHANIC'S ASSISTANT): - flexeril 10mg TID PRN - NORCO 10mg q4 PRN - lidocaine patch daily - avoid IV ketorelac and NSAIDs with starting lithium - heating pads Assessment & Plan (04/30/2020 12:17 PM MECHANIC'S ASSISTANT): - flexeril 10mg TID PRN - NORCO 10mg q4 PRN - lidocaine patch daily - avoid IV ketorelac and NSAIDs with starting lithium - heating pads Assessment & Plan (04/28/2020 8:01 AM MECHANIC'S ASSISTANT): - flexeril 10mg TID PRN - NORCO 10mg q4 PRN - lidocaine patch daily - avoid IV ketorelac and NSAIDs with starting lithium - heating pads Assessment & Plan (04/27/2020 8:47 AM MECHANIC'S ASSISTANT): - flexeril 10mg TID PRN - NORCO 10mg q4 PRN - lidocaine patch daily - avoid IV ketorelac and NSAIDs given ADILENE - heating pads Assessment & Plan (04/26/2020 10:11 AM MECHANIC'S ASSISTANT): - flexeril 10mg TID PRN - NORCO 10mg q4 PRN - lidocaine patch daily - avoid IV ketorelac and NSAIDs given ADILENE - heating pads Assessment & Plan (04/25/2020 9:45 AM MECHANIC'S ASSISTANT): - flexeril 10mg TID PRN - NORCO 10mg q4 PRN - lidocaine patch daily - avoid IV ketorelac and NSAIDs given ADILENE - heating pads Assessment & Plan (04/24/2020 9:49 AM MECHANIC'S ASSISTANT): - flexeril 10mg TID PRN - NORCO 10mg q4 PRN - lidocaine patch daily - avoid IV ketorelac and NSAIDs given ADILENE - heating pads Assessment & Plan (04/23/2020 10:21 AM MECHANIC'S ASSISTANT): - flexeril 10mg TID PRN - NORCO 10mg q4 PRN - lidocaine patch daily - avoid IV ketorelac and NSAIDs given ADILENE - heating pads Assessment & Plan (04/21/2020 8:38 AM MECHANIC'S ASSISTANT): - flexeril 10mg TID PRN - NORCO 10mg q4 PRN - lidocaine patch daily - avoid IV ketorelac and NSAIDs given ADILENE - heating pads Assessment & Plan (04/20/2020 12:05 PM MECHANIC'S ASSISTANT): - flexeril 10mg TID PRN - NORCO 10mg q4 PRN - lidocaine patch daily - avoid IV ketorelac and NSAIDs given ADILENE - heating pads Assessment & Plan (04/19/2020 9:46 AM MECHANIC'S ASSISTANT): - flexeril 10mg TID PRN - NORCO 10mg q4 PRN - lidocaine patch daily - avoid IV ketorelac and NSAIDs given ADILENE - heating pads Assessment & Plan (04/18/2020 10:09 AM MECHANIC'S ASSISTANT): - flexeril 10mg TID PRN - NORCO 10mg q4 PRN - lidocaine patch daily - avoid IV ketorelac and NSAIDs given ADILENE - heating pads Assessment & Plan (04/17/2020 9:31 AM MECHANIC'S ASSISTANT): - flexeril 10mg TID PRN - NORCO 10mg q4 PRN - lidocaine patch daily - avoid IV ketorelac and NSAIDs given ADILENE - heating pads Assessment & Plan (04/16/2020 11:51 AM MECHANIC'S ASSISTANT): - flexeril 10mg TID PRN - NORCO 10mg q4 PRN - lidocaine patch daily - avoid IV ketorelac and NSAIDs given ADILENE - heating pads Assessment & Plan (04/14/2020 9:57 AM MECHANIC'S ASSISTANT): - flexeril 10mg TID PRN - NORCO 10mg q4 PRN - lidocaine patch daily - avoid IV ketorelac and NSAIDs given ADILENE - heating pads Assessment & Plan (04/10/2020 10:04 PM MECHANIC'S ASSISTANT): - flexeril 10mg TID PRN - NORCO 10mg q4 PRN - lidocaine patch daily - avoid IV ketorelac and NSAIDs given ADILENE - heating pads Assessment & Plan (04/08/2020 3:23 PM MECHANIC'S ASSISTANT): Patient endorsing exacerbation of chronic back pain [...] -PT Assessment & Plan (04/07/2020 6:23 AM MECHANIC'S ASSISTANT): Patient endorsing exacerbation of chronic back pain and left ankle pain (had previous traumatic injury, required surgery). No other red flag symptoms/signs. Reports he has received injections in the past -Continue PRN norco, flexeril -Lidocaine patch to back -PT Depressive disorder 04/03/2020 Assessment & Plan (05/04/2020 12:54 PM MECHANIC'S ASSISTANT): 54yo M with reported history of bipolar [...] more bright. Plan to discharge patient 05/04. Lockett augmentation started with moderate improvements seen in depressive symptoms with ECT, titrated to 300 mg BID with level 0.6. - Continue OLANZapine, 20 mg, oral, Nightly, for depression - Continue Venlafaxine XR 150 mg PO daily, for depression - Continue lithium to 300 mg BID - Lockett level 0.6 on 05/03 - This is [...] 05/04 Assessment & Plan (05/03/2020 9:56 AM MECHANIC'S ASSISTANT): 54yo M with reported history of bipolar [...] more bright. Plan to discharge patient 05/04. Lockett augmentation started with moderate improvements seen in depressive symptoms with ECT, titrated to 300 mg BID with level 0.6. - Continue OLANZapine, 20 mg, oral, Nightly, for depression - Continue Venlafaxine XR 150 mg PO daily, for depression - Continue lithium to 300 mg BID - Lockett level 0.6 on 05/03 - This is [...] permission) Assessment & Plan (05/02/2020 11:56 AM MECHANIC'S ASSISTANT): 54yo M with reported history of bipolar [...] permission) Assessment & Plan (05/01/2020 10:58 AM MECHANIC'S ASSISTANT): 54yo M with reported history of bipolar [...] family Assessment & Plan (04/30/2020 12:17 PM MECHANIC'S ASSISTANT): 54yo M with reported history of bipolar [...] family Assessment & Plan (04/28/2020 8:02 AM MECHANIC'S ASSISTANT): 54yo M with reported history of bipolar [...] depression Assessment & Plan (04/27/2020 8:47 AM MECHANIC'S ASSISTANT): 54yo M with reported history of bipolar [...] depression Assessment & Plan (04/26/2020 10:11 AM MECHANIC'S ASSISTANT): 54yo M with reported history of bipolar [...] depression Assessment & Plan (04/25/2020 9:47 AM MECHANIC'S ASSISTANT): 54yo M with reported history of bipolar [...] depression Assessment & Plan (04/24/2020 9:48 AM MECHANIC'S ASSISTANT): 54yo M with reported history of bipolar [...] depression Assessment & Plan (04/23/2020 10:21 AM MECHANIC'S ASSISTANT): 54yo M with reported history of bipolar [...] depression Assessment & Plan (04/21/2020 8:36 AM MECHANIC'S ASSISTANT): 54yo M with reported history of bipolar [...] depression Assessment & Plan (04/20/2020 12:05 PM MECHANIC'S ASSISTANT): 54yo M with reported history of bipolar [...] depression Assessment & Plan (04/19/2020 9:48 AM MECHANIC'S ASSISTANT): 54yo M with reported history of bipolar [...] depression Assessment & Plan (04/18/2020 10:08 AM MECHANIC'S ASSISTANT): 54yo M with reported history of bipolar [...] depression Assessment & Plan (04/17/2020 9:32 AM MECHANIC'S ASSISTANT): 54yo M with reported history of bipolar [...] depression Assessment & Plan (04/16/2020 11:49 AM MECHANIC'S ASSISTANT): 54yo M with reported history of bipolar [...] depression Assessment & Plan (04/14/2020 9:56 AM MECHANIC'S ASSISTANT): 54yo M with reported history of bipolar [...] depression Assessment & Plan (04/13/2020 9:46 AM MECHANIC'S ASSISTANT): 54yo M with reported history of bipolar [...] for ECT by cardiology, no diagnosis of ischemia/TX, no focal wall movement abnormalities on echo, [...] procedure Assessment & Plan (04/10/2020 3:25 PM MECHANIC'S ASSISTANT): Presented to ED 04/02 with suicidal ideation, depression. Initially admitted to psychiatry for medication adjustment, received ECT x1 04/06 -Continue current meds: lexapro 5, effexor 112.5, olanzapine 20mg QHS - If COVID test is negative, transfer to Psychiatry floor. Assessment & Plan (04/08/2020 3:24 PM MECHANIC'S ASSISTANT): Presented to ED 04/02 with suicidal ideation, depression. Initially admitted to psychiatry for medication adjustment, received ECT x1 04/06 -Psych consulted upon transfer to medicine but are following only peripherally over the weekend -Continue current meds: lexapro 5, effexor 112.5, olanzapine 20mg QHS -Psychiatry recommending discontinuing suicide precautions with 1:1 sitter Assessment & Plan (04/07/2020 6:14 AM MECHANIC'S ASSISTANT): Presented to ED 04/02 with suicidal ideation, depression. Initially admitted to psychiatry for medication adjustment, received ECT x1 04/06 -Psych c/s upon transfer -Continue current meds: lexapro 5, effexor 112.5, olanzapine 20mg QHS -Suicide precautions, 1:1 sitter Assessment & Plan (04/12/2020 9:11 AM MECHANIC'S ASSISTANT): 54yo M with reported history of bipolar [...] for ECT by cardiology, no diagnosis of ischemia/TX, no focal wall movement abnormalities on echo, [...] midnight Assessment & Plan (04/03/2020 2:04 PM MECHANIC'S ASSISTANT): 54yo M with reported history of bipolar [...] in ECT, will facilitate transfer to [facility] to facilitate ECT consult Uptitrate SSRI and otherwise continue home depakote and zyprexa (pt reports taking these medications daily for past several yrs) PRNs agitation and comfort Milieu, supportive, and group therapy Apprec intervention Obtain collateral Full code Dispo: home with GERD (gastroesophageal reflux disease) Assessment & Plan (05/04/2020 12:54 PM MECHANIC'S ASSISTANT): Patient has a long history of GERD. - Protonix 40 mg daily Assessment & Plan (05/03/2020 9:56 AM MECHANIC'S ASSISTANT): Patient has a long history of GERD. - Protonix 40 mg daily Assessment & Plan (05/02/2020 11:57 AM MECHANIC'S ASSISTANT): Patient has a long history of GERD. - Protonix 40 mg daily Assessment & Plan (05/01/2020 10:58 AM MECHANIC'S ASSISTANT): Patient has a long history of GERD. - Protonix 40 mg daily Assessment & Plan (04/30/2020 12:17 PM MECHANIC'S ASSISTANT): Patient has a long history of GERD. - Protonix 40 mg daily Assessment & Plan (04/28/2020 8:00 AM MECHANIC'S ASSISTANT): Patient has a long history of GERD. -Protonix 40 mg daily Assessment & Plan (04/27/2020 8:47 AM MECHANIC'S ASSISTANT): Patient has a long history of GERD. -Protonix 40 mg daily Assessment & Plan (04/26/2020 10:11 AM MECHANIC'S ASSISTANT): Patient has a long history of GERD. -Protonix 40 mg daily Assessment & Plan (04/25/2020 9:45 AM MECHANIC'S ASSISTANT): Patient has a long history of GERD. -Protonix 40 mg daily Assessment & Plan (04/24/2020 9:48 AM MECHANIC'S ASSISTANT): Patient has a long history of GERD. -Protonix 40 mg daily Assessment & Plan (04/23/2020 10:21 AM MECHANIC'S ASSISTANT): Patient has a long history of GERD. -Protonix 40 mg daily Assessment & Plan (04/21/2020 8:37 AM MECHANIC'S ASSISTANT): Patient has a long history of GERD. -Protonix 40 mg daily Assessment & Plan (04/20/2020 12:05 PM MECHANIC'S ASSISTANT): Patient has a long history of GERD. -Protonix 40 mg daily Assessment & Plan (04/19/2020 9:46 AM MECHANIC'S ASSISTANT): Patient has a long history of GERD. -Protonix 40 mg daily Assessment & Plan (04/18/2020 10:09 AM MECHANIC'S ASSISTANT): Patient has a long history of GERD. -Protonix 40 mg daily Assessment & Plan (04/17/2020 9:31 AM MECHANIC'S ASSISTANT): Patient has a long history of GERD. -Protonix 40 mg daily Assessment & Plan (04/16/2020 11:51 AM MECHANIC'S ASSISTANT): Patient has a long history of GERD. -Protonix 40 mg daily Assessment & Plan (04/14/2020 9:56 AM MECHANIC'S ASSISTANT): Patient has a long history of GERD. -Protonix 40 mg daily Assessment & Plan (04/10/2020 3:25 PM MECHANIC'S ASSISTANT): Continue pantoprazole Assessment & Plan (04/08/2020 3:17 PM MECHANIC'S ASSISTANT): Continue pantoprazole Assessment & Plan (04/07/2020 6:15 AM MECHANIC'S ASSISTANT): Continue pantoprazole Assessment & Plan (04/03/2020 5:54 PM MECHANIC'S ASSISTANT): Patient has a long history of GERD. -Protonix 40 mg daily Hypothyroidism 04/03/2020 Assessment & Plan (05/04/2020 12:54 PM MECHANIC'S ASSISTANT): Patient carries a diagnosis of hypothyroidism for several years. He is currently treated on levothyroxine 75 mcg daily. - Repeat TFT tests in 6 weeks - continue levothyroxine 75 mcg daily Assessment & Plan (05/03/2020 9:56 AM MECHANIC'S ASSISTANT): Patient carries a diagnosis of hypothyroidism for several years. He is currently treated on levothyroxine 75 mcg daily. - Repeat TFT tests in 6 weeks - continue levothyroxine 75 mcg daily Assessment & Plan (05/02/2020 11:57 AM MECHANIC'S ASSISTANT): Patient carries a diagnosis of hyperthyroidism for several years. He is currently treated on levothyroxine 75 mcg daily. - Repeat TFT tests in 6 weeks - continue levothyroxine 75 mcg daily Assessment & Plan (05/01/2020 10:58 AM MECHANIC'S ASSISTANT): Patient carries a diagnosis of hyperthyroidism for several years. He is currently treated on levothyroxine 75 mcg daily. - Repeat TFT tests in 6 weeks - continue levothyroxine 75 mcg daily Assessment & Plan (04/30/2020 12:17 PM MECHANIC'S ASSISTANT): Patient carries a diagnosis of hyperthyroidism for several years. He is currently treated on levothyroxine 75 mcg daily. - Repeat TFT tests in 6 weeks - continue levothyroxine 75 mcg daily Assessment & Plan (04/28/2020 8:00 AM MECHANIC'S ASSISTANT): Patient carries a diagnosis of hyperthyroidism for several years. He is currently treated on levothyroxine 75 mcg daily. - Repeat TFT tests in 6 weeks - continue levothyroxine 75 mcg daily Assessment & Plan (04/27/2020 8:47 AM MECHANIC'S ASSISTANT): Patient carries a diagnosis of hyperthyroidism for several years. He is currently treated on levothyroxine 75 mcg daily. - Repeat TFT tests in 6 weeks - continue levothyroxine 75 mcg daily Assessment & Plan (04/26/2020 10:11 AM MECHANIC'S ASSISTANT): Patient carries a diagnosis of hyperthyroidism for several years. He is currently treated on levothyroxine 75 mcg daily. - Repeat TFT tests in 6 weeks - continue levothyroxine 75 mcg daily Assessment & Plan (04/25/2020 9:45 AM MECHANIC'S ASSISTANT): Patient carries a diagnosis of hyperthyroidism for several years. He is currently treated on levothyroxine 75 mcg daily. - Repeat TFT tests in 6 weeks - continue levothyroxine 75 mcg daily Assessment & Plan (04/24/2020 9:48 AM MECHANIC'S ASSISTANT): Patient carries a diagnosis of hyperthyroidism for several years. He is currently treated on levothyroxine 75 mcg daily. - Repeat TFT tests in 6 weeks - continue levothyroxine 75 mcg daily Assessment & Plan (04/23/2020 10:21 AM MECHANIC'S ASSISTANT): Patient carries a diagnosis of hyperthyroidism for several years. He is currently treated on levothyroxine 75 mcg daily. - Repeat TFT tests in 6 weeks - continue levothyroxine 75 mcg daily Assessment & Plan (04/21/2020 8:37 AM MECHANIC'S ASSISTANT): Patient carries a diagnosis of hyperthyroidism for several years. He is currently treated on levothyroxine 75 mcg daily. - Repeat TFT tests in 6 weeks - continue levothyroxine 75 mcg daily Assessment & Plan (04/20/2020 12:05 PM MECHANIC'S ASSISTANT): Patient carries a diagnosis of hyperthyroidism for several years. He is currently treated on levothyroxine 75 mcg daily. - Repeat TFT tests in 6 weeks - continue levothyroxine 75 mcg daily Assessment & Plan (04/19/2020 9:46 AM MECHANIC'S ASSISTANT): Patient carries a diagnosis of hyperthyroidism for several years. He is currently treated on levothyroxine 75 mcg daily. - Repeat TFT tests in 6 weeks - continue levothyroxine 75 mcg daily Assessment & Plan (04/18/2020 10:09 AM MECHANIC'S ASSISTANT): Patient carries a diagnosis of hyperthyroidism for several years. He is currently treated on levothyroxine 75 mcg daily. - Repeat TFT tests in 6 weeks - continue levothyroxine 75 mcg daily Assessment & Plan (04/17/2020 9:31 AM MECHANIC'S ASSISTANT): Patient carries a diagnosis of hyperthyroidism for several years. He is currently treated on levothyroxine 75 mcg daily. - Repeat TFT tests in 6 weeks - continue levothyroxine 75 mcg daily Assessment & Plan (04/16/2020 11:51 AM MECHANIC'S ASSISTANT): Patient carries a diagnosis of hyperthyroidism for several years. He is currently treated on levothyroxine 75 mcg daily. - Repeat TFT tests in 6 weeks - continue levothyroxine 75 mcg daily Assessment & Plan (04/14/2020 9:57 AM MECHANIC'S ASSISTANT): Patient carries a diagnosis of hyperthyroidism for several years. He is currently treated on levothyroxine 75 mcg daily. - Repeat TFT tests in 6 weeks - continue levothyroxine 75 mcg daily Assessment & Plan (04/10/2020 3:25 PM MECHANIC'S ASSISTANT): 04/02: TSH 6.49, T4 WNL at 1.38 Continue synthroid 75mcg; repeat TFTs 6-8 weeks Assessment & Plan (04/08/2020 3:17 PM MECHANIC'S ASSISTANT): 04/02: TSH 6.49, T4 WNL at 1.38 Continue synthroid 75mcg; repeat TFTs 6-8 weeks Assessment & Plan (04/07/2020 6:16 AM MECHANIC'S ASSISTANT): 04/02: TSH 6.49, T4 WNL at 1.38 Continue synthroid 75mcg; repeat TFTs 6-8 weeks Assessment & Plan (04/10/2020 9:35 PM MECHANIC'S ASSISTANT): Patient carries a diagnosis of hyperthyroidism for several years. He is currently treated on levothyroxine 75 mcg daily. - Repeat TFT tests in 6 weeks - continue levothyroxine 75 mcg daily Hyperlipemia 04/03/2020 Assessment & Plan (05/04/2020 12:55 PM MECHANIC'S ASSISTANT): Has a stated history of hyperlipidemia has been stably treated with atorvastatin 40 mg daily for many years. Patient's LDL low on lipid panel. Notable elevated triglycerides but not fasting sample. - atorvastatin 40 mg daily - fenofibrate 145mg daily Assessment & Plan (05/03/2020 9:56 AM MECHANIC'S ASSISTANT): Has a stated history of hyperlipidemia has been stably treated with atorvastatin 40 mg daily for many years. Patient's LDL low on lipid panel. Notable elevated triglycerides but not fasting sample. - atorvastatin 40 mg daily - fenofibrate 145mg daily Assessment & Plan (05/02/2020 11:57 AM MECHANIC'S ASSISTANT): Has a stated history of hyperlipidemia has been stably treated with atorvastatin 40 mg daily for many years. Patient's LDL low on lipid panel. Notable elevated triglycerides but not fasting sample. - atorvastatin 40 mg daily - fenofibrate 145mg daily Assessment & Plan (05/01/2020 10:58 AM MECHANIC'S ASSISTANT): Has a stated history of hyperlipidemia has been stably treated with atorvastatin 40 mg daily for many years. Patient's LDL low on lipid panel. Notable elevated triglycerides but not fasting sample. - atorvastatin 40 mg daily - tricor 145mg daily Assessment & Plan (04/30/2020 12:17 PM MECHANIC'S ASSISTANT): Has a stated history of hyperlipidemia has been stably treated with atorvastatin 40 mg daily for many years. Patient's LDL low on lipid panel. Notable elevated triglycerides but not fasting sample. - atorvastatin 40 mg daily - tricor 145mg daily Assessment & Plan (04/28/2020 8:01 AM MECHANIC'S ASSISTANT): Has a stated history of hyperlipidemia has been stably treated with atorvastatin 40 mg daily for many years. Patient's LDL low on lipid panel. Notable elevated triglycerides but not fasting sample. - atorvastatin 40 mg daily - tricor 145mg daily Assessment & Plan (04/27/2020 8:47 AM MECHANIC'S ASSISTANT): Has a stated history of hyperlipidemia has been stably treated with atorvastatin 40 mg daily for many years. Patient's LDL low on lipid panel. Notable elevated triglycerides but not fasting sample. - atorvastatin 40 mg daily - tricor 145mg daily Assessment & Plan (04/26/2020 10:11 AM MECHANIC'S ASSISTANT): Has a stated history of hyperlipidemia has been stably treated with atorvastatin 40 mg daily for many years. Patient's LDL low on lipid panel. Notable elevated triglycerides but not fasting sample. - atorvastatin 40 mg daily - tricor 145mg daily Assessment & Plan (04/25/2020 9:45 AM MECHANIC'S ASSISTANT): Has a stated history of hyperlipidemia has [...] daily Assessment & Plan (04/24/2020 9:48 AM MECHANIC'S ASSISTANT): Has a stated history of hyperlipidemia has [...] daily Assessment & Plan (04/23/2020 10:21 AM MECHANIC'S ASSISTANT): Has a stated history of hyperlipidemia has [...] daily Assessment & Plan (04/21/2020 8:38 AM MECHANIC'S ASSISTANT): Has a stated history of hyperlipidemia has [...] daily Assessment & Plan (04/20/2020 12:05 PM MECHANIC'S ASSISTANT): Has a stated history of hyperlipidemia has [...] daily Assessment & Plan (04/19/2020 9:46 AM MECHANIC'S ASSISTANT): Has a stated history of hyperlipidemia has [...] daily Assessment & Plan (04/18/2020 10:09 AM MECHANIC'S ASSISTANT): Has a stated history of hyperlipidemia has [...] daily Assessment & Plan (04/17/2020 9:31 AM MECHANIC'S ASSISTANT): Has a stated history of hyperlipidemia has [...] daily Assessment & Plan (04/16/2020 11:51 AM MECHANIC'S ASSISTANT): Has a stated history of hyperlipidemia has [...] daily Assessment & Plan (04/14/2020 9:56 AM MECHANIC'S ASSISTANT): Has a stated history of hyperlipidemia has [...] daily Assessment & Plan (04/13/2020 9:46 AM MECHANIC'S ASSISTANT): Has a stated history of hyperlipidemia has [...] daily Assessment & Plan (04/10/2020 3:25 PM MECHANIC'S ASSISTANT): Continue atorvastatin 40 Assessment & Plan (04/08/2020 3:17 PM MECHANIC'S ASSISTANT): Continue atorvastatin 40 Assessment & Plan (04/07/2020 6:15 AM MECHANIC'S ASSISTANT): Continue atorvastatin 40 Assessment & Plan (04/12/2020 9:03 AM MECHANIC'S ASSISTANT): Has a stated history of hyperlipidemia has [...] (08/31/2018): Added automatically from request for surgery [id number] Assessment & Plan (09/06/2018 12:49 PM CDT): [...] 04/10/2020 Assessment & Plan (05/04/2020 12:55 PM MECHANIC'S ASSISTANT): Cr 1.3 -> 1.22 resolving. Baseline <1. - encourage fluids - avoid nephrotoxic meds Assessment & Plan (05/03/2020 9:56 AM MECHANIC'S ASSISTANT): Cr 1.3 -> 1.22 resolving. Baseline <1. - encourage fluids - avoid nephrotoxic meds Assessment & Plan (05/02/2020 11:57 AM MECHANIC'S ASSISTANT): Cr 1.3 -> 1.22 resolving. Baseline <1. - encourage fluids - avoid nephrotoxic meds Assessment & Plan (05/01/2020 10:58 AM MECHANIC'S ASSISTANT): Cr 1.3 -> 1.22 resolving. Baseline <1. - encourage fluids - avoid nephrotoxic meds Assessment & Plan (04/19/2020 9:46 AM MECHANIC'S ASSISTANT): Cr 1.3 -> 1.22 resolving. Baseline <1. - encourage fluids - avoid nephrotoxic meds Assessment & Plan (04/18/2020 10:09 AM MECHANIC'S ASSISTANT): Cr 1.3 -> 1.22 resolving. Baseline <1. - encourage fluids - avoid nephrotoxic meds Assessment & Plan (04/16/2020 11:51 AM MECHANIC'S ASSISTANT): Cr 1.3 -> 1.22 resolving. Baseline <1. - encourage fluids - avoid nephrotoxic meds Assessment & Plan (04/14/2020 9:57 AM MECHANIC'S ASSISTANT): Cr 1.3 -> 1.22 resolving. Baseline <1. - encourage fluids - avoid nephrotoxic meds Assessment & Plan (04/13/2020 9:47 AM MECHANIC'S ASSISTANT): Cr 1.3 -> 1.22 resolving. Baseline <1. - encourage fluids - avoid nephrotoxic meds Assessment & Plan (04/12/2020 9:04 AM MECHANIC'S ASSISTANT): Cr 1.3 -> 1.22 resolving. Baseline <1. - encourage fluids - avoid nephrotoxic meds Diarrhea 04/10/2020 04/20/2020 Assessment & Plan (05/04/2020 12:55 PM MECHANIC'S ASSISTANT): Patient recently had constipation, was treated with BID miralax and senna- docusate. Was having diarrhea last week so scheduled bowel regimen discontinued. - discontinued daily senna-docusate - miralax PRN Assessment & Plan (05/03/2020 9:56 AM MECHANIC'S ASSISTANT): Patient recently had constipation, was treated with BID miralax and senna- docusate. Was having diarrhea last week so scheduled bowel regimen discontinued. - discontinued daily senna-docusate - miralax PRN Assessment & Plan (05/01/2020 10:59 AM MECHANIC'S ASSISTANT): Patient recently had constipation, was treated with BID miralax and senna- docusate. Was having diarrhea last week so scheduled bowel regimen discontinued. - discontinued daily senna-docusate - miralax PRN Assessment & Plan (04/19/2020 9:47 AM MECHANIC'S ASSISTANT): Patient recently had constipation, was treated with BID miralax and senna- docusate. Was having diarrhea last week so scheduled bowel regimen discontinued. - discontinued daily senna-docusate - miralax PRN Assessment & Plan (04/16/2020 11:52 AM MECHANIC'S ASSISTANT): Patient recently had constipation, was treated with BID miralax and senna- docusate. Was having diarrhea last week so scheduled bowel regimen discontinued. - discontinue daily senna-docusate - miralax PRN Assessment & Plan (04/14/2020 9:57 AM MECHANIC'S ASSISTANT): Patient recently had constipation, was treated with BID miralax and senna- docusate. Endorsing nonbloody diarrhea for last 2 days. - discontinue daily senna-docusate - miralax PRN Assessment & Plan (04/10/2020 10:09 PM MECHANIC'S ASSISTANT): Patient recently had constipation, was treated with BID miralax and senna- docusate. Endorsing nonbloody diarrhea for last 2 days. - discontinue daily senna-docusate - miralax PRN Ventral hernia without obstr uction or gangrene 08/31/2018 04/20/2020 Overview (08/31/2018): Added automatically from request for surgery [id number] Assessment & Plan (09/06/2018 12:51 PM CDT): [...] week 02/01/2021 How often do you attend [facility] or sikhism services? More than 4 times per year 02/01/2021 Do you belong to any clubs o r organizations such as congregational groups, unions, fraternal or athletic groups, or [...] Date Recorded PHQ-2 Total Score 4 04/03/2020 [facility] [...] place to sleep or slept in a fpc (including now)? No 02/01/2021 Personal Safety Answer Date Recorded Have you ever been in or are you currently in a harmful physical or emotional relationship or is someone making you feel afraid or unsafe? Denies 03/11/2024 Sex and Gender Information Value Date Recorded Sex Assigned at Not on file Legal Sex Male 3:25 AM MECHANIC'S ASSISTANT Gender Identity Male 03/26/2021 11:53 AM MECHANIC'S ASSISTANT Sexual Orientation Choose not to disclose 2021 11:53 AM MECHANIC'S ASSISTANT Occupation Industry Job Start Date Job End Date disabled Not on file Not on file Not on file Last Filed Vital Signs Vital Sign Reading Time Taken Comments Blood Pressure 126/74 04/06/2024 9:02 AM MECHANIC'S ASSISTANT Pulse 68 04/06/2024 9:02 AM MECHANIC'S ASSISTANT Temperature 36.2 C (97.1 F) 04/06/2024 9:02 AM MECHANIC'S ASSISTANT Respiratory Rate 16 03/11/2024 4:45 PM MECHANIC'S ASSISTANT Oxygen Saturation 95% 04/06/2024 9:02 AM MECHANIC'S ASSISTANT Inhaled Oxygen Concentration - - Weight 97.3 kg (214 lb 9.6 oz) 04/06/2024 9:02 A M MECHANIC'S ASSISTANT Height 182.9 cm (6') 04/06/2024 9:02 AM MECHANIC'S ASSISTANT Body Mass Index 29.1 04/06/2024 9:02 AM MECHANIC'S ASSISTANT Plan of Treatment Not on file Medical Devices Implanted Type Area Tennis Coach Device Identifier Shelf Expiration Date Model / Serial / Lot [employer] Inc/C R Bard [id number] Ventralight St Sepra 4.5in Uncoated Monofilament Lightweight - [id number] Implanted:Qty: 1 on 09/09/2018 by Xavier Aviles MD at [facility] N/A: Abdomen [employer] Inc/C R Bard 12/19/2019 [id number] / / [id number] Adore Me [id number] Mini Ignite Power Mix Injectable Graft 4ml Synthetic Tissue - [id number] - [id number] Implanted:Qty: 1 on 01/29/2021 by Don Kevin MD at [facility] Adore Me 07/08/2023 [id number] / [id number] / Vgift [id number] Medline Unite 7mm 6.5mm 80mm 16mm Cannulated Color Coded Headless - [id number] Implanted:Qty: 1 on 01/29/2021 by Don Kevin MD at [facility] Left: Foot Vgift [id number] / / Vgift [id number] Medline Unite 6.5mm 90mm 16mm Cannulated Color Coded Headless - [id number] Implanted:Qty: 1 on 01/29/2021 by Don Kevin MD at [facility] Medicine Left: Foot [employer] [id number] / / Medline Sayah Inc [id number] Screw Bone L50mm Od4.5mm Foot Ankle Cannulated Color Coded Osteotomy - [id number] Implanted:Qty: 1 on 01/29/2021 by Don Kevin MD at [facility] Left: Foot [employer] [id number] / / 20x20 Nitnol Staple Implanted:Qty: 1 on 01/29/2021 by Don Kevin MD at [facility] Left: Foot [employer] Description:[id number] [employer] [id number] Bit 3.3mm Drill Cannulated Ao Quick Connect Color Coded - [id number] Implanted:Qty: 1 on 01/29/2021 by Don Kevin MD at [facility] Left: Foot [employer] [id number] / / Procedures Procedure Name Priority Date/Time [...] Testing performed by: [facility], [address] [place] [address], [place] [address] Blood specimen (specimen) 12/20/2019 2:31 PM CDT 12/20/2019 6:54 PM CDT us Raoul Best MD LAB BLOOD ORDERABLES Final Re sult YULY HUNTER SAIMA 1 [facility] Department [place] [address] * COLONOSCOPY (11/18/2017 7:41 AM CDT) Anatomical Region Laterality Modality Other Narrative Procedure Note Alexander Pitts MD - 11/18/2017 7:41 AM CDT [facility] Patient Name: Baljeet Herman Procedure Date: 11/18/2017 7:41 AM Date of : 1965 Admit Type: Outpatient Age: 52 Gender: Male Attending MD: Alexander Pitts MD Room: [facility] ENDOSCOPY ROOM 2 Note Status: [...] passed under direct vision.The Pediatric Colonoscope PCF-[id number] was introduced through the anus and advanced [...] malignant neoplasm of largeintestine CPT copyright 2017 [employer]. All rights reserved. The codes documented in this report are preliminary and upon geriatric case manager reviewmay be revised to meet current compliance requirements. Recognized by the [place] [employer] for promoting quality in endoscopy Alexander Pitts MD ENDOSCOPY PROCEDURES Final Result from Last 3 Months or Most Recently Relevant to Health Maintenance Insurance MEDICARE IDPA IDPA [facility] MEDICARE ADVANTAGE [facility] MEDICARE ADVANTAGE IDPA Advance Directives For more information, please contact: [phone] Documents on File Type Date Recorded Patient General Sales Manager Expl anation ADVANCE DIRECTIVE 03/10/2019 8:47 AM John [employer] * Full Code (Latest Code Status on [...] 9:14 AM 05/11/2020 5:01 AM Care Teams Computer Systems Support Specialist Relationship Specialty Start Date End Date Kevin Meyer PA [address] [place] [address] PCP - General 03/23/19 Kevin Meyer PA [address] [place] [address] 03/23/19 Benja Esteban MD [address] [place] [address] Medical Oncologist/Safety Deposit Boxes Custodian Hematology and Oncology 02/28/20
--- OUTSIDE RECORDS SUMMARY | 2024-10-20 12:01 | XMS_ITS ---
Author Name Miky Thomason Address Unknown Organization [place], [place] Care Team Providers Care Jackscrew Worker Name Role Phone Unavailable Primary Care Physician Unavailab le History Of Present Illness This is a 59 year old male who is being seen for a chief complaint of foot pain, involving the leftfoot. The patient has noticed a painful skin lesion on the plantar aspect of the left foot. It is painful in shoe gear and ambulation. He is interested in treatment options Allergies, Adverse Reactions, Alerts Substance RxNorm Reaction(s) Severity Status Start Da te Bactrim unspecified active Gabapentin. Side effect. Bee stings breathing issues N/A N/A N/A N/A N/A Medications Medication Generic Name RxNorm Strength Strength Unit Route Dose Dose Form Frequency Date Started Date Ended Status Indication Sig Ambien zolpidem 10 mg Oral table t active dicloxacill in 500 mg Oral capsu le active hydrocodone -ibuprofen 7.5-200 mg Oral table t active levothyroxi ne 75 mcg Oral table t active Loreev XR 1 mg Oral capsu le,ex tende d relea se 24hr active Lyrica pregabal in 022348 75 mg Oral capsu le 02/19/20 23 active i tab PO BID Medrol (Lizandro) methylpr ednisolo ne 4 mg Oral table ts,do se pack 07/03/19 23 active as dire cted Medrol (Lizandro) methylpr ednisolo ne 4 mg Oral table ts,do se pack 08/16/19 23 active as dire cted prazosin 1 mg Oral capsu le active quetiapine 100 mg Oral table t active ropinirole 1 mg Oral table t active trazodone 50 mg Oral table t active venlafaxine 150 mg Oral caps u le,ex tende d relea se 24hr active Problems Problem Code Type Status Date of Diagnosis Da te of Resolution Osteoarthritis of joint of left ankle and/or foot (disorder) 873775010(SN OMED) Diagnosis active 10/19/2024 Enthesopathy of lower limb (disorder) 434437202(SN OMED) Diagnosis active 10/19/2024 Benign neoplasm of skin (disorder) 93225536(SNO MED) Diagnosis active 10/19/2024 Plantar nerve lesion (disorder) 147258493(SN OMED) Diagnosis active 02/15/2024 Plantar nerve lesion (disorder) 781600203(SN OMED) Diagnosis active 11/16/2023 Osteoarthritis of joint of left ankle and/or foot (disorder) 707343534(SN OMED) Diagnosis active 10/05/2023 Enthesopathy of lower limb (disorder) 489210563(SN OMED) Diagnosis active 10/05/2023 Plantar nerve lesion (disorder) 197302810(SN OMED) Diagnosis active 10/05/2023 Plantar nerve lesion (disorder) 130217096(SN OMED) Diagnosis active 07/31/2023 Osteoarthritis of joint of left ankle and/or foot (disorder) 049838675(SN OMED) Diagnosis active 06/03/2023 Enthesopathy of lower limb (disorder) 124950702(SN OMED) Diagnosis active 06/03/2023 Lateral plantar neuropathy (disorder) 73919450(SNO MED) Diagnosis active 06/03/2023 Lateral plantar neuropathy (disorder) 91225335(SNO MED) Diagnosis active 05/22/2023 Lateral plantar neuropathy (disorder) 03354955(SNO MED) Diagnosis active 04/23/2023 Osteoarthritis of joint of left ankle and/or foot (disorder) 395991044(SN OMED) Diagnosis active 02/18/2023 Enthesopathy of lower limb (disorder) 065961373(SN OMED) Diagnosis active 02/18/2023 Lateral plantar neuropathy (disorder) 31983627(SNO MED) Diagnosis active 02/18/2023 Osteoarthritis of joint of left ankle and/or foot (disorder) 616232026(SN OMED) Diagnosis active 01/19/2023 Enthesopathy of lower limb (disorder) 619784278(SN OMED) Diagnosis active 01/19/2023 Osteoarthritis of joint of left ankle and/or foot (disorder) 125630420(SN OMED) Diagnosis active 11/19/2022 Enthesopathy of lower limb (disorder) 830155570(SN OMED) Diagnosis active 11/19/2022 Osteoarthritis of joint of left ankle and/or foot (disorder) 801170217(SN OMED) Diagnosis active 10/01/2022 Osteoarthritis of joint of left ankle and/or foot (disorder) 795741123(SN OMED) Diagnosis active 09/26/2022 Enthesopathy of lower limb (disorder) 191920146(SN OMED) Diagnosis active 09/26/2022 Osteoarthritis of joint of left ankle and/or foot (disorder) 581780102(SN OMED) Diagnosis active 08/15/2022 Enthesopathy of lower limb (disorder) 891945043(SN OMED) Diagnosis active 08/15/2022 Osteoarthritis of joint of left ankle and/or foot (disorder) 697486558(SN OMED) Diagnosis active 07/30/2022 Osteoarthritis of joint of left ankle and/or foot (disorder) 894267920(SN OMED) Diagnosis active 07/30/2022 Enthesopathy of lower limb (disorder) 941474336(SN OMED) Diagnosis active 07/30/2022 Osteoarthritis of joint of left ankle and/or foot (disorder) 225226809(SN OMED) Diagnosis active 07/02/2022 Metatarsalgia (finding) 63721665(SNO MED) Diagnosis active 07/02/2022 Depressive disorder (disorder) 24485827(SNO MED) Problem active Arthritis (disorder) 7549857(SNOM ED) Problem active Results No data Encounters Service provided at [place], [place], [address] [place] [address], [place], [place] [id number]. Office phone number is [phone]. Encounter Diagnosis Location Date / Time Type Post-traumatic osteoarthriti s, left ankle and foot (M19.172)Other enthesopathy of right foot and ankle (M77.51)Other benign neoplasm of skin, unspecified (D23.9) [place], [place] 10/19/2024 21:30:00 [facility] [address] Reason For Referral I saw Baljeet Herman in the office on October 19, 2024.Below is a summary of our visit:Post-traumatic osteoarthritis, left ankle and foot: .Plan: Prescription Medication Management, Counseling - Foot andAnkle Osteoarthritis, and OTC Medication Management.Other enthesopathy of right foot and ankle: .Plan: Counseling - Metatarsalgia and Prescription Medication Management.Other benign neoplasm of skin,unspecified: distributed on the left lateral plantar midfoot.Plan: Counseling - Benign Neoplasm andBenign Destruction.My impression and plan was the followin.Post-traumatic osteoarthritis, left ankle and footPrescription Medication Management: Prescription Medication Plan - Continue Regimen - Continue with current prescription medication regimen..Counseling - Foot and Ankle OsteoarthritisOTC Medication Management2.Other enthesopathy of right foot and ankleCounseling - MetatarsalgiaPrescription Medication Management: Prescription Medication Plan - Continue Regimen - Continue with current prescription medication regimen..3.Other benign neoplasm of skin, unspecifiedCounseling - Benign NeoplasmBenign Destruction: left lateral plantar midfoot; Medical Necessity Justification - painful; Method - surgical curettement. Procedures Procedure Date Destructive procedure (procedure) 2024 12:00 am UTC Nerve block (procedure) 06/03/2023 12:00 am UTC Injection into bursa (procedure) 023 12:00 am UTC Arthrocentesis (procedure) 07/30/2022 12 :00 am UTC Intra-articular injection (procedure) 12:00 am UTC Injection of steroid into joint (procedu re) 07/30/2022 12:00 am UTC Aspiration (procedure) 07/30/2022 12:00 am UTC History of colectomy (situation) Documentation of past medical history (p rocedure) History of colectomy (situation) Documentation of past medical history (p rocedure) History of colectomy (situation) Documentation of past medical history (p rocedure) History of colectomy (situation) Documentation of past medical history (p rocedure) Documentation of past medical history (p rocedure) History of colectomy (situation) Documentation of past medical history (p rocedure) History of colectomy (situation) History of colectomy (situation) Documentation of past medical history (p rocedure) History of colectomy (situation) Documentation of past medical history (p rocedure) Documentation of past medical history (p rocedure) History of colectomy (situation) Documentation of past medical history (p rocedure) History of colectomy (situation) History of colectomy (situation) Documentation of past medical history (p rocedure) History of colectomy (situation) Documentation of past medical history (p rocedure) History of colectomy (situation) Documentation of past medical history (p rocedure) History of colectomy (situation) Documentation of past medical history (p rocedure) History of colectomy (situation) Documentation of past medical history (p rocedure) Documentation of past medical history (p rocedure) History of colectomy (situation) Documentation of past medical history (p rocedure) History of colectomy (situation) History of operative procedu re on foot (situation) Calcaneus compound fracture History of colectomy (situation) Ascendi ng colon removed Documentation of past medica l history (procedure) L ankle foot r knee neck appendix unbiblical hernia l&r shoulder nose tonsils l bicep lymph node removal. Y 90 cancer therapy Review Of Systems No Data Assessment 1.Post-traumatic osteoarthritis, left ankle and footPrescription Medication Management: Prescription Medication Plan - Continue Regimen - Continue with current prescription medication regimen..Counseling - Foot and Ankle OsteoarthritisOTC Medication Management2.Other enthesopathy of right foot and a nkleCounseling - MetatarsalgiaPrescription Medication Management: Prescription Medication Plan - Continue Regimen - Continue with current prescription medication regimen..3.Other benign neoplasm of skin, unspecifiedCounseling - Benign NeoplasmBenign Destruction: left lateral plantar midfoot; Medical Necessity Justification - painful; Method - surgical curettement. Plan of Care Future visit PRN - Follow up PRN Code Detail Instructions [id number] Lyrica 75 mg capsule i tab PO BI D [id number] Lyrica 75 mg capsule i tab PO BI D 754746 Lyrica 75 mg capsule i tab PO BI D 646306 Lyrica 75 mg capsule i tab PO BI D 837134 Lyrica 75 mg capsule i tab PO BI D 382631 Lyrica 75 mg capsule i tab PO BI D 315848 Medrol (Lizandro) 4 mg tablets in a d ose pack as directed [id number] Medrol (Lizandro) 4 mg tablets in a d ose pack as directed Instructions * Musculoskeletal care: I advised the patient that most patients with osteoarthritis can achieve somemeasure of pain relief from nonsurgical options like medications, lifestyle modification, exercise and physical therapy, and use of supportive devices or change in footwear. The importance of maintaining an ideal body weight or losing weight to reduce stress on the affected joints is a cornerstone of nonoperative management.Expectations: I counseled the patient about the natural history of osteoarthritis which typically has exacerbations and remissions. Many people report that changes in the weather also affect the degree of pain from arthritis. The affected joints do not heal on their own when there is arthritis. With time, the symptoms of arthritis may get worse. For some, conservative management may not be not satisfactory. These individuals should consider surgical options.Patient will continue ambulate only in his [place] braceAfter counseling the patient, we decided on the following plan LEFT: ??? Conservative Management * The initial treatment for metatarsalgia fractures is consrvative. Exercise to reduce body weight and appropriate shoewear and inserts are recommended. NSAIDS and steroid injections may also be helpful. Depending on the cause of the metatarsalgia, surgery may be recommended especially if there is toe deformity (i.e., bunion or hammertoe) that has not responded to conservatvie management.Metatarsalgia is a symptom characterized by pain in the ball of the forefoot. The pain usually increases when barefoot or when walking on hard surfaces. There are many underlying causes including toe deformities, stress fractures, being overweight, and poor fitting shoes. High impact sports may put individuals at increased risk of developing this pain. Outcomes after treatment for metatarsalgia are generally good, however, a subset of patients will have chronic symptoms.Medication CounselingNSAIDS : I discussed with the patient that NSAIDs should be taken with food. Prolonged use of NSAIDs can result inthe development of stomach ulcers or bleeding. Patient advised to stop taking NSAIDs if abdominal pain occurs. The patient verbalized understanding of the proper use and possible adverse effects of NSAIDs. All of the patient's questions and concerns were addressed.Potential for Future Surgery : I explained that though I am not recommending a surgical intervention at this time, this may be recommended or necessary in the future to alleviate or treat this condition, especially if conservative measures fail or the condition continues to progress or worsen.After counseling the patient, we decidedon the following plan RIGHT: ??? Conservative Management * I counseled the patient regarding the following:Instructions: Monthly self- skin checks to monitor for any changes in lesions are recommended.Expectations: Benign Neoplasms are normal growths of the skin. 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 We did excise them today and I did recommend the patient use at home debridement techniques that I demonstrated in office today and recommended also using a moisturizing cream daily to slow recurrence Social History Code Activity Start Date End Date [id number] (SNOMED) Former smoker Sex male Sexual orientation Unspecified Gender identity Unspecified Vital Signs Vital Sign Measurement Date Recorded Body Height 72.0 in ThuOct 19 21:38 :53 [facility] 2024 Body Weight 184.0 lbs ThuOct 19 21:38 :53 [facility] 2024 Body Mass Index 25 kg/m2 ThuOct 19 21:38 :53 [facility] 2024
--- NOTE | 2024-10-20 12:07 | ED_ITS ---
HPI - URI/Sore Throat General Chief Complaint: Upper Respiratory Infection Stated Complaint: cough, w/ pain on both sides Time Seen by Provider: 10/20/24 12:07 Source: patient and family Mode of arrival: ambulatory Limitations: no limitations History of Present Illness HPI Narrative: 59 years old white male came from home by private car complaining of productive cough of clear sputum, shortness of breath and chest tightness over the last 3 days. Patient had similar symptoms, came to our emergency room on September 22 and was discharged with a diagnosis of upper respiratory infection and vasovagal syncope on Levaquin, albuterol and prednisone. . Patient report he symptom in the last 3 days similar to that 1 early in the month. Patient denies any fever, chills, nausea, vomiting. Patient reports his symptom worse with exertion, better at rest, denies sick contact. History of hypertension and carcinoid tumor. Patient vapes, does not drink or use drugs. MD elicited complaint: cough Onset (ago): day(s) Consistency: progressively worsening Exacerbating factors: exertion Relieving factors: nothing Associated symptoms: cough, chest pain and shortness of breath Related Data Home Medications ?Medication ?Instructions ?Recorded ?Confirmed ?Last Taken ?Type levothyroxine 75 mcg tablet 75 mcg PO DAILY 10/01/19 02/10/24 Unknown History (Synthroid) venlafaxine 150 mg 150 mg PO DAILY 11/15/21 02/10/24 08/14/23 09:10 History capsule,extended release 24 hr (Effexor XR) lorazepam 1 mg capsule,extended 1 mg PO DAILY PRN Anxiety 02/27/22 02/10/24 Unknown History release 24 hr (Loreev XR) prazosin 1 mg capsule 2 mg PO HS 02/27/22 02/10/24 Unknown History B Complex-Vitamin B12 240 mcg PO PRN PRN as needed. 07/30/23 02/10/24 Unknown History lamotrigine 100 mg tablet 200 mg PO DAILY 07/30/23 02/10/24 Unknown History (Lamictal) pregabalin 75 mg capsule (Lyrica) 75 mg PO BID 07/30/23 02/10/24 Unknown History rosuvastatin 20 mg tablet (Crestor) 20 mg PO DAILY 07/30/23 02/10/24 Unknown History amlodipine 10 mg tablet 10 mg PO DAILY 08/14/23 02/10/24 08/14/23 09:00 History cholecalciferol (vitamin D3) 125 125 mcg PO DAILY 08/14/23 02/10/24 Unknown History mcg (5,000 unit) capsule diazepam 2 mg tablet 1 mg PO HS PRN Anxiety 08/14/23 02/10/24 Unknown History epinephrine 0.3 mg/0.3 mL 0.3 mg IM ONCE PRN Anaphylaxis 08/14/23 02/10/24 Unknown History injection syringe naloxone 4 mg/actuation nasal spray 4 mg intranasal Q2-3M PRN overdose 08/14/23 02/10/24 Unknown History octreotide acetate 100 mcg/mL (1 100 mcg subcut MONTHLY 08/14/23 02/10/24 Unknown History mL) injection syringe olanzapine 5 mg tablet (Zyprexa) 5 mg PO HS 08/14/23 02/10/24 Unknown History ondansetron HCl 4 mg tablet 4 mg PO Q6H PRN Nausea 08/14/23 02/10/24 Unknown History orphenadrine citrate 100 mg 100 mg PO Q12H PRN Muscle Spasm 08/14/23 02/10/24 Unknown History tablet,extended release oxycodone 5 mg tablet 10 mg PO Q4H PRN Pain 08/14/23 02/10/24 08/14/23 09:25 History polyethylene glycol 3350 17 gram 17 g PO BID 08/14/23 02/10/24 08/14/23 09:00 History oral powder packet (Miralax) rimegepant 75 mg disintegrating 75 mg PO DAILY PRN Migraine 08/14/23 02/10/24 Unknown History tablet Headache cariprazine 3 mg capsule (Vraylar) 3 mg PO Q24H 08/12/24 08/12/24 Unknown History cyanocobalamin (vitamin B-12) 1,000 mcg PO DAILY 08/12/24 08/12/24 Unknown History 1,000 mcg tablet meloxicam 7.5 mg tablet 7.5 mg PO DAILY 08/12/24 08/12/24 Unknown History modafinil 100 mg tablet 100 mg PO DAILY 08/12/24 08/12/24 Unknown History Allergies Allergy/AdvReac Type Severity Reaction Status Date / Time sulfamethoxazole (From Allergy Hives Verified 10/20/24 12:04 ) trimethoprim (From Septra) Allergy Hives Verified 10/20/24 12:04 acetaminophen (From Tylenol) AdvReac Other Verified 10/20/24 12:04 ibuprofen AdvReac Unknown Verified 10/20/24 12:04 Bumble Bee Allergy Severe Anaphylactic Uncoded 10/20/24 12:04 Shock Review of Systems 2 Review of Systems: All systems reviewed & are unremarkable except as noted in HPI and below PMFSH Past Medical History Medical History Liver metastases Liver lesion Hypertension Colon cancer Status post partial colectomy. Bipolar disorder Hypothyroidism Chronic prescription opiate use Chronic pain syndrome Hyperlipidemia COVID-19 (04/24/21) Cervical radiculopathy Depression Surgical History Surgical History History of nasal surgery History of tonsillectomy History of partial colectomy History of inguinal hernia repair Status post left foot surgery History of cervical spinal surgery History of repair of left rotator cuff History of arthroscopy of right shoulder History of appendectomy Family History Family History Other Cardiac arrest Cirrhosis of liver Social History Social History Social History: The patient lives in [place] with his and family. They have 2 children who are in her 20s and they have Severo foster son who is [id number]. History of alcohol and drug use, clean for 12 years. 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 he has 20% disability from the [employer]. he served in the [employer] during [employer]. He designates his , Amy Herman, as his surrogate decision maker. Code status: Full code. Smoking packs per day: 0.5 Smoking cigarettes per day: 10.0 Years smoked: 13 Smoking pack-years: 6.50 Smoking status: Former smoker Tobacco type: cigarettes Alcohol intake: never Substance use: never Last use: 05/20/21 Do You Feel Safe in your Home?: Yes Lack of Transportation: No Lack of Food: Never True Current Housing: I Have Housing Concerned About Future Housing: No Difficulty Paying Gas/Electric Bills: No Difficulty Paying for Meds: No Currently Unemployed: No Education: Decline to Answer Difficulty w/ Childcare or Family Care: No Spiritual care concerns: No Exam 2 Narrative: General appearance: Well-developed, well-nourished Skin: Normal color Head: Normocephalic, nontraumatic Eyes: Clear conjunctiva ENT: Oropharynx normal, ears normal, nose normal Neck: Supple, nontender Chest and respiratory: Airway patent, no respiratory distress, no accessory muscle use , mild diminution of air entry bilaterally, few scattered rhonchi. Heart: Regular rate/rhythm Abdomen: Soft, nontender, no organomegaly, quiet bowel sounds Vascular: Normal peripheral pulses, normal capillary refill. 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, no gross motor deficit Course Vital Signs Vital signs: Vital Signs Temperature 36.4 C 10/20/24 11:58 Pulse Rate 75 10/20/24 11:58 Respiratory Rate 18 10/20/24 11:58 Blood Pressure 165/88 H 10/20/24 11:58 Pulse Oximetry 100 10/20/24 11:58 Oxygen Delivery Room Air 10/20/24 11:58 Temperature 36.4 C 10/20/24 11:58 Pulse Rate 59 L 10/20/24 13:29 Respiratory Rate 20 10/20/24 13:29 Blood Pressure 165/88 H 10/20/24 11:58 Pulse Oximetry 100 10/20/24 13:29 Oxygen Delivery Room Air 10/20/24 11:58 Oxygen Flow Rate 0 10/20/24 13:29 MDM - URI/Sore Throat Lab Data 10/20/24 12:41 10/20/24 12:41 Labs: Lab Results 10/20/24 10/20/24 Range/Units 12:17 12:41 WBC 11.9 H (4.8-10.8) K/mm3 RBC 4.46 L (4.70-6.10) M/mm3 Hgb 13.7 L (14.0-18.0) g/dL Hct 40.6 (40.0-54.0) % MCV 91.0 (78.0-102.0) fL MCH 30.7 (27.0-31.0) pg MCHC 33.7 (32-36) g/dL RDW 13.3 (11.6-14.4) % Plt Count 257 (150-420) K/mm3 MPV 11.9 H (8.7-11.0) fl Immature Gran % (Auto) 0.5 H (0.0-0.0) % Neut % (Auto) 74.4 H (50.0-70.0) % Lymph % (Auto) 14.5 L (18.0-42.0) % [place] % (Auto) 10.4 (2.0-11.0) % Eos % (Auto) 0.1 L (1.0-6.0) % Baso % (Auto) 0.1 (0.0-1.0) % Lymph # (Auto) 1.73 (1.10-4.50) K/mm3 [place] # (Auto) 1.24 H (0.10-0.90) K/mm3 Eos # (Auto) 0.01 L (0.02-0.50) K/mm3 Baso # (Auto) 0.01 (0.00-0.10) K/mm3 Abs Immat Gran (auto) 0.06 H (0.00-0.00) K/mm3 Absolute Neuts (auto) 8.87 H (1.70-7.20) K/mm3 Absolute Nucleated RBC 0.00 (0.00-0.00) K/mm3 Band Neutrophils % Not Reportable Nucleated RBC % 0.0 (0-0.0) % Platelet Estimate Not Reportable Schistocytes Not Reportable PT 10.4 (9.64-11.0) Seconds INR 0.9 APTT 23.8 L (23.9-30.70) Sec Sodium 140 (137-145) mmol/L Potassium 3.4 (3.4-5.0) mmol/L Chloride 109 H (98-107) mmol/L Carbon Dioxide 26 (22-30) mmol/L Anion Gap 5 (4-12) mmol/L BUN 22 H (9-20) mg/dL Creatinine 0.96 (0.7-1.3) mg/dL Estim Creat Clear Calc 85 ml/min Estimated GFR > 60 (59 - ) Glucose 110 (65-110) mg/dL Calculated Osmolality 294 (285-295) mOsm/kg Calcium 9.3 (8.4-10.2) mg/dL Total Bilirubin 0.7 (0.2-1.3) mg/dL AST 38 (17-59) U/L ALT 32 (6-50) U/L Alkaline Phosphatase 74 (38-126) U/L Troponin I < 0.012 (0.000-0.034) ng/mL NT-Pro-B Natriuret Pep 83 (19.9-100) pg/mL Total Protein 7.2 (6.3-8.2) g/dL Albumin 4.5 (3.5-5.1) g/dL Influenza A (RT-PCR) Negative (Negative) Influenza B (RT-PCR) Negative (Negative) RSV (RT-PCR) Negative (Negative) SARS-CoV-2 RNA (RT-PCR) Negative (Negative) ABG Data ABG results: 10/20/24 12:47 Puncture Site Right radial ABG pH 7.47 H ABG pCO2 31.8 L ABG pO2 92.0 H ABG HCO3 22.8 L ABG O2 Saturation 96.9 ABG Base Excess 0.1 Oxyhemoglobin 96.3 O2 Delivery Device Room air O2 Liters/Min 0.0 Imaging Data My impression: Impressions Chest X-Ray 10/20/24 12:30 Impression: 1: No acute cardiopulmonary disease. Chest CT 10/20/24 14:55 IMPRESSION: 1. No change to slight decrease in size of a few 3 mm or smaller pulmonary nodules in the right lung. If the patient is low risk for lung cancer, no follow-up is needed. If the patient is high risk (i.e., history of smoking or asbestos or significant radiation exposure), optional follow-up chest CT could be considered at 12 months. 2. Persistent mild elevation left hemidiaphragm with associated mild left basilar atelectasis. Radiologist's impression: Impressions Chest X-Ray 10/20/24 12:30 Impression: 1: No acute cardiopulmonary disease. Discharge Plan Discharge Clinical Impression: Bronchitis Patient Disposition: Home Condition: Stable Instructions: Antibiotic Form, Acute Bronchitis (ED) Additional Instructions: Return if symptoms are worsening , call your family physician for appointment, take Tylenol as as needed for aches and pain, continue home medications. Patient Language: Ecuadorean Prescriptions: New budesonide-formoterol [Symbicort] 80-4.5 mcg/actuation HFA aerosol inhaler 2 puff inhalation Q12H Qty: 10.2 0RF albuterol sulfate 90 mcg/actuation HFA aerosol inhaler 2 puff inhalation QID PRN (Reason: shortness of breath or wheezing) Qty: 8.5 0RF azithromycin [Zithromax Z-Lizandro] 250 mg tablet 250 mg PO DAILY PRN (Reason: bronchitis) 5 Days Qty: 6 0RF No Action levothyroxine [Synthroid] 75 mcg tablet 75 mcg PO DAILY venlafaxine [Effexor XR] 150 mg capsule,extended release 24hr 150 mg PO DAILY ProAir RespiClick 90 mcg/actuation aerosol powdr breath activated 2 inh inhalation QID PRN (Reason: shortness of breath or wheezing) Qty: 1 0RF benzonatate 200 mg capsule 200 mg PO TID Qty: 30 0RF B Complex-Vitamin B12 240 mcg PO PRN PRN (Reason: as needed.) Patient Comments: . 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,000% lamotrigine [Lamictal] 100 mg tablet 200 mg PO DAILY rosuvastatin [Crestor] 20 mg tablet 20 mg PO DAILY pregabalin [Lyrica] 75 mg capsule 75 mg PO BID naloxone 4 mg/actuation [place],Non-Aerosol 4 mg INTRANASAL Q2-3M PRN (Reason: overdose) Rx Instructions: spray 1 dose into ONE nostril; alternate nostrils w each dose until help arrives oxycodone 5 mg Tablet 10 mg PO Q4H PRN (Reason: Pain) olanzapine [Zyprexa] 5 mg Tablet 5 mg PO HS orphenadrine citrate 100 mg Tablet Extended Release 100 mg PO Q12H PRN (Reason: Muscle Spasm) polyethylene glycol 3350 [Miralax] 17 gram Powder In Packet 17 g PO BID cholecalciferol (vitamin D3) 125 mcg (5,000 unit) Capsule 125 mcg PO DAILY amlodipine 10 mg Tablet 10 mg PO DAILY Patient Comments: ............. epinephrine 0.3 mg/0.3 mL Syringe 0.3 mg IM ONCE PRN (Reason: Anaphylaxis) Rx Instructions: as a single dose; may repeat once octreotide acetate 100 mcg/mL (1 mL) Syringe 100 mcg SUBCUT MONTHLY Rx Instructions: every 30 days ondansetron HCl 4 mg Tablet 4 mg PO Q6H PRN (Reason: Nausea) rimegepant 75 mg Tablet,Disintegrating 75 mg PO DAILY PRN (Reason: Migraine Headache) diazepam 2 mg Tablet 1 mg PO HS PRN (Reason: Anxiety) albuterol sulfate [Ventolin HFA] 90 mcg/actuation HFA aerosol inhaler 2 puff inhalation QID PRN (Reason: shortness of breath or wheezing) Qty: 8.5 0RF Patient Comments: . Loreev XR 1 mg capsule,extended release 24hr 1 mg PO DAILY PRN (Reason: Anxiety) prazosin 1 mg capsule 2 mg PO HS Vraylar 3 mg capsule 3 mg PO Q24H cyanocobalamin (vitamin B-12) 1,000 mcg tablet 1,000 mcg PO DAILY meloxicam 7.5 mg tablet 7.5 mg PO DAILY modafinil 100 mg tablet 100 mg PO DAILY Follow-up/Referrals: Betsy,EFRAIN Smith [Primary Care Provider] -
--- NOTE | 2024-10-20 12:15 | ECG_ITS ---
Test Date: 2024-10-20 12:03:22 Measurements Intervals [place] Rate: 67 P: 84 [place]: 173 QRS: 79 QRSD: 97 T: 48 QT: 384 QTc: 407 Interpretive Statements SINUS RHYTHM WITH OCCASIONAL VENTRICULAR PREMATURE COMPLEXES INCOMPLETE RIGHT BUNDLE BRANCH BLOCK MINIMAL Q WAVES- ANTEROLAT/INF LEADS BASELINE ARTIFACT- I, II, III, AVR, AVL, AVF, V1-V6 BORDERLINE ECG Compared to ECG 09/22/2024 09:13:50 Ventricular premature complex(es) now present Electronically Signed On 10-21-2024 06:23:35 CDT by David Stokes D.O.
--- OUTSIDE RECORDS SUMMARY | 2024-10-20 12:46 | XMS_ITS ---
Author Organization [facility] Address [address] [place] [address] Care Team Providers Care L Tacker Name Role Phone Kevin Meyer Primary Care Provider [phone] Kevin Meyer Unavailable [phone] Benja Esteban MD Unavailable [phone] Active Problems Problem Noted Date Diagnosed Date Knee pain 02/13/2021 Malignant neoplasm of colon 02/13/2021 Essential hypertension 01/16/2021 Cervical radiculopathy 01/15/2021 Personal history of other ma lignant neoplasm of large intestine 12/17/2020 Overview (12/17/2020): Added automatically from request for surgery [id number] 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/13/2020 Overview (12/13/2020): Added automatically from request for surgery [id number] Malignant carcinoid tumor of the ileum Stimulant use disorder 05/31/2020 Severe alcohol use disorder 05/31/2020 PTSD (post-traumatic stress disorder) 05/31/2020 Chronic bilateral low back pain without sciatica 04/07/2020 Assessment & Plan (05/04/2020 12:54 PM [facility]): - flexeril 10mg TID PRN - [place] 10mg q4 PRN - lidocaine patch daily - avoid IV ketorelac and NSAIDs with starting lithium - heating packs Assessment & Plan (05/03/2020 9:56 AM [facility]): - flexeril 10mg TID PRN - [place] 10mg q4 PRN - lidocaine patch daily - avoid IV ketorelac and NSAIDs with starting lithium - heating packs Assessment & Plan (05/02/2020 11:56 AM [facility]): - flexeril 10mg TID PRN - [place] 10mg q4 PRN - lidocaine patch daily - avoid IV ketorelac and NSAIDs with starting lithium - heating packs Assessment & Plan (05/01/2020 10:58 AM [facility]): - flexeril 10mg TID PRN - [place] 10mg q4 PRN - lidocaine patch daily - avoid IV ketorelac and NSAIDs with starting lithium - heating pads Assessment & Plan (04/30/2020 12:17 PM [facility]): - flexeril 10mg TID PRN - [place] 10mg q4 PRN - lidocaine patch daily - avoid IV ketorelac and NSAIDs with starting lithium - heating pads Assessment & Plan (04/28/2020 8:01 AM [facility]): - flexeril 10mg TID PRN - [place] 10mg q4 PRN - lidocaine patch daily - avoid IV ketorelac and NSAIDs with starting lithium - heating pads Assessment & Plan (04/27/2020 8:47 AM [facility]): - flexeril 10mg TID PRN - [place] 10mg q4 PRN - lidocaine patch daily - avoid IV ketorelac and NSAIDs given ADILENE - heating pads Assessment & Plan (04/26/2020 10:11 AM [facility]): - flexeril 10mg TID PRN - [place] 10mg q4 PRN - lidocaine patch daily - avoid IV ketorelac and NSAIDs given ADILENE - heating pads Assessment & Plan (04/25/2020 9:45 AM [facility]): - flexeril 10mg TID PRN - [place] 10mg q4 PRN - lidocaine patch daily - avoid IV ketorelac and NSAIDs given ADILENE - heating pads Assessment & Plan (04/24/2020 9:49 AM [facility]): - flexeril 10mg TID PRN - [place] 10mg q4 PRN - lidocaine patch daily - avoid IV ketorelac and NSAIDs given [place]ILENE - heating pads Assessment & Plan (04/23/2020 10:21 AM [facility]): - flexeril 10mg TID PRN - [place] 10mg q4 PRN - lidocaine patch daily - avoid IV ketorelac and NSAIDs given [place] - heating pads Assessment & Plan (04/21/2020 8:38 AM [facility]): - flexeril 10mg TID PRN - [place] 10mg q4 PRN - lidocaine patch daily - avoid IV ketorelac and NSAIDs given [place]ILENE - heating pads Assessment & Plan (04/20/2020 12:05 PM [facility]): - flexeril 10mg TID PRN - [place] 10mg q4 PRN - lidocaine patch daily - avoid IV ketorelac and NSAIDs given ADILENE - heating pads Assessment & Plan (04/19/2020 9:46 AM [facility]): - flexeril 10mg TID PRN - [place] 10mg q4 PRN - lidocaine patch daily - avoid IV ketorelac and NSAIDs given [place]ILENE - heating pads Assessment & Plan (04/18/2020 10:09 AM [facility]): - flexeril 10mg TID PRN - [place] 10mg q4 PRN - lidocaine patch daily - avoid IV ketorelac and NSAIDs given ADILENE - heating pads Assessment & Plan (04/17/2020 9:31 AM [facility]): - flexeril 10mg TID PRN - [place] 10mg q4 PRN - lidocaine patch daily - avoid IV ketorelac and NSAIDs given ADILENE - heating pads Assessment & Plan (04/16/2020 11:51 AM [facility]): - flexeril 10mg TID PRN - [place] 10mg q4 PRN - lidocaine patch daily - avoid IV ketorelac and NSAIDs given ADILENE - heating pads Assessment & Plan (04/14/2020 9:57 AM [facility]): - flexeril 10mg TID PRN - [place] 10mg q4 PRN - lidocaine patch daily - avoid IV ketorelac and NSAIDs given ADILENE - heating pads Assessment & Plan (04/10/2020 10:04 PM [facility]): - flexeril 10mg TID PRN - [place] 10mg q4 PRN - lidocaine patch daily - avoid IV ketorelac and NSAIDs given ADILENE - heating pads Assessment & Plan (04/08/2020 3:23 PM [facility]): Patient endorsing exacerbation of chronic back pain [...] -PT Assessment & Plan (04/07/2020 6:23 AM [facility]): Patient endorsing exacerbation of chronic back pain and left ankle pain (had previous traumatic injury, required surgery). No other red flag symptoms/signs. Reports he has received injections in the past -Continue PRN norco, flexeril -Lidocaine patch to back -PT Depressive disorder 04/03/2020 Assessment & Plan (05/04/2020 12:54 PM [facility]): 54yo M with reported history of bipolar [...] more bright. Plan to discharge patient 05/04. [place] augmentation started with moderate improvements seen in depressive symptoms with ECT, titrated to 300 mg BID with level 0.6. - Continue OLANZapine, 20 mg, oral, Nightly, for depression - Continue Venlafaxine XR 150 mg PO daily, for depression - Continue lithium to 300 mg BID - [place] level 0.6 on 05/03 - This is [...] 05/04 Assessment & Plan (05/03/2020 9:56 AM [facility]): 54yo M with reported history of bipolar [...] more bright. Plan to discharge patient 05/04. [place] augmentation started with moderate improvements seen in depressive symptoms with ECT, titrated to 300 mg BID with level 0.6. - Continue OLANZapine, 20 mg, oral, Nightly, for depression - Continue Venlafaxine XR 150 mg PO daily, for depression - Continue lithium to 300 mg BID - [place] level 0.6 on 05/03 - This is [...] permission) Assessment & Plan (05/02/2020 11:56 AM [facility]): 54yo M with reported history of bipolar [...] permission) Assessment & Plan (05/01/2020 10:58 AM [facility]): 54yo M with reported history of bipolar [...] family Assessment & Plan (04/30/2020 12:17 PM [facility]): 54yo M with reported history of bipolar [...] family Assessment & Plan (04/28/2020 8:02 AM [facility]): 54yo M with reported history of bipolar [...] depression Assessment & Plan (04/27/2020 8:47 AM [facility]): 54yo M with reported history of bipolar [...] depression Assessment & Plan (04/26/2020 10:11 AM [facility]): 54yo M with reported history of bipolar [...] depression Assessment & Plan (04/25/2020 9:47 AM [facility]): 54yo M with reported history of bipolar [...] depression Assessment & Plan (04/24/2020 9:48 AM [facility]): 54yo M with reported history of bipolar [...] depression Assessment & Plan (04/23/2020 10:21 AM [facility]): 54yo M with reported history of bipolar [...] depression Assessment & Plan (04/21/2020 8:36 AM [facility]): 54yo M with reported history of bipolar [...] depression Assessment & Plan (04/20/2020 12:05 PM [facility]): 54yo M with reported history of bipolar [...] depression Assessment & Plan (04/19/2020 9:48 AM [facility]): 54yo M with reported history of bipolar [...] depression Assessment & Plan (04/18/2020 10:08 AM [facility]): 54yo M with reported history of bipolar [...] depression Assessment & Plan (04/17/2020 9:32 AM [facility]): 54yo M with reported history of bipolar [...] depression Assessment & Plan (04/16/2020 11:49 AM [facility]): 54yo M with reported history of bipolar [...] depression Assessment & Plan (04/14/2020 9:56 AM [facility]): 54yo M with reported history of bipolar [...] depression Assessment & Plan (04/13/2020 9:46 AM [facility]): 54yo M with reported history of bipolar [...] procedure Assessment & Plan (04/10/2020 3:25 PM [facility]): Presented to ED 04/02 with suicidal ideation, depression. Initially admitted to psychiatry for medication adjustment, received ECT x1 04/06 -Continue current meds: lexapro 5, effexor 112.5, olanzapine 20mg QHS - If COVID test is negative, transfer to Psychiatry floor. Assessment & Plan (04/08/2020 3:24 PM [facility]): Presented to ED 04/02 with suicidal ideation, depression. Initially admitted to psychiatry for medication adjustment, received ECT x1 04/06 -Psych consulted upon transfer to medicine but are following only peripherally over the weekend -Continue current meds: lexapro 5, effexor 112.5, olanzapine 20mg QHS -Psychiatry recommending discontinuing suicide precautions with 1:1 sitter Assessment & Plan (04/07/2020 6:14 AM [facility]): Presented to ED 04/02 with suicidal ideation, depression. Initially admitted to psychiatry for medication adjustment, received ECT x1 04/06 -Psych c/s upon transfer -Continue current meds: lexapro 5, effexor 112.5, olanzapine 20mg QHS -Suicide precautions, 1:1 sitter Assessment & Plan (04/12/2020 9:11 AM [facility]): 54yo M with reported history of bipolar [...] midnight Assessment & Plan (04/03/2020 2:04 PM [facility]): 54yo M with reported history of bipolar [...] disease) Assessment & Plan (05/04/2020 12:54 PM [facility]): Patient has a long history of GERD. - Protonix 40 mg daily Assessment & Plan (05/03/2020 9:56 AM [facility]): Patient has a long history of GERD. - Protonix 40 mg daily Assessment & Plan (05/02/2020 11:57 AM [facility]): Patient has a long history of GERD. - Protonix 40 mg daily Assessment & Plan (05/01/2020 10:58 AM [facility]): Patient has a long history of GERD. - Protonix 40 mg daily Assessment & Plan (04/30/2020 12:17 PM [facility]): Patient has a long history of GERD. - Protonix 40 mg daily Assessment & Plan (04/28/2020 8:00 AM [facility]): Patient has a long history of GERD. -Protonix 40 mg daily Assessment & Plan (04/27/2020 8:47 AM [facility]): Patient has a long history of GERD. -Protonix 40 mg daily Assessment & Plan (04/26/2020 10:11 AM [facility]): Patient has a long history of GERD. -Protonix 40 mg daily Assessment & Plan (04/25/2020 9:45 AM [facility]): Patient has a long history of GERD. -Protonix 40 mg daily Assessment & Plan (04/24/2020 9:48 AM [facility]): Patient has a long history of GERD. -Protonix 40 mg daily Assessment & Plan (04/23/2020 10:21 AM [facility]): Patient has a long history of GERD. -Protonix 40 mg daily Assessment & Plan (04/21/2020 8:37 AM [facility]): Patient has a long history of GERD. -Protonix 40 mg daily Assessment & Plan (04/20/2020 12:05 PM [facility]): Patient has a long history of GERD. -Protonix 40 mg daily Assessment & Plan (04/19/2020 9:46 AM [facility]): Patient has a long history of GERD. -Protonix 40 mg daily Assessment & Plan (04/18/2020 10:09 AM [facility]): Patient has a long history of GERD. -Protonix 40 mg daily Assessment & Plan (04/17/2020 9:31 AM [facility]): Patient has a long history of GERD. -Protonix 40 mg daily Assessment & Plan (04/16/2020 11:51 AM [facility]): Patient has a long history of GERD. -Protonix 40 mg daily Assessment & Plan (04/14/2020 9:56 AM [facility]): Patient has a long history of GERD. -Protonix 40 mg daily Assessment & Plan (04/10/2020 3:25 PM [facility]): Continue pantoprazole Assessment & Plan (04/08/2020 3:17 PM [facility]): Continue pantoprazole Assessment & Plan (04/07/2020 6:15 AM [facility]): Continue pantoprazole Assessment & Plan (04/03/2020 5:54 PM [facility]): Patient has a long history of GERD. -Protonix 40 mg daily Hypothyroidism 04/03/2020 Assessment & Plan (05/04/2020 12:54 PM [facility]): Patient carries a diagnosis of hypothyroidism for several years. He is currently treated on levothyroxine 75 mcg daily. - Repeat TFT tests in 6 weeks - continue levothyroxine 75 mcg daily Assessment & Plan (05/03/2020 9:56 AM [facility]): Patient carries a diagnosis of hypothyroidism for several years. He is currently treated on levothyroxine 75 mcg daily. - Repeat TFT tests in 6 weeks - continue levothyroxine 75 mcg daily Assessment & Plan (05/02/2020 11:57 AM [facility]): Patient carries a diagnosis of hyperthyroidism for several years. He is currently treated on levothyroxine 75 mcg daily. - Repeat TFT tests in 6 weeks - continue levothyroxine 75 mcg daily Assessment & Plan (05/01/2020 10:58 AM [facility]): Patient carries a diagnosis of hyperthyroidism for several years. He is currently treated on levothyroxine 75 mcg daily. - Repeat TFT tests in 6 weeks - continue levothyroxine 75 mcg daily Assessment & Plan (04/30/2020 12:17 PM [facility]): Patient carries a diagnosis of hyperthyroidism for several years. He is currently treated on levothyroxine 75 mcg daily. - Repeat TFT tests in 6 weeks - continue levothyroxine 75 mcg daily Assessment & Plan (04/28/2020 8:00 AM [facility]): Patient carries a diagnosis of hyperthyroidism for several years. He is currently treated on levothyroxine 75 mcg daily. - Repeat TFT tests in 6 weeks - continue levothyroxine 75 mcg daily Assessment & Plan (04/27/2020 8:47 AM [facility]): Patient carries a diagnosis of hyperthyroidism for several years. He is currently treated on levothyroxine 75 mcg daily. - Repeat TFT tests in 6 weeks - continue levothyroxine 75 mcg daily Assessment & Plan (04/26/2020 10:11 AM [facility]): Patient carries a diagnosis of hyperthyroidism for several years. He is currently treated on levothyroxine 75 mcg daily. - Repeat TFT tests in 6 weeks - continue levothyroxine 75 mcg daily Assessment & Plan (04/25/2020 9:45 AM [facility]): Patient carries a diagnosis of hyperthyroidism for several years. He is currently treated on levothyroxine 75 mcg daily. - Repeat TFT tests in 6 weeks - continue levothyroxine 75 mcg daily Assessment & Plan (04/24/2020 9:48 AM [facility]): Patient carries a diagnosis of hyperthyroidism for several years. He is currently treated on levothyroxine 75 mcg daily. - Repeat TFT tests in 6 weeks - continue levothyroxine 75 mcg daily Assessment & Plan (04/23/2020 10:21 AM [facility]): Patient carries a diagnosis of hyperthyroidism for several years. He is currently treated on levothyroxine 75 mcg daily. - Repeat TFT tests in 6 weeks - continue levothyroxine 75 mcg daily Assessment & Plan (04/21/2020 8:37 AM [facility]): Patient carries a diagnosis of hyperthyroidism for several years. He is currently treated on levothyroxine 75 mcg daily. - Repeat TFT tests in 6 weeks - continue levothyroxine 75 mcg daily Assessment & Plan (04/20/2020 12:05 PM [facility]): Patient carries a diagnosis of hyperthyroidism for several years. He is currently treated on levothyroxine 75 mcg daily. - Repeat TFT tests in 6 weeks - continue levothyroxine 75 mcg daily Assessment & Plan (04/19/2020 9:46 AM [facility]): Patient carries a diagnosis of hyperthyroidism for several years. He is currently treated on levothyroxine 75 mcg daily. - Repeat TFT tests in 6 weeks - continue levothyroxine 75 mcg daily Assessment & Plan (04/18/2020 10:09 AM [facility]): Patient carries a diagnosis of hyperthyroidism for several years. He is currently treated on levothyroxine 75 mcg daily. - Repeat TFT tests in 6 weeks - continue levothyroxine 75 mcg daily Assessment & Plan (04/17/2020 9:31 AM [facility]): Patient carries a diagnosis of hyperthyroidism for several years. He is currently treated on levothyroxine 75 mcg daily. - Repeat TFT tests in 6 weeks - continue levothyroxine 75 mcg daily Assessment & Plan (04/16/2020 11:51 AM [facility]): Patient carries a diagnosis of hyperthyroidism for several years. He is currently treated on levothyroxine 75 mcg daily. - Repeat TFT tests in 6 weeks - continue levothyroxine 75 mcg daily Assessment & Plan (04/14/2020 9:57 AM [facility]): Patient carries a diagnosis of hyperthyroidism for several years. He is currently treated on levothyroxine 75 mcg daily. - Repeat TFT tests in 6 weeks - continue levothyroxine 75 mcg daily Assessment & Plan (04/10/2020 3:25 PM [facility]): 04/02: TSH 6.49, T4 WNL at 1.38 Continue synthroid 75mcg; repeat TFTs 6-8 weeks Assessment & Plan (04/08/2020 3:17 PM [facility]): 04/02: TSH 6.49, T4 WNL at 1.38 Continue synthroid 75mcg; repeat TFTs 6-8 weeks Assessment & Plan (04/07/2020 6:16 AM [facility]): 04/02: TSH 6.49, T4 WNL at 1.38 Continue synthroid 75mcg; repeat TFTs 6-8 weeks Assessment & Plan (04/10/2020 9:35 PM [facility]): Patient carries a diagnosis of hyperthyroidism for several years. He is currently treated on levothyroxine 75 mcg daily. - Repeat TFT tests in 6 weeks - continue levothyroxine 75 mcg daily Hyperlipemia 04/03/2020 Assessment & Plan (05/04/2020 12:55 PM [facility]): Has a stated history of hyperlipidemia has been stably treated with atorvastatin 40 mg daily for many years. Patient's LDL low on lipid panel. Notable elevated triglycerides but not fasting sample. - atorvastatin 40 mg daily - fenofibrate 145mg daily Assessment & Plan (05/03/2020 9:56 AM [facility]): Has a stated history of hyperlipidemia has been stably treated with atorvastatin 40 mg daily for many years. Patient's LDL low on lipid panel. Notable elevated triglycerides but not fasting sample. - atorvastatin 40 mg daily - fenofibrate 145mg daily Assessment & Plan (05/02/2020 11:57 AM [facility]): Has a stated history of hyperlipidemia has been stably treated with atorvastatin 40 mg daily for many years. Patient's LDL low on lipid panel. Notable elevated triglycerides but not fasting sample. - atorvastatin 40 mg daily - fenofibrate 145mg daily Assessment & Plan (05/01/2020 10:58 AM [facility]): Has a stated history of hyperlipidemia has been stably treated with atorvastatin 40 mg daily for many years. Patient's LDL low on lipid panel. Notable elevated triglycerides but not fasting sample. - atorvastatin 40 mg daily - tricor 145mg daily Assessment & Plan (04/30/2020 12:17 PM [facility]): Has a stated history of hyperlipidemia has been stably treated with atorvastatin 40 mg daily for many years. Patient's LDL low on lipid panel. Notable elevated triglycerides but not fasting sample. - atorvastatin 40 mg daily - tricor 145mg daily Assessment & Plan (04/28/2020 8:01 AM [facility]): Has a stated history of hyperlipidemia has been stably treated with atorvastatin 40 mg daily for many years. Patient's LDL low on lipid panel. Notable elevated triglycerides but not fasting sample. - atorvastatin 40 mg daily - tricor 145mg daily Assessment & Plan (04/27/2020 8:47 AM [facility]): Has a stated history of hyperlipidemia has been stably treated with atorvastatin 40 mg daily for many years. Patient's LDL low on lipid panel. Notable elevated triglycerides but not fasting sample. - atorvastatin 40 mg daily - tricor 145mg daily Assessment & Plan (04/26/2020 10:11 AM [facility]): Has a stated history of hyperlipidemia has been stably treated with atorvastatin 40 mg daily for many years. Patient's LDL low on lipid panel. Notable elevated triglycerides but not fasting sample. - atorvastatin 40 mg daily - tricor 145mg daily Assessment & Plan (04/25/2020 9:45 AM [facility]): Has a stated history of hyperlipidemia has [...] daily Assessment & Plan (04/24/2020 9:48 AM [facility]): Has a stated history of hyperlipidemia has [...] daily Assessment & Plan (04/23/2020 10:21 AM [facility]): Has a stated history of hyperlipidemia has [...] daily Assessment & Plan (04/21/2020 8:38 AM [facility]): Has a stated history of hyperlipidemia has [...] daily Assessment & Plan (04/20/2020 12:05 PM [facility]): Has a stated history of hyperlipidemia has [...] daily Assessment & Plan (04/19/2020 9:46 AM [facility]): Has a stated history of hyperlipidemia has [...] daily Assessment & Plan (04/18/2020 10:09 AM [facility]): Has a stated history of hyperlipidemia has [...] daily Assessment & Plan (04/17/2020 9:31 AM [facility]): Has a stated history of hyperlipidemia has [...] daily Assessment & Plan (04/16/2020 11:51 AM [facility]): Has a stated history of hyperlipidemia has [...] daily Assessment & Plan (04/14/2020 9:56 AM [facility]): Has a stated history of hyperlipidemia has [...] daily Assessment & Plan (04/13/2020 9:46 AM [facility]): Has a stated history of hyperlipidemia has [...] daily Assessment & Plan (04/10/2020 3:25 PM [facility]): Continue atorvastatin 40 Assessment & Plan (04/08/2020 3:17 PM [facility]): Continue atorvastatin 40 Assessment & Plan (04/07/2020 6:15 AM [facility]): Continue atorvastatin 40 Assessment & Plan (04/12/2020 9:03 AM [facility]): Has a stated history of hyperlipidemia has [...] (08/31/2018): Added automatically from request for surgery [id number] Assessment & Plan (09/06/2018 12:49 PM CDT): [...] 04/10/2020 Assessment & Plan (05/04/2020 12:55 PM [facility]): Cr 1.3 -> 1.22 resolving. Baseline <1. - encourage fluids - avoid nephrotoxic meds Assessment & Plan (05/03/2020 9:56 AM [facility]): Cr 1.3 -> 1.22 resolving. Baseline <1. - encourage fluids - avoid nephrotoxic meds Assessment & Plan (05/02/2020 11:57 AM [facility]): Cr 1.3 -> 1.22 resolving. Baseline <1. - encourage fluids - avoid nephrotoxic meds Assessment & Plan (05/01/2020 10:58 AM [facility]): Cr 1.3 -> 1.22 resolving. Baseline <1. - encourage fluids - avoid nephrotoxic meds Assessment & Plan (04/19/2020 9:46 AM [facility]): Cr 1.3 -> 1.22 resolving. Baseline <1. - encourage fluids - avoid nephrotoxic meds Assessment & Plan (04/18/2020 10:09 AM [facility]): Cr 1.3 -> 1.22 resolving. Baseline <1. - encourage fluids - avoid nephrotoxic meds Assessment & Plan (04/16/2020 11:51 AM [facility]): Cr 1.3 -> 1.22 resolving. Baseline <1. - encourage fluids - avoid nephrotoxic meds Assessment & Plan (04/14/2020 9:57 AM [facility]): Cr 1.3 -> 1.22 resolving. Baseline <1. - encourage fluids - avoid nephrotoxic meds Assessment & Plan (04/13/2020 9:47 AM [facility]): Cr 1.3 -> 1.22 resolving. Baseline <1. - encourage fluids - avoid nephrotoxic meds Assessment & Plan (04/12/2020 9:04 AM [facility]): Cr 1.3 -> 1.22 resolving. Baseline <1. - encourage fluids - avoid nephrotoxic meds Diarrhea 04/10/2020 04/20/2020 Assessment & Plan (05/04/2020 12:55 PM [facility]): Patient recently had constipation, was treated with BID miralax and senna- docusate. Was having diarrhea last week so scheduled bowel regimen discontinued. - discontinued daily senna-docusate - miralax PRN Assessment & Plan (05/03/2020 9:56 AM [facility]): Patient recently had constipation, was treated with BID miralax and senna- docusate. Was having diarrhea last week so scheduled bowel regimen discontinued. - discontinued daily senna-docusate - miralax PRN Assessment & Plan (05/01/2020 10:59 AM [facility]): Patient recently had constipation, was treated with BID miralax and senna- docusate. Was having diarrhea last week so scheduled bowel regimen discontinued. - discontinued daily senna-docusate - miralax PRN Assessment & Plan (04/19/2020 9:47 AM [facility]): Patient recently had constipation, was treated with BID miralax and senna- docusate. Was having diarrhea last week so scheduled bowel regimen discontinued. - discontinued daily senna-docusate - miralax PRN Assessment & Plan (04/16/2020 11:52 AM [facility]): Patient recently had constipation, was treated with BID miralax and senna- docusate. Was having diarrhea last week so scheduled bowel regimen discontinued. - discontinue daily senna-docusate - miralax PRN Assessment & Plan (04/14/2020 9:57 AM [facility]): Patient recently had constipation, was treated with BID miralax and senna- docusate. Endorsing nonbloody diarrhea for last 2 days. - discontinue daily senna-docusate - miralax PRN Assessment & Plan (04/10/2020 10:09 PM [facility]): Patient recently had constipation, was treated with BID miralax and senna- docusate. Endorsing nonbloody diarrhea for last 2 days. - discontinue daily senna-docusate - miralax PRN Ventral hernia without obstr uction or gangrene 08/31/2018 04/20/2020 Overview (08/31/2018): Added automatically from request for surgery [id number] Assessment & Plan (09/06/2018 12:51 PM CDT): The procedure along with the risks, benefits, and post operative period were discussed with the patient and his significant other who agree. Fracture of navicular bone of foot 05/16/2015 04/20/2020
--- OUTSIDE RECORDS SUMMARY | 2024-10-20 12:46 | XMS_ITS | Encounter Summary ---
Author Organization [facility] Address [address] [place] [address] Phone Care Team Providers Care Biological Technician Name Role Phone Kevin Meyer Primary Care Provider [phone] Amy Allen APRN, HEEL PACKER Unavailable + [phone] Dawit MARISCAL MD, Courtney Unavailable [phone] Brad Bone MD Unavailable [phone] Vanda Jimenez APRN, HEEL PACKER Unavailable Min Mario MD Unavailable Reason for Visit * Reason Comments Medication Refill Encounter Details Date Type Department Care Team (Late st Contact Info) Description 06/22/2024 Refill [facility] #2 [place] [address] Vanda Jimenez APRN, HEEL PACKER [address]2 [place] [address] Medication Refill Social History Tobacco Use Types [...] PM CDT Medication [facility] standing order for pediatric and adult patients. documented in this encounter Plan of Treatment Upcoming Encounters Date Type Department Care Team (Late st Contact Info) Description 02/02/2025 10:15 AM BOAT LOADER HELPER Office Visit [facility]2 [place] [address] Min Mario MD #[address] [address] documented as of this encounter Visit Diagnoses Not on filedocumented in this encounter Care Teams Biological Technician Relationship Specialty Start Date End Date Kevin Meyer PAC [address] [place] [address] PCP - General Physician Glass Etcher Helper 07/15/17 Amy Allen APRN, HEEL PACKER #2 [facility] [address] [place] [address] Nurse Practitioner Cardiology 01/27/23 09/29/24 Merlene Pastor III, MD #2 [place] [address] Consulting Physician Urology 10/28/21 Brad Bone MD #2 [place] [address] Consulting Physician Neurology 09/04/22 Vanda Jimenez APRN, HEEL PACKER #2 [place] [address] Nurse Practitioner Advanced Practice Nurse 07/31/22 Min Mario MD #[address] [address] Consulting Physician Urology 12/17/23 documented as of this encounter
--- OUTSIDE RECORDS SUMMARY | 2024-10-20 12:46 | XMS_ITS | Clinical Summary ---
Author Organization [facility] Address [facility] [place] [address] Care Team Providers Care Social Services Assistant Name Role Phone Kevin Meyer Primary Care Provider [phone] Allergies Active Allergy Reactions Criticality Noted Date Comments Acetaminophen Other (see comment) High 07/02/2022 Patient requires vicoprofen due to history of liver cancer Bee Venom Anaphylaxis High 06/22/2006 Ibuprofen Unknown 11/18/2023 Sulfamethoxazole-Trimet hoprim Hives,Rash Low 06/23/2022 Medications levothyroxine 75 MCG tabletIndications :hypothyroidism Take 1 tablet (75 mcg total) by mouth daily. Indications: hypothyroidism Active LORazepam ER (LOREEV XR) 1 MG Capsule ER 24 Hour SprinkleIndicatio ns:anxiety/insomn ia Take 1 tablet by mouth daily. Indications: anxiety/insomnia 05/05/19 23 Active EPINEPHrine 0.3 MG/0.3ML injectionIndicati ons:anaphylaxis INJECT 0.3 MILLILITER (0.3 MG) BY INTRAMUSCULAR ROUTE ONCE NEEDED FOR ANAPHYLAXIS Active ondansetron (ZOFRAN-ODT) 4 MG disintegrating tabletIndications :nausea Take 1 tablet (4 mg total) by mouth. Indications: nausea 09/02/19 23 Active octreotide (SANDOSTATIN) 100 MCG/ML SolutionIndicatio ns:antidiarrheal Inject 1 mL (100 mcg total) into the vein every 30 (thirty) days. Indications: antidiarrheal Active amLODIPine (NORVASC) 10 MG tabletIndications :hypertension Take 1 tablet (10 mg total) by mouth daily. Indications: hypertension 02/19/20 Active pregabalin (LYRICA) 75 MG capsuleIndication s:nerve pain Take 1 capsule (75 mg total) by mouth 2 (two) times daily. Indications: nerve pain 03/03/20 Active prazosin (MINIPRESS) 2 MG capsule Take 1 capsule (2 mg total) by mouth nightly at bedtime. 04/01/19 Active OLANZapine (ZYPREXA) 5 MG tablet Take 1 tablet (5 mg total) by mouth nightly at bedtime. Active calcium, elemental, 600 MG tabletIndications :S/P lumbar fusion Take 1 tablet (600 mg total) by mouth 2 (two) times daily. 60 tablet 4 08/14/19 24 Active vitamin D3, cholecalciferol, 125 mcg capsuleIndication s:S/P lumbar fusion Take 1 capsule (5,000 Units total) by mouth daily. 30 capsule 4 08/14/19 24 Active modafinil (PROVIGIL) 100 MG tablet Take 1 tablet (100 mg total) by mouth daily. 09/30/19 24 Active pantoprazole EC (PROTONIX) 40 MG tablet Take 1 tablet (40 mg total) by mouth daily. 12/28/19 24 Active naloxone (NARCAN) 4 MG/0.1ML nasal sprayIndications: Pain from implanted hardware, subsequent encounter 1 spray by Nasal route as needed for Opioid reversal. may repeat every 2 to 3 minutes in alternating nostrils until medical assistance becomes available 1 each 10/15/19 25 2025 Active oxyCODONE (OXY-IR) 5 MG capsuleIndication s:Chronic Pain Take 1 capsule (5 mg total) by mouth every 4 (four) hours as needed. Indications: Chronic Pain 50 capsule 10/15/19 25 Active vitamin B-12 (CYANOCOBALAMIN) (CYANOCOBALAMIN) 1000 mcg tablet Take 1 tablet (1,000 mcg total) by mouth every other day. 09/13/19 25 Active potassium chloride CR (KLOR-CON M) 20 MEQ tablet Take 1 tablet (20 mEq total) by mouth daily. 09/13/19 25 Active VRAYLAR 3 MG capsule Take 1 capsule (3 mg total) by mouth daily. 09/13/19 Active diazePAM (VALIUM) 2 MG tablet Take 1 tablet (2 mg total) by mouth every 6 (six) hours as needed. 09/22/19 25 Active rimegepant (NURTEC) 75 MG disintegrating tabletIndications :migraines Nurtec ODT 75 mg disintegrating tablet TAKE 1 TABLET ONCE NEEDED FOR MIGRAINE HEADACHE A SINGLE DOSE MAX OF 1 PER DAY 08/28/19 22 2024 Discontin ued(Disco ntinued by another clinician ) venlafaxine XR (EFFEXOR-XR) 150 MG 24 hr capsuleIndication s:depression Take 1 capsule (150 mg total) by mouth daily. Indications: depression 05/05/19 23 2024 Discontin ued(Disco ntinued by another clinician ) DIAZEPAM ORIndications:anx iety Take 1 mg by mouth nightly as needed. Indications: anxiety 11/04/192024 Discontin ued(Disco ntinued by another clinician ) oxyCODONE immediate release (ROXICODONE) 5 MG immediate release tabletIndications :Acute Pain < 7 Day Supply Take 2 tablets (10 mg total) by mouth every 4 (four) hours as needed for Pain. Indications: Acute Pain < 7 Day Supply 50 tablet 08/13/19 24 2024 Discontin ued(Disco ntinued by another clinician ) VRAYLAR 1.5 MG capsule Take 1 capsule (1.5 mg total) by mouth daily. 09/17/19 24 2024 Discontin ued(Disco ntinued by another clinician ) hydroCHLOROthiazi de (HYDRODIURIL) 25 MG tablet Take 1 tablet (25 mg total) by mouth every morning. 12/23/19 24 2024 Discontin ued(Disco ntinued by another clinician ) albuterol sulfate HFA 108 (90 Base) MCG/ACT inhaler 2 puffs by Other route. 07/05/192024 Discontin ued(Disco ntinued by another clinician ) Hospital, Clinic, or Other Facility Administered Medication Ordered Dose Route Frequency Start Date End Date Status lidocaine (PF) (XYLOCAINE) 1 % injection 2 mLIndications:Chronic pain of right knee 2 mL IX Once 10/17/2024 10/17/2024 Ended triamcinolone acetonide (KENALOG-40) injection 80 mg 80 mg IX Once 10/17/2024 10/17/2024 Ended Active Problems Problem Noted Date Diagnosed Date [...] Encounters Date Type Department Care Team Description 10/17/2024 8:48 AM CDT - 10/17/2024 11:59 PM CDT Hospital Encounter [facility] [address] [place] [address] Dennis Mora Jr., DO Arrived Discharge Disposition: Home or Self Care (Routine Discharge) 10/17/2024 8:45 AM CDT Office Visit [address] [address] Dennis Mora Jr., DO Knee Pain 10/17/2024 Travel 10/14/2024 [facility] [address], [address] [place] [address] Mando Sellers MD Medication Request; Back Pain 10/13/[address] [address] Adry Tovar PA Chart Prep 10/05/2024 Orders Only [address] [address] Dennis Mora Jr., 09/30/2024 [facility] [address], [address] [place] [address] Mando Sellers MD Medication Information (Aspirin) 09/22/2024 Telephone [facility] - [address], [address] [place] [address] Mando Sellers MD Prior Authorization 09/21/[address], [address] [place] [address] Mando Sellers MD Pre-op Surgery/Cosmetic (Pre-Op Instructions/Educati on) 09/21/2024 [employer] Message Enc [address], [address] [place] [address] [facility] Pre-Op Instructions/Educati on 09/20/[address], [address] [place] [address] Mando Sellers MD Schedule Surgery 09/07/[address], [address] [place] [address] Mando Sellers MD Schedule Surgery 09/01/2024 2:20 PM CDT Office Visit [address], [address] [place] [address] Mando Sellers MD Follow Up 09/01/2024 12:37 PM CDT - 09/01/2024 11:59 PM CDT Hospital Encounter [facility] [address] [place] [address] Mando Sellers MD Discharge Disposition: Home or Self Care (Routine Discharge) 09/01/2024 Travel 08/09/2024 Telephone [facility] - [facility] [address] [facility], [address] [place] [address] Mando Sellers MD Concerns 07/28/2024 2:40 PM CDT - 07/28/2024 3:00 PM CDT Surgery [facility] [place] [address] [id number] Daniela Henderson MD INJECTION TRIGGER POINT - LEFT HARDWARE BLOCKS L5-S1 07/28/2024 1:56 PM CDT - 07/28/2024 3:13 PM CDT Hospital Encounter [facility] [place] [address] [id number] Daniela Henderson MD Discharge Disposition: Home or Self Care (Routine Discharge) 07/28/2024 Travel 07/26/2024 Telephone [facility] [place] [address] [phone] Elizabeth Bonilla RN Follow Up Call 07/26/2024 Telephone [facility] [place] [address] [phone] Elizabeth Bonilla RN Question from Last 3 Months Immunizations Immunization [...] from your doctor or pharmacy? Never 08/10/2023 [employer] Answer Date Recorded In the past 12 months has [facility] [employer], gas, oil, or water [employer] threatened to shut off services in your [...] and heating? Not hard at all 08/10/2023 [facility] of Occupat ional Health - Occupational Stress [...] any time in the past 12 m [facility], were you homeless or living in a [...] Department Care Team (Latest Contact Info) Description 11/01/2024 2:[address] [facility] [address] [place] [address] Dennis Mora Jr., DO [address] [place] [address] 11/17/2024 1:00 PM CDT [facility]ment [facility] [place] [address] Mando Sellers MD 3 [place] [address] 11/30/2024 7:30 AM CDT Hospital Encounter [facility] [address] Mando Sellers MD 3 [place] [address] 11/30/2024 7:30 AM CDT - 11/30/2024 9:[address] [place] [address] Mando Sellers MD 3 [place] [address] REMOVAL OF BILATERAL LUMBAR 5- SACRAL 1 POSTERIOR SPINAL HARDWARE 12/14/2024 1:40 PM CDT Office Visit [facility] Multispec[facility]ty Care - [facility] [address], [address] [place] [address] Lizzy Huangna GAYATHRI Solares [address] [facility] [address] [place] [address] Scheduled Procedures Name Priority Associated Diagnoses Date/Ti [...] 2 - PCV) 2016 03/08/2015 COVID-19 Vaccine (1 - 2023-2 5 season) 2023 PHQ-2 (Physician Chilkoot) 03/23/2024 DTaP, Tdap and Td Vaccines ( [...] Parker RN Medical Devices Implanted Type Area Professional Skater Device Identifier Shelf Expiration Date Model / Serial / Lot Putty Caribou Matrix Dbm/Dbf Bone 3ml - [id number] Implanted:Qty : 1 on 08/10/2023 by Mando Sellers MD at [facility] Bone N/A: Spine Lumbar [employer] [id number] 06/09/2025 [id number] / [id number] / . Putty Caribou Matrix Dbm/Dbf Bone 3ml - [id number] Implanted:Qty : 1 on 08/10/2023 by Mando Sellers MD at [facility] Bone N/A: Spine Lumbar [employer] [id number] 06/18/2025 [id number] / [id number] / . Medtronic Anteralign Spinal System Ls Spacer Implanted:Qty : 1 on 08/10/2023 by Mando Sellers MD at [facility] Cage N/A: Spine Lumbar [employer] [id number] 08/02/2029 [id number] / / [id number] Description:L5-S1 37 Mm Plate Implanted:Qty : 1 on 08/10/2023 by Mando Sellers MD at [facility] Plate N/A: Spine Lumbar [employer] . [id number] / / . 4.75 X 30 Mm Rods Implanted:Qty : 2 on 08/10/2023 by Mando Sellers MD at [facility] Andres N/A: Spine Lumbar [employer] . [id number] / / . 7.5 X 40 Mm Screws Implanted:Qty : 4 on 08/10/2023 by Mando Sellers MD at [facility] Screw N/A: Spine Lumbar [employer] . [id number] / / . 6.5 X 30 Mm Screw Implanted:Qty : 4 on 08/10/2023 by Mando Sellers MD at [facility] Screw N/A: Spine Lumbar [employer] . [id number] / / . Graft Soft Tissue 4x4cm [employer] Allograft - [id number] Implanted:Qty : 1 on 08/10/2023 by Mando Sellers MD at [facility] Tissue N/A: Spine Lumbar [employer] 01/20/2028 [id number] / [id number] / Voyager Set Screws Implanted:Qty : 4 on 08/10/2023 by Mando Sellers MD at [facility] N/A: Spine Lumbar [employer] . [id number] / / . Procedures Procedure Name Priority Date/Time Associated Diagnosis Comments XR KNEE RT MIN 4V Routine 10/17/2024 9:4 0 AM CDT Primary osteoarthritis of right knee CT LUMB SPINE WO CON Routine 09/01/2024 12:53 PM CDT S/P lumbar spinal fusion Pain from implanted hardware, subsequent encounter INJECTION TRIGGER POINT 07/28/2024 2:51 PM CDT Z98.1 (ICD-10-CM) - S/P lumbar spinal fusion T85.848D (ICD-10-CM) - Pain from implanted hardware, subsequent encounter XR PAIN CLINIC C-ARM Today 07/28/2024 1:58 PM CDT from Last 3 Months Results * XR KNEE RT MIN 4V (10/17/2024 9:40 AM CDT) Anatomical Region Laterality Modality Knee Radiographic Taylor ging 10/18/2024 9:35 AM CDT Impressions 10/18/2024 11:33 AM CDT IMPRESSION: 1. No radiographic evidence of fracture or dislocation is visualized. 2. Mild osteoarthritic changes of both knees. The attending radiologist has reviewed the image(s) and agrees with the content of this report. Ordered By: DENNIS PEREZ V Interpreted By: Reese Adan MD, 10/18/2024 9:35 AM Narrative 10/18/2024 11:33 AM CDT [address] [place] [address] EXAMINATION: XR KNEE RT MIN 4V EXAM TIME: 10/17/2024 9:32 AM HISTORY: Right knee pain COMPARISON: X-ray right knee 10/08/2023, MRI right knee 10/21/2023 TECHNIQUE: PA and AP view of the bilateral knees, lateral, sunrise views of the right knee FINDINGS: Right knee: Medial compartment joint space narrowing and very mild osteophyte formation of the patellofemoral compartment. Enthesophyte formation of the quadriceps insertion tendon on the patella. Mild suprapatellar joint effusion. No radiographic evidence of fracture or dislocation is visualized. Genu valgum Left knee: Genu valgum, medial compartment joint space narrowing. Procedure Note Steve Armstrong MD - 10/18/[address] [place] [address] EXAMINATION: XR KNEE RT MIN 4V EXAM TIME: 10/17/2024 9:32 AM HISTORY: Right knee pain COMPARISON: X-ray right knee 10/08/2023, MRI right knee 10/21/2023 TECHNIQUE: PA and AP view of the bilateral knees, lateral, sunrise viewsof the right knee FINDINGS: Right knee: Medial compartment joint space narrowing and very mildosteophyte formation of the patellofemoral compartment. Enthesophyteformation of the quadriceps insertion tendon on the patella. Mildsuprapatellar joint effusion. No radiographic evidence of fracture ordislocation is visualized. Genu valgum Left knee: Genu valgum, medial compartment joint space narrowing. IMPRESSION: 1. No radiographic evidence of fracture or dislocation is visualized. 2. Mild osteoarthritic changes of both knees. The attending radiologist has reviewed the image(s) and agrees with thecontent of this report. Ordered By: DENNIS PEREZ V Interpreted By: Reese Adan MD, 10/18/2024 9:35 AM us Dennis Mora Jr., DO GENERAL IMAGING Final Re sult * CT LUMB SPINE WO CON (09/01/2024 12:53 PM CDT) Anatomical Region Laterality Modality Spine Computed Tomogra phy 09/08/2024 2:26 PM CDT Impressions 09/08/2024 2:33 PM CDT IMPRESSION: Postsurgical change of the lumbar spine without evidence of hardware consultation. No appreciated osseous bridging. Referred By: MANDO SELLERS Interpreted By: Sandra Maldonado DO, 09/08/2024 2:26 PM Narrative 09/08/2024 2:33 PM CDT [address] [address] [address] LUMB SPINE WO CON: 09/01/2024 12:37 [...] Procedure Note Sandra Maldonado DO - 09/08/[address] [address] [address] LUMB SPINE WO CON: 09/01/2024 12:37 [...] No appreciated osseous bridging. Referred By: MANDO SELLERS Interpreted By: Sandra Maldonado DO, 09/08/2024 2:26 PM Mando Sellers MD CT Final Resul t * XR PAIN CLINIC C-ARM (07/28/2024 1:58 PM CDT) Narrative Radiology, Technologist - 07/28/2024 1:58 PM CDT This report does not contain a radiologist's interpretation. Please review associated procedure and/or operative report. Daniela Henderson MD GENERAL IMAGING Final Result from Last 3 Months Additional Health Concerns Active Problems Noted Date Diagnosed Date Autogenerated Problem 09/21/[address] [facility] Advance Directives Documents on File Type Date Recorded Patient Publicity Writer Expl anation Advance Directives and Living Will 11/14/2022 3:10 PM 03/10/19 DURABLE POW ER OF ULTRASOUND SPECIALIST FOR HEALTH CARE * Full Code (Latest [...] 9:34 PM 05/29/2021 7:00 PM Care Teams Social Services Assistant Relationship Specialty Start Date End Date Kevin Meyer PA PCP - General PHYSICIAN LIABILITY ANALYST 05/28/21
--- OUTSIDE RECORDS SUMMARY | 2024-10-20 12:46 | XMS_ITS | Clinical Summary ---
Author Organization [facility] Facility Address [address] [address] Care Team Providers Care Puff Iron Operator Name Role Phone Kevin Meyer Primary Care Provider [phone] Allergies Active Allergy Reactions Criticality Noted Date [...] 03/08/2015 Insurance Medicare Medicaid [place] Care Teams Puff Iron Operator Relationship Specialty Start Date End Date Kevin Meyer PA [address] [place] [address] PCP - General Internal Medicine 10/20/18
--- OUTSIDE RECORDS SUMMARY | 2024-10-20 12:46 | XMS_ITS | Clinical Summary ---
Author Organization [facility] Address [address] [place] [address] Phone Care Team Providers Care Lion Tamer Name Role Phone Kevin Meyer Primary Care Provider [phone] Dawit MARISCAL MD, Courtney Unavailable [phone] Brad Bone MD Unavailable [phone] Vanda Jimenez APRN, PARKING LOT MANAGER Unavailable Min Mario MD Unavailable Allergies Active [...] Description 07/21/2024 9:30 AM CDT Procedure Visit [facility] [address] [place] [address] Min Mario MD Kidney stone (Primary Dx); Urinary tract infection with hematuria, site unspecified; Acute cystitis with hematuria; Prostate cancer screening Discharge Disposition: Discharged to home or Selfcare 07/21/2024 Telephone [facility] [address] [place] [address] Anne Marie Osborne, RN Hypertension [...] st Contact Info) Description 02/02/2025 10:15 AM HAND SHAKER Office Visit [facility] [address] [place] [address] Min Mario MD [address] [address] Health Maintenance Due Date Last Done Comments [...] tolerated the procedure well. Min Mario MD [place] - SURGERY Final Result from Last 3 Months Insurance MEDICAID [place] MEDICARE C [employer] MEDICAID [place] Advance Directives * Full Code (Latest Code [...] all measures to stabilize patient. Care Teams Lion Tamer Relationship Specialty Start Date End Date Kevin Meyer PAC [address] [place] [address] PCP - General Physician Lean Six Sigma Black Belt 07/15/17 Merlene Pastor III, MD #2 [place] [address] Consulting Physician Urology 10/28/21 Brad Bone MD [address] [place] [address] Consulting Physician Neurology 09/04/22 Vanda Jimenez APRN, PARKING LOT MANAGER #[address] [place] [address] Nurse Practitioner Advanced Practice Nurse 07/31/22 Min Mario MD #2 [facility] [address] Consulting Physician Urology 12/17/23
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
--- OUTSIDE RECORDS SUMMARY | 2024-10-20 12:46 | XMS_ITS | Referral Summary ---
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 molder before breakfast Active venlafaxine XR (EFFEXOR-XR) 150 [...] (12/17/2020): Added automatically from request for surgery [id number] 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/13/2020 Overview (12/13/2020): Added automatically from request for surgery [id number] Malignant carcinoid tumor of the ileum Stimulant use disorder 05/31/2020 Severe alcohol use disorder 05/31/2020 PTSD (post-traumatic stress disorder) 05/31/2020 Chronic bilateral low back pain without sciatica 04/07/2020 Assessment & Plan (05/04/2020 12:54 PM MASTER SHIP): - flexeril 10mg TID PRN - [place] 10mg q4 PRN - lidocaine patch daily - avoid IV ketorelac and NSAIDs with starting lithium - heating packs Assessment & Plan (05/03/2020 9:56 AM MASTER SHIP): - flexeril 10mg TID PRN - [place] 10mg q4 PRN - lidocaine patch daily - avoid IV ketorelac and NSAIDs with starting lithium - heating packs Assessment & Plan (05/02/2020 11:56 AM MASTER SHIP): - flexeril 10mg TID PRN - [place] 10mg q4 PRN - lidocaine patch daily - avoid IV ketorelac and NSAIDs with starting lithium - heating packs Assessment & Plan (05/01/2020 10:58 AM MASTER SHIP): - flexeril 10mg TID PRN - NORCO 10mg q4 PRN - lidocaine patch daily - avoid IV ketorelac and NSAIDs with starting lithium - heating pads Assessment & Plan (04/30/2020 12:17 PM MASTER SHIP): - flexeril 10mg TID PRN - NORCO 10mg q4 PRN - lidocaine patch daily - avoid IV ketorelac and NSAIDs with starting lithium - heating pads Assessment & Plan (04/28/2020 8:01 AM MASTER SHIP): - flexeril 10mg TID PRN - NORCO 10mg q4 PRN - lidocaine patch daily - avoid IV ketorelac and NSAIDs with starting lithium - heating pads Assessment & Plan (04/27/2020 8:47 AM MASTER SHIP): - flexeril 10mg TID PRN - NORCO 10mg q4 PRN - lidocaine patch daily - avoid IV ketorelac and NSAIDs given ADILENE - heating pads Assessment & Plan (04/26/2020 10:11 AM MASTER SHIP): - flexeril 10mg TID PRN - NORCO 10mg q4 PRN - lidocaine patch daily - avoid IV ketorelac and NSAIDs given ADILENE - heating pads Assessment & Plan (04/25/2020 9:45 AM MASTER SHIP): - flexeril 10mg TID PRN - NORCO 10mg q4 PRN - lidocaine patch daily - avoid IV ketorelac and NSAIDs given ADILENE - heating pads Assessment & Plan (04/24/2020 9:49 AM MASTER SHIP): - flexeril 10mg TID PRN - NORCO 10mg q4 PRN - lidocaine patch daily - avoid IV ketorelac and NSAIDs given ADILENE - heating pads Assessment & Plan (04/23/2020 10:21 AM MASTER SHIP): - flexeril 10mg TID PRN - NORCO 10mg q4 PRN - lidocaine patch daily - avoid IV ketorelac and NSAIDs given ADILENE - heating pads Assessment & Plan (04/21/2020 8:38 AM MASTER SHIP): - flexeril 10mg TID PRN - NORCO 10mg q4 PRN - lidocaine patch daily - avoid IV ketorelac and NSAIDs given ADILENE - heating pads Assessment & Plan (04/20/2020 12:05 PM MASTER SHIP): - flexeril 10mg TID PRN - NORCO 10mg q4 PRN - lidocaine patch daily - avoid IV ketorelac and NSAIDs given ADILENE - heating pads Assessment & Plan (04/19/2020 9:46 AM MASTER SHIP): - flexeril 10mg TID PRN - NORCO 10mg q4 PRN - lidocaine patch daily - avoid IV ketorelac and NSAIDs given ADILENE - heating pads Assessment & Plan (04/18/2020 10:09 AM MASTER SHIP): - flexeril 10mg TID PRN - NORCO 10mg q4 PRN - lidocaine patch daily - avoid IV ketorelac and NSAIDs given ADILENE - heating pads Assessment & Plan (04/17/2020 9:31 AM MASTER SHIP): - flexeril 10mg TID PRN - NORCO 10mg q4 PRN - lidocaine patch daily - avoid IV ketorelac and NSAIDs given ADILENE - heating pads Assessment & Plan (04/16/2020 11:51 AM MASTER SHIP): - flexeril 10mg TID PRN - NORCO 10mg q4 PRN - lidocaine patch daily - avoid IV ketorelac and NSAIDs given ADILENE - heating pads Assessment & Plan (04/14/2020 9:57 AM MASTER SHIP): - flexeril 10mg TID PRN - NORCO 10mg q4 PRN - lidocaine patch daily - avoid IV ketorelac and NSAIDs given ADILENE - heating pads Assessment & Plan (04/10/2020 10:04 PM MASTER SHIP): - flexeril 10mg TID PRN - NORCO 10mg q4 PRN - lidocaine patch daily - avoid IV ketorelac and NSAIDs given ADILENE - heating pads Assessment & Plan (04/08/2020 3:23 PM MASTER SHIP): Patient endorsing exacerbation of chronic back pain [...] -PT Assessment & Plan (04/07/2020 6:23 AM MASTER SHIP): Patient endorsing exacerbation of chronic back pain and left ankle pain (had previous traumatic injury, required surgery). No other red flag symptoms/signs. Reports he has received injections in the past -Continue PRN norco, flexeril -Lidocaine patch to back -PT Depressive disorder 04/03/2020 Assessment & Plan (05/04/2020 12:54 PM MASTER SHIP): 54yo M with reported history of bipolar [...] more bright. Plan to discharge patient 05/04. Stella augmentation started with moderate improvements seen in depressive symptoms with ECT, titrated to 300 mg BID with level 0.6. - Continue OLANZapine, 20 mg, oral, Nightly, for depression - Continue Venlafaxine XR 150 mg PO daily, for depression - Continue lithium to 300 mg BID - Stella level 0.6 on 05/03 - This is [...] 05/04 Assessment & Plan (05/03/2020 9:56 AM MASTER SHIP): 54yo M with reported history of bipolar [...] more bright. Plan to discharge patient 05/04. Stella augmentation started with moderate improvements seen in depressive symptoms with ECT, titrated to 300 mg BID with level 0.6. - Continue OLANZapine, 20 mg, oral, Nightly, for depression - Continue Venlafaxine XR 150 mg PO daily, for depression - Continue lithium to 300 mg BID - Stella level 0.6 on 05/03 - This is [...] permission) Assessment & Plan (05/02/2020 11:56 AM MASTER SHIP): 54yo M with reported history of bipolar [...] permission) Assessment & Plan (05/01/2020 10:58 AM MASTER SHIP): 54yo M with reported history of bipolar [...] family Assessment & Plan (04/30/2020 12:17 PM MASTER SHIP): 54yo M with reported history of bipolar [...] family Assessment & Plan (04/28/2020 8:02 AM MASTER SHIP): 54yo M with reported history of bipolar [...] depression Assessment & Plan (04/27/2020 8:47 AM MASTER SHIP): 54yo M with reported history of bipolar [...] depression Assessment & Plan (04/26/2020 10:11 AM MASTER SHIP): 54yo M with reported history of bipolar [...] depression Assessment & Plan (04/25/2020 9:47 AM MASTER SHIP): 54yo M with reported history of bipolar [...] depression Assessment & Plan (04/24/2020 9:48 AM MASTER SHIP): 54yo M with reported history of bipolar [...] depression Assessment & Plan (04/23/2020 10:21 AM MASTER SHIP): 54yo M with reported history of bipolar [...] depression Assessment & Plan (04/21/2020 8:36 AM MASTER SHIP): 54yo M with reported history of bipolar [...] depression Assessment & Plan (04/20/2020 12:05 PM MASTER SHIP): 54yo M with reported history of bipolar [...] depression Assessment & Plan (04/19/2020 9:48 AM MASTER SHIP): 54yo M with reported history of bipolar [...] depression Assessment & Plan (04/18/2020 10:08 AM MASTER SHIP): 54yo M with reported history of bipolar [...] depression Assessment & Plan (04/17/2020 9:32 AM MASTER SHIP): 54yo M with reported history of bipolar [...] depression Assessment & Plan (04/16/2020 11:49 AM MASTER SHIP): 54yo M with reported history of bipolar [...] depression Assessment & Plan (04/14/2020 9:56 AM MASTER SHIP): 54yo M with reported history of bipolar [...] depression Assessment & Plan (04/13/2020 9:46 AM MASTER SHIP): 54yo M with reported history of bipolar [...] for ECT by cardiology, no diagnosis of ischemia/WI, no focal wall movement abnormalities on echo, [...] procedure Assessment & Plan (04/10/2020 3:25 PM MASTER SHIP): Presented to ED 04/02 with suicidal ideation, depression. Initially admitted to psychiatry for medication adjustment, received ECT x1 04/06 -Continue current meds: lexapro 5, effexor 112.5, olanzapine 20mg QHS - If COVID test is negative, transfer to Psychiatry floor. Assessment & Plan (04/08/2020 3:24 PM MASTER SHIP): Presented to ED 04/02 with suicidal ideation, depression. Initially admitted to psychiatry for medication adjustment, received ECT x1 04/06 -Psych consulted upon transfer to medicine but are following only peripherally over the weekend -Continue current meds: lexapro 5, effexor 112.5, olanzapine 20mg QHS -Psychiatry recommending discontinuing suicide precautions with 1:1 sitter Assessment & Plan (04/07/2020 6:14 AM MASTER SHIP): Presented to ED 04/02 with suicidal ideation, depression. Initially admitted to psychiatry for medication adjustment, received ECT x1 04/06 -Psych c/s upon transfer -Continue current meds: lexapro 5, effexor 112.5, olanzapine 20mg QHS -Suicide precautions, 1:1 sitter Assessment & Plan (04/12/2020 9:11 AM MASTER SHIP): 54yo M with reported history of bipolar [...] for ECT by cardiology, no diagnosis of ischemia/WI, no focal wall movement abnormalities on echo, [...] midnight Assessment & Plan (04/03/2020 2:04 PM MASTER SHIP): 54yo M with reported history of bipolar [...] interested in ECT, will facilitate transfer to [facility] to facilitate ECT consult Uptitrate SSRI and otherwise continue home depakote and zyprexa (pt reports taking these medications daily for past several yrs) PRNs agitation and comfort Milieu, supportive, and group therapy Apprec intervention Obtain collateral Full code Dispo: home with GERD (gastroesophageal reflux disease) Assessment & Plan (05/04/2020 12:54 PM MASTER SHIP): Patient has a long history of GERD. - Protonix 40 mg daily Assessment & Plan (05/03/2020 9:56 AM MASTER SHIP): Patient has a long history of GERD. - Protonix 40 mg daily Assessment & Plan (05/02/2020 11:57 AM MASTER SHIP): Patient has a long history of GERD. - Protonix 40 mg daily Assessment & Plan (05/01/2020 10:58 AM MASTER SHIP): Patient has a long history of GERD. - Protonix 40 mg daily Assessment & Plan (04/30/2020 12:17 PM MASTER SHIP): Patient has a long history of GERD. - Protonix 40 mg daily Assessment & Plan (04/28/2020 8:00 AM MASTER SHIP): Patient has a long history of GERD. -Protonix 40 mg daily Assessment & Plan (04/27/2020 8:47 AM MASTER SHIP): Patient has a long history of GERD. -Protonix 40 mg daily Assessment & Plan (04/26/2020 10:11 AM MASTER SHIP): Patient has a long history of GERD. -Protonix 40 mg daily Assessment & Plan (04/25/2020 9:45 AM MASTER SHIP): Patient has a long history of GERD. -Protonix 40 mg daily Assessment & Plan (04/24/2020 9:48 AM MASTER SHIP): Patient has a long history of GERD. -Protonix 40 mg daily Assessment & Plan (04/23/2020 10:21 AM MASTER SHIP): Patient has a long history of GERD. -Protonix 40 mg daily Assessment & Plan (04/21/2020 8:37 AM MASTER SHIP): Patient has a long history of GERD. -Protonix 40 mg daily Assessment & Plan (04/20/2020 12:05 PM MASTER SHIP): Patient has a long history of GERD. -Protonix 40 mg daily Assessment & Plan (04/19/2020 9:46 AM MASTER SHIP): Patient has a long history of GERD. -Protonix 40 mg daily Assessment & Plan (04/18/2020 10:09 AM MASTER SHIP): Patient has a long history of GERD. -Protonix 40 mg daily Assessment & Plan (04/17/2020 9:31 AM MASTER SHIP): Patient has a long history of GERD. -Protonix 40 mg daily Assessment & Plan (04/16/2020 11:51 AM MASTER SHIP): Patient has a long history of GERD. -Protonix 40 mg daily Assessment & Plan (04/14/2020 9:56 AM MASTER SHIP): Patient has a long history of GERD. -Protonix 40 mg daily Assessment & Plan (04/10/2020 3:25 PM MASTER SHIP): Continue pantoprazole Assessment & Plan (04/08/2020 3:17 PM MASTER SHIP): Continue pantoprazole Assessment & Plan (04/07/2020 6:15 AM MASTER SHIP): Continue pantoprazole Assessment & Plan (04/03/2020 5:54 PM MASTER SHIP): Patient has a long history of GERD. -Protonix 40 mg daily Hypothyroidism 04/03/2020 Assessment & Plan (05/04/2020 12:54 PM MASTER SHIP): Patient carries a diagnosis of hypothyroidism for several years. He is currently treated on levothyroxine 75 mcg daily. - Repeat TFT tests in 6 weeks - continue levothyroxine 75 mcg daily Assessment & Plan (05/03/2020 9:56 AM MASTER SHIP): Patient carries a diagnosis of hypothyroidism for several years. He is currently treated on levothyroxine 75 mcg daily. - Repeat TFT tests in 6 weeks - continue levothyroxine 75 mcg daily Assessment & Plan (05/02/2020 11:57 AM MASTER SHIP): Patient carries a diagnosis of hyperthyroidism for several years. He is currently treated on levothyroxine 75 mcg daily. - Repeat TFT tests in 6 weeks - continue levothyroxine 75 mcg daily Assessment & Plan (05/01/2020 10:58 AM MASTER SHIP): Patient carries a diagnosis of hyperthyroidism for several years. He is currently treated on levothyroxine 75 mcg daily. - Repeat TFT tests in 6 weeks - continue levothyroxine 75 mcg daily Assessment & Plan (04/30/2020 12:17 PM MASTER SHIP): Patient carries a diagnosis of hyperthyroidism for several years. He is currently treated on levothyroxine 75 mcg daily. - Repeat TFT tests in 6 weeks - continue levothyroxine 75 mcg daily Assessment & Plan (04/28/2020 8:00 AM MASTER SHIP): Patient carries a diagnosis of hyperthyroidism for several years. He is currently treated on levothyroxine 75 mcg daily. - Repeat TFT tests in 6 weeks - continue levothyroxine 75 mcg daily Assessment & Plan (04/27/2020 8:47 AM MASTER SHIP): Patient carries a diagnosis of hyperthyroidism for several years. He is currently treated on levothyroxine 75 mcg daily. - Repeat TFT tests in 6 weeks - continue levothyroxine 75 mcg daily Assessment & Plan (04/26/2020 10:11 AM MASTER SHIP): Patient carries a diagnosis of hyperthyroidism for several years. He is currently treated on levothyroxine 75 mcg daily. - Repeat TFT tests in 6 weeks - continue levothyroxine 75 mcg daily Assessment & Plan (04/25/2020 9:45 AM MASTER SHIP): Patient carries a diagnosis of hyperthyroidism for several years. He is currently treated on levothyroxine 75 mcg daily. - Repeat TFT tests in 6 weeks - continue levothyroxine 75 mcg daily Assessment & Plan (04/24/2020 9:48 AM MASTER SHIP): Patient carries a diagnosis of hyperthyroidism for several years. He is currently treated on levothyroxine 75 mcg daily. - Repeat TFT tests in 6 weeks - continue levothyroxine 75 mcg daily Assessment & Plan (04/23/2020 10:21 AM MASTER SHIP): Patient carries a diagnosis of hyperthyroidism for several years. He is currently treated on levothyroxine 75 mcg daily. - Repeat TFT tests in 6 weeks - continue levothyroxine 75 mcg daily Assessment & Plan (04/21/2020 8:37 AM MASTER SHIP): Patient carries a diagnosis of hyperthyroidism for several years. He is currently treated on levothyroxine 75 mcg daily. - Repeat TFT tests in 6 weeks - continue levothyroxine 75 mcg daily Assessment & Plan (04/20/2020 12:05 PM MASTER SHIP): Patient carries a diagnosis of hyperthyroidism for several years. He is currently treated on levothyroxine 75 mcg daily. - Repeat TFT tests in 6 weeks - continue levothyroxine 75 mcg daily Assessment & Plan (04/19/2020 9:46 AM MASTER SHIP): Patient carries a diagnosis of hyperthyroidism for several years. He is currently treated on levothyroxine 75 mcg daily. - Repeat TFT tests in 6 weeks - continue levothyroxine 75 mcg daily Assessment & Plan (04/18/2020 10:09 AM MASTER SHIP): Patient carries a diagnosis of hyperthyroidism for several years. He is currently treated on levothyroxine 75 mcg daily. - Repeat TFT tests in 6 weeks - continue levothyroxine 75 mcg daily Assessment & Plan (04/17/2020 9:31 AM MASTER SHIP): Patient carries a diagnosis of hyperthyroidism for several years. He is currently treated on levothyroxine 75 mcg daily. - Repeat TFT tests in 6 weeks - continue levothyroxine 75 mcg daily Assessment & Plan (04/16/2020 11:51 AM MASTER SHIP): Patient carries a diagnosis of hyperthyroidism for several years. He is currently treated on levothyroxine 75 mcg daily. - Repeat TFT tests in 6 weeks - continue levothyroxine 75 mcg daily Assessment & Plan (04/14/2020 9:57 AM MASTER SHIP): Patient carries a diagnosis of hyperthyroidism for several years. He is currently treated on levothyroxine 75 mcg daily. - Repeat TFT tests in 6 weeks - continue levothyroxine 75 mcg daily Assessment & Plan (04/10/2020 3:25 PM MASTER SHIP): 04/02: TSH 6.49, T4 WNL at 1.38 Continue synthroid 75mcg; repeat TFTs 6-8 weeks Assessment & Plan (04/08/2020 3:17 PM MASTER SHIP): 04/02: TSH 6.49, T4 WNL at 1.38 Continue synthroid 75mcg; repeat TFTs 6-8 weeks Assessment & Plan (04/07/2020 6:16 AM MASTER SHIP): 04/02: TSH 6.49, T4 WNL at 1.38 Continue synthroid 75mcg; repeat TFTs 6-8 weeks Assessment & Plan (04/10/2020 9:35 PM MASTER SHIP): Patient carries a diagnosis of hyperthyroidism for several years. He is currently treated on levothyroxine 75 mcg daily. - Repeat TFT tests in 6 weeks - continue levothyroxine 75 mcg daily Hyperlipemia 04/03/2020 Assessment & Plan (05/04/2020 12:55 PM MASTER SHIP): Has a stated history of hyperlipidemia has been stably treated with atorvastatin 40 mg daily for many years. Patient's LDL low on lipid panel. Notable elevated triglycerides but not fasting sample. - atorvastatin 40 mg daily - fenofibrate 145mg daily Assessment & Plan (05/03/2020 9:56 AM MASTER SHIP): Has a stated history of hyperlipidemia has been stably treated with atorvastatin 40 mg daily for many years. Patient's LDL low on lipid panel. Notable elevated triglycerides but not fasting sample. - atorvastatin 40 mg daily - fenofibrate 145mg daily Assessment & Plan (05/02/2020 11:57 AM MASTER SHIP): Has a stated history of hyperlipidemia has been stably treated with atorvastatin 40 mg daily for many years. Patient's LDL low on lipid panel. Notable elevated triglycerides but not fasting sample. - atorvastatin 40 mg daily - fenofibrate 145mg daily Assessment & Plan (05/01/2020 10:58 AM MASTER SHIP): Has a stated history of hyperlipidemia has been stably treated with atorvastatin 40 mg daily for many years. Patient's LDL low on lipid panel. Notable elevated triglycerides but not fasting sample. - atorvastatin 40 mg daily - tricor 145mg daily Assessment & Plan (04/30/2020 12:17 PM MASTER SHIP): Has a stated history of hyperlipidemia has been stably treated with atorvastatin 40 mg daily for many years. Patient's LDL low on lipid panel. Notable elevated triglycerides but not fasting sample. - atorvastatin 40 mg daily - tricor 145mg daily Assessment & Plan (04/28/2020 8:01 AM MASTER SHIP): Has a stated history of hyperlipidemia has been stably treated with atorvastatin 40 mg daily for many years. Patient's LDL low on lipid panel. Notable elevated triglycerides but not fasting sample. - atorvastatin 40 mg daily - tricor 145mg daily Assessment & Plan (04/27/2020 8:47 AM MASTER SHIP): Has a stated history of hyperlipidemia has been stably treated with atorvastatin 40 mg daily for many years. Patient's LDL low on lipid panel. Notable elevated triglycerides but not fasting sample. - atorvastatin 40 mg daily - tricor 145mg daily Assessment & Plan (04/26/2020 10:11 AM MASTER SHIP): Has a stated history of hyperlipidemia has been stably treated with atorvastatin 40 mg daily for many years. Patient's LDL low on lipid panel. Notable elevated triglycerides but not fasting sample. - atorvastatin 40 mg daily - tricor 145mg daily Assessment & Plan (04/25/2020 9:45 AM MASTER SHIP): Has a stated history of hyperlipidemia has [...] daily Assessment & Plan (04/24/2020 9:48 AM MASTER SHIP): Has a stated history of hyperlipidemia has [...] daily Assessment & Plan (04/23/2020 10:21 AM MASTER SHIP): Has a stated history of hyperlipidemia has [...] daily Assessment & Plan (04/21/2020 8:38 AM MASTER SHIP): Has a stated history of hyperlipidemia has [...] daily Assessment & Plan (04/20/2020 12:05 PM MASTER SHIP): Has a stated history of hyperlipidemia has [...] daily Assessment & Plan (04/19/2020 9:46 AM MASTER SHIP): Has a stated history of hyperlipidemia has [...] daily Assessment & Plan (04/18/2020 10:09 AM MASTER SHIP): Has a stated history of hyperlipidemia has [...] daily Assessment & Plan (04/17/2020 9:31 AM MASTER SHIP): Has a stated history of hyperlipidemia has [...] daily Assessment & Plan (04/16/2020 11:51 AM MASTER SHIP): Has a stated history of hyperlipidemia has [...] daily Assessment & Plan (04/14/2020 9:56 AM MASTER SHIP): Has a stated history of hyperlipidemia has [...] daily Assessment & Plan (04/13/2020 9:46 AM MASTER SHIP): Has a stated history of hyperlipidemia has [...] daily Assessment & Plan (04/10/2020 3:25 PM MASTER SHIP): Continue atorvastatin 40 Assessment & Plan (04/08/2020 3:17 PM MASTER SHIP): Continue atorvastatin 40 Assessment & Plan (04/07/2020 6:15 AM MASTER SHIP): Continue atorvastatin 40 Assessment & Plan (04/12/2020 9:03 AM MASTER SHIP): Has a stated history of hyperlipidemia has [...] (08/31/2018): Added automatically from request for surgery [id number] Assessment & Plan (09/06/2018 12:49 PM CDT): [...] 04/10/2020 Assessment & Plan (05/04/2020 12:55 PM MASTER SHIP): Cr 1.3 -> 1.22 resolving. Baseline <1. - encourage fluids - avoid nephrotoxic meds Assessment & Plan (05/03/2020 9:56 AM MASTER SHIP): Cr 1.3 -> 1.22 resolving. Baseline <1. - encourage fluids - avoid nephrotoxic meds Assessment & Plan (05/02/2020 11:57 AM MASTER SHIP): Cr 1.3 -> 1.22 resolving. Baseline <1. - encourage fluids - avoid nephrotoxic meds Assessment & Plan (05/01/2020 10:58 AM MASTER SHIP): Cr 1.3 -> 1.22 resolving. Baseline <1. - encourage fluids - avoid nephrotoxic meds Assessment & Plan (04/19/2020 9:46 AM MASTER SHIP): Cr 1.3 -> 1.22 resolving. Baseline <1. - encourage fluids - avoid nephrotoxic meds Assessment & Plan (04/18/2020 10:09 AM MASTER SHIP): Cr 1.3 -> 1.22 resolving. Baseline <1. - encourage fluids - avoid nephrotoxic meds Assessment & Plan (04/16/2020 11:51 AM MASTER SHIP): Cr 1.3 -> 1.22 resolving. Baseline <1. - encourage fluids - avoid nephrotoxic meds Assessment & Plan (04/14/2020 9:57 AM MASTER SHIP): Cr 1.3 -> 1.22 resolving. Baseline <1. - encourage fluids - avoid nephrotoxic meds Assessment & Plan (04/13/2020 9:47 AM MASTER SHIP): Cr 1.3 -> 1.22 resolving. Baseline <1. - encourage fluids - avoid nephrotoxic meds Assessment & Plan (04/12/2020 9:04 AM MASTER SHIP): Cr 1.3 -> 1.22 resolving. Baseline <1. - encourage fluids - avoid nephrotoxic meds Diarrhea 04/10/2020 04/20/2020 Assessment & Plan (05/04/2020 12:55 PM MASTER SHIP): Patient recently had constipation, was treated with BID miralax and senna- docusate. Was having diarrhea last week so scheduled bowel regimen discontinued. - discontinued daily senna-docusate - miralax PRN Assessment & Plan (05/03/2020 9:56 AM MASTER SHIP): Patient recently had constipation, was treated with BID miralax and senna- docusate. Was having diarrhea last week so scheduled bowel regimen discontinued. - discontinued daily senna-docusate - miralax PRN Assessment & Plan (05/01/2020 10:59 AM MASTER SHIP): Patient recently had constipation, was treated with BID miralax and senna- docusate. Was having diarrhea last week so scheduled bowel regimen discontinued. - discontinued daily senna-docusate - miralax PRN Assessment & Plan (04/19/2020 9:47 AM MASTER SHIP): Patient recently had constipation, was treated with BID miralax and senna- docusate. Was having diarrhea last week so scheduled bowel regimen discontinued. - discontinued daily senna-docusate - miralax PRN Assessment & Plan (04/16/2020 11:52 AM MASTER SHIP): Patient recently had constipation, was treated with BID miralax and senna- docusate. Was having diarrhea last week so scheduled bowel regimen discontinued. - discontinue daily senna-docusate - miralax PRN Assessment & Plan (04/14/2020 9:57 AM MASTER SHIP): Patient recently had constipation, was treated with BID miralax and senna- docusate. Endorsing nonbloody diarrhea for last 2 days. - discontinue daily senna-docusate - miralax PRN Assessment & Plan (04/10/2020 10:09 PM MASTER SHIP): Patient recently had constipation, was treated with BID miralax and senna- docusate. Endorsing nonbloody diarrhea for last 2 days. - discontinue daily senna-docusate - miralax PRN Ventral hernia without obstr uction or gangrene 08/31/2018 04/20/2020 Overview (08/31/2018): Added automatically from request for surgery [id number] Assessment & Plan (09/06/2018 12:51 PM CDT): [...] week 02/01/2021 How often do you attend [facility] or roman catholic services? More than 4 times per year 02/01/2021 Do you belong to any clubs o r organizations such as methodist groups, unions, fraternal or athletic groups, or [...] Date Recorded PHQ-2 Total Score 4 04/03/2020 [facility] - Occupational [...] place to sleep or slept in a long-term (including now)? No 02/01/2021 Personal Safety Answer Date Recorded Have you ever been in or are you currently in a harmful physical or emotional relationship or is someone making you feel afraid or unsafe? Denies 03/11/2024 Sex and Gender Information Value Date Recorded Sex Assigned at Not on file Legal Sex Male 3:25 AM MASTER SHIP Gender Identity Male 03/26/2021 11:53 AM MASTER SHIP Sexual Orientation Choose not to disclose 2021 11:53 AM MASTER SHIP Occupation Industry Job Start Date Job End Date disabled Not on file Not on file Not on file Last Filed Vital Signs Vital Sign Reading Time Taken Comments Blood Pressure 126/74 04/06/2024 9:02 AM MASTER SHIP Pulse 68 04/06/2024 9:02 AM MASTER SHIP Temperature 36.2 C (97.1 F) 04/06/2024 9:02 AM MASTER SHIP Respiratory Rate 16 03/11/2024 4:45 PM MASTER SHIP Oxygen Saturation 95% 04/06/2024 9:02 AM MASTER SHIP Inhaled Oxygen Concentration - - Weight 97.3 kg (214 lb 9.6 oz) 04/06/2024 9:02 A M MASTER SHIP Height 182.9 cm (6') 04/06/2024 9:02 AM MASTER SHIP Body Mass Index 29.1 04/06/2024 9:02 AM MASTER SHIP Plan of Treatment Not on file Medical Devices Implanted Type Area Integrated Circuit Ic Layout Designer Device Identifier Shelf Expiration Date Model / Serial / Lot [employer]/C R Bard [id number] Ventralight St Sepra 4.5in Uncoated Monofilament Lightweight - [id number] Implanted:Qty: 1 on 09/09/2018 by Xavier Aviles MD at [facility] N/A: Abdomen [employer]/C R Bard 12/19/2019 [id number] / / [id number] [id number] Mini Ignite Power Mix Injectable Graft 4ml Synthetic Tissue - [id number] - [id number] Implanted:Qty: 1 on 01/29/2021 by Don Kevin MD at [facility] 07/08/2023 [id number] / [id number] / [id number] [id number] Medline Unite 7mm 6.5mm 80mm 16mm Cannulated Color Coded Headless - [id number] Implanted:Qty: 1 on 01/29/2021 by Don Kevin MD at [facility] Left: Foot Motor2 [id number] / / Motor2 [id number] Medline Unite 6.5mm 90mm 16mm Cannulated Color Coded Headless - [id number] Implanted:Qty: 1 on 01/29/2021 by Don Kevin MD at [facility] Medicine Left: Foot [employer] [id number] / / Medline [employer] [id number] Screw Bone L50mm Od4.5mm Foot Ankle Cannulated Color Coded Osteotomy - [id number] Implanted:Qty: 1 on 01/29/2021 by Don Kevin MD at [facility] Left: Foot [employer] [id number] / / [id number] Nitnol Staple Implanted:Qty: 1 on 01/29/2021 by Don Kevin MD at [facility] Left: Foot [employer] Description:[id number] [employer] [id number] Bit 3.3mm Drill Cannulated Ao Quick Connect Color Coded - [id number] Implanted:Qty: 1 on 01/29/2021 by Don Kevin MD at [facility] Left: Foot [employer] [id number] / / Procedures Procedure Name Priority Date/Time [...] data last revised 2018. Testing performed by: [facility], [address] [place] [address], [place]., [address] Blood specimen (specimen) 12/20/2019 2:31 PM CDT 12/20/2019 6:54 PM CDT us Raoul Best MD LAB BLOOD ORDERABLES Final Re sult YULY HUNTER SAIMA 1 [facility] Department [place] [address] * COLONOSCOPY (11/18/2017 7:41 AM CDT) Anatomical Region Laterality Modality Other Narrative Procedure Note Alexander Pitts MD - 11/18/2017 7:41 AM CDT [facility] Patient Name: Baljeet Herman Procedure [...] passed under direct vision.The Pediatric Colonoscope [id number]-[id number] was introduced through the anus and advanced [...] malignant neoplasm of largeintestine CPT copyright 2017 [employer]. All rights reserved. The codes documented in this report are preliminary and upon solder technician reviewmay be revised to meet current compliance requirements. Recognized by the [employer] for promoting quality in endoscopy Alexander Pitts MD ENDOSCOPY PROCEDURES Final Result from Last 3 Months or Most Recently Relevant to Health Maintenance Insurance MEDICARE IDPA IDPA [facility] MEDICARE ADVANTAGE [facility] MEDICARE ADVANTAGE IDPA Advance Directives For more information, please contact: [phone] Documents on File Type Date Recorded Patient Fairing Man Expl anation ADVANCE DIRECTIVE 03/10/2019 8:47 AM John yousif of [facility] Trans[facility] * Full Code (Latest Code Status on [...] 9:14 AM 05/11/2020 5:01 AM Care Teams Beating Machine Operator Relationship Specialty Start Date End Date Kevin Meyer PA [address] [place] [address] PCP - General 03/23/19 Kevin Meyer PA [address] [place] [address] 03/23/19 Benja Esteban MD [address] [place] [address] Medical Oncologist/Load Mixer Hematology and Oncology 02/28/20
--- OUTSIDE RECORDS SUMMARY | 2024-10-20 12:46 | XMS_ITS | Encounter Summary ---
Author Organization [facility] Healthcare Address [address] [place] [address] Care Team Providers Care Sub Acute Care Nurse Name Role Phone Kevin Meyer Primary Care Provider [phone] Kevin Meyer Unavailable [phone] Benja Esteban MD Unavailable [phone] Samy Bravo MD PhD Unavailable [phone] Vivian Horn RN Unavailable [phone] Encounter Details Date Type Department Care Team (Late st Contact Info) Description 09/04/2020 Telephone [facility] [address] [place] [address] Dorothy Case, RT Social History [...] declined 04/03/2020 How often do you attend samaritan or taoism serv ices? Patient declined 04/03/2020 Do you belong to any clubs o r organizations such as samaritan groups, unions, fraternal or athletic groups, or [...] Date Recorded PHQ-2 Total Score 4 04/03/2020 [facility] - Occupational [...] place to sleep or slept in a care home (including now)? 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 HEAD HOLDER Gender Identity Male 03/26/2021 11:53 AM HEAD HOLDER Sexual Orientation Choose not to disclose 2021 11:53 AM HEAD HOLDER Occupation Industry Job Start Date Job End Date disabled Not on file Not on file Not on file documented as of this encounter Plan of Treatment Not on file documented as of this encounter Visit Diagnoses Not on filedocumented in this encounter Care Teams Sub Acute Care Nurse Relationship Specialty Start Date End Date Kevin Meyer PA [address] [place] [address] PCP - General 03/23/19 Kevin Meyer PA [address] [place] [address] 03/23/19 Benja Esteban MD [address] [place] [address] Medical Oncologist/Ethanol Quality Leader Hematology and Oncology 02/28/20 Samy Bravo MD PhD [address] [place] [address] Resident Psychiatry 05/31/20 09/17/20 Vivian Horn, RN [address] [address] SHOP Outpatient Pattern Data Operator 02/01/21 02/28/21 documented as of this encounter
--- OUTSIDE RECORDS SUMMARY | 2024-10-20 12:46 | XMS_ITS | Encounter Summary ---
Author Organization [facility] Address [address] [place] [address] Phone Care Team Providers Care Pinking Sewing Machine Operator Name Role Phone Kevin Meyer Primary Care Provider [phone] Amy Allen APRN, HOME CARE AND HOME HEALTH AIDES TEACHER Unavailable + [phone] Dawit MARISCAL MD, Courtney Unavailable [phone] Brad Bone MD Unavailable [phone] Vanda Jimenez APRN, HOME CARE AND HOME HEALTH AIDES TEACHER Unavailable Min Mario MD Unavailable Encounter Details Date Type Department Care Team (Latest Contact Info) Description 02/25/2023 [facility]cribe [facility] [address] [place] [address] Tavo Polo MD PhD [address] [place] [address] Abnormal echocardiogram (Primary Dx); Preprocedural [...] st Contact Info) Description 02/02/2025 10:15 AM CHEMICAL ENGRAVER Office Visit [facility] [address] [place] [id number] Min Mario MD [address], [facility] [address] [place] [address] documented as of this encounter Results * (ABNORMAL) BASIC METABOLIC PANEL W/ CALCIUM TOTAL (04/16/2023 3:23 PM CHEMICAL ENGRAVER) SODIUM 137 136 - 145 mmol/L 04/16/2023 5:06 PM [facility] POTASSIUM 3.5 3.5 - 5.1 mmol/L 04/16/2023 5:06 PM [facility] CHLORIDE 100 98 - 107 mmol/L 04/16/2023 5:06 PM [facility] CO2, VENOUS 29 22 - 30 mmol/L 04/16/2023 5:06 PM [facility] ANION GAP 11.5 <18.0 mmol/L 04/16/2023 5:06 PM [facility] GLUCOSE 92 70 - 99 mg/dL 04/16/2023 5:06 PM [facility] BUN 7(L) 8 - 26 mg/dL 04/16/2023 5:06 PM [facility] CREATININE, BLOOD 1.00 0.70 - 1.30 mg/dL 04/16/2023 5:06 PM [facility] BUN/CREATININE RATIO 7(L) 12 - 20 ratio 04/16/2023 5:06 PM [facility] CALCIUM 9.1 8.7 - 10.5 mg/dL 04/16/2023 5:06 PM [facility] IS THE PATIENT REQUIRED TO BE FASTING? No 04/16/2023 5:06 PM CHEMICAL ENGRAVER [facility] GFR, ESTIMATED >60 >=60 04/16/2023 5:06 PM CHEMICAL ENGRAVER [facility] Comment: Creatinine Clearance is the preferred criteria for selecting drug dose adjustments in renally impaired patients. The GFR is provided as additional pertinent clinical information. GFR is reported in mL/min/1.73 sq m. Calculation based on the Chronic Kidney Disease Epidemiology Collaboration (CKD- EPI) equation refit without adjustment for race. GFR, EST. >60 >=60 024 5:06 PM CHEMICAL ENGRAVER [facility] GFR, EST. NONAFRICAN >60 >=60 04/16/2023 5:06 PM CHEMICAL ENGRAVER [facility] Blood Venipuncture / Unknown 04/16/2023 3:23 PM CHEMICAL ENGRAVER 04/16/2023 4:25 PM CHEMICAL ENGRAVER Tavo Polo MD PhD CHEMISTRY ORDERABLES Final Result [facility] [address] [place] [address] documented in this encounter Visit Diagnoses Diagnosis Abnormal echocardiogram- Primary Nonspecific (abnormal) findings on radiological and other examination of other intrathoracic organs Preprocedural cardiovascular examination Pre-operative cardiovascular examination documented in this encounter Care Teams Pinking Sewing Machine Operator Relationship Specialty Start Date End Date Kevin Meyer PAC [address] [place] [address] PCP - General Physician Jewelry Designer 07/15/17 Amy Allen APRN, HOME CARE AND HOME HEALTH AIDES TEACHER [address] [address] Nurse Practitioner Cardiology 01/27/23 09/29/24 Merlene Pastor III, MD [address] [place] [address] Consulting Physician Urology 10/28/21 Brad Bone MD [address] [place] [id number] Consulting Physician Neurology 09/04/22 Vanda Jimenez APRN, HOME CARE AND HOME HEALTH AIDES TEACHER [address] [place] [address] Nurse Practitioner Advanced Practice Nurse 07/31/22 Min Mario MD [address] [address] Consulting Physician Urology 12/17/23 documented as of this encounter
--- OUTSIDE RECORDS SUMMARY | 2024-10-20 12:46 | XMS_ITS | Clinical Summary ---
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 Active venlafaxine XR (EFFEXOR-XR) [...] (12/17/2020): Added automatically from request for surgery [id number] 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/13/2020 Overview (12/13/2020): Added automatically from request for surgery [id number] Malignant carcinoid tumor of the ileum Stimulant use disorder 05/31/2020 Severe alcohol use disorder 05/31/2020 PTSD (post-traumatic stress disorder) 05/31/2020 Chronic bilateral low back pain without sciatica 04/07/2020 Assessment & Plan (05/04/2020 12:54 PM FOREIGN LANGUAGE INTERPRETER): - flexeril 10mg TID PRN - [place] 10mg q4 PRN - lidocaine patch daily - avoid IV ketorelac and NSAIDs with starting lithium - heating packs Assessment & Plan (05/03/2020 9:56 AM FOREIGN LANGUAGE INTERPRETER): - flexeril 10mg TID PRN - [place] 10mg q4 PRN - lidocaine patch daily - avoid IV ketorelac and NSAIDs with starting lithium - heating packs Assessment & Plan (05/02/2020 11:56 AM FOREIGN LANGUAGE INTERPRETER): - flexeril 10mg TID PRN - [place] 10mg q4 PRN - lidocaine patch daily - avoid IV ketorelac and NSAIDs with starting lithium - heating packs Assessment & Plan (05/01/2020 10:58 AM FOREIGN LANGUAGE INTERPRETER): - flexeril 10mg TID PRN - NORCO 10mg q4 PRN - lidocaine patch daily - avoid IV ketorelac and NSAIDs with starting lithium - heating pads Assessment & Plan (04/30/2020 12:17 PM FOREIGN LANGUAGE INTERPRETER): - flexeril 10mg TID PRN - NORCO 10mg q4 PRN - lidocaine patch daily - avoid IV ketorelac and NSAIDs with starting lithium - heating pads Assessment & Plan (04/28/2020 8:01 AM FOREIGN LANGUAGE INTERPRETER): - flexeril 10mg TID PRN - NORCO 10mg q4 PRN - lidocaine patch daily - avoid IV ketorelac and NSAIDs with starting lithium - heating pads Assessment & Plan (04/27/2020 8:47 AM FOREIGN LANGUAGE INTERPRETER): - flexeril 10mg TID PRN - NORCO 10mg q4 PRN - lidocaine patch daily - avoid IV ketorelac and NSAIDs given ADILENE - heating pads Assessment & Plan (04/26/2020 10:11 AM FOREIGN LANGUAGE INTERPRETER): - flexeril 10mg TID PRN - NORCO 10mg q4 PRN - lidocaine patch daily - avoid IV ketorelac and NSAIDs given ADILENE - heating pads Assessment & Plan (04/25/2020 9:45 AM FOREIGN LANGUAGE INTERPRETER): - flexeril 10mg TID PRN - NORCO 10mg q4 PRN - lidocaine patch daily - avoid IV ketorelac and NSAIDs given ADILENE - heating pads Assessment & Plan (04/24/2020 9:49 AM FOREIGN LANGUAGE INTERPRETER): - flexeril 10mg TID PRN - NOR[place] 10mg q4 PRN - lidocaine patch daily - avoid IV ketorelac and NSAIDs given ADILENE - heating pads Assessment & Plan (04/23/2020 10:21 AM FOREIGN LANGUAGE INTERPRETER): - flexeril 10mg TID PRN - NORCO 10mg q4 PRN - lidocaine patch daily - avoid IV ketorelac and NSAIDs given ADILENE - heating pads Assessment & Plan (04/21/2020 8:38 AM FOREIGN LANGUAGE INTERPRETER): - flexeril 10mg TID PRN - NORCO 10mg q4 PRN - lidocaine patch daily - avoid IV ketorelac and NSAIDs given ADILENE - heating pads Assessment & Plan (04/20/2020 12:05 PM FOREIGN LANGUAGE INTERPRETER): - flexeril 10mg TID PRN - NORCO 10mg q4 PRN - lidocaine patch daily - avoid IV ketorelac and NSAIDs given ADILENE - heating pads Assessment & Plan (04/19/2020 9:46 AM FOREIGN LANGUAGE INTERPRETER): - flexeril 10mg TID PRN - NORCO 10mg q4 PRN - lidocaine patch daily - avoid IV ketorelac and NSAIDs given ADILENE - heating pads Assessment & Plan (04/18/2020 10:09 AM FOREIGN LANGUAGE INTERPRETER): - flexeril 10mg TID PRN - NORCO 10mg q4 PRN - lidocaine patch daily - avoid IV ketorelac and NSAIDs given ADILENE - heating pads Assessment & Plan (04/17/2020 9:31 AM FOREIGN LANGUAGE INTERPRETER): - flexeril 10mg TID PRN - NORCO 10mg q4 PRN - lidocaine patch daily - avoid IV ketorelac and NSAIDs given ADILENE - heating pads Assessment & Plan (04/16/2020 11:51 AM FOREIGN LANGUAGE INTERPRETER): - flexeril 10mg TID PRN - NORCO 10mg q4 PRN - lidocaine patch daily - avoid IV ketorelac and NSAIDs given ADILENE - heating pads Assessment & Plan (04/14/2020 9:57 AM FOREIGN LANGUAGE INTERPRETER): - flexeril 10mg TID PRN - NORCO 10mg q4 PRN - lidocaine patch daily - avoid IV ketorelac and NSAIDs given ADILENE - heating pads Assessment & Plan (04/10/2020 10:04 PM FOREIGN LANGUAGE INTERPRETER): - flexeril 10mg TID PRN - NORCO 10mg q4 PRN - lidocaine patch daily - avoid IV ketorelac and NSAIDs given ADILENE - heating pads Assessment & Plan (04/08/2020 3:23 PM FOREIGN LANGUAGE INTERPRETER): Patient endorsing exacerbation of chronic back pain [...] -PT Assessment & Plan (04/07/2020 6:23 AM FOREIGN LANGUAGE INTERPRETER): Patient endorsing exacerbation of chronic back pain and left ankle pain (had previous traumatic injury, required surgery). No other red flag symptoms/signs. Reports he has received injections in the past -Continue PRN norco, flexeril -Lidocaine patch to back -PT Depressive disorder 04/03/2020 Assessment & Plan (05/04/2020 12:54 PM FOREIGN LANGUAGE INTERPRETER): 54yo M with reported history of bipolar [...] more bright. Plan to discharge patient 05/04. Marienthal augmentation started with moderate improvements seen in depressive symptoms with ECT, titrated to 300 mg BID with level 0.6. - Continue OLANZapine, 20 mg, oral, Nightly, for depression - Continue Venlafaxine XR 150 mg PO daily, for depression - Continue lithium to 300 mg BID - Marienthal level 0.6 on 05/03 - This is [...] 05/04 Assessment & Plan (05/03/2020 9:56 AM FOREIGN LANGUAGE INTERPRETER): 54yo M with reported history of bipolar [...] more bright. Plan to discharge patient 05/04. Marienthal augmentation started with moderate improvements seen in depressive symptoms with ECT, titrated to 300 mg BID with level 0.6. - Continue OLANZapine, 20 mg, oral, Nightly, for depression - Continue Venlafaxine XR 150 mg PO daily, for depression - Continue lithium to 300 mg BID - Marienthal level 0.6 on 05/03 - This is [...] permission) Assessment & Plan (05/02/2020 11:56 AM FOREIGN LANGUAGE INTERPRETER): 54yo M with reported history of bipolar [...] permission) Assessment & Plan (05/01/2020 10:58 AM FOREIGN LANGUAGE INTERPRETER): 54yo M with reported history of bipolar [...] family Assessment & Plan (04/30/2020 12:17 PM FOREIGN LANGUAGE INTERPRETER): 54yo M with reported history of bipolar [...] family Assessment & Plan (04/28/2020 8:02 AM FOREIGN LANGUAGE INTERPRETER): 54yo M with reported history of bipolar [...] depression Assessment & Plan (04/27/2020 8:47 AM FOREIGN LANGUAGE INTERPRETER): 54yo M with reported history of bipolar [...] depression Assessment & Plan (04/26/2020 10:11 AM FOREIGN LANGUAGE INTERPRETER): 54yo M with reported history of bipolar [...] depression Assessment & Plan (04/25/2020 9:47 AM FOREIGN LANGUAGE INTERPRETER): 54yo M with reported history of bipolar [...] depression Assessment & Plan (04/24/2020 9:48 AM FOREIGN LANGUAGE INTERPRETER): 54yo M with reported history of bipolar [...] depression Assessment & Plan (04/23/2020 10:21 AM FOREIGN LANGUAGE INTERPRETER): 54yo M with reported history of bipolar [...] depression Assessment & Plan (04/21/2020 8:36 AM FOREIGN LANGUAGE INTERPRETER): 54yo M with reported history of bipolar [...] depression Assessment & Plan (04/20/2020 12:05 PM FOREIGN LANGUAGE INTERPRETER): 54yo M with reported history of bipolar [...] depression Assessment & Plan (04/19/2020 9:48 AM FOREIGN LANGUAGE INTERPRETER): 54yo M with reported history of bipolar [...] depression Assessment & Plan (04/18/2020 10:08 AM FOREIGN LANGUAGE INTERPRETER): 54yo M with reported history of bipolar [...] depression Assessment & Plan (04/17/2020 9:32 AM FOREIGN LANGUAGE INTERPRETER): 54yo M with reported history of bipolar [...] depression Assessment & Plan (04/16/2020 11:49 AM FOREIGN LANGUAGE INTERPRETER): 54yo M with reported history of bipolar [...] depression Assessment & Plan (04/14/2020 9:56 AM FOREIGN LANGUAGE INTERPRETER): 54yo M with reported history of bipolar [...] depression Assessment & Plan (04/13/2020 9:46 AM FOREIGN LANGUAGE INTERPRETER): 54yo M with reported history of bipolar [...] for ECT by cardiology, no diagnosis of ischemia/NH, no focal wall movement abnormalities on echo, [...] procedure Assessment & Plan (04/10/2020 3:25 PM FOREIGN LANGUAGE INTERPRETER): Presented to ED 04/02 with suicidal ideation, depression. Initially admitted to psychiatry for medication adjustment, received ECT x1 04/06 -Continue current meds: lexapro 5, effexor 112.5, olanzapine 20mg QHS - If COVID test is negative, transfer to Psychiatry floor. Assessment & Plan (04/08/2020 3:24 PM FOREIGN LANGUAGE INTERPRETER): Presented to ED 04/02 with suicidal ideation, depression. Initially admitted to psychiatry for medication adjustment, received ECT x1 04/06 -Psych consulted upon transfer to medicine but are following only peripherally over the weekend -Continue current meds: lexapro 5, effexor 112.5, olanzapine 20mg QHS -Psychiatry recommending discontinuing suicide precautions with 1:1 sitter Assessment & Plan (04/07/2020 6:14 AM FOREIGN LANGUAGE INTERPRETER): Presented to ED 04/02 with suicidal ideation, depression. Initially admitted to psychiatry for medication adjustment, received ECT x1 04/06 -Psych c/s upon transfer -Continue current meds: lexapro 5, effexor 112.5, olanzapine 20mg QHS -Suicide precautions, 1:1 sitter Assessment & Plan (04/12/2020 9:11 AM FOREIGN LANGUAGE INTERPRETER): 54yo M with reported history of bipolar [...] for ECT by cardiology, no diagnosis of ischemia/NH, no focal wall movement abnormalities on echo, [...] midnight Assessment & Plan (04/03/2020 2:04 PM FOREIGN LANGUAGE INTERPRETER): 54yo M with reported history of bipolar [...] interested in ECT, will facilitate transfer to [facility] to facilitate ECT consult Uptitrate SSRI and otherwise continue home depakote and zyprexa (pt reports taking these medications daily for past several yrs) PRNs agitation and comfort Milieu, supportive, and group therapy Apprec intervention Obtain collateral Full code Dispo: home with GERD (gastroesophageal reflux disease) Assessment & Plan (05/04/2020 12:54 PM FOREIGN LANGUAGE INTERPRETER): Patient has a long history of GERD. - Protonix 40 mg daily Assessment & Plan (05/03/2020 9:56 AM FOREIGN LANGUAGE INTERPRETER): Patient has a long history of GERD. - Protonix 40 mg daily Assessment & Plan (05/02/2020 11:57 AM FOREIGN LANGUAGE INTERPRETER): Patient has a long history of GERD. - Protonix 40 mg daily Assessment & Plan (05/01/2020 10:58 AM FOREIGN LANGUAGE INTERPRETER): Patient has a long history of GERD. - Protonix 40 mg daily Assessment & Plan (04/30/2020 12:17 PM FOREIGN LANGUAGE INTERPRETER): Patient has a long history of GERD. - Protonix 40 mg daily Assessment & Plan (04/28/2020 8:00 AM FOREIGN LANGUAGE INTERPRETER): Patient has a long history of GERD. -Protonix 40 mg daily Assessment & Plan (04/27/2020 8:47 AM FOREIGN LANGUAGE INTERPRETER): Patient has a long history of GERD. -Protonix 40 mg daily Assessment & Plan (04/26/2020 10:11 AM FOREIGN LANGUAGE INTERPRETER): Patient has a long history of GERD. -Protonix 40 mg daily Assessment & Plan (04/25/2020 9:45 AM FOREIGN LANGUAGE INTERPRETER): Patient has a long history of GERD. -Protonix 40 mg daily Assessment & Plan (04/24/2020 9:48 AM FOREIGN LANGUAGE INTERPRETER): Patient has a long history of GERD. -Protonix 40 mg daily Assessment & Plan (04/23/2020 10:21 AM FOREIGN LANGUAGE INTERPRETER): Patient has a long history of GERD. -Protonix 40 mg daily Assessment & Plan (04/21/2020 8:37 AM FOREIGN LANGUAGE INTERPRETER): Patient has a long history of GERD. -Protonix 40 mg daily Assessment & Plan (04/20/2020 12:05 PM FOREIGN LANGUAGE INTERPRETER): Patient has a long history of GERD. -Protonix 40 mg daily Assessment & Plan (04/19/2020 9:46 AM FOREIGN LANGUAGE INTERPRETER): Patient has a long history of GERD. -Protonix 40 mg daily Assessment & Plan (04/18/2020 10:09 AM FOREIGN LANGUAGE INTERPRETER): Patient has a long history of GERD. -Protonix 40 mg daily Assessment & Plan (04/17/2020 9:31 AM FOREIGN LANGUAGE INTERPRETER): Patient has a long history of GERD. -Protonix 40 mg daily Assessment & Plan (04/16/2020 11:51 AM FOREIGN LANGUAGE INTERPRETER): Patient has a long history of GERD. -Protonix 40 mg daily Assessment & Plan (04/14/2020 9:56 AM FOREIGN LANGUAGE INTERPRETER): Patient has a long history of GERD. -Protonix 40 mg daily Assessment & Plan (04/10/2020 3:25 PM FOREIGN LANGUAGE INTERPRETER): Continue pantoprazole Assessment & Plan (04/08/2020 3:17 PM FOREIGN LANGUAGE INTERPRETER): Continue pantoprazole Assessment & Plan (04/07/2020 6:15 AM FOREIGN LANGUAGE INTERPRETER): Continue pantoprazole Assessment & Plan (04/03/2020 5:54 PM FOREIGN LANGUAGE INTERPRETER): Patient has a long history of GERD. -Protonix 40 mg daily Hypothyroidism 04/03/2020 Assessment & Plan (05/04/2020 12:54 PM FOREIGN LANGUAGE INTERPRETER): Patient carries a diagnosis of hypothyroidism for several years. He is currently treated on levothyroxine 75 mcg daily. - Repeat TFT tests in 6 weeks - continue levothyroxine 75 mcg daily Assessment & Plan (05/03/2020 9:56 AM FOREIGN LANGUAGE INTERPRETER): Patient carries a diagnosis of hypothyroidism for several years. He is currently treated on levothyroxine 75 mcg daily. - Repeat TFT tests in 6 weeks - continue levothyroxine 75 mcg daily Assessment & Plan (05/02/2020 11:57 AM FOREIGN LANGUAGE INTERPRETER): Patient carries a diagnosis of hyperthyroidism for several years. He is currently treated on levothyroxine 75 mcg daily. - Repeat TFT tests in 6 weeks - continue levothyroxine 75 mcg daily Assessment & Plan (05/01/2020 10:58 AM FOREIGN LANGUAGE INTERPRETER): Patient carries a diagnosis of hyperthyroidism for several years. He is currently treated on levothyroxine 75 mcg daily. - Repeat TFT tests in 6 weeks - continue levothyroxine 75 mcg daily Assessment & Plan (04/30/2020 12:17 PM FOREIGN LANGUAGE INTERPRETER): Patient carries a diagnosis of hyperthyroidism for several years. He is currently treated on levothyroxine 75 mcg daily. - Repeat TFT tests in 6 weeks - continue levothyroxine 75 mcg daily Assessment & Plan (04/28/2020 8:00 AM FOREIGN LANGUAGE INTERPRETER): Patient carries a diagnosis of hyperthyroidism for several years. He is currently treated on levothyroxine 75 mcg daily. - Repeat TFT tests in 6 weeks - continue levothyroxine 75 mcg daily Assessment & Plan (04/27/2020 8:47 AM FOREIGN LANGUAGE INTERPRETER): Patient carries a diagnosis of hyperthyroidism for several years. He is currently treated on levothyroxine 75 mcg daily. - Repeat TFT tests in 6 weeks - continue levothyroxine 75 mcg daily Assessment & Plan (04/26/2020 10:11 AM FOREIGN LANGUAGE INTERPRETER): Patient carries a diagnosis of hyperthyroidism for several years. He is currently treated on levothyroxine 75 mcg daily. - Repeat TFT tests in 6 weeks - continue levothyroxine 75 mcg daily Assessment & Plan (04/25/2020 9:45 AM FOREIGN LANGUAGE INTERPRETER): Patient carries a diagnosis of hyperthyroidism for several years. He is currently treated on levothyroxine 75 mcg daily. - Repeat TFT tests in 6 weeks - continue levothyroxine 75 mcg daily Assessment & Plan (04/24/2020 9:48 AM FOREIGN LANGUAGE INTERPRETER): Patient carries a diagnosis of hyperthyroidism for several years. He is currently treated on levothyroxine 75 mcg daily. - Repeat TFT tests in 6 weeks - continue levothyroxine 75 mcg daily Assessment & Plan (04/23/2020 10:21 AM FOREIGN LANGUAGE INTERPRETER): Patient carries a diagnosis of hyperthyroidism for several years. He is currently treated on levothyroxine 75 mcg daily. - Repeat TFT tests in 6 weeks - continue levothyroxine 75 mcg daily Assessment & Plan (04/21/2020 8:37 AM FOREIGN LANGUAGE INTERPRETER): Patient carries a diagnosis of hyperthyroidism for several years. He is currently treated on levothyroxine 75 mcg daily. - Repeat TFT tests in 6 weeks - continue levothyroxine 75 mcg daily Assessment & Plan (04/20/2020 12:05 PM FOREIGN LANGUAGE INTERPRETER): Patient carries a diagnosis of hyperthyroidism for several years. He is currently treated on levothyroxine 75 mcg daily. - Repeat TFT tests in 6 weeks - continue levothyroxine 75 mcg daily Assessment & Plan (04/19/2020 9:46 AM FOREIGN LANGUAGE INTERPRETER): Patient carries a diagnosis of hyperthyroidism for several years. He is currently treated on levothyroxine 75 mcg daily. - Repeat TFT tests in 6 weeks - continue levothyroxine 75 mcg daily Assessment & Plan (04/18/2020 10:09 AM FOREIGN LANGUAGE INTERPRETER): Patient carries a diagnosis of hyperthyroidism for several years. He is currently treated on levothyroxine 75 mcg daily. - Repeat TFT tests in 6 weeks - continue levothyroxine 75 mcg daily Assessment & Plan (04/17/2020 9:31 AM FOREIGN LANGUAGE INTERPRETER): Patient carries a diagnosis of hyperthyroidism for several years. He is currently treated on levothyroxine 75 mcg daily. - Repeat TFT tests in 6 weeks - continue levothyroxine 75 mcg daily Assessment & Plan (04/16/2020 11:51 AM FOREIGN LANGUAGE INTERPRETER): Patient carries a diagnosis of hyperthyroidism for several years. He is currently treated on levothyroxine 75 mcg daily. - Repeat TFT tests in 6 weeks - continue levothyroxine 75 mcg daily Assessment & Plan (04/14/2020 9:57 AM FOREIGN LANGUAGE INTERPRETER): Patient carries a diagnosis of hyperthyroidism for several years. He is currently treated on levothyroxine 75 mcg daily. - Repeat TFT tests in 6 weeks - continue levothyroxine 75 mcg daily Assessment & Plan (04/10/2020 3:25 PM FOREIGN LANGUAGE INTERPRETER): 04/02: TSH 6.49, T4 WNL at 1.38 Continue synthroid 75mcg; repeat TFTs 6-8 weeks Assessment & Plan (04/08/2020 3:17 PM FOREIGN LANGUAGE INTERPRETER): 04/02: TSH 6.49, T4 WNL at 1.38 Continue synthroid 75mcg; repeat TFTs 6-8 weeks Assessment & Plan (04/07/2020 6:16 AM FOREIGN LANGUAGE INTERPRETER): 04/02: TSH 6.49, T4 WNL at 1.38 Continue synthroid 75mcg; repeat TFTs 6-8 weeks Assessment & Plan (04/10/2020 9:35 PM FOREIGN LANGUAGE INTERPRETER): Patient carries a diagnosis of hyperthyroidism for several years. He is currently treated on levothyroxine 75 mcg daily. - Repeat TFT tests in 6 weeks - continue levothyroxine 75 mcg daily Hyperlipemia 04/03/2020 Assessment & Plan (05/04/2020 12:55 PM FOREIGN LANGUAGE INTERPRETER): Has a stated history of hyperlipidemia has been stably treated with atorvastatin 40 mg daily for many years. Patient's LDL low on lipid panel. Notable elevated triglycerides but not fasting sample. - atorvastatin 40 mg daily - fenofibrate 145mg daily Assessment & Plan (05/03/2020 9:56 AM FOREIGN LANGUAGE INTERPRETER): Has a stated history of hyperlipidemia has been stably treated with atorvastatin 40 mg daily for many years. Patient's LDL low on lipid panel. Notable elevated triglycerides but not fasting sample. - atorvastatin 40 mg daily - fenofibrate 145mg daily Assessment & Plan (05/02/2020 11:57 AM FOREIGN LANGUAGE INTERPRETER): Has a stated history of hyperlipidemia has been stably treated with atorvastatin 40 mg daily for many years. Patient's LDL low on lipid panel. Notable elevated triglycerides but not fasting sample. - atorvastatin 40 mg daily - fenofibrate 145mg daily Assessment & Plan (05/01/2020 10:58 AM FOREIGN LANGUAGE INTERPRETER): Has a stated history of hyperlipidemia has been stably treated with atorvastatin 40 mg daily for many years. Patient's LDL low on lipid panel. Notable elevated triglycerides but not fasting sample. - atorvastatin 40 mg daily - tricor 145mg daily Assessment & Plan (04/30/2020 12:17 PM FOREIGN LANGUAGE INTERPRETER): Has a stated history of hyperlipidemia has been stably treated with atorvastatin 40 mg daily for many years. Patient's LDL low on lipid panel. Notable elevated triglycerides but not fasting sample. - atorvastatin 40 mg daily - tricor 145mg daily Assessment & Plan (04/28/2020 8:01 AM FOREIGN LANGUAGE INTERPRETER): Has a stated history of hyperlipidemia has been stably treated with atorvastatin 40 mg daily for many years. Patient's LDL low on lipid panel. Notable elevated triglycerides but not fasting sample. - atorvastatin 40 mg daily - tricor 145mg daily Assessment & Plan (04/27/2020 8:47 AM FOREIGN LANGUAGE INTERPRETER): Has a stated history of hyperlipidemia has been stably treated with atorvastatin 40 mg daily for many years. Patient's LDL low on lipid panel. Notable elevated triglycerides but not fasting sample. - atorvastatin 40 mg daily - tricor 145mg daily Assessment & Plan (04/26/2020 10:11 AM FOREIGN LANGUAGE INTERPRETER): Has a stated history of hyperlipidemia has been stably treated with atorvastatin 40 mg daily for many years. Patient's LDL low on lipid panel. Notable elevated triglycerides but not fasting sample. - atorvastatin 40 mg daily - tricor 145mg daily Assessment & Plan (04/25/2020 9:45 AM FOREIGN LANGUAGE INTERPRETER): Has a stated history of hyperlipidemia has [...] daily Assessment & Plan (04/24/2020 9:48 AM FOREIGN LANGUAGE INTERPRETER): Has a stated history of hyperlipidemia has [...] daily Assessment & Plan (04/23/2020 10:21 AM FOREIGN LANGUAGE INTERPRETER): Has a stated history of hyperlipidemia has [...] daily Assessment & Plan (04/21/2020 8:38 AM FOREIGN LANGUAGE INTERPRETER): Has a stated history of hyperlipidemia has [...] daily Assessment & Plan (04/20/2020 12:05 PM FOREIGN LANGUAGE INTERPRETER): Has a stated history of hyperlipidemia has [...] daily Assessment & Plan (04/19/2020 9:46 AM FOREIGN LANGUAGE INTERPRETER): Has a stated history of hyperlipidemia has [...] daily Assessment & Plan (04/18/2020 10:09 AM FOREIGN LANGUAGE INTERPRETER): Has a stated history of hyperlipidemia has [...] daily Assessment & Plan (04/17/2020 9:31 AM FOREIGN LANGUAGE INTERPRETER): Has a stated history of hyperlipidemia has [...] daily Assessment & Plan (04/16/2020 11:51 AM FOREIGN LANGUAGE INTERPRETER): Has a stated history of hyperlipidemia has [...] daily Assessment & Plan (04/14/2020 9:56 AM FOREIGN LANGUAGE INTERPRETER): Has a stated history of hyperlipidemia has [...] daily Assessment & Plan (04/13/2020 9:46 AM FOREIGN LANGUAGE INTERPRETER): Has a stated history of hyperlipidemia has [...] daily Assessment & Plan (04/10/2020 3:25 PM FOREIGN LANGUAGE INTERPRETER): Continue atorvastatin 40 Assessment & Plan (04/08/2020 3:17 PM FOREIGN LANGUAGE INTERPRETER): Continue atorvastatin 40 Assessment & Plan (04/07/2020 6:15 AM FOREIGN LANGUAGE INTERPRETER): Continue atorvastatin 40 Assessment & Plan (04/12/2020 9:03 AM FOREIGN LANGUAGE INTERPRETER): Has a stated history of hyperlipidemia has [...] (08/31/2018): Added automatically from request for surgery [id number] Assessment & Plan (09/06/2018 12:49 PM CDT): [...] 04/10/2020 Assessment & Plan (05/04/2020 12:55 PM FOREIGN LANGUAGE INTERPRETER): Cr 1.3 -> 1.22 resolving. Baseline <1. - encourage fluids - avoid nephrotoxic meds Assessment & Plan (05/03/2020 9:56 AM FOREIGN LANGUAGE INTERPRETER): Cr 1.3 -> 1.22 resolving. Baseline <1. - encourage fluids - avoid nephrotoxic meds Assessment & Plan (05/02/2020 11:57 AM FOREIGN LANGUAGE INTERPRETER): Cr 1.3 -> 1.22 resolving. Baseline <1. - encourage fluids - avoid nephrotoxic meds Assessment & Plan (05/01/2020 10:58 AM FOREIGN LANGUAGE INTERPRETER): Cr 1.3 -> 1.22 resolving. Baseline <1. - encourage fluids - avoid nephrotoxic meds Assessment & Plan (04/19/2020 9:46 AM FOREIGN LANGUAGE INTERPRETER): Cr 1.3 -> 1.22 resolving. Baseline <1. - encourage fluids - avoid nephrotoxic meds Assessment & Plan (04/18/2020 10:09 AM FOREIGN LANGUAGE INTERPRETER): Cr 1.3 -> 1.22 resolving. Baseline <1. - encourage fluids - avoid nephrotoxic meds Assessment & Plan (04/16/2020 11:51 AM FOREIGN LANGUAGE INTERPRETER): Cr 1.3 -> 1.22 resolving. Baseline <1. - encourage fluids - avoid nephrotoxic meds Assessment & Plan (04/14/2020 9:57 AM FOREIGN LANGUAGE INTERPRETER): Cr 1.3 -> 1.22 resolving. Baseline <1. - encourage fluids - avoid nephrotoxic meds Assessment & Plan (04/13/2020 9:47 AM FOREIGN LANGUAGE INTERPRETER): Cr 1.3 -> 1.22 resolving. Baseline <1. - encourage fluids - avoid nephrotoxic meds Assessment & Plan (04/12/2020 9:04 AM FOREIGN LANGUAGE INTERPRETER): Cr 1.3 -> 1.22 resolving. Baseline <1. - encourage fluids - avoid nephrotoxic meds Diarrhea 04/10/2020 04/20/2020 Assessment & Plan (05/04/2020 12:55 PM FOREIGN LANGUAGE INTERPRETER): Patient recently had constipation, was treated with BID miralax and senna- docusate. Was having diarrhea last week so scheduled bowel regimen discontinued. - discontinued daily senna-docusate - miralax PRN Assessment & Plan (05/03/2020 9:56 AM FOREIGN LANGUAGE INTERPRETER): Patient recently had constipation, was treated with BID miralax and senna- docusate. Was having diarrhea last week so scheduled bowel regimen discontinued. - discontinued daily senna-docusate - miralax PRN Assessment & Plan (05/01/2020 10:59 AM FOREIGN LANGUAGE INTERPRETER): Patient recently had constipation, was treated with BID miralax and senna- docusate. Was having diarrhea last week so scheduled bowel regimen discontinued. - discontinued daily senna-docusate - miralax PRN Assessment & Plan (04/19/2020 9:47 AM FOREIGN LANGUAGE INTERPRETER): Patient recently had constipation, was treated with BID miralax and senna- docusate. Was having diarrhea last week so scheduled bowel regimen discontinued. - discontinued daily senna-docusate - miralax PRN Assessment & Plan (04/16/2020 11:52 AM FOREIGN LANGUAGE INTERPRETER): Patient recently had constipation, was treated with BID miralax and senna- docusate. Was having diarrhea last week so scheduled bowel regimen discontinued. - discontinue daily senna-docusate - miralax PRN Assessment & Plan (04/14/2020 9:57 AM FOREIGN LANGUAGE INTERPRETER): Patient recently had constipation, was treated with BID miralax and senna- docusate. Endorsing nonbloody diarrhea for last 2 days. - discontinue daily senna-docusate - miralax PRN Assessment & Plan (04/10/2020 10:09 PM FOREIGN LANGUAGE INTERPRETER): Patient recently had constipation, was treated with BID miralax and senna- docusate. Endorsing nonbloody diarrhea for last 2 days. - discontinue daily senna-docusate - miralax PRN Ventral hernia without obstr uction or gangrene 08/31/2018 04/20/2020 Overview (08/31/2018): Added automatically from request for surgery [id number] Assessment & Plan (09/06/2018 12:51 PM CDT): [...] week 02/01/2021 How often do you attend [facility] or [facility] services? More than 4 times per year 02/01/2021 Do you belong to any clubs o r organizations such as restorationism groups, unions, fraternal or athletic groups, or [...] Recorded PHQ-2 Total Score 4 04/03/2020 [facility] Occupat ional [facility] - [...] place to sleep or slept in a half-way (including now)? No 02/01/2021 Personal Safety Answer Date Recorded Have you ever been in or are you currently in a harmful physical or emotional relationship or is someone making you feel afraid or unsafe? Denies 03/11/2024 Sex and Gender Information Value Date Recorded Sex Assigned at Not on file Legal Sex Male 3:25 AM FOREIGN LANGUAGE INTERPRETER Gender Identity Male 03/26/2021 11:53 AM FOREIGN LANGUAGE INTERPRETER Sexual Orientation Choose not to disclose 2021 11:53 AM FOREIGN LANGUAGE INTERPRETER Occupation Industry Job Start Date Job End Date disabled Not on file Not on file Not on file Obstetrics History Last Filed Vital Signs Vital Sign Reading Time Taken Comments Blood Pressure 126/74 04/06/2024 9:02 AM FOREIGN LANGUAGE INTERPRETER Pulse 68 04/06/2024 9:02 AM FOREIGN LANGUAGE INTERPRETER Temperature 36.2 C (97.1 F) 04/06/2024 9:02 AM FOREIGN LANGUAGE INTERPRETER Respiratory Rate 16 03/11/2024 4:45 PM FOREIGN LANGUAGE INTERPRETER Oxygen Saturation 95% 04/06/2024 9:02 AM FOREIGN LANGUAGE INTERPRETER Inhaled Oxygen Concentration - - Weight 97.3 kg (214 lb 9.6 oz) 04/06/2024 9:02 A M FOREIGN LANGUAGE INTERPRETER Height 182.9 cm (6') 04/06/2024 9:02 AM FOREIGN LANGUAGE INTERPRETER Body Mass Index 29.1 04/06/2024 9:02 AM FOREIGN LANGUAGE INTERPRETER Plan of Treatment Health Maintenance Due Date [...] 10/2020, 08/28/2020 Medical Devices Implanted Type Area Assembly Worker Device Identifier Shelf Expiration Date Model / Serial / Lot Davol Inc/C R Bard [id number] Ventralight St Sepra 4.5in Uncoated Monofilament Lightweight - [id number] Implanted:Qty: 1 on 09/09/2018 by Xavier Aviles MD at [facility] N/A: Abdomen [employer] Inc/C R 12/19/2019 [id number] / / [id number] [email or web address] [id number] Mini Ignite Power Mix Injectable Graft 4ml Synthetic Tissue - [id number] - [id number] Implanted:Qty: 1 on 01/29/2021 by Don Kevin MD at [facility] [email or web address] 07/08/2023 [id number] / [id number] / Splash[employer] [id number] Medline Unite 7mm 6.5mm 80mm 16mm Cannulated Color Coded Headless - [id number] Implanted:Qty: 1 on 01/29/2021 by Don Kevin MD at [facility] Left: Foot [employer] [id number] / / Medline Latam[employer] [id number] Medline Unite 6.5mm 90mm 16mm Cannulated Color Coded Headless - [id number] Implanted:Qty: 1 on 01/29/2021 by Don Kevin MD at [facility] Left: Foot [employer] [id number] / / Medline [employer] [id number] Screw Bone L50mm Od4.5mm Foot Ankle Cannulated Color Coded Osteotomy - [id number] Implanted:Qty: 1 on 01/29/2021 by Don Kevin MD at [facility] Left: Foot [employer] [id number] / / 20x20 Nitnol Staple Implanted:Qty: 1 on 01/29/2021 by Don Kevin MD at [facility] Left: Foot [employer] Description:[id number] [employer] [id number] Bit 3.3mm Drill Cannulated Ao Quick Connect Color Coded - [id number] Implanted:Qty: 1 on 01/29/2021 by Don Kevin MD at [facility] Left: Foot [employer] [id number] / / Procedures Procedure Name Priority Date/Time Associated Diagnosis Comments PSA SCREEN Routine 12/20/2019 2:31 PM CDT COLONOSCOPY 11/18/2017 7:41 AM CDT from Last 3 Months or Most Recently Relevant to Health Maintenance Results * PSA screen (12/20/2019 2:31 PM CDT) PSA-Total 0.53 <=3.90 ng/mL [facility] ([place]) Comment: Interpretive Data AGE SEX REFERENCE INTERVAL 0 minutes-150 years Female None 0 minutes-49 years Male None 50-59 years Male 0-3.90 60-69 years Male 0-5.40 70-79 years Male 0-6.20 80-150 years Male 0-6.20 Current interpretive data last revised 2018. Testing performed by: [facility], [address] [place] [address], [place]., [address] Blood specimen (specimen) 12/20/2019 2:31 PM CDT 12/20/2019 6:54 PM CDT Raoul Best MD LAB BLOOD ORDERABLES Final Re sult [facility] ([place]) 1 [facility] Department [place] [address] * COLONOSCOPY (11/18/2017 7:41 AM CDT) Anatomical Region Laterality Modality Other Narrative Procedure Note Alexander Pitts MD - 11/18/2017 7:41 AM CDT [facility] Patient Name: Baljeet Herman Procedure Date: 11/18/2017 7:41 AM Date of : 1965 Admit Type: Outpatient Age: 52 Gender: Male Attending MD: Alexander Pitts MD Room: [facility] ENDOSCOPY ROOM 2 Note Status: Finalized [...] passed under direct vision.The Pediatric Colonoscope [id number]-[id number] was introduced through the anus and advanced [...] malignant neoplasm of largeintestine CPT copyright 2017 [employer] [place] [employer]. All rights reserved. The codes documented in this report are preliminary and upon real estate paralegal reviewmay be revised to meet current compliance requirements. Recognized by the [place] [employer] for promoting quality in endoscopy Alexander Pitts MD ENDOSCOPY PROCEDURES Final Result from Last 3 Months or Most Recently Relevant to Health Maintenance Insurance MEDICARE IDPA IDPA [facility] MEDICARE ADVANTAGE [facility] MEDICARE ADVANTAGE IDPA Advance Directives For more information, please contact: [phone] Documents on File Type Date Recorded Patient Radiation Safety Officer Expl anation ADVANCE DIRECTIVE 03/10/2019 8:47 AM John r of [employer] * Full Code (Latest Code Status on [...] 9:14 AM 05/11/2020 5:01 AM Care Teams Cnc Machine Operator Relationship Specialty Start Date End Date Kevin Meyer PA [address] [place] [address] PCP - General 03/23/19 Kevin Meyer PA [address] [place] [address] 03/23/19 Benja Esteban MD [address] [place] [address] Medical Oncologist/Handyman Hematology and Oncology 02/28/20
--- OUTSIDE RECORDS SUMMARY | 2024-10-20 12:46 | XMS_ITS | Clinical Summary ---
[facility] Address [address] [place] [address] Care Team Providers Care Remelt Furnace Expediter Name Role Phone Kevin Meyer Primary Care [...] 09/17/19 24 Active naloxone (NARCAN) 4 mg/spray [place]greg[place], Non-Aerosol EMERGENCY USE ONLY: Administer 1 spray [...] unfortunately it is not offered at [facility] and he will have to go to [facility]. 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) 10/07/2024 Orders Only [facility] Oncology and Hematology - [place] [address] [place] [address] Jorden Serrano MD 10/05/2024 Orders Only [facility] Oncology and Hematology - [address] [place] [address] Jorden Serrano MD 10/04/2024 Orders Only [facility] Oncology and Hematology - [address] [place] [phone] Jorden Serrano MD 09/30/2024 Refill [facility] Oncology and Hematology - [address] [place] [phone] Jorden Serrano MD 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) 09/21/2024 Orders Only [facility] Oncology and Hematology - [address] [place] [phone] Jorden Serrano MD 09/16/2024 Orders Only [facility] Oncology and Hematology - [address] Jorden Serrano MD 09/13/2024 External Device Data STL ABSTRACTION Provider, Abstract 09/10/2024 Refill [facility] Oncology and Hematology - [address] [place] [phone] Jorden Serrano MD 09/01/2024 Refill [facility] Oncology and Hematology - [address] [place] [address] Jorden Serrano MD 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) 08/19/2024 Orders Only [facility] Oncology and Hematology - [address] Jorden Serrano MD 08/16/2024 Orders Only [facility] Oncology and Hematology - [address] [place] [address] Jorden Serrano MD 08/15/2024 Orders Only [facility] Oncology and Hematology - [address] [place] [address] Jorden Serrano MD Benign hypertension; 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) 08/10/2024 External Device Data STL ABSTRACTION Provider, Abstract 08/09/2024 External Device Data STL ABSTRACTION Provider, Abstract 08/02/2024 Refill [facility] Oncology and Hematology [facility] [address] [place] [address] Jorden Serrano MD 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 Blood Result [facility] Jorden Serrano MD CHEMISTRY ORDERABLES Final Resu lt * COMPREHENSIVE METABOLIC PANEL (10/04/2024 8:45 AM CDT) Only the most recent of3 resultswithin the time period is included. Blood Jorden Serrano MD CHEMISTRY ORDERABLES Final Resu lt * CT ABDOMEN PELVIS W CONTRAST (10/04/2024 8:40 AM CDT) Anatomical Region Laterality Modality Abdomen Computed Tomogra phy Result [facility] Jorden Serrano MD CT ORDERABLES Final Result * BASIC METABOLIC PANEL (09/09/2024 1:48 PM CDT) Blood Jorden Serrano MD CHEMISTRY ORDERABLES Final Resu lt * HX COLONOSCOPY (07/02/2021) Abstract Provider GENERIC SURGICAL HISTORY Final Result from Last 3 Months or Most Recently Relevant to Health Maintenance Insurance [place]ICAID [place] [facility] [id number] Care Teams Remelt Furnace Expediter Relationship Specialty Start Date End Date Kevin Meyer PA [address] [place] [address] PCP - General Physician Polish Compounder 05/31/21
--- OUTSIDE RECORDS SUMMARY | 2024-10-20 12:46 | XMS_ITS | Encounter Summary ---
Author Organization [facility] Address [address] [facility] [address] [place] [address] Phone Care Team Providers Care Backup Administrative Coordinator Name Role Phone Kevin Meyer Primary Care Provider [phone] Kevin Meyer Primary Care Provider [phone] Kevin Meyer Unavailable [phone] Benja Esteban MD Unavailable [phone] Samy Bravo MD PhD Unavailable [phone] Vivian Horn RN Unavailable [phone] Encounter Details Date Type Department Care Team (Late st Contact Info) Description 05/20/2017 Orders Only [facility] ProviderEstefania MD [address] [place] [address] Social History Tobacco Use Types Packs/Day Years Used Date Smoking Tobacco: Former Smokeless Tobacco: Never Alcohol Use Standard Drinks/Week Comments No 0 (1 standard drink = 0.6 oz pur e alcohol) Sex and Gender Information Value Date Recorded Sex Assigned at Not on file Legal Sex Male 3:25 AM HIGH SPEED PRINTER OPERATOR Gender Identity Male 03/26/2021 11:53 AM HIGH SPEED PRINTER OPERATOR Sexual Orientation Choose not to disclose 2021 11:53 AM HIGH SPEED PRINTER OPERATOR documented as of this encounter Plan of Treatment Not on file documented as of this encounter Procedures Procedure Name Priority Date/Time Associated Diagnosis Comments DISCHARGE LABORATORY CUMULATIVE REPORT 05/20/2017 12:00 AM HIGH SPEED PRINTER OPERATOR documented in this encounter Results * DISCHARGE LABORATORY CUMULATIVE REPORT (05/20/2017 12:00 AM HIGH SPEED PRINTER OPERATOR) Narrative 05/20/2017 12:00 AM HIGH SPEED PRINTER OPERATOR Ordered by an unspecified provider. us Historical Provider LAB BLOOD ORDERABLES Elena l Result documented in this encounter Visit Diagnoses Not on filedocumented in this encounter Care Teams Backup Administrative Coordinator Relationship Specialty Start Date End Date Kevin Meyer PA [address] [place] [address] PCP - General 08/13/16 03/22/19 Kevin Meyer PA [address] [place] [address] PCP - General 03/23/19 Kevin Meyer PA [address] [place] [address] 03/23/19 Benja Esteban MD [address] [place] [address] Medical Oncologist/Bridge Repair Crew Person Hematology and Oncology 02/28/20 Samy Bravo MD PhD [address] [place] [address] Resident Psychiatry 05/31/20 09/17/20 Vivian Horn, RN [address] [address] SHOP Outpatient Cable Reeler 02/01/21 02/28/21 documented as of this encounter
--- OUTSIDE RECORDS SUMMARY | 2024-10-20 12:46 | XMS_ITS ---
Author Organization [facility] Address [address] [place] [address] Phone Care Team Providers Care Behavioral Medical Director Name Role Phone Kevin Meyer Primary Care Provider [phone] Dawit MARISCAL MD, Courtney Unavailable [phone] Brad Bone MD Unavailable [phone] Vanda Jimenez APRN, SURGICAL SCRUB TECHNOLOGIST Unavailable Min Mario MD Unavailable OnCserge Chronic Condition Monitoring Status:Enrolled (Active) Start date:04/20/2024 Enrollment date:04/20/2024 Related social drivers of health:Intimate Partner Violence, Social Connections, Alcohol Use, Tobacco Use, Financial Resource Strain,Depression, Stress, Physical Activity, Food Insecurity, Transportation Needs, Housing Stability, Utilities Continued Care and Services Coordination
--- OUTSIDE RECORDS SUMMARY | 2024-10-20 12:46 | XMS_ITS | Clinical Summary ---
Author Organization [facility] Address [address] [place] [address] Care Team Providers Care Rotary Helper Name Role Phone Kevin Meyer Primary Care Provider [phone] Source Comments [facility],non-owned Affiliates and Associated Physician Practices is amultiple site organization consisting of ambulatory clinics and hospital sitesin [place], [place], [place] and [place]. This disclosure is being madepursuant to the [...] on file Legal Sex Male 4:24 AM OYSTER PREPARER Gender Identity Not on file Sexual Orientation Not on file Last Filed Vital Signs Vital Sign Reading Time Taken Comments Blood Pressure 134/79 04/23/2022 1:34 PM OYSTER PREPARER Pulse 62 04/23/2022 1:34 PM OYSTER PREPARER Temperature 36.4 C (97.5 F) 04/23/2022 1:34 PM OYSTER PREPARER Respiratory Rate 18 10/15/2021 6:45 PM CDT Oxygen Saturation 100% 04/23/2022 1:34 PM OYSTER PREPARER Inhaled Oxygen Concentration - - Weight 94.3 kg (208 lb) 04/23/2022 1:34 PM OYSTER PREPARER Height 182.9 cm (6') 10/15/2021 7:20 AM [...] COMPREHENSIVE METABOLIC PANEL Routine 04/23/2022 11:02 AM OYSTER PREPARER Neuroendocrine carcinoma metastatic to liver from Last 3 Months or Most Recently Relevant to Health Maintenance Results * (ABNORMAL) COMPREHENSIVE METABOLIC PANEL (04/23/2022 11:02 AM [facility]) BUN 14 7 - 26 mg/dL 04/23/2022 11:56 AM [facility] Creatinine 0.81 0.71 - 1.16 mg/dL 04/23/2022 11:56 AM [facility] Sodium 136 136 - 145 mmol/L 04/23/2022 11:56 AM [facility] Potassium 3.9 3.5 - 4.5 mmol/L 04/23/2022 11:56 AM [facility] Chloride 102 98 - 107 mmol/L 04/23/2022 11:56 AM [facility] CO2 23 22 - 29 mmol/L 04/23/2022 11:56 AM [facility] Glucose 117(H) 70 - 115 mg/dL 04/23/2022 11:56 AM [facility] Calcium 9.1 8.4 - 10.2 mg/dL 04/23/2022 11:56 AM [facility] Protein Total 7.0 6.0 - 8.3 g/dL 04/23/2022 11:56 AM [facility] Albumin 3.8 3.4 - 5.0 g/dL 04/23/2022 11:56 AM [facility] Bilirubin Total 0.4 0.2 - 1.2 mg/dL 04/23/2022 11:56 AM [facility] Alkaline Phosphatase 112 40 - 150 U/L 04/23/2022 11:56 AM [facility] ALT 62(H) 5 - 55 U/L 04/23/2022 11:56 AM [facility] AST 31 5 - 34 U/L 04/23/2022 11:56 AM [facility] Anion Gap 15 8 - 18 04/23/2022 11:56 AM [facility] BUN/Creatinine Ratio 17 7 - 23 04/23/2022 11:56 AM [facility] Osmolality Calculated 284 270 - 300 mOsm/kg 04/23/2022 11:56 AM [facility] Albumin/Globulin Ratio 1.2 1.1 - 2.3 04/23/2022 11:56 AM OYSTER PREPARER [facility] eGFR by CKD-EPI >90 >=90 mL/min/1.7 3 m2 04/23/2022 11:56 AM [facility] Blood BLOOD SPECIMEN / Unknown Lab Venipuncture / Unknown 04/23/2022 11:02 AM OYSTER PREPARER 04/23/2022 11:31 AM OYSTER PREPARER Blair Le MD LAB - CHEMISTRY ORDERABLES Final Result [facility] [address] [place] [address], [facility] [phone] from Last 3 Months or Most Recently Relevant to Health Maintenance Insurance MEDICAID - OUT OF STATE MEDICAID - [place] UHC MANAGED MEDICARE ADV Care Teams Rotary Helper Relationship Specialty Start Date End Date Kevin Meyer PA [address] [place] [address] PCP - General 06/28/21
--- OUTSIDE RECORDS SUMMARY | 2024-10-20 12:46 | XMS_ITS | Encounter Summary ---
Author Organization [facility] Address [facility] [place] [address] Care Team Providers Care Fish Header Name Role Phone Kevin Meyer Primary Care Provider [phone] Encounter Details Date Type Department Care Team (Latest Contact Info) Description 09/21/2024 [place] Message Enc [facility] Medical Group Multispecialty Care - [facility] [address], [address] [place] [address] [facility], [facility] Provider Pre-Op Instructions/Educat ion Social History Tobacco [...] from your doctor or pharmacy? Never 08/10/2023 [facility] Utilities Answer Date Recorded In [...] and heating? Not hard at all 08/10/2023 [facility] - Occupational [...] time in the past 12 m [facility], were you homeless or living in [...] Appointment [facility] [address] [place] [address] Keny Mora Jr., DO [address] [place] [id number] 11/17/2024 1:00 PM CDT Appointment [facility] [place] [address] Mando Rojas MD [address] [place] [address] 11/30/2024 7:30 AM CDT Hospital Encounter [facility] [place] [address] Mando Rojas MD [address] [place] [address] 11/30/2024 7:30 AM CDT - 11/30/2024 9:32 AM CDT Surgery [facility] [address] Mando Rojas MD [address] [place] [address] REMOVAL OF BILATERAL LUMBAR 5- SACRAL 1 POSTERIOR SPINAL HARDWARE 12/14/2024 1:40 PM CDT Office Visit [facility] Medical Group Multispecialty Care - [facility] [address], [address] [place] [address] Jennifer Huang APRN [address] [facility] [address] [place] [address] Scheduled Procedures Name Priority Associated Diagnoses Date/Ti [...] documented as of this encounter Care Teams Fish Header Relationship Specialty Start Date End Date Kevin Meyer PA PCP - General PHYSICIAN SIGNALS OFFICER 05/28/21 documented as of this encounter
--- OUTSIDE RECORDS SUMMARY | 2024-10-20 12:46 | XMS_ITS | Encounter Summary ---
Author Organization [facility] Address Formerly [facility] [place] [address] Care Team Providers Care Systems Architect Name Role Phone None, Provider Primary Care Provider Kevin Hassan Primary Care Provider [phone] Encounter Details Date Type Department Care Team (Late st Contact Info) Description 08/28/2018 Abstract SFL CONVERSION [address] [place] [address] , Generic Conversion, Social History Tobacco Use [...] CDT Appointment [facility] [address] [place] [address] Keny Mora Jr., DO [address] [place] [address] 11/17/2024 1:[address] [address] Mando Rojas MD [address] [facility] [place] [id number] 11/30/2024 7:30 AM CDT Hospital Encounter [facility] [place] [address] Mando Rojas MD 3 [place] [address] 11/30/2024 7:30 AM CDT - 11/30/2024 9:32 AM CDT [place] [address] Mando Rojas MD 3 [place] [address] REMOVAL OF BILATERAL LUMBAR 5- SACRAL 1 POSTERIOR SPINAL HARDWARE 12/14/2024 1:40 PM CDT Office Visit [facility] Multispecialty Care - [facility] 3 [facility], [address] [place] [address] Jennifer Huang APRN 3 [facility] [address] [place] [address] Scheduled Procedures Name Priority Associated Diagnoses Date/Ti [...] Rule Out 05/25/2021 05/25/2021 05/25/2021 9:39 PM BARK PRESS OPERATOR COVID-19 Rule Out 03/03/2023 03/03/2023 03/04/2023 7:03 PM BARK PRESS OPERATOR documented as of this encounter Care Teams Systems Architect Relationship Specialty Start Date End Date None, Provider, PCP - General 01/10/20 05/27/21 Kevin Meyer PA PCP - General PHYSICIAN INSTRUMENT SPECIALIST 05/28/21 documented as of this encounter
[2024-10-20 12:51] LABS: HCO3 ABG 22.8 mmol/L (23-29); Oxygen Saturation ABG 96.9 % (95-97); PCO2 ABG 31.8 mmHg (35-45); PO2 ABG 92.0 mmHg (80-90)
[2024-10-20 12:52] LABS: Liters per Minute 0.0 LPM; Modified Allen's Test Pass; Site Drawn RIGHT RADIAL
[2024-10-20 12:53] LABS: Hematocrit 40.6 % (40.0-54.0); Hemoglobin 13.7 g/dL (14.0-18.0); Mean Corpuscular HGB Conc 33.7 g/dL (32-36); Mean Corpuscular Hemoglobin 30.7 pg (27.0-31.0); Mean Corpuscular Volume 91.0 fL (78.0-102.0); Platelet Count Result 257 K/mm3 (150-420); Red Blood Count 4.46 M/mm3 (4.70-6.10); White Blood Count 11.9 K/mm3 (4.8-10.8)
[2024-10-20 13:02] LABS: Influenza A QL RT-PCR Negative (Negative); Influenza B QL RT-PCR Negative (Negative); RSV RNA, RT-PCR Negative (Negative); SARS-CoV-2 RNA PCR Negative (Negative)
[2024-10-20 13:09] LABS: Immature Granulocyte Percent A 0.5 % (0.0-0.0); Lymphocytes Absolute Auto 1.73 K/mm3 (1.10-4.50); Nucleated Red Blood Cells Absolute Auto 0.00 K/mm3 (0.00-0.00); Nucleated Red Blood Cells Perc 0.0 % (0-0.0)
[2024-10-20 13:10] LABS: Alanine Aminotransferase 32 U/L (6-50); Albumin Level 4.5 g/dL (3.5-5.1); Alkaline Phosphatase 74 U/L (38-126); Anion Gap 5 mmol/L (4-12); Aspartate Amino Transferase 38 U/L (17-59); Bilirubin,Total 0.7 mg/dL (0.2-1.3); Blood Urea Nitrogen 22 mg/dL (9-20); Calcium 9.3 mg/dL (8.4-10.2); Carbon Dioxide 26 mmol/L (22-30); Chloride 109 mmol/L (98-107); Estimated CRCL calculation 85 ml/min; Estimated Glomerular Filt Rate > 60; Glucose 110 mg/dL (65-110); Osmolality Calculated 294 mOsm/kg (285-295); Potassium 3.4 mmol/L (3.4-5.0); Sodium 140 mmol/L (137-145); Total Protein 7.2 g/dL (6.3-8.2)
[2024-10-20 13:20] LABS: NT Pro B Type Natriuretic Pept 83 pg/mL (19.9-100)
[2024-10-20] MEDS: IPRATROPIUM 0.5 MG/ALBUTEROL SULFATE 2.5 MG AMPUL.NEB 3 ML INHALATION (13:21)
[2024-10-20 13:22] LABS: Troponin I < 0.012 ng/mL (0.000-0.034)
[2024-10-20 13:23] VITALS: PULSE 60; RESP 16; O2SAT 100
[2024-10-20 13:24] LABS: INR 0.9; Prothrombin Time 10.4 Seconds (9.64-11.0)
[2024-10-20 13:29] VITALS: PULSE 59; RESP 20; O2SAT 100
[2024-10-20 13:33] LABS: Partial Thromboplastin Time 23.8 Sec (23.9-30.70)
--- NOTE | 2024-10-20 14:20 | PC.NURSE ---
IV attempted by 3 different RNs. No successful IV established. Will do CT without contrast per ERP.
[2024-10-20 15:29] VITALS: BP 142/79; PULSE 64; RESP 16; TEMP 36.4; O2SAT 100
--- NOTE | 2024-10-20 15:30 | PC.NURSE ---
ERP aware of pt's vitals. No new orders at this time.
--- NOTE | 2024-10-23 12:59 | PC.NURSE ---
PRELIMINARY BLOOD CULTURE REPORT; NO GROWTH IN 48 HOURS.
--- NOTE | 2024-10-27 12:40 | PC.NURSE ---
FINAL BLOOD CULTURE REPORT; NO GROWTH IN 5 DAYS.
== END 2024-10-20 15:34 | disposition home or self-care (01) ==
PROVIDERS: Emergency Provider Emergency Medicine; PCP Physician Assistant
DX: J40 Bronchitis, not specified as acute or chronic (principal); I10 Essential (primary) hypertension; Z85.038 Personal history of other malignant neoplasm of large intestine; E78.5 Hyperlipidemia, unspecified; E03.9 Hypothyroidism, unspecified; Z87.891 Personal history of nicotine dependence; Z20.822 Contact with and (suspected) exposure to COVID-19
CPT/HCPCS: 36415; 36600; 71045; 71250; 80053; 82805; 83880; 84484; 85025; 85610; 85730; 87637; 93005; 94640; 99284; J7512

== ENCOUNTER 2025-01-16 12:36 | Outpatient (CLI) | payer MEDICARE, MEDICAID, SELFPAY ==
--- NOTE | ~2025-01-16 | CT_ITS ---
EXAMINATION: CT chest abdomen pelvis w con DATE: 01/16/2025 13:16 INDICATION: Malignant carcinoid. TECHNIQUE: Computed tomography (CT) of the chest, abdomen, and pelvis was performed with 100 mL Omnipaque 350 intravenous contrast. Automated exposure control and iterative reconstruction technique were employed. The dose-length product was 500.06 mGy-cm. COMPARISON: Chest CT 10/20/2024, 07/04/24, CT abdomen and pelvis 10/04/2024, 05/04/23, abdomen MRI 05/22/21 FINDINGS: CHEST CT: There is a bleb at right lung apex. There are a few scattered nodules in the lungs measuring up to 5 mm. There is mild atelectasis bilaterally. There is mild scarring at the lung apices. No pleural effusion. The heart size is normal. There are coronary artery calcifications. No pericardial effusion. There is mild bilateral gynecomastia. There are changes of anterior fusion procedure in cervical spine. There is mild chronic height loss of multiple thoracic vertebral bodies. There is mild thoracic spondylosis. ABDOMEN/PELVIS CT: There is volume loss of right hepatic lobe. There is a wedge-shaped area of contrast hyperenhancement in right hepatic lobe, stable from 05/04/2023, likely transient hepatic attenuation difference (PAULA). The spleen is normal. The gallbladder is absent. The pancreas and adrenal glands are normal. There are approximately 7 stones in right kidney measuring up to 5 mm. There is a 2 mm stone in left kidney. There are cysts in left kidney measuring up to 12 mm. The prostate is mildly enlarged. There are changes of appendectomy. There are no dilated loops of bowel. There are no pathologically enlarged lymph nodes. There is no free intraperitoneal fluid. There are chronic bilateral L5 pars defects. There are changes of anterior fusion procedure at L5-S1. There is moderate lumbar spondylosis. IMPRESSION: 1. Pulmonary nodules measuring up to 5 mm, stable from 07/04/2024, likely benign. Reviewed, dictated and finalized at location E. IMPRESSION: 1. Pulmonary nodules measuring up to 5 mm, stable from 07/04/2024, likely benign .
--- OUTSIDE RECORDS SUMMARY | 2025-01-16 14:04 | XMS_ITS | Encounter Summary ---
Author Organization [facility] Address [address] [facility] [address] [place] [address] Phone Care Team Providers Care Infantry Assaultman Name Role Phone Kevin Meyer Primary Care Provider [phone] Kevin Meyer Primary Care Provider [phone] Kevin Meyer Unavailable [phone] Benja Esteban MD Unavailable [phone] Samy rBavo MD PhD Unavailable [phone] Vivian Horn RN Unavailable [phone] Encounter Details Date Type Department Care Team (Late st Contact Info) Description 05/20/[address] [facility] ProviderEstefania MD [address] [place] [address] Social History Tobacco Use Types Packs/Day Years Used Date Smoking Tobacco: Former Smokeless Tobacco: Never Alcohol Use Standard Drinks/Week Comments No 0 (1 standard drink = 0.6 oz pur e alcohol) Sex and Gender Information Value Date Recorded Sex Assigned at Not on file Legal Sex Male 3:25 AM FUEL CELL TECHNICIAN Gender Identity Male 03/26/2021 11:53 AM FUEL CELL TECHNICIAN Sexual Orientation Choose not to disclose 2021 11:53 AM FUEL CELL TECHNICIAN documented as of this encounter Plan of Treatment Not on file documented as of this encounter Procedures Procedure Name Priority Date/Time Associated Diagnosis Comments DISCHARGE LABORATORY CUMULATIVE REPORT 05/20/2017 12:00 AM FUEL CELL TECHNICIAN documented in this encounter Results * DISCHARGE LABORATORY CUMULATIVE REPORT (05/20/2017 12:00 AM FUEL CELL TECHNICIAN) Narrative 05/20/2017 12:00 AM FUEL CELL TECHNICIAN Ordered by an unspecified provider. us Historical Provider LAB BLOOD ORDERABLES Elena l Result documented in this encounter Visit Diagnoses Not on filedocumented in this encounter Care Teams Infantry Assaultman Relationship Specialty Start Date End Date Kevin Meyer PA [address] [place] [address] PCP - General 08/13/16 03/22/19 Kevin Meyer PA [address] [place] [address] PCP - General 03/23/19 Kevin Meyer PA [address] [place] [address] 03/23/19 Benja Esteban MD [address] [place] [address] Medical Oncologist/Sand Screener Operator Hematology and Oncology 02/28/20 Samy Bravo MD PhD [address] [place] [address] Resident Psychiatry 05/31/20 09/17/20 Vivian Horn, RN [address] [address] SHOP Outpatient Separator Tender 02/01/21 02/28/21 documented as of this encounter
--- OUTSIDE RECORDS SUMMARY | 2025-01-16 14:04 | XMS_ITS | Encounter Summary ---
Author Organization [facility] Address [address] [facility] [place] [address] Phone Care Team Providers Care Pipe Fitter Marine Name Role Phone Kevin Meyer Primary Care Provider [phone] Amy Allen APRN, PASTOR Unavailable [phone] Dawit MARISCAL MD, Courtney Unavailable [phone] Brad Bone MD Unavailable [phone] Vanda Jimenez APRN, PASTOR Unavailable Min Mario MD Unavailable Reason for Visit * Reason Comments Medication Refill Encounter Details Date Type Department Care Team (Late st Contact Info) Description 06/22/2024 Refill [facility] [address] [place] [address] Vanda Jimenez APRN, PASTOR [address] [place] [address] Medication Refill Social History Tobacco Use Types [...] st Contact Info) Description 02/02/2025 10:15 AM CIDER MAKER Office Visit [facility] UROLOGY #[address] [place] [address] Min Mario MD #[address] [address] 02/20/2025 8:30 AM CIDER MAKER [facility] [address] [place] [address] Vanda Jimenez APRN, PASTOR [address] [place] [address] Discharge Disposition: Discharged to home or Selfcare 04/06/2025 8:30 AM CIDER MAKER Office Visit [facility] - [facility]enterology - [place] #[address] [place] [address] Marisa Patrick MD 1 [place] [address] documented as of this encounter Visit Diagnoses Not on filedocumented in this encounter Care Teams Pipe Fitter Marine Relationship Specialty Start Date End Date Kevin Meyer, [facility] [address] [place] [address] PCP - General Physician Micro Paleontologist 07/15/17 Amy Allen APRN, PASTOR #2 [facility] [address] [place] [address] Nurse Practitioner Cardiology 01/27/23 09/29/24 Merlene Pastor III, MD #[address] [place] [address] Consulting Physician Urology 10/28/21 Brad Bone MD #[address] [place] [address] Consulting Physician Neurology 09/04/22 Vanda Jimenez APRN, PASTOR #[address] [place] [address] Nurse Practitioner Advanced Practice Nurse 07/31/22 Min Mario MD [facility] [address] [address] Consulting Physician Urology 12/17/23 documented as of this encounter
--- OUTSIDE RECORDS SUMMARY | 2025-01-16 14:04 | XMS_ITS | Clinical Summary ---
Author Organization [facility] Address [address] [place] [address] Care Team Providers Care Poultry Cutter Name Role Phone Kvein Meyer Primary Care Provider [phone] Allergies Active Allergy Reactions Criticality Noted Date [...] daily. 4 Active naloxone (NARCAN) 4 mg/spray [place], Non-Aerosol EMERGENCY USE ONLY: Administer 1 spray (4 mg) in one nostril one time. May repeat in alternating nostrils every 2-3 min until responsive or EMS arrives. 2 Each 3 4 Active modafiniL (PROVIGIL) 100 mg Tablet Take 100 mg by mouth daily. 4 Active albuterol sulfate HFA 90 mcg/actuation aerosol inhaler 2 Puffs by See Admin Instructions route see administration instructions. 5 Active azithromycin (ZITHROMAX) 250 mg tablet Take 250 mg by mouth daily. Active codeine phosphate/guai fenesin (CODEINE-GUAIF ENESIN ORAL) Take by mouth every 6 hours as needed for Other (See Comment) (cough). Active cyanocobalamin 1,000 mcg Tablet Take 1 tablet by mouth every other day. 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 Max Daily Amount: 20 mg 48 Tablet 5 Active Active Problems Problem Noted [...] but unfortunately it is not offered at [facility] and he will have to go to [facility] [place]. He thinks that his insurance may not be accepted at [facility] but we will try and get [...] Encounters Date Type Department Care Team Description 01/16/[address] 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 Oncology and Hematology - [place] [address] [place] [address] Jorden Serrano MD 01/04/[address] 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 Oncology and Hematology - [place] [address] [place] [address] Chichi Lyon MD Injeciton Questions 11/07/[address] [facility] Oncology and Hematology [facility] [address] [place] [address] Jorden Serrano MD from Last 3 Months Family History Medical [...] st Contact Info) Description 02/06/2025 3:45 PM PROCTOLOGIST Office Visit [facility] Oncology and Hematology - [place] [address] [facility] [address] [place] [address] Jorden Serrano MD [address] [facility] [address] [place] [address] Health Maintenance Due Date Last Done Comments HEPATITIS B VACCINES (1 of 3 - 19+ 3-dose series) 1985 Medicare Advantage ([place]) Preventative Visit/Annual Wellness Visit 03/23/2024 INFLUENZA VACCINE [...] Associated Diagnosis Comments COMPREHENSIVE METABOLIC PANEL Routine 01/04/2025 12:28 PM CDT COMPREHENSIVE METABOLIC PANEL Routine 01/04/2025 11:46 AM CDT COMPREHENSIVE METABOLIC PANEL Routine 11/04/2024 1:51 PM CDT HX COLONOSCOPY Routine 07/02/2021 from Last 3 Months or Most Recently Relevant to Health Maintenance Results * COMPREHENSIVE METABOLIC PANEL (01/04/2025 12:28 PM CDT) Only the most recent of3 resultswithin the time period is included. Blood Jorden Serrano MD CHEMISTRY ORDERABLES Final Resu lt * HX COLONOSCOPY (07/02/2021) Abstract Provider GENERIC SURGICAL HISTORY Final Result from Last 3 Months or Most Recently Relevant to Health Maintenance Insurance [place] [place] [address] [place] [address] Care Teams Poultry Cutter Relationship Specialty Start Date End Date Kevin Meyer PA [address] [place] [address] PCP - General Physician Programmer 05/31/21
--- OUTSIDE RECORDS SUMMARY | 2025-01-16 14:04 | XMS_ITS | Encounter Summary ---
Author Organization [facility] Address Count includes the [facility] [place] [address] Care Team Providers Care Info Analyst Name Role Phone None, Provider Primary Care Provider Unavaila Kevin Perez Primary Care Provider [phone] Jorden Serrano MD Unavailable [phone] Morgan Galvan DO, George V Unavailable [phone] Min Mario MD Unavailable Sona Babin NP Unavailable [phone] Encounter Details Date Type Department Care Team (Late st Contact Info) Description 08/28/2018 Abstract SFL CONVERSION [address] [place] [address] , Generic Conversion, Social History [...] Department Care Team (Latest Contact Info) Description 01/27/2025 12:20 PM EDI COORDINATOR Hospital Encounter [facility] Interventional [place] [address] [phone] Daniela Henderson MD [address] [facility] [address] [place], [place] [phone] 01/27/2025 12:20 PM EDI COORDINATOR - 01/27/2025 12:40 PM EDI COORDINATOR Surgery [facility] Inter[facility] Management Center [address] [facility] [place] [address] [phone] Daniela Henderson MD Three [facility] [address] [place] [address] BLOCK SACROILIAC JOINT 02/08/2025 9:00 AM EDI COORDINATOR Office Visit [facility] Medical Group Multispecialty Care - [facility] [address] [facility], [address] [place] [address] Jennifer Huang APRN 3 [facility] [address] [place] [address] Scheduled Procedures Name Priority Associated Diagnoses Date/Ti ak BLOCK SACROILIAC JOINT Sacroiliitis 01/27/2025 12:20 PM EDI COORDINATOR documented as of this encounter Visit Diagnoses Not on filedocumented in this encounter Additional Health Concerns Infection Onset Date Last Indicated Resolved Time MRSA Comment:First negative 07/07/22 Second negative 07/27/23 04/08/2018 04/08/2018 08/11/2023 9:17 A M CDT COVID-19 Rule Out 05/25/2021 05/25/2021 05/25/2021 9:39 PM EDI COORDINATOR COVID-19 Rule Out 03/03/2023 03/03/2023 03/04/2023 7:03 PM EDI COORDINATOR documented as of this encounter Care Teams Info Analyst Relationship Specialty Start Date End Date None, Provider, PCP - General 01/10/20 05/27/21 Kevin Meyer PA [address] [place] [address] PCP - General PHYSICIAN BRANDING SPECIALIST 11/17/24 Jorden Serrano MD [address] [facility] [address] [place] [address] HEMATOLOGY/ONCOLOGY 11/17/24 Keny Mora Jr., DO [address] [place] [address] Physician ORTHOPAEDIC SURGERY 11/17/24 Min Mario MD 2 [facility] [address] [place] [address] UROLOGY 11/17/24 Sona Babin NP [address] [facility] 3 [place] [address] Nurse Practitioner Psych/Mental Health 11/17/24 documented as of this encounter
--- OUTSIDE RECORDS SUMMARY | 2025-01-16 14:04 | XMS_ITS | Clinical Summary ---
Author Organization [facility] Address [address] [place] [address] Care Team Providers Care Roof Panel Hanger Name Role Phone Kevin Meyer Primary Care Provider [phone] Source Comments [facility],non-owned Affiliates and Associated Physician Practices is amultiple site organization consisting of ambulatory clinics and hospital sitesin [place], [place], [place] and [place]. This disclosure is being madepursuant to the Care Everywhere program and may not contain all information available regarding this patient. Last updated 17.[facility] Allergies Active Allergy Reactions Criticality Noted Date [...] on file Legal Sex Male 4:24 AM PRECISION OPTICAL GOODS WORKER Gender Identity Not on file Sexual Orientation Not on file Last Filed Vital Signs Vital Sign Reading Time Taken Comments Blood Pressure 134/79 04/23/2022 1:34 PM PRECISION OPTICAL GOODS WORKER Pulse 62 04/23/2022 1:34 PM PRECISION OPTICAL GOODS WORKER Temperature 36.4 C (97.5 F) 04/23/2022 1:34 PM PRECISION OPTICAL GOODS WORKER Respiratory Rate 18 10/15/2021 6:45 PM CDT Oxygen Saturation 100% 04/23/2022 1:34 PM PRECISION OPTICAL GOODS WORKER Inhaled Oxygen Concentration - - Weight 94.3 kg (208 lb) 04/23/2022 1:34 PM PRECISION OPTICAL GOODS WORKER Height 182.9 cm (6') 10/15/2021 7:20 AM [...] 2016 ZOSTER VACCINE (1 of 2) 2016 DEPRESSION SCREENING 03/23/2024 MEDICARE AWV CALENDAR YEAR 2024 COVID-19 VACCINE (1 - season) 2024 INFLUENZA VACCINE (#1) 2024 , 01/09/2020, 01/03/2020, Additional history exists SCREENING FOR [...] COMPREHENSIVE METABOLIC PANEL Routine 04/23/2022 11:02 AM PRECISION OPTICAL GOODS WORKER Neuroendocrine carcinoma metastatic to liver from Last 3 Months or Most Recently Relevant to Health Maintenance Results * (ABNORMAL) COMPREHENSIVE METABOLIC PANEL (04/23/2022 11:02 AM [facility]) BUN 14 7 - 26 mg/dL 04/23/2022 11:56 AM [facility] Creatinine 0.81 0.71 - 1.16 mg/dL 04/23/2022 11:56 AM [facility] Sodium 136 136 - 145 mmol/L 04/23/2022 11:56 AM [facility] Potassium 3.9 3.5 - 4.5 mmol/L 04/23/2022 11:56 AM [facility] Chloride 102 98 - 107 mmol/L 04/23/2022 11:56 AM [facility] CO2 23 22 - 29 mmol/L 04/23/2022 11:56 AM [facility] Glucose 117(H) 70 - 115 mg/dL 04/23/2022 11:56 AM [facility] Calcium 9.1 8.4 - 10.2 mg/dL 04/23/2022 11:56 AM [facility] Protein Total 7.0 6.0 - 8.3 g/dL 04/23/2022 11:56 AM [facility] Albumin 3.8 3.4 - 5.0 g/dL 04/23/2022 11:56 AM [facility] Bilirubin Total 0.4 0.2 - 1.2 mg/dL 04/23/2022 11:56 AM [facility] Alkaline Phosphatase 112 40 - 150 U/L 04/23/2022 11:56 AM [facility] ALT 62(H) 5 - 55 U/L 04/23/2022 11:56 AM [facility] AST 31 5 - 34 U/L 04/23/2022 11:56 AM [facility] Anion Gap 15 8 - 18 04/23/2022 11:56 AM [facility] BUN/Creatinine Ratio 17 7 - 23 04/23/2022 11:56 AM [facility] Osmolality Calculated 284 270 - 300 mOsm/kg 04/23/2022 11:56 AM [facility] Albumin/Globulin Ratio 1.2 1.1 - 2.3 04/23/2022 11:56 AM PRECISION OPTICAL GOODS WORKER [facility] eGFR by CKD-EPI >90 >=90 mL/min/1.7 3 m2 04/23/2022 11:56 AM [facility] Blood BLOOD SPECIMEN / Unknown Lab Venipuncture / Unknown 04/23/2022 11:02 AM PRECISION OPTICAL GOODS WORKER 04/23/2022 11:31 AM PRECISION OPTICAL GOODS WORKER Blair Le MD LAB - CHEMISTRY ORDERABLES Final Result [facility] [address] [place] [address], [facility] [phone] from Last 3 Months or Most Recently Relevant to Health Maintenance Insurance MEDICAID - OUT OF STATE MEDICAID [place] UHC MANAGED MEDICARE ADV Care Teams Roof Panel Hanger Relationship Specialty Start Date End Date Kevin Meyer PA [address] [place] [address] PCP - General 06/28/21
--- OUTSIDE RECORDS SUMMARY | 2025-01-16 14:04 | XMS_ITS | Encounter Summary ---
Author Organization [facility] Address [facility] [place] [address] Care Team Providers Care Public Health Sanitarian Technician Name Role Phone Kevin Meyer Primary Care Provider [phone] Jorden Serrano MD Unavailable [phone] Morgan Galvan DO, George V Unavailable [phone] Min Mario MD Unavailable Sona Babin NP Unavailable [phone] Encounter Details Date Type Department Care Team (Latest Contact Info) Description 09/21/2024 Continuity Control Message Enc [facility] Multispecialty Care - [facility] 3 [facility], [address] [place] [address] [facility] Provider Pre-Op Instructions/Educat ion Social [...] doctor or pharmacy? Never 08/10/2023 [facility] Utilities Answer Date Recorded In the past 12 months has e [email or web address], gas, oil, or water Videdressing threatened to shut off services in your [...] and heating? Not hard at all 08/10/2023 [facility] of Occupat ional Health - Occupational Stress [...] time in the past 12 m [facility], were you homeless or living in a prison (including now)? No 08/10/2023 Sex and Gender [...] (Latest Contact Info) Description 01/27/2025 12:20 PM SHIPWRIGHT HELPER Hospital Encounter [facility] Interventional Pain [place] [address] [id number] Daniela Henderson MD Three [facility] [address] [place] [address] 01/27/2025 12:20 PM SHIPWRIGHT HELPER - 01/27/2025 12:40 PM SHIPWRIGHT HELPER Surgery [facility] Interventional Pain [place] [address] [id number] Daniela Henderson MD Three [facility] [address] [place] [address] BLOCK SACROILIAC JOINT 02/08/2025 9:00 AM SHIPWRIGHT HELPER Office Visit [facility] Multispecialty Care - [facility] 3 [facility], [address] [place] [address] Jennifer Huang APRN [address] [facility] [address] [place] [address] Scheduled Procedures Name Priority Associated Diagnoses Date/Ti tn BLOCK SACROILIAC JOINT Sacroiliitis 01/27/2025 12:20 PM SHIPWRIGHT HELPER documented as of this encounter Goals Goal Patient Goal Type Associated Problems Recent Progress Patient-Stated? Author Family - family caregiver with be involved in care transitions and discharge planning Lifestyle No Oscar Dietrich RN documented as of this encounter Visit Diagnoses Not on filedocumented in this encounter Care Teams Public Health Sanitarian Technician Relationship Specialty Start Date End Date Kevin Meyer PA [address] [place] [address] PCP - General PHYSICIAN COGENERATION TECHNICIAN 11/17/24 Jorden Serrano MD [address] [facility] [address] [place] [address] HEMATOLOGY/ONCOLOGY 11/17/24 Keny Mora Jr., [address] [place] [address] Physician ORTHOPAEDIC SURGERY 11/17/24 Min Mario MD 2 [facility] [address] [place] [address] UROLOGY 11/17/24 Sona Babin NP [address] [facility] 3 [place] [address] Nurse Practitioner Psych/Mental Health 11/17/24 documented as of this encounter
--- OUTSIDE RECORDS SUMMARY | 2025-01-16 14:04 | XMS_ITS | Clinical Summary ---
Author Organization [facility] Facility Address [address] [place] [address] Care Team Providers Care Fire Extinguisher Tester Name Role Phone Kevin Meyer Primary Care Provider [phone] Allergies Active Allergy Reactions Criticality Noted Date [...] 03/08/2015 Insurance Medicare Medicaid [place] Care Teams Fire Extinguisher Tester Relationship Specialty Start Date End Date Kevin Meyer PA [address] [place] [address] PCP - General Internal Medicine 10/20/18
--- OUTSIDE RECORDS SUMMARY | 2025-01-16 14:04 | XMS_ITS | Clinical Summary ---
Author Organization [facility] Address [address] [place] [address] Phone Care Team Providers Care Fuel House Attendant Name Role Phone Kevin Meyer Primary Care Provider [phone] Dawit MARISCAL MD, Courtney Unavailable [phone] Brad Bone MD Unavailable [phone] Vanda Jimenez APRN, UNION STEWARD Unavailable Min Mario MD Unavailable Allergies Active [...] Encounters Date Type Department Care Team Description 01/10/2025 Refill [facility] - [place] [address] [place] [address] Vanda Jimenez APRN, UNION STEWARD Medication Refill from Last 3 Months Immunizations Immunization Administration [...] st Contact Info) Description 02/02/2025 10:15 AM EYELET OPERATOR Office Visit [facility] UROLOGY #[address] [place] [address] Min Mario MD #[address] [address] 02/20/2025 8:30 AM EYELET OPERATOR Appointment [facility] Ultrasound 1 [facility] [place] [address] Vanda Jimenez APRN, UNION STEWARD [address] [place] [address] Discharge Disposition: Discharged to home or Selfcare 04/06/2025 8:30 AM EYELET OPERATOR Office Visit [facility] - [place] [address] [place] [address] Marisa Patrick MD 1 [place] [address] Health Maintenance Due Date Last Done Comments Hepatitis C Virus (HCV) Screening 1966 SARS-COV-2 Immunization (#1) 06/17/1971 Hepatitis B Immunization (1 of 3 - 19+ 3-dose series) 1985 Cologuard 06/17/2011 Immunochemical Fecal Occult Blood 06/17/2011 Pneumococcal Immunization (50+ years) (2 of 2 - PCV) 03/08/2016 03/08/2015 PSA Discussion 2021 Medicare Initial AWV [id number] 05/21/2022 Influenza Immunization (#1) 11/21/202412/22, 05/28/2021, 01/09/2020, Additional [...] on patient's age to complete this topic Insurance [place]ICAID [place] MEDICARE C [facility]ICA[facility] [place] Advance Directives * [...] all measures to stabilize patient. Care Teams Fuel House Attendant Relationship Specialty Start Date End Date Kevin Meyer, TABITHA [address] [place] [address] PCP - General Physician Family Living Educator 4/25/18 Merlene Pastor III, MD #[address] [place] [address] Consulting Physician Urology 10/28/21 Brad Bone MD [address] [place] [address] Consulting Physician Neurology 09/04/22 Vanda Jimenez APRN, UNION STEWARD [address] [place] [address] Nurse Practitioner Advanced Practice Nurse 07/31/22 Min Mario MD #[address] [address] Consulting Physician Urology 12/17/23
--- OUTSIDE RECORDS SUMMARY | 2025-01-16 14:04 | XMS_ITS ---
Author Organization [facility] Address [address] [place] [address] Phone Care Team Providers Care Charge Auditor Name Role Phone Kevin Meyer Primary Care Provider [phone] Dawit MARISCAL MD, Courtney Unavailable [phone] Brad Bone MD Unavailable [phone] Vanda Jimenez APRN, UPHOLSTERY PARTS SORTER Unavailable Min Mario MD Unavailable OnCserge Chronic Condition Monitoring Status:Enrolled (Active) Start date:04/20/2024 Enrollment date:04/20/2024 Related social drivers of health:Intimate Partner Violence, Social Connections, Alcohol Use, Tobacco Use, Financial Resource Strain,Depression, Stress, Physical Activity, Food Insecurity, Transportation Needs, Housing Stability, Utilities Continued Care and Services Coordination
--- OUTSIDE RECORDS SUMMARY | 2025-01-16 14:04 | XMS_ITS | Encounter Summary ---
Author Organization [facility] Address [address] [place] [address] Care Team Providers Care General Inspector Name Role Phone Kevin Meyer Primary Care Provider [phone] Encounter Details Date Type Department Care Team (Late Contact Info) Description 01/16/2025 Orders Only [facility] [address] [place] [address] Jorden Serrano MD [facility] [employer] [address] [place] [address] Benign hypertension; Malignant carcinoid tumor of [...] st Contact Info) Description 02/06/2025 3:45 PM PATTERNMAKER WOOD Office Visit [facility] Oncology and Hematology [facility] [address] [place] [address] Jorden Serrano MD [address] [employer] [address] [place] [address] documented as of this encounter Visit Diagnoses Diagnosis Benign hypertension Essential hypertension, benign 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
--- OUTSIDE RECORDS SUMMARY | 2025-01-16 14:04 | XMS_ITS | Encounter Summary ---
Author Organization [facility] Address [address] [facility] [place] [address] Phone Care Team Providers Care Leadership Program Associate Name Role Phone Kevin Meyer Primary Care Provider [phone] Dawit MARISCAL MD, Courtney Unavailable [phone] Brad Bone MD Unavailable [phone] Vanda Jimenez APRN, YEAST FERMENTATION ATTENDANT Unavailable Min Mario MD Unavailable Reason for Visit * Reason Comments Medication Refill Encounter Details Date Type Department Care Team (Late st Contact Info) Description 01/10/2025 Refill [facility] [address] [place] [address] Vanda Jimenez APRN, YEAST FERMENTATION ATTENDANT [address] [place] [address] Medication Refill Social History Tobacco Use Types [...] Telephone Encounter - Raisa Rader RN - 01/11/2025 2:21 PM CDT Amy, on prd form, calling to check on pantoprazole refill. No medication noted to be pended or approved. Patient is needing a refill. Appt scheduled with Dr. Patrick on 04/06/2025. Pantoprazole order pended. Please review and approve. Forwarding to provider pool due to Gage Jimenez WASHER AND CAPPER MACHINE OPERATOR is no longer with office. documented in this encounter Plan of Treatment Upcoming Encounters Date Type Department Care Team (Late st Contact Info) Description 02/02/2025 10:15 AM INDUSTRIAL HIRE SALES ASSISTANT Office Visit [facility] UROLOGY #[address] [place] [address] Min Mario MD #[address] [address] 02/20/2025 8:30 AM INDUSTRIAL HIRE SALES ASSISTANT Appointment [facility] Ultrasound [address] [place] [address] Vanda Jimenez APRN, [facility] [address] [place] [address] Discharge Disposition: Discharged to home or Selfcare 04/06/2025 8:30 AM INDUSTRIAL HIRE SALES ASSISTANT Office [facility] - [place] [address] [place] [address] Marisa Patrick MD [address] [place] [address] documented as of this encounter Visit Diagnoses Not on filedocumented in this encounter Care Teams Leadership Program Associate Relationship Specialty Start Date End Date Kevin Meyer, [facility] [address] [place] [address] PCP - General Physician Implementation Manager 07/15/17 Merlene Pastor III, MD [address] [place] [address] Consulting Physician Urology 10/28/21 Brad Bone MD [address] [place] [address] Consulting Physician Neurology 09/04/22 Vanda Jimenez APRN, YEAST FERMENTATION ATTENDANT [address] [place] [address] Nurse Practitioner Advanced Practice Nurse 07/31/22 Min Mario MD #[address] [address] Consulting Physician Urology 12/17/23 documented as of this encounter
--- OUTSIDE RECORDS SUMMARY | 2025-01-16 14:04 | XMS_ITS | Encounter Summary ---
Author Organization [facility] Address [address] [place] [address] Care Team Providers Care Underwater Hunter Name Role Phone Kevin Meyer Primary Care Provider [phone] Kevin Meyer Unavailable [phone] Benja Esteban MD Unavailable [phone] Samy Bravo MD PhD Unavailable [phone] Vivian Horn RN Unavailable [phone] Encounter Details Date Type Department Care Team (Late st Contact Info) Description 09/04/2020 Telephone [facility] [address] [place] [address] Dorothy Case, RT Social History [...] declined 04/03/2020 Social Connection and Isolation Panel Answer Date Recorded In a typical week, how many times do you talk on the phone with family, friends, or neighbors? Patient declined 04/03/2020 How often do you get togethe r with friends or relatives? Patient declined 04/03/2020 How often do you attend hindu or yazidism serv ices? Patient declined 04/03/2020 [...] Date Recorded PHQ-2 Total Score 4 04/03/2020 [facility] - Occupational Stress Questionnaire Answer Date Recorded [...] place to sleep or slept in a fci (including now)? 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 SOFTWARE DEVELOPER INTERN Gender Identity Male 03/26/2021 11:53 AM SOFTWARE DEVELOPER INTERN Sexual Orientation Choose not to disclose 2021 11:53 AM SOFTWARE DEVELOPER INTERN Occupation Industry Job Start Date Job End Date disabled Not on file Not on file Not on file documented as of this encounter Plan of Treatment Not on file documented as of this encounter Visit Diagnoses Not on filedocumented in this encounter Care Teams Underwater Hunter Relationship Specialty Start Date End Date Kevin Meyer PA [address] [place] [address] PCP - General 03/23/19 Kevin Meyer PA [address] [place] [address] 03/23/19 Benja Esteban MD [address] [place] [address] Medical Oncologist/Powder Nipper Hematology and Oncology 02/28/20 Samy Bravo MD PhD [address] [place] [address] Resident Psychiatry 05/31/20 09/17/20 Vivian Horn, RN [address] [address] SHOP Outpatient Fire Battalion Chief 02/01/21 02/28/21 documented as of this encounter
--- OUTSIDE RECORDS SUMMARY | 2025-01-16 14:04 | XMS_ITS | Clinical Summary ---
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/2020 Overview (12/13/2020): Added automatically from request for surgery [id number] Malignant carcinoid tumor of the ileum Stimulant use disorder 05/31/2020 Severe alcohol use disorder 05/31/2020 PTSD (post-traumatic stress disorder) 05/31/2020 Chronic bilateral low back pain without sciatica 04/07/2020 Assessment & Plan (05/04/2020 12:54 PM BAILIFF): - flexeril 10mg TID PRN - Liberty 10mg q4 PRN - lidocaine patch daily - avoid IV ketorelac and NSAIDs with starting lithium - heating packs Assessment & Plan (05/03/2020 9:56 AM BAILIFF): - flexeril 10mg TID PRN - Liberty 10mg q4 PRN - lidocaine patch daily - avoid IV ketorelac and NSAIDs with starting lithium - heating packs Assessment & Plan (05/02/2020 11:56 AM BAILIFF): - flexeril 10mg TID PRN - Liberty 10mg q4 PRN - lidocaine patch daily - avoid IV ketorelac and NSAIDs with starting lithium - heating packs Assessment & Plan (05/01/2020 10:58 AM BAILIFF): - flexeril 10mg TID PRN - NORCO 10mg q4 PRN - lidocaine patch daily - avoid IV ketorelac and NSAIDs with starting lithium - heating pads Assessment & Plan (04/30/2020 12:17 PM BAILIFF): - flexeril 10mg TID PRN - NORCO 10mg q4 PRN - lidocaine patch daily - avoid IV ketorelac and NSAIDs with starting lithium - heating pads Assessment & Plan (04/28/2020 8:01 AM BAILIFF): - flexeril 10mg TID PRN - NORCO 10mg q4 PRN - lidocaine patch daily - avoid IV ketorelac and NSAIDs with starting lithium - heating pads Assessment & Plan (04/27/2020 8:47 AM BAILIFF): - flexeril 10mg TID PRN - NORCO 10mg q4 PRN - lidocaine patch daily - avoid IV ketorelac and NSAIDs given ADILENE - heating pads Assessment & Plan (04/26/2020 10:11 AM BAILIFF): - flexeril 10mg TID PRN - NORCO 10mg q4 PRN - lidocaine patch daily - avoid IV ketorelac and NSAIDs given ADILENE - heating pads Assessment & Plan (04/25/2020 9:45 AM BAILIFF): - flexeril 10mg TID PRN - NORCO 10mg q4 PRN - lidocaine patch daily - avoid IV ketorelac and NSAIDs given ADILENE - heating pads Assessment & Plan (04/24/2020 9:49 AM BAILIFF): - flexeril 10mg TID PRN - NORCO 10mg q4 PRN - lidocaine patch daily - avoid IV ketorelac and NSAIDs given ADILENE - heating pads Assessment & Plan (04/23/2020 10:21 AM BAILIFF): - flexeril 10mg TID PRN - NORCO 10mg q4 PRN - lidocaine patch daily - avoid IV ketorelac and NSAIDs given ADILENE - heating pads Assessment & Plan (04/21/2020 8:38 AM BAILIFF): - flexeril 10mg TID PRN - NORCO 10mg q4 PRN - lidocaine patch daily - avoid IV ketorelac and NSAIDs given ADILENE - heating pads Assessment & Plan (04/20/2020 12:05 PM BAILIFF): - flexeril 10mg TID PRN - NORCO 10mg q4 PRN - lidocaine patch daily - avoid IV ketorelac and NSAIDs given ADILENE - heating pads Assessment & Plan (04/19/2020 9:46 AM BAILIFF): - flexeril 10mg TID PRN - NORCO 10mg q4 PRN - lidocaine patch daily - avoid IV ketorelac and NSAIDs given ADILENE - heating pads Assessment & Plan (04/18/2020 10:09 AM BAILIFF): - flexeril 10mg TID PRN - NORCO 10mg q4 PRN - lidocaine patch daily - avoid IV ketorelac and NSAIDs given ADILENE - heating pads Assessment & Plan (04/17/2020 9:31 AM BAILIFF): - flexeril 10mg TID PRN - NORCO 10mg q4 PRN - lidocaine patch daily - avoid IV ketorelac and NSAIDs given ADILENE - heating pads Assessment & Plan (04/16/2020 11:51 AM BAILIFF): - flexeril 10mg TID PRN - NORCO 10mg q4 PRN - lidocaine patch daily - avoid IV ketorelac and NSAIDs given ADILENE - heating pads Assessment & Plan (04/14/2020 9:57 AM BAILIFF): - flexeril 10mg TID PRN - NORCO 10mg q4 PRN - lidocaine patch daily - avoid IV ketorelac and NSAIDs given ADILENE - heating pads Assessment & Plan (04/10/2020 10:04 PM BAILIFF): - flexeril 10mg TID PRN - NORCO 10mg q4 PRN - lidocaine patch daily - avoid IV ketorelac and NSAIDs given ADILENE - heating pads Assessment & Plan (04/08/2020 3:23 PM BAILIFF): Patient endorsing exacerbation of chronic back pain [...] -PT Assessment & Plan (04/07/2020 6:23 AM BAILIFF): Patient endorsing exacerbation of chronic back pain and left ankle pain (had previous traumatic injury, required surgery). No other red flag symptoms/signs. Reports he has received injections in the past -Continue PRN norco, flexeril -Lidocaine patch to back -PT Depressive disorder 04/03/2020 Assessment & Plan (05/04/2020 12:54 PM BAILIFF): 54yo M with reported history of bipolar [...] more bright. Plan to discharge patient 05/04. [place] augmentation started with moderate improvements seen in depressive symptoms with ECT, titrated to 300 mg BID with level 0.6. - Continue OLANZapine, 20 mg, oral, Nightly, for depression - Continue Venlafaxine XR 150 mg PO daily, for depression - Continue lithium to 300 mg BID - [place] level 0.6 on 05/03 - This is [...] 05/04 Assessment & Plan (05/03/2020 9:56 AM BAILIFF): 54yo M with reported history of bipolar [...] more bright. Plan to discharge patient 05/04. [place] augmentation started with moderate improvements seen in depressive symptoms with ECT, titrated to 300 mg BID with level 0.6. - Continue OLANZapine, 20 mg, oral, Nightly, for depression - Continue Venlafaxine XR 150 mg PO daily, for depression - Continue lithium to 300 mg BID - [place] level 0.6 on 05/03 - This is [...] permission) Assessment & Plan (05/02/2020 11:56 AM BAILIFF): 54yo M with reported history of bipolar [...] permission) Assessment & Plan (05/01/2020 10:58 AM BAILIFF): 54yo M with reported history of bipolar [...] family Assessment & Plan (04/30/2020 12:17 PM BAILIFF): 54yo M with reported history of bipolar [...] family Assessment & Plan (04/28/2020 8:02 AM BAILIFF): 54yo M with reported history of bipolar [...] depression Assessment & Plan (04/27/2020 8:47 AM BAILIFF): 54yo M with reported history of bipolar [...] depression Assessment & Plan (04/26/2020 10:11 AM BAILIFF): 54yo M with reported history of bipolar [...] depression Assessment & Plan (04/25/2020 9:47 AM BAILIFF): 54yo M with reported history of bipolar [...] depression Assessment & Plan (04/24/2020 9:48 AM BAILIFF): 54yo M with reported history of bipolar [...] depression Assessment & Plan (04/23/2020 10:21 AM BAILIFF): 54yo M with reported history of bipolar [...] depression Assessment & Plan (04/21/2020 8:36 AM BAILIFF): 54yo M with reported history of bipolar [...] depression Assessment & Plan (04/20/2020 12:05 PM BAILIFF): 54yo M with reported history of bipolar [...] depression Assessment & Plan (04/19/2020 9:48 AM BAILIFF): 54yo M with reported history of bipolar [...] depression Assessment & Plan (04/18/2020 10:08 AM BAILIFF): 54yo M with reported history of bipolar [...] depression Assessment & Plan (04/17/2020 9:32 AM BAILIFF): 54yo M with reported history of bipolar [...] depression Assessment & Plan (04/16/2020 11:49 AM BAILIFF): 54yo M with reported history of bipolar [...] depression Assessment & Plan (04/14/2020 9:56 AM BAILIFF): 54yo M with reported history of bipolar [...] depression Assessment & Plan (04/13/2020 9:46 AM BAILIFF): 54yo M with reported history of bipolar [...] for ECT by cardiology, no diagnosis of ischemia/MT, no focal wall movement abnormalities on echo, [...] procedure Assessment & Plan (04/10/2020 3:25 PM BAILIFF): Presented to ED 04/02 with suicidal ideation, depression. Initially admitted to psychiatry for medication adjustment, received ECT x1 04/06 -Continue current meds: lexapro 5, effexor 112.5, olanzapine 20mg QHS - If COVID test is negative, transfer to Psychiatry floor. Assessment & Plan (04/08/2020 3:24 PM BAILIFF): Presented to ED 04/02 with suicidal ideation, depression. Initially admitted to psychiatry for medication adjustment, received ECT x1 04/06 -Psych consulted upon transfer to medicine but are following only peripherally over the weekend -Continue current meds: lexapro 5, effexor 112.5, olanzapine 20mg QHS -Psychiatry recommending discontinuing suicide precautions with 1:1 sitter Assessment & Plan (04/07/2020 6:14 AM BAILIFF): Presented to ED 04/02 with suicidal ideation, depression. Initially admitted to psychiatry for medication adjustment, received ECT x1 04/06 -Psych c/s upon transfer -Continue current meds: lexapro 5, effexor 112.5, olanzapine 20mg QHS -Suicide precautions, 1:1 sitter Assessment & Plan (04/12/2020 9:11 AM BAILIFF): 54yo M with reported history of bipolar [...] for ECT by cardiology, no diagnosis of ischemia/MT, no focal wall movement abnormalities on echo, [...] midnight Assessment & Plan (04/03/2020 2:04 PM BAILIFF): 54yo M with reported history of bipolar [...] interested in ECT, will facilitate transfer to [facility] to facilitate ECT consult Uptitrate SSRI and otherwise continue home depakote and zyprexa (pt reports taking these medications daily for past several yrs) PRNs agitation and comfort Milieu, supportive, and group therapy Apprec intervention Obtain collateral Full code Dispo: home with GERD (gastroesophageal reflux disease) Assessment & Plan (05/04/2020 12:54 PM BAILIFF): Patient has a long history of GERD. - Protonix 40 mg daily Assessment & Plan (05/03/2020 9:56 AM BAILIFF): Patient has a long history of GERD. - Protonix 40 mg daily Assessment & Plan (05/02/2020 11:57 AM BAILIFF): Patient has a long history of GERD. - Protonix 40 mg daily Assessment & Plan (05/01/2020 10:58 AM BAILIFF): Patient has a long history of GERD. - Protonix 40 mg daily Assessment & Plan (04/30/2020 12:17 PM BAILIFF): Patient has a long history of GERD. - Protonix 40 mg daily Assessment & Plan (04/28/2020 8:00 AM BAILIFF): Patient has a long history of GERD. -Protonix 40 mg daily Assessment & Plan (04/27/2020 8:47 AM BAILIFF): Patient has a long history of GERD. -Protonix 40 mg daily Assessment & Plan (04/26/2020 10:11 AM BAILIFF): Patient has a long history of GERD. -Protonix 40 mg daily Assessment & Plan (04/25/2020 9:45 AM BAILIFF): Patient has a long history of GERD. -Protonix 40 mg daily Assessment & Plan (04/24/2020 9:48 AM BAILIFF): Patient has a long history of GERD. -Protonix 40 mg daily Assessment & Plan (04/23/2020 10:21 AM BAILIFF): Patient has a long history of GERD. -Protonix 40 mg daily Assessment & Plan (04/21/2020 8:37 AM BAILIFF): Patient has a long history of GERD. -Protonix 40 mg daily Assessment & Plan (04/20/2020 12:05 PM BAILIFF): Patient has a long history of GERD. -Protonix 40 mg daily Assessment & Plan (04/19/2020 9:46 AM BAILIFF): Patient has a long history of GERD. -Protonix 40 mg daily Assessment & Plan (04/18/2020 10:09 AM BAILIFF): Patient has a long history of GERD. -Protonix 40 mg daily Assessment & Plan (04/17/2020 9:31 AM BAILIFF): Patient has a long history of GERD. -Protonix 40 mg daily Assessment & Plan (04/16/2020 11:51 AM BAILIFF): Patient has a long history of GERD. -Protonix 40 mg daily Assessment & Plan (04/14/2020 9:56 AM BAILIFF): Patient has a long history of GERD. -Protonix 40 mg daily Assessment & Plan (04/10/2020 3:25 PM BAILIFF): Continue pantoprazole Assessment & Plan (04/08/2020 3:17 PM BAILIFF): Continue pantoprazole Assessment & Plan (04/07/2020 6:15 AM BAILIFF): Continue pantoprazole Assessment & Plan (04/03/2020 5:54 PM BAILIFF): Patient has a long history of GERD. -Protonix 40 mg daily Hypothyroidism 04/03/2020 Assessment & Plan (05/04/2020 12:54 PM BAILIFF): Patient carries a diagnosis of hypothyroidism for several years. He is currently treated on levothyroxine 75 mcg daily. - Repeat TFT tests in 6 weeks - continue levothyroxine 75 mcg daily Assessment & Plan (05/03/2020 9:56 AM BAILIFF): Patient carries a diagnosis of hypothyroidism for several years. He is currently treated on levothyroxine 75 mcg daily. - Repeat TFT tests in 6 weeks - continue levothyroxine 75 mcg daily Assessment & Plan (05/02/2020 11:57 AM BAILIFF): Patient carries a diagnosis of hyperthyroidism for several years. He is currently treated on levothyroxine 75 mcg daily. - Repeat TFT tests in 6 weeks - continue levothyroxine 75 mcg daily Assessment & Plan (05/01/2020 10:58 AM BAILIFF): Patient carries a diagnosis of hyperthyroidism for several years. He is currently treated on levothyroxine 75 mcg daily. - Repeat TFT tests in 6 weeks - continue levothyroxine 75 mcg daily Assessment & Plan (04/30/2020 12:17 PM BAILIFF): Patient carries a diagnosis of hyperthyroidism for several years. He is currently treated on levothyroxine 75 mcg daily. - Repeat TFT tests in 6 weeks - continue levothyroxine 75 mcg daily Assessment & Plan (04/28/2020 8:00 AM BAILIFF): Patient carries a diagnosis of hyperthyroidism for several years. He is currently treated on levothyroxine 75 mcg daily. - Repeat TFT tests in 6 weeks - continue levothyroxine 75 mcg daily Assessment & Plan (04/27/2020 8:47 AM BAILIFF): Patient carries a diagnosis of hyperthyroidism for several years. He is currently treated on levothyroxine 75 mcg daily. - Repeat TFT tests in 6 weeks - continue levothyroxine 75 mcg daily Assessment & Plan (04/26/2020 10:11 AM BAILIFF): Patient carries a diagnosis of hyperthyroidism for several years. He is currently treated on levothyroxine 75 mcg daily. - Repeat TFT tests in 6 weeks - continue levothyroxine 75 mcg daily Assessment & Plan (04/25/2020 9:45 AM BAILIFF): Patient carries a diagnosis of hyperthyroidism for several years. He is currently treated on levothyroxine 75 mcg daily. - Repeat TFT tests in 6 weeks - continue levothyroxine 75 mcg daily Assessment & Plan (04/24/2020 9:48 AM BAILIFF): Patient carries a diagnosis of hyperthyroidism for several years. He is currently treated on levothyroxine 75 mcg daily. - Repeat TFT tests in 6 weeks - continue levothyroxine 75 mcg daily Assessment & Plan (04/23/2020 10:21 AM BAILIFF): Patient carries a diagnosis of hyperthyroidism for several years. He is currently treated on levothyroxine 75 mcg daily. - Repeat TFT tests in 6 weeks - continue levothyroxine 75 mcg daily Assessment & Plan (04/21/2020 8:37 AM BAILIFF): Patient carries a diagnosis of hyperthyroidism for several years. He is currently treated on levothyroxine 75 mcg daily. - Repeat TFT tests in 6 weeks - continue levothyroxine 75 mcg daily Assessment & Plan (04/20/2020 12:05 PM BAILIFF): Patient carries a diagnosis of hyperthyroidism for several years. He is currently treated on levothyroxine 75 mcg daily. - Repeat TFT tests in 6 weeks - continue levothyroxine 75 mcg daily Assessment & Plan (04/19/2020 9:46 AM BAILIFF): Patient carries a diagnosis of hyperthyroidism for several years. He is currently treated on levothyroxine 75 mcg daily. - Repeat TFT tests in 6 weeks - continue levothyroxine 75 mcg daily Assessment & Plan (04/18/2020 10:09 AM BAILIFF): Patient carries a diagnosis of hyperthyroidism for several years. He is currently treated on levothyroxine 75 mcg daily. - Repeat TFT tests in 6 weeks - continue levothyroxine 75 mcg daily Assessment & Plan (04/17/2020 9:31 AM BAILIFF): Patient carries a diagnosis of hyperthyroidism for several years. He is currently treated on levothyroxine 75 mcg daily. - Repeat TFT tests in 6 weeks - continue levothyroxine 75 mcg daily Assessment & Plan (04/16/2020 11:51 AM BAILIFF): Patient carries a diagnosis of hyperthyroidism for several years. He is currently treated on levothyroxine 75 mcg daily. - Repeat TFT tests in 6 weeks - continue levothyroxine 75 mcg daily Assessment & Plan (04/14/2020 9:57 AM BAILIFF): Patient carries a diagnosis of hyperthyroidism for several years. He is currently treated on levothyroxine 75 mcg daily. - Repeat TFT tests in 6 weeks - continue levothyroxine 75 mcg daily Assessment & Plan (04/10/2020 3:25 PM BAILIFF): 04/02: TSH 6.49, T4 WNL at 1.38 Continue synthroid 75mcg; repeat TFTs 6-8 weeks Assessment & Plan (04/08/2020 3:17 PM BAILIFF): 04/02: TSH 6.49, T4 WNL at 1.38 Continue synthroid 75mcg; repeat TFTs 6-8 weeks Assessment & Plan (04/07/2020 6:16 AM BAILIFF): 04/02: TSH 6.49, T4 WNL at 1.38 Continue synthroid 75mcg; repeat TFTs 6-8 weeks Assessment & Plan (04/10/2020 9:35 PM BAILIFF): Patient carries a diagnosis of hyperthyroidism for several years. He is currently treated on levothyroxine 75 mcg daily. - Repeat TFT tests in 6 weeks - continue levothyroxine 75 mcg daily Hyperlipemia 04/03/2020 Assessment & Plan (05/04/2020 12:55 PM BAILIFF): Has a stated history of hyperlipidemia has been stably treated with atorvastatin 40 mg daily for many years. Patient's LDL low on lipid panel. Notable elevated triglycerides but not fasting sample. - atorvastatin 40 mg daily - fenofibrate 145mg daily Assessment & Plan (05/03/2020 9:56 AM BAILIFF): Has a stated history of hyperlipidemia has been stably treated with atorvastatin 40 mg daily for many years. Patient's LDL low on lipid panel. Notable elevated triglycerides but not fasting sample. - atorvastatin 40 mg daily - fenofibrate 145mg daily Assessment & Plan (05/02/2020 11:57 AM BAILIFF): Has a stated history of hyperlipidemia has been stably treated with atorvastatin 40 mg daily for many years. Patient's LDL low on lipid panel. Notable elevated triglycerides but not fasting sample. - atorvastatin 40 mg daily - fenofibrate 145mg daily Assessment & Plan (05/01/2020 10:58 AM BAILIFF): Has a stated history of hyperlipidemia has been stably treated with atorvastatin 40 mg daily for many years. Patient's LDL low on lipid panel. Notable elevated triglycerides but not fasting sample. - atorvastatin 40 mg daily - tricor 145mg daily Assessment & Plan (04/30/2020 12:17 PM BAILIFF): Has a stated history of hyperlipidemia has been stably treated with atorvastatin 40 mg daily for many years. Patient's LDL low on lipid panel. Notable elevated triglycerides but not fasting sample. - atorvastatin 40 mg daily - tricor 145mg daily Assessment & Plan (04/28/2020 8:01 AM BAILIFF): Has a stated history of hyperlipidemia has been stably treated with atorvastatin 40 mg daily for many years. Patient's LDL low on lipid panel. Notable elevated triglycerides but not fasting sample. - atorvastatin 40 mg daily - tricor 145mg daily Assessment & Plan (04/27/2020 8:47 AM BAILIFF): Has a stated history of hyperlipidemia has been stably treated with atorvastatin 40 mg daily for many years. Patient's LDL low on lipid panel. Notable elevated triglycerides but not fasting sample. - atorvastatin 40 mg daily - tricor 145mg daily Assessment & Plan (04/26/2020 10:11 AM BAILIFF): Has a stated history of hyperlipidemia has been stably treated with atorvastatin 40 mg daily for many years. Patient's LDL low on lipid panel. Notable elevated triglycerides but not fasting sample. - atorvastatin 40 mg daily - tricor 145mg daily Assessment & Plan (04/25/2020 9:45 AM BAILIFF): Has a stated history of hyperlipidemia has [...] daily Assessment & Plan (04/24/2020 9:48 AM BAILIFF): Has a stated history of hyperlipidemia has [...] daily Assessment & Plan (04/23/2020 10:21 AM BAILIFF): Has a stated history of hyperlipidemia has [...] daily Assessment & Plan (04/21/2020 8:38 AM BAILIFF): Has a stated history of hyperlipidemia has [...] daily Assessment & Plan (04/20/2020 12:05 PM BAILIFF): Has a stated history of hyperlipidemia has [...] daily Assessment & Plan (04/19/2020 9:46 AM BAILIFF): Has a stated history of hyperlipidemia has [...] daily Assessment & Plan (04/18/2020 10:09 AM BAILIFF): Has a stated history of hyperlipidemia has [...] daily Assessment & Plan (04/17/2020 9:31 AM BAILIFF): Has a stated history of hyperlipidemia has [...] daily Assessment & Plan (04/16/2020 11:51 AM BAILIFF): Has a stated history of hyperlipidemia has [...] daily Assessment & Plan (04/14/2020 9:56 AM BAILIFF): Has a stated history of hyperlipidemia has [...] daily Assessment & Plan (04/13/2020 9:46 AM BAILIFF): Has a stated history of hyperlipidemia has [...] daily Assessment & Plan (04/10/2020 3:25 PM BAILIFF): Continue atorvastatin 40 Assessment & Plan (04/08/2020 3:17 PM BAILIFF): Continue atorvastatin 40 Assessment & Plan (04/07/2020 6:15 AM BAILIFF): Continue atorvastatin 40 Assessment & Plan (04/12/2020 9:03 AM BAILIFF): Has a stated history of hyperlipidemia has [...] (08/31/2018): Added automatically from request for surgery [id number] Assessment & Plan (09/06/2018 12:49 PM CDT): [...] 04/10/2020 Assessment & Plan (05/04/2020 12:55 PM BAILIFF): Cr 1.3 -> 1.22 resolving. Baseline <1. - encourage fluids - avoid nephrotoxic meds Assessment & Plan (05/03/2020 9:56 AM BAILIFF): Cr 1.3 -> 1.22 resolving. Baseline <1. - encourage fluids - avoid nephrotoxic meds Assessment & Plan (05/02/2020 11:57 AM BAILIFF): Cr 1.3 -> 1.22 resolving. Baseline <1. - encourage fluids - avoid nephrotoxic meds Assessment & Plan (05/01/2020 10:58 AM BAILIFF): Cr 1.3 -> 1.22 resolving. Baseline <1. - encourage fluids - avoid nephrotoxic meds Assessment & Plan (04/19/2020 9:46 AM BAILIFF): Cr 1.3 -> 1.22 resolving. Baseline <1. - encourage fluids - avoid nephrotoxic meds Assessment & Plan (04/18/2020 10:09 AM BAILIFF): Cr 1.3 -> 1.22 resolving. Baseline <1. - encourage fluids - avoid nephrotoxic meds Assessment & Plan (04/16/2020 11:51 AM BAILIFF): Cr 1.3 -> 1.22 resolving. Baseline <1. - encourage fluids - avoid nephrotoxic meds Assessment & Plan (04/14/2020 9:57 AM BAILIFF): Cr 1.3 -> 1.22 resolving. Baseline <1. - encourage fluids - avoid nephrotoxic meds Assessment & Plan (04/13/2020 9:47 AM BAILIFF): Cr 1.3 -> 1.22 resolving. Baseline <1. - encourage fluids - avoid nephrotoxic meds Assessment & Plan (04/12/2020 9:04 AM BAILIFF): Cr 1.3 -> 1.22 resolving. Baseline <1. - encourage fluids - avoid nephrotoxic meds Diarrhea 04/10/2020 04/20/2020 Assessment & Plan (05/04/2020 12:55 PM BAILIFF): Patient recently had constipation, was treated with BID miralax and senna- docusate. Was having diarrhea last week so scheduled bowel regimen discontinued. - discontinued daily senna-docusate - miralax PRN Assessment & Plan (05/03/2020 9:56 AM BAILIFF): Patient recently had constipation, was treated with BID miralax and senna- docusate. Was having diarrhea last week so scheduled bowel regimen discontinued. - discontinued daily senna-docusate - miralax PRN Assessment & Plan (05/01/2020 10:59 AM BAILIFF): Patient recently had constipation, was treated with BID miralax and senna- docusate. Was having diarrhea last week so scheduled bowel regimen discontinued. - discontinued daily senna-docusate - miralax PRN Assessment & Plan (04/19/2020 9:47 AM BAILIFF): Patient recently had constipation, was treated with BID miralax and senna- docusate. Was having diarrhea last week so scheduled bowel regimen discontinued. - discontinued daily senna-docusate - miralax PRN Assessment & Plan (04/16/2020 11:52 AM BAILIFF): Patient recently had constipation, was treated with BID miralax and senna- docusate. Was having diarrhea last week so scheduled bowel regimen discontinued. - discontinue daily senna-docusate - miralax PRN Assessment & Plan (04/14/2020 9:57 AM BAILIFF): Patient recently had constipation, was treated with BID miralax and senna- docusate. Endorsing nonbloody diarrhea for last 2 days. - discontinue daily senna-docusate - miralax PRN Assessment & Plan (04/10/2020 10:09 PM BAILIFF): Patient recently had constipation, was treated with BID miralax and senna- docusate. Endorsing nonbloody diarrhea for last 2 days. - discontinue daily senna-docusate - miralax PRN Ventral hernia without obstr uction or gangrene 08/31/2018 04/20/2020 Overview (08/31/2018): Added automatically from request for surgery [id number] Assessment & Plan (09/06/2018 12:51 PM CDT): [...] week 02/01/2021 How often do you attend [facility] or pentecostal services? More than 4 times per year 02/01/2021 Do you belong to any clubs o r organizations such as islam groups, unions, fraternal or athletic groups, or [...] Date Recorded PHQ-2 Total Score 4 04/03/2020 [facility] ional [facility] - Occupational Stress [...] on file Legal Sex Male 3:25 AM BAILIFF Gender Identity Male 03/26/2021 11:53 AM BAILIFF Sexual Orientation Choose not to disclose 2021 11:53 AM BAILIFF Occupation Industry Job Start Date Job End Date disabled Not on file Not on file Not on file Obstetrics History Last Filed Vital Signs Vital Sign Reading Time Taken Comments Blood Pressure 126/74 04/06/2024 9:02 AM BAILIFF Pulse 68 04/06/2024 9:02 AM BAILIFF Temperature 36.2 C (97.1 F) 04/06/2024 9:02 AM BAILIFF Respiratory Rate 16 03/11/2024 4:45 PM BAILIFF Oxygen Saturation 95% 04/06/2024 9:02 AM BAILIFF Inhaled Oxygen Concentration - - Weight 97.3 kg (214 lb 9.6 oz) 04/06/2024 9:02 A M BAILIFF Height 182.9 cm (6') 04/06/2024 9:02 AM BAILIFF Body Mass Index 29.1 04/06/2024 9:02 AM BAILIFF Plan of Treatment Health Maintenance Due Date [...] 10/2020, 08/28/2020 Medical Devices Implanted Type Area Doweling Machine Operator Device Identifier Shelf Expiration Date Model / Serial / Lot [employer]/C R [employer] [id number] Ventralight St Sepra 4.5in Uncoated Monofilament Lightweight - [id number] Implanted:Qty: 1 on 09/09/2018 by Xavier Aviles MD at [facility] N/A: Abdomen [employer] Inc/C R Bard 12/19/2019 [id number] / / [id number] ClarityRay [id number] Mini Ignite Power Mix Injectable Graft 4ml Synthetic Tissue - [id number] - [id number] Implanted:Qty: 1 on 01/29/2021 by Don Kevin MD at [facility] ClarityRay 07/08/2023 [id number] / [id number] / [employer] [id number] Medline Unite 7mm 6.5mm 80mm 16mm Cannulated Color Coded Headless - [id number] Implanted:Qty: 1 on 01/29/2021 by Don Kevin MD at [facility] Left: Foot [employer] [id number] / / Medline [employer] [id number] Medline Unite 6.5mm 90mm 16mm Cannulated Color Coded Headless - [id number] Implanted:Qty: 1 on 01/29/2021 by Don Kevin MD at [facility] Left: Foot [employer] [id number] / / [employer] [id number] Screw Bone L50mm Od4.5mm Foot Ankle Cannulated Color Coded Osteotomy - [id number] Implanted:Qty: 1 on 01/29/2021 by Don Kevin MD at [facility] Left: Foot [employer] [id number] / / 20x20 Nitnol Staple Implanted:Qty: 1 on 01/29/2021 by Don Kevin MD at [facility] Left: Foot [employer] Description:[id number] [employer] [id number] Bit 3.3mm Drill Cannulated Ao Quick Connect Color Coded - [id number] Implanted:Qty: 1 on 01/29/2021 by Don Kevin MD at [facility] Left: Foot [employer] [id number] / / Procedures Procedure Name Priority Date/Time Associated Diagnosis Comments PSA SCREEN Routine 12/20/2019 2:31 PM CDT COLONOSCOPY 11/18/2017 7:41 AM CDT from Last 3 Months or Most Recently Relevant to Health Maintenance Results * PSA screen (12/20/2019 2:31 PM CDT) PSA-Total 0.53 <=3.90 ng/mL [facility] ([place]) Comment: Interpretive Data AGE SEX REFERENCE INTERVAL 0 minutes-150 years Female None 0 minutes-49 years Male None 50-59 years Male 0-3.90 60-69 years Male 0-5.40 70-79 years Male 0-6.20 80-150 years Male 0-6.20 Current interpretive data last revised 2018. Testing performed by: [facility], [address] [place] [address], [place]., [address] Blood specimen (specimen) 12/20/2019 2:31 PM CDT 12/20/2019 6:54 PM CDT us Raoul Best MD LAB BLOOD ORDERABLES Final Re sult [facility]Y ELSA ([place]) 1 [facility] [place] [address] * COLONOSCOPY (11/18/2017 7:41 AM CDT) Anatomical Region Laterality Modality Other Narrative Procedure Note Alexander Pitts MD - 11/18/2017 7:41 AM CDT [facility] Patient Name: Baljeet Herman Procedure Date: 11/18/2017 7:41 AM Date of : 1965 Admit Type: Outpatient Age: 52 Gender: Male Attending MD: Alexander Pitts MD Room: [facility] ENDOSCOPY ROOM 2 Note Status: Finalized [...] passed under direct vision.The Pediatric Colonoscope PCF-H190L [id number] was introduced through the anus and advanced [...] malignant neoplasm of largeintestine CPT copyright 2017 [employer]. All rights reserved. The codes documented in this report are preliminary and upon lens edge grinder machine reviewmay be revised to meet current compliance requirements. Recognized by the [employer] for promoting quality in endoscopy Alexander Pitts MD ENDOSCOPY PROCEDURES Final Result from Last 3 Months or Most Recently Relevant to Health Maintenance Insurance MEDICARE IDTN IDPA [facility] MEDICARE ADVANTAGE [facility] MEDICARE ADVANTAGE IDPA Advance Directives For more information, please contact: [phone] Documents on File Type Date Recorded Patient Director [employer] Expl anation ADVANCE DIRECTIVE 03/10/2019 8:47 AM [employer] Director-Medical * Full Code (Latest Code Status on [...] 9:14 AM 05/11/2020 5:01 AM Care Teams Director Nicu Relationship Specialty Start Date End Date Kevin Meyer PA [address] [place] [address] PCP - General 03/23/19 Kevin Meyer PA [address] [place] [address] 03/23/19 Benja Esteban MD [address] [place] [address] Medical Oncologist/Senior Fund Accountant Hematology and Oncology 02/28/20
--- OUTSIDE RECORDS SUMMARY | 2025-01-16 14:04 | XMS_ITS | Encounter Summary ---
Author Organization [facility] Address [address] [facility] [place] [address] Phone Care Team Providers Care Production Sampler Name Role Phone Kevin Meyer Primary Care Provider [phone] Amy Allen APRN, DRY CAN TENDER Unavailable + [phone] Dawit MARISCAL MD, Courtney Unavailable [phone] Brad Bone MD Unavailable [phone] Vanda Jimenez APRN, DRY CAN TENDER Unavailable Min Mario MD Unavailable Encounter Details Date Type Department Care Team (Latest Contact Info) Description 02/25/2023 [facility] [address] [place] [address] Tavo Polo MD PhD [address] [place] [address] Abnormal echocardiogram (Primary Dx); Preprocedural [...] st Contact Info) Description 02/02/2025 10:15 AM NICKEL OPERATOR Office Visit [facility]Y [address] [place] [phone] Min Mario MD [address] [address] 02/20/2025 8:30 AM NICKEL OPERATOR Appointment [facility] Ultrasound [address] [place] [phone] Vanda Jimenez APRN, [facility] [address] [place] [address] Discharge Disposition: Discharged to home or Selfcare 04/06/2025 8:30 AM NICKEL OPERATOR Office Visit [facility] - Gastroenterology - Tok [address] [place] [phone] Marisa Patrick MD [address] [place] [address] documented as of this encounter Results * (ABNORMAL) BASIC METABOLIC PANEL W/ CALCIUM TOTAL (04/16/2023 3:23 PM NICKEL OPERATOR) SODIUM 137 136 - 145 mmol/L 04/16/2023 5:06 PM NICKEL OPERATOR [facility] POTASSIUM 3.5 3.5 - 5.1 mmol/L 04/16/2023 5:06 PM NICKEL OPERATOR [facility] CHLORIDE 100 98 - 107 mmol/L 04/16/2023 5:06 PM NICKEL OPERATOR [facility] CO2, VENOUS 29 22 - 30 mmol/L 04/16/2023 5:06 PM [facility] ANION GAP 11.5 <18.0 mmol/L 04/16/2023 5:06 PM [facility] GLUCOSE 92 70 - 99 mg/dL 04/16/2023 5:06 PM [facility] BUN 7(L) 8 - 26 mg/dL 04/16/2023 5:06 PM [facility] CREATININE, BLOOD 1.00 0.70 - 1.30 mg/dL 04/16/2023 5:06 PM [facility] BUN/CREATININE RATIO 7(L) 12 - 20 ratio 04/16/2023 5:06 PM [facility] CALCIUM 9.1 8.7 - 10.5 mg/dL 04/16/2023 5:06 PM [facility] IS THE PATIENT REQUIRED TO BE FASTING? No 04/16/2023 5:06 PM [facility] GFR, ESTIMATED >60 >=60 04/16/2023 5:06 PM [facility] Comment: Creatinine Clearance is the preferred criteria for selecting drug dose adjustments in renally impaired patients. The GFR is provided as additional pertinent clinical information. GFR is reported in mL/min/1.73 sq m. Calculation based on the Chronic Kidney Disease Epidemiology Collaboration (CKD- EPI) equation refit without adjustment for race. GFR, EST. >60 >=60 024 5:06 PM [facility] GFR, EST. NONAFRICAN >60 >=60 04/16/2023 5:06 PM [facility] Blood Venipuncture / Unknown 04/16/2023 3:23 PM NICKEL OPERATOR 04/16/2023 4:25 PM NICKEL OPERATOR us Tavo Polo MD PhD CHEMISTRY ORDERABLES Final Result [facility] [address] [place] [address] documented in this encounter Visit Diagnoses Diagnosis Abnormal echocardiogram- Primary Nonspecific (abnormal) findings on radiological and other examination of other intrathoracic organs Preprocedural cardiovascular examination Pre-operative cardiovascular examination documented in this encounter Care Teams Production Sampler Relationship Specialty Start Date End Date Kevin Meyer PAC [address] [place] [address] PCP - General Physician Director Cost 07/15/17 Amy Allen APRN, DRY CAN TENDER [address]2 [facility] [address] [place] [address] Nurse Practitioner Cardiology 01/27/23 09/29/24 Merlene Pastor III, MD [address] [place] [address] Consulting Physician Urology 10/28/21 Brad Bone MD [address] [place] [phone] Consulting Physician Neurology 09/04/22 Vanda Jimenez APRN, DRY CAN TENDER [address] [place] [address] Nurse Practitioner Advanced Practice Nurse 07/31/22 Min Mario MD #[address] [address] Consulting Physician Urology 12/17/23 documented as of this encounter
--- OUTSIDE RECORDS SUMMARY | 2025-01-16 14:05 | XMS_ITS ---
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 Name Role Phone Kevin Meyer Primary Care Provider [phone] Kevin Meyer Unavailable [phone] Benja Esteban MD Unavailable [phone] Active Problems Problem Noted Date Diagnosed Date Knee pain 02/13/2021 Malignant neoplasm of colon 02/13/2021 Essential hypertension 01/16/2021 Cervical radiculopathy 01/15/2021 Personal history of other ma lignant neoplasm of large intestine 12/17/2020 Overview (12/17/2020): Added automatically from request for surgery [id number] 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/13/2020 Overview (12/13/2020): Added automatically from request for surgery [id number] Malignant carcinoid tumor of the ileum Stimulant use disorder 05/31/2020 Severe alcohol use disorder 05/31/2020 PTSD (post-traumatic stress disorder) 05/31/2020 Chronic bilateral low back pain without sciatica 04/07/2020 Assessment & Plan (05/04/2020 12:54 PM INTERNET ECOMMERCE SPECIALIST): - flexeril 10mg TID PRN - [place] 10mg q4 PRN - lidocaine patch daily - avoid IV ketorelac and NSAIDs with starting lithium - heating packs Assessment & Plan (05/03/2020 9:56 AM INTERNET ECOMMERCE SPECIALIST): - flexeril 10mg TID PRN - [place] 10mg q4 PRN - lidocaine patch daily - avoid IV ketorelac and NSAIDs with starting lithium - heating packs Assessment & Plan (05/02/2020 11:56 AM INTERNET ECOMMERCE SPECIALIST): - flexeril 10mg TID PRN - [place] 10mg q4 PRN - lidocaine patch daily - avoid IV ketorelac and NSAIDs with starting lithium - heating packs Assessment & Plan (05/01/2020 10:58 AM INTERNET ECOMMERCE SPECIALIST): - flexeril 10mg TID PRN - [place] 10mg q4 PRN - lidocaine patch daily - avoid IV ketorelac and NSAIDs with starting lithium - heating pads Assessment & Plan (04/30/2020 12:17 PM INTERNET ECOMMERCE SPECIALIST): - flexeril 10mg TID PRN - [place] 10mg q4 PRN - lidocaine patch daily - avoid IV ketorelac and NSAIDs with starting lithium - heating pads Assessment & Plan (04/28/2020 8:01 AM INTERNET ECOMMERCE SPECIALIST): - flexeril 10mg TID PRN - [place] 10mg q4 PRN - lidocaine patch daily - avoid IV ketorelac and NSAIDs with starting lithium - heating pads Assessment & Plan (04/27/2020 8:47 AM INTERNET ECOMMERCE SPECIALIST): - flexeril 10mg TID PRN - [place] 10mg q4 PRN - lidocaine patch daily - avoid IV ketorelac and NSAIDs given [place] - heating pads Assessment & Plan (04/26/2020 10:11 AM INTERNET ECOMMERCE SPECIALIST): - flexeril 10mg TID PRN - [place] 10mg q4 PRN - lidocaine patch daily - avoid IV ketorelac and NSAIDs given [place] - heating pads Assessment & Plan (04/25/2020 9:45 AM INTERNET ECOMMERCE SPECIALIST): - flexeril 10mg TID PRN - [place] 10mg q4 PRN - lidocaine patch daily - avoid IV ketorelac and NSAIDs given [place] - heating pads Assessment & Plan (04/24/2020 9:49 AM INTERNET ECOMMERCE SPECIALIST): - flexeril 10mg TID PRN - [place] 10mg q4 PRN - lidocaine patch daily - avoid IV ketorelac and NSAIDs given [place] - heating pads Assessment & Plan (04/23/2020 10:21 AM INTERNET ECOMMERCE SPECIALIST): - flexeril 10mg TID PRN - [place] 10mg q4 PRN - lidocaine patch daily - avoid IV ketorelac and NSAIDs given [place] - heating pads Assessment & Plan (04/21/2020 8:38 AM INTERNET ECOMMERCE SPECIALIST): - flexeril 10mg TID PRN - [place] 10mg q4 PRN - lidocaine patch daily - avoid IV ketorelac and NSAIDs given [place] - heating pads Assessment & Plan (04/20/2020 12:05 PM INTERNET ECOMMERCE SPECIALIST): - flexeril 10mg TID PRN - [place] 10mg q4 PRN - lidocaine patch daily - avoid IV ketorelac and NSAIDs given [place] - heating pads Assessment & Plan (04/19/2020 9:46 AM INTERNET ECOMMERCE SPECIALIST): - flexeril 10mg TID PRN - [place] 10mg q4 PRN - lidocaine patch daily - avoid IV ketorelac and NSAIDs given [place] - heating pads Assessment & Plan (04/18/2020 10:09 AM INTERNET ECOMMERCE SPECIALIST): - flexeril 10mg TID PRN - [place] 10mg q4 PRN - lidocaine patch daily - avoid IV ketorelac and NSAIDs given [place] - heating pads Assessment & Plan (04/17/2020 9:31 AM INTERNET ECOMMERCE SPECIALIST): - flexeril 10mg TID PRN - [place] 10mg q4 PRN - lidocaine patch daily - avoid IV ketorelac and NSAIDs given [place] - heating pads Assessment & Plan (04/16/2020 11:51 AM INTERNET ECOMMERCE SPECIALIST): - flexeril 10mg TID PRN - [place] 10mg q4 PRN - lidocaine patch daily - avoid IV ketorelac and NSAIDs given [place] - heating pads Assessment & Plan (04/14/2020 9:57 AM INTERNET ECOMMERCE SPECIALIST): - flexeril 10mg TID PRN - [place] 10mg q4 PRN - lidocaine patch daily - avoid IV ketorelac and NSAIDs given [place] - heating pads Assessment & Plan (04/10/2020 10:04 PM INTERNET ECOMMERCE SPECIALIST): - flexeril 10mg TID PRN - [place] 10mg q4 PRN - lidocaine patch daily - avoid IV ketorelac and NSAIDs given [place] - heating pads Assessment & Plan (04/08/2020 3:23 PM INTERNET ECOMMERCE SPECIALIST): Patient endorsing exacerbation of chronic back pain [...] -PT Assessment & Plan (04/07/2020 6:23 AM INTERNET ECOMMERCE SPECIALIST): Patient endorsing exacerbation of chronic back pain and left ankle pain (had previous traumatic injury, required surgery). No other red flag symptoms/signs. Reports he has received injections in the past -Continue PRN norco, flexeril -Lidocaine patch to back -PT Depressive disorder 04/03/2020 Assessment & Plan (05/04/2020 12:54 PM INTERNET ECOMMERCE SPECIALIST): 54yo M with reported history of bipolar [...] more bright. Plan to discharge patient 05/04. [place] augmentation started with moderate improvements seen in depressive symptoms with ECT, titrated to 300 mg BID with level 0.6. - Continue OLANZapine, 20 mg, oral, Nightly, for depression - Continue Venlafaxine XR 150 mg PO daily, for depression - Continue lithium to 300 mg BID - [place] level 0.6 on 05/03 - This is [...] 05/04 Assessment & Plan (05/03/2020 9:56 AM INTERNET ECOMMERCE SPECIALIST): 54yo M with reported history of bipolar [...] more bright. Plan to discharge patient 05/04. [place] augmentation started with moderate improvements seen in depressive symptoms with ECT, titrated to 300 mg BID with level 0.6. - Continue OLANZapine, 20 mg, oral, Nightly, for depression - Continue Venlafaxine XR 150 mg PO daily, for depression - Continue lithium to 300 mg BID - [place] level 0.6 on 05/03 - This is [...] permission) Assessment & Plan (05/02/2020 11:56 AM INTERNET ECOMMERCE SPECIALIST): 54yo M with reported history of bipolar [...] permission) Assessment & Plan (05/01/2020 10:58 AM INTERNET ECOMMERCE SPECIALIST): 54yo M with reported history of bipolar [...] family Assessment & Plan (04/30/2020 12:17 PM INTERNET ECOMMERCE SPECIALIST): 54yo M with reported history of bipolar [...] family Assessment & Plan (04/28/2020 8:02 AM INTERNET ECOMMERCE SPECIALIST): 54yo M with reported history of bipolar [...] depression Assessment & Plan (04/27/2020 8:47 AM INTERNET ECOMMERCE SPECIALIST): 54yo M with reported history of bipolar [...] depression Assessment & Plan (04/26/2020 10:11 AM INTERNET ECOMMERCE SPECIALIST): 54yo M with reported history of bipolar [...] depression Assessment & Plan (04/25/2020 9:47 AM INTERNET ECOMMERCE SPECIALIST): 54yo M with reported history of bipolar [...] depression Assessment & Plan (04/24/2020 9:48 AM INTERNET ECOMMERCE SPECIALIST): 54yo M with reported history of bipolar [...] depression Assessment & Plan (04/23/2020 10:21 AM INTERNET ECOMMERCE SPECIALIST): 54yo M with reported history of bipolar [...] depression Assessment & Plan (04/21/2020 8:36 AM INTERNET ECOMMERCE SPECIALIST): 54yo M with reported history of bipolar [...] depression Assessment & Plan (04/20/2020 12:05 PM INTERNET ECOMMERCE SPECIALIST): 54yo M with reported history of bipolar [...] depression Assessment & Plan (04/19/2020 9:48 AM INTERNET ECOMMERCE SPECIALIST): 54yo M with reported history of bipolar [...] depression Assessment & Plan (04/18/2020 10:08 AM INTERNET ECOMMERCE SPECIALIST): 54yo M with reported history of bipolar [...] depression Assessment & Plan (04/17/2020 9:32 AM INTERNET ECOMMERCE SPECIALIST): 54yo M with reported history of bipolar [...] depression Assessment & Plan (04/16/2020 11:49 AM INTERNET ECOMMERCE SPECIALIST): 54yo M with reported history of bipolar [...] depression Assessment & Plan (04/14/2020 9:56 AM INTERNET ECOMMERCE SPECIALIST): 54yo M with reported history of bipolar [...] depression Assessment & Plan (04/13/2020 9:46 AM INTERNET ECOMMERCE SPECIALIST): 54yo M with reported history of bipolar [...] procedure Assessment & Plan (04/10/2020 3:25 PM INTERNET ECOMMERCE SPECIALIST): Presented to ED 04/02 with suicidal ideation, depression. Initially admitted to psychiatry for medication adjustment, received ECT x1 04/06 -Continue current meds: lexapro 5, effexor 112.5, olanzapine 20mg QHS - If COVID test is negative, transfer to Psychiatry floor. Assessment & Plan (04/08/2020 3:24 PM INTERNET ECOMMERCE SPECIALIST): Presented to ED 04/02 with suicidal ideation, depression. Initially admitted to psychiatry for medication adjustment, received ECT x1 04/06 -Psych consulted upon transfer to medicine but are following only peripherally over the weekend -Continue current meds: lexapro 5, effexor 112.5, olanzapine 20mg QHS -Psychiatry recommending discontinuing suicide precautions with 1:1 sitter Assessment & Plan (04/07/2020 6:14 AM INTERNET ECOMMERCE SPECIALIST): Presented to ED 04/02 with suicidal ideation, depression. Initially admitted to psychiatry for medication adjustment, received ECT x1 04/06 -Psych c/s upon transfer -Continue current meds: lexapro 5, effexor 112.5, olanzapine 20mg QHS -Suicide precautions, 1:1 sitter Assessment & Plan (04/12/2020 9:11 AM INTERNET ECOMMERCE SPECIALIST): 54yo M with reported history of bipolar [...] midnight Assessment & Plan (04/03/2020 2:04 PM INTERNET ECOMMERCE SPECIALIST): 54yo M with reported history of bipolar [...] disease) Assessment & Plan (05/04/2020 12:54 PM INTERNET ECOMMERCE SPECIALIST): Patient has a long history of GERD. - Protonix 40 mg daily Assessment & Plan (05/03/2020 9:56 AM INTERNET ECOMMERCE SPECIALIST): Patient has a long history of GERD. - Protonix 40 mg daily Assessment & Plan (05/02/2020 11:57 AM INTERNET ECOMMERCE SPECIALIST): Patient has a long history of GERD. - Protonix 40 mg daily Assessment & Plan (05/01/2020 10:58 AM INTERNET ECOMMERCE SPECIALIST): Patient has a long history of GERD. - Protonix 40 mg daily Assessment & Plan (04/30/2020 12:17 PM INTERNET ECOMMERCE SPECIALIST): Patient has a long history of GERD. - Protonix 40 mg daily Assessment & Plan (04/28/2020 8:00 AM INTERNET ECOMMERCE SPECIALIST): Patient has a long history of GERD. -Protonix 40 mg daily Assessment & Plan (04/27/2020 8:47 AM INTERNET ECOMMERCE SPECIALIST): Patient has a long history of GERD. -Protonix 40 mg daily Assessment & Plan (04/26/2020 10:11 AM INTERNET ECOMMERCE SPECIALIST): Patient has a long history of GERD. -Protonix 40 mg daily Assessment & Plan (04/25/2020 9:45 AM INTERNET ECOMMERCE SPECIALIST): Patient has a long history of GERD. -Protonix 40 mg daily Assessment & Plan (04/24/2020 9:48 AM INTERNET ECOMMERCE SPECIALIST): Patient has a long history of GERD. -Protonix 40 mg daily Assessment & Plan (04/23/2020 10:21 AM INTERNET ECOMMERCE SPECIALIST): Patient has a long history of GERD. -Protonix 40 mg daily Assessment & Plan (04/21/2020 8:37 AM INTERNET ECOMMERCE SPECIALIST): Patient has a long history of GERD. -Protonix 40 mg daily Assessment & Plan (04/20/2020 12:05 PM INTERNET ECOMMERCE SPECIALIST): Patient has a long history of GERD. -Protonix 40 mg daily Assessment & Plan (04/19/2020 9:46 AM INTERNET ECOMMERCE SPECIALIST): Patient has a long history of GERD. -Protonix 40 mg daily Assessment & Plan (04/18/2020 10:09 AM INTERNET ECOMMERCE SPECIALIST): Patient has a long history of GERD. -Protonix 40 mg daily Assessment & Plan (04/17/2020 9:31 AM INTERNET ECOMMERCE SPECIALIST): Patient has a long history of GERD. -Protonix 40 mg daily Assessment & Plan (04/16/2020 11:51 AM INTERNET ECOMMERCE SPECIALIST): Patient has a long history of GERD. -Protonix 40 mg daily Assessment & Plan (04/14/2020 9:56 AM INTERNET ECOMMERCE SPECIALIST): Patient has a long history of GERD. -Protonix 40 mg daily Assessment & Plan (04/10/2020 3:25 PM INTERNET ECOMMERCE SPECIALIST): Continue pantoprazole Assessment & Plan (04/08/2020 3:17 PM INTERNET ECOMMERCE SPECIALIST): Continue pantoprazole Assessment & Plan (04/07/2020 6:15 AM INTERNET ECOMMERCE SPECIALIST): Continue pantoprazole Assessment & Plan (04/03/2020 5:54 PM INTERNET ECOMMERCE SPECIALIST): Patient has a long history of GERD. -Protonix 40 mg daily Hypothyroidism 04/03/2020 Assessment & Plan (05/04/2020 12:54 PM INTERNET ECOMMERCE SPECIALIST): Patient carries a diagnosis of hypothyroidism for several years. He is currently treated on levothyroxine 75 mcg daily. - Repeat TFT tests in 6 weeks - continue levothyroxine 75 mcg daily Assessment & Plan (05/03/2020 9:56 AM INTERNET ECOMMERCE SPECIALIST): Patient carries a diagnosis of hypothyroidism for several years. He is currently treated on levothyroxine 75 mcg daily. - Repeat TFT tests in 6 weeks - continue levothyroxine 75 mcg daily Assessment & Plan (05/02/2020 11:57 AM INTERNET ECOMMERCE SPECIALIST): Patient carries a diagnosis of hyperthyroidism for several years. He is currently treated on levothyroxine 75 mcg daily. - Repeat TFT tests in 6 weeks - continue levothyroxine 75 mcg daily Assessment & Plan (05/01/2020 10:58 AM INTERNET ECOMMERCE SPECIALIST): Patient carries a diagnosis of hyperthyroidism for several years. He is currently treated on levothyroxine 75 mcg daily. - Repeat TFT tests in 6 weeks - continue levothyroxine 75 mcg daily Assessment & Plan (04/30/2020 12:17 PM INTERNET ECOMMERCE SPECIALIST): Patient carries a diagnosis of hyperthyroidism for several years. He is currently treated on levothyroxine 75 mcg daily. - Repeat TFT tests in 6 weeks - continue levothyroxine 75 mcg daily Assessment & Plan (04/28/2020 8:00 AM INTERNET ECOMMERCE SPECIALIST): Patient carries a diagnosis of hyperthyroidism for several years. He is currently treated on levothyroxine 75 mcg daily. - Repeat TFT tests in 6 weeks - continue levothyroxine 75 mcg daily Assessment & Plan (04/27/2020 8:47 AM INTERNET ECOMMERCE SPECIALIST): Patient carries a diagnosis of hyperthyroidism for several years. He is currently treated on levothyroxine 75 mcg daily. - Repeat TFT tests in 6 weeks - continue levothyroxine 75 mcg daily Assessment & Plan (04/26/2020 10:11 AM INTERNET ECOMMERCE SPECIALIST): Patient carries a diagnosis of hyperthyroidism for several years. He is currently treated on levothyroxine 75 mcg daily. - Repeat TFT tests in 6 weeks - continue levothyroxine 75 mcg daily Assessment & Plan (04/25/2020 9:45 AM INTERNET ECOMMERCE SPECIALIST): Patient carries a diagnosis of hyperthyroidism for several years. He is currently treated on levothyroxine 75 mcg daily. - Repeat TFT tests in 6 weeks - continue levothyroxine 75 mcg daily Assessment & Plan (04/24/2020 9:48 AM INTERNET ECOMMERCE SPECIALIST): Patient carries a diagnosis of hyperthyroidism for several years. He is currently treated on levothyroxine 75 mcg daily. - Repeat TFT tests in 6 weeks - continue levothyroxine 75 mcg daily Assessment & Plan (04/23/2020 10:21 AM INTERNET ECOMMERCE SPECIALIST): Patient carries a diagnosis of hyperthyroidism for several years. He is currently treated on levothyroxine 75 mcg daily. - Repeat TFT tests in 6 weeks - continue levothyroxine 75 mcg daily Assessment & Plan (04/21/2020 8:37 AM INTERNET ECOMMERCE SPECIALIST): Patient carries a diagnosis of hyperthyroidism for several years. He is currently treated on levothyroxine 75 mcg daily. - Repeat TFT tests in 6 weeks - continue levothyroxine 75 mcg daily Assessment & Plan (04/20/2020 12:05 PM INTERNET ECOMMERCE SPECIALIST): Patient carries a diagnosis of hyperthyroidism for several years. He is currently treated on levothyroxine 75 mcg daily. - Repeat TFT tests in 6 weeks - continue levothyroxine 75 mcg daily Assessment & Plan (04/19/2020 9:46 AM INTERNET ECOMMERCE SPECIALIST): Patient carries a diagnosis of hyperthyroidism for several years. He is currently treated on levothyroxine 75 mcg daily. - Repeat TFT tests in 6 weeks - continue levothyroxine 75 mcg daily Assessment & Plan (04/18/2020 10:09 AM INTERNET ECOMMERCE SPECIALIST): Patient carries a diagnosis of hyperthyroidism for several years. He is currently treated on levothyroxine 75 mcg daily. - Repeat TFT tests in 6 weeks - continue levothyroxine 75 mcg daily Assessment & Plan (04/17/2020 9:31 AM INTERNET ECOMMERCE SPECIALIST): Patient carries a diagnosis of hyperthyroidism for several years. He is currently treated on levothyroxine 75 mcg daily. - Repeat TFT tests in 6 weeks - continue levothyroxine 75 mcg daily Assessment & Plan (04/16/2020 11:51 AM INTERNET ECOMMERCE SPECIALIST): Patient carries a diagnosis of hyperthyroidism for several years. He is currently treated on levothyroxine 75 mcg daily. - Repeat TFT tests in 6 weeks - continue levothyroxine 75 mcg daily Assessment & Plan (04/14/2020 9:57 AM INTERNET ECOMMERCE SPECIALIST): Patient carries a diagnosis of hyperthyroidism for several years. He is currently treated on levothyroxine 75 mcg daily. - Repeat TFT tests in 6 weeks - continue levothyroxine 75 mcg daily Assessment & Plan (04/10/2020 3:25 PM INTERNET ECOMMERCE SPECIALIST): 04/02: TSH 6.49, T4 WNL at 1.38 Continue synthroid 75mcg; repeat TFTs 6-8 weeks Assessment & Plan (04/08/2020 3:17 PM INTERNET ECOMMERCE SPECIALIST): 04/02: TSH 6.49, T4 WNL at 1.38 Continue synthroid 75mcg; repeat TFTs 6-8 weeks Assessment & Plan (04/07/2020 6:16 AM INTERNET ECOMMERCE SPECIALIST): 04/02: TSH 6.49, T4 WNL at 1.38 Continue synthroid 75mcg; repeat TFTs 6-8 weeks Assessment & Plan (04/10/2020 9:35 PM INTERNET ECOMMERCE SPECIALIST): Patient carries a diagnosis of hyperthyroidism for several years. He is currently treated on levothyroxine 75 mcg daily. - Repeat TFT tests in 6 weeks - continue levothyroxine 75 mcg daily Hyperlipemia 04/03/2020 Assessment & Plan (05/04/2020 12:55 PM INTERNET ECOMMERCE SPECIALIST): Has a stated history of hyperlipidemia has been stably treated with atorvastatin 40 mg daily for many years. Patient's LDL low on lipid panel. Notable elevated triglycerides but not fasting sample. - atorvastatin 40 mg daily - fenofibrate 145mg daily Assessment & Plan (05/03/2020 9:56 AM INTERNET ECOMMERCE SPECIALIST): Has a stated history of hyperlipidemia has been stably treated with atorvastatin 40 mg daily for many years. Patient's LDL low on lipid panel. Notable elevated triglycerides but not fasting sample. - atorvastatin 40 mg daily - fenofibrate 145mg daily Assessment & Plan (05/02/2020 11:57 AM INTERNET ECOMMERCE SPECIALIST): Has a stated history of hyperlipidemia has been stably treated with atorvastatin 40 mg daily for many years. Patient's LDL low on lipid panel. Notable elevated triglycerides but not fasting sample. - atorvastatin 40 mg daily - fenofibrate 145mg daily Assessment & Plan (05/01/2020 10:58 AM INTERNET ECOMMERCE SPECIALIST): Has a stated history of hyperlipidemia has been stably treated with atorvastatin 40 mg daily for many years. Patient's LDL low on lipid panel. Notable elevated triglycerides but not fasting sample. - atorvastatin 40 mg daily - tricor 145mg daily Assessment & Plan (04/30/2020 12:17 PM INTERNET ECOMMERCE SPECIALIST): Has a stated history of hyperlipidemia has been stably treated with atorvastatin 40 mg daily for many years. Patient's LDL low on lipid panel. Notable elevated triglycerides but not fasting sample. - atorvastatin 40 mg daily - tricor 145mg daily Assessment & Plan (04/28/2020 8:01 AM INTERNET ECOMMERCE SPECIALIST): Has a stated history of hyperlipidemia has been stably treated with atorvastatin 40 mg daily for many years. Patient's LDL low on lipid panel. Notable elevated triglycerides but not fasting sample. - atorvastatin 40 mg daily - tricor 145mg daily Assessment & Plan (04/27/2020 8:47 AM INTERNET ECOMMERCE SPECIALIST): Has a stated history of hyperlipidemia has been stably treated with atorvastatin 40 mg daily for many years. Patient's LDL low on lipid panel. Notable elevated triglycerides but not fasting sample. - atorvastatin 40 mg daily - tricor 145mg daily Assessment & Plan (04/26/2020 10:11 AM INTERNET ECOMMERCE SPECIALIST): Has a stated history of hyperlipidemia has been stably treated with atorvastatin 40 mg daily for many years. Patient's LDL low on lipid panel. Notable elevated triglycerides but not fasting sample. - atorvastatin 40 mg daily - tricor 145mg daily Assessment & Plan (04/25/2020 9:45 AM INTERNET ECOMMERCE SPECIALIST): Has a stated history of hyperlipidemia has [...] daily Assessment & Plan (04/24/2020 9:48 AM INTERNET ECOMMERCE SPECIALIST): Has a stated history of hyperlipidemia has [...] daily Assessment & Plan (04/23/2020 10:21 AM INTERNET ECOMMERCE SPECIALIST): Has a stated history of hyperlipidemia has [...] daily Assessment & Plan (04/21/2020 8:38 AM INTERNET ECOMMERCE SPECIALIST): Has a stated history of hyperlipidemia has [...] daily Assessment & Plan (04/20/2020 12:05 PM INTERNET ECOMMERCE SPECIALIST): Has a stated history of hyperlipidemia has [...] daily Assessment & Plan (04/19/2020 9:46 AM INTERNET ECOMMERCE SPECIALIST): Has a stated history of hyperlipidemia has [...] daily Assessment & Plan (04/18/2020 10:09 AM INTERNET ECOMMERCE SPECIALIST): Has a stated history of hyperlipidemia has [...] daily Assessment & Plan (04/17/2020 9:31 AM INTERNET ECOMMERCE SPECIALIST): Has a stated history of hyperlipidemia has [...] daily Assessment & Plan (04/16/2020 11:51 AM INTERNET ECOMMERCE SPECIALIST): Has a stated history of hyperlipidemia has [...] daily Assessment & Plan (04/14/2020 9:56 AM INTERNET ECOMMERCE SPECIALIST): Has a stated history of hyperlipidemia has [...] daily Assessment & Plan (04/13/2020 9:46 AM INTERNET ECOMMERCE SPECIALIST): Has a stated history of hyperlipidemia has [...] daily Assessment & Plan (04/10/2020 3:25 PM INTERNET ECOMMERCE SPECIALIST): Continue atorvastatin 40 Assessment & Plan (04/08/2020 3:17 PM INTERNET ECOMMERCE SPECIALIST): Continue atorvastatin 40 Assessment & Plan (04/07/2020 6:15 AM INTERNET ECOMMERCE SPECIALIST): Continue atorvastatin 40 Assessment & Plan (04/12/2020 9:03 AM INTERNET ECOMMERCE SPECIALIST): Has a stated history of hyperlipidemia has [...] (08/31/2018): Added automatically from request for surgery [id number] Assessment & Plan (09/06/2018 12:49 PM CDT): [...] THERAPY PLAN* Plan Start Date:04/06/2020 Plan Provider:Libia Gonzaelz MD Linked Problems Depressive disorder Treatment Medications [...] 04/10/2020 Assessment & Plan (05/04/2020 12:55 PM INTERNET ECOMMERCE SPECIALIST): Cr 1.3 -> 1.22 resolving. Baseline <1. - encourage fluids - avoid nephrotoxic meds Assessment & Plan (05/03/2020 9:56 AM INTERNET ECOMMERCE SPECIALIST): Cr 1.3 -> 1.22 resolving. Baseline <1. - encourage fluids - avoid nephrotoxic meds Assessment & Plan (05/02/2020 11:57 AM INTERNET ECOMMERCE SPECIALIST): Cr 1.3 -> 1.22 resolving. Baseline <1. - encourage fluids - avoid nephrotoxic meds Assessment & Plan (05/01/2020 10:58 AM INTERNET ECOMMERCE SPECIALIST): Cr 1.3 -> 1.22 resolving. Baseline <1. - encourage fluids - avoid nephrotoxic meds Assessment & Plan (04/19/2020 9:46 AM INTERNET ECOMMERCE SPECIALIST): Cr 1.3 -> 1.22 resolving. Baseline <1. - encourage fluids - avoid nephrotoxic meds Assessment & Plan (04/18/2020 10:09 AM INTERNET ECOMMERCE SPECIALIST): Cr 1.3 -> 1.22 resolving. Baseline <1. - encourage fluids - avoid nephrotoxic meds Assessment & Plan (04/16/2020 11:51 AM INTERNET ECOMMERCE SPECIALIST): Cr 1.3 -> 1.22 resolving. Baseline <1. - encourage fluids - avoid nephrotoxic meds Assessment & Plan (04/14/2020 9:57 AM INTERNET ECOMMERCE SPECIALIST): Cr 1.3 -> 1.22 resolving. Baseline <1. - encourage fluids - avoid nephrotoxic meds Assessment & Plan (04/13/2020 9:47 AM INTERNET ECOMMERCE SPECIALIST): Cr 1.3 -> 1.22 resolving. Baseline <1. - encourage fluids - avoid nephrotoxic meds Assessment & Plan (04/12/2020 9:04 AM INTER[employer] SPECIALIST): Cr 1.3 -> 1.22 resolving. Baseline <1. - encourage fluids - avoid nephrotoxic meds Diarrhea 04/10/2020 04/20/2020 Assessment & Plan (05/04/2020 12:55 PM INTER[employer] SPECIALIST): Patient recently had constipation, was treated with BID miralax and senna- docusate. Was having diarrhea last week so scheduled bowel regimen discontinued. - discontinued daily senna-docusate - miralax PRN Assessment & Plan (05/03/2020 9:56 AM INTER[employer] SPECIALIST): Patient recently had constipation, was treated with BID miralax and senna- docusate. Was having diarrhea last week so scheduled bowel regimen discontinued. - discontinued daily senna-docusate - miralax PRN Assessment & Plan (05/01/2020 10:59 AM INTER[employer] SPECIALIST): Patient recently had constipation, was treated with BID miralax and senna- docusate. Was having diarrhea last week so scheduled bowel regimen discontinued. - discontinued daily senna-docusate - miralax PRN Assessment & Plan (04/19/2020 9:47 AM INTER[employer] SPECIALIST): Patient recently had constipation, was treated with BID miralax and senna- docusate. Was having diarrhea last week so scheduled bowel regimen discontinued. - discontinued daily senna-docusate - miralax PRN Assessment & Plan (04/16/2020 11:52 AM INTER[employer] SPECIALIST): Patient recently had constipation, was treated with BID miralax and senna- docusate. Was having diarrhea last week so scheduled bowel regimen discontinued. - discontinue daily senna-docusate - miralax PRN Assessment & Plan (04/14/2020 9:57 AM INTER[employer] SPECIALIST): Patient recently had constipation, was treated with BID miralax and senna- docusate. Endorsing nonbloody diarrhea for last 2 days. - discontinue daily senna-docusate - miralax PRN Assessment & Plan (04/10/2020 10:09 PM INTER[employer]IST): Patient recently had constipation, was treated with BID miralax and senna- docusate. Endorsing nonbloody diarrhea for last 2 days. - discontinue daily senna-docusate - miralax PRN Ventral hernia without obstr uction or gangrene 08/31/2018 04/20/2020 Overview (08/31/2018): Added automatically from request for surgery [id number] Assessment & Plan (09/06/2018 12:51 PM CDT): The procedure along with the risks, benefits, and post operative period were discussed with the patient and his significant other who agree. Fracture of navicular bone of foot 05/16/2015 04/20/2020
--- OUTSIDE RECORDS SUMMARY | 2025-01-16 14:05 | XMS_ITS | Clinical Summary ---
Author Organization [facility] Address [address] [place] [address] Care Team Providers Care Manager Test Name Role Phone Kevin Meyer Primary Care Provider [phone] Jorden Serrano MD Unavailable [phone] Morgan Galvan DO, George V Unavailable [phone] Min Mario MD Unavailable Sona Babin NP Unavailable [phone] Allergies Active Allergy Reactions Criticality Noted Date Comments Acetaminophen Other (see comment) High 07/02/2022 Patient requires vicoprofen due to history of liver cancer Bee Venom Anaphylaxis High 06/22/2006 Ibuprofen Unknown,Other (see comment) 11/18/2023 avoid due to kidneys. Sulfamethoxazole-Trimet hoprim Hives,Rash Low 06/23/2022 Medications levothyroxine 75 MCG tabletIndication s:hypothyroidism Take 1 tablet (75 mcg total) by mouth daily. Indications: hypothyroidism Active LORazepam ER (LOREEV XR) 1 MG Capsule ER 24 Hour SprinkleIndicati ons:anxiety/inso mnia Take 1 tablet by mouth daily. Indications: anxiety/insomnia 023 Active EPINEPHrine 0.3 MG/0.3ML injectionIndicat ions:anaphylaxis INJECT 0.3 MILLILITER (0.3 MG) BY INTRAMUSCULAR ROUTE ONCE NEEDED FOR ANAPHYLAXIS Active ondansetron (ZOFRAN-ODT) 4 MG disintegrating tabletIndication s:nausea Take 1 tablet (4 mg total) by mouth every 8 (eight) hours as needed for Nausea. Indications: nausea Active octreotide (SANDOSTATIN) 100 MCG/ML SolutionIndicati ons:antidiarrhea l Inject 1 mL (100 mcg total) into the vein every 30 (thirty) days. Indications: antidiarrheal Active amLODIPine (NORVASC) 10 MG tabletIndication s:hypertension Take 1 tablet (10 mg total) by mouth daily. Indications: hypertension 023 Active pregabalin (LYRICA) 75 MG capsuleIndicatio ns:nerve pain Take 1 capsule (75 mg total) by mouth 2 (two) times daily. Indications: nerve pain 023 Active prazosin (MINIPRESS) 2 MG capsule Take 1 capsule (2 mg total) by mouth nightly at bedtime. Active calcium, elemental, 600 MG tabletIndication s:S/P lumbar fusion Take 1 tablet (600 mg total) by mouth 2 (two) times daily. 60 tablet 4 024 Active vitamin D3, cholecalciferol, 125 mcg capsuleIndicatio ns:S/P lumbar fusion Take 1 capsule (5,000 Units total) by mouth daily. 30 capsule 4 024 Active modafinil (PROVIGIL) 100 MG tablet Take 1 tablet (100 mg total) by mouth daily. Active pantoprazole EC (PROTONIX) 40 MG tablet Take 1 tablet (40 mg total) by mouth daily. Active vitamin B-12 (CYANOCOBALAMIN) (CYANOCOBALAMIN) 1000 mcg tablet Take 1 tablet (1,000 mcg total) by mouth every other day. Active potassium chloride CR (KLOR-CON M) 20 MEQ tablet Take 1 tablet (20 mEq total) by mouth daily. Active VRAYLAR 3 MG capsule Take 1 capsule (3 mg total) by mouth daily. Active diazePAM (VALIUM) 2 MG tablet Take 1 tablet (2 mg total) by mouth nightly as needed for Anxiety or Sleep. Active OLANZapine (ZYPREXA) 2.5 MG tablet Take 1 tablet (2.5 mg total) by mouth nightly at bedtime. Active budesonide-formo terol (SYMBICORT) 80-4.5 MCG/ACT inhaler Inhale 2 puffs into the lungs 2 (two) times daily. Active albuterol sulfate HFA 108 (90 Base) MCG/ACT inhaler Inhale into the lungs every 6 (six) hours as needed for Wheezing or Shortness of breath. Active diazePAM (VALIUM) 5 MG tabletIndication s:S/P hardware removal Take 1 tablet (5 mg total) by mouth every 6 (six) hours as needed (Spasms). 30 tablet Active orphenadrine ER (NORFLEX) 100 MG TABLET SR 12 HR 12 hr tabletIndication s:S/P hardware removal Take 1 tablet (100 mg total) by mouth 2 (two) times daily. 180 tablet Active oxyCODONE immediate release (ROXICODONE) 5 MG immediate release tabletIndication s:Acute Pain < 7 Day Supply Take 2 tablets (10 mg total) by mouth every 8 (eight) hours as needed for Pain. Indications: Acute Pain < 7 Day Supply Take 1-2 tablets (5-10 mg) every 8 hours as needed for pain. 42 tablet Active Additional Information Patient not taking.Reported on 01/12/2025 naloxone (NARCAN) 4 MG/0.1ML nasal sprayIndications :Pain from implanted hardware, subsequent encounter 1 spray by Nasal route as needed for Opioid reversal. may repeat every 2 to 3 minutes in alternating nostrils until medical assistance becomes available 1 each 2024 Discontinued oxyCODONE immediate release (ROXICODONE) 5 MG immediate release tabletIndication s:Chronic Pain TAKE 1 TABLET (5 MG TOTAL) BY MOUTH EVERY 4 (FOUR) HOURS NEEDED FOR PAIN. INDICATIONS: CHRONIC PAIN 50 tablet 025 2024 Discontinued oxyCODONE immediate release (ROXICODONE) 5 MG immediate release tabletIndication s:Chronic Pain TAKE 1 TABLET (5 MG TOTAL) BY MOUTH EVERY 4 (FOUR) HOURS NEEDED FOR PAIN. INDICATIONS: CHRONIC PAIN 50 tablet 025 2024 Discontinued(R eorder) Active Problems Problem Noted Date Diagnosed Date Primary osteoarthritis of right knee 01/12/2025 Right knee pain 12/26/2024 Patellar tendinitis, right knee 12/15/2024 History of lumbar fusion 12/01/2024 Sacroiliitis 12/01/2024 S/P hardware removal 12/01/2024 Pain from implanted hardware 11/30/2024 S/P lumbar fusion 08/10/2023 Other osteomyelitis of left ulna 03/13/2023 Peripheral tear of medial me niscus of right knee as current injury, subsequent encounter 10/08/2022 Unspecified open wound of left elbow, subsequent encounter 08/11/2022 Septic olecranon bursitis of left elbow 06/24/19 23 05/25/2021 Resolved Problems Problem Noted Date Diagnosed Date Resolved Date 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 12/01/2024 Lumbar spine instability 08/10/202301/2025 Degenerative disc disease, lumbar 08/10/2023 12/01/2024 Spondylolisthesis of lumbar region 08/10/2023 12/01/2024 Encounters Date Type Department Care Team Description 01/12/2025 9:30 AM CDT Office Visit [facility] [address] [place] [id number] Robe Harvey, Knee Pain (RIGHT) 01/12/2025 Travel 01/06/2025 10:20 AM CDT - 01/06/2025 11:59 PM CDT Hospital Encounter [facility] [address] [place] [phone] Robe Harvey, Carol Nolan, MOLDING ROOM SUPERVISOR Jnt Pain/Knee Discharge Disposition: Home or Self Care (Routine Discharge) 01/06/2025 Travel 01/05/2025 8:07 AM CDT - 01/05/2025 11:59 PM CDT Hospital Encounter [facility] [address] [place] [phone] Adrienne Pitt, PT Robe Harvey, DO Knee Pain Discharge Disposition: Home or Self Care (Routine Discharge) 01/05/2025 Travel 01/03/2025 9:47 AM CDT - 01/03/2025 11:59 PM CDT Hospital Encounter [facility] [address] [place] [phone] Adrienne Pitt, PT Robe Harvey, Knee Pain Discharge Disposition: Home or Self Care (Routine Discharge) 01/03/2025 Travel 12/28/2024 8:00 AM CDT - 12/28/2024 11:59 PM CDT Hospital Encounter [facility] [address] [place] [phone] Robe Harvey, DO FucCarol denton R, MOLDING ROOM SUPERVISOR Jnt Pain/Knee Discharge Disposition: Home or Self Care (Routine Discharge) 12/28/2024 [facility] [address], [place] [facility] [place] [phone] Jennifer Huang, DISTRICT OR DISTRICT OFFICE DIRECTOR 12/28/2024 Travel 12/26/2024 9:00 AM CDT - 12/26/2024 11:59 PM CDT Hospital Encounter [facility] [address] [place] [phone] Adrienne Pitt, PT Knee Pain Discharge Disposition: Home or Self Care (Routine Discharge) 12/26/2024 Travel 12/15/2024 11:30 AM CDT Office Visit [facility] [address] [place] [address], [address] [place] [address] Robe Harvey, MRI Results (RIGHT knee) 12/15/2024 Travel 12/14/2024 1:40 PM CDT [facility] [address] [facility], [place] [facility] [place] [phone] Jennifer Huang, DISTRICT OR DISTRICT OFFICE DIRECTOR Post Operative (11/30/2024: Removal of Bilateral L 5-S1 Posterior Spinal Hardware//) 12/14/2024 MyChart Message Enc [facility] [place] [address] [id number] [facility] Provider Pain Management Referral 12/14/2024 Travel 11/30/2024 9:57 AM CDT Anesthesia [place] [address] Kwesi Loomis MD Jackson, Samantha Rae, BOILER ASSISTANT OPERATOR 11/30/2024 9:30 AM CDT - 11/30/2024 11:32 AM CDT [place] [address] Mando Rojas MD REMOVAL OF BILATERAL LUMBAR 5- SACRAL 1 POSTERIOR SPINAL HARDWARE 11/30/2024 7:31 AM CDT - 12/01/2024 2:47 PM CDT Hospital Encounter [facility]urg [address] [place] [address] Mando Rojas MD Discharge Disposition: Home or Self Care (Routine Discharge) 11/30/2024 Scan [facility] Scanned, [facility] 11/30/2024 Travel 11/29/2024 Telephone [facility] Medical [facility] - [facility] [address], [address] [place] [address] Mando Rojas MD Reschedule (Surgery start time changed to 9:30am arrival of 7:30am) 11/28/2024 Telephone [facility] [address], [facility] [address] [place] [address] Robe Harvey DO Appointment Request 11/17/2024 12:58 PM CDT - 11/17/2024 2:20 PM CDT Hospital Encounter [facility] [place] [address] Mando Rojas MD Discharge Disposition: Home or Self Care (Routine Discharge) 11/17/2024 Telephone [facility] - [address], [address] [place] [address] Mando Rojas MD Medication 11/17/2024 Travel 11/08/2024 Telephone [facility] - [facility] [address] [facility], [address] [place] [address] Mando Rojas MD Question 11/02/[address], [address] [address] Dennis Mora Jr., DO Disability Form ([employer] form for [facility]) 11/01/2024 2:03 PM CDT - 11/01/2024 11:59 PM CDT Hospital Encounter [facility] [address] [place] [address] Dennis Mora Jr., DO Discharge Disposition: Home or Self Care (Routine Discharge) 11/01/2024 Travel 10/25/2024 Telephone [facility] - [address], [address] [place] [phone] Mando Rojas MD Question 10/17/2024 8:48 AM CDT - 10/17/2024 11:59 PM CDT Hospital Encounter [facility] [address] [place] [address] Dennis Mora Jr., DO Discharge Disposition: Home or Self Care (Routine Discharge) 10/17/2024 8:45 AM CDT Office Visit [address], [address] [address] Dennis Mora Jr., DO Knee Pain 10/17/2024 Travel from Last 3 Months Immunizations Immunization Administration Dates Next Due Fluzone 6 Months+ Quad (0.5 mL Prefilled Syringe) 05/28/2021 H1N1 2009 Influenza Vaccine 06/04/2009 Influenza (Generic) 01/03/2020, 5,04/29/2013,2011,12/11/2010,01/22/2010,12/13/2008,1 Influenza Adult (Generic) 01/09/2022,10/2021,01/09/2020,2018,01/03/2019,01/28/2018,01/07/2017,1 04/07/2014,01/05/2014 MMR (MMRII) 06/29/2024 Pneumococcal (Pneumovax 23) 03/08/2015 Shingrix 10/30/2020,08/28/2020 Tdap (Generic) 05/12/2022,04/29/2013 Zoster Unspecified Formulation 08/28/2020 Family History Medical History Relation Comments Rheumatoid Arthritis Brother 1 Asthma Brother 2 Cirrhosis Father Asthma Mother Heart Disease Mother Hypertension Mother Asthma Sister 1 Relation Status Comments Brother 1 Alive Brother 2 Alive Father Mother Sister 1 Alive Sister 2 Alive Social History Tobacco Use Types Packs/Day Years Used Date Smoking Tobacco: Former Cigarettes 1 24 1 984 - 04/24/2007 Passive Smoke Exposure: Never Smokeless Tobacco: Former Tobacco Cessation:Counseling Given: Not [...] written material from your doctor or pharmacy? Sometimes 11/30/2024 [facility] Utilities Answer Date Recorded In the past 12 months has th e electric, gas, oil, or water company threatened to shut off services in your home? No 11/30/2024 Humiliation, Afraid, Rape, and Kick questionnair e Answer Date Recorded Within the last year, have y ou been afraid of your partner or ex-partner? No 11/30/2024 Within the last year, have y ou been humiliated or emotionally abused in other ways by your partner or ex-partner? No Within the last year, have y ou been kicked, hit, slapped, or otherwise physically hurt by your partner or ex-partner? No 11/30/2024 Within the last year, have y ou been raped or forced to have any kind of sexual activity by your partner or ex-partner? No 11/30/2024 Overall Financial Resource Strain (CARDIA) Answe r Date Recorded How hard is it for you to pa y for the very basics like food, housing, medical care, and heating? Not hard at all 11/30/2024 [facility] - Occupational Stress Questionnaire Answer Date Recorded Do you feel stress - tense, restless, nervous, or anxious, or unable to sleep at night because your mind is troubled all the time - these days? Not at all 11/30/2024 Exercise Vital Sign Answer Date Recorde d On average, how many days pe r week do you engage in moderate to strenuous exercise (like a brisk walk)? 0 days 11/30/2024 On average, how many minutes do you engage in exercise at this level? 0 min 11/30/2024 Hunger Vital Sign Answer Date Recorded Within the past 12 months, y ou worried that your food would run out before you got the money to buy more. Never true 12/01/19 25 Within the past 12 months, t he food you bought just didn't last and you didn't have money to get more. Never true 11/30/2024 PRAPARE - Transportation Answer Date Re corded In the past 12 months, has l ack of transportation kept you from medical appointments or from getting medications? No 11/21 In the past 12 months, has l ack of transportation kept you from meetings, work, or from getting things needed for daily living? No 11/30/2024 Housing Stability Vital Sign Answer Conner e Recorded In the last 12 months, was t here a time when you were not able to pay the mortgage or rent on time? No 11/30/2024 In the past 12 months, how m any times have you moved where you were living? 0 11/30/2024 At any time in the past 12 m [facility], were you homeless or living in a care home (including now)? No 11/30/2024 Sex and Gender Information Value Date Recorded Sex Assigned at Male 06/30/2024 12:49 PM CDT Legal Sex Male 7:14 PM CDT Gender Identity Not on file Sexual Orientation Not on file Last Filed Vital Signs Vital Sign Reading Time Taken Comments Blood Pressure 142/83 12/14/2024 2:02 PM CDT Pulse 66 12/14/2024 1:34 PM CDT Temperature 37 C (98.6 F) 12/14/2024 1:34 PM CDT Respiratory Rate 16 12/14/2024 1:34 PM CDT Oxygen Saturation 98% 12/14/2024 1:34 PM CDT Inhaled Oxygen Concentration - - Weight 81.2 kg (179 lb) 01/12/2025 9:32 AM CDT Height 182.9 cm (6') 01/12/2025 9:32 AM CDT Body Mass Index 24.28 01/12/2025 9:32 AM CDT Plan of Treatment Upcoming Encounters Date Type Department Care Team (Latest Contact Info) Description 01/27/2025 12:20 PM [facility] [place], [place] [phone] [phone] Daniela Henderson MD [facility] [address] [place], [place] [phone] 01/27/2025 12:20 PM SCIENTIFIC ARTIST - 01/27/2025 12:40 PM [facility] [place] [address] [phone] Daniela Henderson MD [facility] [address] [place] [address] BLOCK SACROILIAC JOINT 02/08/2025 9:00 AM SCIENTIFIC ARTIST Office Visit [facility] Medical Group Multispecialty Care - [facility] [address] [facility], [address] [place] [address] Jennifer Huang, GAYATHRI [address] [facility] [address] [place] [address] Scheduled Procedures Name Priority Associated Diagnoses Date/Ti id BLOCK SACROILIAC JOINT Sacroiliitis 01/27/2025 12:20 PM SCIENTIFIC ARTIST Health Maintenance Due Date Last Done Comments Colorectal Cancer Screening Colonoscopy (10 Years) 1966 Annual Physical 1969 Hepatitis B Vaccines (1 of 3 - 19+ 3-dose series) 1985 Pneumococcal Vaccine: 50+ Years (2 of 2 - PCV) 2016 03/08/2015 PHQ-2 (Physician [place]) 03/23/2024 COVID-19 Vaccine ( - season) 2024 Influenza Adult (#1) 2024 01/09/2022, 05/28/2021, 05/28/2021, Additional history exists DTaP, Tdap and Td Vaccines (3 - Td or Tdap) 05/12/2032 05/12/2022, 04/29/2013 Zoster Vaccines Completed 10/30/2020, 10/2020, 08/28/2020 Hepatitis C Completed 09/04/2022 Hepatitis A Vaccines Aged Out No long er eligible based on patient's age to complete this topic Meningococcal B Vaccine Aged Out No l onger eligible based on patient's age to complete this topic Meningococcal Vaccine Aged Out No ricky jarrett eligible based on patient's age to complete this topic RSV Immunizations Under 20 Months Aged Out No longer eligible based on patient's age to complete this topic Goals Goal Patient Goal Type Associated Problems Recent Progress Patient-Stated? Author Family - family caregiver with be involved in care transitions and discharge planning Lifestyle No Oscar Diterich RN Medical Devices Implanted Type Area Administrative Library Assistant Device Identifier Shelf Expiration Date Model / Serial / Lot Putty Noemy Matrix Dbm/Dbf Bone 3ml - [id number] Implanted:Qty : 1 on 08/10/2023 by Mando Rojas MD at [facility] Bone N/A: Spine Lumbar [employer] [id number] 06/09/2025 [id number] / [id number] / . Putty [place] Matrix Dbm/Dbf Bone l - [id number] Implanted:Qty : 1 on 08/10/2023 by Mando Rojas MD at [facility] Bone N/A: Spine Lumbar [employer] [id number] 06/18/2025 [id number] / [id number] / . Medtronic Anteralign Spinal System Ls Spacer Implanted:Qty : 1 on 08/10/2023 by Mando Rojas MD at [facility] Cage N/A: Spine Lumbar [employer] [id number] 08/02/2029 [id number] / / [id number] Description:L5-S1 37 Mm Plate Implanted:Qty : 1 on 08/10/2023 by Mando Rojas MD at [facility] Plate N/A: Spine Lumbar [employer] . [id number] / / . 6.5 X 30 Mm Screw Implanted:Qty : 4 on 08/10/2023 by Mando Rojas MD at [facility] Screw N/A: Spine Lumbar [employer] . [id number] / / . Graft Soft Tissue 4x4cm Nush[place] Allograft - [id number] Implanted:Qty : 1 on 08/10/[facility] Tissue N/A: Spine Lumbar NUTECH 01/20/2028 [id number] / [id number] / Explanted Type Area Administrative Library Assistant Device Identifier Shelf Expiration Date Model / Serial / Lot 4.75 X 30 Mm Rods Implanted:Qty : 2 on 08/10/2023 by Mando Rojas MD at [facility] Explanted:Qty : 2 on 11/30/2024 by Mando Rojas MD at [facility] Andres N/A: Spine Lumbar [employer] . [id number] / / . 7.5 X 40 Mm Screws Implanted:Qty : 4 on 08/10/2023 by Mando Rojas MD at [facility] Explanted:Qty : 4 on 11/30/2024 by Mando Rojas MD at [facility] Screw N/A: Spine Lumbar [employer] . [id number] / / . Voyager Set Screws Implanted:Qty : 4 on 08/10/2023 by Mando Rojas MD at [facility] Explanted:Qty : 4 on 11/30/2024 by Mando Rojas MD at [facility] N/A: Spine Lumbar [employer] . [id number] / / . Procedures Procedure Name Priority Date/Time Associated Diagnosis Comments REMOVE SPINE FIX ALENA BEYERGARCIA 11/30/2024 9:57 AM CDT PAIN FROM IMPLANTED HARDWARE, STATUS POST LUMBAR FUSION T84.84, Z98.1 Case Notes SCHED BY FAX ON 09/21/24 BARBARA PRETEST ON 11/17 AT 1300 TYPE & SCREEN Routine 11/17/2024 1:49 PM CDT Pain from implanted hardware Status post lumbar spinal fusion NICOTINE SCREEN URINE Routine 11/17/2024 1:49 PM CDT Pain from implanted hardware Status post lumbar spinal fusion PARTIAL THROMBOPLASTIN TIME,PTT Routine 11/17/2024 1:49 PM CDT Pain from implanted hardware Status post lumbar spinal fusion PROTHROMBIN TIME, VENOUS Routine 11/17/2024 1:49 PM CDT Pain from implanted hardware Status post lumbar spinal fusion HC URINALYSIS AUTO W/O MICRO Routine 11/17/2024 1:49 PM CDT Pain from implanted hardware Status post lumbar spinal fusion BASIC METABOLIC PANEL Routine 11/17/2024 1:49 PM CDT Pain from implanted hardware Status post lumbar spinal fusion CBC W/DIFF AUTOMATED Routine 11/17/2024 1:49 PM CDT Pain from implanted hardware Status post lumbar spinal fusion MRSA SCREENING Routine 11/17/2024 1:48 PM CDT Pain from implanted hardware Status post lumbar spinal fusion URINE BACTERIA CULTURE Routine 11/17/2024 1:48 PM CDT Pain from implanted hardware Status post lumbar spinal fusion MRI KNEE RT WO CON Routine 11/01/2024 3: 01 PM CDT Chronic pain of right knee XR KNEE RT MIN 4V Routine 10/17/2024 9:4 0 AM CDT Primary osteoarthritis of right knee from Last 3 Months Results * NICOTINE SCREEN URINE (11/17/2024 1:49 PM CDT) NICOTINE (U) 183 ng/mL 11/23/2024 12:46 PM CDT [employer] [facility] COTININE (U) 1,285 ng/mL 11/23/2024 12:46 PM CDT [employer] [facility] Comment: THIS RESULT HAS BEEN VERIFIED BY REPEAT ANALYSIS. Reference Range: Nicotine, Urine Smokers: 200-700 ng/mL Nonsmokers: < or = 17 ng/mL Cotinine, Urine Smokers: 300-1300 ng/mL Nonsmokers: < or = 20 ng/mL Individuals exposed to second-hand or passive tobacco smoke may demonstrate concentrations of nicotine and cotinine greater than those indicated for non-smokers. This test was developed and its analytical performance characteristics have been determined by [facility] [place], [place]. It has not been cleared or approved by the U.S. Food and Drug Administration. This assay has been validated pursuant to the CLIA regulations and is used for clinical purposes. Test Performed by [facility], [facility], [address] [place], [place] Zacarias Carlson M.D., Ph.D., Director of Laboratories , CLIA [id number] URINE SPECIMEN / Unknown 11/17/2024 1:49 PM CDT us Mando Rojas MD URINE ORDERABLES Final Resu lt [facility] [place] [id number] [place], [place] , [place] [phone] * TYPE & SCREEN (11/17/2024 1:49 PM CDT) ABO/RH A POSITIVE 11/17/2024 3:15 PM CDT [facility] ANTIBODY SCREEN NEGATIVE 11/17/2024 3:15 PM CDT [facility] SAMPLE EXPIRATION 12/03/2024,2 359 11/30/2024 9:24 AM CDT [facility] BB COMMENT NO HISTORY OF TRANSFUSIONS , OR ANTIBODIES, NEW SPECIMEN NOT NEEDED 11/30/2024 9:24 AM CDT [facility] 11/17/2024 1:49 PM CDT us Mando Rojas MD BLOOD BANK TEST ORDERABLES Final Result [facility] [address] [place] [address], [place] [phone] * URINALYSIS (11/17/2024 1:49 PM CDT) SPECIMEN TYPE URINE CLEAN CATCH 11/17/2024 1:25 PM CDT [facility] COLOR (U) COLORLESS 11/17/2024 2:18 PM CDT [facility] TRANSPARENCY CLEAR 11/17/2024 2:18 PM CDT [facility] SPECIFIC GRAVITY (U) 1.002 1.001 - 1.030 11/17/2024 2:18 PM CDT [facility] U PH 7.5 5.0 - 9.0 11/17/2024 2:18 PM CDT [facility] LEUKOCYTES (U) NEGATIVE NEGATIVE 11/17/2024 2:18 PM CDT [facility] NITRITES NEGATIVE NEGATIVE 11/17/2024 2:18 PM CDT [facility] PROTEIN RANDOM (U) NEGATIVE <30 MG/DL 11/17/2024 2:18 PM CDT [facility] GLUCOSE (U) NORMAL NORMAL MG/DL 11/17/2024 2:18 PM CDT [facility] KETONES MG/DL (U) NEGATIVE NEGATIVE MG/DL 11/17/2024 2:18 PM CDT [facility] UROBILINOGEN NORMAL NORMAL MG/DL 11/17/2024 2:18 PM CDT [facility] BILIRUBIN (U) NEGATIVE NEGATIVE MG/DL 11/17/2024 2:18 PM CDT [facility] BLOOD (U) NEGATIVE NEGATIVE 11/17/2024 2:18 PM CDT [facility] URINE SPECIMEN OBTAINED BY CLEAN CATCH PROCEDURE / Unknown 11/17/2024 1:49 PM CDT us Mando Rojas MD URINE ORDERABLES Final Resu lt Performing Organization Address City/[facility] Hospital/ZIP Co de Phone Number [facility] [address] [place] [address], [place] [phone] * PARTIAL THROMBOPLASTIN TIME,PTT (11/17/2024 1:49 PM CDT) PTT 30.4 25.1 - 36.5 SEC 11/17/2024 2:52 PM CDT [facility] 11/17/2024 1:49 PM CDT us Mando Rojas MD LABORATORY Final Resul t Performing Organization Address [facility] Co de Phone Number [facility] [address] [place] [address], [place] [phone] * PROTIME/INR, VENOUS (11/17/2024 1:49 PM CDT) PROTIME 11.5 10.2 - 12.9 SEC 11/17/2024 2:52 PM CDT [facility] INR 1.0 11/17/2024 2:52 PM CDT [facility] Comment: Recommended INR Therapeutic Goals: 2.0-3.0 Routine Therapy 2.5-3.5 Mechanical Prosthetic Valves (High Risk) 11/17/2024 1:49 PM CDT us Mando Rojas MD LABORATORY Final Resul t Performing Organization Address City/[facility]/ZIP Co de Phone Number [address] [address], [place] [phone] * (ABNORMAL) BASIC METABOLIC PANEL (11/17/2024 1:49 PM CDT) [facility] GLUCOSE 100(H) 70 - 99 MG/DL 11/17/2024 2:47 PM T [facility] BUN 5(L) 7 - 18 MG/DL 11/17/2024 2:47 PM T [facility] CREATININE S/P/B 1.06 0.7 - 1.3 MG/DL 11/17/2024 2:47 PM T [facility] SODIUM S/P/B 139 136 - 145 MMOL/L 11/17/2024 2:47 PM T [facility] POTASSIUM S/P/B 3.8 3.5 - 5.1 MMOL/L 11/17/2024 2:47 PM T [facility] CHLORIDE S/P/B 104 97 - 115 MMOL/L 11/17/2024 2:47 PM T [facility] CO2 33.5(H) 21 - 32 MMOL/L 11/17/2024 2:47 PM T [facility] CALCIUM S/P/B 9.8 8.5 - 10.1 MG/DL 11/17/2024 2:47 PM T [facility] ANION GAP 1.5(L) 2 - 10 MMOL/L 11/17/2024 2:47 PM T [facility] BUN CREATININE RATIO 4.7(L) 6 - 26 11/17/2024 2:47 PM T [facility] GFR ESTIMATE 81(L) >90 ML/MIN/1.7 3 M2 11/17/2024 2:47 PM [facility] Comment: NOTE: eGFR is not calculated for patients <18 years of age or gender unknown. This is an estimated GFR calculation using the new CKD EPI creatinine equation without race and so does not require a correction factor for race. This estimated GFR should not be used for calculating drug doses. 11/17/2024 1:49 PM CDT us Mando Rojas MD LABORATORY Final Resul t [facility] [address] [place] [address], [place] [phone] * (ABNORMAL) CBC W/DIFF AUTOMATED (11/17/2024 1:49 PM CDT) Pathologist [facility] WBC 9.59 4.5 - 11.0 x10'3/uL 11/17/2024 2:30 PM CDT [facility] RBC 4.73 4.70 - 6.10 x10'6/uL 11/17/2024 2:30 PM CDT [facility] HGB 14.8 14.0 - 18.0 G/DL 11/17/2024 2:30 PM CDT [facility] HCT 42.8(L) 43.0 - 54.0 % 11/17/2024 2:30 PM CDT [facility] MCV 90.5 80.0 - 94.0 FL 11/17/2024 2:30 PM CDT [facility] MCH 31.3(H) 27.0 - 31.0 PG 11/17/2024 2:30 PM CDT [facility] MCHC 34.6 32.0 - 36.0 G/DL 11/17/2024 2:30 PM CDT [facility] RDW 12.5 11.5 - 14.5 % 11/17/2024 2:30 PM CDT [facility] PLT 275 130 - 400 x10'3/uL 11/17/2024 2:30 PM CDT [facility] MPV 11.9 9.3 - 12.2 FL 11/17/2024 2:30 PM CDT [facility] DIFFERENTIAL TYPE AUTOMATED DIFFERENTIAL 11/17/2024 2:30 PM CDT [facility] NEUTROPHILS % 72.4 % 11/17/2024 2:30 PM CDT [facility] LYMPHOCYTES % 15.3 % 11/17/2024 2:30 PM CDT [facility] MONOCYTES % 9.6 % 11/17/2024 2:30 PM CDT [facility] EOSINOPHILS 1.9 % 11/17/2024 2:30 PM CDT [facility] BASOPHILS 0.5 % 11/17/2024 2:30 PM CDT [facility] IMMATURE GRANS % 0.3 % 11/18/19 2:30 PM CDT [facility] ABS. NEUTROPHILS 6.94 1.80 - 7.70 x10'3/uL 11/17/2024 2:30 PM CDT [facility] ABS. LYMPHOCYTES 1.47 1.00 - 4.80 x10'3/uL 11/17/2024 2:30 PM CDT [facility] ABS. MONOCYTES 0.92(H) 0.30 - 0.82 x10'3/uL 11/17/2024 2:30 PM CDT [facility] ABS. EOSINOPHILS 0.18 0.04 - 0.54 x10'3/uL 11/17/2024 2:30 PM CDT [facility] ABS. BASOPHILS 0.05 0.01 - 0.08 x10'3/uL 11/17/2024 2:30 PM CDT [facility] ABS. IMMATURE GRANULOCYTES 0.03 0.00 - 0.49 x10'3/uL 11/17/2024 2:30 PM CDT [facility] 11/17/2024 1:49 PM CDT us Mando Rojas MD LABORATORY Final Resul t [facility] [address] [place] [address], [place] [phone] * MRSA SCREENING (11/17/2024 1:48 PM CDT) SPEC DESCRIPTION NASAL 11/17/2024 1:25 PM CDT [facility] SPECIAL REQUESTS NO SPECIAL REQUEST 11/17/2024 1:25 PM CDT [facility] CULTURE RESULT NO METHICILLIN RESISTANT STAPHYLOCOCCUS AUREUS ISOLATED 11/18/2024 12:03 PM CDT [facility] SPECIMEN FROM INTERNAL NOSE / Unknown 11/17/2024 1:48 PM CDT 11/17/2024 1:49 PM CDT Mando Rojas MD MICROBIOLOGY - GENERAL [facility] Final Result [facility] [address] [place] [address], [place] [phone] * URINE BACTERIA CULTURE (11/17/2024 1:48 PM CDT) SPEC DESCRIPTION URINE CLEAN CATCH 11/17/2024 1:25 PM CDT [facility] SPECIAL REQUESTS NO SPECIAL REQUEST 11/17/2024 1:25 PM CDT [facility] CULTURE RESULT NO GROWTH 2 DAYS 11/19/2024 7:14 AM CDT [facility] URINE SPECIMEN OBTAINED BY CLEAN CATCH PROCEDURE / Unknown 11/17/2024 1:48 PM CDT 11/17/2024 1:49 PM CDT us Mando Rojas MD MICROBIOLOGY - GENERAL SANDRA GUTHRIE Final Result [facility] [address] [place] [address], * MRI KNEE RT WO CON (11/01/2024 3:01 PM CDT) Anatomical Region Laterality Modality Knee Magnetic Resonan ce 11/09/2024 9:22 AM CDT Impressions 11/09/2024 9:32 AM CDT IMPRESSION: 1. Relatively persistent linear increased signal involving the undersurface of the body and posterior horn of the medial meniscus. There is slightly increased irregularity along the undersurface of the posterior horn of the medial meniscus with slightly deficient meniscal tissue compared to the prior examination, suggestive of prior meniscectomy changes but nonspecific for new tearing. 2. Mild osteoarthritic changes of the knee. 3. Focal area of heterogeneous signal within the joint space along the synovial lined portion of Hoffa's fat pad, indeterminate for a small focal area of synovitis or heterogeneous cartilaginous fragment. 4. Mild nonspecific soft tissue edema in the popliteal fossa behind the distal femur. Referred By: DENNIS PEREZ V Interpreted By: Cecilio Herrera MD, 11/09/2024 9:22 AM Narrative 11/09/2024 9:32 AM CDT [place] [id number] [place] [address] MRI of the right knee without contrast Exam Date: 11/01/2024 History: Chronic right knee pain. Reported history of 3 prior right knee surgeries, unspecified type. Comparison Studies: Right knee radiograph on 10/17/2024. MRI of the right knee without contrast on 10/21/2023 TECHNIQUE: Multiplanar, multisequence MR imaging was performed without intravenous contrast, according to routine protocol without complication. FINDINGS: * Menisci: Relatively persistent linear increased signal involving the undersurface of the body and posterior horn of the medial meniscus. There is slightly increased irregularity along the undersurface of the posterior horn of the medial meniscus with slightly deficient meniscal tissue compared to the prior examination, suggestive of prior meniscectomy changes nonspecific for new tearing. The lateral meniscus is intact. * Ligaments: The ACL and PCL are intact. * Synovial complex are intact. * Extensor Mechanism: The quadriceps and patellar tendons are intact. * Joint: There is physiologic fluid in the joint space without convincing evidence of synovitis or a discrete intra-articular body. Focal area of heterogeneous signal within the joint space along the synovial lined portion of Hoffa's fat pad, indeterminate for a small focal area of synovitis or heterogeneous cartilaginous fragment. There are overall mild osteoarthritic changes of the knee. No significant Deng's cyst. * Articular Cartilage: The patellofemoral articular cartilages mildly thinned with areas of partial-thickness fissuring involving the medial patellar facet and trochlea. There is mild to moderate thinning involving both the medial and lateral compartment articular cartilage in the weightbearing portions. There are areas of full-thickness fissuring with underlying marrow reactive change. There is a slightly more prominent cartilaginous defect which is slightly irregular and favored partial thickness involving the lateral tibial plateau measuring about 3 x 5 mm. These findings are similar mildly progressed from the prior exam. * Miscellaneous: No bone marrow edema or fracture. Mild nonspecific soft tissue edema in the popliteal fossa behind the distal femur. The popliteal neurovascular structures are grossly unremarkable. Mild degenerative changes of the proximal tib-fib joint. Procedure Note Cecilio Herrera MD - 11/09/[address] [place] [address] MRI of the right knee without contrast Exam Date: 11/01/2024 History: Chronic right knee pain. Reported history of 3 prior right kneesurgeries, unspecified type. Comparison Studies: Right knee radiograph on 10/17/2024. MRI of the rightknee without contrast on 10/21/2023 TECHNIQUE: Multiplanar, multisequence MR imaging was performed withoutintravenous contrast, according to routine protocol withoutcomplication. FINDINGS: * Menisci: Relatively persistent linear increased signal involving theundersurface of the body and posterior horn of the medial meniscus. Thereis slightly increased irregularity along the undersurface of the posteriorhorn of the medial meniscus with slightly deficient meniscal tissuecompared to the prior examination, suggestive of prior meniscectomychanges nonspecific for new tearing. The lateral meniscus is intact. * Ligaments: The ACL and PCL are intact. * Synovial complex are intact. * Extensor Mechanism: The quadriceps and patellar tendons are intact. * Joint: There is physiologic fluid in the joint space without convincingevidence of synovitis or a discrete intra-articular body. Focal area ofheterogeneous signal within the joint space along the synovial linedportion of Hoffa's fat pad, indeterminate for a small focal area ofsynovitis or heterogeneous cartilaginous fragment. There are overall mildosteoarthritic changes of the knee. No significant Deng's cyst. * Articular Cartilage: The patellofemoral articular cartilages mildlythinned with areas of partial-thickness fissuring involving the medialpatellar facet and trochlea. There is mild to moderate thinning involvingboth the medial and lateral compartment articular cartilage in theweightbearing portions. There are areas of full- thickness fissuring withunderlying marrow reactive change. There is a slightly more prominentcartilaginous defect which is slightly irregular and favored partialthickness involving the lateral tibial plateau measuring about 3 x 5 mm.These findings are similar mildly progressed from the prior exam. * Miscellaneous: No bone marrow edema or fracture. Mild nonspecific softtissue edema in the popliteal fossa behind the distal femur. The poplitealneurovascular structures are grossly unremarkable. Mild degenerativechanges of the proximal tib-fib joint. IMPRESSION: 1. Relatively persistent linear increased signal involving theundersurface of the body and posterior horn of the medial meniscus. Thereis slightly increased irregularity along the undersurface of the posteriorhorn of the medial meniscus with slightly deficient meniscal tissuecompared to the prior examination, suggestive of prior meniscectomychanges but nonspecific for new tearing. 2. Mild osteoarthritic changes of the knee. 3. Focal area of heterogeneous signal within the joint space along thesynovial lined portion of Hoffa's fat pad, indeterminate for a small focalarea of synovitis or heterogeneous cartilaginous fragment. 4. Mild nonspecific soft tissue edema in the popliteal fossa behind thedistal femur. Referred By: DENNIS PEREZ V Interpreted By: Cecilio Herrera MD, 11/09/2024 9:22 AM us Dennis Mora Jr., DO MRI Final Re sult * XR KNEE RT MIN 4V (10/17/2024 9:40 AM CDT) Anatomical Region Laterality Modality Knee Radiographic Taylor ging 10/18/2024 9:3 5 AM CDT Impressions 10/18/2024 11:33 AM CDT IMPRESSION: 1. No radiographic evidence of fracture or dislocation is visualized. 2. Mild osteoarthritic changes of both knees. The attending radiologist has reviewed the image(s) and agrees with the content of this report. Ordered By: DENNIS PEREZ V Interpreted By: Reese Adan MD, 10/18/2024 9:35 AM Narrative 10/18/2024 11:33 AM CDT [address] [place] [address] EXAMINATION: XR KNEE RT MIN 4V EXAM [...] Procedure Note Steve Armstrong MD - 10/18/[address] 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 Advance Directives and Living Will 11/14/2022 3:10 PM 03/10/19 DURABLE [facility] OF MAINTENA[employer]CE MECHANIC TELEPHONE FOR HEALTH CARE * Full Code (Latest Code Status on File) Date Activated Date Inactivated Comments 11/30/2024 2:51 PM 12/01/2024 4:52 PM * Full Code Date Activated Date Inactivated Comments 08/10/2023 4:08 PM 08/14/2023 3:20 PM * Full Code Date Activated Date Inactivated Comments 03/27/2023 5:58 PM 04/17/2023 9:27 AM * Full Code Date Activated Date Inactivated Comments 03/07/2023 1:56 PM 03/17/2023 10:32 AM * Full Code Date Activated Date Inactivated Comments 05/25/2021 9:34 PM 05/29/2021 7:00 PM Care Teams Manager Test Relationship Specialty Start Date End Date Kevin Meyer PA [address] [place] [address] PCP - General PHYSICIAN HOUSEKEEPING/LAUNDRY SUPERVISOR 11/17/24 Jorden Serrano MD [address] [facility] [address] [place] [id number] HEMATOLOGY/ONCOLOGY 11/17/24 Dennis Mora Jr., [address] [place] [address] Physician ORTHOPAEDIC SURGERY 11/17/24 Min Mario MD 2 [facility] [address] [place] [address] UROLOGY 11/17/24 Sona Babin NP [address] [facility] [address] [place] [phone] Nurse Practitioner Psych/Mental Health 11/17/24
--- OUTSIDE RECORDS SUMMARY | 2025-01-16 14:05 | XMS_ITS | Encounter Summary ---
Author Organization [facility] Address On license of [facility] [place] [address] Care Team Providers Care Steam Trap Man Name Role Phone Kevin Meyer Primary Care Provider [phone] Jorden Serrano MD Unavailable [phone] Morgan Galvan DO, George V Unavailable [phone] Min Mario MD Unavailable Sona Babin NP Unavailable [phone] Encounter Details Date Type Department Care Team (Latest Contact Info) Description 12/14/[address] [facility] [place] [address] [id number] [facility] Ref[facility] Social History Tobacco Use Types Packs/Day Years Used Date Smoking Tobacco: Former Cigarettes 1 24 1 984 - 04/24/2007 Passive Smoke Exposure: Never Smokeless Tobacco: Former Comments:No tabbacco use sin [...] from your doctor or pharmacy? Sometimes 11/30/2024 [facility] Utilities Answer Date Recorded In the [...] and heating? Not hard at all 11/30/2024 [facility] of Occupat ional Health - Occupational Stress [...] any time in the past 12 m [facility], were you homeless or living in a longterm (including now)? No 11/30/2024 Sex and Gender Information Value Date Recorded Sex Assigned at Male 06/30/2024 12:49 PM CDT Legal Sex Male 7:14 PM CDT Gender Identity Not on file Sexual Orientation Not on file documented as of this encounter Functional Status * Are you deaf or do you have serious difficulty hearing Answer Date of Assessment Author Status No 11/30/2024 2:59 PM MINOOT Leonora Vanessa RN Active * Are you blind or do you have serious difficulty seeing, even when wearing glasses? Answer Date of Assessment Author Status No 11/30/2024 2:59 PM MINOOT Leonora Vanessa RN Active * Do you have serious difficulty walking or climbing stairs? Answer Date of Assessment Author Status No 11/30/2024 2:59 PM MINOOT Leonora Vanessa RN Active * Do you have difficulty dressing or bathing? Answer Date of Assessment Author Status No 11/30/2024 2:59 PM MINOOT Leonora Vanessa RN Active * Because of a physical, mental, or emotional condition, do you have difficulty doing errands alone such as visiting a doctor's office or shopping? Answer Date of Assessment Author Status No 11/30/2024 2:59 PM Leonora Goldman RN Active documented as of this encounter Mental Status * Because of a physical, mental, or emotional condition, do you have serious difficulty concentrating, remembering, or making decisions? Answer Entry Date Author Status No 11/30/2024 2:59 PM CDT Leonora Vanessa RN Active documented in this encounter Plan of Treatment Upcoming Encounters Date Type Department Care Team (Latest Contact Info) Description 01/27/2025 12:20 PM AMBULATORY CARE NURSE Hospital Encounter [facility] Interventional Pain [place] [address] [id number] Daniela Henderson MD [address] [facility] [address] [place] [address] 01/27/2025 12:20 PM AMBULATORY CARE NURSE - 01/27/2025 12:40 PM AMBULATORY CARE NURSE Surgery [facility] Interventional [facility] [place] [address] [id number] Daniela Henderson MD [address] [facility] [address] [place] [address] BLOCK SACROILIAC JOINT 02/08/2025 9:00 AM AMBULATORY CARE NURSE Office Visit [facility] Multis[facility] - [facility] [address] [facility], [address] [place] [address] Jennfier Huang APRN [address] [facility] [address] [place] [address] Scheduled Procedures Name Priority Associated Diagnoses Date/Ti me BLOCK SACROILIAC JOINT Sacroiliitis 01/27/2025 12:20 PM AMBULATORY CARE NURSE documented as of this encounter Goals Goal Patient Goal Type Associated Problems Recent Progress Patient-Stated? Author Family - family caregiver with be involved in care transitions and discharge planning Lifestyle No Oscar Dietrich RN documented as of this encounter Visit Diagnoses Not on filedocumented in this encounter Care Teams Steam Trap Man Relationship Specialty Start Date End Date Kevin Meyer PA [address] [place] [address] PCP - General PHYSICIAN SYRUP BLENDER 11/17/24 Jorden Serrano MD [address] [facility] [address] [place] [address] HEMATOLOGY/ONCOLOGY 11/17/24 Keny Mora Jr., DO [address] [place] [address] Physician ORTHOPAEDIC SURGERY 11/17/24 Min Mario MD 2 [facility] [address] [place] [address] UROLOGY 11/17/24 Sona Babin NP [address] [facility] 3 [place] [address] Nurse Practitioner Psych/Mental Health 11/17/24 documented as of this encounter
[2025-01-16 15:29] LABS: Hematocrit 41.4 % (42.0-52.0); Hemoglobin 14.0 g/dL (14.0-18.0); Immature Granulocyte Percent A 0.2 % (0-0.5); Lymphocytes Absolute Auto 1.47 K/mm3 (0.9-3.2); Mean Corpuscular HGB Conc 33.8 g/dl (32-36); Mean Corpuscular Hemoglobin 30.3 pg (26-34); Mean Corpuscular Volume 89.6 fl (80-100); Nucleated Red Blood Cells Absolute Auto 0.000 K/mm3 (0.0-0.012); Nucleated Red Blood Cells Perc 0.0 % (0.0-0.2); Platelet Count Result 211 k/mm3 (150-375); Red Blood Count 4.62 M/mm3 (4.6-6.20); White Blood Count 9.5 K/mm3 (4.5-10.0)
== END 2025-01-16 12:37 | disposition home or self-care (01) ==
PROVIDERS: PCP Physician Assistant; Visit Provider Internal Medicine Hematology & Oncology
DX: C7A.022 Malignant carcinoid tumor of the ascending colon (principal); R91.8 Other nonspecific abnormal finding of lung field
CPT/HCPCS: 36415; 71260; 74177; 84260; 85025; 86316; Q9967